=== PATIENT | female | born 1935 | race Caucasian/White ===

== ENCOUNTER 2021-06-10 09:24 | Emergency (ER) | payer MEDICARE, SELFPAY ==
--- NOTE | ~2021-06-10 | XR_ITS ---
EXAMINATION: XR chest 2V DATE: 06/10/2021 09:59 INDICATION: Weakness TECHNIQUE: frontal and lateral views of the chest were obtained. COMPARISON: None FINDINGS: Mild biapical pleural-parenchymal scarring. No focal airspace opacities, pulmonary edema, pleural eff usion or pneumothorax. The cardiomediastinal silhouette is within normal limits accounting for AP larry hnique and mild rightward rotation of the patient. Atherosclerotic aorta. Surgical clip in the upper abdomen. Mild thoracolumbar spondylosis. IMPRESSION: 1. No acute cardiopulmonary disease. Reviewed, dictated and finalized at location B. ECTOR ALUMINUM BOAT
[2021-06-10 09:33] VITALS: PULSE 68; RESP 18; TEMP 36.9; O2SAT 98
--- NOTE | 2021-06-10 09:35 | ECG_ITS ---
Measurements Intervals [place] Rate: 67 P: 86 ID: [id number] QRS: -31 QRSD: 120 T: -78 QT: 411 QTc: 434 Interpretive Statements SINUS RHYTHM WITH FIRST DEGREE AV BLOCK ATRIAL AND VENTRICULAR PREMATURE COMPLEXES LEFT AXIS DEVIATION INTRAVENTRICULAR CONDUCTION DELAY LEFT VENTRICULAR HYPERTROPHY WITH ST-T CHANGE BORDERLINE ST-T WAVE ABNORMALITY- INF/LAT LEADS BASELINE ARTIFACT- V5 ABNORMAL ECG Electronically Signed On 06-10-2021 10:17:43 SHEET METAL ROOFER by Kendrick Frances D.O.
[2021-06-10 09:50] LABS: Basophils Percent Auto 0.8 % (0.2-1.2); Eosinophils Absolute Auto 0.3 K/mm3 (0-0.3); Eosinophils Percent Auto 5.1 % (0-4.4); Hematocrit 40.3 % (37.0-47.0); Hemoglobin 12.7 g/dL (12.0-15.0); Immature Granulocyte Absolute 0.03 K/mm3 (0.00-0.031); Immature Granulocyte Percent A 0.6 % (0-0.5); Lymphocytes Absolute Auto 0.69 K/mm3 (0.9-3.2); Mean Corpuscular HGB Conc 31.5 g/dl (32-36); Mean Corpuscular Hemoglobin 29.1 pg (26-34); Mean Corpuscular Volume 92.4 fl (80-100); Mean Platelet Volume 12.6 fl (7.4-10.4); Monocytes Absolute Auto 0.9 K/mm3 (0.1-0.6); Monocytes Percent Auto 17.8 % (2.6-8.5); Neutrophils Absolute Auto 3.3 K/mm3 (1.3-6.7); Neutrophils Percent Auto 62.7 % (45.5-73.1); Platelet Count Result 138 k/mm3 (150-375); Red Blood Count 4.36 M/mm3 (4.2-5.4); Red Cell Distribution Width 13.7 % (11.5-14.5); White Blood Count 5.3 K/mm3 (4.5-10.0)
[2021-06-10 10:07] LABS: Alanine Aminotransferase 19 U/L (4-35); Albumin Level 4.3 g/dL (3.5-5.1); Alkaline Phosphatase 65 U/L (38-126); Anion Gap 10 mmol/L (8-16); Aspartate Amino Transferase 25 U/L (14-36); Bilirubin,Total 0.3 mg/dL (0.2-1.3); Blood Urea Nitrogen 67 mg/dL (7-17); Calcium 9.6 mg/dL (8.4-10.2); Carbon Dioxide 33 mmol/L (22-30); Chloride 93 mmol/L (98-107); Estimated Glomerular Filt Rate 11; Glucose 94 mg/dL (65-110); Potassium 5.9 mmol/L (3.4-5.0); Sodium 136 mmol/L (137-145)
[2021-06-10 11:56] VITALS: PULSE 70
--- NOTE | 2021-06-10 11:56 | PC.NURSE ---
straight cath performed under sterile technique, well tolerated.
[2021-06-10 12:10] LABS: Add Urine Microscopic? YES; Appearance Urine Clear (Clear); Bilirubin Urine Negative (Negative); Blood Urine Negative (Negative); Color Urine Yellow (Yellow); Glucose Urine UA Negative (Negative); Ketones Urine Negative (Negative); Leukocyte Esterase Ur Negative LEU/UL (Negative); Mucus Urine Rare /lpf; Nitrate Urine Negative (Negative); Protein Urine 1+ mg/dL (Negative); Specific Grav Ur 1.011 (1.001-1.035); Urobilinogen Urine Negative mg/dL (<2.0)
--- NOTE | 2021-06-10 13:49 | PC.NURSE ---
[facility] called and patients appointment was rescheduled for 9 am tomorrow morning. transportation arranged and family notified
--- NOTE | 2021-06-10 14:46 | ED.GENADULT ---
HPI - General Adult General Chief complaint: Weakness Stated complaint: WEAKNESS Time Seen by Provider: 06/10/21 09:29 History of Present Illness HPI narrative: Patient is an 86-year-old female who presents ER from home with generalized weakness and fatigue. Began earlier today. She has not missed any dialysis. No orthopnea. No runny nose or sore throat or productive cough. No loss of taste or smell. Unsure if she has gotten her Covid vaccine. She sees Dr. Quintero who is pastry sous chef at [facility]. She typically gets her dialysis at [facility] in [place]. Related Data Allergies Allergy/AdvReac Type Severity Reaction Status Date / Time No Known Allergies Allergy Verified 06/10/21 09:35 Review of Systems Review of Systems: All systems reviewed & are unremarkable except as noted in HPI and below Constitutional: Constitutional: Denies chills, Reports fatigue, Denies fever(s) and Reports weakness ENT: Denies nasal congestion and Denies sore throat Cardiovascular: Cardiovascular: Denies chest pain and Denies radiating jaw, neck or arm pain Respiratory: Respiratory: Denies cough, Denies dyspnea and Denies wheezing Gastrointestinal: Gastrointestinal: Denies abdominal pain, Denies nausea and Denies vomiting Musculoskeletal: Musculoskeletal: Denies back pain and Denies muscle cramps PMFSH Past Medical History Medical History (Updated 06/10/21 @ 15:01 by Landry Miller MD) Diabetes Dialysis patient HTN (hypertension) Surgical History Surgical History (Updated 06/10/21 @ 14:53 by Landry Miller MD) History of vascular surgery dialysis access LUE Social History Social History (Updated 06/10/21 @ 14:53 by Landry Miller MD) Smoking status: Never smoker Exam Narrative: GENERAL: Frail-appearing, well-nourished, and in no acute distress. HEAD: Normocephalic, atraumatic. ENT: Mucous membranes moist. NECK: Supple. CHEST: Clear to auscultation. No respiratory distress. HEART: Regular rate and rhythm. Normal peripheral pulses. ABDOMEN: Soft, nontender, nondistended EXTREMITIES: Normal range of motion. No edema. SKIN: Warm, dry, no rash. NEURO: Alert and oriented x3. PSYCH: Normal mood and affect. Course Course Emergency Course: Patient up and ambulatory. Unremarkable work-up with exception of some mild hyperkalemia. Discussed case with patient's pastry sous chef at [facility]. He is okay with patient following up for dialysis tomorrow morning at 9 AM. Discussed that elevated potassium, he recommended that Lokelma could be given. This drug is not available at our facility. Will give a dose of kayexalate. Vital Signs Vital signs: Vital Signs Temperature 98.4 F 06/10/21 09:33 Pulse Rate 68 06/10/21 09:33 Respiratory Rate 18 06/10/21 09:33 Pulse Oximetry 98 06/10/21 09:33 Temperature 98.4 F 06/10/21 09:33 Pulse Rate 70 06/10/21 11:56 Respiratory Rate 18 06/10/21 09:33 Pulse Oximetry 98 06/10/21 09:33 Medical Decision Making Vital Signs Vital Signs: Vital Signs Temperature 98.4 F 06/10/21 09:33 Pulse Rate 68 06/10/21 09:33 Respiratory Rate 18 06/10/21 09:33 Pulse Oximetry 98 06/10/21 09:33 Temperature 98.4 F 06/10/21 09:33 Pulse Rate 70 06/10/21 11:56 Respiratory Rate 18 06/10/21 09:33 Pulse Oximetry 98 06/10/21 09:33 Lab Data Result diagrams: 06/10/21 09:45 06/10/21 09:45 Labs: Lab Results 06/10/21 06/10/21 06/10/21 Range/Units 09:45 09:45 11:54 WBC 5.3 (4.5-10.0) K/mm3 RBC 4.36 (4.2-5.4) M/mm3 Hgb 12.7 D (12.0-15.0) g/dL Hct 40.3 (37.0-47.0) % MCV 92.4 (80-100) fl MCH 29.1 (26-34) pg MCHC 31.5 L (32-36) g/dl RDW 13.7 (11.5-14.5) % Plt Count 138 L (150-375) k/mm3 MPV 12.6 H (7.4-10.4) fl Immature Gran % (Auto) 0.6 H (0-0.5) % Neut % (Auto) 62.7 (45.5-73.1) % Lymph % (Auto) 13.0 L (18.3-44.2) % [place] %
[2021-06-10] MEDS: SODIUM POLYSTYRENE SULFONONATE 15 GM/60 ML BTL PO (15:10)
[2021-06-10 15:33] VITALS: BP 142/70; PULSE 76; RESP 18; O2SAT 99
== END 2021-06-10 15:35 | disposition home or self-care (01) ==
PROVIDERS: Emergency Provider Emergency Medicine
DX: R53.1 Weakness (principal); E87.5 Hyperkalemia; I10 Essential (primary) hypertension; E11.9 Type 2 diabetes mellitus without complications; Z99.2 Dependence on renal dialysis; I44.0 Atrioventricular block, first degree; I49.3 Ventricular premature depolarization; I49.1 Atrial premature depolarization; I45.9 Conduction disorder, unspecified; I51.7 Cardiomegaly; R94.31 Abnormal electrocardiogram [ECG] [EKG]
CPT/HCPCS: 36415; 51701; 71046; 80053; 81001; 85025; 93005; 99283; A9270

== ENCOUNTER 2021-06-21 15:34 | Inpatient (IN) | payer MEDICARE, SELFPAY ==
--- NOTE | ~2021-06-21 | XR_ITS ---
EXAMINATION: XR chest 1V portable EXAM DATE: 06/23/2021 13:44 INDICATION: covid TECHNIQUE: Portable AP frontal chest x-ray was obtained. Comparison is made to prior examination from 06/21/2021, 06/10/2021. FINDINGS: Moderate amount of ill-defined right mid and lower lung zone pneumonia, not significantly c hanged compared to 2 days ago, but progressed compared to 06/10. The lungs are otherwise clear. No pneu mothorax or pleural effusion. Cardiomediastinal silhouette is normal. The bones are osteopenic. Ther e are bony degenerative changes. IMPRESSION: Moderate amount of ill-defined right-sided pneumonia unchanged. Reviewed, dictated and finalized at location B. AND DAM OPERATOR
--- NOTE | ~2021-06-21 | XR_ITS ---
EXAMINATION: XR chest 1V portable DATE: 06/21/2021 22:44 INDICATION: Shortness of breath. COVID-19 pneumonia. TECHNIQUE: A single frontal view of the chest was obtained. COMPARISON: Chest 2 views 06/10/2021 FINDINGS: There are airspace opacities in right mid and lower lung zones. No pleural effusion or pneu mothorax. The heart size is normal. IMPRESSION: 1. Worsened airspace opacities in right mid and lower lung zones, consistent with pneumonia. Reviewed, dictated and finalized at location A. GER ACCOUNT MANAGEMENT IMPRESSION: 1. Worsened airspace opacities in right mid and lower lung zones, consistent wi th pneumonia.
--- NOTE | ~2021-06-21 | CT_ITS ---
EXAMINATION: CT brain wo con DATE: 06/22/2021 13:18 INDICATION: Altered mental status TECHNIQUE: Computed tomography (CT) of the head was performed without intravenous contrast. Sagittal and coronal reconstructions were performed. The mA was adjusted according to patient size. Iterative reconstruction technique was employed. The dose-length product was 605.33 mGy-cm. COMPARISON: None FINDINGS: No acute intracranial hemorrhage, acute infarction or abnormal extra axial fluid collection. There is mild scattered white matter hypoattenuation consistent with chronic small vessel ischemic disease. S ymmetric prominence of the sulci consistent with mild age-appropriate diffuse cerebral volume loss. V entricles are normal and symmetric. No mass/mass effect. Mild mucosal thickening throughout the paran benito sinuses with small amount of dependently layering mucus/fluid in the bilateral sphenoid sinuses. Changes of bilateral intraocular lens replacement. The orbits and mastoid air cells are normal. Hyp erostosis frontalis. IMPRESSION: 1. No acute intracranial process. 2. Age-related changes including mild diffuse volume loss and mild scattered white matter hypoattenua tion consistent with chronic small vessel ischemic disease. Reviewed, dictated and finalized at location A. BACK IMPRESSION: 1. No acute intracranial process. 2. Age-related changes including mild diffuse volume loss and mild scattered wh ite matter hypoattenuation consistent with chronic small vessel ischemic diseas e.
--- NOTE | ~2021-06-21 | MR_ITS ---
EXAMINATION: MR brain/brain stem wo con DATE: 06/23/2021 18:56 INDICATION: Confusion TECHNIQUE: Magnetic resonance imaging (MRI) of the brain and brainstem was performed without intraven ous contrast. Sequences included sagittal and axial T1-weighted SE, axial diffusion-weighted FS SE, a xial T2*-weighted GRE, axial T2-weighted FLAIR, and axial T2-weighted FSE. Apparent diffusion coeffic ient (ADC) maps were created. COMPARISON: Head CT dated 06/22/2021 FINDINGS: There are no areas of restricted diffusion to suggest acute infarction. No intracranial hemorrhage or abnormal intracranial mass lesion. There are scattered areas of nonspecific increased T2-weighted si gnal intensity in the cerebral white matter, predominantly involving the deep and periventricular whi te matter. There are no intraparenchymal signal abnormalities seen on the other pulse sequences. Symm etric prominence of the sulci consistent with mild age-appropriate diffuse cerebral volume loss. The ventricles are symmetric and normal in size. There are no abnormal extra-axial fluid collections. No abnormal masses identified. Absent left vertebral artery flow-void on the T2-weighted sequences whic h could be seen with either occlusion or slow flow. A flow-void is present within the right vertebral and basilar arteries as well as the remainder of the larger visualized cerebral arteries. Mucosal th ickening throughout the paranasal sinuses most prominent in the ethmoid sinuses. Changes of bilateral intraocular lens replacement. Hyperostosis frontalis. IMPRESSION: 1. No acute intracranial process. 2. Absent flow void in the left vertebral artery consistent with either occlusion or slow flow. 3. Age-related changes including mild diffuse volume loss and mild periventricular predominant white matter T2 hyperintensity consistent with chronic small vessel ischemic disease. Reviewed, dictated and finalized at location A. ARINE ADVISORY TEAM WATCH OFFICER IMPRESSION: 1. No acute intracranial process. 2. Absent flow void in the left vertebral artery consistent with either occlusi on or slow flow. 3. Age-related changes including mild diffuse volume loss and mild periventricu lar predominant white matter T2 hyperintensity consistent with chronic small ve ssel ischemic disease.
--- NOTE | ~2021-06-21 | US_ITS ---
EXAMINATION: US right upper quadrant EXAM DATE: 06/22/2021 13:39 INDICATION: Upper abdominal pain. TECHNIQUE: Multiple grayscale and Doppler images of the abdomen right upper quadrant were obtained (b y a technologist who performed the scan) and subsequently reviewed. There is no prior study for elliott anders. FINDINGS: The pancreatic head and body are normal in appearance. The pancreatic tail is not visualized. The l iver has normal echogenicity and contour. There is a 1.4 cm liver cyst. There is no evidence of int rahepatic biliary duct dilation. Portal venous flow was seen in the hepatopedal, normal direction an d has normal Doppler waveform. No right-sided hydronephrosis. Common bile duct measures 5 mm, which is normal. The gallbladder wall is normal in thickness, with ex pected amount of distention. No sonographic evidence of pericholecystic fluid. There is cholelithia sis. Technologist performing exam reports patient did not demonstrate sonographic Cortez's sign. P teresa note that this sign is less reliable in patients who have received pain medication. IMPRESSION: Unremarkable abdominal ultrasound exam. Reviewed, dictated and finalized at location G. RNAL CONTROLS SPECIALIST
[2021-06-21 16:29] VITALS: BP 144/64; PULSE 84; RESP 20; TEMP 36.8; O2SAT 98
--- NOTE | 2021-06-21 18:54 | PC.NURSE ---
Amy ([facility]) [phone]
[2021-06-21 19:42] VITALS: BP 171/44; PULSE 90; TEMP 36.8; O2SAT 93
[2021-06-21 22:08] VITALS: BP 201/63; PULSE 88; RESP 24; O2SAT 98
[2021-06-21 22:09] VITALS: PULSE 88; RESP 25; O2SAT 100
--- NOTE | 2021-06-21 22:10 | ECG_ITS ---
Measurements Intervals [place] Rate: 83 P: DC: 0 QRS: -28 QRSD: 122 T: 150 QT: 415 QTc: 490 Interpretive Statements SINUS RHYTHM ATRIAL PREMATURE COMPLEXES INTRAVENTRICULAR CONDUCTION DELAY LEFT VENTRICULAR HYPERTROPHY WITH ST-T CHANGE CANNOT RULE OUT SEPTAL INFARCT, AGE INDETERMINATE BASELINE ARTIFACT- I, II, III, AVR, AVF, V1-V6 ABNORMAL ECG Electronically Signed On 06-22-2021 6:42:06 TAXICAB COORDINATOR by Kendrick Frances D.O.
[2021-06-21 22:59] LABS: Basophils Percent Auto 0.2 % (0.2-1.2); Eosinophils Absolute Auto 0.1 K/mm3 (0-0.3); Eosinophils Percent Auto 1.1 % (0-4.4); Hematocrit 40.4 % (37.0-47.0); Hemoglobin 12.2 g/dL (12.0-15.0); Immature Granulocyte Absolute 0.08 K/mm3 (0.00-0.031); Immature Granulocyte Percent A 0.9 % (0-0.5); Lymphocytes Absolute Auto 0.65 K/mm3 (0.9-3.2); Lymphocytes Percent Auto 7.1 % (18.3-44.2); Mean Corpuscular HGB Conc 30.2 g/dl (32-36); Mean Corpuscular Hemoglobin 28.3 pg (26-34); Mean Corpuscular Volume 93.7 fl (80-100); Mean Platelet Volume 11.5 fl (7.4-10.4); Monocytes Absolute Auto 0.8 K/mm3 (0.1-0.6); Monocytes Percent Auto 9.1 % (2.6-8.5); Neutrophils Absolute Auto 7.4 K/mm3 (1.3-6.7); Neutrophils Percent Auto 81.6 % (45.5-73.1); Platelet Count Result 222 k/mm3 (150-375); Red Blood Count 4.31 M/mm3 (4.2-5.4); Red Cell Distribution Width 14.1 % (11.5-14.5); White Blood Count 9.1 K/mm3 (4.5-10.0)
[2021-06-21 23:13] LABS: Partial Thromboplastin Time 23.8 SECONDS (22.3-36.8); Prothrombin Time 13.5 Seconds (11.1-14.7)
[2021-06-21 23:14] LABS: Alanine Aminotransferase 14 U/L (4-35); Alkaline Phosphatase 65 U/L (38-126); Anion Gap 13 mmol/L (8-16); Aspartate Amino Transferase 25 U/L (14-36); Bilirubin,Total 0.6 mg/dL (0.2-1.3); Blood Urea Nitrogen 69 mg/dL (7-17); Calcium 9.1 mg/dL (8.4-10.2); Carbon Dioxide 30 mmol/L (22-30); Chloride 98 mmol/L (98-107); Estimated CRCL calculation 8 ml/min; Estimated Glomerular Filt Rate 10; Glucose 103 mg/dL (65-110); Potassium 4.6 mmol/L (3.4-5.0); Sodium 141 mmol/L (137-145)
[2021-06-21 23:19] LABS: NT Pro B Type Natriuretic Pept 13700 pg/mL (5-100)
[2021-06-21 23:35] VITALS: PULSE 82; RESP 20; O2SAT 100
--- NOTE | 2021-06-21 23:43 | PM.IMHP ---
H&P: HPI History of Present Illness Date/Time: 06/21/21 23:43 Chief Complaint: Weakness Narrative: This is an 86-year-old female with past medical history significant for end-stage renal disease on hemodialysis, hypertension, GERD. Patient was brought for evaluation to the emergency room due to generalized weakness also patient had missed her dialysis treatment. At the time of my visit patient was unable to give any history. Patient recently had been diagnosed with COVID pneumonia. Patient had an earlier trip to emergency room in the half june for weakness as well at that time she was found to have elevated potassium and patient was discussed with her filler shaker decision at the time was to discharge the patient home from the emergency room and dialysis as needed. Preliminary workup in emergency room was significant for chest x-ray with worsening opacities of the right lung. Decision has been made to admit the patient for further evaluation ,management and treatment. Review of Systems Review of Systems: ROS unobtainable: Yes unobtainable due to mental status (Patient is delirious) [facility] Past Medical History Medical History (Updated 06/22/21 @ 04:35 by Temitope Oneill MD) Diabetes Dialysis patient HTN (hypertension) Surgical History Surgical History (Updated 06/10/21 @ 14:53 by Landry Miller MD) History of vascular surgery dialysis access LUE Social History Social History (Updated 06/10/21 @ 14:53 by Landry Miller MD) Smoking status: Never smoker Meds Home Medications and Allergies Home Medications Medication Instructions Recorded Confirmed Type atorvastatin 06/22/21 History clonidine HCl 0.1 mg PO TID 06/22/21 History ergocalciferol (vitamin D2) 06/22/21 History furosemide 40 mg PO DAILY 06/22/21 History isosorbide mononitrate 30 mg PO DAILY 06/22/21 History levothyroxine [Synthroid] 06/22/21 History pantoprazole PO 06/22/21 History spironolactone 12.5 mg PO DAILY 06/22/21 History Allergies Allergy/AdvReac Type Severity Reaction Status Date / Time No Known Allergies Allergy Verified 06/10/21 09:35 Vital Signs Vital Signs - 24 hr 06/21/21 16:29 06/21/21 19:42 06/21/21 22:08 Temperature 98.3 F 98.3 F Pulse Rate 84 90 88 Respiratory Rate 20 24 H Blood Pressure 144/64 H 171/44 H 201/63 H Pulse Oximetry 98 93 98 06/21/21 22:09 06/21/21 23:35 Temperature Pulse Rate 88 82 Respiratory Rate 25 H 20 Blood Pressure Pulse Oximetry 100 100 Exam Narrative: Laying in [facility] Const: General: cooperative, comfortable, no acute distress, well developed, alert, awake and ill appearing chronically Nutritional Appearance: average body habitus Orientation/consciousness: oriented to person HENMT: Head: normal to inspection, normocephalic and atraumatic Ears: hearing grossly normal bilaterally General nose exam: Normal external nose present Face and sinus: normal facial exam Mouth: Yes dry mucous membranes Eyes: General: appearance normal, both eyes and all related structures Alignment and Position: alignment normal Sclera: sclerae normal Pupils: Equal, round and reactive pupils present EOM: EOMs intact bilaterally Neck: Neck: normal visual inspection, full ROM, no lymphadenopathy, supple and no JVD Thyroid: thyroid normal Lymphatic: no lymphadenopathy noted Resp: Effort & Inspection: normal respiratory effort and able to speak in complete sentences Auscultation: clear to auscultation bilaterally, no crackles, no rales, no rhonchi and no wheezes Cardio: Jugular venous distension: no JVD Rate: regular rate Rhythm: regular rhythm Heart sounds: S1 normal heart sound present and S2 normal heart sound present GI: Inspection: normal to inspection GI Palp: Yes Soft to palpation, No Tenderness to palpation present (GI), No Guarding due to palpation present (GI), Yes No hepatosplenomegaly present and No Rebound tenderness present : General: Yes defe
--- NOTE | 2021-06-21 23:47 | ED.WEAKNESS ---
HPI - Weakness General Chief complaint: Weakness Stated complaint: covid +, needs dialysis, weak Time Seen by Provider: 06/21/21 22:10 History of Present Illness HPI Narrative: Patient is an 86-year-old female with history of ESRD who is dialysis dependent and gets dialysis on Sunday that presents the ER with shortness of breath. Family sent here because she missed dialysis yesterday. Patient is oriented x3 but can give no history as to why she is here or what her symptoms are. She denies any pain at this time. She continues to wear her home 3 L of oxygen. Patient was sent here by her family previously this month for dialysis as well. There is concern that she may not be getting all the care she requires at home Related Data Home Medications Medication Instructions Recorded Confirmed atorvastatin 20 mg PO DAILY 06/22/21 06/22/21 clonidine HCl 0.1 mg PO TID 06/22/21 06/22/21 ergocalciferol (vitamin D2) 50,000 unit PO WEEKLY 06/22/21 06/22/21 ferrous [id number] conc 1 cap PO DAILY 06/22/21 06/22/21 [Iron Complex/C/B12] furosemide 40 mg PO DAILY 06/22/21 06/22/21 insulin detemir U-100 [Levemir 15 unit SUBCUT HS 06/22/21 06/22/21 FlexTouch U-100 Insuln] isosorbide mononitrate 30 mg PO DAILY 06/22/21 06/22/21 latanoprost 1 drp EACH EYE DAILY 06/22/21 06/22/21 levothyroxine [Synthroid] 150 mcg PO DAILY 06/22/21 06/22/21 pantoprazole 40 mg PO DAILY 06/22/21 06/22/21 spironolactone 12.5 mg PO DAILY 06/22/21 06/22/21 Allergies Allergy/AdvReac Type Severity Reaction Status Date / Time No Known Allergies Allergy Verified 06/10/21 09:35 Review of Systems Review of Systems: ROS unobtainable: Yes unobtainable due to mental status PMFSH Past Medical History Medical History (Updated 06/22/21 @ 07:21 by Ambrose Diaz MD) Diabetes Dialysis patient Erythropoietin deficiency anemia HTN (hypertension) Renal osteodystrophy Surgical History Surgical History History of vascular surgery dialysis access LUE Social History Social History Smoking status: Never smoker Alcohol intake: never Substance use: never Substance use type: does not use Spiritual care concerns: No Exam Narrative: GENERAL: Chronically ill-appearing, well-nourished, and in no acute distress. HEAD: Normocephalic, atraumatic. EYES: PERRL and EOMI. NECK: Supple. CHEST: Clear to auscultation. No respiratory distress. HEART: Irregular regular rate and rhythm. Normal peripheral pulses. ABDOMEN: Soft, nontender, nondistended. EXTREMITIES: Normal range of motion. No edema. SKIN: Warm, dry, no rash. NEURO: No focal deficits. Alert and oriented x2-3 but cannot give a history. Course Course Emergency Course: Discussed with hospitalist. Admitted for observation. Will start on IV antibiotics given developing pneumonia on right side. May be bacterial as opposed to being related to COVID-19. Patient will need dialysis tomorrow since she missed it yesterday. Vital Signs Vital signs: Vital Signs Temperature 98.3 F 06/21/21 16:29 Pulse Rate 84 06/21/21 16:29 Respiratory Rate 20 06/21/21 16:29 Blood Pressure 144/64 H 06/21/21 16:29 Pulse Oximetry 98 06/21/21 16:29 Temperature 97.4 F L 06/22/21 05:45 Pulse Rate 81 06/22/21 05:45 Respiratory Rate 16 06/22/21 05:45 Blood Pressure 153/74 H 06/22/21 05:45 Pulse Oximetry 100 06/22/21 06:00 MDM - Weakness Lab Data Result diagrams: 06/21/21 22:52 06/21/21 22:52 Labs: Lab Results 06/21/21 06/21/21 06/21/21 Range/Units 22:52 22:52 22:52 WBC 9.1 (4.5-10.0) K/mm3 RBC 4.31 (4.2-5.4) M/mm3 Hgb 12.2 (12.0-15.0) g/dL Hct 40.4 (37.0-47.0) % MCV 93.7 (80-100) fl MCH 28.3 (26-34) pg MCHC 30.2 L (32-36) g/dl RDW 14.1 (11.5-14.5) % Plt Count 222 D (150-37
[2021-06-21 23:58] VITALS: BP 178/69; PULSE 81; RESP 20; O2SAT 100
[2021-06-22] VITALS (31 sets, daily range): BP systolic 102–192; BP diastolic 46–84; PULSE 68–97; RESP 16–24; TEMP 35.2–37; O2SAT 83–100; BMI 25.2
--- NOTE | 2021-06-22 01:30 | PC.NURSE ---
Pt 83% on 4L O2, placed on 6 L O2 w/ no improvement. EDP made aware and pt placed on 15L NRB.
--- NOTE | 2021-06-22 04:16 | PC.NURSE ---
Pt repositioned upright, placed on 5 L NC O2 (taken off NRB mask), remains 99% at this time.
--- NOTE | 2021-06-22 06:04 | ADMGEN ---
This patient, Sofía Contreras, was admitted to IMU Room 204-01. Patient/family oriented to hospital policies and general routines including ID bracelet, bed and alarms, visiting hours, pain management, procedures, bathroom and other care routines, personal items, smoking policy, room service/diet, and visiting hours. Information on how to activate the Rapid Response Team has been discussed. Patient/Family are encouraged to report perceived risks to care and to ask questions if they do not understand what they are told or what they should do.
--- NOTE | 2021-06-22 07:16 | PM.CNNEP ---
Assessment and Plan Assessment and plan (1) ESRD on dialysis: Code(s): N18.6 - End stage renal disease; Z99.2 - Dependence on renal dialysis Status: Acute Assessment and Plan: The patient has end-stage renal disease. Because she gets dialysis 3 times a week she is due today. I am not sure what her usual schedule is. She has dialysis a [facility]. Will try to get some info. Will dialyze her today. Her chest x-ray shows pneumonia. There may be a fluid component as well. Her blood pressure is generous. We will try to take some fluid off in dialysis. Her potassium is actually pretty good at 4.6. (2) COVID-19: Code(s): U07.1 - COVID-19 Status: Acute Assessment and Plan: The patient has symptoms from this. The patient will be managed by the hospitalist for this. In case there is other pneumonia as well she is on a is a through my sin and vancomycin as well as cefepime (3) Altered mental status: Code(s): R41.82 - Altered mental status, unspecified Status: Acute Assessment and Plan: most likely due to the COVID. (4) Erythropoietin deficiency anemia: Code(s): D63.1 - Anemia in chronic kidney disease Status: Acute Assessment and Plan: Her hemoglobin is okay right now. No need for EPO right now. (5) HTN (hypertension): Code(s): I10 - Essential (primary) hypertension Status: Inactive Assessment and Plan: Blood pressure is a bit generous. Will remove fluid right now. She is on clonidine at home. (6) Renal osteodystrophy: Code(s): N25.0 - Renal osteodystrophy Status: Acute Assessment and Plan: Will check a phosphorus tomorrow (7) Diabetes: Code(s): E11.9 - Type 2 diabetes mellitus without complications Status: Inactive Assessment and Plan: Managed per hospitalist History of Present Illness Reason for Consult Consult date: 06/22/21 Chief Complaint Chief complaint: pneumonia, esrd needind dialysis, confusion History of Present Illness Narrative: Sofía is a unfortunate 86-year-old lady who has multiple medical problems including end-stage renal disease on dialysis 3 times a week, hypertension, diabetes, GERD, renal osteodystrophy, anemia of chronic dialysis are chronic kidney disease. She gets her dialysis under Dr. Quintero at [facility]. The patient came to the ER earlier this month with weakness and her potassium was high. She was treated for this and was discharged. She came back in again yesterday because of weakness and shortness of breath with a cough. She had a fever. She was seen in the emergency room what is again. This time she was swabbed and found to have COVID says she was admitted. She has not had dialysis treatment lately that she knows of. She does have a cough and shortness of breath. She is very weak. She does not really know how long this has been going on. She does not know who her kidney doctor is, I get that from the chart. She does not remember where she gets dialysis. She is very ill and does not answer questions very well. She could not give me much in the way of review of systems. She says she does not smoke or drink. Review of Systems Review of Systems: ROS unobtainable: Yes unobtainable due to medical condition [facility] Past Medical History Medical History (Updated 06/22/21 @ 07:21 by Ambrose Diaz MD) Diabetes Dialysis patient Erythropoietin deficiency anemia HTN (hypertension) Renal osteodystrophy Surgical History Surgical History History of vascular surgery dialysis access LUE Social History Social History Smoking status: Never smoker Alcohol intake: never Substance use: never Substance use type: does not use Spiritual care concerns: No Meds Home Medications and Allergies Home Medications M
[2021-06-22 10:17] LABS: Thyroid Stimulating Hormone Reflex 0.112 uIU/mL (0.465-4.68)
--- NOTE | 2021-06-22 10:45 | PM.IMPN ---
Progress Note: A&P Assessment and Plan (1) Pneumonia: Code(s): J18.9 - Pneumonia, unspecified organism Status: Acute Assessment and Plan: Patient seen here in the ED on 06/10/21 for weakness and CXR was clear at that time. She returns for shortness of breath. CXR now showing airspace opacities in right mid and lower lung zones. WBC normal and no fevers. This may be related to COVID. Unclear if she was recently diagnosed with COVID. The ED notes state She continues to wear her home 3 L of oxygen. so could be at baseline O2 requirement. She received Rocephin and Zithromax in ED but changed to cefepime, vancomycin and Zithromax. BCx pending. Check sputum and urine Ag. (2) Altered mental status: Code(s): R41.82 - Altered mental status, unspecified Status: Acute Assessment and Plan: Patient is awake but mildly obtunded and [place]. No focal findings. Will check CT brain. TSH noted. Follow up on FT4. Check ammonia level and B12. LFTs okay but with RUQ pain . Will check US. COVID itself can cause mental status changes. Continue supportive care. (3) COVID-19: Code(s): U07.1 - COVID-19 Status: Acute Assessment and Plan: It states patient tested positive for COVID but not sure when and where. No family contact in the chart. Nephrology plans to contact the HD unit to obtain more information. May need to retest if diagnosis is in questions. Start steroids if diagnosis can be verified. (4) ESRD on dialysis: Code(s): N18.6 - End stage renal disease; Z99.2 - Dependence on renal dialysis Status: Chronic Assessment and Plan: Patient has ESRD with HD via left fistula at [facility] in [place] on . Patient missed dialysis on 06/20/21. HD planned for today to get her back on routine. Nephrology has been consulted for hemodialysis and appreciate their input. (5) DVT prophylaxis: Code(s): Z29.9 - Encounter for prophylactic measures, unspecified Status: Acute Assessment and Plan: heparin Subjective Date/time seen: 06/22/21 10:45 Interval history: 86yo female with ESRD, DM and HTN here for shortness of breath. She has HD Mo-- at [facility] in [place]. She missed HD on 06/20/21. Patient is alert but confused. SHe appears to be [place] as well. Her hx is suspect but she has a productive cough of yellowish sputum. No family listed to call for more information. Review of Systems Review of Systems: ROS unobtainable: Yes unobtainable due to mental status Exam Narrative: AF 98.1 170/71 93 18 95% 3L NC Gen - NARD Chest - inspiratory crackles mid and lower lung mcdonald, nml RR CV - RRR S1/S2; Tele showing no significant dysrhythmia. Abd - Soft, ND, RUQ tenderness, +BS Ext - No pedal edema, 2+ DP bilaterally. Left fistula thrill and bruit. Neuro - Awake but obtunded. Aware that she is in the hospital (but not sure of name) and year but not month or mook name. No focal weakness. She follows commands. Psych - flat affect Skin - Warm and dry Objective Data Vital Signs Vital Signs: Vital Signs - 24 hr 06/21/21 16:29 06/21/21 19:42 06/21/21 22:08 Temperature 98.3 F 98.3 F Pulse Rate 84 90 88 Respiratory Rate 20 24 H Blood Pressure 144/64 H 171/44 H 201/63 H Pulse Oximetry 98 93 98 06/21/21 22:09 06/21/21 23:35 06/21/21 23:58 Temperature Pulse Rate 88 82 81 Respiratory Rate 25 H 20 20 Blood Pressure 178/69 H Pulse Oximetry 100 100 100 06/22/21 00:40 06/22/21 01:35 06/22/21 01:48 Temperature Pulse Rate 77 75 Respiratory Rate 23 H 22 H Blood Pressure 189/50 H 170/84 H Pulse Oximetry 98 83 L 100 06/22/21 02:39 06/22/21 04:15 06/22/21 04:53 Temperature Pulse Rate 81 81 69 Respiratory Rate 23 H 20 19 Blood Pressure 192/60 H 175/55 H 168/62 H Pulse Oximetry 99 98 97 06/22/21 05:34 06/22/21 05:45 06/22/21 06:00 Temperature 97.4 F L Pulse Rate 68 81 Respiratory Rate 17 16 Blood Pressure 165/55 H 153/7
--- NOTE | 2021-06-22 12:59 | PM.EVENT ---
Event Note Event Note Event Note: Pt on HD yulissa it well. seen at noon
[2021-06-22] MEDS: ATORVASTATIN 20 MG TABLET PO (14:04)
[2021-06-22] MEDS: ISOSORBIDE MONONITRATE 30 MG TAB.ER.24H PO (14:04)
[2021-06-22] MEDS: HEPARIN SODIUM 5,000 UNITS/ML VIAL 5000 UNITS SUB-Q ×2 (14:04→20:47)
[2021-06-22] MEDS: SPIRONOLACTONE 12.5 MG TABLET PO (14:04)
[2021-06-22] MEDS: FUROSEMIDE 40 MG TABLET PO (14:04)
[2021-06-22] MEDS: LATANOPROST 0.005% OP SOLN 2.5 ML BTL 1 DROP EACH EYE (14:05)
[2021-06-22] MEDS: PANTOPRAZOLE 40 MG TABLET PO (14:05)
[2021-06-22 15:49] LABS: Ammonia < 9 umol/L (9-30)
[2021-06-22 16:11] LABS: Vancomycin Random 9.4 ug/mL (10-20)
[2021-06-22 16:38] LABS: Hepatitis B Surface Antigen Negative (Negative)
[2021-06-22 16:55] LABS: Hepatitis B Surface Anti Res Negative
[2021-06-22 17:57] LABS: Vitamin B12 > 1000.0 pg/mL (239-931)
[2021-06-22] MEDS: CEFEPIME 0.5 GM in DEXTROSE 5% IN WATER 50 ML IVPB (20:39)
[2021-06-22] MEDS: INSULIN GLARGINE (*BKC) 100 UNITS/ML 15 UNITS SUB-Q (20:47)
[2021-06-22 22:44] LABS: Glucose Point of Care 171 mg/dl (65-105)
[2021-06-22 23:18] LABS: Folic Acid > 20.0 ng/mL (2.76->20)
[2021-06-23] VITALS (13 sets, daily range): BP systolic 155–186; BP diastolic 55–64; PULSE 76–99; RESP 16–20; TEMP 36.2–37.3; O2SAT 88–99
[2021-06-23 05:29] LABS: Basophils Percent Auto 0.3 % (0.2-1.2); Eosinophils Absolute Auto 0.2 K/mm3 (0-0.3); Eosinophils Percent Auto 3.1 % (0-4.4); Hematocrit 39.4 % (37.0-47.0); Hemoglobin 12.2 g/dL (12.0-15.0); Immature Granulocyte Absolute 0.11 K/mm3 (0.00-0.031); Immature Granulocyte Percent A 1.7 % (0-0.5); Lymphocytes Absolute Auto 0.65 K/mm3 (0.9-3.2); Lymphocytes Percent Auto 10.1 % (18.3-44.2); Mean Corpuscular Hemoglobin 28.3 pg (26-34); Mean Corpuscular Volume 91.4 fl (80-100); Mean Platelet Volume 11.2 fl (7.4-10.4); Monocytes Absolute Auto 0.7 K/mm3 (0.1-0.6); Monocytes Percent Auto 10.7 % (2.6-8.5); Neutrophils Absolute Auto 4.8 K/mm3 (1.3-6.7); Neutrophils Percent Auto 74.1 % (45.5-73.1); Platelet Count Result 244 k/mm3 (150-375); Red Blood Count 4.31 M/mm3 (4.2-5.4); Red Cell Distribution Width 13.5 % (11.5-14.5); White Blood Count 6.5 K/mm3 (4.5-10.0)
[2021-06-23 05:46] LABS: Alanine Aminotransferase 12 U/L (4-35); Albumin Level 3.9 g/dL (3.5-5.1); Alkaline Phosphatase 68 U/L (38-126); Anion Gap 13 mmol/L (8-16); Aspartate Amino Transferase 24 U/L (14-36); Bilirubin,Total 0.7 mg/dL (0.2-1.3); Blood Urea Nitrogen 40 mg/dL (7-17); Calcium 9.2 mg/dL (8.4-10.2); Carbon Dioxide 30 mmol/L (22-30); Chloride 94 mmol/L (98-107); Estimated CRCL calculation 9 ml/min; Estimated Glomerular Filt Rate 13; Glucose 83 mg/dL (65-110); Magnesium 1.9 mg/dL (1.6-2.3); Phosphorus 4.4 mg/dL (2.5-4.5); Potassium 4.4 mmol/L (3.4-5.0); Sodium 137 mmol/L (137-145)
[2021-06-23] MEDS: LEVOTHYROXINE SODIUM 150 MCG TABLET PO (06:02)
[2021-06-23 08:18] LABS: Glucose Point of Care 89 mg/dl (65-105)
[2021-06-23] MEDS: PANTOPRAZOLE 40 MG TABLET PO (08:26)
[2021-06-23] MEDS: LATANOPROST 0.005% OP SOLN 2.5 ML BTL 1 DROP EACH EYE (08:26)
[2021-06-23] MEDS: FUROSEMIDE 40 MG TABLET PO (08:26)
[2021-06-23] MEDS: HEPARIN SODIUM 5,000 UNITS/ML VIAL 5000 UNITS SUB-Q ×2 (08:26→22:22)
[2021-06-23] MEDS: ISOSORBIDE MONONITRATE 30 MG TAB.ER.24H PO (08:26)
[2021-06-23] MEDS: SPIRONOLACTONE 12.5 MG TABLET PO (08:27)
[2021-06-23] MEDS: ATORVASTATIN 20 MG TABLET PO (08:27)
--- NOTE | 2021-06-23 10:48 | PM.IMPN ---
Progress Note: A&P Assessment and Plan (1) Pneumonia: Code(s): J18.9 - Pneumonia, unspecified organism Status: Acute Assessment and Plan: Patient seen here in the ED on 06/10/21 for weakness and CXR was clear at that time. She returns for shortness of breath. CXR now showing airspace opacities in right mid and lower lung zones. WBC normal and no fevers. This may be related to COVID and/or fluid overload (she has missed multiple HD treatments). She was recently diagnosed with COVID but will need this verified. She received Rocephin and Zithromax in ED but changed to cefepime, vancomycin and Zithromax. BCx NGTD. Sputum and urine Ag pending. Continue IV abx for now. (2) Altered mental status: Code(s): R41.82 - Altered mental status, unspecified Status: Acute Assessment and Plan: Patient is awake but mildly obtunded and [place]. No focal findings. CT brain showing no acute findings. TSH slightly low but FT4 normal. Ammonia, Folate and B12 level normal. LFTs okay. patient with RUQ pain yesterday but better today. RUQ US normal. COVID itself can cause mental status changes but sounds as if patient with progressive decline in cognitive function consistent with dementia. Continue supportive care. Check MR brain. Check UA (3) COVID-19: Code(s): U07.1 - COVID-19 Status: Acute Assessment and Plan: Patient tested positive for COVID at HD on 06/15 (family notifed on 06/17). She had a severe case requiring intubation and prolonged hospital course in May 2020. She has not been vaccinated since she has recovered. Consider steroids but patient at baseline O2. Her CXR on admission showing worsened airspace opacities in right mid and lower lung zones but could be bacterial PNA, COVID and/or fluid overload from missed HD. Son did mention he had to increase her O2 at home prior to admission. Will verify diagnosis of COVID and repeat CXR. (4) Chronic respiratory failure with hypoxia: Code(s): J96.11 - Chronic respiratory failure with hypoxia Status: Acute Assessment and Plan: Patient normally on 3L O2 at home and she currently at baseline. Follow. (5) ESRD on dialysis: Code(s): N18.6 - End stage renal disease; Z99.2 - Dependence on renal dialysis Status: Chronic Assessment and Plan: Patient has ESRD with HD via left fistula at [facility] on . She had CKD but developed severe COVID PNA with worsening renal failure to the point of requirinig HD in May 2020. Patient diagnosed with COVID and she missed dialysis on 06/17/21 and 06/20/21. HD yesterday with 1400mL removed. Nephrology following and appreciate their input. (6) COPD (chronic obstructive pulmonary disease): Code(s): J44.9 - Chronic obstructive pulmonary disease, unspecified Status: Acute Assessment and Plan: Patient has COPD per family. She has chronic respiratory failure as well related to COPD. No wheezing. Continue to follow. (7) HTN (hypertension): Code(s): I10 - Essential (primary) hypertension Status: Acute Assessment and Plan: Patient's blood pressure was reviewed on 06/23 Blood pressure more elevated today. Will continue current medications. Add back clonidine. (8) Diabetes: Code(s): E11.9 - Type 2 diabetes mellitus without complications Status: Chronic Assessment and Plan: The patient's blood glucose was reviewed on 06/23 Glucose remains well controlled. Start AccuCheks covering with sliding scale. Hypoglycemia protocol will be available as needed. Will hold lantus for now. (9) DVT prophylaxis: Code(s): Z29.9 - Encounter for prophylactic measures, unspecified Status: Acute Assessment and Plan: Heparin Subjective Date/time seen: 06/23/21 10:48 Interval history: 86yo female with ESRD, DM and HTN here for shortness of breath. She has HD at [facility] in [place]. She mis
[2021-06-23 11:34] LABS: Lipase 199 U/L (23-300)
[2021-06-23 11:37] LABS: Rapid Plasma Reagin Non-Reactive (NonReactive)
[2021-06-23 12:19] LABS: Glucose Point of Care 113 mg/dl (65-105)
[2021-06-23] MEDS: cloNIDine HCL 0.1 MG TABLET PO ×2 (12:30→16:27)
--- NOTE | 2021-06-23 12:34 | PM.PNNEP ---
Progress Note: A&P Assessment and Plan (1) ESRD on dialysis: Code(s): N18.6 - End stage renal disease; Z99.2 - Dependence on renal dialysis Status: Acute Assessment and Plan: The patient has end-stage renal disease. According to [place], The patient had not been to dialysis for the last week before she came in the hospital. she had dialysis yesterday. We will do another treatment tomorrow. (2) COVID-19: Code(s): U07.1 - COVID-19 Status: Acute Assessment and Plan: The patient has symptoms from this. The patient will be managed by the hospitalist for this. In case there is other pneumonia as well she is on Zithromax, vancomycin, and cefepime (3) Altered mental status: Code(s): R41.82 - Altered mental status, unspecified Status: Acute Assessment and Plan: most likely due to the COVID. (4) Erythropoietin deficiency anemia: Code(s): D63.1 - Anemia in chronic kidney disease Status: Acute Assessment and Plan: Her hemoglobin is okay right now. No need for EPO right now. (5) HTN (hypertension): Code(s): I10 - Essential (primary) hypertension Status: Acute Assessment and Plan: Blood pressure is a bit generous. Will remove fluid right now. She is on clonidine at home. (6) Renal osteodystrophy: Code(s): N25.0 - Renal osteodystrophy Status: Acute Assessment and Plan: phosphorus is good (7) Diabetes: Code(s): E11.9 - Type 2 diabetes mellitus without complications Status: Acute Assessment and Plan: Managed per hospitalist Subjective Date/time seen: 06/23/21 12:34 Interval history: patient is comfortable in bed. Dialysis went pretty well yesterday. Review of Systems Cardiovascular: Cardiovascular: Reports no additional cardiovascular complaints Respiratory: Respiratory: Reports no additional respiratory complaints Gastrointestinal: Gastrointestinal: Reports no additional gastrointestinal complaints Genitourinary: Genitourinary: Reports no additional female genitourinary complaints Exam Narrative: WDWN in NAD skin no rash head ncat lungs clear cor reg no rub abd BS+ nontender and soft ext no edema. Objective Data Vital Signs Vital Signs: Vital Signs - 24 hr 06/22/21 12:35 06/22/21 14:00 06/22/21 16:00 Temperature 36.3 C L Pulse Rate 83 97 92 Respiratory Rate 16 Blood Pressure 173/67 H Pulse Oximetry 95 06/22/21 17:00 06/22/21 20:00 06/22/21 22:00 Temperature 36.4 C L 36.5 C Pulse Rate 92 96 96 Respiratory Rate 18 24 H Blood Pressure 141/62 H 150/57 H Pulse Oximetry 97 99 06/22/21 23:30 06/23/21 00:00 06/23/21 02:00 Temperature 37.3 C Pulse Rate 96 84 84 Respiratory Rate 24 H 18 Blood Pressure 166/55 H Pulse Oximetry 99 96 06/23/21 04:00 06/23/21 06:00 06/23/21 08:00 Temperature 36.2 C L 36.7 C Pulse Rate 82 88 80 Respiratory Rate 16 20 Blood Pressure 186/57 H 155/57 H Pulse Oximetry 98 98 06/23/21 10:00 06/23/21 12:00 Temperature 36.4 C Pulse Rate 99 96 Respiratory Rate 20 Blood Pressure 172/64 H Pulse Oximetry 88 L Intake/Output Intake/Output: Intake & Output 06/20/21 06/21/21 06/22/21 06/23/21 23:59 23:59 23:59 23:59 Intake Total 1570 240 Output Total 1400 1 Balance 170 239 Meds/Results Medications: Active Medications Generic Name Dose Route Start Last Admin Trade Name Freq PRN Reason Stop Dose Admin Acetaminophen 650 mg 06/21/21 23:44 Acetaminophen 325 Mg Tablet PO Q4H PRN Mild Pain (1-3) or Fever Hydrocodone Bitart/Acetaminophen 1 tab 06/21/21 23:44 Hydrocodone/Acetaminophen (*Crx) 5-325 Mg Tablet PO Q4H PRN Pain Rated 4-6 Atorvastatin Calcium 20 mg 06/22/21 09:00 06/23/21 08:27 Atorvastatin 20 Mg Tablet PO 20 mg DAILY LAUREN Administration Clonidine HCl 0.1 mg 06/23/21 13:00 06/23/21 12:30 Clonidine Hcl
[2021-06-23 17:07] LABS: Glucose Point of Care 167 mg/dl (65-105)
[2021-06-23 22:07] LABS: Glucose Point of Care 101 mg/dl (65-105)
[2021-06-23] MEDS: CEFEPIME 0.5 GM in DEXTROSE 5% IN WATER 50 ML IVPB (22:19)
[2021-06-24] VITALS (24 sets, daily range): BP systolic 98–177; BP diastolic 38–72; PULSE 62–105; RESP 16–20; TEMP 36.3–37; O2SAT 95–99
[2021-06-24 05:12] LABS: Albumin Level 3.7 g/dL (3.5-5.1); Anion Gap 12 mmol/L (8-16); Blood Urea Nitrogen 46 mg/dL (7-17); Calcium 9.4 mg/dL (8.4-10.2); Carbon Dioxide 29 mmol/L (22-30); Chloride 94 mmol/L (98-107); Estimated CRCL calculation 7 ml/min; Estimated Glomerular Filt Rate 10; Glucose 92 mg/dL (65-110); Phosphorus 4.4 mg/dL (2.5-4.5); Potassium 4.2 mmol/L (3.4-5.0); Sodium 135 mmol/L (137-145)
[2021-06-24] MEDS: LEVOTHYROXINE SODIUM 150 MCG TABLET PO (06:00)
[2021-06-24 08:28] LABS: Glucose Point of Care 81 mg/dl (65-105)
[2021-06-24] MEDS: HEPARIN SODIUM 5,000 UNITS/ML VIAL 5000 UNITS SUB-Q (10:03)
[2021-06-24] MEDS: SPIRONOLACTONE 12.5 MG TABLET PO (10:03)
[2021-06-24] MEDS: ISOSORBIDE MONONITRATE 30 MG TAB.ER.24H PO (10:03)
[2021-06-24] MEDS: FUROSEMIDE 40 MG TABLET PO (10:03)
[2021-06-24] MEDS: ATORVASTATIN 20 MG TABLET PO (10:03)
[2021-06-24] MEDS: cloNIDine HCL 0.1 MG TABLET PO (10:03)
[2021-06-24] MEDS: PANTOPRAZOLE 40 MG TABLET PO (10:03)
--- NOTE | 2021-06-24 13:01 | P.PNNP_ITS ---
Progress Note: A&P Assessment and Plan (1) ESRD on dialysis: Code(s): N18.6 - End stage renal disease; Z99.2 - Dependence on renal dialysis Status: Chronic Assessment and Plan: * HD today and continue Sun/Sun/Sun dialysis schedule * follow electrolytes, volume status, and clearance * follow with Dr. Waite at [facility] (2) COVID-19: Code(s): U07.1 - COVID-19 Status: Acute Assessment and Plan: * mild symptoms noted * The patient has symptoms from this on presentation * complicated course with intubation and prolonged hospital course in May 2020 * unvaccincated * continue supportive therapy (3) Altered mental status: Code(s): R41.82 - Altered mental status, unspecified Status: Acute Assessment and Plan: * presumably from #2 * follow mentation (4) Erythropoietin deficiency anemia: Code(s): D63.1 - Anemia in chronic kidney disease Status: Acute Assessment and Plan: * H/H above goal for ESRD * Epogen on hold * follow trend of H/H (5) HTN (hypertension): Code(s): I10 - Essential (primary) hypertension Status: Acute Assessment and Plan: * reasonable control * follow trend of hemodynamics (6) Renal osteodystrophy: Code(s): N25.0 - Renal osteodystrophy Status: Acute Assessment and Plan: * calcium and phosphorus under good control * follow parameters (7) Diabetes: Code(s): E11.9 - Type 2 diabetes mellitus without complications Status: Chronic Assessment and Plan: * follow accuchecks * on SSI Will continue to follow. Subjective Date/time seen: 06/24/21 13:01 Chart reviewed - assuming care from Dr. Diaz; tolerating dialysis at the time of my visit (seen on HD at 12:45PM); no new issues or problems to report currently; no issues/events overnight or earlier this AM. Exam Narrative: General: elderly female in NAD Heart: normal S1 and S2; no rub Lungs: clear to auscultation Abdomen: soft, nontender, nondistended, positive bowel sounds Extremities: no cyanosis or clubbing; no edema Skin: warm and dry Objective Data Vital Signs Vital Signs: Vital Signs Temp Pulse Resp BP Pulse Ox 06/24/21 13:00 95 128/56 L 06/24/21 12:45 98 136/58 L 06/24/21 12:30 96 139/71 06/24/21 12:15 93 157/64 H 06/24/21 12:01 88 141/59 H 06/24/21 11:50 36.7 C 92 16 177/72 H 06/24/21 10:15 97 06/24/21 08:45 36.4 C 79 18 173/58 H 98 06/24/21 06:00 74 06/24/21 04:00 36.6 C 62 19 159/47 H 99 06/24/21 02:00 79 06/24/21 00:00 36.7 C 73 20 146/64 H 99 06/23/21 22:00 79 06/23/21 20:55 36.6 C 80 18 170/55 H 99 06/23/21 20:00 76 99 06/23/21 18:00 87 06/23/21 16:00 36.6 C 91 20 163/63 H 97 Intake/Output Intake/Output: Intake & Output 06/21/21 06/22/21 06/23/21 06/24/21 23:59 23:59 23:59 23:59 Intake Total 1570 900 130 Output Total 1400 1 Balance 170 899 130 Meds/Results Medications: Active Medications Generic Name Dose Route Start Last Admin Trade Name Terrell IVAN
--- NOTE | 2021-06-24 13:01 | PM.PNNEP ---
Progress Note: A&P Assessment and Plan (1) ESRD on dialysis: Code(s): N18.6 - End stage renal disease; Z99.2 - Dependence on renal dialysis Status: Chronic Assessment and Plan: HD today and continue Sun/Sun/Sun dialysis schedule follow electrolytes, volume status, and clearance follow with Dr. Waite at [facility] (2) COVID-19: Code(s): U07.1 - COVID-19 Status: Acute Assessment and Plan: mild symptoms noted The patient has symptoms from this on presentation complicated course with intubation and prolonged hospital course in May 2020 unvaccincated continue supportive therapy (3) Altered mental status: Code(s): R41.82 - Altered mental status, unspecified Status: Acute Assessment and Plan: presumably from #2 follow mentation (4) Erythropoietin deficiency anemia: Code(s): D63.1 - Anemia in chronic kidney disease Status: Acute Assessment and Plan: H/H above goal for ESRD Epogen on hold follow trend of H/H (5) HTN (hypertension): Code(s): I10 - Essential (primary) hypertension Status: Acute Assessment and Plan: reasonable control follow trend of hemodynamics (6) Renal osteodystrophy: Code(s): N25.0 - Renal osteodystrophy Status: Acute Assessment and Plan: calcium and phosphorus under good control follow parameters (7) Diabetes: Code(s): E11.9 - Type 2 diabetes mellitus without complications Status: Chronic Assessment and Plan: follow accuchecks on SSI Will continue to follow. Subjective Date/time seen: 06/24/21 13:01 Chart reviewed - assuming care from Dr. Diaz; tolerating dialysis at the time of my visit (seen on HD at 12:45PM); no new issues or problems to report currently; no issues/events overnight or earlier this AM. Exam Narrative: General: elderly female in NAD Heart: normal S1 and S2; no rub Lungs: clear to auscultation Abdomen: soft, nontender, nondistended, positive bowel sounds Extremities: no cyanosis or clubbing; no edema Skin: warm and dry Objective Data Vital Signs Vital Signs: Vital Signs Temp Pulse Resp BP Pulse Ox 06/24/21 13:00 95 128/56 L 06/24/21 12:45 98 136/58 L 06/24/21 12:30 96 139/71 06/24/21 12:15 93 157/64 H 06/24/21 12:01 88 141/59 H 06/24/21 11:50 36.7 C 92 16 177/72 H 06/24/21 10:15 97 06/24/21 08:45 36.4 C 79 18 173/58 H 98 06/24/21 06:00 74 06/24/21 04:00 36.6 C 62 19 159/47 H 99 06/24/21 02:00 79 06/24/21 00:00 36.7 C 73 20 146/64 H 99 06/23/21 22:00 79 06/23/21 20:55 36.6 C 80 18 170/55 H 99 06/23/21 20:00 76 99 06/23/21 18:00 87 06/23/21 16:00 36.6 C 91 20 163/63 H 97 Intake/Output Intake/Output: Intake & Output 06/21/21 06/22/21 06/23/21 06/24/21 23:59 23:59 23:59 23:59 Intake Total 1570 900 130 Output Total 1400 1 Balance 170 899 130 Meds/Results Medications: Active Medications Generic Name Dose Route Start Last Admin Trade Name Freq PRN Reason Stop Dose Admin Acetaminophen 650 mg 06/21/21 23:44 Acetaminophen 325 Mg Tablet PO Q4H PRN Mild Pain (1-3) or Fever Hydrocodone Bitart/Acetaminophen 1 tab 06/21/21 23:44 Hydrocodone/Acetaminophen (*Crx) 5-325 Mg Tablet PO Q4H PRN Pain Rated 4-6 Atorvastatin Calcium 20 mg 06/22/21 09:00 06/24/21 10:03 Atorvastatin 20 Mg Tablet PO 20 mg DAILY LAUREN Administration Clonidine HCl 0.1 mg 06/23/21 13:00 06/24/21 10:03 Clonidine Hcl 0.1 Mg Tablet PO 0.1 mg TID LAUREN Administration Dextrose 12.5 gm 06/23/21 11:25 Dextrose 50% 25 Gm/50 Ml Syringe IV PUSH PRN PRN Hypoglycemia Protocol Ergocalciferol 50,000 unit 06/27/21 09:00 Ergocalciferol 50,000 Unit Capsule PO Mo@0900 LAUREN Furosemide 40 mg 06/22/21 09:00 06/24
--- NOTE | 2021-06-24 14:08 | PM.DS ---
DS: Admitting Diagnosis Discharge Date 06/24/21 Admitting Diagnosis Weakness and fatigue DS: Discharge Diagnosis Discharge Diagnosis (1) Pneumonia: Code(s): J18.9 - Pneumonia, unspecified organism Status: Acute Assessment and Plan: Patient seen here in the ED on 06/10/21 for weakness and CXR was clear at that time. She was seen at the HD clinic on 06/15 and was tested for COVID which returned positive. She did not receive further HD and comes back to the ED for shortness of breath. CXR now showing airspace opacities in right mid and lower lung zones. WBC normal and no fevers. This may be related to COVID and/or fluid overload (she has missed multiple HD treatments). She received Rocephin and Zithromax in ED but changed to cefepime, vancomycin and Zithromax. BCx NGTD. She normally wears 3L O2 at home but able to wean to 2L. No evidence of dysphagia here or at home per family. Home with abx to complete a course. (2) Altered mental status: Code(s): R41.82 - Altered mental status, unspecified Status: Acute Assessment and Plan: Patient is awake but mildly obtunded and MENOMINEE. No focal findings. CT brain showing no acute findings. TSH slightly low but FT4 normal. Ammonia, Folate and B12 level normal. LFTs okay. Lipase normal. UA ordered but unable to be collected (and patient on abx regardless). Patient with RUQ pain that improved; RUQ US normal. MR brain showing no acute intracranial process but with absent flow void in the left vertebral artery consistent with either occlusion or slow flow and age-related changes including mild diffuse volume loss and chronic small vessel ischemic disease. We continued her Lipitor and added ASA. COVID itself can cause mental status changes. However, after talking with family and HD nurse, it appears the patient has progressive decline in cognitive function consistent with dementia. (3) COVID-19: Code(s): U07.1 - COVID-19 Status: Acute Assessment and Plan: Patient tested positive for COVID at HD on 06/15 and this was verified. She had a severe case of COVID requiring intubation and prolonged hospital course in May 2020. She has not been vaccinated since she recovered from the initial COVID infection. Her CXR on this admission showing airspace opacities in right mid and lower lung zones but could be bacterial PNA, COVID and/or fluid overload from missed HD. Once the diagnosis of COVID was verified, we considered steroids but patient at baseline O2 with actual had improvement; also felt that some of her symptoms related to not receiving her HD. She was seen here on 06/10/21 for weakness so COVID possibly began around that time so she is about 2 weeks out. Would continue to monitor with home pulse oximeter. (4) Chronic respiratory failure with hypoxia: Code(s): J96.11 - Chronic respiratory failure with hypoxia Status: Acute Assessment and Plan: Patient normally on 3L O2 at home. We were able to wean her to 2L. (5) ESRD on dialysis: Code(s): N18.6 - End stage renal disease; Z99.2 - Dependence on renal dialysis Status: Chronic Assessment and Plan: Patient has ESRD with HD via left fistula at [facility] in [place] on . She had CKD but developed severe COVID PNA with worsening renal failure to the point of requirinig HD in May 2020. Patient diagnosed with COVID on 06/15/21 and she missed dialysis on 06/17/21 and 06/20/21. She was seen by nephrology and had HD here with clinical improvement. Continue HD as outpatient. (6) COPD (chronic obstructive pulmonary disease): Code(s): J44.9 - Chronic obstructive pulmonary disease, unspecified Status: Acute Assessment and Plan: Patient has COPD per family. She has chronic respiratory failure as well related to COPD. No wheezing here. (7) HTN (hypertension): Code(s): I10 - Essential (primary) hypertension Status: Acute Assessme
[2021-06-25 06:19] LABS: Hepatitis B Core Ab Total Nonreactive (Nonreactive)
== END 2021-06-24 17:11 | disposition home health service (06) | DRG 177 ==
LOC: ANHED 06-22 00:51 → ANH3MEDSUR 06-22 04:17 → ANHIMU 06-22 04:42
PROVIDERS: Internal Medicine Nephrology; Admitting Provider Internal Medicine; Emergency Provider Emergency Medicine; PCP Internal Medicine; Visit Provider Internal Medicine
DX: U07.1 COVID-19 (principal); J12.82 Pneumonia due to coronavirus disease 2019; J15.9 Unspecified bacterial pneumonia; N18.6 End stage renal disease; I12.0 Hypertensive chronic kidney disease with stage 5 chronic kidney disease or end stage renal disease; J96.11 Chronic respiratory failure with hypoxia; J44.0 Chronic obstructive pulmonary disease with (acute) lower respiratory infection; E11.22 Type 2 diabetes mellitus with diabetic chronic kidney disease; K21.9 Gastro-esophageal reflux disease without esophagitis; N25.0 Renal osteodystrophy; D63.1 Anemia in chronic kidney disease; F03.90 Unspecified dementia, unspecified severity, without behavioral disturbance, psychotic disturbance, mood disturbance, and anxiety; Z99.2 Dependence on renal dialysis; Z99.81 Dependence on supplemental oxygen; Z86.16 Personal history of COVID-19
CPT/HCPCS: 36415; 70450; 70551; 71045; 76705; 80053; 80069; 80076; 80202; 82140; 82607; 82746; 82948; 83036; 83690; 83735; 83880; 84439; 84443; 84480; 85025; 85610; 85730; 86592; 86704; 86706; 87040; 87340; 93005; 96365; 96367; 99285; A9270; G0257; G0378; J0456; J0692; J0696; J1644; J1815; J3370; J7030

== ENCOUNTER 2021-06-28 08:29 | Emergency (ER) | payer MEDICARE, SELFPAY ==
--- NOTE | ~2021-06-28 | XR_ITS ---
EXAMINATION: XR chest 1V portable DATE: 06/28/2021 09:00 INDICATION: Shortness of breath. COVID-19 pneumonia. TECHNIQUE: A single frontal view of the chest was obtained. COMPARISON: Chest single view 06/23/2021, chest 2 views 06/10/2021 FINDINGS: There are mild airspace opacities in right mid and lower lung zones. No pleural effusion or pneumothorax. The heart size is normal. IMPRESSION: 1. Improved mild airspace opacities in right mid and lower lung zones, consistent with pneumonia. Reviewed, dictated and finalized at location A. [employer] IMPRESSION: 1. Improved mild airspace opacities in right mid and lower lung zones, consiste nt with pneumonia.
[2021-06-28 08:28] VITALS: BP 140/57; PULSE 88; RESP 20; TEMP 36.5; O2SAT 98
--- NOTE | 2021-06-28 08:40 | ECG_ITS ---
Measurements Intervals [place] Rate: 78 P: [place]: 0 QRS: -61 QRSD: 128 T: 155 QT: 403 QTc: 461 Interpretive Statements SINUS RHYTHM ATRIAL COUPLET AND ATRIAL PREMATURE COMPLEX LEFT AXIS DEVIATION INTRAVENTRICULAR CONDUCTION DELAY LEFT VENTRICULAR HYPERTROPHY WITH ST-T CHANGE BASELINE ARTIFACT- I, II, III, AVR, AVL, AVF, V1-V6 ABNORMAL ECG Electronically Signed On 06-28-2021 8:58:33 [employer] by Kendrick Frances D.O.
--- NOTE | 2021-06-28 09:00 | ED.GENADULT ---
HPI - General Adult General Chief complaint: Weakness Stated complaint: Weakness, COVID + Source: patient and RN notes reviewed History of Present Illness HPI narrative: Patient is a 86 y/o female complaining of mild SOB for last 2 days. There is no alleviating or exacerbating factor. She states that she has cough. She has no chest pain or fever. She was hospitalized last week for COVID. She has ESRD and she is on dialysis MWF. She missed her dialysis yesterday. She is on 3L O2 at home for chronic respiratory failure. Related Data Home Medications Medication Instructions Recorded Confirmed Levemir FlexTouch U-100 Insuln 15 unit SUBCUT HS 06/22/21 06/22/21 atorvastatin 20 mg PO DAILY 06/22/21 06/22/21 clonidine HCl 0.1 mg PO TID 06/22/21 06/22/21 ergocalciferol (vitamin D2) 50,000 unit PO WEEKLY 06/22/21 06/22/21 ferrous [id number] conc 1 cap PO DAILY 06/22/21 06/22/21 furosemide 40 mg PO DAILY 06/22/21 06/22/21 isosorbide mononitrate 30 mg PO DAILY 06/22/21 06/22/21 latanoprost 1 drp EACH EYE DAILY 06/22/21 06/22/21 levothyroxine [Synthroid] 150 mcg PO DAILY 06/22/21 06/22/21 pantoprazole 40 mg PO DAILY 06/22/21 06/22/21 spironolactone 12.5 mg PO DAILY 06/22/21 06/22/21 Allergies Allergy/AdvReac Type Severity Reaction Status Date / Time No Known Allergies Allergy Verified 06/10/21 09:35 Review of Systems Constitutional: Constitutional: Denies chills, Denies fever(s), Denies headache(s) and Denies weakness Eyes: Eyes: Denies blurry vision ENT: Denies headache(s) and Denies neck pain Cardiovascular: Cardiovascular: Denies chest pain and Reports dyspnea Respiratory: Respiratory: Reports cough and Reports dyspnea Gastrointestinal: Gastrointestinal: Denies abdominal pain, Denies diarrhea, Denies nausea and Denies vomiting Genitourinary: Genitourinary: Denies hematuria and Denies dysuria Musculoskeletal: Musculoskeletal: Denies back pain and Denies neck pain Neurologic: Denies headache(s) and Denies weakness [facility] Past Medical History Medical History (Updated 06/28/21 @ 10:14 by Rosario Restrepo MD) Diabetes Dialysis patient Erythropoietin deficiency anemia HTN (hypertension) Renal osteodystrophy Surgical History Surgical History History of vascular surgery dialysis access LUE Social History Social History Smoking status: Never smoker Alcohol intake: never Substance use: never Substance use type: does not use Spiritual care concerns: No Exam Const: General: no acute distress and well developed Orientation/consciousness: oriented to person, oriented to place and confusion HENMT: Head: normocephalic Ears: external ears normal General nose exam: Normal external nose present Eyes: General: appearance normal, both eyes and all related structures Conjunctivae: conjunctivae normal Neck: Neck: normal visual inspection and full ROM Chest: Chest palpation & inspection: normal inspection of the chest and no tenderness Resp: Effort & Inspection: normal respiratory effort Auscultation: clear to auscultation bilaterally Cardio: Rate: regular rate Rhythm: regular rhythm GI: GI Palp: No abdominal tenderness and Yes Soft to palpation Skin: General skin exam: normal color and turgor normal Neuro: General: oriented to person and oriented to place Cognition (Neuro): normal cognition Extrem: General: normal to inspection, full ROM and no pedal edema Psych: Appearance: grossly normal Mental Status: mental status grossly normal Affect: normal affect Course Reevaluation(s) Reevaluation #1: Discussed with son about plan for discharge. He is agreeable. He states that patient lives with him and he will come pick her up. Date: 06/28/21 Time: 10:12 Consultations Consultation #1: Discussed with Dr. Ugalde, who recommends discharge. Date: 06/28/21 Time: 09:56 Vital Signs Mary
[2021-06-28 09:05] LABS: Basophils Absolute Auto 0.1 K/mm3 (0.0-0.1); Basophils Percent Auto 0.8 % (0.2-1.2); Eosinophils Absolute Auto 0.2 K/mm3 (0-0.3); Eosinophils Percent Auto 2.5 % (0-4.4); Hematocrit 39.4 % (37.0-47.0); Hemoglobin 12.4 g/dL (12.0-15.0); Immature Granulocyte Absolute 0.37 K/mm3 (0.00-0.031); Lymphocytes Percent Auto 10.8 % (18.3-44.2); Mean Corpuscular HGB Conc 31.5 g/dl (32-36); Mean Corpuscular Hemoglobin 28.5 pg (26-34); Mean Corpuscular Volume 90.6 fl (80-100); Mean Platelet Volume 11.4 fl (7.4-10.4); Monocytes Absolute Auto 1.1 K/mm3 (0.1-0.6); Monocytes Percent Auto 12.2 % (2.6-8.5); Neutrophils Absolute Auto 6.5 K/mm3 (1.3-6.7); Neutrophils Percent Auto 69.7 % (45.5-73.1); Platelet Count Result 322 k/mm3 (150-375); Red Blood Count 4.35 M/mm3 (4.2-5.4); Red Cell Distribution Width 13.9 % (11.5-14.5); White Blood Count 9.3 K/mm3 (4.5-10.0)
[2021-06-28 09:47] LABS: Alanine Aminotransferase 12 U/L (4-35); Albumin Level 4.1 g/dL (3.5-5.1); Alkaline Phosphatase 75 U/L (38-126); Anion Gap 17 mmol/L (8-16); Aspartate Amino Transferase 33 U/L (14-36); Bilirubin,Total 0.5 mg/dL (0.2-1.3); Blood Urea Nitrogen 104 mg/dL (7-17); Calcium 9.4 mg/dL (8.4-10.2); Carbon Dioxide 25 mmol/L (22-30); Chloride 91 mmol/L (98-107); Estimated CRCL calculation 6 ml/min; Estimated Glomerular Filt Rate 6; Glucose 119 mg/dL (65-110); Potassium 5.1 mmol/L (3.4-5.0); Sodium 133 mmol/L (137-145)
[2021-06-28] MEDS: SODIUM POLYSTYRENE SULFONONATE 15 GM/60 ML BTL PO (10:47)
[2021-06-28 11:03] VITALS: BP 152/40; PULSE 74; RESP 12; O2SAT 94
[2021-06-28 11:27] VITALS: BP 152/40; PULSE 70; RESP 20; O2SAT 95
== END 2021-06-28 11:29 | disposition home or self-care (01) ==
PROVIDERS: Emergency Provider Emergency Medicine; PCP Internal Medicine
DX: R53.1 Weakness (principal); I12.0 Hypertensive chronic kidney disease with stage 5 chronic kidney disease or end stage renal disease; N18.6 End stage renal disease; E11.22 Type 2 diabetes mellitus with diabetic chronic kidney disease; Z99.2 Dependence on renal dialysis; Z86.16 Personal history of COVID-19; D63.1 Anemia in chronic kidney disease; N25.0 Renal osteodystrophy; J96.10 Chronic respiratory failure, unspecified whether with hypoxia or hypercapnia; Z99.81 Dependence on supplemental oxygen; R00.8 Other abnormalities of heart beat; Z79.4 Long term (current) use of insulin; Z79.82 Long term (current) use of aspirin; I49.1 Atrial premature depolarization; I45.9 Conduction disorder, unspecified; I51.7 Cardiomegaly; R91.8 Other nonspecific abnormal finding of lung field
CPT/HCPCS: 36415; 71045; 80053; 85025; 93005; 99283; A9270

== ENCOUNTER 2021-07-25 08:44 | Inpatient (IN) | payer MEDICARE, SELFPAY ==
[2021-07-25] VITALS (15 sets, daily range): BP systolic 116–165; BP diastolic 21–50; PULSE 66–90; RESP 18–24; TEMP 36.1–36.9; O2SAT 99–100
--- NOTE | ~2021-07-25 | XR_ITS ---
EXAMINATION: XR chest 1V portable DATE: 07/25/2021 10:00 INDICATION: Dyspnea TECHNIQUE: frontal view of the chest was obtained. COMPARISON: Chest radiograph dated 06/28/21 and 06/23/2021 FINDINGS: Skinfolds project over the lateral aspect of the bilateral mid and lower lung zones. Pulmonary vascul ar congestion. No significant change in primarily reticular opacities in the right mid and lower lung zone with improvement compared with earlier study from 06/23/2021 consistent with improving pneumonia or asymmetric mild pulmonary edema. The cardiomediastinal silhouette is within normal limits for AP technique. IMPRESSION: 1. Persistent slowly improving mild opacities in the right mid and lower lung zone which could repres ent pneumonia and/or mild asymmetric pulmonary edema. Reviewed, dictated and finalized at location A. ER WORKER IMPRESSION: 1. Persistent slowly improving mild opacities in the right mid and lower lung z one which could represent pneumonia and/or mild asymmetric pulmonary edema.
--- NOTE | 2021-07-25 08:45 | ECG_ITS ---
Measurements Intervals [place] Rate: 70 P: 106 MN: 199 QRS: -5 QRSD: 114 T: 77 QT: 392 QTc: 425 Interpretive Statements SINUS RHYTHM INTRAVENTRICULAR CONDUCTION DELAY BORDERLINE ST-T WAVE ABNORMALITY- INFERIOR LEADS BASELINE ARTIFACT- I, III, AVL BORDERLINE ECG Electronically Signed On 07-25-2021 13:02:05 [employer] by Kendrick Frances D.O.
--- NOTE | 2021-07-25 08:49 | ED.GENADULT ---
HPI - General Adult General Chief complaint: Recheck/Abnormal Lab/Rx Stated complaint: abn labs Source: RN notes reviewed History of Present Illness HPI narrative: Patient presents emergency department from home via EMS for anemia. The patient is a dialysis patient with dialysis Sunday last had dialysis on Sunday she is called today by dialysis nurse and told that her hemoglobin was low and a drop from 14-5.1. The patient has no complaints at this time she denies any fevers or chills chest pain shortness of breath abdominal pain nausea or vomiting patient is chronically on 3 L nasal cannula at all times Related Data Home Medications Medication Instructions Recorded Confirmed Levemir FlexTouch U-100 Insuln 15 unit SUBCUT HS 06/22/21 06/22/21 atorvastatin 20 mg PO DAILY 06/22/21 06/22/21 clonidine HCl 0.1 mg PO TID 06/22/21 06/22/21 ergocalciferol (vitamin D2) 50,000 unit PO WEEKLY 06/22/21 06/22/21 ferrous [id number] conc 1 cap PO DAILY 06/22/21 06/22/21 furosemide 40 mg PO DAILY 06/22/21 06/22/21 isosorbide mononitrate 30 mg PO DAILY 06/22/21 06/22/21 latanoprost 1 drp EACH EYE DAILY 06/22/21 06/22/21 levothyroxine [Synthroid] 150 mcg PO DAILY 06/22/21 06/22/21 pantoprazole 40 mg PO DAILY 06/22/21 06/22/21 spironolactone 12.5 mg PO DAILY 06/22/21 06/22/21 Allergies Allergy/AdvReac Type Severity Reaction Status Date / Time No Known Allergies Allergy Verified 07/25/21 09:22 Review of Systems Review of Systems: Gen.: Denies fevers or chills ENT: Denies congestion Respiratory: Denies shortness of breath or cough CV: Denies chest pain or palpitations GI: Denies abdominal pain nausea, emesis or diarrhea : Reports chronic renal failure dialysis Sunday Musculoskeletal: Denies back pain or muscle pain Neuro: Denies numbness, tingling, weakness or focal weakness Skin: Denies rash Except as documented, all other systems reviewed and negative PMFSH Past Medical History Medical History Diabetes Dialysis patient Erythropoietin deficiency anemia HTN (hypertension) Renal osteodystrophy Surgical History Surgical History History of vascular surgery dialysis access LUE Social History Social History Smoking status: Never smoker Alcohol intake: never Substance use: never Substance use type: does not use Spiritual care concerns: No Exam Narrative: APPEARANCE: No acute distress, nontoxic, resting in bed EYES: EOMI HEENT: Normocephalic, atraumatic, OMM RESPIRATORY: No respiratory distress Clear to auscultation bilaterally with no rhonchi wheezing or rales. CARDIOVASCULAR: Regular rate and rhythm without murmurs rubs or gallops. ABDOMINAL: Soft, nontender, nondistended, no rebound or guarding Rectal: Moderate amount of black stool that is Hemoccult positive MUSCULOSKELETAl: Moves all extremities. No clubbing, cyanosis or edema. NEURO: Awake and alert. Following commands, speech normal, no focal deficits SKIN:: Warm, dry. No rashes lesions or abrasions PSYCHIATRIC: Normal affect/mood, Course Course Emergency Course: Discussed with Dr. Appiah presentation work-up agrees with consult Discussed with Dr. Ugalde presentation work-up agrees with consult recommends patient receive [address] Discussed with Dr Dangelo presentation work-up agrees with admission Discussed with patient and family results of workup and diagnosis. Discussed need for admission. Patient and family understand and agree to current treatment plan Vital Signs Vital signs: Vital Signs Temperature 98.2 F 07/25/21 08:43 Pulse Rate 73 07/25/21 08:43 Respiratory Rate 18 07/25/21 08:43 Blood Pressure 137/41 L 07/25/21 08:43 Pulse Oximetry 100 07/25/21 08:43 Temperature 98.2 F 07/25/21 08:43 Pulse Rate 73 07/25/21 08:43 Re
[2021-07-25 09:09] LABS: Basophils Absolute Auto 0.1 K/mm3 (0.0-0.1); Basophils Percent Auto 0.5 % (0.2-1.2); Eosinophils Absolute Auto 0.3 K/mm3 (0-0.3); Eosinophils Percent Auto 2.9 % (0-4.4); Lymphocytes Absolute Auto 1.21 K/mm3 (0.9-3.2); Lymphocytes Percent Auto 11.9 % (18.3-44.2); Mean Corpuscular HGB Conc 29.4 g/dl (32-36); Mean Corpuscular Volume 108.7 fl (80-100); Mean Platelet Volume 10.7 fl (7.4-10.4); Monocytes Absolute Auto 0.7 K/mm3 (0.1-0.6); Monocytes Percent Auto 7.2 % (2.6-8.5); Neutrophils Absolute Auto 7.8 K/mm3 (1.3-6.7); Neutrophils Percent Auto 76.5 % (45.5-73.1); Platelet Count Result 332 k/mm3 (150-375); Red Cell Distribution Width 19.2 % (11.5-14.5); White Blood Count 10.2 K/mm3 (4.5-10.0)
[2021-07-25 09:16] LABS: INR 1.1; Prothrombin Time 13.9 Seconds (11.1-14.7)
[2021-07-25 09:17] LABS: Partial Thromboplastin Time 26.4 SECONDS (22.3-36.8)
[2021-07-25 09:19] LABS: Alanine Aminotransferase 8 U/L (4-35); Albumin Level 3.3 g/dL (3.5-5.1); Alkaline Phosphatase 51 U/L (38-126); Anion Gap 4 mmol/L (8-16); Aspartate Amino Transferase 21 U/L (14-36); Bilirubin,Total 0.2 mg/dL (0.2-1.3); Blood Urea Nitrogen 55 mg/dL (7-17); Calcium 8.5 mg/dL (8.4-10.2); Carbon Dioxide 33 mmol/L (22-30); Chloride 99 mmol/L (98-107); Estimated CRCL calculation 10 ml/min; Estimated Glomerular Filt Rate 12; Glucose 112 mg/dL (65-110); Potassium 5.3 mmol/L (3.4-5.0); Sodium 136 mmol/L (137-145)
[2021-07-25 09:31] LABS: Hematocrit 16.3 % (37.0-47.0); Hemoglobin 4.8 g/dL (12.0-15.0)
[2021-07-25 09:35] LABS: Hypochromasia 2+ (NORMAL); Platelet Estimate Adequate (Adequate)
[2021-07-25 09:36] LABS: Anisocytosis 2+ (NORMAL)
[2021-07-25] MEDS: SODIUM CHLORIDE 0.9% IV 250 ML 30 ML IV CONT (11:17)
[2021-07-25] MEDS: TUBING, BLOOD PLUM PUMP TUBING 1 EACH XX (11:18)
--- NOTE | 2021-07-25 12:18 | ADMGEN ---
This patient, Sofía Contreras, was admitted to 2 Medical Room 259-01. Patient/family oriented to hospital policies and general routines including ID bracelet, bed and alarms, visiting hours, pain management, procedures, bathroom and other care routines, personal items, smoking policy, room service/diet, and visiting hours. Information on how to activate the Rapid Response Team has been discussed. Patient/Family are encouraged to report perceived risks to care and to ask questions if they do not understand what they are told or what they should do.
[2021-07-25] MEDS: SODIUM CHLORIDE 0.9% IV 250 ML 30 ML (13:35)
--- NOTE | 2021-07-25 14:53 | WPDGICN ---
Assessment and Plan Assessment and plan (1) GI bleed: Code(s): K92.2 - Gastrointestinal hemorrhage, unspecified Status: Acute Assessment and Plan: she had told the emergency room her stools were dark. They performed Hemoccult which was positive. I will schedule her for an EGD to be done tomorrow. I explained the risks and possible complications with her such as bleeding or perforation of the possible need for surgery to correct any complications, and possible cardiopulmonary complications. I explained that she will be sedated by Anesthesia (2) Anemia: Code(s): D64.9 - Anemia, unspecified Status: Acute Assessment and Plan: sudden drop her hemoglobin from 14-5. Lately we have seen this often in dialysis patients but there is certainly a high probability that she has bleeding. She is receiving 2 units of packed red blood cells. (3) Altered mental status: Code(s): R41.82 - Altered mental status, unspecified Status: Acute Assessment and Plan: her history is not sharp but she was able to give me the name of her primary care physician but not her medications (4) Chronic renal failure: Code(s): N18.9 - Chronic kidney disease, unspecified Status: Acute Assessment and Plan: she states that she has been on dialysis for several years Nephrology has been consulted for GI Consult Note Consult date/time: 07/25/21 14:53 HPI: Sofía Contreras is a 86 year old female who presented to the emergency room when she had been called by a dialysis nurse to inform her that her hemoglobin had dropped from 14-5.1. This apparently was from Sunday dialysis. The patient has been noted to have dark stools as well. The patient is in somewhat poor historian. She cannot tell me how long her stools have been dark. She states that she does get abdominal pain but it is primarily in her lower abdomen. She does not know if she has ever had an ulcer. She states that she would not be surprised if she did. She thinks that she has had a colonoscopy at sometime in the past. Her home medications include aspirin 81 mg per day. She is a middle of receiving a transfusion of 2 units of blood. Nephrology also has been consult Review of Systems Review of Systems: All systems reviewed & are unremarkable except as noted in HPI and below PMFSH Past Medical History Medical History Diabetes Dialysis patient Erythropoietin deficiency anemia HTN (hypertension) Renal osteodystrophy Surgical History Surgical History History of vascular surgery dialysis access LUE Social History Social History Smoking status: Never smoker Alcohol intake: never Substance use: never Substance use type: does not use Spiritual care concerns: No Meds Home Medications and Allergies Home Medications Medication Instructions Recorded Confirmed Type Levemir FlexTouch U-100 Insuln 15 unit SUBCUT HS 06/22/21 07/25/21 History atorvastatin 20 mg PO DAILY 06/22/21 07/25/21 History clonidine HCl 0.1 mg PO TID 06/22/21 07/25/21 History ergocalciferol (vitamin D2) 50,000 unit PO WEEKLY 06/22/21 07/25/21 History ferrous [id number] conc 1 cap PO DAILY 06/22/21 07/25/21 History furosemide 40 mg PO DAILY 06/22/21 07/25/21 History isosorbide mononitrate 30 mg PO DAILY 06/22/21 07/25/21 History latanoprost 1 drp EACH EYE DAILY 06/22/21 07/25/21 History levothyroxine [Synthroid] 150 mcg PO DAILY 06/22/21 07/25/21 History pantoprazole 40 mg PO DAILY 06/22/21 07/25/21 History spironolactone 12.5 mg PO DAILY 06/22/21 07/25/21 History Allergies Allergy/AdvReac Type Severity Reaction Status Date / Time No Known Allergies Allergy Verified 07/25/21 13:45 Vital Signs Vital Signs - 24 hr 07/25/21 08:43 07/25/21 11:10 07/25/21
--- NOTE | 2021-07-25 16:04 | PM.CNNEP ---
Assessment and Plan Assessment and plan (1) End stage renal disease: Code(s): N18.6 - End stage renal disease Status: Chronic Assessment and Plan: missed HD treatment today plan HD tomorrow and eventually resume outpatient (// schedule) follow electrolytes, volume status, and clearance (2) Profound anemia: Code(s): D64.9 - Anemia, unspecified Status: Acute Assessment and Plan: presumed GI bleed given evidence to date Gastroenterology consult/recommendations noted PRBC transfusion follow trend of H/H (3) Chronic respiratory failure with hypoxia: Code(s): J96.11 - Chronic respiratory failure with hypoxia Status: Chronic Assessment and Plan: on supplemental oxygen recent worsening SOB could be related to anemia follow respiratory status (4) HTN (hypertension): Code(s): I10 - Essential (primary) hypertension Status: Chronic Assessment and Plan: reasonable control at this time resume home BP medications follow trend of hemodynamics (5) Anemia: Code(s): D64.9 - Anemia, unspecified Status: Chronic Assessment and Plan: chronic issues related to ESRD however, concern is acute drop due to GI blood loss Epogen with HD hold heparin with HD close monitoring of H/H (6) Diabetes: Code(s): E11.9 - Type 2 diabetes mellitus without complications Status: Chronic Assessment and Plan: follow accuchecks glycemic control Will continue to follow. History of Present Illness Reason for Consult Consult date: 07/25/21 Reason for consult: end stage renal disease Chief Complaint Chief complaint: Anemia/GI Bleed/Chronic Renal Failure /dialysis History of Present Illness Narrative: Most of the history that I have obtained is from review of the electronic medical records as well as discussion with the ER physician earlier today as the patient is not the best historian. She is an 86-year-old female with an extensive past medical history as outlined below who presented to [facility] Emergency room for further evaluation of a low hemoglobin that was drawn last Sunday with her last dialysis treatment. Specifically, her hemoglobin was reported to be around 5.0 but the results were not available until earlier today. Apparently, her dialysis center nurse informed the patient of this laboratory abnormality and recommended going to the emergency room for further evaluation. She called EMS and was subsequently transported to [facility] Emergency Room. I am unclear if the blood draw/hemoglobin that was done last Sunday was a scheduled laboratory test or was it done in response to some acute complaint or problem the patient endorsed. On further questioning to the patient, she states that she has noted dark stools but she is also on supplemental iron as well. She also wrote reports some mild aching discomfort in the supraumbilical area but states this comes and goes and is usually relieved with analgesics. She also reports some symptoms suggestive of gastroesophageal reflux disease but reports that this has not been an issue or problem recently. She does admit tht shehas been having increasing shortness of breath from her baseline as well as some mild lightheadedness/\dizziness. Workup and evaluation emergency room demonstrated the patient to be hemodynamically stable and routine blood test demonstrated labs consistent with her known history of end-stage renal disease but she was moved found to be markedly anemic with a hemoglobin of 4.8 and hematocrit of 16.3. A rectal exam done in the emergency room demonstrated black stools which were Hemoccult positive as well. Given this laboratory finding in constellation with the symptoms as well as the outpatient labs that led to her presentation to the emergency room, she was typed and crossed for a packed red blood cell transfusion and subsequent admitted
[2021-07-25 17:35] LABS: Hepatitis B Surface Antigen Negative (Negative)
[2021-07-25 17:53] LABS: Hepatitis B Surface Anti Res Negative
--- NOTE | 2021-07-25 20:00 | PM.IMHP ---
H&P: HPI History of Present Illness Date/Time: 07/25/21 20:00 Chief Complaint: Low hemoglobin. Narrative: This is an 86-year-old female with end-stage renal disease on hemodialysis, type 2 diabetes myelitis, chronic respiratory failure on oxygen, chronic obstructive pulmonary disease, and hypertension who presented to the emergency department for further treatment and evaluation after she was told that her hemoglobin was low on labs drawn Sunday afternoon with dialysis. The patient is a fair historian but she is also quite hard of hearing and as such some of the following is supplemented via a review of her electronic medical records. Patient reports having dark stools for quite some time however it looks like she does take iron at home. She does not know how long she has been having dark stools, however, or if they have changed in quantity or quality. She also reports a nondescript, mild aching discomfort in the supraumbilical region though she goes on to say that is not significant and she has not required analgesics for the discomfort. She does have GERD symptoms on occasion though nothing significant or no change in that recently. More recently she has been feeling increasingly short of breath from baseline and she also endorses mild lightheadedness and dizziness. On arrival to the emergency department her vital signs were stable. CBC showed a profound macrocytic anemia with a hemoglobin and hematocrit of 4.8 and 16.3% respectively. A rectal exam done in the emergency department showed a moderate amount of black stool which was Hemoccult positive and she is being admitted in this setting. At the time my evaluation she has no specific complaints. Review of Systems Review of Systems: Twelve systems were reviewed. He denies fever, chills, and sweats. No syncope or near syncope. No cold or flu symptoms. Denies dysuria; apparently she still urinates somewhat. No abdominal bloating or distention. She denies chest pain. No cough. Except as documented, all other systems were reviewed and are negative. [facility] Past Medical History Medical History (Updated 07/25/21 @ 23:29 by Amanda Osorio PA-C) Chronic anemia Chronic obstructive pulmonary disease Chronic respiratory failure with hypoxia COVID-19 (06/2021) End-stage renal disease on hemodialysis Erythropoietin deficiency anemia Gastroesophageal reflux disease Glaucoma Hyperlipidemia Hypertension Insulin dependent type 2 diabetes mellitus Osteoarthritis Renal osteodystrophy Vitamin D deficiency Surgical History Surgical History (Updated 07/25/21 @ 23:27 by Amanda Osorio PA-C) Status post creation of arteriovenous fistula Left upper extremity. Family History Family History (Updated 07/25/21 @ 23:28 by Amanda Osorio PA-C) Other Diabetes mellitus Hypertension Social History Social History (Updated 07/25/21 @ 23:53 by Amanda Osorio PA-C) Social History: Surrogate decision maker: Amy Contreras, son. Code status: Full code. Smoking status: Former smoker Alcohol intake: never Substance use: never Substance use type: does not use Meds Home Medications and Allergies Home Medications Medication Instructions Recorded Confirmed Type Levemir FlexTouch U-100 Insuln 15 unit SUBCUT HS 06/22/21 07/25/21 History atorvastatin 20 mg PO DAILY 06/22/21 07/25/21 History clonidine HCl 0.1 mg PO TID 06/22/21 07/25/21 History ergocalciferol (vitamin D2) 50,000 unit PO WEEKLY 06/22/21 07/25/21 History ferrous [id number] conc 1 cap PO DAILY 06/22/21 07/25/21 History furosemide 40 mg PO DAILY 06/22/21 07/25/21 History isosorbide mononitrate 30 mg PO DAILY 06/22/21 07/25/21 History latanoprost 1 drp EACH EYE DAILY 06/22/21 07/25/21 History levothyroxine [Synthroid] 150 mcg PO DAILY 06/22/21 07/25/21 History pantoprazole 40 mg PO DAILY 06/22/21 07/25/21 History spironolactone 12.5 mg PO DAILY 06/22/21 07/25/21 History Allergies Allergy/AdvReac Type
[2021-07-25 20:15] LABS: Glucose Point of Care 112 mg/dl (65-105)
[2021-07-26] VITALS (33 sets, daily range): BP systolic 90–185; BP diastolic 33–72; PULSE 68–96; RESP 16–27; TEMP 35.2–37.1; O2SAT 93–100
[2021-07-26 06:47] LABS: Basophils Absolute Auto 0.1 K/mm3 (0.0-0.1); Basophils Percent Auto 0.4 % (0.2-1.2); Eosinophils Absolute Auto 0.1 K/mm3 (0-0.3); Eosinophils Percent Auto 0.8 % (0-4.4); Hemoglobin 7.2 g/dL (12.0-15.0); Immature Granulocyte Percent A 0.7 % (0-0.5); Lymphocytes Absolute Auto 0.93 K/mm3 (0.9-3.2); Lymphocytes Percent Auto 6.4 % (18.3-44.2); Mean Corpuscular HGB Conc 31.3 g/dl (32-36); Mean Corpuscular Hemoglobin 31.2 pg (26-34); Mean Corpuscular Volume 99.6 fl (80-100); Mean Platelet Volume 10.8 fl (7.4-10.4); Monocytes Absolute Auto 1.1 K/mm3 (0.1-0.6); Monocytes Percent Auto 7.5 % (2.6-8.5); Neutrophils Absolute Auto 12.2 K/mm3 (1.3-6.7); Neutrophils Percent Auto 84.2 % (45.5-73.1); Platelet Count Result 278 k/mm3 (150-375); Red Blood Count 2.31 M/mm3 (4.2-5.4); Red Cell Distribution Width 18.6 % (11.5-14.5); White Blood Count 14.4 K/mm3 (4.5-10.0)
--- NOTE | 2021-07-26 06:55 | PC.NURSE ---
0650 transferred pt to dialysis room in bed.
[2021-07-26 07:11] LABS: Alanine Aminotransferase 7 U/L (4-35); Albumin Level 3.2 g/dL (3.5-5.1); Alkaline Phosphatase 45 U/L (38-126); Anion Gap 8 mmol/L (8-16); Aspartate Amino Transferase 20 U/L (14-36); Bilirubin,Total 0.4 mg/dL (0.2-1.3); Blood Urea Nitrogen 63 mg/dL (7-17); Calcium 8.4 mg/dL (8.4-10.2); Carbon Dioxide 25 mmol/L (22-30); Chloride 101 mmol/L (98-107); Estimated CRCL calculation 10 ml/min; Estimated Glomerular Filt Rate 12; Glucose 109 mg/dL (65-110); Magnesium 2.3 mg/dL (1.6-2.3); Phosphorus 3.6 mg/dL (2.5-4.5); Potassium 5.3 mmol/L (3.4-5.0); Sodium 134 mmol/L (137-145)
[2021-07-26 08:40] LABS: Folic Acid 7.2 ng/mL (2.76->20)
[2021-07-26] MEDS: EPOETIN ALFA-EPBX 20,000 UNITS/ML VIAL 20000 UNITS IV PUSH (09:21)
[2021-07-26] MEDS: SODIUM CHLORIDE 0.9% IV 1,000 ML 999 ML IV CONT (09:21)
--- NOTE | 2021-07-26 10:12 | PM.PNNEP ---
Progress Note: A&P Assessment and Plan (1) End stage renal disease: Code(s): N18.6 - End stage renal disease Status: Chronic Assessment and Plan: HD today eventually resume outpatient (// schedule) starting tomorrow follow electrolytes, volume status, and clearance (2) Profound anemia: Code(s): D64.9 - Anemia, unspecified Status: Acute Assessment and Plan: presumed GI bleed given evidence to date Gastroenterology following -- EGD today PRBC transfusion per protocol follow trend of H/H (3) Chronic respiratory failure with hypoxia: Code(s): J96.11 - Chronic respiratory failure with hypoxia Status: Chronic Assessment and Plan: on supplemental oxygen recent worsening SOB could be related to anemia follow respiratory status (4) HTN (hypertension): Code(s): I10 - Essential (primary) hypertension Status: Chronic Assessment and Plan: reasonable control at this time conitnue home BP medications follow trend of hemodynamics (5) Diabetes: Code(s): E11.9 - Type 2 diabetes mellitus without complications Status: Chronic Assessment and Plan: follow accuchecks on Lantus Will continue to follow. Subjective Date/time seen: 07/26/21 10:12 Tolerating dialysis treatment at the time of my visit (seen on HD at ~ 9:45AM); tolerated PRBC transfusion yesterday as well; currently NPO for likely EGD later today; no apparent distress voiced; no issues/events overnight or earlier this AM. Exam Narrative: General: chronically ill appearing female in NAD Heart: normal S1 and S2; no rub Lungs: few crackles at bases Abdomen: soft, nontender, nondistended, positive bowel sounds Extremities: no cyanosis or clubbing; no edema Skin: warm and dry Objective Data Vital Signs Vital Signs: Vital Signs Temp Pulse Resp BP Pulse Ox 07/26/21 10:00 75 121/48 L 07/26/21 09:45 77 113/48 L 07/26/21 09:30 79 138/49 L 07/26/21 09:15 75 156/72 H 07/26/21 09:00 75 162/60 H 07/26/21 08:45 76 158/56 H 07/26/21 08:30 85 169/72 H 07/26/21 08:15 79 174/64 H 07/26/21 08:00 81 168/50 H 07/26/21 07:45 87 184/68 H 07/26/21 07:30 79 172/72 H 07/26/21 07:16 89 185/63 H 07/26/21 07:05 37.1 C 89 16 183/65 H 07/26/21 05:14 36.9 C 96 20 158/42 H 97 07/26/21 01:43 99 07/25/21 20:10 36.3 C L 18 156/21 H 100 07/25/21 20:00 77 18 100 07/25/21 15:50 36.8 C 77 24 H 158/50 H 99 07/25/21 15:31 100 07/25/21 14:50 36.3 C L 90 20 165/36 H 100 07/25/21 14:45 36.3 C L 90 20 165/36 H 100 07/25/21 13:50 36.9 C 76 20 150/50 H 100 07/25/21 13:34 36.8 C 66 20 136/44 L 100 07/25/21 13:11 36.8 C 66 20 136/44 L 100 07/25/21 12:31 36.7 C 66 24 H 130/42 L 100 07/25/21 12:00 99 07/25/21 11:31 36.5 C 67 22 H 116/39 L 100 07/25/21 11:13 36.1 C L 70 20 124/39 L 100 07/25/21 11:10 69 18 124/39 L 100 Intake/Output Intake/Output: Intake & Output 07/23/21 07/24/21 07/25/21 07/26/21 23:59 23:59 23:59 23:59 Intake Total 1360 190 Balance 1360 190 Meds/Results Medications: Active Medications Generic Name Dose Route Start Last Admin Trade Name Freq PRN Reason Stop Dose Admin Atorvastatin Calcium 20 mg 07/26/21 09:00 Atorvastatin 20 Mg Tablet PO DAILY LAUREN Clonidine HCl 0.1 mg 07/26/21 09:00 Clonidine Hcl 0.1 Mg Tablet PO TID LAUREN Ergocalciferol 50,000 unit 08/01/21 09:00 Ergocalciferol 50,000 Unit Capsule PO WEEKLY LAUREN Furosemide 40 mg 07/26/21 09:00 Furosemide 40 Mg Tablet PO DAILY LAUREN Albumin Human 50 mls @ 999 mls/hr 07/26/21 05:14 Albutein IVPB 08/25/21 05:13 Q10M PRN HYPOTENSION Lactated Ringer's 1,000 mls @ 150 mls/hr 07/26/21 07:05 Lr - Lactated Ringers Iv IV CONT .Q6H40M [facility] Insulin Glargine
--- NOTE | 2021-07-26 11:05 | PM.IMPN ---
Progress Note: A&P Assessment and Plan (1) Profound anemia: Code(s): D64.9 - Anemia, unspecified Status: Acute Assessment and Plan: Secondary to GI bleeding in addition to chronic anemia. She will be transfused to a stable hemoglobin. Status post packed red blood cell transfusion H&H 7.2 on 07/26/2021 after transfusion Baseline hemoglobin 12.4 on 06/28/2021 No evidence of coagulopathy INR 1.1 PTT normal platelet count normal (2) GI bleed: Code(s): K92.2 - Gastrointestinal hemorrhage, unspecified Status: Acute Assessment and Plan: Dr. Dominguez has been consulted and Status post EGD/ gastric polyps noted which were biopsied small hiatal hernia (3) Insulin dependent type 2 diabetes mellitus: Code(s): E11.9 - Type 2 diabetes mellitus without complications; Z79.4 - custodial (current) use of insulin Status: Acute Assessment and Plan: Hold basal insulin for planned EGD. Initiate sliding scale insulin, Accu-Cheks, and hypoglycemic protocol. hemoglobin A1c on 06/24/2021 at 6. Accu-Cheks at goal (4) Hypertension: Code(s): I10 - Essential (primary) hypertension Status: Acute Assessment and Plan: Blood pressures are stable despite such profound anemia. Her antihypertensives will be reviewed and resumed as appropriate. (5) Chronic respiratory failure with hypoxia: Code(s): J96.11 - Chronic respiratory failure with hypoxia Status: Acute Assessment and Plan: She is at her baseline oxygen requirement. on 3 L oxygen at home (6) End-stage renal disease on hemodialysis: Code(s): N18.6 - End stage renal disease; Z99.2 - Dependence on renal dialysis Status: Acute Assessment and Plan: Nephrology consulted for dialysis. Additional Plan recent 06/25 admission for pneumonia related to COVID Subjective Date/time seen: 07/26/21 11:05 Interval history: HPI:This is an 86-year-old female with end-stage renal disease on hemodialysis, type 2 diabetes myelitis, chronic respiratory failure on oxygen, chronic obstructive pulmonary disease, and hypertension who presented to the emergency department for further treatment and evaluation after she was told that her hemoglobin was low on labs drawn Sunday afternoon with dialysis. The patient is a fair historian but she is also quite hard of hearing and as such some of the following is supplemented via a review of her electronic medical records. Patient reports having dark stools for quite some time however it looks like she does take iron at home. She does not know how long she has been having dark stools, however, or if they have changed in quantity or quality. She also reports a nondescript, mild aching discomfort in the supraumbilical region though she goes on to say that is not significant and she has not required analgesics for the discomfort. She does have GERD symptoms on occasion though nothing significant or no change in that recently. More recently she has been feeling increasingly short of breath from baseline and she also endorses mild lightheadedness and dizziness. On arrival to the emergency department her vital signs were stable. CBC showed a profound macrocytic anemia with a hemoglobin and hematocrit of 4.8 and 16.3% respectively. A rectal exam done in the emergency department showed a moderate amount of black stool which was Hemoccult positive and she is being admitted in this setting. At the time my evaluation she has no specific complaints. 07/26/2021he underwent EGD today. Feels otherwise okay no shortness of breath or chest pain. Has not had any bowel movement today Review of Systems Review of Systems: All systems reviewed & are unremarkable except as noted in HPI and below ( HPI) Exam Narrative: General: Chronically ill-appearing elderly female nearly supine in bed. HEENT: PERRL, EOMI. Sclerae anicteric. Oral mucosa moist. Multiple missing teeth.
[2021-07-26 11:30] LABS: Glucose Point of Care 109 mg/dl (65-105)
[2021-07-26] MEDS: SODIUM CHLORIDE 0.9% IV 500 ML 10 ML IV CONT (11:32)
--- NOTE | 2021-07-26 11:39 | WPDANESEPPF ---
Anes - Initial Pre Proc Eval Procedure: Operation Date: 07/26/21 12:00 Proposed Procedures p Esophagogastroduodenoscopy - Hans Appiah MD Date/Time: 07/26/21 11:39 Surgeon: Arash Dangelo MD Pre Op Diagnosis: Anemia/GI Bleed/Chronic Renal Failure /dialysis Patient Data Age: 86 Gender: F Height: 1.68 m Weight: 68.5 kg Last Vital Signs Temp 37.0 C 07/26/21 11:21 Pulse 85 07/26/21 11:21 Resp 16 07/26/21 11:21 BP 148/41 H 07/26/21 11:21 Pulse Ox 100 07/26/21 11:21 Allergies Allergy/AdvReac Type Severity Reaction Status Date / Time No Known Allergies Allergy Verified 07/25/21 13:45 Home Medications Medication Instructions Recorded Confirmed Type Levemir FlexTouch U-100 Insuln 15 unit SUBCUT HS 06/22/21 07/25/21 History atorvastatin 20 mg PO DAILY 06/22/21 07/25/21 History clonidine HCl 0.1 mg PO TID 06/22/21 07/25/21 History ergocalciferol (vitamin D2) 50,000 unit PO WEEKLY 06/22/21 07/25/21 History ferrous [id number] conc 1 cap PO DAILY 06/22/21 07/25/21 History furosemide 40 mg PO DAILY 06/22/21 07/25/21 History isosorbide mononitrate 30 mg PO DAILY 06/22/21 07/25/21 History latanoprost 1 drp EACH EYE DAILY 06/22/21 07/25/21 History levothyroxine [Synthroid] 150 mcg PO DAILY 06/22/21 07/25/21 History pantoprazole 40 mg PO DAILY 06/22/21 07/25/21 History spironolactone 12.5 mg PO DAILY 06/22/21 07/25/21 History Laboratory Tests 07/25/21 07/25/21 07/25/21 08:51 16:39 19:48 WBC RBC Hgb Hct MCV MCH MCHC RDW Plt Count MPV Immature Gran % (Auto) Neut % (Auto) Lymph % (Auto) [place] % (Auto) Eos % (Auto) Baso % (Auto) Lymph # (Auto) [place] # (Auto) Eos # (Auto) Baso # (Auto) Abs Immat Gran (auto) Absolute Neuts (auto) Absolute Nucleated RBC Nucleated RBC % Sodium Potassium Chloride Carbon Dioxide Anion Gap BUN Creatinine Estim Creat Clear Calc Estimated GFR Glucose POC Capillary Glucose 112 mg/dl H mg/dl (65-105) Calcium Phosphorus Magnesium Total Bilirubin AST ALT Alkaline Phosphatase Total Protein Albumin Vitamin B12 Folate Hep Bs Antigen Negative (Negative) Hep Bs Antibody Negative Blood Type A Positive Antibody Screen Negative Crossmatch See Detail 07/26/21 07/26/21 07/26/21 06:04 06:04 11:27 WBC 14.4 K/mm3 H K/mm3 (4.5-10.0) RBC 2.31 M/mm3 L M/mm3 (4.2-5.4) Hgb 7.2 g/dL L g/dL (12.0-15.0) Hct 23.0 % L % (37.0-47.0) MCV 99.6 fl D fl (80-100) MCH 31.2 pg pg (26-34) MCHC 31.3 g/dl L g/dl (32-36) RDW 18.6 % H % (11.5-14.5) Plt Count 278 k/mm3 k/mm3 (150-375) MPV 10.8 fl H fl (7.4-10.4) Immature Gran % (Auto) 0.7 % H % (0-0.5) Neut % (Auto) 84.2 % H % (45.5-73.1) Lymph % (Auto) 6.4 % L % (18.3-44.2) [place] % (Auto) 7.5 % % (2.6-8.5) Eos % (Auto) 0.8 % % (0-4.4) Baso % (Auto) 0.4 % % (0.2-1.2) Lymph # (Auto) 0.93 K/mm3 K/mm3 (0.9-3.2) [place] # (Auto) 1.1 K/mm3 H K/mm3 (0.1-0.6) Eos # (Auto) 0.1 K/mm3 K/mm3 (0-0.3) Baso # (Auto) 0.1 K/mm3 K/mm3 (0.0-0.1) Abs Immat Gran (auto) 0.10 K/mm3 H K/mm3 (0.00-0.031) Absolute Neuts (auto) 12.2 K/mm3 H K/mm3 (1.3-6.7) Absolute Nucleated RBC 0.0 K/mm3 K/mm
--- NOTE | 2021-07-26 13:03 | SUR.PHASEII ---
Dr. Solano at bedside. Aware of vital signs. No new orders. Will continue to monitor.
[2021-07-26] MEDS: ATORVASTATIN 20 MG TABLET PO (14:11)
[2021-07-26] MEDS: ISOSORBIDE MONONITRATE 30 MG TAB.ER.24H PO (14:11)
[2021-07-26] MEDS: PANTOPRAZOLE 40 MG TABLET PO (14:11)
[2021-07-26] MEDS: LATANOPROST 0.005% OP SOLN 2.5 ML BTL 1 DROP EACH EYE (14:11)
[2021-07-26] MEDS: cloNIDine HCL 0.1 MG TABLET PO ×2 (14:11→16:54)
[2021-07-26] MEDS: FUROSEMIDE 40 MG TABLET PO (14:20)
--- NOTE | 2021-07-26 16:11 | PC.NURSE ---
On 07/06/21, the student, Kim Bills, provided care and completed [facility] documentation on this patient. I have reviewed the student's documentation and agree with the findings
[2021-07-26] MEDS: INSULIN GLARGINE (*BKC) 100 UNITS/ML 15 UNITS SUB-Q (20:23)
[2021-07-26 20:47] LABS: Glucose Point of Care 152 mg/dl (65-105)
[2021-07-27] VITALS (21 sets, daily range): BP systolic 117–187; BP diastolic 27–83; PULSE 68–98; RESP 16–18; TEMP 35.9–36.8; O2SAT 100
[2021-07-27] MEDS: LEVOTHYROXINE SODIUM 150 MCG TABLET PO (05:53)
[2021-07-27 06:07] LABS: Basophils Absolute Auto 0.1 K/mm3 (0.0-0.1); Basophils Percent Auto 0.8 % (0.2-1.2); Eosinophils Absolute Auto 0.2 K/mm3 (0-0.3); Eosinophils Percent Auto 1.6 % (0-4.4); Hematocrit 23.9 % (37.0-47.0); Hemoglobin 7.3 g/dL (12.0-15.0); Immature Granulocyte Absolute 0.08 K/mm3 (0.00-0.031); Immature Granulocyte Percent A 0.8 % (0-0.5); Lymphocytes Percent Auto 9.1 % (18.3-44.2); Mean Corpuscular HGB Conc 30.5 g/dl (32-36); Mean Corpuscular Hemoglobin 31.1 pg (26-34); Mean Corpuscular Volume 101.7 fl (80-100); Mean Platelet Volume 10.7 fl (7.4-10.4); Monocytes Percent Auto 10.4 % (2.6-8.5); Neutrophils Absolute Auto 7.6 K/mm3 (1.3-6.7); Neutrophils Percent Auto 77.3 % (45.5-73.1); Platelet Count Result 226 k/mm3 (150-375); Red Blood Count 2.35 M/mm3 (4.2-5.4); Red Cell Distribution Width 18.1 % (11.5-14.5); White Blood Count 9.9 K/mm3 (4.5-10.0)
[2021-07-27 06:31] LABS: Alanine Aminotransferase 6 U/L (4-35); Albumin Level 3.4 g/dL (3.5-5.1); Alkaline Phosphatase 57 U/L (38-126); Anion Gap 4 mmol/L (8-16); Aspartate Amino Transferase 16 U/L (14-36); Bilirubin,Total 0.3 mg/dL (0.2-1.3); Blood Urea Nitrogen 27 mg/dL (7-17); Calcium 8.7 mg/dL (8.4-10.2); Carbon Dioxide 28 mmol/L (22-30); Chloride 105 mmol/L (98-107); Estimated CRCL calculation 14 ml/min; Estimated Glomerular Filt Rate 18; Glucose 101 mg/dL (65-110); Magnesium 2.2 mg/dL (1.6-2.3); Potassium 4.9 mmol/L (3.4-5.0); Sodium 137 mmol/L (137-145)
[2021-07-27 07:46] LABS: Glucose Point of Care 92 mg/dl (65-105)
[2021-07-27] MEDS: ATORVASTATIN 20 MG TABLET PO (08:02)
[2021-07-27] MEDS: ISOSORBIDE MONONITRATE 30 MG TAB.ER.24H PO (08:03)
[2021-07-27] MEDS: cloNIDine HCL 0.1 MG TABLET PO ×2 (08:03→22:18)
[2021-07-27] MEDS: PANTOPRAZOLE 40 MG TABLET PO (08:03)
[2021-07-27] MEDS: LATANOPROST 0.005% OP SOLN 2.5 ML BTL 1 DROP EACH EYE (08:03)
--- NOTE | 2021-07-27 08:59 | WPDANESPN ---
Anes - Prog Note Post-Op Date/Time: 07/27/21 08:59 Cardiovascular status: normal Respiratory status: normal Airway patency: baseline Mental status: baseline Post-Op hydration status: normal Vital Signs: Last Vital Signs Temp 36.0 C L 07/27/21 04:56 Pulse 72 07/27/21 04:56 Resp 18 07/27/21 04:56 BP 142/38 H 07/27/21 04:56 Pulse Ox 100 07/27/21 08:00 Pain Score (VAS): 2 I/O: Intake & Output 07/26/21 07/27/21 07/27/21 23:59 07:59 15:59 Intake Total 240 0 600 Output Total 0 Balance 240 0 600 Laboratory Tests 07/27/21 05:59 07/27/21 05:59 07/26/21 07/26/21 07/27/21 11:27 20:25 05:59 WBC 9.9 RBC 2.35 L Hgb 7.3 L Hct 23.9 L MCV 101.7 H MCH 31.1 MCHC 30.5 L RDW 18.1 H Plt Count 226 MPV 10.7 H Immature Gran % (Auto) 0.8 H Neut % (Auto) 77.3 H Lymph % (Auto) 9.1 L [place] % (Auto) 10.4 H Eos % (Auto) 1.6 Baso % (Auto) 0.8 Lymph # (Auto) 0.90 [place] # (Auto) 1.0 H Eos # (Auto) 0.2 Baso # (Auto) 0.1 Abs Immat Gran (auto) 0.08 H Absolute Neuts (auto) 7.6 H Absolute Nucleated RBC 0.0 Nucleated RBC % 0.0 Sodium Potassium Chloride Carbon Dioxide Anion Gap BUN Creatinine Estim Creat Clear Calc Estimated GFR Glucose POC Capillary Glucose 109 H 152 H Calcium Magnesium Total Bilirubin AST ALT Alkaline Phosphatase Total Protein Albumin 07/27/21 07/27/21 05:59 07:43 WBC RBC Hgb Hct MCV MCH MCHC RDW Plt Count MPV Immature Gran % (Auto) Neut % (Auto) Lymph % (Auto) [place] % (Auto) Eos % (Auto) Baso % (Auto) Lymph # (Auto) [place] # (Auto) Eos # (Auto) Baso # (Auto) Abs Immat Gran (auto) Absolute Neuts (auto) Absolute Nucleated RBC Nucleated RBC % Sodium 137 Potassium 4.9 Chloride 105 Carbon Dioxide 28 Anion Gap 4 L BUN 27 H D Creatinine 2.50 H Estim Creat Clear Calc 14 Estimated GFR 18 L Glucose 101 POC Capillary Glucose 92 Calcium 8.7 Magnesium 2.2 Total Bilirubin 0.3 AST 16 ALT 6 Alkaline Phosphatase 57 Total Protein 6.0 L Albumin 3.4 L Post-procedural complaints: none Patient Feedback: Patient satisfied with anesthetic care.
[2021-07-27 11:32] LABS: Glucose Point of Care 126 mg/dl (65-105)
--- NOTE | 2021-07-27 11:40 | PM.IMPN ---
Progress Note: A&P Assessment and Plan (1) Profound anemia: Code(s): D64.9 - Anemia, unspecified Status: Acute Assessment and Plan: Secondary to GI bleeding in addition to chronic anemia. She will be transfused to a stable hemoglobin. Status post packed red blood cell transfusion H&H 7.2 on 07/26/2021 after transfusion Baseline hemoglobin 12.4 on 06/28/2021 No evidence of coagulopathy INR 1.1 PTT normal platelet count normal (2) GI bleed: Code(s): K92.2 - Gastrointestinal hemorrhage, unspecified Status: Acute Assessment and Plan: Dr. Dominguez has been consulted and Status post EGD/ gastric polyps noted which were biopsied small hiatal hernia (3) Insulin dependent type 2 diabetes mellitus: Code(s): E11.9 - Type 2 diabetes mellitus without complications; Z79.4 - MCFP (current) use of insulin Status: Acute Assessment and Plan: Hold basal insulin for planned EGD. Initiate sliding scale insulin, Accu-Cheks, and hypoglycemic protocol. hemoglobin A1c on 06/24/2021 at 6. Accu-Cheks at goal (4) Hypertension: Code(s): I10 - Essential (primary) hypertension Status: Acute Assessment and Plan: Blood pressures are stable despite such profound anemia. Her antihypertensives will be reviewed and resumed as appropriate. (5) Chronic respiratory failure with hypoxia: Code(s): J96.11 - Chronic respiratory failure with hypoxia Status: Acute Assessment and Plan: She is at her baseline oxygen requirement. on 3 L oxygen at home (6) End-stage renal disease on hemodialysis: Code(s): N18.6 - End stage renal disease; Z99.2 - Dependence on renal dialysis Status: Acute Assessment and Plan: Nephrology consulted for dialysis. Additional Plan recent 06/25 admission for pneumonia related to COVID Subjective Date/time seen: 07/27/21 11:40 Interval history: HPI:This is an 86-year-old female with end-stage renal disease on hemodialysis, type 2 diabetes myelitis, chronic respiratory failure on oxygen, chronic obstructive pulmonary disease, and hypertension who presented to the emergency department for further treatment and evaluation after she was told that her hemoglobin was low on labs drawn Sunday afternoon with dialysis. The patient is a fair historian but she is also quite hard of hearing and as such some of the following is supplemented via a review of her electronic medical records. Patient reports having dark stools for quite some time however it looks like she does take iron at home. She does not know how long she has been having dark stools, however, or if they have changed in quantity or quality. She also reports a nondescript, mild aching discomfort in the supraumbilical region though she goes on to say that is not significant and she has not required analgesics for the discomfort. She does have GERD symptoms on occasion though nothing significant or no change in that recently. More recently she has been feeling increasingly short of breath from baseline and she also endorses mild lightheadedness and dizziness. On arrival to the emergency department her vital signs were stable. CBC showed a profound macrocytic anemia with a hemoglobin and hematocrit of 4.8 and 16.3% respectively. A rectal exam done in the emergency department showed a moderate amount of black stool which was Hemoccult positive and she is being admitted in this setting. At the time my evaluation she has no specific complaints. 07/26/2021he underwent EGD today. Feels otherwise okay no shortness of breath or chest pain. Has not had any bowel movement today 07/27/2021 no overnight events. Feels okay denies any chest pain or shortness of breath. Having had any bowel movement. Has not work with physical therapy yet. Review of Systems Review of Systems: All systems reviewed & are unremarkable except as noted in HPI and below ( HPI) Exam Narrativ
[2021-07-27 12:44] LABS: Iron 12 ug/dL (37-170)
[2021-07-27 12:54] LABS: Percent Iron Saturation 5 % (20-50)
--- NOTE | 2021-07-27 13:01 | PM.PNNEP ---
Progress Note: A&P Assessment and Plan (1) End stage renal disease: Code(s): N18.6 - End stage renal disease Status: Chronic Assessment and Plan: HD today to resume outpatient (// schedule) starting tomorrow follow electrolytes, volume status, and clearance (2) Profound anemia: Code(s): D64.9 - Anemia, unspecified Status: Acute Assessment and Plan: presumed GI bleed given but no significant findings on EGD Gastroenterology following PRBC transfusion per protocol high dose Epogen with dialysis check iron studies follow trend of H/H (3) Chronic respiratory failure with hypoxia: Code(s): J96.11 - Chronic respiratory failure with hypoxia Status: Chronic Assessment and Plan: on supplemental oxygen recent worsening SOB could be related to anemia follow respiratory status (4) HTN (hypertension): Code(s): I10 - Essential (primary) hypertension Status: Chronic Assessment and Plan: reasonable control at this time conitnue home BP medications follow trend of hemodynamics (5) Diabetes: Code(s): E11.9 - Type 2 diabetes mellitus without complications Status: Chronic Assessment and Plan: follow accuchecks on Lantus Will continue to follow. Subjective Date/time seen: 07/27/21 13:01 Tolerated dialysis treatment as well as EGD yesterday (with results noted) without any issue or problems; H/H has remains relatively stable at this time; no acute distress noted; hemodialysis treatment scheduled for today to get back on outpatient schedule; no apparent distress noted. Exam Narrative: General: chronically ill appearing female in NAD Heart: normal S1 and S2; no rub Lungs: decreased at the bases Abdomen: soft, nontender, nondistended, positive bowel sounds Extremities: no cyanosis or clubbing; no edema Skin: warm and intact Objective Data Vital Signs Vital Signs: Vital Signs Temp Pulse Resp BP Pulse Ox 07/27/21 08:00 100 07/27/21 04:56 36.0 C L 72 18 142/38 H 100 07/26/21 20:53 99 07/26/21 20:41 35.5 C L 85 18 115/38 L 100 07/26/21 20:30 35.6 C L 74 18 123/43 L 100 07/26/21 20:00 35.6 C L 74 18 123/43 L 100 Intake/Output Intake/Output: Intake & Output 07/24/21 07/25/21 07/26/21 07/27/21 23:59 23:59 23:59 23:59 Intake Total 1360 430 840 Output Total 3000 0 Balance 1360 -2570 840 Meds/Results Medications: Active Medications Generic Name Dose Route Start Last Admin Trade Name Freq PRN Reason Stop Dose Admin Atorvastatin Calcium 20 mg 07/26/21 09:00 07/27/21 08:02 Atorvastatin 20 Mg Tablet PO 20 mg DAILY LAUREN Administration Clonidine HCl 0.1 mg 07/26/21 09:00 07/27/21 08:03 Clonidine Hcl 0.1 Mg Tablet PO 0.1 mg TID LAUREN Administration Epoetin Samuel-epbx 10,000 units 07/27/21 18:54 Epoetin Samuel-Epbx 10,000 Units/Ml Vial IV PUSH 07/27/21 18:55 ONCE ONE Ergocalciferol 50,000 unit 08/01/21 09:00 Ergocalciferol 50,000 Unit Capsule PO WEEKLY LAUREN Furosemide 40 mg 07/26/21 09:00 07/26/21 14:20 Furosemide 40 Mg Tablet PO 40 mg DAILY LAUREN Administration Albumin Human 50 mls @ 999 mls/hr 07/26/21 05:14 Albutein IVPB 08/25/21 05:13 Q10M PRN HYPOTENSION Insulin Glargine 15 units 07/26/21 21:00 07/26/21 20:23 Insulin Glargine (*Bkc) 100 Units/Ml SUB-Q 08/25/21 20:59 15 units HS LAUREN Administration Isosorbide Mononitrate 30 mg 07/26/21 09:00 07/27/21 08:03 Isosorbide Mononitrate 30 Mg Tab.Er.24h PO 30 mg DAILY LAUREN Administration Latanoprost 1 drop 07/26/21 09:00 07/27/21 08:03 Latanoprost 0.005% Op Soln 2.5 Ml Btl EACH EYE 1 drop DAILY LAUREN Administration Levothyroxine Sodium 150 mcg 07/26/21 06:30 07/27/21 05:53 Levothyroxine Sodium 150 Mcg Tablet PO 150 mcg DAILY@0630 LAUREN Administration Pantoprazole Sodium 40 mg 07/26/21 09:00
--- NOTE | 2021-07-27 15:27 | WPDGIPROGNO ---
Progress Note: A&P Assessment and Plan (1) GI bleed: Code(s): K92.2 - Gastrointestinal hemorrhage, unspecified Status: Acute Assessment and Plan: 07/25 she had told the emergency room her stools were dark. They performed Hemoccult which was positive. I will schedule her for an EGD to be done tomorrow. I explained the risks and possible complications with her such as bleeding or perforation of the possible need for surgery to correct any complications, and possible cardiopulmonary complications. I explained that she will be sedated by Anesthesia 07/27 She has not had a bowel movement. There is no evidence of bleeding. I explained her that her EGD did not reveal any source of possible bleeding and H pylori was negative (2) Anemia: Code(s): D64.9 - Anemia, unspecified Status: Acute Assessment and Plan: sudden drop her hemoglobin from 14-5. Lately we have seen this often in dialysis patients but there is certainly a high probability that she has bleeding. She is receiving 2 units of packed red blood cells. 07/27current hemoglobin is 7.3 (3) Altered mental status: Code(s): R41.82 - Altered mental status, unspecified Status: Acute Assessment and Plan: her history is not sharp but she was able to give me the name of her primary care physician but not her medications (4) Chronic renal failure: Code(s): N18.9 - Chronic kidney disease, unspecified Status: Acute Assessment and Plan: she states that she has been on dialysis for several years Nephrology has been consulted and is following. She had dialysis yesterday and will repeat dialysis tomorrow I believe Subjective Date/time seen: 07/27/21 15:27 She is comfortable today. I discussed results of her EGD with basically no findings to suggest gastrointestinal bleeding. Also H pylori was negative. It seems that the dramatic drop in hemoglobin correlated with her dialysis. He had not passed blood in her stools that would have been seen if she lost several pt of blood from a lower GI source. Review of Systems Review of Systems: All systems reviewed & are unremarkable except as noted in HPI and below Exam Const: General: cooperative, no acute distress, confusion ( not sharp with her history) and poor hygiene Orientation/consciousness: confusion ( not sharp with her history) HENMT: Ears: hearing grossly impaired Resp: Auscultation: clear to auscultation bilaterally and diminished lung sounds Cardio: Rate: regular rate Rhythm: regular rhythm GI: GI Palp: Yes Soft to palpation and No Tenderness to palpation present (GI) Auscultation: normal bowel sounds Neuro: General: confusion ( not sharp with her history) Objective Data Vital Signs Vital Signs: Vital Signs - 24 hr 07/26/21 20:00 07/26/21 20:30 07/26/21 20:41 Temperature 35.6 C L 35.6 C L 35.5 C L Pulse Rate 74 74 85 Respiratory Rate 18 18 18 Blood Pressure 123/43 L 123/43 L 115/38 L Pulse Oximetry 100 100 100 07/26/21 20:53 07/27/21 04:56 07/27/21 08:00 Temperature 36.0 C L Pulse Rate 72 Respiratory Rate 18 Blood Pressure 142/38 H Pulse Oximetry 99 100 100 07/27/21 14:00 07/27/21 14:02 07/27/21 14:04 Temperature 36.3 C L Pulse Rate 76 75 80 Respiratory Rate 18 Blood Pressure 140/48 L 138/42 L 124/38 L Pulse Oximetry 100 Intake/Output Intake/Output: Intake & Output 07/24/21 07/25/21 07/26/21 07/27/21 23:59 23:59 23:59 23:59 Intake Total 1360 430 840 Output Total 3000 0 Balance 1360 -2570 840 Meds/Results Medications: Active Medications Generic Name Dose Route Start Last Admin Trade Name Freq PRN Reason Stop Dose Admin Atorvastatin Calcium 20 mg 07/26/21 09:00 07/27/21 08:02 Atorvastatin 20 Mg Tablet PO 20 mg DAILY LAUREN Administration Clonidine HCl 0.1 mg 07/26/21 09:00 07/27/21 08:03 Clonidine Hcl 0.1 Mg Tablet PO 0.1 mg TID LAUREN Administration Epoetin A
[2021-07-27 16:15] LABS: Glucose Point of Care 152 mg/dl (65-105)
[2021-07-27] MEDS: SODIUM CHLORIDE 0.9% IV 1,000 ML 100 ML IV CONT (18:10)
[2021-07-27] MEDS: EPOETIN ALFA-EPBX 10,000 UNITS/ML VIAL 10000 UNITS IV PUSH (20:30)
[2021-07-27 22:28] LABS: Glucose Point of Care 127 mg/dl (65-105)
[2021-07-28] VITALS (9 sets, daily range): BP systolic 128–152; BP diastolic 33–48; PULSE 71–83; RESP 16–20; TEMP 36–36.8; O2SAT 99–100
[2021-07-28] MEDS: LEVOTHYROXINE SODIUM 150 MCG TABLET PO (05:36)
[2021-07-28 07:28] LABS: Glucose Point of Care 109 mg/dl (65-105)
[2021-07-28 07:43] LABS: Glucose Point of Care 108 mg/dl (65-105)
[2021-07-28] MEDS: cloNIDine HCL 0.1 MG TABLET PO ×2 (07:58→16:38)
[2021-07-28] MEDS: ATORVASTATIN 20 MG TABLET PO (07:58)
[2021-07-28] MEDS: ISOSORBIDE MONONITRATE 30 MG TAB.ER.24H PO (07:59)
[2021-07-28] MEDS: LATANOPROST 0.005% OP SOLN 2.5 ML BTL 1 DROP EACH EYE (07:59)
[2021-07-28] MEDS: FUROSEMIDE 40 MG TABLET PO (07:59)
--- NOTE | 2021-07-28 09:31 | PM.IMPN ---
Progress Note: A&P Assessment and Plan (1) Profound anemia: Code(s): D64.9 - Anemia, unspecified Status: Acute Assessment and Plan: Secondary to GI bleeding in addition to chronic anemia. She will be transfused to a stable hemoglobin. Status post packed red blood cell transfusion H&H 7.2 on 07/26/2021 after transfusion Baseline hemoglobin 12.4 on 06/28/2021 No evidence of coagulopathy INR 1.1 PTT normal platelet count normal H&H dropped to 6.8 again will transfuse 1 more unit of PRBC today continue to monitor H&H (2) GI bleed: Code(s): K92.2 - Gastrointestinal hemorrhage, unspecified Status: Acute Assessment and Plan: Dr. Dominguez has been consulted and Status post EGD/ gastric polyps noted which were biopsied small hiatal hernia No plans for colonoscopy or capsule (3) Insulin dependent type 2 diabetes mellitus: Code(s): E11.9 - Type 2 diabetes mellitus without complications; Z79.4 - superintendent terminal (current) use of insulin Status: Acute Assessment and Plan: Hold basal insulin for planned EGD. Initiate sliding scale insulin, Accu-Cheks, and hypoglycemic protocol. hemoglobin A1c on 06/24/2021 at 6. Accu-Cheks at goal (4) Hypertension: Code(s): I10 - Essential (primary) hypertension Status: Acute Assessment and Plan: Blood pressures are stable despite such profound anemia. Her antihypertensives will be reviewed and resumed as appropriate. (5) Chronic respiratory failure with hypoxia: Code(s): J96.11 - Chronic respiratory failure with hypoxia Status: Chronic Assessment and Plan: She is at her baseline oxygen requirement. on 3 L oxygen at home (6) End-stage renal disease on hemodialysis: Code(s): N18.6 - End stage renal disease; Z99.2 - Dependence on renal dialysis Status: Acute Assessment and Plan: Nephrology consulted for dialysis. Additional Plan recent 06/25 admission for pneumonia related to COVID Subjective Date/time seen: 07/28/21 09:31 Interval history: HPI:This is an 86-year-old female with end-stage renal disease on hemodialysis, type 2 diabetes myelitis, chronic respiratory failure on oxygen, chronic obstructive pulmonary disease, and hypertension who presented to the emergency department for further treatment and evaluation after she was told that her hemoglobin was low on labs drawn Sunday afternoon with dialysis. The patient is a fair historian but she is also quite hard of hearing and as such some of the following is supplemented via a review of her electronic medical records. Patient reports having dark stools for quite some time however it looks like she does take iron at home. She does not know how long she has been having dark stools, however, or if they have changed in quantity or quality. She also reports a nondescript, mild aching discomfort in the supraumbilical region though she goes on to say that is not significant and she has not required analgesics for the discomfort. She does have GERD symptoms on occasion though nothing significant or no change in that recently. More recently she has been feeling increasingly short of breath from baseline and she also endorses mild lightheadedness and dizziness. On arrival to the emergency department her vital signs were stable. CBC showed a profound macrocytic anemia with a hemoglobin and hematocrit of 4.8 and 16.3% respectively. A rectal exam done in the emergency department showed a moderate amount of black stool which was Hemoccult positive and she is being admitted in this setting. At the time my evaluation she has no specific complaints. 07/26/2021he underwent EGD today. Feels otherwise okay no shortness of breath or chest pain. Has not had any bowel movement today 07/27/2021 no overnight events. Feels okay denies any chest pain or shortness of breath. Having had any bowel movement. Has not work with physical therapy yet.
[2021-07-28 09:52] LABS: Basophils Absolute Auto 0.1 K/mm3 (0.0-0.1); Basophils Percent Auto 0.7 % (0.2-1.2); Eosinophils Absolute Auto 0.2 K/mm3 (0-0.3); Hematocrit 22.4 % (37.0-47.0); Immature Granulocyte Absolute 0.06 K/mm3 (0.00-0.031); Immature Granulocyte Percent A 0.8 % (0-0.5); Lymphocytes Absolute Auto 0.63 K/mm3 (0.9-3.2); Lymphocytes Percent Auto 8.9 % (18.3-44.2); Mean Corpuscular HGB Conc 30.8 g/dl (32-36); Mean Corpuscular Hemoglobin 30.9 pg (26-34); Mean Corpuscular Volume 100.4 fl (80-100); Mean Platelet Volume 10.6 fl (7.4-10.4); Monocytes Absolute Auto 0.7 K/mm3 (0.1-0.6); Monocytes Percent Auto 9.2 % (2.6-8.5); Neutrophils Absolute Auto 5.5 K/mm3 (1.3-6.7); Neutrophils Percent Auto 77.4 % (45.5-73.1); Platelet Count Result 210 k/mm3 (150-375); Red Blood Count 2.23 M/mm3 (4.2-5.4); Red Cell Distribution Width 16.7 % (11.5-14.5); White Blood Count 7.1 K/mm3 (4.5-10.0)
[2021-07-28 09:54] LABS: Hemoglobin 6.9 g/dL (12.0-15.0)
[2021-07-28 10:03] LABS: Anion Gap 4 mmol/L (8-16); Blood Urea Nitrogen 25 mg/dL (7-17); Calcium 8.4 mg/dL (8.4-10.2); Carbon Dioxide 35 mmol/L (22-30); Chloride 98 mmol/L (98-107); Estimated CRCL calculation 16 ml/min; Estimated Glomerular Filt Rate 21; Glucose 191 mg/dL (65-110); Potassium 3.8 mmol/L (3.4-5.0); Sodium 137 mmol/L (137-145)
--- NOTE | 2021-07-28 11:41 | PM.PNNEP ---
Progress Note: A&P Assessment and Plan (1) End stage renal disease: Code(s): N18.6 - End stage renal disease Status: Chronic Assessment and Plan: HD yesterday and plan HD tomorrow to maintain outpatient (M//) schedule follow electrolytes, volume status, and clearance (2) Profound anemia: Code(s): D64.9 - Anemia, unspecified Status: Acute Assessment and Plan: presumed GI bleed given but no significant findings on EGD Gastroenterology following PRBC transfusion per protocol high dose Epogen with dialysis check iron studies follow trend of H/H (3) Chronic respiratory failure with hypoxia: Code(s): J96.11 - Chronic respiratory failure with hypoxia Status: Chronic Assessment and Plan: on supplemental oxygen recent worsening SOB could be related to anemia follow respiratory status (4) HTN (hypertension): Code(s): I10 - Essential (primary) hypertension Status: Chronic Assessment and Plan: reasonable control at this time conitnue home BP medications follow trend of hemodynamics (5) Diabetes: Code(s): E11.9 - Type 2 diabetes mellitus without complications Status: Chronic Assessment and Plan: follow accuchecks on Lantus Will continue to follow. Subjective Date/time seen: 07/28/21 11:41 Tolerated dialysis yesterday evening without any issues or problems; no apparent distress noted; low H/H noted by AM labs; no other acute complaints voiced at the time of my visit; no other events overnight or earlier this morning. Exam Narrative: General: chronically ill appearing female in NAD Heart: normal S1 and S2; no rub Lungs: decreased at the bases Abdomen: soft, nontender, nondistended, positive bowel sounds Extremities: no cyanosis or clubbing; no edema Skin: no rash or nodules Objective Data Vital Signs Vital Signs: Vital Signs Temp Pulse Resp BP Pulse Ox 07/28/21 08:00 100 07/28/21 03:52 36.3 C L 74 17 152/48 H 100 07/27/21 22:15 35.9 C L 82 16 148/44 H 100 07/27/21 22:14 141/61 H 07/27/21 22:12 35.9 C L 82 16 148/44 H 100 07/27/21 21:35 36.6 C 82 16 166/57 H 07/27/21 21:21 68 153/62 H 07/27/21 21:00 71 156/59 H 07/27/21 20:45 81 166/49 H 07/27/21 20:30 78 161/55 H 07/27/21 20:15 75 177/63 H 07/27/21 20:00 77 157/53 H 100 07/27/21 19:45 83 177/67 H 07/27/21 19:30 86 173/47 H 07/27/21 19:15 85 161/63 H 07/27/21 19:05 83 168/68 H 07/27/21 18:51 91 178/69 H 07/27/21 18:40 36.8 C 98 18 187/83 H 07/27/21 14:04 80 124/38 L 07/27/21 14:02 75 138/42 L 07/27/21 14:00 36.3 C L 76 18 140/48 L 100 Intake/Output Intake/Output: Intake & Output 07/25/21 07/26/21 07/27/21 07/28/21 23:59 23:59 23:59 23:59 Intake Total 6547 547 3893 660 Output Total 3000 2000 100 Balance 1360 -1190 -591 560 Meds/Results Medications: Active Medications Generic Name Dose Route Start Last Admin Trade Name Terrell PRN Reason Stop Dose Admin Atorvastatin Calcium 20 mg 07/26/21 09:00 07/28/21 07:58 Atorvastatin 20 Mg Tablet PO 20 mg DAILY LAUREN Administration Clonidine HCl 0.1 mg 07/26/21 09:00 07/28/21 07:58 Clonidine Hcl 0.1 Mg Tablet PO 0.1 mg TID LAUREN Administration Ergocalciferol 50,000 unit 08/01/21 09:00 Ergocalciferol 50,000 Unit Capsule PO WEEKLY LAUREN Furosemide 40 mg 07/26/21 09:00 07/28/21 07:59 Furosemide 40 Mg Tablet PO 40 mg DAILY LAUREN Administration Albumin Human 50 mls @ 999 mls/hr 07/26/21 05:14 Albutein IVPB 08/25/21 05:13 Q10M PRN HYPOTENSION Sodium Chloride 250 mls @ 30 mls/hr 07/28/21 10:01 07/28/21 13:39 Normal Saline Iv IV CONT 07/28/21 18:20 Not Given .Q8H20M STA Insulin Glargine 15 units 07/26/21 21:00 07/27/21 22:15 Insulin Glargine (*Bkc) 100 Units/Ml SUB-Q 08/25/21 20:59 Not Give
--- NOTE | 2021-07-28 11:41 | P.PNNP_ITS ---
Progress Note: A&P Assessment and Plan (1) End stage renal disease: Code(s): N18.6 - End stage renal disease Status: Chronic Assessment and Plan: * HD yesterday and plan HD tomorrow to maintain outpatient (M//) schedule * follow electrolytes, volume status, and clearance (2) Profound anemia: Code(s): D64.9 - Anemia, unspecified Status: Acute Assessment and Plan: * presumed GI bleed given but no significant findings on EGD * Gastroenterology following * PRBC transfusion per protocol * high dose Epogen with dialysis * check iron studies * follow trend of H/H (3) Chronic respiratory failure with hypoxia: Code(s): J96.11 - Chronic respiratory failure with hypoxia Status: Chronic Assessment and Plan: * on supplemental oxygen * recent worsening SOB could be related to anemia * follow respiratory status (4) HTN (hypertension): Code(s): I10 - Essential (primary) hypertension Status: Chronic Assessment and Plan: * reasonable control at this time * conitnue home BP medications * follow trend of hemodynamics (5) Diabetes: Code(s): E11.9 - Type 2 diabetes mellitus without complications Status: Chronic Assessment and Plan: * follow accuchecks * on Lantus Will continue to follow. Subjective Date/time seen: 07/28/21 11:41 Tolerated dialysis yesterday evening without any issues or problems; no apparent distress noted; low H/H noted by AM labs; no other acute complaints voiced at the time of my visit; no other events overnight or earlier this morning. Exam Narrative: General: chronically ill appearing female in NAD Heart: normal S1 and S2; no rub Lungs: decreased at the bases Abdomen: soft, nontender, nondistended, positive bowel sounds Extremities: no cyanosis or clubbing; no edema Skin: no rash or nodules Objective Data Vital Signs Vital Signs: Vital Signs Temp Pulse Resp BP Pulse Ox 07/28/21 08:00 100 07/28/21 03:52 36.3 C L 74 17 152/48 H 100 07/27/21 22:15 35.9 C L 82 16 148/44 H 100 07/27/21 22:14 141/61 H 07/27/21 22:12 35.9 C L 82 16 148/44 H 100 07/27/21 21:35 36.6 C 82 16 166/57 H 07/27/21 21:21 68 153/62 H 07/27/21 21:00 71 156/59 H 07/27/21 20:45 81 166/49 H 07/27/21 20:30 78 161/55 H 07/27/21 20:15 75 177/63 H 07/27/21 20:00 77 157/53 H 100 07/27/21 19:45 83 177/67 H 07/27/21 19:30 86 173/47 H 07/27/21 19:15 85 161/63 H 07/27/21 19:05 83 168/68 H 07/27/21 18:51 91 178/69 H 07/27/21 18:40 36.8 C 98 18 187/83 H 07/27/21 14:04 80 124/38 L 07/27/21 14:02 75 138/42 L 07/27/21 14:00 36.3 C L 76 18 140/48 L 100 Intake/Output Intake/Output: Intake & Output 07/25/21 07/26/21 07/27/21 07/28/21 23:59 23:59 23:59 23:59 Intake Total 8741 534 5768 660 Output Total 3000 2000 100 Balance 9656 -1664 -042 560 Meds/Results Medications: Active Medications Generic Name Dose Route Start Last Admin Trade Name Orvilleq PRN Reason Stop Dose Admin Atorvastatin Calcium 20 mg 07/26/21 09:00 07/28/21 07:58
[2021-07-28 11:47] LABS: Glucose Point of Care 136 mg/dl (65-105)
[2021-07-28] MEDS: PANTOPRAZOLE 40 MG TABLET PO (13:49)
[2021-07-28 16:33] LABS: Glucose Point of Care 128 mg/dl (65-105)
--- NOTE | 2021-07-28 16:35 | PC.NURSE ---
1300 cLONIDINE DOSE HELD DUE TO BP 128/40, DR RAY NOTIFIED .
[2021-07-28 19:22] LABS: Hematocrit 23.6 % (37.0-47.0); Hemoglobin 7.3 g/dL (12.0-15.0)
[2021-07-28] MEDS: INSULIN GLARGINE (*BKC) 100 UNITS/ML 15 UNITS SUB-Q (20:30)
[2021-07-28 22:29] LABS: Glucose Point of Care 129 mg/dl (65-105)
[2021-07-29] VITALS (22 sets, daily range): BP systolic 91–172; BP diastolic 36–63; PULSE 53–85; RESP 14–18; TEMP 35.5–36.8; O2SAT 95–100
[2021-07-29 05:10] LABS: Basophils Percent Auto 0.6 % (0.2-1.2); Eosinophils Absolute Auto 0.3 K/mm3 (0-0.3); Eosinophils Percent Auto 4.5 % (0-4.4); Hematocrit 24.9 % (37.0-47.0); Hemoglobin 7.8 g/dL (12.0-15.0); Immature Granulocyte Absolute 0.05 K/mm3 (0.00-0.031); Immature Granulocyte Percent A 0.8 % (0-0.5); Lymphocytes Absolute Auto 0.73 K/mm3 (0.9-3.2); Lymphocytes Percent Auto 11.3 % (18.3-44.2); Mean Corpuscular HGB Conc 31.3 g/dl (32-36); Mean Corpuscular Hemoglobin 31.7 pg (26-34); Mean Corpuscular Volume 101.2 fl (80-100); Mean Platelet Volume 10.9 fl (7.4-10.4); Monocytes Absolute Auto 0.7 K/mm3 (0.1-0.6); Monocytes Percent Auto 10.5 % (2.6-8.5); Neutrophils Absolute Auto 4.7 K/mm3 (1.3-6.7); Neutrophils Percent Auto 72.3 % (45.5-73.1); Platelet Count Result 231 k/mm3 (150-375); Red Blood Count 2.46 M/mm3 (4.2-5.4); Red Cell Distribution Width 15.6 % (11.5-14.5); White Blood Count 6.5 K/mm3 (4.5-10.0)
[2021-07-29 05:27] LABS: Anion Gap 6 mmol/L (8-16); Blood Urea Nitrogen 41 mg/dL (7-17); Calcium 8.3 mg/dL (8.4-10.2); Carbon Dioxide 31 mmol/L (22-30); Chloride 98 mmol/L (98-107); Estimated CRCL calculation 12 ml/min; Estimated Glomerular Filt Rate 15; Glucose 92 mg/dL (65-110); Sodium 135 mmol/L (137-145)
[2021-07-29 06:01] LABS: Iron 23 ug/dL (37-170)
[2021-07-29 06:12] LABS: Percent Iron Saturation 10 % (20-50)
[2021-07-29] MEDS: LEVOTHYROXINE SODIUM 150 MCG TABLET PO (06:22)
[2021-07-29 07:44] LABS: Glucose Point of Care 83 mg/dl (65-105)
[2021-07-29] MEDS: LATANOPROST 0.005% OP SOLN 2.5 ML BTL 1 DROP EACH EYE (08:09)
[2021-07-29] MEDS: SODIUM CHLORIDE 0.9% IV 1,000 ML 999 ML IV CONT (10:11)
[2021-07-29] MEDS: EPOETIN ALFA-EPBX 10,000 UNITS/ML VIAL 20000 UNITS IV PUSH (10:12)
[2021-07-29] MEDS: IRON SUCROSE COMPLEX 200 MG in SODIUM CHLORIDE 0.9% IV 50 ML 120 MG IVPB (10:12)
--- NOTE | 2021-07-29 10:19 | PCOTNOTE ---
Attempted to see patient twice this am. First attempt, patient was unavailable with nursing. Second attempt, patient was off floor for dialysis.
--- NOTE | 2021-07-29 11:30 | PM.PNNEP ---
Progress Note: A&P Assessment and Plan (1) End stage renal disease: Code(s): N18.6 - End stage renal disease Status: Chronic Assessment and Plan: HD today and plan HD tomorrow to maintain outpatient (M/W/F) schedule follow electrolytes, volume status, and clearance (2) Profound anemia: Code(s): D64.9 - Anemia, unspecified Status: Acute Assessment and Plan: presumed GI bleed but no significant findings on EGD Gastroenterology following PRBC transfusion per protocol high dose Epogen with dialysis anemia studies with iron deficiency - dose with IV venofer with HD follow trend of H/H (3) Chronic respiratory failure with hypoxia: Code(s): J96.11 - Chronic respiratory failure with hypoxia Status: Chronic Assessment and Plan: on supplemental oxygen recent worsening SOB could be related to anemia follow respiratory status (4) HTN (hypertension): Code(s): I10 - Essential (primary) hypertension Status: Chronic Assessment and Plan: reasonable control at this time conitnue home BP medications follow trend of hemodynamics (5) Diabetes: Code(s): E11.9 - Type 2 diabetes mellitus without complications Status: Chronic Assessment and Plan: follow accuchecks on Lantus Will continue to follow. Subjective Date/time seen: 07/29/21 11:30 Patient tolerating hemodialysis treatment at the time of my visit (seen on HD at ~ 11:20AM); no apparent distress noted; no issues/events overnight or earlier this AM; H/H relatively stable. Exam Narrative: General: chronically ill appearing female in NAD Heart: normal S1 and S2; no rub Lungs: decreased at the bases Abdomen: soft, nontender, nondistended, positive bowel sounds Extremities: no cyanosis or clubbing; no edema Skin: warm and dry Objective Data Vital Signs Vital Signs: Vital Signs Temp Pulse Resp BP Pulse Ox 07/29/21 11:15 72 140/45 L 07/29/21 10:55 67 168/56 H 07/29/21 10:35 64 155/55 H 07/29/21 10:15 69 148/54 H 07/29/21 09:55 77 146/39 H 07/29/21 09:35 65 172/63 H 07/29/21 09:15 67 156/59 H 07/29/21 08:55 67 160/54 H 07/29/21 08:39 69 157/61 H 07/29/21 08:30 36.8 C 69 16 156/58 H 07/29/21 08:00 98 07/29/21 03:59 36.5 C 61 16 156/48 H 98 07/28/21 21:26 99 07/28/21 20:11 36.8 C 71 17 142/40 H 100 07/28/21 19:24 36.8 C 71 17 129/41 L 100 07/28/21 17:04 36.1 C L 73 20 146/47 H 100 07/28/21 14:00 36.0 C L 83 16 150/42 H 100 07/28/21 13:41 36.6 C 73 18 128/40 L 99 07/28/21 13:23 36.7 C 75 18 134/33 L 99 Intake/Output Intake/Output: Intake & Output 07/26/21 07/27/21 07/28/21 07/29/21 23:59 23:59 23:59 23:59 Intake Total 430 1280 1710 520 Output Total 3000 2000 150 100 Balance -2570 -720 1560 420 Meds/Results Medications: Active Medications Generic Name Dose Route Start Last Admin Trade Name Freq PRN Reason Stop Dose Admin Atorvastatin Calcium 20 mg 07/26/21 09:00 07/28/21 07:58 Atorvastatin 20 Mg Tablet PO 20 mg DAILY LAUREN Administration Clonidine HCl 0.1 mg 07/26/21 09:00 07/29/21 10:49 Clonidine Hcl 0.1 Mg Tablet PO Not Given TID LAUREN Epoetin Samuel-epbx 20,000 units 07/29/21 22:58 07/29/21 10:12 Epoetin Samuel-Epbx 10,000 Units/Ml Vial IV PUSH 07/29/21 22:59 20,000 units ONCE ONE Administration Ergocalciferol 50,000 unit 08/01/21 09:00 Ergocalciferol 50,000 Unit Capsule PO WEEKLY LAUREN Furosemide 40 mg 07/26/21 09:00 07/28/21 07:59 Furosemide 40 Mg Tablet PO 40 mg DAILY LAUREN Administration Albumin Human 50 mls @ 999 mls/hr 07/26/21 05:14 Albutein IVPB 08/25/21 05:13 Q10M PRN HYPOTENSION Iron Sucrose 200 mg/ Sodium 60 mls @ 120 mls/hr 07/29/21 15:59 07/29/21 10:12 Chloride IVPB 07/29/21 16:00 120 mls/hr ONCE ONE Administration Insulin Glargi
--- NOTE | 2021-07-29 12:47 | PCOTNOTE ---
Attempted to see patient this pm, however patient still off floor at this time.
[2021-07-29] MEDS: ATORVASTATIN 20 MG TABLET PO (13:20)
[2021-07-29] MEDS: PANTOPRAZOLE 40 MG TABLET PO (13:20)
--- NOTE | 2021-07-29 13:40 | PM.IMPN ---
Progress Note: A&P Assessment and Plan (1) Profound anemia: Code(s): D64.9 - Anemia, unspecified Status: Acute Assessment and Plan: Secondary to GI bleeding in addition to chronic anemia. She will be transfused to a stable hemoglobin. Status post packed red blood cell transfusion H&H 7.2 on 07/26/2021 after transfusion Baseline hemoglobin 12.4 on 06/28/2021 No evidence of coagulopathy INR 1.1 PTT normal platelet count normal H&H dropped to 6.8 again transfused 1 unit of PRBC 07/28/2021 H&H appropriately increased 7.8 will monitor that again (2) GI bleed: Code(s): K92.2 - Gastrointestinal hemorrhage, unspecified Status: Acute Assessment and Plan: Dr. Dominguez has been consulted and Status post EGD/ gastric polyps noted which were biopsied small hiatal hernia No plans for colonoscopy or capsule (3) Insulin dependent type 2 diabetes mellitus: Code(s): E11.9 - Type 2 diabetes mellitus without complications; Z79.4 - terminal clerk (current) use of insulin Status: Acute Assessment and Plan: Hold basal insulin for planned EGD. Initiate sliding scale insulin, Accu-Cheks, and hypoglycemic protocol. hemoglobin A1c on 06/24/2021 at 6. Accu-Cheks at goal (4) Hypertension: Code(s): I10 - Essential (primary) hypertension Status: Acute Assessment and Plan: Blood pressures are stable despite such profound anemia. Her antihypertensives will be reviewed and resumed as appropriate. (5) Chronic respiratory failure with hypoxia: Code(s): J96.11 - Chronic respiratory failure with hypoxia Status: Chronic Assessment and Plan: She is at her baseline oxygen requirement. on 3 L oxygen at home (6) End-stage renal disease on hemodialysis: Code(s): N18.6 - End stage renal disease; Z99.2 - Dependence on renal dialysis Status: Acute Assessment and Plan: Nephrology consulted for dialysis. Additional Plan recent 06/25 admission for pneumonia related to COVID Subjective Date/time seen: 13:40 Interval history: HPI:This is an 86-year-old female with end-stage renal disease on hemodialysis, type 2 diabetes myelitis, chronic respiratory failure on oxygen, chronic obstructive pulmonary disease, and hypertension who presented to the emergency department for further treatment and evaluation after she was told that her hemoglobin was low on labs drawn Sunday afternoon with dialysis. The patient is a fair historian but she is also quite hard of hearing and as such some of the following is supplemented via a review of her electronic medical records. Patient reports having dark stools for quite some time however it looks like she does take iron at home. She does not know how long she has been having dark stools, however, or if they have changed in quantity or quality. She also reports a nondescript, mild aching discomfort in the supraumbilical region though she goes on to say that is not significant and she has not required analgesics for the discomfort. She does have GERD symptoms on occasion though nothing significant or no change in that recently. More recently she has been feeling increasingly short of breath from baseline and she also endorses mild lightheadedness and dizziness. On arrival to the emergency department her vital signs were stable. CBC showed a profound macrocytic anemia with a hemoglobin and hematocrit of 4.8 and 16.3% respectively. A rectal exam done in the emergency department showed a moderate amount of black stool which was Hemoccult positive and she is being admitted in this setting. At the time my evaluation she has no specific complaints. 07/26/2021he underwent EGD today. Feels otherwise okay no shortness of breath or chest pain. Has not had any bowel movement today 07/27/2021 no overnight events. Feels okay denies any chest pain or shortness of breath. Having had any bowel movement. Has not work with p
--- NOTE | 2021-07-29 13:59 | PCPTNOTE ---
Patient refused treatment this session due to feeling too tired from dialysis. Will continue per plan of care.
[2021-07-29 14:19] LABS: Glucose Point of Care 80 mg/dl (65-105)
[2021-07-29 16:25] LABS: Glucose Point of Care 187 mg/dl (65-105)
[2021-07-29] MEDS: cloNIDine HCL 0.1 MG TABLET PO (16:32)
[2021-07-29] MEDS: INSULIN GLARGINE (*BKC) 100 UNITS/ML 15 UNITS SUB-Q (20:24)
[2021-07-29 20:34] LABS: Glucose Point of Care 100 mg/dl (65-105)
[2021-07-29 20:35] LABS: Glucose Point of Care 128 mg/dl (65-105)
[2021-07-30] VITALS (11 sets, daily range): BP systolic 107–154; BP diastolic 32–44; PULSE 67–70; RESP 17–18; TEMP 35.7–36.7; O2SAT 96–100
[2021-07-30] MEDS: LEVOTHYROXINE SODIUM 150 MCG TABLET PO (05:31)
[2021-07-30 07:38] LABS: Glucose Point of Care 80 mg/dl (65-105)
[2021-07-30] MEDS: cloNIDine HCL 0.1 MG TABLET PO ×3 (08:32→16:38)
[2021-07-30] MEDS: ISOSORBIDE MONONITRATE 30 MG TAB.ER.24H PO (08:32)
[2021-07-30] MEDS: ATORVASTATIN 20 MG TABLET PO (08:32)
[2021-07-30] MEDS: FUROSEMIDE 40 MG TABLET PO (08:32)
[2021-07-30] MEDS: PANTOPRAZOLE 40 MG TABLET PO (08:33)
[2021-07-30] MEDS: LATANOPROST 0.005% OP SOLN 2.5 ML BTL 1 DROP EACH EYE (08:33)
[2021-07-30 11:42] LABS: Glucose Point of Care 177 mg/dl (65-105)
--- NOTE | 2021-07-30 12:26 | PM.PNNEP ---
Progress Note: A&P Assessment and Plan (1) End stage renal disease: Code(s): N18.6 - End stage renal disease Status: Chronic Assessment and Plan: HD yesterday to maintain outpatient (//) schedule follow electrolytes, volume status, and clearance (2) Profound anemia: Code(s): D64.9 - Anemia, unspecified Status: Acute Assessment and Plan: presumed GI bleed but no significant findings on EGD Gastroenterology following PRBC transfusion per protocol high dose Epogen with dialysis anemia studies with iron deficiency - dose with IV venofer with HD follow trend of H/H (3) Chronic respiratory failure with hypoxia: Code(s): J96.11 - Chronic respiratory failure with hypoxia Status: Chronic Assessment and Plan: on supplemental oxygen recent worsening SOB could be related to anemia follow respiratory status (4) HTN (hypertension): Code(s): I10 - Essential (primary) hypertension Status: Chronic Assessment and Plan: reasonable control at this time conitnue home BP medications follow trend of hemodynamics (5) Diabetes: Code(s): E11.9 - Type 2 diabetes mellitus without complications Status: Chronic Assessment and Plan: follow accuchecks on Lantus Would not be opposed to discharge from renal perspective if otherwise medically stable and H/H remains stable. Will continue to follow. Subjective Date/time seen: 07/30/21 12:26 Tolerated hemodialysis treatment yesterday without any issues or problems; no other acute complaints voiced at the time of my visit; no issues overnight or earlier this morning. Exam Narrative: General: chronically ill appearing female in NAD Heart: normal S1 and S2; no rub Lungs: decreased at the bases Abdomen: soft, nontender, nondistended, positive bowel sounds Extremities: no cyanosis or clubbing; no edema Skin: warm and dry Objective Data Vital Signs Vital Signs: Vital Signs Temp Pulse Resp BP Pulse Ox 07/30/21 08:50 96 07/30/21 08:35 99 07/30/21 08:04 148/44 H 07/30/21 03:30 35.7 C L 70 17 154/40 H 100 07/29/21 20:14 75 113/37 L 95 07/29/21 20:00 36.0 C L 80 18 152/40 H 99 07/29/21 19:51 36.0 C L 80 18 152/40 H 99 07/29/21 16:33 138/50 L Intake/Output Intake/Output: Intake & Output 07/27/21 07/28/21 07/29/21 07/30/21 23:59 23:59 23:59 23:59 Intake Total 1280 1710 880 980 Output Total 2000 150 3300 Balance -720 1560 -2420 980 Meds/Results Medications: Active Medications Generic Name Dose Route Start Last Admin Trade Name Freq PRN Reason Stop Dose Admin Atorvastatin Calcium 20 mg 07/26/21 09:00 07/30/21 08:32 Atorvastatin 20 Mg Tablet PO 20 mg DAILY LAUREN Administration Clonidine HCl 0.1 mg 07/26/21 09:00 07/30/21 12:33 Clonidine Hcl 0.1 Mg Tablet PO 0.1 mg TID LAUREN Administration Ergocalciferol 50,000 unit 08/01/21 09:00 Ergocalciferol 50,000 Unit Capsule PO WEEKLY LAUREN Furosemide 40 mg 07/26/21 09:00 07/30/21 08:32 Furosemide 40 Mg Tablet PO 40 mg DAILY LAUREN Administration Albumin Human 50 mls @ 999 mls/hr 07/26/21 05:14 Albutein IVPB 08/25/21 05:13 Q10M PRN HYPOTENSION Insulin Glargine 15 units 07/26/21 21:00 07/29/21 20:24 Insulin Glargine (*Bkc) 100 Units/Ml SUB-Q 08/25/21 20:59 15 units HS LAUREN Administration Isosorbide Mononitrate 30 mg 07/26/21 09:00 07/30/21 08:32 Isosorbide Mononitrate 30 Mg Tab.Er.24h PO 30 mg DAILY LAUREN Administration Latanoprost 1 drop 07/26/21 09:00 07/30/21 08:33 Latanoprost 0.005% Op Soln 2.5 Ml Btl EACH EYE 1 drop DAILY LAUREN Administration Levothyroxine Sodium 150 mcg 07/26/21 06:30 07/30/21 05:31 Levothyroxine Sodium 150 Mcg Tablet PO 150 mcg DAILY@0630 LAUREN Administration Pantoprazole Sodium 40 mg 07/26/21 09:00 07/30/21 08:33 Pantoprazole 40 Mg Tablet PO
--- NOTE | 2021-07-30 13:45 | PM.IMPN ---
Progress Note: A&P Assessment and Plan (1) Profound anemia: Code(s): D64.9 - Anemia, unspecified Status: Acute Assessment and Plan: Secondary to GI bleeding in addition to chronic anemia. She will be transfused to a stable hemoglobin. Status post packed red blood cell transfusion H&H 7.2 on 07/26/2021 after transfusion Baseline hemoglobin 12.4 on 06/28/2021 No evidence of coagulopathy INR 1.1 PTT normal platelet count normal H&H dropped to 6.8 again transfused 1 unit of PRBC 07/28/2021 H&H appropriately increased 7.8 will monitor that again Recheck H&H and monitor if stable plan to discharg (2) GI bleed: Code(s): K92.2 - Gastrointestinal hemorrhage, unspecified Status: Acute Assessment and Plan: Dr. Dominguez has been consulted and Status post EGD gastric polyps noted which were biopsied small hiatal hernia No plans for colonoscopy or capsule (3) Insulin dependent type 2 diabetes mellitus: Code(s): E11.9 - Type 2 diabetes mellitus without complications; Z79.4 - intermission coordinator (current) use of insulin Status: Acute Assessment and Plan: Hold basal insulin for planned EGD. Initiate sliding scale insulin, Accu-Cheks, and hypoglycemic protocol. hemoglobin A1c on 06/24/2021 at 6. Accu-Cheks at goal (4) Hypertension: Code(s): I10 - Essential (primary) hypertension Status: Acute Assessment and Plan: Blood pressures are stable despite such profound anemia. Her antihypertensives will be reviewed and resumed as appropriate. (5) Chronic respiratory failure with hypoxia: Code(s): J96.11 - Chronic respiratory failure with hypoxia Status: Chronic Assessment and Plan: She is at her baseline oxygen requirement. on 3 L oxygen at home (6) End-stage renal disease on hemodialysis: Code(s): N18.6 - End stage renal disease; Z99.2 - Dependence on renal dialysis Status: Acute Assessment and Plan: Nephrology consulted for dialysis. Additional Plan recent 06/25 admission for pneumonia related to COVID Subjective Date/time seen: 07/30/21 13:45 Interval history: HPI:This is an 86-year-old female with end-stage renal disease on hemodialysis, type 2 diabetes myelitis, chronic respiratory failure on oxygen, chronic obstructive pulmonary disease, and hypertension who presented to the emergency department for further treatment and evaluation after she was told that her hemoglobin was low on labs drawn Sunday afternoon with dialysis. The patient is a fair historian but she is also quite hard of hearing and as such some of the following is supplemented via a review of her electronic medical records. Patient reports having dark stools for quite some time however it looks like she does take iron at home. She does not know how long she has been having dark stools, however, or if they have changed in quantity or quality. She also reports a nondescript, mild aching discomfort in the supraumbilical region though she goes on to say that is not significant and she has not required analgesics for the discomfort. She does have GERD symptoms on occasion though nothing significant or no change in that recently. More recently she has been feeling increasingly short of breath from baseline and she also endorses mild lightheadedness and dizziness. On arrival to the emergency department her vital signs were stable. CBC showed a profound macrocytic anemia with a hemoglobin and hematocrit of 4.8 and 16.3% respectively. A rectal exam done in the emergency department showed a moderate amount of black stool which was Hemoccult positive and she is being admitted in this setting. At the time my evaluation she has no specific complaints. 07/26/2021he underwent EGD today. Feels otherwise okay no shortness of breath or chest pain. Has not had any bowel movement today 07/27/2021 no overnight events. Feels okay denies any chest pain or shortness of breath.
[2021-07-30 14:32] LABS: Basophils Absolute Auto 0.1 K/mm3 (0.0-0.1); Basophils Percent Auto 0.9 % (0.2-1.2); Eosinophils Absolute Auto 0.3 K/mm3 (0-0.3); Eosinophils Percent Auto 4.7 % (0-4.4); Hematocrit 25.3 % (37.0-47.0); Hemoglobin 7.9 g/dL (12.0-15.0); Immature Granulocyte Absolute 0.03 K/mm3 (0.00-0.031); Immature Granulocyte Percent A 0.5 % (0-0.5); Lymphocytes Absolute Auto 0.85 K/mm3 (0.9-3.2); Lymphocytes Percent Auto 13.2 % (18.3-44.2); Mean Corpuscular HGB Conc 31.2 g/dl (32-36); Mean Corpuscular Volume 99.2 fl (80-100); Mean Platelet Volume 10.8 fl (7.4-10.4); Monocytes Absolute Auto 0.8 K/mm3 (0.1-0.6); Monocytes Percent Auto 11.8 % (2.6-8.5); Neutrophils Absolute Auto 4.4 K/mm3 (1.3-6.7); Neutrophils Percent Auto 68.9 % (45.5-73.1); Platelet Count Result 246 k/mm3 (150-375); Red Blood Count 2.55 M/mm3 (4.2-5.4); Red Cell Distribution Width 15.1 % (11.5-14.5); White Blood Count 6.4 K/mm3 (4.5-10.0)
--- NOTE | 2021-07-30 14:39 | PCPTNOTE ---
Attempted to see patient for Physical Therapy session at 1335 and again at 1430. Patient refused both attempts.
[2021-07-30 14:45] LABS: Anion Gap 5 mmol/L (8-16); Blood Urea Nitrogen 32 mg/dL (7-17); Calcium 8.4 mg/dL (8.4-10.2); Carbon Dioxide 37 mmol/L (22-30); Chloride 94 mmol/L (98-107); Estimated CRCL calculation 13 ml/min; Estimated Glomerular Filt Rate 17; Glucose 173 mg/dL (65-110); Potassium 3.7 mmol/L (3.4-5.0); Sodium 136 mmol/L (137-145)
[2021-07-30 16:33] LABS: Glucose Point of Care 98 mg/dl (65-105)
[2021-07-30] MEDS: INSULIN GLARGINE (*BKC) 100 UNITS/ML 15 UNITS SUB-Q (20:17)
[2021-07-30 20:25] LABS: Glucose Point of Care 186 mg/dl (65-105)
[2021-07-31] VITALS (11 sets, daily range): BP systolic 120–168; BP diastolic 36–41; PULSE 60–78; RESP 16–17; TEMP 36.3–36.8; O2SAT 94–100
[2021-07-31 04:55] LABS: Basophils Absolute Auto 0.1 K/mm3 (0.0-0.1); Basophils Percent Auto 1.4 % (0.2-1.2); Eosinophils Absolute Auto 0.3 K/mm3 (0-0.3); Eosinophils Percent Auto 6.1 % (0-4.4); Hematocrit 24.7 % (37.0-47.0); Hemoglobin 7.5 g/dL (12.0-15.0); Immature Granulocyte Absolute 0.04 K/mm3 (0.00-0.031); Immature Granulocyte Percent A 0.7 % (0-0.5); Lymphocytes Absolute Auto 0.72 K/mm3 (0.9-3.2); Lymphocytes Percent Auto 12.9 % (18.3-44.2); Mean Corpuscular HGB Conc 30.4 g/dl (32-36); Mean Corpuscular Volume 98.8 fl (80-100); Mean Platelet Volume 10.7 fl (7.4-10.4); Monocytes Absolute Auto 0.7 K/mm3 (0.1-0.6); Monocytes Percent Auto 11.6 % (2.6-8.5); Neutrophils Absolute Auto 3.8 K/mm3 (1.3-6.7); Neutrophils Percent Auto 67.3 % (45.5-73.1); Platelet Count Result 251 k/mm3 (150-375); White Blood Count 5.6 K/mm3 (4.5-10.0)
[2021-07-31 05:09] LABS: Anion Gap 5 mmol/L (8-16); Blood Urea Nitrogen 47 mg/dL (7-17); Calcium 8.5 mg/dL (8.4-10.2); Carbon Dioxide 36 mmol/L (22-30); Chloride 93 mmol/L (98-107); Estimated CRCL calculation 12 ml/min; Estimated Glomerular Filt Rate 15; Glucose 105 mg/dL (65-110); Sodium 134 mmol/L (137-145)
[2021-07-31] MEDS: LEVOTHYROXINE SODIUM 150 MCG TABLET PO (05:56)
[2021-07-31 07:48] LABS: Glucose Point of Care 92 mg/dl (65-105)
[2021-07-31] MEDS: FUROSEMIDE 40 MG TABLET PO (08:41)
[2021-07-31] MEDS: PANTOPRAZOLE 40 MG TABLET PO (08:41)
[2021-07-31] MEDS: cloNIDine HCL 0.1 MG TABLET PO ×3 (08:41→16:48)
[2021-07-31] MEDS: ATORVASTATIN 20 MG TABLET PO (08:41)
[2021-07-31] MEDS: LATANOPROST 0.005% OP SOLN 2.5 ML BTL 1 DROP EACH EYE (08:41)
[2021-07-31] MEDS: ISOSORBIDE MONONITRATE 30 MG TAB.ER.24H PO (08:41)
--- NOTE | 2021-07-31 12:57 | PM.PNNEP ---
Progress Note: A&P Assessment and Plan (1) End stage renal disease: Code(s): N18.6 - End stage renal disease Status: Chronic Assessment and Plan: HD tomorrow to maintain outpatient (//) schedule follow electrolytes, volume status, and clearance (2) Profound anemia: Code(s): D64.9 - Anemia, unspecified Status: Acute Assessment and Plan: presumed GI bleed but no significant findings on EGD Gastroenterology following PRBC transfusion per protocol high dose Epogen with dialysis anemia studies with iron deficiency - dose with IV venofer with HD follow trend of H/H (3) Chronic respiratory failure with hypoxia: Code(s): J96.11 - Chronic respiratory failure with hypoxia Status: Chronic Assessment and Plan: on supplemental oxygen recent worsening SOB could be related to anemia follow respiratory status (4) HTN (hypertension): Code(s): I10 - Essential (primary) hypertension Status: Chronic Assessment and Plan: reasonable control at this time continue home BP medications follow trend of hemodynamics (5) Diabetes: Code(s): E11.9 - Type 2 diabetes mellitus without complications Status: Chronic Assessment and Plan: follow accuchecks on Lantus Would not be opposed to discharge from renal perspective if otherwise medically stable and H/H remains stable. Will continue to follow. Subjective Date/time seen: 07/31/21 12:57 No new issues or problems voiced at the time of my visit; breathing/respiratory status stable on chronic supplemental oxygen; H/H has been relatively stable as well since last PRBC transfusion; no other issues/events to report overnight or earlier this morning. Exam Narrative: General: chronically ill appearing female in NAD Heart: normal S1 and S2; no rub Lungs: decreased at the bases Abdomen: soft, nontender, nondistended, positive bowel sounds Extremities: no cyanosis or clubbing; no edema Skin: warm and intact Objective Data Vital Signs Vital Signs: Vital Signs Temp Pulse Resp BP Pulse Ox 07/31/21 08:53 94 07/31/21 08:00 99 07/31/21 07:50 168/40 H 07/31/21 05:31 36.3 C L 60 16 149/37 H 100 07/30/21 20:32 107/32 L 07/30/21 20:31 115/32 L 07/30/21 20:17 36.3 C L 67 17 124/41 L 98 07/30/21 20:00 135/33 L 07/30/21 14:06 133/40 L 07/30/21 14:03 123/41 L 07/30/21 14:00 36.7 C 69 18 119/34 L 99 Intake/Output Intake/Output: Intake & Output 07/28/21 07/29/21 07/30/21 07/31/21 23:59 23:59 23:59 23:59 Intake Total 0514 884 5579 1350 Output Total 150 3300 200 200 Balance 1560 -2420 1220 1150 Meds/Results Medications: Active Medications Generic Name Dose Route Start Last Admin Trade Name Freq PRN Reason Stop Dose Admin Atorvastatin Calcium 20 mg 07/26/21 09:00 07/31/21 08:41 Atorvastatin 20 Mg Tablet PO 20 mg DAILY LAUREN Administration Clonidine HCl 0.1 mg 07/26/21 09:00 07/31/21 13:12 Clonidine Hcl 0.1 Mg Tablet PO 0.1 mg TID LAUREN Administration Ergocalciferol 50,000 unit 08/01/21 09:00 Ergocalciferol 50,000 Unit Capsule PO WEEKLY LAUREN Furosemide 40 mg 07/26/21 09:00 07/31/21 08:41 Furosemide 40 Mg Tablet PO 40 mg DAILY LAUREN Administration Albumin Human 50 mls @ 999 mls/hr 07/26/21 05:14 Albutein IVPB 08/25/21 05:13 Q10M PRN HYPOTENSION Insulin Glargine 15 units 07/26/21 21:00 07/30/21 20:17 Insulin Glargine (*Bkc) 100 Units/Ml SUB-Q 08/25/21 20:59 15 units HS LAUREN Administration Isosorbide Mononitrate 30 mg 07/26/21 09:00 07/31/21 08:41 Isosorbide Mononitrate 30 Mg Tab.Er.24h PO 30 mg DAILY LAUREN Administration Latanoprost 1 drop 07/26/21 09:00 07/31/21 08:41 Latanoprost 0.005% Op Soln 2.5 Ml Btl EACH EYE 1 drop DAILY LAUREN Administration Levothyroxine Sodium 150 mcg 07/26/21 06:30 07/31/21 05:56
[2021-07-31 13:08] LABS: Glucose Point of Care 196 mg/dl (65-105)
--- NOTE | 2021-07-31 14:29 | PM.IMPN ---
Progress Note: A&P Assessment and Plan (1) Profound anemia: Code(s): D64.9 - Anemia, unspecified Status: Acute Assessment and Plan: Secondary to GI bleeding in addition to chronic anemia. She will be transfused to a stable hemoglobin. Status post packed red blood cell transfusion H&H 7.2 on 07/26/2021 after transfusion Baseline hemoglobin 12.4 on 06/28/2021 No evidence of coagulopathy INR 1.1 PTT normal platelet count normal H&H dropped to 6.8 again transfused 1 unit of PRBC 07/28/2021 H&H appropriately increased 7.8 will monitor that again Recheck H&H and monitor if stable plan to discharge (2) GI bleed: Code(s): K92.2 - Gastrointestinal hemorrhage, unspecified Status: Acute Assessment and Plan: Dr. Dominguez has been consulted and Status post EGD/ gastric polyps noted which were biopsied small hiatal hernia No plans for colonoscopy or capsule (3) Insulin dependent type 2 diabetes mellitus: Code(s): E11.9 - Type 2 diabetes mellitus without complications; Z79.4 - MCFP (current) use of insulin Status: Acute Assessment and Plan: Hold basal insulin for planned EGD. Initiate sliding scale insulin, Accu-Cheks, and hypoglycemic protocol. hemoglobin A1c on 06/24/2021 at 6. Accu-Cheks at goal (4) Hypertension: Code(s): I10 - Essential (primary) hypertension Status: Acute Assessment and Plan: Blood pressures are stable despite such profound anemia. Her antihypertensives will be reviewed and resumed as appropriate. (5) Chronic respiratory failure with hypoxia: Code(s): J96.11 - Chronic respiratory failure with hypoxia Status: Chronic Assessment and Plan: She is at her baseline oxygen requirement. on 3 L oxygen at home (6) End-stage renal disease on hemodialysis: Code(s): N18.6 - End stage renal disease; Z99.2 - Dependence on renal dialysis Status: Acute Assessment and Plan: Nephrology consulted for dialysis. Additional Plan recent 06/25 admission for pneumonia related to COVID Discussed with son 07/31/2021 Subjective Date/time seen: 07/31/21 14:29 Interval history: HPI:This is an 86-year-old female with end-stage renal disease on hemodialysis, type 2 diabetes myelitis, chronic respiratory failure on oxygen, chronic obstructive pulmonary disease, and hypertension who presented to the emergency department for further treatment and evaluation after she was told that her hemoglobin was low on labs drawn Sunday afternoon with dialysis. The patient is a fair historian but she is also quite hard of hearing and as such some of the following is supplemented via a review of her electronic medical records. Patient reports having dark stools for quite some time however it looks like she does take iron at home. She does not know how long she has been having dark stools, however, or if they have changed in quantity or quality. She also reports a nondescript, mild aching discomfort in the supraumbilical region though she goes on to say that is not significant and she has not required analgesics for the discomfort. She does have GERD symptoms on occasion though nothing significant or no change in that recently. More recently she has been feeling increasingly short of breath from baseline and she also endorses mild lightheadedness and dizziness. On arrival to the emergency department her vital signs were stable. CBC showed a profound macrocytic anemia with a hemoglobin and hematocrit of 4.8 and 16.3% respectively. A rectal exam done in the emergency department showed a moderate amount of black stool which was Hemoccult positive and she is being admitted in this setting. At the time my evaluation she has no specific complaints. 07/26/2021he underwent EGD today. Feels otherwise okay no shortness of breath or chest pain. Has not had any bowel movement today 07/27/2021 no overnight events. Feels okay denies any ch
[2021-07-31 16:18] LABS: Glucose Point of Care 143 mg/dl (65-105)
[2021-07-31 20:12] LABS: Glucose Point of Care 163 mg/dl (65-105)
[2021-07-31] MEDS: INSULIN GLARGINE (*BKC) 100 UNITS/ML 15 UNITS SUB-Q (20:41)
[2021-08-01] VITALS (23 sets, daily range): BP systolic 116–165; BP diastolic 35–58; PULSE 63–108; RESP 16–18; TEMP 35.5–36.8; O2SAT 94–100
[2021-08-01 05:28] LABS: Basophils Absolute Auto 0.1 K/mm3 (0.0-0.1); Eosinophils Absolute Auto 0.3 K/mm3 (0-0.3); Eosinophils Percent Auto 5.4 % (0-4.4); Hematocrit 25.4 % (37.0-47.0); Hemoglobin 7.8 g/dL (12.0-15.0); Immature Granulocyte Absolute 0.06 K/mm3 (0.00-0.031); Lymphocytes Absolute Auto 0.84 K/mm3 (0.9-3.2); Lymphocytes Percent Auto 13.7 % (18.3-44.2); Mean Corpuscular HGB Conc 30.7 g/dl (32-36); Mean Corpuscular Hemoglobin 30.7 pg (26-34); Mean Platelet Volume 10.4 fl (7.4-10.4); Monocytes Absolute Auto 0.6 K/mm3 (0.1-0.6); Monocytes Percent Auto 10.5 % (2.6-8.5); Neutrophils Absolute Auto 4.2 K/mm3 (1.3-6.7); Neutrophils Percent Auto 68.4 % (45.5-73.1); Platelet Count Result 276 k/mm3 (150-375); Red Blood Count 2.54 M/mm3 (4.2-5.4); Red Cell Distribution Width 15.3 % (11.5-14.5); White Blood Count 6.1 K/mm3 (4.5-10.0)
[2021-08-01 05:49] LABS: Alanine Aminotransferase 13 U/L (4-35); Albumin Level 3.3 g/dL (3.5-5.1); Alkaline Phosphatase 66 U/L (38-126); Anion Gap 7 mmol/L (8-16); Aspartate Amino Transferase 17 U/L (14-36); Bilirubin,Total 0.2 mg/dL (0.2-1.3); Blood Urea Nitrogen 58 mg/dL (7-17); Calcium 8.9 mg/dL (8.4-10.2); Carbon Dioxide 33 mmol/L (22-30); Chloride 93 mmol/L (98-107); Estimated CRCL calculation 11 ml/min; Estimated Glomerular Filt Rate 14; Glucose 84 mg/dL (65-110); Potassium 3.9 mmol/L (3.4-5.0); Sodium 133 mmol/L (137-145)
[2021-08-01] MEDS: LEVOTHYROXINE SODIUM 150 MCG TABLET PO (06:11)
[2021-08-01] MEDS: SODIUM CHLORIDE 0.9% IV 1,000 ML 100 ML IV CONT (07:20)
[2021-08-01 07:36] LABS: Glucose Point of Care 85 mg/dl (65-105)
--- NOTE | 2021-08-01 07:52 | PCOTNOTE ---
Attempted to see patient, patient eating breakfast. Patient to go for dialysis later. Will attempt to see prior to dialysis for OT.
--- NOTE | 2021-08-01 08:01 | PM.PNNEP ---
Progress Note: A&P Assessment and Plan (1) End stage renal disease: Code(s): N18.6 - End stage renal disease Status: Chronic Assessment and Plan: HD planned for today. Should start in a few minutes. Volume status looks okay. Potassium is fine. Okay for discharge from the kidney standpoint (2) Profound anemia: Code(s): D64.9 - Anemia, unspecified Status: Acute Assessment and Plan: presumed GI bleed but no significant findings on EGD Gastroenterology following She received packed cells on the and . high dose Epogen with dialysis anemia studies with iron deficiency - dosing with IV venofer with HD Hemoglobin stable since then. It is in the high sevens. (3) Chronic respiratory failure with hypoxia: Code(s): J96.11 - Chronic respiratory failure with hypoxia Status: Chronic Assessment and Plan: on supplemental oxygen recent worsening SOB could be related to anemia Breathing comfortably today. (4) HTN (hypertension): Code(s): I10 - Essential (primary) hypertension Status: Chronic Assessment and Plan: Blood pressure is a little high today. Will remove some fluid. (5) Diabetes: Code(s): E11.9 - Type 2 diabetes mellitus without complications Status: Chronic Assessment and Plan: On Accu-Cheks and sliding-scale insulin per hospitalist Subjective Date/time seen: 08/01/21 08:01 Interval history: Patient is sitting at the side of the bed eating her breakfast. No chest pain or shortness of breath Review of Systems Cardiovascular: Cardiovascular: Reports no additional cardiovascular complaints Respiratory: Respiratory: Reports no additional respiratory complaints Gastrointestinal: Gastrointestinal: Reports no additional gastrointestinal complaints Genitourinary: Genitourinary: Reports no additional female genitourinary complaints Exam Narrative: General: chronically ill appearing female in NAD Heart: normal S1 and S2; no rub Lungs: decreased at the bases Abdomen: soft, nontender, nondistended, positive bowel sounds Extremities: no cyanosis or clubbing; no edema Skin: No rash or subQ nodules Objective Data Vital Signs Vital Signs: Vital Signs - 24 hr 07/31/21 08:53 07/31/21 14:00 07/31/21 14:35 Temperature 36.8 C Pulse Rate 68 68 Respiratory Rate 16 Blood Pressure 144/40 H 144/40 H Pulse Oximetry 94 98 07/31/21 14:37 07/31/21 14:39 07/31/21 20:00 Temperature Pulse Rate 70 78 Respiratory Rate Blood Pressure 142/41 H 120/36 L 168/41 H Pulse Oximetry 96 07/31/21 20:20 07/31/21 20:27 08/01/21 02:22 Temperature 36.4 C L Pulse Rate 72 Respiratory Rate 17 Blood Pressure 132/39 L 168/41 H Pulse Oximetry 98 94 08/01/21 05:24 Temperature 36.4 C Pulse Rate 69 Respiratory Rate 16 Blood Pressure 158/41 H Pulse Oximetry 100 Intake/Output Intake/Output: Intake & Output 07/29/21 07/30/21 07/31/21 08/01/21 23:59 23:59 23:59 23:59 Intake Total 880 1420 1590 150 Output Total 3300 200 400 300 Balance -2420 1220 1190 -150 Meds/Results Medications: Active Medications Generic Name Dose Route Start Last Admin Trade Name Freq PRN Reason Stop Dose Admin Atorvastatin Calcium 20 mg 07/26/21 09:00 07/31/21 08:41 Atorvastatin 20 Mg Tablet PO 20 mg DAILY LAUREN Administration Clonidine HCl 0.1 mg 07/26/21 09:00 07/31/21 16:48 Clonidine Hcl 0.1 Mg Tablet PO 0.1 mg TID LAUREN Administration Dextrose 12.5 gm 07/31/21 14:44 Dextrose 50% 25 Gm/50 Ml Syringe IV PUSH PRN PRN Hypoglycemia Protocol Epoetin Samuel-epbx 10,000 units 08/01/21 19:13 Epoetin Samuel-Epbx 10,000 Units/Ml Vial IV PUSH 08/01/21 19:14 ONCE ONE Ergocalciferol 50,000 unit 08/01/21 09:00 Ergocalciferol 50,000 Unit Capsule PO WEEKLY LAUREN Furosemide 40 mg 07/26/21 09:00 07/31/21 08:41 Furosemide 40 Mg Tablet PO
--- NOTE | 2021-08-01 08:46 | PCOTNOTE ---
Patient unavailable for OT, in dialysis. Will try again later.
[2021-08-01] MEDS: EPOETIN ALFA-EPBX 10,000 UNITS/ML VIAL 10000 UNITS IV PUSH (09:16)
[2021-08-01] MEDS: IRON SUCROSE COMPLEX 200 MG in SODIUM CHLORIDE 0.9% IV 50 ML 120 MG IVPB (09:16)
--- NOTE | 2021-08-01 11:07 | PM.DS ---
DS: Admitting Diagnosis Discharge Date 08/01/2021 Admitting Diagnosis Anemia DS: Discharge Diagnosis Discharge Diagnosis (1) Profound anemia: Code(s): D64.9 - Anemia, unspecified Status: Acute Assessment and Plan: Secondary to GI bleeding in addition to chronic anemia. Status post packed red blood cell transfusion H&H 7.2 on 07/26/2021 after transfusion Baseline hemoglobin 12.4 on 06/28/2021 but does have history of recurrent anemia in the past some of them related to GI bleed. Has had extensive GI workup in the past as well No evidence of coagulopathy INR 1.1 PTT normal platelet count normal this admission H&H fluctuated needing another 1 unit of PRBC transfusion on 07/28/2021 Post transfusion she was monitor for few days and her hemoglobin remained stable. She will continue to follow-up as an outpatient basis for recurrence of anemia She she will also follow up with GI as an outpatient basis She also benefit from Hematology to see as an outpatient basis this was discussed with the patient's son over the phone (2) GI bleed: Code(s): K92.2 - Gastrointestinal hemorrhage, unspecified Status: Acute Assessment and Plan: Dr. Dominguez has been consulted and Status post EGD gastric polyps noted which were biopsied small hiatal hernia. No plans for colonoscopy or capsule. No further bloody or dark stool during the hospital stay (3) Insulin dependent type 2 diabetes mellitus: Code(s): E11.9 - Type 2 diabetes mellitus without complications; Z79.4 - nursing home (current) use of insulin Status: Acute Assessment and Plan: Initiated sliding scale insulin, Accu-Cheks, and hypoglycemic protocol. hemoglobin A1c on 06/24/2021 at 6. Accu-Cheks at goal Follow-up with PCP recommendation with regard to insulin regimen for her type 2 diabetes mellitus (4) Hypertension: Code(s): I10 - Essential (primary) hypertension Status: Acute Assessment and Plan: Blood pressures are stable despite such profound anemia. Her antihypertensives will be reviewed and resumed as appropriate. (5) Chronic respiratory failure with hypoxia: Code(s): J96.11 - Chronic respiratory failure with hypoxia Status: Chronic Assessment and Plan: She is at her baseline oxygen requirement. on 3 L oxygen at home (6) End-stage renal disease on hemodialysis: Code(s): N18.6 - End stage renal disease; Z99.2 - Dependence on renal dialysis Status: Acute Assessment and Plan: Nephrology consulted for dialysis. She had inpatient dialysis during the hospital stay DS: Summary Hospital Course Hospital Course: See above Status at Discharge Overall status at discharge: patient is progressing back to baseline Time Spent with Patient Time attestation: Total time spent providing and/or coordinating discharge services: 45 minutes Exam Narrative: General: Chronically ill-appearing elderly female nearly supine in bed. HEENT: PERRL, EOMI. Sclerae anicteric. Oral mucosa moist. Multiple missing teeth. Neck: Supple. No significant JVD. Respiratory: Respirations are nonlabored. She has faint crackles at the bases. Nasal cannula in place. Cardiovascular: Regular rate and rhythm with S1-S2. Loud systolic murmur over the precordium Gastrointestinal: Abdomen is soft and nondistended with positive bowel sounds. Skin: Warm and dry. No rash or lesions on limited exam. Extremities: No cyanosis, clubbing, or edema. Radial and pedal pulses intact. Neurological: Alert. She is very hard of hearing. Cranial nerves 2-12 are grossly intact. Speech is clear. No facial asymmetry. No gross focal deficits to casual conversation. Psychiatric: Cooperative. Appropriate mood and affect. DS: Data Data Completed and Pending Completed studies during hospitalization: Pending at discharge 07/26/21 12:44 Surgical [PTH] Routine Labs on day of discharge: Labs from
--- NOTE | 2021-08-01 11:52 | PCCCNOTE ---
On 08/01/21, the student, [Elina Sanchez ], provided care and [facility] on this [facility]. I have reviewed the student's documentation and agree with the findings.
[2021-08-01] MEDS: ATORVASTATIN 20 MG TABLET PO (12:09)
[2021-08-01] MEDS: ERGOCALCIFEROL 50,000 UNIT CAPSULE 50000 UNITS PO (12:10)
[2021-08-01] MEDS: cloNIDine HCL 0.1 MG TABLET PO (12:10)
[2021-08-01] MEDS: ISOSORBIDE MONONITRATE 30 MG TAB.ER.24H PO (12:10)
[2021-08-01] MEDS: PANTOPRAZOLE 40 MG TABLET PO (12:10)
[2021-08-01] MEDS: LATANOPROST 0.005% OP SOLN 2.5 ML BTL 1 DROP EACH EYE (12:10)
[2021-08-01] MEDS: FUROSEMIDE 40 MG TABLET PO (12:10)
[2021-08-01 12:12] LABS: Glucose Point of Care 129 mg/dl (65-105)
--- NOTE | 2021-08-01 14:19 | PCOTNOTE ---
Attempted to see patient this PM, patient resting in bed comfortably and to d/c home later. Patient declined OT assist with ADLs or mobility, or UB exercises prior to d/c.
== END 2021-08-01 16:04 | disposition home health service (06) | DRG 377 ==
LOC: ANHED 10:49 → ANH2MED 11:46
PROVIDERS: Internal Medicine Gastroenterology; Internal Medicine Nephrology; Physician Assistant; Admitting Provider Internal Medicine; Emergency Provider Emergency Medicine; PCP Internal Medicine; Visit Provider Internal Medicine
PROC: 0DJ08ZZ Inspection of Upper Intestinal Tract, Via Natural or Artificial Opening Endoscopic (ICD-10-PCS; CPT 43235; principal; 2021-07-26 12:00)
DX: K92.1 Melena (principal); N18.6 End stage renal disease; J96.11 Chronic respiratory failure with hypoxia; I12.0 Hypertensive chronic kidney disease with stage 5 chronic kidney disease or end stage renal disease; D63.1 Anemia in chronic kidney disease; K31.7 Polyp of stomach and duodenum; K22.70 Barrett's esophagus without dysplasia; K21.9 Gastro-esophageal reflux disease without esophagitis; K22.2 Esophageal obstruction; K44.9 Diaphragmatic hernia without obstruction or gangrene; E11.22 Type 2 diabetes mellitus with diabetic chronic kidney disease; E78.5 Hyperlipidemia, unspecified; E55.9 Vitamin D deficiency, unspecified; H91.90 Unspecified hearing loss, unspecified ear; H40.9 Unspecified glaucoma; J44.9 Chronic obstructive pulmonary disease, unspecified; M19.90 Unspecified osteoarthritis, unspecified site; N25.0 Renal osteodystrophy; R41.82 Altered mental status, unspecified; Z99.81 Dependence on supplemental oxygen; Z99.2 Dependence on renal dialysis; Z79.4 Long term (current) use of insulin; Z86.16 Personal history of COVID-19; Z87.891 Personal history of nicotine dependence
CPT/HCPCS: 36415; 36430; 71045; 80048; 80053; 82607; 82728; 82746; 82948; 83540; 83550; 83735; 84100; 85014; 85018; 85025; 85610; 85730; 86706; 86850; 86900; 86901; 86920; 87081; 87340; 88305; 93005; 97110; 97161; 97165; 97530; 99285; A9270; G0257; J1756; J1815; J2704; J7030; J7040; J7050; P9016; Q5105

== ENCOUNTER 2021-08-08 21:03 | Observation (INO) | payer MEDICARE, SELFPAY ==
[2021-08-08 21:20] VITALS: BP 180/60; PULSE 89; RESP 22; TEMP 36.4; O2SAT 97
--- NOTE | 2021-08-08 21:26 | PC.NURSE ---
shunt left upper arm normal bruie limb alert applied
[2021-08-08 21:48] LABS: Basophils Percent Auto 0.5 % (0.2-1.2); Eosinophils Absolute Auto 0.2 K/mm3 (0-0.3); Eosinophils Percent Auto 2.6 % (0-4.4); Immature Granulocyte Percent A 1.2 % (0-0.5); Lymphocytes Absolute Auto 1.06 K/mm3 (0.9-3.2); Lymphocytes Percent Auto 13.2 % (18.3-44.2); Mean Corpuscular HGB Conc 29.2 g/dl (32-36); Mean Corpuscular Hemoglobin 30.9 pg (26-34); Mean Corpuscular Volume 105.8 fl (80-100); Mean Platelet Volume 11.2 fl (7.4-10.4); Monocytes Absolute Auto 0.6 K/mm3 (0.1-0.6); Monocytes Percent Auto 7.4 % (2.6-8.5); Neutrophils Percent Auto 75.1 % (45.5-73.1); Platelet Count Result 308 k/mm3 (150-375); Red Blood Count 1.91 M/mm3 (4.2-5.4); Red Cell Distribution Width 16.3 % (11.5-14.5)
[2021-08-08 21:56] LABS: Hematocrit 20.2 % (37.0-47.0); Hemoglobin 5.9 g/dL (12.0-15.0)
[2021-08-08 21:57] LABS: Hypochromasia 1+ (NORMAL); Ovalocytes 1+ (NORMAL); Platelet Estimate Adequate (Adequate)
[2021-08-08 21:58] LABS: Alanine Aminotransferase 9 U/L (4-35); Albumin Level 3.6 g/dL (3.5-5.1); Alkaline Phosphatase 73 U/L (38-126); Anion Gap 4 mmol/L (8-16); Aspartate Amino Transferase 20 U/L (14-36); Bilirubin,Total < 0.1 mg/dL (0.2-1.3); Blood Urea Nitrogen 45 mg/dL (7-17); Calcium 8.5 mg/dL (8.4-10.2); Carbon Dioxide 36 mmol/L (22-30); Chloride 99 mmol/L (98-107); Estimated CRCL calculation 23 ml/min; Estimated Glomerular Filt Rate 29; Glucose 137 mg/dL (65-110); Partial Thromboplastin Time 27.5 SECONDS (22.3-36.8); Potassium 4.7 mmol/L (3.4-5.0); Sodium 139 mmol/L (137-145)
[2021-08-08 22:04] LABS: Prothrombin Time 13.2 Seconds (11.1-14.7)
--- NOTE | 2021-08-08 22:11 | ED.RECABL ---
HPI - Recheck/Abnormal Lab/Rx General Chief Complaint: Recheck/Abnormal Lab/Rx Stated Complaint: LOW HGB 5.1 LABS TODAY Time Seen by Provider: 08/08/21 21:56 Source: patient and EMS Limitations: dementia History of Present Illness HPI narrative: Patient is an 86-year-old female sent here from [facility] by her PCP due to hemoglobin of 5.1. Patient states that she has been feeling weak for the past few days. Patient denies any black or bloody stools. Patient has a history of anemia secondary to GI bleed and was recently admitted 2 weeks ago for the same complaints. Patient was seen by Dr. Chelsi Marrero, aoc director combat operations officer, and has had extensive work-up including a recent EGD which showed gastric polyps. Patient is a poor historian. Related Data Home Medications Medication Instructions Recorded Confirmed Levemir FlexTouch U-100 Insuln 15 unit SUBCUT HS 06/22/21 07/25/21 atorvastatin 20 mg PO DAILY 06/22/21 07/25/21 clonidine HCl 0.1 mg PO TID 06/22/21 07/25/21 ergocalciferol (vitamin D2) 50,000 unit PO WEEKLY 06/22/21 07/25/21 ferrous [id number] conc 1 cap PO DAILY 06/22/21 07/25/21 furosemide 40 mg PO DAILY 06/22/21 07/25/21 isosorbide mononitrate 30 mg PO DAILY 06/22/21 07/25/21 latanoprost 1 drp EACH EYE DAILY 06/22/21 07/25/21 levothyroxine [Synthroid] 150 mcg PO DAILY 06/22/21 07/25/21 pantoprazole 40 mg PO DAILY 06/22/21 07/25/21 spironolactone 12.5 mg PO DAILY 06/22/21 07/25/21 Allergies Allergy/AdvReac Type Severity Reaction Status Date / Time No Known Allergies Allergy Verified 07/25/21 13:45 Review of Systems Review of Systems: All systems reviewed & are unremarkable except as noted in HPI and below Constitutional: Constitutional: Denies body ache(s), Denies chills, Denies excessive sweating, Denies fatigue, Denies fever(s), Denies headache(s), Denies lethargy, Denies malaise and Denies weight loss Eyes: Eyes: Denies blurry vision, Denies change in vision and Denies loss of vision ENT: Denies dizziness, Denies ear discharge, Denies headache(s), Denies lip swelling, Denies epistaxis, Denies nasal congestion, Denies neck pain, Denies throat swelling and Denies tongue swelling Cardiovascular: Cardiovascular: Denies chest pain, Denies chest pain at rest, Denies chest pain with activity, Denies diaphoresis, Denies rapid heart rate, Denies edema, Denies irregular heart rhythm, Denies lightheadedness, Denies palpitations, Denies dyspnea and Denies dyspnea on exertion Respiratory: Respiratory: Denies chest congestion, Denies cough, Denies hemoptysis, Denies dyspnea and Denies dyspnea on exertion Gastrointestinal: Gastrointestinal: Denies abdominal pain, Denies melena, Denies hematochezia, Denies diarrhea, Denies nausea, Denies vomiting and Denies hematemesis Musculoskeletal: Musculoskeletal: Denies abnormal gait, Denies deformity, Denies joint swelling, Denies limited range of motion, Denies neck pain and Denies numbness Neurologic: Denies Abnormal speech present, Denies abnormal gait, Denies confusion, Denies dizziness, Denies headache(s), Denies focal weakness, Denies loss of vision, Denies numbness, Denies Other visual disturbances and Denies Sensory deficit (Neuro) Psychiatric: Psychiatric: Denies confusion, Denies depression, Denies auditory hallucinations, Denies homicidal ideation and Denies suicidal ideation Endocrine: Endocrine: Denies cold intolerance, Denies excessive sweating, Denies fatigue, Denies heat intolerance and Denies palpitations Hematologic/Lymphatic: Hematologic/Lymphatic: Denies easy bleeding and Denies easy bruising Allergic/Immunologic: Allergic/Immunologic: Denies lip swelling, Denies throat swelling and Denies tongue swelling PMFSH Past Medical History Medical History Chronic anemia Chronic obstructive pulmonary disease Chronic respiratory failure with hypoxia COVID-19 (06/2021) End-stage renal disease on hemodialysis Eryth
[2021-08-08] MEDS: ACETAMINOPHEN 325 MG TABLET 650 MG PO (22:56)
[2021-08-08] MEDS: diphenhydrAMINE HCl CAP 25 MG CAPSULE PO (22:57)
[2021-08-08] MEDS: SODIUM CHLORIDE 0.9% IV 250 ML 30 ML IV CONT (23:19)
[2021-08-08 23:20] VITALS: BP 155/52; PULSE 83; RESP 18; TEMP 36.8; O2SAT 99
[2021-08-08 23:41] VITALS: BP 146/44; PULSE 72; RESP 16; TEMP 36.9; O2SAT 100
[2021-08-09] VITALS (23 sets, daily range): BP systolic 108–179; BP diastolic 30–54; PULSE 62–96; RESP 16–20; TEMP 36.1–36.8; O2SAT 93–100; BMI 21.4
--- NOTE | 2021-08-09 00:36 | PM.IMHP ---
H&P: HPI History of Present Illness Date/Time: 08/09/21 00:36 Chief Complaint: Low hemoglobin. Narrative: This is an 86-year-old female with past medical history significant for type 2 diabetes mellitus, hypertension, hypothyroidism, end-stage renal disease on hemodialysis, anemia of chronic disease. Patient with recent admission and discharge where she was thoroughly worked up for acute on chronic anemia patient found to have gastric polyps. Patient is brought today to the emergency room for evaluation after lab work in the outpatient setting showed a hemoglobin of 5.9. Patient is been admitted for blood transfusion and further evaluation, management and treatment. Patient was unable to give much history. Review of Systems Review of Systems: Patient was sent over for evaluation from senior care due to hemoglobin of 5.9 ROS unobtainable: Yes unobtainable due to mental status (Dementia) [facility] Past Medical History Medical History Chronic anemia Chronic obstructive pulmonary disease Chronic respiratory failure with hypoxia COVID-19 (06/2021) End-stage renal disease on hemodialysis Erythropoietin deficiency anemia Gastroesophageal reflux disease Glaucoma Hyperlipidemia Hypertension Insulin dependent type 2 diabetes mellitus Osteoarthritis Renal osteodystrophy Vitamin D deficiency Surgical History Surgical History Status post creation of arteriovenous fistula Left upper extremity. Family History Family History Other Diabetes mellitus Hypertension Social History Social History Social History: Surrogate decision maker: Amy Contreras, roman. Code status: Full code. Smoking packs per day: 1 Smoking cigarettes per day: 20.0 Years smoked: 34 Smoking pack-years: 34.00 Smoking status: Former smoker Tobacco type: cigarettes Second hand tobacco smoke exposure: No Alcohol intake: never Substance use: never Substance use type: does not use Spiritual care concerns: No Meds Home Medications and Allergies Home Medications Medication Instructions Recorded Confirmed Type Levemir FlexTouch U-100 Insuln 15 unit SUBCUT HS 06/22/21 08/08/21 History atorvastatin 20 mg PO DAILY 06/22/21 08/08/21 History clonidine HCl 0.1 mg PO TID 06/22/21 08/08/21 History ergocalciferol (vitamin D2) 50,000 unit PO WEEKLY 06/22/21 08/08/21 History furosemide 40 mg PO DAILY 06/22/21 08/08/21 History isosorbide mononitrate 30 mg PO DAILY 06/22/21 08/08/21 History latanoprost 1 drp EACH EYE DAILY 06/22/21 08/08/21 History levothyroxine [Synthroid] 150 mcg PO DAILY 06/22/21 08/08/21 History pantoprazole 40 mg PO DAILY 06/22/21 08/08/21 History spironolactone 12.5 mg PO DAILY 06/22/21 08/08/21 History polysaccharide iron complex 150 mg PO DAILY 08/08/21 08/08/21 History blood sugar diagnostic [Accu-Chek 08/09/21 08/09/21 History Franny Plus test strp] Allergies Allergy/AdvReac Type Severity Reaction Status Date / Time No Known Allergies Allergy Verified 07/25/21 13:45 Vital Signs Vital Signs - 24 hr 08/08/21 21:20 08/08/21 23:20 08/08/21 23:41 Temperature 97.5 F L 98.2 F 98.5 F Pulse Rate 89 83 72 Respiratory Rate 22 H 18 16 Blood Pressure 180/60 H 155/52 H 146/44 H Pulse Oximetry 97 99 100 Exam Narrative: Patient is laying in a stretcher. Const: General: cooperative, comfortable, no acute distress, well developed, alert, awake, Physically active and ill appearing chronically Nutritional Appearance: thin Orientation/consciousness: oriented to person and oriented to place HENMT: Head: normal to inspection, normocephalic and atraumatic Ears: hearing grossly normal bilaterally General nose exam: Normal external nose present Face and sinus: normal facial exam Mouth: Yes oth
--- NOTE | 2021-08-09 01:14 | ADMGEN ---
This patient, Sofía Contreras, was admitted to [facility] Surg Room 311-01. Patient/family oriented to hospital policies and general routines including ID bracelet, bed and alarms, visiting hours, pain management, procedures, bathroom and other care routines, personal items, smoking policy, room service/diet, and visiting hours. Information on how to activate the Rapid Response Team has been discussed. Patient/Family are encouraged to report perceived risks to care and to ask questions if they do not understand what they are told or what they should do.
[2021-08-09 05:28] LABS: Glucose Point of Care 100 mg/dl (65-105)
[2021-08-09] MEDS: PANTOPRAZOLE SODIUM IV 40 MG VIAL IV PUSH ×2 (08:13→20:32)
--- NOTE | 2021-08-09 10:01 | PM.IMPN ---
Progress Note: A&P Additional Plan 86-year-old female with past medical history significant for type 2 diabetes mellitus, hypertension, hypothyroidism, end-stage renal disease on hemodialysis, anemia of chronic disease presented with worsening anemia. 1)Acute on Chronic Anemia: s/p 1 unit of PRBC upon admission Repeat H/H 6.11/23 Will transfuse 2 more units PPI IV BID GI consult Obtain fecal occult blood Blood work related to anemia might not be accurate now as she has already received transfusion 2)ESRD on HD: Appreciate nephro consult Dialysis as per renal 3)Diabetes Mellitus: BG check TID AC HS Low dose SS insulin Adjust dose as needed 4)DVT ppx: SCD 5)Code:Full 6)Dispo:pending improvement in anemia Time Spent With Patient Time with patient: 25 - 35 minutes Subjective Date/time seen: 08/09/21 10:01 Interval history: s/p 1 unit of PRBC since admission, post transfusion H/H has improved but still low. Recently discharged from hospital after negative EGD Review of Systems Review of Systems: All systems reviewed & are unremarkable except as noted in HPI and below Constitutional: Constitutional: Reports as per HPI Eyes: Eyes: Reports no additional eye complaints ENT: Reports system reviewed and no additional complaints, except as documented Cardiovascular: Cardiovascular: Reports no additional cardiovascular complaints Respiratory: Respiratory: Reports no additional respiratory complaints Gastrointestinal: Gastrointestinal: Reports melena Neurologic: Reports system reviewed and no additional complaints, except as documented Exam Const: General: comfortable and no acute distress HENMT: Mouth: Yes moist mucous membranes Eyes: Pupils: Equal, round and reactive pupils present Neck: Neck: supple Resp: Effort & Inspection: normal respiratory effort Auscultation: clear to auscultation bilaterally Cardio: Rate: regular rate Rhythm: regular rhythm GI: GI Palp: Yes Soft to palpation Auscultation: normal bowel sounds Skin: General skin exam: normal color Psych: Mental Status: mental status grossly normal Objective Data Vital Signs Vital Signs: Vital Signs - 24 hr 08/08/21 21:20 08/08/21 23:20 08/08/21 23:41 Temperature 97.5 F L 98.2 F 98.5 F Pulse Rate 89 83 72 Respiratory Rate 22 H 18 16 Blood Pressure 180/60 H 155/52 H 146/44 H Pulse Oximetry 97 99 100 08/09/21 00:41 08/09/21 00:43 08/09/21 02:00 Temperature 98.2 F 98.2 F 97.7 F Pulse Rate 70 70 69 Respiratory Rate 18 18 16 Blood Pressure 163/48 H 163/48 H 149/38 H Pulse Oximetry 100 100 96 08/09/21 02:25 08/09/21 04:00 08/09/21 06:00 Temperature 97.7 F 97.3 F L Pulse Rate 70 82 72 Respiratory Rate 16 16 Blood Pressure 149/42 H 159/30 H Pulse Oximetry 96 93 08/09/21 08:00 Temperature Pulse Rate 83 Respiratory Rate Blood Pressure Pulse Oximetry 98 Intake/Output Intake/Output: Intake & Output 08/06/21 08/07/21 08/08/21 08/09/21 23:59 23:59 23:59 23:59 Intake Total 0 1330 Balance 0 1330 Meds/Results Medications: Active Medications Generic Name Dose Route Start Last Admin Trade Name Freq PRN Reason Stop Dose Admin Pantoprazole Sodium 40 mg 08/09/21 09:00 08/09/21 08:13 Pantoprazole Sodium Iv 40 Mg Vial IV PUSH 40 mg Q12HR LAUREN Administration Labs Labs: Laboratory Results - last 24 hr 08/08/21 08/08/21 08/08/21 21:32 21:32 21:32 WBC 8.0 RBC 1.91 L Hgb 5.9 L* Hct 20.2 L* MCV 105.8 H MCH 30.9 MCHC 29.2 L RDW 16.3 H Plt Count 308 MPV 11.2 H Immature Gran % (Auto) 1.2 H Neut % (Auto) 75.1 H Lymph % (Auto) 13.2 L Mckinley % (Auto) 7.4 Eos % (Auto) 2.6 Baso % (Auto) 0.5 Lymph # (Auto) 1.06 Mckinley # (Auto) 0.6 Eos # (Auto) 0.2 Baso # (Auto) 0.0 Abs Immat Gran (auto) 0.10 H Absolute Neuts (auto) 6.0 Absolute Nucleated RBC 0.0 Nucleated RBC % 0.0 Platelet Estimate Adequate Hypochromasia
--- NOTE | 2021-08-09 10:09 | PM.CNNEP ---
Assessment and Plan Assessment and plan (1) End stage renal disease: Code(s): N18.6 - End stage renal disease Status: Chronic Assessment and Plan: plan HD tomorrow to resume outpatient (// schedule) follow electrolytes, volume status, and clearance (2) Profound anemia: Code(s): D64.9 - Anemia, unspecified Status: Acute Assessment and Plan: recurrent issues/problems hospitalized 2 weeks for same issue check anemia studies had EGD on last hospitalization for no acute findings PRBC transfusion per protocol consider Hematology consultation to r/o other causes of anemia follow trend of H/H (3) Chronic respiratory failure with hypoxia: Code(s): J96.11 - Chronic respiratory failure with hypoxia Status: Chronic Assessment and Plan: on baseline oxygen requirements follow respiratory status (4) Hypertension: Code(s): I10 - Essential (primary) hypertension Status: Chronic Assessment and Plan: reasonable control at this time follow trend of hemodynamics (5) Diabetes: Code(s): E11.9 - Type 2 diabetes mellitus without complications Status: Chronic Assessment and Plan: follow accuchecks glycemic control Will continue to follow. History of Present Illness Reason for Consult Consult date: 08/10/21 Reason for consult: end stage renal disease Chief Complaint Chief complaint: Symptomatic anemia, end-stage renal disease on liane History of Present Illness Narrative: Most of the history that I have obtained is from review of the electronic medical records as well as discussion with the ER physician earlier today as the patient is not the best historian. The patient is a 86-year-old female with an extensive past medical history as outlined below who presented to [facility] Emergency room for further evaluation of a low hemoglobin that was noted by her PCP/long-term/ Specifically, her hemoglobin was reported to be around 5.1. The patient does not give any specific complaints other than generalized weakness. It should be noted that the patient was just recently hospitalized for significant edema and underwent a fairly extensive workup and evaluation for this issue including EGD by GI which did not demonstrate any significant findings to explain her severe anemia at that time. She did receive packed red blood cell transfusions and her hemoglobin remained relatively stable following this intervention and prior to her discharge from this hospital. Workup and evaluation emergency room demonstrated the patient to be hemodynamically stable and routine blood test demonstrated labs consistent with her known history of end-stage renal disease but she was moved found to be markedly anemic with a hemoglobin of 5.9 and hematocrit of 20.2. Given this laboratory finding in constellation with a recent admission for the same issue, she was typed and crossed for a packed red blood cell transfusion and subsequent admitted to the hospital for further workup and evaluation. Renal consultation was requested due to her end-stage renal disease. The patient normally does dialysis on a Sunday, Sunday, Sunday dialysis schedule under the care of Dr. Hayden Waite at [facility]. She received her scheduled dialysis treatment yesterday at her outpatient dialysis unit without any issues. The patient is somewhat familiar to me as I have taking care of her before on previous hospitalizations here [facility]. Currently, she has no critical electrolyte abnormalities and her volume status appears to be relatively stable as she is on her home dose of 3L of oxygen by nasal cannula She does not appear to have any other issues/problems to report at this time. Review of Systems Review of Systems: As per HPI (but limited) [facility] Past Medical History Medical History
[2021-08-09] MEDS: FUROSEMIDE 40 MG TABLET PO (10:44)
[2021-08-09] MEDS: ATORVASTATIN 20 MG TABLET PO (10:45)
[2021-08-09] MEDS: ISOSORBIDE MONONITRATE 30 MG TAB.ER.24H PO (10:45)
[2021-08-09] MEDS: cloNIDine HCL 0.1 MG TABLET PO ×3 (10:45→16:57)
[2021-08-09 11:08] LABS: Hemoglobin 6.6 g/dL (12.0-15.0)
[2021-08-09] MEDS: SODIUM CHLORIDE 0.9% IV 250 ML 30 ML IV CONT (12:19)
--- NOTE | 2021-08-09 13:37 | WPDGICN ---
Assessment and Plan Assessment and plan (1) Profound anemia: Code(s): D64.9 - Anemia, unspecified Status: Acute Assessment and Plan: Once again there is no evidence of active bleeding. She has received 1 unit of blood with an increase of her hemoglobin from 5.9-6.6. She isreceiving a 2nd unit now. (2) End-stage renal disease on hemodialysis: Code(s): N18.6 - End stage renal disease; Z99.2 - Dependence on renal dialysis Status: Acute Assessment and Plan: Dialysis is 3 times a week. The large drop her counts last time was thought to be due to dialysis in some way because there was no evidence of bleeding and was a drastic drop in her hemoglobin (3) Chronic respiratory failure with hypoxia: Code(s): J96.11 - Chronic respiratory failure with hypoxia Status: Chronic Assessment and Plan: she is not dyspneic at present she is on 3 L of oxygen at home (4) Chronic anemia: Code(s): D64.9 - Anemia, unspecified Status: Acute Assessment and Plan: despite her chronic anemia, her MCV is 100. This mitigates against chronic blood loss as 1 would expect microcytic indices. (5) GI bleed: Code(s): K92.2 - Gastrointestinal hemorrhage, unspecified Status: Acute Assessment and Plan: I do not see any evidence of bleeding at this time. We will watch her stools. She has been maintained on pantoprazole therefore upper gastrointestinal bleed source would be very unlikely. GI Consult Note Consult date/time: 08/09/21 13:37 HPI: the patient is an 86-year-old female with past medical history significant for type 2 diabetes mellitus, hypertension, hypothyroidism, end-stage renal disease on hemodialysis, anemia of chronic disease. Patient with recent admission and discharge where she was thoroughly worked up for acute on chronic anemia patient found to have gastric polyps. Patient is brought today to the emergency room for evaluation after lab work in the outpatient setting showed a hemoglobin of 5.9. Patient is been admitted for blood transfusion and further evaluation, management and treatment. Patient was unable to give much history. she was just recently discharged after similar hospitalization for a significant drop in blood counts. There was no clinical evidence of bleeding at that time although it had been presumed she was bleeding Due to the drop in her counts. Her hemoglobin had dropped from about 14 down to 5. At the time of discharge it was around 8. Now it has dropped again. There was no evidence of bleeding with the last hospitalization a except that she had a Hemoccult-positive stool. EGD revealed only a duodenal polyp but no other evidence of pathology. She has never had bloody stools that would indicate a possible lower gastrointestinal bleed, and certainly with that significant drop her counts there when a bed a large amount of blood passed. It appears that the blood count dropped after or during her dialysis. Now she is admitted with the same scenario. She is not a good historian but she denies seeing any blood her stools. She denies abdominal pain. The prison found a drop in her blood count but did not see any evidence of bleeding. Review of Systems Review of Systems: All systems reviewed & are unremarkable except as noted in HPI and below PMFSH Past Medical History Medical History Chronic anemia Chronic obstructive pulmonary disease Chronic respiratory failure with hypoxia COVID-19 (06/2021) End-stage renal disease on hemodialysis Erythropoietin deficiency anemia Gastroesophageal reflux disease Glaucoma Hyperlipidemia Hypertension Insulin dependent type 2 diabetes mellitus Osteoarthritis Renal osteodystrophy Vitamin D deficiency Surgical History Surgical History Status post creation of arteriovenous fistula
[2021-08-09 16:34] LABS: Glucose Point of Care 117 mg/dl (65-105)
[2021-08-09] MEDS: LATANOPROST 0.005% OP SOLN 2.5 ML BTL 1 DROP EACH EYE (20:32)
[2021-08-09 21:22] LABS: Glucose Point of Care 109 mg/dl (65-105)
[2021-08-10] VITALS (27 sets, daily range): BP systolic 126–167; BP diastolic 42–64; PULSE 55–71; RESP 15–18; TEMP 35.8–37; O2SAT 96–100
[2021-08-10 06:28] LABS: Alanine Aminotransferase 9 U/L (4-35); Albumin Level 3.4 g/dL (3.5-5.1); Alkaline Phosphatase 72 U/L (38-126); Anion Gap 5 mmol/L (8-16); Aspartate Amino Transferase 20 U/L (14-36); Bilirubin,Total 0.3 mg/dL (0.2-1.3); Blood Urea Nitrogen 54 mg/dL (7-17); Calcium 8.8 mg/dL (8.4-10.2); Carbon Dioxide 33 mmol/L (22-30); Chloride 99 mmol/L (98-107); Estimated CRCL calculation 17 ml/min; Estimated Glomerular Filt Rate 19; Glucose 104 mg/dL (65-110); Lactate Dehydrogenase 344 U/L (313-618); Phosphorus 4.2 mg/dL (2.5-4.5); Potassium 4.6 mmol/L (3.4-5.0); Sodium 137 mmol/L (137-145)
[2021-08-10 06:31] LABS: Basophils Absolute Auto 0.1 K/mm3 (0.0-0.1); Eosinophils Absolute Auto 0.5 K/mm3 (0-0.3); Eosinophils Percent Auto 5.1 % (0-4.4); Hematocrit 27.3 % (37.0-47.0); Hemoglobin 8.6 g/dL (12.0-15.0); Immature Granulocyte Absolute 0.13 K/mm3 (0.00-0.031); Immature Granulocyte Percent A 1.3 % (0-0.5); Lymphocytes Absolute Auto 1.13 K/mm3 (0.9-3.2); Lymphocytes Percent Auto 11.2 % (18.3-44.2); Mean Corpuscular HGB Conc 31.5 g/dl (32-36); Mean Corpuscular Hemoglobin 28.4 pg (26-34); Mean Corpuscular Volume 90.1 fl (80-100); Mean Platelet Volume 11.3 fl (7.4-10.4); Monocytes Absolute Auto 0.7 K/mm3 (0.1-0.6); Monocytes Percent Auto 6.7 % (2.6-8.5); Neutrophils Absolute Auto 7.5 K/mm3 (1.3-6.7); Neutrophils Percent Auto 74.7 % (45.5-73.1); Platelet Count Result 331 k/mm3 (150-375); Red Blood Count 3.03 M/mm3 (4.2-5.4); White Blood Count 10.1 K/mm3 (4.5-10.0)
[2021-08-10] MEDS: LEVOTHYROXINE SODIUM 150 MCG TABLET PO (06:48)
[2021-08-10 07:08] LABS: Iron 68 ug/dL (37-170)
[2021-08-10 07:19] LABS: Percent Iron Saturation 22 % (20-50)
[2021-08-10 07:32] LABS: Folic Acid 7.8 ng/mL (2.76->20)
[2021-08-10 07:36] LABS: Hepatitis B Surface Antigen Negative (Negative)
[2021-08-10 07:39] LABS: IFOB Positive Control Positive; Immunochemical Fecal Occult Bl Negative (N)
[2021-08-10 07:40] LABS: Glucose Point of Care 126 mg/dl (65-105)
[2021-08-10 07:42] LABS: HAV RESULT Negative (Negative); Hepatitis B Core IgM Result Negative (Negative)
[2021-08-10 07:53] LABS: Hepatitis B Surface Anti Res Negative; Hepatitis C Virus Antibody Negative (Negative)
[2021-08-10] MEDS: cloNIDine HCL 0.1 MG TABLET PO ×3 (08:33→17:10)
[2021-08-10] MEDS: ATORVASTATIN 20 MG TABLET PO (08:33)
[2021-08-10] MEDS: PANTOPRAZOLE SODIUM IV 40 MG VIAL IV PUSH ×2 (08:34→21:01)
[2021-08-10] MEDS: ISOSORBIDE MONONITRATE 30 MG TAB.ER.24H PO (08:34)
[2021-08-10] MEDS: FUROSEMIDE 40 MG TABLET PO (08:34)
[2021-08-10 10:00] LABS: Hemoglobin A1C 4.7 % (<5.7)
[2021-08-10 11:30] LABS: Glucose Point of Care 107 mg/dl (65-105)
--- NOTE | 2021-08-10 15:59 | PM.PNNEP ---
Progress Note: A&P Assessment and Plan (1) End stage renal disease: Code(s): N18.6 - End stage renal disease Status: Chronic Assessment and Plan: HD today and continue outpatient (// schedule) follow electrolytes, volume status, and clearance (2) Profound anemia: Code(s): D64.9 - Anemia, unspecified Status: Acute Assessment and Plan: recurrent issues/problem hospitalized 2 weeks for same issue mild iron deficiency by anemia studies - dose venofer with HHD had EGD on last hospitalization with no acute findings - GI recommendations noted PRBC transfusion per protocol consider Hematology consultation to r/o other causes of anemia follow trend of H/H (3) Chronic respiratory failure with hypoxia: Code(s): J96.11 - Chronic respiratory failure with hypoxia Status: Chronic Assessment and Plan: on baseline oxygen requirements follow respiratory status (4) Hypertension: Code(s): I10 - Essential (primary) hypertension Status: Chronic Assessment and Plan: reasonable control at this time follow trend of hemodynamics (5) Diabetes: Code(s): E11.9 - Type 2 diabetes mellitus without complications Status: Chronic Assessment and Plan: follow accuchecks glycemic control Will continue to follow. Subjective Date/time seen: 08/10/21 15:59 Tolerating dialysis at the time of my visit (seen on dialysis at 3:45PM); feels a bit better following PRBC transfusion yesterday; no other acute issues/events to report; no apparent distress voiced; no issues/events overnight or earlier this morning. Exam Narrative: General: chronically ill appearing female in NAD Heart: normal S1 and S2; no rub Lungs: decreased at bases Abdomen: soft, nontender, nondistended, positive bowel sounds Extremities: no cyanosis or clubbing; no edema Skin: warm and dry Objective Data Vital Signs Vital Signs: Vital Signs Temp Pulse Resp BP Pulse Ox 08/10/21 15:45 64 146/59 H 08/10/21 15:30 65 143/61 H 08/10/21 15:15 55 L 131/55 L 08/10/21 15:00 59 L 131/53 L 08/10/21 14:45 62 149/57 H 08/10/21 14:30 36.6 C 65 18 144/57 H 08/10/21 14:00 36.3 C L 64 15 131/45 L 100 08/10/21 12:36 167/44 H 08/10/21 12:00 66 08/10/21 08:30 99 08/10/21 08:00 66 08/10/21 04:00 35.8 C L 62 16 167/43 H 100 08/10/21 00:00 60 08/09/21 22:00 36.3 C L 67 20 161/48 H 99 08/09/21 20:47 36.3 C L 70 18 161/48 H 99 08/09/21 20:00 96 08/09/21 19:57 98 08/09/21 18:40 36.3 C L 73 20 175/53 H 97 08/09/21 17:40 36.3 C L 72 19 179/46 H 100 08/09/21 16:40 36.7 C 70 20 179/41 H 100 Intake/Output Intake/Output: Intake & Output 08/07/21 08/08/21 08/09/21 08/10/21 23:59 23:59 23:59 23:59 Intake Total 0 3090 530 Output Total 100 1 Balance 0 2990 529 Meds/Results Medications: Active Medications Generic Name Dose Route Start Last Admin Trade Name Freq PRN Reason Stop Dose Admin Atorvastatin Calcium 20 mg 08/09/21 09:00 08/10/21 08:33 Atorvastatin 20 Mg Tablet PO 20 mg DAILY LAUREN Administration Clonidine HCl 0.1 mg 08/09/21 10:10 08/10/21 12:48 Clonidine Hcl 0.1 Mg Tablet PO 0.1 mg TID LAUREN Administration Dextrose 12.5 gm 08/09/21 13:09 Dextrose 50% 25 Gm/50 Ml Syringe IV PUSH PRN PRN Hypoglycemia Protocol Epoetin Samuel 20,000 units 08/10/21 22:10 Epoetin Samuel 20,000 Units/Ml Vial IV PUSH 08/10/21 22:11 ONCE ONE Ergocalciferol 50,000 unit 08/14/21 09:00 Ergocalciferol 50,000 Unit Capsule PO Reyez@0900 LAUREN Furosemide 40 mg 08/09/21 09:00 08/10/21 08:34 Furosemide 40 Mg Tablet PO 40 mg DAILY LAUREN Administration Glucagon 1 mg 08/09/21 13:09 Glucagon For Inj 1 Mg Vial IM PRN PRN Hypoglycemia Protocol Glucose 15 gm 08/09/21 13:09
[2021-08-10 16:13] LABS: Glucose Point of Care 104 mg/dl (65-105)
--- NOTE | 2021-08-10 16:30 | PM.IMPN ---
Progress Note: A&P Assessment and Plan (1) Symptomatic anemia: Code(s): D64.9 - Anemia, unspecified Status: Acute (2) End-stage renal disease on hemodialysis: Code(s): N18.6 - End stage renal disease; Z99.2 - Dependence on renal dialysis Status: Acute (3) Gastroesophageal reflux disease: Code(s): K21.9 - Gastro-esophageal reflux disease without esophagitis Status: Acute (4) Chronic respiratory failure with hypoxia: Code(s): J96.11 - Chronic respiratory failure with hypoxia Status: Chronic (5) COPD (chronic obstructive pulmonary disease): Code(s): J44.9 - Chronic obstructive pulmonary disease, unspecified Status: Acute Assessment and Plan: Not on inhalers at home. Continue to monitor (6) HTN (hypertension): Code(s): I10 - Essential (primary) hypertension Status: Chronic Additional Plan 86-year-old female with past medical history significant for type 2 diabetes mellitus, hypertension, hypothyroidism, end-stage renal disease on hemodialysis, anemia of chronic disease presented with worsening anemia. # Acute on Chronic Anemia: s/p 1 unit of PRBC upon admission Repeat H/H .11/23, transfused 2 more units. H&H appropriate today. PPI b.i.d. Fecal occult blood is negative again. GI consulted # recent EGD with gastric polyps # ESRD on HD: Appreciate nephro consult Dialysis as per renal # Diabetes Mellitus: BG check TID AC HS Low dose SS insulin Adjust dose as needed # DVT ppx: SCD # hypertension home medication # hypothyroidism # Chronic respiratory failure with baseline oxygen at home 3 L at home # Code:Full # Dispo:pending improvement in anemia Subjective Date/time seen: 08/10/21 16:30 Interval history: Feeling well. No new complaints. Denies any dark stool. Stool occult blood has been negative Review of Systems Review of Systems: All systems reviewed & are unremarkable except as noted in HPI and below Exam Narrative: Const: General: comfortable and no acute distress HENMT: Mouth: Yes moist mucous membranes Eyes: Pupils: Equal, round and reactive pupils present Neck: Neck: supple nontender Resp: Effort & Inspection: normal respiratory effort Auscultation: clear to auscultation bilaterally Cardio: Rate: regular rate Rhythm: regular rhythm GI: GI Palp: Yes Soft to palpation Auscultation: normal bowel sounds Skin: General skin exam: normal color Psych: Mental Status: mental status grossly normal Objective Data Vital Signs Vital Signs: Vital Signs - 24 hr 08/09/21 16:40 08/09/21 17:40 08/09/21 18:40 Temperature 98.0 F 97.4 F L 97.4 F L Pulse Rate 70 72 73 Respiratory Rate 20 19 20 Blood Pressure 179/41 H 179/46 H 175/53 H Pulse Oximetry 100 100 97 08/09/21 19:57 08/09/21 20:00 08/09/21 20:47 Temperature 97.3 F L Pulse Rate 96 70 Respiratory Rate 18 Blood Pressure 161/48 H Pulse Oximetry 98 99 08/09/21 22:00 08/10/21 00:00 08/10/21 04:00 Temperature 97.3 F L 96.5 F L Pulse Rate 67 60 62 Respiratory Rate 20 16 Blood Pressure 161/48 H 167/43 H Pulse Oximetry 99 100 08/10/21 08:00 08/10/21 08:30 08/10/21 12:00 Temperature Pulse Rate 66 66 Respiratory Rate Blood Pressure Pulse Oximetry 99 08/10/21 12:36 08/10/21 14:00 08/10/21 14:30 Temperature 97.4 F L 97.8 F Pulse Rate 64 65 Respiratory Rate 15 18 Blood Pressure 167/44 H 131/45 L 144/57 H Pulse Oximetry 100 08/10/21 14:45 08/10/21 15:00 08/10/21 15:15 Temperature Pulse Rate 62 59 L 55 L Respiratory Rate Blood Pressure 149/57 H 131/53 L 131/55 L Pulse Oximetry 08/10/21 15:30 08/10/21 15:45 08/10/21 16:00 Temperature Pulse Rate 65 64 63 Respiratory Rate Blood Pressure 143/61 H 146/59 H 126/44 L Pulse Oximetry 08/10/21 16:02 Temperature Pulse Rate Respiratory Rate Blood Pressure Pulse Oximetry 98 Intake/Output Intake/Output: Intak
[2021-08-10] MEDS: EPOETIN ALFA 20,000 UNITS/ML VIAL 20000 UNITS IV PUSH (17:09)
[2021-08-10 18:56] LABS: Folic Acid 5.6 ng/mL (2.76->20)
[2021-08-10 20:24] LABS: Glucose Point of Care 198 mg/dl (65-105)
[2021-08-10] MEDS: LATANOPROST 0.005% OP SOLN 2.5 ML BTL 1 DROP EACH EYE (21:01)
--- NOTE | 2021-08-11 | ECHO_ITS ---
Patient Info Name: Sofía Contreras Age: 86 years : 1935 Gender: Female Ht: 69 in Wt: 147 lbs BSA: 1.80 m2 HR: 72 bpm BP: 169 / 54 mmHg Heart Rhythm: Sinus Rhythm Exam Date: 08/11/2021 3:03 PM Exam Location: [facility] Patient Status: Outpatient Admit Date: 08/08/2021 Staff Ordering Physician: Julián Cabrera MD Electric Shaver Mechanic: Zeus Cortez, RY, RT Attending Provider: Julián Cabrera MD Exam Type: CA echo doppler color flow Study Info Indications R06.02 - Shortness of breath Complete two-dimensional, color flow and Doppler transthoracic echocardiogram is performed. Strain analysis performed. Summary 1. Complete two-dimensional, color flow and Doppler transthoracic echocardiogram is performed. 2. Left atrial chamber dimension is moderately enlarged. 3. There is no aortic valve stenosis. 4. Mild mitral stenosis mean gradient 4 mm Hg valve area 2.4 centimeters squared. 5. There is mild mitral valve regurgitation. 6. The mitral valve annulus is severely calcified. 7. Left ventricular chamber dimension is mildly enlarged. 8. Left ventricular systolic function is normal, estimated at 65-70%. 9. There is moderately increased left ventricular wall thickness. 10. The left ventricular diastolic function is grade I diastolic dysfunction. 11. Global longitudinal strain is normal at -18 %. Left Ventricle Left ventricular chamber dimension is mildly enlarged. Left ventricular systolic function is normal, estimated at 65-70%. There is moderately increased left ventricular wall thickness. The left ventricular diastolic function is grade I diastolic dysfunction. Global longitudinal strain is normal at -18 %. Right Ventricle Right ventricular chamber dimension is normal. Right ventricular systolic function is normal. Left Atria Left atrial chamber dimension is moderately enlarged. Right Atria Right atrial chamber dimension is mildly enlarged. Aortic Valve The aortic valve is not well visualized. There is no aortic valve stenosis. There is no aortic valve regurgitation. Pulmonic Valve The pulmonic valve is not well visualized. Mitral Valve The mitral valve has thickened leaflets. There is mild mitral valve regurgitation. The mitral valve annulus is severely calcified. Mild mitral stenosis mean gradient 4 mm Hg valve area 2.4 centimeters squared. Tricuspid Valve The tricuspid valve leaflets are normal. There is trace tricuspid valve regurgitation. Unable to estimate PA systolic pressure due to poor spectral resolution of tricuspid regurgitant jet velocity. Pericardium/Pleural The pericardium appears normal. There is no pericardial effusion. Inferior Vena Cava Dilated inferior vena cava with >50% collapse upon inspiration consistent with elevated right atrial pressure, 10 mmHg. Aorta The aortic root size at the sinus of Valsalva is normal. There is moderate aortic atherosclerosis. Left Ventricular Outflow Tract Name Value Normal LVOT 2D LVOT Diameter 2.0 cm LVOT Doppler LVOT Peak Gradient 7 mmHg LVOT Mean Gradient
[2021-08-11 02:16] VITALS: O2SAT 95
[2021-08-11] MEDS: LEVOTHYROXINE SODIUM 150 MCG TABLET PO (05:41)
[2021-08-11 06:00] VITALS: BP 169/54; PULSE 74; RESP 18; TEMP 35.9; O2SAT 100
[2021-08-11 06:01] LABS: Basophils Absolute Auto 0.1 K/mm3 (0.0-0.1); Eosinophils Absolute Auto 0.4 K/mm3 (0-0.3); Eosinophils Percent Auto 4.6 % (0-4.4); Hemoglobin 9.3 g/dL (12.0-15.0); Immature Granulocyte Absolute 0.11 K/mm3 (0.00-0.031); Immature Granulocyte Percent A 1.2 % (0-0.5); Lymphocytes Absolute Auto 0.87 K/mm3 (0.9-3.2); Lymphocytes Percent Auto 9.1 % (18.3-44.2); Mean Corpuscular Volume 96.6 fl (80-100); Mean Platelet Volume 11.2 fl (7.4-10.4); Monocytes Absolute Auto 0.7 K/mm3 (0.1-0.6); Monocytes Percent Auto 7.8 % (2.6-8.5); Neutrophils Absolute Auto 7.3 K/mm3 (1.3-6.7); Neutrophils Percent Auto 76.3 % (45.5-73.1); Platelet Count Result 293 k/mm3 (150-375); Red Blood Count 3.21 M/mm3 (4.2-5.4); Red Cell Distribution Width 20.9 % (11.5-14.5); White Blood Count 9.5 K/mm3 (4.5-10.0)
[2021-08-11 06:07] LABS: Alanine Aminotransferase 9 U/L (4-35); Albumin Level 3.4 g/dL (3.5-5.1); Alkaline Phosphatase 75 U/L (38-126); Anion Gap 5 mmol/L (8-16); Aspartate Amino Transferase 20 U/L (14-36); Bilirubin,Total 0.3 mg/dL (0.2-1.3); Blood Urea Nitrogen 20 mg/dL (7-17); Calcium 8.6 mg/dL (8.4-10.2); Carbon Dioxide 28 mmol/L (22-30); Chloride 104 mmol/L (98-107); Estimated CRCL calculation 20 ml/min; Estimated Glomerular Filt Rate 24; Glucose 104 mg/dL (65-110); Potassium 4.5 mmol/L (3.4-5.0); Sodium 137 mmol/L (137-145)
[2021-08-11 08:29] VITALS: O2SAT 96
[2021-08-11] MEDS: ISOSORBIDE MONONITRATE 30 MG TAB.ER.24H PO (08:58)
[2021-08-11] MEDS: cloNIDine HCL 0.1 MG TABLET PO ×2 (08:58→13:45)
[2021-08-11] MEDS: FUROSEMIDE 40 MG TABLET PO (08:58)
[2021-08-11] MEDS: PANTOPRAZOLE SODIUM IV 40 MG VIAL IV PUSH ×2 (08:59→20:31)
[2021-08-11] MEDS: ATORVASTATIN 20 MG TABLET PO (08:59)
[2021-08-11 11:06] LABS: Glucose Point of Care 96 mg/dl (65-105)
--- NOTE | 2021-08-11 11:37 | PM.PNNEP ---
Progress Note: A&P Assessment and Plan (1) End stage renal disease: Code(s): N18.6 - End stage renal disease Status: Chronic Assessment and Plan: HD tomorrow and continue outpatient (// schedule) follow electrolytes, volume status, and clearance (2) Profound anemia: Code(s): D64.9 - Anemia, unspecified Status: Acute Assessment and Plan: recurrent issues/problem hospitalized approximately 2 weeks for same issue mild iron deficiency by anemia studies - dose venofer with HD had EGD on last hospitalization with no acute findings - GI recommendations noted PRBC transfusion per protocol consider Hematology consultation to r/o other causes of anemia follow trend of H/H (3) Chronic respiratory failure with hypoxia: Code(s): J96.11 - Chronic respiratory failure with hypoxia Status: Chronic Assessment and Plan: on baseline oxygen requirements follow respiratory status (4) Hypertension: Code(s): I10 - Essential (primary) hypertension Status: Chronic Assessment and Plan: reasonable control at this time follow trend of hemodynamics (5) Diabetes: Code(s): E11.9 - Type 2 diabetes mellitus without complications Status: Chronic Assessment and Plan: follow accuchecks glycemic control Will continue to follow. Subjective Date/time seen: 08/11/21 11:37 Tolerated dialysis treatment yesterday without any issues or problems; H/H remains stable since recent PRBC transfusion; overall, states she does feel better; no apparent distress noted; no events overnight or earlier this morning. Exam Narrative: General: chronically ill appearing female in NAD Heart: normal S1 and S2; no rub Lungs: decreased at bases Abdomen: soft, nontender, nondistended, positive bowel sounds Extremities: no cyanosis or clubbing; no edema Skin: warm and stable Objective Data Vital Signs Vital Signs: Vital Signs Temp Pulse Resp BP Pulse Ox 08/11/21 08:29 96 08/11/21 06:00 35.9 C L 74 18 169/54 H 100 08/11/21 02:16 95 08/10/21 22:00 36.3 C L 71 18 148/64 H 96 08/10/21 18:30 36.6 C 65 18 154/62 H 08/10/21 18:15 64 156/52 H 08/10/21 18:00 68 156/64 H 08/10/21 17:45 66 156/63 H 08/10/21 17:30 64 160/57 H 08/10/21 17:15 65 154/51 H 08/10/21 17:00 66 131/42 L 08/10/21 16:45 65 136/52 L Intake/Output Intake/Output: Intake & Output 08/08/21 08/09/21 08/10/21 08/11/21 23:59 23:59 23:59 23:59 Intake Total 0 3090 1320 1350 Output Total 100 2001 400 Balance 0 2990 -681 950 Meds/Results Medications: Active Medications Generic Name Dose Route Start Last Admin Trade Name Freq PRN Reason Stop Dose Admin Atorvastatin Calcium 20 mg 08/09/21 09:00 08/11/21 08:59 Atorvastatin 20 Mg Tablet PO 20 mg DAILY LAUREN Administration Clonidine HCl 0.1 mg 08/09/21 10:10 08/11/21 13:45 Clonidine Hcl 0.1 Mg Tablet PO 0.1 mg TID LAUREN Administration Dextrose 12.5 gm 08/09/21 13:09 Dextrose 50% 25 Gm/50 Ml Syringe IV PUSH PRN PRN Hypoglycemia Protocol Ergocalciferol 50,000 unit 08/14/21 09:00 Ergocalciferol 50,000 Unit Capsule PO Reyez@0900 LAUREN Furosemide 40 mg 08/09/21 09:00 08/11/21 08:58 Furosemide 40 Mg Tablet PO 40 mg DAILY LAUREN Administration Glucagon 1 mg 08/09/21 13:09 Glucagon For Inj 1 Mg Vial IM PRN PRN Hypoglycemia Protocol Glucose 15 gm 08/09/21 13:09 Glucose Oral Gel 15 Gm Of Glucse In 37.5 Gm Tube PO PRN PRN Hypoglycemia Protocol Dextrose 1,000 mls @ 100 mls/hr 08/09/21 13:09 Dextrose 5% 1,000 Ml IVPB PRN PRN Hypoglycemia Protocol Albumin Human 50 mls @ 999 mls/hr 08/10/21 07:10 Albutein IVPB 09/09/21 07:09 Q10M PRN HYPOTENSION Insulin Aspart 2 - 5 units 08/09/21 17:00 08/11/21 11:56 Insulin A
[2021-08-11 11:51] LABS: Glucose Point of Care 96 mg/dl (65-105)
[2021-08-11 13:56] VITALS: BP 109/54; PULSE 59; RESP 18; TEMP 35.8; O2SAT 100
[2021-08-11 16:20] LABS: Glucose Point of Care 121 mg/dl (65-105)
--- NOTE | 2021-08-11 16:42 | PM.IMPN ---
Progress Note: A&P Assessment and Plan (1) Symptomatic anemia: Code(s): D64.9 - Anemia, unspecified Status: Acute (2) End-stage renal disease on hemodialysis: Code(s): N18.6 - End stage renal disease; Z99.2 - Dependence on renal dialysis Status: Acute (3) Gastroesophageal reflux disease: Code(s): K21.9 - Gastro-esophageal reflux disease without esophagitis Status: Acute (4) Chronic respiratory failure with hypoxia: Code(s): J96.11 - Chronic respiratory failure with hypoxia Status: Chronic (5) COPD (chronic obstructive pulmonary disease): Code(s): J44.9 - Chronic obstructive pulmonary disease, unspecified Status: Acute Assessment and Plan: Not on inhalers at home. Continue to monitor (6) HTN (hypertension): Code(s): I10 - Essential (primary) hypertension Status: Chronic Additional Plan 86-year-old female with past medical history significant for type 2 diabetes mellitus, hypertension, hypothyroidism, end-stage renal disease on hemodialysis, anemia of chronic disease presented with worsening anemia. # Acute on Chronic Anemia: s/p 1 unit of PRBC upon admission Repeat H/H 6.11/23, transfused 2 more units. H&H appropriate today. PPI b.i.d. Fecal occult blood is negative again. GI consulted no plans for colonoscopy noted as no obvious reason to suspect ongoing GI bleed Epogen given yesterday by nephrologists. Likely needs to be on Epogen shot as an outpatient basis with her dialysis Unclear etiology was she keeps on dropping. Will consult Hematology for their opinion. # recent EGD with gastric polyps # ESRD on HD: Appreciate nephro consult Dialysis as per renal # Diabetes Mellitus: BG check TID AC HS Low dose SS insulin Adjust dose as needed # DVT ppx: SCD # hypertension home medication # hypothyroidism # Chronic respiratory failure with baseline oxygen at home 3 L at home # Code:Full # Dispo: Discussed with son and updated on unclear reason for her recurrent anemia. This needs to be monitored of patient and me noon be transfusion dependent. Transfusion as an outpatient with Hematology help can be accomplished so she is coming back to the hospital before she could get to see a ground crew lines person. Discussed getting to see ground crew lines person while inpatient so this process can be expedited. He presents needs to be done due to her underlying chronic kidney disease leading to ongoing anemia. H&H does improve with a person given yesterday. Recheck H&H in morning and if remains stable and after Hematology evaluation may discharge her home with home health. Dialysis is scheduled for tomorrow Subjective Date/time seen: 08/11/21 16:42 Interval history: No overnight events. Feeling well. Eating her meal this morning. No nausea vomiting. Has not had any bowel movement since yesterday. Review of Systems Review of Systems: All systems reviewed & are unremarkable except as noted in HPI and below Exam Narrative: Const: General: comfortable and no acute distress HENMT: Mouth: Yes moist mucous membranes Eyes: Pupils: Equal, round and reactive pupils present Neck: Neck: supple nontender Resp: Effort & Inspection: normal respiratory effort Auscultation: clear to auscultation bilaterally Cardio: Rate: regular rate Rhythm: regular rhythm GI: GI Palp: Yes Soft to palpation Auscultation: normal bowel sounds Skin: General skin exam: normal color Psych: Mental Status: mental status grossly normal Objective Data Vital Signs Vital Signs: Vital Signs - 24 hr 08/10/21 16:45 08/10/21 17:00 08/10/21 17:15 Temperature Pulse Rate 65 66 65 Respiratory Rate Blood Pressure 136/52 L 131/42 L 154/51 H Pulse Oximetry 08/10/21 17:30 08/10/21 17:45 08/10/21 18:00 Temperature Pulse Rate 64 66 68 Respiratory Rate Blood Pressure 160/57 H 156/63 H 156/64 H Pulse Oximetry 08/10/21 18:15 08/10/21 18:30
--- NOTE | 2021-08-11 18:30 | PDONCCN ---
HPI - Date of Consult Date/Time: 08/11/21 18:30 Requesting Physician: Julián Cabrera MD Primary Care Provider: Jose Cruz Vega, - Consult Narrative Reason for consult: Anemia of chronic kidney disease Narrative: Sofía Contreras is a 86 year old female with end-stage renal disease on hemodialysis, type 2 diabetes, hypothyroidism and hypertension came into the hospital with tiredness and fatigue and found to have hemoglobin of 5.9. Patient was recently discharged from the hospital on August 01 when she was treated with anemia and received blood transfusion. Patient had EGD done on July 26 that showed gastric polyp, hiatal hernia, duodenal polyp and Schatzki rings. Labs on this admission showed hemoglobin of 5.9 with iron level of 68 and vitamin B12 306. She denies any bleeding including melena hematochezia. Her weight and appetite stable. She is hard of hearing and has been dealing with some dementia. She is a poor historian. Patient has received 3 units of blood since admission. Review of Systems - Review of Systems All systems reviewed & are unremarkable except as noted in HPI and bel - Neurologic Reports system reviewed and no additional complaints, except as documented, Reports confusion, Denies abnormal speech, Denies abnormal gait, Denies headache(s), Denies focal weakness, Denies loss of vision, Denies numbness, Denies other visual disturbances, Denies sensory deficit PMFSH Medical History: Medical History (Last Reviewed 08/09/21 @ 13:40 by Hans Appiah MD) Chronic anemia Chronic obstructive pulmonary disease Chronic respiratory failure with hypoxia COVID-19 Onset Date: 06/2021 End-stage renal disease on hemodialysis Erythropoietin deficiency anemia Gastroesophageal reflux disease Glaucoma Hyperlipidemia Hypertension Insulin dependent type 2 diabetes mellitus Osteoarthritis Renal osteodystrophy Vitamin D deficiency Surgical History: Surgical History (Last Reviewed 08/08/21 @ 22:14 by Buddy Pérez MD) Status post creation of arteriovenous fistula Left upper extremity. Family History: Family History (Last Reviewed 08/09/21 @ 13:40 by Hans Appiah MD) Other Diabetes mellitus Hypertension - Social History Social History: Social History (Last Reviewed 08/09/21 @ 13:40 by Hans Appiah MD) Alcohol Use: Alcohol intake: never Substance Use: Substance use: never Substance use type: does not use Others: Spiritual care concerns: No Smoking Status: Smoking status: Former smoker Tobacco type: cigarettes Second hand tobacco smoke exposure: No Approximate Smoking End Date: 1981 Smoking Pack-years: Smoking packs per day: 1 Smoking cigarettes per day: 20.0 Years smoked: 34 Smoking pack-years: 34.00 Meds Home Medications Medication Instructions Recorded Confirmed Type Levemir FlexTouch U-100 Insuln 15 unit SUBCUT HS 06/22/21 08/08/21 History atorvastatin 20 mg PO DAILY 06/22/21 08/09/21 History clonidine HCl 0.1 mg PO TID 06/22/21 08/09/21 History ergocalciferol (vitamin D2) 50,000 unit PO WEEKLY 06/22/21 08/09/21 History furosemide 40 mg PO DAILY 06/22/21 08/09/21 History isosorbide mononitrate 30 mg PO DAILY 06/22/21 08/09/21 History latanoprost 1 drp EACH EYE DAILY 06/22/21 08/09/21 History levothyroxine [Synthroid] 150 mcg PO DAILY 06/22/21 08/09/21 History pantoprazole 40 mg PO DAILY 06/22/21 08/09/21 History spironolactone 12.5 mg PO DAILY 06/22/21 08/09/21 History polysaccharide iron complex 150 mg PO DAILY 08/08/21 08/09/21 History blood sugar diagnostic [Accu-Chek 08/09/21 08/09/21 History Franny Plus test strp] Allergies Allergy/AdvReac Type Severity Reaction Status Date / Time latex Allergy Rash Verified 08/09/21 18:13 Results - Labs CBC & Chem 7: 08/11/21 05:38 08/11/21 05:38 Labs: Short CBC 08/11/21 Range/Units 05:38 WBC 9.5 (4.5-
[2021-08-11] MEDS: LATANOPROST 0.005% OP SOLN 2.5 ML BTL 1 DROP EACH EYE (20:31)
[2021-08-11 20:52] VITALS: O2SAT 99
[2021-08-11 22:00] VITALS: BP 174/45; PULSE 71; RESP 20; TEMP 36.1; O2SAT 100
[2021-08-12] VITALS (17 sets, daily range): BP systolic 90–203; BP diastolic 35–89; PULSE 52–98; RESP 16–20; TEMP 35.1–36.9; O2SAT 100
[2021-08-12] MEDS: LEVOTHYROXINE SODIUM 150 MCG TABLET PO (06:10)
[2021-08-12 06:19] LABS: Basophils Absolute Auto 0.1 K/mm3 (0.0-0.1); Basophils Percent Auto 0.9 % (0.2-1.2); Eosinophils Absolute Auto 0.5 K/mm3 (0-0.3); Eosinophils Percent Auto 5.3 % (0-4.4); Hematocrit 31.6 % (37.0-47.0); Hemoglobin 9.4 g/dL (12.0-15.0); Immature Granulocyte Absolute 0.06 K/mm3 (0.00-0.031); Immature Granulocyte Percent A 0.7 % (0-0.5); Lymphocytes Absolute Auto 0.83 K/mm3 (0.9-3.2); Lymphocytes Percent Auto 9.6 % (18.3-44.2); Mean Corpuscular HGB Conc 29.7 g/dl (32-36); Mean Corpuscular Hemoglobin 28.7 pg (26-34); Mean Corpuscular Volume 96.6 fl (80-100); Mean Platelet Volume 11.5 fl (7.4-10.4); Monocytes Absolute Auto 0.7 K/mm3 (0.1-0.6); Monocytes Percent Auto 7.9 % (2.6-8.5); Neutrophils Absolute Auto 6.6 K/mm3 (1.3-6.7); Neutrophils Percent Auto 75.6 % (45.5-73.1); Platelet Count Result 307 k/mm3 (150-375); Red Blood Count 3.27 M/mm3 (4.2-5.4); Red Cell Distribution Width 19.9 % (11.5-14.5); White Blood Count 8.7 K/mm3 (4.5-10.0)
[2021-08-12] MEDS: FUROSEMIDE 40 MG TABLET PO (07:38)
[2021-08-12] MEDS: ATORVASTATIN 20 MG TABLET PO (07:38)
[2021-08-12] MEDS: PANTOPRAZOLE SODIUM IV 40 MG VIAL IV PUSH (07:39)
--- NOTE | 2021-08-12 07:50 | PC.NURSE ---
Per lead printer, hold BP pills, lead printer informed pt bp elevated 191 sbp. Pt to recieved dialysis this AM.
[2021-08-12 08:14] LABS: Glucose Point of Care 110 mg/dl (65-105)
--- NOTE | 2021-08-12 10:08 | P.PNNP_ITS ---
Progress Note: A&P Assessment and Plan (1) End stage renal disease: Code(s): N18.6 - End stage renal disease Status: Chronic Assessment and Plan: * HD under way. * Next treatment on Sunday * potassium was okay yesterday. (2) Profound anemia: Code(s): D64.9 - Anemia, unspecified Status: Acute Assessment and Plan: * recurrent issues/problem * hospitalized approximately 2 weeks for same issue * hemoglobin up to 9.4 now. * Stool guaiacs were negative. * T sat is low. * Check reticulocyte count. * White cell count and platelet count okay so not pancytopenia. * Consider other bone marrow issue. Consider reticular endothelial system sequestration or hemolysis? * Transfusion when needed * had EGD on last hospitalization with no acute findings - GI following. * PRBC transfusion per protocol * consider Hematology consultation to r/o other causes of anemia * hb the same today as it was yesterday. (3) Chronic respiratory failure with hypoxia: Code(s): J96.11 - Chronic respiratory failure with hypoxia Status: Chronic Assessment and Plan: * on baseline oxygen requirements * follow respiratory status (4) Hypertension: Code(s): I10 - Essential (primary) hypertension Status: Chronic Assessment and Plan: * reasonable control at this time * follow trend of hemodynamics (5) Diabetes: Code(s): E11.9 - Type 2 diabetes mellitus without complications Status: Chronic Assessment and Plan: * on accuchecks per hospitalist Will continue to follow. Subjective Date/time seen: 08/12/21 10:08 Interval history: Patient is feeling about the same. No chest pain or shortness of breath. She is on dialysis and tolerating it well. She was seen at 9 30 a.m. Exam Narrative: General: chronically ill appearing female in NAD Heart: normal S1 and S2; no rub or gallop Lungs: decreased at bases Abdomen: soft, nontender, nondistended, positive bowel sounds Extremities: no edema Skin: no rash Objective Data Vital Signs Vital Signs: Vital Signs - 24 hr 08/11/21 13:56 08/11/21 20:52 08/11/21 22:00 Temperature 35.8 C L 36.1 C L Pulse Rate 59 L 71 Respiratory Rate 18 20 Blood Pressure 109/54 L 174/45 H Pulse Oximetry 100 99 100 08/12/21 05:42 08/12/21 08:25 08/12/21 08:39 Temperature 36.0 C L 36.7 C Pulse Rate 75 98 91 Respiratory Rate 20 18 Blood Pressure 191/56 H 198/87 H 203/89 H Pulse Oximetry 100 08/12/21 09:00 08/12/21 09:15 08/12/21 09:30 Temperature Pulse Rate 93 81 79 Respiratory Rate Blood Pressure 186/79 H 192/79 H 183/81 H Pulse Oximetry 08/12/21 09:45 08/12/21 10:00 Temperature Pulse Rate 83 87 Respiratory Rate Blood Pressure 182/83 H 187/71 H Pulse Oximetry Intake/Output Intake/Output: Intake & Output 08/09/21 08/10/21 08/11/21 08/12/21 23:59 23:59 23:59 23:59 Intake Total 3090 1320 1630 300 Output Total 100 2001 400 Balance 2990 -681 1230 300 Meds/Results Medications: Active Medications
--- NOTE | 2021-08-12 10:08 | PM.PNNEP ---
Progress Note: A&P Assessment and Plan (1) End stage renal disease: Code(s): N18.6 - End stage renal disease Status: Chronic Assessment and Plan: HD under way. Next treatment on Sunday potassium was okay yesterday. (2) Profound anemia: Code(s): D64.9 - Anemia, unspecified Status: Acute Assessment and Plan: recurrent issues/problem hospitalized approximately 2 weeks for same issue hemoglobin up to 9.4 now. Stool guaiacs were negative. T sat is low. Check reticulocyte count. White cell count and platelet count okay so not pancytopenia. Consider other bone marrow issue. Consider reticular endothelial system sequestration or hemolysis? Transfusion when needed had EGD on last hospitalization with no acute findings - GI following. PRBC transfusion per protocol consider Hematology consultation to r/o other causes of anemia hb the same today as it was yesterday. (3) Chronic respiratory failure with hypoxia: Code(s): J96.11 - Chronic respiratory failure with hypoxia Status: Chronic Assessment and Plan: on baseline oxygen requirements follow respiratory status (4) Hypertension: Code(s): I10 - Essential (primary) hypertension Status: Chronic Assessment and Plan: reasonable control at this time follow trend of hemodynamics (5) Diabetes: Code(s): E11.9 - Type 2 diabetes mellitus without complications Status: Chronic Assessment and Plan: on accuchecks per hospitalist Will continue to follow. Subjective Date/time seen: 08/12/21 10:08 Interval history: Patient is feeling about the same. No chest pain or shortness of breath. She is on dialysis and tolerating it well. She was seen at 9 30 a.m. Exam Narrative: General: chronically ill appearing female in NAD Heart: normal S1 and S2; no rub or gallop Lungs: decreased at bases Abdomen: soft, nontender, nondistended, positive bowel sounds Extremities: no edema Skin: no rash Objective Data Vital Signs Vital Signs: Vital Signs - 24 hr 08/11/21 13:56 08/11/21 20:52 08/11/21 22:00 Temperature 35.8 C L 36.1 C L Pulse Rate 59 L 71 Respiratory Rate 18 20 Blood Pressure 109/54 L 174/45 H Pulse Oximetry 100 99 100 08/12/21 05:42 08/12/21 08:25 08/12/21 08:39 Temperature 36.0 C L 36.7 C Pulse Rate 75 98 91 Respiratory Rate 20 18 Blood Pressure 191/56 H 198/87 H 203/89 H Pulse Oximetry 100 08/12/21 09:00 08/12/21 09:15 08/12/21 09:30 Temperature Pulse Rate 93 81 79 Respiratory Rate Blood Pressure 186/79 H 192/79 H 183/81 H Pulse Oximetry 08/12/21 09:45 08/12/21 10:00 Temperature Pulse Rate 83 87 Respiratory Rate Blood Pressure 182/83 H 187/71 H Pulse Oximetry Intake/Output Intake/Output: Intake & Output 08/09/21 08/10/21 08/11/21 08/12/21 23:59 23:59 23:59 23:59 Intake Total 3090 1320 1630 300 Output Total 100 2001 400 Balance 2990 -681 1230 300 Meds/Results Medications: Active Medications Generic Name Dose Route Start Last Admin Trade Name Freq PRN Reason Stop Dose Admin Atorvastatin Calcium 20 mg 08/09/21 09:00 08/12/21 07:38 Atorvastatin 20 Mg Tablet PO 20 mg DAILY LAUREN Administration Clonidine HCl 0.1 mg 08/09/21 10:10 08/12/21 07:49 Clonidine Hcl 0.1 Mg Tablet PO Not Given TID LAUREN Dextrose 12.5 gm 08/09/21 13:09 Dextrose 50% 25 Gm/50 Ml Syringe IV PUSH PRN PRN Hypoglycemia Protocol Epoetin Samuel-epbx 10,000 units 08/12/21 21:53 Epoetin Samuel-Epbx 10,000 Units/Ml Vial IV PUSH 08/12/21 21:54 ONCE ONE Ergocalciferol 50,000 unit 08/14/21 09:00 Ergocalciferol 50,000 Unit Capsule PO [email or web address]@[id number] LAUREN Furosemide 40 mg 08/09/21 09:00 08/12/21 07:38 Furosemide 40 Mg Tablet PO 40 mg DAILY LAUREN Administration Glucagon 1 mg 08/09/21 13:09 Glucagon For Inj 1 Mg Vial IM
[2021-08-12] MEDS: IRON SUCROSE COMPLEX 200 MG in SODIUM CHLORIDE 0.9% IV 50 ML 240 MG IVPB (10:44)
[2021-08-12] MEDS: SODIUM CHLORIDE 0.9% IV 1,000 ML 999 ML IV CONT (10:45)
[2021-08-12] MEDS: EPOETIN ALFA-EPBX 10,000 UNITS/ML VIAL 10000 UNITS IV PUSH (10:45)
--- NOTE | 2021-08-12 11:14 | PM.DS ---
DS: Admitting Diagnosis Discharge Date 08/12/2021 Admitting Diagnosis Abnormal lab/anemia DS: Discharge Diagnosis Discharge Diagnosis (1) Symptomatic anemia: Code(s): D64.9 - Anemia, unspecified Status: Acute (2) End-stage renal disease on hemodialysis: Code(s): N18.6 - End stage renal disease; Z99.2 - Dependence on renal dialysis Status: Acute (3) Gastroesophageal reflux disease: Code(s): K21.9 - Gastro-esophageal reflux disease without esophagitis Status: Acute (4) Chronic respiratory failure with hypoxia: Code(s): J96.11 - Chronic respiratory failure with hypoxia Status: Chronic (5) COPD (chronic obstructive pulmonary disease): Code(s): J44.9 - Chronic obstructive pulmonary disease, unspecified Status: Acute (6) HTN (hypertension): Code(s): I10 - Essential (primary) hypertension Status: Chronic DS: Summary Hospital Course Hospital Course: 86-year-old female with past medical history significant for type 2 diabetes mellitus, hypertension, hypothyroidism, end-stage renal disease on hemodialysis, anemia of chronic disease presented with worsening anemia. # Acute on Chronic Anemia: s/p 1 unit of PRBC upon admission Repeat H/H 6.11/23, transfused 2 more units. H&H appropriate and remained stable. Continue PPI b.i.d. Fecal occult blood is negative again. Will continue PPI daily at discharge is no upper GI source of bleeding evident. GI consulted no plans for colonoscopy noted as no obvious reason to suspect ongoing GI bleed Epogen given 08/10/2021 by directional survey drafter. Likely needs to be on Epogen shot as an outpatient basis with her dialysis Unclear etiology was she keeps on dropping. Consulted hematology. Started on vitamin B12 Will continue vitamin B12 weekly for month followed by monthly after that Methylmalonic acid ordered has been pending Will also need Epogen as an outpatient basis should be arranged by directional survey drafter/manufacturing engineering intern # recent EGD with gastric polyps # ESRD on HD: Appreciate nephro consult Dialysis as per renal done during the hospital stay as per schedule # Diabetes Mellitus: BG check TID AC HS Low dose SS insulin Adjust dose as needed # DVT ppx: SCD # hypertension home medication # hypothyroidism # Chronic respiratory failure with baseline oxygen at home 3 L at home # Code:Full # Dispo: Home with home health will be arranged. Labs in 3 days and need to monitored closely at least weekly we can with Time Spent with Patient Time attestation: Total time spent providing and/or coordinating discharge services: 50 minutes Exam Narrative: Const: General: comfortable and no acute distress HENMT: Mouth: Yes moist mucous membranes Eyes: Pupils: Equal, round and reactive pupils present Neck: Neck: supple nontender Resp: Effort & Inspection: normal respiratory effort Auscultation: clear to auscultation bilaterally Cardio: Rate: regular rate Rhythm: regular rhythm GI: GI Palp: Yes Soft to palpation Auscultation: normal bowel sounds Skin: General skin exam: normal color Psych: Mental Status: mental status grossly normal DS: Data Data Completed and Pending Labs on day of discharge: Labs from last 24 hours 08/12/21 08/12/21 08/11/21 07:46 05:35 16:16 WBC 8.7 RBC 3.27 L Hgb 9.4 L Hct 31.6 L MCV 96.6 MCH 28.7 MCHC 29.7 L RDW 19.9 H Plt Count 307 MPV 11.5 H Immature Gran % (Auto) 0.7 H Neut % (Auto) 75.6 H Lymph % (Auto) 9.6 L [place] % (Auto) 7.9 Eos % (Auto) 5.3 H Baso % (Auto) 0.9 Lymph # (Auto) 0.83 L [place] # (Auto) 0.7 H Eos # (Auto) 0.5 H Baso # (Auto) 0.1 Abs Immat Gran (auto) 0.06 H Absolute Neuts (auto) 6.6 Absolute Nucleated RBC 0.0 Nucleated RBC % 0.0 POC Capillary Glucose 110 H 121 H 08/11/21 11:33 WBC RBC Hgb Hct MCV MCH MCHC RDW Plt Count MPV Immature Gran % (Auto) Neut %
[2021-08-12 12:11] LABS: Glucose Point of Care 128 mg/dl (65-105)
--- NOTE | 2021-08-12 13:00 | PC.NURSE ---
son to meat pickler around 430-500pm this evening. Discharge paperwork explained to son via telephone.
[2021-08-12 16:40] LABS: Glucose Point of Care 97 mg/dl (65-105)
[2021-08-13 10:59] LABS: Haptoglobin 105 mg/dL (43-212)
[2021-08-17 23:15] LABS: Methylmalonic Acid 1120 nmol/L (87-318)
== END 2021-08-12 16:57 | disposition home health service (06) ==
LOC: ANHED 22:25 → ANH3MEDSUR 08-09 01:08
PROVIDERS: Emergency Medicine; Internal Medicine; Internal Medicine Nephrology; Admitting Provider Internal Medicine; Emergency Provider Emergency Medicine; PCP Internal Medicine; Visit Provider Internal Medicine
DX: D64.9 Anemia, unspecified (principal); J44.9 Chronic obstructive pulmonary disease, unspecified; J96.11 Chronic respiratory failure with hypoxia; I12.0 Hypertensive chronic kidney disease with stage 5 chronic kidney disease or end stage renal disease; D63.1 Anemia in chronic kidney disease; E11.22 Type 2 diabetes mellitus with diabetic chronic kidney disease; N18.6 End stage renal disease; Z99.2 Dependence on renal dialysis; K21.9 Gastro-esophageal reflux disease without esophagitis; E78.5 Hyperlipidemia, unspecified; N25.0 Renal osteodystrophy; E55.9 Vitamin D deficiency, unspecified; Z79.4 Long term (current) use of insulin; E03.9 Hypothyroidism, unspecified; F03.90 Unspecified dementia, unspecified severity, without behavioral disturbance, psychotic disturbance, mood disturbance, and anxiety; H40.9 Unspecified glaucoma; Z87.891 Personal history of nicotine dependence; I05.2 Rheumatic mitral stenosis with insufficiency
CPT/HCPCS: 36415; 36430; 80053; 80074; 82274; 82607; 82728; 82746; 82948; 83010; 83036; 83540; 83550; 83615; 83921; 84100; 85014; 85018; 85025; 85610; 85730; 86706; 86850; 86900; 86901; 86920; 93306; 96374; 96375; 96376; 99285; A9270; C9113; G0257; G0378; J1644; J1756; J7030; J7050; P9016; Q4081; Q5105

== ENCOUNTER 2021-11-07 09:49 | Emergency (ER) | payer MEDICARE, SELFPAY ==
--- NOTE | ~2021-11-07 | XR_ITS ---
XR knee RT 3V 11/07/2021 11:05 Indication: Right knee pain Procedure: 3 views right knee Comparison: No prior studies for comparison. Findings: There is severe tricompartment osteoarthritis of the right knee. No significant joint effus ion. No acute fracture or traumatic malalignment. Osteopenia. No focal soft tissue abnormality. No fo reign bodies. Impression: 1: Severe osteoarthritis of the right knee, most advanced in the medial compartment. Reviewed, dictated and finalized at location [facility]. Impression: 1: Severe osteoarthritis of the right knee, most advanced in the medial compart ment.
--- NOTE | ~2021-11-07 | CT_ITS ---
EXAMINATION: CT abdomen pelvis wo con DATE: 11/07/2021 10:56 INDICATION: Right lower quadrant abdominal pain. Black stools. History gastrointestinal bleeding. TECHNIQUE: Computed tomography (CT) of the abdomen and pelvis was performed without intravenous contr ast. Automated exposure control and iterative reconstruction technique were employed. Exam dose: 411 .09 mGy-cm total exam DLP. COMPARISON: 06/22/2021 right upper quadrant abdominal ultrasound examination FINDINGS: There is minimal dependent right lower lobe atelectasis and slight discoid atelectasis or s carring in the dependent left lower lobe. Cardiomegaly. No pericardial or pleural effusion. Approximately 1.3 cm hepatic cyst, medial segment right hepatic lobe. 2 cm right right hepatic hypoattenuating lesion within completely circumscribed margins; further eval uation with hepatic MRI is recommended. Normal splenic size. No pancreatic mass lesion, calcification or pancreatic duct dilatation. The gallbladder is present and appears unremarkable. No bile duct dilatation. Normal morphology of the adrenal glands. There are calcifications of the kidneys which appear to be primarily arterial. Possible small nonobst ructing calculus in each kidney. 12 mm upper pole right renal exophytic cyst. 2 cm upper pole left renal probable cyst. 5 mm exophytic cyst of the mid to lower left kidney. No ureteral calculus or hydroureteronephrosis is evident. The urinary bladder is unremarkable. The ut erus and adnexal areas are unremarkable. Prominent calcification of the abdominal aorta. Prominent calcification of the celiac, superior mesen teric and renal arteries. Prominent calcification of the iliac and femoral arteries. No abdominal aor tic aneurysm. No intraperitoneal or retroperitoneal or pelvic mass lesion or adenopathy or ascites. There is a very prominent fecal material in the rectosigmoid area. A prominent amount fecal material is noted in the ascending and transverse colon. Diverticulosis of left and right colon; no CT evidenc e of diverticulitis. No bowel obstruction or intraperitoneal free air. Very small fat-containing umbilical hernia. Intramedullary james and compression screw of proximal right femur. Burst fracture deformity of L3. Fusion at L5-S1. Diffuse idiopathic skeletal hyperostosis of the thor acic spine and degenerative changes of the lumbar spine. Bilateral hip osteoarthritis. IMPRESSION: Indeterminate 2 cm right hepatic hypoattenuating lesion; MRI is recommended for further evaluation (considering the lack of availability of iodinated contrast material for contrast CT exami [facility]) 1.3 cm hepatic cyst Renal cysts Extensive arterial calcifications the abdominal aorta, celiac, superior mesenteric and particularly r enal arteries. Also iliac and femoral arteries. Diverticulosis of left and right colon; no evidence of diverticulitis Burst fracture deformity of L3 Reviewed, dictated and finalized at [facility]. Reviewed, dictated and finalized at location A. IMPRESSION: Indeterminate 2 cm right hepatic hypoattenuating lesion; MRI is re commended for further evaluation (considering the lack of availability of iodin ated contrast material for contrast CT examination) 1.3 cm hepatic cyst Renal cysts Extensive arterial calcifications the abdominal aorta, celiac, superior mesente chel and particularly renal arteries. Also iliac and femoral arteries. Diverticulosis of left and right colon; no evidence of diverticulitis Burst fracture deformity of L3
--- NOTE | ~2021-11-07 | CT_ITS ---
EXAMINATION: CT brain wo con DATE: 11/07/2021 11:41 INDICATION: Confusion. TECHNIQUE: Computed tomography (CT) of the head was performed without intravenous contrast. The dose- length product was 605.33 mGy-cm. Automated exposure control and iterative reconstruction technique w ere employed. COMPARISON: CT dated 06/22/2021 FINDINGS: Mild generalized atrophy. There are scattered mild periventricular and subcortical white ma tter changes, most likely related to small vessel ischemic disease (microangiopathy). No acute intrac ranial hemorrhage, infarction, mass or mass effect. No ventriculomegaly or midline shift. Basilar cis terns are patent. There are chronic left lacunar infarctions involving the subinsular white matter an d lentiform nucleus. No acute intracranial hemorrhage, infarction, mass or mass effect. There is intr acranial atherosclerosis. Midline sagittal images are unremarkable. IMPRESSION: 1. No acute intracranial abnormality. 2: Chronic left lacunar infarctions. 3: Chronic age-related findings. Reviewed, dictated and finalized at location B.
[2021-11-07 09:54] VITALS: BP 198/56; PULSE 70; RESP 20; TEMP 36.2; O2SAT 97
[2021-11-07 10:06] VITALS: PULSE 68
--- NOTE | 2021-11-07 10:20 | ED.GENADULT ---
HPI - General Adult General Chief complaint: GI Bleed Stated complaint: low hgb Time Seen by Provider: 11/07/21 09:52 History of Present Illness HPI narrative: 86-year-old female presents to the emergency room today by EMS. She was sent to the hospital by her son due to generalized weakness, intermittent confusion, and concerns about hemoglobin. Patient is very hard of hearing and is a very poor historian. She is not able to tell us why she is here today. I spoke with her son on the phone. Her son reports that she has been complaining of feeling poorly for the past 2 days. He says it seems that she is not with it mentally for the past couple of days. She has had some intermittent problems with confusion and memory. She was not able to remember his name this morning. She reported that he did not give her her medicine after he had already given her medicine. He says that she has been very weak over the past few days. She has been complaining of her right knee hurting. Her son reports that she is normally fully alert and oriented. She has a history of renal failure and gets dialysis 3 days a week. Her son says that she does not make much urine. She just got home from rehab last Sunday. She has not had any recent falls. She has a history of a GI bleed in July of this year. She had a right hip replacement on August 19. Related Data Home Medications Medication Instructions Recorded Confirmed atorvastatin 20 mg tablet 20 mg PO DAILY 06/22/21 08/09/21 clonidine HCl 0.1 mg tablet 0.1 mg PO TID 06/22/21 08/09/21 ergocalciferol (vitamin D2) 1,250 50,000 unit PO WEEKLY 06/22/21 08/09/21 mcg (50,000 unit) capsule furosemide 40 mg tablet 40 mg PO DAILY 06/22/21 08/09/21 insulin detemir U-100 100 unit/mL 15 unit subcut HS 06/22/21 08/08/21 (3 mL) subcutaneous pen (Levemir FlexTouch U-100 Insulin) isosorbide mononitrate 30 mg 30 mg PO DAILY 06/22/21 08/09/21 tablet,extended release 24 hr latanoprost 0.005 % eye drops 1 drp EACH EYE DAILY 06/22/21 08/09/21 levothyroxine 150 mcg tablet 150 mcg PO DAILY 06/22/21 08/09/21 (Synthroid) pantoprazole 40 mg tablet,delayed 40 mg PO DAILY 06/22/21 08/09/21 release spironolactone 25 mg tablet 12.5 mg PO DAILY 06/22/21 08/09/21 polysaccharide iron complex 150 mg 150 mg PO DAILY 08/08/21 08/09/21 iron capsule blood sugar diagnostic (Accu-Chek 08/09/21 08/09/21 Franny Plus test strips) Allergies Allergy/AdvReac Type Severity Reaction Status Date / Time latex Allergy Rash Verified 11/07/21 10:04 Review of Systems Review of Systems: CONSTITUTIONAL: No fever or chills EYES: Denies visual changes ENT: Denies rhinorrhea, congestion, sore throat, or otalgia. CARDIOVASCULAR: Denies chest pain, palpitations, or edema. RESPIRATORY: Denies cough or dyspnea. GASTROINTESTINAL: Reporting pain in the right lower quadrant. No nausea vomiting or diarrhea. GENITOURINARY: Denies dysuria or hematuria. SKIN: Denies rash or itching. MUSCULOSKELETAL: Right knee pain NEUROLOGIC: Generalized weakness per son, confusion PMFSH Past Medical History Medical History Chronic anemia Chronic obstructive pulmonary disease Chronic respiratory failure with hypoxia COVID-19 (06/2021) End-stage renal disease on hemodialysis Erythropoietin deficiency anemia Gastroesophageal reflux disease Glaucoma Hyperlipidemia Hypertension Insulin dependent type 2 diabetes mellitus Osteoarthritis Renal osteodystrophy Vitamin D deficiency Surgical History Surgical History Status post creation of arteriovenous fistula Left upper extremity. Family History Family History Other Diabetes mellitus Hypertension Social History Social History Social History: Surrogate decision
[2021-11-07 10:26] LABS: Basophils Absolute Auto 0.1 K/mm3 (0.0-0.1); Basophils Percent Auto 0.8 % (0.2-1.2); Eosinophils Absolute Auto 0.3 K/mm3 (0-0.3); Eosinophils Percent Auto 3.9 % (0-4.4); Hemoglobin 10.4 g/dL (12.0-15.0); Immature Granulocyte Absolute 0.07 K/mm3 (0.00-0.031); Immature Granulocyte Percent A 0.9 % (0-0.5); Lymphocytes Absolute Auto 0.83 K/mm3 (0.9-3.2); Lymphocytes Percent Auto 11.2 % (18.3-44.2); Mean Corpuscular HGB Conc 29.7 g/dl (32-36); Mean Corpuscular Hemoglobin 28.6 pg (26-34); Mean Corpuscular Volume 96.2 fl (80-100); Mean Platelet Volume 10.6 fl (7.4-10.4); Monocytes Absolute Auto 0.6 K/mm3 (0.1-0.6); Neutrophils Absolute Auto 5.6 K/mm3 (1.3-6.7); Neutrophils Percent Auto 75.2 % (45.5-73.1); Platelet Count Result 330 k/mm3 (150-375); Red Blood Count 3.64 M/mm3 (4.2-5.4); Red Cell Distribution Width 14.6 % (11.5-14.5); White Blood Count 7.4 K/mm3 (4.5-10.0)
[2021-11-07 10:35] LABS: Alanine Aminotransferase 11 U/L (6-35); Albumin Level 4.2 g/dL (3.5-5.1); Alkaline Phosphatase 85 U/L (38-126); Anion Gap 7 mmol/L (8-16); Aspartate Amino Transferase 17 U/L (14-36); Bilirubin,Total 0.2 mg/dL (0.2-1.3); Blood Urea Nitrogen 57 mg/dL (7-17); Calcium 9.3 mg/dL (8.4-10.2); Carbon Dioxide 34 mmol/L (22-30); Chloride 98 mmol/L (98-107); Estimated CRCL calculation 13 ml/min; Estimated Glomerular Filt Rate 14; Glucose 151 mg/dL (65-110); Potassium 5.4 mmol/L (3.4-5.0); Sodium 139 mmol/L (137-145)
[2021-11-07 10:44] LABS: Anisocytosis 1+ (NORMAL); Hypochromasia 1+ (NORMAL); Platelet Estimate Adequate (Adequate)
[2021-11-07 11:05] LABS: Lipase 362 U/L (23-300); Magnesium 2.3 mg/dL (1.6-2.3)
[2021-11-07 12:29] VITALS: BP 189/59; PULSE 67; RESP 18; O2SAT 98
[2021-11-07 13:58] VITALS: BP 170/66; PULSE 75; RESP 24; O2SAT 97
== END 2021-11-07 14:08 | disposition home or self-care (01) ==
PROVIDERS: Emergency Provider Nurse Practitioner Family; PCP Internal Medicine
DX: K92.2 Gastrointestinal hemorrhage, unspecified (principal); D64.9 Anemia, unspecified; R53.1 Weakness; R41.0 Disorientation, unspecified; J44.9 Chronic obstructive pulmonary disease, unspecified; I12.0 Hypertensive chronic kidney disease with stage 5 chronic kidney disease or end stage renal disease; E11.22 Type 2 diabetes mellitus with diabetic chronic kidney disease; N18.6 End stage renal disease; Z99.2 Dependence on renal dialysis; Z79.4 Long term (current) use of insulin; E78.5 Hyperlipidemia, unspecified; K21.9 Gastro-esophageal reflux disease without esophagitis; M19.90 Unspecified osteoarthritis, unspecified site
CPT/HCPCS: 36415; 70450; 73562; 74176; 80053; 83690; 83735; 85025; 86850; 86900; 86901; 99284

== ENCOUNTER 2022-03-17 15:26 | Inpatient (IN) | payer MEDICARE, MEDICAID, SELFPAY ==
--- NOTE | ~2022-03-17 | XR_ITS ---
EXAMINATION: XR abdomen/kub 1V DATE: 03/24/2022 17:49 INDICATION: Abdominal pain. TECHNIQUE: A supine view of the abdomen on 2 radiographs was obtained. COMPARISON: CT abdomen and pelvis 03/17/2022 FINDINGS: There are no dilated loops of bowel. There is a moderate volume of stool in the colon. Part ially visualized is internal fixation of right femur. There is a surgical clip in the stomach. There is a calcified mesenteric mass in right abdomen. IMPRESSION: 1. Nonobstructive bowel gas pattern. 2. Calcified mesenteric mass in right abdomen again seen, consistent with sclerosing mesenteritis ghada myra carcinoid. Reviewed, dictated and finalized at location A. IMPRESSION: 1. Nonobstructive bowel gas pattern. 2. Calcified mesenteric mass in right abdomen again seen, consistent with scler osing mesenteritis versus carcinoid.
--- NOTE | ~2022-03-17 | CT_ITS ---
EXAMINATION: CT abdomen pelvis wo con DATE: 03/17/2022 16:25 INDICATION: Generalized abdominal pain TECHNIQUE: Computed tomography (CT) of the abdomen and pelvis was performed without intravenous contr ast. Automated exposure control and iterative reconstruction technique were employed. The dose-length product was 853.80 mGy-cm. COMPARISON: 11/07/2021 FINDINGS: Very small bilateral posterior layering pleural effusions with mild dependent atelectasis in the bila teral lower lobes. Cardiomegaly. Atherosclerotic coronary artery calcifications. Aortic valve and darshan ral annular calcifications. Decreased attenuation the blood pool relative to myocardium consistent wi th anemia. Small linear surgical clip along the lesser curvature of the stomach. A couple hepatic cysts the larg est in the right hepatic lobe measuring 2.0 cm. Gallbladder, spleen, pancreas and bilateral adrenal g lands are normal. There is calcified atherosclerosis of the aorta and many of the other arteries incl uding multiple renal arteries at the bilateral pacheco. There are couple additional approximately 2 mm c alcifications in the parenchyma at the lower poles of both kidneys which could represent nonobstructi ng renal stones. Bilateral renal cysts, the largest measuring 2.1 cm the upper pole of the left kidne y. Bladder, uterus and bilateral adnexa are unremarkable. No bowel obstruction. There are few scatter ed colonic diverticula without adjacent inflammatory change to suggest diverticulitis. No significant change in a 1.5 x 1.4 cm calcified nodule in the right lower quadrant mesentery. No free intraperito clair gas or fluid. No pathologically enlarged abdominal or pelvic lymphadenopathy. Old intratrochante chel fracture of the proximal right femur with antegrade intramedullary james and dynamic femoral neck c ompression screw fixation. Moderate thoracolumbar spondylosis with posterior endplate osteophyte at L 3 resulting in severe central canal stenosis at this level. Bridging osteophytes at multiple levels i n the lower thoracic spine consistent with diffuse idiopathic skeletal hyperostosis (DISH). Chronic a nterior fusion at L5-S1. Stable appearance of a chronic L3 compression fracture. IMPRESSION: 1. No acute intra-abdominal/pelvic process. 2. Cardiomegaly. 3. Small bilateral pleural effusions. 4. Unchanged 1.5 x 1.4 cm calcified mass in the right lower quadrant mesentery which could represent heterotopic ossification related to fat necrosis, sequela of old granulomatous disease, fibrosing med iastinitis, treated lymphoma or carcinoid tumor. 5. Mild scattered colonic diverticulosis. Reviewed, dictated and finalized at location B. IMPRESSION: 1. No acute intra-abdominal/pelvic process. 2. Cardiomegaly. 3. Small bilateral pleural effusions. 4. Unchanged 1.5 x 1.4 cm calcified mass in the right lower quadrant mesentery which could represent heterotopic ossification related to fat necrosis, sequela of old granulomatous disease, fibrosing mediastinitis, treated lymphoma or car cinoid tumor. 5. Mild scattered colonic diverticulosis.
[2022-03-17 15:28] VITALS: BP 181/64; PULSE 89; RESP 20; TEMP 36.6; O2SAT 100
[2022-03-17 15:59] LABS: Add Urine Microscopic? YES; Appearance Urine Clear (Clear); Bilirubin Urine Negative (Negative); Blood Urine Negative (Negative); Color Urine Yellow (Yellow); Glucose Urine UA 1+ mg/dL (Negative); Ketones Urine Negative (Negative); Leukocyte Esterase Ur Negative LEU/UL (Negative); Mucus Urine Rare /lpf; Nitrate Urine Negative (Negative); Protein Urine 2+ mg/dL (Negative); RBC Urine 0-2 /hpf (0-2); Specific Grav Ur 1.015 (1.001-1.035); Urobilinogen Urine Negative mg/dL (<2.0); WBC Urine 0-3 /hpf
[2022-03-17 16:05] LABS: Basophils Percent Auto 0.5 % (0.2-1.2); Eosinophils Absolute Auto 0.2 K/mm3 (0-0.3); Eosinophils Percent Auto 2.9 % (0-4.4); Hematocrit 26.7 % (37.0-47.0); Hemoglobin 7.8 g/dL (12.0-15.0); Immature Granulocyte Absolute 0.05 K/mm3 (0.00-0.031); Immature Granulocyte Percent A 0.8 % (0-0.5); Lymphocytes Absolute Auto 0.27 K/mm3 (0.9-3.2); Lymphocytes Percent Auto 4.2 % (18.3-44.2); Mean Corpuscular HGB Conc 29.2 g/dl (32-36); Mean Corpuscular Hemoglobin 29.7 pg (26-34); Mean Corpuscular Volume 101.5 fl (80-100); Mean Platelet Volume 10.2 fl (7.4-10.4); Monocytes Absolute Auto 0.8 K/mm3 (0.1-0.6); Monocytes Percent Auto 11.7 % (2.6-8.5); Neutrophils Absolute Auto 5.2 K/mm3 (1.3-6.7); Neutrophils Percent Auto 79.9 % (45.5-73.1); Platelet Count Result 227 k/mm3 (150-375); Red Blood Count 2.63 M/mm3 (4.2-5.4); Red Cell Distribution Width 16.2 % (11.5-14.5); White Blood Count 6.5 K/mm3 (4.5-10.0)
[2022-03-17 16:13] LABS: Prothrombin Time 13.1 Seconds (11.1-14.7)
--- NOTE | 2022-03-17 16:13 | ED.GENADULT ---
HPI - General Adult General Chief complaint: Recheck/Abnormal Lab/Rx Stated complaint: abd pain, low hgb Time Seen by Provider: 03/17/22 15:29 Source: RN notes reviewed History of Present Illness HPI narrative: Patient presents emergency department from dialysis for low hemoglobin. Patient was at dialysis today which she gets dialysis on Sunday. At dialysis today she was told she had a low hemoglobin level but EMS is unable to tell us what that hemoglobin level was. Patient states she does not know what her hemoglobin level is. She states she has been having diffuse abdominal pain for the past several days described as aching in nature. There is some concern whether the patient's been having some blood in her stool as well she denies any fevers or chills chest pain shortness of breath or any other symptoms she denies any nausea or Related Data Home Medications Medication Instructions Recorded Confirmed atorvastatin 20 mg tablet 20 mg PO DAILY 06/22/21 08/09/21 clonidine HCl 0.1 mg tablet 0.1 mg PO TID 06/22/21 08/09/21 ergocalciferol (vitamin D2) 1,250 50,000 unit PO WEEKLY 06/22/21 08/09/21 mcg (50,000 unit) capsule furosemide 40 mg tablet 40 mg PO DAILY 06/22/21 08/09/21 insulin detemir U-100 100 unit/mL 15 unit subcut HS 06/22/21 08/08/21 (3 mL) subcutaneous pen (Levemir FlexTouch U-100 Insulin) isosorbide mononitrate 30 mg 30 mg PO DAILY 06/22/21 08/09/21 tablet,extended release 24 hr latanoprost 0.005 % eye drops 1 drp EACH EYE DAILY 06/22/21 08/09/21 levothyroxine 150 mcg tablet 150 mcg PO DAILY 06/22/21 08/09/21 (Synthroid) pantoprazole 40 mg tablet,delayed 40 mg PO DAILY 06/22/21 08/09/21 release spironolactone 25 mg tablet 12.5 mg PO DAILY 06/22/21 08/09/21 polysaccharide iron complex 150 mg 150 mg PO DAILY 08/08/21 08/09/21 iron capsule blood sugar diagnostic (Accu-Chek 08/09/21 08/09/21 Franny Plus test strips) Allergies Allergy/AdvReac Type Severity Reaction Status Date / Time latex Allergy Rash Verified 03/17/22 15:35 Review of Systems Review of Systems: Gen.: Denies fevers or chills ENT: Denies congestion Respiratory: Denies shortness of breath or cough CV: Denies chest pain or palpitations GI: Reports abdominal pain denies nausea, emesis or diarrhea chronic renal failure dialysis Musculoskeletal: Denies back pain or muscle pain Neuro: Denies numbness, tingling, weakness or focal weakness Skin: Denies rash Except as documented, all other systems reviewed and negative [facility] Past Medical History Medical History Chronic anemia Chronic obstructive pulmonary disease Chronic respiratory failure with hypoxia COVID-19 (06/2021) End-stage renal disease on hemodialysis Erythropoietin deficiency anemia Gastroesophageal reflux disease Glaucoma Hyperlipidemia Hypertension Insulin dependent type 2 diabetes mellitus Osteoarthritis Renal osteodystrophy Vitamin D deficiency Surgical History Surgical History Status post creation of arteriovenous fistula Left upper extremity. Family History Family History Other Diabetes mellitus Hypertension Social History Social History Social History: Surrogate decision maker: Amy Contreras, son. Code status: Full code. Smoking packs per day: 1 Smoking cigarettes per day: 20.0 Years smoked: 34 Smoking pack-years: 34.00 Smoking status: Former smoker Tobacco type: cigarettes Second hand tobacco smoke exposure: No Alcohol intake: never Substance use: never Substance use type: does not use Spiritual care concerns: No Exam Narrative: APPEARANCE: No acute distress, nontoxic, resting in bed EYES: EOMI HEENT: Normocephalic, atraumatic, OMM RESPIRATORY: No respirator
[2022-03-17 16:15] LABS: Alanine Aminotransferase 14 U/L (6-35); Albumin Level 4.6 g/dL (3.5-5.1); Alkaline Phosphatase 84 U/L (38-126); Anion Gap 5 mmol/L (8-16); Aspartate Amino Transferase 25 U/L (14-36); Bilirubin,Total 0.3 mg/dL (0.2-1.3); Blood Urea Nitrogen 17 mg/dL (7-17); Calcium 9.1 mg/dL (8.4-10.2); Carbon Dioxide 39 mmol/L (22-30); Chloride 95 mmol/L (98-107); Estimated CRCL calculation 23 ml/min; Estimated Glomerular Filt Rate 29; Glucose 107 mg/dL (65-110); Lipase 230 U/L (23-300); Potassium 5.1 mmol/L (3.4-5.0); Sodium 139 mmol/L (137-145)
[2022-03-17 16:16] LABS: Lactic Acid Reflex 0.7 mmol/L (0.7-2.0)
[2022-03-17 16:17] LABS: Hypochromasia 1+ (NORMAL); Microcytosis 1+ (NORMAL); Ovalocytes 1+ (NORMAL); Platelet Estimate Adequate (Adequate); Schistocytes None Seen (NORMAL)
[2022-03-17 17:15] VITALS: BP 199/57; PULSE 80; RESP 21; O2SAT 100
[2022-03-17] MEDS: PANTOPRAZOLE SODIUM IV 40 MG VIAL IV PUSH (17:18)
--- NOTE | 2022-03-17 17:19 | PC.NURSE ---
Dr. Paz made aware of pt high blood pressure.
[2022-03-17] MEDS: hydrALAZINE HCL 20 MG/ML VIAL 10 MG IV PUSH (17:25)
[2022-03-17 17:58] VITALS: BP 182/55; PULSE 74; RESP 16; O2SAT 100
[2022-03-17 18:00] VITALS: BP 171/58
[2022-03-17 18:22] VITALS: BMI 23.8
--- NOTE | 2022-03-17 18:35 | ADMGEN ---
This patient, Sofía Contreras, was admitted to [facility] Surg Room 302-01. Patient/family oriented to hospital policies and general routines including ID bracelet, bed and alarms, visiting hours, pain management, procedures, bathroom and other care routines, personal items, smoking policy, room service/diet, and visiting hours. Information on how to activate the Rapid Response Team has been discussed. Patient/Family are encouraged to report perceived risks to care and to ask questions if they do not understand what they are told or what they should do.
[2022-03-17 19:38] LABS: Hematocrit 24.8 % (37.0-47.0); Hemoglobin 7.4 g/dL (12.0-15.0)
[2022-03-17 21:31] VITALS: BP 188/58; PULSE 84; RESP 20; TEMP 37.2; O2SAT 99
--- NOTE | 2022-03-17 22:03 | PM.IMHP ---
H&P: HPI History of Present Illness Date/Time: 03/17/22 22:03 Chief Complaint: Abdominal pain and low hemoglobin Narrative: This is an 86-year-old female patient who was brought to the emergency room from dialysis for low hemoglobin. The patient has dialysis on Sunday and went today. Today she was told that she had a low hemoglobin level and was sent to ER. The patient had no idea what her numbers were. The patient stated that she has been having diffuse abdominal pain for the last couple days that she described as an achy feeling. The patient is a poor historian. However she denies any nausea vomiting or diarrhea. No fever chills. No shortness of breath. her H&H was 7.8 and 26.7. November of this year was 10.4 and 35.0. A repeat H&H is evening was 7.4 And 24.8. it was reported that the patient was Hemoccult positive. GI has been consulted . Her potassium was 5.1 and her creatinine 1.7. CT of the abdomen was read as the following1 . No acute intra-abdominal/pelvic process. 2. Cardiomegaly. 3. Small bilateral pleural effusions. 4. Unchanged 1.5 x 1.4 cm calcified mass in the right lower quadrant mesentery which could represent heterotopic ossification related to fat necrosis, sequela of old granulomatous disease, fibrosing mediastinitis, treated lymphoma or carcinoid tumor. 5. Mild scattered colonic diverticulosis. the patient was given Protonix IV and hydralazine for her elevated blood pressure. The patient is being admitted to observation status on the date of service of 03/17/2022. Review of Systems Review of Systems: See HPI All systems reviewed & are unremarkable except as noted in HPI and below Constitutional: Constitutional: Reports as per HPI and Reports no additional constitutional complaints Eyes: Eyes: Reports as per HPI and Reports no additional eye complaints ENT: Reports system reviewed and no additional complaints, except as documented and Reports Normal hearing present Cardiovascular: Cardiovascular: Reports no additional cardiovascular complaints Respiratory: Respiratory: Reports no additional respiratory complaints and Reports no additional respiratory complaints Gastrointestinal: Gastrointestinal: Reports as per HPI and Reports no additional gastrointestinal complaints Musculoskeletal: Musculoskeletal: Reports no additional musculoskeletal complaints Integumentary/Breasts: Skin/Breast: Reports system reviewed and no additional complaints, except as docu and Reports as per HPI Neurologic: Reports system reviewed and no additional complaints, except as documented, Reports as per HPI and Reports Normal hearing present Psychiatric: Psychiatric: Reports no additional psychiatric complaints and Reports as per HPI Endocrine: Endocrine: Reports no additional endocrine complaints Hematologic/Lymphatic: Hematologic/Lymphatic: Reports no additional hematologic/lymphatic complaints Allergic/Immunologic: Allergic/Immunologic: Reports no additional allergic/immunologic complaints PMF Past Medical History Medical History Chronic anemia Chronic obstructive pulmonary disease Chronic respiratory failure with hypoxia COVID-19 (06/2021) End-stage renal disease on hemodialysis Erythropoietin deficiency anemia Gastroesophageal reflux disease Glaucoma Hyperlipidemia Hypertension Insulin dependent type 2 diabetes mellitus Osteoarthritis Renal osteodystrophy Vitamin D deficiency Surgical History Surgical History Status post creation of arteriovenous fistula Left upper extremity. Family History Family History Other Diabetes mellitus Hypertension Social History Social History (Updated 03/18/22 @ 00:10 by Keily Holt NP) Social History: the patient tells me that she has 3 children. Initially the patient told me that she
[2022-03-18] VITALS (11 sets, daily range): BP systolic 156–191; BP diastolic 36–58; PULSE 62–76; RESP 12–18; TEMP 36.3–37; O2SAT 96–100
[2022-03-18 01:31] LABS: Hematocrit 23.9 % (37.0-47.0)
[2022-03-18 07:55] LABS: Glucose Point of Care 93 mg/dl (65-105)
[2022-03-18] MEDS: ATORVASTATIN 20 MG TABLET PO (08:54)
[2022-03-18] MEDS: SPIRONOLACTONE 12.5 MG TABLET PO (08:54)
[2022-03-18] MEDS: cloNIDine HCL 0.1 MG TABLET PO ×3 (08:54→17:01)
[2022-03-18] MEDS: FUROSEMIDE 40 MG TABLET PO (08:54)
--- NOTE | 2022-03-18 09:23 | WPDGICN ---
Assessment and Plan Assessment and plan (1) GI bleed: Code(s): K92.2 - Gastrointestinal hemorrhage, unspecified Status: Acute Assessment and Plan: the only evidence of gastrointestinal bleeding is a positive stool Hemoccult. She has of course had a drop in her hemoglobin once again. Because upper gastrointestinal bleeding source was ruled out during hospitalization earlier this year, I told her that we ought to do a colonoscopy. (2) Anemia: Code(s): D64.9 - Anemia, unspecified Status: Acute Assessment and Plan: Certainly her chronic kidney disease is a factor but she has again had a sudden drop in her hemoglobin. (3) End-stage renal disease on hemodialysis: Code(s): N18.6 - End stage renal disease; Z99.2 - Dependence on renal dialysis Status: Acute Assessment and Plan: She receives dialysis on Sunday and Sunday (4) Chronic obstructive pulmonary disease: Code(s): J44.9 - Chronic obstructive pulmonary disease, unspecified Status: Acute Assessment and Plan: Denies dyspnea this morning. P.r.n. albuterol inhaler has been ordered Plan colonoscopy will be done on Sunday. I discussed the procedure and the prep and the risks with the patient. She acknowledges understanding. She knows that she had 1 about 20 years ago. GI Consult Note Consult date/time: 03/18/22 09:23 HPI: Sofía Contreras is a 86 year old female who had been in dialysis when she was noted to have a low hemoglobin. Her hemoglobin dropped to 7.8, those usually it is more like 10.4. It actually is lower today at 7.0. She does not think that she has seen any blood her stools. They may be dark once in a while. Several months ago she was hospitalized with a hemoglobin has slightly dropped down to 5. At that time she had not seen any blood either. An EGD was done that was rather unremarkable. Because 1 cannot dropped her counts at fast from a lower gastrointestinal source without soraida blood, we is attributed that dropped to hemodialysis. She has been found to have a positive stool Hemoccult. on arrival to emergency room she stated that she had been having abdominal discomfort for few days.She denies abdominal pain at present. She thinks that her appetite is stable. She denies dysphagia or nausea Review of Systems Review of Systems: All systems reviewed & are unremarkable except as noted in HPI and below PMFSH Past Medical History Medical History Chronic anemia Chronic obstructive pulmonary disease Chronic respiratory failure with hypoxia COVID-19 (06/2021) End-stage renal disease on hemodialysis Erythropoietin deficiency anemia Gastroesophageal reflux disease Glaucoma Hyperlipidemia Hypertension Insulin dependent type 2 diabetes mellitus Osteoarthritis Renal osteodystrophy Vitamin D deficiency Surgical History Surgical History Status post creation of arteriovenous fistula Left upper extremity. Family History Family History Other Diabetes mellitus Hypertension Social History Social History Social History: the patient tells me that she has 3 children. Initially the patient told me that she lives with a son and [id number]. But the nurse reported that the patient is from a nursing facility. 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 She is . She is a former smoker.Surrogate decision maker: Amy Contreras, roman. Code status: Full code. Smoking packs per day: 1 Smoking cigarettes per day: 20.0 Years smoked: 34 Smoking pack-years: 34.00 Smoking status: Former smoker Tobacco type: cigarettes Second hand tobacco smoke exposure: No Alcohol intake: never Substance use: never Substance use type: does no
[2022-03-18 09:35] LABS: Hematocrit 23.8 % (37.0-47.0)
[2022-03-18 09:49] LABS: Alanine Aminotransferase 13 U/L (6-35); Albumin Level 3.9 g/dL (3.5-5.1); Alkaline Phosphatase 74 U/L (38-126); Anion Gap 7 mmol/L (8-16); Aspartate Amino Transferase 23 U/L (14-36); Bilirubin,Total 0.2 mg/dL (0.2-1.3); Blood Urea Nitrogen 27 mg/dL (7-17); Calcium 8.9 mg/dL (8.4-10.2); Carbon Dioxide 35 mmol/L (22-30); Chloride 96 mmol/L (98-107); Estimated CRCL calculation 17 ml/min; Estimated Glomerular Filt Rate 20; Glucose 107 mg/dL (65-110); Magnesium 2.3 mg/dL (1.6-2.3); Phosphorus 2.5 mg/dL (2.5-4.5); Potassium 4.8 mmol/L (3.4-5.0); Sodium 138 mmol/L (137-145)
[2022-03-18 11:27] LABS: Glucose Point of Care 94 mg/dl (65-105)
--- NOTE | 2022-03-18 11:50 | PC.NURSE ---
Pt has been A/Ox3, but has been confused. On admission, pt stated she wanted full code and that she lives with her son. Multiple phone calls to son, Amy, without response. When trying to obtain pt medications, night RN made aware that pt lives in [facility]. Night RN obtained facility paperwork, stating pt a DNR. This RN called to get POLST paperwork, but facility copy appears to be near black paper with no evidence of writing/typing on it. Facility states that is the only fax they have. Sent again with same result. Have left multiple VM at phone number belonging to Amy, pt son. Pt has critical H/H and has an order for 1u PRBCs. Unable to obtain consent for blood administration and potential colonoscopy with Td 03/20/22; , hot car charger, and praneeth oleary made aware. Praneeth oleary spoke with MD Rodriguez who said it is non-emergent at this time. Will continue to monitor.
--- NOTE | 2022-03-18 11:51 | PM.IMPN ---
Progress Note: A&P Assessment and Plan (1) GI bleed: Code(s): K92.2 - Gastrointestinal hemorrhage, unspecified Status: Acute Assessment and Plan: -the patient has seen Dr. Appiah in the past. She was seen by Dr. Appiah on 08/09/2021 and there was no evidence of any active bleeding. She did receive blood at that time. - transfuse as required -continue to monitor her H&H every 6 hours. -The patient does have chronic anemia due to her renal failure. -continue to monitor stool for occult blood. - continue with IV Protonix. 03/18/2022 interval history: patient is somnolent unable to provider detail history or ROS, patient is seen by GI, stool Hemoccult is positive,suspect GI bleed, patient will have colonoscopy on Sunday, patient with history of ESRD-on HD, patient also have anemia of chronic disease due to CKD, will be seen by her automotive technician and will have scheduled HD, will continue to monitor, will have PT/OT evaluate patient (2) Anemia: Code(s): D64.9 - Anemia, unspecified Status: Acute Assessment and Plan: - H&H every 6 hours. -Check stool for occult blood - chronic anemia secondary to end-stage renal disease -the patient has had transfusions in the past and she has been typed and screened today. No blood is ordered as of yet. If she should fall below 7 or become symptomatic then we would transfuse. (3) End-stage renal disease on hemodialysis: Code(s): N18.6 - End stage renal disease; Z99.2 - Dependence on renal dialysis Status: Acute Assessment and Plan: -the patient has dialysis on Sunday. -I did consult Nephrology in the event that we would have difficulty managing this patient. (4) Chronic obstructive pulmonary disease: Code(s): J44.9 - Chronic obstructive pulmonary disease, unspecified Status: Acute Assessment and Plan: - the patient does not appear to be on any inhalers or nebulizer treatments. I did order a p.r.n. albuterol inhaler. (5) Hyperlipidemia: Code(s): E78.5 - Hyperlipidemia, unspecified Status: Acute Assessment and Plan: -Continue with Lipitor. (6) Hypertension: Code(s): I10 - Essential (primary) hypertension Status: Chronic Assessment and Plan: -Continue with Lasix Continue with Aldactone. -continue with clonidine -the patient was given a dose of hydralazine in the emergency room. (7) Insulin dependent type 2 diabetes mellitus: Code(s): E11.9 - Type 2 diabetes mellitus without complications; Z79.4 - bed bug exterminator (current) use of insulin Status: Acute Subjective Date/time seen: 03/18/22 11:51 ?Abdominal pain and low hemoglobin HPI-Narrative: This is an 86-year-old female patient who was brought to the emergency room from dialysis for low hemoglobin.? The patient has dialysis on Sunday and went today.? Today she was told that she had a low hemoglobin level and was sent to ER.? The patient had no idea what her numbers were.? The patient stated that she has been having diffuse abdominal pain for the last couple days that she described as an achy feeling.? The patient is a poor historian.? However she denies any nausea vomiting or diarrhea.? No fever chills.? No shortness of breath. her H&H was 7.8 and 26.7.? Brissa of this year was 10.4 and 35.0.? A repeat H&H is evening was 7.4? And 24.8. it was reported that the patient was Hemoccult positive.? GI has been consulted? . Her potassium was 5.1 and her creatinine 1.7.? CT of the abdomen was read as the following1 . No acute intra-abdominal/pelvic process. 2. Cardiomegaly. 3. Small bilateral pleural effusions. 4. Unchanged 1.5 x 1.4 cm calcified mass in the right lower quadrant mesentery which could represent heterotopic ossification related to fat necrosis, sequela of old granulomatous disease, fibrosing mediastinitis, treated lymphoma or carcinoid tumor. 5. Mild scattered colonic diverticulosis. ?the arjun
--- NOTE | 2022-03-18 12:20 | PC.NURSE ---
Pt son, Amy, returned call. Obtained DNR request, blood consent, and probably colonoscopy with Td; all verified with Belinda Mathis, RN, monorail charger operator via telephone.
--- NOTE | 2022-03-18 13:30 | PM.CNNEP ---
Assessment and Plan Assessment and plan (1) End stage renal disease: Code(s): N18.6 - End stage renal disease Status: Chronic Assessment and Plan: s/p HD yesterdan and continue M/W/F schedule while hospitalized follow electrolytes, volume status, and clearance (2) Profound anemia: Code(s): D64.9 - Anemia, unspecified Status: Acute Assessment and Plan: recurrent issues/problem over the last year check anemia studies had EGD on last hospitalization with no acute findings Gastroenterology recommendations noted since guaiac positive - plan colonoscopy Sunday PRBC transfusion per protocol follow trend of H/H (3) Chronic respiratory failure with hypoxia: Code(s): J96.11 - Chronic respiratory failure with hypoxia Status: Chronic Assessment and Plan: on baseline oxygen requirements follow respiratory status (4) Hypertension: Code(s): I10 - Essential (primary) hypertension Status: Chronic Assessment and Plan: a bit elevated at this time resume home medications follow trend of hemodynamics (5) Diabetes: Code(s): E11.9 - Type 2 diabetes mellitus without complications Status: Chronic Assessment and Plan: follow accuchecks glycemic control Will continue to follow. History of Present Illness Reason for Consult Consult date: 03/18/22 Reason for consult: end stage renal disease Chief Complaint Chief complaint: Anemia/GI Bleed/Chronic Renal Failure w Dialysis History of Present Illness Narrative: Most of the history that I have obtained is from review of the electronic medical records as well as discussion with the ER physician earlier today as the patient is not the best historian. The patient has 86-year-old female with a past medical history as outlined below who presented to [facility] Emergency room for further evaluation of abnormal labs, specifically a low hemoglobin. The patient went to her regular scheduled outpatient dialysis treatment yesterday and completed her treatment. Her most recent hemoglobin that was done with her monthly dialysis labs demonstrate a hemoglobin of 7.4. Given his significant change in her baseline hemoglobin, she was transferred to the ER for further evaluation. Workup and evaluation emergency room demonstrated the patient to be hemodynamically stable and repeat labs demonstrated her hemoglobin at 7.8 with hematocrit of 26.7. Her chemistry was consistent with her known history of end-stage renal disease. I am unclear what her previous hemoglobin was prior to the a for mentioned 7.4 reading done by her dialysis center but several months ago her hemoglobin was 10.4 and hematocrit of 35 by labs done here in [facility]. The patient herself did not know what her hemoglobin was but did report that she has been having diffuse abdominal pain for last couple of days that she describes as a achy feeling. Given these laboratory abnormalities and the history as mentioned, she was admitted to the hospital for further evaluation and therapy Since her admission, her hemoglobin has been slowly drifting down and she has been discovered to be guaiac positive. Gastroenterology has been consulted and for further evaluation of this issue, she had a CT scan of her abdomen pelvis which only demonstrated cardiomegaly, small bilateral pleural effusions, scattered diverticulosis, and an unchanged 1.5 x 1.4 cm calcified mass in the right lower quadrant mesentery. Renal consultation was requested due to her end-stage renal disease. The patient normally does dialysis on a Sunday, Sunday, Sunday dialysis schedule under the care of Dr. Hayden Waite at [facility]. She received her scheduled dialysis treatment yesterday at her outpatient dialysis unit without any issues. The patient is somewhat familiar to me as I have taking care of her before on previous hospitalization
[2022-03-18] MEDS: SALINE LOCK FLUSH 10 ML IV PUSH ×2 (13:34→19:54)
[2022-03-18] MEDS: SODIUM CHLORIDE 0.9% IV 250 ML 30 ML IV CONT (14:55)
[2022-03-18 16:19] LABS: Glucose Point of Care 109 mg/dl (65-105)
[2022-03-18] MEDS: PANTOPRAZOLE SODIUM IV 40 MG VIAL IV PUSH (19:54)
[2022-03-18 20:33] LABS: Glucose Point of Care 133 mg/dl (65-105)
[2022-03-19] VITALS (7 sets, daily range): BP systolic 164–178; BP diastolic 52–57; PULSE 64–72; RESP 16–18; TEMP 35.5–36.6; O2SAT 95–100
[2022-03-19] MEDS: SALINE LOCK FLUSH 10 ML IV PUSH ×3 (06:31→21:22)
[2022-03-19 07:45] LABS: Glucose Point of Care 97 mg/dl (65-105)
[2022-03-19 09:39] LABS: Hematocrit 28.1 % (37.0-47.0); Hemoglobin 8.4 g/dL (12.0-15.0); Mean Corpuscular HGB Conc 29.9 g/dl (32-36); Mean Corpuscular Hemoglobin 29.7 pg (26-34); Mean Corpuscular Volume 99.3 fl (80-100); Mean Platelet Volume 10.8 fl (7.4-10.4); Platelet Count Result 213 k/mm3 (150-375); Red Blood Count 2.83 M/mm3 (4.2-5.4); Red Cell Distribution Width 17.5 % (11.5-14.5); White Blood Count 5.1 K/mm3 (4.5-10.0)
[2022-03-19] MEDS: PANTOPRAZOLE SODIUM IV 40 MG VIAL IV PUSH ×2 (09:43→21:22)
[2022-03-19] MEDS: SPIRONOLACTONE 12.5 MG TABLET PO (09:44)
[2022-03-19] MEDS: ATORVASTATIN 20 MG TABLET PO (09:44)
[2022-03-19] MEDS: cloNIDine HCL 0.1 MG TABLET PO ×3 (09:44→17:12)
[2022-03-19] MEDS: FUROSEMIDE 40 MG TABLET PO (09:44)
[2022-03-19 10:42] LABS: Anion Gap 10 mmol/L (8-16); Blood Urea Nitrogen 45 mg/dL (7-17); Calcium 8.9 mg/dL (8.4-10.2); Carbon Dioxide 31 mmol/L (22-30); Chloride 96 mmol/L (98-107); Estimated CRCL calculation 14 ml/min; Estimated Glomerular Filt Rate 16; Glucose 114 mg/dL (65-110); Magnesium 2.2 mg/dL (1.6-2.3); Phosphorus 3.1 mg/dL (2.5-4.5); Potassium 4.7 mmol/L (3.4-5.0); Sodium 137 mmol/L (137-145)
[2022-03-19 11:32] LABS: Glucose Point of Care 170 mg/dl (65-105)
--- NOTE | 2022-03-19 11:32 | PM.IMPN ---
Progress Note: A&P Assessment and Plan (1) GI bleed: Code(s): K92.2 - Gastrointestinal hemorrhage, unspecified Status: Acute Assessment and Plan: -the patient has seen Dr. Appiah in the past. She was seen by Dr. Appiah on 08/09/2021 and there was no evidence of any active bleeding. She did receive blood at that time. - transfuse as required -continue to monitor her H&H every 6 hours. -The patient does have chronic anemia due to her renal failure. -continue to monitor stool for occult blood. - continue with IV Protonix. 03/19/2022 interval history: today patient is more awake, eating her breakfast, unable to provider detail history or ROS, patient is seen by GI, stool Hemoccult is positive,suspect GI bleed, upon arrival her hgb was 7 and today 8.4 most likely hemoconcertration as patient will have dialysis, patient is seen by GI patient will have colonoscopy on Sunday, patient with history of ESRD-on HD, patient also have anemia of chronic disease due to CKD, will be seen by her drum sander offbearer and will have scheduled HD, will continue to monitor, will have PT/OT evaluate patient (2) Anemia: Code(s): D64.9 - Anemia, unspecified Status: Acute Assessment and Plan: - H&H every 6 hours. -Check stool for occult blood - chronic anemia secondary to end-stage renal disease -the patient has had transfusions in the past and she has been typed and screened today. No blood is ordered as of yet. If she should fall below 7 or become symptomatic then we would transfuse. (3) End-stage renal disease on hemodialysis: Code(s): N18.6 - End stage renal disease; Z99.2 - Dependence on renal dialysis Status: Acute Assessment and Plan: -the patient has dialysis on Sunday. -I did consult Nephrology in the event that we would have difficulty managing this patient. (4) Chronic obstructive pulmonary disease: Code(s): J44.9 - Chronic obstructive pulmonary disease, unspecified Status: Acute Assessment and Plan: - the patient does not appear to be on any inhalers or nebulizer treatments. I did order a p.r.n. albuterol inhaler. (5) Hyperlipidemia: Code(s): E78.5 - Hyperlipidemia, unspecified Status: Acute Assessment and Plan: -Continue with Lipitor. (6) Hypertension: Code(s): I10 - Essential (primary) hypertension Status: Chronic Assessment and Plan: -Continue with Lasix Continue with Aldactone. -continue with clonidine -the patient was given a dose of hydralazine in the emergency room. (7) Insulin dependent type 2 diabetes mellitus: Code(s): E11.9 - Type 2 diabetes mellitus without complications; Z79.4 - [facility] (current) use of insulin Status: Acute Subjective Date/time seen: 03/19/22 11:32 03/19/2022 interval history: today patient is more awake, eating her breakfast, unable to provider detail history or ROS, patient is seen by GI, stool Hemoccult is positive,suspect GI bleed, upon arrival her hgb was 7 and today 8.4 most likely hemoconcertration as patient will have dialysis, patient is seen by GI patient will have colonoscopy on Sunday, patient with history of ESRD-on HD, patient also have anemia of chronic disease due to CKD, will be seen by her drum sander offbearer and will have scheduled HD, will continue to monitor, will have PT/OT evaluate patient Review of Systems Review of Systems: All systems reviewed & are unremarkable except as noted in HPI and below Exam Narrative: Patient is comfortable, NAD HEENT: eyes are clear and none icteric LUNGS:Normal respiratory ABD: not distended Lower extremities: no edema SKIN: nonjaundiced Neuro: grossly intact. Objective Data Vital Signs Vital Signs: Vital Signs - 24 hr 03/18/22 13:13 03/18/22 13:34 03/18/22 13:49 Temperature 97.7 F 97.7 F 98.1 F Pulse Rate 65 72 69 Respiratory Rate 14 14 14 Blood Pressure 177/42 H 174/49 H 170/50 H
[2022-03-19] MEDS: BISACODYL 5 MG TABLET EC 20 MG PO (12:15)
--- NOTE | 2022-03-19 12:45 | PM.PNNEP ---
Progress Note: A&P Assessment and Plan (1) End stage renal disease: Code(s): N18.6 - End stage renal disease Status: Chronic Assessment and Plan: HD tomorrow and continue M/W/F schedule while hospitalized follow electrolytes, volume status, and clearance (2) Profound anemia: Code(s): D64.9 - Anemia, unspecified Status: Acute Assessment and Plan: recurrent issues/problem over the last year check anemia studies had EGD on last hospitalization with no acute findings Gastroenterology recommendations noted since guaiac positive - plan colonoscopy tomorrow PRBC transfusion per protocol follow trend of H/H (3) Chronic respiratory failure with hypoxia: Code(s): J96.11 - Chronic respiratory failure with hypoxia Status: Chronic Assessment and Plan: on baseline oxygen requirements follow respiratory status (4) Hypertension: Code(s): I10 - Essential (primary) hypertension Status: Chronic Assessment and Plan: a bit elevated at this time resume home medications follow trend of hemodynamics (5) Diabetes: Code(s): E11.9 - Type 2 diabetes mellitus without complications Status: Chronic Assessment and Plan: follow accuchecks glycemic control Will continue to follow. Subjective Date/time seen: 03/19/22 12:45 No apparent distress voiced at the the time of my visit; aware of plan for colonoscopy tomorrow; H/H appears relatively stable at this time; no apparent distress noted; no other issues/events overnight or earlier this morning. Exam Narrative: General: chronically ill appearing female in NAD Heart: normal S1 and S2; no rub Lungs: decreased at the bases Abdomen: soft, nontender, nondistended, positive bowel sounds Extremities: no cyanosis or clubbing; no edema Skin: warm and dry Objective Data Vital Signs Vital Signs: Vital Signs Temp Pulse Resp BP Pulse Ox O2 Del Method O2 Flow Rate 03/19/22 08:00 98 Nasal Cannula 3 03/19/22 05:24 36.6 C 72 18 178/57 H 95 03/19/22 04:51 100 Nasal Cannula 3 03/18/22 21:16 36.3 C L 62 16 186/54 H 100 03/18/22 17:30 36.7 C 74 14 156/40 H 100 03/18/22 16:49 36.7 C 71 14 191/58 H 98 03/18/22 15:49 36.7 C 66 14 158/38 H 96 03/18/22 15:55 36.7 C 66 14 158/38 H 96 Intake/Output Intake/Output: Intake & Output 03/16/22 03/17/22 03/18/22 03/19/22 23:59 23:59 23:59 23:59 Intake Total 1076 260 Output Total 450 300 Balance 626 -40 Meds/Results Medications: Active Medications Generic Name Dose Route Start Last Admin Trade Name Freq PRN Reason Stop Dose Admin Albuterol 2 puff 03/18/22 00:24 Albuterol Sulfate (*Sp) Aerosol 1 Puff INHALATION Q6HRT PRN Shortness Of Breath Atorvastatin Calcium 20 mg 03/18/22 09:00 03/19/22 09:44 Atorvastatin 20 Mg Tablet PO 20 mg DAILY LAUREN Administration Clonidine HCl 0.1 mg 03/18/22 09:00 03/19/22 12:15 Clonidine Hcl 0.1 Mg Tablet PO 0.1 mg TID LAUREN Administration Dextrose 12.5 gm 03/18/22 11:18 Dextrose 50% 25 Gm/50 Ml Syringe IV PUSH PRN PRN Hypoglycemia Protocol Furosemide 40 mg 03/18/22 09:00 03/19/22 09:44 Furosemide 40 Mg Tablet PO 40 mg DAILY LAUREN Administration Glucagon 1 mg 03/18/22 11:18 Glucagon For Inj 1 Mg Vial IM PRN PRN Hypoglycemia Protocol Glucose 15 gm 03/18/22 11:18 Glucose Oral Gel 15 Gm Of Glucse In 37.5 Gm Tube PO PRN PRN Hypoglycemia Protocol Dextrose 1,000 mls @ 100 mls/hr 03/18/22 11:18 Dextrose 5% 1,000 Ml IVPB PRN PRN Hypoglycemia Protocol Insulin Aspart 2 - 5 units 03/18/22 12:00 03/19/22 11:36 Insulin Aspart (*Bkc) 100 Units/Ml SUB-Q Not Given TIDWM LAUREN Protocol Pantoprazole Sodium 40 mg 03/18/22 09:00 03/19/22 09:43 Pantoprazole Sodium Iv 40 Mg Vial IV
[2022-03-19] MEDS: polyethylene glycoL 3350 238 GM BOTTLE PO (15:54)
[2022-03-19 16:29] LABS: Glucose Point of Care 126 mg/dl (65-105)
[2022-03-19 22:01] LABS: Glucose Point of Care 156 mg/dl (65-105)
[2022-03-20] VITALS (19 sets, daily range): BP systolic 149–214; BP diastolic 41–84; PULSE 59–70; RESP 14–24; TEMP 35.9–36.6; O2SAT 98–100; BMI 24.1
[2022-03-20 05:19] LABS: Hematocrit 25.7 % (37.0-47.0); Hemoglobin 7.9 g/dL (12.0-15.0); Mean Corpuscular HGB Conc 30.7 g/dl (32-36); Mean Corpuscular Hemoglobin 29.9 pg (26-34); Mean Corpuscular Volume 97.3 fl (80-100); Mean Platelet Volume 10.6 fl (7.4-10.4); Platelet Count Result 218 k/mm3 (150-375); Red Blood Count 2.64 M/mm3 (4.2-5.4); Red Cell Distribution Width 16.6 % (11.5-14.5); White Blood Count 5.3 K/mm3 (4.5-10.0)
[2022-03-20 05:31] LABS: Albumin Level 3.8 g/dL (3.5-5.1); Anion Gap 7 mmol/L (8-16); Blood Urea Nitrogen 50 mg/dL (7-17); Calcium 8.2 mg/dL (8.4-10.2); Carbon Dioxide 32 mmol/L (22-30); Chloride 92 mmol/L (98-107); Estimated CRCL calculation 14 ml/min; Estimated Glomerular Filt Rate 15; Glucose 89 mg/dL (65-110); Magnesium 2.1 mg/dL (1.6-2.3); Phosphorus 4.7 mg/dL (2.5-4.5); Potassium 4.6 mmol/L (3.4-5.0); Sodium 131 mmol/L (137-145)
[2022-03-20 05:53] LABS: Iron 32 ug/dL (37-170)
[2022-03-20] MEDS: SALINE LOCK FLUSH 10 ML IV PUSH ×3 (05:59→23:53)
[2022-03-20 06:02] LABS: Percent Iron Saturation 11 % (20-50)
[2022-03-20 06:36] LABS: Folic Acid 9.9 ng/mL (2.76->20)
[2022-03-20 08:05] LABS: Glucose Point of Care 98 mg/dl (65-105)
--- NOTE | 2022-03-20 10:12 | PM.PNNEP ---
Progress Note: A&P Assessment and Plan (1) End stage renal disease: Code(s): N18.6 - End stage renal disease Status: Chronic Assessment and Plan: HD Due today. Volume status looks okay. Potassium is 4.6 (2) Profound anemia: Code(s): D64.9 - Anemia, unspecified Status: Acute Assessment and Plan: recurrent issues/problem over the last year check anemia studies had EGD on last hospitalization with no acute findings Gastroenterology recommendations noted colonoscopy today. Hemoglobin 7.9 today, ranging in the sevens this hospital stay. (3) Chronic respiratory failure with hypoxia: Code(s): J96.11 - Chronic respiratory failure with hypoxia Status: Chronic Assessment and Plan: on baseline oxygen requirements follow respiratory status (4) Hypertension: Code(s): I10 - Essential (primary) hypertension Status: Chronic Assessment and Plan: Sofía his systolic is running between 150 and 190. most commonly in the 150s and 160s. She is on clonidine furosemide spironolactone. Will add amlodipine. (5) Diabetes: Code(s): E11.9 - Type 2 diabetes mellitus without complications Status: Chronic Assessment and Plan: On Accu-Cheks and sliding-scale insulin. Management per hospitalist. Subjective Date/time seen: 03/20/22 10:12 Interval history: Patient is alert. She feels okay. No shortness of breath or swelling. Review of Systems Cardiovascular: Cardiovascular: Reports no additional cardiovascular complaints Respiratory: Respiratory: Reports no additional respiratory complaints Gastrointestinal: Gastrointestinal: Reports no additional gastrointestinal complaints Genitourinary: Genitourinary: Reports no additional female genitourinary complaints Exam Narrative: WDWN in NAD skin no rash head ncat lungs clear cor reg no rub abd BS+ nontender and soft ext no edema. Objective Data Vital Signs Vital Signs: Vital Signs - 24 hr 03/19/22 13:41 03/19/22 22:00 03/19/22 21:22 Temperature 35.5 C L 36.4 C L Pulse Rate 64 64 Respiratory Rate 18 16 Blood Pressure 164/52 H 170/57 H Pulse Oximetry 100 100 100 Oxygen Delivery Nasal Cannula Oxygen Flow Rate 3 03/19/22 20:40 03/20/22 06:00 Temperature 36.6 C Pulse Rate 64 Respiratory Rate 14 Blood Pressure 165/65 H Pulse Oximetry 97 100 Oxygen Delivery Nasal Cannula Oxygen Flow Rate 3 Intake/Output Intake/Output: Intake & Output 03/17/22 03/18/22 03/19/22 03/20/22 23:59 23:59 23:59 23:59 Intake Total 1076 1560 720 Output Total 450 750 Balance 626 810 720 Meds/Results Medications: Active Medications Generic Name Dose Route Start Last Admin Trade Name Freq PRN Reason Stop Dose Admin Albuterol 2 puff 03/18/22 00:24 Albuterol Sulfate (*Sp) Aerosol 1 Puff INHALATION Q6HRT PRN Shortness Of Breath Atorvastatin Calcium 20 mg 03/18/22 09:00 03/19/22 09:44 Atorvastatin 20 Mg Tablet PO 20 mg DAILY LAUREN Administration Clonidine HCl 0.1 mg 03/18/22 09:00 03/19/22 17:12 Clonidine Hcl 0.1 Mg Tablet PO 0.1 mg TID LAUREN Administration Dextrose 12.5 gm 03/18/22 11:18 Dextrose 50% 25 Gm/50 Ml Syringe IV PUSH PRN PRN Hypoglycemia Protocol Epoetin Samuel-epbx 10,000 units 03/20/22 20:45 Epoetin Samuel-Epbx 10,000 Units/Ml Vial IV PUSH 03/20/22 20:46 ONCE ONE Furosemide 40 mg 03/18/22 09:00 03/19/22 09:44 Furosemide 40 Mg Tablet PO 40 mg DAILY LAUREN Administration Glucagon 1 mg 03/18/22 11:18 Glucagon For Inj 1 Mg Vial IM PRN PRN Hypoglycemia Protocol Glucose 15 gm 03/18/22 11:18 Glucose Oral Gel 15 Gm Of Glucse In 37.5 Gm Tube PO PRN PRN Hypoglycemia Protocol Dextrose 1,000 mls @ 100 mls/hr 03/18/22 11:18 Dextrose 5% 1,000 Ml IVPB PRN PRN Hypoglycemia Protocol Alb
[2022-03-20] MEDS: SODIUM CHLORIDE 0.9% IV 1,000 ML 999 ML IV CONT (12:10)
[2022-03-20] MEDS: EPOETIN ALFA-EPBX 10,000 UNITS/ML VIAL 10000 UNITS IV PUSH (12:10)
--- NOTE | 2022-03-20 12:57 | WPDANESEPPF ---
Anes - Initial Pre Proc Eval Procedure: Operation Date: 03/20/22 15:30 Proposed Procedures p Colonoscopy - Hans Appiah MD Date/Time: 03/20/22 12:57 Surgeon: Arash Dangelo MD Pre Op Diagnosis: Anemia/GI Bleed/Chronic Renal Failure w Dialysis Patient Data Age: 86 Gender: F Height: 1.75 m Weight: 74.2 kg Last Vital Signs Temp 36.6 C 03/20/22 09:40 Pulse 69 03/20/22 10:30 Resp 18 03/20/22 09:40 BP 181/69 H 03/20/22 10:30 Pulse Ox 100 03/20/22 06:00 O2 Del Method Nasal Cannula 03/19/22 21:22 O2 Flow Rate 4 03/20/22 09:30 Allergies Allergy/AdvReac Type Severity Reaction Status Date / Time latex Allergy Rash Verified 03/23/22 07:54 Home Medications Medication Instructions Recorded Confirmed Type atorvastatin 20 mg tablet 20 mg PO DAILY 06/22/21 03/17/22 History clonidine HCl 0.1 mg tablet 0.1 mg PO TID 06/22/21 03/17/22 History ergocalciferol (vitamin D2) 1,250 50,000 unit PO WEEKLY 06/22/21 03/18/22 History mcg (50,000 unit) capsule furosemide 40 mg tablet 40 mg PO DAILY 06/22/21 03/17/22 History latanoprost 0.005 % eye drops 1 drp EACH EYE DAILY 06/22/21 03/18/22 History pantoprazole 40 mg tablet,delayed 40 mg PO DAILY 06/22/21 03/17/22 History release spironolactone 25 mg tablet 12.5 mg PO DAILY 06/22/21 03/17/22 History Acidophilus 1 cap PO BID 03/17/22 03/17/22 History amlodipine 5 mg tablet (Norvasc) 10 mg PO QAM 30 days #60 tabs 03/24/22 Rx Laboratory Tests 03/19/22 03/19/22 03/20/22 16:27 21:28 05:06 WBC 5.3 K/mm3 K/mm3 (4.5-10.0) RBC 2.64 M/mm3 L M/mm3 (4.2-5.4) Hgb 7.9 g/dL L g/dL (12.0-15.0) Hct 25.7 % L % (37.0-47.0) MCV 97.3 fl fl (80-100) MCH 29.9 pg pg (26-34) MCHC 30.7 g/dl L g/dl (32-36) RDW 16.6 % H % (11.5-14.5) Plt Count 218 k/mm3 k/mm3 (150-375) MPV 10.6 fl H fl (7.4-10.4) Sodium Potassium Chloride Carbon Dioxide Anion Gap BUN Creatinine Estim Creat Clear Calc Estimated GFR Glucose POC Capillary Glucose 126 mg/dl H mg/dl 156 mg/dl H mg/dl (65-105) (65-105) Calcium Phosphorus Magnesium Iron TIBC % Saturation Ferritin Albumin Vitamin B12 Folate Hep Bs Antigen Hep Bs Antibody 03/20/22 03/20/22 03/20/22 05:06 05:06 05:06 WBC RBC Hgb Hct MCV MCH MCHC RDW Plt Count MPV Sodium 131 mmol/L L mmol/L (137-145) Potassium 4.6 mmol/L mmol/L (3.4-5.0) Chloride 92 mmol/L L mmol/L (98-107) Carbon Dioxide 32 mmol/L H mmol/L (22-30) Anion Gap 7 mmol/L L mmol/L (8-16) BUN 50 mg/dL H mg/dL (7-17) Creatinine 2.90 mg/dL H mg/dL (0.7-1.0) Estim Creat Clear Calc 14 ml/min ml/min Estimated GFR 15 L (59 - ) Glucose 89 mg/dL mg/dL (65-110) POC Capillary Glucose Calcium 8.2 mg/dL L mg/dL (8.4-10.2) Phosphorus 4.7 mg/dL H mg/dL (2.5-4.5) Magnesium 2.1 mg/dL mg/dL (1.6-2.3) Iron 32 ug/dL L ug/dL (37-170) TIBC 292 ug/dL ug/dL (261-462) % Saturation 11 % L % (20-50) Ferritin 86.00 ng/mL ng/mL (11.1-264) Albumin 3.8 g/dL g/dL (3.5-5.1) Vitamin B12 415.0 pg/mL pg/mL (239-931) Folate 9.9 ng/mL ng/mL (2.76->20) Hep Bs Antigen Pending Hep Bs Antibody Pending 03/20/22 07:36 WBC RBC Hgb Hct MCV MCH MCHC RDW Plt C
[2022-03-20 12:58] LABS: Hepatitis B Surface Antigen Negative (Negative)
--- NOTE | 2022-03-20 13:10 | PM.IMPN ---
Progress Note: A&P Assessment and Plan (1) GI bleed: Code(s): K92.2 - Gastrointestinal hemorrhage, unspecified Status: Acute Assessment and Plan: -the patient has seen Dr. Appiah in the past. She was seen by Dr. Appiah on 08/09/2021 and there was no evidence of any active bleeding. She did receive blood at that time. - transfuse as required -continue to monitor her H&H every 6 hours. -The patient does have chronic anemia due to her renal failure. -continue to monitor stool for occult blood. - continue with IV Protonix. 03/20/2022 interval history: today patient is more awake, unable to provider detail history or ROS, patient is seen by GI, stool Hemoccult is positive,suspect GI bleed, upon arrival her hgb was 7, on 03/19 it was 8.4 and today 7.9 most likely conderning for GI bleed, , patient is seen by GI patient Scheduled for colonoscopy later today, patient with history of ESRD-on HD, patient also have anemia of chronic disease due to CKD, will be seen by her senior credit officer and will have scheduled HD, will continue to monitor, will have PT/OT evaluate patient (2) Anemia: Code(s): D64.9 - Anemia, unspecified Status: Acute Assessment and Plan: - H&H every 6 hours. -Check stool for occult blood - chronic anemia secondary to end-stage renal disease -the patient has had transfusions in the past and she has been typed and screened today. No blood is ordered as of yet. If she should fall below 7 or become symptomatic then we would transfuse. (3) End-stage renal disease on hemodialysis: Code(s): N18.6 - End stage renal disease; Z99.2 - Dependence on renal dialysis Status: Acute Assessment and Plan: -the patient has dialysis on Sunday. -I did consult Nephrology in the event that we would have difficulty managing this patient. (4) Chronic obstructive pulmonary disease: Code(s): J44.9 - Chronic obstructive pulmonary disease, unspecified Status: Acute Assessment and Plan: - the patient does not appear to be on any inhalers or nebulizer treatments. I did order a p.r.n. albuterol inhaler. (5) Hyperlipidemia: Code(s): E78.5 - Hyperlipidemia, unspecified Status: Acute Assessment and Plan: -Continue with Lipitor. (6) Hypertension: Code(s): I10 - Essential (primary) hypertension Status: Chronic Assessment and Plan: -Continue with Lasix Continue with Aldactone. -continue with clonidine -the patient was given a dose of hydralazine in the emergency room. (7) Insulin dependent type 2 diabetes mellitus: Code(s): E11.9 - Type 2 diabetes mellitus without complications; Z79.4 - snf (current) use of insulin Status: Acute Subjective Date/time seen: 03/20/22 13:10 03/20/2022 interval history: today patient is more awake, unable to provider detail history or ROS, patient is seen by GI, stool Hemoccult is positive,suspect GI bleed, upon arrival her hgb was 7, on 03/19 it was 8.4 and today 7.9 most likely conderning for GI bleed, , patient is seen by GI patient Scheduled for colonoscopy later today, patient with history of ESRD-on HD, patient also have anemia of chronic disease due to CKD, will be seen by her senior credit officer and will have scheduled HD, will continue to monitor, will have PT/OT evaluate patient Review of Systems Review of Systems: All systems reviewed & are unremarkable except as noted in HPI and below Exam Narrative: Patient is comfortable, NAD HEENT: eyes are clear and none icteric LUNGS:Normal respiratory ABD: not distended Lower extremities: no edema SKIN: nonjaundiced Neuro: grossly intact. Objective Data Vital Signs Vital Signs: Vital Signs - 24 hr 03/19/22 13:41 03/19/22 22:00 03/19/22 21:22 Temperature 96 F L 97.5 F L Pulse Rate 64 64 Respiratory Rate 18 16 Blood Pressure 164/52 H 170/57 H Pulse Oximetry 100 100 100 Oxygen Delivery N
[2022-03-20 13:15] LABS: Hepatitis B Surface Anti Res Negative
[2022-03-20] MEDS: SODIUM CHLORIDE 0.9% IV 500 ML 10 ML IV CONT (14:28)
[2022-03-20 14:33] LABS: Glucose Point of Care 94 mg/dl (65-105)
--- NOTE | 2022-03-20 14:48 | WPDANESEPPF ---
Anes - Initial Pre Proc Eval Procedure: Operation Date: 03/20/22 15:30 Proposed Procedures p Colonoscopy - Hans Appiah MD Date/Time: 03/20/22 14:48 Surgeon: Arash Dangelo MD Pre Op Diagnosis: Anemia/GI Bleed/Chronic Renal Failure w Dialysis Patient Data Age: 86 Gender: F Height: 1.75 m Weight: 74.2 kg Last Vital Signs Temp 36.2 C L 03/20/22 14:28 Pulse 70 03/20/22 14:28 Resp 18 03/20/22 14:28 BP 153/61 H 03/20/22 14:28 Pulse Ox 100 03/20/22 14:28 O2 Del Method Room Air 03/20/22 14:28 O2 Flow Rate 4 03/20/22 09:30 Allergies Allergy/AdvReac Type Severity Reaction Status Date / Time latex Allergy Rash Verified 03/20/22 14:24 Home Medications Medication Instructions Recorded Confirmed Type atorvastatin 20 mg tablet 20 mg PO DAILY 06/22/21 03/17/22 History clonidine HCl 0.1 mg tablet 0.1 mg PO TID 06/22/21 03/17/22 History ergocalciferol (vitamin D2) 1,250 50,000 unit PO WEEKLY 06/22/21 03/18/22 History mcg (50,000 unit) capsule furosemide 40 mg tablet 40 mg PO DAILY 06/22/21 03/17/22 History latanoprost 0.005 % eye drops 1 drp EACH EYE DAILY 06/22/21 03/18/22 History pantoprazole 40 mg tablet,delayed 40 mg PO DAILY 06/22/21 03/17/22 History release spironolactone 25 mg tablet 12.5 mg PO DAILY 06/22/21 03/17/22 History Acidophilus 1 cap PO BID 03/17/22 03/17/22 History Laboratory Tests 03/19/22 03/19/22 03/20/22 16:27 21:28 05:06 WBC 5.3 K/mm3 K/mm3 (4.5-10.0) RBC 2.64 M/mm3 L M/mm3 (4.2-5.4) Hgb 7.9 g/dL L g/dL (12.0-15.0) Hct 25.7 % L % (37.0-47.0) MCV 97.3 fl fl (80-100) MCH 29.9 pg pg (26-34) MCHC 30.7 g/dl L g/dl (32-36) RDW 16.6 % H % (11.5-14.5) Plt Count 218 k/mm3 k/mm3 (150-375) MPV 10.6 fl H fl (7.4-10.4) Sodium Potassium Chloride Carbon Dioxide Anion Gap BUN Creatinine Estim Creat Clear Calc Estimated GFR Glucose POC Capillary Glucose 126 mg/dl H mg/dl 156 mg/dl H mg/dl (65-105) (65-105) Calcium Phosphorus Magnesium Iron TIBC % Saturation Ferritin Albumin Vitamin B12 Folate Hep Bs Antigen Hep Bs Antibody 03/20/22 03/20/22 03/20/22 05:06 05:06 05:06 WBC RBC Hgb Hct MCV MCH MCHC RDW Plt Count MPV Sodium 131 mmol/L L mmol/L (137-145) Potassium 4.6 mmol/L mmol/L (3.4-5.0) Chloride 92 mmol/L L mmol/L (98-107) Carbon Dioxide 32 mmol/L H mmol/L (22-30) Anion Gap 7 mmol/L L mmol/L (8-16) BUN 50 mg/dL H mg/dL (7-17) Creatinine 2.90 mg/dL H mg/dL (0.7-1.0) Estim Creat Clear Calc 14 ml/min ml/min Estimated GFR 15 L (59 - ) Glucose 89 mg/dL mg/dL (65-110) POC Capillary Glucose Calcium 8.2 mg/dL L mg/dL (8.4-10.2) Phosphorus 4.7 mg/dL H mg/dL (2.5-4.5) Magnesium 2.1 mg/dL mg/dL (1.6-2.3) Iron 32 ug/dL L ug/dL (37-170) TIBC 292 ug/dL ug/dL (261-462) % Saturation 11 % L % (20-50) Ferritin 86.00 ng/mL ng/mL (11.1-264) Albumin 3.8 g/dL g/dL (3.5-5.1) Vitamin B12 415.0 pg/mL pg/mL (239-931) Folate 9.9 ng/mL ng/mL (2.76->20) Hep Bs Antigen Negative (Negative) Hep Bs Antibody Negative 03/20/22 03/20/22 07:36 14:30 WBC RBC Hgb Hct MCV MCH MCHC RDW Plt Count MPV
[2022-03-20 15:45] LABS: Glucose Point of Care 103 mg/dl (65-105)
--- NOTE | 2022-03-20 16:04 | P.PNCROSS_ITS ---
Event Note Event Note Event Note: a is on dialysis. Blood pressure is a bit high so we are taking extra fluid o ff. We will shoot for about 3L. She was seen at 10:45 a.m.
[2022-03-20] MEDS: ATORVASTATIN 20 MG TABLET PO (16:42)
[2022-03-20] MEDS: FUROSEMIDE 40 MG TABLET PO (16:42)
[2022-03-20] MEDS: amLODIPine BESYLATE 5 MG TABLET PO (16:43)
[2022-03-20] MEDS: SPIRONOLACTONE 12.5 MG TABLET PO (16:43)
[2022-03-20] MEDS: cloNIDine HCL 0.1 MG TABLET PO (16:46)
[2022-03-20 16:47] LABS: Glucose Point of Care 92 mg/dl (65-105)
--- NOTE | 2022-03-20 17:08 | PC.NURSE ---
Pt went to dialysis this AM approx 0815. Unable to give PO medications. Received phone call from GI lab who wanted to take pt and requested no medications to be given. Pt BP elevated back to floor, gave pt 1700 meds, the AM meds that were 24 hr meds only. Did not give protonix as 2100 dose due soon.
[2022-03-20] MEDS: PANTOPRAZOLE SODIUM IV 40 MG VIAL IV PUSH (20:05)
[2022-03-20 23:44] LABS: Glucose Point of Care 174 mg/dl (65-105)
[2022-03-21 03:55] LABS: Hematocrit 25.9 % (37.0-47.0); Hemoglobin 7.8 g/dL (12.0-15.0); Mean Corpuscular HGB Conc 30.1 g/dl (32-36); Mean Corpuscular Volume 99.6 fl (80-100); Mean Platelet Volume 10.3 fl (7.4-10.4); Platelet Count Result 216 k/mm3 (150-375); Red Cell Distribution Width 16.2 % (11.5-14.5); White Blood Count 4.9 K/mm3 (4.5-10.0)
[2022-03-21 04:14] LABS: Albumin Level 3.7 g/dL (3.5-5.1); Anion Gap 9 mmol/L (8-16); Blood Urea Nitrogen 31 mg/dL (7-17); Calcium 8.3 mg/dL (8.4-10.2); Carbon Dioxide 30 mmol/L (22-30); Chloride 100 mmol/L (98-107); Estimated CRCL calculation 15 ml/min; Estimated Glomerular Filt Rate 18; Glucose 89 mg/dL (65-110); Magnesium 2.1 mg/dL (1.6-2.3); Potassium 4.4 mmol/L (3.4-5.0); Sodium 139 mmol/L (137-145)
[2022-03-21 06:00] VITALS: BP 186/45; PULSE 68; RESP 16; TEMP 36.3; O2SAT 100
[2022-03-21] MEDS: SALINE LOCK FLUSH 10 ML IV PUSH ×3 (06:50→22:15)
--- NOTE | 2022-03-21 07:06 | WPDGIPROGNO ---
Progress Note: A&P Assessment and Plan (1) Acute on chronic anemia: Code(s): D64.9 - Anemia, unspecified Status: Acute Assessment and Plan: after transfusion her hemoglobin is 7.8 MCV remains on the high side, 99. No clear evidence of the GI bleeding. stool Hemoccult was negative in August. We have reorder another 1. Certainly her chronic kidney disease is a factor but she some mild drops suddenly when seen in dialysis we could consider capsule endoscopy study of small bowel after discharge. (2) Chronic kidney disease with end stage renal failure on dialysis: Code(s): N18.6 - End stage renal disease; Z99.2 - Dependence on renal dialysis Status: Acute Assessment and Plan: BUN is 31, creatinine 2.6. The ratio does not point to an upper gastrointestinal bleeding. 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 Plan I will schedule her for capsule endoscopy study to be done as an outpatient. I do not recall whether she has seen Hematology in the past. If not that might be an option as well Subjective Date/time seen: 03/21/22 07:06 Discussed with her the findings of her colonoscopy, showing only diverticular disease. No evidence of gastrointestinal bleeding. Her hemoglobin is stable at 7.8. MCV remains on high side at 99. She is tolerating her renal diet. Exam Const: General: no acute distress, alert and tired appearing Orientation/consciousness: patient oriented x3 Resp: Auscultation: clear to auscultation bilaterally Cardio: Rhythm: regular rhythm GI: GI Palp: Yes Soft to palpation, Yes Tenderness to palpation present (GI) ( slight tenderness right lower quadrant), No Guarding due to palpation present (GI) and Yes No hepatosplenomegaly present Auscultation: normal bowel sounds Skin: General skin exam: pallor Neuro: General: patient oriented x3 Objective Data Vital Signs Vital Signs: Vital Signs - 24 hr 03/20/22 09:40 03/20/22 09:30 03/20/22 09:50 Temperature 36.6 C Pulse Rate 68 64 Respiratory Rate 18 Blood Pressure 214/81 H 202/79 H Pulse Oximetry Oxygen Delivery Oxygen Flow Rate 4 03/20/22 10:00 03/20/22 10:30 03/20/22 08:00 Temperature Pulse Rate 66 69 Respiratory Rate Blood Pressure 201/84 H 181/69 H Pulse Oximetry 98 Oxygen Delivery Nasal Cannula Oxygen Flow Rate 3 03/20/22 11:00 03/20/22 11:30 03/20/22 12:00 Temperature Pulse Rate 63 66 65 Respiratory Rate Blood Pressure 155/56 H 158/69 H 149/60 H Pulse Oximetry Oxygen Delivery Oxygen Flow Rate 03/20/22 12:29 03/20/22 12:35 03/20/22 14:28 Temperature 36.6 C 36.2 C L Pulse Rate 63 63 70 Respiratory Rate 20 18 Blood Pressure 176/46 H 156/46 H 153/61 H Pulse Oximetry 100 Oxygen Delivery Room Air Oxygen Flow Rate 03/20/22 15:39 03/20/22 15:49 03/20/22 15:59 Temperature Pulse Rate 67 69 67 Respiratory Rate 21 H 20 24 H Blood Pressure 150/50 H 163/55 H 179/66 H Pulse Oximetry 100 98 99 Oxygen Delivery Nasal Cannula Nasal Cannula Nasal Cannula Oxygen Flow Rate 3 3 3 03/20/22 16:30 03/20/22 20:19 03/20/22 22:00 Temperature 35.9 C L 36.2 C L Pulse Rate 59 L 63 Respiratory Rate 16 18 Blood Pressure 179/41 H 173/43 H Pulse Oximetry 100 98 100 Oxygen Delivery Nasal Cannula Oxygen Flow Rate 3 03/20/22 20:45 03/21/22 06:00 Temperature 36.3 C L Pulse Rate 68 Respiratory Rate 16 Blood Pressure 186/45 H Pulse Oximetry 98 100 Oxygen Delivery Nasal Cannula Oxygen Flow Rate 3 In
[2022-03-21 08:27] LABS: Glucose Point of Care 78 mg/dl (65-105)
--- NOTE | 2022-03-21 08:52 | P.PNNP_ITS ---
Progress Note: A&P Assessment and Plan (1) End stage renal disease: Code(s): N18.6 - End stage renal disease Status: Chronic Assessment and Plan: * she finished her dialysis yesterday without incident. She is due for dialysis tomorrow. * Volume status looks okay. * Potassium is 4.4 (2) Profound anemia: Code(s): D64.9 - Anemia, unspecified Status: Acute Assessment and Plan: * recurrent issues/problem over the last year * Iron levels were low. * Will give iron. * B12 and folate are okay. * had EGD on last hospitalization with no acute findings * Gastroenterology recommendations noted * colonoscopy showed diverticulosis with no evidence of bleeding. * Hemoglobin up and down between 7 and 8.5. (3) Chronic respiratory failure with hypoxia: Code(s): J96.11 - Chronic respiratory failure with hypoxia Status: Chronic Assessment and Plan: * on baseline oxygen requirements * follow respiratory status (4) Hypertension: Code(s): I10 - Essential (primary) hypertension Status: Chronic Assessment and Plan: * Sofía his systolic is running between 150 and 190. * She is on clonidine furosemide spironolactone , and now amlodipine. She got her 1st dose yesterday. * Will wait 1 more day before adjusting amlodipine. * Will try getting more fluid off in dialysis tomorrow as well. (5) Diabetes: Code(s): E11.9 - Type 2 diabetes mellitus without complications Status: Chronic Assessment and Plan: * On Accu-Cheks and sliding-scale insulin. Management per hospitalist. Subjective Date/time seen: 03/21/22 08:53 Interval history: sitting up at the side of the bed. She feels better than she did on admission. The rest of her dialysis went well yesterday.. Exam Narrative: WDWN in NAD skin no rash head ncat lungs clear bilaterally cor reg no rub or gallop abd BS+ nontender and soft ext no edema. Objective Data Vital Signs Vital Signs: Vital Signs - 24 hr 03/20/22 09:40 03/20/22 09:30 03/20/22 09:50 Temperature 36.6 C Pulse Rate 68 64 Respiratory Rate 18 Blood Pressure 214/81 H 202/79 H Pulse Oximetry Oxygen Delivery Oxygen Flow Rate 4 03/20/22 10:00 03/20/22 10:30 03/20/22 11:00 Temperature Pulse Rate 66 69 63 Respiratory Rate Blood Pressure 201/84 H 181/69 H 155/56 H Pulse Oximetry Oxygen Delivery Oxygen Flow Rate 03/20/22 11:30 03/20/22 12:00 03/20/22 12:29 Temperature Pulse Rate 66 65 63 Respiratory Rate Blood Pressure 158/69 H 149/60 H 176/46 H Pulse Oximetry Oxygen Delivery Oxygen Flow Rate 03/20/22 12:35 03/20/22 14:28 03/20/22 15:39 Temperature 36.6 C 36.2 C L Pulse Rate 63 70 67 Respiratory Rate 20 18 21 H Blood Pressure 156/46 H 153/61 H 150/50 H Pulse Oximetry 100 100 Oxygen Delivery Room Air Nasal Cannula Oxygen Flow Rate 3 03/20/22 15:49 03/20/22 15:59 03/20/22 16:30 Temperature 35.9 C L Pulse Rate 69 67 59 L Respiratory Rate 20 24 H 16
--- NOTE | 2022-03-21 08:52 | PM.PNNEP ---
Progress Note: A&P Assessment and Plan (1) End stage renal disease: Code(s): N18.6 - End stage renal disease Status: Chronic Assessment and Plan: she finished her dialysis yesterday without incident. She is due for dialysis tomorrow. Volume status looks okay. Potassium is 4.4 (2) Profound anemia: Code(s): D64.9 - Anemia, unspecified Status: Acute Assessment and Plan: recurrent issues/problem over the last year Iron levels were low. Will give iron. B12 and folate are okay. had EGD on last hospitalization with no acute findings Gastroenterology recommendations noted colonoscopy showed diverticulosis with no evidence of bleeding. Hemoglobin up and down between 7 and 8.5. (3) Chronic respiratory failure with hypoxia: Code(s): J96.11 - Chronic respiratory failure with hypoxia Status: Chronic Assessment and Plan: on baseline oxygen requirements follow respiratory status (4) Hypertension: Code(s): I10 - Essential (primary) hypertension Status: Chronic Assessment and Plan: Sofía his systolic is running between 150 and 190. She is on clonidine furosemide spironolactone , and now amlodipine. She got her 1st dose yesterday. Will wait 1 more day before adjusting amlodipine. Will try getting more fluid off in dialysis tomorrow as well. (5) Diabetes: Code(s): E11.9 - Type 2 diabetes mellitus without complications Status: Chronic Assessment and Plan: On Accu-Cheks and sliding-scale insulin. Management per hospitalist. Subjective Date/time seen: 03/21/22 08:53 Interval history: sitting up at the side of the bed. She feels better than she did on admission. The rest of her dialysis went well yesterday.. Exam Narrative: WDWN in NAD skin no rash head ncat lungs clear bilaterally cor reg no rub or gallop abd BS+ nontender and soft ext no edema. Objective Data Vital Signs Vital Signs: Vital Signs - 24 hr 03/20/22 09:40 03/20/22 09:30 03/20/22 09:50 Temperature 36.6 C Pulse Rate 68 64 Respiratory Rate 18 Blood Pressure 214/81 H 202/79 H Pulse Oximetry Oxygen Delivery Oxygen Flow Rate 4 03/20/22 10:00 03/20/22 10:30 03/20/22 11:00 Temperature Pulse Rate 66 69 63 Respiratory Rate Blood Pressure 201/84 H 181/69 H 155/56 H Pulse Oximetry Oxygen Delivery Oxygen Flow Rate 03/20/22 11:30 03/20/22 12:00 03/20/22 12:29 Temperature Pulse Rate 66 65 63 Respiratory Rate Blood Pressure 158/69 H 149/60 H 176/46 H Pulse Oximetry Oxygen Delivery Oxygen Flow Rate 03/20/22 12:35 03/20/22 14:28 03/20/22 15:39 Temperature 36.6 C 36.2 C L Pulse Rate 63 70 67 Respiratory Rate 20 18 21 H Blood Pressure 156/46 H 153/61 H 150/50 H Pulse Oximetry 100 100 Oxygen Delivery Room Air Nasal Cannula Oxygen Flow Rate 3 03/20/22 15:49 03/20/22 15:59 03/20/22 16:30 Temperature 35.9 C L Pulse Rate 69 67 59 L Respiratory Rate 20 24 H 16 Blood Pressure 163/55 H 179/66 H 179/41 H Pulse Oximetry 98 99 100 Oxygen Delivery Nasal Cannula Nasal Cannula Oxygen Flow Rate 3 3 03/20/22 20:19 03/20/22 22:00 03/20/22 20:45 Temperature 36.2 C L Pulse Rate 63 Respiratory Rate 18 Blood Pressure 173/43 H Pulse Oximetry 98 100 98 Oxygen Delivery Nasal Cannula Nasal Cannula Oxygen Flow Rate 3 3 03/21/22 06:00 Temperature 36.3 C L Pulse Rate 68 Respiratory Rate 16 Blood Pressure 186/45 H Pulse Oximetry 100 Oxygen Delivery Oxygen Flow Rate Intake/Output Intake/Output: Intake & Output 03/18/22 03/19/22 03/20/22 03/21/22 23:59 23:59 23:59 23:59 Intake Total 1076 1560 1010 Output Total 392 778 2935 Balance 620 278 -8077 Meds/Results Medications: Active Medications Generic Name Dose Route Start Last Admin Trade Name Freq PRN Reason Stop Dose Admin Albuterol 2 puff 03/18/22
[2022-03-21 10:00] VITALS: O2SAT 99
[2022-03-21] MEDS: IRON SUCROSE COMPLEX 200 MG in SODIUM CHLORIDE 0.9% IV 50 ML 120 MG IVPB (10:07)
--- NOTE | 2022-03-21 10:28 | WPDANESPN ---
Anes - Prog Note Post-Op Date/Time: 03/21/22 09:30 Cardiovascular status: normal Respiratory status: normal Airway patency: baseline Mental status: baseline Post-Op hydration status: normal Vital Signs: Last Vital Signs Temp 97.4 F L 03/21/22 06:00 Pulse 68 03/21/22 06:00 Resp 16 03/21/22 06:00 BP 186/45 H 03/21/22 06:00 Pulse Ox 100 03/21/22 06:00 O2 Del Method Nasal Cannula 03/20/22 20:45 O2 Flow Rate 3 03/20/22 20:45 Pain Score (VAS): 0 I/O: Intake & Output 03/20/22 03/21/22 03/21/22 23:59 07:59 15:59 Intake Total 240 240 Output Total 150 Balance 90 240 Laboratory Tests 03/21/22 03:38 03/21/22 03:38 03/20/22 03/20/22 03/20/22 05:06 14:30 15:43 WBC RBC Hgb Hct MCV MCH MCHC RDW Plt Count MPV Sodium Potassium Chloride Carbon Dioxide Anion Gap BUN Creatinine Estim Creat Clear Calc Estimated GFR Glucose POC Capillary Glucose 94 103 Calcium Phosphorus Magnesium Albumin Hep Bs Antigen Negative Hep Bs Antibody Negative 03/20/22 03/20/22 03/21/22 16:32 20:12 03:38 WBC 4.9 RBC 2.60 L Hgb 7.8 L Hct 25.9 L MCV 99.6 MCH 30.0 MCHC 30.1 L RDW 16.2 H Plt Count 216 MPV 10.3 Sodium Potassium Chloride Carbon Dioxide Anion Gap BUN Creatinine Estim Creat Clear Calc Estimated GFR Glucose POC Capillary Glucose 92 174 H Calcium Phosphorus Magnesium Albumin Hep Bs Antigen Hep Bs Antibody 03/21/22 03/21/22 03:38 08:06 WBC RBC Hgb Hct MCV MCH MCHC RDW Plt Count MPV Sodium 139 Potassium 4.4 Chloride 100 Carbon Dioxide 30 Anion Gap 9 BUN 31 H D Creatinine 2.60 H Estim Creat Clear Calc 15 Estimated GFR 18 L Glucose 89 POC Capillary Glucose 78 Calcium 8.3 L Phosphorus 4.0 Magnesium 2.1 Albumin 3.7 Hep Bs Antigen Hep Bs Antibody Post-procedural complaints: none Patient Feedback: Patient satisfied with anesthetic care.
[2022-03-21] MEDS: cloNIDine HCL 0.1 MG TABLET PO ×3 (11:03→20:08)
[2022-03-21] MEDS: PANTOPRAZOLE 40 MG TABLET PO (11:03)
[2022-03-21] MEDS: amLODIPine BESYLATE 5 MG TABLET PO (11:03)
[2022-03-21] MEDS: ATORVASTATIN 20 MG TABLET PO (11:03)
[2022-03-21] MEDS: FUROSEMIDE 40 MG TABLET PO (11:03)
[2022-03-21] MEDS: SPIRONOLACTONE 12.5 MG TABLET PO (11:03)
[2022-03-21 11:45] LABS: Glucose Point of Care 184 mg/dl (65-105)
[2022-03-21 14:00] VITALS: BP 188/50; PULSE 72; RESP 20; TEMP 36.5; O2SAT 95
--- NOTE | 2022-03-21 14:39 | PM.IMPN ---
Progress Note: A&P Assessment and Plan (1) GI bleed: Code(s): K92.2 - Gastrointestinal hemorrhage, unspecified Status: Acute Assessment and Plan: -the patient has seen Dr. Appiah in the past. She was seen by Dr. Appiah on 08/09/2021 and there was no evidence of any active bleeding. She did receive blood at that time. - transfuse as required -continue to monitor her H&H every 6 hours. -The patient does have chronic anemia due to her renal failure. -continue to monitor stool for occult blood. - continue with IV Protonix. 03/21/2022 interval history: today patient is more awake, unable to provider detail history or ROS, patient is seen by GI, stool Hemoccult is positive,suspect GI bleed, upon arrival her hgb was 7, on 03/19 it was 8.4, 03/20 it was 7.9 and today is 7.8 most likely concerning for GI bleed, patient was seen by GI patient had colonoscopy on 03/20 it showed diverticulosis without any source of bleeding, patient remains clinically stable, patient with history of ESRD-on HD, patient also have anemia of chronic disease due to CKD, patient is seen by her financing analyst and will have scheduled HD tomorrow, patient iron is low and and patient been given iron, will continue to monitor, will have PT/OT evaluate patient (2) Anemia: Code(s): D64.9 - Anemia, unspecified Status: Acute Assessment and Plan: - H&H every 6 hours. -Check stool for occult blood - chronic anemia secondary to end-stage renal disease -the patient has had transfusions in the past and she has been typed and screened today. No blood is ordered as of yet. If she should fall below 7 or become symptomatic then we would transfuse. (3) End-stage renal disease on hemodialysis: Code(s): N18.6 - End stage renal disease; Z99.2 - Dependence on renal dialysis Status: Acute Assessment and Plan: -the patient has dialysis on Sunday. -I did consult Nephrology in the event that we would have difficulty managing this patient. (4) Chronic obstructive pulmonary disease: Code(s): J44.9 - Chronic obstructive pulmonary disease, unspecified Status: Acute Assessment and Plan: - the patient does not appear to be on any inhalers or nebulizer treatments. I did order a p.r.n. albuterol inhaler. (5) Hyperlipidemia: Code(s): E78.5 - Hyperlipidemia, unspecified Status: Acute Assessment and Plan: -Continue with Lipitor. (6) Hypertension: Code(s): I10 - Essential (primary) hypertension Status: Chronic Assessment and Plan: -Continue with Lasix Continue with Aldactone. -continue with clonidine -the patient was given a dose of hydralazine in the emergency room. (7) Insulin dependent type 2 diabetes mellitus: Code(s): E11.9 - Type 2 diabetes mellitus without complications; Z79.4 - assisted (current) use of insulin Status: Acute Subjective Date/time seen: 03/21/22 14:39 03/21/2022 interval history: today patient is more awake, unable to provider detail history or ROS, patient is seen by GI, stool Hemoccult is positive,suspect GI bleed, upon arrival her hgb was 7, on 03/19 it was 8.4, 03/20 it was 7.9 and today is 7.8 most likely concerning for GI bleed, patient was seen by GI patient had colonoscopy on 03/20 it showed diverticulosis without any source of bleeding, patient remains clinically stable, patient with history of ESRD-on HD, patient also have anemia of chronic disease due to CKD, patient is seen by her financing analyst and will have scheduled HD tomorrow, patient iron is low and and patient been given iron, will continue to monitor, will have PT/OT evaluate patient Review of Systems Review of Systems: All systems reviewed & are unremarkable except as noted in HPI and below Exam Narrative: Patient is comfortable, NAD HEENT: eyes are clear and none icteric LUNGS:Normal respiratory ABD: not distended Lower extr
[2022-03-21 16:45] LABS: Glucose Point of Care 118 mg/dl (65-105)
[2022-03-21 21:00] VITALS: PULSE 60; RESP 20; O2SAT 100
[2022-03-21 22:00] VITALS: BP 176/47; PULSE 60; RESP 20; TEMP 36.2; O2SAT 100
[2022-03-21] MEDS: hydrALAZINE HCL 20 MG/ML VIAL 10 MG IV PUSH (22:40)
[2022-03-21 23:23] LABS: Glucose Point of Care 102 mg/dl (65-105)
[2022-03-22] VITALS (16 sets, daily range): BP systolic 128–181; BP diastolic 41–98; PULSE 61–82; RESP 16–20; TEMP 36.1–37.7; O2SAT 99–100
[2022-03-22] MEDS: SALINE LOCK FLUSH 10 ML IV PUSH ×3 (05:28→20:55)
[2022-03-22 05:43] LABS: Hemoglobin 7.7 g/dL (12.0-15.0); Mean Corpuscular HGB Conc 29.6 g/dl (32-36); Mean Corpuscular Hemoglobin 29.4 pg (26-34); Mean Corpuscular Volume 99.2 fl (80-100); Platelet Count Result 204 k/mm3 (150-375); Red Blood Count 2.62 M/mm3 (4.2-5.4); Red Cell Distribution Width 15.6 % (11.5-14.5); White Blood Count 5.1 K/mm3 (4.5-10.0)
[2022-03-22 05:54] LABS: Albumin Level 3.7 g/dL (3.5-5.1); Anion Gap 9 mmol/L (8-16); Blood Urea Nitrogen 36 mg/dL (7-17); Calcium 8.4 mg/dL (8.4-10.2); Carbon Dioxide 30 mmol/L (22-30); Chloride 96 mmol/L (98-107); Estimated CRCL calculation 14 ml/min; Estimated Glomerular Filt Rate 16; Glucose 105 mg/dL (65-110); Magnesium 2.2 mg/dL (1.6-2.3); Phosphorus 3.5 mg/dL (2.5-4.5); Potassium 4.9 mmol/L (3.4-5.0); Sodium 135 mmol/L (137-145)
[2022-03-22] MEDS: hydrALAZINE HCL 20 MG/ML VIAL 10 MG IV PUSH (06:25)
--- NOTE | 2022-03-22 07:05 | WPDGIPROGNO ---
Subjective Date/time seen: 03/22/22 07:05 Sleepy this morning. She has no complaints. She thinks she is having dialysis today. Denies any bowel movements in last 24 hours. Her last Hemoccult was negative. We are going to try to obtain 1 this admission. Objective Data Vital Signs Vital Signs: Vital Signs - 24 hr 03/21/22 10:00 03/21/22 14:00 03/21/22 22:00 Temperature 36.5 C 36.2 C L Pulse Rate 72 60 Respiratory Rate 20 20 Blood Pressure 188/50 H 176/47 H Pulse Oximetry 99 95 100 Oxygen Delivery Nasal Cannula Oxygen Flow Rate 3 03/21/22 21:00 03/22/22 06:00 Temperature 36.1 C L Pulse Rate 60 63 Respiratory Rate 20 18 Blood Pressure 180/45 H Pulse Oximetry 100 100 Oxygen Delivery Nasal Cannula Oxygen Flow Rate 2 Intake/Output Intake/Output: Intake & Output 03/19/22 03/20/22 03/21/22 03/22/22 23:59 23:59 23:59 23:59 Intake Total 1560 1010 1340 200 Output Total 750 2565 Balance 810 -1555 1340 200 Meds/Results Medications: Active Medications Generic Name Dose Route Start Last Admin Trade Name Freq PRN Reason Stop Dose Admin Albuterol 2 puff 03/18/22 00:24 Albuterol Sulfate (*Sp) Aerosol 1 Puff INHALATION Q6HRT PRN Shortness Of Breath Amlodipine Besylate 10 mg 03/22/22 09:00 Amlodipine Besylate 5 Mg Tablet PO QAM LAUREN Atorvastatin Calcium 20 mg 03/18/22 09:00 03/21/22 11:03 Atorvastatin 20 Mg Tablet PO 20 mg DAILY LAUREN Administration Clonidine HCl 0.1 mg 03/18/22 09:00 03/21/22 20:08 Clonidine Hcl 0.1 Mg Tablet PO 0.1 mg TID LAUREN Administration Dextrose 12.5 gm 03/18/22 11:18 Dextrose 50% 25 Gm/50 Ml Syringe IV PUSH PRN PRN Hypoglycemia Protocol Furosemide 40 mg 03/18/22 09:00 03/21/22 11:03 Furosemide 40 Mg Tablet PO 40 mg DAILY LAUREN Administration Glucagon 1 mg 03/18/22 11:18 Glucagon For Inj 1 Mg Vial IM PRN PRN Hypoglycemia Protocol Glucose 15 gm 03/18/22 11:18 Glucose Oral Gel 15 Gm Of Glucse In 37.5 Gm Tube PO PRN PRN Hypoglycemia Protocol Hydralazine HCl 10 mg 03/21/22 09:01 03/22/22 06:25 Hydralazine Hcl 20 Mg/Ml Vial IV PUSH 10 mg Q8H PRN Administration Blood Pressure - above 170 Dextrose 1,000 mls @ 100 mls/hr 03/18/22 11:18 Dextrose 5% 1,000 Ml IVPB PRN PRN Hypoglycemia Protocol Iron Sucrose 200 mg/ Sodium 60 mls @ 120 mls/hr 03/21/22 09:00 03/21/22 10:07 Chloride IVPB 03/25/22 09:01 120 mls/hr QAM LAURNE Administration Albumin Human 50 mls @ 999 mls/hr 03/21/22 08:59 Albutein IVPB 03/22/22 08:58 Q10M PRN HYPOTENSION Insulin Aspart 2 - 5 units 03/18/22 12:00 03/21/22 17:46 Insulin Aspart (*Bkc) 100 Units/Ml SUB-Q Not Given TIDWM LAUREN Protocol Pantoprazole Sodium 40 mg 03/21/22 09:00 03/21/22 11:03 Pantoprazole 40 Mg Tablet PO 40 mg QAM LAUREN Administration Sodium Chloride 10 ml 03/18/22 14:00 03/22/22 05:28 Saline Lock Flush IV PUSH 10 ml Q8HR LAUREN Administration Sodium Chloride 10 ml 03/18/22 11:48 Saline Lock Flush IV PUSH PRN PRN Flush Sodium Chloride 20 ml 03/18/22 11:48 Saline Lock Flush IV PUSH PRN PRN after blood draws Spironolactone 12.5 mg 03/18/22 09:00 03/21/22 11:03 Spironolactone 12.5 Mg Tablet PO 12.5 mg DAILY LAUREN Administration Radiology Results: ITS Impressions Abdomen/Pelvis CT 03/17/22 16:38 IMPRESSION: 1. No acute intra-abdominal/pelvic process. 2. Cardiomegaly. 3. Small bilateral pleural effusions. 4. Unchanged 1.5 x 1.4 cm calcified mass in the right lower quadrant mesentery which could represent heterotopic ossification related to fat necrosis, sequela of old granulomatous disease, fibrosing mediastinitis, treated lymphoma or carcinoid tumor. 5. Mild scattered colonic diverticulosis. Labs Labs: Laboratory Results - last 24 hr 03/21/22 03/21/22 03/21/22
--- NOTE | 2022-03-22 07:31 | P.PNNP_ITS ---
Progress Note: A&P Assessment and Plan (1) End stage renal disease: Code(s): N18.6 - End stage renal disease Status: Chronic Assessment and Plan: * She is due for dialysis today. * Volume status looks okay. * Potassium is 4.9 (2) Profound anemia: Code(s): D64.9 - Anemia, unspecified Status: Acute Assessment and Plan: * recurrent issues/problem over the last year * Iron levels were low. * She is getting iron. * B12 and folate are okay. * had EGD on last hospitalization with no acute findings * Gastroenterology recommendations noted * colonoscopy showed diverticulosis with no evidence of bleeding. * Hemoglobin up and down between 7 and 8.5. (3) Chronic respiratory failure with hypoxia: Code(s): J96.11 - Chronic respiratory failure with hypoxia Status: Chronic Assessment and Plan: * on baseline oxygen requirements * follow respiratory status (4) Hypertension: Code(s): I10 - Essential (primary) hypertension Status: Chronic Assessment and Plan: * Sofía his systolic is running between 150 and 190. * She is on clonidine furosemide spironolactone , and now amlodipine. She got her 1st dose yesterday. * The Systolic is still a bit high. * Will see how she does with dialysis and fluid removal. (5) Diabetes: Code(s): E11.9 - Type 2 diabetes mellitus without complications Status: Chronic Assessment and Plan: * On Accu-Cheks and sliding-scale insulin. Management per hospitalist. Subjective Date/time seen: 03/22/22 07:30 Interval history: Lying comfortably in bed. She feels better. Exam Narrative: WDWN in NAD skin no rash or sq nodules head ncat lungs clear bilaterally cor reg no rub or gallop abd BS+ nontender and soft ext no edema. Objective Data Vital Signs Vital Signs: Vital Signs - 24 hr 03/21/22 22:00 03/21/22 21:00 03/22/22 06:00 Temperature 36.2 C L 36.1 C L Pulse Rate 60 60 63 Respiratory Rate 20 20 18 Blood Pressure 176/47 H 180/45 H Pulse Oximetry 100 100 100 Oxygen Delivery Nasal Cannula Oxygen Flow Rate 2 03/22/22 08:03 03/22/22 08:36 03/22/22 08:00 Temperature Pulse Rate Respiratory Rate Blood Pressure Pulse Oximetry 100 Oxygen Delivery Nasal Cannula Nasal Cannula Nasal Cannula Oxygen Flow Rate 3 3 2 03/22/22 09:08 03/22/22 10:06 03/22/22 09:25 Temperature 36.3 C L Pulse Rate 71 68 Respiratory Rate 16 Blood Pressure 175/70 H 176/56 H Pulse Oximetry Oxygen Delivery Oxygen Flow Rate 3 03/22/22 09:30 03/22/22 10:00 03/22/22 10:30 Temperature Pulse Rate 68 82 70 Respiratory Rate Blood Pressure 178/59 H 171/98 H 178/51 H Pulse Oximetry Oxygen Delivery Oxygen Flow Rate 03/22/22 11:00 03/22/22 11:30 03/22/22 12:00 Temperature Pulse Rate 70 64 68 Respiratory Rate Blood Pressure 159/48 H 138/59 L 163/51 H Pulse Oximetry Oxygen Delivery Oxygen Flow Rate
--- NOTE | 2022-03-22 07:31 | PM.PNNEP ---
Progress Note: A&P Assessment and Plan (1) End stage renal disease: Code(s): N18.6 - End stage renal disease Status: Chronic Assessment and Plan: She is due for dialysis today. Volume status looks okay. Potassium is 4.9 (2) Profound anemia: Code(s): D64.9 - Anemia, unspecified Status: Acute Assessment and Plan: recurrent issues/problem over the last year Iron levels were low. She is getting iron. B12 and folate are okay. had EGD on last hospitalization with no acute findings Gastroenterology recommendations noted colonoscopy showed diverticulosis with no evidence of bleeding. Hemoglobin up and down between 7 and 8.5. (3) Chronic respiratory failure with hypoxia: Code(s): J96.11 - Chronic respiratory failure with hypoxia Status: Chronic Assessment and Plan: on baseline oxygen requirements follow respiratory status (4) Hypertension: Code(s): I10 - Essential (primary) hypertension Status: Chronic Assessment and Plan: Sofía his systolic is running between 150 and 190. She is on clonidine furosemide spironolactone , and now amlodipine. She got her 1st dose yesterday. The Systolic is still a bit high. Will see how she does with dialysis and fluid removal. (5) Diabetes: Code(s): E11.9 - Type 2 diabetes mellitus without complications Status: Chronic Assessment and Plan: On Accu-Cheks and sliding-scale insulin. Management per hospitalist. Subjective Date/time seen: 03/22/22 07:30 Interval history: Lying comfortably in bed. She feels better. Exam Narrative: WDWN in NAD skin no rash or sq nodules head ncat lungs clear bilaterally cor reg no rub or gallop abd BS+ nontender and soft ext no edema. Objective Data Vital Signs Vital Signs: Vital Signs - 24 hr 03/21/22 22:00 03/21/22 21:00 03/22/22 06:00 Temperature 36.2 C L 36.1 C L Pulse Rate 60 60 63 Respiratory Rate 20 20 18 Blood Pressure 176/47 H 180/45 H Pulse Oximetry 100 100 100 Oxygen Delivery Nasal Cannula Oxygen Flow Rate 2 03/22/22 08:03 03/22/22 08:36 03/22/22 08:00 Temperature Pulse Rate Respiratory Rate Blood Pressure Pulse Oximetry 100 Oxygen Delivery Nasal Cannula Nasal Cannula Nasal Cannula Oxygen Flow Rate 3 3 2 03/22/22 09:08 03/22/22 10:06 03/22/22 09:25 Temperature 36.3 C L Pulse Rate 71 68 Respiratory Rate 16 Blood Pressure 175/70 H 176/56 H Pulse Oximetry Oxygen Delivery Oxygen Flow Rate 3 03/22/22 09:30 03/22/22 10:00 03/22/22 10:30 Temperature Pulse Rate 68 82 70 Respiratory Rate Blood Pressure 178/59 H 171/98 H 178/51 H Pulse Oximetry Oxygen Delivery Oxygen Flow Rate 03/22/22 11:00 03/22/22 11:30 03/22/22 12:00 Temperature Pulse Rate 70 64 68 Respiratory Rate Blood Pressure 159/48 H 138/59 L 163/51 H Pulse Oximetry Oxygen Delivery Oxygen Flow Rate 03/22/22 12:30 03/22/22 12:44 03/22/22 13:05 Temperature 36.6 C Pulse Rate 64 69 68 Respiratory Rate 18 Blood Pressure 128/46 L 139/44 L 140/72 Pulse Oximetry Oxygen Delivery Oxygen Flow Rate 03/22/22 14:00 Temperature 36.9 C Pulse Rate 68 Respiratory Rate 20 Blood Pressure 181/55 H Pulse Oximetry 99 Oxygen Delivery Oxygen Flow Rate Intake/Output Intake/Output: Intake & Output 03/19/22 03/20/22 03/21/22 03/22/22 23:59 23:59 23:59 23:59 Intake Total 1560 1010 1400 560 Output Total 750 2565 2500 Balance 810 -0635 1400 -1940 Meds/Results Medications: Active Medications Generic Name Dose Route Start Last Admin Trade Name Freq PRN Reason Stop Dose Admin Albuterol 2 puff 03/18/22 00:24 Albuterol Sulfate (*Sp) Aerosol 1 Puff INHALATION Q6HRT PRN Shortness Of Breath Amlodipine Besylate 10 mg 03/22/22 09:00 03/22/22 13:42 Amlodipine Besylate 5 Mg Tablet PO
[2022-03-22 07:43] LABS: Glucose Point of Care 93 mg/dl (65-105)
[2022-03-22] MEDS: PANTOPRAZOLE 40 MG TABLET PO (08:23)
[2022-03-22] MEDS: ATORVASTATIN 20 MG TABLET PO (08:23)
[2022-03-22] MEDS: IRON SUCROSE COMPLEX 200 MG in SODIUM CHLORIDE 0.9% IV 50 ML 120 MG IVPB (08:33)
--- NOTE | 2022-03-22 11:03 | PM.IMPN ---
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 Colonoscopy on 03/20/22 showed a few diverticula without perforation or abscess without bleeding. Was given 1 u PRBC on 03/18/22 with h/h remaining stable since transfusion. Patient seen by hematology 08/11/21 for anemia and steak tenderizer machine checking haptoglobin, LDH, methylmalonic acid and follow up outpatient for consideration for possible bone marrow biopsy pending other results. Anemia thought to be multifactorial with CKD but could not rule out MDS. Appears clinically stable. Unclear if the patient followed up with Hematology outpatient. (2) Anemia: Code(s): D64.9 - Anemia, unspecified Status: Acute Assessment and Plan: -Trend hemoglobin daily -Appreciate recommendations from Nephrology (3) End-stage renal disease on hemodialysis: Code(s): N18.6 - End stage renal disease; Z99.2 - Dependence on renal dialysis Status: Acute Assessment and Plan: Has MWF hemodialysis. Appreciate recommendations from Nephrology. (4) Chronic obstructive pulmonary disease: Code(s): J44.9 - Chronic obstructive pulmonary disease, unspecified Status: Acute Assessment and Plan: Controlled. Continue PRN inhaler. (5) Hyperlipidemia: Code(s): E78.5 - Hyperlipidemia, unspecified Status: Acute Assessment and Plan: -Continue with Lipitor. (6) Hypertension: Code(s): I10 - Essential (primary) hypertension Status: Chronic Assessment and Plan: Still hypertensive. -Continue with Lasix -Continue spironlactone -continue with clonidine -Amlodipine 5 mg started 03/20/22 Will monitor. (7) Insulin dependent type 2 diabetes mellitus: Code(s): E11.9 - Type 2 diabetes mellitus without complications; Z79.4 - longterm (current) use of insulin Status: Acute Assessment and Plan: Diet controlled. Last a1c 4.9 in August of 2021. Subjective Date/time seen: 03/22/22 18:03 Patient says she has abdominal pain but denies melena or hematochezia. Patient seen and examined in hemodialysis. Review of Systems Gastrointestinal: Gastrointestinal: Reports abdominal pain, Denies melena and Denies hematochezia Exam Narrative: GENERAL: NAD, cooperative HEENT: Normocephalic, atraumatic, anicteric NECK:Supple CV: regular rate RESP: CTAB, Normal work of breathing. Abdomen: Soft, non-distended, EXTREMITIES: Warm and well perfused, no clubbing, cyanosis. SKIN: warm, dry and intact. NEURO: CN 2-12 grossly intact. Objective Data Vital Signs Vital Signs: Vital Signs - 24 hr 03/21/22 22:00 03/21/22 21:00 03/22/22 06:00 Temperature 36.2 C L 36.1 C L Pulse Rate 60 60 63 Respiratory Rate 20 20 18 Blood Pressure 176/47 H 180/45 H Pulse Oximetry 100 100 100 Oxygen Delivery Nasal Cannula Oxygen Flow Rate 2 03/22/22 08:03 03/22/22 08:36 03/22/22 08:00 Temperature Pulse Rate Respiratory Rate Blood Pressure Pulse Oximetry 100 Oxygen Delivery Nasal Cannula Nasal Cannula Nasal Cannula Oxygen Flow Rate 3 3 2 03/22/22 09:08 03/22/22 10:06 03/22/22 09:25 Temperature 36.3 C L Pulse Rate 71 68 Respiratory Rate 16 Blood Pressure 175/70 H 176/56 H Pulse Oximetry Oxygen Delivery Oxygen Flow Rate 3 03/22/22 09:30 03/22/22 10:00 03/22/22 10:30 Temperature Pulse Rate 68 82 70 Respiratory Rate Blood Pressure 178/59 H 171/98 H 178/51 H Pulse Oximetry Oxygen Delivery Oxygen Flow Rate 03/22/22 11:00 03/22/22 11:30 03/22/22 12:00 Temperature Pulse Rate 70 64 68 Respiratory Rate Blood Pressure 159/48 H 138/59 L 163/51 H Pulse Oximetry Oxyg
[2022-03-22 11:22] LABS: Glucose Point of Care 122 mg/dl (65-105)
[2022-03-22] MEDS: EPOETIN ALFA-EPBX 10,000 UNITS/ML VIAL 10000 UNITS IV PUSH (11:49)
[2022-03-22] MEDS: SODIUM CHLORIDE 0.9% IV 1,000 ML 999 ML IV CONT (11:50)
[2022-03-22] MEDS: SPIRONOLACTONE 12.5 MG TABLET PO (13:41)
[2022-03-22] MEDS: amLODIPine BESYLATE 5 MG TABLET 10 MG PO (13:42)
[2022-03-22] MEDS: cloNIDine HCL 0.1 MG TABLET PO ×2 (13:42→16:44)
[2022-03-22] MEDS: FUROSEMIDE 40 MG TABLET PO (13:42)
[2022-03-22 16:24] LABS: Glucose Point of Care 206 mg/dl (65-105)
[2022-03-22] MEDS: INSULIN ASPART (*BKC) 100 UNITS/ML SUB-Q (16:45)
[2022-03-22 19:26] LABS: Glucose Point of Care 122 mg/dl (65-105)
[2022-03-23] MEDS: SALINE LOCK FLUSH 10 ML IV PUSH ×3 (05:11→22:02)
[2022-03-23 05:17] LABS: Hematocrit 28.2 % (37.0-47.0); Hemoglobin 8.4 g/dL (12.0-15.0); Mean Corpuscular HGB Conc 29.8 g/dl (32-36); Mean Corpuscular Hemoglobin 29.7 pg (26-34); Mean Corpuscular Volume 99.6 fl (80-100); Mean Platelet Volume 10.5 fl (7.4-10.4); Platelet Count Result 260 k/mm3 (150-375); Red Blood Count 2.83 M/mm3 (4.2-5.4); Red Cell Distribution Width 15.7 % (11.5-14.5); White Blood Count 7.7 K/mm3 (4.5-10.0)
[2022-03-23 05:33] VITALS: BP 175/62; PULSE 64; RESP 16; TEMP 36.6; O2SAT 100
[2022-03-23 05:35] LABS: Albumin Level 4.2 g/dL (3.5-5.1); Anion Gap 9 mmol/L (8-16); Blood Urea Nitrogen 27 mg/dL (7-17); Calcium 8.4 mg/dL (8.4-10.2); Carbon Dioxide 35 mmol/L (22-30); Chloride 94 mmol/L (98-107); Estimated CRCL calculation 15 ml/min; Estimated Glomerular Filt Rate 17; Glucose 102 mg/dL (65-110); Magnesium 2.2 mg/dL (1.6-2.3); Phosphorus 2.8 mg/dL (2.5-4.5); Potassium 4.2 mmol/L (3.4-5.0); Sodium 138 mmol/L (137-145)
--- NOTE | 2022-03-23 07:23 | P.PNNP_ITS ---
Progress Note: A&P Assessment and Plan (1) End stage renal disease: Assessment and Plan: * she had dialysis yesterday. It went well. * Volume status looks okay. * Potassium is 4.2 (2) Profound anemia: Assessment and Plan: * recurrent issues/problem over the last year * She is on EPO and iron. * had EGD on last hospitalization with no acute findings * Gastroenterology recommendations noted * colonoscopy showed diverticulosis with no evidence of bleeding. * Hemoglobin up and down between 7 and 8.5. (3) Chronic respiratory failure with hypoxia: Assessment and Plan: * on baseline oxygen requirements * follow respiratory status (4) Hypertension: Assessment and Plan: * Sofía his systolic is running between 150 and 190. * I talked with her dialysis unit and her blood pressure commonly runs this high * She is on clonidine furosemide spironolactone , and now amlodipine. she has had 2 days in a row of amlodipine 10. * Will follow the blood pressure for the day. If still high tomorrow change to nifedipine. * Will see how she does with dialysis and fluid removal. (5) Diabetes: Assessment and Plan: * On Accu-Cheks and sliding-scale insulin. Management per hospitalist. Subjective Date/time seen: 03/23/22 07:23 Interval history: Lying comfortably in bed. She feels better. pt had dialysis yesterday . It went smoothly she says. Exam Narrative: WDWN in NAD skin no rash or sq nodules head ncat Lungs clear to auscultation cor reg no rub or gallop abd BS+ nontender and soft ext no edema or cyanosis. Objective Data Vital Signs Vital Signs: Vital Signs - 24 hr 03/22/22 08:03 03/22/22 08:36 03/22/22 08:00 Temperature Pulse Rate Respiratory Rate Blood Pressure Pulse Oximetry 100 Oxygen Delivery Nasal Cannula Nasal Cannula Nasal Cannula Oxygen Flow Rate 3 3 2 03/22/22 09:08 03/22/22 10:06 03/22/22 09:25 Temperature 36.3 C L Pulse Rate 71 68 Respiratory Rate 16 Blood Pressure 175/70 H 176/56 H Pulse Oximetry Oxygen Delivery Oxygen Flow Rate 3 03/22/22 09:30 03/22/22 10:00 03/22/22 10:30 Temperature Pulse Rate 68 82 70 Respiratory Rate Blood Pressure 178/59 H 171/98 H 178/51 H Pulse Oximetry Oxygen Delivery Oxygen Flow Rate 03/22/22 11:00 03/22/22 11:30 03/22/22 12:00 Temperature Pulse Rate 70 64 68 Respiratory Rate Blood Pressure 159/48 H 138/59 L 163/51 H Pulse Oximetry Oxygen Delivery Oxygen Flow Rate 03/22/22 12:30 03/22/22 12:44 03/22/22 13:05 Temperature 36.6 C Pulse Rate 64 69 68 Respiratory Rate 18 Blood Pressure 128/46 L 139/44 L 140/72 Pulse Oximetry Oxygen Delivery Oxygen Flow Rate 03/22/22 14:00 03/22/22 18:33 03/22/22 21:46 Temperature 36.9 C 37.7 C H 36.9 C Pulse Rate 68 71 61 Respiratory Rate 20 20 17 Blood Pressure 181/55 H 156/55 H 150/41 H Pulse Oximetry 99 100 100 Oxygen De
--- NOTE | 2022-03-23 07:23 | PM.PNNEP ---
Progress Note: A&P Assessment and Plan (1) End stage renal disease: Assessment and Plan: she had dialysis yesterday. It went well. Volume status looks okay. Potassium is 4.2 (2) Profound anemia: Assessment and Plan: recurrent issues/problem over the last year She is on EPO and iron. had EGD on last hospitalization with no acute findings Gastroenterology recommendations noted colonoscopy showed diverticulosis with no evidence of bleeding. Hemoglobin up and down between 7 and 8.5. (3) Chronic respiratory failure with hypoxia: Assessment and Plan: on baseline oxygen requirements follow respiratory status (4) Hypertension: Assessment and Plan: Soífa his systolic is running between 150 and 190. I talked with her dialysis unit and her blood pressure commonly runs this high She is on clonidine furosemide spironolactone , and now amlodipine. she has had 2 days in a row of amlodipine 10. Will follow the blood pressure for the day. If still high tomorrow change to nifedipine. Will see how she does with dialysis and fluid removal. (5) Diabetes: Assessment and Plan: On Accu-Cheks and sliding-scale insulin. Management per hospitalist. Subjective Date/time seen: 03/23/22 07:23 Interval history: Lying comfortably in bed. She feels better. pt had dialysis yesterday . It went smoothly she says. Exam Narrative: WDWN in NAD skin no rash or sq nodules head ncat Lungs clear to auscultation cor reg no rub or gallop abd BS+ nontender and soft ext no edema or cyanosis. Objective Data Vital Signs Vital Signs: Vital Signs - 24 hr 03/22/22 08:03 03/22/22 08:36 03/22/22 08:00 Temperature Pulse Rate Respiratory Rate Blood Pressure Pulse Oximetry 100 Oxygen Delivery Nasal Cannula Nasal Cannula Nasal Cannula Oxygen Flow Rate 3 3 2 03/22/22 09:08 03/22/22 10:06 03/22/22 09:25 Temperature 36.3 C L Pulse Rate 71 68 Respiratory Rate 16 Blood Pressure 175/70 H 176/56 H Pulse Oximetry Oxygen Delivery Oxygen Flow Rate 3 03/22/22 09:30 03/22/22 10:00 03/22/22 10:30 Temperature Pulse Rate 68 82 70 Respiratory Rate Blood Pressure 178/59 H 171/98 H 178/51 H Pulse Oximetry Oxygen Delivery Oxygen Flow Rate 03/22/22 11:00 03/22/22 11:30 03/22/22 12:00 Temperature Pulse Rate 70 64 68 Respiratory Rate Blood Pressure 159/48 H 138/59 L 163/51 H Pulse Oximetry Oxygen Delivery Oxygen Flow Rate 03/22/22 12:30 03/22/22 12:44 03/22/22 13:05 Temperature 36.6 C Pulse Rate 64 69 68 Respiratory Rate 18 Blood Pressure 128/46 L 139/44 L 140/72 Pulse Oximetry Oxygen Delivery Oxygen Flow Rate 03/22/22 14:00 03/22/22 18:33 03/22/22 21:46 Temperature 36.9 C 37.7 C H 36.9 C Pulse Rate 68 71 61 Respiratory Rate 20 20 17 Blood Pressure 181/55 H 156/55 H 150/41 H Pulse Oximetry 99 100 100 Oxygen Delivery Oxygen Flow Rate 03/22/22 20:30 03/23/22 05:33 Temperature 36.6 C Pulse Rate 64 Respiratory Rate 16 Blood Pressure 175/62 H Pulse Oximetry 100 Oxygen Delivery Room Air Oxygen Flow Rate Intake/Output Intake/Output: Intake & Output 03/20/22 03/21/22 03/22/22 03/23/22 23:59 23:59 23:59 23:59 Intake Total 1010 1400 1290 Output Total 2565 3000 Balance -1555 1400 -1710 Meds/Results Medications: Active Medications Generic Name Dose Route Start Last Admin Trade Name Freq PRN Reason Stop Dose Admin Albuterol 2 puff 03/18/22 00:24 Albuterol Sulfate (*Sp) Aerosol 1 Puff INHALATION Q6HRT PRN Shortness Of Breath Amlodipine Besylate 10 mg 03/22/22 09:00 03/22/22 13:42 Amlodipine Besylate 5 Mg Tablet PO 10 mg QAM LAUREN Administration Atorvastatin Calcium 20 mg 03/18/22 09:00 03/22/22 08:23 Atorvastatin 20 Mg Tablet PO 20 mg DAILY LAUREN Administration Clonidine HCl 0.1 mg 10
[2022-03-23 08:00] VITALS: O2SAT 100
[2022-03-23] MEDS: FUROSEMIDE 40 MG TABLET PO (08:01)
[2022-03-23] MEDS: amLODIPine BESYLATE 5 MG TABLET 10 MG PO (08:01)
[2022-03-23] MEDS: SPIRONOLACTONE 12.5 MG TABLET PO (08:01)
[2022-03-23] MEDS: PANTOPRAZOLE 40 MG TABLET PO (08:02)
[2022-03-23] MEDS: ATORVASTATIN 20 MG TABLET PO (08:02)
[2022-03-23] MEDS: cloNIDine HCL 0.1 MG TABLET PO ×3 (08:03→16:30)
[2022-03-23] MEDS: IRON SUCROSE COMPLEX 200 MG in SODIUM CHLORIDE 0.9% IV 50 ML 120 MG IVPB (08:04)
[2022-03-23 08:07] LABS: Glucose Point of Care 116 mg/dl (65-105)
[2022-03-23 10:37] VITALS: O2SAT 93
[2022-03-23 11:40] LABS: Glucose Point of Care 125 mg/dl (65-105)
[2022-03-23 12:25] VITALS: BP 164/41; PULSE 60; RESP 18; TEMP 36.4; O2SAT 100
[2022-03-23 14:00] VITALS: BP 167/40; PULSE 62; RESP 20; TEMP 36.6; O2SAT 100
[2022-03-23 16:36] LABS: Glucose Point of Care 91 mg/dl (65-105)
--- NOTE | 2022-03-23 18:47 | PM.IMPN ---
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 Colonoscopy on 03/20/22 showed a few diverticula without perforation or abscess without bleeding. Was given 1 u PRBC on 03/18/22 with h/h remaining stable since transfusion. Patient seen by hematology 08/11/21 for anemia and coding educator checking haptoglobin, LDH, methylmalonic acid and follow up outpatient for consideration for possible bone marrow biopsy pending other results. Anemia thought to be multifactorial with CKD but could not rule out MDS. Unclear if the patient followed up with Hematology outpatient. Hemoglobin has remained stable. -Discharge held today to allow for setup of outpatient hemodialysis -Will plan to discharge to home tomorrow after hemodialysis (2) Anemia: Assessment and Plan: -Trend hemoglobin daily -Appreciate recommendations from Nephrology (3) End-stage renal disease on hemodialysis: Assessment and Plan: Has MWF hemodialysis. Appreciate recommendations from Nephrology. (4) Chronic obstructive pulmonary disease: Assessment and Plan: Controlled. Continue PRN inhaler. (5) Hyperlipidemia: Assessment and Plan: -Continue with Lipitor. (6) Hypertension: Assessment and Plan: Still hypertensive. Amlodipine increased from 5-->10 mg yesterday. 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 Last a1c 4.9 in August of 2021. Subjective Date/time seen: 03/23/22 18:47 Patient seen and examined at beside this morning. Patient says she feels weak but otherwise feels ok. Denies hematochezia, melena, hemoptysis. Review of Systems Gastrointestinal: Gastrointestinal: Denies melena, Denies hematochezia and Denies hematemesis Exam Narrative: GENERAL: NAD, cooperative HEENT: Normocephalic, atraumatic, anicteric NECK:Supple CV: regular rate RESP: CTAB, Normal work of breathing. Abdomen: Soft, non-distended, EXTREMITIES: Warm and well perfused, no clubbing, cyanosis. SKIN: warm, dry and intact. NEURO: CN 2-12 grossly intact. Objective Data Vital Signs Vital Signs: Vital Signs - 24 hr 03/22/22 21:46 03/22/22 20:30 03/23/22 05:33 Temperature 36.9 C 36.6 C Pulse Rate 61 64 Respiratory Rate 17 16 Blood Pressure 150/41 H 175/62 H Pulse Oximetry 100 100 Oxygen Delivery Room Air Oxygen Flow Rate 03/23/22 08:00 03/23/22 10:37 03/23/22 12:25 Temperature 36.4 C L Pulse Rate 60 Respiratory Rate 18 Blood Pressure 164/41 H Pulse Oximetry 100 93 100 Oxygen Delivery Nasal Cannula Nasal Cannula Oxygen Flow Rate 2 3 03/23/22 14:00 Temperature 36.6 C Pulse Rate 62 Respiratory Rate 20 Blood Pressure 167/40 H Pulse Oximetry 100 Oxygen Delivery Oxygen Flow Rate Intake/Output Intake/Output: Intake & Output 03/20/22 03/21/22 03/22/22 03/23/22 23:59 23:59 23:59 23:59 Intake Total 1010 1400 1350 1210 Output Total 2565 3000 Balance -1555 1400 -1650 1210 Meds/Results Medications: Active Medications Generic Name Dose Route Start Last Admin Trade Name Freq PRN Reason Stop Dose Admin Albuterol 2 puff 03/18/22 00:24 Albuterol Sulfate (*Sp) Aerosol 1 Puff INHALATION Q6HRT PRN Shortness Of Breath Amlodipine Besylate 10 mg 03/22/22 09:00 03/23/22 08:01 Amlodipine Besylate 5 Mg Tablet PO 10 mg QAM LAUREN Administration Atorvastatin Calcium 20 mg 03/18/22 09:00 03/23/22 08:02 Atorvastatin 20 Mg Tablet PO 20 mg DAILY LAUREN Administration Clonidine HCl 0.1 mg 03/18/22 09:00 03/23/22 16:30 Clonidine Hcl 0.1 Mg Tablet PO 0.1 mg TID LAUREN Administration Dextrose 12.5 gm 03/18/22 11:18 D
[2022-03-23 20:40] VITALS: BP 165/47; PULSE 61; RESP 20; TEMP 36.6; O2SAT 94
[2022-03-24] VITALS (21 sets, daily range): BP systolic 121–185; BP diastolic 52–91; PULSE 59–93; RESP 18–20; TEMP 36.1–37; O2SAT 94–100
[2022-03-24] MEDS: SALINE LOCK FLUSH 10 ML IV PUSH ×2 (05:30→14:14)
[2022-03-24 05:44] LABS: Hemoglobin 7.3 g/dL (12.0-15.0); Mean Corpuscular HGB Conc 29.2 g/dl (32-36); Mean Corpuscular Hemoglobin 28.9 pg (26-34); Mean Corpuscular Volume 98.8 fl (80-100); Mean Platelet Volume 10.9 fl (7.4-10.4); Platelet Count Result 241 k/mm3 (150-375); Red Blood Count 2.53 M/mm3 (4.2-5.4); Red Cell Distribution Width 15.9 % (11.5-14.5); White Blood Count 5.9 K/mm3 (4.5-10.0)
[2022-03-24 05:46] LABS: Albumin Level 3.7 g/dL (3.5-5.1); Anion Gap 9 mmol/L (8-16); Blood Urea Nitrogen 52 mg/dL (7-17); Calcium 8.3 mg/dL (8.4-10.2); Carbon Dioxide 33 mmol/L (22-30); Chloride 94 mmol/L (98-107); Estimated CRCL calculation 12 ml/min; Estimated Glomerular Filt Rate 12; Glucose 106 mg/dL (65-110); Magnesium 2.3 mg/dL (1.6-2.3); Phosphorus 3.9 mg/dL (2.5-4.5); Potassium 4.6 mmol/L (3.4-5.0); Sodium 136 mmol/L (137-145)
[2022-03-24 08:37] LABS: Glucose Point of Care 108 mg/dl (65-105)
--- NOTE | 2022-03-24 11:13 | PM.PNNEP ---
Progress Note: A&P Assessment and Plan (1) End stage renal disease: Code(s): N18.6 - End stage renal disease Status: Chronic Assessment and Plan: patient is on dialysis (2) Profound anemia: Code(s): D64.9 - Anemia, unspecified Status: Acute Assessment and Plan: she had GI bleeding. This seems to have settled down. Her hemoglobin ranges between 7 and 9. She is getting Epogen and patient is on day 3 of iron (3) Chronic respiratory failure with hypoxia: Code(s): J96.11 - Chronic respiratory failure with hypoxia Status: Chronic Assessment and Plan: breathing okay right now (4) Hypertension: Code(s): I10 - Essential (primary) hypertension Status: Chronic Assessment and Plan: blood pressure 1 50-170. See how it is after fluid removal today. (5) Diabetes: Code(s): E11.9 - Type 2 diabetes mellitus without complications Status: Chronic Assessment and Plan: On Accu-Cheks and sliding-scale insulin per hospitalists. Subjective Date/time seen: 03/24/22 11:13 Interval history: Lying comfortably in bed. on dialysis and tolerating it well. She was seen at 10:30 a.m. Exam Narrative: WDWN in NAD skin no rash or sq nodules head ncat lungs clear bilaterally cor reg no rub or gallop abd BS+ nontender and soft ext no edema or cyanosis. Objective Data Vital Signs Vital Signs: Vital Signs - 24 hr 03/23/22 12:25 03/23/22 14:00 03/23/22 20:40 Temperature 36.4 C L 36.6 C 36.6 C Pulse Rate 60 62 61 Respiratory Rate 18 20 20 Blood Pressure 164/41 H 167/40 H 165/47 H Pulse Oximetry 100 100 94 Oxygen Flow Rate 03/24/22 06:00 03/24/22 09:18 03/24/22 09:35 Temperature 36.1 C L 36.8 C Pulse Rate 60 60 Respiratory Rate 20 20 Blood Pressure 169/91 H 184/54 H Pulse Oximetry 100 95 Oxygen Flow Rate 3 03/24/22 09:40 Temperature Pulse Rate 59 L Respiratory Rate Blood Pressure 154/74 H Pulse Oximetry Oxygen Flow Rate Intake/Output Intake/Output: Intake & Output 03/21/22 03/22/22 03/23/22 03/24/22 23:59 23:59 23:59 23:59 Intake Total 1400 1350 1210 390 Output Total 3000 Balance 1400 -1650 1210 390 Meds/Results Medications: Active Medications Generic Name Dose Route Start Last Admin Trade Name Freq PRN Reason Stop Dose Admin Albuterol 2 puff 03/18/22 00:24 Albuterol Sulfate (*Sp) Aerosol 1 Puff INHALATION Q6HRT PRN Shortness Of Breath Amlodipine Besylate 10 mg 03/22/22 09:00 03/23/22 08:01 Amlodipine Besylate 5 Mg Tablet PO 10 mg QAM LAUREN Administration Atorvastatin Calcium 20 mg 03/18/22 09:00 03/23/22 08:02 Atorvastatin 20 Mg Tablet PO 20 mg DAILY LAUREN Administration Clonidine HCl 0.1 mg 03/18/22 09:00 03/23/22 16:30 Clonidine Hcl 0.1 Mg Tablet PO 0.1 mg TID LAUREN Administration Dextrose 12.5 gm 03/18/22 11:18 Dextrose 50% 25 Gm/50 Ml Syringe IV PUSH PRN PRN Hypoglycemia Protocol Furosemide 40 mg 03/18/22 09:00 03/23/22 08:01 Furosemide 40 Mg Tablet PO 40 mg DAILY LAUREN Administration Glucagon 1 mg 03/18/22 11:18 Glucagon For Inj 1 Mg Vial IM PRN PRN Hypoglycemia Protocol Glucose 15 gm 03/18/22 11:18 Glucose Oral Gel 15 Gm Of Glucse In 37.5 Gm Tube PO PRN PRN Hypoglycemia Protocol Hydralazine HCl 10 mg 03/21/22 09:01 03/22/22 06:25 Hydralazine Hcl 20 Mg/Ml Vial IV PUSH 10 mg Q8H PRN Administration Blood Pressure - above 170 Dextrose 1,000 mls @ 100 mls/hr 03/18/22 11:18 Dextrose 5% 1,000 Ml IVPB PRN PRN Hypoglycemia Protocol Iron Sucrose 200 mg/ Sodium 60 mls @ 120 mls/hr 03/21/22 09:00 03/23/22 08:04 Chloride IVPB 03/25/22 09:01 120 mls/hr QAM LAUREN Administration Insulin Aspart 2 - 5 units 03/18/22 12:00 03/23/22 16:33 Insulin Aspart (*Bkc) 100 Units/Ml SUB-Q Not Given TIDWM LAUREN
[2022-03-24] MEDS: PANTOPRAZOLE 40 MG TABLET PO (14:12)
[2022-03-24] MEDS: ATORVASTATIN 20 MG TABLET PO (14:12)
[2022-03-24] MEDS: SPIRONOLACTONE 12.5 MG TABLET PO (14:12)
[2022-03-24] MEDS: FUROSEMIDE 40 MG TABLET PO (14:13)
[2022-03-24] MEDS: amLODIPine BESYLATE 5 MG TABLET 10 MG PO (14:13)
[2022-03-24] MEDS: IRON SUCROSE COMPLEX 200 MG in SODIUM CHLORIDE 0.9% IV 50 ML 120 MG IVPB (14:13)
--- NOTE | 2022-03-24 14:51 | PCNFU ---
Nutrition Follow-Up Complete: Inadequate oral intake related to NPO status, poor appetite prior to admission as evidenced by report Goal: Adequate PO intake at least 75% meals when advanced - Meeting goal Pt current nutrition is Renal diet. Nutrition recommendation: Continue current diet order and supplement Nepro BID Last recorded weight is 70 kg. Bowel Motility: Last BM 03/23/22 Labs Reviewed:hgb 7.3, Hct 25, Na 136, BUN 52, Creat 3.5 Meds Noted: Amlodopine, atorvastatin, Lasix, Novolog, protonix Skin: WNL Additional Notes: Appetite and intakes are good Monitor diet advancement, intakes, labs, plan of care. Follow up in 5 days
--- NOTE | 2022-03-24 15:02 | PM.DS ---
DS: Admitting Diagnosis Discharge Date 03/24/22 Admitting Diagnosis Anemia DS: Discharge Diagnosis Discharge Diagnosis (1) GI bleed: Code(s): K92.2 - Gastrointestinal hemorrhage, unspecified Status: Acute Assessment and Plan: Patient presented due to lower than normal anemia found during hemodialysis. Fecal occult blood was positive. 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 Colonoscopy on? 03/20/22 showed a few diverticula without perforation or abscess without bleeding.? Was given 1 u PRBC on 03/18/22 with h/h remaining stable since transfusion.? Patient seen by hematology 08/11/21 for anemia and software developer manager checking haptoglobin, LDH, methylmalonic acid and follow up outpatient for consideration for possible bone marrow biopsy pending other results. Anemia thought to be multifactorial with CKD but could not rule out MDS. Unclear if the patient followed up with Hematology outpatient. ? Hemoglobin has remained stable and patient has not had melena, hematochezia or signs of upper gastrointestinal bleeding. -Discharge to home (2) Anemia: Code(s): D64.9 - Anemia, unspecified Status: Acute Assessment and Plan: No evidence of acute gastrointestinal blood loss on colonoscopy during this hospitalization. EGD had been performed in July and there was no evidence of bleeding at that time. Patient was seen by Hematology during prior hospitalization and was recommended to follow up outpatient. End stage renal disease is also likely contributing to chronic anemia. FOBT was positive on admission but since then there has been no other evidence of bleeding. Patient has been given 4/5 planned doses of iron sucrose. The last bag can be completed by Nephrology during next hemodialysis or the custodial facility can finish the last dose. -Patient needs to complete follow up with Hematology outpatient -Will need to complete iron infusion outpatient -Will discharge patient with oral iron (3) End-stage renal disease on hemodialysis: Code(s): N18.6 - End stage renal disease; Z99.2 - Dependence on renal dialysis Status: Acute Assessment and Plan: Nephrology was consulted and patient had MWF hemodialysis. (4) Chronic obstructive pulmonary disease: Code(s): J44.9 - Chronic obstructive pulmonary disease, unspecified Status: Acute Assessment and Plan: Stable. No evidence of acute exacerbation durin this hospitalization. (5) Hyperlipidemia: Code(s): E78.5 - Hyperlipidemia, unspecified Status: Acute Assessment and Plan: Continue home statin. (6) Hypertension: Code(s): I10 - Essential (primary) hypertension Status: Chronic Assessment and Plan: Prior to hospitalization patient was taking clonidine, furosemide and spironolactone. Patient was persistently hypertensive so amlodipine was started by Nephrology. Patient discharged to home with clonidine, spironolactone, furosemide and amlodipine. 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 Last a1c 4.9 in August of 2021. DS: Summary Hospital Course Reason for hospitalization: Anemia Hospital Course: 86F with a past medical history of chronic obstructive pulmonary disease, chronic respiratory failure on 3LNC continuous at home, hypertension, hyperlipidemia, end stage renal disease with MWF hemodialysis, diet controlled diabetes and chronic anemia who presented to the emergency department from hemodialysis because she was noted to have worsening anemia during hemodialysis. Patient was not symptomatic. Baseline hemoglobin is 7-8. Hemoglobin was found to be 7.8 on admission. The patient
[2022-03-24] MEDS: NEOMYCIN/POLYMYXIN/BACITRACIN OINTMENT PACKET 1 PACKET (16:16)
[2022-03-24 16:52] LABS: Glucose Point of Care 127 mg/dl (65-105)
[2022-03-24 16:59] LABS: SARS-CoV-2 RNA PCR Negative
[2022-03-24] MEDS: cloNIDine HCL 0.1 MG TABLET PO (17:00)
== END 2022-03-24 20:20 | DRG 377 ==
LOC: ANHED 17:25 → ANH3MEDSUR 17:42
PROVIDERS: Family Medicine; Internal Medicine Gastroenterology; Internal Medicine Nephrology; Nurse Practitioner; Admitting Provider Internal Medicine; Emergency Provider Emergency Medicine; PCP Internal Medicine; Visit Provider Family Medicine
PROC: 0DJD8ZZ Inspection of Lower Intestinal Tract, Via Natural or Artificial Opening Endoscopic (ICD-10-PCS; CPT 45378; principal; 2022-03-20 15:30)
DX: K92.2 Gastrointestinal hemorrhage, unspecified (principal); N18.6 End stage renal disease; I12.0 Hypertensive chronic kidney disease with stage 5 chronic kidney disease or end stage renal disease; J96.11 Chronic respiratory failure with hypoxia; D63.1 Anemia in chronic kidney disease; J44.9 Chronic obstructive pulmonary disease, unspecified; E11.22 Type 2 diabetes mellitus with diabetic chronic kidney disease; E78.5 Hyperlipidemia, unspecified; E55.9 Vitamin D deficiency, unspecified; K57.30 Diverticulosis of large intestine without perforation or abscess without bleeding; K21.9 Gastro-esophageal reflux disease without esophagitis; M19.90 Unspecified osteoarthritis, unspecified site; N25.0 Renal osteodystrophy; H40.9 Unspecified glaucoma; Z20.822 Contact with and (suspected) exposure to COVID-19; Z87.891 Personal history of nicotine dependence; Z99.2 Dependence on renal dialysis; Z79.4 Long term (current) use of insulin; Z99.81 Dependence on supplemental oxygen
CPT/HCPCS: 36415; 36430; 36569; 51701; 74018; 74176; 80053; 80069; 81001; 82607; 82728; 82746; 82948; 83540; 83550; 83605; 83690; 83735; 84100; 85014; 85018; 85025; 85027; 85610; 85730; 86706; 86850; 86900; 86901; 86920; 87340; 96374; 96375; 97161; 97165; 97530; 97535; 99285; A9270; C1751; C9113; C9803; G0257; G0378; J0360; J1756; J1815; J2704; J7030; J7040; J7050; P9016; Q5105; U0003; U0005

== ENCOUNTER 2022-04-07 06:48 | Inpatient (IN) | payer MEDICARE, MEDICAID, SELFPAY ==
[2022-04-07] VITALS (23 sets, daily range): BP systolic 129–170; BP diastolic 41–98; PULSE 68–85; RESP 16–30; TEMP 36.6–37.2; O2SAT 90–100; BMI 24.8
--- NOTE | ~2022-04-07 | XR_ITS ---
EXAMINATION: XR chest 1V portable INDICATION: Shortness of breath TECHNIQUE: Portable AP chest at 1115 hours COMPARISON: 04/08/2022 FINDINGS: There appears to be a small right pleural effusion. Airspace opacities are present in the r ight lung base and have not significantly changed. No pneumothorax is identified. A healed right-side d rib fracture is noted. The cardiomediastinal silhouette is normal. IMPRESSION: 1. Probable small right pleural effusion. 2. Stable airspace opacities of the right lung base, consistent with atelectasis versus pneumonia. Reviewed, dictated and finalized at location B. TED [employer] LAYOUT TAPER IMPRESSION: 1. Probable small right pleural effusion. 2. Stable airspace opacities of the right lung base, consistent with atelectasi s versus pneumonia.
--- NOTE | ~2022-04-07 | XR_ITS ---
XR chest 1V portable DATE: 04/08/2022 06:52 INDICATION: Oxygen desaturation. Coarse breath sounds. TECHNIQUE: Portable upright AP chest on 04/08/2022 at 0640 hours COMPARISON: 04/2022 portable AP chest at 0812 hours FINDINGS: There is opacification of the lower 1/3-1/2 of the right hemithorax likely due to combinati on of atelectasis, consolidation and moderate right pleural effusion. There is patchy infiltrate thro ughout most of the remainder of the right lung and left mid and lower lung. There is pulmonary vascul ar congestion and redistribution. No left pleural effusion. Heart size is likely within normal range. Diffuse osteopenia. Levoscoliosis and degenerative change of the thoracic spine. IMPRESSION: Persistent prominent right lower lung atelectasis and/or consolidation and moderate right pleural effusion Diffuse right lung and left mid and lower lung infiltrates suggesting possible pulmonary edema, with pulmonary vascular congestion. The congestive changes are new or increased since 04/07/2022. Reviewed, dictated and finalized at location A. IMPRESSION: Persistent prominent right lower lung atelectasis and/or consolidat ion and moderate right pleural effusion Diffuse right lung and left mid and lower lung infiltrates suggesting possible pulmonary edema, with pulmonary vascular congestion. The congestive changes are new or increased since 04/07/2022.
--- NOTE | ~2022-04-07 | XR_ITS ---
XR chest 1V portable 04/07/2022 08:16 Indication: Pneumonia Procedure: AP portable chest Comparison: Comparison to multiple prior studies sequentially, with oldest reviewed study dated 06/21. Findings: There is asymmetric airspace disease of the right lung, consistent with pneumonia. There is right pleural effusion. Left lung is clear. No pneumothorax. No acute osseous abnormality. Impression: 1: Extensive right-sided airspace disease, compatible with pneumonia. 2: Right pleural effusion. Reviewed, dictated and finalized at location A. Impression: 1: Extensive right-sided airspace disease, compatible with pneumonia. 2: Right pleural effusion.
--- NOTE | 2022-04-07 07:09 | ECG_ITS ---
Measurements Intervals Albert Rate: 73 P: MT: 0 QRS: -20 QRSD: 113 T: 83 QT: 390 QTc: 430 Interpretive Statements SINIUS RHYTHM SUPRAVENTRICULAR TRIGEMINY INTRAVENTRICULAR CONDUCTION DELAY LEFT VENTRICULAR HYPERTROPHY WITH ST-T CHANGE ABNORMAL ECG COMPARED TO ECG 07/25/2021 08:58:02 SUPRAVENTRICULAR TRIGEMINY NOW PRESENT LEFT VENTRICULAR HYPERTROPHY NOW PRESENT Electronically Signed On 04-07-2022 7:56:02 CDT by Kendrick Frances D.O.
--- NOTE | 2022-04-07 07:20 | PC.NURSE ---
Report given to SARBJIT Schulz.
[2022-04-07 07:56] LABS: Basophils Absolute Auto 0.1 K/mm3 (0.0-0.1); Basophils Percent Auto 0.5 % (0.2-1.2); Eosinophils Absolute Auto 0.3 K/mm3 (0-0.3); Eosinophils Percent Auto 2.4 % (0-4.4); Hematocrit 29.3 % (37.0-47.0); Hemoglobin 8.8 g/dL (12.0-15.0); Immature Granulocyte Absolute 0.06 K/mm3 (0.00-0.031); Immature Granulocyte Percent A 0.6 % (0-0.5); Lymphocytes Absolute Auto 0.52 K/mm3 (0.9-3.2); Lymphocytes Percent Auto 4.9 % (18.3-44.2); Mean Corpuscular Hemoglobin 29.2 pg (26-34); Mean Corpuscular Volume 97.3 fl (80-100); Mean Platelet Volume 10.1 fl (7.4-10.4); Monocytes Absolute Auto 1.3 K/mm3 (0.1-0.6); Monocytes Percent Auto 12.4 % (2.6-8.5); Neutrophils Absolute Auto 8.4 K/mm3 (1.3-6.7); Neutrophils Percent Auto 79.2 % (45.5-73.1); Platelet Count Result 372 k/mm3 (150-375); Red Blood Count 3.01 M/mm3 (4.2-5.4); Red Cell Distribution Width 16.1 % (11.5-14.5); White Blood Count 10.6 K/mm3 (4.5-10.0)
[2022-04-07 08:10] LABS: Lactic Acid Reflex 0.8 mmol/L (0.7-2.0)
[2022-04-07 08:11] LABS: Alanine Aminotransferase 35 U/L (6-35); Alkaline Phosphatase 114 U/L (38-126); Anion Gap 12 mmol/L (8-16); Aspartate Amino Transferase 32 U/L (14-36); Bilirubin,Total 0.4 mg/dL (0.2-1.3); Blood Urea Nitrogen 43 mg/dL (7-17); Calcium 8.5 mg/dL (8.4-10.2); Carbon Dioxide 34 mmol/L (22-30); Chloride 90 mmol/L (98-107); Estimated CRCL calculation 12 ml/min; Estimated Glomerular Filt Rate 13; Glucose 105 mg/dL (65-110); Lipase 73 U/L (23-300); Magnesium 2.1 mg/dL (1.6-2.3); Potassium 4.6 mmol/L (3.4-5.0); Sodium 136 mmol/L (137-145)
[2022-04-07 08:12] LABS: Glucose Point of Care 104 mg/dl (65-105)
[2022-04-07 08:14] LABS: Appearance Urine Cloudy (Clear); Bilirubin Urine 1+ (Negative); Blood Urine 1+ (Negative); Color Urine Yellow (Yellow); Glucose Urine UA Negative (Negative); Ketones Urine Negative (Negative); Leukocyte Esterase Ur Trace LEU/UL (Negative); Nitrate Urine Negative (Negative); Protein Urine 2+ mg/dL (Negative); Urobilinogen Urine 0.2 mg/dL (<2.0); pH Urine 5.5 (5.0-9.0)
[2022-04-07 08:18] LABS: Amorphous Sediment Urine Few; Mucus Urine Rare /lpf; Squamous Epithelial Cell Urine Few /hpf (Few); WBC Urine 16-20 /hpf
--- NOTE | 2022-04-07 08:21 | ED.GENADULT ---
HPI - General Adult General Chief complaint: Shortness of Breath/Dyspnea Stated complaint: diff breathing, low O2 Time Seen by Provider: 04/07/22 07:02 History of Present Illness HPI narrative: This is an 87-year-old female on 3 L home oxygen presented to ED with shortness of breath. Patient is a poor historian is unable to provide much information. She does not know how long she has been short of breath. She does report that she has had a cough with productive green mucus. She also notes pain on urination. Denies any other complaints. Related Data Home Medications Medication Instructions Recorded Confirmed atorvastatin 20 mg tablet 20 mg PO DAILY 06/22/21 03/17/22 clonidine HCl 0.1 mg tablet 0.1 mg PO TID 06/22/21 03/17/22 ergocalciferol (vitamin D2) 1,250 50,000 unit PO WEEKLY 06/22/21 03/18/22 mcg (50,000 unit) capsule furosemide 40 mg tablet 40 mg PO DAILY 06/22/21 03/17/22 latanoprost 0.005 % eye drops 1 drp EACH EYE DAILY 06/22/21 03/18/22 pantoprazole 40 mg tablet,delayed 40 mg PO DAILY 06/22/21 03/17/22 release spironolactone 25 mg tablet 12.5 mg PO DAILY 06/22/21 03/17/22 Acidophilus 1 cap PO BID 03/17/22 03/17/22 Allergies Allergy/AdvReac Type Severity Reaction Status Date / Time latex Allergy Rash Verified 03/23/22 07:54 Review of Systems Review of Systems: CONSTITUTIONAL: Denies night sweats. EYES: No eye pain ENT: Denies rhinorrhea CARDIOVASCULAR: Denies palpitations RESPIRATORY: Denies hemoptysis GASTROINTESTINAL: Denies hematemesis GENITOURINARY: Denies hematuria. SKIN: Denies rash MUSCULOSKELETAL: Denies myalgia. NEUROLOGIC: Denies weakness. PSYCHIATRIC: Denies delusions PMFSH Past Medical History Medical History Chronic anemia Chronic obstructive pulmonary disease Chronic respiratory failure with hypoxia COVID-19 (06/2021) End-stage renal disease on hemodialysis Erythropoietin deficiency anemia Gastroesophageal reflux disease Glaucoma Hyperlipidemia Hypertension Insulin dependent type 2 diabetes mellitus Osteoarthritis Renal osteodystrophy Vitamin D deficiency Surgical History Surgical History Status post creation of arteriovenous fistula Left upper extremity. Family History Family History Other Diabetes mellitus Hypertension Social History Social History Social History: the patient tells me that she has 3 children. Initially the patient told me that she lives with a son and [id number]. But the nurse reported that the patient is from a nursing facility. 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 She is . She is a former smoker.Surrogate decision maker: Amy Contreras, roman. Code status: Full code. Smoking packs per day: 1 Smoking cigarettes per day: 20.0 Years smoked: 34 Smoking pack-years: 34.00 Smoking status: Former smoker Tobacco type: cigarettes Second hand tobacco smoke exposure: No Alcohol intake: never Substance use: never Substance use type: does not use Spiritual care concerns: No Exam Narrative: APPEARANCE: No apparent distress. Head atraumatic. EYES: PERRLA/EOMI, NOSE: Normal no drainage NECK: Supple, Trachea midline RESPIRATORY: decreased lung sounds in the right lung base. Scattered expiratory wheezes throughout. CARDIOVASCULAR: S1S2 appreciated ABDOMINAL: Soft, tenderness to palpation in the suprapubic area, no guarding or rebound MUSCULOSKELETAl: No obvious deformities NEURO: Alert. Moving 4/4 extremities SKIN:: Warm, dry. Normal color PSYCHIATRIC: Normal affect Course Vital Signs Vital signs: Vital Signs Temperature 98.7 F 04/07/22 06:52 Pulse Rate 74 04/07/22 06:52 Respiratory Rate 20 04/07/22 06:52 Blood Pressure 150/78 H 04/07/22 06:52 Pulse Oximet
[2022-04-07 08:23] LABS: Troponin I 0.043 ng/mL (0.000-0.034)
[2022-04-07 08:25] LABS: Add Urine Microscopic? YES
--- NOTE | 2022-04-07 08:50 | PC.NURSE ---
I SPOKE W/ PT POA ABOUT NEED FOR IV ANTIBIOTICS. SON AGREES TO IV ABX TREATMENT. SON ALSO INFORMS ME THAT THE PT IS DUE FOR DIALYSIS TODAY.
[2022-04-07] MEDS: ALBUTEROL SULFATE NEB 2.5 MG/3 ML INH 5 MG INHALATION (09:20)
[2022-04-07] MEDS: IPRATROPIUM BR 0.02% INH SOLN 0.5 MG/2.5 ML VIAL INHALATION (09:21)
[2022-04-07 09:31] LABS: INR 1.2
[2022-04-07 09:32] LABS: Partial Thromboplastin Time 44.3 SECONDS (22.3-36.8)
[2022-04-07 09:38] LABS: SARS-CoV-2 RNA PCR Positive
[2022-04-07] MEDS: SODIUM CHLORIDE 0.9% IV 500 ML 999 ML IV CONT (09:52)
--- NOTE | 2022-04-07 11:40 | PC.NURSE ---
MULTIPLE ATTEMPTS WERE MADE TO DRAW THIS PT BLOOD. PHLEBOTOMY WAS ABLE TO DRAW SECOND SET OF CULTURES AND BLUE TOP TUBE. PHLEBOTOMY CONTACTED AGAIN ABOUT DRAWING REPEAT TROPONIN BUT THEY ARE UNAVAILABLE AT THIS TIME.
--- NOTE | 2022-04-07 13:35 | PC.NURSE ---
This patient, Sofía Contreras, was admitted to 2 Medical Room 249-01. Patient/family oriented to hospital policies and general routines including ID bracelet, bed and alarms, visiting hours, pain management, procedures, bathroom and other care routines, personal items, smoking policy, room service/diet, and visiting hours. Information on how to activate the Rapid Response Team has been discussed. Patient/Family are encouraged to report perceived risks to care and to ask questions if they do not understand what they are told or what they should do.
--- NOTE | 2022-04-07 15:17 | PM.CNNEP ---
Assessment and Plan Assessment and plan (1) ESRD (end stage renal disease): Code(s): N18.6 - End stage renal disease Status: Acute Assessment and Plan: the patient has end-stage renal disease. Most likely this is due to diabetes and hypertension. She gets dialysis 3 times a week on Wednesdays and Fridays. She is due today. (2) COVID: Code(s): U07.1 - COVID-19 Status: Acute Assessment and Plan: The patient has COVID. She swabbed positive in the Emergency room. She has oxygen at home [id number]/minute. Now she is vd5vvddhx/minute. Consider Dexamethasone? Paxil of it is not used in dialysis patients. She is also on traditional antibiotics in case there is a superimposed bacterial pneumonia cultures have been checked (3) Diabetes: Code(s): E11.9 - Type 2 diabetes mellitus without complications Status: Chronic Assessment and Plan: the patient is on Accu-Cheks and sliding-scale insulin per hospitalist. (4) HTN (hypertension): Code(s): I10 - Essential (primary) hypertension Status: Chronic Assessment and Plan: Blood pressure is a little bit on the high side. Will get her back on her home medications. We will take fluid off of her in dialysis. Hopefully her blood pressure will improve (5) Erythropoietin deficiency anemia: Code(s): D63.1 - Anemia in chronic kidney disease Status: Acute Assessment and Plan: hemoglobin is a bit on the low side. We will give her Epogen. (6) Renal osteodystrophy: Code(s): N25.0 - Renal osteodystrophy Status: Acute Assessment and Plan: Will check a phosphorus level in the morning (7) Gastroesophageal reflux disease: Code(s): K21.9 - Gastro-esophageal reflux disease without esophagitis Status: Acute Assessment and Plan: the patient takes pantoprazole at home History of Present Illness Reason for Consult Consult date: 04/07/22 Chief Complaint Chief complaint: Pneumonia History of Present Illness Narrative: Sofía is a very pleasant 87-year-old lady who has multiple medical problems including end-stage renal disease on dialysis 3 times a week, anemia, COPD, anemia, renal osteodystrophy, vitamin-D deficiency, diabetes hypertension hyperlipidemia, and GERD. The patient came to the hospital because she was short of breath. She has a cough is well. No fevers or chills. No chest pain. It has gradually gotten worse over the last few days. She goes to dialysis 3 times a week on Wednesdays and Fridays. She did not go today because she was weak. Review of Systems Cardiovascular: Cardiovascular: Reports no additional cardiovascular complaints Respiratory: Respiratory: Reports no additional respiratory complaints Gastrointestinal: Gastrointestinal: Reports no additional gastrointestinal complaints Genitourinary: Genitourinary: Reports no additional female genitourinary complaints PMFSH Past Medical History Medical History Chronic anemia Chronic obstructive pulmonary disease Chronic respiratory failure with hypoxia COVID-19 (06/2021) End-stage renal disease on hemodialysis Erythropoietin deficiency anemia Gastroesophageal reflux disease Glaucoma Hyperlipidemia Hypertension Insulin dependent type 2 diabetes mellitus Osteoarthritis Renal osteodystrophy Vitamin D deficiency Surgical History Surgical History Status post creation of arteriovenous fistula Left upper extremity. Family History Family History Other Diabetes mellitus Hypertension Social History Social History Social History: the patient tells me that she has 3 children. Initially the patient told me that she lives with a son a
--- NOTE | 2022-04-07 16:33 | PM.IMHP ---
H&P: HPI History of Present Illness Date/Time: 04/07/22 16:33 Chief Complaint: Shortness of breath Narrative: This is a 87-year-old female patient who is very hard of hearing and wears oxygen at 3 L per nasal cannula at home. The patient is a very poor historian. I was asking her questions and she was unable to answer. She was able to say her name but not the month or where she is now. The patient has a productive cough that is green mucus. She has a history of end-stage renal disease on dialysis. Dr. Diaz has been consulted. The patient swabbed positive for COVID in the emergency room. The patient is currently turned up to 4 L per nasal cannula. Patient is very hard of hearing and is having difficulty hearing me to answer the questions. White count is 10.0. H&H is 8.8 and 29.3. Sodium is 136. BUN 43 creatinine 3.3. Troponin 0.043. However the patient is a dialysis patient. Chest x-ray was read as extensive right-sided airspace disease compatible with pneumonia. Right pleural effusion. The patient was started on vancomycin and cefepime for pneumonia. BUN is 43 and creatinine is 3.3. The patient is being admitted to inpatient on the date of service of 04/07/2022. Review of Systems Review of Systems: See HPI All systems reviewed & are unremarkable except as noted in HPI and below Constitutional: Constitutional: Reports as per HPI and Reports no additional constitutional complaints Eyes: Eyes: Reports as per HPI and Reports no additional eye complaints ENT: Reports system reviewed and no additional complaints, except as documented and Reports Normal hearing present Cardiovascular: Cardiovascular: Reports no additional cardiovascular complaints Respiratory: Respiratory: Reports no additional respiratory complaints and Reports no additional respiratory complaints Gastrointestinal: Gastrointestinal: Reports as per HPI and Reports no additional gastrointestinal complaints Musculoskeletal: Musculoskeletal: Reports no additional musculoskeletal complaints Integumentary/Breasts: Skin/Breast: Reports system reviewed and no additional complaints, except as docu and Reports as per HPI Neurologic: Reports system reviewed and no additional complaints, except as documented, Reports as per HPI and Reports Normal hearing present Psychiatric: Psychiatric: Reports no additional psychiatric complaints and Reports as per HPI Endocrine: Endocrine: Reports no additional endocrine complaints Hematologic/Lymphatic: Hematologic/Lymphatic: Reports no additional hematologic/lymphatic complaints Allergic/Immunologic: Allergic/Immunologic: Reports no additional allergic/immunologic complaints PMFSH Past Medical History Medical History (Updated 04/07/22 @ 17:17 by Keily Holt NP) Anemia Anemia Chronic anemia Chronic obstructive pulmonary disease Chronic respiratory failure with hypoxia COVID-19 (06/2021) Diabetes DVT prophylaxis End-stage renal disease on hemodialysis Erythropoietin deficiency anemia ESRD on dialysis Gastroesophageal reflux disease Glaucoma Hyperlipidemia Hypertension Insulin dependent type 2 diabetes mellitus Osteoarthritis Renal osteodystrophy Vitamin D deficiency Surgical History Surgical History Status post creation of arteriovenous fistula Left upper extremity. Family History Family History Other Diabetes mellitus Hypertension Social History Social History (Updated 04/07/22 @ 16:54 by Keily Holt NP) Social History: the patient tells me that she has 3 children. Initially the patient told me that she lives with a son and [id number]. But the nurse reported that the patient is from a nursing facility. 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 She is . She is a former smoker.Surrogate decision maker: Amy Contreras, roman. Code status: dnr. Smoking pac
[2022-04-07] MEDS: EPOETIN ALFA-EPBX 10,000 UNITS/ML VIAL 10000 UNITS IV PUSH (17:21)
[2022-04-07] MEDS: cloNIDine HCL 0.1 MG TABLET PO (18:23)
[2022-04-07 19:59] LABS: Glucose Point of Care 121 mg/dl (65-105)
[2022-04-07 20:37] LABS: INR 1.3; Prothrombin Time 15.7 Seconds (11.1-14.7)
[2022-04-07] MEDS: ATORVASTATIN 20 MG TABLET PO (20:37)
[2022-04-07 20:39] LABS: Alanine Aminotransferase 27 U/L (6-35); Estimated CRCL calculation 22 ml/min; Estimated Glomerular Filt Rate 27
[2022-04-07 20:54] LABS: Troponin I 0.037 ng/mL (0.000-0.034)
[2022-04-07] MEDS: ALBUTEROL SULFATE (*SP) AEROSOL 1 PUFF 2 PUFF INHALATION (21:52)
[2022-04-08] VITALS (16 sets, daily range): BP systolic 136–179; BP diastolic 42–52; PULSE 60–83; RESP 18–28; TEMP 36.3–37.1; O2SAT 76–98
--- NOTE | 2022-04-08 | ECHO_ITS ---
Patient Info Name: Sofía Contreras Age: 87 years : 1935 Gender: Female Ht: 79 in Wt: 168 lbs BSA: 2.04 m2 HR: 68 bpm BP: 179 / 52 mmHg Heart Rhythm: Sinus Rhythm Technical Quality: Fair Exam Date: 04/08/2022 3:01 PM Exam Location: [facility] Pulmonary Exam Room: 249 Patient Status: Inpatient Admit Date: 04/07/2022 Staff Ordering Physician: Simone Webber Fiberglasser: Rosanna Moncada RDCS Attending Provider: Carlitos Rodriguez MD Referring Physician: Akbar CARRILLO; Exam Type: CA echo doppler color flow Study Info Indications - covid edema sob Complete two-dimensional, color flow and Doppler transthoracic echocardiogram is performed. Summary 1. Complete two-dimensional, color flow and Doppler transthoracic echocardiogram is performed. 2. Left ventricular chamber dimension is normal. 3. Left ventricular systolic function is normal, estimated at 60-65%. 4. There is mildly increased left ventricular wall thickness. 5. The left ventricular diastolic function is grade I diastolic dysfunction. 6. Left atrial chamber dimension is moderately enlarged. 7. There is mild mitral valve regurgitation. 8. The mitral valve annulus is severely calcified. 9. There is mild tricuspid valve regurgitation. 10. Moderate pulmonary hypertension, estimated pulmonary arterial systolic pressure is 50 mmHg. Left Ventricle Left ventricular chamber dimension is normal. Left ventricular systolic function is normal, estimated at 60-65%. There is mildly increased left ventricular wall thickness. The left ventricular diastolic function is grade I diastolic dysfunction. Right Ventricle Right ventricular chamber dimension is normal. Right ventricular systolic function is normal. Left Atria Left atrial chamber dimension is moderately enlarged. Right Atria Right atrial chamber dimension is normal. Atrial Septum Intact interatrial septum visualized by color flow imaging. Aortic Valve The aortic valve is trileaflet. There is mild aortic valve sclerosis. There is no aortic valve stenosis. There is trace aortic valve regurgitation. Pulmonic Valve The pulmonic valve is normal. There is no pulmonic valve stenosis. There is trace pulmonic regurgitation. Mitral Valve There is no mitral valve stenosis. There is mild mitral valve regurgitation. The mitral valve annulus is severely calcified. Tricuspid Valve The tricuspid valve leaflets are normal. There is no significant tricuspid valve stenosis. There is mild tricuspid valve regurgitation. Moderate pulmonary hypertension, estimated pulmonary arterial systolic pressure is 50 mmHg. Pericardium/Pleural The pericardium appears normal. There is no pericardial effusion. Inferior Vena Cava Normal inferior vena cava with >50% collapse upon inspiration consistent with normal right atrial pressure, 10 mmHg. Aorta The aortic root size at the sinus of Valsalva is normal. Left Ventricular Outflow Tract Name Value Normal LVOT 2D LVOT Diameter 2.0 cm LVOT Doppler LVOT Peak Gradient 7 mmHg LVOT Mean Gradien
[2022-04-08] MEDS: ALBUTEROL SULFATE (*SP) AEROSOL 1 PUFF 2 PUFF INHALATION ×3 (02:55→14:48)
[2022-04-08 05:34] LABS: Basophils Absolute Auto 0.1 K/mm3 (0.0-0.1); Basophils Percent Auto 0.6 % (0.2-1.2); Eosinophils Absolute Auto 0.2 K/mm3 (0-0.3); Eosinophils Percent Auto 1.5 % (0-4.4); Hematocrit 27.4 % (37.0-47.0); Hemoglobin 8.1 g/dL (12.0-15.0); Immature Granulocyte Absolute 0.07 K/mm3 (0.00-0.031); Immature Granulocyte Percent A 0.6 % (0-0.5); Lymphocytes Absolute Auto 0.69 K/mm3 (0.9-3.2); Lymphocytes Percent Auto 6.3 % (18.3-44.2); Mean Corpuscular HGB Conc 29.6 g/dl (32-36); Mean Corpuscular Volume 98.2 fl (80-100); Mean Platelet Volume 10.3 fl (7.4-10.4); Monocytes Absolute Auto 1.2 K/mm3 (0.1-0.6); Monocytes Percent Auto 10.8 % (2.6-8.5); Neutrophils Absolute Auto 8.8 K/mm3 (1.3-6.7); Neutrophils Percent Auto 80.2 % (45.5-73.1); Platelet Count Result 426 k/mm3 (150-375); Red Blood Count 2.79 M/mm3 (4.2-5.4); Red Cell Distribution Width 16.2 % (11.5-14.5)
[2022-04-08 05:43] LABS: INR 1.3; Prothrombin Time 15.3 Seconds (11.1-14.7)
[2022-04-08 05:57] LABS: Lactic Acid Reflex 0.9 mmol/L (0.7-2.0)
[2022-04-08 06:03] LABS: Alanine Aminotransferase 27 U/L (6-35); Albumin Level 3.8 g/dL (3.5-5.1); Alkaline Phosphatase 120 U/L (38-126); Anion Gap 12 mmol/L (8-16); Aspartate Amino Transferase 30 U/L (14-36); Bilirubin,Total 0.3 mg/dL (0.2-1.3); Blood Urea Nitrogen 28 mg/dL (7-17); Calcium 8.4 mg/dL (8.4-10.2); Carbon Dioxide 36 mmol/L (22-30); Chloride 92 mmol/L (98-107); Estimated CRCL calculation 15 ml/min; Estimated Glomerular Filt Rate 17; Glucose 96 mg/dL (65-110); Magnesium 2.1 mg/dL (1.6-2.3); Phosphorus 4.1 mg/dL (2.5-4.5); Potassium 4.3 mmol/L (3.4-5.0); Sodium 140 mmol/L (137-145)
[2022-04-08] MEDS: ALBUTEROL SULFATE NEB 2.5 MG/3 ML INH INHALATION (06:20)
[2022-04-08] MEDS: IPRATROPIUM BR 0.02% INH SOLN 0.5 MG/2.5 ML VIAL INHALATION (06:20)
[2022-04-08] MEDS: FUROSEMIDE INJ 40 MG/4 ML VIAL IV PUSH (06:35)
[2022-04-08 06:58] LABS: NT Pro B Type Natriuretic Pept 14500 pg/mL (5-100)
[2022-04-08 07:57] LABS: Anisocytosis 1+ (NORMAL); Platelet Estimate Increased (Adequate); Poikilocytosis 1+ (NORMAL); Schistocytes None Seen (NORMAL)
[2022-04-08 08:27] LABS: Free T4 Free Thyroxine Reflex 0.18 ng/dL (0.78-2.19)
[2022-04-08] MEDS: CEFEPIME 0.5 GM in DEXTROSE 5% IN WATER 50 ML IVPB (09:35)
[2022-04-08] MEDS: SPIRONOLACTONE 12.5 MG TABLET PO (09:36)
[2022-04-08] MEDS: cloNIDine HCL 0.1 MG TABLET PO ×3 (09:36→18:40)
[2022-04-08] MEDS: LATANOPROST 0.005% OP SOLN 2.5 ML BTL 1 DROP EACH EYE (09:36)
[2022-04-08] MEDS: FERROUS SULFATE 324 MG TABLET PO ×2 (09:36→18:40)
[2022-04-08] MEDS: amLODIPine BESYLATE 5 MG TABLET 10 MG PO (09:36)
[2022-04-08] MEDS: PANTOPRAZOLE 40 MG TABLET PO (09:36)
[2022-04-08] MEDS: FUROSEMIDE 40 MG TABLET PO (09:36)
--- NOTE | 2022-04-08 09:45 | P.PNIM_ITS ---
Progress Note: A&P Assessment and Plan (1) COVID: Code(s): U07.1 - COVID-19 Status: Acute Assessment and Plan: * Covid positive in the ED * Chest xray indicates extensive right airspace disease compatible with PNA, right pleural effusion * Repeat xray 04/08/2022 shows edema or consolidation that is worse since 04/07/22 * Albuterol * Isolation precautions * Supplemental oxygen, wean to maintain saturations >90% * Continue Decadron * Unable to get remdesivir due to renal function * Repeat Echo ordered * Blood cultures pending * Sputum culture ordered * Get ferritin, dimer, CRP in the am * Trend respiratory status * Adjust therapy as indicated (2) Pneumonia: Code(s): J18.9 - Pneumonia, unspecified organism Status: Acute Assessment and Plan: * See above * Cefepime and vancomycin on board (3) ESRD (end stage renal disease): Code(s): N18.6 - End stage renal disease Status: Acute Assessment and Plan: * Current BUN/Cr 28/2.60 * Dialysis last on 04/07/22 with a little more than 2400ml * Continue to trend labs * Dr. Diaz has been consulted. * 3 times a week on Wednesdays and Fridays. (4) Anemia in ESRD (end-stage renal disease): Code(s): N18.6 - End stage renal disease; D63.1 - Anemia in chronic kidney disease Status: Acute Assessment and Plan: * Current H&H 8.1/27.4 * Most likely anemia of chronic disease * Anemia labs in the am * Iron from 03/20/22 noted to be low * Start patient on 325mg PO BID * Adjust as indicated * Continue to trend labs (5) HTN (hypertension): Code(s): I10 - Essential (primary) hypertension Status: Chronic Assessment and Plan: * BP is 144/42 * Continue home amlodipine, clonidine, lasix, and spinolactone * trend BP * Adjust therapy as indicated (6) Hyperlipidemia: Code(s): E78.5 - Hyperlipidemia, unspecified Status: Acute Assessment and Plan: -continue with atorvastatin. (7) Gastroesophageal reflux disease: Code(s): K21.9 - Gastro-esophageal reflux disease without esophagitis Status: Acute Assessment and Plan: -continue with pantoprazole Time Spent With Patient Time with patient: Greater than 35 minutes Subjective Date/time seen: 04/08/22 Interval history: 04/08/22 Patient was a rapid response this morning. It was noted that she had a severe increase in oxygen demand. It was noted that she was 69% on 3.5L and was increased to 15LNC, and was sating 96%. Chest xray was performed and does show worsening disease. Lasix was given one time for possible fluid overload. Re- evaluation this morning at 9:45 a.m. patient was noted to have been weaned down to 5 L. patient stated that she has a cough and she has been get a lot up. Appearance was yellow greenish thick. Patient seems a little frustrated. She is very hard hearing it was hard to get review of systems however she did deny chest pain, nausea, vomiting, weakness or fatigue. She did state that she was in the middle of somewhere between weak and strong. Chest x-ray this morning showed persistent prominent right lower lung atelectasis and/or consolidation and moderate right pleural
--- NOTE | 2022-04-08 09:45 | PM.IMPN ---
Progress Note: A&P Assessment and Plan (1) COVID: Code(s): U07.1 - COVID-19 Status: Acute Assessment and Plan: Covid positive in the ED Chest xray indicates extensive right airspace disease compatible with PNA, right pleural effusion Repeat xray 04/08/2022 shows edema or consolidation that is worse since 04/07/22 Albuterol Isolation precautions Supplemental oxygen, wean to maintain saturations >90% Continue Decadron Unable to get remdesivir due to renal function Repeat Echo ordered Blood cultures pending Sputum culture ordered Get ferritin, dimer, CRP in the am Trend respiratory status Adjust therapy as indicated (2) Pneumonia: Code(s): J18.9 - Pneumonia, unspecified organism Status: Acute Assessment and Plan: See above Cefepime and vancomycin on board (3) ESRD (end stage renal disease): Code(s): N18.6 - End stage renal disease Status: Acute Assessment and Plan: Current BUN/Cr 28/2.60 Dialysis last on 04/07/22 with a little more than 2400ml Continue to trend labs Dr. Diaz has been consulted. 3 times a week on Wednesdays and Fridays. (4) Anemia in ESRD (end-stage renal disease): Code(s): N18.6 - End stage renal disease; D63.1 - Anemia in chronic kidney disease Status: Acute Assessment and Plan: Current H&H 8.1/27.4 Most likely anemia of chronic disease Anemia labs in the am Iron from 03/20/22 noted to be low Start patient on 325mg PO BID Adjust as indicated Continue to trend labs (5) HTN (hypertension): Code(s): I10 - Essential (primary) hypertension Status: Chronic Assessment and Plan: BP is 144/42 Continue home amlodipine, clonidine, lasix, and spinolactone trend BP Adjust therapy as indicated (6) Hyperlipidemia: Code(s): E78.5 - Hyperlipidemia, unspecified Status: Acute Assessment and Plan: -continue with atorvastatin. (7) Gastroesophageal reflux disease: Code(s): K21.9 - Gastro-esophageal reflux disease without esophagitis Status: Acute Assessment and Plan: -continue with pantoprazole Time Spent With Patient Time with patient: Greater than 35 minutes Subjective Date/time seen: 04/08/22 Interval history: 11/05/22 0530/0945 Patient was a rapid response this morning. It was noted that she had a severe increase in oxygen demand. It was noted that she was 69% on 3.5L and was increased to 15LNC, and was sating 96%. Chest xray was performed and does show worsening disease. Lasix was given one time for possible fluid overload. Re-evaluation this morning at 9:45 a.m. patient was noted to have been weaned down to 5 L. patient stated that she has a cough and she has been get a lot up. Appearance was yellow greenish thick. Patient seems a little frustrated. She is very hard hearing it was hard to get review of systems however she did deny chest pain, nausea, vomiting, weakness or fatigue. She did state that she was in the middle of somewhere between weak and strong. Chest x-ray this morning showed persistent prominent right lower lung atelectasis and/or consolidation and moderate right pleural effusion diffuse right lung and left mid and lower lung infiltrates suggesting possibly pulmonary edema with pulmonary vascular congestion which has increased since prior study 04/07/22? 16:33 This is a 87-year-old female patient who is very hard of hearing and wears oxygen at 3 L per nasal cannula at home.? The patient is a very poor historian.? I was asking her questions and she was unable to answer.? She was able to say her name but not the month or where she is now.? The patient has a productive cough that is green mucus.? She has a history of end-stage renal disease on dialysis.? Dr. Diaz has been consulted.? The
--- NOTE | 2022-04-08 11:44 | PM.PNNEP ---
Progress Note: A&P Assessment and Plan (1) ESRD (end stage renal disease): Code(s): N18.6 - End stage renal disease Status: Acute Assessment and Plan: the patient has end-stage renal disease. Most likely this is due to diabetes and hypertension. She gets dialysis 3 times a week on Wednesdays and Fridays. she had dialysis yesterday and did well. 2.5L was removed. discussed with CRISTI Webber. (2) COVID: Code(s): U07.1 - COVID-19 Status: Acute Assessment and Plan: The patient has COVID. She swabbed positive in the Emergency room. She has oxygen at home [id number]/minute. Now she is at 5Liters/minute. She is on dexamethasone. She is also on traditional antibiotics in case there is a superimposed bacterial pneumonia cultures have been checked Oxygenation is a little bit worse. This might be progressive COVID pneumonia. Will follow this along. (3) Diabetes: Code(s): E11.9 - Type 2 diabetes mellitus without complications Status: Inactive Assessment and Plan: the patient is on Accu-Cheks and sliding-scale insulin per hospitalist. (4) HTN (hypertension): Code(s): I10 - Essential (primary) hypertension Status: Chronic Assessment and Plan: Blood pressure is a bit better right now. She is on amlodipine, clonidine, and spironolactone. Will add lisinopril. 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 She is getting Epogen (6) Renal osteodystrophy: Code(s): N25.0 - Renal osteodystrophy Status: Acute Assessment and Plan: phosphorus is good (7) Gastroesophageal reflux disease: Code(s): K21.9 - Gastro-esophageal reflux disease without esophagitis Status: Acute Assessment and Plan: the patient takes pantoprazole at home Subjective Date/time seen: 04/08/22 11:44 Interval history: Sofía is feeling better now. She had some shortness of breath earlier today. She was given a breathing treatment and some extra oxygen. Her blood pressure was high at the time and so they gave her her routine medications and the blood pressure came down. Review of Systems Cardiovascular: Cardiovascular: Reports no additional cardiovascular complaints Respiratory: Respiratory: Reports no additional respiratory complaints Gastrointestinal: Gastrointestinal: Reports no additional gastrointestinal complaints Genitourinary: Genitourinary: Reports no additional female genitourinary complaints Exam Narrative: WDWN in NAD skin no rash head ncat lungs Mild bilateral coarse breath sounds cor reg no rub abd BS+ nontender and soft ext no edema. Objective Data Vital Signs Vital Signs: Vital Signs - 24 hr 04/07/22 12:25 04/07/22 13:39 04/07/22 15:00 Temperature 36.6 C 37.2 C Pulse Rate 73 68 75 Respiratory Rate 22 H 18 20 Blood Pressure 168/47 H 160/47 H 170/50 H Pulse Oximetry 96 91 Oxygen Delivery Oxygen Flow Rate 04/07/22 15:00 04/07/22 16:00 04/07/22 15:12 Temperature Pulse Rate 79 75 Respiratory Rate Blood Pressure 163/52 H Pulse Oximetry Oxygen Delivery Oxygen Flow Rate 4 04/07/22 15:30 04/07/22 16:00 04/07/22 16:30 Temperature Pulse Rate 80 79 72 Respiratory Rate Blood Pressure 169/66 H 166/61 H 163/50 H Pulse Oximetry Oxygen Delivery Oxygen Flow Rate 04/07/22 17:00 04/07/22 17:30 04/07/22 17:57 Temperature 37.2 C Pulse Rate 78 85 76 Respiratory Rate 20 Blood Pressure 163/52 H 151/51 H 154/48 H Pulse Oximetry Oxygen Delivery Oxygen Flow Rate 04/07/22 21:34 04/07/22 20:00 04/07/22 20:00 Temperature 36.7 C Pulse Rate 77 75 Respiratory Rate 22 H Blood Pressure 155/43 H Pulse Oximetry 90 90 Oxygen Delivery Nasal Cannula Oxygen Flow Rate
[2022-04-08] MEDS: FUROSEMIDE 80 MG TABLET PO (18:40)
[2022-04-08] MEDS: ATORVASTATIN 20 MG TABLET PO (21:01)
[2022-04-09] VITALS (13 sets, daily range): BP systolic 109–151; BP diastolic 33–50; PULSE 56–83; RESP 16–23; TEMP 36.6–36.7; O2SAT 95–97
[2022-04-09] MEDS: ALBUTEROL SULFATE (*SP) AEROSOL 1 PUFF 2 PUFF INHALATION ×5 (02:49→21:01)
[2022-04-09 06:33] LABS: Basophils Percent Auto 0.2 % (0.2-1.2); Hematocrit 24.5 % (37.0-47.0); Hemoglobin 7.3 g/dL (12.0-15.0); Immature Granulocyte Absolute 0.11 K/mm3 (0.00-0.031); Immature Granulocyte Percent A 1.3 % (0-0.5); Lymphocytes Percent Auto 4.6 % (18.3-44.2); Mean Corpuscular HGB Conc 29.8 g/dl (32-36); Mean Corpuscular Volume 97.2 fl (80-100); Mean Platelet Volume 10.2 fl (7.4-10.4); Monocytes Absolute Auto 0.7 K/mm3 (0.1-0.6); Monocytes Percent Auto 7.5 % (2.6-8.5); Neutrophils Absolute Auto 7.5 K/mm3 (1.3-6.7); Neutrophils Percent Auto 86.4 % (45.5-73.1); Platelet Count Result 408 k/mm3 (150-375); Red Blood Count 2.52 M/mm3 (4.2-5.4); Red Cell Distribution Width 16.3 % (11.5-14.5); White Blood Count 8.6 K/mm3 (4.5-10.0)
[2022-04-09 06:44] LABS: Alanine Aminotransferase 30 U/L (6-35); Albumin Level 3.6 g/dL (3.5-5.1); Alkaline Phosphatase 115 U/L (38-126); Anion Gap 13 mmol/L (8-16); Aspartate Amino Transferase 32 U/L (14-36); Bilirubin,Total 0.4 mg/dL (0.2-1.3); Blood Urea Nitrogen 57 mg/dL (7-17); Calcium 8.6 mg/dL (8.4-10.2); Carbon Dioxide 30 mmol/L (22-30); Chloride 90 mmol/L (98-107); Estimated CRCL calculation 11 ml/min; Estimated Glomerular Filt Rate 12; Glucose 139 mg/dL (65-110); Magnesium 2.2 mg/dL (1.6-2.3); Phosphorus 4.2 mg/dL (2.5-4.5); Potassium 4.4 mmol/L (3.4-5.0); Sodium 133 mmol/L (137-145)
[2022-04-09 06:45] LABS: INR 1.2; Prothrombin Time 14.6 Seconds (11.1-14.7)
[2022-04-09 06:51] LABS: Transferrin 162 mg/dL (206-381)
[2022-04-09 07:04] LABS: Iron 19 ug/dL (37-170)
[2022-04-09 07:14] LABS: Percent Iron Saturation 9 % (20-50)
[2022-04-09 07:50] LABS: Folic Acid 8.8 ng/mL (2.76->20)
[2022-04-09 08:25] LABS: Anisocytosis 2+ (NORMAL); Hypochromasia 1+ (NORMAL); Platelet Estimate Increased (Adequate); Poikilocytosis 1+ (NORMAL)
[2022-04-09 08:26] LABS: Large Platelets Present; Ovalocytes 1+ (NORMAL); Schistocytes None Seen (NORMAL)
[2022-04-09] MEDS: LATANOPROST 0.005% OP SOLN 2.5 ML BTL 1 DROP EACH EYE (10:08)
[2022-04-09] MEDS: LEVOTHYROXINE SODIUM 100 MCG TABLET PO (10:10)
[2022-04-09] MEDS: SPIRONOLACTONE 12.5 MG TABLET PO (10:10)
[2022-04-09] MEDS: cloNIDine HCL 0.1 MG TABLET PO ×3 (10:10→17:19)
[2022-04-09] MEDS: amLODIPine BESYLATE 5 MG TABLET 10 MG PO (10:11)
[2022-04-09] MEDS: PANTOPRAZOLE 40 MG TABLET PO (10:11)
[2022-04-09] MEDS: FUROSEMIDE 80 MG TABLET PO ×2 (10:11→17:20)
[2022-04-09] MEDS: lisinopriL 20 MG TABLET PO (10:11)
[2022-04-09] MEDS: HEPARIN SODIUM 5,000 UNITS/ML VIAL 5000 UNITS SUB-Q ×2 (10:11→20:50)
[2022-04-09] MEDS: CEFEPIME 0.5 GM in DEXTROSE 5% IN WATER 50 ML IVPB (10:24)
--- NOTE | 2022-04-09 10:26 | PM.PNNEP ---
Progress Note: A&P Assessment and Plan (1) ESRD (end stage renal disease): Code(s): N18.6 - End stage renal disease Status: Acute Assessment and Plan: the patient has end-stage renal disease. Most likely this is due to diabetes and hypertension. She gets dialysis 3 times a week on Wednesdays and Fridays. she is due for dialysis tomorrow. (2) COVID: Code(s): U07.1 - COVID-19 Status: Acute Assessment and Plan: The patient has COVID. She swabbed positive in the Emergency room. She has oxygen at home [id number]/minute. Now she is at 5Liters/minute. She is on dexamethasone. She is also on traditional antibiotics in case there is a superimposed bacterial pneumonia cultures have been checked Oxygenation is a little bit worse. This might be progressive COVID pneumonia. Will follow this along. (3) Diabetes: Code(s): E11.9 - Type 2 diabetes mellitus without complications Status: Inactive Assessment and Plan: the patient is on Accu-Cheks and sliding-scale insulin per hospitalist. (4) HTN (hypertension): Code(s): I10 - Essential (primary) hypertension Status: Chronic Assessment and Plan: Blood pressure is Ranging between 130 and 180. She is on amlodipine, clonidine, Lisinopril, and spironolactone. lisinopril was just added yesterday. Will give this another data soak in. 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 She is getting Epogen (6) Renal osteodystrophy: Code(s): N25.0 - Renal osteodystrophy Status: Acute Assessment and Plan: phosphorus is good (7) Gastroesophageal reflux disease: Code(s): K21.9 - Gastro-esophageal reflux disease without esophagitis Status: Acute Assessment and Plan: the patient takes pantoprazole at home Subjective Date/time seen: 04/09/22 10:26 Interval history: Sofía is Feeling and looking much better today. She is in much better spirits. She is eating breakfast Exam Narrative: WDWN in NAD skin no rash head ncat lungs Mild bilateral coarse breath sounds cor reg no rub or gallop abd BS+ nontender and soft ext no edema. Objective Data Vital Signs Vital Signs: Vital Signs - 24 hr 04/08/22 12:00 04/08/22 16:00 04/08/22 20:00 Temperature Pulse Rate 73 65 64 Respiratory Rate Blood Pressure Pulse Oximetry Oxygen Delivery Oxygen Flow Rate 04/08/22 21:00 04/08/22 22:00 04/09/22 00:00 Temperature 36.3 C L Pulse Rate 63 56 L Respiratory Rate 20 Blood Pressure 136/42 L Pulse Oximetry 92 98 Oxygen Delivery Nasal Cannula Oxygen Flow Rate 5 04/09/22 04:00 04/08/22 22:42 04/08/22 22:42 Temperature Pulse Rate 57 L 83 83 Respiratory Rate 22 H Blood Pressure Pulse Oximetry 92 Oxygen Delivery Heliox Oxygen Flow Rate 5 04/08/22 22:59 04/09/22 02:49 04/09/22 03:00 Temperature Pulse Rate 80 83 81 Respiratory Rate 18 18 16 Blood Pressure Pulse Oximetry Oxygen Delivery Oxygen Flow Rate 04/09/22 06:00 Temperature 36.6 C Pulse Rate 63 Respiratory Rate 16 Blood Pressure 151/50 H Pulse Oximetry 95 Oxygen Delivery Oxygen Flow Rate Intake/Output Intake/Output: Intake & Output 04/06/22 04/07/22 04/08/22 04/09/22 23:59 23:59 23:59 22:59 Intake Total 800 1280 660 Output Total 2478 Balance -1678 1280 660 Meds/Results Medications: Active Medications Generic Name Dose Route Start Last Admin Trade Name Freq PRN Reason Stop Dose Admin Albuterol 2 puff 04/07/22 20:00 04/09/22 02:49 Albuterol Sulfate (*Sp) Aerosol 1 Puff INHALATION 2 puff Q6HRT LAUREN Administration Amlodipine Besylate 10 mg 04/08/22 09:00 04/09/22 10:11 Amlodipine Besylate 5 Mg Tablet PO 10 mg
--- NOTE | 2022-04-09 10:30 | PM.IMPN ---
Progress Note: A&P Assessment and Plan (1) COVID: Code(s): U07.1 - COVID-19 Status: Acute Assessment and Plan: Covid positive in the ED Chest xray indicates extensive right airspace disease compatible with PNA, right pleural effusion Repeat xray 04/08/2022 shows edema or consolidation that is worse since 04/07/22 Albuterol Isolation precautions Supplemental oxygen, wean to maintain saturations >90% Continue Decadron Unable to get remdesivir due to renal function Repeat Echo ordered Blood cultures pending Sputum culture ordered and pending Trend respiratory status Adjust therapy as indicated (2) Pneumonia: Code(s): J18.9 - Pneumonia, unspecified organism Status: Acute Assessment and Plan: See above Cefepime and vancomycin on board (3) ESRD (end stage renal disease): Code(s): N18.6 - End stage renal disease Status: Acute Assessment and Plan: Current BUN/Cr 57/3.60 Dialysis last on 04/07/22 with a little more than 2400ml Continue to trend labs Dr. Diaz has been consulted. 3 times a week on Wednesdays and Fridays. (4) Anemia in ESRD (end-stage renal disease): Code(s): N18.6 - End stage renal disease; D63.1 - Anemia in chronic kidney disease Status: Acute Assessment and Plan: Current H&H 7.3/24.5 Combination of iron and chronic disease anemia Anemia labs in the am Iron from 03/20/22 noted to be low Start patient on 325mg PO BID Adjust as indicated Continue to trend labs (5) HTN (hypertension): Code(s): I10 - Essential (primary) hypertension Status: Chronic Assessment and Plan: BP is 151/50 Continue home amlodipine, clonidine, lasix, and spinolactone trend BP Adjust therapy as indicated (6) Hyperlipidemia: Code(s): E78.5 - Hyperlipidemia, unspecified Status: Acute Assessment and Plan: -continue with atorvastatin. (7) Gastroesophageal reflux disease: Code(s): K21.9 - Gastro-esophageal reflux disease without esophagitis Status: Acute Assessment and Plan: -continue with pantoprazole Time Spent With Patient Time with patient: Greater than 35 minutes Subjective Date/time seen: 04/09/22 1030 Interval history: 04/09/22 1030 Patient states that she feels better today. She still remains on the 4 L however can be titrated down as her oxygen saturations 95%. She also stated that her cough is better but still does have a little bit of a cough. Her biggest complaint was that she is having some generalized abdominal pain bilaterally in the lower quadrants. She denies any chest pain, shortness of breath, nausea, vomiting, diarrhea, constipation, weakness or fatigue. 04/08/22 0530/0945 Patient was a rapid response this morning. It was noted that she had a severe increase in oxygen demand. It was noted that she was 69% on 3.5L and was increased to 15LNC, and was sating 96%. Chest xray was performed and does show worsening disease. Lasix was given one time for possible fluid overload. Re-evaluation this morning at 9:45 a.m. patient was noted to have been weaned down to 5 L. patient stated that she has a cough and she has been get a lot up. Appearance was yellow greenish thick. Patient seems a little frustrated. She is very hard hearing it was hard to get review of systems however she did deny chest pain, nausea, vomiting, weakness or fatigue. She did state that she was in the middle of somewhere between weak and strong. Chest x-ray this morning showed persistent prominent right lower lung atelectasis and/or consolidation and moderate right pleural effusion diffuse right lung and left mid and lower lung infiltrates suggesting possibly pulmonary edema with pulmonary vascular congestion which has increased since prior study 04/07/22
--- NOTE | 2022-04-09 10:30 | P.PNIM_ITS ---
Progress Note: A&P Assessment and Plan (1) COVID: Code(s): U07.1 - COVID-19 Status: Acute Assessment and Plan: * Covid positive in the ED * Chest xray indicates extensive right airspace disease compatible with PNA, right pleural effusion * Repeat xray 04/08/2022 shows edema or consolidation that is worse since 04/07/22 * Albuterol * Isolation precautions * Supplemental oxygen, wean to maintain saturations >90% * Continue Decadron * Unable to get remdesivir due to renal function * Repeat Echo ordered * Blood cultures pending * Sputum culture ordered and pending * Trend respiratory status * Adjust therapy as indicated (2) Pneumonia: Code(s): J18.9 - Pneumonia, unspecified organism Status: Acute Assessment and Plan: * See above * Cefepime and vancomycin on board (3) ESRD (end stage renal disease): Code(s): N18.6 - End stage renal disease Status: Acute Assessment and Plan: * Current BUN/Cr 57/3.60 * Dialysis last on 04/07/22 with a little more than 2400ml * Continue to trend labs * Dr. Diaz has been consulted. * 3 times a week on Wednesdays and Fridays. (4) Anemia in ESRD (end-stage renal disease): Code(s): N18.6 - End stage renal disease; D63.1 - Anemia in chronic kidney disease Status: Acute Assessment and Plan: * Current H&H 7.3/24.5 * Combination of iron and chronic disease anemia * Anemia labs in the am * Iron from 03/20/22 noted to be low * Start patient on 325mg PO BID * Adjust as indicated * Continue to trend labs (5) HTN (hypertension): Code(s): I10 - Essential (primary) hypertension Status: Chronic Assessment and Plan: * BP is 151/50 * Continue home amlodipine, clonidine, lasix, and spinolactone * trend BP * Adjust therapy as indicated (6) Hyperlipidemia: Code(s): E78.5 - Hyperlipidemia, unspecified Status: Acute Assessment and Plan: -continue with atorvastatin. (7) Gastroesophageal reflux disease: Code(s): K21.9 - Gastro-esophageal reflux disease without esophagitis Status: Acute Assessment and Plan: -continue with pantoprazole Time Spent With Patient Time with patient: Greater than 35 minutes Subjective Date/time seen: 04/09/22 103 Interval history: 04/09/221029 Patient states that she feels better today. She still remains on the 4 L however can be titrated down as her oxygen saturations 95%. She also stated carol t her cough is better but still does have a little bit of a cough. Her biggest complaint was that she is having some generalized abdominal pain bilaterally in the lower quadrants. She denies any chest pain, shortness of breath, nausea, vomiting, diarrhea, constipation, weakness or fatigue. 04/08/22 0530/0945 Patient was a rapid response this morning. It was noted that she had a severe increase in oxygen demand. It was noted that she was 69% on 3.5L and was increased to 15LNC, and was sating 96%. Chest xray was performed and does show worsening disease. Lasix was given one time for possible fluid overload. Re- evaluation this morning at 9:45 a.m. patient was noted to have been weaned down to 5 L. patient stated that she has a coug
[2022-04-09] MEDS: FERROUS SULFATE 324 MG TABLET PO ×2 (14:13→17:20)
[2022-04-09] MEDS: ATORVASTATIN 20 MG TABLET PO (20:50)
[2022-04-09] MEDS: IPRATROPIUM BR 0.02% INH SOLN 0.5 MG/2.5 ML VIAL INHALATION ×2 (21:01→23:33)
[2022-04-09] MEDS: ALBUTEROL SULFATE NEB 2.5 MG/3 ML INH INHALATION ×2 (21:01→23:33)
[2022-04-10] VITALS (33 sets, daily range): BP systolic 116–140; BP diastolic 44–60; PULSE 60–77; RESP 16–26; TEMP 36.6–37.2; O2SAT 89–95
[2022-04-10] MEDS: ALBUTEROL SULFATE (*SP) AEROSOL 1 PUFF 2 PUFF INHALATION ×2 (02:30→09:10)
[2022-04-10] MEDS: ALBUTEROL SULFATE NEB 2.5 MG/3 ML INH INHALATION ×3 (04:20→21:41)
[2022-04-10] MEDS: IPRATROPIUM BR 0.02% INH SOLN 0.5 MG/2.5 ML VIAL INHALATION ×3 (05:21→21:42)
[2022-04-10 05:30] LABS: Basophils Percent Auto 0.1 % (0.2-1.2); Eosinophils Percent Auto 0.1 % (0-4.4); Hematocrit 22.9 % (37.0-47.0); Immature Granulocyte Percent A 2.2 % (0-0.5); Lymphocytes Absolute Auto 0.58 K/mm3 (0.9-3.2); Lymphocytes Percent Auto 6.3 % (18.3-44.2); Mean Corpuscular HGB Conc 29.7 g/dl (32-36); Mean Corpuscular Hemoglobin 28.8 pg (26-34); Mean Platelet Volume 10.3 fl (7.4-10.4); Monocytes Absolute Auto 0.8 K/mm3 (0.1-0.6); Monocytes Percent Auto 8.7 % (2.6-8.5); Neutrophils Absolute Auto 7.6 K/mm3 (1.3-6.7); Neutrophils Percent Auto 82.6 % (45.5-73.1); Platelet Count Result 409 k/mm3 (150-375); Red Blood Count 2.36 M/mm3 (4.2-5.4); White Blood Count 9.2 K/mm3 (4.5-10.0)
[2022-04-10 05:34] LABS: INR 1.1; Prothrombin Time 14.1 Seconds (11.1-14.7)
[2022-04-10 05:46] LABS: Alanine Aminotransferase 39 U/L (6-35); Albumin Level 3.4 g/dL (3.5-5.1); Alkaline Phosphatase 81 U/L (38-126); Anion Gap 15 mmol/L (8-16); Aspartate Amino Transferase 55 U/L (14-36); Bilirubin,Total 0.3 mg/dL (0.2-1.3); Blood Urea Nitrogen 71 mg/dL (7-17); CRP 8.5 mg/dL (<1.0); Carbon Dioxide 29 mmol/L (22-30); Chloride 87 mmol/L (98-107); Estimated CRCL calculation 9 ml/min; Estimated Glomerular Filt Rate 10; Glucose 131 mg/dL (65-110); Lactate Dehydrogenase 131 U/L (120-246); Sodium 131 mmol/L (137-145)
[2022-04-10 05:52] LABS: Hemoglobin 6.8 g/dL (12.0-15.0)
[2022-04-10] MEDS: LEVOTHYROXINE SODIUM 100 MCG TABLET PO (06:18)
[2022-04-10 07:00] LABS: Phosphorus 3.9 mg/dL (2.5-4.5)
[2022-04-10] MEDS: CEFEPIME 0.5 GM in DEXTROSE 5% IN WATER 50 ML IVPB (08:33)
[2022-04-10] MEDS: FERROUS SULFATE 324 MG TABLET PO ×2 (08:34→16:58)
[2022-04-10] MEDS: PANTOPRAZOLE 40 MG TABLET PO (08:35)
[2022-04-10] MEDS: FUROSEMIDE 80 MG TABLET PO ×2 (08:35→21:27)
[2022-04-10] MEDS: LATANOPROST 0.005% OP SOLN 2.5 ML BTL 1 DROP EACH EYE (08:35)
[2022-04-10] MEDS: ERGOCALCIFEROL 50,000 UNITS CAPSULE 50000 UNITS PO (08:35)
[2022-04-10] MEDS: SPIRONOLACTONE 12.5 MG TABLET PO (08:37)
[2022-04-10] MEDS: amLODIPine BESYLATE 5 MG TABLET 10 MG PO (08:43)
[2022-04-10] MEDS: cloNIDine HCL 0.1 MG TABLET PO ×3 (08:43→21:27)
[2022-04-10] MEDS: lisinopriL 20 MG TABLET PO (08:43)
--- NOTE | 2022-04-10 10:00 | P.PNIM_ITS ---
Progress Note: A&P Assessment and Plan (1) COVID: Code(s): U07.1 - COVID-19 Status: Acute Assessment and Plan: * Covid positive in the ED * THIS IS AN ACUTE INFECTION * Chest xray indicates extensive right airspace disease compatible with PNA, right pleural effusion * Repeat xray 04/08/2022 shows edema or consolidation that is worse since 04/07/22 * Albuterol * Isolation precautions * Supplemental oxygen, wean to maintain saturations >90% * Continue Decadron * Unable to get remdesivir due to renal function * Repeat Echo EF of 60-65% with a grade 1 diastolic dysfunction * Blood cultures NGTD * Neb treatments * Sputum culture was not from the lower resp track * Trend respiratory status * Adjust therapy as indicated (2) Pneumonia: Code(s): J18.9 - Pneumonia, unspecified organism Status: Acute Assessment and Plan: * See above * Cefepime and vancomycin on board (3) ESRD (end stage renal disease): Code(s): N18.6 - End stage renal disease Status: Acute Assessment and Plan: * Current BUN/Cr 71/4.40 * Dialysis last on 04/07/22 with a little more than 2400ml * Probably dialysis today * Continue to trend labs * Dr. Diaz has been consulted. * 3 times a week on Wednesdays and Fridays. (4) Anemia in ESRD (end-stage renal disease): Code(s): N18.6 - End stage renal disease; D63.1 - Anemia in chronic kidney disease Status: Acute Assessment and Plan: * Current H&H 6.8/27.9 * Combination of iron and chronic disease anemia * Anemia labs indicated low iron * Iron from 03/20/22 noted to be low * Start patient on 325mg PO BID * Transfuse one unit * Adjust as indicated * Continue to trend labs (5) HTN (hypertension): Code(s): I10 - Essential (primary) hypertension Status: Chronic Assessment and Plan: * BP is 130/48 * Continue home amlodipine, clonidine, lasix, and spinolactone * trend BP * Adjust therapy as indicated (6) Hyperlipidemia: Code(s): E78.5 - Hyperlipidemia, unspecified Status: Acute Assessment and Plan: -continue with atorvastatin. (7) Gastroesophageal reflux disease: Code(s): K21.9 - Gastro-esophageal reflux disease without esophagitis Status: Acute Assessment and Plan: -continue with pantoprazole Time Spent With Patient Time with patient: Greater than 35 minutes Subjective Date/time seen: 04/10/22 1000 Interval history: 04/10/22 1000 Patient stated that she is feeling better today. She did state that her breathing is still rough. She denies any chest pain, shortness a breath, nausea, vomiting, diarrhea, constipation, lightheadedness or dizziness. Patient did state that she was still weak but feels okay. She is to have dialysis today H&H was low and will give her 1 unit of blood. She still remains on the 4 L of oxygen 04/09/22 1030 Patient states that she feels better today. She still remains on the 4 L however can be titrated down as her oxygen saturations 95%. She also stated that her cough is better but still does have a little bit of a cough. Her biggest complaint was that she is having some generalized abdominal pain bilaterally in the lo
--- NOTE | 2022-04-10 10:00 | PM.IMPN ---
Progress Note: A&P Assessment and Plan (1) COVID: Code(s): U07.1 - COVID-19 Status: Acute Assessment and Plan: Covid positive in the ED THIS IS AN ACUTE INFECTION Chest xray indicates extensive right airspace disease compatible with PNA, right pleural effusion Repeat xray 04/08/2022 shows edema or consolidation that is worse since 04/07/22 Albuterol Isolation precautions Supplemental oxygen, wean to maintain saturations >90% Continue Decadron Unable to get remdesivir due to renal function Repeat Echo EF of 60-65% with a grade 1 diastolic dysfunction Blood cultures NGTD Neb treatments Sputum culture was not from the lower resp track Trend respiratory status Adjust therapy as indicated (2) Pneumonia: Code(s): J18.9 - Pneumonia, unspecified organism Status: Acute Assessment and Plan: See above Cefepime and vancomycin on board (3) ESRD (end stage renal disease): Code(s): N18.6 - End stage renal disease Status: Acute Assessment and Plan: Current BUN/Cr 71/4.40 Dialysis last on 04/07/22 with a little more than 2400ml Probably dialysis today Continue to trend labs Dr. Diaz has been consulted. 3 times a week on Wednesdays and Fridays. (4) Anemia in ESRD (end-stage renal disease): Code(s): N18.6 - End stage renal disease; D63.1 - Anemia in chronic kidney disease Status: Acute Assessment and Plan: Current H&H 6.8/27.9 Combination of iron and chronic disease anemia Anemia labs indicated low iron Iron from 03/20/22 noted to be low Start patient on 325mg PO BID Transfuse one unit Adjust as indicated Continue to trend labs (5) HTN (hypertension): Code(s): I10 - Essential (primary) hypertension Status: Chronic Assessment and Plan: BP is 130/48 Continue home amlodipine, clonidine, lasix, and spinolactone trend BP Adjust therapy as indicated (6) Hyperlipidemia: Code(s): E78.5 - Hyperlipidemia, unspecified Status: Acute Assessment and Plan: -continue with atorvastatin. (7) Gastroesophageal reflux disease: Code(s): K21.9 - Gastro-esophageal reflux disease without esophagitis Status: Acute Assessment and Plan: -continue with pantoprazole Time Spent With Patient Time with patient: Greater than 35 minutes Subjective Date/time seen: 04/10/22 1000 Interval history: 04/10/22 1000 Patient stated that she is feeling better today. She did state that her breathing is still rough. She denies any chest pain, shortness a breath, nausea, vomiting, diarrhea, constipation, lightheadedness or dizziness. Patient did state that she was still weak but feels okay. She is to have dialysis today H&H was low and will give her 1 unit of blood. She still remains on the 4 L of oxygen 04/09/22 1030 Patient states that she feels better today. She still remains on the 4 L however can be titrated down as her oxygen saturations 95%. She also stated that her cough is better but still does have a little bit of a cough. Her biggest complaint was that she is having some generalized abdominal pain bilaterally in the lower quadrants. She denies any chest pain, shortness of breath, nausea, vomiting, diarrhea, constipation, weakness or fatigue. 04/08/22 0530/0945 Patient was a rapid response this morning. It was noted that she had a severe increase in oxygen demand. It was noted that she was 69% on 3.5L and was increased to 15LNC, and was sating 96%. Chest xray was performed and does show worsening disease. Lasix was given one time for possible fluid overload. Re-evaluation this morning at 9:45 a.m. patient was noted to have been weaned down to 5 L. patient stated that she has a cough and she has been get a lot up. Appearance was yellow greenish thick.
[2022-04-10] MEDS: SODIUM CHLORIDE 0.9% IV 250 ML 30 ML IV CONT (10:18)
--- NOTE | 2022-04-10 18:05 | PC.NURSE ---
To Dialysis via bed.
--- NOTE | 2022-04-10 18:31 | PM.PNNEP ---
Progress Note: A&P Assessment and Plan (1) ESRD (end stage renal disease): Code(s): N18.6 - End stage renal disease Status: Acute Assessment and Plan: HD today continue M/W/F dialysis schedule follow electrolytes, volume status, and clearance (2) COVID: Code(s): U07.1 - COVID-19 Status: Acute Assessment and Plan: already on chronic oxygen therapy at baseline on dexamethasone follow culture data -- on empiric antibiotics follow respiratory status (3) Erythropoietin deficiency anemia: Code(s): D63.1 - Anemia in chronic kidney disease Status: Chronic Assessment and Plan: partly due to ESRD however, has had recurrent issues with this in the past (see previous hospitalizations) PRBC transfusion per protocol Epogen with HD follow trend of H/H (4) HTN (hypertension): Code(s): I10 - Essential (primary) hypertension Status: Chronic Assessment and Plan: doing reasonably well at this time on amlodipine, clonidine, lisinopril, and spironolactone follow trend of hemodynamics (5) Diabetes: Code(s): E11.9 - Type 2 diabetes mellitus without complications Status: Chronic Assessment and Plan: follow Accu-Cheks on sliding-scale insulin Will continue to follow. Subjective Date/time seen: 04/10/22 18:31 Chart reviewed -- assuming care from Dr. Diaz; tolerating dialysis treatment at the time of my visit (seen on HD at 6:15PM); respiratory status seems relatively stable but she says it is still not back to her baseline; low H/H noted by AM labs as well. Exam Narrative: General: elderly female in NAD Heart: normal S1 and S2; no rub Lungs: coarse breath sounds Abdomen: soft, nontender, nondistended, positive bowel sounds Extremities: no cyanosis or clubbing; no edema Skin: warm and dry Objective Data Vital Signs Vital Signs: Vital Signs Temp Pulse Resp BP Pulse Ox O2 Del Method O2 Flow Rate 04/10/22 18:30 73 138/56 L 04/10/22 18:00 4.5 04/10/22 18:00 37.2 C 77 16 132/57 L 04/10/22 18:10 72 138/57 L 04/10/22 16:00 74 04/10/22 15:35 18 04/10/22 15:25 72 18 04/10/22 14:34 36.6 C 74 26 H 130/48 L 91 04/10/22 13:20 36.6 C 68 18 120/52 L 91 04/10/22 13:20 36.6 C 68 18 120/52 L 91 04/10/22 12:40 36.6 C 66 20 116/52 L 89 L 04/10/22 12:00 75 04/10/22 11:38 Nasal Cannula 4 04/10/22 11:51 Nasal Cannula 4 04/10/22 11:40 36.6 C 65 18 123/54 L 93 04/10/22 08:00 63 04/10/22 08:37 69 18 90 Nasal Cannula 4 04/10/22 10:40 36.6 C 69 18 116/54 L 90 04/10/22 10:25 36.6 C 65 18 127/53 L 90 04/10/22 09:11 92 Nasal Cannula 4 04/10/22 06:22 36.6 C 67 18 128/53 L 95 04/10/22 02:30 67 18 04/10/22 04:00 67 04/10/22 00:00 68 04/09/22 21:02 60 18 04/09/22 23:33 63 18 04/09/22 23:33 63 96 Nasal Cannula 3 04/09/22 20:00 61 04/09/22 20:57 36.6 C 63 18 131/46 L 96 Intake/Output Intake/Output: Intake & Output 04/08/22 04/09/22 04/09/22 04/10/22 00:59 00:59 23:59 23:59 Intake Total 1010 Output Total Balance 1010 Meds/Results Medications: Active Medications Generic Name Dose Route Start Last Admin Trade Name Freq PRN Reason Stop Dose Admin Albuterol 2.5 mg 04/09/22 16:00 04/10/22 15:25 Albuterol Sulfate Neb 2.5 Mg/3 Ml Inh INHALATION 2.5 mg Q4HRT LAUREN Administration Amlodipine Besylate 10 mg 04/08/22 09:00 04/10/22 08:43 Amlodipine Besylate 5 Mg Tablet PO 10 mg QAM LAUREN Administration Atorvastatin Calcium 20 mg 04/07/22 21:00 04/09/22 20:50 Atorvastatin 20 Mg Tablet PO 20 mg HS LAUREN Administration Clonidine HCl 0.1 mg 04/07/22 18:00 04/10/22 12:56 Clonidine Hcl 0.1 Mg Tablet PO 0.1 mg TID LAUREN Administration
[2022-04-10] MEDS: EPOETIN ALFA-EPBX 10,000 UNITS/ML VIAL 10000 UNITS IV PUSH (18:40)
[2022-04-10] MEDS: SODIUM CHLORIDE 0.9% IV 1,000 ML 999 ML IV CONT (18:40)
[2022-04-10] MEDS: ATORVASTATIN 20 MG TABLET PO (21:27)
[2022-04-10 23:19] LABS: Vancomycin Random < 5.0 ug/mL (10-20)
[2022-04-11] VITALS (15 sets, daily range): BP systolic 118–154; BP diastolic 48–50; PULSE 59–76; RESP 18–20; TEMP 36.6–36.9; O2SAT 90–99
[2022-04-11] MEDS: IPRATROPIUM BR 0.02% INH SOLN 0.5 MG/2.5 ML VIAL INHALATION ×4 (03:11→15:40)
[2022-04-11] MEDS: ALBUTEROL SULFATE NEB 2.5 MG/3 ML INH INHALATION ×4 (03:11→15:39)
[2022-04-11] MEDS: LEVOTHYROXINE SODIUM 100 MCG TABLET PO (05:24)
[2022-04-11 05:41] LABS: Basophils Percent Auto 0.2 % (0.2-1.2); Eosinophils Percent Auto 0.1 % (0-4.4); Hematocrit 26.7 % (37.0-47.0); Hemoglobin 8.3 g/dL (12.0-15.0); Immature Granulocyte Absolute 0.48 K/mm3 (0.00-0.031); Immature Granulocyte Percent A 5.4 % (0-0.5); Lymphocytes Absolute Auto 0.83 K/mm3 (0.9-3.2); Lymphocytes Percent Auto 9.3 % (18.3-44.2); Mean Corpuscular HGB Conc 31.1 g/dl (32-36); Mean Corpuscular Hemoglobin 28.4 pg (26-34); Mean Corpuscular Volume 91.4 fl (80-100); Mean Platelet Volume 10.6 fl (7.4-10.4); Monocytes Absolute Auto 1.1 K/mm3 (0.1-0.6); Monocytes Percent Auto 12.3 % (2.6-8.5); Neutrophils Absolute Auto 6.5 K/mm3 (1.3-6.7); Neutrophils Percent Auto 72.7 % (45.5-73.1); Platelet Count Result 382 k/mm3 (150-375); Red Blood Count 2.92 M/mm3 (4.2-5.4); Red Cell Distribution Width 17.8 % (11.5-14.5); White Blood Count 8.9 K/mm3 (4.5-10.0)
[2022-04-11 05:56] LABS: INR 1.1; Prothrombin Time 13.9 Seconds (11.1-14.7)
[2022-04-11 06:09] LABS: Alanine Aminotransferase 35 U/L (6-35); Albumin Level 3.4 g/dL (3.5-5.1); Alkaline Phosphatase 82 U/L (38-126); Anion Gap 10 mmol/L (8-16); Aspartate Amino Transferase 44 U/L (14-36); Bilirubin,Total 0.3 mg/dL (0.2-1.3); Blood Urea Nitrogen 39 mg/dL (7-17); Calcium 8.1 mg/dL (8.4-10.2); Carbon Dioxide 34 mmol/L (22-30); Chloride 92 mmol/L (98-107); Estimated CRCL calculation 15 ml/min; Estimated Glomerular Filt Rate 17; Glucose 111 mg/dL (65-110); Sodium 136 mmol/L (137-145)
[2022-04-11 06:13] LABS: Anisocytosis 1+ (NORMAL); Hypochromasia 1+ (NORMAL); Ovalocytes 1+ (NORMAL); Platelet Estimate Adequate (Adequate)
[2022-04-11 06:32] LABS: Schistocytes None Seen (NORMAL)
--- NOTE | 2022-04-11 07:38 | P.PNIM_ITS ---
Progress Note: A&P Assessment and Plan (1) COVID: Code(s): U07.1 - COVID-19 Status: Acute Assessment and Plan: * Covid positive in the ED * THIS IS AN ACUTE INFECTION * Chest xray indicates extensive right airspace disease compatible with PNA, right pleural effusion * Repeat xray 04/08/2022 shows edema or consolidation that is worse since 04/07/22 * Albuterol * Isolation precautions * Supplemental oxygen, wean to maintain saturations >90% * Continue Decadron * Unable to get remdesivir due to renal function * Repeat Echo EF of 60-65% with a grade 1 diastolic dysfunction * Blood cultures NGTD * Neb treatments * Sputum culture was not from the lower resp track * Trend respiratory status * Adjust therapy as indicated (2) Pneumonia: Code(s): J18.9 - Pneumonia, unspecified organism Status: Acute Assessment and Plan: * See above * Cefepime and vancomycin on board (3) ESRD (end stage renal disease): Code(s): N18.6 - End stage renal disease Status: Acute Assessment and Plan: * Current BUN/Cr 39/2.60 * Dialysis last on 04/10/22 with a little more than 2000ml * Probably dialysis today * Continue to trend labs * Dr. Diaz has been consulted. * 3 times a week on Wednesdays and Fridays. (4) Anemia in ESRD (end-stage renal disease): Code(s): N18.6 - End stage renal disease; D63.1 - Anemia in chronic kidney disease Status: Acute Assessment and Plan: * Current H&H 8.3/26.7 * Combination of iron and chronic disease anemia * Anemia labs indicated low iron * Iron from 03/20/22 noted to be low * Start patient on 325mg PO BID * Transfuse one unit * Adjust as indicated * Continue to trend labs (5) HTN (hypertension): Code(s): I10 - Essential (primary) hypertension Status: Chronic Assessment and Plan: * BP is 154/48 * Continue home amlodipine, clonidine, Lasix, and spironolactone * trend BP * Adjust therapy as indicated (6) Hyperlipidemia: Code(s): E78.5 - Hyperlipidemia, unspecified Status: Acute Assessment and Plan: -continue with atorvastatin. (7) Gastroesophageal reflux disease: Code(s): K21.9 - Gastro-esophageal reflux disease without esophagitis Status: Acute Assessment and Plan: -continue with pantoprazole Time Spent With Patient Time with patient: Greater than 35 minutes Subjective Date/time seen: 04/11/22 07:38 Interval history: 04/11/22 04/10/22 1000 Patient stated that she is feeling better today. She did state that her breathing is still rough. She denies any chest pain, shortness a breath, nausea, vomiting, diarrhea, constipation, lightheadedness or dizziness. Patient did state that she was still weak but feels okay. She is to have dialysis today H&H was low and will give her 1 unit of blood. She still remains on the 4 L of oxygen 04/09/22 1030 Patient states that she feels better today. She still remains on the 4 L however can be titrated down as her oxygen saturations 95%. She also stated that her cough is better but still does have a little bit of a cough. Her biggest complaint was that she is having some generalized abdo
--- NOTE | 2022-04-11 07:38 | PM.IMPN ---
Progress Note: A&P Assessment and Plan (1) COVID: Code(s): U07.1 - COVID-19 Status: Acute Assessment and Plan: Covid positive in the ED THIS IS AN ACUTE INFECTION Chest xray indicates extensive right airspace disease compatible with PNA, right pleural effusion Repeat xray 04/08/2022 shows edema or consolidation that is worse since 04/07/22 Albuterol Isolation precautions Supplemental oxygen, wean to maintain saturations >90% Continue Decadron Unable to get remdesivir due to renal function Repeat Echo EF of 60-65% with a grade 1 diastolic dysfunction Blood cultures NGTD Neb treatments Sputum culture was not from the lower resp track Trend respiratory status Adjust therapy as indicated (2) Pneumonia: Code(s): J18.9 - Pneumonia, unspecified organism Status: Acute Assessment and Plan: See above Cefepime and vancomycin on board (3) ESRD (end stage renal disease): Code(s): N18.6 - End stage renal disease Status: Acute Assessment and Plan: Current BUN/Cr 39/2.60 Dialysis last on 04/10/22 with a little more than 2000ml Probably dialysis today Continue to trend labs Dr. Diaz has been consulted. 3 times a week on Wednesdays and Fridays. (4) Anemia in ESRD (end-stage renal disease): Code(s): N18.6 - End stage renal disease; D63.1 - Anemia in chronic kidney disease Status: Acute Assessment and Plan: Current H&H 8.3/26.7 Combination of iron and chronic disease anemia Anemia labs indicated low iron Iron from 03/20/22 noted to be low Start patient on 325mg PO BID Transfuse one unit Adjust as indicated Continue to trend labs (5) HTN (hypertension): Code(s): I10 - Essential (primary) hypertension Status: Chronic Assessment and Plan: BP is 154/48 Continue home amlodipine, clonidine, Lasix, and spironolactone trend BP Adjust therapy as indicated (6) Hyperlipidemia: Code(s): E78.5 - Hyperlipidemia, unspecified Status: Acute Assessment and Plan: -continue with atorvastatin. (7) Gastroesophageal reflux disease: Code(s): K21.9 - Gastro-esophageal reflux disease without esophagitis Status: Acute Assessment and Plan: -continue with pantoprazole Time Spent With Patient Time with patient: Greater than 35 minutes Subjective Date/time seen: 04/11/22 07:38 Interval history: 04/11/22 04/10/22 1000 Patient stated that she is feeling better today. She did state that her breathing is still rough. She denies any chest pain, shortness a breath, nausea, vomiting, diarrhea, constipation, lightheadedness or dizziness. Patient did state that she was still weak but feels okay. She is to have dialysis today H&H was low and will give her 1 unit of blood. She still remains on the 4 L of oxygen 04/09/22 1030 Patient states that she feels better today. She still remains on the 4 L however can be titrated down as her oxygen saturations 95%. She also stated that her cough is better but still does have a little bit of a cough. Her biggest complaint was that she is having some generalized abdominal pain bilaterally in the lower quadrants. She denies any chest pain, shortness of breath, nausea, vomiting, diarrhea, constipation, weakness or fatigue. 04/08/22 0530/0945 Patient was a rapid response this morning. It was noted that she had a severe increase in oxygen demand. It was noted that she was 69% on 3.5L and was increased to 15LNC, and was sating 96%. Chest xray was performed and does show worsening disease. Lasix was given one time for possible fluid overload. Re-evaluation this morning at 9:45 a.m. patient was noted to have been weaned down to 5 L. patient stated that she has a cough and she has been get a lot up. Appearance was yello
[2022-04-11] MEDS: PANTOPRAZOLE 40 MG TABLET PO (08:27)
[2022-04-11] MEDS: cloNIDine HCL 0.1 MG TABLET PO ×3 (08:27→16:59)
[2022-04-11] MEDS: FUROSEMIDE 80 MG TABLET PO ×2 (08:27→16:59)
[2022-04-11] MEDS: SPIRONOLACTONE 12.5 MG TABLET PO (08:27)
[2022-04-11] MEDS: FERROUS SULFATE 324 MG TABLET PO ×2 (08:28→16:59)
[2022-04-11] MEDS: lisinopriL 20 MG TABLET PO (08:28)
[2022-04-11] MEDS: CEFEPIME 0.5 GM in DEXTROSE 5% IN WATER 50 ML IVPB (08:28)
[2022-04-11] MEDS: LATANOPROST 0.005% OP SOLN 2.5 ML BTL 1 DROP EACH EYE (08:28)
[2022-04-11] MEDS: amLODIPine BESYLATE 5 MG TABLET 10 MG PO (08:28)
--- NOTE | 2022-04-11 10:20 | PM.PNNEP ---
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 Subjective Date/time seen: 04/11/22 10:20 Tolerated dialysis yesterday evening with PRBC transfusion without any issue or problems; breathing/respiratory status seems stable if not back/close to baseline; no events overnight or earlier this AM. Exam Narrative: General: elderly female in NAD Heart: normal S1 and S2; no rub Lungs: coarse breath sounds Abdomen: soft, nontender, nondistended, positive bowel sounds Extremities: no cyanosis or clubbing; no edema Skin: warm and intact Objective Data Vital Signs Vital Signs: Vital Signs Temp Pulse Resp BP Pulse Ox O2 Del Method O2 Flow Rate 04/11/22 08:01 63 04/11/22 07:40 18 91 Nasal Cannula 4 04/11/22 07:46 66 18 04/11/22 07:33 65 18 04/11/22 07:33 91 Nasal Cannula 4 04/11/22 05:06 36.6 C 72 18 154/48 H 90 04/11/22 04:00 62 04/11/22 03:12 65 18 04/11/22 03:03 69 18 04/11/22 00:00 70 04/10/22 21:30 91 Nasal Cannula 4 04/10/22 20:00 69 04/10/22 21:42 66 18 04/10/22 21:42 91 04/10/22 21:35 68 18 04/10/22 21:35 68 91 Nasal Cannula 4 04/10/22 21:30 36.8 C 68 18 140/48 L 94 04/10/22 21:25 36.8 C 68 16 137/55 L 04/10/22 21:10 60 138/60 04/10/22 20:50 69 136/55 L 04/10/22 20:30 69 120/50 L 04/10/22 20:10 66 122/46 L 04/10/22 19:50 66 118/57 L 04/10/22 19:30 67 120/44 L 04/10/22 19:10 68 121/47 L 04/10/22 18:50 66 130/54 L 04/10/22 18:30 73 138/56 L 04/10/22 18:00 4.5 04/10/22 18:00 37.2 C 77 16 132/57 L 04/10/22 18:10 72 138/57 L 04/10/22 16:00 74 04/10/22 15:35 18 04/10/22 15:25 72 18 04/10/22 14:34 36.6 C 74 26 H 130/48 L 91 04/10/22 13:20 36.6 C 68 18 120/52 L 91 04/10/22 13:20 36.6 C 68 18 120/52 L 91 04/10/22 12:40 36.6 C 66 20 116/52 L 89 L 04/10/22 12:00 75 04/10/22 11:38 Nasal Cannula 4 04/10/22 11:51 Nasal Cannula 4 04/10/22 11:40 36.6 C 65 18 123/54 L 93 04/10/22 10:40 36.6 C 69 18 116/54 L 90 04/10/22 10:25 36.6 C 65 18 127/53 L 90 Intake/Output Intake/Output: Intake & Output 04/09/22 04/09/22 04/10/22 04/11/22 00:59 23:59 23:59 23:59 Intake Total 1130 420 Output Total 1999 Balance -870 420 Meds/Results Medications: Active Medications Generic Name Dose Route Start Last Admin Trade Name Freq PRN Reason Stop Dose Admin Albuterol 2.5 mg 04/09/22 16:00 04/11/22 07:46 Albuterol Sulfate Neb 2.5 Mg/3 Ml Inh INHALATION 2.5 mg Q4HRT LAUREN Administration Amlodipine Besylate 10 mg 04/08/22 09:00 04/11/22 08:28 Amlodipine Besylate 5 Mg Tablet PO 10 mg QAM LAUREN Administrat
--- NOTE | 2022-04-11 10:30 | P.DS_ITS ---
DS: Admitting Diagnosis Discharge Date 04/11/22 1030 Admitting Diagnosis COVID-19 pneumonia, end-stage renal disease DS: Discharge Diagnosis Discharge Diagnosis (1) COVID: Code(s): U07.1 - COVID-19 Status: Acute Assessment and Plan: * Covid positive in the ED * THIS IS AN ACUTE INFECTION * Chest xray indicates extensive right airspace disease compatible with PNA, right pleural effusion * Repeat xray 04/08/2022 shows edema or consolidation that is worse since 04/07/22 * Albuterol * Isolation precautions * Supplemental oxygen, wean to maintain saturations >90% * Continue Decadron * Unable to get remdesivir due to renal function * Repeat Echo EF of 60-65% with a grade 1 diastolic dysfunction * Blood cultures NGTD * Neb treatments * Sputum culture was not from the lower resp track * Trend respiratory status * Adjust therapy as indicated (2) Pneumonia: Code(s): J18.9 - Pneumonia, unspecified organism Status: Acute Assessment and Plan: * See above * Cefepime and vancomycin on board (3) ESRD (end stage renal disease): Code(s): N18.6 - End stage renal disease Status: Acute Assessment and Plan: * Current BUN/Cr 39/2.60 * Dialysis last on 04/10/22 with a little more than 2000ml * Probably dialysis today * Continue to trend labs * Dr. Diaz has been consulted. * 3 times a week on Wednesdays and Fridays. (4) Anemia in ESRD (end-stage renal disease): Code(s): N18.6 - End stage renal disease; D63.1 - Anemia in chronic kidney disease Status: Acute Assessment and Plan: * Current H&H 8.3/26.7 * Combination of iron and chronic disease anemia * Anemia labs indicated low iron * Iron from 03/20/22 noted to be low * Start patient on 325mg PO BID * Transfuse one unit * Adjust as indicated * Continue to trend labs (5) HTN (hypertension): Code(s): I10 - Essential (primary) hypertension Status: Chronic Assessment and Plan: * BP is 154/48 * Continue home amlodipine, clonidine, Lasix, and spironolactone * trend BP * Adjust therapy as indicated (6) Hyperlipidemia: Code(s): E78.5 - Hyperlipidemia, unspecified Status: Acute Assessment and Plan: -continue with atorvastatin. (7) Gastroesophageal reflux disease: Code(s): K21.9 - Gastro-esophageal reflux disease without esophagitis Status: Acute Assessment and Plan: -continue with pantoprazole DS: Summary Hospital Course Hospital Course: patient is an 87-year-old female with a past medical history of chronic respiratory failure, end-stage renal disease, hypertension, anemia who presented to the ED with complaints of shortness of breath. Patient is normally on 3 L nasal cannula. Upon arrival patient was noted to have a chest x-ray that showed right space airspace disease compatible with pneumonia. She also had a right pleural effusion. Patient was taken to dialysis and 2400 was removed. Echo was also performed due to possible fluid overload and patient had an EF of 60 65% with a grade 1 diastolic dysfunction. COVID swab in the ED was positive. On 04/08 patient was a rapid response due to increased oxygen means. Patient was given IV Lasix and re
--- NOTE | 2022-04-11 10:30 | PM.DS ---
DS: Admitting Diagnosis Discharge Date 04/11/22 1030 Admitting Diagnosis COVID-19 pneumonia, end-stage renal disease DS: Discharge Diagnosis Discharge Diagnosis (1) COVID: Code(s): U07.1 - COVID-19 Status: Acute Assessment and Plan: Covid positive in the ED THIS IS AN ACUTE INFECTION Chest xray indicates extensive right airspace disease compatible with PNA, right pleural effusion Repeat xray 04/08/2022 shows edema or consolidation that is worse since 04/07/22 Albuterol Isolation precautions Supplemental oxygen, wean to maintain saturations >90% Continue Decadron Unable to get remdesivir due to renal function Repeat Echo EF of 60-65% with a grade 1 diastolic dysfunction Blood cultures NGTD Neb treatments Sputum culture was not from the lower resp track Trend respiratory status Adjust therapy as indicated (2) Pneumonia: Code(s): J18.9 - Pneumonia, unspecified organism Status: Acute Assessment and Plan: See above Cefepime and vancomycin on board (3) ESRD (end stage renal disease): Code(s): N18.6 - End stage renal disease Status: Acute Assessment and Plan: Current BUN/Cr 39/2.60 Dialysis last on 04/10/22 with a little more than 2000ml Probably dialysis today Continue to trend labs Dr. Diaz has been consulted. 3 times a week on Wednesdays and Fridays. (4) Anemia in ESRD (end-stage renal disease): Code(s): N18.6 - End stage renal disease; D63.1 - Anemia in chronic kidney disease Status: Acute Assessment and Plan: Current H&H 8.3/26.7 Combination of iron and chronic disease anemia Anemia labs indicated low iron Iron from 03/20/22 noted to be low Start patient on 325mg PO BID Transfuse one unit Adjust as indicated Continue to trend labs (5) HTN (hypertension): Code(s): I10 - Essential (primary) hypertension Status: Chronic Assessment and Plan: BP is 154/48 Continue home amlodipine, clonidine, Lasix, and spironolactone trend BP Adjust therapy as indicated (6) Hyperlipidemia: Code(s): E78.5 - Hyperlipidemia, unspecified Status: Acute Assessment and Plan: -continue with atorvastatin. (7) Gastroesophageal reflux disease: Code(s): K21.9 - Gastro-esophageal reflux disease without esophagitis Status: Acute Assessment and Plan: -continue with pantoprazole DS: Summary Hospital Course Hospital Course: patient is an 87-year-old female with a past medical history of chronic respiratory failure, end-stage renal disease, hypertension, anemia who presented to the ED with complaints of shortness of breath. Patient is normally on 3 L nasal cannula. Upon arrival patient was noted to have a chest x-ray that showed right space airspace disease compatible with pneumonia. She also had a right pleural effusion. Patient was taken to dialysis and 2400 was removed. Echo was also performed due to possible fluid overload and patient had an EF of 60 65% with a grade 1 diastolic dysfunction. COVID swab in the ED was positive. On 04/08 patient was a rapid response due to increased oxygen means. Patient was given IV Lasix and responded well. Patient has been able to titrate down her Lasix and has been at her baseline oxygen for the rest of the time. labs have remained stable except yesterday when the H&H dropped to 6.7. Patient was given 1 unit of packed red blood cells and currently H&H is 8.3/26.7. Patient is a dialysis patient and nephrology was consulted to manage. Anemia labs were drawn and patient was started on oral iron. BUN and creatinine have remained stable. Patient is a wheelchair at baseline however PT and OT did go and evaluate the patient which she was able to transfer on her own. Patient denies any complaints states that she feels be
== END 2022-04-11 21:35 | DRG 177 ==
LOC: ANHED 10:08 → ANH3MEDSUR 12:22 → ANH2MED 13:25
PROVIDERS: Nurse Practitioner; Admitting Provider Family Medicine; Emergency Provider Emergency Medicine; PCP Internal Medicine; Visit Provider Nurse Practitioner
DX: U07.1 COVID-19 (principal); J12.82 Pneumonia due to coronavirus disease 2019; J15.9 Unspecified bacterial pneumonia; N18.6 End stage renal disease; I12.0 Hypertensive chronic kidney disease with stage 5 chronic kidney disease or end stage renal disease; J96.11 Chronic respiratory failure with hypoxia; D63.1 Anemia in chronic kidney disease; E55.9 Vitamin D deficiency, unspecified; E11.22 Type 2 diabetes mellitus with diabetic chronic kidney disease; E78.5 Hyperlipidemia, unspecified; J44.9 Chronic obstructive pulmonary disease, unspecified; K21.9 Gastro-esophageal reflux disease without esophagitis; H91.90 Unspecified hearing loss, unspecified ear; H40.9 Unspecified glaucoma; M19.90 Unspecified osteoarthritis, unspecified site; N25.0 Renal osteodystrophy; Z99.2 Dependence on renal dialysis; Z99.81 Dependence on supplemental oxygen; Z99.3 Dependence on wheelchair; Z86.16 Personal history of COVID-19; Z87.891 Personal history of nicotine dependence; Z66 Do not resuscitate
CPT/HCPCS: 36415; 36430; 51701; 71045; 80053; 80069; 80202; 81001; 82565; 82607; 82728; 82746; 82948; 83540; 83550; 83605; 83615; 83690; 83735; 83880; 84439; 84443; 84460; 84466; 84484; 85025; 85610; 85730; 86140; 86850; 86900; 86901; 86923; 87040; 87070; 87086; 87088; 87205; 93005; 93306; 94640; 96365; 97161; 97165; 99285; A9270; G0257; J0692; J1100; J1644; J1940; J3370; J7030; J7050; P9016; Q5105; U0003; U0005

== ENCOUNTER 2022-05-03 14:58 | Inpatient (IN) | payer MEDICARE, MEDICAID, SELFPAY ==
[2022-05-03] VITALS (30 sets, daily range): BP systolic 135–148; BP diastolic 40–73; PULSE 77–114; RESP 15–27; TEMP 36.4–36.8; O2SAT 87–100; BMI 30.5
--- NOTE | ~2022-05-03 | CT_ITS ---
EXAMINATION: CT abdomen pelvis wo con DATE: 05/03/2022 18:12 INDICATION: epigastric abd pain/tenderness TECHNIQUE: Computed tomography (CT) of the abdomen and pelvis was performed without intravenous contr ast. Automated exposure control and iterative reconstruction technique were employed. The dose-length product was 746.40 mGy-cm. COMPARISON: 03/17/2022. FINDINGS: This examination is moderately limited by motion artifact, particularly in the upper abdomen Lower th orax: Moderate loculated right pleural effusion. Right basilar atelectasis/consolidation. Cardiomegal y. Heavy coronary artery calcification. Aortic valve and mitral valve calcifications. Incompletely vi sualized pacing wire. Liver: The liver is enlarged. Multiple hepatic cysts. Biliary/Gallbladder: Gallbladder is normal. No bile duct dilation. Pancreas: No mass or duct dilation. Spleen: Normal. Adrenals:No mass. Kidneys: Mild left and moderate right atrophy. Multiple bilateral renal cysts. Renal hilar calcificat ions are likely related to vascular calcification. No hydronephrosis GI tract: No small or large bowel dilation. Normal appendix. Diverticulosis without diverticulitis. Mesentery/Peritoneum: No ascites or free air. Stable coarse calcified nodule in the right lower quadr ant mesentery. Retroperitoneum: No mass. Atherosclerotic abdominal aortic and/or arterial calcifications. Pelvis: Retroverted uterus. Partially filled urinary bladder.. Soft Tissues: Diffuse mild subcutaneous edema. Bones: No acute osseous finding. Partially visualized, uncomplicated appearing right proximal femora l hardware IMPRESSION: Limited examination, as detailed above. Right lower lung atelectasis/consolidation. Loculated moderat e right pleural effusion. No definite acute abdominopelvic process detected. Reviewed, dictated and finalized at location K. HER REPORTER IMPRESSION: Limited examination, as detailed above. Right lower lung atelectasis/consolidat ion. Loculated moderate right pleural effusion. No definite acute abdominopelvi c process detected.
--- NOTE | ~2022-05-03 | XR_ITS ---
XR chest 2V 05/03/2022 16:18 Indication: Shortness of breath Procedure: AP and lateral views of the chest Comparison: Comparison to multiple prior studies sequentially, with oldest reviewed study dated 07/25. Findings: Moderate cardiomegaly with interstitial edema. There is a moderate right pleural effusion. There is right basilar airspace disease. No pneumothorax. No acute osseous abnormality. Impression: 1: Cardiomegaly with pulmonary edema. 2: Right basilar airspace disease may represent atelectasis or superimposed pneumonia. 3: Moderate right pleural effusion. Reviewed, dictated and finalized at location A. H PRINTER Impression: 1: Cardiomegaly with pulmonary edema. 2: Right basilar airspace disease may represent atelectasis or superimposed pne umonia. 3: Moderate right pleural effusion.
--- NOTE | ~2022-05-03 | US_ITS ---
EXAMINATION: US venous doppler [facility] DATE: 05/04/2022 11:18 INDICATION: Lower limb edema. TECHNIQUE: Grayscale ultrasound images without and with compression and Doppler ultrasound images of the bilateral lower extremity veins were obtained. COMPARISON: None. FINDINGS: The visualized portions of right common femoral vein, profunda (deep) femoral vein, femoral vein, pop liteal vein, peroneal veins, posterior tibial veins, and greater saphenous vein outflow are patent. The visualized portions of left common femoral vein, profunda femoral vein, femoral vein, popliteal v ein, peroneal veins, posterior tibial veins, and greater saphenous vein outflow are patent. IMPRESSION: 1. No deep venous thrombosis. Reviewed, dictated and finalized at location A. NING MULE TENDER
--- NOTE | ~2022-05-03 | XR_ITS ---
EXAMINATION: XR abdomen/kub 1V DATE: 05/11/2022 09:25 INDICATION: Abdominal pain. TECHNIQUE: A supine view of the abdomen was obtained. COMPARISON: CT abdomen and pelvis 05/03/2022 FINDINGS: There is a small loculated right pleural effusion. There are no dilated loops of bowel. The re is a 2 cm calcified mass in the mesentery on the right. There is a large volume of stool in the co mayank. There is internal fixation of proximal right femur. IMPRESSION: 1. 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 2. Small loculated right pleural effusion. Reviewed, dictated and finalized at location E. BILITATION WORKER IMPRESSION: 1. 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 2. Small loculated right pleural effusion.
--- NOTE | ~2022-05-03 | US_ITS ---
EXAMINATION: US thoracentesis DATE: 05/07/2022 10:54 PHYS THERAPIST INDICATION: Pleural effusion TECHNIQUE: Survey imaging of the right chest was performed. The procedure for ultrasound-guided thor acentesis and its risk and benefits were discussed with the patient. Risks included but were not limi ben to pain, bleeding, pneumothorax and infection. The patient verbalized understanding and provided written consent. A time-out was performed to document the patient's name, date of , and site of procedure. The r ight posterior chest was prepped and draped in usual sterile fashion. 1% lidocaine was used for loca l anesthesia. Utilizing ultrasound guidance, a 5 belarusian cather was advanced into pleural fluid. Asp iration was performed. The patient tolerated procedure without immediate complication. Sterile bandages were applied over t he aspiration site(s).] FINDINGS: 1000 cc of clear/yellowish fluid obtained without complication. IMPRESSION: 1. Successful ultrasound-guided right thoracentesis. 1000 cc of clear yellowish fluid obtained. Reviewed, dictated and finalized at location A. THERAPIST IMPRESSION: 1. Successful ultrasound-guided right thoracentesis. 1000 cc of clear yellowis h fluid obtained.
--- NOTE | ~2022-05-03 | XR_ITS ---
[id number] 05/07/2022 10:46 Indication: Status post thoracentesis. Pleural effusion. Procedure: AP portable chest Comparison: 05/03/2022 Findings: Cardiomegaly. Near complete resolution of right pleural effusion. No pneumothorax identifie d. There is airspace consolidation of the right mid and lower lung. There is mild pulmonary vascular congestion. Impression: 1: Airspace disease of the right mid and lower lung which represent pneumonia and/or atelectasis. 2: Cardiomegaly with pulmonary vascular congestion. 3: Significant improvement of right pleural effusion postthoracentesis. No pneumothorax identified. Reviewed, dictated and finalized at location A. NSIC NURSE Impression: 1: Airspace disease of the right mid and lower lung which represent pneumonia a nd/or atelectasis. 2: Cardiomegaly with pulmonary vascular congestion. 3: Significant improvement of right pleural effusion postthoracentesis. No pneu mothorax identified.
--- NOTE | 2022-05-03 15:14 | ECG_ITS ---
Measurements Intervals [place] Rate: 89 P: [place]: 0 QRS: -24 QRSD: 130 T: 118 QT: 403 QTc: 491 Interpretive Statements SINUS RHYTHM FREQUENT ATRIAL PREMATURE COMPLEXES INTRAVENTRICULAR CONDUCTION DELAY DELAYED PRECORDIAL R/S TRANSITION LEFT VENTRICULAR HYPERTROPHY WITH ST-T CHANGE BASELINE ARTIFACT- I, II, III, AVR, AVF, V2, V5-V6 ABNORMAL ECG COMPARED TO ECG 04/07/2022 07:49:31 NO SIGNIFICANT CHANGES Electronically Signed On 05-03-2022 15:24:49 [employer]OW [employer]DER by Kendrick Frances D.O.
[2022-05-03 15:30] LABS: Basophils Absolute Auto 0.1 K/mm3 (0.0-0.1); Basophils Percent Auto 0.7 % (0.2-1.2); Eosinophils Absolute Auto 0.3 K/mm3 (0-0.3); Eosinophils Percent Auto 4.3 % (0-4.4); Hematocrit 25.5 % (37.0-47.0); Hemoglobin 7.4 g/dL (12.0-15.0); Immature Granulocyte Absolute 0.06 K/mm3 (0.00-0.031); Immature Granulocyte Percent A 0.9 % (0-0.5); Lymphocytes Absolute Auto 0.68 K/mm3 (0.9-3.2); Lymphocytes Percent Auto 9.7 % (18.3-44.2); Mean Corpuscular Hemoglobin 30.8 pg (26-34); Mean Corpuscular Volume 106.3 fl (80-100); Mean Platelet Volume 10.2 fl (7.4-10.4); Monocytes Absolute Auto 0.7 K/mm3 (0.1-0.6); Monocytes Percent Auto 9.9 % (2.6-8.5); Neutrophils Absolute Auto 5.2 K/mm3 (1.3-6.7); Neutrophils Percent Auto 74.5 % (45.5-73.1); Platelet Count Result 221 k/mm3 (150-375); Red Cell Distribution Width 18.3 % (11.5-14.5)
[2022-05-03 15:46] LABS: Alanine Aminotransferase 10 U/L (6-35); Albumin Level 4.1 g/dL (3.5-5.1); Alkaline Phosphatase 76 U/L (38-126); Anion Gap 7 mmol/L (8-16); Aspartate Amino Transferase 21 U/L (14-36); Bilirubin,Total 0.2 mg/dL (0.2-1.3); Blood Urea Nitrogen 20 mg/dL (7-17); Calcium 8.2 mg/dL (8.4-10.2); Carbon Dioxide 35 mmol/L (22-30); Chloride 94 mmol/L (98-107); Estimated CRCL calculation 29 ml/min; Estimated Glomerular Filt Rate 36; Glucose 121 mg/dL (65-110); Potassium 3.9 mmol/L (3.4-5.0); Sodium 136 mmol/L (137-145)
[2022-05-03 16:01] LABS: Platelet Estimate Adequate (Adequate); Schistocytes None Seen (NORMAL)
[2022-05-03 16:02] LABS: Anisocytosis 3+ (NORMAL); Hypochromasia 1+ (NORMAL)
--- NOTE | 2022-05-03 16:18 | ED.SOB ---
HPI - SOB/Dyspnea General Chief Complaint: Shortness of Breath/Dyspnea Stated Complaint: SOB Time Seen by Provider: 05/03/22 16:18 Related Data Home Medications Medication Instructions Recorded Confirmed atorvastatin 20 mg tablet 20 mg PO HS 06/22/21 04/07/22 clonidine HCl 0.1 mg tablet 0.1 mg PO TID 06/22/21 04/07/22 ergocalciferol (vitamin D2) 1,250 50,000 unit PO WEEKLY 06/22/21 04/07/22 mcg (50,000 unit) capsule latanoprost 0.005 % eye drops 1 drp EACH EYE DAILY 06/22/21 04/07/22 pantoprazole 40 mg tablet,delayed 40 mg PO DAILY 06/22/21 04/07/22 release spironolactone 25 mg tablet 12.5 mg PO DAILY 06/22/21 04/07/22 Acidophilus 1 cap PO BID 03/17/22 04/07/22 Allergies Allergy/AdvReac Type Severity Reaction Status Date / Time latex Allergy Rash Verified 05/03/22 15:37 [facility], [facility] Past Medical History Medical History (Updated 04/10/22 @ 18:38 by Codey Ugalde MD) Anemia Anemia Chronic anemia Chronic obstructive pulmonary disease Chronic respiratory failure with hypoxia COVID-19 (06/2021) Diabetes DVT prophylaxis End-stage renal disease on hemodialysis Erythropoietin deficiency anemia ESRD on dialysis Gastroesophageal reflux disease Glaucoma Hyperlipidemia Hypertension Insulin dependent type 2 diabetes mellitus Osteoarthritis Renal osteodystrophy Vitamin D deficiency Surgical History Surgical History Status post creation of arteriovenous fistula Left upper extremity. Family History Family History Other Diabetes mellitus Hypertension Social History Social History (Updated 04/07/22 @ 16:54 by Keily Holt NP) Social History: the patient tells me that she has 3 children. Initially the patient told me that she lives with a son and [id number]. But the nurse reported that the patient is from a nursing facility. 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 She is . She is a former smoker.Surrogate decision maker: Amy Contreras, roman. Code status: dnr. Smoking packs per day: 1 Smoking cigarettes per day: 20.0 Years smoked: 34 Smoking pack-years: 34.00 Smoking status: Former smoker Tobacco type: cigarettes Second hand tobacco smoke exposure: No Alcohol intake: never Substance use: never Substance use type: does not use Lack of Transportation: YES Lack of Food: Never True Current Housing: I Have Housing Concerned About Future Housing: Decline to Answer Difficulty Paying Gas/Electric Bills: Decline to Answer Difficulty Paying for Meds: Decline to Answer Currently Unemployed: Decline to Answer Education: High School Diploma/GED Difficulty w/ Childcare or Family Care: No Spiritual care concerns: No Course Vital Signs Vital signs: Vital Signs Temperature 36.4 C 05/03/22 15:08 Pulse Rate 84 05/03/22 15:08 Respiratory Rate 18 05/03/22 15:08 Blood Pressure 135/40 L 05/03/22 15:08 Pulse Oximetry 100 05/03/22 15:08 Oxygen Delivery Nasal Cannula 05/03/22 15:08 Oxygen Flow Rate 2 05/03/22 15:08 Temperature 36.4 C 05/03/22 15:08 Pulse Rate 96 05/03/22 16:02 Respiratory Rate 27 H 05/03/22 16:02 Blood Pressure 140/41 L 05/03/22 16:02 Pulse Oximetry 95 05/03/22 16:02 Oxygen Delivery Nasal Cannula 05/03/22 15:58 Oxygen Flow Rate 4 05/03/22 15:58 MDM - SOB/Dyspnea Lab Data 05/03/22 15:24 05/03/22 15:24 Labs: Lab Results 05/03/22 05/03/22 Range/Units 15:24 15:24 WBC 7.0 (4.5-10.0) K/mm3 RBC 2.40 L (4.2-5.4) M/mm3 Hgb 7.4 L (12.0-15.0) g/dL Hct 25.5 L (37.0-47.0) % MCV 106.3 H (80-100) fl MCH 30.8 (26-34) pg MCHC 29.0 L (32-36) g/dl RDW 18.3 H (11.5-14.5) % Plt Count 221 (150-375) k/mm3 MPV 10.2 (7.4-10.4) fl Immature Gran % (Auto) 0.9 H (0-0.5) % Neut % (Auto) 74.5 H (45.5-73.1) % Lym
[2022-05-03 16:35] LABS: Alveolar/Arterial O2 Gradient 117.6 mmHg; Base Excess ABG 10.2 mEq/l (+/-2.0); Device NASAL CANNULA; Fractional Inspired Oxygen 36 %; HCO3 ABG 35.8 mEq/l (22.0-26.0); Modified Allen's Test Pass; Oxygen Content ABG 10.6 %vol (16.0-22.0); Oxyhemoglobin 93.1 % THb (90.0-100.0); PCO2 ABG 55.5 mmHg (35.0-45.0); PO2 ABG 74.7 mmHg (80.0-100.0); PO2 FiO2 Ratio Arterial Blood 2.07 %; Site Drawn RIGHT RADIAL; pH ABG 7.427 (7.350-7.450)
[2022-05-03 17:05] LABS: Basophils Percent Auto 0.6 % (0.2-1.2); Eosinophils Absolute Auto 0.3 K/mm3 (0-0.3); Eosinophils Percent Auto 3.6 % (0-4.4); Hematocrit 23.6 % (37.0-47.0); Immature Granulocyte Absolute 0.07 K/mm3 (0.00-0.031); Lymphocytes Absolute Auto 0.46 K/mm3 (0.9-3.2); Lymphocytes Percent Auto 6.7 % (18.3-44.2); Mean Corpuscular HGB Conc 29.2 g/dl (32-36); Mean Corpuscular Hemoglobin 30.3 pg (26-34); Mean Corpuscular Volume 103.5 fl (80-100); Mean Platelet Volume 10.3 fl (7.4-10.4); Monocytes Absolute Auto 0.7 K/mm3 (0.1-0.6); Monocytes Percent Auto 10.4 % (2.6-8.5); Neutrophils Absolute Auto 5.4 K/mm3 (1.3-6.7); Neutrophils Percent Auto 77.7 % (45.5-73.1); Platelet Count Result 203 k/mm3 (150-375); Red Blood Count 2.28 M/mm3 (4.2-5.4); Red Cell Distribution Width 18.3 % (11.5-14.5); White Blood Count 6.9 K/mm3 (4.5-10.0)
[2022-05-03 17:18] LABS: INR 1.1; Prothrombin Time 13.3 Seconds (11.1-14.7)
[2022-05-03 17:19] LABS: Alanine Aminotransferase 11 U/L (6-35); Albumin Level 3.8 g/dL (3.5-5.1); Alkaline Phosphatase 70 U/L (38-126); Anion Gap 0 mmol/L (8-16); Aspartate Amino Transferase 19 U/L (14-36); Bilirubin,Total 0.2 mg/dL (0.2-1.3); Blood Urea Nitrogen 22 mg/dL (7-17); Calcium 8.2 mg/dL (8.4-10.2); Carbon Dioxide 35 mmol/L (22-30); Chloride 96 mmol/L (98-107); Estimated CRCL calculation 26 ml/min; Estimated Glomerular Filt Rate 31; Glucose 144 mg/dL (65-110); Partial Thromboplastin Time 34.1 SECONDS (22.3-36.8); Potassium 4.4 mmol/L (3.4-5.0); Sodium 131 mmol/L (137-145)
[2022-05-03 17:32] LABS: NT Pro B Type Natriuretic Pept 11200 pg/mL (5-100); Troponin I 0.023 ng/mL (0.000-0.034)
[2022-05-03 17:39] LABS: Hemoglobin 6.9 g/dL (12.0-15.0)
[2022-05-03 17:40] LABS: Platelet Estimate Adequate (Adequate); Schistocytes None Seen (NORMAL)
[2022-05-03 17:41] LABS: Hypochromasia 1+ (NORMAL)
[2022-05-03 17:42] LABS: Anisocytosis 2+ (NORMAL)
[2022-05-03 17:44] LABS: Influenza A QL RT-PCR Negative (Negative); Influenza B QL RT-PCR Negative (Negative); RSV RNA, RT-PCR Negative (Negative); SARS-CoV-2 RNA PCR Negative
--- NOTE | 2022-05-03 17:48 | ED.GENADULT ---
HPI - General Adult General Chief complaint: Shortness of Breath/Dyspnea Stated complaint: SOB Time Seen by Provider: 05/03/22 16:18 History of Present Illness HPI narrative: Patient is an 87-year-old female with a history of end-stage renal disease on hemodialysis, hypertension, here for evaluation of shortness of breath and low oxygen saturations in hemodialysis today. Per EMS patient was satting at 70% and it was noted that her oxygen tank was empty; chronically on 2L due to COPD. Patient was given a nebulizer treatment in route to the hospital and is now saturating at 98% on 4L NC. Patient reportedly was complaining of shortness of breath upon arrival but she denies this for me. She tells me that she has been having abdominal pain that she is unsure how long it has been there for. History is limited as patient is a poor historian. She denies any nausea, vomiting, chest pain, cough. She tells me she does not remember being in the hospital earlier this month for pneumonia. Related Data Home Medications Medication Instructions Recorded Confirmed atorvastatin 20 mg tablet 20 mg PO HS 06/22/21 04/07/22 clonidine HCl 0.1 mg tablet 0.1 mg PO TID 06/22/21 04/07/22 ergocalciferol (vitamin D2) 1,250 50,000 unit PO WEEKLY 06/22/21 04/07/22 mcg (50,000 unit) capsule latanoprost 0.005 % eye drops 1 drp EACH EYE DAILY 06/22/21 04/07/22 pantoprazole 40 mg tablet,delayed 40 mg PO DAILY 06/22/21 04/07/22 release spironolactone 25 mg tablet 12.5 mg PO DAILY 06/22/21 04/07/22 Acidophilus 1 cap PO BID 03/17/22 04/07/22 Allergies Allergy/AdvReac Type Severity Reaction Status Date / Time latex Allergy Rash Verified 05/03/22 15:37 Review of Systems Review of Systems: Gen: Denies fevers or chills Eyes: Denies eye pain or visual change ENT: Denies congestion Respiratory: Denies shortness of breath or cough CV: Denies chest pain or palpitations GI: Reports abdominal pain. denies burning, urgency, frequency or hematuria Musculoskeletal: Denies back pain or muscle pain Neuro: Denies numbness, tingling, weakness or focal weakness Skin: Denies rash Except as documented, all other systems reviewed and negative [facility] Past Medical History Medical History Anemia Anemia Chronic anemia Chronic obstructive pulmonary disease Chronic respiratory failure with hypoxia COVID-19 (06/2021) Diabetes DVT prophylaxis End-stage renal disease on hemodialysis Erythropoietin deficiency anemia ESRD on dialysis Gastroesophageal reflux disease Glaucoma Hyperlipidemia Hypertension Insulin dependent type 2 diabetes mellitus Osteoarthritis Renal osteodystrophy Vitamin D deficiency Surgical History Surgical History Status post creation of arteriovenous fistula Left upper extremity. Family History Family History Other Diabetes mellitus Hypertension Social History Social History (Updated 04/07/22 @ 16:54 by Keily Holt NP) Social History: the patient tells me that she has 3 children. Initially the patient told me that she lives with a son and [id number]. But the nurse reported that the patient is from a nursing facility. 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 She is . She is a former smoker.Surrogate decision maker: Amy Contreras, roman. Code status: dnr. Smoking packs per day: 1 Smoking cigarettes per day: 20.0 Years smoked: 34 Smoking pack-years: 34.00 Smoking status: Former smoker Tobacco type: cigarettes Second hand tobacco smoke exposure: No Alcohol intake: never Substance use: never Substance use type: does not use Lack of Transportation: YES Lack of Food: Never True Current Housing: I Have Housing Concerned About Future Housing: Decline to Answer Difficulty Paying Gas/Electric Bills: Maia
--- NOTE | 2022-05-03 18:30 | PM.IMHP ---
H&P: HPI History of Present Illness Date/Time: 05/03/22 18:30 Chief Complaint: Shortness of breath. Narrative: This is a pleasant 87-year-old female with end-stage renal disease on hemodialysis, type 2 diabetes myelitis, chronic respiratory failure on oxygen, chronic obstructive pulmonary disease, chronic anemia requiring blood transfusion, history of occult GI blood loss, and hypertension who presented to the emergency department for evaluation of shortness of breath. Near the end of her dialysis sessions she started complaining of shortness of breath. Her SpO2 was reportedly 70% on room air and it was noted that her oxygen tank was empty (she is on 3 liters nasal cannula 24 hours a day). EMS was summoned and her oxygenation improved when she was started back on her oxygen. Vital signs were stable on arrival to the emergency department. Labs in the ED showed a hemoglobin and hematocrit of 6.9 and 23.6% respectively and she is being admitted in this setting for blood transfusion with another dialysis session tomorrow. At the time my evaluation she feels just fine and her only complaint is that of hunger. She feels back to her baseline after being started back on her oxygen. She has rare heartburn for which she will take Tums, though not frequently. She has not noticed any blood in her stools nor has she noticed any dark stools however she was Hemoccult-positive on rectal exam. She denies lightheadedness and dizziness, chest pain, palpitations, current shortness of breath, abdominal pain, epigastric pain, bloating, belching, nausea, vomiting, and diarrhea. Review of Systems Review of Systems: Twelve systems were reviewed and are negative except as per HPI. [facility] Past Medical History Medical History (Updated 05/03/22 @ 21:33 by Amanda Osorio PA-C) Chronic anemia Chronic obstructive pulmonary disease Chronic respiratory failure with hypoxia On 2 to 3 liters nasal cannula. COVID-19 (06/2021) End-stage renal disease on hemodialysis Erythropoietin deficiency anemia Gastroesophageal reflux disease Glaucoma Hyperlipidemia Hypertension Hypothyroidism Insulin dependent type 2 diabetes mellitus Osteoarthritis Renal osteodystrophy Vitamin D deficiency Surgical History Surgical History Status post creation of arteriovenous fistula Left upper extremity. Family History Family History Other Diabetes mellitus Hypertension Social History Social History (Updated 05/03/22 @ 21:28 by Amanda Osorio PA-C) Social History: Surrogate decision maker: Amy Contreras, roman. Code status: Do not resuscitate. Smoking packs per day: 1 Smoking cigarettes per day: 20.0 Years smoked: 34 Smoking pack-years: 34.00 Smoking status: Former smoker Tobacco type: cigarettes Second hand tobacco smoke exposure: No Alcohol intake: never Substance use: never Substance use type: does not use Lack of Transportation: YES Lack of Food: Never True Current Housing: I Have Housing Concerned About Future Housing: Decline to Answer Difficulty Paying Gas/Electric Bills: Decline to Answer Difficulty Paying for Meds: Decline to Answer Currently Unemployed: Decline to Answer Education: High School Diploma/GED Difficulty w/ Childcare or Family Care: No 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 Spiritual care concerns: No Meds Home Medications and Allergies Home Medications Medication Instructions Recorded Confirmed Type atorvastatin 20 mg tablet 20 mg PO HS 06/22/21 04/07/22 History clonidine HCl 0.1 mg tablet 0.1 mg PO TID 06/22/21 04/07/22 History ergocalciferol (vitamin D2) 1,250 50,000 unit PO WEEKLY 06/22/21 04/07/22 History mcg (50,000 unit) capsule latanoprost 0.005 % eye drops 1 drp EACH EYE DAILY 06/22/21 04/07/22 History pantoprazole 40 mg tablet,delayed 40
[2022-05-03 18:38] LABS: Lipase 180 U/L (23-300); Phosphorus 3.1 mg/dL (2.5-4.5)
--- NOTE | 2022-05-03 21:44 | ADMGEN ---
This patient, Sofía Contreras, was admitted to [facility] Surg Room 325-01. Patient/family oriented to hospital policies and general routines including ID bracelet, bed and alarms, visiting hours, pain management, procedures, bathroom and other care routines, personal items, smoking policy, room service/diet, and visiting hours. Information on how to activate the Rapid Response Team has been discussed. Patient/Family are encouraged to report perceived risks to care and to ask questions if they do not understand what they are told or what they should do.
[2022-05-04] VITALS (26 sets, daily range): BP systolic 104–164; BP diastolic 41–58; PULSE 72–87; RESP 16–20; TEMP 36.2–37; O2SAT 93–98
[2022-05-04 06:47] LABS: Hematocrit 24.7 % (37.0-47.0); Hemoglobin 7.1 g/dL (12.0-15.0); Mean Corpuscular HGB Conc 28.7 g/dl (32-36); Mean Corpuscular Hemoglobin 30.6 pg (26-34); Mean Corpuscular Volume 106.5 fl (80-100); Mean Platelet Volume 10.5 fl (7.4-10.4); Platelet Count Result 244 k/mm3 (150-375); Red Blood Count 2.32 M/mm3 (4.2-5.4); Red Cell Distribution Width 18.7 % (11.5-14.5); White Blood Count 6.4 K/mm3 (4.5-10.0)
[2022-05-04 07:43] LABS: Sodium 135 mmol/L (137-145)
[2022-05-04 07:47] LABS: Alanine Aminotransferase 8 U/L (6-35); Albumin Level 3.3 g/dL (3.5-5.1); Alkaline Phosphatase 58 U/L (38-126); Anion Gap 4 mmol/L (8-16); Aspartate Amino Transferase 18 U/L (14-36); Bilirubin,Total 0.1 mg/dL (0.2-1.3); Blood Urea Nitrogen 29 mg/dL (7-17); Calcium 8.2 mg/dL (8.4-10.2); Carbon Dioxide 32 mmol/L (22-30); Chloride 99 mmol/L (98-107); Estimated CRCL calculation 21 ml/min; Estimated Glomerular Filt Rate 25; Glucose 79 mg/dL (65-110); Magnesium 2.1 mg/dL (1.6-2.3); Potassium 4.8 mmol/L (3.4-5.0)
[2022-05-04 08:04] LABS: Glucose Point of Care 86 mg/dl (65-105)
--- NOTE | 2022-05-04 11:35 | PC.NURSE ---
pt. returned from radiology via bed at 11:02
[2022-05-04 11:39] LABS: Glucose Point of Care 147 mg/dl (65-105)
[2022-05-04 13:32] LABS: Free T4 Free Thyroxine Reflex 0.53 ng/dL (0.78-2.19)
--- NOTE | 2022-05-04 13:39 | PM.CNNEP ---
Assessment and Plan Assessment and plan (1) ESRD (end stage renal disease): Code(s): N18.6 - End stage renal disease Status: Acute Assessment and Plan: the patient has end-stage renal disease. She gets dialysis 3 times a week. Currently she has some volume overload. She also was anemic and need a blood transfusion. She is going to get dialysis today and get fluid off and give her some blood. (2) Acute on chronic anemia: Code(s): D64.9 - Anemia, unspecified Status: Acute Assessment and Plan: The patient has chronic anemia due to end-stage renal disease. She has recent worsening of her hemoglobin. Possibly she has lost some blood through her GI tract. Her last dual guaiac here at this hospital was negative back in August. She says that she has not seen black or bloody stools. Will order repeat stool guaiac. She has been typed and crossed and will get some blood on dialysis. Will will also give her some Epogen. (3) Insulin dependent type 2 diabetes mellitus: Code(s): E11.9 - Type 2 diabetes mellitus without complications; Z79.4 - USP (current) use of insulin Status: Acute Assessment and Plan: This is being managed by the hospitalists. (4) Hypertension: Code(s): I10 - Essential (primary) hypertension Status: Chronic Assessment and Plan: Systolic is running between 130 and 150. She is on amlodipine clonidine and lisinopril. (5) Shortness of breath: Code(s): R06.02 - Shortness of breath Status: Acute Assessment and Plan: Her breathing is multifactorial. She does have some fluid on her chest x-ray but not a lot. She also is very anemic which would contribute to this as well. Thirdly the patient has COPD which chronically is an issue with her breathing. (6) Gastroesophageal reflux disease: Code(s): K21.9 - Gastro-esophageal reflux disease without esophagitis Status: Acute Assessment and Plan: Patient is on a PPI. (7) Hyperlipidemia: Code(s): E78.5 - Hyperlipidemia, unspecified Status: Acute Assessment and Plan: The patient is on atorvastatin (8) Renal osteodystrophy: Code(s): N25.0 - Renal osteodystrophy Status: Acute Assessment and Plan: will check a phosphorus in the morning. History of Present Illness Reason for Consult Consult date: 05/04/22 Chief Complaint Chief complaint: Anemia, Fluid Overload History of Present Illness Narrative: Sofía is a very pleasant 87-year-old lady who has multiple medical problems including end-stage renal disease, diabetes, anemia, renal osteodystrophy, hypertension, COPD, chronic respiratory failure, on home oxygen. The patient was found to be hypoxic at home however her oxygen tank turned out to be empty. They called EMS and they put oxygen back on her and her saturations improved but she was still short of breath. She also has had some nausea. The patient was brought to the ER. She was found to have some volume overload but also significant anemia so she was admitted. She was typed and crossed and is going to received transfusions on dialysis. Today she stills feels short of breath but is about the same. She does have much of a cough. She has no fever or chills. She has nausea. This is been going on for couple of days. She does not have any belly pain. No vomiting. No diarrhea. No black or bloody stools. The patient went to dialysis on Sunday finished her treatment. Review of Systems Constitutional: Constitutional: Reports no additional constitutional complaints Eyes: Eyes: Reports no additional eye complaints ENT: Reports system reviewed and no additional complaints, except as documented Cardiovascular: Cardiovascular: Reports no additional cardiovascular complaints Respiratory: Respiratory: Reports no additional respiratory complaints Gastrointestinal: Gastrointestinal:
[2022-05-04] MEDS: ONDANSETRON INJ 4 MG/2 ML VIAL IV PUSH (13:48)
[2022-05-04 14:51] LABS: Hepatitis B Surface Antigen Negative (Negative)
--- NOTE | 2022-05-04 14:51 | PC.NURSE ---
pt. left room at 14:25 for dialysis via bed
[2022-05-04 15:09] LABS: Hepatitis B Surface Anti Res Negative
--- NOTE | 2022-05-04 15:42 | PM.IMPN ---
Progress Note: A&P Assessment and Plan (1) Acute on chronic anemia: Code(s): D64.9 - Anemia, unspecified Status: Acute Assessment and Plan: Baseline hemoglobin ranges between 7.5 and 8.5. She was given 2 units of packed red blood cells. (2) Heme positive stool: Code(s): R19.5 - Other fecal abnormalities Status: Acute Assessment and Plan: Stool was once again Hemoccult-positive. She was hospitalized in July an EGD at that time showed Schatzki's rings, gastric polyps, duodenal polyps, and hiatal hernia without evidence of bleeding. Colonoscopy last month showed a few diverticuli without perforation or abscess without bleeding. Outpatient GI consultation. Continue PPI. (3) Chronic respiratory failure with hypoxia: Code(s): J96.11 - Chronic respiratory failure with hypoxia Status: Chronic Assessment and Plan: She is now back at her baseline on her typical oxygen requirement without issue. Chest x-ray does show moderate right-sided loculated pleural effusion. Will order IR guided thoracentesis (4) End-stage renal disease on hemodialysis: Code(s): N18.6 - End stage renal disease; Z99.2 - Dependence on renal dialysis Status: Acute Assessment and Plan: Dr. Diaz consulted for dialysis. (5) Gastroesophageal reflux disease: Code(s): K21.9 - Gastro-esophageal reflux disease without esophagitis Status: Acute Assessment and Plan: Continue PPI. (6) Hypertension: Code(s): I10 - Essential (primary) hypertension Status: Chronic Assessment and Plan: Blood pressures were reviewed and they are stable. Continue antihypertensives and monitor. (7) Insulin dependent type 2 diabetes mellitus: Code(s): E11.9 - Type 2 diabetes mellitus without complications; Z79.4 - MCC (current) use of insulin Status: Acute Assessment and Plan: No longer requiring insulin or medication for that matter. Most recent hemoglobin A1c was 4.7%. (8) Hypothyroidism: Code(s): E03.9 - Hypothyroidism, unspecified Status: Acute Assessment and Plan: Continue levothyroxine and check TSH. Subjective Date/time seen: 05/04/22 15:42 Patient states she does not feel good. Feels tired Review of Systems Constitutional: Constitutional: Reports no additional constitutional complaints Eyes: Eyes: Reports no additional eye complaints ENT: Reports system reviewed and no additional complaints, except as documented Cardiovascular: Cardiovascular: Reports no additional cardiovascular complaints Respiratory: Respiratory: Reports no additional respiratory complaints Gastrointestinal: Gastrointestinal: Reports no additional gastrointestinal complaints Genitourinary: Genitourinary: Reports no additional female genitourinary complaints Musculoskeletal: Musculoskeletal: Reports no additional musculoskeletal complaints Integumentary/Breasts: Skin/Breast: Reports system reviewed and no additional complaints, except as docu Neurologic: Reports system reviewed and no additional complaints, except as documented Psychiatric: Psychiatric: Reports no additional psychiatric complaints Endocrine: Endocrine: Reports no additional endocrine complaints Exam Narrative: Exam Narrative: Appears tired and fatigued Skin warm and dry without rash Head normocephalic atraumatic Eyes normal sclerae and conjunctivae Mouth normal lips teeth and gums Neck no nodes no thyromegaly no carotid bruits Axillae no nodes Back no CVA tenderness Lungs symmetric and crackly throughout with increased expiratory phase and normal to percussion Heart regular rate and rhythm without rub or gallop Abdomen bowel sounds positive soft nontender, no HSM, masses, or bruits. Extremities no cyanosis, clubbing, and 1+ bilateral edema Pulses 2+ equal in radial arteries Psychological not depressed. Somewhat anxious with her nause
--- NOTE | 2022-05-04 15:45 | PM.IMPN ---
Subjective Date/time seen: 05/04/22 15:45 patient is confused Review of Systems Constitutional: Constitutional: Reports no additional constitutional complaints Eyes: Eyes: Reports no additional eye complaints ENT: Reports system reviewed and no additional complaints, except as documented Cardiovascular: Cardiovascular: Reports no additional cardiovascular complaints Respiratory: Respiratory: Reports no additional respiratory complaints Gastrointestinal: Gastrointestinal: Reports no additional gastrointestinal complaints Genitourinary: Genitourinary: Reports no additional female genitourinary complaints Musculoskeletal: Musculoskeletal: Reports no additional musculoskeletal complaints Integumentary/Breasts: Skin/Breast: Reports system reviewed and no additional complaints, except as docu Neurologic: Reports system reviewed and no additional complaints, except as documented Psychiatric: Psychiatric: Reports no additional psychiatric complaints Endocrine: Endocrine: Reports no additional endocrine complaints Exam Narrative: Exam Narrative: Appears tired and fatigued Skin warm and dry without rash Head normocephalic atraumatic Eyes normal sclerae and conjunctivae Mouth normal lips teeth and gums Neck no nodes no thyromegaly no carotid bruits Axillae no nodes Back no CVA tenderness Lungs symmetric and crackly throughout with increased expiratory phase and normal to percussion Heart regular rate and rhythm without rub or gallop Abdomen bowel sounds positive soft nontender, no HSM, masses, or bruits. Extremities no cyanosis, clubbing, and 1+ bilateral edema Pulses 2+ equal in radial arteries Psychological not depressed. Somewhat anxious with her nausea. Neuro alert and oriented x3 motor 5/5 cranial nerves 2-12 intact reflexes 2+ and equal in the biceps and patellar tendons cerebellar normal rapid alternating movements Objective Data Vital Signs Vital Signs: Vital Signs - 24 hr 05/03/22 15:58 05/03/22 15:58 05/03/22 16:02 Temperature Pulse Rate 96 Respiratory Rate 27 H Blood Pressure 140/41 L Pulse Oximetry 87 L 94 95 Oxygen Delivery Nasal Cannula Nasal Cannula Oxygen Flow Rate 2 4 05/03/22 17:12 05/03/22 15:53 05/03/22 16:00 Temperature Pulse Rate 90 95 94 Respiratory Rate 26 H 20 20 Blood Pressure 135/57 L Pulse Oximetry 99 96 96 Oxygen Delivery Oxygen Flow Rate 05/03/22 16:21 05/03/22 16:23 05/03/22 16:30 Temperature Pulse Rate 114 H 92 92 Respiratory Rate 20 19 Blood Pressure 135/57 L Pulse Oximetry 94 93 96 Oxygen Delivery Oxygen Flow Rate 05/03/22 16:59 05/03/22 17:08 05/03/22 17:19 Temperature Pulse Rate 87 92 89 Respiratory Rate 16 18 20 Blood Pressure Pulse Oximetry 99 100 97 Oxygen Delivery Oxygen Flow Rate 05/03/22 17:30 05/03/22 17:45 05/03/22 18:07 Temperature Pulse Rate 84 88 96 Respiratory Rate 18 18 20 Blood Pressure Pulse Oximetry 100 97 97 Oxygen Delivery Oxygen Flow Rate 05/03/22 18:15 05/03/22 18:30 05/03/22 19:04 Temperature 98.3 F Pulse Rate 89 88 79 Respiratory Rate 19 16 19 Blood Pressure 138/73 Pulse Oximetry 95 95 99 Oxygen Delivery Oxygen Flow Rate 05/03/22 19:15 05/03/22 19:42 05/03/22 19:45 Temperature Pulse Rate 84 77 81 Respiratory Rate 15 17 16 Blood Pressure Pulse Oximetry 99 100 100 Oxygen Delivery Oxygen Flow Rate 05/03/22 19:46 05/03/22 20:15 05/03/22 20:30 Temperature 98.3 F Pulse Rate 90 86 80 Respiratory Rate 16 19 17 Blood Pressure 140/64 Pulse Oximetry 100 100 100 Oxygen Delivery Oxygen Flow Rate 05/03/22 20:31 05/03/22 22:00 05/03/22 23:56 Temperature 97.5 F L Pulse Rate 78 79 79 Respiratory Rate 15 20 20 Blood Pressure 142/67 H 148/42 H Pulse Oximetry 100 93 93 Oxygen Delivery Nasal Cannula Oxygen Flow Rate 3 05/04/22 00:02 05/04/22 00:00 05/04/22 04:00 Temperature Pulse Rate 79 87 78
[2022-05-04 17:15] LABS: Glucose Point of Care 91 mg/dl (65-105)
[2022-05-04 22:02] LABS: Glucose Point of Care 149 mg/dl (65-105)
[2022-05-05] VITALS (15 sets, daily range): BP systolic 152–180; BP diastolic 39–50; PULSE 72–91; RESP 16–20; TEMP 35.8–36.7; O2SAT 88–100
[2022-05-05 07:02] LABS: Basophils Absolute Auto 0.1 K/mm3 (0.0-0.1); Basophils Percent Auto 0.8 % (0.2-1.2); Eosinophils Absolute Auto 0.4 K/mm3 (0-0.3); Eosinophils Percent Auto 5.8 % (0-4.4); Hematocrit 24.4 % (37.0-47.0); Immature Granulocyte Absolute 0.06 K/mm3 (0.00-0.031); Immature Granulocyte Percent A 0.8 % (0-0.5); Lymphocytes Absolute Auto 0.64 K/mm3 (0.9-3.2); Lymphocytes Percent Auto 8.4 % (18.3-44.2); Mean Corpuscular HGB Conc 28.3 g/dl (32-36); Mean Corpuscular Hemoglobin 31.1 pg (26-34); Mean Corpuscular Volume 109.9 fl (80-100); Mean Platelet Volume 10.5 fl (7.4-10.4); Monocytes Absolute Auto 0.7 K/mm3 (0.1-0.6); Neutrophils Absolute Auto 5.8 K/mm3 (1.3-6.7); Neutrophils Percent Auto 75.2 % (45.5-73.1); Platelet Count Result 231 k/mm3 (150-375); Red Blood Count 2.22 M/mm3 (4.2-5.4); Red Cell Distribution Width 17.7 % (11.5-14.5); White Blood Count 7.6 K/mm3 (4.5-10.0)
[2022-05-05 07:18] LABS: Albumin Level 3.7 g/dL (3.5-5.1); Anion Gap 7 mmol/L (8-16); Blood Urea Nitrogen 20 mg/dL (7-17); Carbon Dioxide 34 mmol/L (22-30); Chloride 97 mmol/L (98-107); Estimated CRCL calculation 20 ml/min; Estimated Glomerular Filt Rate 24; Glucose 79 mg/dL (65-110); Phosphorus 3.9 mg/dL (2.5-4.5); Potassium 4.5 mmol/L (3.4-5.0); Sodium 138 mmol/L (137-145)
[2022-05-05 07:40] LABS: Hemoglobin 6.9 g/dL (12.0-15.0)
[2022-05-05 07:41] LABS: Hypochromasia 2+ (NORMAL); Stomatocytes 1+ (NORMAL)
[2022-05-05 07:42] LABS: Platelet Estimate Adequate (Adequate); Polychromasia 1+ (NORMAL); Schistocytes None Seen (NORMAL)
[2022-05-05] MEDS: SODIUM CHLORIDE 0.9% IV 250 ML 30 ML IV CONT (08:28)
[2022-05-05 09:33] LABS: Glucose Point of Care 75 mg/dl (65-105)
--- NOTE | 2022-05-05 10:00 | PM.IMPN ---
Progress Note: A&P Assessment and Plan (1) Acute on chronic anemia: Code(s): D64.9 - Anemia, unspecified Status: Acute Assessment and Plan: Baseline hemoglobin ranges between 7.5 and 8.5. She was given 2 units of packed red blood cells. Hemoglobin dropped again this morning to 6.9. Patient receiving 1 unit of PRBC. Will consult GI (2) Heme positive stool: Code(s): R19.5 - Other fecal abnormalities Status: Acute Assessment and Plan: Stool was once again Hemoccult-positive. She was hospitalized in July an EGD at that time showed Schatzki's rings, gastric polyps, duodenal polyps, and hiatal hernia without evidence of bleeding. Colonoscopy last month showed a few diverticuli without perforation or abscess without bleeding. GI consultation. Continue PPI. (3) Chronic respiratory failure with hypoxia: Code(s): J96.11 - Chronic respiratory failure with hypoxia Status: Chronic Assessment and Plan: She is now back at her baseline on her typical oxygen requirement without issue. Chest x-ray does show moderate right-sided loculated pleural effusion. Will order IR guided thoracentesis (4) End-stage renal disease on hemodialysis: Code(s): N18.6 - End stage renal disease; Z99.2 - Dependence on renal dialysis Status: Acute Assessment and Plan: Dr. Diaz consulted for dialysis. (5) Gastroesophageal reflux disease: Code(s): K21.9 - Gastro-esophageal reflux disease without esophagitis Status: Acute Assessment and Plan: Continue PPI. (6) Hypertension: Code(s): I10 - Essential (primary) hypertension Status: Chronic Assessment and Plan: Blood pressures were reviewed and they are stable. Continue antihypertensives and monitor. (7) Insulin dependent type 2 diabetes mellitus: Code(s): E11.9 - Type 2 diabetes mellitus without complications; Z79.4 - intermediate designer (current) use of insulin Status: Acute Assessment and Plan: No longer requiring insulin or medication for that matter. Most recent hemoglobin A1c was 4.7%. (8) Hypothyroidism: Code(s): E03.9 - Hypothyroidism, unspecified Status: Acute Assessment and Plan: Continue levothyroxine and check TSH. Subjective Date/time seen: 05/05/22 10:00 Patient is reporting heartburn this morning. No other specific complaints Review of Systems Constitutional: Constitutional: Reports no additional constitutional complaints Eyes: Eyes: Reports no additional eye complaints ENT: Reports system reviewed and no additional complaints, except as documented Cardiovascular: Cardiovascular: Reports no additional cardiovascular complaints Respiratory: Respiratory: Reports no additional respiratory complaints Gastrointestinal: Gastrointestinal: Reports no additional gastrointestinal complaints Genitourinary: Genitourinary: Reports no additional female genitourinary complaints Musculoskeletal: Musculoskeletal: Reports no additional musculoskeletal complaints Integumentary/Breasts: Skin/Breast: Reports system reviewed and no additional complaints, except as docu Neurologic: Reports system reviewed and no additional complaints, except as documented Psychiatric: Psychiatric: Reports no additional psychiatric complaints Endocrine: Endocrine: Reports no additional endocrine complaints Exam Narrative: Exam Narrative: Appears tired and fatigued Skin warm and dry without rash Head normocephalic atraumatic Eyes normal sclerae and conjunctivae Mouth normal lips teeth and gums Neck no nodes no thyromegaly no carotid bruits Axillae no nodes Back no CVA tenderness Lungs symmetric and crackly throughout with increased expiratory phase and normal to percussion Heart regular rate and rhythm without rub or gallop Abdomen bowel sounds positive soft nontender, no HSM, masses, or bruits. Extremities no cyanosis, clubbing, and 1+ bilatera
[2022-05-05 12:26] LABS: Glucose Point of Care 74 mg/dl (65-105)
[2022-05-05] MEDS: PANTOPRAZOLE SODIUM IV 40 MG VIAL IV PUSH (12:49)
--- NOTE | 2022-05-05 13:03 | PM.PNNEP ---
Progress Note: A&P Assessment and Plan (1) ESRD (end stage renal disease): Code(s): N18.6 - End stage renal disease Status: Acute Assessment and Plan: the patient has end-stage renal disease. She gets dialysis 3 times a week. she looks better today with the fluid off. Will get another dialysis tomorrow. (2) Acute on chronic anemia: Code(s): D64.9 - Anemia, unspecified Status: Acute Assessment and Plan: The patient has chronic anemia due to end-stage renal disease. However she has an additional GI blood loss. Her stool guaiacs are positive. Her hemoglobin dropped back to 6.9 again today and she is getting more blood transfusions. GI is being consulted. (3) Insulin dependent type 2 diabetes mellitus: Code(s): E11.9 - Type 2 diabetes mellitus without complications; Z79.4 - shelter (current) use of insulin Status: Acute Assessment and Plan: This is being managed by the hospitalists. (4) Hypertension: Code(s): I10 - Essential (primary) hypertension Status: Chronic Assessment and Plan: Systolic is running between 130 and 170 She is on amlodipine clonidine and lisinopril at home. her lisinopril was not restarted in the hospital. Will restart this. Will take more fluid off in dialysis tomorrow. (5) Shortness of breath: Code(s): R06.02 - Shortness of breath Status: Acute Assessment and Plan: Her breathing is multifactorial. It is overall better with less fluid on board. (6) Gastroesophageal reflux disease: Code(s): K21.9 - Gastro-esophageal reflux disease without esophagitis Status: Acute Assessment and Plan: Patient is on a PPI. (7) Hyperlipidemia: Code(s): E78.5 - Hyperlipidemia, unspecified Status: Acute Assessment and Plan: The patient is on atorvastatin (8) Renal osteodystrophy: Code(s): N25.0 - Renal osteodystrophy Status: Acute Assessment and Plan: Phosphorus is normal Subjective Date/time seen: 05/05/22 13:03 Interval history: The patient looks better today. She is not as short of breath. She still has some nausea. She feels generally blah Review of Systems Cardiovascular: Cardiovascular: Reports no additional cardiovascular complaints Respiratory: Respiratory: Reports no additional respiratory complaints Gastrointestinal: Gastrointestinal: Reports no additional gastrointestinal complaints Genitourinary: Genitourinary: Reports no additional female genitourinary complaints Exam Narrative: WDWN in NAD skin no rash head ncat lungs clear with decreased breath sounds at the bases cor reg no rub abd BS+ nontender and soft ext no edema. Objective Data Vital Signs Vital Signs: Vital Signs - 24 hr 05/04/22 14:14 05/04/22 14:15 05/04/22 14:23 Temperature 97.1 F L 98.1 F Pulse Rate 75 79 Respiratory Rate 16 18 Blood Pressure 151/41 H 131/51 L Pulse Oximetry 96 Oxygen Delivery Oxygen Flow Rate 05/04/22 14:40 05/04/22 15:00 05/04/22 15:20 Temperature Pulse Rate 76 79 Respiratory Rate Blood Pressure 164/57 H 151/54 H Pulse Oximetry Oxygen Delivery Oxygen Flow Rate 3 05/04/22 15:40 05/04/22 16:00 05/04/22 16:20 Temperature Pulse Rate 74 72 82 Respiratory Rate Blood Pressure 151/58 H 140/55 L 113/56 L Pulse Oximetry Oxygen Delivery Oxygen Flow Rate 05/04/22 16:40 05/04/22 16:00 05/04/22 17:00 Temperature Pulse Rate 76 72 74 Respiratory Rate Blood Pressure 142/56 H 156/55 H Pulse Oximetry Oxygen Delivery Oxygen Flow Rate 05/04/22 17:20 05/04/22 17:40 05/04/22 18:00 Temperature Pulse Rate 75 81 81 Respiratory Rate Blood Pressure 139/56 L 143/57 H 133/57 L Pulse Oximetry Oxygen Delivery Oxygen Flow Rate 05/04/22 18:20 05/04/22 18:32 05/04/22 18:34 Temperature 98.5 F Pulse Rate
[2022-05-05 13:17] LABS: Immature Reticulocyte Fraction 28.3 % (3.0-15.9); Reticulocyte Hemoglobin Conten 31.8 pg (28.2-35.7); Reticulocyte Percent 6.92 % (0.7-4.3); Reticulocytes Absolute 0.15 B/L (32.2-175.7)
[2022-05-05] MEDS: cloNIDine HCL 0.1 MG TABLET PO ×2 (13:32→17:03)
--- NOTE | 2022-05-05 14:05 | WPDGICN ---
Assessment and Plan Assessment and plan (1) Acute on chronic anemia: Code(s): D64.9 - Anemia, unspecified Status: Acute Assessment and Plan: and a few these admissions her hemoglobin was found to be dropping during dialysis as this time when she became lightheaded during dialysis. (2) ESRD (end stage renal disease): Code(s): N18.6 - End stage renal disease Status: Acute Assessment and Plan: She has been on hemodialysis for some time. As noted above she seems to often develop symptomatic anemia with hypotension or altered mental status while in dialysis. It would be interesting to see if she has a significant drop in her pre and post dialysis hemoglobin. (3) Altered mental status: Code(s): R41.82 - Altered mental status, unspecified Status: Acute Assessment and Plan: She has chronic dementia. She is lucid now however knows where she is (4) Erythropoietin deficiency anemia: Code(s): D63.1 - Anemia in chronic kidney disease Status: Chronic Plan there is no evidence of active gastrointestinal bleeding. She does apparently have a positive stool Hemoccult. Another 1 has been ordered. The last record Hemoccult from August was negative. I will arrange for have capsule endoscopy of the small bowel as an outpatient. GI Consult Note Consult date/time: 05/05/22 14:05 HPI: Sofía Contreras is a 87 year old female. this is 1 of many hospitalizations for this in early female who was a resident of a long-term. She has end-stage renal disease on hemodialysis, type 2 diabetes, chronic respiratory failure for which she is on oxygen. She has repeatedly dropped her hemoglobin, sometimes precipitously to fiber 6 g. There has never been any overt evidence of bleeding such as tarry stools, bloody or maroon stools or hematemesis. EGD was done earlier this year when she was admitted with acute drop in hemoglobin and that revealed only Schatzki's ring. Month later she was readmitted with the same problem and stool Hemoccult was done that was negative. In March we had arranged for her to have outpatient capsule endoscopy but it appears that that was never scheduled or done. She denies seen any blood her stools. She states that she has a constant pain in the middle of her belly. Review of Systems Review of Systems: All systems reviewed & are unremarkable except as noted in HPI and below PMFSH Past Medical History Medical History Chronic anemia Chronic obstructive pulmonary disease Chronic respiratory failure with hypoxia On 2 to 3 liters nasal cannula. COVID-19 (06/2021) End-stage renal disease on hemodialysis Erythropoietin deficiency anemia Gastroesophageal reflux disease Glaucoma Hyperlipidemia Hypertension Hypothyroidism Insulin dependent type 2 diabetes mellitus Osteoarthritis Renal osteodystrophy Renal osteodystrophy Vitamin D deficiency Surgical History Surgical History Status post creation of arteriovenous fistula Left upper extremity. Family History Family History Other Diabetes mellitus Hypertension Social History Social History Social History: Surrogate decision maker: Amy Contreras, son. Code status: Do not resuscitate. Smoking packs per day: 1 Smoking cigarettes per day: 20.0 Years smoked: 34 Smoking pack-years: 34.00 Smoking status: Former smoker Tobacco type: cigarettes Second hand tobacco smoke exposure: No Alcohol intake: never Substance use: never Substance use type: does not use Lack of Transportation: No Lack of Food: Never True Current Housing: I Have Housing Concerned About Future Housing: No Difficulty Paying Gas/Electric Bills: No Difficulty Paying for Meds: No
[2022-05-05 16:39] LABS: Glucose Point of Care 120 mg/dl (65-105)
[2022-05-05] MEDS: ATORVASTATIN 20 MG TABLET PO (21:16)
[2022-05-05] MEDS: LATANOPROST 0.005% OP SOLN 2.5 ML BTL 1 DROP EACH EYE (21:16)
[2022-05-05 21:45] LABS: Glucose Point of Care 125 mg/dl (65-105)
[2022-05-06] VITALS (23 sets, daily range): BP systolic 130–174; BP diastolic 32–88; PULSE 60–78; RESP 18–20; TEMP 36–36.9; O2SAT 95–100
[2022-05-06] MEDS: LEVOTHYROXINE SODIUM 100 MCG TABLET PO (06:26)
[2022-05-06 07:33] LABS: Albumin Level 3.7 g/dL (3.5-5.1); Anion Gap 3 mmol/L (8-16); Blood Urea Nitrogen 33 mg/dL (7-17); Calcium 8.2 mg/dL (8.4-10.2); Carbon Dioxide 36 mmol/L (22-30); Chloride 96 mmol/L (98-107); Estimated CRCL calculation 16 ml/min; Estimated Glomerular Filt Rate 18; Glucose 82 mg/dL (65-110); Phosphorus 4.5 mg/dL (2.5-4.5); Sodium 135 mmol/L (137-145)
[2022-05-06 07:55] LABS: Glucose Point of Care 71 mg/dl (65-105)
[2022-05-06] MEDS: amLODIPine BESYLATE 5 MG TABLET 10 MG PO (08:50)
[2022-05-06] MEDS: cloNIDine HCL 0.1 MG TABLET PO ×2 (08:50→16:58)
[2022-05-06] MEDS: PANTOPRAZOLE SODIUM IV 40 MG VIAL IV PUSH (08:51)
--- NOTE | 2022-05-06 09:40 | PC.NURSE ---
To dialysis via bed.
[2022-05-06 10:25] LABS: Hematocrit 30.3 % (37.0-47.0); Hemoglobin 8.9 g/dL (12.0-15.0); Mean Corpuscular HGB Conc 29.4 g/dl (32-36); Mean Corpuscular Hemoglobin 30.5 pg (26-34); Mean Corpuscular Volume 103.8 fl (80-100); Mean Platelet Volume 10.4 fl (7.4-10.4); Platelet Count Result 233 k/mm3 (150-375); Red Blood Count 2.92 M/mm3 (4.2-5.4); Red Cell Distribution Width 20.1 % (11.5-14.5); White Blood Count 8.3 K/mm3 (4.5-10.0)
--- NOTE | 2022-05-06 12:07 | P.PNNP_ITS ---
Progress Note: A&P Assessment and Plan (1) ESRD (end stage renal disease): Code(s): N18.6 - End stage renal disease Status: Chronic Assessment and Plan: * HD today * continue HD on T/T/S schedule while hospitalized * follow electrolytes, volume status, and clearance (2) Acute on chronic anemia: Code(s): D64.9 - Anemia, unspecified Status: Acute Assessment and Plan: * partly due to ESRD * however, has had recurrent issues with this in the past (see previous hospitalizations) * GI recommendations noted - capsule endoscopy as outpatient * PRBC transfusion per protocol * Epogen with HD * follow trend of H/H (3) Hypertension: Code(s): I10 - Essential (primary) hypertension Status: Chronic Assessment and Plan: * reasonable control at this time * follow trend of hemodynamics * continue current medications (4) Renal osteodystrophy: Code(s): N25.0 - Renal osteodystrophy Status: Acute Assessment and Plan: * calcium and phosphorus stable * follow parameters (5) Insulin dependent type 2 diabetes mellitus: Code(s): E11.9 - Type 2 diabetes mellitus without complications; Z79.4 - buttermaker (current) use of insulin Status: Chronic Assessment and Plan: * blood sugars by AM labs normal * glycemic control if needed Will continue to follow. Subjective Date/time seen: 05/06/22 12:07 Chart reviewed -- following this weekend; tolerating dialysis treatment at the time of my visit (seen on HD at 11:57AM); H/H better by AM labs following PRBC transfusion yesterday; no apparent distress voiced; no other events/issues overnight or earlier this AM. Exam Narrative: General: elderly female in NAD Heart: normal S1 and S2; no rub Lungs: coarse breath sounds; decreased at bases Abdomen: soft, nontender, nondistended, positive bowel sounds Extremities: no cyanosis or clubbing; no edema Skin: warm and intact Objective Data Vital Signs Vital Signs: Vital Signs Temp Pulse Resp BP Pulse Ox O2 Del Method O2 Flow Rate 05/06/22 11:40 61 140/49 L 05/06/22 11:20 64 130/88 05/06/22 11:00 63 140/51 L 05/06/22 10:40 64 153/50 H 05/06/22 10:18 66 147/57 H 05/06/22 12:00 64 05/06/22 08:00 77 05/06/22 10:15 3 05/06/22 09:50 98.4 F 73 18 142/62 H 100 05/06/22 08:50 98 Nasal Cannula 3 05/06/22 05:41 97.2 F L 74 20 174/56 H 100 05/06/22 00:00 67 05/05/22 20:15 72 05/05/22 21:10 97.5 F L 72 18 159/47 H 100 05/05/22 16:15 98.1 F 79 20 167/45 H 95 Intake/Output Intake/Output: Intake & Output 05/03/22 05/04/22 05/05/22 05/06/22 23:59 23:59 23:59 23:59 Intake Total 240 1190 100 Output Total 3000 0 Balance -2760 1190 100 Meds/Results Medications: Active Medications Generic Name Dose Route Start Last Admin Trade Name Freq PRN Reason Stop Dose Admin Acetaminophen 1,000 mg 05/04/22 06:54 Acetaminophen 500 Mg Tablet PO Q6H PRN Mild Pain (1-3) or Fever Amlodipi
--- NOTE | 2022-05-06 12:07 | PM.PNNEP ---
Progress Note: A&P Assessment and Plan (1) ESRD (end stage renal disease): Code(s): N18.6 - End stage renal disease Status: Chronic Assessment and Plan: HD today continue HD on T/T/S schedule while hospitalized follow electrolytes, volume status, and clearance (2) Acute on chronic anemia: Code(s): D64.9 - Anemia, unspecified Status: Acute Assessment and Plan: partly due to ESRD however, has had recurrent issues with this in the past (see previous hospitalizations) GI recommendations noted - capsule endoscopy as outpatient PRBC transfusion per protocol Carmengen with HD follow trend of H/H (3) Hypertension: Code(s): I10 - Essential (primary) hypertension Status: Chronic Assessment and Plan: reasonable control at this time follow trend of hemodynamics continue current medications (4) Renal osteodystrophy: Code(s): N25.0 - Renal osteodystrophy Status: Acute Assessment and Plan: calcium and phosphorus stable follow parameters (5) Insulin dependent type 2 diabetes mellitus: Code(s): E11.9 - Type 2 diabetes mellitus without complications; Z79.4 - intermediate card tender (current) use of insulin Status: Chronic Assessment and Plan: blood sugars by AM labs normal glycemic control if needed Will continue to follow. Subjective Date/time seen: 05/06/22 12:07 Chart reviewed -- following this weekend; tolerating dialysis treatment at the time of my visit (seen on HD at 11:57AM); H/H better by AM labs following PRBC transfusion yesterday; no apparent distress voiced; no other events/issues overnight or earlier this AM. Exam Narrative: General: elderly female in NAD Heart: normal S1 and S2; no rub Lungs: coarse breath sounds; decreased at bases Abdomen: soft, nontender, nondistended, positive bowel sounds Extremities: no cyanosis or clubbing; no edema Skin: warm and intact Objective Data Vital Signs Vital Signs: Vital Signs Temp Pulse Resp BP Pulse Ox O2 Del Method O2 Flow Rate 05/06/22 11:40 61 140/49 L 05/06/22 11:20 64 130/88 05/06/22 11:00 63 140/51 L 05/06/22 10:40 64 153/50 H 05/06/22 10:18 66 147/57 H 05/06/22 12:00 64 05/06/22 08:00 77 12/03/22 10:15 3 05/06/22 09:50 98.4 F 73 18 142/62 H 100 05/06/22 08:50 98 Nasal Cannula 3 05/06/22 05:41 97.2 F L 74 20 174/56 H 100 05/06/22 00:00 67 05/05/22 20:15 72 05/05/22 21:10 97.5 F L 72 18 159/47 H 100 05/05/22 16:15 98.1 F 79 20 167/45 H 95 Intake/Output Intake/Output: Intake & Output 05/03/22 05/04/22 05/05/22 05/06/22 23:59 23:59 23:59 23:59 Intake Total 240 1190 100 Output Total 3000 0 Balance -2760 1190 100 Meds/Results Medications: Active Medications Generic Name Dose Route Start Last Admin Trade Name Freq PRN Reason Stop Dose Admin Acetaminophen 1,000 mg 05/04/22 06:54 Acetaminophen 500 Mg Tablet PO Q6H PRN Mild Pain (1-3) or Fever Amlodipine Besylate 10 mg 05/06/22 09:00 05/06/22 08:50 Amlodipine Besylate 5 Mg Tablet PO 10 mg QAM LAUREN Administration Atorvastatin Calcium 20 mg 05/05/22 21:00 05/05/22 21:16 Atorvastatin 20 Mg Tablet PO 20 mg HS LAUREN Administration Clonidine HCl 0.1 mg 05/05/22 13:00 05/06/22 08:50 Clonidine Hcl 0.1 Mg Tablet PO 0.1 mg TID LAUREN Administration Dextrose 12.5 gm 05/03/22 21:39 Dextrose 50% 25 Gm/50 Ml Syringe IV PUSH PRN PRN Hypoglycemia Protocol Epoetin Samuel-epbx 10,000 units 05/04/22 14:00 Epoetin Samuel-Epbx 10,000 Units/Ml Vial IV PUSH TuThSa@1400 LAUREN Glucagon 1 mg 05/03/22 21:39 Glucagon For Inj 1 Mg Vial IM PRN PRN Hypoglycemia Protocol Glucose 15 gm 05/03/22 21:39 Glucose Oral Gel 15 Gm Of Glucse In 37.5 Gm Tube PO PRN PRN Hypoglyc
[2022-05-06 12:29] LABS: Glucose Point of Care 94 mg/dl (65-105)
[2022-05-06 14:32] LABS: Albumin Level 3.7 g/dL (3.5-5.1); Anion Gap 2 mmol/L (8-16); Blood Urea Nitrogen 11 mg/dL (7-17); Calcium 8.6 mg/dL (8.4-10.2); Carbon Dioxide 36 mmol/L (22-30); Chloride 98 mmol/L (98-107); Estimated CRCL calculation 38 ml/min; Estimated Glomerular Filt Rate 53; Glucose 83 mg/dL (65-110); Magnesium 1.9 mg/dL (1.6-2.3); Phosphorus 2.1 mg/dL (2.5-4.5); Potassium 3.9 mmol/L (3.4-5.0); Sodium 136 mmol/L (137-145)
--- NOTE | 2022-05-06 14:40 | PC.NURSE ---
Back from dialysis via bed.
--- NOTE | 2022-05-06 16:00 | PM.IMPN ---
Progress Note: A&P Assessment and Plan (1) Acute on chronic anemia: Code(s): D64.9 - Anemia, unspecified Status: Acute Assessment and Plan: Baseline hemoglobin ranges between 7.5 and 8.5. She was given 2 units of packed red blood cells. Hemoglobin dropped again this morning to 6.9. Patient receiving 1 unit of PRBC. Will consult GI (2) Heme positive stool: Code(s): R19.5 - Other fecal abnormalities Status: Acute Assessment and Plan: Stool was once again Hemoccult-positive. She was hospitalized in July an EGD at that time showed Schatzki's rings, gastric polyps, duodenal polyps, and hiatal hernia without evidence of bleeding. Colonoscopy last month showed a few diverticuli without perforation or abscess without bleeding. GI consultation. Continue PPI. 05/06/2022 interval history: 87-year-old female with history end-stage renal disease on hemodialysis patient became hypotensive and complaint of dizziness while on dialysis patient was sent to emergency depart upon arrival patient hemoglobin was 6.9 patient received 1 unit of pack RBC, patient seen by GI recently patient had a EGD and colonoscopy without source of bleeding however patient stool Hemoccult is positive seen by GI recommended capsule endoscopy as outpatient, patient also has risk of anemia due to end-stage renal disease on hemodialysis seen by Nephrology and being treated with Epogen, remains clinically stable will continue to monitor. (3) Chronic respiratory failure with hypoxia: Code(s): J96.11 - Chronic respiratory failure with hypoxia Status: Chronic Assessment and Plan: She is now back at her baseline on her typical oxygen requirement without issue. Chest x-ray does show moderate right-sided loculated pleural effusion. Will order IR guided thoracentesis (4) End-stage renal disease on hemodialysis: Code(s): N18.6 - End stage renal disease; Z99.2 - Dependence on renal dialysis Status: Acute Assessment and Plan: Dr. Diaz consulted for dialysis. (5) Gastroesophageal reflux disease: Code(s): K21.9 - Gastro-esophageal reflux disease without esophagitis Status: Acute Assessment and Plan: Continue PPI. (6) Hypertension: Code(s): I10 - Essential (primary) hypertension Status: Chronic Assessment and Plan: Blood pressures were reviewed and they are stable. Continue antihypertensives and monitor. (7) Insulin dependent type 2 diabetes mellitus: Code(s): E11.9 - Type 2 diabetes mellitus without complications; Z79.4 - custodial (current) use of insulin Status: Acute Assessment and Plan: No longer requiring insulin or medication for that matter. Most recent hemoglobin A1c was 4.7%. (8) Hypothyroidism: Code(s): E03.9 - Hypothyroidism, unspecified Status: Acute Assessment and Plan: Continue levothyroxine and check TSH. Subjective Date/time seen: 05/06/22 16:00 Stool was once again Hemoccult-positive. She was hospitalized in July an EGD at that time showed Schatzki's rings, gastric polyps, duodenal polyps, and hiatal hernia without evidence of bleeding.? Colonoscopy last month showed a few diverticuli without perforation or abscess without bleeding.? GI consultation. Continue PPI. 05/06/2022 interval history: 87-year-old female with history end-stage renal disease on hemodialysis patient became hypotensive and complaint of dizziness while on dialysis patient was sent to emergency depart upon arrival patient hemoglobin was 6.9 patient received 1 unit of pack RBC, patient seen by GI recently patient had a EGD and colonoscopy without source of bleeding however patient stool Hemoccult is positive seen by GI recommended capsule endoscopy as outpatient, patient also has risk of anemia due to end-stage renal disease on hemodialysis seen by Nephrology and being treated with Epogen, remains clinically stable will
[2022-05-06 16:58] LABS: Glucose Point of Care 117 mg/dl (65-105)
[2022-05-06] MEDS: ATORVASTATIN 20 MG TABLET PO (20:51)
[2022-05-06] MEDS: LATANOPROST 0.005% OP SOLN 2.5 ML BTL 1 DROP EACH EYE (20:51)
[2022-05-06 21:59] LABS: Glucose Point of Care 116 mg/dl (65-105)
[2022-05-07] VITALS (11 sets, daily range): BP systolic 118–180; BP diastolic 34–52; PULSE 58–76; RESP 14–20; TEMP 36.1–36.6; O2SAT 95–100
[2022-05-07] MEDS: ACETAMINOPHEN 500 MG TABLET 1000 MG PO ×2 (01:36→13:07)
[2022-05-07] MEDS: LEVOTHYROXINE SODIUM 100 MCG TABLET PO (05:59)
[2022-05-07 08:14] LABS: Hematocrit 28.6 % (37.0-47.0); Hemoglobin 8.3 g/dL (12.0-15.0); Mean Corpuscular Hemoglobin 29.5 pg (26-34); Mean Corpuscular Volume 101.8 fl (80-100); Mean Platelet Volume 10.9 fl (7.4-10.4); Platelet Count Result 210 k/mm3 (150-375); Red Blood Count 2.81 M/mm3 (4.2-5.4); Red Cell Distribution Width 18.8 % (11.5-14.5); White Blood Count 5.9 K/mm3 (4.5-10.0)
[2022-05-07 08:26] LABS: Glucose Point of Care 79 mg/dl (65-105)
[2022-05-07 08:28] LABS: Albumin Level 3.8 g/dL (3.5-5.1); Anion Gap 4 mmol/L (8-16); Blood Urea Nitrogen 23 mg/dL (7-17); Calcium 8.5 mg/dL (8.4-10.2); Carbon Dioxide 33 mmol/L (22-30); Chloride 100 mmol/L (98-107); Estimated CRCL calculation 20 ml/min; Estimated Glomerular Filt Rate 24; Glucose 82 mg/dL (65-110); Magnesium 2.1 mg/dL (1.6-2.3); Phosphorus 3.2 mg/dL (2.5-4.5); Potassium 4.5 mmol/L (3.4-5.0); Sodium 137 mmol/L (137-145)
[2022-05-07] MEDS: PANTOPRAZOLE SODIUM IV 40 MG VIAL IV PUSH (09:24)
[2022-05-07] MEDS: amLODIPine BESYLATE 5 MG TABLET 10 MG PO (09:24)
[2022-05-07] MEDS: cloNIDine HCL 0.1 MG TABLET PO ×2 (09:24→13:07)
[2022-05-07 11:52] LABS: Glucose Point of Care 86 mg/dl (65-105)
--- NOTE | 2022-05-07 12:17 | P.PNNP_ITS ---
Progress Note: A&P Assessment and Plan (1) ESRD (end stage renal disease): Code(s): N18.6 - End stage renal disease Status: Chronic Assessment and Plan: * HD yesterday * continue HD on T/T/S schedule while hospitalized * follow electrolytes, volume status, and clearance (2) Acute on chronic anemia: Code(s): D64.9 - Anemia, unspecified Status: Acute Assessment and Plan: * partly due to ESRD * however, has had recurrent issues with this in the past (see previous hospitalizations) * GI recommendations noted - capsule endoscopy as outpatient * PRBC transfusion per protocol * Epogen with HD * follow trend of H/H (3) Hypertension: Code(s): I10 - Essential (primary) hypertension Status: Chronic Assessment and Plan: * reasonable control at this time * follow trend of hemodynamics * continue current medications (4) Renal osteodystrophy: Code(s): N25.0 - Renal osteodystrophy Status: Acute Assessment and Plan: * calcium and phosphorus stable * follow parameters (5) Insulin dependent type 2 diabetes mellitus: Code(s): E11.9 - Type 2 diabetes mellitus without complications; Z79.4 - vermin exterminator (current) use of insulin Status: Chronic Assessment and Plan: * blood sugars by AM labs normal * glycemic control if needed Will continue to follow. Subjective Date/time seen: 05/07/22 12:17 Tolerated hemodialysis treatment yesterday without any issues or problems; s/p right sided thoracentesis earlier today and tolerated this intervention as well; no acute distress voiced; no other events overnight or earlier this AM. Exam Narrative: General: elderly female in NAD Heart: normal S1 and S2; no rub Lungs: coarse breath sounds; decreased at bases Abdomen: soft, nontender, nondistended, positive bowel sounds Extremities: no cyanosis or clubbing; no edema Skin: no rash Objective Data Vital Signs Vital Signs: Vital Signs Temp Pulse Resp BP Pulse Ox O2 Del Method O2 Flow Rate 05/07/22 12:00 64 05/07/22 08:00 76 05/07/22 09:20 95 Nasal Cannula 3 05/07/22 10:51 71 18 169/52 H 95 05/07/22 10:51 66 18 167/44 H 98 05/07/22 06:00 97.6 F 73 20 180/45 H 95 05/07/22 04:00 72 05/07/22 00:00 72 05/06/22 19:50 68 05/06/22 22:00 98.5 F 67 20 170/50 H 98 Intake/Output Intake/Output: Intake & Output 05/04/22 05/05/22 05/06/22 05/07/22 23:59 23:59 23:59 23:59 Intake Total 240 1190 550 100 Output Total 3000 3000 1000 Balance -2760 1190 -2450 -900 Meds/Results Medications: Active Medications Generic Name Dose Route Start Last Admin Trade Name Freq PRN Reason Stop Dose Admin Acetaminophen 1,000 mg 05/04/22 06:54 05/07/22 13:07 Acetaminophen 500 Mg Tablet PO 1,000 mg Q6H PRN Administration Mild Pain (1-3) or Fever Amlodipine Besylate 10 mg 05/06/22 09:00 05/07/22 09:24 Amlodipine Besylate 5 Mg Tablet PO 10 mg QAM LAUREN Administration Atorvastatin Calcium 20 mg 05/05/22 21:00 05/06/22 20:51 Atorvas
--- NOTE | 2022-05-07 12:17 | PM.PNNEP ---
Progress Note: A&P Assessment and Plan (1) ESRD (end stage renal disease): Code(s): N18.6 - End stage renal disease Status: Chronic Assessment and Plan: HD yesterday continue HD on T/T/S schedule while hospitalized follow electrolytes, volume status, and clearance (2) Acute on chronic anemia: Code(s): D64.9 - Anemia, unspecified Status: Acute Assessment and Plan: partly due to ESRD however, has had recurrent issues with this in the past (see previous hospitalizations) GI recommendations noted - capsule endoscopy as outpatient PRBC transfusion per protocol Epogen with HD follow trend of H/H (3) Hypertension: Code(s): I10 - Essential (primary) hypertension Status: Chronic Assessment and Plan: reasonable control at this time follow trend of hemodynamics continue current medications (4) Renal osteodystrophy: Code(s): N25.0 - Renal osteodystrophy Status: Acute Assessment and Plan: calcium and phosphorus stable follow parameters (5) Insulin dependent type 2 diabetes mellitus: Code(s): E11.9 - Type 2 diabetes mellitus without complications; Z79.4 - numerical control programmer (current) use of insulin Status: Chronic Assessment and Plan: blood sugars by AM labs normal glycemic control if needed Will continue to follow. Subjective Date/time seen: 05/07/22 12:17 Tolerated hemodialysis treatment yesterday without any issues or problems; s/p right sided thoracentesis earlier today and tolerated this intervention as well; no acute distress voiced; no other events overnight or earlier this AM. Exam Narrative: General: elderly female in NAD Heart: normal S1 and S2; no rub Lungs: coarse breath sounds; decreased at bases Abdomen: soft, nontender, nondistended, positive bowel sounds Extremities: no cyanosis or clubbing; no edema Skin: no rash Objective Data Vital Signs Vital Signs: Vital Signs Temp Pulse Resp BP Pulse Ox O2 Del Method O2 Flow Rate 05/07/22 12:00 64 05/07/22 08:00 76 05/07/22 09:20 95 Nasal Cannula 3 05/07/22 10:51 71 18 169/52 H 95 05/07/22 10:51 66 18 167/44 H 98 05/07/22 06:00 97.6 F 73 20 180/45 H 95 05/07/22 04:00 72 05/07/22 00:00 72 05/06/22 19:50 68 05/06/22 22:00 98.5 F 67 20 170/50 H 98 Intake/Output Intake/Output: Intake & Output 05/04/22 05/05/22 05/06/22 05/07/22 23:59 23:59 23:59 23:59 Intake Total 240 1190 550 100 Output Total 3000 3000 1000 Balance -2760 1190 -2450 -900 Meds/Results Medications: Active Medications Generic Name Dose Route Start Last Admin Trade Name Freq PRN Reason Stop Dose Admin Acetaminophen 1,000 mg 05/04/22 06:54 05/07/22 13:07 Acetaminophen 500 Mg Tablet PO 1,000 mg Q6H PRN Administration Mild Pain (1-3) or Fever Amlodipine Besylate 10 mg 05/06/22 09:00 05/07/22 09:24 Amlodipine Besylate 5 Mg Tablet PO 10 mg QAM LAUREN Administration Atorvastatin Calcium 20 mg 05/05/22 21:00 05/06/22 20:51 Atorvastatin 20 Mg Tablet PO 20 mg HS LAUREN Administration Clonidine HCl 0.1 mg 05/05/22 13:00 05/07/22 13:07 Clonidine Hcl 0.1 Mg Tablet PO 0.1 mg TID LAUREN Administration Dextrose 12.5 gm 05/03/22 21:39 Dextrose 50% 25 Gm/50 Ml Syringe IV PUSH PRN PRN Hypoglycemia Protocol Epoetin Samuel-epbx 10,000 units 05/04/22 14:00 05/06/22 15:30 Epoetin Samuel-Epbx 10,000 Units/Ml Vial IV PUSH Not Given TuThSa@1400 LAUREN Glucagon 1 mg 05/03/22 21:39 Glucagon For Inj 1 Mg Vial IM PRN PRN Hypoglycemia Protocol Glucose 15 gm 05/03/22 21:39 Glucose Oral Gel 15 Gm Of Glucse In 37.5 Gm Tube PO PRN PRN Hypoglycemia Protocol Dextrose 1,000 mls @ 100 mls/hr 05/03/22 21:39 Dextrose 5% 1,000 Ml IVPB PRN PRN Hypoglycemia Protocol Album
--- NOTE | 2022-05-07 14:19 | PM.IMPN ---
Progress Note: A&P Assessment and Plan (1) Acute on chronic anemia: Code(s): D64.9 - Anemia, unspecified Status: Acute Assessment and Plan: Baseline hemoglobin ranges between 7.5 and 8.5. She was given 2 units of packed red blood cells. Hemoglobin dropped again this morning to 6.9. Patient receiving 1 unit of PRBC. Will consult GI (2) Heme positive stool: Code(s): R19.5 - Other fecal abnormalities Status: Acute Assessment and Plan: Stool was once again Hemoccult-positive. She was hospitalized in July an EGD at that time showed Schatzki's rings, gastric polyps, duodenal polyps, and hiatal hernia without evidence of bleeding. Colonoscopy last month showed a few diverticuli without perforation or abscess without bleeding. GI consultation. Continue PPI. 05/07/2022 interval history: 87-year-old female with history end-stage renal disease on hemodialysis patient became hypotensive and complaint of dizziness while on dialysis patient was sent to emergency depart upon arrival patient hemoglobin was 6.9 patient received 1 unit of pack RBC, her hgb today is 8.3 patient seen by GI recently patient had a EGD and colonoscopy without source of bleeding however patient stool Hemoccult is positive seen by GI recommended capsule endoscopy as outpatient, patient also has risk of anemia due to end-stage renal disease on hemodialysis seen by Nephrology and being treated with Epogen, patient with right-sided pleural effusion, patient is scheduled for thoracentesis later today, remains clinically stable will continue to monitor. (3) Chronic respiratory failure with hypoxia: Code(s): J96.11 - Chronic respiratory failure with hypoxia Status: Chronic Assessment and Plan: She is now back at her baseline on her typical oxygen requirement without issue. Chest x-ray does show moderate right-sided loculated pleural effusion. Will order IR guided thoracentesis (4) End-stage renal disease on hemodialysis: Code(s): N18.6 - End stage renal disease; Z99.2 - Dependence on renal dialysis Status: Acute Assessment and Plan: Dr. Diaz consulted for dialysis. (5) Gastroesophageal reflux disease: Code(s): K21.9 - Gastro-esophageal reflux disease without esophagitis Status: Acute Assessment and Plan: Continue PPI. (6) Hypertension: Code(s): I10 - Essential (primary) hypertension Status: Chronic Assessment and Plan: Blood pressures were reviewed and they are stable. Continue antihypertensives and monitor. 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 Most recent hemoglobin A1c was 4.7%. (8) Hypothyroidism: Code(s): E03.9 - Hypothyroidism, unspecified Status: Acute Assessment and Plan: Continue levothyroxine and check TSH. Subjective Date/time seen: 05/07/22 14:19 05/07/2022 interval history: 87-year-old female with history end-stage renal disease on hemodialysis patient became hypotensive and complaint of dizziness while on dialysis patient was sent to emergency depart upon arrival patient hemoglobin was 6.9 patient received 1 unit of pack RBC, her hgb today is 8.3 patient seen by GI recently patient had a EGD and colonoscopy without source of bleeding however patient stool Hemoccult is positive seen by GI recommended capsule endoscopy as outpatient, patient also has risk of anemia due to end-stage renal disease on hemodialysis seen by Nephrology and being treated with Epogen, patient with right-sided pleural effusion, patient is scheduled for thoracentesis later today, remains clinically stable will continue to monitor. Review of Systems Review of Systems: All systems reviewed & ar
[2022-05-07 16:54] LABS: Glucose Point of Care 96 mg/dl (65-105)
[2022-05-07] MEDS: LATANOPROST 0.005% OP SOLN 2.5 ML BTL 1 DROP EACH EYE (20:15)
[2022-05-07] MEDS: ATORVASTATIN 20 MG TABLET PO (20:15)
[2022-05-07 21:04] LABS: Glucose Point of Care 125 mg/dl (65-105)
[2022-05-08] VITALS (10 sets, daily range): BP systolic 135–152; BP diastolic 34–47; PULSE 58–69; RESP 18–20; TEMP 36.3–36.6; O2SAT 98–99
[2022-05-08] MEDS: LEVOTHYROXINE SODIUM 100 MCG TABLET PO (06:22)
[2022-05-08 07:18] LABS: Hematocrit 25.7 % (37.0-47.0); Hemoglobin 7.6 g/dL (12.0-15.0); Mean Corpuscular HGB Conc 29.6 g/dl (32-36); Mean Corpuscular Hemoglobin 29.9 pg (26-34); Mean Corpuscular Volume 101.2 fl (80-100); Mean Platelet Volume 10.8 fl (7.4-10.4); Platelet Count Result 224 k/mm3 (150-375); Red Blood Count 2.54 M/mm3 (4.2-5.4); Red Cell Distribution Width 18.4 % (11.5-14.5); White Blood Count 6.2 K/mm3 (4.5-10.0)
[2022-05-08 07:27] LABS: Albumin Level 3.5 g/dL (3.5-5.1); Anion Gap 4 mmol/L (8-16); Blood Urea Nitrogen 37 mg/dL (7-17); Calcium 8.4 mg/dL (8.4-10.2); Carbon Dioxide 32 mmol/L (22-30); Chloride 96 mmol/L (98-107); Estimated CRCL calculation 14 ml/min; Estimated Glomerular Filt Rate 15; Glucose 80 mg/dL (65-110); Magnesium 2.1 mg/dL (1.6-2.3); Phosphorus 3.9 mg/dL (2.5-4.5); Potassium 4.7 mmol/L (3.4-5.0); Sodium 132 mmol/L (137-145)
[2022-05-08 07:44] LABS: Glucose Point of Care 76 mg/dl (65-105)
[2022-05-08] MEDS: cloNIDine HCL 0.1 MG TABLET PO ×3 (09:11→17:20)
[2022-05-08] MEDS: amLODIPine BESYLATE 5 MG TABLET 10 MG PO (09:11)
[2022-05-08] MEDS: PANTOPRAZOLE SODIUM IV 40 MG VIAL IV PUSH (09:11)
--- NOTE | 2022-05-08 09:30 | P.PNNP_ITS ---
Progress Note: A&P Assessment and Plan (1) ESRD (end stage renal disease): Code(s): N18.6 - End stage renal disease Status: Chronic Assessment and Plan: * HD due tomorrow * continue HD on T/T/S * volume status looks better * electrolytes okay (2) Acute on chronic anemia: Code(s): D64.9 - Anemia, unspecified Status: Acute Assessment and Plan: * partly due to ESRD * however, has had recurrent issues with this in the past (see previous hospitalizations) * GI recommendations noted - capsule endoscopy as outpatient * hemoglobin comes up with transfusion but then starts dropping again. Today down to 7.6. * Coags are okay. Platelet count is normal. * Check haptoglobin and LDH to be sure she isn't hemolyzing. * If not consider DDAVP? (3) Hypertension: Code(s): I10 - Essential (primary) hypertension Status: Chronic Assessment and Plan: * Systolic ranging from 130-180. * She is on clonidine, amlodipine, and is not allergic to anything. * Will try losartan. Possibly the blood pressure is varying widely because of the clonidine. Maybe we can get her off of this. * Start losartan 50 (4) Renal osteodystrophy: Code(s): N25.0 - Renal osteodystrophy Status: Acute Assessment and Plan: * calcium and phosphorus stable * follow parameters (5) Insulin dependent type 2 diabetes mellitus: Code(s): E11.9 - Type 2 diabetes mellitus without complications; Z79.4 - FDC (current) use of insulin Status: Chronic Assessment and Plan: * management per hospitalist Subjective Date/time seen: 05/08/22 09:30 Interval history: 05/05 The patient looks better today. She is not as short of breath. She still has some nausea. She feels generally blah 05/08 the patient feels better today. No chest pain or shortness of breath due for dialysis tomorrow Exam Narrative: General: elderly female in NAD Heart: normal S1 and S2; no rub or gallop Lungs: coarse breath sounds; decreased at bases Abdomen: soft, nontender, nondistended, positive bowel sounds Extremities: no cyanosis or clubbing; no edema Skin: no rash or subcu nodules Objective Data Vital Signs Vital Signs: Vital Signs - 24 hr 05/07/22 10:51 05/07/22 10:51 05/07/22 12:00 Temperature Pulse Rate 66 71 64 Respiratory Rate 18 18 Blood Pressure 167/44 H 169/52 H Pulse Oximetry 98 95 05/07/22 14:00 05/07/22 16:00 05/07/22 22:00 Temperature 97 F L 98 F Pulse Rate 58 L 64 61 Respiratory Rate 14 20 Blood Pressure 118/34 L 145/40 H Pulse Oximetry 99 100 05/07/22 19:50 05/08/22 00:00 05/08/22 04:00 Temperature Pulse Rate 61 63 59 L Respiratory Rate Blood Pressure Pulse Oximetry 05/08/22 06:00 Temperature 97.9 F Pulse Rate 64 Respiratory Rate 20 Blood Pressure 151/34 H Pulse Oximetry 99 Intake/Output Intake/Output: Intake & Output 05/05/22 05/06/22 05/07/22 05/08/22 23:59 23:59 23:59 23:59 Intake Total 1190 550 590 50 Output Total 3000 1000 Balance
--- NOTE | 2022-05-08 09:30 | PM.PNNEP ---
Progress Note: A&P Assessment and Plan (1) ESRD (end stage renal disease): Code(s): N18.6 - End stage renal disease Status: Chronic Assessment and Plan: HD due tomorrow continue HD on T/T/S volume status looks better electrolytes okay (2) Acute on chronic anemia: Code(s): D64.9 - Anemia, unspecified Status: Acute Assessment and Plan: partly due to ESRD however, has had recurrent issues with this in the past (see previous hospitalizations) GI recommendations noted - capsule endoscopy as outpatient hemoglobin comes up with transfusion but then starts dropping again. Today down to 7.6. Coags are okay. Platelet count is normal. Check haptoglobin and LDH to be sure she isn't hemolyzing. If not consider DDAVP? (3) Hypertension: Code(s): I10 - Essential (primary) hypertension Status: Chronic Assessment and Plan: Systolic ranging from 130-180. She is on clonidine, amlodipine, and is not allergic to anything. Will try losartan. Possibly the blood pressure is varying widely because of the clonidine. Maybe we can get her off of this. 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 She is not as short of breath. She still has some nausea. She feels generally blah 05/08 the patient feels better today. No chest pain or shortness of breath due for dialysis tomorrow Exam Narrative: General: elderly female in NAD Heart: normal S1 and S2; no rub or gallop Lungs: coarse breath sounds; decreased at bases Abdomen: soft, nontender, nondistended, positive bowel sounds Extremities: no cyanosis or clubbing; no edema Skin: no rash or subcu nodules Objective Data Vital Signs Vital Signs: Vital Signs - 24 hr 05/07/22 10:51 05/07/22 10:51 05/07/22 12:00 Temperature Pulse Rate 66 71 64 Respiratory Rate 18 18 Blood Pressure 167/44 H 169/52 H Pulse Oximetry 98 95 05/07/22 14:00 05/07/22 16:00 05/07/22 22:00 Temperature 97 F L 98 F Pulse Rate 58 L 64 61 Respiratory Rate 14 20 Blood Pressure 118/34 L 145/40 H Pulse Oximetry 99 100 05/07/22 19:50 05/08/22 00:00 05/08/22 04:00 Temperature Pulse Rate 61 63 59 L Respiratory Rate Blood Pressure Pulse Oximetry 05/08/22 06:00 Temperature 97.9 F Pulse Rate 64 Respiratory Rate 20 Blood Pressure 151/34 H Pulse Oximetry 99 Intake/Output Intake/Output: Intake & Output 05/05/22 05/06/22 05/07/22 05/08/22 23:59 23:59 23:59 23:59 Intake Total 1190 550 590 50 Output Total 3000 1000 Balance 1190 -2450 -410 50 Meds/Results Medications: Active Medications Generic Name Dose Route Start Last Admin Trade Name Freq PRN Reason Stop Dose Admin Acetaminophen 1,000 mg 05/04/22 06:54 05/07/22 13:07 Acetaminophen 500 Mg Tablet PO 1,000 mg Q6H PRN Administration Mild Pain (1-3) or Fever Amlodipine Besylate 10 mg 05/06/22 09:00 05/08/22 09:11 Amlodipine Besylate 5 Mg Tablet PO 10 mg QAM LAUREN Administration Atorvastatin Calcium 20 mg 05/05/22 21:00 05/07/22 20:15 Atorvastatin 20 Mg Tablet PO 20 mg HS LAUREN Administration Clonidine HCl 0.1 mg 05/05/22 13:00 05/08/22 09:11 Clonidine Hcl 0.1 Mg Tablet PO 0.1 mg TID LAUREN Administration Dextrose 12.5 gm 05/03/22 21:39 Dextrose 50% 25 Gm/50 Ml Syringe IV PUSH PRN PRN Hypoglycemia Protocol Epoetin Samuel-epbx 10,000 units
[2022-05-08 10:04] LABS: Lactate Dehydrogenase 122 U/L (120-246)
[2022-05-08 11:32] LABS: Glucose Point of Care 128 mg/dl (65-105)
--- NOTE | 2022-05-08 14:45 | PM.IMPN ---
Progress Note: A&P Assessment and Plan (1) Acute on chronic anemia: Code(s): D64.9 - Anemia, unspecified Status: Acute Assessment and Plan: Baseline hemoglobin ranges between 7.5 and 8.5. She was given 2 units of packed red blood cells. Hemoglobin dropped again this morning to 6.9. Patient receiving 1 unit of PRBC. Will consult GI (2) Heme positive stool: Code(s): R19.5 - Other fecal abnormalities Status: Acute Assessment and Plan: Stool was once again Hemoccult-positive. She was hospitalized in July an EGD at that time showed Schatzki's rings, gastric polyps, duodenal polyps, and hiatal hernia without evidence of bleeding. Colonoscopy last month showed a few diverticuli without perforation or abscess without bleeding. GI consultation. Continue PPI. 05/08/2022 interval history: 87-year-old female with history end-stage renal disease on hemodialysis patient became hypotensive and complaint of dizziness while on dialysis patient was sent to emergency depart upon arrival patient hemoglobin was 6.9 patient received 1 unit of pack RBC, her hgb was 8.3 on 05/07 and today it is 7.6 patient seen by GI recently patient had a EGD and colonoscopy without source of bleeding however patient stool Hemoccult is positive seen by GI recommended capsule endoscopy as outpatient, patient also has risk of anemia due to end-stage renal disease on hemodialysis seen by Nephrology and being treated with Epogen, patient with right-sided pleural effusion, patient is scheduled for thoracentesis later today, remains clinically stable will continue to monitor. (3) Chronic respiratory failure with hypoxia: Code(s): J96.11 - Chronic respiratory failure with hypoxia Status: Chronic Assessment and Plan: She is now back at her baseline on her typical oxygen requirement without issue. Chest x-ray does show moderate right-sided loculated pleural effusion. Will order IR guided thoracentesis (4) End-stage renal disease on hemodialysis: Code(s): N18.6 - End stage renal disease; Z99.2 - Dependence on renal dialysis Status: Acute Assessment and Plan: Dr. Diaz consulted for dialysis. (5) Gastroesophageal reflux disease: Code(s): K21.9 - Gastro-esophageal reflux disease without esophagitis Status: Acute Assessment and Plan: Continue PPI. (6) Hypertension: Code(s): I10 - Essential (primary) hypertension Status: Chronic Assessment and Plan: Blood pressures were reviewed and they are stable. Continue antihypertensives and monitor. (7) Insulin dependent type 2 diabetes mellitus: Code(s): E11.9 - Type 2 diabetes mellitus without complications; Z79.4 - MCFP (current) use of insulin Status: Chronic Assessment and Plan: No longer requiring insulin or medication for that matter. Most recent hemoglobin A1c was 4.7%. (8) Hypothyroidism: Code(s): E03.9 - Hypothyroidism, unspecified Status: Acute Assessment and Plan: Continue levothyroxine and check TSH. Subjective Date/time seen: 05/08/22 14:45 Stool was once again Hemoccult-positive. She was hospitalized in July an EGD at that time showed Schatzki's rings, gastric polyps, duodenal polyps, and hiatal hernia without evidence of bleeding. Colonoscopy last month showed a few diverticuli without perforation or abscess without bleeding. GI consultation. Continue PPI. 05/08/2022 interval history: 87-year-old female with history end-stage renal disease on hemodialysis patient became hypotensive and complaint of dizziness while on dialysis patient was sent to emergency depart upon arrival patient hemoglobin was 6.9 patient received 1 unit of pack RBC, her hgb was 8.3 on 05/07 and today it is 7.6 patient seen by GI recently patient had a EGD and colonoscopy without source of bleeding however patient stool Hemoccult is positive seen by GI recommended capsul
[2022-05-08 16:26] LABS: Glucose Point of Care 92 mg/dl (65-105)
[2022-05-08] MEDS: LATANOPROST 0.005% OP SOLN 2.5 ML BTL 1 DROP EACH EYE (19:39)
[2022-05-08] MEDS: ATORVASTATIN 20 MG TABLET PO (19:39)
[2022-05-09] VITALS (26 sets, daily range): BP systolic 90–157; BP diastolic 35–52; PULSE 56–74; RESP 16–20; TEMP 35.6–37; O2SAT 98–100
[2022-05-09] MEDS: LEVOTHYROXINE SODIUM 100 MCG TABLET PO (06:27)
[2022-05-09 06:42] LABS: Hematocrit 22.9 % (37.0-47.0); Mean Corpuscular HGB Conc 30.1 g/dl (32-36); Mean Corpuscular Hemoglobin 30.7 pg (26-34); Mean Corpuscular Volume 101.8 fl (80-100); Mean Platelet Volume 10.6 fl (7.4-10.4); Platelet Count Result 245 k/mm3 (150-375); Red Blood Count 2.25 M/mm3 (4.2-5.4); Red Cell Distribution Width 17.7 % (11.5-14.5); White Blood Count 5.4 K/mm3 (4.5-10.0)
[2022-05-09 07:05] LABS: Albumin Level 3.3 g/dL (3.5-5.1); Anion Gap 4 mmol/L (8-16); Blood Urea Nitrogen 54 mg/dL (7-17); Calcium 7.8 mg/dL (8.4-10.2); Carbon Dioxide 31 mmol/L (22-30); Chloride 98 mmol/L (98-107); Estimated CRCL calculation 11 ml/min; Estimated Glomerular Filt Rate 12; Glucose 77 mg/dL (65-110); Magnesium 2.3 mg/dL (1.6-2.3); Phosphorus 4.9 mg/dL (2.5-4.5); Potassium 5.7 mmol/L (3.4-5.0); Sodium 133 mmol/L (137-145)
[2022-05-09 07:06] LABS: Hemoglobin 6.9 g/dL (12.0-15.0)
[2022-05-09] MEDS: SODIUM CHLORIDE 0.9% IV 1,000 ML 999 ML IV CONT (08:00)
[2022-05-09] MEDS: cloNIDine HCL 0.1 MG TABLET PO ×3 (08:10→16:33)
[2022-05-09] MEDS: PANTOPRAZOLE SODIUM IV 40 MG VIAL IV PUSH (08:10)
[2022-05-09] MEDS: amLODIPine BESYLATE 5 MG TABLET 10 MG PO (08:10)
[2022-05-09 08:32] LABS: Glucose Point of Care 73 mg/dl (65-105)
[2022-05-09] MEDS: EPOETIN ALFA-EPBX 10,000 UNITS/ML VIAL 10000 UNITS IV PUSH (11:06)
--- NOTE | 2022-05-09 11:06 | PM.PNNEP ---
Progress Note: A&P Assessment and Plan (1) ESRD (end stage renal disease): Code(s): N18.6 - End stage renal disease Status: Chronic Assessment and Plan: patient is on dialysis right now (2) Acute on chronic anemia: Code(s): D64.9 - Anemia, unspecified Status: Acute Assessment and Plan: hemoglobin dropped again. Gastroenterology is on the case LDH is normal there is not rapid bleeding but just persistent bleeding. I do not think DDAVP would help. 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 She is not as short of breath. She still has some nausea. She feels generally blah 05/08 the patient feels better today. No chest pain or shortness of breath due for dialysis tomorrow 05/09 the patient is feeling okay today. She is on dialysis right now tolerating it well. Blood pressure is doing pretty well. She is going to receive a blood transfusion. She was seen at 10:30 a.m. Review of Systems Cardiovascular: Cardiovascular: Reports no additional cardiovascular complaints Respiratory: Respiratory: Reports no additional respiratory complaints Gastrointestinal: Gastrointestinal: Reports no additional gastrointestinal complaints Genitourinary: Genitourinary: Reports no additional female genitourinary complaints Exam Narrative: WDWN in NAD skin no rash head ncat lungs clear cor reg no rub or gallop abd BS+ nontender and soft ext no edema. Objective Data Vital Signs Vital Signs: Vital Signs - 24 hr 05/08/22 14:00 05/08/22 12:00 05/08/22 16:00 Temperature 97.4 F L Pulse Rate 61 69 59 L Respiratory Rate 20 Blood Pressure 152/47 H Pulse Oximetry 98 Oxygen Flow Rate 05/08/22 20:00 05/08/22 22:00 05/09/22 00:00 Temperature 97.4 F L Pulse Rate 58 L 69 74 Respiratory Rate 18 Blood Pressure 135/39 L Pulse Oximetry 99 Oxygen Flow Rate 05/09/22 04:00 05/09/22 06:00 05/09/22 09:06 Temperature 97.2 F L Pulse Rate 56 L 60 58 L Respiratory Rate 18 Blood Pressure 157/44 H 115/42 L Pulse Oximetry 100 Oxygen Flow Rate 05/09/22 08:55 05/09/22 08:55 05/09/22 09:20 Temperature 97.8 F Pulse Rate 60 57 L Respiratory Rate 16 Blood Pressure 125/52 L 97/40 L Pulse Oximetry Oxygen Flow Rate 4 05/09/22 09:40 05/09/22 10:00 05/09/22 10:16 Temperature 97.8 F Pulse Rate 61 61 61 Respiratory Rate 16 Blood Pressure 96/41 L 102/38 L 102/38 L Pulse Oximetry Oxygen Flow Rate 05/09/22 10:20 05/09/22 10:35 05/09/22 10:40 Temperature 97.6 F Pulse Rate 65 61 61 Respiratory Rate 16 Blood Pressure 100/41 L 102/41 L 102/41 L Pulse Oximetry Oxygen Flow Rate 05/09/22 11:03 05/09/22 11:00 Temperature 97.8 F Pulse Rate 60 60 Respiratory Rate 16 Blood Pressure 125/41 L 125/41 L Pulse Oximetry Oxygen Flow Rate Intake/Output Intake/Output: Intake & Output 05/06/22 05/07/22 05/08/22 05/09/22 23:59 23:59 23:59 23:59 Intake Total 954 692 4135 440 Output Total 3000 1000 Balance -2450 -410 1270 440 Meds/Results Medications: Active Medications Generic Name Dose Route Start Last Admin Trade Name Freq PRN Reason Stop Dose Admin Acetaminophen 1,000 mg 05/04/22 06:54 05/07/22 13:07 Acetaminophen 500 Mg Tab
[2022-05-09 16:51] LABS: Glucose Point of Care 94 mg/dl (65-105)
--- NOTE | 2022-05-09 17:11 | PM.IMPN ---
Progress Note: A&P Assessment and Plan (1) Acute on chronic anemia: Code(s): D64.9 - Anemia, unspecified Status: Acute Assessment and Plan: Baseline hemoglobin ranges between 7.5 and 8.5. She was given 2 units of packed red blood cells. Hemoglobin dropped again this morning to 6.9. Patient receiving 1 unit of PRBC. Will consult GI (2) Heme positive stool: Code(s): R19.5 - Other fecal abnormalities Status: Acute Assessment and Plan: Stool was once again Hemoccult-positive. She was hospitalized in July an EGD at that time showed Schatzki's rings, gastric polyps, duodenal polyps, and hiatal hernia without evidence of bleeding. Colonoscopy last month showed a few diverticuli without perforation or abscess without bleeding. GI consultation. Continue PPI. 05/09/2022 interval history: 87-year-old female with history end-stage renal disease on hemodialysis patient became hypotensive and complaint of dizziness while on dialysis patient was sent to emergency depart upon arrival patient hemoglobin was 6.9 patient received 1 unit of pack RBC, her hgb was 8.3 on 05/07 and today it drop t0o 6.9 again patient was seen by GI recently patient had a EGD and colonoscopy without source of bleeding however patient stool Hemoccult is positive seen by GI recommended capsule endoscopy as outpatient, will give patient 1 unit PRBC today, will monitor, patient also has risk of anemia due to end-stage renal disease on hemodialysis seen by Nephrology and being treated with Epogen, patient with right-sided pleural effusion, patient is had thoracentesis on 05/07 and 1L was collected , remains clinically stable will continue to monitor. (3) Chronic respiratory failure with hypoxia: Code(s): J96.11 - Chronic respiratory failure with hypoxia Status: Chronic Assessment and Plan: She is now back at her baseline on her typical oxygen requirement without issue. Chest x-ray does show moderate right-sided loculated pleural effusion. Will order IR guided thoracentesis (4) End-stage renal disease on hemodialysis: Code(s): N18.6 - End stage renal disease; Z99.2 - Dependence on renal dialysis Status: Acute Assessment and Plan: Dr. Diaz consulted for dialysis. (5) Gastroesophageal reflux disease: Code(s): K21.9 - Gastro-esophageal reflux disease without esophagitis Status: Acute Assessment and Plan: Continue PPI. (6) Hypertension: Code(s): I10 - Essential (primary) hypertension Status: Chronic Assessment and Plan: Blood pressures were reviewed and they are stable. Continue antihypertensives and monitor. (7) Insulin dependent type 2 diabetes mellitus: Code(s): E11.9 - Type 2 diabetes mellitus without complications; Z79.4 - custodial (current) use of insulin Status: Chronic Assessment and Plan: No longer requiring insulin or medication for that matter. Most recent hemoglobin A1c was 4.7%. (8) Hypothyroidism: Code(s): E03.9 - Hypothyroidism, unspecified Status: Acute Assessment and Plan: Continue levothyroxine and check TSH. Subjective Date/time seen: 05/09/22 17:11 Stool was once again Hemoccult-positive. She was hospitalized in July an EGD at that time showed Schatzki's rings, gastric polyps, duodenal polyps, and hiatal hernia without evidence of bleeding. Colonoscopy last month showed a few diverticuli without perforation or abscess without bleeding. GI consultation. Continue PPI. 05/09/2022 interval history: 87-year-old female with history end-stage renal disease on hemodialysis patient became hypotensive and complaint of dizziness while on dialysis patient was sent to emergency depart upon arrival patient hemoglobin was 6.9 patient received 1 unit of pack RBC, her hgb was 8.3 on 05/07 and today it drop t0o 6.9 again patient was seen by GI recently patient had a EGD and colonoscopy withou
[2022-05-09] MEDS: LATANOPROST 0.005% OP SOLN 2.5 ML BTL 1 DROP EACH EYE (22:04)
[2022-05-09] MEDS: ATORVASTATIN 20 MG TABLET PO (22:04)
[2022-05-10] VITALS (8 sets, daily range): BP systolic 125–136; BP diastolic 40–44; PULSE 56–62; RESP 18; TEMP 36.6–36.8; O2SAT 95–98
[2022-05-10] MEDS: LEVOTHYROXINE SODIUM 100 MCG TABLET PO (06:32)
[2022-05-10 06:58] LABS: Hematocrit 27.8 % (37.0-47.0); Hemoglobin 8.4 g/dL (12.0-15.0); Mean Corpuscular HGB Conc 30.2 g/dl (32-36); Mean Corpuscular Hemoglobin 30.2 pg (26-34); Mean Platelet Volume 10.5 fl (7.4-10.4); Platelet Count Result 212 k/mm3 (150-375); Red Blood Count 2.78 M/mm3 (4.2-5.4); White Blood Count 4.3 K/mm3 (4.5-10.0)
[2022-05-10 07:27] LABS: Albumin Level 3.5 g/dL (3.5-5.1); Anion Gap 3 mmol/L (8-16); Blood Urea Nitrogen 28 mg/dL (7-17); Calcium 7.7 mg/dL (8.4-10.2); Carbon Dioxide 37 mmol/L (22-30); Chloride 94 mmol/L (98-107); Estimated CRCL calculation 14 ml/min; Estimated Glomerular Filt Rate 16; Glucose 77 mg/dL (65-110); Magnesium 2.1 mg/dL (1.6-2.3); Phosphorus 3.9 mg/dL (2.5-4.5); Potassium 4.7 mmol/L (3.4-5.0); Sodium 134 mmol/L (137-145)
[2022-05-10 08:05] LABS: Glucose Point of Care 77 mg/dl (65-105)
[2022-05-10] MEDS: amLODIPine BESYLATE 5 MG TABLET 10 MG PO (09:29)
[2022-05-10] MEDS: cloNIDine HCL 0.1 MG TABLET PO ×3 (09:29→17:48)
[2022-05-10] MEDS: PANTOPRAZOLE SODIUM IV 40 MG VIAL IV PUSH (09:30)
[2022-05-10 11:40] LABS: Glucose Point of Care 147 mg/dl (65-105)
--- NOTE | 2022-05-10 11:54 | PM.PNNEP ---
Progress Note: A&P Assessment and Plan (1) ESRD (end stage renal disease): Code(s): N18.6 - End stage renal disease Status: Chronic Assessment and Plan: patient did well in dialysis yesterday. (2) Acute on chronic anemia: Code(s): D64.9 - Anemia, unspecified Status: Acute Assessment and Plan: hemoglobin Up to 8.4 today. Gastroenterology is on the case LDH is normal patient has not had a bowel movement in the last couple of days. No black or bloody stools there is not rapid bleeding but just persistent bleeding. I do not think DDAVP would help. another unit of blood will be given on dialysis (3) Hypertension: Code(s): I10 - Essential (primary) hypertension Status: Chronic Assessment and Plan: blood pressure doing well (4) Renal osteodystrophy: Code(s): N25.0 - Renal osteodystrophy Status: Acute Assessment and Plan: phosphorus level target (5) Insulin dependent type 2 diabetes mellitus: Code(s): E11.9 - Type 2 diabetes mellitus without complications; Z79.4 - lockstitch lining setter (current) use of insulin Status: Chronic Assessment and Plan: management per hospitalists Subjective Date/time seen: 05/10/22 6:15 Interval history: 05/05 The patient looks better today. She is not as short of breath. She still has some nausea. She feels generally blah 05/08 the patient feels better today. No chest pain or shortness of breath due for dialysis tomorrow 05/09 the patient is feeling okay today. She is on dialysis right now tolerating it well. Blood pressure is doing pretty well. She is going to receive a blood transfusion. She was seen at 10:30 a.m. 05/10 patient is feeling pretty good today. She is hungry for breakfast. No chest pain or shortness of breath Exam Narrative: WDWN in NAD skin no rash head ncat lungs clear lungs cor reg no rub or gallop abd BS+ nontender and soft ext no edema. Objective Data Vital Signs Vital Signs: Vital Signs - 24 hr 05/09/22 12:00 05/09/22 12:20 05/09/22 12:37 Temperature Pulse Rate 68 66 65 Respiratory Rate Blood Pressure 103/36 L 97/46 L 132/42 L Pulse Oximetry Oxygen Delivery Oxygen Flow Rate 05/09/22 12:49 05/09/22 12:45 05/09/22 14:00 Temperature 97.9 F 97.9 F 97.4 F L Pulse Rate 65 65 65 Respiratory Rate 16 16 16 Blood Pressure 118/48 L 118/48 L 127/40 L Pulse Oximetry 99 Oxygen Delivery Oxygen Flow Rate 05/09/22 16:00 05/09/22 22:00 05/09/22 20:00 Temperature 97.2 F L Pulse Rate 61 60 60 Respiratory Rate 20 Blood Pressure 113/35 L Pulse Oximetry 98 Oxygen Delivery Oxygen Flow Rate 05/09/22 20:00 05/10/22 00:00 05/10/22 06:00 Temperature 97.8 F Pulse Rate 60 56 L 61 Respiratory Rate 20 18 Blood Pressure 136/40 L Pulse Oximetry 98 95 Oxygen Delivery Nasal Cannula Oxygen Flow Rate 3 05/10/22 04:00 Temperature Pulse Rate 61 Respiratory Rate Blood Pressure Pulse Oximetry Oxygen Delivery Oxygen Flow Rate Intake/Output Intake/Output: Intake & Output 05/07/22 05/08/22 05/09/22 05/10/22 23:59 23:59 23:59 23:59 Intake Total 590 1270 1520 490 Output Total 1000 2500 Balance -410 1270 -980 490 Meds/Results Medications: Active Medications Generic Name Dose Route Start Last Admin Trade Name Terrell PRN Reason Stop Dose Admin Acetaminophen 1,000 mg 05/04/22 06:54 05/07/22 13:07 Acetaminophen 500 Mg Tablet PO 1,000 mg Q6H PRN Administration Mild Pain (1-3) or Fever Amlodipine Besylate 10 mg 05/06/22 09:00 05/10/22 09:29 Amlodipine Besylate 5 Mg Tablet PO 10 mg QAM LAUREN Administration Atorvastatin Calcium 20 mg 05/05/22 21:00 05/09/22 22:04 Atorvastatin 20 Mg Tablet PO 20 mg HS LAUREN Administration Clonidine HCl 0.1 mg 05/05/22 13:00 05/10/22 09:29 Clonidine Hcl 0.1 Mg Tablet PO 0.1 mg TID LAUREN
[2022-05-10] MEDS: polyethylene glycoL 3350 17 GM POWD.PACK PO (14:17)
[2022-05-10] MEDS: DOCUSATE SODIUM 100 MG CAPSULE PO (14:18)
--- NOTE | 2022-05-10 14:41 | PM.IMPN ---
Progress Note: A&P Assessment and Plan (1) Acute on chronic anemia: Code(s): D64.9 - Anemia, unspecified Status: Acute Assessment and Plan: Baseline hemoglobin ranges between 7.5 and 8.5. She was given 2 units of packed red blood cells. Hemoglobin dropped again this morning to 6.9. Patient receiving 1 unit of PRBC. Will consult GI (2) Heme positive stool: Code(s): R19.5 - Other fecal abnormalities Status: Acute Assessment and Plan: Stool was once again Hemoccult-positive. She was hospitalized in July an EGD at that time showed Schatzki's rings, gastric polyps, duodenal polyps, and hiatal hernia without evidence of bleeding. Colonoscopy last month showed a few diverticuli without perforation or abscess without bleeding. GI consultation. Continue PPI. 05/10/2022 interval history: 87-year-old female with history end-stage renal disease on hemodialysis patient became hypotensive and complaint of dizziness while on dialysis patient was sent to emergency depart upon arrival patient hemoglobin was 6.9 patient received 1 unit of pack RBC, her hgb was 8.3 on 05/07 and today it drop t0o 6.9 again patient was seen by GI recently patient had a EGD and colonoscopy without source of bleeding however patient stool Hemoccult is positive seen by GI recommended capsule endoscopy as outpatient, patient was given 1 unit PRBC on 05/09, today patient hgb is 8.4, will monitor, patient also has risk of anemia due to end-stage renal disease on hemodialysis seen by Nephrology and being treated with Epogen, patient with right-sided pleural effusion, patient is had thoracentesis on 05/07 and 1L was collected, today patient stats she has not had BM if few day, will give colace and Miralax remains clinically stable will continue to monitor., will discharge patient tomorrow, (3) Chronic respiratory failure with hypoxia: Code(s): J96.11 - Chronic respiratory failure with hypoxia Status: Chronic Assessment and Plan: She is now back at her baseline on her typical oxygen requirement without issue. Chest x-ray does show moderate right-sided loculated pleural effusion. Will order IR guided thoracentesis (4) End-stage renal disease on hemodialysis: Code(s): N18.6 - End stage renal disease; Z99.2 - Dependence on renal dialysis Status: Acute Assessment and Plan: Dr. Diaz consulted for dialysis. (5) Gastroesophageal reflux disease: Code(s): K21.9 - Gastro-esophageal reflux disease without esophagitis Status: Acute Assessment and Plan: Continue PPI. (6) Hypertension: Code(s): I10 - Essential (primary) hypertension Status: Chronic Assessment and Plan: Blood pressures were reviewed and they are stable. Continue antihypertensives and monitor. (7) Insulin dependent type 2 diabetes mellitus: Code(s): E11.9 - Type 2 diabetes mellitus without complications; Z79.4 - intermission coordinator (current) use of insulin Status: Chronic Assessment and Plan: No longer requiring insulin or medication for that matter. Most recent hemoglobin A1c was 4.7%. (8) Hypothyroidism: Code(s): E03.9 - Hypothyroidism, unspecified Status: Acute Assessment and Plan: Continue levothyroxine and check TSH. Subjective Date/time seen: 05/10/22 14:41 Stool was once again Hemoccult-positive. She was hospitalized in July an EGD at that time showed Schatzki's rings, gastric polyps, duodenal polyps, and hiatal hernia without evidence of bleeding. Colonoscopy last month showed a few diverticuli without perforation or abscess without bleeding. GI consultation. Continue PPI. 05/10/2022 interval history: 87-year-old female with history end-stage renal disease on hemodialysis patient became hypotensive and complaint of dizziness while on dialysis patient was sent to emergency depart upon arrival patient hemoglobin was 6.9 patient received 1 uni
[2022-05-10 16:28] LABS: Glucose Point of Care 108 mg/dl (65-105)
[2022-05-10] MEDS: BISACODYL 10 MG SUPPOSITORY RECTAL (17:49)
[2022-05-10 20:58] LABS: Glucose Point of Care 125 mg/dl (65-105)
[2022-05-11] VITALS (18 sets, daily range): BP systolic 108–149; BP diastolic 30–66; PULSE 57–77; RESP 16–17; TEMP 36.2–37; O2SAT 98
[2022-05-11] MEDS: LEVOTHYROXINE SODIUM 100 MCG TABLET PO (05:58)
[2022-05-11 07:13] LABS: Hematocrit 28.3 % (37.0-47.0); Hemoglobin 8.4 g/dL (12.0-15.0); Mean Corpuscular HGB Conc 29.7 g/dl (32-36); Mean Corpuscular Hemoglobin 29.9 pg (26-34); Mean Corpuscular Volume 100.7 fl (80-100); Mean Platelet Volume 10.8 fl (7.4-10.4); Platelet Count Result 257 k/mm3 (150-375); Red Blood Count 2.81 M/mm3 (4.2-5.4); White Blood Count 5.3 K/mm3 (4.5-10.0)
[2022-05-11 07:32] LABS: Albumin Level 3.5 g/dL (3.5-5.1); Anion Gap 4 mmol/L (8-16); Blood Urea Nitrogen 48 mg/dL (7-17); Calcium 7.9 mg/dL (8.4-10.2); Carbon Dioxide 34 mmol/L (22-30); Chloride 94 mmol/L (98-107); Estimated CRCL calculation 10 ml/min; Estimated Glomerular Filt Rate 10; Glucose 77 mg/dL (65-110); Magnesium 2.1 mg/dL (1.6-2.3); Phosphorus 4.4 mg/dL (2.5-4.5); Potassium 5.5 mmol/L (3.4-5.0); Sodium 132 mmol/L (137-145)
[2022-05-11 08:02] LABS: Glucose Point of Care 75 mg/dl (65-105)
[2022-05-11] MEDS: DOCUSATE SODIUM 100 MG CAPSULE PO (10:03)
[2022-05-11] MEDS: amLODIPine BESYLATE 5 MG TABLET 10 MG PO (10:03)
[2022-05-11] MEDS: PANTOPRAZOLE SODIUM IV 40 MG VIAL IV PUSH (10:03)
[2022-05-11] MEDS: polyethylene glycoL 3350 17 GM POWD.PACK PO ×2 (10:03→16:37)
[2022-05-11] MEDS: cloNIDine HCL 0.1 MG TABLET PO ×2 (10:03→16:37)
[2022-05-11 10:50] LABS: Haptoglobin 107 mg/dL (43-212)
[2022-05-11 11:18] LABS: Glucose Point of Care 135 mg/dl (65-105)
--- NOTE | 2022-05-11 14:31 | PM.DS ---
DS: Admitting Diagnosis Discharge Date 05/11/2022 Admitting Diagnosis Shortness of breath DS: Discharge Diagnosis Discharge Diagnosis (1) Acute on chronic anemia: Code(s): D64.9 - Anemia, unspecified Status: Acute Assessment and Plan: Baseline hemoglobin ranges between 7.5 and 8.5. She was given 2 units of packed red blood cells. Hemoglobin dropped again this morning to 6.9. Patient receiving 1 unit of PRBC. Will consult GI (2) Heme positive stool: Code(s): R19.5 - Other fecal abnormalities Status: Acute Assessment and Plan: Stool was once again Hemoccult-positive. She was hospitalized in July an EGD at that time showed Schatzki's rings, gastric polyps, duodenal polyps, and hiatal hernia without evidence of bleeding. Colonoscopy last month showed a few diverticuli without perforation or abscess without bleeding. GI consultation. Continue PPI. 05/10/2022 interval history: 87-year-old female with history end-stage renal disease on hemodialysis patient became hypotensive and complaint of dizziness while on dialysis patient was sent to emergency depart upon arrival patient hemoglobin was 6.9 patient received 1 unit of pack RBC, her hgb was 8.3 on 05/07 and today it drop t0o 6.9 again patient was seen by GI recently patient had a EGD and colonoscopy without source of bleeding however patient stool Hemoccult is positive seen by GI recommended capsule endoscopy as outpatient, patient was given 1 unit PRBC on 05/09, today patient hgb is 8.4, will monitor, patient also has risk of anemia due to end-stage renal disease on hemodialysis seen by Nephrology and being treated with Epogen, patient with right-sided pleural effusion, patient is had thoracentesis on 05/07 and 1L was collected, today patient stats she has not had BM if few day, will give colace and Miralax remains clinically stable will continue to monitor., will discharge patient tomorrow, (3) Chronic respiratory failure with hypoxia: Code(s): J96.11 - Chronic respiratory failure with hypoxia Status: Chronic Assessment and Plan: She is now back at her baseline on her typical oxygen requirement without issue. Chest x-ray does show moderate right-sided loculated pleural effusion. Will order IR guided thoracentesis (4) End-stage renal disease on hemodialysis: Code(s): N18.6 - End stage renal disease; Z99.2 - Dependence on renal dialysis Status: Acute Assessment and Plan: Dr. Diaz consulted for dialysis. (5) Gastroesophageal reflux disease: Code(s): K21.9 - Gastro-esophageal reflux disease without esophagitis Status: Acute Assessment and Plan: Continue PPI. (6) Hypertension: Code(s): I10 - Essential (primary) hypertension Status: Chronic Assessment and Plan: Blood pressures were reviewed and they are stable. Continue antihypertensives and monitor. (7) Insulin dependent type 2 diabetes mellitus: Code(s): E11.9 - Type 2 diabetes mellitus without complications; Z79.4 - buttermaker (current) use of insulin Status: Chronic Assessment and Plan: No longer requiring insulin or medication for that matter. Most recent hemoglobin A1c was 4.7%. (8) Hypothyroidism: Code(s): E03.9 - Hypothyroidism, unspecified Status: Acute Assessment and Plan: Continue levothyroxine and check TSH. DS: Summary Hospital Course Reason for hospitalization: Shortness of breath. Narrative: This is a pleasant 87-year-old female with end-stage renal disease on hemodialysis, type 2 diabetes myelitis, chronic respiratory failure on oxygen, chronic obstructive pulmonary disease, chronic anemia requiring blood transfusion, history of occult GI blood loss, and hypertension who presented to the emergency department for evaluation of shortness of breath. Near the end of her dialysis sessions she started complaining of shortness of breath. Her S
[2022-05-11] MEDS: EPOETIN ALFA-EPBX 10,000 UNITS/ML VIAL 10000 UNITS IV PUSH (15:00)
--- NOTE | 2022-05-11 16:40 | PM.PNNEP ---
Progress Note: A&P Assessment and Plan (1) ESRD (end stage renal disease): Code(s): N18.6 - End stage renal disease Status: Chronic Assessment and Plan: the patient is on dialysis now. She is tolerating it well (2) Acute on chronic anemia: Code(s): D64.9 - Anemia, unspecified Status: Acute Assessment and Plan: patient has had several drops in hemoglobin. She has required blood transfusions. EGD and colonoscopy negative recently. She is going to get a capsule endoscopy as an outpatient per GI. Hemoglobin has been stable lately. 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 She is not as short of breath. She still has some nausea. She feels generally blah 05/08 the patient feels better today. No chest pain or shortness of breath due for dialysis tomorrow 05/09 the patient is feeling okay today. She is on dialysis right now tolerating it well. Blood pressure is doing pretty well. She is going to receive a blood transfusion. She was seen at 10:30 a.m. 05/10 patient is feeling pretty good today. She is hungry for breakfast. No chest pain or shortness of breath 05/11 patient is resting in bed comfortably. She is on dialysis and tolerating it well. Blood pressure is good. Fluid is coming off nicely. She was seen at 3:20 p.m. Review of Systems Cardiovascular: Cardiovascular: Reports no additional cardiovascular complaints Respiratory: Respiratory: Reports no additional respiratory complaints Gastrointestinal: Gastrointestinal: Reports no additional gastrointestinal complaints Genitourinary: Genitourinary: Reports no additional female genitourinary complaints Exam Narrative: WDWN in NAD skin no rash head ncat lungs clear to auscultation cor reg no rub abd BS+ nontender and soft ext no edema or cyanosis. Objective Data Vital Signs Vital Signs: Vital Signs - 24 hr 05/10/22 22:00 05/10/22 20:00 05/11/22 00:00 Temperature 98 F Pulse Rate 57 L 62 60 Respiratory Rate 18 Blood Pressure 126/44 L Pulse Oximetry 98 Oxygen Delivery Oxygen Flow Rate 05/11/22 04:00 05/11/22 06:00 05/11/22 08:00 Temperature 97.1 F L Pulse Rate 58 L 58 L Respiratory Rate 17 Blood Pressure 140/34 L Pulse Oximetry 98 98 Oxygen Delivery Nasal Cannula Oxygen Flow Rate 2 05/11/22 08:00 05/11/22 12:40 05/11/22 12:30 Temperature 98.6 F Pulse Rate 61 62 Respiratory Rate 16 Blood Pressure 149/54 H Pulse Oximetry Oxygen Delivery Oxygen Flow Rate 2 05/11/22 12:53 05/11/22 13:00 05/11/22 13:20 Temperature Pulse Rate 58 L 59 L 57 L Respiratory Rate Blood Pressure 141/44 H 124/47 L 108/44 L Pulse Oximetry Oxygen Delivery Oxygen Flow Rate 05/11/22 13:40 05/11/22 14:00 05/11/22 14:20 Temperature Pulse Rate 62 62 77 Respiratory Rate Blood Pressure 120/48 L 135/44 L 118/30 L Pulse Oximetry Oxygen Delivery Oxygen Flow Rate 05/11/22 14:40 05/11/22 15:00 05/11/22 15:04 Temperature Pulse Rate 65 66 65 Respiratory Rate Blood Pressure 147/50 H 139/57 L 131/61 Pulse Oximetry Oxygen Delivery Oxygen Flow Rate 05/11/22 15:20 05/11/22 15:33 05/11/22 15:56 Temperature 98.4 F Pulse Rate 63 63 63 Respiratory Rate 16 Blood Pressure 114/66
== END 2022-05-11 17:10 | DRG 811 ==
LOC: ANHED 16:52 → ANH3MEDSUR 20:31
PROVIDERS: Hospitalist; Internal Medicine Nephrology; Physician Assistant; Admitting Provider Internal Medicine; Emergency Provider Emergency Medicine; PCP Internal Medicine; Visit Provider Family Medicine
DX: D62 Acute posthemorrhagic anemia (principal); N18.6 End stage renal disease; J96.11 Chronic respiratory failure with hypoxia; I12.0 Hypertensive chronic kidney disease with stage 5 chronic kidney disease or end stage renal disease; E87.70 Fluid overload, unspecified; D63.1 Anemia in chronic kidney disease; E11.22 Type 2 diabetes mellitus with diabetic chronic kidney disease; N25.0 Renal osteodystrophy; J44.9 Chronic obstructive pulmonary disease, unspecified; K21.9 Gastro-esophageal reflux disease without esophagitis; E03.9 Hypothyroidism, unspecified; E78.5 Hyperlipidemia, unspecified; E55.9 Vitamin D deficiency, unspecified; M19.90 Unspecified osteoarthritis, unspecified site; H40.9 Unspecified glaucoma; R19.5 Other fecal abnormalities; Z20.822 Contact with and (suspected) exposure to COVID-19; Z87.891 Personal history of nicotine dependence; Z99.2 Dependence on renal dialysis
CPT/HCPCS: 32555; 36415; 36430; 36600; 71046; 74018; 74176; 80053; 80069; 82805; 82948; 83010; 83615; 83690; 83735; 83880; 84100; 84439; 84443; 84484; 85025; 85027; 85046; 85610; 85730; 86706; 86850; 86900; 86901; 86923; 87340; 87637; 93005; 93970; 99285; A9270; C9113; G0257; G0378; J2405; J7030; J7050; P9016; Q5105

== ENCOUNTER 2022-06-14 15:32 | Inpatient (IN) | payer MEDICARE, MEDICAID, SELFPAY ==
--- NOTE | ~2022-06-14 | CT_ITS ---
EXAMINATION: CT abdomen pelvis wo con DATE: 06/14/2022 17:25 INDICATION: abd pain TECHNIQUE: Computed tomography (CT) of the abdomen and pelvis was performed without intravenous contr ast. Automated exposure control and iterative reconstruction technique were employed. The dose-length product was 661.22 mGy-cm. COMPARISON: 05/03/2022. FINDINGS: Lower thorax: Dilated central pulmonary arteries as can be seen with pulmonary arterial hypertension. Aortic, mitral, and coronary artery calcification. Right lower lobe airway debris. Dependent right l jessie subsegmental opacities. Small possibly loculated right pleural effusion. Liver: Enlarged. Left lower lobe cyst. Biliary/Gallbladder: Gallbladder is normal. No bile duct dilation. Pancreas: No mass or duct dilation. Spleen: Normal. Adrenals:No mass. Kidneys: Mild left and moderate right renal atrophy. Bilateral upper pole cysts. Punctate nonobstruct ing calculi. No hydronephrosis. GI tract: No small bowel dilation. The rectum is dilated to 8.5 cm by partially formed stool. Appendi x not confidently visualized. Diverticulosis without diverticulitis. Mesentery/Peritoneum: No ascites or free air. Chronic calcified mass in the right lower quadrant mese ntery. Retroperitoneum: No mass. Atherosclerotic abdominal aortic and/or arterial calcifications. Small fusi form infrarenal abdominal aortic aneurysm. Pelvis: Pelvic organs are within normal limits. Soft Tissues: Soft tissues and body wall unremarkable. Bones: No acute osseous finding. Partially visualized uncomplicated appearing right proximal femoral hardware. IMPRESSION: Airway debris as can be seen with aspiration. Right lower lung atelectasis/consolidation. Loculated s mall right pleural effusion. Possible fecal impaction. Otherwise, no acute abdominopelvic process det ected. Chronic and incidental findings detailed above. Reviewed, dictated and finalized at location K. EYING TECHNICIAN IMPRESSION: Airway debris as can be seen with aspiration. Right lower lung atelectasis/cons olidation. Loculated small right pleural effusion. Possible fecal impaction. Ot herwise, no acute abdominopelvic process detected. Chronic and incidental findi ngs detailed above.
--- NOTE | ~2022-06-14 | XR_ITS ---
EXAMINATION: XR barium swallow modified DATE: 06/15/2022 11:00 INDICATION: Dysphagia. TECHNIQUE: The patient was given barium-containing material of multiple consistencies to swallow by t he speech pathologist while I performed fluoroscopy. Fluoroscopy exposure time was 1.4 minutes. The n umber of fluoroscopy images saved to the PACS was 1. Dose-area product was 0.956 Gy-cm^2. FINDINGS: There was reduced laryngeal adduction, reduced tongue base retraction, reduced pharyngeal squeeze, va llecular residue, piriform sinus residue, and pharyngeal wall residue. There was laryngeal penetratio n with thin liquids. IMPRESSION: 1. Laryngeal penetration with thin liquids. 2. Please refer to the speech therapy report for recommendations. Reviewed, dictated and finalized at location A. UNICATIONS EQUIPMENT OPERATOR
--- NOTE | ~2022-06-14 | XR_ITS ---
EXAMINATION: XR chest 1V portable INDICATION: Shortness of breath TECHNIQUE: Portable AP chest at 1646 hours COMPARISON: 05/03/2022 FINDINGS: Cardiomegaly is noted. There is a small pleural effusion with slight improvement since the comparison examination. Diffuse interstitial opacities persist, also with improvement since the han rison. There are minimal airspace opacities of the right lung base. No pneumothorax is identified. IMPRESSION: 1. Cardiomegaly with mild pulmonary edema. 2. Small right pleural effusion with improvement. 3. Right basilar airspace opacities, consistent with atelectasis versus pneumonia. Reviewed, dictated and finalized at location B. PRINCIPAL IMPRESSION: 1. Cardiomegaly with mild pulmonary edema. 2. Small right pleural effusion with improvement. 3. Right basilar airspace opacities, consistent with atelectasis versus pneumon ia.
[2022-06-14 15:44] VITALS: BP 146/69; PULSE 79; RESP 18; TEMP 36.8; O2SAT 100
--- NOTE | 2022-06-14 15:47 | ECG_ITS ---
Measurements Intervals [place] Rate: 0 P: TN: 0 QRS: QRSD: 0 T: QT: 0 QTc: 0 Interpretive Statements SINUS RHYTHM ATRIAL PREMATURE COMPLEX INTRAVENTRICULAR CONDUCTION DELAY DELAYED PRECORDIAL R/S TRANSITION LEFT VENTRICULAR HYPERTROPHY WITH ST-T CHANGE BASELINE ARTIFACT- I, II, III, AVL, AVF, V1-V2 BORDERLINE ECG COMPARED TO ECG 05/03/2022 15:21:21 NO SIGNIFICANT CHANGES Electronically Signed On 06-14-2022 16:02:36 DIRECTOR EMPLOY[employer] HE[employer] by Kendrick Frances D.O.
--- NOTE | 2022-06-14 15:55 | ED.GENADULT ---
HPI - General Adult General Chief complaint: Shortness of Breath/Dyspnea Stated complaint: sob Time Seen by Provider: 06/14/22 15:45 Source: RN notes reviewed History of Present Illness HPI narrative: Patient presents emergency department from home for shortness of breath. Patient states symptoms began approximately 1 day ago. States she had a cough this been productive of a small amount of yellow sputum she states she does have COPD and is chronically on 2 L nasal cannula. She denies any fevers or chills she denies any chest pain. Patient states she also has been expensing some lower abdominal pain for the past 2 days. States the pain is described as crampy in nature and does not radiate. She states that she had gone to her dialysis today and was short of breath prior to dialysis and continued to be short of breath after dialysis with combination of shortness of breath abdominal pain came to the ER for further evaluation. States that shortness of breath is worse with exertion Related Data Home Medications Medication Instructions Recorded Confirmed atorvastatin 20 mg tablet 20 mg PO HS 06/22/21 05/03/22 clonidine HCl 0.1 mg tablet 0.1 mg PO TID 06/22/21 05/03/22 ergocalciferol (vitamin D2) 1,250 50,000 unit PO WEEKLY 06/22/21 05/03/22 mcg (50,000 unit) capsule latanoprost 0.005 % eye drops 1 drp EACH EYE DAILY 06/22/21 05/03/22 pantoprazole 40 mg tablet,delayed 40 mg PO DAILY 06/22/21 05/03/22 release spironolactone 25 mg tablet 12.5 mg PO DAILY 06/22/21 05/03/22 Acidophilus 1 cap PO BID 03/17/22 05/03/22 Allergies Allergy/AdvReac Type Severity Reaction Status Date / Time latex Allergy Rash Verified 05/04/22 07:47 Review of Systems Review of Systems: Gen.: Denies fevers or chills ENT: Denies congestion Respiratory: See HPI CV: Denies chest pain or palpitations GI: Denies abdominal pain nausea, emesis or diarrhea Musculoskeletal: Denies back pain or muscle pain Neuro: Denies numbness, tingling, weakness or focal weakness Skin: Denies rash Except as documented, all other systems reviewed and negative PMFSH Past Medical History Medical History Chronic anemia Chronic obstructive pulmonary disease Chronic respiratory failure with hypoxia On 2 to 3 liters nasal cannula. COVID-19 (06/2021) End-stage renal disease on hemodialysis Erythropoietin deficiency anemia Gastroesophageal reflux disease Glaucoma Hyperlipidemia Hypertension Hypothyroidism Insulin dependent type 2 diabetes mellitus Osteoarthritis Renal osteodystrophy Renal osteodystrophy Vitamin D deficiency Surgical History Surgical History Status post creation of arteriovenous fistula Left upper extremity. Family History Family History Other Diabetes mellitus Hypertension Social History Social History Social History: Surrogate decision maker: Amy Contreras, roman. Code status: Do not resuscitate. 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 Spiritual care concerns: No Exam Narrative: APPEARANCE: No acute distress, nontoxic, resting in bed EYES: EOMI HEENT: Normocephalic, atraumatic, OMM RESPIRATORY: No
[2022-06-14] MEDS: IPRATROPIUM BR 0.02% INH SOLN 0.5 MG/2.5 ML VIAL INHALATION (16:08)
[2022-06-14] MEDS: ALBUTEROL SULFATE NEB 2.5 MG/3 ML INH 5 MG INHALATION (16:08)
[2022-06-14 16:09] VITALS: PULSE 77; RESP 20
[2022-06-14 16:15] LABS: Basophils Percent Auto 0.6 % (0.2-1.2); Eosinophils Absolute Auto 0.3 K/mm3 (0-0.3); Eosinophils Percent Auto 4.8 % (0-4.4); Hematocrit 36.7 % (37.0-47.0); Hemoglobin 10.8 g/dL (12.0-15.0); Immature Granulocyte Absolute 0.08 K/mm3 (0.00-0.031); Immature Granulocyte Percent A 1.2 % (0-0.5); Lymphocytes Absolute Auto 0.37 K/mm3 (0.9-3.2); Lymphocytes Percent Auto 5.5 % (18.3-44.2); Mean Corpuscular HGB Conc 29.4 g/dl (32-36); Mean Corpuscular Volume 101.9 fl (80-100); Mean Platelet Volume 10.9 fl (7.4-10.4); Monocytes Percent Auto 14.7 % (2.6-8.5); Neutrophils Absolute Auto 4.9 K/mm3 (1.3-6.7); Neutrophils Percent Auto 73.2 % (45.5-73.1); Platelet Count Result 199 k/mm3 (150-375); Red Cell Distribution Width 15.4 % (11.5-14.5); White Blood Count 6.7 K/mm3 (4.5-10.0)
[2022-06-14 16:26] VITALS: PULSE 82; RESP 22
[2022-06-14 16:26] LABS: Alanine Aminotransferase 9 U/L (6-35); Albumin Level 4.2 g/dL (3.5-5.1); Alkaline Phosphatase 84 U/L (38-126); Anion Gap 6 mmol/L (8-16); Aspartate Amino Transferase 29 U/L (14-36); Bilirubin,Total 0.3 mg/dL (0.2-1.3); Blood Urea Nitrogen 27 mg/dL (7-17); Calcium 8.2 mg/dL (8.4-10.2); Carbon Dioxide 35 mmol/L (22-30); Chloride 93 mmol/L (98-107); Estimated CRCL calculation 24 ml/min; Estimated Glomerular Filt Rate 29; Glucose 101 mg/dL (65-110); Potassium 4.2 mmol/L (3.4-5.0); Sodium 134 mmol/L (137-145)
[2022-06-14] MEDS: methylPREDNISolone SOD SUCC 125 MG VIAL IV PUSH (16:29)
[2022-06-14 16:38] LABS: NT Pro B Type Natriuretic Pept 9990 pg/mL (19.9-100); Troponin I 0.017 ng/mL (0.000-0.034)
[2022-06-14 16:48] LABS: Hypochromasia 1+ (NORMAL); Influenza A QL RT-PCR Negative (Negative); Influenza B QL RT-PCR Negative (Negative); Ovalocytes 1+ (NORMAL); Platelet Estimate Adequate (Adequate); SARS-CoV-2 RNA PCR Negative
[2022-06-14 16:49] LABS: Schistocytes None Seen (NORMAL)
--- NOTE | 2022-06-14 20:21 | PM.IMHP ---
H&P: HPI History of Present Illness Date/Time: 06/14/22 20:21 Chief Complaint: Shortness of breath Narrative: 87-year-old female with past medical history significant for hypertension, COPD, diabetes, congestive heart failure, chronic kidney disease. Brought to the hospital for evaluation of shortness of breath. At the time of my visit patient is unable to give any history which has been obtained upon reviewing medical records. CT was reported as: FINDINGS: Lower thorax: Dilated central pulmonary arteries as can be seen with pulmonary arterial hypertension. Aortic, mitral, and coronary artery calcification. Right lower lobe airway debris. Dependent right lung subsegmental opacities. Small possibly loculated right pleural effusion. Liver: Enlarged. Left lower lobe cyst.? Biliary/Gallbladder: Gallbladder is normal. No bile duct dilation. Pancreas: No mass or duct dilation. Spleen: Normal. Adrenals:No mass. Kidneys: Mild left and moderate right renal atrophy. Bilateral upper pole cysts. Punctate nonobstructing calculi. No hydronephrosis. GI tract: No small bowel dilation. The rectum is dilated to 8.5 cm by partially formed stool. Appendix not confidently visualized. Diverticulosis without diverticulitis. Mesentery/Peritoneum: No ascites or free air. Chronic calcified mass in the right lower quadrant mesentery. Retroperitoneum: No mass. Atherosclerotic abdominal aortic and/or arterial calcifications. Small fusiform infrarenal abdominal aortic aneurysm. Pelvis: Pelvic organs are within normal limits. Soft Tissues: Soft tissues and body wall unremarkable. Bones:? No acute osseous finding. Partially visualized uncomplicated appearing right proximal femoral hardware. IMPRESSION: Airway debris as can be seen with aspiration. Right lower lung atelectasis/consolidation. Loculated small right pleural effusion. Possible fecal impaction. Otherwise, no acute abdominopelvic process detected. Chronic and incidental findings detailed above. Review of Systems Review of Systems: ROS unobtainable: Yes unobtainable due to mental status (Dementia) [facility] Past Medical History Medical History Chronic anemia Chronic obstructive pulmonary disease Chronic respiratory failure with hypoxia On 2 to 3 liters nasal cannula. COVID-19 (06/2021) End-stage renal disease on hemodialysis Erythropoietin deficiency anemia Gastroesophageal reflux disease Glaucoma Hyperlipidemia Hypertension Hypothyroidism Insulin dependent type 2 diabetes mellitus Osteoarthritis Renal osteodystrophy Renal osteodystrophy Vitamin D deficiency Surgical History Surgical History Status post creation of arteriovenous fistula Left upper extremity. Family History Family History Other Diabetes mellitus Hypertension Social History Social History Social History: Surrogate decision maker: Amy Contreras, roman. Code status: Do not resuscitate. 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 Spiritual care concerns: No Meds Home Medications and Allergies Home Medications Medication Instructions Recorded Confirmed Type atorvastatin 20 mg tablet 20
--- NOTE | 2022-06-14 20:33 | ADMGEN ---
This patient, Sofía Contreras, was admitted to 2 Medical Room 260-01. Patient/family oriented to hospital policies and general routines including ID bracelet, bed and alarms, visiting hours, pain management, procedures, bathroom and other care routines, personal items, smoking policy, room service/diet, and visiting hours. Information on how to activate the Rapid Response Team has been discussed. Patient/Family are encouraged to report perceived risks to care and to ask questions if they do not understand what they are told or what they should do.
--- NOTE | 2022-06-14 20:40 | PC.NURSE ---
Addendum entered by Taco Wolfe RN 06/14/22 20:45: Son was unsure about current medications. Attempted to call pt [facility] with no answer at this time. Will attempt to call again and confirm medication record. Original Note: Pt A&Ox2. Pt unable to answer admission questions. Called son, Amy, for help with the admission. Son was able to answer most admission questions.
--- NOTE | 2022-06-14 20:47 | PC.NURSE ---
Per report from [facility] in ED, pt ambulates, has no confusion, and is continent. Pt received to floor incontinent, confused to time and situation, and is chronically unable to ambulate.
[2022-06-14 21:15] VITALS: O2SAT 93
[2022-06-14 21:19] VITALS: BMI 25.3
[2022-06-14 21:20] VITALS: BP 163/46; PULSE 88; RESP 16; TEMP 37.1; O2SAT 93
[2022-06-14 21:34] LABS: Troponin I 0.023 ng/mL (0.000-0.034)
[2022-06-15] VITALS (17 sets, daily range): BP systolic 107–166; BP diastolic 46–55; PULSE 65–88; RESP 18–20; TEMP 36.6–37.2; O2SAT 93–100
[2022-06-15] MEDS: ATORVASTATIN 20 MG TABLET PO (00:34)
[2022-06-15 01:53] LABS: Troponin I 0.018 ng/mL (0.000-0.034)
[2022-06-15] MEDS: ALBUTEROL SULFATE NEB 2.5 MG/3 ML INH INHALATION ×4 (03:16→20:54)
[2022-06-15] MEDS: IPRATROPIUM BR 0.02% INH SOLN 0.5 MG/2.5 ML VIAL INHALATION ×4 (03:16→20:54)
[2022-06-15 06:16] LABS: Basophils Percent Auto 0.2 % (0.2-1.2); Hematocrit 33.4 % (37.0-47.0); Hemoglobin 10.1 g/dL (12.0-15.0); Immature Granulocyte Absolute 0.04 K/mm3 (0.00-0.031); Immature Granulocyte Percent A 0.9 % (0-0.5); Lymphocytes Absolute Auto 0.26 K/mm3 (0.9-3.2); Lymphocytes Percent Auto 5.9 % (18.3-44.2); Mean Corpuscular HGB Conc 30.2 g/dl (32-36); Mean Corpuscular Hemoglobin 29.8 pg (26-34); Mean Corpuscular Volume 98.5 fl (80-100); Mean Platelet Volume 11.2 fl (7.4-10.4); Monocytes Absolute Auto 0.1 K/mm3 (0.1-0.6); Monocytes Percent Auto 3.2 % (2.6-8.5); Neutrophils Percent Auto 89.8 % (45.5-73.1); Platelet Count Result 209 k/mm3 (150-375); Red Blood Count 3.39 M/mm3 (4.2-5.4); Red Cell Distribution Width 15.5 % (11.5-14.5); White Blood Count 4.4 K/mm3 (4.5-10.0)
[2022-06-15 08:27] LABS: Alanine Aminotransferase 14 U/L (6-35); Albumin Level 3.8 g/dL (3.5-5.1); Alkaline Phosphatase 74 U/L (38-126); Anion Gap 10 mmol/L (8-16); Aspartate Amino Transferase 18 U/L (14-36); Bilirubin,Total 0.2 mg/dL (0.2-1.3); Blood Urea Nitrogen 38 mg/dL (7-17); Calcium 8.3 mg/dL (8.4-10.2); Carbon Dioxide 32 mmol/L (22-30); Chloride 94 mmol/L (98-107); Estimated CRCL calculation 16 ml/min; Estimated Glomerular Filt Rate 18; Glucose 124 mg/dL (65-110); Potassium 4.6 mmol/L (3.4-5.0); Sodium 136 mmol/L (137-145)
[2022-06-15] MEDS: PANTOPRAZOLE 40 MG TABLET PO (08:32)
[2022-06-15] MEDS: ACIDOPHILUS/BULGARICUS CHEWABLE TABLET 1 TABLET BY MOUTH ×2 (08:32→17:23)
[2022-06-15] MEDS: amLODIPine BESYLATE 5 MG TABLET 10 MG PO (08:32)
[2022-06-15] MEDS: cloNIDine HCL 0.1 MG TABLET PO ×3 (08:33→17:22)
[2022-06-15] MEDS: LATANOPROST 0.005% OP SOLN 2.5 ML BTL 1 DROP EACH EYE (08:33)
--- NOTE | 2022-06-15 08:34 | PM.IMPN ---
Progress Note: A&P Assessment and Plan (1) Aspiration pneumonia: Code(s): J69.0 - Pneumonitis due to inhalation of food and vomit Status: Acute Assessment and Plan: CT chest with debris in the RLL concerning for aspiration. She presented to the ED with c/o SOB and has h/o of dysphagia. Azithromycin and Rocephin given in ED. Antibiotics changed to IV Zosyn, renally dosed, on admission. Cultures pending. Speech therapy consulted for evaluation. Modified barium study completed and patient changed to regular consistency food with nectar thick liquids. Speech therapy following for improved swallowing. (2) COPD (chronic obstructive pulmonary disease): Qualifiers: COPD type: unspecified COPD Qualified Code(s): J44.9 - Chronic obstructive pulmonary disease, unspecified Code(s): J44.9 - Chronic obstructive pulmonary disease, unspecified Status: Acute Assessment and Plan: C/O shortness of breath. No wheezing on exam. Not in acute exacerbation. Continue nebulizer treatments Hold oral/IV steroids for now due to pneumonia (3) HTN (hypertension): Qualifiers: Hypertension type: primary hypertension Qualified Code(s): I10 - Essential (primary) hypertension Code(s): I10 - Essential (primary) hypertension Status: Chronic Assessment and Plan: Continue amlodipine, clonidine, furosemide, lisinopril and spironolactone (4) Dysphagia: Qualifiers: Dysphagia type: unspecified Qualified Code(s): R13.10 - Dysphagia, unspecified Code(s): R13.10 - Dysphagia, unspecified Status: Acute Assessment and Plan: NPO on admission Speech therapy consulted Modified barium swallow done. Advance to renal diet regular consistency food and nectar thick liquids Aspiration precautions. (5) Constipation: Code(s): K59.00 - Constipation, unspecified Status: Acute Assessment and Plan: CT scan showed possible fecal impaction. LLQ pain on exam. Senna plus BID Bisacodyl suppository prn (6) ESRD (end stage renal disease): Code(s): N18.6 - End stage renal disease Status: Chronic Assessment and Plan: On hemodialysis. Consult Nephrology Plan CODE STATUS: DNR Discharge disposition: return to SNF when stable. Time Spent With Patient Time with patient: 25 - 35 minutes Subjective Date/time seen: 06/15/22 08:34 Interval history: Patient is an 87 yo female, from home, with COPD on 2-3L home oxygen, pulmonary hypertension, ESRD on HD, diabetes, hypertension, hypothyroidism, GERD, and hyperlipidemia. She presented to the ED for evaluation of increased shortness of breath for approximately 1 day, as well as productive cough. CT abdomen & pelvis showed RLL airway debris with opacities suggestive of aspiration pneumonia. She was admitted for further antibiotic therapy and dysphagia evaluation. She denies SOB or chest pain. She reports intermittent coughing, but denies sputum. Patient is tired today. No sore throat, WAGNER, nausea, or vomiting. She states she has difficulty with swallowing sometimes, but states it is more with food. She does not know when her last BM was. Review of Systems Review of Systems: ROS unobtainable: Yes unobtainable due to mental status (Dementia) Exam Narrative: General: No acute distress.? Well-developed and well-groomed? Mental Status/Psych: AOx1-2 person and hospital. Sleeping, but arouses easily. clear speech. Neutral mood and affect. Pleasant and cooperative. Skin: Skin fair, warm, dry and intact without rashes or lesions. No open wounds. Good turgor.? HEENT: Normocephalic. Sclera is non-icteric. EOM intact. Pupils equal and round. Very [place]. Oral mucosa pink and moist. Tongue midline. Oropharynx within normal limits. Neck: Supple. No lymphadenopathy No JVD. Heart: S1 and S2 regular rate and rhythm. Pansystolic murmur loudest to RSB 2nd intercostal space, but auscultated in all f
[2022-06-15] MEDS: SENNA/DOCUSATE SODIUM TABLET 1 TAB PO (09:52)
--- NOTE | 2022-06-15 11:19 | PCSTNOTE ---
Modified Barium Swallow study. Penetration to vocal folds observed with thin liquids in controlled and uncontrolled amounts. Swallowing of mildly thickened liquids, pureed, mixed, and solid consistencies within functional limits. Recommendation: Regular diet consistency with mildly thickened liquids (level 2). Swallowing precaution recommendations entered into chart. No further speech therapy recommended at this time. Thank you for the referral of this patient.
[2022-06-15 12:09] LABS: Glucose Point of Care 109 mg/dl (65-105)
--- NOTE | 2022-06-15 14:00 | PM.CNNEP ---
Assessment and Plan Assessment and plan (1) End stage renal disease: Assessment and Plan: plan HD tomorrow and eventually transition back to T/T/S schedule while hospitalized follow electrolytes, volume status, and clearance (2) Aspiration pneumonia: Code(s): J69.0 - Pneumonitis due to inhalation of food and vomit Status: Acute Assessment and Plan: as suspected by admission imaging and complaints of SOB follow culture data antibiotics speech therapy evaluation (3) Chronic respiratory failure with hypoxia: Assessment and Plan: on baseline oxygen requirements follow respiratory status (4) Hypertension: Assessment and Plan: reasonable control resume home medications follow trend of hemodynamics (5) Diabetes: Assessment and Plan: follow accuchecks glycemic control Will continue to follow. History of Present Illness Reason for Consult Consult date: 06/15/22 Reason for consult: end stage renal disease Chief Complaint Chief complaint: Community Acquired Pneumonia/COPD/Chronic Renal Fa History of Present Illness Narrative: The patient has 87-year-old female with a past medical history as outlined below who presented to [facility] Emergency room for further evaluation of shortness of breath. Her shortness of breath apparently has been going on for last 24 hours if not possibly longer in association with a productive cough. However, on further questioning to the patient, she does admit to a cough but denies any type of sputum production. She gave no other complaints with regard to chest pain sore throat headache nausea or vomiting. She does indicate that she has some difficulty/ problems with swallowing but it is more so with food. In any case, given her complaints of shortness of breath, her facility transported her to the emergency room for further assessment. Workup and evaluation emergency room demonstrated the patient to be hemodynamically stable and in no apparent distress. Routine blood test demonstrated labs consistent with her known history of end-stage renal disease and no other significant laboratory abnormalities. Thus further imaging demonstrated a right lower lobe airway debris with opacities suggestive of aspiration pneumonia which is thought to be the possible etiology of her shortness of breath. Given this finding, appropriate cultures were obtained and she was started on IV antibiotic therapy with subsequent admission to the hospital for further evaluation /treatment. Since her admission to the hospital, as already mentioned, she reports that her breathing / respiratory status appears to be relatively stable. She has known COPD and is on chronic oxygen therapy at baseline but this does not appear to be any worse currently. Renal consultation was requested due to her end-stage renal disease. The patient normally does dialysis on a Sunday, , Sunday dialysis schedule under the care of Dr. Hayden Waite at [facility]. She received her scheduled dialysis treatment on Sunday (06/13/22) at her outpatient dialysis unit without any issues. The patient is somewhat familiar to me as I have taking care of her before on previous hospitalizations here [facility]. Currently, she has no critical electrolyte abnormalities and her volume status appears to be relatively stable. She is due for dialysis today but due to other emergent dialysis treatments today, her next dialysis treatment will be tentatively planned for tomorrow. She does not appear to have any other issues/problems to report at this time. Review of Systems Review of Systems: As per HPI. [facility] Past Medical History Medical History Chronic anemia Chronic obstructive pulmonary disease Chronic respiratory failure with hypoxia On 2 to 3 liters nasal cannula. COVID-19 (06/2021) End-stage re
[2022-06-15 17:18] LABS: Glucose Point of Care 119 mg/dl (65-105)
[2022-06-16] VITALS (22 sets, daily range): BP systolic 132–188; BP diastolic 35–101; PULSE 63–84; RESP 14–22; TEMP 36–36.8; O2SAT 94–97
[2022-06-16] MEDS: ALBUTEROL SULFATE NEB 2.5 MG/3 ML INH INHALATION ×2 (01:22→14:35)
[2022-06-16] MEDS: IPRATROPIUM BR 0.02% INH SOLN 0.5 MG/2.5 ML VIAL INHALATION ×2 (01:22→14:35)
[2022-06-16 04:59] LABS: Basophils Absolute Auto 0.1 K/mm3 (0.0-0.1); Eosinophils Absolute Auto 0.2 K/mm3 (0-0.3); Eosinophils Percent Auto 2.5 % (0-4.4); Hematocrit 29.9 % (37.0-47.0); Immature Granulocyte Absolute 0.03 K/mm3 (0.00-0.031); Immature Granulocyte Percent A 0.4 % (0-0.5); Lymphocytes Absolute Auto 0.68 K/mm3 (0.9-3.2); Mean Corpuscular HGB Conc 30.1 g/dl (32-36); Mean Corpuscular Hemoglobin 30.2 pg (26-34); Mean Corpuscular Volume 100.3 fl (80-100); Mean Platelet Volume 10.9 fl (7.4-10.4); Monocytes Absolute Auto 0.7 K/mm3 (0.1-0.6); Monocytes Percent Auto 10.8 % (2.6-8.5); Neutrophils Absolute Auto 5.1 K/mm3 (1.3-6.7); Neutrophils Percent Auto 75.3 % (45.5-73.1); Platelet Count Result 239 k/mm3 (150-375); Red Blood Count 2.98 M/mm3 (4.2-5.4); Red Cell Distribution Width 16.2 % (11.5-14.5); White Blood Count 6.8 K/mm3 (4.5-10.0)
[2022-06-16 05:16] LABS: Albumin Level 3.7 g/dL (3.5-5.1); Anion Gap 10 mmol/L (8-16); Blood Urea Nitrogen 62 mg/dL (7-17); Calcium 7.7 mg/dL (8.4-10.2); Carbon Dioxide 32 mmol/L (22-30); Chloride 92 mmol/L (98-107); Estimated CRCL calculation 9 ml/min; Estimated Glomerular Filt Rate 10; Glucose 96 mg/dL (65-110); Magnesium 2.1 mg/dL (1.6-2.3); Phosphorus 6.3 mg/dL (2.5-4.5); Sodium 134 mmol/L (137-145)
[2022-06-16 06:01] LABS: Hepatitis B Surface Antigen Negative (Negative)
[2022-06-16 06:19] LABS: Hepatitis B Surface Anti Res Negative
[2022-06-16] MEDS: SENNA/DOCUSATE SODIUM TABLET 1 TAB PO (08:09)
[2022-06-16] MEDS: HEPARIN SODIUM 5,000 UNITS/ML VIAL 5000 UNITS SUB-Q (08:09)
[2022-06-16] MEDS: ACIDOPHILUS/BULGARICUS CHEWABLE TABLET 1 TABLET BY MOUTH ×2 (08:10→17:36)
[2022-06-16] MEDS: LATANOPROST 0.005% OP SOLN 2.5 ML BTL 1 DROP EACH EYE (08:10)
[2022-06-16] MEDS: PANTOPRAZOLE 40 MG TABLET PO (08:10)
[2022-06-16] MEDS: cloNIDine HCL 0.1 MG TABLET PO ×3 (08:14→17:36)
[2022-06-16] MEDS: amLODIPine BESYLATE 5 MG TABLET 10 MG PO (08:17)
--- NOTE | 2022-06-16 09:36 | PCHDNOTE ---
Pre HD: pt arrives alert, oriented to name and location. Coarse lung sounds bilaterally. HIGH PRESSURE OPERATOR cough. Denies chest pain and dyspnea. On 3LNC. S1 S2 normal. No edema noted. AVG positive bruit, positive thrill, no s/s infection. UF goal 3L.
--- NOTE | 2022-06-16 11:17 | PCOTNOTE ---
Attempted to see for OT evaluation. Patient in dialysis. Will continue to attempt.
--- NOTE | 2022-06-16 11:28 | PCPTNOTE ---
Attempted to see for PT evaluation. Patient in dialysis. Will continue to attempt.
--- NOTE | 2022-06-16 12:42 | PM.PNNEP ---
Progress Note: A&P Assessment and Plan (1) End stage renal disease: Code(s): N18.6 - End stage renal disease Status: Chronic Assessment and Plan: HD today and likely again tomorrow to get back on her T/T/S outpatient dialysis schedule follow electrolytes, volume status, and clearance (2) Aspiration pneumonia: Code(s): J69.0 - Pneumonitis due to inhalation of food and vomit Status: Acute Assessment and Plan: as suspected by admission imaging and complaints of SOB follow culture data antibiotics speech therapy recommendations noted (3) Chronic respiratory failure with hypoxia: Code(s): J96.11 - Chronic respiratory failure with hypoxia Status: Chronic Assessment and Plan: on baseline oxygen requirements follow respiratory status (4) Hypertension: Code(s): I10 - Essential (primary) hypertension Status: Chronic Assessment and Plan: reasonable control resume home medications follow trend of hemodynamics (5) Diabetes: Code(s): E11.9 - Type 2 diabetes mellitus without complications Status: Chronic Assessment and Plan: follow accuchecks glycemic control Will continue to follow. Subjective Date/time seen: 06/16/22 12:42 Tolerating dialysis treatment at the time of my visit (seen on HD at 12:30PM); no complaints of shortness of breath at this time; breathing/respiratory status seems relatively stable currently; no issues/events overnight or earlier this AM. Exam Narrative: General: elderly female in NAD Heart: normal S1 and S2; no rub Lungs: coarse breath sounds Abdomen: soft, nontender, nondistended, positive bowel sounds Extremities: no cyanosis or clubbing; no edema Skin: warm and dry Objective Data Vital Signs Vital Signs: Vital Signs Temp Pulse Resp BP Pulse Ox O2 Del Method O2 Flow Rate 06/16/22 12:30 80 188/85 H 06/16/22 12:00 63 181/72 H 06/16/22 11:30 69 164/59 H 06/16/22 11:00 70 145/35 H 06/16/22 10:30 71 160/74 H 06/16/22 10:00 76 158/101 H 06/16/22 09:30 65 147/52 H 06/16/22 09:10 69 165/62 H 06/16/22 08:15 94 Nasal Cannula 2 06/16/22 12:00 66 06/16/22 08:00 84 06/16/22 09:10 3 06/16/22 08:41 98.1 F 72 16 158/58 H 06/16/22 08:15 70 14 156/41 H 94 06/16/22 05:19 97.7 F 79 17 146/41 H 95 06/16/22 04:00 81 06/16/22 00:00 72 06/15/22 20:00 73 06/16/22 00:00 96 Nasal Cannula 2 06/15/22 20:00 97 Nasal Cannula 2 06/16/22 01:32 73 22 H 06/16/22 01:22 70 18 06/15/22 21:08 74 20 06/15/22 21:03 98.9 F 72 18 125/55 L 97 06/15/22 20:56 72 20 06/15/22 20:56 94 Nasal Cannula 2 06/15/22 16:00 79 Intake/Output Intake/Output: Intake & Output 06/13/22 06/14/22 06/15/22 06/16/22 23:59 23:59 23:59 23:59 Intake Total 300 1040 360 Output Total 3200 Balance 300 1040 -2840 Meds/Results Medications: Active Medications Generic Name Dose Route Start Last Admin Trade Name Freq PRN Reason Stop Dose Admin Acetaminophen 650 mg 06/15/22 08:39 Acetaminophen 325 Mg Tablet PO Q4H PRN Mild Pain (1-3) or Fever Albuterol 2.5 mg 06/15/22 02:00 06/16/22 14:35 Albuterol Sulfate Neb 2.5 Mg/3 Ml Inh INHALATION 2.5 mg Q6HRT LAUREN Administration Amlodipine Besylate 10 mg 06/15/22 09:00 06/16/22 08:17 Amlodipine Besylate 5 Mg Tablet PO 10 mg QAM LAUREN Administration Atorvastatin Calcium 20 mg 06/14/22 22:30 06/15/22 23:52 Atorvastatin 20 Mg Tablet PO Not Given HS LAUREN Bisacodyl 10 mg 06/15/22 08:40 Bisacodyl 10 Mg Suppository RECTAL QAM PRN Constipation Clonidine HCl 0.1 mg 06/15/22 09:00 06/16/22 14:29 Clonidine Hcl 0.1 Mg Tablet PO 0.1 mg TID LAUREN Administration Epoetin Samuel-epbx 10,000
--- NOTE | 2022-06-16 15:12 | PM.DS ---
DS: Admitting Diagnosis Discharge Date 06/16/2022 1512 Admitting Diagnosis Aspiration COPD Dysphagia DS: Discharge Diagnosis Discharge Diagnosis (1) Aspiration pneumonia: Code(s): J69.0 - Pneumonitis due to inhalation of food and vomit Status: Acute Assessment and Plan: CT chest with debris in the RLL concerning for aspiration. She presented to the ED with c/o SOB and has h/o of dysphagia. Azithromycin and Rocephin given in ED. Antibiotics changed to IV Zosyn, renally dosed, on admission for aspiration pneumonia. MRSA screen negative. Speech therapy consulted for evaluation. Modified barium study completed and patient changed to regular consistency food with nectar thick liquids. Speech therapy following for improved swallowing. (2) COPD (chronic obstructive pulmonary disease): Qualifiers: COPD type: unspecified COPD Qualified Code(s): J44.9 - Chronic obstructive pulmonary disease, unspecified Code(s): J44.9 - Chronic obstructive pulmonary disease, unspecified Status: Acute Assessment and Plan: C/O shortness of breath. No wheezing on exam. Not in acute exacerbation. Continue nebulizer treatments Hold oral/IV steroids for now due to pneumonia (3) HTN (hypertension): Qualifiers: Hypertension type: primary hypertension Qualified Code(s): I10 - Essential (primary) hypertension Code(s): I10 - Essential (primary) hypertension Status: Chronic Assessment and Plan: Chronic, stable. Continued amlodipine, clonidine, furosemide, lisinopril and spironolactone (4) Dysphagia: Qualifiers: Dysphagia type: unspecified Qualified Code(s): R13.10 - Dysphagia, unspecified Code(s): R13.10 - Dysphagia, unspecified Status: Acute Assessment and Plan: NPO on admission and Speech therapy consulted Modified barium swallow done and advance to renal diet regular consistency food and nectar thick liquids Aspiration precautions. (5) Constipation: Qualifiers: Constipation type: slow transit constipation Qualified Code(s): K59.01 - Slow transit constipation Code(s): K59.00 - Constipation, unspecified Status: Acute Assessment and Plan: CT scan showed possible fecal impaction. LLQ pain on exam. Senna plus BID Bisacodyl suppository prn (6) ESRD (end stage renal disease): Code(s): N18.6 - End stage renal disease Status: Chronic Assessment and Plan: On hemodialysis. Consult Nephrology for HD management DS: Summary Hospital Course Reason for hospitalization: shortness of breath Hospital Course: Sofía Varghese is an 87-year-old female with history of dysphagia, hypertension, COPD, diabetes, congestive heart failure, and ESRD on HD.?She presented to the ED, from the senior care, for evaluation of shortness of breath.?She was confused on admission and medical information was obtained from ED and primary care records. She was afebrile on admission without s/s sepsis and requiring baseline 2L O2 per nasal cannula. CT chest showed RLL consolidation and airway debris, small loculated right pleural effusion, and possible fecal impaction. She was treated with Rocephin and Azithromycin IV in the ED, but transitioned to Zosyn IV, renally dosed upon admission for concerns of aspiration pneumonia. Speech therapy was consulted and barium swallow study was conducted. She was placed on regular consistency food with nectar thick liquids for concerns of aspiration. Nephrology was consulted for management of hemodialysis in a chronic dialysis patient. She was transitioned to oral Augmentin upon discharge and 48 hours IV antibiotics. Senna plus BID and PRN bisacodyl added for possible fecal impaction. She had a BM on 06/15/22 and was tolerating diet without abdominal pain, nausea, or emesis. She was discharged back to the senior care in stable condition. Last HD 06/16/22 -3L. Status at D
[2022-06-16 17:15] LABS: EDCOVIDSCREEN Negative (Negative)
== END 2022-06-16 19:00 | DRG 177 ==
LOC: ANHED 18:45 → ANH2MED 18:48
PROVIDERS: Internal Medicine Nephrology; Admitting Provider Student in an Organized Health Care Education/Training Program; Emergency Provider Emergency Medicine; PCP Internal Medicine; Visit Provider Nurse Practitioner Family
DX: J69.0 Pneumonitis due to inhalation of food and vomit (principal); N18.6 End stage renal disease; J96.11 Chronic respiratory failure with hypoxia; I12.0 Hypertensive chronic kidney disease with stage 5 chronic kidney disease or end stage renal disease; J44.9 Chronic obstructive pulmonary disease, unspecified; R13.10 Dysphagia, unspecified; E11.22 Type 2 diabetes mellitus with diabetic chronic kidney disease; N25.0 Renal osteodystrophy; E03.9 Hypothyroidism, unspecified; E78.5 Hyperlipidemia, unspecified; K21.9 Gastro-esophageal reflux disease without esophagitis; Z99.81 Dependence on supplemental oxygen; Z87.891 Personal history of nicotine dependence; Z20.822 Contact with and (suspected) exposure to COVID-19; Z99.2 Dependence on renal dialysis; Z66 Do not resuscitate; Z79.899 Other long term (current) drug therapy; Z86.16 Personal history of COVID-19; Z91.040 Latex allergy status; Z83.3 Family history of diabetes mellitus; Z82.49 Family history of ischemic heart disease and other diseases of the circulatory system
CPT/HCPCS: 36415; 71045; 74176; 80053; 80069; 82948; 83735; 83880; 84484; 85025; 86706; 87081; 87340; 87426; 87636; 92611; 93005; 94640; 96365; 96366; 96367; 96372; 96375; 96376; 99285; A9270; C9803; G0257; G0378; J0456; J0696; J1644; J2543; J2930

== ENCOUNTER 2022-07-17 13:13 | Emergency (ER) | payer MEDICARE, MEDICAID, SELFPAY ==
[2022-07-17] VITALS (35 sets, daily range): BP systolic 101–143; BP diastolic 38–61; PULSE 71–83; RESP 16–29; TEMP 36.6; O2SAT 95–99
--- NOTE | ~2022-07-17 | XR_ITS ---
EXAMINATION: XR chest 1V portable INDICATION: Shortness of breath TECHNIQUE: Portable AP chest at 1353 hours COMPARISON: 06/14/2022 FINDINGS: Cardiomegaly is noted. There is a small, stable right pleural effusion. No pneumothorax is identified. There are minimal right basilar airspace opacities. IMPRESSION: 1. Minimal right basilar airspace opacity, consistent with atelectasis versus pneumonia. 2. Stable cardiomegaly. 3. Small right pleural effusion, stable. Reviewed, dictated and finalized at location B. NG SECRETARY AND HANDICAPPER IMPRESSION: 1. Minimal right basilar airspace opacity, consistent with atelectasis versus p neumonia. 2. Stable cardiomegaly. 3. Small right pleural effusion, stable.
--- NOTE | 2022-07-17 13:31 | ECG_ITS ---
Measurements Intervals [place] Rate: 72 P: -19 ND: 189 QRS: -17 QRSD: 122 T: 101 QT: 415 QTc: 455 Interpretive Statements SINUS RHYTHM LEFT VENTRICULAR HYPERTROPHY AND ST-T CHANGE [VOLTAGE CRITERIA PLUS ST/T ABNORMALITY] COMPARED TO ECG 06/14/2022 15:53:44 NO SIGNIFICANT CHANGES Electronically Signed On 07-18-2022 11:23:04 SENIOR DIRECTOR FINANCE by Nirali Mcpherson M.D.
--- NOTE | 2022-07-17 13:44 | ED.GENADULT ---
HPI - General Adult General Chief complaint: Shortness of Breath/Dyspnea Stated complaint: SOB, pedal edema, hx copd History of Present Illness HPI narrative: 87-year-old female presented to the emergency department for evaluation of shortness of breath. Patient was at her dialysis when she was complaining of some shortness of breath. Patient is normally on 2 L of oxygen by nasal cannula and dialysis clinic thought that they had to bump her up to 4 L in order to maintain a pulse ox.. Patient was treated with some albuterol in route and upon arrival emerged from and she is saturating 97% at her normal 2 L. Upon arrival to the emergency permit patient denies any chest pain or shortness of breath. Patient denies any complaints at all. History of COPD, hypertension, end-stage renal disease on hemodialysis. Related Data Home Medications Medication Instructions Recorded Confirmed atorvastatin 20 mg tablet 20 mg PO HS 06/22/21 06/14/22 clonidine HCl 0.1 mg tablet 0.1 mg PO TID 06/22/21 06/14/22 ergocalciferol (vitamin D2) 1,250 50,000 unit PO WEEKLY 06/22/21 06/14/22 mcg (50,000 unit) capsule latanoprost 0.005 % eye drops 1 drp EACH EYE DAILY 06/22/21 06/14/22 pantoprazole 40 mg tablet,delayed 40 mg PO DAILY 06/22/21 06/14/22 release spironolactone 25 mg tablet 12.5 mg PO DAILY 06/22/21 06/15/22 Acidophilus 1 cap PO BID 03/17/22 06/14/22 furosemide 40 mg tablet (Lasix) 40 mg PO DAILY 06/14/22 06/14/22 Allergies Allergy/AdvReac Type Severity Reaction Status Date / Time latex Allergy Rash Verified 05/04/22 07:47 Review of Systems Review of Systems: CONSTITUTIONAL: Denies fever, chills, or sweats. EYES: Denies visual changes, redness, or discharge. ENT: Denies rhinorrhea, congestion, sore throat, or otalgia. CARDIOVASCULAR: Denies chest pain, palpitations, or edema. RESPIRATORY: Denies cough or dyspnea. GASTROINTESTINAL: Denies abdominal pain, nausea, vomiting, or diarrhea. GENITOURINARY: Denies dysuria or hematuria. SKIN: Denies rash or itching. MUSCULOSKELETAL: Denies back pain, joint pain, or myalgia. NEUROLOGIC: Denies headache, numbness, or weakness. [facility] Past Medical History Medical History Chronic anemia Chronic obstructive pulmonary disease Chronic respiratory failure with hypoxia On 2 to 3 liters nasal cannula. COVID-19 (06/2021) End-stage renal disease on hemodialysis Erythropoietin deficiency anemia Gastroesophageal reflux disease Glaucoma Hyperlipidemia Hypertension Hypothyroidism Insulin dependent type 2 diabetes mellitus Osteoarthritis Renal osteodystrophy Renal osteodystrophy Vitamin D deficiency Surgical History Surgical History Status post creation of arteriovenous fistula Left upper extremity. Family History Family History Other Diabetes mellitus Hypertension Social History Social History Social History: Surrogate decision maker: Amy Contreras, son. Code status: Do not resuscitate. 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 Spiritual care concerns: No Exam Narrative: APPEARANCE: Well appearing, no pain, no distress, well-nourished. HEAD: norm
[2022-07-17] MEDS: ALBUTEROL SULFATE NEB 2.5 MG/3 ML INH INHALATION (13:57)
[2022-07-17 14:04] LABS: Basophils Absolute Auto 0.1 K/mm3 (0.0-0.1); Basophils Percent Auto 0.8 % (0.2-1.2); Eosinophils Absolute Auto 0.5 K/mm3 (0-0.3); Eosinophils Percent Auto 6.6 % (0-4.4); Hematocrit 35.1 % (37.0-47.0); Hemoglobin 10.4 g/dL (12.0-15.0); Immature Granulocyte Absolute 0.06 K/mm3 (0.00-0.031); Immature Granulocyte Percent A 0.8 % (0-0.5); Mean Corpuscular HGB Conc 29.6 g/dl (32-36); Mean Corpuscular Hemoglobin 28.6 pg (26-34); Mean Corpuscular Volume 96.4 fl (80-100); Mean Platelet Volume 10.6 fl (7.4-10.4); Monocytes Absolute Auto 0.8 K/mm3 (0.1-0.6); Monocytes Percent Auto 11.7 % (2.6-8.5); Neutrophils Absolute Auto 5.2 K/mm3 (1.3-6.7); Neutrophils Percent Auto 73.1 % (45.5-73.1); Platelet Count Result 277 k/mm3 (150-375); Red Blood Count 3.64 M/mm3 (4.2-5.4); Red Cell Distribution Width 15.1 % (11.5-14.5); White Blood Count 7.2 K/mm3 (4.5-10.0)
[2022-07-17 14:17] LABS: Alanine Aminotransferase 10 U/L (6-35); Albumin Level 4.3 g/dL (3.5-5.1); Alkaline Phosphatase 84 U/L (38-126); Anion Gap 6 mmol/L (8-16); Aspartate Amino Transferase 16 U/L (14-36); Bilirubin,Total 0.4 mg/dL (0.2-1.3); Blood Urea Nitrogen 46 mg/dL (7-17); Calcium 8.2 mg/dL (8.4-10.2); Carbon Dioxide 36 mmol/L (22-30); Chloride 92 mmol/L (98-107); Estimated CRCL calculation 11 ml/min; Estimated Glomerular Filt Rate 12; Glucose 97 mg/dL (65-110); Potassium 4.2 mmol/L (3.4-5.0); Sodium 134 mmol/L (137-145)
[2022-07-17 14:32] LABS: Platelet Estimate Adequate (Adequate)
[2022-07-17 14:33] LABS: Anisocytosis 1+ (NORMAL); Ovalocytes 1+ (NORMAL); Schistocytes None Seen (NORMAL)
[2022-07-17 16:32] LABS: Influenza A QL RT-PCR Negative (Negative); Influenza B QL RT-PCR Negative (Negative); RSV RNA, RT-PCR Negative (Negative); SARS-CoV-2 RNA PCR Negative
== END 2022-07-17 17:05 ==
PROVIDERS: Emergency Provider Emergency Medicine; PCP Internal Medicine
DX: J96.11 Chronic respiratory failure with hypoxia (principal); Z20.822 Contact with and (suspected) exposure to COVID-19; J44.9 Chronic obstructive pulmonary disease, unspecified; I12.0 Hypertensive chronic kidney disease with stage 5 chronic kidney disease or end stage renal disease; E11.22 Type 2 diabetes mellitus with diabetic chronic kidney disease; N18.6 End stage renal disease; E03.9 Hypothyroidism, unspecified; N25.0 Renal osteodystrophy; D64.9 Anemia, unspecified; E55.9 Vitamin D deficiency, unspecified; M19.90 Unspecified osteoarthritis, unspecified site; Z99.2 Dependence on renal dialysis; Z99.81 Dependence on supplemental oxygen; Z86.16 Personal history of COVID-19; Z87.891 Personal history of nicotine dependence; Z66 Do not resuscitate; I51.7 Cardiomegaly
CPT/HCPCS: 36415; 71045; 80053; 85025; 87637; 93005; 94640; 99284

== ENCOUNTER 2022-07-20 22:29 | Inpatient (IN) | payer MEDICARE, MEDICAID, SELFPAY ==
[2022-07-20] VITALS (10 sets, daily range): BP systolic 141–154; BP diastolic 39–79; PULSE 77–92; RESP 18–29; TEMP 36.8–37.2; O2SAT 91–99
--- NOTE | ~2022-07-20 | XR_ITS ---
Left elbow Technique: AP, oblique, and lateral views were obtained. Clinical History: Pain Findings: No acute fracture or dislocation is seen. Osseous alignment is anatomic. Joint spaces are p reserved. There is no displacement of the fat pads, and soft tissues are unremarkable. Impression: Unremarkable radiographs. Reviewed, dictated and finalized at location . E BEATER OPERATOR Impression: Unremarkable radiographs.
--- NOTE | ~2022-07-20 | CT_ITS ---
EXAMINATION: CT cervical spine wo con DATE: 07/21/2022 02:57 INDICATION: Fall. TECHNIQUE: Computed tomography (CT) of the cervical spine was performed without intravenous contrast. Automated exposure control and iterative reconstruction technique were employed. The dose-length pro duct was 359.47 mGy-cm. COMPARISON: None FINDINGS: There is mild emphysema. There is 9 degrees dextrocurvature of cervical spine. There is 2 m m retrolisthesis of C5 on C6 and C6 on C7. Vertebral body heights are normal. There is severely decre ased disc height at C5-C6 and C6-C7. The following disc levels are specifically discussed: C2-C3: There is mild right and severe left uncovertebral joint osteoarthritis. There is moderate righ t and severe left facet joint osteoarthritis. There is no neural foraminal stenosis. There is no cent ral canal stenosis. C3-C4: There is ankylosis of the uncovertebral joints with mild left hypertrophy. There is ankylosis of the facet joints with moderate hypertrophy. There is mild bilateral neural foraminal stenosis. The re is no central canal stenosis. C4-C5: There is no uncovertebral joint osteoarthritis. There is severe bilateral facet joint osteoart hritis. There is mild left neural foraminal stenosis. There is mild central canal stenosis. C5-C6: There is severe bilateral uncovertebral joint osteoarthritis. There is mild bilateral facet anatoliy int osteoarthritis. There is moderate right and mild left neural foraminal stenosis. There is mild ce ntral canal stenosis. C6-C7: There is severe bilateral uncovertebral joint osteoarthritis. There is moderate bilateral face t joint osteoarthritis. There is mild bilateral neural foraminal stenosis. There is mild central linh l stenosis. C7-T1: There is no uncovertebral joint osteoarthritis. There is mild bilateral facet joint osteoarthr itis. There is no neural foraminal stenosis. There is no central canal stenosis. IMPRESSION: 1. No fracture. 2. Severe cervical spondylosis. 3. Mild emphysema. Reviewed, dictated and finalized at location A. OON ARTIST
--- NOTE | ~2022-07-20 | XR_ITS ---
XR tibia fibula RT 2V 07/21/2022 15:22 INDICATION: Right leg pain PROCEDURE: 2 views right tibia/fibula COMPARISON: No prior studies for comparison. FINDINGS: Fracture, dislocation or subluxation is not identified. Osteopenia. There are degenerative changes of the right knee and ankle. There are degenerative calcaneal enthesophytes. The soft tissues appear within normal limits. No foreign bodies are identified. IMPRESSION: 1: NO ACUTE BONE OR JOINT ABNORMALITY IDENTIFIED. Reviewed, dictated and finalized at location A. CIATE CONSULTING ENGINEER
--- NOTE | ~2022-07-20 | XR_ITS ---
XR chest 1V portable 07/21/2022 02:56 Indication: Unwitnessed fall Procedure: AP portable chest Comparison: Comparison to multiple prior studies sequentially, with oldest reviewed study dated 01/2022. Findings: Cardiomegaly. Mild interstitial edema. No significant effusion or pneumothorax. No acute os seous abnormality. Impression: 1: Cardiomegaly with mild interstitial edema. Reviewed, dictated and finalized at location A. BOARD ERECTOR Impression: 1: Cardiomegaly with mild interstitial edema.
--- NOTE | ~2022-07-20 | CT_ITS ---
EXAMINATION: CT brain wo con DATE: 07/21/2022 02:57 INDICATION: Fall. TECHNIQUE: Computed tomography (CT) of the head was performed without intravenous contrast. The mA wa s adjusted according to patient size. Iterative reconstruction technique was employed. The dose-lengt h product was 1362.00 mGy-cm. COMPARISON: Head CT 11/07/2021 FINDINGS: There is no intracranial hemorrhage, acute infarction, or abnormal intracranial mass lesion . There are scattered areas of low attenuation in the cerebral white matter, which is within normal l imits for the patient's age. The ventricles are normal in size. There is mild mucosal thickening in t he paranasal sinuses. The mastoid air cells are normal. There are likely changes of ocular lens repla cement surgeries. IMPRESSION: 1. Normal aging brain. Reviewed, dictated and finalized at location A. ISHER APPRENTICE IMPRESSION: 1. Normal aging brain.
--- NOTE | ~2022-07-20 | US_ITS ---
EXAMINATION:US venous doppler LE RT INDICATION:Leg swelling TECHNIQUE: Multiple grayscale, color flow and Doppler images of the right lower extremity deep venous systems were obtained and reviewed. COMPARISON:05/04/2022 FINDINGS: The common femoral, superficial femoral and popliteal veins demonstrate normal respiratory variation, augmentation and compressibility. Color flow is also seen within the posterior tibial, pe roneal, greater saphenous and profunda veins. IMPRESSION: 1: No lower extremity deep venous thrombosis. Reviewed, dictated and finalized at location A. AL CIRCUIT DESIGNER
--- NOTE | ~2022-07-20 | XR_ITS ---
XR pelvis 1-2V 07/21/2022 02:56 Indication: Unwitnessed fall Procedure: AP pelvis Comparison: No prior studies for comparison. Findings: Pelvic rings are intact. There are are 2 lag screws transfixing the right femoral neck with intramedullary james. There is heterotopic ossification just lateral to the hip. Generalized osteopeni a. No acute fracture is seen. No significant soft tissue abnormality. No foreign bodies. Impression: 1: No acute fracture. Reviewed, dictated and finalized at location A. SALESMAN Impression: 1: No acute fracture.
--- NOTE | 2022-07-20 23:20 | PC.NURSE ---
Addendum entered by Cory Lancaster RN 07/21/22 03:48: received report from Tigist SCHAFFER. First encounter w/ pt. Pt c/o L sore arm d/t a fall. No other injuries. NAD. Original Note: received report from Tigist SCHAFFER. First encounter w/ pt. Pt c/o L sore arm d/t a fall. No other injuries. NAD.
[2022-07-21] VITALS (52 sets, daily range): BP systolic 135–165; BP diastolic 36–70; PULSE 71–102; RESP 17–34; TEMP 36–36.9; O2SAT 93–100
--- NOTE | 2022-07-21 02:07 | ECG_ITS ---
Measurements Intervals [place] Rate: 78 P: 79 MN: 212 QRS: -29 QRSD: 134 T: 104 QT: 407 QTc: 465 Interpretive Statements SINUS RHYTHM WITH FIRST DEGREE AV BLOCK INTRAVENTRICULAR CONDUCTION DELAY [130+ ms QRS DURATION] LEFT VENTRICULAR HYPERTROPHY AND ST-T CHANGE [VOLTAGE CRITERIA PLUS ST/T ABNORMALITY] ABNORMAL ECG COMPARED WITH 07/17/2022: MN INTERVAL IS LONGER NO OTHER DIFFERENCE Electronically Signed On 07-21-2022 15:22:43 BURRER HAND by Jose Cruz Oliver M.D.
--- NOTE | 2022-07-21 02:07 | ED.GENADULT ---
HPI - General Adult General Chief complaint: Fall Stated complaint: FALL, LEFT SIDE PAIN Time Seen by Provider: 07/20/22 23:11 History of Present Illness HPI narrative: This is an 87-year-old female from [facility]. She had an unwitnessed fall earlier today. she was found on the floor by staff members. The patient herself does not recall any of the events leading to the fall. She is complaining of total body pain. The only obvious injury is a skin tear on her left upper extremity. Related Data Home Medications Medication Instructions Recorded Confirmed atorvastatin 20 mg tablet 20 mg PO HS 06/22/21 06/14/22 clonidine HCl 0.1 mg tablet 0.1 mg PO TID 06/22/21 06/14/22 ergocalciferol (vitamin D2) 1,250 50,000 unit PO WEEKLY 06/22/21 06/14/22 mcg (50,000 unit) capsule latanoprost 0.005 % eye drops 1 drp EACH EYE DAILY 06/22/21 06/14/22 pantoprazole 40 mg tablet,delayed 40 mg PO DAILY 06/22/21 06/14/22 release spironolactone 25 mg tablet 12.5 mg PO DAILY 06/22/21 06/15/22 Acidophilus 1 cap PO BID 03/17/22 06/14/22 furosemide 40 mg tablet (Lasix) 40 mg PO DAILY 06/14/22 06/14/22 Allergies Allergy/AdvReac Type Severity Reaction Status Date / Time latex Allergy Rash Verified 05/04/22 07:47 [facility] Past Medical History Medical History Chronic anemia Chronic obstructive pulmonary disease Chronic respiratory failure with hypoxia On 2 to 3 liters nasal cannula. COVID-19 (06/2021) End-stage renal disease on hemodialysis Erythropoietin deficiency anemia Gastroesophageal reflux disease Glaucoma Hyperlipidemia Hypertension Hypothyroidism Insulin dependent type 2 diabetes mellitus Osteoarthritis Renal osteodystrophy Renal osteodystrophy Vitamin D deficiency Surgical History Surgical History Status post creation of arteriovenous fistula Left upper extremity. Family History Family History Other Diabetes mellitus Hypertension Social History Social History Social History: Surrogate decision maker: Amy Contreras, son. Code status: Do not resuscitate. 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 Spiritual care concerns: No Exam Narrative: APPEARANCE: patient appears elderly and frail, A&O x1 Head: atraumatic. EYES: EOMI, NOSE: Atraumatic NECK: Trachea midline, tenderness over the C-spine RESPIRATORY: increased rate of breathing, Scattered expiratory wheezing CARDIOVASCULAR: RRR, peripheral edema ABDOMINAL: Non-distended , soft nontender no guarding or rebound MUSCULOSKELETAl: No obvious deformities, had toe trauma exam revealed a skin tear over the left upper extremity but no other obvious injuries. NEURO: Alert. Moving 4/4 extremities SKIN:: Warm, dry. Normal color PSYCHIATRIC: Normal affect Course Vital Signs Vital signs: Vital Signs Temperature 98.2 F 07/20/22 22:29 Pulse Rate 92 07/20/22 22:29 Respiratory Rate 19 07/20/22 22:29 Blood Pressure 154/39 H 07/20/22 22:29 Pulse Oximetry 91 07/20/22 22:29 Oxygen Delivery Room Air 07/20/22 22:29 Temperature 98.9 F 07/20/22 23:30 Pulse Rate 81 07/21/22 05:46 Respiratory Rate 1
[2022-07-21] MEDS: SODIUM CHLORIDE 0.9% IV 1,000 ML 999 ML IV CONT (03:18)
[2022-07-21 03:22] LABS: Glucose Point of Care 142 mg/dl (65-105)
[2022-07-21 04:00] LABS: Basophils Absolute Auto 0.1 K/mm3 (0.0-0.1); Basophils Percent Auto 0.9 % (0.2-1.2); Eosinophils Absolute Auto 0.6 K/mm3 (0-0.3); Eosinophils Percent Auto 7.1 % (0-4.4); Hematocrit 33.9 % (37.0-47.0); Immature Granulocyte Absolute 0.12 K/mm3 (0.00-0.031); Immature Granulocyte Percent A 1.5 % (0-0.5); Lymphocytes Absolute Auto 0.47 K/mm3 (0.9-3.2); Lymphocytes Percent Auto 5.9 % (18.3-44.2); Mean Corpuscular HGB Conc 29.5 g/dl (32-36); Mean Corpuscular Hemoglobin 28.9 pg (26-34); Mean Platelet Volume 10.6 fl (7.4-10.4); Monocytes Percent Auto 13.1 % (2.6-8.5); Neutrophils Absolute Auto 5.7 K/mm3 (1.3-6.7); Neutrophils Percent Auto 71.5 % (45.5-73.1); Platelet Count Result 300 k/mm3 (150-375); Red Blood Count 3.46 M/mm3 (4.2-5.4); Red Cell Distribution Width 15.1 % (11.5-14.5); White Blood Count 7.9 K/mm3 (4.5-10.0)
[2022-07-21 04:11] LABS: Alanine Aminotransferase 11 U/L (6-35); Albumin Level 4.2 g/dL (3.5-5.1); Alkaline Phosphatase 75 U/L (38-126); Anion Gap 11 mmol/L (8-16); Aspartate Amino Transferase 18 U/L (14-36); Bilirubin,Total 0.4 mg/dL (0.2-1.3); Blood Urea Nitrogen 64 mg/dL (7-17); Calcium 7.9 mg/dL (8.4-10.2); Carbon Dioxide 34 mmol/L (22-30); Chloride 95 mmol/L (98-107); Estimated CRCL calculation 8 ml/min; Estimated Glomerular Filt Rate 7; Glucose 126 mg/dL (65-110); Magnesium 2.4 mg/dL (1.6-2.3); Potassium 4.9 mmol/L (3.4-5.0); Sodium 140 mmol/L (137-145)
[2022-07-21 04:21] LABS: NT Pro B Type Natriuretic Pept 15700 pg/mL (19.9-100)
[2022-07-21 04:22] LABS: Troponin I 0.028 ng/mL (0.000-0.034)
[2022-07-21 04:32] LABS: Hypochromasia 1+ (NORMAL); Macrocytosis 1+ (NORMAL); Platelet Estimate Adequate (Adequate); Schistocytes None Seen (NORMAL)
[2022-07-21 04:37] LABS: Influenza A QL RT-PCR Negative (Negative); Influenza B QL RT-PCR Negative (Negative); RSV RNA, RT-PCR Negative (Negative); SARS-CoV-2 RNA PCR Negative
[2022-07-21] MEDS: ALBUTEROL SULFATE NEB 2.5 MG/3 ML INH 5 MG INHALATION ×3 (04:38→20:39)
[2022-07-21] MEDS: IPRATROPIUM BR 0.02% INH SOLN 0.5 MG/2.5 ML VIAL 1.5 MG INHALATION ×2 (04:38→06:40)
[2022-07-21 05:14] LABS: Appearance Urine Clear (Clear); Bilirubin Urine 1+ (Negative); Blood Urine Trace-lysed (Negative); Color Urine Yellow (Yellow); Glucose Urine UA Negative (Negative); Ketones Urine Trace mg/dL (Negative); Leukocyte Esterase Ur Negative LEU/UL (Negative); Nitrate Urine Negative (Negative); Protein Urine 2+ mg/dL (Negative); Specific Grav Ur 1.025 (1.001-1.035); Urobilinogen Urine 0.2 mg/dL (<2.0)
[2022-07-21 05:20] LABS: Mucus Urine Rare /lpf; RBC Urine 0-2 /hpf (0-2); Squamous Epithelial Cell Urine Rare /hpf (Few); WBC Urine 0-3 /hpf
[2022-07-21 05:22] LABS: Add Urine Microscopic? YES
[2022-07-21] MEDS: ALBUTEROL SULFATE NEB 2.5 MG/3 ML INH 7.5 MG INHALATION (06:40)
[2022-07-21] MEDS: methylPREDNISolone SOD SUCC 125 MG VIAL IV PUSH (06:42)
[2022-07-21 09:04] LABS: Fractional Inspired Oxygen 28 %; HCO3 VBG 25.8 mEq/l (24.0-30.0); PCO2 VBG 53.6 mmHg (42.0-48.0); PO2 VBG 46.6 mmHg (35.0-45.0)
[2022-07-21 09:05] LABS: Device NASAL CANNULA
--- NOTE | 2022-07-21 10:42 | ADMGEN ---
This patient, Sofía Contreras, was admitted to [facility] Surg Room 317-02. Patient/family oriented to hospital policies and general routines including ID bracelet, bed and alarms, visiting hours, pain management, procedures, bathroom and other care routines, personal items, smoking policy, room service/diet, and visiting hours. Information on how to activate the Rapid Response Team has been discussed. Patient/Family are encouraged to report perceived risks to care and to ask questions if they do not understand what they are told or what they should do.
[2022-07-21] MEDS: IPRATROPIUM BR 0.02% INH SOLN 0.5 MG/2.5 ML VIAL INHALATION ×2 (13:26→20:39)
[2022-07-21] MEDS: methylPREDNISolone SOD SUCC 125 MG VIAL 60 MG IV PUSH (13:39)
[2022-07-21] MEDS: amLODIPine BESYLATE 5 MG TABLET 10 MG PO (13:39)
--- NOTE | 2022-07-21 13:39 | PM.IMHP ---
H&P: HPI History of Present Illness Date/Time: 07/21/22 13:39 Chief Complaint: Fall Narrative: ED-HPI narrative: ?This is an 87-year-old female from and [facility].? She had an unwitnessed fall earlier today.? she was found on the floor by staff members.? The patient herself does not recall any of the events leading to the fall.? ? She is complaining of total body pain.? The only obvious injury is a skin tear on her left upper extremity. patient is 87 y/o female are resident of [facility] with history of ESRD on HD MWF, was brought to ER after she had unwitnesed fall and found on the floor, poor historian and unable to provider any history, patient has no recollection of the event and c/o of bodyaches, in the ER patient had chest x-ray, cervical spine, pelvix x-ray as well as Ct scan of head without any acute injury. will have PT/OT evaluate the patient, will consult her nephrologst for scheduled dialysis, will monitor and further recommendation to follow. patient is admitted as observation status Review of Systems Review of Systems: ROS unobtainable: Yes unobtainable due to mental status PMFSH Past Medical History Medical History Chronic anemia Chronic obstructive pulmonary disease Chronic respiratory failure with hypoxia On 2 to 3 liters nasal cannula. COVID-19 (06/2021) End-stage renal disease on hemodialysis Erythropoietin deficiency anemia Gastroesophageal reflux disease Glaucoma Hyperlipidemia Hypertension Hypothyroidism Insulin dependent type 2 diabetes mellitus Osteoarthritis Renal osteodystrophy Renal osteodystrophy Vitamin D deficiency Surgical History Surgical History Status post creation of arteriovenous fistula Left upper extremity. Family History Family History Other Diabetes mellitus Hypertension Social History Social History Social History: Surrogate decision maker: Amy Contreras, roman. Code status: Do not resuscitate. 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 Spiritual care concerns: No Meds Home Medications and Allergies Home Medications Medication Instructions Recorded Confirmed Type atorvastatin 20 mg tablet 20 mg PO HS 06/22/21 07/21/22 History clonidine HCl 0.1 mg tablet 0.1 mg PO TID 06/22/21 07/21/22 History ergocalciferol (vitamin D2) 1,250 50,000 unit PO WEEKLY 06/22/21 07/21/22 History mcg (50,000 unit) capsule latanoprost 0.005 % eye drops 1 drp EACH EYE HS 06/22/21 07/21/22 History pantoprazole 40 mg tablet,delayed 40 mg PO DAILY 06/22/21 07/21/22 History release spironolactone 25 mg tablet 12.5 mg PO DAILY 06/22/21 07/21/22 History amlodipine 5 mg tablet (Norvasc) 10 mg PO QAM 30 days #60 tabs 03/24/22 07/21/22 Rx ferrous sulfate 325 mg (65 mg 324 mg PO BIDWM #60 tabs 04/11/22 07/21/22 Rx iron) tablet levothyroxine 100 mcg tablet 100 mcg PO DAILY@0630 #30 tabs 04/11/22 07/21/22 Rx (Synthroid) lisinopril 20 mg tablet 20 mg PO QAM #30 tabs 04/11/22 07/21/22 Rx docusate sodium 100 mg capsule 100 mg PO Q12HR #60 caps 05/11/22 07/21/22 Rx polyethylene glycol 3350 17 gram 17 g PO DAILY PRN constipation #14 05/11/22 0
[2022-07-21] MEDS: SPIRONOLACTONE 12.5 MG TABLET PO (13:40)
[2022-07-21] MEDS: lisinopriL 20 MG TABLET PO (13:40)
[2022-07-21] MEDS: PANTOPRAZOLE 40 MG TABLET PO (13:40)
--- NOTE | 2022-07-21 14:02 | PC.NURSE ---
Shantelle SCHAFFERcertified master safecracker nurse on floor and notified that patients needs dialysis today or tomorrow
[2022-07-21] MEDS: ACETAMINOPHEN 325 MG TABLET 650 MG PO (14:12)
--- NOTE | 2022-07-21 14:56 | PCDIET ---
Brief nutrition note: Screened for MST 2, unsure of weight loss. Comes from memory care with dementia, unable to give history. Per EMR no weight loss. Hx with ESRD, hemodialysis. Puree, renal diet. Refused lunch. Ordering Nepro TID with meals for additional 425 kcals and 19 g protein each. Full assessment to follow if possible. Julee Braden RD LDN
[2022-07-21] MEDS: busPIRone HCL 5 MG TABLET PO (17:12)
[2022-07-21] MEDS: busPIRone HCL 2.5 MG TABLET PO (17:13)
[2022-07-21] MEDS: cloNIDine HCL 0.1 MG TABLET PO (17:14)
[2022-07-21] MEDS: FERROUS SULFATE 324 MG TABLET PO (17:14)
[2022-07-21] MEDS: LATANOPROST 0.005% OP SOLN 2.5 ML BTL 1 DROP EACH EYE (21:15)
[2022-07-21] MEDS: HEPARIN SODIUM 5,000 UNITS/ML VIAL 5000 UNITS SUB-Q (21:15)
[2022-07-21] MEDS: ATORVASTATIN 20 MG TABLET PO (21:16)
[2022-07-21] MEDS: DOCUSATE SODIUM 100 MG CAPSULE PO (21:16)
[2022-07-22] VITALS (30 sets, daily range): BP systolic 101–156; BP diastolic 45–60; PULSE 76–94; RESP 15–22; TEMP 36.4–37; O2SAT 92–95
[2022-07-22] MEDS: ALBUTEROL SULFATE NEB 2.5 MG/3 ML INH 5 MG INHALATION ×3 (02:55→21:32)
[2022-07-22] MEDS: IPRATROPIUM BR 0.02% INH SOLN 0.5 MG/2.5 ML VIAL INHALATION ×3 (02:55→21:32)
[2022-07-22] MEDS: LEVOTHYROXINE SODIUM 100 MCG TABLET PO (05:56)
[2022-07-22 07:45] LABS: Hematocrit 28.1 % (37.0-47.0); Hemoglobin 8.5 g/dL (12.0-15.0); Mean Corpuscular HGB Conc 30.2 g/dl (32-36); Mean Corpuscular Hemoglobin 27.8 pg (26-34); Mean Corpuscular Volume 91.8 fl (80-100); Mean Platelet Volume 10.8 fl (7.4-10.4); Platelet Count Result 319 k/mm3 (150-375); Red Blood Count 3.06 M/mm3 (4.2-5.4); Red Cell Distribution Width 15.9 % (11.5-14.5); White Blood Count 13.4 K/mm3 (4.5-10.0)
[2022-07-22 08:02] LABS: Albumin Level 3.8 g/dL (3.5-5.1); Anion Gap 12 mmol/L (8-16); Blood Urea Nitrogen 91 mg/dL (7-17); Calcium 8.1 mg/dL (8.4-10.2); Carbon Dioxide 27 mmol/L (22-30); Chloride 93 mmol/L (98-107); Estimated CRCL calculation 8 ml/min; Estimated Glomerular Filt Rate 7; Glucose 112 mg/dL (65-110); Magnesium 2.1 mg/dL (1.6-2.3); Phosphorus 6.1 mg/dL (2.5-4.5); Potassium 5.3 mmol/L (3.4-5.0); Sodium 132 mmol/L (137-145)
[2022-07-22] MEDS: busPIRone HCL 2.5 MG TABLET PO ×2 (08:24→16:37)
[2022-07-22] MEDS: DOCUSATE SODIUM 100 MG CAPSULE PO ×2 (08:24→20:20)
[2022-07-22] MEDS: cloNIDine HCL 0.1 MG TABLET PO ×3 (08:24→16:37)
[2022-07-22] MEDS: SPIRONOLACTONE 12.5 MG TABLET PO (08:24)
[2022-07-22] MEDS: amLODIPine BESYLATE 5 MG TABLET 10 MG PO (08:24)
[2022-07-22] MEDS: HEPARIN SODIUM 5,000 UNITS/ML VIAL 5000 UNITS SUB-Q ×2 (08:25→20:20)
[2022-07-22] MEDS: busPIRone HCL 5 MG TABLET PO ×2 (08:25→16:37)
[2022-07-22] MEDS: PANTOPRAZOLE 40 MG TABLET PO (08:25)
[2022-07-22] MEDS: lisinopriL 20 MG TABLET PO (08:25)
[2022-07-22] MEDS: FERROUS SULFATE 324 MG TABLET PO ×2 (08:25→16:37)
--- NOTE | 2022-07-22 09:14 | PM.CNNEP ---
Assessment and Plan Assessment and plan (1) End stage renal disease: Code(s): N18.6 - End stage renal disease Status: Chronic Assessment and Plan: The patient has end-stage renal disease. This is most likely due to diabetes and hypertension. She normally gets treatments Wednesdays and Fridays. She did not get up to the floor until late afternoon yesterday. Her labs were okay in oxygenation was stable so she will get dialysis today and then Sunday. Her volume status looks a little bit overloaded. It has a tiny bit of swelling and she also has some fluid on her chest x-ray. Will take off some fluid today as tolerated by her blood pressure. Her potassium was a bit high. Will use a 2 K bath. Hemoglobin is in the 8. Will give her dose of EPO today. The dialysis nurse was informed of her admission. (2) HTN (hypertension): Qualifiers: Hypertension type: primary hypertension Qualified Code(s): I10 - Essential (primary) hypertension Code(s): I10 - Essential (primary) hypertension Status: Chronic Assessment and Plan: Blood pressure is a little high. Will see how it is after fluid is removed. She is normally on amlodipine clonidine lisinopril. She is on spironolactone as well, unclear why. (3) Diabetes: Code(s): E11.9 - Type 2 diabetes mellitus without complications Status: Chronic Assessment and Plan: The patient has diabetes. She is not on meds for this. They are checking an occasional sugar. Management per hospitalists. 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 She will get Epogen [id number] with each treatment. I will check iron levels. Will check another CBC tomorrow (5) Renal osteodystrophy: Code(s): N25.0 - Renal osteodystrophy Status: Acute Assessment and Plan: Will check a phosphorus in the morning (6) COPD (chronic obstructive pulmonary disease): Code(s): J44.9 - Chronic obstructive pulmonary disease, unspecified Status: Acute Assessment and Plan: The patient is getting supportive care with steroids and inhalers. 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 The patient lives in a facility. She was found on the floor there. She had fallen but she does not remember falling herself. They brought her over to the emergency room. They did several x-rays of neck, leg, CT scan of the brain, and pelvis and all were unremarkable except for osteoarthritis. She was a bit short of breath so she came into the hospital. She was given treatment for COPD and seems to be a little bit better. Chest x-ray did show a little bit of fluid. Her oxygenation is the same as it is as an outpatient as she is still on 3L of oxygen. The patient denies any chest pain. No ENT or neurologic issues. Her last dialysis was Sunday. She will get a treatment today. Review of Systems Constitutional: Constitutional: Reports no additional constitutional complaints Eyes: Eyes: Reports no additional eye complaints ENT: Reports system reviewed and no additional complaints, except as documented Cardiovascular: Cardiovascular: Reports no additional cardiovascular complaints Respiratory: Respiratory: Reports no additional respiratory complaints Gastrointestinal: Gastrointestinal: R
[2022-07-22 10:37] LABS: Iron 18 ug/dL (37-170)
[2022-07-22 10:47] LABS: Percent Iron Saturation 8 % (20-50)
--- NOTE | 2022-07-22 11:46 | PM.IMPN ---
Progress Note: A&P Assessment and Plan (1) Fall: Code(s): W19.XXXA - Unspecified fall, initial encounter Status: Acute Assessment and Plan: ED-[facility] narrative: ?This is an 87-year-old female from [facility].? She had an unwitnessed fall earlier today.? she was found on the floor by staff members.? The patient herself does not recall any of the events leading to the fall.? ? She is complaining of total body pain.? The only obvious injury is a skin tear on her left upper extremity. patient is 87 y/o female are resident of [facility] with history of ESRD on HD MWF, was brought to ER after she had unwitnesed fall and found on the floor, poor historian and unable to provider any history, patient has no recollection of the event and c/o of bodyaches, in the ER patient had chest x-ray, cervical spine, pelvix x-ray as well as Ct scan of head without any acute injury. will have PT/OT evaluate the patient, will consult her nephrologst for scheduled dialysis, will monitor and further recommendation to follow. 07/22/2022 interval history, patient is 87 y/o female are resident of [facility] with history of ESRD on HD MWF, was brought to ER after she had unwitnesed fall and found on the floor, poor historian and unable to provider any history, patient has no recollection of the event and c/o of bodyaches, in the ER patient had chest x-ray, cervical spine, pelvix x-ray as well as Ct scan of head without any acute injury. yesterday patient complained to the nurse pain in her right lower extremity and swelling, venous Doppler were negative for DVT, after examination today appears to be cellulitis will start the patient on ceftriaxone, and monitor, will have PT/OT evaluate the patient, will consult her nephrologst for scheduled dialysis, patient will have scheduled dialysis today, will monitor and further recommendation to follow. (2) Hemodialysis patient: Code(s): Z99.2 - Dependence on renal dialysis Status: Acute Assessment and Plan: patient will have scheduled dialysis (3) Hypothyroidism: Code(s): E03.9 - Hypothyroidism, unspecified Status: Acute (4) Diabetes: Code(s): E11.9 - Type 2 diabetes mellitus without complications Status: Chronic Assessment and Plan: will continue home regimen and monitor with sliding scale Subjective Date/time seen: 07/22/22 11:46 ED-HPI narrative: ?This is an 87-year-old female from and [facility].? She had an unwitnessed fall earlier today.? she was found on the floor by staff members.? The patient herself does not recall any of the events leading to the fall.? ? She is complaining of total body pain.? The only obvious injury is a skin tear on her left upper extremity. 07/22/2022 interval history, patient is 87 y/o female are resident of [facility] with history of ESRD on HD MWF, was brought to ER after she had unwitnesed fall and found on the floor, poor historian and unable to provider any history, patient has no recollection of the event and c/o of bodyaches, in the ER patient had chest x-ray, cervical spine, pelvix x-ray as well as Ct scan of head without any acute injury. yesterday patient complained to the nurse pain in her right lower extremity and swelling, venous Doppler were negative for DVT, after examination today appears to be cellulitis will start the patient on ceftriaxone, and monitor, will have PT/OT evaluate the patient, will consult her nephrologst for scheduled dialysis, patient will have scheduled dialysis today, will monitor and further recommendation to follow. Review of Systems Review of Systems: ROS unobtainable: Yes unobtainable due to mental status Exam Narrative: moderately obese Patient is comfortable, NAD HEENT: eyes are clear and none icteric LUNGS: normal respiratory effort ABD: distended Lower extremities: no edema SKIN: nonjaundiced Neuro: grossly intact. Objective Da
[2022-07-22 13:21] LABS: Hepatitis B Surface Antigen Negative (Negative)
[2022-07-22 13:34] LABS: Hepatitis B Core IgM Result Negative (Negative)
[2022-07-22 13:47] LABS: Hepatitis B Surface Anti Res Negative
[2022-07-22] MEDS: EPOETIN ALFA-EPBX 10,000 UNITS/ML VIAL 10000 UNITS IV PUSH (14:04)
[2022-07-22] MEDS: SODIUM CHLORIDE 0.9% IV 1,000 ML 999 ML IV CONT (14:08)
--- NOTE | 2022-07-22 15:31 | PCRCNOTE ---
Window of time for administration has passed. See next scheduled administration.
[2022-07-22] MEDS: ATORVASTATIN 20 MG TABLET PO (20:20)
[2022-07-22] MEDS: LATANOPROST 0.005% OP SOLN 2.5 ML BTL 1 DROP EACH EYE (20:20)
[2022-07-23] VITALS (18 sets, daily range): BP systolic 159–168; BP diastolic 40–44; PULSE 65–88; RESP 18–22; TEMP 36.6–36.7; O2SAT 90–97
[2022-07-23] MEDS: ALBUTEROL SULFATE NEB 2.5 MG/3 ML INH 5 MG INHALATION ×4 (01:36→21:08)
[2022-07-23] MEDS: IPRATROPIUM BR 0.02% INH SOLN 0.5 MG/2.5 ML VIAL INHALATION ×4 (01:37→21:08)
[2022-07-23] MEDS: LEVOTHYROXINE SODIUM 100 MCG TABLET PO (06:07)
[2022-07-23 06:19] LABS: Hematocrit 29.7 % (37.0-47.0); Mean Corpuscular HGB Conc 30.3 g/dl (32-36); Mean Corpuscular Hemoglobin 28.9 pg (26-34); Mean Corpuscular Volume 95.5 fl (80-100); Mean Platelet Volume 10.5 fl (7.4-10.4); Platelet Count Result 272 k/mm3 (150-375); Red Blood Count 3.11 M/mm3 (4.2-5.4); Red Cell Distribution Width 15.9 % (11.5-14.5); White Blood Count 8.7 K/mm3 (4.5-10.0)
[2022-07-23 06:36] LABS: Albumin Level 3.4 g/dL (3.5-5.1); Anion Gap 7 mmol/L (8-16); Blood Urea Nitrogen 39 mg/dL (7-17); Calcium 7.5 mg/dL (8.4-10.2); Carbon Dioxide 35 mmol/L (22-30); Chloride 95 mmol/L (98-107); Estimated CRCL calculation 13 ml/min; Estimated Glomerular Filt Rate 14; Glucose 86 mg/dL (65-110); Potassium 4.4 mmol/L (3.4-5.0); Sodium 137 mmol/L (137-145)
--- NOTE | 2022-07-23 09:12 | PM.PNNEP ---
Progress Note: A&P Assessment and Plan (1) End stage renal disease: Code(s): N18.6 - End stage renal disease Status: Chronic Assessment and Plan: The patient has end-stage renal disease. This is most likely due to diabetes and hypertension. She received dialysis treatment yesterday. This went well Will perform another treatment tomorrow (2) HTN (hypertension): Qualifiers: Hypertension type: primary hypertension Qualified Code(s): I10 - Essential (primary) hypertension Code(s): I10 - Essential (primary) hypertension Status: Chronic Assessment and Plan: Blood pressure is a little high. She had fluid removed yesterday. Blood pressure transiently came down to the 130s but is back up to the 160s today. Will increase lisinopril to 40 (3) Diabetes: Code(s): E11.9 - Type 2 diabetes mellitus without complications Status: Chronic Assessment and Plan: The patient has diabetes. She is not on meds for this. They are checking an occasional sugar. Management per hospitalists. 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 She will get Epogen [id number] with each treatment. iron low. give venofer Will check another CBC tomorrow (5) Renal osteodystrophy: Code(s): N25.0 - Renal osteodystrophy Status: Acute Assessment and Plan: Phosphorus target (6) COPD (chronic obstructive pulmonary disease): Code(s): J44.9 - Chronic obstructive pulmonary disease, unspecified Status: Acute Assessment and Plan: The patient is getting supportive care with steroids and inhalers. Subjective Date/time seen: 07/23/22 09:12 Interval history: Sofía feels better today. Lying in bed. She is a bit chilly. I put an extra blanket on her. Review of Systems Cardiovascular: Cardiovascular: Reports no additional cardiovascular complaints Respiratory: Respiratory: Reports no additional respiratory complaints Gastrointestinal: Gastrointestinal: Reports no additional gastrointestinal complaints Genitourinary: Genitourinary: Reports no additional female genitourinary complaints Exam Narrative: WDWN in NAD skin no rash head ncat lungs clear cor reg no rub or gallop abd BS+ nontender and soft ext no edema. Objective Data Vital Signs Vital Signs: Vital Signs - 24 hr 07/22/22 11:32 07/22/22 12:00 07/22/22 12:20 Temperature Pulse Rate 83 81 89 Respiratory Rate Blood Pressure 147/52 H 131/57 L 152/49 H Pulse Oximetry Oxygen Delivery Oxygen Flow Rate 07/22/22 13:00 07/22/22 11:23 07/22/22 13:30 Temperature 98.3 F Pulse Rate 80 89 83 Respiratory Rate 15 Blood Pressure 118/46 L 144/60 H 129/51 L Pulse Oximetry Oxygen Delivery Oxygen Flow Rate 07/22/22 11:23 07/22/22 14:00 07/22/22 11:40 Temperature Pulse Rate 90 84 Respiratory Rate Blood Pressure 101/56 L 142/55 H Pulse Oximetry Oxygen Delivery Oxygen Flow Rate 3 07/22/22 12:00 07/22/22 12:40 07/22/22 13:20 Temperature Pulse Rate 81 82 81 Respiratory Rate Blood Pressure 136/51 L 108/45 L Pulse Oximetry Oxygen Delivery Oxygen Flow Rate 07/22/22 13:40 07/22/22 14:20 07/22/22 14:40 Temperature Pulse Rate 89 83 83 Respiratory Rate Blood Pressure 153/57 H 124/55 L 151/51 H Pulse Oximetry Oxygen Delivery Oxygen Flow Rate 07/22/22 15:00 07/22/22 15:20 07/22/22 15:14 Temperature 97.6 F Pulse Rate 76 85 83 Respiratory Rate 16 Blood Pressure 140/57 L 135/53 L 137/53 L Pulse Oximetry Oxygen Delivery Oxygen Flow Rate 07/22/22 16:00 07/22/22 21:35 07/22/22 21:35 Temperature Pulse Rate 93 90 Respiratory Rate 20 Blood Pressure Pulse Oximetry 94 Oxygen Delivery Nasal Cannula Oxygen Joe
[2022-07-23] MEDS: DOCUSATE SODIUM 100 MG CAPSULE PO ×2 (09:58→21:45)
[2022-07-23] MEDS: HEPARIN SODIUM 5,000 UNITS/ML VIAL 5000 UNITS SUB-Q ×2 (09:58→21:45)
[2022-07-23] MEDS: SPIRONOLACTONE 12.5 MG TABLET PO (09:59)
[2022-07-23] MEDS: busPIRone HCL 5 MG TABLET PO ×2 (09:59→16:56)
[2022-07-23] MEDS: FERROUS SULFATE 324 MG TABLET PO ×2 (09:59→16:55)
[2022-07-23] MEDS: cloNIDine HCL 0.1 MG TABLET PO ×3 (09:59→16:55)
[2022-07-23] MEDS: lisinopriL 20 MG TABLET PO (09:59)
[2022-07-23] MEDS: busPIRone HCL 2.5 MG TABLET PO ×2 (10:00→16:56)
[2022-07-23] MEDS: amLODIPine BESYLATE 5 MG TABLET 10 MG PO (10:00)
[2022-07-23] MEDS: PANTOPRAZOLE 40 MG TABLET PO (10:02)
--- NOTE | 2022-07-23 12:23 | PM.IMPN ---
Progress Note: A&P Assessment and Plan (1) Fall: Code(s): W19.XXXA - Unspecified fall, initial encounter Status: Acute Assessment and Plan: ED-[facility] narrative: ?This is an 87-year-old female from [facility].? She had an unwitnessed fall earlier today.? she was found on the floor by staff members.? The patient herself does not recall any of the events leading to the fall.? ? She is complaining of total body pain.? The only obvious injury is a skin tear on her left upper extremity. patient is 87 y/o female are resident of [facility] with history of ESRD on HD MWF, was brought to ER after she had unwitnesed fall and found on the floor, poor historian and unable to provider any history, patient has no recollection of the event and c/o of bodyaches, in the ER patient had chest x-ray, cervical spine, pelvix x-ray as well as Ct scan of head without any acute injury. will have PT/OT evaluate the patient, will consult her nephrologst for scheduled dialysis, will monitor and further recommendation to follow. 07/23/2022 interval history, patient is 87 y/o female are resident of [facility] with history of ESRD on HD MWF, was brought to ER after she had unwitnesed fall and found on the floor, poor historian and unable to provider any history, patient has no recollection of the event and c/o of bodyaches, in the ER patient had chest x-ray, cervical spine, pelvix x-ray as well as Ct scan of head without any acute injury. on 07/21 patient complained to the nurse pain in her right lower extremity and swelling, venous Doppler were negative for DVT, after examination on 07/22 appears to be cellulitis started the patient on ceftriaxone, and monitor, will have PT/OT evaluate the patient, seen by her nephrologst for scheduled dialysis, patient had scheduled dialysis on 07/22, will have dialysis tomorrow, will monitor and further recommendation to follow. (2) Hemodialysis patient: Code(s): Z99.2 - Dependence on renal dialysis Status: Acute Assessment and Plan: patient will have scheduled dialysis (3) Hypothyroidism: Code(s): E03.9 - Hypothyroidism, unspecified Status: Acute (4) Diabetes: Code(s): E11.9 - Type 2 diabetes mellitus without complications Status: Chronic Assessment and Plan: will continue home regimen and monitor with sliding scale Subjective Date/time seen: 07/23/22 12:23 ED-HPI narrative: ?This is an 87-year-old female from [facility].? She had an unwitnessed fall earlier today.? she was found on the floor by staff members.? The patient herself does not recall any of the events leading to the fall.? ? She is complaining of total body pain.? The only obvious injury is a skin tear on her left upper extremity. patient is 87 y/o female are resident of [facility] with history of ESRD on HD MWF, was brought to ER after she had unwitnesed fall and found on the floor, poor historian and unable to provider any history, patient has no recollection of the event and c/o of bodyaches, in the ER patient had chest x-ray, cervical spine, pelvix x-ray as well as Ct scan of head without any acute injury. will have PT/OT evaluate the patient, will consult her nephrologst for scheduled dialysis, will monitor and further recommendation to follow. 07/23/2022 interval history, patient is 87 y/o female are resident of [facility] with history of ESRD on HD MWF, was brought to ER after she had unwitnesed fall and found on the floor, poor historian and unable to provider any history, patient has no recollection of the event and c/o of bodyaches, in the ER patient had chest x-ray, cervical spine, pelvix x-ray as well as Ct scan of head without any acute injury. on 07/21 patient complained to the nurse pain in her right lower extremity and swelling, venous Doppler were negative for DVT, after examination on 07/22 appears to be cellulitis started the patient on ceftriaxon
--- NOTE | 2022-07-23 20:19 | PC.NURSE ---
Orders for Heparin and iron sucrose need to be clarified. Hospitalist notified and stated to get nephrology to clarify orders. PM derrick boat runner notified and will f/u for clarification.
[2022-07-23] MEDS: IRON SUCROSE COMPLEX 200 MG in SODIUM CHLORIDE 0.9% IV 50 ML 120 MG IVPB (20:52)
[2022-07-23] MEDS: LATANOPROST 0.005% OP SOLN 2.5 ML BTL 1 DROP EACH EYE (21:46)
[2022-07-23] MEDS: lisinopriL 20 MG TABLET 40 MG PO (21:46)
[2022-07-23] MEDS: ATORVASTATIN 20 MG TABLET PO (21:46)
[2022-07-24] VITALS (17 sets, daily range): BP systolic 174–220; BP diastolic 55–72; PULSE 70–82; RESP 18–20; TEMP 36.6–36.7; O2SAT 90–95; BMI 28.5
[2022-07-24] MEDS: ACETAMINOPHEN 325 MG TABLET 650 MG PO (00:46)
[2022-07-24] MEDS: IPRATROPIUM BR 0.02% INH SOLN 0.5 MG/2.5 ML VIAL INHALATION ×4 (02:35→21:18)
[2022-07-24] MEDS: ALBUTEROL SULFATE NEB 2.5 MG/3 ML INH 5 MG INHALATION ×4 (02:37→21:19)
[2022-07-24] MEDS: LEVOTHYROXINE SODIUM 100 MCG TABLET PO (05:29)
[2022-07-24 06:38] LABS: Hematocrit 32.5 % (37.0-47.0); Hemoglobin 9.7 g/dL (12.0-15.0); Mean Corpuscular HGB Conc 29.8 g/dl (32-36); Mean Corpuscular Hemoglobin 27.6 pg (26-34); Mean Corpuscular Volume 92.6 fl (80-100); Mean Platelet Volume 10.6 fl (7.4-10.4); Platelet Count Result 311 k/mm3 (150-375); Red Blood Count 3.51 M/mm3 (4.2-5.4); Red Cell Distribution Width 15.6 % (11.5-14.5); White Blood Count 8.2 K/mm3 (4.5-10.0)
[2022-07-24 06:50] LABS: Anion Gap 9 mmol/L (8-16); Blood Urea Nitrogen 53 mg/dL (7-17); Carbon Dioxide 33 mmol/L (22-30); Chloride 91 mmol/L (98-107); Estimated CRCL calculation 9 ml/min; Estimated Glomerular Filt Rate 10; Glucose 103 mg/dL (65-110); Phosphorus 5.3 mg/dL (2.5-4.5); Potassium 4.5 mmol/L (3.4-5.0); Sodium 133 mmol/L (137-145)
--- NOTE | 2022-07-24 09:46 | PCOTNOTE ---
Attempted to see pt. for occupational therapy evaluation. Due to concerns for potential undiagnosed L UE skeletal injury with visible soft tissue damage, consulted hospitalist who agreed to x-ray of L humerus. Pt. to be seen for evaluation after determination of injury. Nursing aware. Following.
--- NOTE | 2022-07-24 10:06 | PCPTNOTE ---
Will see post L UE x-ray to ensure pt does not have any additional injury since fall. Will follow.
--- NOTE | 2022-07-24 14:03 | PC.NURSE ---
Morning meds were held per MD until after dialysis. Will administer then.
--- NOTE | 2022-07-24 14:25 | PCPTNOTE ---
Attempted PT evaluation, Per RN, pt's BP too high to participate in therapy at this time. Will follow
--- NOTE | 2022-07-24 14:29 | PM.IMPN ---
Progress Note: A&P Assessment and Plan (1) Fall: Code(s): W19.XXXA - Unspecified fall, initial encounter Status: Acute Assessment and Plan: ED-[facility] narrative: ?This is an 87-year-old female from [facility].? She had an unwitnessed fall earlier today.? she was found on the floor by staff members.? The patient herself does not recall any of the events leading to the fall.? ? She is complaining of total body pain.? The only obvious injury is a skin tear on her left upper extremity. patient is 87 y/o female are resident of [facility] with history of ESRD on HD MWF, was brought to ER after she had unwitnesed fall and found on the floor, poor historian and unable to provider any history, patient has no recollection of the event and c/o of bodyaches, in the ER patient had chest x-ray, cervical spine, pelvix x-ray as well as Ct scan of head without any acute injury. will have PT/OT evaluate the patient, will consult her nephrologst for scheduled dialysis, will monitor and further recommendation to follow. 07/24/2022 interval history, patient is 87 y/o female a resident of [facility] with history of ESRD on HD MWF, was brought to ER after she had unwitnesed fall and found on the floor, poor historian and unable to provider any history, patient has no recollection of the event and c/o of bodyaches, in the ER patient had chest x-ray, cervical spine, pelvix x-ray as well as Ct scan of head without any acute injury. on 07/21 patient complained to the nurse pain in her right lower extremity and swelling, venous Doppler were negative for DVT, after examination on 07/22 appears to be cellulitis started the patient on ceftriaxone, and monitor, will have PT/OT evaluate the patient patient has cellulits on right lower extremity, started on ceftriaxone, today patient c/o pain in left elbow, x-ray of the arm did no show any acute injury, seen by her nephrologst for scheduled dialysis, patient had scheduled dialysis on 07/22, will have dialysis today, may discharge patient tomorrow, will monitor and further recommendation to follow. (2) Hemodialysis patient: Code(s): Z99.2 - Dependence on renal dialysis Status: Acute Assessment and Plan: patient will have scheduled dialysis (3) Hypothyroidism: Code(s): E03.9 - Hypothyroidism, unspecified Status: Acute (4) Diabetes: Code(s): E11.9 - Type 2 diabetes mellitus without complications Status: Chronic Assessment and Plan: will continue home regimen and monitor with sliding scale Subjective Date/time seen: 07/24/22 14:29 ED-HPI narrative: ?This is an 87-year-old female from [facility].? She had an unwitnessed fall earlier today.? she was found on the floor by staff members.? The patient herself does not recall any of the events leading to the fall.? ? She is complaining of total body pain.? The only obvious injury is a skin tear on her left upper extremity. patient is 87 y/o female are resident of [facility] with history of ESRD on HD MWF, was brought to ER after she had unwitnesed fall and found on the floor, poor historian and unable to provider any history, patient has no recollection of the event and c/o of bodyaches, in the ER patient had chest x-ray, cervical spine, pelvix x-ray as well as Ct scan of head without any acute injury. will have PT/OT evaluate the patient, will consult her nephrologst for scheduled dialysis, will monitor and further recommendation to follow. 07/24/2022 interval history, patient is 87 y/o female a resident of [facility] with history of ESRD on HD MWF, was brought to ER after she had unwitnesed fall and found on the floor, poor historian and unable to provider any history, patient has no recollection of the event and c/o of bodyaches, in the ER patient had chest x-ray, cervical spine, pelvix x-ray as well as Ct scan of head without any acute injury. on 07/21 patient complained to
[2022-07-24] MEDS: FERROUS SULFATE 324 MG TABLET PO ×2 (14:36→22:14)
[2022-07-24] MEDS: amLODIPine BESYLATE 5 MG TABLET 10 MG PO (14:37)
[2022-07-24] MEDS: cloNIDine HCL 0.1 MG TABLET PO ×2 (14:37→22:15)
[2022-07-24] MEDS: busPIRone HCL 5 MG TABLET PO ×2 (14:37→22:15)
[2022-07-24] MEDS: busPIRone HCL 2.5 MG TABLET PO ×2 (14:37→22:15)
[2022-07-24] MEDS: ERGOCALCIFEROL 50,000 UNITS CAPSULE 50000 UNITS PO (14:37)
[2022-07-24] MEDS: PANTOPRAZOLE 40 MG TABLET PO (14:37)
[2022-07-24] MEDS: SPIRONOLACTONE 12.5 MG TABLET PO (14:37)
[2022-07-24] MEDS: DOCUSATE SODIUM 100 MG CAPSULE PO ×2 (14:37→22:14)
--- NOTE | 2022-07-24 15:51 | PC.NURSE ---
Pt has been sitting on the side of the bed today. Pt was offered coloring page to give her something to do while waiting for dialysis. Pt's medications were off schedule per doctors order waiting for dialysis. Physician notified and home meds were given. Pt still awaiting dialysis. Will continue to monitor the pt.
--- NOTE | 2022-07-24 16:25 | PCHDNOTE ---
Patient had Dialysis on 07/22/22. Per Dr. Ugalde- Hold treatment for today. Plan for treatment tomorrow 07/25 and short treatment on 07/26 to get back on her outpatient schedule of [facility]
--- NOTE | 2022-07-24 17:08 | PM.PNNEP ---
Progress Note: A&P Assessment and Plan (1) End stage renal disease: Code(s): N18.6 - End stage renal disease Status: Chronic Assessment and Plan: normally on M/W/F dialysis schedule last treatment here on Sunday had planned HD today but bumped off schedule by more emergent dialysis cases plan HD tomorrow with eventual plan to transition back to M/W/F (2) COPD (chronic obstructive pulmonary disease): Code(s): J44.9 - Chronic obstructive pulmonary disease, unspecified Status: Acute Assessment and Plan: on inhalers and steroids continue supportive therapy (3) HTN (hypertension): Qualifiers: Hypertension type: primary hypertension Qualified Code(s): I10 - Essential (primary) hypertension Code(s): I10 - Essential (primary) hypertension Status: Chronic Assessment and Plan: running a bit high today lisinopril just recently increased follow trend of hemodynamics (4) 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 Diaz; was scheduled for dialysis today but was bumped from schedule due to emergent dialysis cases; no new issues or problems to report; no apparent distress. Exam Narrative: General: elderly female in NAD Heart: normal S1 and S2; no rub Lungs: coarse breath sounds Abdomen: soft, nontender, nondistended, positive bowel sounds Extremities: no cyanosis or clubbing; no edema Skin: warm and dry Objective Data Vital Signs Vital Signs: Vital Signs Temp Pulse Resp BP Pulse Ox O2 Del Method O2 Flow Rate 07/24/22 14:38 220/72 H 07/24/22 14:11 77 18 07/24/22 14:00 74 18 07/24/22 12:03 82 07/24/22 08:50 76 20 07/24/22 08:00 77 07/24/22 08:44 93 Nasal Cannula 3 07/24/22 08:29 70 20 07/24/22 08:29 70 20 93 Nasal Cannula 3 07/24/22 05:15 98.1 F 80 20 183/60 H 90 07/24/22 04:00 77 07/24/22 02:48 73 18 07/24/22 02:38 71 18 07/24/22 00:00 70 07/23/22 20:00 65 07/23/22 21:25 68 18 07/23/22 21:27 95 Nasal Cannula 3 07/23/22 21:28 98.1 F 70 19 159/44 H 97 07/23/22 21:08 65 18 Intake/Output Intake/Output: Intake & Output 07/21/22 07/22/22 07/23/22 07/24/22 23:59 23:59 23:59 23:59 Intake Total 2300 1215 1270 598 Output Total 2100 Balance 2300 -885 1270 598 Meds/Results Medications: Active Medications Generic Name Dose Route Start Last Admin Trade Name Freq PRN Reason Stop Dose Admin Acetaminophen 650 mg 07/21/22 12:04 07/24/22 00:46 Acetaminophen 325 Mg Tablet PO 650 mg Q6H PRN Administration Pain (Scale Score 1-3) Albuterol 5 mg 07/21/22 08:00 07/24/22 14:05 Albuterol Sulfate Neb 2.5 Mg/3 Ml Inh INHALATION 5 mg Q6HRT LAUREN Administration Albuterol 2.5 mg 07/21/22 11:47 Albuterol Sulfate Neb 2.5 Mg/3 Ml Inh INHALATION Q6HRT PRN shortness of breath Amlodipine Besylate 10 mg 07/21/22 13:00 07/24/22 14:37 Amlodipine Besylate 5 Mg Tablet PO 10 mg QAM LAUREN Administration Atorvastatin Calcium 20 mg 07/21/22 21:00 07/23/22 21:46 Atorvastatin 20 Mg Tablet PO 20 mg HS LAUREN Administration Buspirone HCl 5 mg 07/21/22 17:00 07/24/22 14:37 Buspirone Hcl 5 Mg Tablet PO 5 mg BID LAUREN Administration Buspirone HCl 2.5 mg 07/21/22 17:00 07/24/22 14:37 Buspirone Hcl 2.5 Mg Tablet PO 2.5 mg BID LAUREN Administration Clonidine HCl
[2022-07-24] MEDS: HEPARIN SODIUM 5,000 UNITS/ML VIAL 5000 UNITS SUB-Q (22:14)
[2022-07-24] MEDS: lisinopriL 20 MG TABLET 40 MG PO (22:14)
[2022-07-24] MEDS: ATORVASTATIN 20 MG TABLET PO (22:15)
[2022-07-24] MEDS: IRON SUCROSE COMPLEX 200 MG in SODIUM CHLORIDE 0.9% IV 50 ML 120 MG IVPB (22:16)
[2022-07-24] MEDS: LATANOPROST 0.005% OP SOLN 2.5 ML BTL 1 DROP EACH EYE (22:16)
[2022-07-25] VITALS (25 sets, daily range): BP systolic 123–160; BP diastolic 36–66; PULSE 69–80; RESP 16–20; TEMP 36–36.8; O2SAT 90–97
[2022-07-25] MEDS: ALBUTEROL SULFATE NEB 2.5 MG/3 ML INH 5 MG INHALATION ×4 (02:58→21:00)
[2022-07-25] MEDS: IPRATROPIUM BR 0.02% INH SOLN 0.5 MG/2.5 ML VIAL INHALATION ×4 (02:59→21:00)
[2022-07-25] MEDS: LEVOTHYROXINE SODIUM 100 MCG TABLET PO (05:31)
[2022-07-25 06:37] LABS: Hematocrit 31.5 % (37.0-47.0); Hemoglobin 9.6 g/dL (12.0-15.0); Mean Corpuscular HGB Conc 30.5 g/dl (32-36); Mean Corpuscular Hemoglobin 28.4 pg (26-34); Mean Corpuscular Volume 93.2 fl (80-100); Mean Platelet Volume 10.7 fl (7.4-10.4); Platelet Count Result 269 k/mm3 (150-375); Red Blood Count 3.38 M/mm3 (4.2-5.4); Red Cell Distribution Width 15.4 % (11.5-14.5); White Blood Count 7.7 K/mm3 (4.5-10.0)
[2022-07-25 07:07] LABS: Albumin Level 3.6 g/dL (3.5-5.1); Anion Gap 7 mmol/L (8-16); Blood Urea Nitrogen 65 mg/dL (7-17); Calcium 8.1 mg/dL (8.4-10.2); Carbon Dioxide 32 mmol/L (22-30); Chloride 89 mmol/L (98-107); Estimated CRCL calculation 9 ml/min; Estimated Glomerular Filt Rate 10; Glucose 80 mg/dL (65-110); Phosphorus 6.8 mg/dL (2.5-4.5); Potassium 5.7 mmol/L (3.4-5.0); Sodium 128 mmol/L (137-145)
[2022-07-25] MEDS: DOCUSATE SODIUM 100 MG CAPSULE PO ×2 (09:09→21:58)
[2022-07-25] MEDS: busPIRone HCL 5 MG TABLET PO ×2 (09:09→21:59)
[2022-07-25] MEDS: cloNIDine HCL 0.1 MG TABLET PO ×3 (09:09→21:58)
[2022-07-25] MEDS: HEPARIN SODIUM 5,000 UNITS/ML VIAL 5000 UNITS SUB-Q ×2 (09:09→21:59)
[2022-07-25] MEDS: PANTOPRAZOLE 40 MG TABLET PO (09:09)
[2022-07-25] MEDS: amLODIPine BESYLATE 5 MG TABLET 10 MG PO (09:09)
[2022-07-25] MEDS: SPIRONOLACTONE 12.5 MG TABLET PO (09:09)
[2022-07-25] MEDS: FERROUS SULFATE 324 MG TABLET PO ×2 (09:09→21:59)
[2022-07-25] MEDS: busPIRone HCL 2.5 MG TABLET PO ×2 (09:09→21:59)
--- NOTE | 2022-07-25 17:22 | PM.DS ---
DS: Admitting Diagnosis Discharge Date 07/25/2022 Admitting Diagnosis unwitnessed fall DS: Discharge Diagnosis Discharge Diagnosis (1) Fall: Code(s): W19.XXXA - Unspecified fall, initial encounter Status: Acute Assessment and Plan: ED-[facility] narrative: ?This is an 87-year-old female from [facility] [place].? She had an unwitnessed fall earlier today.? she was found on the floor by staff members.? The patient herself does not recall any of the events leading to the fall.? ? She is complaining of total body pain.? The only obvious injury is a skin tear on her left upper extremity. patient is 87 y/o female are resident of [facility] [place] with history of ESRD on HD MWF, was brought to ER after she had unwitnesed fall and found on the floor, poor historian and unable to provider any history, patient has no recollection of the event and c/o of bodyaches, in the ER patient had chest x-ray, cervical spine, pelvix x-ray as well as Ct scan of head without any acute injury. will have PT/OT evaluate the patient, will consult her nephrologst for scheduled dialysis, will monitor and further recommendation to follow. 07/24/2022 interval history, patient is 87 y/o female a resident of [facility] [place] with history of ESRD on HD MWF, was brought to ER after she had unwitnesed fall and found on the floor, poor historian and unable to provider any history, patient has no recollection of the event and c/o of bodyaches, in the ER patient had chest x-ray, cervical spine, pelvix x-ray as well as Ct scan of head without any acute injury. on 07/21 patient complained to the nurse pain in her right lower extremity and swelling, venous Doppler were negative for DVT, after examination on 07/22 appears to be cellulitis started the patient on ceftriaxone, and monitor, will have PT/OT evaluate the patient patient has cellulits on right lower extremity, started on ceftriaxone, today patient c/o pain in left elbow, x-ray of the arm did no show any acute injury, seen by her nephrologst for scheduled dialysis, patient had scheduled dialysis on 07/22, will have dialysis today, may discharge patient tomorrow, will monitor and further recommendation to follow. (2) Hemodialysis patient: Code(s): Z99.2 - Dependence on renal dialysis Status: Acute Assessment and Plan: patient will have scheduled dialysis (3) Hypothyroidism: Code(s): E03.9 - Hypothyroidism, unspecified Status: Acute (4) Diabetes: Code(s): E11.9 - Type 2 diabetes mellitus without complications Status: Chronic Assessment and Plan: will continue home regimen and monitor with sliding scale DS: Summary Hospital Course Reason for hospitalization: ED-HPI narrative: ?This is an 87-year-old female from [facility] [place].? She had an unwitnessed fall earlier today.? she was found on the floor by staff members.? The patient herself does not recall any of the events leading to the fall.? ? She is complaining of total body pain.? The only obvious injury is a skin tear on her left upper extremity. patient is 87 y/o female are resident of [facility] [place] with history of ESRD on HD MWF, was brought to ER after she had unwitnesed fall and found on the floor, poor historian and unable to provider any history, patient has no recollection of the event and c/o of bodyaches, in the ER patient had chest x-ray, cervical spine, pelvix x-ray as well as Ct scan of head without any acute injury. will have PT/OT evaluate the patient, will consult her nephrologst for scheduled dialysis, will monitor and further recommendation to follow. Hospital Course: ?patient is 87 y/o female a resident of [facility] [place] with history of ESRD on HD MWF, was brought to ER after she had unwitnesed fall and found on the floor, poor historian and unable to provider any history, patient has no recollection of the event and c/o of bodyaches, in the ER patient had chest x-ray, cervical
--- NOTE | 2022-07-25 18:21 | PM.PNNEP ---
Progress Note: A&P Assessment and Plan (1) End stage renal disease: Code(s): N18.6 - End stage renal disease Status: Chronic Assessment and Plan: normally on M/W/F dialysis schedule last treatment here on Sunday plan HD today with eventual plan to transition back to M/W/F (HD tomorrow here or at outpatient dialysis unit) (2) COPD (chronic obstructive pulmonary disease): Code(s): J44.9 - Chronic obstructive pulmonary disease, unspecified Status: Acute Assessment and Plan: on inhalers and steroids continue supportive therapy (3) HTN (hypertension): Qualifiers: Hypertension type: primary hypertension Qualified Code(s): I10 - Essential (primary) hypertension Code(s): I10 - Essential (primary) hypertension Status: Chronic Assessment and Plan: better at this time lisinopril just recently increased follow trend of hemodynamics (4) Erythropoietin deficiency anemia: Code(s): D63.1 - Anemia in chronic kidney disease Status: Chronic Assessment and Plan: due to ESRD and acute illness Epogen with HD follow H/H (5) Diabetes: Code(s): E11.9 - Type 2 diabetes mellitus without complications Status: Chronic Assessment and Plan: appears diet controlled follow sugars intermittently Will continue to follow Subjective Date/time seen: 07/25/22 18:21 Tolerating dialysis treatment at the time of my visit (seen on HD at ~ 6:15PM); no apparent issues or problems to report at this time; respiratory status seems stable; noted plans for tentative discharge following dialysis. Exam Narrative: General: elderly female in NAD Heart: normal S1 and S2; no rub Lungs: coarse breath sounds Abdomen: soft, nontender, nondistended, positive bowel sounds Extremities: no cyanosis or clubbing; no edema Skin: warm and intact Objective Data Vital Signs Vital Signs: Vital Signs Temp Pulse Resp BP Pulse Ox O2 Del Method O2 Flow Rate 07/25/22 18:20 72 150/63 H 07/25/22 18:15 3 07/25/22 18:06 98.1 F 74 20 156/66 H 07/25/22 14:00 97.0 F L 72 16 151/44 H 97 07/25/22 13:55 72 18 07/25/22 13:11 Nasal Cannula 3 07/25/22 09:09 91 Nasal Cannula 3 07/25/22 09:08 Nasal Cannula 3 07/25/22 08:55 80 18 07/25/22 08:41 90 Nasal Cannula 3 07/25/22 08:39 78 18 Intake/Output Intake/Output: Intake & Output 07/23/22 07/24/22 07/25/22 07/26/22 23:59 23:59 23:59 23:59 Intake Total 1330 708 980 Output Total 2500 Balance 1330 708 -1520 Meds/Results Radiology Results: ITS Impressions Chest X-Ray 07/21/22 03:01 Impression: 1: Cardiomegaly with mild interstitial edema. Pelvis X-Ray 07/21/22 03:04 Impression: 1: No acute fracture. Head CT 07/21/22 06:07 IMPRESSION: 1. Normal aging brain. Cervical Spine CT 07/21/22 06:10 IMPRESSION: 1. No fracture. 2. Severe cervical spondylosis. 3. Mild emphysema. Tibia/Fibula X-Ray 07/21/22 15:27 IMPRESSION: 1: NO ACUTE BONE OR JOINT ABNORMALITY IDENTIFIED. Venous Doppler Study 07/21/22 16:21 IMPRESSION: 1: No lower extremity deep venous thrombosis. Elbow X-Ray 07/24/22 12:57 Impression: Unremarkable radiographs. Labs Labs: Laboratory Tests 07/25/22 06:19 07/25/22 06:19
--- NOTE | 2022-07-25 19:07 | PC.NURSE ---
Pt had to have a new IV placed today due to previous IV leaking. IV was placed my vascular access nurse. Pt has gone to dialysis this evening. Pt evening medication held due to dialysis. Pt to discharge after dialysis back to care home. Will continue to monitor pt.
[2022-07-25] MEDS: lisinopriL 20 MG TABLET 40 MG PO (21:58)
[2022-07-25] MEDS: IRON SUCROSE COMPLEX 200 MG in SODIUM CHLORIDE 0.9% IV 50 ML 120 MG IVPB (21:59)
[2022-07-25] MEDS: LATANOPROST 0.005% OP SOLN 2.5 ML BTL 1 DROP EACH EYE (21:59)
[2022-07-25] MEDS: ATORVASTATIN 20 MG TABLET PO (21:59)
[2022-07-26 03:11] LABS: Hepatitis B Core Ab Total Nonreactive (Nonreactive)
== END 2022-07-26 00:09 | DRG 602 ==
LOC: ANHED 07-21 06:36 → ANH3MEDSUR 07-21 08:55
PROVIDERS: Internal Medicine Nephrology; Admitting Provider Internal Medicine; Emergency Provider Emergency Medicine; PCP Internal Medicine; Visit Provider Family Medicine
DX: L03.115 Cellulitis of right lower limb (principal); N18.6 End stage renal disease; J96.10 Chronic respiratory failure, unspecified whether with hypoxia or hypercapnia; I12.0 Hypertensive chronic kidney disease with stage 5 chronic kidney disease or end stage renal disease; E11.22 Type 2 diabetes mellitus with diabetic chronic kidney disease; J44.9 Chronic obstructive pulmonary disease, unspecified; D63.1 Anemia in chronic kidney disease; E87.5 Hyperkalemia; E78.5 Hyperlipidemia, unspecified; E55.9 Vitamin D deficiency, unspecified; E03.9 Hypothyroidism, unspecified; N25.0 Renal osteodystrophy; K21.9 Gastro-esophageal reflux disease without esophagitis; M19.90 Unspecified osteoarthritis, unspecified site; H40.9 Unspecified glaucoma; S41.112A Laceration without foreign body of left upper arm, initial encounter; W19.XXXA Unspecified fall, initial encounter; Z20.822 Contact with and (suspected) exposure to COVID-19; Z99.81 Dependence on supplemental oxygen; Z99.2 Dependence on renal dialysis
CPT/HCPCS: 36415; 70450; 71045; 72125; 72170; 73080; 73590; 80053; 80069; 81001; 82728; 82803; 82948; 83540; 83550; 83735; 83880; 84484; 85025; 85027; 86704; 86705; 86706; 87340; 87637; 93005; 93971; 94640; 96361; 96365; 96366; 96367; 96372; 96375; 96376; 97161; 97165; 99285; A9270; G0257; G0378; J0696; J1644; J1756; J2930; J7030; Q5105

== ENCOUNTER 2022-08-25 08:58 | Inpatient (IN) | payer MEDICARE, MEDICAID, SELFPAY ==
[2022-08-25] VITALS (49 sets, daily range): BP systolic 113–149; BP diastolic 40–93; PULSE 67–104; RESP 16–35; TEMP 36.5–37.5; O2SAT 83–100; BMI 27.3
--- NOTE | ~2022-08-25 | XR_ITS ---
XR chest 1V portable DATE: 08/26/2022 18:50 INDICATION: Difficulty breathing TECHNIQUE: Portable upright AP chest on 08/26/2022 1831 hours COMPARISON: 08/26/2022 portable AP chest at 0527 hours FINDINGS: There is cardiomegaly and pulmonary vascular congestion and redistribution, with Pastor B-l catherine indicating pulmonary interstitial edema, mild central and lower lung zone focal infiltrates, rig ht greater than left, which may also be consistent with edema. Pneumonia aspiration pneumonitis are n ot excluded. Aortic calcification. Very small pleural effusions. No pneumothorax. Diffuse osteopenia. IMPRESSION: Congestive heart failure and probable pulmonary edema; central and lower lung zone infilt rates, right greater than left. These may be due to pulmonary edema. Pneumonia or aspiration are not excluded Little interval change since earlier today Reviewed, dictated and finalized at location A. IMPRESSION: Congestive heart failure and probable pulmonary edema; central and lower lung zone infiltrates, right greater than left. These may be due to pulmo nary edema. Pneumonia or aspiration are not excluded Little interval change since earlier today
--- NOTE | ~2022-08-25 | XR_ITS ---
EXAMINATION: XR chest 1V portable DATE: 08/25/2022 10:03 INDICATION: Shortness of breath TECHNIQUE: frontal view of the chest was obtained. COMPARISON: Chest radiograph dated 07/21/2022 FINDINGS: Patient remains rotated towards the right. New prominent airspace opacities in the right mid and lowe r lung zones. The right costophrenic angle is indistinct suggesting possibility of a small right pleu ral effusion. Pulmonary vascular congestion with increased indistinct interstitial pattern in the lef t lower lung zone which could represent mild pulmonary edema. No pneumothorax or left-sided pleural e ffusion. The right side of the enlarged cardiac silhouette is obscured by the adjacent lung disease i n the current study. IMPRESSION: 1. Cardiomegaly with pulmonary vascular congestion mild pulmonary edema evident at the left lung base . 2. New dense airspace opacities in the right mid and lower lung zone which could represent pneumonia, atelectasis, small right pleural effusion or some combination thereof. Reviewed, dictated and finalized at location A. IMPRESSION: 1. Cardiomegaly with pulmonary vascular congestion mild pulmonary edema evident at the left lung base. 2. New dense airspace opacities in the right mid and lower lung zone which coul d represent pneumonia, atelectasis, small right pleural effusion or some combin ation thereof.
--- NOTE | ~2022-08-25 | XR_ITS ---
EXAMINATION: XR chest 1V portable INDICATION: COPD exacerbation TECHNIQUE: Portable AP chest at 0526 hours COMPARISON: 08/26/2022 FINDINGS: Cardiomegaly is noted. Diffuse interstitial opacities persist without significant change. T here is slightly increased airspace opacities of the right lung base. No or pneumothorax is identifie d. There are small pleural effusions. IMPRESSION: 1. Cardiomegaly with mild pulmonary edema. 2. Minimal increase in right basilar airspace opacity, consistent with atelectasis versus pneumonia. Reviewed, dictated and finalized at location A. IMPRESSION: 1. Cardiomegaly with mild pulmonary edema. 2. Minimal increase in right basilar airspace opacity, consistent with atelecta sis versus pneumonia.
--- NOTE | ~2022-08-25 | XR_ITS ---
EXAMINATION: XR chest 1V portable INDICATION: Pulmonary vascular congestion, pneumonia TECHNIQUE: Portable AP chest at 1727 hours COMPARISON: 08/25/2022 FINDINGS: Cardiomegaly is noted. There is a mild diffuse interstitial pattern with slight improvement , particularly on the right. There are small pleural effusions. No pneumothorax is identified. Right basilar airspace opacities persist but have improved. IMPRESSION: 1. Cardiomegaly with improving pulmonary edema. 2. Small right pleural effusion with improving right basilar airspace opacity, atelectasis versus pne umonia. Reviewed, dictated and finalized at location A. IMPRESSION: 1. Cardiomegaly with improving pulmonary edema. 2. Small right pleural effusion with improving right basilar airspace opacity, atelectasis versus pneumonia.
--- NOTE | 2022-08-25 09:11 | ECG_ITS ---
Measurements Intervals [place] Rate: 86 P: NC: 0 QRS: -20 QRSD: 131 T: 121 QT: 360 QTc: 433 Interpretive Statements SINUS RHYTHM WITH FIRST DEGREE AV BLOCK INTRAVENTRICULAR CONDUCTION DELAY LEFT VENTRICULAR HYPERTROPHY AND ST-T CHANGE BASELINE ARTIFACT- V3, V5 ABNORMAL ECG COMPARED TO ECG 07/21/2022 03:06:02 NO SIGNIFICANT CHANGES Electronically Signed On 08-25-2022 15:29:40 CDT by Kendrick Frances D.O.
--- NOTE | 2022-08-25 09:12 | ED.SOB ---
HPI - SOB/Dyspnea General Chief Complaint: Shortness of Breath/Dyspnea <ANETA Dockery Last Filed: 08/25/22 13:45> Stated Complaint: low O2 <Yamel Gaines PA-C - Last Filed: 08/25/22 13:45> Time Seen by Provider: 08/25/22 09:06 <ANETA Dockery Last Filed: 08/25/22 13:45> History of Present Illness HPI Narrative: 87-year-old female with a history of COPD, end-stage renal disease on hemodialysis Sunday, dementia, baseline ANO x1, here from her nursing facility due to increased shortness of breath, weakness and increased O2 requirement. Patient wears 2 L all-time nasal cannula for her COPD but today she required 6 L to maintain her sats in the 90s. She was also complaining of generalized weakness. Did not take her to dialysis today due to these complaints. <ANETA Dockery Last Filed: 08/25/22 13:45> Related Data Home Medications: Home Medications Medication Instructions Recorded Confirmed atorvastatin 20 mg tablet 20 mg PO HS 06/22/21 08/25/22 clonidine HCl 0.1 mg tablet See Rx Instructions .Route .COMPLEX 06/22/21 08/25/22 ergocalciferol (vitamin D2) 1,250 50,000 unit PO WEEKLY 06/22/21 08/25/22 mcg (50,000 unit) capsule latanoprost 0.005 % eye drops 1 drp EACH EYE HS 06/22/21 08/25/22 spironolactone 25 mg tablet 12.5 mg PO DAILY 06/22/21 08/25/22 acetaminophen 650 mg tablet 650 mg PO Q6H PRN Pain (Scale 07/21/22 08/25/22 Score 1-3) buspirone 7.5 mg tablet 7.5 mg PO BID 07/21/22 08/25/22 omeprazole 20 mg capsule,delayed 20 mg PO DAILY 07/21/22 08/25/22 release clonidine HCl 0.1 mg tablet See Rx Instructions .Route .COMPLEX 08/25/22 08/25/22 <ANETA Dockery Filed: 08/25/22 13:45> Allergies/Adverse Reactions: Allergies Allergy/AdvReac Type Severity Reaction Status Date / Time hydrochlorothiazide Allergy Unknown Verified 07/21/22 11:04 latex Allergy Rash Verified 05/04/22 07:47 PLASTIC TAPE Allergy Unknown Uncoded 07/21/22 11:04 <Yamel Gaines PA-C - Last Filed: 08/25/22 13:45> Review of Systems Review of Systems: Gen.: Reports weakness Eyes: Denies eye pain or visual change ENT: Denies congestion Respiratory: Reports shortness of breath CV: Denies chest pain or palpitations GI: Denies abdominal pain nausea, emesis or diarrhea denies burning, urgency, frequency or hematuria Musculoskeletal: Denies back pain or muscle pain Neuro: Denies numbness, tingling, weakness or focal weakness Skin: Denies rash Except as documented, all other systems reviewed and negative <Yamel Gaines PA-C - Last Filed: 08/25/22 13:45> [facility] Past Medical History Medical History: Medical History Chronic anemia Chronic obstructive pulmonary disease Chronic respiratory failure with hypoxia On 2 to 3 liters nasal cannula. COVID-19 (06/2021) End-stage renal disease on hemodialysis Erythropoietin deficiency anemia Gastroesophageal reflux disease Glaucoma Hyperlipidemia Hypertension Hypothyroidism Insulin dependent type 2 diabetes mellitus Osteoarthritis Renal osteodystrophy Renal osteodystrophy Vitamin D deficiency <Yamel Gaines PA-C - Last Filed: 08/25/22 13:45> Surgical History Surgical History: Surgical History Status post creation of arteriovenous fistula Left upper extremity. <Yamel Gaines PA-C - Last Filed: 08/25/22 13:45> Family History Family History: Family History Other Diabetes mellitus Hypertension <Yamel Gaines PA-C - Last Filed: 08/25/22 13:45> Social History Social History: Social History Social History: Surrogate decision maker: Amy Contreras, son. Code status: Do no
[2022-08-25] MEDS: IPRATROPIUM BR 0.02% INH SOLN 0.5 MG/2.5 ML VIAL INHALATION ×4 (09:22→23:35)
[2022-08-25] MEDS: ALBUTEROL SULFATE NEB 2.5 MG/3 ML INH INHALATION ×4 (09:22→23:35)
[2022-08-25 09:32] LABS: Alveolar/Arterial O2 Gradient 88.9 mmHg; Base Excess ABG 2.2 mEq/l (+/-2.0); Fractional Inspired Oxygen 40 %; HCO3 ABG 33.9 mEq/l (22.0-26.0); Oxyhemoglobin 90.1 % THb (90.0-100.0); PO2 ABG 77.7 mmHg (80.0-100.0); PO2 FiO2 Ratio Arterial Blood 1.94 %; Total Hemoglobin 11.8 g/dL (12.0-18.0)
[2022-08-25 09:34] LABS: Device NASAL CANNULA; Modified Allen's Test Unable to perform; PCO2 ABG 103.1 mmHg (35.0-45.0); Site Drawn RIGHT RADIAL; pH ABG 7.135 (7.350-7.450)
--- NOTE | 2022-08-25 09:52 | PC.NURSE ---
BS 97
[2022-08-25 09:53] LABS: Glucose Point of Care 97 mg/dl (65-105)
[2022-08-25] MEDS: methylPREDNISolone SOD SUCC 125 MG VIAL IV PUSH (10:06)
[2022-08-25 10:12] LABS: SARS-CoV-2 RNA PCR Negative
[2022-08-25 10:32] LABS: Basophils Percent Auto 0.4 % (0.2-1.2); Eosinophils Absolute Auto 0.1 K/mm3 (0-0.3); Hematocrit 40.2 % (37.0-47.0); Hemoglobin 11.3 g/dL (12.0-15.0); Immature Granulocyte Absolute 0.12 K/mm3 (0.00-0.031); Immature Granulocyte Percent A 1.1 % (0-0.5); Lymphocytes Percent Auto 4.5 % (18.3-44.2); Mean Corpuscular HGB Conc 28.1 g/dl (32-36); Mean Corpuscular Hemoglobin 29.7 pg (26-34); Mean Corpuscular Volume 105.8 fl (80-100); Mean Platelet Volume 10.4 fl (7.4-10.4); Monocytes Absolute Auto 1.5 K/mm3 (0.1-0.6); Monocytes Percent Auto 13.6 % (2.6-8.5); Neutrophils Absolute Auto 8.9 K/mm3 (1.3-6.7); Neutrophils Percent Auto 79.4 % (45.5-73.1); Platelet Count Result 299 k/mm3 (150-375); Red Cell Distribution Width 17.1 % (11.5-14.5); White Blood Count 11.1 K/mm3 (4.5-10.0)
--- NOTE | 2022-08-25 10:33 | PCRCNOTE ---
ABG ordered at 1013. ANETA told RT to wait 15 mins before drawing ABG for more accurate results.
[2022-08-25 10:40] LABS: INR 1.2; Prothrombin Time 14.3 Seconds (11.1-14.7)
[2022-08-25 10:42] LABS: Alanine Aminotransferase 17 U/L (6-35); Albumin Level 4.2 g/dL (3.5-5.1); Alkaline Phosphatase 132 U/L (38-126); Anion Gap 11 mmol/L (8-16); Aspartate Amino Transferase 16 U/L (14-36); Bilirubin,Total 0.5 mg/dL (0.2-1.3); Blood Urea Nitrogen 51 mg/dL (7-17); Calcium 8.6 mg/dL (8.4-10.2); Carbon Dioxide 36 mmol/L (22-30); Chloride 91 mmol/L (98-107); Estimated CRCL calculation 6 ml/min; Estimated Glomerular Filt Rate 6; Glucose 107 mg/dL (65-110); Lactic Acid Reflex 0.8 mmol/L (0.7-2.0); Magnesium 2.5 mg/dL (1.6-2.3); Potassium 4.9 mmol/L (3.4-5.0); Sodium 138 mmol/L (137-145)
[2022-08-25 10:48] LABS: Alveolar/Arterial O2 Gradient 436.7 mmHg; Base Excess ABG 5.2 mEq/l (+/-2.0); Fractional Inspired Oxygen 85 %; HCO3 ABG 36.5 mEq/l (22.0-26.0); Oxygen Content ABG 14.6 %vol (16.0-22.0); PO2 ABG 65.3 mmHg (80.0-100.0); PO2 FiO2 Ratio Arterial Blood 0.77 %
[2022-08-25 10:50] LABS: Oxygen Saturation ABG 85.7 % (95.0-100.0); PCO2 ABG 100.3 mmHg (35.0-45.0); pH ABG 7.179 (7.350-7.450)
[2022-08-25 10:51] LABS: Device NON-INVASIVE VENT; Modified Allen's Test Unable to perform; Non-Invasive Expiratory Pressure 5 CMH2O; Non-Invasive Inspiratory Pressure 15 CMH2O; Non-Invasive Vent Rate 20 /MIN; Oxyhemoglobin 86.5 % THb (90.0-100.0); Site Drawn RIGHT RADIAL
[2022-08-25 10:58] LABS: Anisocytosis 1+ (NORMAL); Platelet Estimate Adequate (Adequate)
[2022-08-25 10:59] LABS: Macrocytosis 1+ (NORMAL); Schistocytes None Seen (NORMAL)
[2022-08-25 11:15] LABS: NT Pro B Type Natriuretic Pept 26400 pg/mL (19.9-100); Troponin I 0.039 ng/mL (0.000-0.034)
[2022-08-25] MEDS: SODIUM CHLORIDE 0.9% IV 1,000 ML 999 ML IV CONT (11:59)
--- NOTE | 2022-08-25 13:14 | WPDCNINT ---
Assessment and Plan Assessment and plan (1) Acute respiratory failure with hypoxia and hypercarbia: Code(s): J96.01 - Acute respiratory failure with hypoxia; J96.02 - Acute respiratory failure with hypercapnia Status: Acute Assessment and Plan: Acute respiratory failure likely due to AECOPD, pneumonia, CHF. Patient has a history of moderate pulmonary hypertension -hypercarbic respiratory failure, currently on BiPAP -continue antibiotics, supplemental oxygen, BiPAP -will add Solu-Medrol, patient did get a dose of Solu-Medrol 125 mg IV x1 in the ER -add bronchodilators (2) Pneumonia: Code(s): J18.9 - Pneumonia, unspecified organism Status: Acute Assessment and Plan: Patient has been started on Zosyn, vancomycin and levofloxacin for healthcare acquired pneumonia -blood cultures have been obtained and pending (3) Hypothyroidism: Code(s): E03.9 - Hypothyroidism, unspecified Status: Acute Assessment and Plan: Will switch to IV levothyroxine as patient is NPO (4) Hypertension: Code(s): I10 - Essential (primary) hypertension Status: Chronic Assessment and Plan: P.r.n. hydralazine for now (5) ESRD (end stage renal disease): Code(s): N18.6 - End stage renal disease Status: Chronic Assessment and Plan: End-stage renal disease on dialysis, Sunday, Sunday, Sunday -nephrology has been consulted, dialysis to be done today (6) Diabetes: Code(s): E11.9 - Type 2 diabetes mellitus without complications Status: Chronic Assessment and Plan: Accu-Cheks and sliding scale insulin have been ordered Plan DVT prophylaxis: Heparin SQ Stress ulcer prophylaxis: Protonix Nutrition: NPO for now Code Status: DNR/DNI Critical Care Time Spent: 48 minutes Due to a high probability of clinically significant, life threatening deterioration, the patient required my highest level of preparedness to intervene emergently and I personally spent this critical care time directly and personally managing the patient. This critical care time included obtaining a history; examining the patient; pulse oximetry; ordering and review of studies; arranging urgent treatment with development of a management plan; evaluation of patient's response to treatment; frequent reassessment; and discussions with other providers. It was exclusive of separately billable procedures and treating other patients and teaching time. Please see Assessment and Plan section and the rest of the note for further information on patient assessment and treatment This dictation may have been done utilizing a voice recognition system. Attempts have been made to correct errors. However, there may be uncorrected grammatical, spelling, and recognitions errors present. [employer] Consult Note Consult date: 08/25/22 Reason for consult: Shortness of breath, weakness, increased O2 requirement, pneumonia HPI: Sofía Contreras is a 87 year old female past medical history of COPD, chronic respiratory failure on 2-3 L nasal cannula at the [facility], dementia, gastroesophageal reflux disease, history of COVID-19, hypothyroidism, essential hypertension, osteoarthritis, end-stage renal disease on hemodialysis Sunday, Sunday, Sunday, baseline she is alert and oriented x1. She did not have dialysis today and was brought to the ED due to her symptoms. ER patient's WBC count was 11.1, hemoglobin 11.3, platelets of 299, INR of 1.1. Initial did ABGs was 7.135/103/77/33/90% on 5 L nasal cannula. She was placed on BiPAP on 15/5, rate of 20, 85% O2 and a repeat ABG was 7.17/100/65/36/85%. Sodium 138, potassium 4.9, CO2 36, BUN 51, creatinine 6.70. Troponin 0.039, proBNP 75732. LFTs are within normal limits. SARS-CoV-2 PCR is negative. Discussed with ER PA, and recommended increasing her BiPAP settings to 20/8. Chest x-ray on admission shows cardiomegaly, pulmonary vascular congestion. New dense airs
[2022-08-25 13:22] LABS: Alveolar/Arterial O2 Gradient 334.7 mmHg; Base Excess ABG 5.4 mEq/l (+/-2.0); Fractional Inspired Oxygen 80 %; HCO3 ABG 36.5 mEq/l (22.0-26.0); Methemoglobin ABG 0.4 %THb (0-1.5); Oxygen Content ABG 16.1 %vol (16.0-22.0); Oxygen Saturation ABG 97.7 % (95.0-100.0); Oxyhemoglobin 97.2 % THb (90.0-100.0); PO2 ABG 131.9 mmHg (80.0-100.0); PO2 FiO2 Ratio Arterial Blood 1.65 %; Reduced Hemoglobin 2.4 %THb (0-5.0); Total Hemoglobin 11.6 g/dL (12.0-18.0)
[2022-08-25 13:24] LABS: Device NON-INVASIVE VENT; Modified Allen's Test Unable to perform; PCO2 ABG 98.9 mmHg (35.0-45.0); Site Drawn RIGHT RADIAL; pH ABG 7.185 (7.350-7.450)
[2022-08-25 13:25] LABS: Non-Invasive Expiratory Pressure 8 CMH2O; Non-Invasive Inspiratory Pressure 20 CMH2O; Non-Invasive Vent Rate 24 /MIN
--- NOTE | 2022-08-25 13:25 | ADMGEN ---
This patient, Sofía Contreras, was admitted to Intensive Care Unit-11 at 1315. Patient/family oriented to hospital policies and general routines including ID bracelet, bed and alarms, visiting hours, pain management, procedures, bathroom and other care routines, personal items, smoking policy, room service/diet, and visiting hours. Information on how to activate the Rapid Response Team has been discussed. Patient/Family are encouraged to report perceived risks to care and to ask questions if they do not understand what they are told or what they should do.
--- NOTE | 2022-08-25 13:30 | PM.IMHP ---
H&P: HPI History of Present Illness Date/Time: 08/25/22 13:30 Chief Complaint: Shortness of breath. Narrative: This is a pleasant 87-year-old female with end-stage renal disease on hemodialysis, type 2 diabetes myelitis, chronic respiratory failure on oxygen, chronic obstructive pulmonary disease, pulmonary hypertension, diastolic dysfunction, hypertension chronic anemia, and dementia hypertension who presented to the emergency department for evaluation of shortness of breath. She is currently on BiPAP and is having some difficulties conversing through the mask thus much of the following history is obtained via a review of her EMR and discussions with staff. She has been increasingly short of breath from baseline for the last day or so and also endorses generalized malaise and weakness. She is typically a 2 to 3 L nasal cannula and had a turned up to 6 in order to maintain her SpO2 above 90. She became increasingly short of breath and instead of going to dialysis she came to the ED. ABG on arrival showed a pH of 7.135, pCO2 103.1, PO2 77.7, bicarb 33.9. She was placed on BiPAP with only slight improvement in her pCO2 despite adjustments. Chest x-ray demonstrated cardiomegaly with pulmonary vascular congestion, pulmonary edema, and dense airspace opacities in the right mid and lower lung zone which could be pneumonia, atelectasis, small effusion, or a combination thereof. She has been started on broad-spectrum antibiotics, steroids, and bronchodilators for treatment of pneumonia and COPD. Nephrology has been consulted for dialysis today. She is being monitored closely in the ICU though she maintains DNR/DNI status. Currently she has no complaints aside from a bit of anxiety from the BiPAP. She denies fever, chills, sweats, chest pain, productive cough, nausea, vomiting, and diarrhea. She denies concerns for aspiration though it is noted that a swallow study done earlier this year showed penetration of the vocal cords and thickened liquids were recommended. Review of Systems Review of Systems: Reviewed and are negative. [facility] Past Medical History Medical History (Updated 08/25/22 @ 13:47 by Amanda Osorio PA-C) Chronic anemia Chronic obstructive pulmonary disease Chronic respiratory failure with hypoxia On 2 to 3 liters nasal cannula. COVID-19 (06/2021) Diastolic dysfunction End-stage renal disease on hemodialysis Erythropoietin deficiency anemia Gastroesophageal reflux disease Glaucoma Hyperlipidemia Hypertension Hypothyroidism Osteoarthritis Pulmonary hypertension Renal osteodystrophy Type 2 diabetes mellitus Vitamin D deficiency Surgical History Surgical History Status post creation of arteriovenous fistula Left upper extremity. Family History Family History Other Diabetes mellitus Hypertension Social History Social History Social History: Surrogate decision maker: Amy Contreras, roman. Code status: Do not resuscitate. 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 Spiritual care concerns: No Meds Home Medications and Allergies Home Medications Medication Instructions Recorded Confirmed Type atorvastatin 20 mg tablet
[2022-08-25] MEDS: PIPERACILLIN/TAZ 2.25G/NS 50ML 2.25 GM/50 ML BAG IVPB ×2 (13:50→21:52)
[2022-08-25 14:16] LABS: Hepatitis B Surface Antigen Negative (Negative)
[2022-08-25 14:33] LABS: Hepatitis B Surface Anti Res Negative
--- NOTE | 2022-08-25 17:00 | PM.CNNEP ---
Assessment and Plan Assessment and plan (1) End stage renal disease: Status: Chronic Assessment and Plan: HD today and continue M/W/F dialysis schedule while hospitalized follow electrolytes, volume status, and clearance (2) Acute respiratory failure with hypoxia and hypercarbia: Code(s): J96.01 - Acute respiratory failure with hypoxia; J96.02 - Acute respiratory failure with hypercapnia Status: Acute Assessment and Plan: multifactorial etiology: COPD pneumonia volume overload pulmonary HTN on BiPAP therapy empiric antibiotics, bronchodilators, and steroids dialysis today follow respiratory status (3) Pneumonia: Code(s): J18.9 - Pneumonia, unspecified organism Status: Acute Assessment and Plan: as suggestive by CXR follow culture data on broad spectrum antibiotics follow respiratory statis (4) Hypertension: Status: Chronic Assessment and Plan: reasonable control resume home medications follow trend of hemodynamics (5) Anemia: Code(s): D64.9 - Anemia, unspecified Status: Chronic Assessment and Plan: due to ESRD Epogen with HD follow H/H (6) Diabetes: Status: Chronic Assessment and Plan: follow accuchecks glycemic control per hospitalists Will continue to follow. History of Present Illness Reason for Consult Consult date: 08/27/22 Reason for consult: end stage renal disease Chief Complaint Chief complaint: Respiratory Failure, Pneumonia History of Present Illness Narrative: The patient has 87-year-old female with a past medical history as outlined below who presented to [facility] Emergency room for further evaluation of shortness of breath. Most of the information have obtained is from review of the electronic medical record, my personal experience taking care of the patient, and discussion with physician/ nurses involved in his care as the patient has had some intermittent confusion since presentation to the ER and has BiPAP in place making get a full incomplete history somewhat difficult. Apparently, for the last day or so the patient has been having increasing difficulty breathing /shortness of breath from her baseline. This symptom is associated with generalized malaise and weakness. She normally requires 2-3 L of oxygen by nasal cannula to maintain her oxygen saturations but her nursing facility noted that she required 6 L just to maintain her oxygen saturation greater than 90%. Giving her increasing shortness of breath, she was transferred to the ER for further assessment. Workup and evaluation emergency room demonstrated the patient to be hemodynamically stable but her respiratory status was quite tenuous. Her initial ABG showed a pH of 7.135, pCO2 of 103, and a PC O2 of 77. her chest x-ray showed cardiomegaly with pulmonary vascular congestion, pulmonary edema, and dense airspace opacities in the right mid and lower lung zone which could be pneumonia, atelectasis, pleural effusion, or a combination thereof. Routine blood test demonstrated labs consistent with her known history of end-stage renal disease without any critical electrolyte abnormalities. She was started on BiPAP therapy in the emergency room with some improvement in both her respiratory status as well as her mentation. After appropriate cultures were obtained, she was started on broad-spectrum IV antibiotic therapy and subsequently admitted to the ICU for further evaluation and therapy. Renal consultation was requested due to her end-stage renal disease. The patient normally does dialysis on a Sunday, Sunday, and Sunday dialysis schedule under the care of Dr. Hayden Waite at [facility]. She received her scheduled dialysis treatment on Sunday (08/23/22) at her outpatient dialysis unit without any issues. The patient is somewhat familiar to me as I have taking care of her before o
[2022-08-25] MEDS: methylPREDNISolone SOD SUCC 40 MG VIAL IV PUSH ×2 (17:20→23:10)
[2022-08-25 17:37] LABS: Glucose Point of Care 126 mg/dl (65-105)
[2022-08-25 18:10] LABS: Alveolar/Arterial O2 Gradient 199.1 mmHg; Base Excess ABG -0.5 mEq/l (+/-2.0); Fractional Inspired Oxygen 50 %; HCO3 ABG 28.7 mEq/l (22.0-26.0); Oxygen Content ABG 17.5 %vol (16.0-22.0); Oxygen Saturation ABG 93.2 % (95.0-100.0); Oxyhemoglobin 92.8 % THb (90.0-100.0); PO2 ABG 79.6 mmHg (80.0-100.0); PO2 FiO2 Ratio Arterial Blood 1.59 %; Total Hemoglobin 13.4 g/dL (12.0-18.0)
[2022-08-25 18:12] LABS: pH ABG 7.235 (7.350-7.450)
[2022-08-25 18:13] LABS: Device NON-INVASIVE VENT; Modified Allen's Test Pass; Non-Invasive Expiratory Pressure 8 CMH2O; Non-Invasive Inspiratory Pressure 20 CMH2O; Non-Invasive Vent Rate 14 /MIN; PCO2 ABG 69.2 mmHg (35.0-45.0); Site Drawn RIGHT RADIAL
--- NOTE | 2022-08-25 19:07 | PM.CNPUL ---
Assessment and Plan Assessment and plan (1) Pneumonia: Code(s): J18.9 - Pneumonia, unspecified organism Status: Acute Assessment and Plan: Hypercarbic respiratory failure and hypoxemic respiratory failure have improved and the patient is currently on lower O2. Continue vanc, Zosyn and Levaquin started Aug 25. She will need follow-up chest x-ray in 6 to 8 weeks to reassess infiltrates. (2) COPD (chronic obstructive pulmonary disease): Code(s): J44.9 - Chronic obstructive pulmonary disease, unspecified Status: Acute Assessment and Plan: Patient carries a diagnosis of COPD, she is a former smoker for 34 pack years, no prior PFTs to review, will need follow up after discharge. Requires 2-3 L at home. She presented 08/25 with scant expiratory wheezes? in the emergency room but on the admission H&P stated she had faint crackles and no wheezes were listed. Acute on chronic hypercarbic and hypoxemic respiratory failure.? She required BiPAP and was treated for COPD exacerbation with steroids, bronchodilators and antibiotics. ? Today ABG improved. pH of 7.36/45/75? on 45 L high flow and 35% FiO2. (3) End stage renal disease: Code(s): N18.6 - End stage renal disease Status: Chronic Assessment and Plan: History of Present Illness History of Present Illness Consult date: 09/21/22 Requesting physician: Julián Cabrera MD Chief complaint: Respiratory Failure, Pneumonia Narrative: Patient was seen Aug 27, 2022 at 14:18 in ICU 9 NEW: Sofía Contreras is an 87-year-old woman with acute respiratory failure and pneumonia, had increased interstitial markings on CXR . She has ESRD on HD on . Requires 2-3 L at home.She was recently hospitalized and received ceftriaxone for right lower extremity cellulitis. She presented 08/25 with scant expiratory wheezes? in the emergency room but on the admission H&P stated she had faint crackles and no wheezes were listed. So far, blood cultures are negative, sputum is growth of normal valeria.? COVID PCR negative on 08/25/2022.? Mycoplasma IgM pending.? Right lung infiltrate has improved since admission. ? Acute on chronic hypercarbic and hypoxemic respiratory failure.? She required BiPAP and was treated for COPD exacerbation with steroids, bronchodilators and antibiotics. ? Last blood gas on today 08/27/2022 was a pH of 7.36/45/75? on 45 L high flow and 35% FiO2. This is improved wth use of BiPAP to increased minute ventilation. DATA * ABG * 08/27/2022 CXR : . Cardiomegaly with mild pulmonary edema. 2. Minimal increase in right basilar airspace opacity, consistent with atelectasis versus pneumonia. August 27 CXR * 08/26/2022 CXR: Cardiomegaly with improving pulmonary edema. 2. Small right pleural effusion with improving right basilar airspace opacity, atelectasis versus pneumonia. August 26 CXR Review of Systems Review of Systems: She is hard of hearing. Does not have hearing aids. She uses O2 at home, uses inhalers. All systems reviewed & are unremarkable except as noted in HPI and below PMFSH Past Medical History Medical History (Updated 08/31/22 @ 13:07 by Eloy Dangelo MD) Chronic anemia Chronic obstructive pulmonary disease Chronic respiratory failure with hypoxia On 2 to 3 liters nasal cannula. COVID-19 (06/2021) Diastolic dysfunction End-stage renal disease on hemodialysis Erythropoietin deficiency anemia Gastroesophageal reflux disease Glaucoma Hyperlipidemia Hypertension Hypothyroidism Osteoarthritis Pulmonary hypertension Renal osteodystrophy Type 2 diabetes mellit
[2022-08-25] MEDS: LATANOPROST 0.005% OP SOLN 2.5 ML BTL 1 DROP EACH EYE (21:52)
[2022-08-25] MEDS: HEPARIN SODIUM 5,000 UNITS/ML VIAL 5000 UNITS SUB-Q (21:53)
[2022-08-25 22:14] LABS: Vancomycin Random 11.4 ug/mL (10-20)
[2022-08-25 23:17] LABS: Glucose Point of Care 180 mg/dl (65-105)
[2022-08-26] VITALS (25 sets, daily range): BP systolic 130–170; BP diastolic 45–66; PULSE 78–99; RESP 20–28; TEMP 37.1–37.8; O2SAT 92–99
[2022-08-26] MEDS: IPRATROPIUM BR 0.02% INH SOLN 0.5 MG/2.5 ML VIAL INHALATION ×5 (04:04→18:28)
[2022-08-26] MEDS: ALBUTEROL SULFATE NEB 2.5 MG/3 ML INH INHALATION ×6 (04:05→20:03)
[2022-08-26 04:24] LABS: Alveolar/Arterial O2 Gradient 196.7 mmHg; Base Excess ABG 2.1 mEq/l (+/-2.0); Carboxyhemoglobin 0.1 % THb (0-2.0); Fractional Inspired Oxygen 50 %; HCO3 ABG 29.4 mEq/l (22.0-26.0); Methemoglobin ABG 0.6 %THb (0-1.5); Oxygen Content ABG 17.2 %vol (16.0-22.0); Oxygen Saturation ABG 96.6 % (95.0-100.0); PCO2 ABG 57.9 mmHg (35.0-45.0); PO2 ABG 94.7 mmHg (80.0-100.0); PO2 FiO2 Ratio Arterial Blood 1.89 %; Reduced Hemoglobin 3.3 %THb (0-5.0); Total Hemoglobin 12.7 g/dL (12.0-18.0); pH ABG 7.323 (7.350-7.450)
[2022-08-26 04:25] LABS: Device NON-INVASIVE VENT; Modified Allen's Test Pass; Site Drawn LEFT RADIAL
[2022-08-26 04:26] LABS: Non-Invasive Expiratory Pressure 8 CMH2O; Non-Invasive Inspiratory Pressure 20 CMH2O; Non-Invasive Vent Rate 14 /MIN
[2022-08-26 04:44] LABS: Basophils Percent Auto 0.1 % (0.2-1.2); Hematocrit 35.9 % (37.0-47.0); Hemoglobin 10.5 g/dL (12.0-15.0); Immature Granulocyte Absolute 0.05 K/mm3 (0.00-0.031); Immature Granulocyte Percent A 0.7 % (0-0.5); Lymphocytes Absolute Auto 0.14 K/mm3 (0.9-3.2); Lymphocytes Percent Auto 1.9 % (18.3-44.2); Mean Corpuscular HGB Conc 29.2 g/dl (32-36); Mean Corpuscular Hemoglobin 29.7 pg (26-34); Mean Corpuscular Volume 101.7 fl (80-100); Mean Platelet Volume 10.4 fl (7.4-10.4); Monocytes Absolute Auto 0.3 K/mm3 (0.1-0.6); Monocytes Percent Auto 3.7 % (2.6-8.5); Neutrophils Percent Auto 93.6 % (45.5-73.1); Platelet Count Result 285 k/mm3 (150-375); Red Blood Count 3.53 M/mm3 (4.2-5.4); White Blood Count 7.5 K/mm3 (4.5-10.0)
[2022-08-26 05:04] LABS: Lactic Acid Reflex 1.6 mmol/L (0.7-2.0)
[2022-08-26 05:07] LABS: Hypochromasia 1+ (NORMAL); Platelet Estimate Adequate (Adequate)
[2022-08-26 05:08] LABS: Macrocytosis 1+ (NORMAL)
[2022-08-26 05:10] LABS: Alanine Aminotransferase 13 U/L (6-35); Albumin Level 3.8 g/dL (3.5-5.1); Alkaline Phosphatase 109 U/L (38-126); Anion Gap 7 mmol/L (8-16); Aspartate Amino Transferase 16 U/L (14-36); Bilirubin,Total 0.5 mg/dL (0.2-1.3); Blood Urea Nitrogen 26 mg/dL (7-17); Calcium 9.3 mg/dL (8.4-10.2); Carbon Dioxide 31 mmol/L (22-30); Chloride 101 mmol/L (98-107); Estimated CRCL calculation 10 ml/min; Estimated Glomerular Filt Rate 13; Glucose 143 mg/dL (65-110); Magnesium 2.2 mg/dL (1.6-2.3); Phosphorus 3.6 mg/dL (2.5-4.5); Potassium 4.4 mmol/L (3.4-5.0); Sodium 139 mmol/L (137-145)
[2022-08-26 05:21] LABS: Schistocytes None Seen (NORMAL)
[2022-08-26 05:43] LABS: CRP 33.1 mg/dL (<1.0)
[2022-08-26] MEDS: PIPERACILLIN/TAZ 2.25G/NS 50ML 2.25 GM/50 ML BAG IVPB ×3 (06:24→22:03)
[2022-08-26] MEDS: methylPREDNISolone SOD SUCC 40 MG VIAL IV PUSH ×3 (06:25→17:49)
[2022-08-26] MEDS: LEVOTHYROXINE SODIUM INJ 100 MCG/5 ML VIAL 50 MCG IV PUSH (06:25)
[2022-08-26] MEDS: HEPARIN SODIUM 5,000 UNITS/ML VIAL 5000 UNITS SUB-Q ×2 (08:54→20:23)
[2022-08-26] MEDS: PANTOPRAZOLE SODIUM IV 40 MG VIAL IV PUSH (08:55)
[2022-08-26 11:46] LABS: Glucose Point of Care 144 mg/dl (65-105)
--- NOTE | 2022-08-26 13:16 | PM.PNNEP ---
Progress Note: A&P Assessment and Plan (1) End stage renal disease: Code(s): N18.6 - End stage renal disease Status: Chronic Assessment and Plan: plan next HD on Sunday continue M/W/ dialysis schedule while hospitalized follow electrolytes, volume status, and clearance (2) Acute respiratory failure with hypoxia and hypercarbia: Code(s): J96.01 - Acute respiratory failure with hypoxia; J96.02 - Acute respiratory failure with hypercapnia Status: Acute Assessment and Plan: multifactorial etiology: COPD pneumonia volume overload pulmonary HTN BiPAP therapy as needed; continue supplemental oxygen with weaning as tolerated empiric antibiotics, bronchodilators, and steroids fluid removal with dialysis as tolerated follow respiratory status (3) Pneumonia: Code(s): J18.9 - Pneumonia, unspecified organism Status: Acute Assessment and Plan: as suggestive by CXR follow culture data on broad spectrum antibiotics continue supportive therapy (4) Hypertension: Code(s): I10 - Essential (primary) hypertension Status: Chronic Assessment and Plan: reasonable control continue home medications follow trend of hemodynamics (5) Anemia: Code(s): D64.9 - Anemia, unspecified Status: Chronic Assessment and Plan: due to ESRD Epogen with HD follow H/H (6) Diabetes: Code(s): E11.9 - Type 2 diabetes mellitus without complications Status: Chronic Assessment and Plan: follow accuchecks glycemic control per hospitalists Will continue to follow. Subjective Date/time seen: 08/26/22 13:16 Tolerated dialysis yesterday afternoon without any issues or problems; respiratory status seems better as noted by ABG earlier today; off BiPAP and on high flow oxygen; stable hemodynamics noted; mentation seems improved as well. Exam Narrative: General: elderly chronically ill-appearing female in NAD Heart: normal S1 and S2; no rub Lungs: coarse breath sounds throughout Abdomen: soft, nontender, nondistended, positive bowel sounds Extremities: no cyanosis or clubbing; no edema Skin: warm and dry Objective Data Vital Signs Vital Signs: Vital Signs Temp Pulse Resp BP Pulse Ox O2 Del Method O2 Flow Rate 08/26/22 12:55 88 22 H 96 High Flow Therapy with Na 45 08/26/22 11:52 100.0 F H 89 20 146/45 H 94 08/26/22 11:52 85 08/26/22 11:02 92 22 H 93 High Flow Therapy with Na 45 08/26/22 11:02 91 22 H 08/26/22 10:00 100.0 F H 130/51 L 92 08/26/22 08:45 95 24 H 92 High Flow Therapy with Na 45 08/26/22 08:35 86 21 H 08/26/22 08:20 88 21 H 99 BiPAP 08/26/22 08:00 100.0 F H 85 20 166/59 H 98 08/26/22 08:00 84 08/26/22 06:00 99.9 F H 86 23 H 145/58 H 98 08/26/22 06:00 86 08/26/22 04:00 99.8 F H 89 20 133/66 98 08/26/22 04:00 89 08/26/22 04:00 BiPAP 08/26/22 02:00 100 F H 89 23 H 142/50 H 98 08/26/22 02:00 89 08/25/22 23:50 92 20 08/26/22 04:15 94 21 H 99 BiPAP 08/26/22 04:15 94 21 H 08/26/22 00:00 80 08/26/22 00:00 99.8 F H 90 24 H 146/53 H 98 08/26/22 00:00 BiPAP 08/25/22 20:23 94 28 H 98 BiPAP 08/25/22 20:38 99 28 H 08/25/22 23:39 94 20 98 BiPAP 08/25/22 20:25 98 28 H 08/25/22 23:37 91 20 08/25/22 22:20 83 L High Flow Therapy with Na 4 08/25/22 22:00 99.5 F 88 24 H 134/70 96 08/25/22 22:00 88 08/25/22 20:26 99.1 F 104 H 22 H 146/84 H 96 08/25/22 20:21 98 140/50 L 08/25/22 20:15 89 147/92 H 08/25/22 20:00 99.0 F 86 26 H 129/41 L 92 08/25/22 20:00 BiPAP 08/25/22 20:00 81 08/25/22 20:00 85 129/41 L 08/25/22 19:45 83 128/53 L 08/25/22 19:30 83 121/40 L 03/24/23 19:1
--- NOTE | 2022-08-26 13:16 | P.PNNP_ITS ---
Progress Note: A&P Assessment and Plan (1) End stage renal disease: Code(s): N18.6 - End stage renal disease Status: Chronic Assessment and Plan: * plan next HD on Sunday * continue M/W/ dialysis schedule while hospitalized * follow electrolytes, volume status, and clearance (2) Acute respiratory failure with hypoxia and hypercarbia: Code(s): J96.01 - Acute respiratory failure with hypoxia; J96.02 - Acute respiratory failure with hypercapnia Status: Acute Assessment and Plan: * multifactorial etiology: * COPD * pneumonia * volume overload * pulmonary HTN * BiPAP therapy as needed; continue supplemental oxygen with weaning as tolerated * empiric antibiotics, bronchodilators, and steroids * fluid removal with dialysis as tolerated * follow respiratory status (3) Pneumonia: Code(s): J18.9 - Pneumonia, unspecified organism Status: Acute Assessment and Plan: * as suggestive by CXR * follow culture data * on broad spectrum antibiotics * continue supportive therapy (4) Hypertension: Code(s): I10 - Essential (primary) hypertension Status: Chronic Assessment and Plan: * reasonable control * continue home medications * follow trend of hemodynamics (5) Anemia: Code(s): D64.9 - Anemia, unspecified Status: Chronic Assessment and Plan: * due to ESRD * Epogen with HD * follow H/H (6) Diabetes: Code(s): E11.9 - Type 2 diabetes mellitus without complications Status: Chronic Assessment and Plan: * follow accuchecks * glycemic control per hospitalists Will continue to follow. Subjective Date/time seen: 08/26/22 13:16 Tolerated dialysis yesterday afternoon without any issues or problems; respiratory status seems better as noted by ABG earlier today; off BiPAP and on high flow oxygen; stable hemodynamics noted; mentation seems improved as well. Exam Narrative: General: elderly chronically ill-appearing female in NAD Heart: normal S1 and S2; no rub Lungs: coarse breath sounds throughout Abdomen: soft, nontender, nondistended, positive bowel sounds Extremities: no cyanosis or clubbing; no edema Skin: warm and dry Objective Data Vital Signs Vital Signs: Vital Signs Temp Pulse Resp BP Pulse Ox O2 Del Method O2 Flow Rate 08/26/22 12:55 88 22 H 96 High Flow Therapy with Na 45 08/26/22 11:52 100.0 F H 89 20 146/45 H 94 08/26/22 11:52 85 08/26/22 11:02 92 22 H 93 High Flow Therapy with Na 45 08/26/22 11:02 91 22 H 08/26/22 10:00 100.0 F H 130/51 L 92 08/26/22 08:45 95 24 H 92 High Flow Therapy with Na 45 08/26/22 08:35 86 21 H 08/26/22 08:20 88 21 H 99 BiPAP 08/26/22 08:00 100.0 F H 85 20 166/59 H 98 08/26/22 08:00 84 08/26/22 06:00 99.9 F H 86 23 H 145/58 H 98 08/26/22 06:00 86 08/26/22 04:00 99.8 F H 89 20 133/66 98 08/26/22 04:00 89 08/26/22 04:00 BiPAP 08/26/22 02:00 100 F H 89 23 H 142/50 H 98 08/26/22 02:00 89 08/25/22 23:50 92 20 08/26/22 04:15 94 21 H 99 BiPAP 08/26/22 04:15 94 21 H 08/26/22 00:00 80
--- NOTE | 2022-08-26 13:35 | WPDINTPN ---
Progress Note: A&P Assessment and Plan (1) Acute respiratory failure with hypoxia and hypercarbia: Code(s): J96.01 - Acute respiratory failure with hypoxia; J96.02 - Acute respiratory failure with hypercapnia Status: Acute Assessment and Plan: Acute respiratory failure likely due to AECOPD, pneumonia, CHF. Patient has a history of moderate pulmonary hypertension -hypercarbic respiratory failure, currently on BiPAP -continue antibiotics, supplemental oxygen, -will switch to Vapotherm, ABGs much improved -Continue folic Medrol as patient was wheezing -continue bronchodilators -chest x-ray this morning: Cardiomegaly with improving pulmonary edema.. Small right pleural effusion with improving right basilar airspace opacity, atelectasis versus pneumonia. (2) Pneumonia: Code(s): J18.9 - Pneumonia, unspecified organism Status: Acute Assessment and Plan: Patient has been started on Zosyn, vancomycin and levofloxacin for healthcare acquired pneumonia -08/25/2022: Preliminary blood cultures are negative -08/25/2022: Sputum cultures a negative so far (3) Hypothyroidism: Code(s): E03.9 - Hypothyroidism, unspecified Status: Acute Assessment and Plan: Continue IV IV levothyroxine (4) Hypertension: Code(s): I10 - Essential (primary) hypertension Status: Chronic Assessment and Plan: P.r.n. hydralazine for now (5) ESRD (end stage renal disease): Code(s): N18.6 - End stage renal disease Status: Chronic Assessment and Plan: End-stage renal disease on dialysis, Sunday, Sunday, Sunday -nephrology has been consulted, -08/25/2022 dialysis with removal with 2600 mL in fluid removal, improvement in chest x-ray -dialysis per Nephrology (6) Diabetes: Code(s): E11.9 - Type 2 diabetes mellitus without complications Status: Chronic Assessment and Plan: Accu-Cheks and sliding scale insulin have been ordered Plan DVT prophylaxis: Heparin SQ Stress ulcer prophylaxis: Protonix Nutrition: Renal diet with thickened liquids Code Status: DNR/DNI Critical Care Time Spent: 33 minutes Due to a high probability of clinically significant, life threatening deterioration, the patient required my highest level of preparedness to intervene emergently and I personally spent this critical care time directly and personally managing the patient. This critical care time included obtaining a history; examining the patient; pulse oximetry; ordering and review of studies; arranging urgent treatment with development of a management plan; evaluation of patient's response to treatment; frequent reassessment; and discussions with other providers. It was exclusive of separately billable procedures and treating other patients and teaching time. Please see Assessment and Plan section and the rest of the note for further information on patient assessment and treatment This dictation may have been done utilizing a voice recognition system. Attempts have been made to correct errors. However, there may be uncorrected grammatical, spelling, and recognitions errors present. Subjective Date/time seen: 08/26/22 13:35 Interval history: Reason for consult: Shortness of breath, weakness, increased O2 requirement, pneumonia, acute exacerbation of COPD, hypercapnic respiratory failure requiring BiPAP 08/26/2022: Patient seen and examined the ICU, remains on BiPAP, more awake, answers to questions and follows simple commands. Patient is afebrile, hemodynamically stable. Had dialysis done on 08/25 with 2600 mL in fluid removal. ABGs much improved this morning, white blood cell count has normalized. Patient denies any chest pain, shortness of breath, abdominal pain, nausea, vomiting at this time Review of Systems Review of Systems: All systems reviewed & are unremarkable except as noted in HPI and below Exam Narrative: General: Elderly female in no acute distress HE
[2022-08-26 18:05] LABS: Glucose Point of Care 118 mg/dl (65-105)
[2022-08-26] MEDS: LATANOPROST 0.005% OP SOLN 2.5 ML BTL 1 DROP EACH EYE (20:22)
[2022-08-26] MEDS: BENZONATATE 100 MG CAPSULE 200 MG PO (20:25)
[2022-08-26 21:40] LABS: Hemoglobin A1C 4.7 % (<5.7)
[2022-08-26] MEDS: hydrALAZINE HCL 20 MG/ML VIAL 10 MG IV PUSH (22:04)
[2022-08-27] VITALS (111 sets, daily range): BP systolic 118–170; BP diastolic 43–136; PULSE 76–114; RESP 13–39; TEMP 36.7–37.3; O2SAT 87–100
[2022-08-27] MEDS: ALBUTEROL SULFATE NEB 2.5 MG/3 ML INH INHALATION ×6 (00:37→20:07)
[2022-08-27] MEDS: IPRATROPIUM BR 0.02% INH SOLN 0.5 MG/2.5 ML VIAL INHALATION ×6 (00:37→20:07)
[2022-08-27 01:55] LABS: Glucose Point of Care 146 mg/dl (65-105)
[2022-08-27] MEDS: methylPREDNISolone SOD SUCC 40 MG VIAL IV PUSH ×4 (02:25→17:00)
[2022-08-27 04:26] LABS: Basophils Percent Auto 0.2 % (0.2-1.2); Hematocrit 35.2 % (37.0-47.0); Hemoglobin 10.7 g/dL (12.0-15.0); Immature Granulocyte Absolute 0.11 K/mm3 (0.00-0.031); Immature Granulocyte Percent A 0.9 % (0-0.5); Lymphocytes Absolute Auto 0.31 K/mm3 (0.9-3.2); Lymphocytes Percent Auto 2.6 % (18.3-44.2); Mean Corpuscular HGB Conc 30.4 g/dl (32-36); Mean Corpuscular Volume 98.6 fl (80-100); Mean Platelet Volume 10.3 fl (7.4-10.4); Monocytes Absolute Auto 0.5 K/mm3 (0.1-0.6); Monocytes Percent Auto 3.9 % (2.6-8.5); Neutrophils Absolute Auto 11.2 K/mm3 (1.3-6.7); Neutrophils Percent Auto 92.4 % (45.5-73.1); Platelet Count Result 321 k/mm3 (150-375); Red Blood Count 3.57 M/mm3 (4.2-5.4); Red Cell Distribution Width 17.5 % (11.5-14.5); White Blood Count 12.1 K/mm3 (4.5-10.0)
[2022-08-27 05:23] LABS: Alanine Aminotransferase 14 U/L (6-35); Albumin Level 3.6 g/dL (3.5-5.1); Alkaline Phosphatase 100 U/L (38-126); Anion Gap 9 mmol/L (8-16); Aspartate Amino Transferase 22 U/L (14-36); Bilirubin,Total 0.5 mg/dL (0.2-1.3); Blood Urea Nitrogen 64 mg/dL (7-17); Calcium 9.2 mg/dL (8.4-10.2); Carbon Dioxide 26 mmol/L (22-30); Chloride 100 mmol/L (98-107); Estimated CRCL calculation 8 ml/min; Estimated Glomerular Filt Rate 8; Glucose 140 mg/dL (65-110); Magnesium 2.4 mg/dL (1.6-2.3); Phosphorus 3.9 mg/dL (2.5-4.5); Potassium 4.6 mmol/L (3.4-5.0); Sodium 135 mmol/L (137-145)
[2022-08-27 05:27] LABS: Alveolar/Arterial O2 Gradient 122.6 mmHg; Base Excess ABG -0.5 mEq/l (+/-2.0); Carboxyhemoglobin 0.3 % THb (0-2.0); Fractional Inspired Oxygen 35 %; HCO3 ABG 25.1 mEq/l (22.0-26.0); Methemoglobin ABG 0.4 %THb (0-1.5); Oxygen Content ABG 15.3 %vol (16.0-22.0); Oxygen Saturation ABG 94.5 % (95.0-100.0); Oxyhemoglobin 92.9 % THb (90.0-100.0); PCO2 ABG 45.1 mmHg (35.0-45.0); PO2 ABG 74.5 mmHg (80.0-100.0); PO2 FiO2 Ratio Arterial Blood 2.13 %; Reduced Hemoglobin 6.4 %THb (0-5.0); Site Drawn RIGHT RADIAL; Total Hemoglobin 11.7 g/dL (12.0-18.0); pH ABG 7.364 (7.350-7.450)
[2022-08-27 05:28] LABS: Device HIGH HUMIDITY; Modified Allen's Test Pass
[2022-08-27 05:34] LABS: CRP 17.5 mg/dL (<1.0)
[2022-08-27] MEDS: PIPERACILLIN/TAZ 2.25G/NS 50ML 2.25 GM/50 ML BAG IVPB ×3 (06:30→21:04)
[2022-08-27 06:36] LABS: Glucose Point of Care 150 mg/dl (65-105)
[2022-08-27 07:16] LABS: Appearance Urine Turbid (Clear); Bacteria Urine 4+ /hpf; Bilirubin Urine 1+ (Negative); Blood Urine 3+ (Negative); Budding Yeast Urine Present /hpf; Color Urine Dark Yellow (Yellow); Glucose Urine UA Negative (Negative); Ketones Urine Trace mg/dL (Negative); Leukocyte Esterase Ur 3+ LEU/UL (Negative); Nitrate Urine Negative (Negative); Non Pathogenic Casts >20; Protein Urine 4+ mg/dL (Negative); RBC Urine >100 /hpf (0-2); Specific Grav Ur 1.026 (1.001-1.035); Squamous Epithelial Cell Urine Many /hpf (Few); Transitional Epi Cells Urine Present /hpf (None Seen); WBC Clumps Urine Present /HPF; WBC Urine >100 /hpf
[2022-08-27 07:27] LABS: Add Urine Microscopic? YES
[2022-08-27] MEDS: LEVOTHYROXINE SODIUM INJ 100 MCG/5 ML VIAL 50 MCG IV PUSH (07:28)
--- NOTE | 2022-08-27 07:41 | PM.IMPN ---
Progress Note: A&P Assessment and Plan (1) Acute respiratory failure with hypoxia and hypercarbia: Code(s): J96.01 - Acute respiratory failure with hypoxia; J96.02 - Acute respiratory failure with hypercapnia Status: Acute Assessment and Plan: Acute respiratory failure likely due to COPD, pneumonia, CHF. Patient has a history of moderate pulmonary hypertension Weaned to 12 L high-flow, improving, continue nebulizers and antibiotics Recheck chest x-ray and ABG tomorrow (2) Pneumonia: Code(s): J18.9 - Pneumonia, unspecified organism Status: Acute Assessment and Plan: Patient has been started on Zosyn, vancomycin and levofloxacin for healthcare acquired pneumonia Blood and sputum cultures from 08/25 NGTD (3) Hypothyroidism: Code(s): E03.9 - Hypothyroidism, unspecified Status: Acute Assessment and Plan: Taking p.o., transition levothyroxine to oral dosing, DC IV dose (4) Hypertension: Code(s): I10 - Essential (primary) hypertension Status: Chronic Assessment and Plan: Restart home antihypertensives, monitor (5) ESRD (end stage renal disease): Code(s): N18.6 - End stage renal disease Status: Chronic Assessment and Plan: End-stage renal disease on dialysis, Sunday, Sunday, Sunday, appreciate nephrology consultation (6) Diabetes: Code(s): E11.9 - Type 2 diabetes mellitus without complications Status: Chronic Assessment and Plan: Accu-Cheks and sliding scale insulin have been ordered, A1c is 4.7, discontinue Accu-Cheks Plan DVT prophylaxis: Heparin SQ Stress ulcer prophylaxis: Protonix Nutrition: Renal diet with thickened liquids Code status DNR Subjective Date/time seen: 08/27/22 07:41 Interval history: 87 y/o F with PMH significant for ESRD p/w shortness of breath, weakness, increased O2 requirement, pneumonia, acute exacerbation of COPD, hypercapnic respiratory failure requiring BiPAP, now weaned to hi-bree. 08/27: Patient weaned to 12 L high-flow, satting 95% on this. She states she feels much better than yesterday. Good po intake. Review of Systems Review of Systems: 12 point review of systems was assessed and was negative except as noted in the HPI Exam Narrative: General: Elderly female in no acute distress HEENT:? Pupils are reactive, sclera is clear, on hi bree Respiratory:? Coarse breath sounds bilaterally R > L, rales on the right side, decreased air entry at bases bilaterally Cardiac:? S1-S2 is normal, regular rate and rhythm Abdomen:? Soft, nontender, nondistended, + BS Extremities:? No edema, normal to inspection Neuro:? Patient is awake, alert, oriented to her name and place. Follows simple commands in all extremities Psych:? Withdrawn affect, irritable Objective Data Vital Signs Vital Signs: Vital Signs - 24 hr 08/26/22 08:00 08/26/22 08:00 08/26/22 08:20 Temperature 100.0 F H Pulse Rate 84 85 88 Respiratory Rate 20 21 H Blood Pressure 166/59 H Pulse Oximetry 98 99 Oxygen Delivery BiPAP Oxygen Flow Rate Fraction of Inspired Oxygen 08/26/22 08:35 08/26/22 08:45 08/26/22 10:00 Temperature 100.0 F H Pulse Rate 86 95 Respiratory Rate 21 H 24 H Blood Pressure 130/51 L Pulse Oximetry 92 92 Oxygen Delivery High Flow Therapy with Na Oxygen Flow Rate 45 Fraction of Inspired Oxygen 40 08/26/22 11:02 08/26/22 11:02 08/26/22 11:52 Temperature Pulse Rate 91 92 85 Respiratory Rate 22 H 22 H Blood Pressure Pulse Oximetry 93 Oxygen Delivery High Flow Therapy with Na Oxygen Flow Rate 45 Fraction of Inspired Oxygen 40 08/26/22 11:52 08/26/22 14:55 08/26/22 14:00 Temperature 100.0 F H Pulse Rate 89 88 88 Respiratory Rate 20 22 H Blood Pressure 146/45 H Pulse Oximetry 94 96 Oxygen Delivery High Flow Therapy with Na Oxygen Flow Rate 45 Fraction of Inspired Oxygen 35 08/26/22
[2022-08-27] MEDS: levoFLOXacin 500 MG/D5W 100 ML 500 MG/100 ML BAG 66.67 MG IVPB (09:28)
[2022-08-27] MEDS: HEPARIN SODIUM 5,000 UNITS/ML VIAL 5000 UNITS SUB-Q ×2 (09:29→20:49)
[2022-08-27] MEDS: PANTOPRAZOLE SODIUM IV 40 MG VIAL IV PUSH (09:30)
[2022-08-27] MEDS: BENZONATATE 100 MG CAPSULE 200 MG PO ×3 (09:38→17:04)
--- NOTE | 2022-08-27 11:15 | P.PNNP_ITS ---
Progress Note: A&P Assessment and Plan (1) End stage renal disease: Code(s): N18.6 - End stage renal disease Status: Chronic Assessment and Plan: * plan next HD tomorrow * continue M/W/F dialysis schedule while hospitalized * follow electrolytes, volume status, and clearance (2) Acute respiratory failure with hypoxia and hypercarbia: Code(s): J96.01 - Acute respiratory failure with hypoxia; J96.02 - Acute respiratory failure with hypercapnia Status: Acute Assessment and Plan: * multifactorial etiology: * COPD * pneumonia * volume overload * pulmonary HTN * on BiPAP therapy PRN * empiric antibiotics, bronchodilators, and steroids * fluid removal with dialysis * wean supplemental oxygen as tolerated * follow respiratory status (3) Pneumonia: Code(s): J18.9 - Pneumonia, unspecified organism Status: Acute Assessment and Plan: * as suggestive by CXR * follow culture data * on broad spectrum antibiotics * continue supportive therapy (4) Hypertension: Code(s): I10 - Essential (primary) hypertension Status: Chronic Assessment and Plan: * reasonable control * continue home medications * follow trend of hemodynamics (5) Anemia: Code(s): D64.9 - Anemia, unspecified Status: Chronic Assessment and Plan: * due to ESRD * Epogen with HD * follow H/H (6) Diabetes: Code(s): E11.9 - Type 2 diabetes mellitus without complications Status: Chronic Assessment and Plan: * follow accuchecks * glycemic control per hospitalists Will continue to follow. Subjective Date/time seen: 08/27/22 11:15 Overall, she states that she is feeling much better in comparison to her status on presentation to the ER; good oral intake and remains hemodynamically stable; no issues/events overnight or earlier this morning; no acute distress voiced at the time of my visit. Exam Narrative: General: elderly chronically ill-appearing female in NAD Heart: normal S1 and S2; no rub Lungs: coarse breath sounds throughout Abdomen: soft, nontender, nondistended, positive bowel sounds Extremities: no cyanosis or clubbing; no edema Skin: warm and intact Objective Data Vital Signs Vital Signs: Vital Signs Temp Pulse Resp BP Pulse Ox O2 Del Method O2 Flow Rate 08/27/22 11:02 95 20 08/27/22 10:02 98.7 F 101 H 28 H 157/46 H 95 08/27/22 10:00 98.7 F 100 29 H 95 08/27/22 09:45 98.7 F 104 H 23 H 97 08/27/22 09:30 98.6 F 97 26 H 89 L 08/27/22 09:15 98.7 F 101 H 33 H 93 08/27/22 09:01 98.7 F 100 32 H 139/49 L 95 08/27/22 09:00 98.7 F 95 23 H 95 08/27/22 08:45 98.7 F 99 25 H 91 08/27/22 08:30 98.7 F 96 29 H 94 08/27/22 08:15 98.7 F 92 21 H 99 08/27/22 08:01 98.7 F 98 31 H 141/47 H 94 08/27/22 08:00 98.7 F 92 29 H 94 08/27/22 07:45 98.7 F 84 22 H 92 08/27/22 07:31 98.8 F 95 25 H 139/43 L 93 08/27/22 07:30 98.8 F 95 30 H 93 08/27/22 07:15 98.8 F 91 24 H 92 08/27/22 07:01 98.7 F 76 23 H 129/50 L 93 08/27/22 07:00 98.7 F 87 22 H 91 08/27/22 06:45 98.7 F 94 31 H 92 08/27/22 06:
--- NOTE | 2022-08-27 11:15 | PM.PNNEP ---
Progress Note: A&P Assessment and Plan (1) End stage renal disease: Code(s): N18.6 - End stage renal disease Status: Chronic Assessment and Plan: plan next HD tomorrow continue M/W/F dialysis schedule while hospitalized follow electrolytes, volume status, and clearance (2) Acute respiratory failure with hypoxia and hypercarbia: Code(s): J96.01 - Acute respiratory failure with hypoxia; J96.02 - Acute respiratory failure with hypercapnia Status: Acute Assessment and Plan: multifactorial etiology: COPD pneumonia volume overload pulmonary HTN on BiPAP therapy PRN empiric antibiotics, bronchodilators, and steroids fluid removal with dialysis wean supplemental oxygen as tolerated follow respiratory status (3) Pneumonia: Code(s): J18.9 - Pneumonia, unspecified organism Status: Acute Assessment and Plan: as suggestive by CXR follow culture data on broad spectrum antibiotics continue supportive therapy (4) Hypertension: Code(s): I10 - Essential (primary) hypertension Status: Chronic Assessment and Plan: reasonable control continue home medications follow trend of hemodynamics (5) Anemia: Code(s): D64.9 - Anemia, unspecified Status: Chronic Assessment and Plan: due to ESRD Epogen with HD follow H/H (6) Diabetes: Code(s): E11.9 - Type 2 diabetes mellitus without complications Status: Chronic Assessment and Plan: follow accuchecks glycemic control per hospitalists Will continue to follow. Subjective Date/time seen: 08/27/22 11:15 Overall, she states that she is feeling much better in comparison to her status on presentation to the ER; good oral intake and remains hemodynamically stable; no issues/events overnight or earlier this morning; no acute distress voiced at the time of my visit. Exam Narrative: General: elderly chronically ill-appearing female in NAD Heart: normal S1 and S2; no rub Lungs: coarse breath sounds throughout Abdomen: soft, nontender, nondistended, positive bowel sounds Extremities: no cyanosis or clubbing; no edema Skin: warm and intact Objective Data Vital Signs Vital Signs: Vital Signs Temp Pulse Resp BP Pulse Ox O2 Del Method O2 Flow Rate 08/27/22 11:02 95 20 08/27/22 10:02 98.7 F 101 H 28 H 157/46 H 95 08/27/22 10:00 98.7 F 100 29 H 95 08/27/22 09:45 98.7 F 104 H 23 H 97 08/27/22 09:30 98.6 F 97 26 H 89 L 08/27/22 09:15 98.7 F 101 H 33 H 93 08/27/22 09:01 98.7 F 100 32 H 139/49 L 95 08/27/22 09:00 98.7 F 95 23 H 95 08/27/22 08:45 98.7 F 99 25 H 91 08/27/22 08:30 98.7 F 96 29 H 94 08/27/22 08:15 98.7 F 92 21 H 99 08/27/22 08:01 98.7 F 98 31 H 141/47 H 94 08/27/22 08:00 98.7 F 92 29 H 94 08/27/22 07:45 98.7 F 84 22 H 92 08/27/22 07:31 98.8 F 95 25 H 139/43 L 93 08/27/22 07:30 98.8 F 95 30 H 93 08/27/22 07:15 98.8 F 91 24 H 92 08/27/22 07:01 98.7 F 76 23 H 129/50 L 93 08/27/22 07:00 98.7 F 87 22 H 91 08/27/22 06:45 98.7 F 94 31 H 92 08/27/22 06:40 98.7 F 90 29 H 128/70 93 08/27/22 06:30 98.8 F 90 29 H 94 08/27/22 06:15 98.8 F 88 22 H 94 08/27/22 06:01 98.7 F 90 24 H 165/64 H 95 08/27/22 06:00 98.8 F 93 24 H 94 08/27/22 05:45 98.8 F 88 21 H 93 08/27/22 05:31 98.7 F 87 17 162/61 H 93 08/27/22 05:30 98.7 F 90 23 H 93 08/27/22 05:15 98.4 F 95 28 H 94 08/27/22 05:01 98.8 F 93 21 H 155/53 H 95 08/27/22 05:00 98.8 F 93 20 94 08/27/22 04:45 98.7 F 88 28 H 93 08/27/22 04:31 98.7 F 93 27 H 148/56 H 92 08/27/22 04:30 98.7 F 89 26 H 92 08/27/22 04:15 98.7 F 88 31 H 92 08/27/22 04:01 98.7 F 95 33 H 170/56 H 94 08/27/22 04:00 98.7 F 93 32
[2022-08-27] MEDS: SPIRONOLACTONE 12.5 MG TABLET PO (12:18)
[2022-08-27] MEDS: lisinopriL 20 MG TABLET PO (12:18)
[2022-08-27] MEDS: amLODIPine BESYLATE 5 MG TABLET 10 MG PO (12:18)
[2022-08-27] MEDS: INSULIN ASPART (*BKC) 100 UNITS/ML SUB-Q (12:21)
[2022-08-27 12:22] LABS: Glucose Point of Care 231 mg/dl (65-105)
[2022-08-27] MEDS: FERROUS SULFATE 324 MG TABLET PO (17:01)
[2022-08-27] MEDS: busPIRone HCL 2.5 MG TABLET PO (17:01)
[2022-08-27] MEDS: busPIRone HCL 5 MG TABLET PO (17:01)
[2022-08-27 17:05] LABS: Glucose Point of Care 106 mg/dl (65-105)
[2022-08-27] MEDS: DOCUSATE SODIUM 100 MG CAPSULE PO (20:49)
[2022-08-27] MEDS: ATORVASTATIN 20 MG TABLET PO (20:49)
[2022-08-27] MEDS: LATANOPROST 0.005% OP SOLN 2.5 ML BTL 1 DROP EACH EYE (20:50)
[2022-08-27] MEDS: hydrALAZINE HCL 20 MG/ML VIAL 10 MG IV PUSH (22:05)
[2022-08-28] VITALS (43 sets, daily range): BP systolic 102–159; BP diastolic 23–75; PULSE 73–121; RESP 18–31; TEMP 36–37.2; O2SAT 90–97
[2022-08-28] MEDS: methylPREDNISolone SOD SUCC 40 MG VIAL IV PUSH ×3 (00:06→11:53)
[2022-08-28 00:36] LABS: Glucose Point of Care 178 mg/dl (65-105)
[2022-08-28] MEDS: ALBUTEROL SULFATE NEB 2.5 MG/3 ML INH INHALATION ×7 (01:15→23:11)
[2022-08-28] MEDS: IPRATROPIUM BR 0.02% INH SOLN 0.5 MG/2.5 ML VIAL INHALATION ×7 (01:15→23:11)
[2022-08-28 05:05] LABS: Basophils Percent Auto 0.2 % (0.2-1.2); Hematocrit 36.1 % (37.0-47.0); Hemoglobin 11.2 g/dL (12.0-15.0); Immature Granulocyte Absolute 0.19 K/mm3 (0.00-0.031); Immature Granulocyte Percent A 1.5 % (0-0.5); Lymphocytes Absolute Auto 0.41 K/mm3 (0.9-3.2); Lymphocytes Percent Auto 3.2 % (18.3-44.2); Mean Corpuscular Hemoglobin 29.9 pg (26-34); Mean Corpuscular Volume 96.3 fl (80-100); Mean Platelet Volume 10.3 fl (7.4-10.4); Monocytes Absolute Auto 0.5 K/mm3 (0.1-0.6); Monocytes Percent Auto 3.7 % (2.6-8.5); Neutrophils Absolute Auto 11.8 K/mm3 (1.3-6.7); Neutrophils Percent Auto 91.4 % (45.5-73.1); Nucleated Red Blood Cells Perc 0.2 % (0.0-0.2); Platelet Count Result 349 k/mm3 (150-375); Red Blood Count 3.75 M/mm3 (4.2-5.4); White Blood Count 12.9 K/mm3 (4.5-10.0)
[2022-08-28 05:20] LABS: Albumin Level 3.7 g/dL (3.5-5.1); Anion Gap 13 mmol/L (8-16); Blood Urea Nitrogen 95 mg/dL (7-17); Calcium 9.4 mg/dL (8.4-10.2); Carbon Dioxide 24 mmol/L (22-30); Chloride 98 mmol/L (98-107); Estimated CRCL calculation 7 ml/min; Estimated Glomerular Filt Rate 6; Glucose 147 mg/dL (65-110); Phosphorus 5.2 mg/dL (2.5-4.5); Potassium 5.2 mmol/L (3.4-5.0); Sodium 135 mmol/L (137-145)
[2022-08-28 05:28] LABS: Platelet Estimate Adequate (Adequate); Poikilocytosis 1+ (NORMAL)
[2022-08-28 05:29] LABS: Anisocytosis 1+ (NORMAL); Schistocytes None Seen (NORMAL)
[2022-08-28 05:50] LABS: Vancomycin Random 16.1 ug/mL (10-20)
[2022-08-28] MEDS: PIPERACILLIN/TAZ 2.25G/NS 50ML 2.25 GM/50 ML BAG IVPB ×3 (06:27→21:19)
[2022-08-28] MEDS: LEVOTHYROXINE SODIUM 100 MCG TABLET PO (06:28)
[2022-08-28] MEDS: DOCUSATE SODIUM 100 MG CAPSULE PO ×2 (08:11→21:17)
[2022-08-28] MEDS: PANTOPRAZOLE SODIUM IV 40 MG VIAL IV PUSH (08:11)
[2022-08-28] MEDS: ERGOCALCIFEROL 50,000 UNITS CAPSULE 50000 UNITS PO (08:11)
[2022-08-28] MEDS: FERROUS SULFATE 324 MG TABLET PO ×2 (08:11→18:02)
[2022-08-28] MEDS: HEPARIN SODIUM 5,000 UNITS/ML VIAL 5000 UNITS SUB-Q ×2 (08:11→21:17)
[2022-08-28] MEDS: busPIRone HCL 2.5 MG TABLET PO ×2 (08:11→18:01)
[2022-08-28] MEDS: busPIRone HCL 5 MG TABLET PO ×2 (08:12→18:02)
[2022-08-28] MEDS: SPIRONOLACTONE 12.5 MG TABLET PO (08:12)
[2022-08-28] MEDS: SODIUM CHLORIDE 0.9% IV 1,000 ML 999 ML IV CONT (08:21)
[2022-08-28] MEDS: BENZONATATE 100 MG CAPSULE 200 MG PO ×2 (08:44→11:53)
[2022-08-28 09:14] LABS: NT Pro B Type Natriuretic Pept > 30000 pg/mL (19.9-100)
--- NOTE | 2022-08-28 09:17 | PM.IMPN ---
Progress Note: A&P Assessment and Plan (1) Acute respiratory failure with hypoxia and hypercarbia: Code(s): J96.01 - Acute respiratory failure with hypoxia; J96.02 - Acute respiratory failure with hypercapnia Status: Acute Assessment and Plan: Acute respiratory failure likely due to COPD, pneumonia, CHF, improving Echo from 04/25 showed an EF of 60-65% with grade 1 diastolic dysfunction, mild valvular disease and moderate pulmonary hypertension Weaned to 4 L high-flow 08/28, improving, continue nebulizers and antibiotics CXR 08/27 showed worsening pneumonia, but clinically is improving, leuk slightly worsening, likely 2/2 steroids, check PCT/CRP 08/28 On vanc + zosyn started 08/25, levaquin given 08/25, 08/27, cont vanc + zosyn + levaquin 08/28 Blood cultures 08/25 NGTD Weaned solumedrol to prednisone 60 mg daily 08/28 (2) Pneumonia: Code(s): J18.9 - Pneumonia, unspecified organism Status: Acute Assessment and Plan: see above for details (3) Hypothyroidism: Code(s): E03.9 - Hypothyroidism, unspecified Status: Acute Assessment and Plan: Cont levothyroxine 100 mcg home dose TSH was 3.62 on 08/26/22 (4) Hypertension: Code(s): I10 - Essential (primary) hypertension Status: Chronic Assessment and Plan: Continue Norvasc, restart clonidine 0.1 mg twice daily 08/28 Blood pressures reviewed 08/28 (5) ESRD (end stage renal disease): Code(s): N18.6 - End stage renal disease Status: Chronic Assessment and Plan: End-stage renal disease on dialysis, Sunday, Sunday, Sunday, Appreciate nephrology consultation Intermittent hyperkalemia noted, mild, monitor (6) Atrial fibrillation with RVR: Code(s): I48.91 - Unspecified atrial fibrillation Status: Acute Assessment and Plan: went into afib with rvr after HD, given metoprolol succinate 25 mg po x 1, cardio consult pending Plan DVT prophylaxis: Heparin SQ Stress ulcer prophylaxis: Protonix Nutrition: Renal diet with thickened liquids Code status DNR Subjective Date/time seen: 08/28/22 09:17 Interval history: 87 y/o F with PMH significant for ESRD p/w shortness of breath, weakness, increased O2 requirement, pneumonia, acute exacerbation of COPD, hypercapnic respiratory failure requiring BiPAP, now weaned to hi-bree. 08/27: Patient weaned to 12 L high-flow, satting 95% on this. She states she feels much better than yesterday. Good po intake. 08/28: 94% on 4 L high-flow nc. Went into afib RVR, appears to be asymptomatic. No overnight events. Doing well otherwise, states her breathing feels better. Review of Systems Review of Systems: 12 point review of systems was assessed and was negative except as noted in the HPI Exam Narrative: General: Elderly female in no acute distress, unsure of baseline HEENT:? Pupils are reactive, sclera is clear, on hi bree Respiratory:?Coarse BS throughout, diminished at bases, improved air entry Cardiac:? S1-S2 is normal, regular rate and rhythm Abdomen:? Soft, nontender, nondistended, + BS Extremities:? No edema, normal to inspection Neuro:? Patient is awake, alert, oriented to her name and place. Follows simple commands in all extremities Psych:? Withdrawn affect, irritable Objective Data Vital Signs Vital Signs: Vital Signs - 24 hr 08/27/22 10:00 08/27/22 09:30 08/27/22 09:45 Temperature 98.6 F 98.7 F Pulse Rate 91 97 104 H Respiratory Rate 26 H 23 H Blood Pressure Pulse Oximetry 89 L 97 Oxygen Delivery Oxygen Flow Rate 08/27/22 10:00 08/27/22 10:02 08/27/22 11:52 Temperature 98.7 F 98.7 F Pulse Rate 100 101 H 95 Respiratory Rate 29 H 28 H 20 Blood Pressure 157/46 H Pulse Oximetry 95 95 Oxygen Delivery Oxygen Flow Rate 08/27/22 12:03 08/27/22 12:00 08/27/22 14:00 Temperature Pulse Rate 97 92 99 Respiratory Rate 20 24 H Blood Pressure Pulse
[2022-08-28 09:51] LABS: Alanine Aminotransferase 14 U/L (6-35); Albumin Level 3.7 g/dL (3.5-5.1); Alkaline Phosphatase 90 U/L (38-126); Aspartate Amino Transferase 24 U/L (14-36); Bilirubin,Total 0.5 mg/dL (0.2-1.3)
[2022-08-28 10:05] LABS: Procalcitonin 2.3 ng/mL
--- NOTE | 2022-08-28 10:38 | PM.PNNEP ---
Progress Note: A&P Assessment and Plan (1) End stage renal disease: Code(s): N18.6 - End stage renal disease Status: Chronic Assessment and Plan: HD today continue M/W/F dialysis schedule while hospitalized follow electrolytes, volume status, and clearance (2) Acute respiratory failure with hypoxia and hypercarbia: Code(s): J96.01 - Acute respiratory failure with hypoxia; J96.02 - Acute respiratory failure with hypercapnia Status: Acute Assessment and Plan: slow improvement noted multifactorial etiology: COPD pneumonia volume overload pulmonary HTN on BiPAP therapy PRN empiric antibiotics, bronchodilators, and steroids fluid removal with dialysis wean supplemental oxygen as tolerated follow respiratory status (3) Pneumonia: Code(s): J18.9 - Pneumonia, unspecified organism Status: Acute Assessment and Plan: as suggestive by CXR follow culture data on broad spectrum antibiotics continue supportive therapy (4) Hypertension: Code(s): I10 - Essential (primary) hypertension Status: Chronic Assessment and Plan: reasonable control continue home medications follow trend of hemodynamics (5) Anemia: Code(s): D64.9 - Anemia, unspecified Status: Chronic Assessment and Plan: due to ESRD Epogen with HD follow H/H (6) Diabetes: Code(s): E11.9 - Type 2 diabetes mellitus without complications Status: Chronic Assessment and Plan: follow accuchecks glycemic control per hospitalists Will continue to follow. Subjective Date/time seen: 08/28/22 10:38 Tolerating dialysis treatment at the time of my visit (seen on HD at ~ 10:30AM); oxygen requirement trending down with relative stability if not improvement in respiratory status; major complaint when seen was abdominal pain; no other issues/events overnight or earlier this AM. Exam Narrative: General: elderly chronically ill-appearing female in NAD Heart: normal S1 and S2; no rub Lungs: coarse breath sounds throughout Abdomen: soft, nondistended, positive bowel sounds Extremities: no cyanosis or clubbing; no edema Skin: warm and intact Objective Data Vital Signs Vital Signs: Vital Signs Temp Pulse Resp BP Pulse Ox O2 Del Method O2 Flow Rate 08/28/22 10:00 85 08/28/22 08:00 95 High Flow Therapy with Na 4 08/28/22 08:00 97.9 F 97 22 H 159/55 H 96 08/28/22 08:00 97 08/28/22 11:02 94 102/30 L 08/28/22 10:45 80 103/37 L 08/28/22 10:30 93 111/42 L 08/28/22 10:15 133/58 L 08/28/22 10:00 96 118/46 L 08/28/22 09:47 101 H 135/23 L 08/28/22 09:30 98 133/48 L 08/28/22 09:15 90 142/36 H 08/28/22 09:00 98 123/50 L 08/28/22 08:46 90 136/39 L 08/28/22 08:30 88 145/51 H 08/28/22 08:16 83 159/55 H 08/28/22 08:08 90 145/50 H 08/28/22 07:40 4 08/28/22 07:40 97.9 F 86 26 H 147/46 H 94 08/28/22 07:45 94 20 08/28/22 07:35 92 18 08/28/22 07:35 92 18 92 Nasal Cannula 6 08/28/22 01:15 90 20 08/28/22 06:00 88 08/28/22 04:00 95 High Flow Therapy with Na 5 08/28/22 04:00 85 08/28/22 04:00 98.2 F 85 26 H 143/50 H 95 08/28/22 02:00 88 08/28/22 00:39 94 High Flow Nasal Cannula 5 08/28/22 00:30 90 Nasal Cannula 4 08/28/22 00:00 94 High Flow Therapy with Na 4 08/28/22 00:00 90 08/28/22 00:00 97.9 F 85 24 H 125/53 L 94 08/27/22 22:03 163/48 H 08/27/22 22:00 89 08/27/22 21:25 94 High Flow Nasal Cannula 5 08/27/22 20:00 88 08/27/22 20:00 98.1 F 90 29 H 156/53 H 94 08/27/22 20:09 97 High Flow Nasal Cannula 6 08/27/22 20:09 89 16 08/27/22 19:59 96 High Flow Therapy with Na 6 08/27/22 12:00 92
--- NOTE | 2022-08-28 10:38 | P.PNNP_ITS ---
Progress Note: A&P Assessment and Plan (1) End stage renal disease: Code(s): N18.6 - End stage renal disease Status: Chronic Assessment and Plan: * HD today * continue M/W/F dialysis schedule while hospitalized * follow electrolytes, volume status, and clearance (2) Acute respiratory failure with hypoxia and hypercarbia: Code(s): J96.01 - Acute respiratory failure with hypoxia; J96.02 - Acute respiratory failure with hypercapnia Status: Acute Assessment and Plan: * slow improvement noted * multifactorial etiology: * COPD * pneumonia * volume overload * pulmonary HTN * on BiPAP therapy PRN * empiric antibiotics, bronchodilators, and steroids * fluid removal with dialysis * wean supplemental oxygen as tolerated * follow respiratory status (3) Pneumonia: Code(s): J18.9 - Pneumonia, unspecified organism Status: Acute Assessment and Plan: * as suggestive by CXR * follow culture data * on broad spectrum antibiotics * continue supportive therapy (4) Hypertension: Code(s): I10 - Essential (primary) hypertension Status: Chronic Assessment and Plan: * reasonable control * continue home medications * follow trend of hemodynamics (5) Anemia: Code(s): D64.9 - Anemia, unspecified Status: Chronic Assessment and Plan: * due to ESRD * Epogen with HD * follow H/H (6) Diabetes: Code(s): E11.9 - Type 2 diabetes mellitus without complications Status: Chronic Assessment and Plan: * follow accuchecks * glycemic control per hospitalists Will continue to follow. Subjective Date/time seen: 08/28/22 10:38 Tolerating dialysis treatment at the time of my visit (seen on HD at ~ 10:30AM); oxygen requirement trending down with relative stability if not improvement in respiratory status; major complaint when seen was abdominal pain; no other issues/events overnight or earlier this AM. Exam Narrative: General: elderly chronically ill-appearing female in NAD Heart: normal S1 and S2; no rub Lungs: coarse breath sounds throughout Abdomen: soft, nondistended, positive bowel sounds Extremities: no cyanosis or clubbing; no edema Skin: warm and intact Objective Data Vital Signs Vital Signs: Vital Signs Temp Pulse Resp BP Pulse Ox O2 Del Method O2 Flow Rate 08/28/22 10:00 85 08/28/22 08:00 95 High Flow Therapy with Na 4 08/28/22 08:00 97.9 F 97 22 H 159/55 H 96 08/28/22 08:00 97 08/28/22 11:02 94 102/30 L 08/28/22 10:45 80 103/37 L 08/28/22 10:30 93 111/42 L 08/28/22 10:15 133/58 L 08/28/22 10:00 96 118/46 L 08/28/22 09:47 101 H 135/23 L 08/28/22 09:30 98 133/48 L 08/28/22 09:15 90 142/36 H 08/28/22 09:00 98 123/50 L 08/28/22 08:46 90 136/39 L 08/28/22 08:30 88 145/51 H 08/28/22 08:16 83 159/55 H 08/28/22 08:08 90 145/50 H 08/28/22 07:40 4 08/28/22 07:40 97.9 F 86 26 H 147/46 H 94 08/28/22 07:45 94 20 08/28/22 07:35 92 18 08/28/22 07:35 92 18 92 Nasal Cannula 6 08/28/22 01:15 90 20
[2022-08-28] MEDS: EPOETIN ALFA-EPBX 10,000 UNITS/ML VIAL 10000 UNITS IV PUSH (11:34)
[2022-08-28 11:51] LABS: Glucose Point of Care 125 mg/dl (65-105)
--- NOTE | 2022-08-28 12:08 | PM.PNPUL ---
Progress Note: A&P Assessment and Plan (1) Pneumonia: Code(s): J18.9 - Pneumonia, unspecified organism Status: Acute Assessment and Plan: 08/28: patient on vanc, Zosyn and Levaquin since 08/25. blood cultures are negative, sputum is growth of normal valeria. covert RT PCR negative on 08/25/2022. Mycoplasma IgM pending. overall right lung infiltrate has improved since admission. White blood cell count today is 12.9. Hypercarbic respiratory failure and hypoxemic respiratory failure have improved and the patient is currently on 4 L nasal cannula. Plan: Continue vanc, Zosyn and Levaquin (today day 4) as she was recently hospitalized and received ceftriaxone for right lower extremity cellulitis. She will need follow-up chest x-ray in 6 to 8 weeks to reassess infiltrates. (2) COPD (chronic obstructive pulmonary disease): Code(s): J44.9 - Chronic obstructive pulmonary disease, unspecified Status: Acute Assessment and Plan: Patient carries a diagnosis of COPD, she is a former smoker for 34 pack years, I have no PFTs, outpatient medicines included albuterol. Requires 2-3 L at home. She presented 08/25 with scant expiratory wheezes in the emergency room but on the admission H&P stated she had faint crackles and no wheezes were listed. Acute on chronic hypercarbic and hypoxemic respiratory failure. She required BiPAP and was treated for COPD exacerbation with steroids, bronchodilators and antibiotics. Last blood gas on 08/27/2022 was a pH of 7.36/45/75 on 45 L high flow and 35% FiO2. 08/28 Patient has no wheezes on exam and is being changed to prednisone 60 mg q.day. Would continue for a total of 5 days (last dose on 08/29). continue albuterol and ipratropium nebulizers q.4 hours. Continue Tessalon Perles 200 mg p.o. t.i.d. Currently the patient is on 4 L nasal cannula saturations 97%. (3) End stage renal disease: Code(s): N18.6 - End stage renal disease Status: Chronic Assessment and Plan: Managed per Nephrology team. Agree with aggressive fluid removal as tolerated by renal and cardiac Systems per the Nephrology and hospitalist teams. Subjective Date/time seen: 08/28/22 12:08 Interval history: 08/25 NEW: Sofía Contreras is an 87-year-old woman with ho COPD, ( no PFTS, on 2-3 L at home), acute respiratory failure and pneumonia, had increased interstitial markings on CXR . She has ESRD on HD on . 08/28 patient continues with shortness of breath. Currently she is on 4 L nasal cannula saturations 97%. White blood cell count is 12.9. She is currently receiving hemodialysis with a goal of 2.5 L off. White blood cell count 12.9, creatinine 6.2. BNP greater than 30,000. DATA: 04/08/2022 Echo Summary ? 1. Complete two-dimensional, color flow and Doppler transthoracic echocardiogram is performed. ? 2. Left ventricular chamber dimension is normal. ? 3. Left ventricular systolic function is normal, estimated at 60-65%. ? 4. There is mildly increased left ventricular wall thickness. ? 5. The left ventricular diastolic function is grade I diastolic dysfunction. ? 6. Left atrial chamber dimension is moderately enlarged. ? 7. There is mild mitral valve regurgitation. ? 8. The mitral valve annulus is severely calcified. ? 9. There is mild tricuspid valve regurgitation. ? 10. Moderate pulmonary hypertension, estimated pulmonary arterial systolic pressure is 50 mmHg. Right Ventricle ? Right ventricular chamber dimension is normal. ? Right ventricular systolic function is normal. Right Atria ? Right atrial chamber dimension is normal. Atrial Septum ? Intact interatrial septum visualized by color flow imaging. Review of Systems Constitutional: Constitutional: Reports no additional constitutional complaints Eyes: Eyes: Reports no additional eye complaints ENT: Reports system reviewed and no additional complaints, except as documented
--- NOTE | 2022-08-28 12:09 | ECG_ITS ---
Measurements Intervals [place] Rate: 104 P: [place]: 0 QRS: -24 QRSD: 122 T: 129 QT: 361 QTc: 476 Interpretive Statements SINUS TACHYCARDIA FREQUENT ATRIAL PREMATURE COMPLEXES INTRAVENTRICULAR CONDUCTION DELAY LEFT VENTRICULAR HYPERTROPHY WITH ST-T CHANGE BASELINE ARTIFACT- II, III, V3, V5 ABNORMAL ECG COMPARED TO ECG 08/25/2022 09:09:21 SINUS TACHYCARDIA NOW PRESENT Electronically Signed On 08-28-2022 12:55:41 CDT by Kendrick Frances D.O.
[2022-08-28 12:14] LABS: CRP 6.8 mg/dL (<1.0)
[2022-08-28] MEDS: METOPROLOL SUCCINATE EXT REL 25 MG TABCR PO (13:10)
--- NOTE | 2022-08-28 15:01 | PM.CNCAR ---
Assessment and Plan Assessment and plan (1) Atrial fibrillation with RVR: Code(s): I48.91 - Unspecified atrial fibrillation Status: Acute Plan this is an 87-year-old lady who is more tachycardic and has irregular rhythm following dialysis but I do not believe we are looking at soraida atrial fibrillation when I watch her telemetry for an extended period of time she clearly has P waves with a apparent sinus focus. Her 12 lead ECG also suggest this. For some reason she is having a lot more ectopic activity following dialysis but I do not believe we have atrial fibrillation at this time. We will follow her with you as needed but at this point I would not recommend starting antiarrhythmic therapy other than the beta-janet that she has been given a short time ago. At her advanced age with poor condition I would not anticoagulate her since I do not believe we are seeing Soraida atrial fibrillation. Jose Cruz Oliver MD [facility] History of Present Illness History of Present Illness Consult date/time: 08/28/22 15:01 Reason For Visit: Respiratory Failure, Pneumonia Narrative: This is an 87-year-old woman I am seeing at the request of the hospitalist in the ICU because of atrial fibrillation. Patient is unknown to me prior to this encounter and is alert and responsive but a very poor historian and not able to provide much the way of history regarding her medical problems. She was hospitalized here several days ago from the shelter where she resides because of hypercarbic respiratory failure and has been managed by the connie scratcher, recorder helper gravity prospecting and hospitalist staff. The patient also has end-stage renal disease and is a chronic hemodialysis patient. She was sent here from the shelter where she resides because of on shortness of breath. She has a baseline ECG that shows sinus rhythm with an intraventricular conduction delay and nonspecific ST or T abnormalities. Apparently after being dialyzed today she was significantly more tachycardic her rhythm was irregular and interpreted as atrial fibrillation. A 12 lead ECG was done which is most consistent with sinus tachycardia with frequent APCs. She was given a dose of oral metoprolol and a consult request was placed for us to see her. She is in ICU room number night with a face mask oxygen in place she does not have any immediate cardiovascular complaints although once again she is a very poor historian. Careful review of her telemetry appears to show sinus P waves mixed in with a lot of atrial ectopic activity. The 12 lead ECG also shows some sinus P-waves. I do not see any rhythm strips that are convincing for sroaida atrial fibrillation. The patient once again is a shelter resident with do not resuscitate orders on her chart. Review of Systems Review of Systems: ROS unobtainable: Yes unobtainable due to mental status [facility] Past Medical History Medical History (Updated 08/28/22 @ 13:27 by May Pro, DO) Chronic anemia Chronic obstructive pulmonary disease Chronic respiratory failure with hypoxia On 2 to 3 liters nasal cannula. COVID-19 (06/2021) Diastolic dysfunction End-stage renal disease on hemodialysis Erythropoietin deficiency anemia Gastroesophageal reflux disease Glaucoma Hyperlipidemia Hypertension Hypothyroidism Osteoarthritis Pulmonary hypertension Renal osteodystrophy Type 2 diabetes mellitus Vitamin D deficiency Surgical History Surgical History Status post creation of arteriovenous fistula Left upper extremity. Family History Family History Other Diabetes mellitus Hypertension Social History Social History Social History: Surrogate decision maker: Amy Contreras, roman. Code status: Do not resuscitate. Smoking packs per day: 1 Smoking cigarette
[2022-08-28 16:03] LABS: Anion Gap 11 mmol/L (8-16); Blood Urea Nitrogen 35 mg/dL (7-17); Calcium 8.6 mg/dL (8.4-10.2); Carbon Dioxide 35 mmol/L (22-30); Chloride 91 mmol/L (98-107); Estimated CRCL calculation 14 ml/min; Estimated Glomerular Filt Rate 15; Glucose 213 mg/dL (65-110); Magnesium 2.1 mg/dL (1.6-2.3); Phosphorus 3.9 mg/dL (2.5-4.5); Potassium 3.8 mmol/L (3.4-5.0); Sodium 137 mmol/L (137-145)
[2022-08-28 18:01] LABS: Glucose Point of Care 182 mg/dl (65-105)
[2022-08-28] MEDS: predniSONE 20 MG TABLET 60 MG PO (18:01)
[2022-08-28] MEDS: ATORVASTATIN 20 MG TABLET PO (21:16)
[2022-08-28] MEDS: cloNIDine HCL 0.1 MG TABLET PO (21:16)
[2022-08-28] MEDS: LATANOPROST 0.005% OP SOLN 2.5 ML BTL 1 DROP EACH EYE (21:17)
[2022-08-29] VITALS (22 sets, daily range): BP systolic 113–144; BP diastolic 35–70; PULSE 67–108; RESP 18–26; TEMP 36.8–37.2; O2SAT 93–97
[2022-08-29 00:07] LABS: Glucose Point of Care 165 mg/dl (65-105)
[2022-08-29 05:16] LABS: Basophils Percent Auto 0.5 % (0.2-1.2); Hematocrit 36.3 % (37.0-47.0); Immature Granulocyte Absolute 0.42 K/mm3 (0.00-0.031); Immature Granulocyte Percent A 5.3 % (0-0.5); Lymphocytes Absolute Auto 0.32 K/mm3 (0.9-3.2); Lymphocytes Percent Auto 4.1 % (18.3-44.2); Mean Corpuscular HGB Conc 30.3 g/dl (32-36); Mean Corpuscular Hemoglobin 28.8 pg (26-34); Monocytes Absolute Auto 0.4 K/mm3 (0.1-0.6); Monocytes Percent Auto 5.3 % (2.6-8.5); Neutrophils Absolute Auto 6.7 K/mm3 (1.3-6.7); Neutrophils Percent Auto 84.8 % (45.5-73.1); Nucleated Red Blood Cells Perc 0.3 % (0.0-0.2); Platelet Count Result 279 k/mm3 (150-375); Red Blood Count 3.82 M/mm3 (4.2-5.4); Red Cell Distribution Width 17.7 % (11.5-14.5); White Blood Count 7.9 K/mm3 (4.5-10.0)
[2022-08-29 05:35] LABS: Alanine Aminotransferase 13 U/L (6-35); Albumin Level 3.3 g/dL (3.5-5.1); Alkaline Phosphatase 73 U/L (38-126); Anion Gap 7 mmol/L (8-16); Aspartate Amino Transferase 17 U/L (14-36); Bilirubin,Total 0.5 mg/dL (0.2-1.3); Blood Urea Nitrogen 51 mg/dL (7-17); Calcium 8.4 mg/dL (8.4-10.2); Carbon Dioxide 38 mmol/L (22-30); Chloride 91 mmol/L (98-107); Estimated CRCL calculation 10 ml/min; Estimated Glomerular Filt Rate 11; Glucose 178 mg/dL (65-110); Potassium 4.4 mmol/L (3.4-5.0); Sodium 136 mmol/L (137-145)
[2022-08-29] MEDS: IPRATROPIUM BR 0.02% INH SOLN 0.5 MG/2.5 ML VIAL INHALATION ×6 (05:35→23:41)
[2022-08-29] MEDS: ALBUTEROL SULFATE NEB 2.5 MG/3 ML INH INHALATION ×6 (05:35→23:41)
[2022-08-29] MEDS: PIPERACILLIN/TAZ 2.25G/NS 50ML 2.25 GM/50 ML BAG IVPB ×3 (05:37→21:06)
[2022-08-29] MEDS: LEVOTHYROXINE SODIUM 100 MCG TABLET PO (05:37)
[2022-08-29] MEDS: predniSONE 20 MG TABLET 60 MG PO (08:56)
[2022-08-29] MEDS: HEPARIN SODIUM 5,000 UNITS/ML VIAL 5000 UNITS SUB-Q ×2 (08:57→21:02)
[2022-08-29] MEDS: DOCUSATE SODIUM 100 MG CAPSULE PO ×2 (08:57→21:02)
[2022-08-29] MEDS: BENZONATATE 100 MG CAPSULE 200 MG PO ×3 (08:57→16:53)
[2022-08-29] MEDS: amLODIPine BESYLATE 5 MG TABLET 10 MG PO (08:58)
[2022-08-29] MEDS: busPIRone HCL 2.5 MG TABLET PO ×2 (08:58→16:54)
[2022-08-29] MEDS: cloNIDine HCL 0.1 MG TABLET PO ×2 (08:58→21:06)
[2022-08-29] MEDS: levoFLOXacin 500 MG/D5W 100 ML 500 MG/100 ML BAG 100 MG IVPB (08:59)
[2022-08-29] MEDS: lisinopriL 20 MG TABLET PO (08:59)
[2022-08-29] MEDS: FERROUS SULFATE 324 MG TABLET PO ×2 (08:59→16:55)
[2022-08-29] MEDS: PANTOPRAZOLE SODIUM IV 40 MG VIAL IV PUSH (08:59)
[2022-08-29] MEDS: SPIRONOLACTONE 12.5 MG TABLET PO (08:59)
[2022-08-29] MEDS: busPIRone HCL 5 MG TABLET PO ×2 (09:00→16:54)
--- NOTE | 2022-08-29 09:49 | P.CDI_ITS ---
CDI Query Clarification Request Acute on chronic diastolic heart failure <May Pro DO - Last Filed: 08/29/22 17:57> Clarified Diagnosis Clarified Diagnosis: BNP elevated on 08/25/22 & 08/28/22 lab work. Documented history of CHF. CHF noted in the assessment and plan. Chest Xray on 08/25/22 notes pulmonary edema. Please specify type and acuity of heart failure if known. * Acute * Chronic * Acute on Chronic * Unknown * Systolic * Diastolic * Combined Systolic and Diastolic * Unknown <Jodee Meredith RN - Last Filed: 08/29/22 09:52>
--- NOTE | 2022-08-29 10:59 | P.PNNP_ITS ---
Progress Note: A&P Assessment and Plan (1) End stage renal disease: Code(s): N18.6 - End stage renal disease Status: Chronic Assessment and Plan: * HD tomorrow * continue M/W/F dialysis schedule while hospitalized * follow electrolytes, volume status, and clearance (2) Acute respiratory failure with hypoxia and hypercarbia: Code(s): J96.01 - Acute respiratory failure with hypoxia; J96.02 - Acute respiratory failure with hypercapnia Status: Acute Assessment and Plan: * slow improvement noted * multifactorial etiology: * COPD * pneumonia * volume overload * pulmonary HTN * on BiPAP therapy PRN * empiric antibiotics, bronchodilators, and steroids * fluid removal with dialysis * wean supplemental oxygen as tolerated * follow respiratory status (3) Pneumonia: Code(s): J18.9 - Pneumonia, unspecified organism Status: Acute Assessment and Plan: * as suggestive by CXR * follow culture data * on broad spectrum antibiotics * continue supportive therapy (4) Hypertension: Code(s): I10 - Essential (primary) hypertension Status: Chronic Assessment and Plan: * reasonable control * continue home medications * follow trend of hemodynamics (5) Anemia: Code(s): D64.9 - Anemia, unspecified Status: Chronic Assessment and Plan: * due to ESRD * Epogen with HD * follow H/H (6) Diabetes: Code(s): E11.9 - Type 2 diabetes mellitus without complications Status: Chronic Assessment and Plan: * follow accuchecks * glycemic control per hospitalists Will continue to follow. Subjective Date/time seen: 08/29/22 10:59 Tolerated hemodialysis treatment yesterday without any issues or problems; breathing/respiratory status continues to slowing improve with ongoing interventions; eating and drinking reasonably well; no other events overnight or earlier this AM. Exam Narrative: General: elderly chronically ill-appearing female in NAD Heart: normal S1 and S2; no rub Lungs: coarse breath sounds throughout Abdomen: soft, nondistended, positive bowel sounds Extremities: no cyanosis or clubbing; no edema Skin: warm and intact Objective Data Vital Signs Vital Signs: Vital Signs Temp Pulse Resp BP Pulse Ox O2 Del Method O2 Flow Rate 08/29/22 10:00 70 08/29/22 08:00 73 08/29/22 08:00 83 21 H 96 High Flow Nasal Cannula 3 08/29/22 09:25 83 21 H 08/29/22 08:00 98.3 F 67 23 H 122/49 L 95 08/29/22 08:13 70 20 96 High Flow Nasal Cannula 4 08/29/22 08:13 70 20 08/29/22 06:00 73 08/29/22 04:00 96 High Flow Therapy with Na 4 08/29/22 04:00 75 08/29/22 06:19 80 18 08/29/22 04:00 98.5 F 76 22 H 136/37 L 95 08/29/22 05:36 82 18 08/29/22 02:00 74 08/29/22 00:00 86 08/29/22 00:00 95 High Flow Therapy with Na 4 08/29/22 00:00 98.8 F 82 24 H 133/55 L 95 08/28/22 20:57 85 20 08/28/22 23:25 73 20 08/28/22 20:43 95 High Flow Nasal Cannula 4 08/28/22 23:13 82 20 08/28/22 22:00 84 08/28/22 20:00 78 08/28/22 20
--- NOTE | 2022-08-29 10:59 | PM.PNNEP ---
Progress Note: A&P Assessment and Plan (1) End stage renal disease: Code(s): N18.6 - End stage renal disease Status: Chronic Assessment and Plan: HD tomorrow continue M/W/F dialysis schedule while hospitalized follow electrolytes, volume status, and clearance (2) Acute respiratory failure with hypoxia and hypercarbia: Code(s): J96.01 - Acute respiratory failure with hypoxia; J96.02 - Acute respiratory failure with hypercapnia Status: Acute Assessment and Plan: slow improvement noted multifactorial etiology: COPD pneumonia volume overload pulmonary HTN on BiPAP therapy PRN empiric antibiotics, bronchodilators, and steroids fluid removal with dialysis wean supplemental oxygen as tolerated follow respiratory status (3) Pneumonia: Code(s): J18.9 - Pneumonia, unspecified organism Status: Acute Assessment and Plan: as suggestive by CXR follow culture data on broad spectrum antibiotics continue supportive therapy (4) Hypertension: Code(s): I10 - Essential (primary) hypertension Status: Chronic Assessment and Plan: reasonable control continue home medications follow trend of hemodynamics (5) Anemia: Code(s): D64.9 - Anemia, unspecified Status: Chronic Assessment and Plan: due to ESRD Epogen with HD follow H/H (6) Diabetes: Code(s): E11.9 - Type 2 diabetes mellitus without complications Status: Chronic Assessment and Plan: follow accuchecks glycemic control per hospitalists Will continue to follow. Subjective Date/time seen: 08/29/22 10:59 Tolerated hemodialysis treatment yesterday without any issues or problems; breathing/respiratory status continues to slowing improve with ongoing interventions; eating and drinking reasonably well; no other events overnight or earlier this AM. Exam Narrative: General: elderly chronically ill-appearing female in NAD Heart: normal S1 and S2; no rub Lungs: coarse breath sounds throughout Abdomen: soft, nondistended, positive bowel sounds Extremities: no cyanosis or clubbing; no edema Skin: warm and intact Objective Data Vital Signs Vital Signs: Vital Signs Temp Pulse Resp BP Pulse Ox O2 Del Method O2 Flow Rate 08/29/22 10:00 70 08/29/22 08:00 73 08/29/22 08:00 83 21 H 96 High Flow Nasal Cannula 3 08/29/22 09:25 83 21 H 08/29/22 08:00 98.3 F 67 23 H 122/49 L 95 08/29/22 08:13 70 20 96 High Flow Nasal Cannula 4 08/29/22 08:13 70 20 08/29/22 06:00 73 08/29/22 04:00 96 High Flow Therapy with Na 4 08/29/22 04:00 75 08/29/22 06:19 80 18 08/29/22 04:00 98.5 F 76 22 H 136/37 L 95 08/29/22 05:36 82 18 08/29/22 02:00 74 08/29/22 00:00 86 08/29/22 00:00 95 High Flow Therapy with Na 4 08/29/22 00:00 98.8 F 82 24 H 133/55 L 95 08/28/22 20:57 85 20 08/28/22 23:25 73 20 08/28/22 20:43 95 High Flow Nasal Cannula 4 08/28/22 23:13 82 20 08/28/22 22:00 84 08/28/22 20:00 78 08/28/22 20:00 95 High Flow Therapy with Na 4 08/28/22 20:00 98.9 F 81 24 H 152/39 H 97 08/28/22 20:44 83 19 08/28/22 18:00 84 08/28/22 16:00 95 High Flow Therapy with Na 4 08/28/22 16:00 98.3 F 103 H 30 H 115/75 94 08/28/22 16:00 103 H 08/28/22 15:10 96 18 08/28/22 15:03 95 20 08/28/22 14:00 108 H 08/28/22 13:10 121 H Intake/Output Intake/Output: Intake & Output 08/26/22 08/27/22 08/28/22 08/29/22 23:59 23:59 23:59 23:59 Intake Total 1110 1030 1300 530 Output Total 0 25 2510 30 Balance 1110 1005 -1210 500 Meds/Results Medications: Active Medications Generic Name Dose Route Start Last Admin Trade Name Freq PRN Reason Stop Dose Admin Albuterol 2.5 mg
--- NOTE | 2022-08-29 11:23 | PM.IMPN ---
Progress Note: A&P Assessment and Plan (1) Acute respiratory failure with hypoxia and hypercarbia: Code(s): J96.01 - Acute respiratory failure with hypoxia; J96.02 - Acute respiratory failure with hypercapnia Status: Acute Assessment and Plan: Acute respiratory failure likely due to COPD, pneumonia, CHF, improving Data: Echo from 04/25 showed an EF of 60-65% with grade 1 diastolic dysfunction, mild valvular disease and moderate pulmonary hypertension Sputum culture 08/25 negative Blood cultures 08/25 NGTD Weaned to 4 L high-flow 08/28, improving, continue nebulizers and antibiotics CXR 08/27 showed worsening pneumonia, but clinically improving PCT 08/28 2.3 CRP improving from 17.5 08/27 to 6.8 08/28 Abx/steroids: Vanc + zosyn + solumedrol started 08/25 Levaquin given 08/25, 08/27, cont vanc + zosyn + levaquin 08/28 Blood cultures 08/25 NGTD Weaned solumedrol to prednisone 60 mg daily 08/28, leuk resolved 08/29 08/29: Cont vanc + zosyn + levaquin, day 4 of abx, prednisone 60 mg daily, day 5 of steroids, 96% on 4L nc, follow cultures, MRSA swab pending (2) Pneumonia: Code(s): J18.9 - Pneumonia, unspecified organism Status: Acute Assessment and Plan: see above for details (3) Hypothyroidism: Code(s): E03.9 - Hypothyroidism, unspecified Status: Acute Assessment and Plan: Cont levothyroxine 100 mcg home dose TSH was 3.62 on 08/26/22 (4) Hypertension: Code(s): I10 - Essential (primary) hypertension Status: Chronic Assessment and Plan: Continue Norvasc, restart clonidine 0.1 mg twice daily 08/28 Blood pressures reviewed 08/29 (5) ESRD (end stage renal disease): Code(s): N18.6 - End stage renal disease Status: Chronic Assessment and Plan: End-stage renal disease on dialysis, Sunday, Sunday, Sunday, Appreciate nephrology consultation Intermittent hyperkalemia noted, mild, monitor (6) Atrial fibrillation with RVR: Code(s): I48.91 - Unspecified atrial fibrillation Status: Acute Assessment and Plan: Went into afib with rvr after extra fluid taken off during HD 08/28, given metoprolol succinate 25 mg po x 1, cardio consulted Plan DVT prophylaxis: Heparin SQ Stress ulcer prophylaxis: Protonix Nutrition: Renal diet with thickened liquids Code status DNR Subjective Date/time seen: 08/29/22 11:23 Interval history: 87 y/o F with PMH significant for ESRD p/w shortness of breath, weakness, increased O2 requirement, pneumonia, acute exacerbation of COPD, hypercapnic respiratory failure requiring BiPAP, now weaned to hi-bree. 08/27: Patient weaned to 12 L high-flow, satting 95% on this. She states she feels much better than yesterday. Good po intake. 08/28: 94% on 4 L high-flow nc. Went into afib RVR, appears to be asymptomatic. No overnight events. Doing well otherwise, states her breathing feels better. 08/29: 96% on 4 L high-flow nasal cannula, will attempt to weaned to regular nasal cannula. Sinus rhythm on telemetry today. Patient states she continues to feel better. A little stronger each day. Good p.o. intake. Denies nausea, vomiting or diarrhea. No fevers or overnight events noted. Review of Systems Review of Systems: 12 point review of systems was assessed and was negative except as noted in the HPI Exam Narrative: General: Elderly female in no acute distress, unsure of baseline HEENT:? Pupils are reactive, sclera is clear, on hi bree Respiratory:?Coarse BS throughout, diminished at bases, improved air entry Cardiac:? S1-S2 is normal, regular rate and rhythm Abdomen:? Soft, nontender, nondistended, + BS Extremities:? No edema, normal to inspection Neuro:? Patient is awake, alert, oriented to her name and place. Follows simple commands in all extremities Psych:? Withdrawn affect, irritable Objective Data Vital Signs Vital Signs: Vital Signs - 24 hr 08/28/22
[2022-08-29 12:51] LABS: Glucose Point of Care 192 mg/dl (65-105)
--- NOTE | 2022-08-29 13:47 | PC.NURSE ---
Patient c/o dizziness on transfer to chair. Patient returned to bed. Dr. Pro notified.
[2022-08-29 17:15] LABS: Glucose Point of Care 158 mg/dl (65-105)
[2022-08-29 17:21] LABS: Hepatitis B Core Ab Total Nonreactive (Nonreactive)
[2022-08-29 18:15] LABS: Mycoplasma IgM Antibody Titer 118 U/mL (<770)
[2022-08-29] MEDS: ATORVASTATIN 20 MG TABLET PO (21:02)
[2022-08-29] MEDS: LATANOPROST 0.005% OP SOLN 2.5 ML BTL 1 DROP EACH EYE (21:03)
[2022-08-29 23:49] LABS: Glucose Point of Care 215 mg/dl (65-105)
[2022-08-29] MEDS: INSULIN ASPART (*BKC) 100 UNITS/ML SUB-Q (23:49)
--- NOTE | 2022-08-29 23:58 | PC.NURSE ---
This patient, Sofía Contreras, was transferred to [room 305-2 ] on 08/29/22 at 2358. Personal belongings sent with patient. Report given to [SARBJIT Beaulieu ]. Appropriate documentation sent with patient.
[2022-08-30] VITALS (24 sets, daily range): BP systolic 101–151; BP diastolic 35–57; PULSE 49–95; RESP 18–24; TEMP 36–36.7; O2SAT 94–100
[2022-08-30] MEDS: PIPERACILLIN/TAZ 2.25G/NS 50ML 2.25 GM/50 ML BAG IVPB ×3 (05:44→22:30)
[2022-08-30] MEDS: LEVOTHYROXINE SODIUM 100 MCG TABLET PO (05:44)
[2022-08-30 06:14] LABS: Alanine Aminotransferase 11 U/L (6-35); Alkaline Phosphatase 59 U/L (38-126); Anion Gap 8 mmol/L (8-16); Aspartate Amino Transferase 13 U/L (14-36); Bilirubin,Total 0.4 mg/dL (0.2-1.3); Blood Urea Nitrogen 72 mg/dL (7-17); Calcium 7.6 mg/dL (8.4-10.2); Carbon Dioxide 35 mmol/L (22-30); Chloride 91 mmol/L (98-107); Estimated CRCL calculation 7 ml/min; Estimated Glomerular Filt Rate 8; Glucose 105 mg/dL (65-110); Potassium 4.3 mmol/L (3.4-5.0); Sodium 134 mmol/L (137-145)
[2022-08-30 06:17] LABS: Vancomycin Random 17.8 ug/mL (10-20)
[2022-08-30 06:24] LABS: Basophils Percent Auto 0.1 % (0.2-1.2); Eosinophils Percent Auto 0.1 % (0-4.4); Hematocrit 33.6 % (37.0-47.0); Hemoglobin 10.2 g/dL (12.0-15.0); Immature Granulocyte Absolute 0.73 K/mm3 (0.00-0.031); Immature Granulocyte Percent A 9.1 % (0-0.5); Lymphocytes Absolute Auto 0.69 K/mm3 (0.9-3.2); Lymphocytes Percent Auto 8.6 % (18.3-44.2); Mean Corpuscular HGB Conc 30.4 g/dl (32-36); Mean Corpuscular Hemoglobin 28.7 pg (26-34); Mean Corpuscular Volume 94.4 fl (80-100); Mean Platelet Volume 10.2 fl (7.4-10.4); Monocytes Percent Auto 12.8 % (2.6-8.5); Neutrophils Absolute Auto 5.6 K/mm3 (1.3-6.7); Neutrophils Percent Auto 69.3 % (45.5-73.1); Nucleated Red Blood Cells Perc 0.2 % (0.0-0.2); Platelet Count Result 251 k/mm3 (150-375); Red Blood Count 3.56 M/mm3 (4.2-5.4); Red Cell Distribution Width 17.7 % (11.5-14.5); White Blood Count 8.1 K/mm3 (4.5-10.0)
--- NOTE | 2022-08-30 06:31 | PCRCNOTE ---
Window of time for administration has passed. See next scheduled administration.
[2022-08-30] MEDS: IPRATROPIUM BR 0.02% INH SOLN 0.5 MG/2.5 ML VIAL INHALATION ×3 (07:35→19:43)
[2022-08-30] MEDS: ALBUTEROL SULFATE NEB 2.5 MG/3 ML INH INHALATION ×3 (07:35→19:43)
[2022-08-30 08:19] LABS: Platelet Estimate Adequate (Adequate); Schistocytes None Seen (NORMAL)
[2022-08-30 08:20] LABS: Anisocytosis 1+ (NORMAL); Hypochromasia 1+ (NORMAL); Poikilocytosis 1+ (NORMAL)
[2022-08-30] MEDS: lisinopriL 20 MG TABLET PO (08:31)
[2022-08-30] MEDS: predniSONE 20 MG TABLET 60 MG PO (08:31)
[2022-08-30] MEDS: amLODIPine BESYLATE 5 MG TABLET 10 MG PO (08:31)
[2022-08-30] MEDS: busPIRone HCL 5 MG TABLET PO ×2 (08:32→17:27)
[2022-08-30] MEDS: busPIRone HCL 2.5 MG TABLET PO ×2 (08:32→17:27)
[2022-08-30] MEDS: FERROUS SULFATE 324 MG TABLET PO ×2 (08:32→17:27)
[2022-08-30] MEDS: SPIRONOLACTONE 12.5 MG TABLET PO (08:32)
[2022-08-30] MEDS: PANTOPRAZOLE SODIUM IV 40 MG VIAL IV PUSH (08:32)
[2022-08-30] MEDS: DOCUSATE SODIUM 100 MG CAPSULE PO ×2 (08:32→21:00)
[2022-08-30] MEDS: HEPARIN SODIUM 5,000 UNITS/ML VIAL 5000 UNITS SUB-Q ×2 (08:32→21:00)
[2022-08-30] MEDS: cloNIDine HCL 0.1 MG TABLET PO ×2 (08:34→21:00)
[2022-08-30] MEDS: BENZONATATE 100 MG CAPSULE 200 MG PO ×3 (08:34→17:27)
[2022-08-30 11:49] LABS: Glucose Point of Care 107 mg/dl (65-105)
[2022-08-30 12:13] LABS: Glucose Point of Care 137 mg/dl (65-105)
--- NOTE | 2022-08-30 13:36 | PM.IMPN ---
Progress Note: A&P Assessment and Plan (1) Acute respiratory failure with hypoxia and hypercarbia: Code(s): J96.01 - Acute respiratory failure with hypoxia; J96.02 - Acute respiratory failure with hypercapnia Status: Acute Assessment and Plan: Acute respiratory failure likely due to COPD, pneumonia, CHF Data: Echo from 04/25 showed an EF of 60-65% with grade 1 diastolic dysfunction, mild valvular disease and moderate pulm HTN Sputum culture 08/25 negative Blood cultures 08/25 NGTD Weaned to 4 L high-flow 08/28, improving, continue nebulizers and antibiotics CXR 08/27 showed worsening pneumonia, but clinically improving PCT 08/28 2.3 CRP improving from 17.5 08/27 to 6.8 08/28 Abx/steroids: Vanc + zosyn + solumedrol started 08/25 Levaquin given 08/25, 08/27, cont vanc + zosyn + levaquin 08/28 Blood cultures 08/25 NGTD Weaned solumedrol to prednisone 60 mg daily 08/28. Treat with Prednisone for 5 days. Plan for IV abx to complete a 7 days course which will be tomorrow. (2) Pneumonia: Code(s): J18.9 - Pneumonia, unspecified organism Status: Acute Assessment and Plan: As above for details (3) Hypothyroidism: Code(s): E03.9 - Hypothyroidism, unspecified Status: Acute Assessment and Plan: TSH was 3.62 on 08/26/22 Cont levothyroxine 100 mcg home dose (4) Hypertension: Code(s): I10 - Essential (primary) hypertension Status: Chronic Assessment and Plan: Patient's blood pressure was reviewed on 08/30 Blood pressure remains well controlled. Will continue current medications. (5) ESRD (end stage renal disease): Code(s): N18.6 - End stage renal disease Status: Chronic Assessment and Plan: ESRD on dialysis, Sunday, Sunday, Sunday, Appreciate nephrology consultation (6) Atrial fibrillation with RVR: Code(s): I48.91 - Unspecified atrial fibrillation Status: Acute Assessment and Plan: Concern that the patient went into Afib with rvr after extra fluid taken off during HD 08/28. She was given metoprolol succinate 25 mg po x 1. Cardiology consulted. Cardiology did not feel patient had AFib. Plan DVT prophylaxis: Heparin SQ Nutrition: Renal diet with thickened liquids Code status DNR Subjective Date/time seen: 08/30/22 13:36 Interval history: 87yo female with ESRD p/w shortness of breath, weakness and hypoxia and found to have pneumonia, acute exacerbation of COPD, hypercapnic respiratory failure requiring BiPAP. She does have chronic resp failure on 3L O2 at home. Assuming care. Chart reviewed. Patient currently undergoing dialysis. Slept well last night. Minimal shortness of breath. No chest pain. Exam Narrative: AF 97.6 139/50 70 18 96% 4L Gen - NARD lying semi-recumbent in bed undergoing HD Chest - mild coarse BS anteriorly and in the flanks CV - RRR S1/S2 Abd - Soft, NT/ND, Positive BS Ext - No pedal edema. LUE accessed for HD Neuro - Alert and appropriate. DIOMEDE Psych - Nml mood and affect Skin - Warm and dry Objective Data Vital Signs Vital Signs: Vital Signs - 24 hr 08/29/22 14:00 08/29/22 15:42 08/29/22 16:00 Temperature Pulse Rate 108 H 77 80 Respiratory Rate 21 H 22 H Blood Pressure Pulse Oximetry Oxygen Delivery Oxygen Flow Rate Fraction of Inspired Oxygen 08/29/22 16:00 08/29/22 16:00 08/29/22 16:00 Temperature 98.8 F Pulse Rate 79 79 Respiratory Rate 25 H Blood Pressure 144/50 H Pulse Oximetry 95 95 Oxygen Delivery Nasal Cannula Oxygen Flow Rate 4 Fraction of Inspired Oxygen 08/29/22 20:43 08/29/22 20:46 08/29/22 20:59 Temperature Pulse Rate 81 84 88 Respiratory Rate 24 H 26 H 24 H Blood Pressure Pulse Oximetry 94 Oxygen Delivery Venturi Mask Oxygen Flow Rate 9 Fraction of Inspired Oxygen 35 08/29/22 20:00 08/29/22 20:00 08/29/22 23:43 Temperature 98.4 F Pulse Rate 83 79 Re
--- NOTE | 2022-08-30 13:42 | PM.PNNEP ---
Progress Note: A&P Assessment and Plan (1) End stage renal disease: Code(s): N18.6 - End stage renal disease Status: Chronic Assessment and Plan: HD today continue M/W/F dialysis schedule while hospitalized follow electrolytes, volume status, and clearance (2) Acute respiratory failure with hypoxia and hypercarbia: Code(s): J96.01 - Acute respiratory failure with hypoxia; J96.02 - Acute respiratory failure with hypercapnia Status: Acute Assessment and Plan: slow/steady improvement noted multifactorial etiology: COPD pneumonia volume overload pulmonary HTN on BiPAP therapy PRN empiric antibiotics, bronchodilators, and steroids fluid removal with dialysis wean supplemental oxygen as tolerated follow respiratory status (3) Pneumonia: Code(s): J18.9 - Pneumonia, unspecified organism Status: Acute Assessment and Plan: as suggestive by CXR follow culture data on antibiotics continue supportive therapy (4) Hypertension: Code(s): I10 - Essential (primary) hypertension Status: Chronic Assessment and Plan: reasonable control continue home medications follow trend of hemodynamics (5) Anemia: Code(s): D64.9 - Anemia, unspecified Status: Chronic Assessment and Plan: due to ESRD Epogen with HD follow H/H (6) Diabetes: Code(s): E11.9 - Type 2 diabetes mellitus without complications Status: Chronic Assessment and Plan: follow accuchecks glycemic control per hospitalists Will continue to follow. Subjective Date/time seen: 08/30/22 13:42 Tolerating dialysis treatment at the time of my visit (seen on HD at ~ 1:30PM); no apparent distress voiced; no other acute complaints to report; breathing/respiratory status seems stable; no other issues/events ovenright or earlier this morning. Exam Narrative: General: elderly chronically ill-appearing female in NAD Heart: normal S1 and S2; no rub Lungs: coarse breath sounds throughout Abdomen: soft, nondistended, positive bowel sounds Extremities: no cyanosis or clubbing; no edema Skin: warm and intact Objective Data Vital Signs Vital Signs: Vital Signs 08/29/22 16:00 08/29/22 16:00 08/29/22 16:00 Temperature 98.8 F Pulse Rate 80 79 Respiratory Rate 22 H 25 H Blood Pressure 144/50 H Pulse Oximetry 95 95 Oxygen Delivery Nasal Cannula Oxygen Flow Rate 4 Fraction of Inspired Oxygen 08/29/22 16:00 08/29/22 20:43 08/29/22 20:46 Temperature Pulse Rate 79 81 84 Respiratory Rate 24 H 26 H Blood Pressure Pulse Oximetry 94 Oxygen Delivery Venturi Mask Oxygen Flow Rate 9 Fraction of Inspired Oxygen 35 08/29/22 20:59 08/29/22 20:00 08/29/22 20:00 Temperature 98.4 F Pulse Rate 88 83 Respiratory Rate 24 H 22 H Blood Pressure 133/70 Pulse Oximetry 97 94 Oxygen Delivery Venturi Mask Oxygen Flow Rate 9 Fraction of Inspired Oxygen 35 08/29/22 23:43 08/29/22 23:58 08/30/22 00:00 Temperature 97.6 F Pulse Rate 79 81 81 Respiratory Rate 25 H 24 H 18 Blood Pressure 125/52 L Pulse Oximetry 94 Oxygen Delivery Oxygen Flow Rate Fraction of Inspired Oxygen 08/30/22 05:47 08/30/22 07:37 08/30/22 07:37 Temperature 97.6 F Pulse Rate 71 70 70 Respiratory Rate 24 H 18 18 Blood Pressure 139/50 L Pulse Oximetry 100 98 Oxygen Delivery Nasal Cannula Oxygen Flow Rate 4 Fraction of Inspired Oxygen 36 08/30/22 08:00 08/30/22 09:25 08/30/22 13:52 Temperature Pulse Rate Respiratory Rate Blood Pressure Pulse Oximetry 94 96 97 Oxygen Delivery Nasal Cannula Nasal Cannula Nasal Cannula Oxygen Flow Rate 3 3 2 Fraction of Inspired Oxygen 08/30/22 13:00 08/30/22 13:03 08/30/22 13:20 Temperature Pulse Rate 70 69 Respiratory Rate Blood Pressure 129/46 L 133/57 L Pulse Oximetry Oxygen Delivery Oxy
--- NOTE | 2022-08-30 13:42 | P.PNNP_ITS ---
Progress Note: A&P Assessment and Plan (1) End stage renal disease: Code(s): N18.6 - End stage renal disease Status: Chronic Assessment and Plan: * HD today * continue M/W/F dialysis schedule while hospitalized * follow electrolytes, volume status, and clearance (2) Acute respiratory failure with hypoxia and hypercarbia: Code(s): J96.01 - Acute respiratory failure with hypoxia; J96.02 - Acute respiratory failure with hypercapnia Status: Acute Assessment and Plan: * slow/steady improvement noted * multifactorial etiology: * COPD * pneumonia * volume overload * pulmonary HTN * on BiPAP therapy PRN * empiric antibiotics, bronchodilators, and steroids * fluid removal with dialysis * wean supplemental oxygen as tolerated * follow respiratory status (3) Pneumonia: Code(s): J18.9 - Pneumonia, unspecified organism Status: Acute Assessment and Plan: * as suggestive by CXR * follow culture data * on antibiotics * continue supportive therapy (4) Hypertension: Code(s): I10 - Essential (primary) hypertension Status: Chronic Assessment and Plan: * reasonable control * continue home medications * follow trend of hemodynamics (5) Anemia: Code(s): D64.9 - Anemia, unspecified Status: Chronic Assessment and Plan: * due to ESRD * Epogen with HD * follow H/H (6) Diabetes: Code(s): E11.9 - Type 2 diabetes mellitus without complications Status: Chronic Assessment and Plan: * follow accuchecks * glycemic control per hospitalists Will continue to follow. Subjective Date/time seen: 08/30/22 13:42 Tolerating dialysis treatment at the time of my visit (seen on HD at ~ 1:30PM); no apparent distress voiced; no other acute complaints to report; breathing/respiratory status seems stable; no other issues/events ovenright or earlier this morning. Exam Narrative: General: elderly chronically ill-appearing female in NAD Heart: normal S1 and S2; no rub Lungs: coarse breath sounds throughout Abdomen: soft, nondistended, positive bowel sounds Extremities: no cyanosis or clubbing; no edema Skin: warm and intact Objective Data Vital Signs Vital Signs: Vital Signs 08/29/22 16:00 08/29/22 16:00 08/29/22 16:00 Temperature 98.8 F Pulse Rate 80 79 Respiratory Rate 22 H 25 H Blood Pressure 144/50 H Pulse Oximetry 95 95 Oxygen Delivery Nasal Cannula Oxygen Flow Rate 4 Fraction of Inspired Oxygen 08/29/22 16:00 08/29/22 20:43 08/29/22 20:46 Temperature Pulse Rate 79 81 84 Respiratory Rate 24 H 26 H Blood Pressure Pulse Oximetry 94 Oxygen Delivery Venturi Mask Oxygen Flow Rate 9 Fraction of Inspired Oxygen 35 08/29/22 20:59 08/29/22 20:00 08/29/22 20:00 Temperature 98.4 F Pulse Rate 88 83 Respiratory Rate 24 H 22 H Blood Pressure 133/70 Pulse Oximetry 97 94 Oxygen Delivery Venturi Mask Oxygen Flow Rate 9 Fraction of Inspired Oxygen 35 08/29/22 23:43 08/29/22 23:58 08/30/22 00:00
[2022-08-30 16:36] LABS: Glucose Point of Care 151 mg/dl (65-105)
[2022-08-30] MEDS: SODIUM CHLORIDE 0.9% IV 1,000 ML 999 ML IV CONT (17:34)
[2022-08-30] MEDS: HEPARIN SODIUM 1,000 UNITS/ML VIAL 1000 UNITS (17:36)
[2022-08-30] MEDS: ATORVASTATIN 20 MG TABLET PO (21:00)
[2022-08-30] MEDS: LATANOPROST 0.005% OP SOLN 2.5 ML BTL 1 DROP EACH EYE (21:00)
[2022-08-31] VITALS (11 sets, daily range): BP systolic 118–130; BP diastolic 44–46; PULSE 58–80; RESP 16–22; TEMP 36.1–36.6; O2SAT 94–99
[2022-08-31 00:07] LABS: Glucose Point of Care 178 mg/dl (65-105)
[2022-08-31] MEDS: ALBUTEROL SULFATE NEB 2.5 MG/3 ML INH INHALATION ×5 (00:41→19:45)
[2022-08-31] MEDS: IPRATROPIUM BR 0.02% INH SOLN 0.5 MG/2.5 ML VIAL INHALATION ×5 (00:41→19:46)
[2022-08-31] MEDS: PIPERACILLIN/TAZ 2.25G/NS 50ML 2.25 GM/50 ML BAG IVPB ×2 (06:02→13:05)
[2022-08-31] MEDS: LEVOTHYROXINE SODIUM 100 MCG TABLET PO (06:03)
[2022-08-31 06:29] LABS: Basophils Absolute Auto 0.1 K/mm3 (0.0-0.1); Basophils Percent Auto 0.8 % (0.2-1.2); Eosinophils Percent Auto 0.1 % (0-4.4); Hematocrit 35.7 % (37.0-47.0); Hemoglobin 10.6 g/dL (12.0-15.0); Immature Granulocyte Absolute 0.65 K/mm3 (0.00-0.031); Immature Granulocyte Percent A 6.9 % (0-0.5); Lymphocytes Absolute Auto 0.67 K/mm3 (0.9-3.2); Lymphocytes Percent Auto 7.1 % (18.3-44.2); Mean Corpuscular HGB Conc 29.7 g/dl (32-36); Mean Corpuscular Hemoglobin 28.9 pg (26-34); Mean Corpuscular Volume 97.3 fl (80-100); Mean Platelet Volume 10.3 fl (7.4-10.4); Monocytes Absolute Auto 0.7 K/mm3 (0.1-0.6); Monocytes Percent Auto 7.7 % (2.6-8.5); Neutrophils Absolute Auto 7.3 K/mm3 (1.3-6.7); Neutrophils Percent Auto 77.4 % (45.5-73.1); Platelet Count Result 222 k/mm3 (150-375); Red Blood Count 3.67 M/mm3 (4.2-5.4); Red Cell Distribution Width 17.9 % (11.5-14.5); White Blood Count 9.5 K/mm3 (4.5-10.0)
[2022-08-31 06:43] LABS: Glucose Point of Care 92 mg/dl (65-105)
[2022-08-31 06:44] LABS: Alanine Aminotransferase 10 U/L (6-35); Albumin Level 3.2 g/dL (3.5-5.1); Alkaline Phosphatase 60 U/L (38-126); Anion Gap 6 mmol/L (8-16); Aspartate Amino Transferase 13 U/L (14-36); Bilirubin,Total 0.4 mg/dL (0.2-1.3); Blood Urea Nitrogen 36 mg/dL (7-17); Carbon Dioxide 32 mmol/L (22-30); Chloride 100 mmol/L (98-107); Estimated CRCL calculation 10 ml/min; Estimated Glomerular Filt Rate 12; Glucose 95 mg/dL (65-110); Potassium 4.2 mmol/L (3.4-5.0); Sodium 138 mmol/L (137-145)
[2022-08-31 06:59] LABS: Platelet Estimate Adequate (Adequate); Schistocytes None Seen (NORMAL)
[2022-08-31 07:00] LABS: Poikilocytosis 1+ (NORMAL); Tear Drop Cells 1+ (NORMAL)
[2022-08-31 07:38] LABS: Glucose Point of Care 90 mg/dl (65-105)
[2022-08-31] MEDS: busPIRone HCL 2.5 MG TABLET PO ×2 (08:47→18:01)
[2022-08-31] MEDS: predniSONE 20 MG TABLET 40 MG PO (08:47)
[2022-08-31] MEDS: BENZONATATE 100 MG CAPSULE 200 MG PO ×3 (08:47→18:01)
[2022-08-31] MEDS: busPIRone HCL 5 MG TABLET PO ×2 (08:48→18:01)
[2022-08-31] MEDS: FERROUS SULFATE 324 MG TABLET PO ×2 (08:48→18:01)
[2022-08-31] MEDS: cloNIDine HCL 0.1 MG TABLET PO ×2 (08:48→21:05)
[2022-08-31] MEDS: amLODIPine BESYLATE 5 MG TABLET 10 MG PO (08:48)
[2022-08-31] MEDS: DOCUSATE SODIUM 100 MG CAPSULE PO ×2 (08:48→21:05)
[2022-08-31] MEDS: MUPIROCIN 2% OINT 22 GM TUBE 1 APPLIC EACH NARE (08:49)
[2022-08-31] MEDS: SPIRONOLACTONE 12.5 MG TABLET PO (08:49)
[2022-08-31] MEDS: lisinopriL 20 MG TABLET PO (08:49)
[2022-08-31] MEDS: PANTOPRAZOLE SODIUM IV 40 MG VIAL IV PUSH (08:49)
[2022-08-31] MEDS: HEPARIN SODIUM 5,000 UNITS/ML VIAL 5000 UNITS SUB-Q ×2 (08:49→21:06)
[2022-08-31] MEDS: levoFLOXacin 500 MG/D5W 100 ML 500 MG/100 ML BAG 100 MG IVPB (08:51)
--- NOTE | 2022-08-31 10:31 | PCCCNOTE ---
On 08/31/22, the student, [Marti Lemon], provided care and completed [facility] documentation on this patient. I have reviewed the student's documentation and agree with the findings.
[2022-08-31 11:27] LABS: Glucose Point of Care 168 mg/dl (65-105)
--- NOTE | 2022-08-31 12:10 | P.PNNP_ITS ---
Progress Note: A&P Assessment and Plan (1) End stage renal disease: Code(s): N18.6 - End stage renal disease Status: Chronic Assessment and Plan: * HD tomorrow * continue M/W/F dialysis schedule while hospitalized * follow electrolytes, volume status, and clearance (2) Acute respiratory failure with hypoxia and hypercarbia: Code(s): J96.01 - Acute respiratory failure with hypoxia; J96.02 - Acute respiratory failure with hypercapnia Status: Acute Assessment and Plan: * slow/steady improvement noted * multifactorial etiology: * COPD * pneumonia * volume overload * pulmonary HTN * on BiPAP therapy PRN * empiric antibiotics, bronchodilators, and steroids * fluid removal with dialysis * wean supplemental oxygen as tolerated * follow respiratory status (3) Pneumonia: Code(s): J18.9 - Pneumonia, unspecified organism Status: Acute Assessment and Plan: * as suggestive by CXR * follow culture data * on antibiotics * continue supportive therapy (4) Hypertension: Code(s): I10 - Essential (primary) hypertension Status: Chronic Assessment and Plan: * reasonable control * continue home medications * follow trend of hemodynamics (5) Anemia: Code(s): D64.9 - Anemia, unspecified Status: Chronic Assessment and Plan: * due to ESRD * Epogen with HD * follow H/H (6) Diabetes: Code(s): E11.9 - Type 2 diabetes mellitus without complications Status: Chronic Assessment and Plan: * follow accuchecks * glycemic control per hospitalists Will continue to follow. Subjective Date/time seen: 08/31/22 12:10 Tolerated dialysis treatment yesterday without any issues or problems; respiratory status seems stable if not better; no apparent distress noted on my visit. Exam Narrative: General: elderly chronically ill-appearing female in NAD Heart: normal S1 and S2; no rub Lungs: coarse breath sounds noted Abdomen: soft, nondistended, positive bowel sounds Extremities: no cyanosis or clubbing; no edema Skin: no rash or nodules Objective Data Vital Signs Vital Signs: Vital Signs Temp Pulse Resp BP Pulse Ox O2 Del Method O2 Flow Rate 08/31/22 11:19 16 08/31/22 11:02 68 16 08/31/22 07:55 58 L 16 08/31/22 07:49 99 Nasal Cannula 3 08/31/22 07:43 62 16 08/31/22 05:36 98 F 71 22 H 129/44 L 98 08/31/22 00:43 80 18 08/30/22 22:00 98 F 55 L 24 H 148/41 H 96 08/30/22 19:48 84 22 H 95 Nasal Cannula 3 08/30/22 19:47 95 18 08/30/22 16:40 98.1 F 56 L 20 136/45 L 08/30/22 16:35 63 134/52 L 08/30/22 16:20 65 115/43 L 08/30/22 16:00 70 126/48 L 08/30/22 15:40 69 108/42 L 08/30/22 15:20 66 127/42 L Intake/Output Intake/Output: Intake & Output 08/28/22 08/29/22 08/30/22 08/31/22 23:59 23:59 23:59 23:59 Intake Total 1300 1690 1540 1320 Output Total 2510 30 2515 15 Balance -1210 1660 -975 1305 Meds/Results Medications: Active Medications Generic
--- NOTE | 2022-08-31 12:10 | PM.PNNEP ---
Progress Note: A&P Assessment and Plan (1) End stage renal disease: Code(s): N18.6 - End stage renal disease Status: Chronic Assessment and Plan: HD tomorrow continue M/W/F dialysis schedule while hospitalized follow electrolytes, volume status, and clearance (2) Acute respiratory failure with hypoxia and hypercarbia: Code(s): J96.01 - Acute respiratory failure with hypoxia; J96.02 - Acute respiratory failure with hypercapnia Status: Acute Assessment and Plan: slow/steady improvement noted multifactorial etiology: COPD pneumonia volume overload pulmonary HTN on BiPAP therapy PRN empiric antibiotics, bronchodilators, and steroids fluid removal with dialysis wean supplemental oxygen as tolerated follow respiratory status (3) Pneumonia: Code(s): J18.9 - Pneumonia, unspecified organism Status: Acute Assessment and Plan: as suggestive by CXR follow culture data on antibiotics continue supportive therapy (4) Hypertension: Code(s): I10 - Essential (primary) hypertension Status: Chronic Assessment and Plan: reasonable control continue home medications follow trend of hemodynamics (5) Anemia: Code(s): D64.9 - Anemia, unspecified Status: Chronic Assessment and Plan: due to ESRD Epogen with HD follow H/H (6) Diabetes: Code(s): E11.9 - Type 2 diabetes mellitus without complications Status: Chronic Assessment and Plan: follow accuchecks glycemic control per hospitalists Will continue to follow. Subjective Date/time seen: 08/31/22 12:10 Tolerated dialysis treatment yesterday without any issues or problems; respiratory status seems stable if not better; no apparent distress noted on my visit. Exam Narrative: General: elderly chronically ill-appearing female in NAD Heart: normal S1 and S2; no rub Lungs: coarse breath sounds noted Abdomen: soft, nondistended, positive bowel sounds Extremities: no cyanosis or clubbing; no edema Skin: no rash or nodules Objective Data Vital Signs Vital Signs: Vital Signs Temp Pulse Resp BP Pulse Ox O2 Del Method O2 Flow Rate 08/31/22 11:19 16 08/31/22 11:02 68 16 08/31/22 07:55 58 L 16 08/31/22 07:49 99 Nasal Cannula 3 08/31/22 07:43 62 16 08/31/22 05:36 98 F 71 22 H 129/44 L 98 08/31/22 00:43 80 18 08/30/22 22:00 98 F 55 L 24 H 148/41 H 96 08/30/22 19:48 84 22 H 95 Nasal Cannula 3 08/30/22 19:47 95 18 08/30/22 16:40 98.1 F 56 L 20 136/45 L 08/30/22 16:35 63 134/52 L 08/30/22 16:20 65 115/43 L 08/30/22 16:00 70 126/48 L 08/30/22 15:40 69 108/42 L 08/30/22 15:20 66 127/42 L Intake/Output Intake/Output: Intake & Output 08/28/22 08/29/22 08/30/22 08/31/22 23:59 23:59 23:59 23:59 Intake Total 1300 1690 1540 1320 Output Total 2510 30 2515 15 Balance -1210 1660 -975 1305 Meds/Results Medications: Active Medications Generic Name Dose Route Start Last Admin Trade Name Freq PRN Reason Stop Dose Admin Albuterol 2.5 mg 08/25/22 16:00 08/31/22 11:00 Albuterol Sulfate Neb 2.5 Mg/3 Ml Inh INHALATION 2.5 mg Q4HRT LAUREN Administration Albuterol 2.5 mg 08/26/22 18:33 08/26/22 20:03 Albuterol Sulfate Neb 2.5 Mg/3 Ml Inh INHALATION 2.5 mg Q2HRT PRN Administration Shortness Of Breath Amlodipine Besylate 10 mg 08/27/22 13:00 08/31/22 08:48 Amlodipine Besylate 5 Mg Tablet PO 10 mg QAM LAUREN Administration Atorvastatin Calcium 20 mg 08/27/22 21:00 08/30/22 21:00 Atorvastatin 20 Mg Tablet PO 20 mg HS LAUREN Administration Benzonatate 200 mg 08/26/22 21:00 08/31/22 13:04 Benzonatate 100 Mg Capsule PO 200 mg TID LAUREN Administration Buspirone HCl 5 mg 08/27/22 17:00 08/31/22 08:48 Buspirone Hcl 5 Mg Tablet PO 5 mg BI
--- NOTE | 2022-08-31 13:02 | PM.DS ---
DS: Admitting Diagnosis Discharge Date 08/31/22 Admitting Diagnosis Shortness of breath DS: Discharge Diagnosis Discharge Diagnosis (1) Acute respiratory failure with hypoxia and hypercarbia: Code(s): J96.01 - Acute respiratory failure with hypoxia; J96.02 - Acute respiratory failure with hypercapnia Status: Acute (2) Pneumonia: Code(s): J18.9 - Pneumonia, unspecified organism Status: Acute (3) Hypothyroidism: Code(s): E03.9 - Hypothyroidism, unspecified Status: Acute (4) Hypertension: Code(s): I10 - Essential (primary) hypertension Status: Chronic (5) ESRD (end stage renal disease): Code(s): N18.6 - End stage renal disease Status: Chronic (6) CHF exacerbation: Code(s): I50.9 - Heart failure, unspecified Status: Acute DS: Summary Hospital Course Reason for hospitalization: 87yo female with ESRD p/w shortness of breath, weakness and hypoxia and found to have pneumonia, acute exacerbation of COPD, hypercapnic respiratory failure requiring BiPAP. She does have chronic resp failure on 3L O2 at home. Please see H&P for details. Hospital Course: Patient presents with complaints of shortness of breath and found to have acute respiratory failure. Chest x-ray showed cardiomegaly with pulmonary vascular congestion mild pulmonary edema. She also had a dense airspace opacities right mid and lower lung concerning for pneumonia. [place] that her respiratory failure was related to acute diastolic CHF and right lower lobe and right middle lobe pneumonia. She also was felt to have a COPD exacerbation. She was treated with broad-spectrum IV antibiotics and completed 7 day course of this. She was started on Solu-Medrol and has been transitioned to prednisone. She has significant hypoxia but this has improved and she has been weaned down to her baseline 3 L oxygen requirement. Nephrology was consulted and we continued dialysis to control her fluid status. She was briefly in the ICU. Cardiology did see her as well for possible atrial fibrillation by social worker clinical did not feel this was the case. Repeat chest x-ray showed improvement in the pulmonary edema without significant change in the right lung base airspace disease. Blood cultures were negative. Urine culture was negative. Sputum cultures negative. MRSA nasal swab was positive. She was treated with 7 days IV vancomycin which should cover for this. Will do Bactroban to the nares to decrease colonization. Patient overall did well and was able be discharged back to the senior living on 08/31/2022. Status at Discharge Cognitive/behavioral status at discharge: stable Time Spent with Patient Time attestation: Total time spent providing and/or coordinating discharge services: 35 minutes Exam Narrative: AF 98.0 129/44 68 16 99% 3L Gen - NARD lying semi-recumbent in bed Chest - right base inspiratory crackles o/w distant clear BS, nml RR CV - RRR S1/S2 with occasional extra beat Abd - Soft, ND, +BS, mild epigastric pain but no guarding or rebound Ext - No pedal edema. LUE thrill and bruit Psych - Nml mood and affect Skin - Warm and dry DS: Data Data Completed and Pending Labs on day of discharge: Labs from last 24 hours 08/31/22 08/31/22 08/31/22 11:10 07:24 06:41 WBC RBC Hgb Hct MCV MCH MCHC RDW Plt Count MPV Immature Gran % (Auto) Neut % (Auto) Lymph % (Auto) Dixon % (Auto) Eos % (Auto) Baso % (Auto) Lymph # (Auto) Dixon # (Auto) Eos # (Auto) Baso # (Auto) Abs Immat Gran (auto) Absolute Neuts (auto) Absolute Nucleated RBC Nucleated RBC % Platelet Estimate Poikilocytosis Tear Drop Cells Schistocytes Sodium Potassium Chloride Carbon Dioxide Anion Gap BUN Creatinine Estim Creat Clear Calc Estimated GFR Glucose POC Capillary Glucose 168 H 90
[2022-08-31 14:42] LABS: EDCOVIDSCREEN Negative (Negative)
[2022-08-31 16:18] LABS: Glucose Point of Care 215 mg/dl (65-105)
[2022-08-31] MEDS: INSULIN ASPART (*BKC) 100 UNITS/ML SUB-Q (18:02)
[2022-08-31] MEDS: ATORVASTATIN 20 MG TABLET PO (21:06)
== END 2022-08-31 21:45 | DRG 193 ==
LOC: ANHED 11:24 → ANHICU 12:42 → ANH3MEDSUR 08-30 00:11
PROVIDERS: Internal Medicine; Internal Medicine Nephrology; Internal Medicine Pulmonary Disease; Physician Assistant; Specialist; Student in an Organized Health Care Education/Training Program; Admitting Provider Internal Medicine; Emergency Provider Physician Assistant; PCP Internal Medicine; Visit Provider Internal Medicine
DX: J18.9 Pneumonia, unspecified organism (principal); I50.33 Acute on chronic diastolic (congestive) heart failure; J96.21 Acute and chronic respiratory failure with hypoxia; N18.6 End stage renal disease; J96.22 Acute and chronic respiratory failure with hypercapnia; I13.2 Hypertensive heart and chronic kidney disease with heart failure and with stage 5 chronic kidney disease, or end stage renal disease; J44.0 Chronic obstructive pulmonary disease with (acute) lower respiratory infection; J44.1 Chronic obstructive pulmonary disease with (acute) exacerbation; Z20.822 Contact with and (suspected) exposure to COVID-19; E03.9 Hypothyroidism, unspecified; F03.90 Unspecified dementia, unspecified severity, without behavioral disturbance, psychotic disturbance, mood disturbance, and anxiety; K21.9 Gastro-esophageal reflux disease without esophagitis; M19.90 Unspecified osteoarthritis, unspecified site; D63.1 Anemia in chronic kidney disease; N25.0 Renal osteodystrophy; Z22.322 Carrier or suspected carrier of Methicillin resistant Staphylococcus aureus; E78.5 Hyperlipidemia, unspecified; H40.9 Unspecified glaucoma; Z66 Do not resuscitate; Z99.2 Dependence on renal dialysis; Z86.16 Personal history of COVID-19; Z87.891 Personal history of nicotine dependence; Z99.81 Dependence on supplemental oxygen
CPT/HCPCS: 36415; 36569; 36600; 71045; 80048; 80053; 80069; 80076; 80202; 81001; 82375; 82805; 82948; 83036; 83050; 83605; 83735; 83880; 84100; 84145; 84443; 84484; 85025; 85610; 85730; 86140; 86704; 86706; 86738; 87040; 87070; 87081; 87086; 87205; 87340; 87426; 93005; 94002; 94640; 94667; 96365; 96375; 99285; A9270; C1751; C9113; C9803; G0257; J0360; J1644; J1815; J1956; J2543; J2920; J2930; J3370; J7030; J7512; Q5105; U0003; U0005

== ENCOUNTER 2022-10-25 15:33 | Observation (INO) | payer MEDICARE, MEDICAID, SELFPAY ==
[2022-10-25] VITALS (26 sets, daily range): BP systolic 97–167; BP diastolic 34–83; PULSE 65–79; RESP 16–26; TEMP 35.7–36.6; O2SAT 92–100
--- NOTE | ~2022-10-25 | XR_ITS ---
EXAMINATION: XR chest 1V portable DATE: 10/28/2022 08:55 INDICATION: Shortness of breath. TECHNIQUE: A single frontal view of the chest was obtained. COMPARISON: Chest single view 10/25/2022, CT abdomen and pelvis 06/14/2022 FINDINGS: The patient is rotated to her right. There are airspace opacities in right mid and lower deisy ng zones. There is a small right pleural effusion. No pneumothorax. Cardiomegaly is noted. IMPRESSION: 1. Stable airspace opacities in right mid and lower lung zones, consistent with atelectasis versus pn eumonia. 2. Stable small right pleural effusion. 3. Cardiomegaly. Reviewed, dictated and finalized at location A. IMPRESSION: 1. Stable airspace opacities in right mid and lower lung zones, consistent with atelectasis versus pneumonia. 2. Stable small right pleural effusion. 3. Cardiomegaly.
--- NOTE | ~2022-10-25 | XR_ITS ---
EXAMINATION: XR chest 1V portable DATE: 10/25/2022 16:27 INDICATION: Shortness of breath TECHNIQUE: frontal view of the chest was obtained. COMPARISON: Chest radiograph dated 08/27/2022 FINDINGS: Skinfold projects over the lateral right lower lung zone. Again seen is pulmonary vascular congestion with mild increased interstitial pattern at the lung bases consistent with mild pulmonary edema, dec reased since the prior study. Blunting at the right costophrenic angle consistent with small right pl eural effusion. No pneumothorax. Cardiomegaly. Atherosclerotic thoracic aorta. Metallic clip in the r egion of the proximal stomach. IMPRESSION: 1. Pulmonary vascular congestion and increased interstitial pattern at the bilateral lower lung zones and would favor congestive heart failure related mild pulmonary edema over pneumonia. 2. Small right pleural effusion. 3. Cardiomegaly. Reviewed, dictated and finalized at location A. IMPRESSION: 1. Pulmonary vascular congestion and increased interstitial pattern at the bila teral lower lung zones and would favor congestive heart failure related mild pu lmonary edema over pneumonia. 2. Small right pleural effusion. 3. Cardiomegaly.
--- NOTE | ~2022-10-25 | XR_ITS ---
EXAMINATION: XR small bowel follow through DATE: 10/27/2022 15:51 INDICATION: Anemia TECHNIQUE: Laundry Washer radiograph(s) of the abdomen was/were obtained. Oral contrast was administered, and sequential radiographs of the abdomen were obtained until oral contrast was noted to be in the proxi mal colon. 8 overhead radiographs and 18 fluoroscopic spot images of the small bowel were obtained. F luoroscopy exposure time was 0.5 minutes. COMPARISON: None. FINDINGS: Again seen is a small calcified nodule projecting over the right lower quadrant. Scattered atheroscle rotic calcifications along the aorta and bilateral renal and iliac arteries. Internal fixation at the visual is proximal right femur. Transit time from the stomach to proximal colon was approximately 1 hour and 45 minutes. There is normal caliber and mucosal fold pattern throughout the small bowel. Te rminal ileum is normal. No tethering or abnormal mass effect observed upon the small bowel with real -time fluoroscopy. IMPRESSION: 1. Unremarkable small bowel follow-through. Reviewed, dictated and finalized at location A.
--- NOTE | 2022-10-25 16:05 | ECG_ITS ---
Measurements Intervals [place] Rate: 74 P: -65 NM: 184 QRS: -25 QRSD: 126 T: 115 QT: 411 QTc: 456 Interpretive Statements SINUS RHYTHM ATRIAL PREMATURE COMPLEXES INTRAVENTRICULAR CONDUCTION DELAY LEFT VENTRICULAR HYPERTROPHY AND ST-T CHANGE BASELINE ARTIFACT- I, II, III, AVR, AVL, V5 BORDERLINE ECG COMPARED TO ECG 08/28/2022 12:23:31 SINUS RHYTHM NOW PRESENT Electronically Signed On 10-25-2022 16:06:38 CDT by Kendrick Frances D.O.
--- NOTE | 2022-10-25 16:12 | PC.NURSE ---
pts son daniela keyelke contacted and made aware of pts status. requests to be contacted when all results back. [facility] contacted to obtain records. states will fax info
[2022-10-25 16:46] LABS: Basophils Percent Auto 0.6 % (0.2-1.2); Eosinophils Absolute Auto 0.6 K/mm3 (0-0.3); Eosinophils Percent Auto 8.8 % (0-4.4); Hematocrit 23.5 % (37.0-47.0); Immature Granulocyte Absolute 0.05 K/mm3 (0.00-0.031); Immature Granulocyte Percent A 0.7 % (0-0.5); Lymphocytes Absolute Auto 0.88 K/mm3 (0.9-3.2); Lymphocytes Percent Auto 13.1 % (18.3-44.2); Mean Corpuscular HGB Conc 29.4 g/dl (32-36); Mean Corpuscular Hemoglobin 30.5 pg (26-34); Mean Platelet Volume 10.5 fl (7.4-10.4); Monocytes Absolute Auto 0.7 K/mm3 (0.1-0.6); Neutrophils Absolute Auto 4.5 K/mm3 (1.3-6.7); Neutrophils Percent Auto 66.8 % (45.5-73.1); Platelet Count Result 207 k/mm3 (150-375); Red Blood Count 2.26 M/mm3 (4.2-5.4); White Blood Count 6.7 K/mm3 (4.5-10.0)
[2022-10-25 16:59] LABS: Alanine Aminotransferase 10 U/L (6-35); Alkaline Phosphatase 69 U/L (38-126); Anion Gap 4 mmol/L (8-16); Aspartate Amino Transferase 17 U/L (14-36); Bilirubin,Total 0.3 mg/dL (0.2-1.3); Blood Urea Nitrogen 18 mg/dL (7-17); Calcium 7.9 mg/dL (8.4-10.2); Carbon Dioxide 38 mmol/L (22-30); Chloride 93 mmol/L (98-107); Estimated CRCL calculation 15 ml/min; Estimated Glomerular Filt Rate 21; Glucose 105 mg/dL (65-110); Potassium 3.7 mmol/L (3.4-5.0); Sodium 135 mmol/L (137-145)
[2022-10-25 17:01] LABS: Hemoglobin 6.9 g/dL (12.0-15.0)
[2022-10-25 17:02] LABS: Platelet Estimate Adequate (Adequate)
[2022-10-25 17:03] LABS: Anisocytosis 2+ (NORMAL); Hypochromasia 1+ (NORMAL); Schistocytes None Seen (NORMAL)
[2022-10-25 17:04] LABS: Microcytosis 1+ (NORMAL)
--- NOTE | 2022-10-25 17:17 | ED.SOB ---
HPI - SOB/Dyspnea General Chief Complaint: Shortness of Breath/Dyspnea <Yamel Gaines PA-C - Last Filed: 10/26/22 00:33> Stated Complaint: sob <Yamel Gaines PA-C - Last Filed: 10/26/22 00:33> Time Seen by Provider: 10/25/22 16:54 <Yamel Gaines PA-C - Last Filed: 10/26/22 00:33> History of Present Illness HPI Narrative: 87-year-old female with a history of ESRD, chronic hypoxemic respiratory failure on 2 to 3 L nasal cannula here for evaluation of acute on chronic shortness of breath after finishing her dialysis treatment today. According to [facility] staff they had a hard time keeping her O2 sats above 90. She received a duo-neb treatment en route and her dyspnea has improved slightly. Patient states that she currently just feels fatigued but her shortness of breath has improved after receiving nebulizer treatment. Currently on 4 L nasal cannula. In the past, patient has been admitted to the setting of anemia with Hemoccult positive stools, has underwent numerous EGDs and colonoscopies that have never showed a GI source. EGD from Jul showed Schatzki's rings, gastric polyps, duodenal polyps, and hiatal hernia without evidence of bleeding.?Colonoscopy from May showed diverticulosis without active bleeding. <Yamel Gaines PA-C - Last Filed: 10/26/22 00:33> Related Data Home Medications: Home Medications Medication Instructions Recorded Confirmed atorvastatin 20 mg tablet 20 mg PO HS 06/22/21 08/25/22 ergocalciferol (vitamin D2) 1,250 50,000 unit PO WEEKLY 06/22/21 08/25/22 mcg (50,000 unit) capsule latanoprost 0.005 % eye drops 1 drp EACH EYE HS 06/22/21 08/25/22 spironolactone 25 mg tablet 12.5 mg PO DAILY 06/22/21 08/25/22 acetaminophen 650 mg tablet 650 mg PO Q6H PRN Pain (Scale 07/21/22 08/25/22 Score 1-3) buspirone 7.5 mg tablet 7.5 mg PO BID 07/21/22 08/25/22 omeprazole 20 mg capsule,delayed 20 mg PO DAILY 07/21/22 08/25/22 release <Yamel Gaines PA-C - Last Filed: 10/26/22 00:33> Allergies/Adverse Reactions: Allergies Allergy/AdvReac Type Severity Reaction Status Date / Time adhesive tape Allergy Unknown PLASTIC Verified 08/27/22 11:36 TAPE hydrochlorothiazide Allergy Unknown Verified 07/21/22 11:04 latex Allergy Rash Verified 05/04/22 07:47 <Yamel Gaines PA-C - Last Filed: 10/26/22 00:33> Review of Systems Review of Systems: Gen: Reports weakness Eyes: Denies eye pain or visual change ENT: Denies congestion Respiratory: Denies shortness of breath or cough CV: Denies chest pain or palpitations GI: Denies abdominal pain nausea, emesis or diarrhea : denies burning, urgency, frequency or hematuria Musculoskeletal: Denies back pain or muscle pain Neuro: Denies numbness, tingling, weakness or focal weakness Skin: Denies rash Except as documented, all other systems reviewed and negative <Yamel Gaines PA-C - Last Filed: 10/26/22 00:33> [facility] Past Medical History Medical History: Medical History Chronic anemia Chronic obstructive pulmonary disease Chronic respiratory failure with hypoxia On 2 to 3 liters nasal cannula. COVID-19 (06/2021) Diastolic dysfunction End-stage renal disease on hemodialysis Erythropoietin deficiency anemia Gastroesophageal reflux disease Glaucoma Hyperlipidemia Hypertension Hypothyroidism Osteoarthritis Pulmonary hypertension Renal osteodystrophy Type 2 diabetes mellitus Vitamin D deficiency <Yamel Gaines PA-C - Last Filed: 10/26/22 00:33> Surgical History Surgical History: Surgical History Status post creation of arteriovenous fistula Left upper extremity. <Yamel Gaines PA-C - Last Filed: 10/26/22 00:33> Family History Family History: Family History (Reviewed 08/25/22 @ 13:43 by Amanda Myles
[2022-10-25 19:07] LABS: NT Pro B Type Natriuretic Pept 7930 pg/mL (19.9-100)
--- NOTE | 2022-10-25 19:53 | PM.IMHP ---
H&P: HPI History of Present Illness Date/Time: 10/25/22 19:53 Chief Complaint: 87 years old female with past medical history of ESRD chronic respiratory failure hypertension patient has worsening shortness of breath after finishing her dialysis treatment today patient is poor historian history was taken from the ER records patient has chronic respiratory failure on 2 L of oxygen currently on 4 L of oxygen chest x-ray shows congestion/ pulmonary edema mild hemoglobin was 6.8 occult blood was positive had multiple EGDs in the past showed Schatzki ring gastric polyp duodenal polyp hiatus hernia without evidence bleeding GI was consulted nephrology was consulted patient was started on IV diuresis monitor H&H telemonitor transfuse to keep hemoglobin above 7 Review of Systems Review of Systems: history limited [facility] Past Medical History Medical History Chronic anemia Chronic obstructive pulmonary disease Chronic respiratory failure with hypoxia On 2 to 3 liters nasal cannula. COVID-19 (06/2021) Diastolic dysfunction End-stage renal disease on hemodialysis Erythropoietin deficiency anemia Gastroesophageal reflux disease Glaucoma Hyperlipidemia Hypertension Hypothyroidism Osteoarthritis Pulmonary hypertension Renal osteodystrophy Type 2 diabetes mellitus Vitamin D deficiency Surgical History Surgical History Status post creation of arteriovenous fistula Left upper extremity. Family History Family History Other Diabetes mellitus Hypertension Social History Social History Social History: Surrogate decision maker: Amy Contreras, son. Code status: Do not resuscitate. 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 Spiritual care concerns: No Meds Home Medications and Allergies Home Medications Medication Instructions Recorded Confirmed Type atorvastatin 20 mg tablet 20 mg PO HS 06/22/21 08/25/22 History ergocalciferol (vitamin D2) 1,250 50,000 unit PO WEEKLY 06/22/21 08/25/22 History mcg (50,000 unit) capsule latanoprost 0.005 % eye drops 1 drp EACH EYE HS 06/22/21 08/25/22 History spironolactone 25 mg tablet 12.5 mg PO DAILY 06/22/21 08/25/22 History amlodipine 5 mg tablet (Norvasc) 10 mg PO QAM 30 days #60 tabs 03/24/22 08/25/22 Rx ferrous sulfate 325 mg (65 mg 324 mg PO BIDWM #60 tabs 04/11/22 08/25/22 Rx iron) tablet levothyroxine 100 mcg tablet 100 mcg PO DAILY@0630 #30 tabs 04/11/22 08/25/22 Rx (Synthroid) lisinopril 20 mg tablet 20 mg PO QAM #30 tabs 04/11/22 08/25/22 Rx docusate sodium 100 mg capsule 100 mg PO Q12HR #60 caps 05/11/22 08/25/22 Rx polyethylene glycol 3350 17 gram 17 g PO DAILY PRN constipation #14 05/11/22 08/25/22 Rx oral powder packet (Miralax) ea albuterol sulfate 2.5 mg/3 mL 2.5 mg (3 mL) inhalation Q6HRT PRN 06/16/22 08/25/22 Rx (0.083 %) solution for nebulization shortness of breath #7 mL acetaminophen 650 mg tablet 650 mg PO Q6H PRN Pain (Scale 07/21/22 08/25/22 History Score 1-3) buspirone 7.5 mg tablet 7.5 mg PO BID 07/21/22 08/25/22 History omeprazole 20 mg capsule,delayed 20 mg PO DAILY 07/21/22 08/25/22 H
[2022-10-25 20:07] LABS: CRP < 0.5 mg/dL (<1.0)
[2022-10-25 20:07] LABS: Immature Reticulocyte Fraction 22.4 % (3.0-15.9); Reticulocyte Hemoglobin Conten 29.9 pg (28.2-35.7); Reticulocyte Percent 5.64 % (0.7-4.3); Reticulocytes Absolute 0.12 M/mm3 (0.02-0.1)
[2022-10-25 20:11] LABS: Hematocrit 21.9 % (37.0-47.0)
[2022-10-25 20:13] LABS: Hemoglobin 6.4 g/dL (12.0-15.0)
[2022-10-25 20:15] LABS: Lactate Dehydrogenase 126 U/L (120-246)
[2022-10-25 20:16] LABS: Troponin I 0.021 ng/mL (0.000-0.034)
[2022-10-25] MEDS: PANTOPRAZOLE SODIUM IV 40 MG VIAL IV PUSH (20:17)
[2022-10-25 20:24] LABS: Iron 57 ug/dL (37-170)
[2022-10-25 20:33] LABS: Percent Iron Saturation 22 % (20-50)
--- NOTE | 2022-10-25 21:00 | ADMGEN ---
This patient, Sofía Contreras, was admitted to [facility] Surg Room 301-01. Patient/family oriented to hospital policies and general routines including ID bracelet, bed and alarms, visiting hours, pain management, procedures, bathroom and other care routines, personal items, smoking policy, room service/diet, and visiting hours. Information on how to activate the Rapid Response Team has been discussed. Patient/Family are encouraged to report perceived risks to care and to ask questions if they do not understand what they are told or what they should do.
[2022-10-25 21:23] LABS: Folic Acid 3.6 ng/mL (2.76->20)
[2022-10-25] MEDS: SODIUM CHLORIDE 0.9% IV 250 ML 30 ML IV CONT (21:33)
[2022-10-26] VITALS (32 sets, daily range): BP systolic 109–163; BP diastolic 34–54; PULSE 60–75; RESP 16–24; TEMP 35.7–37; O2SAT 90–100; BMI 23.6
[2022-10-26 02:35] LABS: Basophils Percent Auto 0.5 % (0.2-1.2); Eosinophils Absolute Auto 0.6 K/mm3 (0-0.3); Eosinophils Percent Auto 10.9 % (0-4.4); Hematocrit 24.4 % (37.0-47.0); Hemoglobin 7.4 g/dL (12.0-15.0); Immature Granulocyte Absolute 0.05 K/mm3 (0.00-0.031); Immature Granulocyte Percent A 0.9 % (0-0.5); Lymphocytes Absolute Auto 0.76 K/mm3 (0.9-3.2); Lymphocytes Percent Auto 13.9 % (18.3-44.2); Mean Corpuscular HGB Conc 30.3 g/dl (32-36); Mean Corpuscular Hemoglobin 30.7 pg (26-34); Mean Corpuscular Volume 101.2 fl (80-100); Mean Platelet Volume 10.4 fl (7.4-10.4); Monocytes Absolute Auto 0.5 K/mm3 (0.1-0.6); Monocytes Percent Auto 9.9 % (2.6-8.5); Neutrophils Absolute Auto 3.5 K/mm3 (1.3-6.7); Neutrophils Percent Auto 63.9 % (45.5-73.1); Platelet Count Result 192 k/mm3 (150-375); Red Blood Count 2.41 M/mm3 (4.2-5.4); Red Cell Distribution Width 17.5 % (11.5-14.5); White Blood Count 5.5 K/mm3 (4.5-10.0)
[2022-10-26 06:58] LABS: Troponin I 0.032 ng/mL (0.000-0.034)
[2022-10-26 06:59] LABS: Alanine Aminotransferase 9 U/L (6-35); Albumin Level 3.4 g/dL (3.5-5.1); Alkaline Phosphatase 56 U/L (38-126); Anion Gap 5 mmol/L (8-16); Aspartate Amino Transferase 20 U/L (14-36); Bilirubin,Total 0.3 mg/dL (0.2-1.3); Blood Urea Nitrogen 24 mg/dL (7-17); Calcium 8.1 mg/dL (8.4-10.2); Carbon Dioxide 38 mmol/L (22-30); Chloride 92 mmol/L (98-107); Estimated CRCL calculation 14 ml/min; Estimated Glomerular Filt Rate 17; Glucose 89 mg/dL (65-110); Potassium 4.2 mmol/L (3.4-5.0); Sodium 135 mmol/L (137-145)
[2022-10-26 07:40] LABS: Glucose Point of Care 77 mg/dl (65-105)
[2022-10-26 08:22] LABS: Hepatitis B Surface Anti Res Negative
[2022-10-26 09:49] LABS: Hepatitis B Surface Antigen Negative (Negative)
[2022-10-26] MEDS: guaiFENesin 12 HR 600 MG TABCR PO ×2 (09:50→19:59)
[2022-10-26] MEDS: PANTOPRAZOLE SODIUM IV 40 MG VIAL IV PUSH ×2 (09:50→17:24)
--- NOTE | 2022-10-26 11:40 | PM.CNNEP ---
Assessment and Plan Assessment and plan (1) End stage renal disease: Assessment and Plan: HD tomorrow and continue M/W/F dialysis schedule while hospitalized follow electrolytes, volume status, and clearance (2) Acute on chronic respiratory failure with hypoxia: Code(s): J96.21 - Acute and chronic respiratory failure with hypoxia Status: Acute Assessment and Plan: multifactorial etiology: known hx of COPD volume overload pulmonary HTN anemia on supplemental oxygen continue bronchodilators DUF (dry ultrafiltration) today for fluid removal follow respiratory status (3) Anemia: Code(s): D64.9 - Anemia, unspecified Status: Chronic Assessment and Plan: chronic issue/problem partly related to ESRD Epogen with HD PRBC transfusion per protocol GI consultation numerous EGD + colonoscopies in the past follow trend H/H (4) Hypertension: Assessment and Plan: reasonable control resume home medications follow trend of hemodynamics (5) Diabetes: Assessment and Plan: follow accuchecks glycemic control per hospitalists Will continue to follow. History of Present Illness Reason for Consult Consult date: 10/26/22 Reason for consult: end stage renal disease Chief Complaint Chief complaint: Anemia/ESRD/CHF History of Present Illness Narrative: The patient has 87-year-old female with a past medical history as outlined below who presented to [facility] Emergency room for further evaluation of shortness of breath. Most of the information have obtained is from review of the electronic medical record, my personal experience taking care of the patient, and discussion with ER physician as well as nurses involved her the care as the patient is a poor historian making to get a full and complete history somewhat difficult. The patient received her regularly scheduled dialysis yesterday but following the treatment, she became more acutely short of breath than baseline and her supplemental oxygen had to be increased from 2 L to 4 L in effort to improve her respiratory complaints. She was subsequently transferred to the emergency room for further assessment. Workup and evaluation in emergency room demonstrated the patient to be hemodynamically stable but her respiratory status was clearly not at baseline. Routine blood test demonstrated labs consistent with her known history of end-stage renal disease without any critical electrolyte abnormalitiesBut it was noted that her hemoglobin/hematocrit was quite low. Furthermore, her chest x-ray showed evidence of pulmonary vascular congestion and pleural effusions consistent with mild volume overload as well. The patient has a known history of anemia requiring multiple EGDs and colonoscopies in the past without a definitive etiology to her anemia other than perhaps maybe her known and advanced chronic kidney disease. Given her symptoms and the laboratory/imaging findings, she was typed and crossed and transfused 1 unit packed red blood cells overnight following her subsequent admission to the hospital for further evaluation and therapy. Since her admission, her hemoglobin and hematocrit have incurred meant it appropriately following the unit of packed red blood cells transfusion but her respiratory status still does not appear to be back to baseline. Renal consultation was requested due to her end-stage renal disease. The patient normally does dialysis on a Sunday, Sunday, and Sunday dialysis schedule under the care of Dr. Hayden Waite at [facility]. She received her scheduled dialysis treatment on yesterday (10/25/22) at her outpatient dialysis unit without any issues other than the over mentioned mild respiratory distress/hypoxia following conclusion of the treatment. The patient is somewhat familiar to me as I have taking care of her before on [facility]
[2022-10-26] MEDS: EPOETIN ALFA-EPBX 10,000 UNITS/ML VIAL 10000 UNITS IV PUSH (11:41)
--- NOTE | 2022-10-26 11:51 | WPDGICN ---
Assessment and Plan Assessment and plan (1) Anemia: Code(s): D64.9 - Anemia, unspecified Status: Chronic Assessment and Plan: Patient has a chronic anemia attributed to chronic kidney disease. She has had intermittent decline in hemoglobin of uncertain nature. Because of occult blood in stool an EGD will be performed today. Previous GI workup has been unremarkable. Small bowel capsule study has been unable to be obtained today. Plan for small-bowel follow-through if not yet done. Reconsider small-bowel capsule study which typically can be done as outpatient. at present no need to repeat colonoscopy at this stage. (2) Atrial fibrillation with RVR: Code(s): I48.91 - Unspecified atrial fibrillation Status: Acute Assessment and Plan: Anticoagulation should be held because of anemia and occult blood in stool. (3) End stage renal disease: Code(s): N18.6 - End stage renal disease Status: Chronic Assessment and Plan: Patient requires dialysis. (4) Diabetes: Code(s): E11.9 - Type 2 diabetes mellitus without complications Status: Chronic (5) Insulin dependent type 2 diabetes mellitus: Code(s): E11.9 - Type 2 diabetes mellitus without complications; Z79.4 - FDC (current) use of insulin Status: Chronic GI Consult Note Consult date/time: 10/26/22 11:51 Reason for consult: Anemia with occult blood in stool HPI: Sofía Contreras is a 87 year old female I am asked to see the patient in Dr. Appiah's absence. Emergency room physician and hospitalist request GI consult. Patient has a history of chronic anemia. She has had extensive workup over the last couple years. Patient has baseline anemia attributed to chronic kidney disease. Patient is on dialysis. Occasionally receives Epogen. Intermittently has had a decline in hemoglobin. Noted to have a hemoglobin is 6.5 yesterday. Stool Hemoccult was confirmed to be positive in the emergency room. Previous GI workup over the last year has revealed gastric and duodenal polyps. Colonoscopy with diverticular disease but no overt bleeding. Patient was scheduled for small-bowel capsule study which has not been accomplished. Patient is relatively poor historian. She is listed as having dementia but is pleasant and alert history is difficult to obtain from her however. Family history is noncontributory. Review of Systems Review of Systems: Review of systems noncontributory. PMFSH Past Medical History Medical History Chronic anemia Chronic obstructive pulmonary disease Chronic respiratory failure with hypoxia On 2 to 3 liters nasal cannula. COVID-19 (06/2021) Diastolic dysfunction End-stage renal disease on hemodialysis Erythropoietin deficiency anemia Gastroesophageal reflux disease Glaucoma Hyperlipidemia Hypertension Hypothyroidism Osteoarthritis Pulmonary hypertension Renal osteodystrophy Type 2 diabetes mellitus Vitamin D deficiency Surgical History Surgical History Status post creation of arteriovenous fistula Left upper extremity. Family History Family History Other Diabetes mellitus Hypertension Social History Social History Social History: Surrogate decision maker: Amy Contreras, son. Code status: Do not resuscitate. Smoking packs per day: 1 Smoking cigarettes per day: 20.0 Years smoked: 34 Smoking pack-years: 34.00 Smoking status: Unknown if ever smoked Tobacco type: cigarettes Second hand tobacco smoke exposure: No Alcohol intake: unknown Substance use: unknown Substance use type: does not use Lack of Transportation: No Lack of Food: Never True Current Housing: I Have Housing
--- NOTE | 2022-10-26 12:32 | PC.NURSE ---
Was instructed by dialysis nurse to hold diuretic meds this AM before dialysis. Will give patient meds after dialysis. Diuretic meds will be late.
[2022-10-26 12:48] LABS: Glucose Point of Care 85 mg/dl (65-105)
--- NOTE | 2022-10-26 13:21 | PM.IMPN ---
Progress Note: A&P Assessment and Plan (1) CHF exacerbation: Code(s): I50.9 - Heart failure, unspecified Status: Acute Assessment and Plan: Acute on top of chronic diastolic CHF exacerbation most likely related to fluid overload most likely related to ESRD IV diuresis dialysis per Nephrology Troponin trending down, likely elevated due to ESRD Echocardiogram pending BNP 7930. It is to note that this is the lowest BNP the patient has had At [facility]. (2) Anemia: Code(s): D64.9 - Anemia, unspecified Status: Chronic Assessment and Plan: Acute on top of chronic blood loss anemia. Patient has history of anemia due to GI bleeds requiring transfusions. Patient required transfusion of 1 unit of PRBCs for hemoglobin of 6.4 on 10/25/2022 IV Protonix monitor H&H transfusion if hemoglobin is less than 7 tele monitor GI consulted and appreciate recommendations. Patient planned to get small bowel follow-through (3) Acute respiratory failure with hypoxia and hypercarbia: Code(s): J96.01 - Acute respiratory failure with hypoxia; J96.02 - Acute respiratory failure with hypercapnia Status: Acute Assessment and Plan: Most likely related to pulmonary edema IV Lasix dialysis per Nephrology telemonitor Patient requiring increased oxygen demand and wearing 4 L currently. She typically wears 2 L at home. (4) Type 2 diabetes mellitus: Code(s): E11.9 - Type 2 diabetes mellitus without complications Status: Chronic Assessment and Plan: insulin sliding scale pending home medication reconciliation (5) HTN (hypertension): Qualifiers: Hypertension type: primary hypertension Qualified Code(s): I10 - Essential (primary) hypertension Code(s): I10 - Essential (primary) hypertension Status: Chronic Assessment and Plan: patient at home on amlodipine and clonidine pending home medication reconciliation p.r.n. IV hydralazine added (6) COPD (chronic obstructive pulmonary disease): Code(s): J44.9 - Chronic obstructive pulmonary disease, unspecified Status: Acute Assessment and Plan: stable inhaler treatment as needed pending home medication reconciliation (7) End stage renal disease: Code(s): N18.6 - End stage renal disease Status: Chronic Assessment and Plan: nephrology consulted Subjective Date/time seen: 10/26/22 13:21 Interval history: Patient is poor historian. She denies chest pain, shortness a breath, heart palpitations, dizziness, nausea and vomiting. Review of Systems Review of Systems: All systems reviewed & are unremarkable except as noted in HPI and below Exam Narrative: GENERAL: Comfortable, no acute distress HENMT: moist mucous membranes EYES: EOM intact b/l NECK: no lymphadenopathy RESPIRATORY: clear to auscultation CARDIO: RRR GI: soft, nontender, bowel sounds present SKIN: no rashes EXTREMITIES: no edema, redness or tenderness Objective Data Vital Signs Vital Signs: Vital Signs - 24 hr 10/25/22 15:32 10/25/22 15:44 10/25/22 15:44 Temperature 98 F Pulse Rate 79 73 Respiratory Rate 18 Blood Pressure 144/48 H Pulse Oximetry 96 94 Oxygen Delivery Nasal Cannula Nasal Cannula Oxygen Flow Rate 4 4 10/25/22 15:45 10/25/22 15:47 10/25/22 16:00 Temperature Pulse Rate 73 72 66 Respiratory Rate 23 H 26 H 18 Blood Pressure 134/68 Pulse Oximetry Oxygen Delivery Oxygen Flow Rate 10/25/22 16:02 10/25/22 16:15 10/25/22 16:17 Temperature Pulse Rate 69 68 Respiratory Rate 16 22 H 21 H Blood Pressure 124/38 L 127/41 L Pulse Oximetry Oxygen Delivery Oxygen Flow Rate 10/25/22 16:30 10/25/22 16:46 10/25/22 17:03 Temperature Pulse Rate 73 69 68 Respiratory Rate 26 H 18 23 H Blood Pressure Pulse Oximetry Oxygen Delivery Oxygen Flow Rate 10/25/22 17:15 05
[2022-10-26 14:49] LABS: Glucose Point of Care 80 mg/dl (65-105)
[2022-10-26] MEDS: SODIUM CHLORIDE 0.9% IV 500 ML 10 ML IV CONT (14:54)
--- NOTE | 2022-10-26 14:54 | WPDANESEPPF ---
Anes - Initial Pre Proc Eval Procedure: Operation Date: 10/26/22 12:30 Proposed Procedures p Esophagogastroduodenoscopy - Sameer Guerra MD Date/Time: 10/26/22 14:54 Surgeon: Guadalupe Galvan MD Pre Op Diagnosis: Anemia/ESRD/CHF Patient Data Age: 87 Gender: F Height: 1.73 m Weight: 70.5 kg Last Vital Signs Temp 97.4 F L 10/26/22 14:51 Pulse 68 10/26/22 14:51 Resp 20 10/26/22 14:51 BP 148/48 H 10/26/22 14:51 Pulse Ox 96 10/26/22 14:51 O2 Del Method Nasal Cannula 10/26/22 14:51 O2 Flow Rate 3 10/26/22 14:51 Allergies Allergy/AdvReac Type Severity Reaction Status Date / Time adhesive tape Allergy Unknown PLASTIC Verified 10/26/22 14:48 TAPE hydrochlorothiazide Allergy Unknown Verified 10/26/22 14:48 latex Allergy Rash Verified 10/26/22 14:48 Home Medications Medication Instructions Recorded Confirmed Type atorvastatin 20 mg tablet 20 mg PO HS 06/22/21 10/26/22 History ergocalciferol (vitamin D2) 1,250 50,000 unit PO WEEKLY 06/22/21 10/26/22 History mcg (50,000 unit) capsule latanoprost 0.005 % eye drops 1 drp EACH EYE HS 06/22/21 10/26/22 History spironolactone 25 mg tablet 12.5 mg PO DAILY 06/22/21 10/26/22 History amlodipine 5 mg tablet (Norvasc) 10 mg PO QAM 30 days #60 tabs 03/24/22 10/26/22 Rx ferrous sulfate 325 mg (65 mg 324 mg PO BIDWM #60 tabs 04/11/22 10/26/22 Rx iron) tablet levothyroxine 100 mcg tablet 100 mcg PO DAILY@0630 #30 tabs 04/11/22 10/26/22 Rx (Synthroid) lisinopril 20 mg tablet 20 mg PO QAM #30 tabs 04/11/22 10/26/22 Rx docusate sodium 100 mg capsule 100 mg PO Q12HR #60 caps 05/11/22 10/26/22 Rx polyethylene glycol 3350 17 gram 17 g PO DAILY PRN constipation #14 05/11/22 10/26/22 Rx oral powder packet (Miralax) ea albuterol sulfate 2.5 mg/3 mL 2.5 mg (3 mL) inhalation Q6HRT PRN 06/16/22 10/26/22 Rx (0.083 %) solution for nebulization shortness of breath #7 mL acetaminophen 650 mg tablet 650 mg PO Q6H PRN Pain (Scale 07/21/22 10/26/22 History Score 1-3) buspirone 7.5 mg tablet 7.5 mg PO BID 07/21/22 10/26/22 History omeprazole 20 mg capsule,delayed 20 mg PO DAILY 07/21/22 10/26/22 History release clonidine HCl 0.1 mg tablet 0.1 mg PO Q12HR #60 tabs 08/31/22 10/26/22 Rx Laboratory Tests 10/25/22 10/25/22 10/25/22 16:40 18:38 20:01 WBC 6.7 K/mm3 (4.5-10.0) RBC 2.26 L M/mm3 (4.2-5.4) Hgb 6.9 L* D g/dL (12.0-15.0) Hct 23.5 L % (37.0-47.0) MCV 104.0 H fl (80-100) MCH 30.5 pg (26-34) MCHC 29.4 L g/dl (32-36) RDW 18.0 H % (11.5-14.5) Plt Count 207 k/mm3 (150-375) MPV 10.5 H fl (7.4-10.4) Immature Gran % (Auto) 0.7 H % (0-0.5) Neut % (Auto) 66.8 % (45.5-73.1) Lymph % (Auto) 13.1 L % (18.3-44.2) [place] % (Auto) 10.0 H % (2.6-8.5) Eos % (Auto) 8.8 H % (0-4.4) Baso % (Auto) 0.6 % (0.2-1.2) Lymph # (Auto) 0.88 L K/mm3 (0.9-3.2) [place] # (Auto) 0.7 H K/mm3 (0.1-0.6) Eos # (Auto) 0.6 H K/mm3 (0-0.3) Baso # (Auto) 0.0 K/mm3 (0.0-0.1) Abs Immat Gran (auto) 0.05 H K/mm3 (0.00-0.031) Absolute Neuts (auto) 4.5 K/mm3 (1.3-6.7) Absolute Nucleated RBC 0.0 K/mm3 (0.0-0.012) Nucleated RBC % 0.0 % (0.0-0.2) Platelet Estimate Adequate (Adequate) Hypochromasia 1+ (NORMAL) Anisocytosis 2+ (NORMAL) Microcytosis 1+ (NORMAL) Schistocytes None seen (NORMAL) Absolute Retic 0.12 H M/mm3 (0.02-0.1) Percent Retic 5.64 H % (0.7-4.3) Immature Retic Fraction 22.4 H % (3.0-15.9) Retic Hgb Content 29.9 pg (28.2-35.7) Haptoglobin Sodium 135 L mmol/L (137-145) Potassium 3.7 mmol/L (3.4-5.0) Chloride 93 L mmol/L (98-107)
[2022-10-26] MEDS: SIMETHICONE ORAL SUSPENSION 20 MG/0.3 ML 30 ML BOTTLE 0.6 ML PO (15:12)
[2022-10-26 16:56] LABS: Glucose Point of Care 95 mg/dl (65-105)
[2022-10-26] MEDS: FUROSEMIDE INJ 40 MG/4 ML VIAL IV PUSH (17:24)
[2022-10-26] MEDS: ACETAMINOPHEN 325 MG TABLET 650 MG PO (17:57)
--- NOTE | 2022-10-26 19:49 | ECHO_ITS ---
Patient Info Name: Sofía Contreras Age: 87 years : 1935 Gender: Female Ht: 65 in Wt: 155 lbs BSA: 1.81 m2 HR: 78 bpm BP: 149 / 34 mmHg Heart Rhythm: Sinus Rhythm Technical Quality: Fair Exam Date: 10/26/2022 8:59 AM Exam Location: [facility] Pulmonary Exam Room: 301 Patient Status: Inpatient Admit Date: 10/25/2022 Staff Ordering Physician: Guadalupe Galvan M.A., MD Wire Rigger: Rosanna Moncada RDCS Attending Provider: Guadalupe Galvan M.A., MD Referring Physician: Neftali TORREZ; Exam Type: CA echo doppler color flow Study Info Indications - SYNCOPE Complete two-dimensional, color flow and Doppler transthoracic echocardiogram is performed. Summary 1. Complete two-dimensional, color flow and Doppler transthoracic echocardiogram is performed. 2. Left ventricular chamber dimension is normal. 3. Left ventricular systolic function is normal, estimated at 65-70%. 4. There is mildly increased left ventricular wall thickness. 5. Right ventricular systolic function is normal. 6. Left atrial chamber dimension is severely enlarged. 7. Right atrial chamber dimension is mildly enlarged. 8. The mitral valve annulus is severely calcified. 9. The mitral valve has thickened leaflets. 10. There is mild mitral valve regurgitation. 11. There is mild tricuspid valve regurgitation. Left Ventricle Left ventricular chamber dimension is normal. Left ventricular systolic function is normal, estimated at 65-70%. There is mildly increased left ventricular wall thickness. Right Ventricle Right ventricular chamber dimension is normal. Right ventricular systolic function is normal. Left Atria Left atrial chamber dimension is severely enlarged. Right Atria Right atrial chamber dimension is mildly enlarged. Atrial Septum Intact interatrial septum visualized by color flow imaging. Aortic Valve There is no aortic valve stenosis. There is no aortic valve regurgitation. There is mild aortic valve calcification. Pulmonic Valve The pulmonic valve is not well visualized. Mitral Valve The mitral valve has thickened leaflets. There is mild mitral valve regurgitation. The mitral valve annulus is severely calcified. Tricuspid Valve There is mild tricuspid valve regurgitation. Pericardium/Pleural There is no pericardial effusion. Inferior Vena Cava Inferior vena cava is not well visualized. Aorta The aortic root size at the sinus of Valsalva is normal. Left Ventricular Outflow Tract Name Value Normal LVOT 2D LVOT Diameter 2.0 cm LVOT Doppler LVOT Peak Gradient 8 mmHg LVOT Mean Gradient 5 mmHg LVOT VTI 36 cm LVOT VTI/AV VTI Ratio 0.6 LVOT Stroke Volume 108 ml LVOT CO 19.6 l/min LVOT CI 10.9 l/min/m2 Pulmonic Valve Name Value Normal PV Doppler
[2022-10-26 20:22] LABS: Glucose Point of Care 134 mg/dl (65-105)
[2022-10-26 21:12] LABS: Hematocrit 27.7 % (37.0-47.0); Hemoglobin 8.1 g/dL (12.0-15.0)
[2022-10-27] VITALS (25 sets, daily range): BP systolic 96–195; BP diastolic 41–91; PULSE 64–78; RESP 16–20; TEMP 35.7–36.6; O2SAT 95–100
[2022-10-27 05:32] LABS: Basophils Absolute Auto 0.1 K/mm3 (0.0-0.1); Basophils Percent Auto 0.8 % (0.2-1.2); Eosinophils Absolute Auto 0.7 K/mm3 (0-0.3); Hematocrit 28.5 % (37.0-47.0); Hemoglobin 8.7 g/dL (12.0-15.0); Immature Granulocyte Absolute 0.06 K/mm3 (0.00-0.031); Immature Granulocyte Percent A 0.8 % (0-0.5); Lymphocytes Absolute Auto 0.82 K/mm3 (0.9-3.2); Lymphocytes Percent Auto 10.7 % (18.3-44.2); Mean Corpuscular HGB Conc 30.5 g/dl (32-36); Mean Corpuscular Hemoglobin 30.7 pg (26-34); Mean Corpuscular Volume 100.7 fl (80-100); Mean Platelet Volume 10.9 fl (7.4-10.4); Monocytes Absolute Auto 0.7 K/mm3 (0.1-0.6); Monocytes Percent Auto 8.5 % (2.6-8.5); Neutrophils Absolute Auto 5.4 K/mm3 (1.3-6.7); Neutrophils Percent Auto 70.2 % (45.5-73.1); Platelet Count Result 212 k/mm3 (150-375); Red Blood Count 2.83 M/mm3 (4.2-5.4); Red Cell Distribution Width 17.1 % (11.5-14.5); White Blood Count 7.6 K/mm3 (4.5-10.0)
[2022-10-27 05:48] LABS: Alanine Aminotransferase 10 U/L (6-35); Albumin Level 3.9 g/dL (3.5-5.1); Alkaline Phosphatase 64 U/L (38-126); Anion Gap 7 mmol/L (8-16); Aspartate Amino Transferase 20 U/L (14-36); Bilirubin,Total 0.5 mg/dL (0.2-1.3); Blood Urea Nitrogen 40 mg/dL (7-17); Calcium 8.4 mg/dL (8.4-10.2); Carbon Dioxide 35 mmol/L (22-30); Chloride 92 mmol/L (98-107); Estimated CRCL calculation 9 ml/min; Estimated Glomerular Filt Rate 10; Glucose 108 mg/dL (65-110); Potassium 4.2 mmol/L (3.4-5.0); Sodium 134 mmol/L (137-145)
[2022-10-27 07:58] LABS: Glucose Point of Care 82 mg/dl (65-105)
[2022-10-27] MEDS: guaiFENesin 12 HR 600 MG TABCR PO ×2 (08:22→20:11)
[2022-10-27] MEDS: PANTOPRAZOLE SODIUM IV 40 MG VIAL IV PUSH ×2 (08:25→16:48)
--- NOTE | 2022-10-27 09:56 | PM.PNNEP ---
Progress Note: A&P Assessment and Plan (1) End stage renal disease: Code(s): N18.6 - End stage renal disease Status: Chronic Assessment and Plan: HD today continue M/W/F dialysis schedule while hospitalized follow electrolytes, volume status, and clearance (2) Acute on chronic respiratory failure with hypoxia: Code(s): J96.21 - Acute and chronic respiratory failure with hypoxia Status: Acute Assessment and Plan: multifactorial etiology: known hx of COPD volume overload pulmonary HTN anemia on supplemental oxygen continue bronchodilators DUF (dry ultrafiltration) yesterday (10/26/22) for more fluid removal follow respiratory status (3) Anemia: Code(s): D64.9 - Anemia, unspecified Status: Chronic Assessment and Plan: chronic issue/problem partly related to ESRD Epogen with HD PRBC transfusion per protocol s/p EGD yesterday (10/26/22) -- polyps noted but no active bleeding found follow trend H/H (4) Hypertension: Code(s): I10 - Essential (primary) hypertension Status: Chronic Assessment and Plan: reasonable control continue home medications follow trend of hemodynamics (5) Diabetes: Code(s): E11.9 - Type 2 diabetes mellitus without complications Status: Chronic Assessment and Plan: follow accuchecks glycemic control per hospitalists Will continue to follow. Subjective Date/time seen: 10/27/22 09:56 Interval history: Follow-up for end stage renal disease on hemodialysis. Tolerated DUF (dry ultrafiltration) treatment yesterday and tolerating hemodialysis treatment currently (seen on HD at 9:45AM) without any issues or problems; H/H stable if not better by AM labs; s/p EGD yesterday with findings noted (no evidence of active bleeding) and she tolerated this interventions reasonably well; no other acute issues/events noted. Exam Narrative: General: elderly chronically ill-appearing female in NAD Heart: normal S1 and S2; no rub Lungs: coarse breath sounds noted Abdomen: soft, nondistended, positive bowel sounds Extremities: no cyanosis or clubbing; no edema Skin: warm and dry Objective Data Vital Signs Vital Signs: Vital Signs Temp Pulse Resp BP Pulse Ox O2 Del Method O2 Flow Rate 10/27/22 09:40 73 177/68 H 10/27/22 09:19 97.8 F 73 18 183/66 H 10/27/22 09:34 73 174/63 H 10/27/22 08:00 72 10/27/22 05:36 96.2 F L 72 16 162/46 H 95 10/27/22 04:00 73 10/27/22 00:00 77 10/26/22 20:00 71 10/26/22 21:42 91 Nasal Cannula 4 10/26/22 22:00 96.5 F L 74 18 163/43 H 94 10/26/22 20:00 71 24 H 91 Nasal Cannula 4 10/26/22 16:00 71 10/26/22 15:37 72 24 H 139/36 L 91 Nasal Cannula 3 10/26/22 15:27 75 22 H 141/40 H 93 Nasal Cannula 4 10/26/22 15:17 73 20 144/40 H 93 Nasal Cannula 6 10/26/22 14:51 97.4 F L 68 20 148/48 H 96 Nasal Cannula 3 Intake/Output Intake/Output: Intake & Output 10/24/22 10/25/22 10/26/22 10/27/22 23:59 23:59 23:59 23:59 Intake Total 0 760 50 Output Total 2400 Balance 0 -1640 50 Meds/Results Medications: Active Medications Generic Name Dose Route Start Last Admin Trade Name Freq PRN Reason Stop Dose Admin Acetaminophen 650 mg 10/25/22 19:49 10/27/22 11:30 Acetaminophen 325 Mg Tablet PO 650 mg Q6H PRN Administration Mild Pain (1-3) Albuterol 2.5 mg 10/25/22 19:49 Albuterol Sulfate Neb 2.5 Mg/3 Ml Inh INHALATION Q6HRT PRN Shortness Of Breath Dextrose 12.5 gm 10/25/22 19:59 Dextrose 50% 25 Gm/50 Ml Syringe IV PUSH PRN PRN Hypoglycemia Protocol Furosemide 40 mg 10/26/22 09:00 10/27/22 08:25 Furosemide Inj 40 Mg/4 Ml Vial IV PUSH Not Given BID LAUREN Glucagon 1 mg 10/25/22 19:59 Glucagon For Inj 1 Mg Vial IM PRN PRN Hypog
[2022-10-27] MEDS: EPOETIN ALFA-EPBX 10,000 UNITS/ML VIAL 10000 UNITS IV PUSH (10:10)
[2022-10-27] MEDS: SODIUM CHLORIDE 0.9% IV 1,000 ML 999 ML IV CONT ×2 (10:11)
--- NOTE | 2022-10-27 11:12 | WPDGIPROGNO ---
Progress Note: A&P Assessment and Plan (1) Anemia: Code(s): D64.9 - Anemia, unspecified Status: Chronic Assessment and Plan: although she has a chronic anemia, she intermittently has an acute drop in her hemoglobin. At times is associated with heme-positive stool. Last March her stool was heme negative at that time. She never however has had any overt evidence of bleeding, black tarry stools etc. Extensive workup, here and elsewhere has failed to show any definite source for gastrointestinal bleeding. She has had gastric polyps secondary to long-term PPI therapy. small-bowel series to be done today (2) End stage renal disease: Code(s): N18.6 - End stage renal disease Status: Chronic Assessment and Plan: She is on dialysis 3 times a week. Is usually after dialysis treatment that her hemoglobin, For some reason seems to drop. (3) Atrial fibrillation with RVR: Code(s): I48.91 - Unspecified atrial fibrillation Status: Acute Assessment and Plan: She is no longer anticoagulated. Due to recurrent drop in hemoglobin it was felt that she would be better off without anticoagulation. Plan At this time no further gastrointestinal investigation is indicated. Capsule endoscopy had been ordered but not yet done. Subjective Date/time seen: 10/27/22 11:12 She has no complaints today. She states again that she has never seen blood in her stools. She is fairly certain she did not have dark tarry stools. She cannot recall precisely but it appears that she had an EGD somewhere else in the past year because of the finding of an Endoclip in the which was not there last year. She states she is tired. Does not have any other complaints today. Schedule for small-bowel series today. Exam Const: General: alert and other ( Tired appearing) Orientation/consciousness: patient oriented x3 HENMT: Ears: hearing grossly impaired Resp: Auscultation: clear to auscultation bilaterally Cardio: Rhythm: regular rhythm GI: Inspection: normal to inspection GI Palp: Yes Soft to palpation, No Tenderness to palpation present (GI) and Yes No hepatosplenomegaly present Auscultation: normal bowel sounds Neuro: General: patient oriented x3 Objective Data Vital Signs Vital Signs: Vital Signs - 24 hr 10/26/22 11:20 10/26/22 11:40 10/26/22 12:00 Temperature Pulse Rate 63 63 62 Respiratory Rate Blood Pressure 135/45 L 130/44 L 115/38 L Pulse Oximetry Oxygen Delivery Oxygen Flow Rate 10/26/22 12:20 10/26/22 12:40 10/26/22 13:00 Temperature Pulse Rate 60 63 64 Respiratory Rate Blood Pressure 129/46 L 143/53 H 137/46 L Pulse Oximetry Oxygen Delivery Oxygen Flow Rate 10/26/22 14:51 10/26/22 15:17 10/26/22 15:27 Temperature 36.3 C L Pulse Rate 68 73 75 Respiratory Rate 20 20 22 H Blood Pressure 148/48 H 144/40 H 141/40 H Pulse Oximetry 96 93 93 Oxygen Delivery Nasal Cannula Nasal Cannula Nasal Cannula Oxygen Flow Rate 3 6 4 10/26/22 15:37 10/26/22 13:20 10/26/22 13:23 Temperature Pulse Rate 72 64 62 Respiratory Rate 24 H Blood Pressure 139/36 L 121/41 L 129/44 L Pulse Oximetry 91 Oxygen Delivery Nasal Cannula Oxygen Flow Rate 3 10/26/22 13:30 10/26/22 13:40 10/26/22 13:52 Temperature Pulse Rate 62 63 65 Respiratory Rate Blood Pressure 114/46 L 109/42 L 133/44 L Pulse Oximetry Oxygen Delivery Oxygen Flow Rate 10/26/22 13:58 10/26/22 12:00 10/26/22 14:00 Temperature 36.7 C 36.2 C L Pulse Rate 63 62 68 Respiratory Rate 20 16 Blood Pressure 140/44 L 130/50 L Pulse Oximetry 93 90 Oxygen Delivery Oxygen Flow Rate 10/26/22 16:00 10/26/22 20:00 10/26/22 22:00 Temperature 35.8 C L Pulse Rate 71 71 74 Respiratory Rate 24 H 18 Blood Pressure 163/43 H Pulse Oximetry 91 94 Oxygen Delivery Nasal Cannula Oxygen Flow Rate 4 10/26/22 21:42 10/26/22 20:00 05/
[2022-10-27] MEDS: ACETAMINOPHEN 325 MG TABLET 650 MG PO (11:30)
[2022-10-27 11:33] LABS: Glucose Point of Care 81 mg/dl (65-105)
--- NOTE | 2022-10-27 15:24 | PM.IMPN ---
Progress Note: A&P Assessment and Plan (1) CHF exacerbation: Code(s): I50.9 - Heart failure, unspecified Status: Acute Assessment and Plan: Acute on top of chronic diastolic CHF exacerbation most likely related to fluid overload most likely related to ESRD IV diuresis dialysis per Nephrology Troponin trending down, likely elevated due to ESRD Echocardiogram showing EF of 65-70%, severely enlarged right atrial chamber, mitral valve severely calcified has thickened leaflets and mild for regurg. BNP 7930. It is to note that this is the lowest BNP the patient has had At [facility]. (2) Anemia: Code(s): D64.9 - Anemia, unspecified Status: Chronic Assessment and Plan: Acute on top of chronic blood loss anemia. Patient has history of anemia due to GI bleeds requiring transfusions. Patient required transfusion of 1 unit of PRBCs for hemoglobin of 6.4 on 10/25/2022 IV Protonix monitor H&H transfusion if hemoglobin is less than 7 tele monitor GI consulted and appreciate recommendations. EGD performed revealing non bleeding gastric and duodenal polyps Patient planned to get small bowel follow-through (3) Acute respiratory failure with hypoxia and hypercarbia: Code(s): J96.01 - Acute respiratory failure with hypoxia; J96.02 - Acute respiratory failure with hypercapnia Status: Acute Assessment and Plan: Most likely related to pulmonary edema IV Lasix dialysis per Nephrology telemonitor Patient requiring increased oxygen demand and wearing 4 L currently. She typically wears 2 L at home. (4) Type 2 diabetes mellitus: Code(s): E11.9 - Type 2 diabetes mellitus without complications Status: Chronic Assessment and Plan: insulin sliding scale pending home medication reconciliation (5) HTN (hypertension): Qualifiers: Hypertension type: primary hypertension Qualified Code(s): I10 - Essential (primary) hypertension Code(s): I10 - Essential (primary) hypertension Status: Chronic Assessment and Plan: patient at home on amlodipine and clonidine pending home medication reconciliation p.r.n. IV hydralazine added (6) COPD (chronic obstructive pulmonary disease): Code(s): J44.9 - Chronic obstructive pulmonary disease, unspecified Status: Acute Assessment and Plan: stable inhaler treatment as needed pending home medication reconciliation (7) End stage renal disease: Code(s): N18.6 - End stage renal disease Status: Chronic Assessment and Plan: nephrology consulted Subjective Date/time seen: 10/27/22 15:24 Interval history: Patient seen while getting dialysis today. She states that she is still having some epigastric pain but otherwise doing well. She denies dizziness, lightheadedness, shortness of breath, chest pain, nausea and vomiting. Review of Systems Review of Systems: All systems reviewed & are unremarkable except as noted in HPI and below Exam Narrative: GENERAL: Comfortable, no acute distress HENMT: moist mucous membranes EYES: EOM intact b/l NECK: no lymphadenopathy RESPIRATORY: clear to auscultation CARDIO: RRR GI: soft, nontender, bowel sounds present SKIN: no rashes EXTREMITIES: no edema, redness or tenderness Objective Data Vital Signs Vital Signs: Vital Signs - 24 hr 10/26/22 15:27 10/26/22 15:37 10/26/22 16:00 Temperature Pulse Rate 75 72 71 Respiratory Rate 22 H 24 H Blood Pressure 141/40 H 139/36 L Pulse Oximetry 93 91 Oxygen Delivery Nasal Cannula Nasal Cannula Oxygen Flow Rate 4 3 10/26/22 20:00 10/26/22 22:00 10/26/22 21:42 Temperature 96.5 F L Pulse Rate 71 74 Respiratory Rate 24 H 18 Blood Pressure 163/43 H Pulse Oximetry 91 94 91 Oxygen Delivery Nasal Cannula Nasal Cannula Oxygen Flow Rate 4 4 10/26/22 20:00 10/27/22 00:00 10/27/22 04:00 Temperature Pulse Rate 71 7
[2022-10-27 16:23] LABS: Glucose Point of Care 89 mg/dl (65-105)
[2022-10-27] MEDS: FUROSEMIDE INJ 40 MG/4 ML VIAL IV PUSH (16:48)
[2022-10-27 20:14] LABS: Hematocrit 28.4 % (37.0-47.0); Hemoglobin 8.6 g/dL (12.0-15.0)
[2022-10-27] MEDS: hydrALAZINE HCL 20 MG/ML VIAL 10 MG IV PUSH (21:25)
[2022-10-27 21:29] LABS: Glucose Point of Care 93 mg/dl (65-105)
[2022-10-28] VITALS (8 sets, daily range): BP systolic 148–174; BP diastolic 42–51; PULSE 74–84; RESP 16–20; TEMP 36.1–36.2; O2SAT 94–99
[2022-10-28 06:30] LABS: Basophils Absolute Auto 0.1 K/mm3 (0.0-0.1); Basophils Percent Auto 0.7 % (0.2-1.2); Eosinophils Absolute Auto 0.8 K/mm3 (0-0.3); Eosinophils Percent Auto 9.5 % (0-4.4); Hematocrit 28.1 % (37.0-47.0); Hemoglobin 8.6 g/dL (12.0-15.0); Immature Granulocyte Percent A 1.2 % (0-0.5); Lymphocytes Absolute Auto 1.02 K/mm3 (0.9-3.2); Lymphocytes Percent Auto 12.6 % (18.3-44.2); Mean Corpuscular HGB Conc 30.6 g/dl (32-36); Mean Corpuscular Hemoglobin 30.7 pg (26-34); Mean Corpuscular Volume 100.4 fl (80-100); Mean Platelet Volume 11.1 fl (7.4-10.4); Monocytes Absolute Auto 0.8 K/mm3 (0.1-0.6); Monocytes Percent Auto 9.7 % (2.6-8.5); Neutrophils Absolute Auto 5.3 K/mm3 (1.3-6.7); Neutrophils Percent Auto 66.3 % (45.5-73.1); Platelet Count Result 205 k/mm3 (150-375); Red Cell Distribution Width 16.5 % (11.5-14.5); White Blood Count 8.1 K/mm3 (4.5-10.0)
[2022-10-28 07:15] LABS: Alanine Aminotransferase 8 U/L (6-35); Albumin Level 3.7 g/dL (3.5-5.1); Alkaline Phosphatase 69 U/L (38-126); Anion Gap 6 mmol/L (8-16); Aspartate Amino Transferase 17 U/L (14-36); Bilirubin,Total 0.5 mg/dL (0.2-1.3); Blood Urea Nitrogen 21 mg/dL (7-17); Calcium 8.8 mg/dL (8.4-10.2); Carbon Dioxide 29 mmol/L (22-30); Chloride 99 mmol/L (98-107); Estimated CRCL calculation 12 ml/min; Estimated Glomerular Filt Rate 14; Glucose 92 mg/dL (65-110); Potassium 4.2 mmol/L (3.4-5.0); Sodium 134 mmol/L (137-145)
[2022-10-28 07:50] LABS: Glucose Point of Care 90 mg/dl (65-105)
[2022-10-28] MEDS: guaiFENesin 12 HR 600 MG TABCR PO (08:34)
[2022-10-28] MEDS: FUROSEMIDE INJ 40 MG/4 ML VIAL IV PUSH ×2 (08:34→16:23)
[2022-10-28] MEDS: PANTOPRAZOLE SODIUM IV 40 MG VIAL IV PUSH ×2 (08:34→16:23)
--- NOTE | 2022-10-28 09:33 | WPDGIPROGNO ---
Progress Note: A&P Assessment and Plan (1) Anemia: Code(s): D64.9 - Anemia, unspecified Status: Chronic Assessment and Plan: Patient with chronic anemia. This likely related to her chronic kidney disease. Patient has had some fluctuation in her hemoglobin. Intermittent bleeding has not been excluded as she has had occasional Hemoccult positive stools. EGD revealed duodenal polyp that appeared benign. Final histology pending. Would continue PPI acid suppression. Advance diet. Hemoglobin should be monitored is an outpatient. Disposition per primary care service. (2) Atrial fibrillation with RVR: Code(s): I48.91 - Unspecified atrial fibrillation Status: Acute Assessment and Plan: Anticoagulation is on hold because of ongoing anemia question of blood loss. (3) CHF exacerbation: Code(s): I50.9 - Heart failure, unspecified Status: Acute (4) Type 2 diabetes mellitus: Code(s): E11.9 - Type 2 diabetes mellitus without complications Status: Chronic (5) End-stage renal disease on hemodialysis: Code(s): N18.6 - End stage renal disease; Z99.2 - Dependence on renal dialysis Status: Acute Subjective Date/time seen: 10/28/22 09:33 Interval history: Patient comfortable at rest this morning. Poor historian. offers no specific complaints. Review of Systems Review of Systems: ROS unobtainable: Yes unobtainable due to mental status Exam Narrative: Physical exam reveals patient be alert comfortable at rest. Vital signs stable. Lungs are clear. Heart without murmur. Abdomen benign. Objective Data Vital Signs Vital Signs: Vital Signs - 24 hr 10/27/22 09:34 10/27/22 10:20 10/27/22 12:20 Temperature Pulse Rate 73 74 74 Respiratory Rate Blood Pressure 174/63 H 163/59 H 146/52 H Pulse Oximetry Oxygen Delivery Oxygen Flow Rate 10/27/22 12:40 10/27/22 09:40 10/27/22 10:00 Temperature Pulse Rate 73 73 68 Respiratory Rate Blood Pressure 130/46 L 177/68 H 195/91 H Pulse Oximetry Oxygen Delivery Oxygen Flow Rate 10/27/22 10:40 10/27/22 12:00 10/27/22 11:40 Temperature Pulse Rate 78 72 71 Respiratory Rate Blood Pressure 137/52 L 146/51 H 135/57 L Pulse Oximetry Oxygen Delivery Oxygen Flow Rate 10/27/22 11:30 10/27/22 11:20 10/27/22 11:17 Temperature Pulse Rate 74 77 76 Respiratory Rate Blood Pressure 123/52 L 114/46 L 99/51 L Pulse Oximetry Oxygen Delivery Oxygen Flow Rate 10/27/22 11:09 10/27/22 11:00 10/27/22 14:00 Temperature 97.0 F L Pulse Rate 75 76 66 Respiratory Rate 18 Blood Pressure 96/45 L 145/59 H 126/41 L Pulse Oximetry 100 Oxygen Delivery Oxygen Flow Rate 10/27/22 12:48 10/27/22 13:00 10/27/22 12:00 Temperature 97.8 F Pulse Rate 70 64 72 Respiratory Rate 18 Blood Pressure 127/50 L 132/56 L Pulse Oximetry Oxygen Delivery Oxygen Flow Rate 10/27/22 19:40 10/27/22 21:38 10/28/22 00:00 Temperature 97.6 F Pulse Rate 66 76 84 Respiratory Rate 18 20 Blood Pressure 173/54 H Pulse Oximetry 100 97 Oxygen Delivery Nasal Cannula Oxygen Flow Rate 4 10/28/22 04:00 10/28/22 06:00 10/28/22 08:30 Temperature 97.1 F L Pulse Rate 78 78 Respiratory Rate 20 Blood Pressure 174/51 H Pulse Oximetry 94 98 Oxygen Delivery Nasal Cannula Oxygen Flow Rate 3 10/28/22 08:40 10/28/22 08:00 10/28/22 08:00 Temperature Pulse Rate 77 77 80 Respiratory Rate 16 16 Blood Pressure Pulse Oximetry 99 99 Oxygen Delivery Nasal Cannula Oxygen Flow Rate 3 Intake/Output Intake/Output: Intake & Output 10/25/22 10/26/22 10/27/22 10/28/22 23:59 23:59 23:59 23:59 Intake Total 0 760 530 400 Output Total 2400 1999 Balance 0 -7754 -1450 400 Meds/Results Medications: Active Medications Generic Name Dose Route Start Last Admin Trade Name Freq PRN Reason Stop
--- NOTE | 2022-10-28 10:33 | P.PNNP_ITS ---
Progress Note: A&P Assessment and Plan (1) End stage renal disease: Code(s): N18.6 - End stage renal disease Status: Chronic Assessment and Plan: * HD yesterday -- next treatment due on Sunday * continue M/W/F dialysis schedule while hospitalized * follow electrolytes, volume status, and clearance (2) Acute on chronic respiratory failure with hypoxia: Code(s): J96.21 - Acute and chronic respiratory failure with hypoxia Status: Acute Assessment and Plan: * multifactorial etiology: * known hx of COPD * volume overload * pulmonary HTN * anemia * on supplemental oxygen at baseline * continue bronchodilators * DUF (dry ultrafiltration) on (10/26/22) and HD yesterday to maximize fluid removal * follow respiratory status (3) Anemia: Code(s): D64.9 - Anemia, unspecified Status: Chronic Assessment and Plan: * chronic issue/problem * partly related to ESRD * Epogen with HD * PRBC transfusion per protocol * s/p EGD yesterday (10/26/22) -- polyps noted but no active bleeding found * follow trend H/H (4) Hypertension: Code(s): I10 - Essential (primary) hypertension Status: Chronic Assessment and Plan: * reasonable control * continue home medications * follow trend of hemodynamics (5) Diabetes: Code(s): E11.9 - Type 2 diabetes mellitus without complications Status: Chronic Assessment and Plan: * follow accuchecks * glycemic control per hospitalists Will continue to follow. Subjective Date/time seen: 10/28/22 10:33 Interval history: Follow-up for end stage renal disease on hemodialysis. Tolerated hemodialysis treatment yesterday without any issues or problems; H/H stable if not better at this time; breathing/respiratory status seems closer to baseline currently; no other acute issues/events overnight or earlier this morning. Exam Narrative: General: elderly chronically ill-appearing female in NAD Heart: normal S1 and S2; no rub Lungs: coarse breath sounds noted Abdomen: soft, nondistended, positive bowel sounds Extremities: no cyanosis or clubbing; no edema Skin: warm and intact Objective Data Vital Signs Vital Signs: Vital Signs Temp Pulse Resp BP Pulse Ox O2 Del Method O2 Flow Rate 10/28/22 08:00 80 10/28/22 08:00 77 16 99 Nasal Cannula 3 10/28/22 08:40 77 16 99 10/28/22 08:30 98 Nasal Cannula 3 10/28/22 06:00 97.1 F L 78 20 174/51 H 94 10/28/22 04:00 78 10/28/22 00:00 84 10/27/22 21:38 97.6 F 76 20 173/54 H 97 10/27/22 19:40 66 18 100 Nasal Cannula 4 Intake/Output Intake/Output: Intake & Output 10/25/22 10/26/22 10/27/22 10/28/22 23:59 23:59 23:59 23:59 Intake Total 0 760 530 640 Output Total 2400 2000 Balance 0 -8737 -0854 640 Meds/Results Medications: Active Medications Generic Name Dose Route Start Last Admin Trade Name Orvilleq PRN Reason Stop Dose Admin Acetaminophen 650 mg 10/25/22 19:49 10/27/22 11:30 Acetaminophen 325 Mg Tablet PO 650 mg Q6H PRN Administration Mild Pain (1-3)
--- NOTE | 2022-10-28 10:33 | PM.PNNEP ---
Progress Note: A&P Assessment and Plan (1) End stage renal disease: Code(s): N18.6 - End stage renal disease Status: Chronic Assessment and Plan: HD yesterday -- next treatment due on Sunday continue M/W/ dialysis schedule while hospitalized follow electrolytes, volume status, and clearance (2) Acute on chronic respiratory failure with hypoxia: Code(s): J96.21 - Acute and chronic respiratory failure with hypoxia Status: Acute Assessment and Plan: multifactorial etiology: known hx of COPD volume overload pulmonary HTN anemia on supplemental oxygen at baseline continue bronchodilators DUF (dry ultrafiltration) on (10/26/22) and HD yesterday to maximize fluid removal follow respiratory status (3) Anemia: Code(s): D64.9 - Anemia, unspecified Status: Chronic Assessment and Plan: chronic issue/problem partly related to ESRD Epogen with HD PRBC transfusion per protocol s/p EGD yesterday (10/26/22) -- polyps noted but no active bleeding found follow trend H/H (4) Hypertension: Code(s): I10 - Essential (primary) hypertension Status: Chronic Assessment and Plan: reasonable control continue home medications follow trend of hemodynamics (5) Diabetes: Code(s): E11.9 - Type 2 diabetes mellitus without complications Status: Chronic Assessment and Plan: follow accuchecks glycemic control per hospitalists Will continue to follow. Subjective Date/time seen: 10/28/22 10:33 Interval history: Follow-up for end stage renal disease on hemodialysis. Tolerated hemodialysis treatment yesterday without any issues or problems; H/H stable if not better at this time; breathing/respiratory status seems closer to baseline currently; no other acute issues/events overnight or earlier this morning. Exam Narrative: General: elderly chronically ill-appearing female in NAD Heart: normal S1 and S2; no rub Lungs: coarse breath sounds noted Abdomen: soft, nondistended, positive bowel sounds Extremities: no cyanosis or clubbing; no edema Skin: warm and intact Objective Data Vital Signs Vital Signs: Vital Signs Temp Pulse Resp BP Pulse Ox O2 Del Method O2 Flow Rate 10/28/22 08:00 80 10/28/22 08:00 77 16 99 Nasal Cannula 3 10/28/22 08:40 77 16 99 10/28/22 08:30 98 Nasal Cannula 3 10/28/22 06:00 97.1 F L 78 20 174/51 H 94 10/28/22 04:00 78 10/28/22 00:00 84 10/27/22 21:38 97.6 F 76 20 173/54 H 97 10/27/22 19:40 66 18 100 Nasal Cannula 4 Intake/Output Intake/Output: Intake & Output 10/25/22 10/26/22 10/27/22 10/28/22 23:59 23:59 23:59 23:59 Intake Total 0 760 530 640 Output Total 2400 2000 Balance 0 1640 -1470 640 Meds/Results Medications: Active Medications Generic Name Dose Route Start Last Admin Trade Name Freq PRN Reason Stop Dose Admin Acetaminophen 650 mg 10/25/22 19:49 10/27/22 11:30 Acetaminophen 325 Mg Tablet PO 650 mg Q6H PRN Administration Mild Pain (1-3) Albuterol 2.5 mg 10/25/22 19:49 Albuterol Sulfate Neb 2.5 Mg/3 Ml Inh INHALATION Q6HRT PRN Shortness Of Breath Dextrose 12.5 gm 10/25/22 19:59 Dextrose 50% 25 Gm/50 Ml Syringe IV PUSH PRN PRN Hypoglycemia Protocol Furosemide 40 mg 10/26/22 09:00 10/28/22 16:23 Furosemide Inj 40 Mg/4 Ml Vial IV PUSH 40 mg BID LAUREN Administration Glucagon 1 mg 10/25/22 19:59 Glucagon For Inj 1 Mg Vial IM PRN PRN Hypoglycemia Protocol Glucose 15 gm 10/25/22 19:59 Glucose Oral Gel 15 Gm Of Glucse In 37.5 Gm Tube PO PRN PRN Hypoglycemia Protocol Guaifenesin 600 mg 10/25/22 21:00 10/28/22 08:34 Guaifenesin 12 Hr 600 Mg Tabcr PO 600 mg Q12HR LAUREN Administration Hydralazine HCl 10 mg 10/25/22 19:59 10/27/22 21:25 Hydralazine Hcl
--- NOTE | 2022-10-28 11:35 | PM.DS ---
DS: Admitting Diagnosis Discharge Date 10/28/22 Admitting Diagnosis ESRD, anemia, occult blood positive. DS: Discharge Diagnosis Discharge Diagnosis (1) CHF exacerbation: Code(s): I50.9 - Heart failure, unspecified Status: Acute Assessment and Plan: Acute on top of chronic diastolic CHF exacerbation most likely related to fluid overload most likely related to ESRD IV diuresis dialysis per Nephrology Troponin trending down, likely elevated due to ESRD Echocardiogram showing EF of 65-70%, severely enlarged right atrial chamber, mitral valve severely calcified has thickened leaflets and mild for regurg. BNP 7930. It is to note that this is the lowest BNP the patient has had At [facility]. (2) Anemia: Code(s): D64.9 - Anemia, unspecified Status: Chronic Assessment and Plan: Acute on top of chronic blood loss anemia. Patient has history of anemia due to GI bleeds requiring transfusions. Patient required transfusion of 1 unit of PRBCs for hemoglobin of 6.4 on 10/25/2022 IV Protonix monitor H&H transfusion if hemoglobin is less than 7 tele monitor GI consulted and appreciate recommendations. EGD performed revealing non bleeding gastric and duodenal polyps Small-bowel follow-through normal. (3) Acute respiratory failure with hypoxia and hypercarbia: Code(s): J96.01 - Acute respiratory failure with hypoxia; J96.02 - Acute respiratory failure with hypercapnia Status: Acute Assessment and Plan: Most likely related to pulmonary edema IV Lasix dialysis per Nephrology telemonitor Patient able to be weaned O2 home O2 settings. (4) Type 2 diabetes mellitus: Code(s): E11.9 - Type 2 diabetes mellitus without complications Status: Chronic Assessment and Plan: insulin sliding scale pending home medication reconciliation (5) HTN (hypertension): Qualifiers: Hypertension type: primary hypertension Qualified Code(s): I10 - Essential (primary) hypertension Code(s): I10 - Essential (primary) hypertension Status: Chronic Assessment and Plan: patient at home on amlodipine and clonidine p.r.n. IV hydralazine added (6) COPD (chronic obstructive pulmonary disease): Code(s): J44.9 - Chronic obstructive pulmonary disease, unspecified Status: Acute Assessment and Plan: stable inhaler treatment as needed pending home medication reconciliation (7) End stage renal disease: Code(s): N18.6 - End stage renal disease Status: Chronic Assessment and Plan: nephrology consulted DS: Summary Hospital Course Hospital Course: This is an 87-year-old female with past medical history of ESRD, chronic respiratory failure, hypertension the presented to the ED on 10/25/2022 with worsening shortness of breath after finishing dialysis. Patient chronically wears 2-3 L of oxygen at home. Patient required 4 L in the ED due to stabbing in that 80s. X-ray showing pulmonary congestion/ pulmonary edema. Patient's hemoglobin found to be 6.8 and occult blood positive. Patient received 1 unit of PRBCs in the ED. Patient has a history of GI bleeds and has had multiple EGDs in the past. GI consulted an EGD performed that did not reveal active bleeding but did show some duodenal and gastric polyps. Small-bowel follow-through performed and was normal. Patient has never had a over evidence of bleeding, black tarry stools, bright red blood per rectum, etc. Nephrology consulted for dialysis. Patient gets dialysis on Sunday. Active source of bleeding was not found. Patient's anemia likely related to end-stage renal disease. serial H&Hs remained stable after transfusion. Patient shortness of breath resolved during hospital stay. Patient was able to return to home O2 settings. Is advised that patient follow-up with Nephrology as an outpatient. Hemoglobin should also be monito
[2022-10-28 11:40] LABS: Glucose Point of Care 165 mg/dl (65-105)
[2022-10-28 16:46] LABS: Glucose Point of Care 70 mg/dl (65-105)
[2022-10-30 13:46] LABS: Haptoglobin 98 mg/dL (43-212)
== END 2022-10-28 17:30 ==
LOC: ANHED 19:37 → ANH3MEDSUR 10-26 07:47
PROVIDERS: Emergency Medicine; Internal Medicine Gastroenterology; Internal Medicine Nephrology; Admitting Provider Internal Medicine; Emergency Provider Physician Assistant; PCP Internal Medicine; Visit Provider Internal Medicine
PROC: 0DJ08ZZ Inspection of Upper Intestinal Tract, Via Natural or Artificial Opening Endoscopic (ICD-10-PCS; CPT 43235; principal; 2022-10-26 12:30)
DX: K31.7 Polyp of stomach and duodenum (principal); D13.2 Benign neoplasm of duodenum; I13.0 Hypertensive heart and chronic kidney disease with heart failure and stage 1 through stage 4 chronic kidney disease, or unspecified chronic kidney disease; E11.22 Type 2 diabetes mellitus with diabetic chronic kidney disease; N18.6 End stage renal disease; D63.1 Anemia in chronic kidney disease; Z99.2 Dependence on renal dialysis; J96.01 Acute respiratory failure with hypoxia; J96.21 Acute and chronic respiratory failure with hypoxia; I48.91 Unspecified atrial fibrillation; J44.9 Chronic obstructive pulmonary disease, unspecified; R19.5 Other fecal abnormalities; J90 Pleural effusion, not elsewhere classified; I08.1 Rheumatic disorders of both mitral and tricuspid valves; H40.9 Unspecified glaucoma; E78.5 Hyperlipidemia, unspecified; E03.9 Hypothyroidism, unspecified; I27.20 Pulmonary hypertension, unspecified; M19.90 Unspecified osteoarthritis, unspecified site; E63.9 Nutritional deficiency, unspecified; Z79.51 Long term (current) use of inhaled steroids; Z79.1 Long term (current) use of non-steroidal anti-inflammatories (NSAID); Z79.899 Other long term (current) drug therapy
CPT/HCPCS: 43239; 43251; 36415; 36430; 71045; 74250; 80053; 82607; 82728; 82746; 82948; 83010; 83540; 83550; 83615; 83880; 84484; 85014; 85018; 85025; 85046; 86140; 86706; 86850; 86900; 86901; 86923; 87081; 87340; 88305; 93005; 93306; 96374; 96375; 99285; A9270; C9113; G0257; G0378; J0360; J1644; J1940; J2704; J7030; J7040; J7050; P9016; Q5105

== ENCOUNTER 2022-11-14 21:29 | Inpatient (IN) | payer MEDICARE, MEDICAID, SELFPAY ==
--- NOTE | ~2022-11-14 | XR_ITS ---
EXAMINATION: XR chest 2V Exam Date/Time: 11/14/2022 22:15 CDT HISTORY: shortness of breath Comparison: 10/28/2022 and 05/03/2022. RESULT: Lines, tubes, and devices: Surgical clip over the stomach. Lungs and pleura: Diffuse reticular opacities. Hazy opacity in the right lung base. Mild right later al costophrenic angle blunting. Cardiomediastinal silhouette: Stable. Other: No acute osseous or upper abdominal finding. IMPRESSION: Interstitial edema. Small right pleural effusion. Right lower lung airspace disease may represent ate lectasis or superimposed pneumonia. Reviewed, dictated and finalized at location K. IMPRESSION: Interstitial edema. Small right pleural effusion. Right lower lung airspace dis ease may represent atelectasis or superimposed pneumonia.
--- NOTE | ~2022-11-14 | XR_ITS ---
EXAMINATION: XR barium swallow modified DATE: 11/15/2022 INDICATION: Dysphagia. TECHNIQUE: The patient was given barium-containing material of multiple consistencies to swallow by t he speech pathologist while I performed fluoroscopy. Fluoroscopy exposure time was 1.5 minutes. The n umber of fluoroscopy images saved to the PACS was 1. Dose-area product was 1.092 Gy-cm^2. FINDINGS: There is reduced laryngeal elevation and reduced tongue base retraction. There is laryngeal penetrati on with uncontrolled thin liquids. IMPRESSION: 1. Laryngeal penetration with uncontrolled thin liquids. 2. Please refer to the speech therapy report for recommendations. Reviewed, dictated and finalized at location A.
--- NOTE | ~2022-11-14 | XR_ITS ---
EXAMINATION: XR chest 2V DATE: 11/15/2022 23:21 INDICATION: Pneumonia, unspecified TECHNIQUE: AP and lateral views of the chest are obtained. COMPARISON: 11/14/2022 FINDINGS: There are bibasilar airspace opacities with interval worsening. There is a stable, mild dif fuse interstitial pattern. A small stable right pleural effusion is present. There is no pneumothorax . The cardiomediastinal silhouette is stable. A small amount of enteric contrast is seen from recent modified barium swallow. No pleural effusion or pneumothorax. The cardiomediastinal silhouette is nor mal. There is moderate thoracic spondylosis. IMPRESSION: 1. Bibasilar airspace opacities with increase, consistent with atelectasis versus pneumonia. 2. Small right pleural effusion. 3. Mild pulmonary edema, stable. Reviewed, dictated and finalized at location A. IMPRESSION: 1. Bibasilar airspace opacities with increase, consistent with atelectasis vers us pneumonia. 2. Small right pleural effusion. 3. Mild pulmonary edema, stable.
[2022-11-14 21:29] VITALS: BP 149/42; PULSE 80; RESP 24; TEMP 36.5; O2SAT 90
--- NOTE | 2022-11-14 21:34 | ECG_ITS ---
Measurements Intervals [place] Rate: 81 P: 113 SC: 208 QRS: -18 QRSD: 122 T: 119 QT: 378 QTc: 440 Interpretive Statements SINUS RHYTHM LEFT VENTRICULAR HYPERTROPHY AND ST-T CHANGE [VOLTAGE CRITERIA PLUS ST/T ABNORMALITY] COMPARED TO ECG 10/25/2022 15:45:46 NO SIGNIFICANT CHANGES Electronically Signed On 11-15-2022 9:09:26 CDT by Zoe Horne M.D.
[2022-11-14 21:50] VITALS: O2SAT 93
[2022-11-14 21:54] LABS: Basophils Absolute Auto 0.1 K/mm3 (0.0-0.1); Basophils Percent Auto 0.7 % (0.2-1.2); Eosinophils Absolute Auto 0.4 K/mm3 (0-0.3); Eosinophils Percent Auto 5.4 % (0-4.4); Hematocrit 24.7 % (37.0-47.0); Hemoglobin 7.1 g/dL (12.0-15.0); Immature Granulocyte Percent A 1.4 % (0-0.5); Lymphocytes Percent Auto 15.7 % (18.3-44.2); Mean Corpuscular HGB Conc 28.7 g/dl (32-36); Mean Corpuscular Hemoglobin 29.6 pg (26-34); Mean Corpuscular Volume 102.9 fl (80-100); Monocytes Absolute Auto 0.7 K/mm3 (0.1-0.6); Monocytes Percent Auto 10.6 % (2.6-8.5); Neutrophils Absolute Auto 4.6 K/mm3 (1.3-6.7); Neutrophils Percent Auto 66.2 % (45.5-73.1); Platelet Count Result 218 k/mm3 (150-375); Red Cell Distribution Width 14.9 % (11.5-14.5)
[2022-11-14 22:08] LABS: Alanine Aminotransferase 8 U/L (6-35); Albumin Level 3.5 g/dL (3.5-5.1); Alkaline Phosphatase 47 U/L (38-126); Anion Gap 6 mmol/L (8-16); Aspartate Amino Transferase 17 U/L (14-36); Bilirubin,Total 0.3 mg/dL (0.2-1.3); Blood Urea Nitrogen 50 mg/dL (7-17); Calcium 7.2 mg/dL (8.4-10.2); Carbon Dioxide 35 mmol/L (22-30); Chloride 97 mmol/L (98-107); Estimated CRCL calculation 10 ml/min; Estimated Glomerular Filt Rate 11; Glucose 103 mg/dL (65-110); Potassium 4.3 mmol/L (3.4-5.0); Sodium 138 mmol/L (137-145)
--- NOTE | 2022-11-14 22:11 | PC.NURSE ---
Attempted to straight cath pt but did not get any urine d/t does dialysis
[2022-11-14 22:14] LABS: Platelet Estimate Adequate (Adequate)
[2022-11-14 22:15] LABS: Hypochromasia 1+ (NORMAL); Ovalocytes 1+ (NORMAL); Schistocytes None Seen (NORMAL)
[2022-11-14] MEDS: IPRATROPIUM BR 0.02% INH SOLN 0.5 MG/2.5 ML VIAL INHALATION (22:30)
[2022-11-14 22:31] VITALS: PULSE 83; RESP 24
[2022-11-14] MEDS: ALBUTEROL SULFATE NEB 2.5 MG/3 ML INH INHALATION (22:31)
[2022-11-14 22:56] LABS: Lipase 300 U/L (23-300); Magnesium 2.1 mg/dL (1.6-2.3)
[2022-11-14 22:57] LABS: Lactic Acid Reflex 0.9 mmol/L (0.7-2.0)
[2022-11-14 23:09] LABS: NT Pro B Type Natriuretic Pept 17800 pg/mL (19.9-100)
[2022-11-14 23:18] LABS: Prothrombin Time 13.5 Seconds (11.1-14.7)
[2022-11-14 23:19] LABS: Partial Thromboplastin Time 28.8 SECONDS (22.3-36.8)
[2022-11-14 23:27] LABS: Influenza A QL RT-PCR Negative (Negative); Influenza B QL RT-PCR Negative (Negative); SARS-CoV-2 RNA PCR Negative (Negative)
[2022-11-15 00:09] LABS: Procalcitonin 1.3 ng/mL
[2022-11-15 12:10] LABS: Glucose Point of Care 80 mg/dl (65-105)
--- NOTE | 2022-11-15 12:27 | CONS_ITS ---
REPORT TITLE Renal Consultation. BODY AFTER REPORT TITLE HISTORY OF PRESENT ILLNESS The patient is a very pleasant 87-year-old lady, who has multiple medical problems including end-stage renal disease on dialysis 3 times a week, senile dementia of the Alzheimer's type, anemia of chronic kidney disease, renal osteodystrophy. ?The patient lives in a nursing facility. ?She was found to be more short of breath yesterday and she had a cough. ?The patient was sent over to the ER. ?She was evaluated in the ER and found to be anemic and short of breath. ?The patient received supportive care. ?She was tested for Covid and the flu and these were negative. ?The patient was admitted to the floor. The patient is coughing. ?She has some shortness of breath with her coughing, but does not seem to have shortness of breath between times. ?She has no chest pain, no belly pain. ?No nausea, vomiting, diarrhea, or constipation. ?No ENT or neurologic issues other than her chronic dementia. ?No endocrine or psychiatric issues. ?No skin rash, joint pains, or swelling. ?She does not make much urine, but no urologic issues besides that. ? PAST HISTORY As above. SOCIAL HISTORY She does not smoke or drink. ?She lives in a retirement. PHYSICAL EXAMINATION GENERAL: ?She is a well-developed, well-nourished female, coughing frequently, but otherwise in no acute distress. ? VITAL SIGNS: ?Blood pressure 142/42, respiratory rate 24, pulse 83, temperature is 97.7. SKIN: ?Warm and dry. ?No rash. ?No subcu nodules. ? HEAD: ?Normocephalic, atraumatic. ? EYES: ?Normal sclerae and conjunctivae. MOUTH: ?Normal lips and gums. NECK: ?No nodes. ?No thyromegaly. BACK: ?No CVA tenderness. LUNGS: ?Symmetric and mildly coarse at both bases. ? HEART: ?Regular rate and rhythm. ?No rub or gallop. ? ABDOMEN: ?Bowel sounds are positive. ?Soft, nontender. ?No HSM. ?No masses. ?No bruits. ? EXTREMITIES: ?Show no cyanosis, clubbing, or edema. ? PSYCH: ?The patient is calm and comfortable. ?Not anxious or depressed. ?She is a bit confused. ? NEURO: ?She is a bit confused. ?Motor is 5/5. ?Cranial nerves II through XII intact. ?Reflexes 2+ and equal in the biceps, patellar tendons. Cerebellar, normal rapid alternating movements. LABORATORY DATA White count 7, hemoglobin 7.1, platelet count 318, calcium 7.2, sodium 138, potassium 4.3, chloride 97, CO2 of 35, glucose 103, BUN 50, creatinine 3.8. IMPRESSION The patient has end-stage renal disease. ?She is due for dialysis today. ?Volume status seems okay. ?We will try removing 1-2 L as tolerated. ?The potassium is okay, so we will use a 3K bath.? The patient has a cough and shortness of breath. ?She is getting antibiotics. ?Hospitalists are managing this.? The patient has anemia. ?Hemoglobin is 7.1. ?She does have a past history of bleeding. ?She is getting another hemoglobin today.? Renal osteodystrophy. ?We will check a phosphorus level tomorrow. ? ? Thank you very much. [place]
[2022-11-15 12:37] LABS: Glucose Point of Care 104 mg/dl (65-105)
[2022-11-15 17:03] LABS: Glucose Point of Care 83 mg/dl (65-105)
[2022-11-15 19:01] LABS: Hematocrit 24.8 % (37.0-47.0); Hemoglobin 7.6 g/dL (12.0-15.0)
[2022-11-15 20:00] VITALS: PULSE 77
[2022-11-15 22:00] VITALS: BP 189/48; PULSE 87; RESP 18; TEMP 36.4; O2SAT 95
[2022-11-15] MEDS: cloNIDine HCL 0.1 MG TABLET PO (22:27)
[2022-11-15] MEDS: busPIRone HCL 2.5 MG, busPIRone HCL 5 MG 7.5 MG PO (22:27)
[2022-11-15 22:28] LABS: Glucose Point of Care 93 mg/dl (65-105)
[2022-11-15 23:28] VITALS: O2SAT 95
--- NOTE | 2022-11-15 23:39 | PC.NURSE ---
Paper documentation exists on this patient due to [employer] downtime on 11/15/22 from 0030 to [1930] .
[2022-11-16] VITALS (17 sets, daily range): BP systolic 137–166; BP diastolic 43–54; PULSE 67–89; RESP 16–20; TEMP 36.1–36.4; O2SAT 92–100
[2022-11-16 05:59] LABS: Hemoglobin 7.8 g/dL (12.0-15.0); Mean Corpuscular Hemoglobin 30.5 pg (26-34); Mean Corpuscular Volume 101.6 fl (80-100); Platelet Count Result 228 k/mm3 (150-375); Red Blood Count 2.56 M/mm3 (4.2-5.4); Red Cell Distribution Width 15.3 % (11.5-14.5); White Blood Count 7.1 K/mm3 (4.5-10.0)
[2022-11-16] MEDS: LEVOTHYROXINE SODIUM 100 MCG TABLET PO (06:01)
[2022-11-16] MEDS: VANCOMYCIN 1,000 MG/NS 250 ML 1,000 MG/250 ML BAG 250 MG IVPB (06:01)
[2022-11-16 06:25] LABS: Anion Gap 5 mmol/L (8-16); Blood Urea Nitrogen 34 mg/dL (7-17); Calcium 8.1 mg/dL (8.4-10.2); Carbon Dioxide 35 mmol/L (22-30); Chloride 98 mmol/L (98-107); Estimated CRCL calculation 13 ml/min; Estimated Glomerular Filt Rate 15; Glucose 85 mg/dL (65-110); Sodium 138 mmol/L (137-145)
--- NOTE | 2022-11-16 06:30 | CONS_ITS ---
DATE OF CONSULTATION: 11/15/2022 HISTORY OF PRESENT ILLNESS: This is an 87-year-old white female patient, I am asked to see because of anemia. The patient admitted to the hospital with volume overload, felt to be in congestive heart failure. She has end-stage renal disease, currently on dialysis 3 days a week. The patient has an extensive history of ongoing anemia. On previous admissions was also found to have Hemoccult-positive stools. The patient underwent and an EGD when last admitted to the hospital in October of 2022, at that time, duodenal polyp was identified. There was evidence of a clip in the body of the stomach, suggesting she has had an endoscopy recently. This is presumed to have been at [facility] in [place]. The patient also had colonoscopy in March of 2023 at that time, diverticular disease was identified. Stools have been occult positive on multiple occasions. In general, hemoglobin is low, felt to be secondary to chronic kidney disease, but she has had occult blood noted in previous stools. PHYSICAL EXAMINATION: GENERAL: The patient is alert, but not oriented. HEENT: Reveals no icterus. LUNGS: Clear with occasional rhonchi. HEART: Without murmur. ABDOMEN: Bowel sounds present. Soft and nontender. EXTREMITIES: She has no pedal edema. LABORATORY TEST: Revealed an elevated BNP over 17,000. BUN of 50, creatinine 3.8. H and H with a hemoglobin of 7.1, hematocrit 24.7, and MCV 102. IMPRESSION: This patient has chronic anemia. She does have occult blood in stool that is chronic. End-stage renal disease with volume overload. At the present time, would monitor hemoglobin, transfuse as necessary. Stool Hemoccult will be obtained to further evaluate the status of blood loss. Would not plan repeat invasive testing at this time in this elderly lady with multiple comorbid diseases. LYNDA JONES M.D. EMBROIDERY SUPERVISOR EMBROIDERY SUPERVISOR D Sheri MT: Yuliana
[2022-11-16 07:27] LABS: Red Blood Count 2.17 M/mm3 (4.2-5.4); White Blood Count 6.6 K/mm3 (4.5-10.0)
[2022-11-16 07:28] LABS: Hematocrit 22.1 % (37.0-47.0); Hemoglobin 6.6 g/dL (12.0-15.0); Mean Corpuscular Volume 101.8 fl (80-100)
[2022-11-16 07:29] LABS: Eosinophils Percent Auto 2.9 % (0-4.4); Immature Granulocyte Percent A 1.2 % (0-0.5); Lymphocytes Percent Auto 12.9 % (18.3-44.2); Mean Corpuscular HGB Conc 29.9 g/dl (32-36); Mean Corpuscular Hemoglobin 30.4 pg (26-34); Neutrophils Percent Auto 73.4 % (45.5-73.1); Platelet Count Result 211 k/mm3 (150-375); Red Cell Distribution Width 14.8 % (11.5-14.5)
[2022-11-16 07:37] LABS: Basophils Percent Auto 0.6 % (0.2-1.2); Immature Granulocyte Absolute 0.08 K/mm3 (0.00-0.031); Neutrophils Absolute Auto 4.8 K/mm3 (1.3-6.7)
[2022-11-16 07:38] LABS: Chloride 93 mmol/L (98-107); Eosinophils Absolute Auto 0.2 K/mm3 (0-0.3); Lymphocytes Absolute Auto 0.85 K/mm3 (0.9-3.2); Monocytes Absolute Auto 0.6 K/mm3 (0.1-0.6); Potassium 4.5 mmol/L (3.4-5.0); Sodium 139 mmol/L (137-145)
[2022-11-16 07:39] LABS: Anion Gap 7 mmol/L (8-16); Blood Urea Nitrogen 60 mg/dL (7-17); Calcium 8.1 mg/dL (8.4-10.2); Carbon Dioxide 39 mmol/L (22-30); Estimated CRCL calculation 7 ml/min; Estimated Glomerular Filt Rate 8; Glucose 72 mg/dL (65-110); NT Pro B Type Natriuretic Pept 23600 pg/mL (19.9-100)
[2022-11-16] MEDS: hydrALAZINE HCL 20 MG/ML VIAL 10 MG IV PUSH (07:40)
[2022-11-16 07:54] LABS: Glucose Point of Care 77 mg/dl (65-105)
[2022-11-16] MEDS: amLODIPine BESYLATE 5 MG TABLET PO (08:59)
[2022-11-16] MEDS: lisinopriL 20 MG TABLET PO (08:59)
[2022-11-16] MEDS: DOCUSATE SODIUM 100 MG CAPSULE PO ×2 (08:59→20:44)
[2022-11-16] MEDS: FERROUS SULFATE 324 MG TABLET PO ×2 (08:59→17:29)
[2022-11-16] MEDS: PANTOPRAZOLE SODIUM IV 40 MG VIAL IV PUSH (08:59)
[2022-11-16] MEDS: SPIRONOLACTONE 12.5 MG TABLET PO (08:59)
[2022-11-16] MEDS: busPIRone HCL 2.5 MG, busPIRone HCL 5 MG 7.5 MG PO ×2 (09:00→20:44)
[2022-11-16] MEDS: cloNIDine HCL 0.1 MG TABLET PO ×2 (09:01→20:44)
[2022-11-16] MEDS: IPRATROPIUM BR 0.02% INH SOLN 0.5 MG/2.5 ML VIAL INHALATION ×3 (09:13→19:59)
--- NOTE | 2022-11-16 10:53 | PM.IMPN ---
Progress Note: A&P Assessment and Plan (1) CHF exacerbation: Code(s): I50.9 - Heart failure, unspecified Status: Acute Assessment and Plan: Complicated by end-stage renal disease. Hemodialysis per Nephrology. Monitor labs and volume status. Respiratory status has improved today Continue cardiac medications. (2) Type 2 diabetes mellitus: Code(s): E11.9 - Type 2 diabetes mellitus without complications Status: Chronic Assessment and Plan: Sliding scale insulin as needed. (3) HTN (hypertension): Qualifiers: Hypertension type: primary hypertension Qualified Code(s): I10 - Essential (primary) hypertension Code(s): I10 - Essential (primary) hypertension Status: Chronic Assessment and Plan: Monitor blood pressure (4) Anemia: Code(s): D64.9 - Anemia, unspecified Status: Chronic Assessment and Plan: History GI bleed. Transfuse as needed. Appreciate GI input. (5) GI bleed: Code(s): K92.2 - Gastrointestinal hemorrhage, unspecified Status: Acute Assessment and Plan: No plan from GI. (6) End stage renal disease: Code(s): N18.6 - End stage renal disease Status: Chronic Assessment and Plan: Hemodialysis (7) Gastroesophageal reflux disease: Code(s): K21.9 - Gastro-esophageal reflux disease without esophagitis Status: Acute Assessment and Plan: PPI (8) Hyperlipidemia: Code(s): E78.5 - Hyperlipidemia, unspecified Status: Acute Subjective Date/time seen: 11/16/22 10:53 Interval history: Doing okay today. No new complaints Review of Systems Review of Systems: 10 point ROS negative except as stated in HPI / Subjective Exam Narrative: General: alert and oriented Psych: appropriate mood nad affect Eyes: PERRLA Neck: Trachea midline, no new lesions Skin: no changes Lungs: CTA Cardiac: Normal S1,S2, no MGR ABD: soft, nd, nt, nbs Ext: no new lesions, no cce Vasc: Pulses intact Objective Data Vital Signs Vital Signs: Vital Signs - 24 hr 11/15/22 23:28 11/15/22 22:00 11/16/22 00:30 Temperature 97.5 F L Pulse Rate 87 Respiratory Rate 18 Blood Pressure 189/48 H 137/54 L Pulse Oximetry 95 95 Oxygen Delivery Nasal Cannula Oxygen Flow Rate 4 11/15/22 20:00 11/16/22 00:00 11/16/22 04:00 Temperature Pulse Rate 77 67 78 Respiratory Rate Blood Pressure Pulse Oximetry Oxygen Delivery Oxygen Flow Rate 11/16/22 06:00 11/16/22 09:10 11/16/22 09:10 Temperature 97.5 F L Pulse Rate 81 78 78 Respiratory Rate 20 20 20 Blood Pressure 159/50 H Pulse Oximetry 100 92 Oxygen Delivery Nasal Cannula Oxygen Flow Rate 4 11/16/22 09:18 Temperature Pulse Rate 80 Respiratory Rate 20 Blood Pressure Pulse Oximetry Oxygen Delivery Oxygen Flow Rate Intake/Output Intake/Output: Intake & Output 11/13/22 11/14/22 11/15/22 11/16/22 23:59 23:59 23:59 23:59 Intake Total 100 Balance 100 Meds/Results Medications: Active Medications Generic Name Dose Route Start Last Admin Trade Name Freq PRN Reason Stop Dose Admin Albuterol 2.5 mg 11/15/22 19:50 Albuterol Sulfate Neb 2.5 Mg/0.5 Ml Inh INHALATION Q6HRT PRN Shortness Of Breath Amlodipine Besylate 5 mg 11/16/22 09:00 11/16/22 08:59 Amlodipine Besylate 5 Mg Tablet PO 5 mg DAILY LAUREN Administration Buspirone HCl 2.5 mg/ 7.5 mg 11/15/22 21:00 11/16/22 09:00 Buspirone HCl 5 mg PO 7.5 mg Q12HR LAUREN Administration Clonidine HCl 0.1 mg 11/15/22 21:00 11/16/22 09:01 Clonidine Hcl 0.1 Mg Tablet PO 0.1 mg Q12HR LAUREN Administration Dextrose 12.5 gm 11/15/22 17:52 Dextrose 50% 25 Gm/50 Ml Syringe IV PUSH PRN PRN Hypoglycemia Protocol Docusate Sodium 100 mg 11/15/22 21:00 11/16/22 08:59 Docusate Sodium 100 Mg Capsule PO 100 mg Q12HR LAUREN Administration Ep
[2022-11-16 11:16] LABS: Glucose Point of Care 108 mg/dl (65-105)
--- NOTE | 2022-11-16 11:21 | PM.PNNEP ---
Progress Note: A&P Assessment and Plan (1) ESRD (end stage renal disease): Code(s): N18.6 - End stage renal disease Status: Chronic Assessment and Plan: the patient has end-stage renal disease. Probably due to hypertension and diabetes. Volum She had dialysis yesterday and did well. She is due for dialysis tomorrow. Potassium looks okay. (2) Shortness of breath: Code(s): R06.02 - Shortness of breath Status: Acute Assessment and Plan: The patient has shortness of breath. There was a question of possible aspiration yesterday as well. So she is on thickened liquids. will get more fluid off tomorrow as volume may be an issue. She is more comfortable today though after dialysis. (3) Insulin dependent type 2 diabetes mellitus: Code(s): E11.9 - Type 2 diabetes mellitus without complications; Z79.4 - termite control representative (current) use of insulin Status: Chronic Assessment and Plan: On Accu-Cheks and sliding-scale insulin (4) HTN (hypertension): Qualifiers: Hypertension type: primary hypertension Qualified Code(s): I10 - Essential (primary) hypertension Code(s): I10 - Essential (primary) hypertension Status: Chronic Assessment and Plan: blood pressure is up and down. Removing fluid tomorrow should help. She is on amlodipine, clonidine, lisinopril, Aldactone. Will increase lisinopril (5) Erythropoietin deficiency anemia: Code(s): D63.1 - Anemia in chronic kidney disease Status: Chronic Assessment and Plan: on Epogen (6) Renal osteodystrophy: Code(s): N25.0 - Renal osteodystrophy Status: Acute Assessment and Plan: will check a phosphorus level in the morning Subjective Date/time seen: 11/16/22 11:21 Interval history: Patient is feeling better today. She had dialysis yesterday afternoon. She is a little calmer. She still has a cough Review of Systems Cardiovascular: Cardiovascular: Reports no additional cardiovascular complaints Respiratory: Respiratory: Reports no additional respiratory complaints Gastrointestinal: Gastrointestinal: Reports no additional gastrointestinal complaints Genitourinary: Genitourinary: Reports no additional female genitourinary complaints Exam Narrative: WDWN in NAD skin no rash head ncat lungs course with some rhonchi bilaterally cor reg no rub abd BS+ nontender and soft ext no edema. Objective Data Vital Signs Vital Signs: Vital Signs - 24 hr 11/15/22 23:28 11/15/22 22:00 11/16/22 00:30 Temperature 97.5 F L Pulse Rate 87 Respiratory Rate 18 Blood Pressure 189/48 H 137/54 L Pulse Oximetry 95 95 Oxygen Delivery Nasal Cannula Oxygen Flow Rate 4 11/15/22 20:00 11/16/22 00:00 11/16/22 04:00 Temperature Pulse Rate 77 67 78 Respiratory Rate Blood Pressure Pulse Oximetry Oxygen Delivery Oxygen Flow Rate 11/16/22 06:00 11/16/22 09:10 11/16/22 09:10 Temperature 97.5 F L Pulse Rate 81 78 78 Respiratory Rate 20 20 20 Blood Pressure 159/50 H Pulse Oximetry 100 92 Oxygen Delivery Nasal Cannula Oxygen Flow Rate 4 11/16/22 09:18 Temperature Pulse Rate 80 Respiratory Rate 20 Blood Pressure Pulse Oximetry Oxygen Delivery Oxygen Flow Rate Intake/Output Intake/Output: Intake & Output 11/13/22 11/14/22 11/15/22 11/16/22 23:59 23:59 23:59 23:59 Intake Total 100 Balance 100 Meds/Results Medications: Active Medications Generic Name Dose Route Start Last Admin Trade Name Freq PRN Reason Stop Dose Admin Albuterol 2.5 mg 11/15/22 19:50 Albuterol Sulfate Neb 2.5 Mg/0.5 Ml Inh INHALATION Q6HRT PRN Shortness Of Breath Amlodipine Besylate 5 mg 11/16/22 09:00 11/16/22 08:59 Amlodipine Besylate 5 Mg Tablet PO 5 mg DAILY LAUREN Administration Buspirone HCl 2.5 mg/ 7.5 mg 11/15/22 21:00 11/16/22 09:00
[2022-11-16 16:31] LABS: Glucose Point of Care 88 mg/dl (65-105)
[2022-11-16] MEDS: methylPREDNISolone SOD SUCC 40 MG VIAL IV PUSH (17:30)
[2022-11-16] MEDS: ALBUTEROL SULFATE NEB 2.5 MG/0.5 ML INH INHALATION (19:59)
[2022-11-16 20:13] LABS: Glucose Point of Care 121 mg/dl (65-105)
[2022-11-17] VITALS (33 sets, daily range): BP systolic 107–161; BP diastolic 38–62; PULSE 70–91; RESP 15–20; TEMP 36.4–37; O2SAT 92–100
[2022-11-17] MEDS: IPRATROPIUM BR 0.02% INH SOLN 0.5 MG/2.5 ML VIAL INHALATION ×4 (01:40→20:24)
[2022-11-17] MEDS: ALBUTEROL SULFATE NEB 2.5 MG/0.5 ML INH INHALATION ×3 (01:40→12:52)
[2022-11-17] MEDS: LEVOTHYROXINE SODIUM 100 MCG TABLET PO (05:27)
[2022-11-17 05:54] LABS: Hematocrit 21.6 % (37.0-47.0); Mean Corpuscular HGB Conc 29.6 g/dl (32-36); Mean Corpuscular Hemoglobin 29.6 pg (26-34); Mean Platelet Volume 10.8 fl (7.4-10.4); Platelet Count Result 240 k/mm3 (150-375); Red Blood Count 2.16 M/mm3 (4.2-5.4); Red Cell Distribution Width 15.3 % (11.5-14.5); White Blood Count 6.9 K/mm3 (4.5-10.0)
[2022-11-17 05:56] LABS: Hemoglobin 6.4 g/dL (12.0-15.0)
[2022-11-17 06:10] LABS: Albumin Level 3.5 g/dL (3.5-5.1); Anion Gap 8 mmol/L (8-16); Blood Urea Nitrogen 54 mg/dL (7-17); Calcium 8.4 mg/dL (8.4-10.2); Carbon Dioxide 32 mmol/L (22-30); Chloride 96 mmol/L (98-107); Estimated CRCL calculation 9 ml/min; Estimated Glomerular Filt Rate 10; Glucose 90 mg/dL (65-110); Phosphorus 5.1 mg/dL (2.5-4.5); Potassium 5.9 mmol/L (3.4-5.0); Sodium 136 mmol/L (137-145)
[2022-11-17 08:14] LABS: Glucose Point of Care 72 mg/dl (65-105)
--- NOTE | 2022-11-17 08:34 | WPDGIPROGNO ---
Progress Note: A&P Assessment and Plan (1) Anemia: Code(s): D64.9 - Anemia, unspecified Status: Chronic Assessment and Plan: Patient with anemia on presentation. Patient has a chronic anemia with GI workup recently. Recent EGD revealed several benign polyps both in the stomach and duodenum. recent colonoscopy revealed diverticulosis. Patient has anemia most likely on the basis of chronic kidney disease. Stool Hemoccult previously positive. Plan to repeat stool Hemoccult at this time. This is pending. Suggest continuing to monitor hemoglobin transfuse as necessary. Endoscopy only advised for any signs of active GI bleeding. Continue PPI therapy for empirically. (2) End stage renal disease: Code(s): N18.6 - End stage renal disease Status: Chronic Assessment and Plan: Chronic kidney disease likely etiology for ongoing anemia. Nephrology service following. Patient on Epogen at present. (3) Insulin dependent type 2 diabetes mellitus: Code(s): E11.9 - Type 2 diabetes mellitus without complications; Z79.4 - director long term care (current) use of insulin Status: Chronic (4) CHF exacerbation: Code(s): I50.9 - Heart failure, unspecified Status: Acute Assessment and Plan: Patient admitted with volume overload felt to be secondary congestive heart failure. Subjective Date/time seen: 11/17/22 08:34 Interval history: 87-year-old patient. Remains comfortable at rest. Dark stools were described previously. She has had only 1 bowel movement a day since admission. No active bleeding described. Contacted today by primary care service because of mild decline in hemoglobin. Hemoglobin 6.4 this morning. Stool Hemoccult remains pending. No abdominal pain per patient. Review of Systems Review of Systems: Review of systems noncontributory. Exam Narrative: Physical exam reveals patient to be alert. Vital signs stable. HEENT exam reveals no icterus. Lungs are clear. Heart without murmur. Abdomen bowel sounds present soft nontender. Objective Data Vital Signs Vital Signs: Vital Signs - 24 hr 11/16/22 09:10 11/16/22 09:10 11/16/22 09:18 Temperature Pulse Rate 78 78 80 Respiratory Rate 20 20 20 Blood Pressure Pulse Oximetry 92 Oxygen Delivery Nasal Cannula Oxygen Flow Rate 4 11/16/22 13:56 11/16/22 15:10 11/16/22 15:18 Temperature 97.2 F L Pulse Rate 73 74 78 Respiratory Rate 17 20 20 Blood Pressure 155/43 H Pulse Oximetry 97 Oxygen Delivery Oxygen Flow Rate 11/16/22 12:00 11/16/22 16:00 11/16/22 19:59 Temperature Pulse Rate 69 74 76 Respiratory Rate 20 Blood Pressure Pulse Oximetry Oxygen Delivery Oxygen Flow Rate 11/16/22 20:14 11/16/22 20:15 11/16/22 20:43 Temperature 97 F L Pulse Rate 78 80 Respiratory Rate 20 16 Blood Pressure 166/48 H Pulse Oximetry 93 100 Oxygen Delivery Nasal Cannula Oxygen Flow Rate 3 11/16/22 20:00 11/17/22 01:40 11/17/22 01:54 Temperature Pulse Rate 77 79 Respiratory Rate 20 20 Blood Pressure Pulse Oximetry 93 Oxygen Delivery Nasal Cannula Oxygen Flow Rate 3 11/16/22 20:00 11/17/22 00:00 11/17/22 04:00 Temperature Pulse Rate 89 86 77 Respiratory Rate Blood Pressure Pulse Oximetry Oxygen Delivery Oxygen Flow Rate 11/17/22 06:00 Temperature 98.1 F Pulse Rate 76 Respiratory Rate 16 Blood Pressure 153/50 H Pulse Oximetry 98 Oxygen Delivery Oxygen Flow Rate Intake/Output Intake/Output: Intake & Output 11/14/22 11/15/22 11/16/22 11/17/22 23:59 23:59 23:59 23:59 Intake Total 720 587 Balance 720 587 Meds/Results Medications: Active Medications Generic Name Dose Route Start Last Admin Trade Name Freq PRN Reason Stop Dose Admin Albuterol 2.5 mg 11/16/22 20:00 11/17/22 01:40 Albuterol Sulfate Neb 2.5 Mg/0.5 Ml Inh INHALATION 2.5 mg Q6HRT [facility] Ad
[2022-11-17] MEDS: amLODIPine BESYLATE 5 MG TABLET PO (08:43)
[2022-11-17] MEDS: DOCUSATE SODIUM 100 MG CAPSULE PO ×2 (08:43→21:21)
[2022-11-17] MEDS: cloNIDine HCL 0.1 MG TABLET PO ×2 (08:43→21:21)
[2022-11-17] MEDS: busPIRone HCL 2.5 MG, busPIRone HCL 5 MG 7.5 MG PO ×2 (08:44→21:21)
[2022-11-17] MEDS: SPIRONOLACTONE 12.5 MG TABLET PO (08:44)
[2022-11-17] MEDS: lisinopriL 20 MG TABLET 40 MG PO (08:44)
[2022-11-17] MEDS: PANTOPRAZOLE SODIUM IV 40 MG VIAL IV PUSH (08:44)
[2022-11-17] MEDS: methylPREDNISolone SOD SUCC 40 MG VIAL IV PUSH (08:44)
[2022-11-17] MEDS: FERROUS SULFATE 324 MG TABLET PO ×2 (08:44→17:30)
[2022-11-17] MEDS: SODIUM CHLORIDE 0.9% IV 250 ML 30 ML IV CONT (09:50)
[2022-11-17 10:04] LABS: Immature Reticulocyte Fraction 35.1 % (3.0-15.9); Reticulocyte Hemoglobin Conten 28.7 pg (28.2-35.7); Reticulocyte Percent 3.36 % (0.7-4.3); Reticulocytes Absolute 0.07 M/mm3 (0.02-0.1)
--- NOTE | 2022-11-17 11:10 | PM.PNNEP ---
Progress Note: A&P Assessment and Plan (1) ESRD (end stage renal disease): Code(s): N18.6 - End stage renal disease Status: Chronic Assessment and Plan: the patient has end-stage renal disease. Probably due to hypertension and diabetes. chest x-ray shows some fluid. She is due for dialysis today. Will remove fluid. (2) Shortness of breath: Code(s): R06.02 - Shortness of breath Status: Acute Assessment and Plan: The patient has had shortness of breath. She seems more comfortable today. There was a question of possible aspiration yesterday as well. So she is on thickened liquids. Will also remove more fluid today. (3) Insulin dependent type 2 diabetes mellitus: Code(s): E11.9 - Type 2 diabetes mellitus without complications; Z79.4 - residential (current) use of insulin Status: Chronic Assessment and Plan: On Accu-Cheks and sliding-scale insulin (4) HTN (hypertension): Qualifiers: Hypertension type: primary hypertension Qualified Code(s): I10 - Essential (primary) hypertension Code(s): I10 - Essential (primary) hypertension Status: Chronic Assessment and Plan: Systolic running 140s to 160s. She is on amlodipine, clonidine, lisinopril, Aldactone. Remove fluid today and see how her blood pressure is tomorrow (5) Erythropoietin deficiency anemia: Code(s): D63.1 - Anemia in chronic kidney disease Status: Chronic Assessment and Plan: on Epogen (6) Renal osteodystrophy: Code(s): N25.0 - Renal osteodystrophy Status: Acute Assessment and Plan: phosphorus is target at 5.1 Subjective Date/time seen: 11/17/22 11:10 Interval history: Patient is feeling better today. Mental status much better today. She is doing word find problems now. She is hungry for lunch. Exam Narrative: WDWN in NAD skin no rash head ncat lungs course with some rhonchi bilaterally. Decreased breath sounds at the bases. This seems improved. cor reg no rub abd BS+ nontender and soft ext no edema. Objective Data Vital Signs Vital Signs: Vital Signs - 24 hr 11/16/22 13:56 11/16/22 15:10 11/16/22 15:18 Temperature 97.2 F L Pulse Rate 73 74 78 Respiratory Rate 17 20 20 Blood Pressure 155/43 H Pulse Oximetry 97 Oxygen Delivery Oxygen Flow Rate 11/16/22 12:00 11/16/22 16:00 11/16/22 19:59 Temperature Pulse Rate 69 74 76 Respiratory Rate 20 Blood Pressure Pulse Oximetry Oxygen Delivery Oxygen Flow Rate 11/16/22 20:14 11/16/22 20:15 11/16/22 20:43 Temperature 97 F L Pulse Rate 78 80 Respiratory Rate 20 16 Blood Pressure 166/48 H Pulse Oximetry 93 100 Oxygen Delivery Nasal Cannula Oxygen Flow Rate 3 11/16/22 20:00 11/17/22 01:40 11/17/22 01:54 Temperature Pulse Rate 77 79 Respiratory Rate 20 20 Blood Pressure Pulse Oximetry 93 Oxygen Delivery Nasal Cannula Oxygen Flow Rate 3 11/16/22 20:00 11/17/22 00:00 11/17/22 04:00 Temperature Pulse Rate 89 86 77 Respiratory Rate Blood Pressure Pulse Oximetry Oxygen Delivery Oxygen Flow Rate 11/17/22 06:00 11/17/22 09:08 11/17/22 09:08 Temperature 98.1 F Pulse Rate 76 72 Respiratory Rate 16 20 Blood Pressure 153/50 H Pulse Oximetry 98 93 Oxygen Delivery Nasal Cannula Oxygen Flow Rate 3 11/17/22 09:47 11/17/22 10:05 Temperature 97.8 F 98.0 F Pulse Rate 75 74 Respiratory Rate 18 18 Blood Pressure 161/50 H 148/42 H Pulse Oximetry 99 99 Oxygen Delivery Oxygen Flow Rate Intake/Output Intake/Output: Intake & Output 11/14/22 11/15/22 11/16/22 11/17/22 23:59 23:59 23:59 23:59 Intake Total 720 587 Balance 720 587 Meds/Results Medications: Active Medications Generic Name Dose Route Start Last Admin Trade Name Freq PRN Reason Stop Dose Admin Albuterol 2.5 mg 11/16/22
[2022-11-17 11:32] LABS: Glucose Point of Care 116 mg/dl (65-105)
--- NOTE | 2022-11-17 11:35 | PM.IMPN ---
Progress Note: A&P Assessment and Plan (1) CHF exacerbation: Code(s): I50.9 - Heart failure, unspecified Status: Acute Assessment and Plan: Complicated by end-stage renal disease. Hemodialysis per Nephrology. Monitor labs and volume status. Respiratory status has improved today Continue cardiac medications. (2) Type 2 diabetes mellitus: Code(s): E11.9 - Type 2 diabetes mellitus without complications Status: Chronic Assessment and Plan: Sliding scale insulin as needed. (3) HTN (hypertension): Qualifiers: Hypertension type: primary hypertension Qualified Code(s): I10 - Essential (primary) hypertension Code(s): I10 - Essential (primary) hypertension Status: Chronic Assessment and Plan: Monitor blood pressure (4) Anemia: Code(s): D64.9 - Anemia, unspecified Status: Chronic Assessment and Plan: History GI bleed. Transfuse as needed. Appreciate GI input. (5) GI bleed: Code(s): K92.2 - Gastrointestinal hemorrhage, unspecified Status: Acute Assessment and Plan: No plan from GI. (6) End stage renal disease: Code(s): N18.6 - End stage renal disease Status: Chronic Assessment and Plan: Hemodialysis (7) Gastroesophageal reflux disease: Code(s): K21.9 - Gastro-esophageal reflux disease without esophagitis Status: Acute Assessment and Plan: PPI (8) Hyperlipidemia: Code(s): E78.5 - Hyperlipidemia, unspecified Status: Acute Subjective Date/time seen: 11/17/22 11:35 Interval history: No complaints Exam Narrative: General: alert and oriented Psych: appropriate mood nad affect Eyes: PERRLA Neck: Trachea midline, no new lesions Skin: no changes Lungs: CTA Cardiac: Normal S1,S2, no MGR ABD: soft, nd, nt, nbs Ext: no new lesions, no cce Vasc: Pulses intact Objective Data Vital Signs Vital Signs: Vital Signs - 24 hr 11/16/22 13:56 11/16/22 15:10 11/16/22 15:18 Temperature 97.2 F L Pulse Rate 73 74 78 Respiratory Rate 17 20 20 Blood Pressure 155/43 H Pulse Oximetry 97 Oxygen Delivery Oxygen Flow Rate 11/16/22 12:00 11/16/22 16:00 11/16/22 19:59 Temperature Pulse Rate 69 74 76 Respiratory Rate 20 Blood Pressure Pulse Oximetry Oxygen Delivery Oxygen Flow Rate 06/15/23 20:14 11/16/22 20:15 11/16/22 20:43 Temperature 97 F L Pulse Rate 78 80 Respiratory Rate 20 16 Blood Pressure 166/48 H Pulse Oximetry 93 100 Oxygen Delivery Nasal Cannula Oxygen Flow Rate 3 11/16/22 20:00 11/17/22 01:40 11/17/22 01:54 Temperature Pulse Rate 77 79 Respiratory Rate 20 20 Blood Pressure Pulse Oximetry 93 Oxygen Delivery Nasal Cannula Oxygen Flow Rate 3 11/16/22 20:00 11/17/22 00:00 11/17/22 04:00 Temperature Pulse Rate 89 86 77 Respiratory Rate Blood Pressure Pulse Oximetry Oxygen Delivery Oxygen Flow Rate 11/17/22 06:00 11/17/22 09:08 11/17/22 09:08 Temperature 98.1 F Pulse Rate 76 72 Respiratory Rate 16 20 Blood Pressure 153/50 H Pulse Oximetry 98 93 Oxygen Delivery Nasal Cannula Oxygen Flow Rate 3 11/17/22 09:47 11/17/22 10:05 Temperature 97.8 F 98.0 F Pulse Rate 75 74 Respiratory Rate 18 18 Blood Pressure 161/50 H 148/42 H Pulse Oximetry 99 99 Oxygen Delivery Oxygen Flow Rate Intake/Output Intake/Output: Intake & Output 11/14/22 11/15/22 11/16/22 11/17/22 23:59 23:59 23:59 23:59 Intake Total 720 587 Balance 720 587 Meds/Results Medications: Active Medications Generic Name Dose Route Start Last Admin Trade Name Freq PRN Reason Stop Dose Admin Albuterol 2.5 mg 11/16/22 20:00 11/17/22 09:11 Albuterol Sulfate Neb 2.5 Mg/0.5 Ml Inh INHALATION 2.5 mg Q6HRT LAUREN Administration Amlodipine Besylate 5 mg 11/16/22 09:00 11/17/22 08:43 Amlodipine Besylate 5 Mg Tablet PO 5 mg TYREL
[2022-11-17 12:15] LABS: Iron < 10 ug/dL (37-170)
[2022-11-17 12:25] LABS: Percent Iron Saturation 4 % (20-50)
[2022-11-17 13:20] LABS: Folic Acid 6.3 ng/mL (2.76->20)
--- NOTE | 2022-11-17 13:30 | PCCCNOTE ---
On 11/17/22, the student, [Roma Lemon], provided care and completed [facility] documentation on this patient. I have reviewed the student's documentation and agree with the findings.
[2022-11-17 14:41] LABS: IFOB Positive Control Positive; Immunochemical Fecal Occult Bl Negative (N)
[2022-11-17 15:56] LABS: Hematocrit 25.2 % (37.0-47.0); Hemoglobin 7.9 g/dL (12.0-15.0)
[2022-11-17 16:41] LABS: Glucose Point of Care 143 mg/dl (65-105)
[2022-11-17] MEDS: EPOETIN ALFA-EPBX 10,000 UNITS/ML VIAL 10000 UNITS IV PUSH (16:53)
[2022-11-17 21:23] LABS: Glucose Point of Care 131 mg/dl (65-105)
[2022-11-18] VITALS (19 sets, daily range): BP systolic 142–158; BP diastolic 37–48; PULSE 67–84; RESP 16–20; TEMP 35.9–36.9; O2SAT 95–100
[2022-11-18] MEDS: ALBUTEROL SULFATE NEB 2.5 MG/3 ML INH INHALATION ×4 (01:57→20:11)
[2022-11-18] MEDS: IPRATROPIUM BR 0.02% INH SOLN 0.5 MG/2.5 ML VIAL INHALATION ×4 (01:57→20:09)
[2022-11-18] MEDS: LEVOTHYROXINE SODIUM 100 MCG TABLET PO (05:48)
[2022-11-18 06:24] LABS: Albumin Level 3.5 g/dL (3.5-5.1); Anion Gap 5 mmol/L (8-16); Blood Urea Nitrogen 25 mg/dL (7-17); Calcium 8.3 mg/dL (8.4-10.2); Carbon Dioxide 38 mmol/L (22-30); Chloride 94 mmol/L (98-107); Estimated CRCL calculation 15 ml/min; Estimated Glomerular Filt Rate 18; Glucose 83 mg/dL (65-110); Phosphorus 3.7 mg/dL (2.5-4.5); Sodium 137 mmol/L (137-145)
[2022-11-18 08:02] LABS: Glucose Point of Care 85 mg/dl (65-105)
[2022-11-18 08:10] LABS: Hematocrit 25.5 % (37.0-47.0); Hemoglobin 7.7 g/dL (12.0-15.0)
[2022-11-18] MEDS: busPIRone HCL 2.5 MG, busPIRone HCL 5 MG 7.5 MG PO ×2 (08:23→20:29)
[2022-11-18] MEDS: methylPREDNISolone SOD SUCC 40 MG VIAL IV PUSH (08:23)
[2022-11-18] MEDS: FERROUS SULFATE 324 MG TABLET PO ×2 (08:23→16:46)
[2022-11-18] MEDS: cloNIDine HCL 0.1 MG TABLET PO ×2 (08:23→20:29)
[2022-11-18] MEDS: amLODIPine BESYLATE 5 MG TABLET PO (08:23)
[2022-11-18] MEDS: DOCUSATE SODIUM 100 MG CAPSULE PO ×2 (08:23→20:29)
[2022-11-18] MEDS: lisinopriL 20 MG TABLET 40 MG PO (08:24)
[2022-11-18] MEDS: PANTOPRAZOLE SODIUM IV 40 MG VIAL IV PUSH (08:24)
[2022-11-18] MEDS: SPIRONOLACTONE 12.5 MG TABLET PO (08:25)
--- NOTE | 2022-11-18 10:11 | PM.PNNEP ---
Progress Note: A&P Assessment and Plan (1) ESRD (end stage renal disease): Code(s): N18.6 - End stage renal disease Status: Chronic Assessment and Plan: the patient has end-stage renal disease. Probably due to hypertension and diabetes. she had HD yesterday some fluid removed; 3500cc (2) Shortness of breath: Code(s): R06.02 - Shortness of breath Status: Acute Assessment and Plan: The patient has had shortness of breath. She seems more comfortable today. There was a question of possible aspiration earlier in the hospital stay. due to encephalopathy? she is better now with mental status. on thickened liquids. (3) Insulin dependent type 2 diabetes mellitus: Code(s): E11.9 - Type 2 diabetes mellitus without complications; Z79.4 - purchasing agent (current) use of insulin Status: Chronic Assessment and Plan: On Accu-Cheks and sliding-scale insulin (4) HTN (hypertension): Qualifiers: Hypertension type: primary hypertension Qualified Code(s): I10 - Essential (primary) hypertension Code(s): I10 - Essential (primary) hypertension Status: Chronic Assessment and Plan: Systolic running 110s to 150s. She is on amlodipine, clonidine, lisinopril, Aldactone. 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 sitting up at the side of the bed taking her meds. cough is gradually better. Exam Narrative: WDWN in NAD skin no rash or sq nodules head ncat lungs course with some rhonchi bilaterally. stable exam cor reg no rub or gallop abd BS+ nontender and soft ext no edema. Objective Data Vital Signs Vital Signs: Vital Signs - 24 hr 11/17/22 12:05 11/17/22 12:54 11/17/22 13:12 Temperature 97.5 F L Pulse Rate 70 80 82 Respiratory Rate 18 18 18 Blood Pressure 158/50 H Pulse Oximetry 95 Oxygen Delivery Oxygen Flow Rate 11/17/22 13:00 11/17/22 14:00 11/17/22 12:00 Temperature 97.8 F 98.4 F Pulse Rate 73 76 79 Respiratory Rate 18 19 Blood Pressure 156/50 H 150/44 H Pulse Oximetry 100 95 Oxygen Delivery Oxygen Flow Rate 11/17/22 14:35 11/17/22 14:35 11/17/22 14:45 Temperature 97.6 F Pulse Rate 72 80 Respiratory Rate 16 Blood Pressure 143/53 H 157/59 H Pulse Oximetry Oxygen Delivery Oxygen Flow Rate 3 11/17/22 15:00 11/17/22 15:20 11/17/22 15:40 Temperature Pulse Rate 84 86 86 Respiratory Rate Blood Pressure 155/59 H 149/62 H 161/57 H Pulse Oximetry Oxygen Delivery Oxygen Flow Rate 11/17/22 16:00 11/17/22 16:20 11/17/22 16:40 Temperature Pulse Rate 89 88 87 Respiratory Rate Blood Pressure 155/55 H 142/57 H 137/54 L Pulse Oximetry Oxygen Delivery Oxygen Flow Rate 11/17/22 17:00 11/17/22 17:20 11/17/22 17:40 Temperature Pulse Rate 88 91 90 Respiratory Rate Blood Pressure 123/57 L 155/58 H 111/50 L Pulse Oximetry Oxygen Delivery Oxygen Flow Rate 11/17/22 18:00 11/17/22 18:17 11/17/22 16:00 Temperature Pulse Rate 80 84 88 Respiratory Rate Blood Pressure 107/52 L 133/56 L Pulse Oximetry Oxygen Delivery Oxygen Flow Rate 11/17/22 18:45 11/17/22 20:20 11/17/22 20:20 Temperature 98.0 F Pulse Rate 82 86 86 Respiratory Rate 15 20 Blood Pressure 115/55 L Pulse Oximetry 95 94 Oxygen Delivery Nasal Cannula Oxygen Flow Rate 4 11/17/22 20:39 11/17/22 20:00 11/17/22 21:52 Temperature 97.9 F Pulse Rate 84 77 Respiratory Rate 20 16 Bloo
--- NOTE | 2022-11-18 10:27 | PM.IMPN ---
Progress Note: A&P Assessment and Plan (1) CHF exacerbation: Code(s): I50.9 - Heart failure, unspecified Status: Acute Assessment and Plan: Complicated by end-stage renal disease. Hemodialysis per Nephrology. Monitor labs and volume status. Respiratory status has improved today Continue cardiac medications. (2) Type 2 diabetes mellitus: Code(s): E11.9 - Type 2 diabetes mellitus without complications Status: Chronic Assessment and Plan: Sliding scale insulin as needed. (3) HTN (hypertension): Qualifiers: Hypertension type: primary hypertension Qualified Code(s): I10 - Essential (primary) hypertension Code(s): I10 - Essential (primary) hypertension Status: Chronic Assessment and Plan: Monitor blood pressure (4) Anemia: Code(s): D64.9 - Anemia, unspecified Status: Chronic Assessment and Plan: History GI bleed. Transfuse as needed. Appreciate GI input. Monitor hemoglobin 1-2 more days. If stable can likely be discharged (5) GI bleed: Code(s): K92.2 - Gastrointestinal hemorrhage, unspecified Status: Acute Assessment and Plan: No plan from GI. (6) End stage renal disease: Code(s): N18.6 - End stage renal disease Status: Chronic Assessment and Plan: Hemodialysis (7) Gastroesophageal reflux disease: Code(s): K21.9 - Gastro-esophageal reflux disease without esophagitis Status: Acute Assessment and Plan: PPI (8) Hyperlipidemia: Code(s): E78.5 - Hyperlipidemia, unspecified Status: Acute Subjective Date/time seen: 11/18/22 10:27 Interval history: Feeling better Exam Narrative: General: alert and oriented Psych: appropriate mood nad affect Eyes: PERRLA Neck: Trachea midline, no new lesions Skin: no changes Lungs: CTA Cardiac: Normal S1,S2, no MGR ABD: soft, nd, nt, nbs Ext: no new lesions, no cce Vasc: Pulses intact Objective Data Vital Signs Vital Signs: Vital Signs - 24 hr 11/17/22 12:05 11/17/22 12:54 11/17/22 13:12 Temperature 97.5 F L Pulse Rate 70 80 82 Respiratory Rate 18 18 18 Blood Pressure 158/50 H Pulse Oximetry 95 Oxygen Delivery Oxygen Flow Rate 11/17/22 13:00 11/17/22 14:00 11/17/22 12:00 Temperature 97.8 F 98.4 F Pulse Rate 73 76 79 Respiratory Rate 18 19 Blood Pressure 156/50 H 150/44 H Pulse Oximetry 100 95 Oxygen Delivery Oxygen Flow Rate 11/17/22 14:35 11/17/22 14:35 11/17/22 14:45 Temperature 97.6 F Pulse Rate 72 80 Respiratory Rate 16 Blood Pressure 143/53 H 157/59 H Pulse Oximetry Oxygen Delivery Oxygen Flow Rate 3 11/17/22 15:00 11/17/22 15:20 11/17/22 15:40 Temperature Pulse Rate 84 86 86 Respiratory Rate Blood Pressure 155/59 H 149/62 H 161/57 H Pulse Oximetry Oxygen Delivery Oxygen Flow Rate 11/17/22 16:00 11/17/22 16:20 11/17/22 16:40 Temperature Pulse Rate 89 88 87 Respiratory Rate Blood Pressure 155/55 H 142/57 H 137/54 L Pulse Oximetry Oxygen Delivery Oxygen Flow Rate 11/17/22 17:00 11/17/22 17:20 11/17/22 17:40 Temperature Pulse Rate 88 91 90 Respiratory Rate Blood Pressure 123/57 L 155/58 H 111/50 L Pulse Oximetry Oxygen Delivery Oxygen Flow Rate 11/17/22 18:00 11/17/22 18:17 11/17/22 16:00 Temperature Pulse Rate 80 84 88 Respiratory Rate Blood Pressure 107/52 L 133/56 L Pulse Oximetry Oxygen Delivery Oxygen Flow Rate 11/17/22 18:45 11/17/22 20:20 11/17/22 20:20 Temperature 98.0 F Pulse Rate 82 86 86 Respiratory Rate 15 20 Blood Pressure 115/55 L Pulse Oximetry 95 94 Oxygen Delivery Nasal Cannula Oxygen Flow Rate 4 11/17/22 20:39 11/17/22 20:00 11/17/22 21:52 Temperature 97.9 F Pulse Rate 84 77 Respiratory Rate 20 16 Blood Pressure 143/38 H Pulse Oximetry 94 92 Oxygen Delivery Nasal Cannula Oxygen Flow Rate
[2022-11-18 12:07] LABS: Glucose Point of Care 129 mg/dl (65-105)
[2022-11-18 16:40] LABS: Glucose Point of Care 152 mg/dl (65-105)
[2022-11-18 20:13] LABS: Glucose Point of Care 138 mg/dl (65-105)
[2022-11-19] VITALS (25 sets, daily range): BP systolic 120–157; BP diastolic 50–86; PULSE 64–76; RESP 15–18; TEMP 36–36.7; O2SAT 94–100
[2022-11-19] MEDS: ALBUTEROL SULFATE NEB 2.5 MG/3 ML INH INHALATION ×4 (01:51→19:38)
[2022-11-19] MEDS: IPRATROPIUM BR 0.02% INH SOLN 0.5 MG/2.5 ML VIAL INHALATION ×4 (01:53→19:38)
[2022-11-19 05:56] LABS: Basophils Percent Auto 0.6 % (0.2-1.2); Eosinophils Absolute Auto 0.2 K/mm3 (0-0.3); Eosinophils Percent Auto 3.2 % (0-4.4); Hematocrit 23.6 % (37.0-47.0); Hemoglobin 7.1 g/dL (12.0-15.0); Immature Granulocyte Absolute 0.09 K/mm3 (0.00-0.031); Immature Granulocyte Percent A 1.2 % (0-0.5); Lymphocytes Absolute Auto 1.12 K/mm3 (0.9-3.2); Lymphocytes Percent Auto 15.5 % (18.3-44.2); Mean Corpuscular HGB Conc 30.1 g/dl (32-36); Mean Corpuscular Hemoglobin 30.1 pg (26-34); Mean Platelet Volume 10.4 fl (7.4-10.4); Monocytes Absolute Auto 0.9 K/mm3 (0.1-0.6); Monocytes Percent Auto 12.6 % (2.6-8.5); Neutrophils Absolute Auto 4.8 K/mm3 (1.3-6.7); Neutrophils Percent Auto 66.9 % (45.5-73.1); Platelet Count Result 216 k/mm3 (150-375); Red Blood Count 2.36 M/mm3 (4.2-5.4); Red Cell Distribution Width 15.4 % (11.5-14.5); White Blood Count 7.2 K/mm3 (4.5-10.0)
[2022-11-19] MEDS: LEVOTHYROXINE SODIUM 100 MCG TABLET PO (05:56)
[2022-11-19 06:11] LABS: Albumin Level 3.2 g/dL (3.5-5.1); Anion Gap 5 mmol/L (8-16); Blood Urea Nitrogen 44 mg/dL (7-17); Calcium 7.7 mg/dL (8.4-10.2); Carbon Dioxide 36 mmol/L (22-30); Chloride 94 mmol/L (98-107); Estimated CRCL calculation 9 ml/min; Estimated Glomerular Filt Rate 10; Glucose 84 mg/dL (65-110); Phosphorus 4.7 mg/dL (2.5-4.5); Potassium 4.3 mmol/L (3.4-5.0); Sodium 135 mmol/L (137-145)
[2022-11-19 07:33] LABS: Glucose Point of Care 99 mg/dl (65-105)
[2022-11-19] MEDS: methylPREDNISolone SOD SUCC 40 MG VIAL IV PUSH (08:29)
[2022-11-19] MEDS: PANTOPRAZOLE SODIUM IV 40 MG VIAL IV PUSH (08:29)
[2022-11-19] MEDS: FERROUS SULFATE 324 MG TABLET PO ×2 (08:30→16:51)
[2022-11-19] MEDS: busPIRone HCL 2.5 MG, busPIRone HCL 5 MG 7.5 MG PO ×2 (08:30→20:35)
[2022-11-19] MEDS: amLODIPine BESYLATE 5 MG TABLET PO (08:30)
[2022-11-19] MEDS: lisinopriL 20 MG TABLET 40 MG PO (08:30)
[2022-11-19] MEDS: DOCUSATE SODIUM 100 MG CAPSULE PO ×2 (08:32→20:35)
[2022-11-19] MEDS: cloNIDine HCL 0.1 MG TABLET PO ×2 (08:32→20:35)
[2022-11-19] MEDS: SPIRONOLACTONE 12.5 MG TABLET PO (08:35)
--- NOTE | 2022-11-19 09:59 | PM.PNNEP ---
Progress Note: A&P Assessment and Plan (1) ESRD (end stage renal disease): Code(s): N18.6 - End stage renal disease Status: Chronic Assessment and Plan: the patient has end-stage renal disease. Probably due to hypertension and diabetes. she had HD Sunday. He is due tomorrow. Potassium is okay fluid status looks pretty good (2) Shortness of breath: Code(s): R06.02 - Shortness of breath Status: Acute Assessment and Plan: The patient has had shortness of breath. She seems more comfortable today. probably due to fluid at 1st and aspiration as well. (3) Insulin dependent type 2 diabetes mellitus: Code(s): E11.9 - Type 2 diabetes mellitus without complications; Z79.4 - buttermaker (current) use of insulin Status: Chronic Assessment and Plan: On Accu-Cheks and sliding-scale insulin (4) HTN (hypertension): Qualifiers: Hypertension type: primary hypertension Qualified Code(s): I10 - Essential (primary) hypertension Code(s): I10 - Essential (primary) hypertension Status: Chronic Assessment and Plan: Systolic running Mostly in the 130-160 range today. She is on amlodipine, clonidine, lisinopril, Aldactone. Will change lisinopril to take in the evening. 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 sitting up at the side of the bed doing word search puzzles. Cough is much better. She denies shortness of breath Exam Narrative: WDWN in NAD skin no rash or sq nodules head ncat lungs mildly coarse at the right base there is a pleural rub. Left lung sounds pretty good. Mildly increased expiratory phase throughout both lungs. cor reg no rub or gallop abd BS+ nontender and soft ext no edema. Objective Data Vital Signs Vital Signs: Vital Signs - 24 hr 11/18/22 12:00 11/18/22 13:39 11/18/22 14:21 Temperature 97.6 F Pulse Rate 76 77 78 Respiratory Rate 16 20 Blood Pressure 142/48 H Pulse Oximetry 100 Oxygen Delivery Oxygen Flow Rate 11/18/22 14:38 11/18/22 16:00 11/18/22 20:11 Temperature Pulse Rate 80 77 Respiratory Rate 20 Blood Pressure Pulse Oximetry 96 Oxygen Delivery Nasal Cannula Oxygen Flow Rate 4 11/18/22 20:12 11/18/22 22:00 11/18/22 20:00 Temperature 98.5 F Pulse Rate 74 78 75 Respiratory Rate 18 16 Blood Pressure 158/40 H Pulse Oximetry 99 Oxygen Delivery Oxygen Flow Rate 11/18/22 20:25 11/19/22 01:53 11/19/22 02:07 Temperature Pulse Rate 76 71 74 Respiratory Rate 18 18 18 Blood Pressure Pulse Oximetry Oxygen Delivery Oxygen Flow Rate 11/19/22 00:00 11/19/22 04:00 11/19/22 06:00 Temperature 98.1 F Pulse Rate 67 72 67 Respiratory Rate 18 Blood Pressure 157/55 H Pulse Oximetry 98 Oxygen Delivery Oxygen Flow Rate 11/19/22 07:50 11/19/22 07:50 11/19/22 08:03 Temperature Pulse Rate 76 64 Respiratory Rate 18 18 Blood Pressure Pulse Oximetry 96 Oxygen Delivery Nasal Cannula Oxygen Flow Rate 4 Intake/Output Intake/Output: Intake & Output 11/16/22 11/17/22 11/18/22 11/19/22 23:59 23:59 23:59 23:59 Intake Total 720 1377 1440 570 Output Total 3500 Balance 720 -0733 1440 570 Meds/Results Medications: Active Medications Generic Name Dose Route Start Last Admin Trade Name Freq PRN Reason Stop Dose Admin Albuterol 2.5 mg 11/18/22 02:00 11/19/22 07:48 Albuterol Sulfate Neb 2.5 Mg/3 Ml Inh INHALATION 2.5
--- NOTE | 2022-11-19 10:38 | PM.IMPN ---
Progress Note: A&P Assessment and Plan (1) CHF exacerbation: Code(s): I50.9 - Heart failure, unspecified Status: Acute Assessment and Plan: Complicated by end-stage renal disease. Hemodialysis per Nephrology. Monitor labs and volume status. Respiratory status has improved today Continue cardiac medications. (2) Type 2 diabetes mellitus: Code(s): E11.9 - Type 2 diabetes mellitus without complications Status: Chronic Assessment and Plan: Sliding scale insulin as needed. (3) HTN (hypertension): Qualifiers: Hypertension type: primary hypertension Qualified Code(s): I10 - Essential (primary) hypertension Code(s): I10 - Essential (primary) hypertension Status: Chronic Assessment and Plan: Monitor blood pressure (4) Anemia: Code(s): D64.9 - Anemia, unspecified Status: Chronic Assessment and Plan: History GI bleed. Transfuse as needed. Appreciate GI input. Monitor hemoglobin 1-2 more days. If stable can likely be discharged (5) GI bleed: Code(s): K92.2 - Gastrointestinal hemorrhage, unspecified Status: Acute Assessment and Plan: No plan from GI. (6) End stage renal disease: Code(s): N18.6 - End stage renal disease Status: Chronic Assessment and Plan: Hemodialysis (7) Gastroesophageal reflux disease: Code(s): K21.9 - Gastro-esophageal reflux disease without esophagitis Status: Acute Assessment and Plan: PPI (8) Hyperlipidemia: Code(s): E78.5 - Hyperlipidemia, unspecified Status: Acute Subjective Date/time seen: 11/19/22 10:38 Interval history: No complaints Exam Narrative: General: alert and oriented Psych: appropriate mood nad affect Eyes: PERRLA Neck: Trachea midline, no new lesions Skin: no changes Lungs: CTA Cardiac: Normal S1,S2, no MGR ABD: soft, nd, nt, nbs Ext: no new lesions, no cce Vasc: Pulses intact Objective Data Vital Signs Vital Signs: Vital Signs - 24 hr 11/18/22 12:00 11/18/22 13:39 11/18/22 14:21 Temperature 97.6 F Pulse Rate 76 77 78 Respiratory Rate 16 20 Blood Pressure 142/48 H Pulse Oximetry 100 Oxygen Delivery Oxygen Flow Rate 11/18/22 14:38 11/18/22 16:00 11/18/22 20:11 Temperature Pulse Rate 80 77 Respiratory Rate 20 Blood Pressure Pulse Oximetry 96 Oxygen Delivery Nasal Cannula Oxygen Flow Rate 4 11/18/22 20:12 11/18/22 22:00 11/18/22 20:00 Temperature 98.5 F Pulse Rate 74 78 75 Respiratory Rate 18 16 Blood Pressure 158/40 H Pulse Oximetry 99 Oxygen Delivery Oxygen Flow Rate 11/18/22 20:25 11/19/22 01:53 11/19/22 02:07 Temperature Pulse Rate 76 71 74 Respiratory Rate 18 18 18 Blood Pressure Pulse Oximetry Oxygen Delivery Oxygen Flow Rate 11/19/22 00:00 11/19/22 04:00 11/19/22 06:00 Temperature 98.1 F Pulse Rate 67 72 67 Respiratory Rate 18 Blood Pressure 157/55 H Pulse Oximetry 98 Oxygen Delivery Oxygen Flow Rate 11/19/22 07:50 11/19/22 07:50 11/19/22 08:03 Temperature Pulse Rate 76 64 Respiratory Rate 18 18 Blood Pressure Pulse Oximetry 96 Oxygen Delivery Nasal Cannula Oxygen Flow Rate 4 Intake/Output Intake/Output: Intake & Output 11/16/22 11/17/22 11/18/22 11/19/22 23:59 23:59 23:59 23:59 Intake Total 720 1377 1440 570 Output Total 3500 Balance 720 -7403 1440 570 Meds/Results Medications: Active Medications Generic Name Dose Route Start Last Admin Trade Name Freq PRN Reason Stop Dose Admin Albuterol 2.5 mg 11/18/22 02:00 11/19/22 07:48 Albuterol Sulfate Neb 2.5 Mg/3 Ml Inh INHALATION 2.5 mg Q6HRT LAUREN Administration Amlodipine Besylate 5 mg 11/16/22 09:00 11/19/22 08:30 Amlodipine Besylate 5 Mg Tablet PO 5 mg DAILY LAUREN Administration Buspirone HCl 2.5 mg/ 7.5 mg 11/15/22 21:00 11/19/22 08:30 Buspirone HCl 5 m
[2022-11-19 12:06] LABS: Glucose Point of Care 155 mg/dl (65-105)
[2022-11-19] MEDS: SODIUM CHLORIDE 0.9% IV 250 ML 30 ML IV CONT (14:03)
[2022-11-19] MEDS: TUBING, BLOOD PLUM PUMP TUBING 1 EACH XX (14:03)
[2022-11-19 18:11] LABS: Glucose Point of Care 192 mg/dl (65-105)
[2022-11-19 20:15] LABS: Glucose Point of Care 158 mg/dl (65-105)
[2022-11-20] VITALS (27 sets, daily range): BP systolic 143–176; BP diastolic 50–69; PULSE 65–83; RESP 16–18; TEMP 36–37.3; O2SAT 94–97
[2022-11-20] MEDS: IPRATROPIUM BR 0.02% INH SOLN 0.5 MG/2.5 ML VIAL INHALATION ×3 (01:22→15:40)
[2022-11-20] MEDS: ALBUTEROL SULFATE NEB 2.5 MG/3 ML INH INHALATION ×3 (01:22→15:40)
[2022-11-20] MEDS: LEVOTHYROXINE SODIUM 100 MCG TABLET PO (06:11)
[2022-11-20 07:37] LABS: Albumin Level 3.5 g/dL (3.5-5.1); Anion Gap 8 mmol/L (8-16); Blood Urea Nitrogen 59 mg/dL (7-17); Calcium 7.5 mg/dL (8.4-10.2); Carbon Dioxide 33 mmol/L (22-30); Chloride 92 mmol/L (98-107); Estimated CRCL calculation 8 ml/min; Estimated Glomerular Filt Rate 7; Glucose 87 mg/dL (65-110); Phosphorus 5.7 mg/dL (2.5-4.5); Potassium 4.7 mmol/L (3.4-5.0); Sodium 133 mmol/L (137-145)
[2022-11-20 07:42] LABS: Glucose Point of Care 81 mg/dl (65-105)
[2022-11-20 07:52] LABS: Hematocrit 28.1 % (37.0-47.0); Hemoglobin 8.7 g/dL (12.0-15.0)
[2022-11-20] MEDS: busPIRone HCL 2.5 MG, busPIRone HCL 5 MG 7.5 MG PO (08:18)
[2022-11-20] MEDS: DOCUSATE SODIUM 100 MG CAPSULE PO (08:18)
[2022-11-20] MEDS: PANTOPRAZOLE SODIUM IV 40 MG VIAL IV PUSH (08:19)
[2022-11-20] MEDS: FERROUS SULFATE 324 MG TABLET PO (08:19)
[2022-11-20] MEDS: methylPREDNISolone SOD SUCC 40 MG VIAL IV PUSH (08:19)
--- NOTE | 2022-11-20 10:23 | P.CDI_ITS ---
acute on chronic combines (systolic/diastolic) CDI Query Clarification Request Elevated BNP on 11/14/22 & 11/15/22 lab work. CHF noted on the assessment and raymundo. Pulmonary edema noted on the 11/16/22 chest xray. Please specify type and acuity of heart failure if known. * Acute * Chronic * Acute on Chronic * Unknown * Systolic * Diastolic * Combined Systolic and Diastolic * Unknown
--- NOTE | 2022-11-20 10:23 | WPDCDIQUERY2 ---
CDI Query Clarification Request Elevated BNP on 11/14/22 & 11/15/22 lab work. CHF noted on the assessment and raymundo. Pulmonary edema noted on the 11/16/22 chest xray. Please specify type and acuity of heart failure if known. Acute Chronic Acute on Chronic Unknown Systolic Diastolic Combined Systolic and Diastolic Unknown
--- NOTE | 2022-11-20 11:11 | PM.DS ---
DS: Admitting Diagnosis Discharge Date November 20, 2022 Admitting Diagnosis Volume overload, end-stage renal disease DS: Discharge Diagnosis Discharge Diagnosis (1) CHF exacerbation: Code(s): I50.9 - Heart failure, unspecified Status: Acute Assessment and Plan: Complicated by end-stage renal disease. Hemodialysis per Nephrology. Monitor labs and volume status. Respiratory status has improved today Continue cardiac medications. (2) Type 2 diabetes mellitus: Code(s): E11.9 - Type 2 diabetes mellitus without complications Status: Chronic Assessment and Plan: Sliding scale insulin as needed. (3) HTN (hypertension): Qualifiers: Hypertension type: primary hypertension Qualified Code(s): I10 - Essential (primary) hypertension Code(s): I10 - Essential (primary) hypertension Status: Chronic Assessment and Plan: Monitor blood pressure (4) Anemia: Code(s): D64.9 - Anemia, unspecified Status: Chronic Assessment and Plan: History GI bleed. Transfuse as needed. Appreciate GI input. Monitor hemoglobin 1-2 more days. If stable can likely be discharged (5) GI bleed: Code(s): K92.2 - Gastrointestinal hemorrhage, unspecified Status: Acute Assessment and Plan: No plan from GI. (6) End stage renal disease: Code(s): N18.6 - End stage renal disease Status: Chronic Assessment and Plan: Hemodialysis (7) Gastroesophageal reflux disease: Code(s): K21.9 - Gastro-esophageal reflux disease without esophagitis Status: Acute Assessment and Plan: PPI (8) Hyperlipidemia: Code(s): E78.5 - Hyperlipidemia, unspecified Status: Acute DS: Summary Hospital Course Hospital Course: Patient is an 87-year-old female who came in with multiple medical problems and volume overload and CHF exacerbation. This was likely related to end-stage renal disease. Nephrology was consulted patient received several dialysis treatments and subsequently improved medically. She is otherwise stable vitals are stable and she is doing her normal activities she can be discharged. Time Spent with Patient Time attestation: Total time spent providing and/or coordinating discharge services: Exam Narrative: General: alert and oriented Psych: appropriate mood nad affect Eyes: PERRLA Neck: Trachea midline, no new lesions Skin: no changes Lungs: CTA Cardiac: Normal S1,S2, no MGR ABD: soft, nd, nt, nbs Ext: no new lesions, no cce Vasc: Pulses intact DS: Data Data Completed and Pending Labs on day of discharge: Labs from last 24 hours 11/20/22 11/20/22 11/19/22 07:33 06:32 20:13 Hgb 8.7 L Hct 28.1 L Sodium 133 L Potassium 4.7 Chloride 92 L Carbon Dioxide 33 H Anion Gap 8 BUN 59 H D Creatinine 5.60 H Estim Creat Clear Calc 8 Estimated GFR 7 L Glucose 87 POC Capillary Glucose 81 158 H Calcium 7.5 L Phosphorus 5.7 H Albumin 3.5 Blood Type Antibody Screen Crossmatch 11/19/22 11/19/22 11/19/22 16:38 11:34 08:24 Hgb Hct Sodium Potassium Chloride Carbon Dioxide Anion Gap BUN Creatinine Estim Creat Clear Calc Estimated GFR Glucose POC Capillary Glucose 192 H 155 H Calcium Phosphorus Albumin Blood Type A Positive Antibody Screen Negative Crossmatch See Detail 11/15/22 12:30 Hgb Hct Sodium Potassium Chloride Carbon Dioxide Anion Gap BUN Creatinine Estim Creat Clear Calc Estimated GFR Glucose POC Capillary Glucose Calcium Phosphorus Albumin Blood Type Antibody Screen Crossmatch See Detail Preliminary micro results at discharge 11/14/22 22:42 Blood Culture - Preliminary Blood Staphylococcus capitis Discharge Plan Discharge Attending physician on discharge: Jose Cruz Hodgson Consulting providers: [facility]
[2022-11-20] MEDS: EPOETIN ALFA-EPBX 10,000 UNITS/ML VIAL 10000 UNITS IV PUSH ×2 (11:19→11:21)
[2022-11-20 11:36] LABS: Glucose Point of Care 107 mg/dl (65-105)
--- NOTE | 2022-11-20 12:04 | PM.PNNEP ---
Progress Note: A&P Assessment and Plan (1) ESRD (end stage renal disease): Code(s): N18.6 - End stage renal disease Status: Chronic Assessment and Plan: the patient has end-stage renal disease. Probably due to hypertension and diabetes. she had HD Sunday. she will be getting dialysis today Potassium is okay fluid status looks pretty good (2) Shortness of breath: Code(s): R06.02 - Shortness of breath Status: Acute Assessment and Plan: The patient has had shortness of breath. She seems more comfortable today. probably due to fluid at 1st and aspiration as well. (3) Insulin dependent type 2 diabetes mellitus: Code(s): E11.9 - Type 2 diabetes mellitus without complications; Z79.4 - termination clerk (current) use of insulin Status: Chronic Assessment and Plan: On Accu-Cheks and sliding-scale insulin (4) HTN (hypertension): Qualifiers: Hypertension type: primary hypertension Qualified Code(s): I10 - Essential (primary) hypertension Code(s): I10 - Essential (primary) hypertension Status: Chronic Assessment and Plan: Systolic still running mostly in the 130-160 range today. She is on amlodipine, clonidine, lisinopril, Aldactone. further adjustments at HD center (5) Erythropoietin deficiency anemia: Code(s): D63.1 - Anemia in chronic kidney disease Status: Chronic Assessment and Plan: on Epogen with dialysis (6) Renal osteodystrophy: Code(s): N25.0 - Renal osteodystrophy Status: Acute Assessment and Plan: phosphorus is mildly higher but still target at 4.7 Subjective Date/time seen: 11/20/22 12:04 Interval history: Patient is feeling better today. Eating some breakfast. No chest pain or shortness of breath Exam Narrative: WDWN in N head ncat lungs mildly coarse at the right base there is a pleural rub. Left lung sounds pretty good. Mildly increased expiratory phase throughout both lungs. cor reg no rub or gallop abd BS+ nontender ext no edema. Objective Data Vital Signs Vital Signs: Vital Signs - 24 hr 11/19/22 13:24 11/19/22 13:39 11/19/22 14:01 Temperature 97.9 F Pulse Rate 69 70 67 Respiratory Rate 18 18 16 Blood Pressure 120/86 Pulse Oximetry 100 Oxygen Delivery Oxygen Flow Rate 11/19/22 14:00 11/19/22 16:00 11/19/22 14:17 Temperature 97.9 F 97.8 F Pulse Rate 67 67 70 Respiratory Rate 16 15 Blood Pressure 120/86 124/76 Pulse Oximetry 100 100 Oxygen Delivery Oxygen Flow Rate 11/19/22 15:17 11/19/22 16:17 11/19/22 17:17 Temperature 96.8 F L 97.3 F L 97.1 F L Pulse Rate 71 75 73 Respiratory Rate 16 17 15 Blood Pressure 126/50 L 144/55 H 130/66 Pulse Oximetry 98 98 100 Oxygen Delivery Oxygen Flow Rate 11/19/22 19:07 11/19/22 19:38 11/19/22 19:39 Temperature 97.1 F L Pulse Rate 73 71 Respiratory Rate 15 18 Blood Pressure 130/66 Pulse Oximetry 100 96 Oxygen Delivery Nasal Cannula Oxygen Flow Rate 4 11/19/22 19:48 11/19/22 20:00 11/19/22 22:00 Temperature 97.2 F L Pulse Rate 74 74 70 Respiratory Rate 18 18 18 Blood Pressure 149/50 H Pulse Oximetry 96 98 Oxygen Delivery Nasal Cannula Oxygen Flow Rate 4 11/20/22 00:00 11/20/22 01:22 11/20/22 01:29 Temperature Pulse Rate 71 68 70 Respiratory Rate 18 18 Blood Pressure Pulse Oximetry Oxygen Delivery Oxygen Flow Rate 11/20/22 04:00 11/20/22 06:00 11/20/22 07:57 Temperature 97.0 F L Pulse Rate 72 72 75 Respiratory Rate 16 16 Blood Pressure 170/53 H Pulse Oximetry 97 Oxygen Delivery Oxygen Flow Rate 11/20/22 08:00 11/20/22 08:09 11/20/22 08:00 Temperature Pulse Rate 68 74 Respiratory Rate 16 Blood Pressure Pulse Oximetry 94 Oxygen Delivery Nasal Cannula Oxygen Flow Rate 4 11/20/22 09:20 11/20/22 09:36 11/20/22 09:36 [facility]
[2022-11-20 12:26] LABS: EDCOVIDSCREEN Negative (Negative)
--- NOTE | 2022-11-20 14:00 | PCRCNOTE ---
HOME O2 EVAL NOT REQUIRED, PT GOING TO [facility].
--- NOTE | 2022-11-30 16:09 | PM.IMHP ---
H&P: HPI History of Present Illness Date/Time: 11/15/22 16:09 Chief Complaint: The patient is a very pleasant 87-year-old lady, who has multiple medical problems including end-stage renal disease on dialysis 3 times a week, senile dementia of the Alzheimer's type, anemia of chronic kidney disease, renal osteodystrophy. ?The patient lives in a nursing facility. ?She was found to be more short of breath yesterday and she had a cough. ?The patient was sent over to the ER. ?She was evaluated in the ER and found to be anemic and short of breath. ?The patient received supportive care. ?She was tested for Covid and the flu and these were negative. ?The patient was admitted to the floor. The patient is coughing. ?She has some shortness of breath with her coughing, but does not seem to have shortness of breath between times. ?She has no chest pain, no belly pain. ?No nausea, vomiting, diarrhea, or constipation. ?No ENT or neurologic issues other than her chronic dementia. ?No endocrine or psychiatric issues. ?No skin rash, joint pains, or swelling. ?She does not make much urine, but no urologic issues besides that. [facility] Past Medical History Medical History Chronic anemia Chronic obstructive pulmonary disease Chronic respiratory failure with hypoxia On 2 to 3 liters nasal cannula. COVID-19 (06/2021) Diastolic dysfunction End-stage renal disease on hemodialysis Erythropoietin deficiency anemia Gastroesophageal reflux disease Glaucoma Hyperlipidemia Hypertension Hypothyroidism Osteoarthritis Pulmonary hypertension Renal osteodystrophy Type 2 diabetes mellitus Vitamin D deficiency Surgical History Surgical History Status post creation of arteriovenous fistula Left upper extremity. Family History Family History Other Diabetes mellitus Hypertension Social History Social History Social History: Surrogate decision maker: Amy Contreras, roman. Code status: Do not resuscitate. 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 Spiritual care concerns: No Meds Home Medications and Allergies Home Medications Medication Instructions Recorded Confirmed Type atorvastatin 20 mg tablet 20 mg PO HS 06/22/21 10/26/22 History ergocalciferol (vitamin D2) 1,250 50,000 unit PO WEEKLY 06/22/21 10/26/22 History mcg (50,000 unit) capsule latanoprost 0.005 % eye drops 1 drp EACH EYE HS 06/22/21 10/26/22 History spironolactone 25 mg tablet 12.5 mg PO DAILY 06/22/21 10/26/22 History amlodipine 5 mg tablet (Norvasc) 10 mg PO QAM 30 days #60 tabs 03/24/22 10/26/22 Rx ferrous sulfate 325 mg (65 mg 324 mg PO BIDWM #60 tabs 04/11/22 10/26/22 Rx iron) tablet levothyroxine 100 mcg tablet 100 mcg PO DAILY@0630 #30 tabs 04/11/22 10/26/22 Rx (Synthroid) lisinopril 20 mg tablet 20 mg PO QAM #30 tabs 04/11/22 10/26/22 Rx docusate sodium 100 mg capsule 100 mg PO Q12HR #60 caps 05/11/22 10/26/22 Rx polyethylene glycol 3350 17 gram 17 g PO DAILY PRN constipation #14 05/11/22 10/26/22 Rx oral powder packet (Miralax) ea albuterol sulfate 2.5 mg/3 mL 2.5 mg (3 mL) inhalation Q6HRT PRN 06/16/22 10/26/22 Rx (
--- NOTE | 2022-12-08 00:53 | ED.GENADULT ---
HPI - General Adult General Chief complaint: Shortness of Breath/Dyspnea Stated complaint: sob Time Seen by Provider: 11/14/22 21:46 History of Present Illness HPI narrative: Patient 87-year-old female that presents the emergency department with chief complaint of shortness of breath. Patient is a resident of a local nursing facility and has history of end-stage renal disease on dialysis and came into the emergency department with shortness of breath. Related Data Home Medications Medication Instructions Recorded Confirmed atorvastatin 20 mg tablet 20 mg PO HS 06/22/21 10/26/22 ergocalciferol (vitamin D2) 1,250 50,000 unit PO WEEKLY 06/22/21 10/26/22 mcg (50,000 unit) capsule latanoprost 0.005 % eye drops 1 drp EACH EYE HS 06/22/21 10/26/22 spironolactone 25 mg tablet 12.5 mg PO DAILY 06/22/21 10/26/22 acetaminophen 650 mg tablet 650 mg PO Q6H PRN Pain (Scale 07/21/22 10/26/22 Score 1-3) buspirone 7.5 mg tablet 7.5 mg PO BID 07/21/22 10/26/22 omeprazole 20 mg capsule,delayed 20 mg PO DAILY 07/21/22 10/26/22 release Allergies Allergy/AdvReac Type Severity Reaction Status Date / Time adhesive tape Allergy Unknown PLASTIC Verified 12/01/22 17:34 TAPE hydrochlorothiazide Allergy Unknown Verified 12/01/22 17:34 latex Allergy Rash Verified 12/01/22 17:34 Review of Systems Review of Systems: A 10 system review of systems was completed on the patient and is negative except for what is stated in the HPI. Nursing and ancillary documentation was reviewed. [facility] Past Medical History Medical History Chronic anemia Chronic obstructive pulmonary disease Chronic respiratory failure with hypoxia On 2 to 3 liters nasal cannula. COVID-19 (06/2021) Diastolic dysfunction End-stage renal disease on hemodialysis Erythropoietin deficiency anemia Gastroesophageal reflux disease Glaucoma Hyperlipidemia Hypertension Hypothyroidism Osteoarthritis Pulmonary hypertension Renal osteodystrophy Type 2 diabetes mellitus Vitamin D deficiency Surgical History Surgical History Status post creation of arteriovenous fistula Left upper extremity. Family History Family History Other Diabetes mellitus Hypertension Social History Social History Social History: Surrogate decision maker: Amy Contreras, roman. Code status: Do not resuscitate. 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 Spiritual care concerns: No Exam Narrative: GENERAL: Well-appearing, well-nourished, and in no acute distress. HEAD: Normocephalic, atraumatic. EYES: PERRLA and EOMI. ENT: Nares clear, no rhinorrhea or epistaxis. Mucous membranes moist. NECK: Supple. CHEST: Clear to auscultation. No respiratory distress. HEART: Regular rate and rhythm. No murmur heard. Normal peripheral pulses. ABDOMEN: Soft, nontender, nondistended, normal active bowel sounds. EXTREMITIES: Normal range of motion. No edema. SKIN: Warm, dry, no rash. NEURO: No focal deficits. Alert and oriented x3. PSYCH: Normal mood and affect. Course Vital Signs Vital signs: Vital Signs
== END 2022-11-20 16:00 | DRG 291 ==
LOC: ANHED 11-15 17:09 → ANH3MEDSUR 11-15 23:49
PROVIDERS: Internal Medicine Gastroenterology; Internal Medicine Nephrology; Admitting Provider Internal Medicine; Emergency Provider Emergency Medicine; PCP Internal Medicine; Visit Provider Chiropractor
DX: I13.2 Hypertensive heart and chronic kidney disease with heart failure and with stage 5 chronic kidney disease, or end stage renal disease (principal); I50.43 Acute on chronic combined systolic (congestive) and diastolic (congestive) heart failure; N18.6 End stage renal disease; E11.22 Type 2 diabetes mellitus with diabetic chronic kidney disease; K21.9 Gastro-esophageal reflux disease without esophagitis; E78.5 Hyperlipidemia, unspecified; Z20.822 Contact with and (suspected) exposure to COVID-19; D63.1 Anemia in chronic kidney disease; D50.0 Iron deficiency anemia secondary to blood loss (chronic); G30.1 Alzheimer's disease with late onset; F02.80 Dementia in other diseases classified elsewhere, unspecified severity, without behavioral disturbance, psychotic disturbance, mood disturbance, and anxiety; K57.90 Diverticulosis of intestine, part unspecified, without perforation or abscess without bleeding; N25.0 Renal osteodystrophy; Z79.4 Long term (current) use of insulin
CPT/HCPCS: 36415; 36430; 71046; 80048; 80053; 80069; 82274; 82607; 82728; 82746; 82948; 83540; 83550; 83605; 83690; 83735; 83880; 84145; 84484; 85014; 85018; 85025; 85027; 85046; 85610; 85730; 86850; 86900; 86901; 86923; 87040; 87147; 87181; 87186; 87426; 87636; 92611; 93005; 94640; 96374; 96375; 99285; A9270; C9113; C9803; G0257; G0378; J0360; J1644; J2920; J3370; J3480; J7030; J7040; J7050; P9016; Q5105

== ENCOUNTER 2022-11-22 14:44 | Emergency (ER) | payer MEDICARE, MEDICAID, SELFPAY ==
--- NOTE | ~2022-11-22 | XR_ITS ---
XR chest 2V 11/22/2022 15:14 Indication: Shortness of breath. Procedure: AP and lateral views of the chest Comparison: 11/15/2022 and 11/14/2022 Findings: Cardiomegaly. Mild interstitial edema. Small pleural effusions. No pneumothorax. Impression: 1: Cardiomegaly with mild interstitial edema. 2: Small pleural effusions. Reviewed, dictated and finalized at location [] Impression: 1: Cardiomegaly with mild interstitial edema. 2: Small pleural effusions.
[2022-11-22 14:43] VITALS: BP 132/47; PULSE 67; RESP 22; O2SAT 87
[2022-11-22 14:50] VITALS: O2SAT 94
--- NOTE | 2022-11-22 14:50 | ECG_ITS ---
Measurements Intervals [place] Rate: 66 P: -47 [place]: 157 QRS: 4 QRSD: 112 T: 48 QT: 424 QTc: 447 Interpretive Statements SINUS RHYTHM LEFT VENTRICULAR HYPERTROPHY AND ST-T CHANGE [VOLTAGE CRITERIA PLUS ST/T ABNORMALITY] COMPARED TO ECG 11/14/2022 21:34:16 NO SIGNIFICANT CHANGES Electronically Signed On 11-22-2022 19:58:25 CDT by Nirali Mcpherson M.D.
[2022-11-22 14:51] VITALS: O2SAT 94
[2022-11-22 15:15] LABS: Basophils Absolute Auto 0.1 K/mm3 (0.0-0.1); Basophils Percent Auto 0.6 % (0.2-1.2); Eosinophils Absolute Auto 0.7 K/mm3 (0-0.3); Eosinophils Percent Auto 9.4 % (0-4.4); Hematocrit 31.4 % (37.0-47.0); Hemoglobin 9.2 g/dL (12.0-15.0); Immature Granulocyte Absolute 0.15 K/mm3 (0.00-0.031); Immature Granulocyte Percent A 1.9 % (0-0.5); Lymphocytes Absolute Auto 0.59 K/mm3 (0.9-3.2); Lymphocytes Percent Auto 7.6 % (18.3-44.2); Mean Corpuscular HGB Conc 29.3 g/dl (32-36); Mean Corpuscular Hemoglobin 30.2 pg (26-34); Mean Platelet Volume 10.7 fl (7.4-10.4); Monocytes Percent Auto 12.4 % (2.6-8.5); Neutrophils Absolute Auto 5.3 K/mm3 (1.3-6.7); Neutrophils Percent Auto 68.1 % (45.5-73.1); Platelet Count Result 282 k/mm3 (150-375); Red Blood Count 3.05 M/mm3 (4.2-5.4); Red Cell Distribution Width 16.7 % (11.5-14.5); White Blood Count 7.8 K/mm3 (4.5-10.0)
[2022-11-22 15:37] LABS: Alanine Aminotransferase 9 U/L (6-35); Albumin Level 3.6 g/dL (3.5-5.1); Alkaline Phosphatase 62 U/L (38-126); Aspartate Amino Transferase 18 U/L (14-36); Bilirubin,Total 0.3 mg/dL (0.2-1.3); Blood Urea Nitrogen 30 mg/dL (7-17); Calcium 7.4 mg/dL (8.4-10.2); Carbon Dioxide > 40 mmol/L (22-30); Chloride 98 mmol/L (98-107); Estimated Glomerular Filt Rate 15; Glucose 92 mg/dL (65-110); Lipase 141 U/L (23-300); Potassium 4.3 mmol/L (3.4-5.0); Sodium 139 mmol/L (137-145)
[2022-11-22 15:48] LABS: NT Pro B Type Natriuretic Pept > 30000 pg/mL (19.9-100); Troponin I 0.053 ng/mL (0.000-0.034)
[2022-11-22 15:52] LABS: INR 0.9; Prothrombin Time 12.7 Seconds (11.1-14.7)
[2022-11-22 15:53] LABS: Partial Thromboplastin Time 30.9 SECONDS (22.3-36.8)
[2022-11-22 16:00] LABS: Platelet Estimate Adequate (Adequate)
[2022-11-22 16:02] LABS: Anisocytosis 3+ (NORMAL); Hypochromasia 1+ (NORMAL); Schistocytes Rare (NORMAL)
--- NOTE | 2022-11-22 16:05 | ED.SOB ---
HPI - SOB/Dyspnea General Chief Complaint: Shortness of Breath/Dyspnea Stated Complaint: SOB History of Present Illness HPI Narrative: Patient is an 87-year-old female with a history of ESRD on dialysis Sunday presenting with shortness of breath. Patient was at dialysis when she became short of breath. Patient is supposed to be on 2 to 4 L of O2 at baseline and was reportedly not on oxygen. She states that she does not know why dialysis staff does not place her on oxygen. EMS was called and placed her on 3 L with subsequent saturations in the upper 90s. Currently, the patient denies any complaints. No pain. She is A&O x2 which is her baseline. Related Data Home Medications Medication Instructions Recorded Confirmed atorvastatin 20 mg tablet 20 mg PO HS 06/22/21 10/26/22 ergocalciferol (vitamin D2) 1,250 50,000 unit PO WEEKLY 06/22/21 10/26/22 mcg (50,000 unit) capsule latanoprost 0.005 % eye drops 1 drp EACH EYE HS 06/22/21 10/26/22 spironolactone 25 mg tablet 12.5 mg PO DAILY 06/22/21 10/26/22 acetaminophen 650 mg tablet 650 mg PO Q6H PRN Pain (Scale 07/21/22 10/26/22 Score 1-3) buspirone 7.5 mg tablet 7.5 mg PO BID 07/21/22 10/26/22 omeprazole 20 mg capsule,delayed 20 mg PO DAILY 07/21/22 10/26/22 release Allergies Allergy/AdvReac Type Severity Reaction Status Date / Time adhesive tape Allergy Unknown PLASTIC Verified 10/26/22 14:48 TAPE hydrochlorothiazide Allergy Unknown Verified 10/26/22 14:48 latex Allergy Rash Verified 10/26/22 14:48 Review of Systems Review of Systems: All systems reviewed & are unremarkable except as noted in HPI and below PMFSH Past Medical History Medical History Chronic anemia Chronic obstructive pulmonary disease Chronic respiratory failure with hypoxia On 2 to 3 liters nasal cannula. COVID-19 (06/2021) Diastolic dysfunction End-stage renal disease on hemodialysis Erythropoietin deficiency anemia Gastroesophageal reflux disease Glaucoma Hyperlipidemia Hypertension Hypothyroidism Osteoarthritis Pulmonary hypertension Renal osteodystrophy Type 2 diabetes mellitus Vitamin D deficiency Surgical History Surgical History Status post creation of arteriovenous fistula Left upper extremity. Family History Family History Other Diabetes mellitus Hypertension Social History Social History Social History: Surrogate decision maker: Amy Contreras, son. Code status: Do not resuscitate. 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 Spiritual care concerns: No Exam Narrative: GENERAL: Chronically ill-appearing female sitting in bed in no acute distress HEAD: Normocephalic, atraumatic. EYES: PERRLA and EOMI. ENT: Nares clear, no rhinorrhea or epistaxis. Mucous membranes moist. NECK: Supple. CHEST: Diminished bilaterally, no respiratory distress. Saturating 94 to 97% on her baseline 3 L nasal cannula HEART: Regular rate and rhythm. No murmur heard. Normal peripheral pulses. ABDOMEN: Soft, nontender, nondistended EXTREMITIES: Normal range of motion. No edema. AV fistula left upper arm wi
[2022-11-22 16:09] LABS: Influenza A QL RT-PCR Negative (Negative); Influenza B QL RT-PCR Negative (Negative); SARS-CoV-2 RNA PCR Negative (Negative)
[2022-11-22 16:24] VITALS: BP 142/49; PULSE 69; RESP 22; O2SAT 99
[2022-11-22 17:30] VITALS: BP 163/49; PULSE 71; RESP 20; O2SAT 100
[2022-11-22 18:36] VITALS: BP 154/59; PULSE 72; RESP 20; O2SAT 99
[2022-11-22 19:08] LABS: Troponin I 0.047 ng/mL (0.000-0.034)
== END 2022-11-22 21:01 ==
PROVIDERS: Emergency Provider Emergency Medicine; PCP Internal Medicine
DX: J96.11 Chronic respiratory failure with hypoxia (principal); N18.6 End stage renal disease; I13.2 Hypertensive heart and chronic kidney disease with heart failure and with stage 5 chronic kidney disease, or end stage renal disease; I50.9 Heart failure, unspecified; Z99.2 Dependence on renal dialysis; Z20.822 Contact with and (suspected) exposure to COVID-19; E11.22 Type 2 diabetes mellitus with diabetic chronic kidney disease; D63.1 Anemia in chronic kidney disease; N25.0 Renal osteodystrophy; J44.9 Chronic obstructive pulmonary disease, unspecified; E11.39 Type 2 diabetes mellitus with other diabetic ophthalmic complication; H42 Glaucoma in diseases classified elsewhere; E78.5 Hyperlipidemia, unspecified; E03.9 Hypothyroidism, unspecified; E55.9 Vitamin D deficiency, unspecified; M19.90 Unspecified osteoarthritis, unspecified site; Z66 Do not resuscitate; I51.7 Cardiomegaly; J81.1 Chronic pulmonary edema
CPT/HCPCS: 36415; 71046; 80053; 83690; 83735; 83880; 84484; 85025; 85610; 85730; 87636; 93005; 99284

== ENCOUNTER 2022-12-01 17:19 | Emergency (ER) | payer MEDICARE, MEDICAID, SELFPAY ==
[2022-12-01] VITALS (32 sets, daily range): BP systolic 152–166; BP diastolic 40–63; PULSE 61–73; RESP 15–27; TEMP 36.2–36.6; O2SAT 93–100
--- NOTE | ~2022-12-01 | XR_ITS ---
EXAMINATION: XR chest 1V portable Exam Date/Time: 12/01/2022 20:05 CDT HISTORY: poss aspiration, SOB Comparison: 11/22/2022. RESULT: Exam limited by significant rotation. Lines, tubes, and devices: None. Lungs and pleura: Indistinct vessels and diffuse reticular opacities, similar to the prior study. No focal consolidation. Right basilar graded opacity. Mild right costophrenic angle blunting. Cardiomediastinal silhouette: Stable. Other: No acute osseous or upper abdominal finding. IMPRESSION: Rotation limited examination. Right basilar atelectasis with small right pleural effusion, infection not excluded. Mild interstitial edema. Reviewed, dictated and finalized at location K. IMPRESSION: Rotation limited examination. Right basilar atelectasis with small right pleura l effusion, infection not excluded. Mild interstitial edema.
--- NOTE | ~2022-12-01 | CT_ITS ---
EXAMINATION: CT abdomen pelvis wo con DATE: 12/01/2022 18:56 INDICATION: LUQ/epigastric pain TECHNIQUE: Computed tomography (CT) of the abdomen and pelvis was performed without intravenous contr ast. Automated exposure control and iterative reconstruction technique were employed. The dose-length product was 1030.98 mGy-cm. COMPARISON: 06/14/2022. FINDINGS: Lower thorax: Cardiomegaly. Aortic valve, coronary artery, and mitral calcification. Small right effu osmel. Atelectasis/consolidation in the right dependent lung. Right lower lobe airway debris. Liver: Hepatomegaly. Simple left lobe cyst Biliary/Gallbladder: Gallbladder is normal. No bile duct dilation. Pancreas: No mass or duct dilation. Spleen: Normal. Adrenals:No mass. Kidneys: Bilateral atrophy, greater on the right. Simple left inferior pole and right mid pole cysts and multiple nonobstructing calculi most of which appear to be vascular, in the renal hilum. No suspi cious mass. GI tract: The rectum is dilated to 7.4 cm by formed stool, without significant wall thickening or samuel rounding inflammatory change No small bowel dilation. Normal appendix. Mild diverticulosis without di verticulitis. Mesentery/Peritoneum: No ascites, mass, or free air. Coarse calcification in the right lower quadrant mesentery. Retroperitoneum: No mass. Atherosclerotic abdominal aortic and/or arterial calcifications. 2.9 cm fus iform infrarenal abdominal aortic aneurysm. Pelvis: Pelvic organs are within normal limits. Soft Tissues: Soft tissues and body wall unremarkable. Bones: No acute osseous finding. Uncomplicated appearing partially visualized right femoral hardware IMPRESSION: Right basilar atelectasis/consolidation, with likely component of aspiration. Small right effusion, s lightly improved. Fecal impaction. No other acute abdominopelvic process detected. Chronic and incide ntal findings detailed above. Reviewed, dictated and finalized at location K. IMPRESSION: Right basilar atelectasis/consolidation, with likely component of aspiration. S mall right effusion, slightly improved. Fecal impaction. No other acute abdomin opelvic process detected. Chronic and incidental findings detailed above.
--- NOTE | 2022-12-01 19:06 | ED.RECABL ---
HPI - Recheck/Abnormal Lab/Rx General Chief Complaint: Recheck/Abnormal Lab/Rx <Tigist Farmer MD - Last Filed: 12/02/22 12:04> Stated Complaint: abd pain <Tigist Farmer MD - Last Filed: 12/02/22 12:04> Time Seen by Provider: 12/01/22 17:45 <Tigist Farmer MD - Last Filed: 12/02/22 12:04> History of Present Illness HPI narrative: Patient is an 87-year-old female with a history of ESRD on dialysis, hyperlipidemia, hypertension, chronic anemia presenting for possible low hemoglobin. Patient is coming from a nursing facility. Reportedly her CBC was checked and her hemoglobin was low. Patient is A&O x2 at baseline. She is not able to provide much history. She states that she has been having some epigastric pain for the last 2 days. Denies chest pain or shortness of breath. Denies leg swelling, numbness or weakness, fevers, vomiting, diarrhea. States that she does still make urine and denies dysuria. <Tigist Farmer MD - Last Filed: 12/02/22 12:04> Related Data Home Medications: Home Medications Medication Instructions Recorded Confirmed atorvastatin 20 mg tablet 20 mg PO HS 06/22/21 10/26/22 ergocalciferol (vitamin D2) 1,250 50,000 unit PO WEEKLY 06/22/21 10/26/22 mcg (50,000 unit) capsule latanoprost 0.005 % eye drops 1 drp EACH EYE HS 06/22/21 10/26/22 spironolactone 25 mg tablet 12.5 mg PO DAILY 06/22/21 10/26/22 acetaminophen 650 mg tablet 650 mg PO Q6H PRN Pain (Scale 07/21/22 10/26/22 Score 1-3) buspirone 7.5 mg tablet 7.5 mg PO BID 07/21/22 10/26/22 omeprazole 20 mg capsule,delayed 20 mg PO DAILY 07/21/22 10/26/22 release <Tigist Farmer MD - Last Filed: 12/02/22 12:04> Allergies/Adverse Reactions: Allergies Allergy/AdvReac Type Severity Reaction Status Date / Time adhesive tape Allergy Unknown PLASTIC Verified 12/01/22 17:34 TAPE hydrochlorothiazide Allergy Unknown Verified 12/01/22 17:34 latex Allergy Rash Verified 12/01/22 17:34 <Tigist Farmer MD - Last Filed: 12/02/22 12:04> Review of Systems Review of Systems: All systems reviewed & are unremarkable except as noted in HPI and below <Tigist Farmer MD - Last Filed: 12/02/22 12:04> PMFSH Past Medical History Medical History: Medical History Chronic anemia Chronic obstructive pulmonary disease Chronic respiratory failure with hypoxia On 2 to 3 liters nasal cannula. COVID-19 (06/2021) Diastolic dysfunction End-stage renal disease on hemodialysis Erythropoietin deficiency anemia Gastroesophageal reflux disease Glaucoma Hyperlipidemia Hypertension Hypothyroidism Osteoarthritis Pulmonary hypertension Renal osteodystrophy Type 2 diabetes mellitus Vitamin D deficiency <Tigist Farmer MD - Last Filed: 12/02/22 12:04> Surgical History Surgical History: Surgical History Status post creation of arteriovenous fistula Left upper extremity. <Tigist Farmer MD - Last Filed: 12/02/22 12:04> Family History Family History: Family History Other Diabetes mellitus Hypertension <Tigist Farmer MD - Last Filed: 12/02/22 12:04> Social History Social History: Social History Social History: Surrogate decision maker: Amy Contreras, son. Code status: Do not resuscitate. Smoking packs per day: 1 Smoking cigarettes per day: 20.0 Years smoked: 34 Smoking pack-years: 34.00 Smoking status: Unknown if ever smoked Tobacco type: cigarettes Second hand tobacco smoke exposure: No Alcohol intake: unknown Substance use: unknown Substance use type: does not use Lack of Transportation: No Lack of Food: Never True Current Housing: I Have Housing Concerned About Future Housing: No Diffi
[2022-12-01 19:21] LABS: Basophils Absolute Auto 0.1 K/mm3 (0.0-0.1); Basophils Percent Auto 0.7 % (0.2-1.2); Eosinophils Absolute Auto 0.5 K/mm3 (0-0.3); Eosinophils Percent Auto 7.2 % (0-4.4); Hematocrit 22.4 % (37.0-47.0); Immature Granulocyte Absolute 0.08 K/mm3 (0.00-0.031); Immature Granulocyte Percent A 1.1 % (0-0.5); Lymphocytes Absolute Auto 0.96 K/mm3 (0.9-3.2); Lymphocytes Percent Auto 13.6 % (18.3-44.2); Mean Corpuscular Hemoglobin 29.7 pg (26-34); Mean Corpuscular Volume 102.3 fl (80-100); Mean Platelet Volume 10.6 fl (7.4-10.4); Monocytes Absolute Auto 0.7 K/mm3 (0.1-0.6); Monocytes Percent Auto 10.1 % (2.6-8.5); Neutrophils Absolute Auto 4.7 K/mm3 (1.3-6.7); Neutrophils Percent Auto 67.3 % (45.5-73.1); Platelet Count Result 273 k/mm3 (150-375); Red Blood Count 2.19 M/mm3 (4.2-5.4); Red Cell Distribution Width 16.1 % (11.5-14.5)
[2022-12-01 19:30] LABS: Alanine Aminotransferase 8 U/L (6-35); Albumin Level 3.6 g/dL (3.5-5.1); Alkaline Phosphatase 61 U/L (38-126); Anion Gap 5 mmol/L (8-16); Aspartate Amino Transferase 16 U/L (14-36); Bilirubin,Total 0.2 mg/dL (0.2-1.3); Blood Urea Nitrogen 47 mg/dL (7-17); Carbon Dioxide 37 mmol/L (22-30); Chloride 97 mmol/L (98-107); Estimated Glomerular Filt Rate 8; Glucose 87 mg/dL (65-110); Lipase 147 U/L (23-300); Potassium 4.8 mmol/L (3.4-5.0); Sodium 139 mmol/L (137-145)
[2022-12-01 19:47] LABS: Hemoglobin 6.5 g/dL (12.0-15.0); Hypochromasia 2+ (NORMAL); Platelet Estimate Adequate (Adequate); Schistocytes None Seen (NORMAL)
[2022-12-01 19:48] LABS: Poikilocytosis 1+ (NORMAL)
[2022-12-01] MEDS: SODIUM CHLORIDE 0.9% IV 250 ML 30 ML IV CONT (22:48)
[2022-12-01] MEDS: TUBING, BLOOD PLUM PUMP TUBING 1 EACH XX (22:48)
[2022-12-02 01:47] VITALS: BP 171/51; PULSE 69; RESP 27; O2SAT 100
== END 2022-12-02 02:09 ==
PROVIDERS: Emergency Provider Emergency Medicine; PCP Internal Medicine
DX: E11.22 Type 2 diabetes mellitus with diabetic chronic kidney disease (principal); I12.0 Hypertensive chronic kidney disease with stage 5 chronic kidney disease or end stage renal disease; N18.6 End stage renal disease; D63.1 Anemia in chronic kidney disease; E78.5 Hyperlipidemia, unspecified; E03.9 Hypothyroidism, unspecified; J44.9 Chronic obstructive pulmonary disease, unspecified; F17.210 Nicotine dependence, cigarettes, uncomplicated; Z99.2 Dependence on renal dialysis
CPT/HCPCS: 36415; 36430; 71045; 74176; 80053; 83690; 85025; 86850; 86900; 86901; 86923; 99285; J7050; P9016

== ENCOUNTER 2023-01-19 13:48 | Inpatient (IN) | payer MEDICARE, MEDICAID, SELFPAY ==
[2023-01-19] VITALS (14 sets, daily range): BP systolic 111–152; BP diastolic 43–69; PULSE 79–97; RESP 16–28; TEMP 36.6–37.1; O2SAT 86–100; BMI 29.2
--- NOTE | ~2023-01-19 | XR_ITS ---
XR_KUBGTUBINS_CR DATE: 01/28/2023 12:53 INDICATION: NG tube placement TECHNIQUE: Portable AP view on 01/28/2023 at 1251 hours COMPARISON: None FINDINGS: An NG tube is present in the body of the stomach, the proximal side-port approximately 2.8 cm distal to the diaphragmatic hiatus. There are bibasilar infiltrates and/atelectasis and mild bilat eral pleural effusions. Bilateral hyperinflation, suggesting obstructive airways disease. Aortic calcification. Diffuse osteopenia. Degenerative spurring of the thoracic spine. Osteopenia. IMPRESSION: NG tube in body of stomach Reviewed, dictated and finalized at [facility]. Reviewed, dictated and finalized at location A. IMPRESSION: NG tube in body of stomach
--- NOTE | ~2023-01-19 | CT_ITS ---
EXAMINATION: CT chest abdomen pelvis wo con DATE: 01/20/2023 15:52 INDICATION: Abdominal pain and distention, cough TECHNIQUE: Transaxial computed tomographic images of the chest, abdomen, and pelvis were obtained wit hout intravenous contrast. The dose-length product (DLP) was 1441.89 mGy-cm. Automated exposure contr ol and iterative reconstruction technique were employed. COMPARISON: 01/19/2023 FINDINGS: CHEST CT: Respiratory motion artifact limits evaluation of the chest. There is mild emphysema. There are small pleural effusions with loculation on the right and fluid in the major fissure. There are airspace opa cities and mucous plugging of the lower lobes. There is no pneumothorax. Cardiomegaly is noted. There is a 5 mm nodule of the right lung apex. There are no pathologically enlarged thoracic lymph nodes. There is severe thoracic spondylosis. ABDOMEN/PELVIS CT: Cysts of the liver measure up to 1.9 cm in the right hepatic lobe. The spleen, pancreas, and adrenal glands are normal. There is mild gallbladder distention, likely due to fasting state. There is mild a trophy of the kidneys. There is an 11 mm cyst of the left kidney lower pole. There is calcified ather osclerosis of the aorta and many of the other arteries. No pathologically enlarged abdominal or pelvi c lymph nodes are identified. No free intraperitoneal gas or evidence of bowel obstruction. Again not ed is a compression deformity of L3. There is antegrade intramedullary james and interlocking intratroc hanteric screw fixation of the right femur. IMPRESSION: 1. Airspace opacities of the lower lobes, likely combination of pneumonia and atelectasis. 2. Small pleural effusions with areas of loculation on the right. 3. No acute findings of the abdomen or pelvis. Reviewed, dictated and finalized at location [facility]. IMPRESSION: 1. Airspace opacities of the lower lobes, likely combination of pneumonia and a telectasis. 2. Small pleural effusions with areas of loculation on the right. 3. No acute findings of the abdomen or pelvis.
--- NOTE | ~2023-01-19 | XR_ITS ---
MODIFIED ESOPHAGRAM HISTORY: Aspiration pneumonia TECHNIQUE: Modified barium esophagram was performed on 01/31/2023. I administered fluoroscopy and perf ormed the exam with speech pathologist. Patient was seated for lateral fluoroscopic imaging for ashleigh stion of thin liquids, pudding, solids and quantified amounts, followed by thin liquids in uncontroll ed amounts. This was recorded on tape. A single fluoroscopic spot image was also recorded. The DAP fo r this procedure was 2.135 Gycm2. The amount of fluoroscopy time used during this procedure was 3.4 m inutes. FINDINGS: Oral stage: Adequate function. Pharyngeal stage: Mild vallecular residue. No evident laryngeal penetration or aspiration. Cervical/esophageal stage: Adequate function. IMPRESSION: Minimal pharyngeal dysphagia with no laryngeal penetration or aspiration. Please correla te with speech pathologist findings and specific feeding recommendations. Reviewed, dictated and finalized at location A. IMPRESSION: Minimal pharyngeal dysphagia with no laryngeal penetration or aspir ation. Please correlate with speech pathologist findings and specific feeding recommendations.
--- NOTE | ~2023-01-19 | XR_ITS ---
MODIFIED ESOPHAGRAM HISTORY: Concern for aspiration TECHNIQUE: Modified barium esophagram was performed on 01/27/2023. I administered fluoroscopy and perf ormed the exam with speech pathologist. Patient was seated for lateral fluoroscopic imaging for ashleigh stion of thin liquids, pudding, solids and quantified amounts, followed by thin liquids in uncontroll ed amounts. This was recorded on tape. A single fluoroscopic spot image was also recorded. The DAP fo r this procedure was 2.256 Gycm2. The amount of fluoroscopy time used during this procedure was 3.5 m inutes. FINDINGS: Oral stage: Adequate function. Pharyngeal stage: Reduced laryngeal elevation and tongue base retraction with increased residue in th e vallecula and piriform sinus. There was laryngeal penetration and trace amount of silent aspiration . Cervical/esophageal stage: Adequate function. IMPRESSION: Pharyngeal dysphagia with small amount of laryngeal penetration and silent aspiration. P lease correlate with speech pathologist findings and specific feeding recommendations. Reviewed, dictated and finalized at location A. IMPRESSION: Pharyngeal dysphagia with small amount of laryngeal penetration and silent aspiration. Please correlate with speech pathologist findings and spec [facility] feeding recommendations.
--- NOTE | ~2023-01-19 | XR_ITS ---
EXAMINATION: XR_KUBGTUBPOS_CR DATE: 01/28/2023 15:49 INDICATION: Nasogastric tube placement TECHNIQUE: AP view of the abdomen was obtained for assessment of nasogastric tube placement COMPARISON: 01/28/2023 FINDINGS: Line nasogastric tube tip in proximal side port in the body of the stomach. Persistent surg ical clip at the proximal gastric body. Retained oral contrast material throughout the colon includin g within a few colonic diverticula. Opacities at the bilateral lung bases with blunting at costophren ic angles consistent with small bilateral pleural effusions and associated atelectasis or pneumonia. Cardiomegaly. IMPRESSION: 1. Nasogastric tube in stomach. 2. Small bilateral pleural effusions with bibasilar atelectasis versus less likely pneumonia. 3. Cardiomegaly. Reviewed, dictated and finalized at location A. IMPRESSION: 1. Nasogastric tube in stomach. 2. Small bilateral pleural effusions with bibasilar atelectasis versus less lik arnaud pneumonia. 3. Cardiomegaly.
--- NOTE | ~2023-01-19 | XR_ITS ---
EXAMINATION: XR chest 1V portable DATE: 01/26/2023 15:46 INDICATION: Aspiration TECHNIQUE: frontal view of the chest was obtained. COMPARISON: Chest radiograph dated 01/25/[address] dated 01/20/23 FINDINGS: Cardiomegaly with pulmonary vascular congestion. Diffuse bilateral increased interstitial pattern con sistent with mild pulmonary edema. Small right pleural effusion which tracks along the fissure. Small more patchy airspace opacities in the left mid and lower lung zones. No pneumothorax or definitive l eft pleural effusion. IMPRESSION: 1. Likely congestive heart failure with cardiomegaly, pulmonary vascular congestion and diffuse pulmo nary edema. 2. Small right pleural effusion. 3. Small patchy airspace opacity left mid and lower lung zones which could represent more focal pulmo nary edema, atelectasis, pneumonia or aspiration. Reviewed, dictated and finalized at location A. IMPRESSION: 1. Likely congestive heart failure with cardiomegaly, pulmonary vascular conges tion and diffuse pulmonary edema. 2. Small right pleural effusion. 3. Small patchy airspace opacity left mid and lower lung zones which could repr esent more focal pulmonary edema, atelectasis, pneumonia or aspiration.
--- NOTE | ~2023-01-19 | XR_ITS ---
EXAMINATION: XR barium swallow modified DATE: 01/22/2023 14:48 INDICATION: Dysphagia. TECHNIQUE: The patient was given barium-containing material of multiple consistencies to swallow by t he speech pathologist while I performed fluoroscopy. Fluoroscopy exposure time was 2.1 minutes. The n umber of fluoroscopy images saved to the PACS was 1. Dose-area product was 1.425 Gy-cm^2. FINDINGS: There is reduced laryngeal elevation, reduced tongue base retraction, reduced pharyngeal squeeze, and laryngeal penetration. IMPRESSION: 1. Laryngeal penetration. No aspiration. 2. Please refer to the speech therapy report for recommendations. Reviewed, dictated and finalized at location A.
--- NOTE | ~2023-01-19 | XR_ITS ---
EXAMINATION: XR chest 1V portable DATE: 01/19/2023 14:46 INDICATION: Shortness of breath TECHNIQUE: frontal view of the chest was obtained. COMPARISON: Chest radiograph an CT abdomen and pelvis dated 12/01/2022 FINDINGS: Patient is rotated towards the right. Ultimately with right atrial enlargement. Opacities in the righ t mid to lower and left lower lung zones. This includes a likely small right pleural effusion with bl unting at the right costophrenic angle. No pneumothorax. There are bridging osteophytes at multiple l evels in the spine, consistent with diffuse idiopathic skeletal hyperostosis (DISH). IMPRESSION: 1. Opacities in the right mid to lower and left lower lung zones most likely mild pulmonary edema and atelectasis although differential includes pneumonia. 2. Small right pleural effusion. 3. Cardiomegaly with right atrial enlargement. Reviewed, dictated and finalized at location A. IMPRESSION: 1. Opacities in the right mid to lower and left lower lung zones most likely mi ld pulmonary edema and atelectasis although differential includes pneumonia. 2. Small right pleural effusion. 3. Cardiomegaly with right atrial enlargement.
--- NOTE | ~2023-01-19 | CT_ITS ---
EXAMINATION: CT abdomen pelvis wo con DATE: 01/19/2023 15:21 INDICATION: abdominal pain TECHNIQUE: Computed tomography (CT) of the abdomen and pelvis was performed without intravenous contr ast. Automated exposure control and iterative reconstruction technique were employed. The dose-length product was 1242.20 mGy-cm. COMPARISON: 3023. FINDINGS: Lower thorax: Aortic valve and mitral calcification. Coronary artery calcification. Mild cardiomegaly . Senescent and emphysematous changes in the lungs. Bilateral atelectasis or scar. Scattered tree-in- bud opacities, most evident in the left lower lobe. Trace pleural effusions. Scattered airway debris. Liver: Hepatomegaly. Simple right liver lobe cysts. Biliary/Gallbladder: Gallbladder is normal. No bile duct dilation. Pancreas: No mass or duct dilation. Spleen: Normal. Adrenals:No mass. Kidneys: Bilateral simple cysts. Subcentimeter exophytic right lower pole lesion, likely proteinaceou s or hemorrhagic cyst. Bilateral atrophy, worse on the right. No hydronephrosis. No obstructing calci fication. GI tract: The rectum is dilated up to 7.9 cm by formed stool. No significant wall thickening or surro unding inflammatory change. No small bowel dilation. Appendix not confidently visualized. Mild divert iculosis without diverticulitis. Mesentery/Peritoneum: No ascites, mass, or free air. Stable coarse calcification in the right lower q uadrant mesentery. Retroperitoneum: No mass. Atherosclerotic abdominal aortic and/or arterial calcifications. 2.9 cm inf rarenal abdominal aortic aneurysm. Pelvis: Pelvic organs are within normal limits. Soft Tissues: Mild diffuse body wall edema. Bones: No acute osseous finding. Partially visualized uncomplicated appearing right proximal femoral hardware. Stable compression deformity at L3. IMPRESSION: Likely atypical infection/aspiration noted in the lung bases. Small bilateral pleural effusions. Fecal impaction. No other acute abdominopelvic process detected. Reviewed, dictated and finalized at location K. IMPRESSION: Likely atypical infection/aspiration noted in the lung bases. Small bilateral p leural effusions. Fecal impaction. No other acute abdominopelvic process detected.
--- NOTE | ~2023-01-19 | XR_ITS ---
XR_KUBGTUBINS_CR DATE: 01/28/2023 14:06 INDICATION: NG placement; previous tube was pulled out TECHNIQUE: Portable AP view on 01/28/2023 at 1401 hours COMPARISON: 01/28/2023 portable AP view at 1251 hours FINDINGS: The nasogastric tube is present in the upper body of the stomach, the proximal side port ap proximately 4 cm distal to the diaphragmatic hiatus. Again noted is prominent bibasilar infiltrate and/or atelectasis and small bilateral pleural effusion s. IMPRESSION: NG tube in upper body of stomach Reviewed, dictated and finalized at [facility]. Reviewed, dictated and finalized at location A.
--- NOTE | ~2023-01-19 | XR_ITS ---
EXAMINATION: XR chest 1V portable DATE: 01/25/2023 06:44 INDICATION: Aspiration pneumonia. TECHNIQUE: A single frontal view of the chest was obtained. COMPARISON: Chest single view 01/19/2023, chest CT 01/20/2023 FINDINGS: The patient is rotated to her right. There are airspace opacities at right lung base. There is a small right pleural effusion. No pneumothorax. Cardiomegaly is noted. IMPRESSION: 1. Stable small right pleural effusion. 2. Stable airspace opacities at right lung base, consistent with atelectasis versus pneumonia. 3. Cardiomegaly. Reviewed, dictated and finalized at location A. IMPRESSION: 1. Stable small right pleural effusion. 2. Stable airspace opacities at right lung base, consistent with atelectasis ve rsus pneumonia. 3. Cardiomegaly.
--- NOTE | 2023-01-19 14:16 | ECG_ITS ---
Measurements Intervals [place] Rate: 84 P: 260 [place]: 84 QRS: -22 QRSD: 133 T: 128 QT: 389 QTc: 461 Interpretive Statements SINUS RHYTHM WITH PACS BORDERLINE LEFT AXIS DEVIATION [QRS AXIS < -20] INTRAVENTRICULAR CONDUCTION DELAY [130+ ms QRS DURATION] LEFT VENTRICULAR HYPERTROPHY AND ST-T CHANGE [VOLTAGE CRITERIA PLUS ST/T ABNORMALITY] COMPARED TO ECG 11/22/2022 14:52:22 ATRIAL ECTOPIC ACTIVITY IS NOW PRESENT NO OTHER SIGNIFICANT CHANGE Electronically Signed On 01-19-2023 16:13:09 CDT by Jose Cruz Oliver M.D.
[2023-01-19 14:38] LABS: Alveolar/Arterial O2 Gradient 85.5 mmHg; Carboxyhemoglobin 1.3 % THb (0-2.0); Fractional Inspired Oxygen 28 %; HCO3 ABG 28.6 mEq/l (22.0-26.0); Methemoglobin ABG 0.5 %THb (0-1.5); Oxygen Content ABG 7.3 %vol (16.0-22.0); Oxygen Saturation ABG 92.7 % (95.0-100.0); PCO2 ABG 43.4 mmHg (35.0-45.0); PO2 ABG 62.9 mmHg (80.0-100.0); PO2 FiO2 Ratio Arterial Blood 2.25 %; Reduced Hemoglobin 10.2 %THb (0-5.0); pH ABG 7.436 (7.350-7.450)
[2023-01-19 14:39] LABS: Device NASAL CANNULA; Site Drawn RIGHT BRACHIAL; Total Hemoglobin 5.8 g/dL (12.0-18.0)
[2023-01-19 15:21] LABS: Basophils Percent Auto 0.3 % (0.2-1.2); Eosinophils Absolute Auto 0.3 K/mm3 (0-0.3); Eosinophils Percent Auto 4.7 % (0-4.4); Immature Granulocyte Absolute 0.08 K/mm3 (0.00-0.031); Immature Granulocyte Percent A 1.4 % (0-0.5); Lymphocytes Absolute Auto 0.22 K/mm3 (0.9-3.2); Lymphocytes Percent Auto 3.8 % (18.3-44.2); Mean Corpuscular HGB Conc 30.6 g/dl (32-36); Mean Corpuscular Hemoglobin 30.3 pg (26-34); Mean Corpuscular Volume 98.9 fl (80-100); Mean Platelet Volume 11.4 fl (7.4-10.4); Monocytes Absolute Auto 0.6 K/mm3 (0.1-0.6); Monocytes Percent Auto 9.7 % (2.6-8.5); Neutrophils Absolute Auto 4.6 K/mm3 (1.3-6.7); Neutrophils Percent Auto 80.1 % (45.5-73.1); Platelet Count Result 221 k/mm3 (150-375); Red Blood Count 1.75 M/mm3 (4.2-5.4); Red Cell Distribution Width 15.9 % (11.5-14.5); White Blood Count 5.8 K/mm3 (4.5-10.0)
[2023-01-19 15:31] LABS: Alanine Aminotransferase 9 U/L (6-35); Albumin Level 3.6 g/dL (3.5-5.1); Alkaline Phosphatase 57 U/L (38-126); Anion Gap 9 mmol/L (8-16); Aspartate Amino Transferase 17 U/L (14-36); Bilirubin,Total 0.5 mg/dL (0.2-1.3); Blood Urea Nitrogen 72 mg/dL (7-17); Calcium 7.7 mg/dL (8.4-10.2); Carbon Dioxide 34 mmol/L (22-30); Chloride 93 mmol/L (98-107); Estimated CRCL calculation 9 ml/min; Estimated Glomerular Filt Rate 8; Glucose 150 mg/dL (65-110); Lipase 85 U/L (23-300); Potassium 3.9 mmol/L (3.4-5.0); Sodium 136 mmol/L (137-145)
--- NOTE | 2023-01-19 15:31 | ED.SOB ---
HPI - SOB/Dyspnea General Chief Complaint: Shortness of Breath/Dyspnea Stated Complaint: SOB Time Seen by Provider: 01/19/23 14:05 Source: patient, EMS and RN notes reviewed Mode of arrival: EMS Limitations: dementia History of Present Illness HPI Narrative: This is an 87 year old female with history of chronic respiratory failure on 3 L NC , ESRD on dialysis, hypertension, GI bleeding, anemia who presents from dialysis for evaluation of shortness of breath. PAtient is poor historian. She states she does not know why she is here but she reports she has abdominal pain. She is unable to describe her pain or the location. She unable to tell me when pain started. EMS reports patient only completed part of her treatment on Sunday and today she completed 1.5 hours. She was complaining about shortness of breath during dialysis. She denies chest pain, nausea, vomiting. Related Data Home Medications Medication Instructions Recorded Confirmed atorvastatin 20 mg tablet 20 mg PO HS 06/22/21 01/19/23 ergocalciferol (vitamin D2) 1,250 50,000 unit PO WEEKLY 06/22/21 01/19/23 mcg (50,000 unit) capsule latanoprost 0.005 % eye drops 1 drp EACH EYE HS 06/22/21 01/19/23 spironolactone 25 mg tablet 25 mg PO DAILY 06/22/21 01/19/23 acetaminophen 650 mg tablet 650 mg PO Q6H PRN Pain (Scale 07/21/22 01/19/23 Score 1-3) buspirone 7.5 mg tablet 7.5 mg PO BID 07/21/22 01/19/23 omeprazole 20 mg capsule,delayed 20 mg PO DAILY 07/21/22 01/19/23 release clonidine HCl 0.1 mg tablet 0.1 mg PO TID 01/19/23 01/19/23 sevelamer carbonate 0.8 gram oral 0.8 g PO TID 01/19/23 01/19/23 powder packet (Renvela) Allergies Allergy/AdvReac Type Severity Reaction Status Date / Time adhesive tape Allergy Unknown PLASTIC Verified 12/01/22 17:34 TAPE hydrochlorothiazide Allergy Unknown Verified 12/01/22 17:34 latex Allergy Rash Verified 12/01/22 17:34 Review of Systems Review of Systems: ROS unobtainable: Yes unobtainable due to medical condition PMFSH Past Medical History Medical History (Updated 01/19/23 @ 19:38 by Elvi Caal MD) Chronic anemia Chronic obstructive pulmonary disease Chronic respiratory failure with hypoxia On 2 to 3 liters nasal cannula. COVID-19 (06/2021) Diastolic dysfunction End-stage renal disease on hemodialysis Erythropoietin deficiency anemia Gastroesophageal reflux disease Glaucoma Hyperlipidemia Hypertension Hypothyroidism Osteoarthritis Pulmonary hypertension Renal osteodystrophy Type 2 diabetes mellitus Diet-controlled. Vitamin D deficiency Surgical History Surgical History Status post creation of arteriovenous fistula Left upper extremity. Family History Family History Other Diabetes mellitus Hypertension Social History Social History Social History: Surrogate decision maker: Amy Contreras, roman. Code status: Do not resuscitate. 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 Spiritual care concerns: No Exam Const: General: no acute distress and alert Other: oriented to place and name. She is at baseline HENMT: Head: normal to inspection Eyes: EOM: EOMs intact bilaterally Chest: Chest palp
[2023-01-19 15:33] LABS: Lactic Acid Reflex 1.4 mmol/L (0.7-2.0)
[2023-01-19 15:37] LABS: Partial Thromboplastin Time 35.9 SECONDS (22.3-36.8)
[2023-01-19 15:48] LABS: NT Pro B Type Natriuretic Pept 18200 pg/mL (19.9-100); Troponin I 0.045 ng/mL (0.000-0.034)
[2023-01-19 16:08] LABS: Hematocrit 17.3 % (37.0-47.0); Hemoglobin 5.3 g/dL (12.0-15.0)
[2023-01-19] MEDS: SODIUM CHLORIDE 0.9% IV 250 ML 30 ML IV CONT (16:43)
[2023-01-19] MEDS: PANTOPRAZOLE SODIUM IV 40 MG VIAL IV PUSH (16:43)
--- NOTE | 2023-01-19 16:47 | PM.IMHP ---
H&P: HPI History of Present Illness Date/Time: 01/19/23 16:45 Chief Complaint: Shortness of breath. Narrative: This is an 87-year-old female with end-stage renal disease on hemodialysis, chronic respiratory failure on 2 to 3 L nasal cannula, chronic obstructive pulmonary disease, pulmonary hypertension, diastolic dysfunction, hypertension, chronic anemia, diet-controlled diabetes, and dementia who presented to the emergency department for evaluation of shortness of breath. The patient provides the following history however it is somewhat limited by her significant hearing loss and underlying dementia. She missed dialysis this past Sunday for unclear reasons and today she only completed 1.5 hours of dialysis before dialysis staff members called EMS after she began complaining of shortness of breath. Upon arrival to the ED she was unable to say why she was brought in. She did mention vague abdominal discomfort and a CT of the abdomen and pelvis showed fecal impaction and likely atypical infection or aspiration in the lung bases with small bilateral pleural effusions. Labs were significant for hemoglobin and hematocrit of 5.3 and 17.3% respectively, sodium 136, potassium 3.9, troponin 0.045, proBNP 8200. EKG was negative for acute ST segment elevations and depressions and no significant changes were noted from previous tracings. Stool was Hemoccult positive according to the ED physician. The patient has been previously evaluated by GI with no obvious source of bleeding. She is being admitted in this setting for blood transfusion and close monitoring. At the time my evaluation her main complaint is that of fatigue. She has not noticed any obvious blood loss. She denies chest pain, pleuritic pain, palpitations, cough, nausea, vomiting, diarrhea, dysphagia, and concerns for aspiration. Review of Systems Review of Systems: Twelve systems were reviewed and are negative except for as per HPI. [facility] Past Medical History Medical History Chronic anemia Chronic obstructive pulmonary disease Chronic respiratory failure with hypoxia On 2 to 3 liters nasal cannula. COVID-19 (06/2021) Diastolic dysfunction End-stage renal disease on hemodialysis Erythropoietin deficiency anemia Gastroesophageal reflux disease Glaucoma Hyperlipidemia Hypertension Hypothyroidism Osteoarthritis Pulmonary hypertension Renal osteodystrophy Type 2 diabetes mellitus Diet-controlled. Vitamin D deficiency Surgical History Surgical History Status post creation of arteriovenous fistula Left upper extremity. Family History Family History Other Diabetes mellitus Hypertension Social History Social History Social History: Surrogate decision maker: Amy Contreras, son. Code status: Do not resuscitate. 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 Spiritual care concerns: No Meds Home Medications and Allergies Home Medications Medication Instructions Recorded Confirmed Type atorvastatin 20 mg tablet 20 mg PO HS 06/22/21 01/19/23 History ergocalciferol (vitamin D2) 1,250 50,000 unit PO WEEKLY 06/22/21 01/19/23 History mcg (50
[2023-01-19] MEDS: TUBING, BLOOD PLUM PUMP TUBING 1 EACH XX (16:53)
[2023-01-19 16:58] LABS: Influenza A QL RT-PCR Negative (Negative); Influenza B QL RT-PCR Negative (Negative); SARS-CoV-2 RNA PCR Negative (Negative)
--- NOTE | 2023-01-19 17:44 | PC.NURSE ---
Dialysis clamps taken off by Dr Caal and patient removed dressing herself. Patient continues to yell for help from her room and when someone goes to check on patient and ask what she needs, she states I dont know .
--- NOTE | 2023-01-19 18:28 | ADMGEN ---
This patient, Sofía Contreras, was admitted to IMU Room 206-02. Patient/family oriented to hospital policies and general routines including ID bracelet, bed and alarms, visiting hours, pain management, procedures, bathroom and other care routines, personal items, smoking policy, room service/diet, and visiting hours. Information on how to activate the Rapid Response Team has been discussed. Patient/Family are encouraged to report perceived risks to care and to ask questions if they do not understand what they are told or what they should do.
[2023-01-19 21:28] LABS: Troponin I 0.047 ng/mL (0.000-0.034)
[2023-01-19] MEDS: ATORVASTATIN 20 MG TABLET PO (21:57)
[2023-01-19] MEDS: LATANOPROST 0.005% OP SOLN 2.5 ML BTL 1 DROP EACH EYE (21:57)
[2023-01-19] MEDS: DOCUSATE SODIUM 100 MG CAPSULE PO (21:57)
[2023-01-19] MEDS: ALBUTEROL SULFATE NEB 2.5 MG/3 ML INH INHALATION (22:15)
[2023-01-20] VITALS (38 sets, daily range): BP systolic 86–162; BP diastolic 30–60; PULSE 54–88; RESP 16–22; TEMP 36.4–37.4; O2SAT 90–100
[2023-01-20] MEDS: FUROSEMIDE INJ 40 MG/4 ML VIAL 20 MG IV PUSH
[2023-01-20 00:27] LABS: Troponin I 0.046 ng/mL (0.000-0.034)
[2023-01-20] MEDS: ONDANSETRON INJ 4 MG/2 ML VIAL IV PUSH (01:24)
[2023-01-20 02:37] LABS: Basophils Percent Auto 0.4 % (0.2-1.2); Eosinophils Absolute Auto 0.4 K/mm3 (0-0.3); Eosinophils Percent Auto 7.7 % (0-4.4); Immature Granulocyte Absolute 0.07 K/mm3 (0.00-0.031); Immature Granulocyte Percent A 1.4 % (0-0.5); Lymphocytes Absolute Auto 0.52 K/mm3 (0.9-3.2); Lymphocytes Percent Auto 10.3 % (18.3-44.2); Mean Corpuscular HGB Conc 30.7 g/dl (32-36); Mean Corpuscular Hemoglobin 29.5 pg (26-34); Mean Corpuscular Volume 96.2 fl (80-100); Mean Platelet Volume 11.2 fl (7.4-10.4); Monocytes Absolute Auto 0.7 K/mm3 (0.1-0.6); Monocytes Percent Auto 13.6 % (2.6-8.5); Neutrophils Absolute Auto 3.4 K/mm3 (1.3-6.7); Neutrophils Percent Auto 66.6 % (45.5-73.1); Platelet Count Result 200 k/mm3 (150-375); Red Blood Count 1.83 M/mm3 (4.2-5.4); Red Cell Distribution Width 16.7 % (11.5-14.5); White Blood Count 5.1 K/mm3 (4.5-10.0)
[2023-01-20 02:51] LABS: Potassium 4.5 mmol/L (3.4-5.0)
[2023-01-20 02:54] LABS: Hemoglobin 5.4 g/dL (12.0-15.0)
[2023-01-20 02:55] LABS: Hematocrit 17.6 % (37.0-47.0)
[2023-01-20 03:07] LABS: Alanine Aminotransferase 7 U/L (6-35); Albumin Level 2.9 g/dL (3.5-5.1); Alkaline Phosphatase 45 U/L (38-126); Anion Gap 7 mmol/L (8-16); Aspartate Amino Transferase 21 U/L (14-36); Bilirubin,Total 0.5 mg/dL (0.2-1.3); Blood Urea Nitrogen 94 mg/dL (7-17); Calcium 7.4 mg/dL (8.4-10.2); Carbon Dioxide 31 mmol/L (22-30); Chloride 93 mmol/L (98-107); Estimated CRCL calculation 7 ml/min; Estimated Glomerular Filt Rate 7; Glucose 86 mg/dL (65-110); Magnesium 2.2 mg/dL (1.6-2.3); Sodium 131 mmol/L (137-145)
[2023-01-20 03:49] LABS: Troponin I 0.051 ng/mL (0.000-0.034)
[2023-01-20] MEDS: SODIUM CHLORIDE 0.9% IV 250 ML 30 ML (04:08)
[2023-01-20] MEDS: TUBING, BLOOD PLUM PUMP TUBING 1 EACH XX ×2 (04:09→21:48)
[2023-01-20] MEDS: LEVOTHYROXINE SODIUM 100 MCG TABLET PO (06:06)
[2023-01-20 08:30] LABS: Hematocrit 19.9 % (37.0-47.0); Hemoglobin 6.3 g/dL (12.0-15.0)
--- NOTE | 2023-01-20 09:30 | PM.IMPN ---
Progress Note: A&P Assessment and Plan (1) Symptomatic anemia: Code(s): D64.9 - Anemia, unspecified Status: Acute (2) End-stage renal disease on hemodialysis: Code(s): N18.6 - End stage renal disease; Z99.2 - Dependence on renal dialysis Status: Acute (3) Hypertension: Code(s): I10 - Essential (primary) hypertension Status: Chronic (4) Hypothyroidism: Code(s): E03.9 - Hypothyroidism, unspecified Status: Acute (5) Acute on chronic blood loss anemia: Code(s): D62 - Acute posthemorrhagic anemia Status: Acute Plan Symptomatic anemia Profound anemia associated with short of breath Patient has chronic anemia, likely secondary to acute renal failure but the patient needs repeated blood transfusion, possible acute on chronic blood-loss anemia she has had Hemoccult-positive stools previously, including today. Upper endoscopy in October [address] Guerra showed gastric and duodenal polyps without evidence of bleeding. 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 This is likely elevated in the setting of her renal disease and profound anemia. Essential hypertension her blood pressures were reviewed and they are stable. Acquired hypothyroidism continue levothyroxine. End-stage renal disease on dialysis nephrology consulted for dialysis. Subjective Date/time seen: 01/20/23 09:30 Interval history: I saw and examined patient today, patient complains short of breath, patient has a cough scant phlegm. Patient received 2 pack RBC. Repeated hemoglobin 6.3 patient is afebrile, blood pressure stable, patient has hypoxemia pulse ox 90 on 3 L nasal cannula Exam Narrative: General:?Hard of hearing. Chronically ill-appearing female. Weight: 90 kg. BMI: 29.3. HEENT:???PERRL, EOMI. Sclera anicteric. Changes of prior cataract surgery with lens implants. Tacky mucous membranes. Neck:??Supple. Some jugular venous distension. Respiratory:? Tachypnea, crackles bilateral lungs, prominent bilateral lower bases Cardiovascular:??Regular rate and rhythm with S1-S2. Soft systolic murmur at the upper sternal border. Gastrointestinal:??Abdomen is soft, nontender, and nondistended with positive bowel sounds. Skin:??Warm and dry.? No rash or lesions on limited exam. Extremities:??No cyanosis or clubbing. 1+ bilateral lower extremity edema, left greater than right. Left upper extremity AV fistula with palpable thrill and bruit. Neurological:??Alert.? Cranial nerves 2-12 are grossly intact. No gross focal deficits to casual conversation. Psychiatric:??Cooperative with appropriate mood and affect. Objective Data Vital Signs Vital Signs: Vital Signs - 24 hr 01/19/23 13:49 01/19/23 16:05 01/19/23 16:46 Temperature 98 F Pulse Rate 80 88 85 Respiratory Rate 16 22 H 28 H Blood Pressure 131/61 122/60 129/43 L Pulse Oximetry 93 94 98 Oxygen Delivery Nasal Cannula Oxygen Flow Rate 2 Fraction of Inspired Oxygen 01/19/23 17:03 01/19/23 18:00 01/19/23 18:30 Temperature 98 F 98.7 F Pulse Rate 88 82 86 Respiratory Rate 22 H 24 H 18 Blood Pressure 111/69 135/52 L 119/49 L Pulse Oximetry 95 97 97 Oxygen Delivery Oxygen Flow Rate Fraction of Inspired Oxygen 01/19/23 18:03 01/19/23 19:03 01/19/23 20:00 Temperature 98.7 F 98.5 F 97.8 F Pulse Rate 79 88 92 Respiratory Rate 24 H 24 H 18 Blood Pressure 135/52 L 152/43 H 143/43
[2023-01-20 09:33] LABS: Hepatitis B Surface Antigen Negative (Negative)
[2023-01-20 09:39] LABS: HAV RESULT Negative (Negative); Hepatitis B Core IgM Result Negative (Negative)
[2023-01-20] MEDS: busPIRone HCL 2.5 MG TABLET 7.5 MG PO (09:40)
[2023-01-20] MEDS: FERROUS SULFATE 325 MG TABLET DR PO (09:40)
[2023-01-20] MEDS: SPIRONOLACTONE 25 MG TABLET PO (09:41)
[2023-01-20] MEDS: cloNIDine HCL 0.1 MG TABLET PO (09:41)
[2023-01-20] MEDS: DOCUSATE SODIUM 100 MG CAPSULE PO (09:41)
[2023-01-20] MEDS: PANTOPRAZOLE 40 MG TABLET PO (09:41)
[2023-01-20] MEDS: SEVELAMER CARBONATE 800 MG TABLET PO (09:41)
[2023-01-20 09:51] LABS: Hepatitis C Virus Antibody Negative (Negative)
--- NOTE | 2023-01-20 12:54 | PCSTNOTE ---
Orders for modified barium swallow study received. Per radiology nursing said patient cannot have MBS today due to gastric issues that will need to be addressed first.
--- NOTE | 2023-01-20 14:58 | PM.CNNEP ---
Assessment and Plan Assessment and plan (1) End stage renal disease on dialysis: Code(s): N18.6 - End stage renal disease; Z99.2 - Dependence on renal dialysis Status: Acute Assessment and Plan: patient has end-stage renal disease. This is likely due to her diabetes and hypertension. Vascular disease may be playing a role as well. She gets dialysis 3 times a week. She missed dialysis on Sunday and only had a short dialysis yesterday. She does have fluid overload by chest x-ray and also has a little bit of swelling. Her potassium is okay. Will treat her today and remove some fluid. She is anemic so she is going to get some Epogen. She will also get a unit of blood while on the machine. (2) Shortness of breath: Code(s): R06.02 - Shortness of breath Status: Acute Assessment and Plan: The patient has shortness of breath . This is probably related to volume overload she has not had a good dialysis since Sunday. However anemia may be playing a role as well. (3) Symptomatic anemia: Code(s): D64.9 - Anemia, unspecified Status: Acute Assessment and Plan: The patient has anemia. She had a liquid stool. Will get a stool guaiac. She may have a GI bleed since her hemoglobin is so low. For this reason I will not give her heparin on dialysis. She is going to get a blood transfusion (4) Pulmonary edema: Code(s): J81.1 - Chronic pulmonary edema Status: Acute Assessment and Plan: this is probably because she missed dialysis. With the anemia this can lead to some pulmonary edema as well. (5) Type 2 diabetes mellitus: Code(s): E11.9 - Type 2 diabetes mellitus without complications Status: Chronic Assessment and Plan: On Accu-Cheks and sliding-scale insulin. Hospitalists some to manage this. (6) HTN (hypertension): Qualifiers: Hypertension type: primary hypertension Qualified Code(s): I10 - Essential (primary) hypertension Code(s): I10 - Essential (primary) hypertension Status: Chronic Assessment and Plan: Systolic running in the 120s and 130s for the most part. (7) Renal osteodystrophy: Code(s): N25.0 - Renal osteodystrophy Status: Acute Assessment and Plan: Check a phosphorus level in the morning (8) Abdominal pain: Code(s): R10.9 - Unspecified abdominal pain Status: Acute Assessment and Plan: she is getting a CT of the abdomen today. She could have some GI bleeding. Since she has the abdominal discomfort this suggests something like an ulcer. She is on IV pantoprazole. Ischemic bowel is always in the differential as well. Will see what the CAT scan shows. History of Present Illness Reason for Consult Consult date: 01/20/23 Chief Complaint Chief complaint: Symptomatic Anemia/ESRD on Dialysis/Dyspnea History of Present Illness Narrative: Sofía is a very pleasant 87-year-old lady who has multiple medical problems including end-stage renal disease on dialysis 3 times a week, hypertension, diastolic dysfunction, pulmonary hypertension, diabetes, arthritis, hypothyroidism, hyperlipidemia, GERD, anemia of chronic kidney disease, renal osteodystrophy, COPD, and dementia. The patient came in the hospital because of shortness of breath. the patient did not go to dialysis on Sunday. On Sunday she did go to dialysis but only completed about an hour and a half of treatments because she started getting short of breath. they sent her to the ER. She was seen in the emergency room. She was examined and found to be mildly volume overloaded. She had a CT of the abdomen and was found to have fecal impaction, bilateral pleural effusions. She was very anemic. She had a unit of blood and was admitted. Today she is complaining of abdominal pain for the last couple of hours. Not severe. She had some diarrhea. She has no nausea
[2023-01-20] MEDS: MORPHINE SULFATE (*CRX) 2 MG/ML INJ IV PUSH (18:00)
[2023-01-20] MEDS: EPOETIN ALFA 10,000 UNITS/ML VIAL 20000 UNITS IV PUSH (19:30)
[2023-01-20 22:17] LABS: IFOB Positive Control Positive; Immunochemical Fecal Occult Bl Positive (N)
[2023-01-21] VITALS (23 sets, daily range): BP systolic 121–143; BP diastolic 28–48; PULSE 60–88; RESP 18–24; TEMP 36.3–37.1; O2SAT 94–99
[2023-01-21] MEDS: LEVOTHYROXINE SODIUM 100 MCG TABLET PO (06:01)
[2023-01-21 06:05] LABS: Albumin Level 3.1 g/dL (3.5-5.1); Anion Gap 6 mmol/L (8-16); Blood Urea Nitrogen 56 mg/dL (7-17); Calcium 7.6 mg/dL (8.4-10.2); Carbon Dioxide 32 mmol/L (22-30); Chloride 101 mmol/L (98-107); Estimated CRCL calculation 12 ml/min; Estimated Glomerular Filt Rate 12; Glucose 70 mg/dL (65-110); Potassium 4.5 mmol/L (3.4-5.0); Sodium 139 mmol/L (137-145)
--- NOTE | 2023-01-21 09:10 | PM.IMPN ---
Progress Note: A&P Assessment and Plan (1) Symptomatic anemia: Code(s): D64.9 - Anemia, unspecified Status: Acute (2) End-stage renal disease on hemodialysis: Code(s): N18.6 - End stage renal disease; Z99.2 - Dependence on renal dialysis Status: Acute (3) Hypertension: Code(s): I10 - Essential (primary) hypertension Status: Chronic (4) Hypothyroidism: Code(s): E03.9 - Hypothyroidism, unspecified Status: Acute (5) Acute on chronic blood loss anemia: Code(s): D62 - Acute posthemorrhagic anemia Status: Acute Plan Symptomatic anemia Profound anemia associated with short of breath Patient has chronic anemia, likely secondary to acute renal failure but the patient needs repeated blood transfusion, possible acute on chronic blood-loss anemia she has had Hemoccult-positive stools previously, including today. Upper endoscopy in October [address] Guerra showed gastric and duodenal polyps without evidence of bleeding. 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 This is likely elevated in the setting of her renal disease and profound anemia. Essential hypertension her blood pressures were reviewed and they are stable. Acquired hypothyroidism continue levothyroxine. End-stage renal disease on dialysis nephrology consulted for dialysis. Dialysis yesterday, dyspnea is improving Subjective Date/time seen: 01/21/23 09:10 Interval history: I saw and examined patient today, patient underwent dialysis yesterday, patient feels shortness breath is improving, still has a cough. Repeated hemoglobin 6.7 Exam Narrative: General:?Hard of hearing. Chronically ill-appearing female. Weight: 90 kg. BMI: 29.3. HEENT:???PERRL, EOMI. Sclera anicteric. Changes of prior cataract surgery with lens implants. Tacky mucous membranes. Neck:??Supple. Some jugular venous distension. Respiratory:? Tachypnea, crackles bilateral lungs, prominent bilateral lower bases, improving Cardiovascular:??Regular rate and rhythm with S1-S2. Soft systolic murmur at the upper sternal border. Gastrointestinal:??Abdomen is soft, nontender, and nondistended with positive bowel sounds. Skin:??Warm and dry.? No rash or lesions on limited exam. Extremities:??No cyanosis or clubbing. 1+ bilateral lower extremity edema, left greater than right. Left upper extremity AV fistula with palpable thrill and bruit. Neurological:??Alert.? Cranial nerves 2-12 are grossly intact. No gross focal deficits to casual conversation. Psychiatric:??Cooperative with appropriate mood and affect. Objective Data Vital Signs Vital Signs: Vital Signs - 24 hr 01/20/23 10:00 01/20/23 12:00 01/20/23 12:00 Temperature 97.9 F Pulse Rate 73 72 71 Respiratory Rate 17 Blood Pressure 123/32 L Pulse Oximetry 90 Oxygen Delivery Oxygen Flow Rate Fraction of Inspired Oxygen 01/20/23 14:00 01/20/23 12:00 01/20/23 17:00 Temperature 98.0 F Pulse Rate 70 70 68 Respiratory Rate 17 16 Blood Pressure 126/42 L Pulse Oximetry 90 Oxygen Delivery Nasal Cannula Oxygen Flow Rate 3 Fraction of Inspired Oxygen 01/20/23 16:00 01/20/23 16:00 01/20/23 18:00 Temperature Pulse Rate 69 76 Respiratory Rate Blood Pressure Pulse Oximetry 97 Oxygen Delivery Venturi Mask Oxygen Flow Rate 15 Fraction of Inspired Oxygen 01/20
[2023-01-21] MEDS: FERROUS SULFATE 325 MG TABLET DR PO ×2 (09:25→18:04)
[2023-01-21] MEDS: lisinopriL 20 MG TABLET PO (09:25)
[2023-01-21] MEDS: PANTOPRAZOLE 40 MG TABLET PO (09:25)
[2023-01-21] MEDS: cloNIDine HCL 0.1 MG TABLET PO ×2 (09:26→13:24)
[2023-01-21] MEDS: busPIRone HCL 2.5 MG TABLET 7.5 MG PO ×2 (09:26→18:04)
[2023-01-21] MEDS: DOCUSATE SODIUM 100 MG CAPSULE PO (09:26)
[2023-01-21] MEDS: amLODIPine BESYLATE 5 MG TABLET 10 MG PO (09:26)
[2023-01-21] MEDS: SPIRONOLACTONE 25 MG TABLET PO (09:26)
[2023-01-21] MEDS: SEVELAMER CARBONATE 800 MG TABLET PO ×2 (09:26→18:04)
[2023-01-21 09:57] LABS: Basophils Percent Auto 0.9 % (0.2-1.2); Eosinophils Absolute Auto 0.2 K/mm3 (0-0.3); Eosinophils Percent Auto 3.9 % (0-4.4); Immature Granulocyte Absolute 0.09 K/mm3 (0.00-0.031); Immature Granulocyte Percent A 2.1 % (0-0.5); Lymphocytes Percent Auto 13.7 % (18.3-44.2); Mean Corpuscular HGB Conc 30.5 g/dl (32-36); Mean Corpuscular Volume 95.2 fl (80-100); Mean Platelet Volume 11.7 fl (7.4-10.4); Monocytes Absolute Auto 0.6 K/mm3 (0.1-0.6); Monocytes Percent Auto 13.7 % (2.6-8.5); Neutrophils Absolute Auto 2.9 K/mm3 (1.3-6.7); Neutrophils Percent Auto 65.7 % (45.5-73.1); Platelet Count Result 218 k/mm3 (150-375); Red Blood Count 2.31 M/mm3 (4.2-5.4); White Blood Count 4.4 K/mm3 (4.5-10.0)
[2023-01-21 10:03] LABS: Hemoglobin 6.7 g/dL (12.0-15.0)
--- NOTE | 2023-01-21 11:53 | PCSTNOTE ---
Order for modified barium swallow in place, patient unable to go to radiology at this time due to requiring personal care. Called Dr. Randall to inform him and he agreed that it can be done tomorrow.
[2023-01-21] MEDS: ACETAMINOPHEN 325 MG TABLET 650 MG PO (13:24)
[2023-01-21] MEDS: FUROSEMIDE INJ 100 MG/10 ML VIAL 80 MG IV PUSH (13:25)
[2023-01-21] MEDS: SODIUM CHLORIDE 0.9% IV 250 ML 30 ML IV CONT (13:26)
--- NOTE | 2023-01-21 13:56 | PM.PNNEP ---
Progress Note: A&P Assessment and Plan (1) End stage renal disease on dialysis: Code(s): N18.6 - End stage renal disease; Z99.2 - Dependence on renal dialysis Status: Acute Assessment and Plan: patient has end-stage renal disease. This is likely due to her diabetes and hypertension. Vascular disease may be playing a role as well. She gets dialysis 3 times a week. She had a good dialysis yesterday. We tried to take fluid off but her blood pressure went into the 80s and so we only got about 2L off. She does have fluid overload by chest x-ray and also has a little bit of swelling. However it is difficult to get her fluid off. Will stop her clonidine and give her p.r.n. midodrine if the blood pressure is low again tomorrow. Her potassium is okay. She is going to get a unit of blood today. The blood already started. We can not dialyze her today however because there is an emergency elsewhere in the hospital. I talked with the nurse at length. She will start with a half a unit of the blood. If she looks great then she can have the other half otherwise she will stop that. (2) Shortness of breath: Code(s): R06.02 - Shortness of breath Status: Acute Assessment and Plan: The patient has shortness of breath . This may be multifactorial. This could be related to volume, anemia, or even reversible airways disease. (3) Symptomatic anemia: Code(s): D64.9 - Anemia, unspecified Status: Acute Assessment and Plan: The patient has anemia. She had a liquid stool. Stool guaiac is positive. She is on pantoprazole. Consider GI consult? (4) Pulmonary edema: Code(s): J81.1 - Chronic pulmonary edema Status: Acute Assessment and Plan: this is probably because she missed dialysis. It was difficult to remove fluid yesterday. Will stop the clonidine and see if that helps with her blood pressure. Will leave the clonidine as a p.r.n. measure. (5) Type 2 diabetes mellitus: Code(s): E11.9 - Type 2 diabetes mellitus without complications Status: Chronic Assessment and Plan: On Accu-Cheks and sliding-scale insulin. Hospitalists some to manage this. (6) HTN (hypertension): Qualifiers: Hypertension type: primary hypertension Qualified Code(s): I10 - Essential (primary) hypertension Code(s): I10 - Essential (primary) hypertension Status: Chronic Assessment and Plan: Systolic running in the 120s and 130s for the most part. (7) Renal osteodystrophy: Code(s): N25.0 - Renal osteodystrophy Status: Acute Assessment and Plan: Phosphorus level okay. (8) Abdominal pain: Code(s): R10.9 - Unspecified abdominal pain Status: Acute Assessment and Plan: CT abdomen did not show anything. This did not show fluid overload is much is atelectasis or possible pneumonia Stools are guaiac positive. Consider GI consult. Subjective Date/time seen: 01/21/23 13:56 Interval history: The patient is feeling about the same. She still has belly discomfort. She is a little short of breath. She is on 2L of oxygen. Review of Systems Cardiovascular: Cardiovascular: Reports no additional cardiovascular complaints Respiratory: Respiratory: Reports no additional respiratory complaints Gastrointestinal: Gastrointestinal: Reports no additional gastrointestinal complaints Genitourinary: Genitourinary: Reports no additional female genitourinary complaints Exam Narrative: WDWN in NAD skin no rash head ncat lungs mildly coarse with decreased breath sounds at the bases. cor reg no rub or gallop abd BS+ nontender and soft ext trace edema. Objective Data Vital Signs Vital Signs: Vital Signs - 24 hr 01/20/23 14:00 01/20/23 17:00 01/20/23 16:00 Temperature 98.0 F Pulse Rate 70 68 Respiratory Rate 16 Blood Pressure 126/42 L Pulse Oxim
[2023-01-21] MEDS: ATORVASTATIN 20 MG TABLET PO (20:40)
[2023-01-21] MEDS: LATANOPROST 0.005% OP SOLN 2.5 ML BTL 1 DROP EACH EYE (20:40)
[2023-01-22] VITALS (27 sets, daily range): BP systolic 106–158; BP diastolic 31–64; PULSE 64–88; RESP 18–22; TEMP 36.2–37; O2SAT 92–98
[2023-01-22] MEDS: LEVOTHYROXINE SODIUM 100 MCG TABLET PO (06:26)
[2023-01-22 06:32] LABS: Albumin Level 2.9 g/dL (3.5-5.1); Anion Gap 5 mmol/L (8-16); Blood Urea Nitrogen 73 mg/dL (7-17); Calcium 7.5 mg/dL (8.4-10.2); Carbon Dioxide 28 mmol/L (22-30); Chloride 98 mmol/L (98-107); Estimated CRCL calculation 9 ml/min; Estimated Glomerular Filt Rate 8; Glucose 75 mg/dL (65-110); Phosphorus 6.8 mg/dL (2.5-4.5); Potassium 4.5 mmol/L (3.4-5.0); Sodium 131 mmol/L (137-145)
[2023-01-22 07:20] LABS: Hematocrit 24.5 % (37.0-47.0); Hemoglobin 7.6 g/dL (12.0-15.0); Mean Corpuscular Hemoglobin 29.7 pg (26-34); Mean Corpuscular Volume 95.7 fl (80-100); Mean Platelet Volume 11.6 fl (7.4-10.4); Platelet Count Result 209 k/mm3 (150-375); Red Blood Count 2.56 M/mm3 (4.2-5.4); Red Cell Distribution Width 16.7 % (11.5-14.5); White Blood Count 4.9 K/mm3 (4.5-10.0)
--- NOTE | 2023-01-22 09:48 | P.PNNP_ITS ---
Progress Note: A&P Assessment and Plan (1) End stage renal disease: Code(s): N18.6 - End stage renal disease Status: Chronic Assessment and Plan: * HD today * continue M/W/F dialysis schedule while hospitalized * follow electrolytes, volume status, and clearance (2) Acute on chronic respiratory failure with hypoxia: Code(s): J96.21 - Acute and chronic respiratory failure with hypoxia Status: Acute Assessment and Plan: * multifactorial etiology: * known hx of COPD * volume overload * pneumonia(?) * pulmonary HTN * significant anemia * on supplemental oxygen at baseline * fluid removal with dialysis as tolerated * PRBC transfusion per protocol * need antibiotics for pneumonia(?) * follow respiratory status (3) Anemia: Code(s): D64.9 - Anemia, unspecified Status: Chronic Assessment and Plan: * chronic issue/problem * partly related to ESRD but acute blood loss a concern (guaiac + stools) * Epogen with HD * PRBC transfusion per protocol * GI consult (?) * follow trend H/H (4) Hypertension: Code(s): I10 - Essential (primary) hypertension Status: Chronic Assessment and Plan: * reasonable control * continue home medications - clonidine changed to PRN * follow trend of hemodynamics (5) Diabetes: Code(s): E11.9 - Type 2 diabetes mellitus without complications Status: Chronic Assessment and Plan: * follow accuchecks * glycemic control per hospitalists Will continue to follow. Subjective Date/time seen: 01/22/23 09:48 Interval history: Follow-up for end stage renal disease on hemodialysis. Tolerating hemodialysis treatment at the time of my visit (seen on HD at 9:35AM); complaining the she is thirsty and wants to sit up on the side of the bed; H/H better following PRBC transfusions. Exam Narrative: General: elderly and chronically ill-appearing female in NAD Heart: normal S1 and S2; no rub Lungs: coarse breath sounds with bibasilar crackles Abdomen: soft, nondistended, positive bowel sounds Extremities: no cyanosis or clubbing; 1+ edema Skin: warm and dry Objective Data Vital Signs Vital Signs: Vital Signs Temp Pulse Resp BP Pulse Ox O2 Del Method O2 Flow Rate 01/22/23 08:50 2 01/22/23 08:00 97.7 F 65 20 149/35 H 97 01/22/23 08:00 67 01/22/23 08:00 98 Nasal Cannula 2 01/22/23 06:00 67 01/22/23 04:00 98 Nasal Cannula 2 01/22/23 04:00 65 01/22/23 04:00 97.8 F 64 18 125/40 L 96 01/22/23 02:00 74 01/21/23 22:00 65 01/22/23 00:00 97 Nasal Cannula 2 01/22/23 00:00 64 01/21/23 23:49 97.6 F 60 20 142/40 H 96 01/21/23 20:00 98 Nasal Cannula 2 01/21/23 20:00 62 01/21/23 20:00 97.5 F L 62 18 132/40 L 98 01/21/23 18:00 66 01/21/23 16:00 61 01/21/23 16:00 99 Nasal Cannula 2 01/21/23 17:04 97.9 F 61 20 122/34 L 99 01/21/23 17:03 98.0 F 66 18 139/34 L 97 01/21/23 15:53 97.4 F L 61 18 132/34 L 99 01/21/23 14:53 98.5 F 64 18 123/29 L 98 01/21/23 14:00 68 01/21/23 12:00 68
--- NOTE | 2023-01-22 09:48 | PM.PNNEP ---
Progress Note: A&P Assessment and Plan (1) End stage renal disease: Code(s): N18.6 - End stage renal disease Status: Chronic Assessment and Plan: HD today continue M/W/F dialysis schedule while hospitalized follow electrolytes, volume status, and clearance (2) Acute on chronic respiratory failure with hypoxia: Code(s): J96.21 - Acute and chronic respiratory failure with hypoxia Status: Acute Assessment and Plan: multifactorial etiology: known hx of COPD volume overload pneumonia(?) pulmonary HTN significant anemia on supplemental oxygen at baseline fluid removal with dialysis as tolerated PRBC transfusion per protocol need antibiotics for pneumonia(?) follow respiratory status (3) Anemia: Code(s): D64.9 - Anemia, unspecified Status: Chronic Assessment and Plan: chronic issue/problem partly related to ESRD but acute blood loss a concern (guaiac + stools) Epogen with HD PRBC transfusion per protocol GI consult (?) follow trend H/H (4) Hypertension: Code(s): I10 - Essential (primary) hypertension Status: Chronic Assessment and Plan: reasonable control continue home medications - clonidine changed to PRN follow trend of hemodynamics (5) Diabetes: Code(s): E11.9 - Type 2 diabetes mellitus without complications Status: Chronic Assessment and Plan: follow accuchecks glycemic control per hospitalists Will continue to follow. Subjective Date/time seen: 01/22/23 09:48 Interval history: Follow-up for end stage renal disease on hemodialysis. Tolerating hemodialysis treatment at the time of my visit (seen on HD at 9:35AM); complaining the she is thirsty and wants to sit up on the side of the bed; H/H better following PRBC transfusions. Exam Narrative: General: elderly and chronically ill-appearing female in NAD Heart: normal S1 and S2; no rub Lungs: coarse breath sounds with bibasilar crackles Abdomen: soft, nondistended, positive bowel sounds Extremities: no cyanosis or clubbing; 1+ edema Skin: warm and dry Objective Data Vital Signs Vital Signs: Vital Signs Temp Pulse Resp BP Pulse Ox O2 Del Method O2 Flow Rate 01/22/23 08:50 2 01/22/23 08:00 97.7 F 65 20 149/35 H 97 01/22/23 08:00 67 01/22/23 08:00 98 Nasal Cannula 2 01/22/23 06:00 67 01/22/23 04:00 98 Nasal Cannula 2 01/22/23 04:00 65 01/22/23 04:00 97.8 F 64 18 125/40 L 96 01/22/23 02:00 74 01/21/23 22:00 65 01/22/23 00:00 97 Nasal Cannula 2 01/22/23 00:00 64 01/21/23 23:49 97.6 F 60 20 142/40 H 96 01/21/23 20:00 98 Nasal Cannula 2 01/21/23 20:00 62 01/21/23 20:00 97.5 F L 62 18 132/40 L 98 01/21/23 18:00 66 01/21/23 16:00 61 01/21/23 16:00 99 Nasal Cannula 2 01/21/23 17:04 97.9 F 61 20 122/34 L 99 01/21/23 17:03 98.0 F 66 18 139/34 L 97 01/21/23 15:53 97.4 F L 61 18 132/34 L 99 01/21/23 14:53 98.5 F 64 18 123/29 L 98 01/21/23 14:00 68 01/21/23 12:00 68 01/21/23 13:53 97.7 F 66 20 123/28 L 98 01/21/23 12:00 96 Nasal Cannula 2 01/21/23 13:35 98.7 F 67 24 H 121/37 L 96 01/21/23 12:46 98.7 F 67 24 H 121/37 L 96 Intake/Output Intake/Output: Intake & Output 01/19/23 01/20/23 01/21/23 01/22/23 23:59 23:59 23:59 23:59 Intake Total 872 303 7621 100 Output Total 2000 Balance 350 -1040 1700 100 Meds/Results Medications: Active Medications Generic Name Dose Route Start Last Admin Trade Name Terrell PRN Reason Stop Dose Admin Acetaminophen 650 mg 01/19/23 20:33 01/21/23 13:24 Acetaminophen 325 Mg Tablet PO 650 mg Q6H PRN Administration Pain (Scale Score 1-3) Albuterol 2.5 mg 01/22/23 10:19 01/22/23 10:36 Albuterol Sulfate Neb 2.5 Mg/
[2023-01-22] MEDS: ALBUTEROL SULFATE NEB 2.5 MG/3 ML INH INHALATION (10:36)
[2023-01-22] MEDS: EPOETIN ALFA 20,000 UNITS/ML VIAL 20000 UNITS IV PUSH (11:04)
--- NOTE | 2023-01-22 14:38 | PM.IMPN ---
Progress Note: A&P Assessment and Plan (1) Symptomatic anemia: Code(s): D64.9 - Anemia, unspecified Status: Acute (2) End-stage renal disease on hemodialysis: Code(s): N18.6 - End stage renal disease; Z99.2 - Dependence on renal dialysis Status: Acute (3) Hypertension: Code(s): I10 - Essential (primary) hypertension Status: Chronic (4) Hypothyroidism: Code(s): E03.9 - Hypothyroidism, unspecified Status: Acute (5) Acute on chronic blood loss anemia: Code(s): D62 - Acute posthemorrhagic anemia Status: Acute Plan Symptomatic anemia Profound anemia associated with short of breath Patient has chronic anemia, likely secondary to acute renal failure but the patient needs repeated blood transfusion, possible acute on chronic blood-loss anemia she has had Hemoccult-positive stools previously, including today. Upper endoscopy in October [address] Guerra showed gastric and duodenal polyps without evidence of bleeding. 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 This is likely elevated in the setting of her renal disease and profound anemia. Essential hypertension her blood pressures were reviewed and they are stable. Acquired hypothyroidism continue levothyroxine. End-stage renal disease on dialysis nephrology consulted for dialysis. Dialysis yesterday, dyspnea is improving Subjective Date/time seen: 01/22/23 14:38 Interval history: I saw on exam patient today, patient hemodialysis, has some shortness breath, patient denies chest pain, abdomen pain Exam Narrative: General:?Hard of hearing. Chronically ill-appearing female. Weight: 90 kg. BMI: 29.3. HEENT:???PERRL, EOMI. Sclera anicteric. Changes of prior cataract surgery with lens implants. Tacky mucous membranes. Neck:??Supple. Some jugular venous distension. Respiratory:? Tachypnea, crackles bilateral lungs, reduced significantly. Cardiovascular:??Regular rate and rhythm with S1-S2. Soft systolic murmur at the upper sternal border. Gastrointestinal:??Abdomen is soft, nontender, and nondistended with positive bowel sounds. Skin:??Warm and dry.? No rash or lesions on limited exam. Extremities:??No cyanosis or clubbing. 1+ bilateral lower extremity edema, left greater than right. Left upper extremity AV fistula with palpable thrill and bruit. Neurological:??Alert.? Cranial nerves 2-12 are grossly intact. No gross focal deficits to casual conversation. Psychiatric:??Cooperative with appropriate mood and affect. Objective Data Vital Signs Vital Signs: Vital Signs - 24 hr 01/21/23 14:53 01/21/23 15:53 01/21/23 17:03 Temperature 98.5 F 97.4 F L 98.0 F Pulse Rate 64 61 66 Respiratory Rate 18 18 18 Blood Pressure 123/29 L 132/34 L 139/34 L Pulse Oximetry 98 99 97 Oxygen Delivery Oxygen Flow Rate 01/21/23 17:04 01/21/23 16:00 01/21/23 16:00 Temperature 97.9 F Pulse Rate 61 61 Respiratory Rate 20 Blood Pressure 122/34 L Pulse Oximetry 99 99 Oxygen Delivery Nasal Cannula Oxygen Flow Rate 2 01/21/23 18:00 01/21/23 20:00 01/21/23 20:00 Temperature 97.5 F L Pulse Rate 66 62 62 Respiratory Rate 18 Blood Pressure 132/40 L Pulse Oximetry 98 Oxygen Delivery Oxygen Flow Rate 01/21/23 20:00 01/21/23 23:49 01/22/23 00:00 Temperature 97.6 F Pulse Rate 60 64 Resp
[2023-01-22] MEDS: busPIRone HCL 2.5 MG TABLET 7.5 MG PO ×2 (14:52→17:54)
[2023-01-22] MEDS: FERROUS SULFATE 325 MG TABLET DR PO ×2 (14:54→17:54)
[2023-01-22] MEDS: amLODIPine BESYLATE 5 MG TABLET 10 MG PO (14:55)
[2023-01-22] MEDS: PANTOPRAZOLE 40 MG TABLET PO (14:56)
[2023-01-22] MEDS: DOCUSATE SODIUM 100 MG CAPSULE PO ×2 (14:56→20:50)
[2023-01-22] MEDS: SPIRONOLACTONE 25 MG TABLET PO (14:57)
[2023-01-22] MEDS: SEVELAMER CARBONATE 800 MG TABLET PO ×3 (14:57→19:24)
--- NOTE | 2023-01-22 16:05 | WPDGICN ---
Assessment and Plan Assessment and plan (1) Acute on chronic anemia: Code(s): D64.9 - Anemia, unspecified Status: Acute Assessment and Plan: she has been anemic for quite a while. On to the last 3 times that she was tested she was Hemoccult negative. It seems that sometimes her this anemia develops acutely after she has had dialysis. (2) Anemia in ESRD (end-stage renal disease): Code(s): N18.6 - End stage renal disease; D63.1 - Anemia in chronic kidney disease Status: Acute Assessment and Plan: Her hemoglobin was as high as 9.2 earlier this year. He was 6.5 when last checked on December 01. Now on admission is 5.3 and then 7.6 today following transfusion with 2 units of blood. She has had elevated MCV which would be unusual if her anemia was due to chronic gastrointestinal blood loss. She in fact had an elevated ferritin of 377 last time it was checked. (3) Chronic obstructive pulmonary disease: Code(s): J44.9 - Chronic obstructive pulmonary disease, unspecified Status: Acute (4) Heme positive stool: Code(s): R19.5 - Other fecal abnormalities Status: Acute Assessment and Plan: Stools Hemoccult positive this time but last time he was checked was negative. Plan After review of her chart and discussion with other gastroenterologists involved with her care, we do not feel that there is any point for further gastrointestinal investigation at this time. There is no evidence that she is losing blood through her gastrointestinal tract and multiple endoscopic procedures have not found a source of bleeding. She has never had an overt bleed but sometimes does drop her counts following dialysis suggesting that may be a factor. GI Consult Note Consult date/time: 01/22/23 16:05 HPI: Sofía Contreras is a 87 year old female Who was admitted at this time again with severe anemia. She has had numerous hospitalizations and numerous investigations for this. Her stools are Hemoccult positive today. There were negative however which was hospitalized last year and again this November when she was hospitalized with severe anemia. She had an EGD performed by Dr. Guerra a couple of months ago and he found gastric polyps and duodenal polyps but no sign of bleeding. He had also noted that there was a resolution clip in the body of the stomach. She had apparently had been admitted to another hospital a month or so prior to that and had endoscopy at that time. She was readmitted in November again with anemia and seen again by Dr. Guerra. no further investigations were performed. She cannot give any history of bleeding. She is hard of hearing but she tells me that her stools have not been bloody and have not been black her only complaint is that she has lower abdominal discomfort. She did have a colonoscopy about 2 years ago which was unremarkable. She does have end-stage renal disease and is on dialysis 3 times a week. She also has congestive heart failure. Review of Systems Review of Systems: All systems reviewed & are unremarkable except as noted in HPI and below PMFSH Past Medical History Medical History Chronic anemia Chronic obstructive pulmonary disease Chronic respiratory failure with hypoxia On 2 to 3 liters nasal cannula. COVID-19 (06/2021) Diastolic dysfunction End-stage renal disease on hemodialysis Erythropoietin deficiency anemia Gastroesophageal reflux disease Glaucoma Hyperlipidemia Hypertension Hypothyroidism Osteoarthritis Pulmonary hypertension Renal osteodystrophy Type 2 diabetes mellitus Diet-controlled. Vitamin D deficiency Surgical History Surgical History Status post creation of arteriovenous fistula Left upper extremity. Family History Family History Other Diabetes mellitus
--- NOTE | 2023-01-22 16:22 | PCSTNOTE ---
Please refer to the Modified Barium Swallow Evaluation in the EMR.
[2023-01-22] MEDS: ERGOCALCIFEROL 50,000 UNITS CAPSULE 50000 UNITS PO (19:24)
[2023-01-22] MEDS: ATORVASTATIN 20 MG TABLET PO (20:50)
[2023-01-22] MEDS: LATANOPROST 0.005% OP SOLN 2.5 ML BTL 1 DROP EACH EYE (20:50)
[2023-01-23] VITALS (15 sets, daily range): BP systolic 129–159; BP diastolic 37–60; PULSE 63–80; RESP 18–20; TEMP 36.2–36.7; O2SAT 86–99
[2023-01-23] MEDS: LEVOTHYROXINE SODIUM 100 MCG TABLET PO (05:58)
[2023-01-23] MEDS: busPIRone HCL 2.5 MG TABLET 7.5 MG PO ×2 (10:14→17:58)
[2023-01-23] MEDS: lisinopriL 20 MG TABLET PO (10:14)
[2023-01-23] MEDS: FERROUS SULFATE 325 MG TABLET DR PO ×2 (10:14→17:58)
[2023-01-23] MEDS: SPIRONOLACTONE 25 MG TABLET PO (10:14)
[2023-01-23] MEDS: SEVELAMER CARBONATE 800 MG TABLET PO ×3 (10:14→17:58)
[2023-01-23] MEDS: amLODIPine BESYLATE 5 MG TABLET 10 MG PO (10:15)
[2023-01-23] MEDS: DOCUSATE SODIUM 100 MG CAPSULE PO ×2 (10:15→20:30)
[2023-01-23] MEDS: PANTOPRAZOLE 40 MG TABLET PO (10:15)
--- NOTE | 2023-01-23 10:20 | P.PNNP_ITS ---
Progress Note: A&P Assessment and Plan (1) End stage renal disease: Code(s): N18.6 - End stage renal disease Status: Chronic Assessment and Plan: * HD tomorrow * continue M/W/F dialysis schedule while hospitalized * follow electrolytes, volume status, and clearance (2) Acute on chronic respiratory failure with hypoxia: Code(s): J96.21 - Acute and chronic respiratory failure with hypoxia Status: Acute Assessment and Plan: * multifactorial etiology: * known hx of COPD * volume overload * pneumonia(?) * pulmonary HTN * significant anemia * on supplemental oxygen at baseline * fluid removal with dialysis as tolerated * PRBC transfusion per protocol * need antibiotics for pneumonia(?) * follow respiratory status (3) Anemia: Code(s): D64.9 - Anemia, unspecified Status: Chronic Assessment and Plan: * chronic issue/problem * partly related to ESRD but acute blood loss a concern (guaiac + stools) * Epogen with HD * PRBC transfusion per protocol * GI recommendations noted -- no further endoscopy procedures planned * follow trend H/H (4) Hypertension: Code(s): I10 - Essential (primary) hypertension Status: Chronic Assessment and Plan: * reasonable control * continue home medications - clonidine changed to PRN * follow trend of hemodynamics (5) Diabetes: Code(s): E11.9 - Type 2 diabetes mellitus without complications Status: Chronic Assessment and Plan: * follow accuchecks * glycemic control per hospitalists Will continue to follow. Subjective Date/time seen: 01/23/23 10:20 Interval history: Follow-up for end stage renal disease on hemodialysis. Tolerated dialysis treatment yesterday without any issues or problems; H/H still low but better following PRBC transfusions; no apparent distress noted at the time other than some shortness of breath. Exam Narrative: General: elderly and chronically ill-appearing female in NAD Heart: normal S1 and S2; no rub Lungs: coarse breath sounds with bibasilar crackles Abdomen: soft, nondistended, positive bowel sounds Extremities: no cyanosis or clubbing; 1+ edema Skin: warm and intact Objective Data Vital Signs Vital Signs: Vital Signs Temp Pulse Resp BP Pulse Ox O2 Del Method O2 Flow Rate 01/23/23 08:00 97.2 F L 78 20 141/46 H 97 01/23/23 06:00 76 01/23/23 04:00 77 01/23/23 04:00 97.8 F 78 20 150/60 H 96 01/23/23 03:00 86 L Nasal Cannula 2 01/23/23 04:30 97 Nasal Cannula 3 01/23/23 02:00 78 01/22/23 21:00 95 Nasal Cannula 2 01/23/23 00:00 94 Nasal Cannula 2 01/23/23 00:00 72 01/22/23 23:28 97.8 F 73 20 147/40 H 96 01/22/23 22:00 73 01/22/23 20:00 73 01/22/23 20:00 94 Nasal Cannula 2 01/22/23 20:00 97.8 F 75 20 136/64 93 01/22/23 16:00 92 Nasal Cannula 2 01/22/23 18:00 75 01/22/23 16:00 75 01/22/23 14:00 80 01/22/23 16:00 97.2 F L 74 22 H 151/41 H 93 01/22/23 12:45 97.4 F L 74 22 H 113/38 L 96 Intake/Output Intake/Output: Intake & Output
--- NOTE | 2023-01-23 10:20 | PM.PNNEP ---
Progress Note: A&P Assessment and Plan (1) End stage renal disease: Code(s): N18.6 - End stage renal disease Status: Chronic Assessment and Plan: HD tomorrow continue M/W/F dialysis schedule while hospitalized follow electrolytes, volume status, and clearance (2) Acute on chronic respiratory failure with hypoxia: Code(s): J96.21 - Acute and chronic respiratory failure with hypoxia Status: Acute Assessment and Plan: multifactorial etiology: known hx of COPD volume overload pneumonia(?) pulmonary HTN significant anemia on supplemental oxygen at baseline fluid removal with dialysis as tolerated PRBC transfusion per protocol need antibiotics for pneumonia(?) follow respiratory status (3) Anemia: Code(s): D64.9 - Anemia, unspecified Status: Chronic Assessment and Plan: chronic issue/problem partly related to ESRD but acute blood loss a concern (guaiac + stools) Epogen with HD PRBC transfusion per protocol GI recommendations noted -- no further endoscopy procedures planned follow trend H/H (4) Hypertension: Code(s): I10 - Essential (primary) hypertension Status: Chronic Assessment and Plan: reasonable control continue home medications - clonidine changed to PRN follow trend of hemodynamics (5) Diabetes: Code(s): E11.9 - Type 2 diabetes mellitus without complications Status: Chronic Assessment and Plan: follow accuchecks glycemic control per hospitalists Will continue to follow. Subjective Date/time seen: 01/23/23 10:20 Interval history: Follow-up for end stage renal disease on hemodialysis. Tolerated dialysis treatment yesterday without any issues or problems; H/H still low but better following PRBC transfusions; no apparent distress noted at the time other than some shortness of breath. Exam Narrative: General: elderly and chronically ill-appearing female in NAD Heart: normal S1 and S2; no rub Lungs: coarse breath sounds with bibasilar crackles Abdomen: soft, nondistended, positive bowel sounds Extremities: no cyanosis or clubbing; 1+ edema Skin: warm and intact Objective Data Vital Signs Vital Signs: Vital Signs Temp Pulse Resp BP Pulse Ox O2 Del Method O2 Flow Rate 01/23/23 08:00 97.2 F L 78 20 141/46 H 97 01/23/23 06:00 76 01/23/23 04:00 77 01/23/23 04:00 97.8 F 78 20 150/60 H 96 01/23/23 03:00 86 L Nasal Cannula 2 01/23/23 04:30 97 Nasal Cannula 3 01/23/23 02:00 78 01/22/23 21:00 95 Nasal Cannula 2 01/23/23 00:00 94 Nasal Cannula 2 01/23/23 00:00 72 01/22/23 23:28 97.8 F 73 20 147/40 H 96 01/22/23 22:00 73 01/22/23 20:00 73 01/22/23 20:00 94 Nasal Cannula 2 01/22/23 20:00 97.8 F 75 20 136/64 93 01/22/23 16:00 92 Nasal Cannula 2 01/22/23 18:00 75 01/22/23 16:00 75 01/22/23 14:00 80 01/22/23 16:00 97.2 F L 74 22 H 151/41 H 93 01/22/23 12:45 97.4 F L 74 22 H 113/38 L 96 Intake/Output Intake/Output: Intake & Output 01/20/23 01/21/23 01/22/23 01/23/23 23:59 23:59 23:59 23:59 Intake Total 960 1700 1020 340 Output Total 2000 3000 Balance -1040 1700 -1980 340 Meds/Results Medications: Active Medications Generic Name Dose Route Start Last Admin Trade Name Freq PRN Reason Stop Dose Admin Acetaminophen 650 mg 01/19/23 20:33 01/21/23 13:24 Acetaminophen 325 Mg Tablet PO 650 mg Q6H PRN Administration Pain (Scale Score 1-3) Albuterol 2.5 mg 01/22/23 10:19 01/22/23 10:36 Albuterol Sulfate Neb 2.5 Mg/3 Ml Inh INHALATION 2.5 mg Q4HRT PRN Administration Shortness Of Breath Amlodipine Besylate 10 mg 01/20/23 09:00 01/23/23 10:15 Amlodipine Besylate 5 Mg Tablet PO 10 mg QAM LAUREN Administration Atorvastatin Calcium 20 mg 01/19
--- NOTE | 2023-01-23 15:20 | PM.IMPN ---
Progress Note: A&P Assessment and Plan (1) Symptomatic anemia: Code(s): D64.9 - Anemia, unspecified Status: Acute (2) End-stage renal disease on hemodialysis: Code(s): N18.6 - End stage renal disease; Z99.2 - Dependence on renal dialysis Status: Acute (3) Hypertension: Code(s): I10 - Essential (primary) hypertension Status: Chronic (4) Hypothyroidism: Code(s): E03.9 - Hypothyroidism, unspecified Status: Acute (5) Acute on chronic blood loss anemia: Code(s): D62 - Acute posthemorrhagic anemia Status: Acute Plan Symptomatic anemia Profound anemia associated with short of breath Patient has chronic anemia, likely secondary to acute renal failure but the patient needs repeated blood transfusion, possible acute on chronic blood-loss anemia she has had Hemoccult-positive stools previously, including today. Upper endoscopy in October [address] Guerra showed gastric and duodenal polyps without evidence of bleeding. GI consult because hemoglobin continues to drop repeat cbc , transfuse venofer x3 hb less than 7.5 fecal impaction per ED physician, no stool was appreciated in the rectal vault Start MiraLax, and enema Acute on chronic heart failure fluid overload, October 26 echocardiogram reveals normal EF CT 65 to 70% Pulmonary congestion on chest x-ray Consult collision repairer for dialysis Patient is on dialysis today Acute respiratory failure Hypoxemia, pulse ox 90% on 3 L oxygen, likely secondary to fluid overload and acute on chronic heart failure Emergent dialysis Continue O2 therapy Troponin is mildly elevated not having any chest pain EKG shows no acute changes. This is likely elevated in the setting of her renal disease and profound anemia. Essential hypertension her blood pressures were reviewed and they are stable. Acquired hypothyroidism continue levothyroxine. End-stage renal disease on dialysis nephrology consulted for dialysis. Dialysis in hospital Subjective Date/time seen: 01/23/23 15:20 Interval history: I saw on exam patient today, patient hemodialysis, has some shortness breath, patient denies chest pain, abdomen pain, pt labs still change low hb, pt seen by nephrology today Review of Systems Review of Systems: no specfic compliants Exam Narrative: General:?Hard of hearing. Chronically ill-appearing female. Weight: 90 kg. BMI: 29.3. HEENT:???PERRL, EOMI. Sclera anicteric. Changes of prior cataract surgery with lens implants. Tacky mucous membranes. Neck:??Supple. Some jugular venous distension. Respiratory:? Tachypnea, crackles bilateral lungs, reduced significantly. Cardiovascular:??Regular rate and rhythm with S1-S2. Soft systolic murmur at the upper sternal border. Gastrointestinal:??Abdomen is soft, nontender, and nondistended with positive bowel sounds. Skin:??Warm and dry.? No rash or lesions on limited exam. Extremities:??No cyanosis or clubbing. 1+ bilateral lower extremity edema, left greater than right. Left upper extremity AV fistula with palpable thrill and bruit. Neurological:??Alert.? Cranial nerves 2-12 are grossly intact. No gross focal deficits to casual conversation. Psychiatric:??Cooperative with appropriate mood and affect. Objective Data Vital Signs Vital Signs: Vital Signs - 24 hr 01/22/23 16:00 01/22/23 16:00 01/22/23 18:00 Temperature 36.2 C L Pulse Rate 74 75 75 Respiratory Rate 22 H Blood Pressure 151/41 H Pulse Oximetry 93 Oxygen Delivery Oxygen Flow Rate Fraction of Inspired Oxygen 01/22/23 16:00 01/22/23 20:00 01/22/23 20:00 Temperature 36.6 C Pulse Rate 75 Respiratory Rate 20 Blood Pressure 136/64 Pulse Oximetry 92 93 94 Oxygen Delivery Nasal Cannula Nasal Cannula Oxygen Flow Rate 2 2 Fraction of Inspired Oxygen 28 01/22/23 20:00 01/22/23 22:00 01/22/23 23:28 Temperature 36.6 C Pulse Rate 73 73 73 Respiratory Rate 20 Blood Pre
[2023-01-23] MEDS: ATORVASTATIN 20 MG TABLET PO (20:31)
[2023-01-23] MEDS: LATANOPROST 0.005% OP SOLN 2.5 ML BTL 1 DROP EACH EYE (20:44)
[2023-01-24] VITALS (20 sets, daily range): BP systolic 110–169; BP diastolic 36–71; PULSE 62–128; RESP 14–24; TEMP 36–37.1; O2SAT 92–100
[2023-01-24] MEDS: LEVOTHYROXINE SODIUM 100 MCG TABLET PO (06:28)
[2023-01-24 07:09] LABS: Hematocrit 28.1 % (37.0-47.0); Hemoglobin 8.6 g/dL (12.0-15.0); Mean Corpuscular HGB Conc 30.6 g/dl (32-36); Mean Corpuscular Volume 94.6 fl (80-100); Mean Platelet Volume 10.4 fl (7.4-10.4); Platelet Count Result 254 k/mm3 (150-375); Red Blood Count 2.97 M/mm3 (4.2-5.4); Red Cell Distribution Width 15.6 % (11.5-14.5)
[2023-01-24] MEDS: SODIUM CHLORIDE 0.9% IV 1,000 ML 999 ML IV CONT (07:10)
[2023-01-24 07:20] LABS: Anion Gap 6 mmol/L (8-16); Blood Urea Nitrogen 44 mg/dL (7-17); Calcium 8.2 mg/dL (8.4-10.2); Carbon Dioxide 33 mmol/L (22-30); Chloride 97 mmol/L (98-107); Estimated CRCL calculation 8 ml/min; Estimated Glomerular Filt Rate 7; Glucose 84 mg/dL (65-110); Potassium 4.4 mmol/L (3.4-5.0); Sodium 136 mmol/L (137-145)
[2023-01-24] MEDS: EPOETIN ALFA 20,000 UNITS/ML VIAL 20000 UNITS IV PUSH (10:42)
[2023-01-24] MEDS: ALBUTEROL SULFATE NEB 2.5 MG/3 ML INH INHALATION (11:08)
--- NOTE | 2023-01-24 11:13 | PM.PNNEP ---
Progress Note: A&P Assessment and Plan (1) End stage renal disease: Code(s): N18.6 - End stage renal disease Status: Chronic Assessment and Plan: HD today continue M/W/F dialysis schedule while hospitalized follow electrolytes, volume status, and clearance (2) Acute on chronic respiratory failure with hypoxia: Code(s): J96.21 - Acute and chronic respiratory failure with hypoxia Status: Acute Assessment and Plan: multifactorial etiology: known hx of COPD volume overload pneumonia(?) pulmonary HTN significant anemia on supplemental oxygen at baseline fluid removal with dialysis as tolerated PRBC transfusion per protocol need antibiotics for pneumonia(?) follow respiratory status (3) Anemia: Code(s): D64.9 - Anemia, unspecified Status: Chronic Assessment and Plan: chronic issue/problem partly related to ESRD but acute blood loss a concern (guaiac + stools) Epogen with HD PRBC transfusion per protocol GI recommendations noted -- no further endoscopy procedures planned follow trend H/H (4) Hypertension: Code(s): I10 - Essential (primary) hypertension Status: Chronic Assessment and Plan: reasonable control continue home medications - clonidine changed to PRN follow trend of hemodynamics (5) Diabetes: Code(s): E11.9 - Type 2 diabetes mellitus without complications Status: Chronic Assessment and Plan: follow accuchecks glycemic control per hospitalists Will continue to follow. Subjective Date/time seen: 01/24/23 11:13 Interval history: Follow-up for end stage renal disease on hemodialysis. Tolerating dialysis treatment at time of my visit (seen at 11:00AM) but extremely restless and continuing to complaint of shortness of breath (despite adequate oxygen saturations); supplemental oxygen and breathing treatments did not help and then started screaming for help and not being cooperative with HD treatment so treatment ended early. Exam Narrative: General: elderly and chronically ill-appearing female; quite restless/anxious Heart: normal S1 and S2; no rub Lungs: coarse breath sounds with bibasilar crackles Abdomen: soft, nondistended, positive bowel sounds Extremities: no cyanosis or clubbing; 1+ edema Skin: no rash Objective Data Vital Signs Vital Signs: Vital Signs Temp Pulse Resp BP Pulse Ox O2 Del Method O2 Flow Rate 01/24/23 11:10 97.6 F 69 18 126/49 L 100 01/24/23 11:05 64 110/58 L 01/24/23 11:08 73 24 H 98 Nasal Cannula 5 01/24/23 10:40 62 110/60 01/24/23 10:30 71 121/53 L 01/24/23 10:20 68 124/54 L 01/24/23 10:00 68 133/53 L 01/24/23 09:40 68 135/53 L 01/24/23 09:20 67 130/43 L 01/24/23 09:00 75 143/58 H 01/24/23 08:40 68 146/59 H 01/24/23 08:20 67 153/68 H 01/24/23 08:08 98.5 F 67 18 163/71 H 01/24/23 08:08 3 01/24/23 08:00 98.4 F 85 14 169/47 H 93 01/24/23 04:00 73 01/24/23 04:00 97 Nasal Cannula 3 01/24/23 04:00 98.1 F 70 18 125/58 L 97 01/24/23 00:00 76 01/24/23 00:00 96 Nasal Cannula 3 01/23/23 23:53 97.5 F L 75 18 129/51 L 96 01/23/23 20:00 73 01/23/23 21:17 76 91 Nasal Cannula 3 01/23/23 20:00 97.9 F 63 18 129/43 L 98 01/23/23 16:00 98 Nasal Cannula 2 01/23/23 18:00 80 01/23/23 16:00 75 01/23/23 14:00 72 01/23/23 16:00 98.1 F 77 18 157/40 H 98 Intake/Output Intake/Output: Intake & Output 01/21/23 01/22/23 01/23/23 01/24/23 23:59 23:59 23:59 23:59 Intake Total 1700 1020 1180 Output Total 3000 2196 Balance 1700 -1979 1180 -2196 Meds/Results Medications: Active Medications Generic Name Dose Route Start Last Admin Trade Name Orvilleq PRN Reason Stop Dose Admin Acetaminophen 650 mg 01/19/23
--- NOTE | 2023-01-24 11:13 | P.PNNP_ITS ---
Progress Note: A&P Assessment and Plan (1) End stage renal disease: Code(s): N18.6 - End stage renal disease Status: Chronic Assessment and Plan: * HD today * continue M/W/F dialysis schedule while hospitalized * follow electrolytes, volume status, and clearance (2) Acute on chronic respiratory failure with hypoxia: Code(s): J96.21 - Acute and chronic respiratory failure with hypoxia Status: Acute Assessment and Plan: * multifactorial etiology: * known hx of COPD * volume overload * pneumonia(?) * pulmonary HTN * significant anemia * on supplemental oxygen at baseline * fluid removal with dialysis as tolerated * PRBC transfusion per protocol * need antibiotics for pneumonia(?) * follow respiratory status (3) Anemia: Code(s): D64.9 - Anemia, unspecified Status: Chronic Assessment and Plan: * chronic issue/problem * partly related to ESRD but acute blood loss a concern (guaiac + stools) * Epogen with HD * PRBC transfusion per protocol * GI recommendations noted -- no further endoscopy procedures planned * follow trend H/H (4) Hypertension: Code(s): I10 - Essential (primary) hypertension Status: Chronic Assessment and Plan: * reasonable control * continue home medications - clonidine changed to PRN * follow trend of hemodynamics (5) Diabetes: Code(s): E11.9 - Type 2 diabetes mellitus without complications Status: Chronic Assessment and Plan: * follow accuchecks * glycemic control per hospitalists Will continue to follow. Subjective Date/time seen: 01/24/23 11:13 Interval history: Follow-up for end stage renal disease on hemodialysis. Tolerating dialysis treatment at time of my visit (seen at 11:00AM) but extremely restless and continuing to complaint of shortness of breath (despite adequate oxygen saturations); supplemental oxygen and breathing treatments did n ot help and then started screaming for help and not being cooperative with HD treatment so treatment ended early. Exam Narrative: General: elderly and chronically ill-appearing female; quite restless/anxious Heart: normal S1 and S2; no rub Lungs: coarse breath sounds with bibasilar crackles Abdomen: soft, nondistended, positive bowel sounds Extremities: no cyanosis or clubbing; 1+ edema Skin: no rash Objective Data Vital Signs Vital Signs: Vital Signs Temp Pulse Resp BP Pulse Ox O2 Del Method O2 Flow Rate 01/24/23 11:10 97.6 F 69 18 126/49 L 100 01/24/23 11:05 64 110/58 L 01/24/23 11:08 73 24 H 98 Nasal Cannula 5 01/24/23 10:40 62 110/60 01/24/23 10:30 71 121/53 L 01/24/23 10:20 68 124/54 L 01/24/23 10:00 68 133/53 L 01/24/23 09:40 68 135/53 L 01/24/23 09:20 67 130/43 L 01/24/23 09:00 75 143/58 H 01/24/23 08:40 68 146/59 H 01/24/23 08:20 67 153/68 H 01/24/23 08:08 98.5 F 67 18 163/71 H 01/24/23 08:08 3 01/24/23 08:00 98.4 F 85 14 169/47 H 93 01/24/23 04:00 73 01/24/23 04:00 97 Nasal Cannula 3 01/24/23 04:00 98.1 F 70 18 125/58 L 97 01/24/23 00:00 76 01/24/23 00:00 96 Nasal Cannula 3
[2023-01-24] MEDS: busPIRone HCL 2.5 MG TABLET 7.5 MG PO ×2 (11:41→18:34)
[2023-01-24] MEDS: SEVELAMER CARBONATE 800 MG TABLET PO ×2 (11:41→18:33)
[2023-01-24] MEDS: PANTOPRAZOLE 40 MG TABLET PO (11:42)
[2023-01-24] MEDS: DOCUSATE SODIUM 100 MG CAPSULE PO ×2 (11:42→20:37)
[2023-01-24] MEDS: amLODIPine BESYLATE 5 MG TABLET 10 MG PO (11:42)
[2023-01-24] MEDS: FERROUS SULFATE 325 MG TABLET DR PO ×2 (11:42→18:34)
[2023-01-24] MEDS: SPIRONOLACTONE 25 MG TABLET PO (11:42)
[2023-01-24] MEDS: IRON SUCROSE COMPLEX 100 MG in SODIUM CHLORIDE 0.9% IV 50 ML 220 MG IVPB (11:42)
[2023-01-24] MEDS: lisinopriL 20 MG TABLET PO (11:42)
--- NOTE | 2023-01-24 17:11 | PM.IMPN ---
Progress Note: A&P Assessment and Plan (1) Symptomatic anemia: Code(s): D64.9 - Anemia, unspecified Status: Acute (2) End-stage renal disease on hemodialysis: Code(s): N18.6 - End stage renal disease; Z99.2 - Dependence on renal dialysis Status: Acute (3) Hypertension: Code(s): I10 - Essential (primary) hypertension Status: Chronic (4) Hypothyroidism: Code(s): E03.9 - Hypothyroidism, unspecified Status: Acute (5) Acute on chronic blood loss anemia: Code(s): D62 - Acute posthemorrhagic anemia Status: Acute Plan Symptomatic anemia Profound anemia associated with short of breath Patient has chronic anemia, likely secondary to acute renal failure but the patient needs repeated blood transfusion, possible acute on chronic blood-loss anemia she has had Hemoccult-positive stools previously, including today. Upper endoscopy in October [address] Guerra showed gastric and duodenal polyps without evidence of bleeding. GI consult because hemoglobin continues to drop repeat cbc , transfuse venofer x3 hb less than 7.5 fecal impaction per ED physician, no stool was appreciated in the rectal vault Start MiraLax, and enema Acute on chronic heart failure fluid overload, October 26 echocardiogram reveals normal EF CT 65 to 70% Pulmonary congestion on chest x-ray Consult department operations manager for dialysis Patient is on dialysis today CXr erik AM NPO today Acute respiratory failure Hypoxemia, pulse ox 90% on 3 L oxygen, likely secondary to fluid overload and acute on chronic heart failure Emergent dialysis Continue O2 therapy Troponin is mildly elevated not having any chest pain EKG shows no acute changes. This is likely elevated in the setting of her renal disease and profound anemia. Essential hypertension her blood pressures were reviewed and they are stable. Acquired hypothyroidism continue levothyroxine. End-stage renal disease on dialysis nephrology consulted for dialysis. Dialysis in hospital Subjective Date/time seen: 01/24/23 17:11 Interval history: Follow-up for end stage renal disease on hemodialysis. Tolerating dialysis treatment at time of my visit (seen at 11:00AM) but extremely restless and continuing to complaint of shortness of breath (despite adequate oxygen saturations); supplemental oxygen and breathing treatments did not help and then started screaming for help and not being cooperative with HD treatment so treatment ended early. Sp dialysis today severe cough order cxr to check for aspiration keep npo tonite Review of Systems Review of Systems: no specfic compliants Exam Narrative: General:?Hard of hearing. Chronically ill-appearing female. Weight: 90 kg. BMI: 29.3. HEENT:???PERRL, EOMI. Sclera anicteric. Changes of prior cataract surgery with lens implants. Tacky mucous membranes. Neck:??Supple. Some jugular venous distension. Respiratory:? Tachypnea, crackles bilateral lungs, reduced significantly. Cardiovascular:??Regular rate and rhythm with S1-S2. Soft systolic murmur at the upper sternal border. Gastrointestinal:??Abdomen is soft, nontender, and nondistended with positive bowel sounds. Skin:??Warm and dry.? No rash or lesions on limited exam. Extremities:??No cyanosis or clubbing. 1+ bilateral lower extremity edema, left greater than right. Left upper extremity AV fistula with palpable thrill and bruit. Neurological:??Alert.? Cranial nerves 2-12 are grossly intact. No gross focal deficits to casual conversation. Psychiatric:??Cooperative with appropriate mood and affect. Objective Data Vital Signs Vital Signs: Vital Signs - 24 hr 01/23/23 18:00 01/23/23 20:00 01/23/23 21:17 Temperature 36.6 C Pulse Rate 80 63 76 Respiratory Rate 18 Blood Pressure 129/43 L Pulse Oximetry 98 91 Oxygen Delivery Nasal Cannula Oxygen Flow Rate 3 Fraction of Inspired Oxygen 32 01/23/23 20:00 01/23/23 23:53 01/24/23
[2023-01-24] MEDS: LATANOPROST 0.005% OP SOLN 2.5 ML BTL 1 DROP EACH EYE (20:36)
[2023-01-24] MEDS: ATORVASTATIN 20 MG TABLET PO (20:36)
--- NOTE | 2023-01-24 21:37 | PC.NURSE ---
This patient, Sofía Contreras, was transferred to [facility] on 01/24/23 at 2137. Personal belongings sent with patient. Report given to SARBJIT Thornton. Appropriate documentation sent with patient.
--- NOTE | 2023-01-24 22:27 | PC.NURSE ---
At 2150 Pt arived to room 223 from [facility].
[2023-01-25] VITALS (7 sets, daily range): BP systolic 138–153; BP diastolic 42–46; PULSE 63–71; RESP 18–20; TEMP 36–37; O2SAT 94–96
[2023-01-25 05:27] LABS: Hematocrit 30.1 % (37.0-47.0); Hemoglobin 8.9 g/dL (12.0-15.0); Mean Corpuscular HGB Conc 29.6 g/dl (32-36); Mean Platelet Volume 10.6 fl (7.4-10.4); Platelet Count Result 293 k/mm3 (150-375); Red Blood Count 3.07 M/mm3 (4.2-5.4); Red Cell Distribution Width 15.9 % (11.5-14.5); White Blood Count 7.6 K/mm3 (4.5-10.0)
[2023-01-25 05:44] LABS: Anion Gap 5 mmol/L (8-16); Blood Urea Nitrogen 22 mg/dL (7-17); Calcium 8.4 mg/dL (8.4-10.2); Carbon Dioxide 29 mmol/L (22-30); Chloride 101 mmol/L (98-107); Estimated CRCL calculation 10 ml/min; Estimated Glomerular Filt Rate 11; Glucose 75 mg/dL (65-110); Potassium 4.2 mmol/L (3.4-5.0); Sodium 135 mmol/L (137-145)
[2023-01-25] MEDS: LEVOTHYROXINE SODIUM 100 MCG TABLET PO (05:47)
[2023-01-25] MEDS: FERROUS SULFATE 325 MG TABLET DR PO ×2 (08:28→17:10)
[2023-01-25] MEDS: busPIRone HCL 2.5 MG TABLET 7.5 MG PO ×2 (08:28→17:10)
[2023-01-25] MEDS: amLODIPine BESYLATE 5 MG TABLET 10 MG PO (08:28)
[2023-01-25] MEDS: DOCUSATE SODIUM 100 MG CAPSULE PO ×2 (08:28→21:42)
[2023-01-25] MEDS: PANTOPRAZOLE 40 MG TABLET PO (08:29)
[2023-01-25] MEDS: lisinopriL 20 MG TABLET PO (08:29)
[2023-01-25] MEDS: SPIRONOLACTONE 25 MG TABLET PO (08:29)
[2023-01-25] MEDS: SEVELAMER CARBONATE 800 MG TABLET PO ×3 (08:29→17:10)
[2023-01-25] MEDS: IRON SUCROSE COMPLEX 100 MG in SODIUM CHLORIDE 0.9% IV 50 ML IVPB (08:39)
--- NOTE | 2023-01-25 11:39 | PM.IMPN ---
Progress Note: A&P Assessment and Plan (1) Symptomatic anemia: Code(s): D64.9 - Anemia, unspecified Status: Acute (2) End-stage renal disease on hemodialysis: Code(s): N18.6 - End stage renal disease; Z99.2 - Dependence on renal dialysis Status: Acute (3) Hypertension: Code(s): I10 - Essential (primary) hypertension Status: Chronic (4) Hypothyroidism: Code(s): E03.9 - Hypothyroidism, unspecified Status: Acute (5) Acute on chronic blood loss anemia: Code(s): D62 - Acute posthemorrhagic anemia Status: Acute Plan Symptomatic anemia Profound anemia associated with short of breath Patient has chronic anemia, likely secondary to acute renal failure but the patient needs repeated blood transfusion, possible acute on chronic blood-loss anemia she has had Hemoccult-positive stools previously, including today. Upper endoscopy in October [address] Guerra showed gastric and duodenal polyps without evidence of bleeding. GI consult because hemoglobin continues to drop repeat cbc , transfuse venofer x3 rpt hb erik AM hopeful dc by Sunday fecal impaction per ED physician, no stool was appreciated in the rectal vault Start MiraLax, and enema prn watch bowel movements Acute on chronic heart failure fluid overload, October 26 echocardiogram reveals normal EF CT 65 to 70% Pulmonary congestion on chest x-ray Consult bit sharpener for dialysis Patient is on dialysis today CXr erik AM restart diet as per swallow recommendations Acute respiratory failure Hypoxemia, pulse ox 90% on 3 L oxygen, likely secondary to fluid overload and acute on chronic heart failure Emergent dialysis pt on 3 liters of oxygen Troponin is mildly elevated not having any chest pain EKG shows no acute changes. This is likely elevated in the setting of her renal disease and profound anemia. Essential hypertension her blood pressures were reviewed and they are stable. Acquired hypothyroidism continue levothyroxine. End-stage renal disease on dialysis nephrology consulted for dialysis. Dialysis in hospital Subjective Date/time seen: 01/25/23 11:39 Interval history: Tolerating dialysis treatment at time of my visit (seen at 11:00AM) but extremely restless and continuing to complaint of shortness of breath (despite adequate oxygen saturations); supplemental oxygen and breathing treatments did not help and then started screaming for help and not being cooperative with HD treatment so treatment ended early. Sp dialysis yesterday did well unfortunately started having a severe cough order cxr to check for aspiration Pt had cxr showing - 1. Stable small right pleural effusion. 2. Stable airspace opacities at right lung base, consistent with atelectasis versus pneumonia. 3. Cardiomegaly. Pt must sit up to eat her food 45degree Pt had MBS already on 01/22 ok to continue these recommendations Review of Systems Review of Systems: Poor historian no cough today Exam Narrative: General:?Hard of hearing. Chronically ill-appearing female Neck:??Supple. Some jugular venous distension. Respiratory:? Tachypnea, crackles bilateral lungs, reduced significantly. Cardiovascular:??Regular rate and rhythm with S1-S2. Soft systolic murmur at the upper sternal border. Gastrointestinal:??Abdomen is soft, nontender, and nondistended with positive bowel sounds. Skin:??Warm and dry.? No rash or lesions on limited exam. Extremities:??No cyanosis or clubbing. 1+ bilateral lower extremity edema, left greater than right. Left upper extremity AV fistula with palpable thrill and bruit. Neurological:??Alert.? Cranial nerves 2-12 are grossly intact. No gross focal deficits to casual conversation. Psychiatric:??Cooperative with appropriate mood and affect. Objective Data Vital Signs Vital Signs: Vital Signs - 24 hr 01/24/23 12:00 01/24/23 16:00 01/24/23 12:00 Temperature 37.1 C Pulse Rate 128 H
--- NOTE | 2023-01-25 13:20 | PM.PNNEP ---
Progress Note: A&P Assessment and Plan (1) End stage renal disease: Code(s): N18.6 - End stage renal disease Status: Chronic Assessment and Plan: HD tomorrow continue M/W/F dialysis schedule while hospitalized follow electrolytes, volume status, and clearance (2) Acute on chronic respiratory failure with hypoxia: Code(s): J96.21 - Acute and chronic respiratory failure with hypoxia Status: Acute Assessment and Plan: multifactorial etiology: known hx of COPD volume overload pneumonia(?) pulmonary HTN significant anemia on admission on supplemental oxygen at baseline fluid removal with dialysis as tolerated PRBC transfusion per protocol need antibiotics for pneumonia(?) follow respiratory status (3) Anemia: Code(s): D64.9 - Anemia, unspecified Status: Chronic Assessment and Plan: chronic issue/problem partly related to ESRD but acute blood loss a concern (guaiac + stools) Epogen with HD PRBC transfusion per protocol GI recommendations noted -- no further endoscopy procedures planned follow trend H/H (4) Hypertension: Code(s): I10 - Essential (primary) hypertension Status: Chronic Assessment and Plan: reasonable control continue home medications - clonidine changed to PRN follow trend of hemodynamics (5) Diabetes: Code(s): E11.9 - Type 2 diabetes mellitus without complications Status: Chronic Assessment and Plan: follow accuchecks glycemic control per hospitalists Will continue to follow. Subjective Date/time seen: 01/25/23 13:20 Interval history: Follow-up for end stage renal disease on hemodialysis. Ended dialysis treatment early yesterday due to complaints of shortness of breath (lungs sounded with but stable oxygen saturations) and frequently yelling out for help in association with anxiety/restlessness -- seems a bit better at the time of my visit; quite hard of hearing which limits conversation with her; no apparent distress currently. Exam Narrative: General: elderly and chronically ill-appearing female in NAD Heart: normal S1 and S2; no rub Lungs: coarse breath sounds with bibasilar crackles Abdomen: soft, nondistended, positive bowel sounds Extremities: no cyanosis or clubbing; 1+ edema Skin: no nodules Objective Data Vital Signs Vital Signs: Vital Signs Temp Pulse Resp BP Pulse Ox O2 Del Method O2 Flow Rate 01/25/23 13:15 98.6 F 67 20 138/42 L 96 01/25/23 08:00 96 Nasal Cannula 3 01/25/23 05:24 96.8 F L 65 18 153/42 H 94 01/25/23 00:00 98.4 F 63 20 148/42 H 94 01/24/23 20:00 96 Nasal Cannula 3 01/24/23 20:00 97 F L 90 16 118/36 L 96 Intake/Output Intake/Output: Intake & Output 01/22/23 01/23/23 01/24/23 01/25/23 23:59 23:59 23:59 23:59 Intake Total 1020 1180 205 655 Output Total 3000 2196 0 -1979 1179 -1990 655 Meds/Results Medications: Active Medications Generic Name Dose Route Start Last Admin Trade Name Freq PRN Reason Stop Dose Admin Acetaminophen 650 mg 01/19/23 20:33 01/21/23 13:24 Acetaminophen 325 Mg Tablet PO 650 mg Q6H PRN Administration Pain (Scale Score 1-3) Albuterol 2.5 mg 01/22/23 10:19 01/24/23 11:08 Albuterol Sulfate Neb 2.5 Mg/3 Ml Inh INHALATION 2.5 mg Q4HRT PRN Administration Shortness Of Breath Amlodipine Besylate 10 mg 01/20/23 09:00 01/25/23 08:28 Amlodipine Besylate 5 Mg Tablet PO 10 mg QAM LAUREN Administration Atorvastatin Calcium 20 mg 01/19/23 21:00 01/24/23 20:36 Atorvastatin 20 Mg Tablet PO 20 mg HS LAUREN Administration Buspirone HCl 7.5 mg 01/20/23 09:00 01/25/23 17:10 Buspirone Hcl 2.5 Mg Tablet PO 02/19/23 08:59 7.5 mg BID LAUREN Administration Clonidine HCl 0.1 mg 01/21/23 14:04 Clonidine Hcl 0.1 Mg Tablet PO Q8H PRN systolic above 160 Docusate S
--- NOTE | 2023-01-25 13:20 | P.PNNP_ITS ---
Progress Note: A&P Assessment and Plan (1) End stage renal disease: Code(s): N18.6 - End stage renal disease Status: Chronic Assessment and Plan: * HD tomorrow * continue M/W/F dialysis schedule while hospitalized * follow electrolytes, volume status, and clearance (2) Acute on chronic respiratory failure with hypoxia: Code(s): J96.21 - Acute and chronic respiratory failure with hypoxia Status: Acute Assessment and Plan: * multifactorial etiology: * known hx of COPD * volume overload * pneumonia(?) * pulmonary HTN * significant anemia on admission * on supplemental oxygen at baseline * fluid removal with dialysis as tolerated * PRBC transfusion per protocol * need antibiotics for pneumonia(?) * follow respiratory status (3) Anemia: Code(s): D64.9 - Anemia, unspecified Status: Chronic Assessment and Plan: * chronic issue/problem * partly related to ESRD but acute blood loss a concern (guaiac + stools) * Epogen with HD * PRBC transfusion per protocol * GI recommendations noted -- no further endoscopy procedures planned * follow trend H/H (4) Hypertension: Code(s): I10 - Essential (primary) hypertension Status: Chronic Assessment and Plan: * reasonable control * continue home medications - clonidine changed to PRN * follow trend of hemodynamics (5) Diabetes: Code(s): E11.9 - Type 2 diabetes mellitus without complications Status: Chronic Assessment and Plan: * follow accuchecks * glycemic control per hospitalists Will continue to follow. Subjective Date/time seen: 01/25/23 13:20 Interval history: Follow-up for end stage renal disease on hemodialysis. Ended dialysis treatment early yesterday due to complaints of shortness of breath (lungs sounded with but stable oxygen saturations) and frequently yelling out for help in association with anxiety/restlessness -- seems a bit better at the time of my visit; quite hard of hearing which limits conversation with her; no apparent distress currently. Exam Narrative: General: elderly and chronically ill-appearing female in NAD Heart: normal S1 and S2; no rub Lungs: coarse breath sounds with bibasilar crackles Abdomen: soft, nondistended, positive bowel sounds Extremities: no cyanosis or clubbing; 1+ edema Skin: no nodules Objective Data Vital Signs Vital Signs: Vital Signs Temp Pulse Resp BP Pulse Ox O2 Del Method O2 Flow Rate 01/25/23 13:15 98.6 F 67 20 138/42 L 96 01/25/23 08:00 96 Nasal Cannula 3 01/25/23 05:24 96.8 F L 65 18 153/42 H 94 01/25/23 00:00 98.4 F 63 20 148/42 H 94 01/24/23 20:00 96 Nasal Cannula 3 01/24/23 20:00 97 F L 90 16 118/36 L 96 Intake/Output Intake/Output: Intake & Output 01/22/23 01/23/23 01/24/23 01/25/23 23:59 23:59 23:59 23:59 Intake Total 1020 1180 205 655 Output Total 3000 2196 0 -1979 1179 -1990 655 Meds/Results Medications: Active Medications Generic Name Dose Route Start Last Admin Trade Name Freq PRN Reason Stop Dose Admin Acetaminophen 650 mg 01/19/23 20:33 01/21/23 13:24 Ac
[2023-01-25] MEDS: ATORVASTATIN 20 MG TABLET PO (21:42)
[2023-01-25] MEDS: LATANOPROST 0.005% OP SOLN 2.5 ML BTL 1 DROP EACH EYE (21:43)
[2023-01-26] VITALS (24 sets, daily range): BP systolic 107–155; BP diastolic 39–66; PULSE 67–78; RESP 16–20; TEMP 36–36.8; O2SAT 94–99
[2023-01-26] MEDS: ALBUTEROL SULFATE NEB 2.5 MG/3 ML INH INHALATION ×2 (00:11→22:25)
[2023-01-26 05:48] LABS: Hematocrit 29.1 % (37.0-47.0); Hemoglobin 8.6 g/dL (12.0-15.0); Mean Corpuscular HGB Conc 29.6 g/dl (32-36); Mean Corpuscular Hemoglobin 29.7 pg (26-34); Mean Corpuscular Volume 100.3 fl (80-100); Mean Platelet Volume 10.9 fl (7.4-10.4); Platelet Count Result 311 k/mm3 (150-375); Red Cell Distribution Width 16.1 % (11.5-14.5); White Blood Count 9.4 K/mm3 (4.5-10.0)
[2023-01-26 06:06] LABS: Alanine Aminotransferase 8 U/L (6-35); Albumin Level 3.4 g/dL (3.5-5.1); Alkaline Phosphatase 60 U/L (38-126); Anion Gap 7 mmol/L (8-16); Aspartate Amino Transferase 17 U/L (14-36); Bilirubin,Total 0.3 mg/dL (0.2-1.3); Blood Urea Nitrogen 35 mg/dL (7-17); Calcium 8.2 mg/dL (8.4-10.2); Carbon Dioxide 30 mmol/L (22-30); Chloride 101 mmol/L (98-107); Estimated CRCL calculation 7 ml/min; Estimated Glomerular Filt Rate 7; Glucose 85 mg/dL (65-110); Phosphorus 4.9 mg/dL (2.5-4.5); Potassium 4.6 mmol/L (3.4-5.0); Sodium 138 mmol/L (137-145)
[2023-01-26] MEDS: LEVOTHYROXINE SODIUM 100 MCG TABLET PO (07:03)
--- NOTE | 2023-01-26 07:12 | PM.IMPN ---
Progress Note: A&P Assessment and Plan (1) End-stage renal disease on hemodialysis: Code(s): N18.6 - End stage renal disease; Z99.2 - Dependence on renal dialysis Status: Acute Assessment and Plan: M/W/F HD nephrology consulted (2) Hypertension: Code(s): I10 - Essential (primary) hypertension Status: Chronic Assessment and Plan: Blood pressures reviewed, stable SBP 150-154 mm hg, HR 70's Continue with home anti-hypertensives with amlodipine, lisinopril, and spironolactone (3) Hypothyroidism: Code(s): E03.9 - Hypothyroidism, unspecified Status: Acute Assessment and Plan: Continue levothyroxine (4) Chronic anemia: Code(s): D64.9 - Anemia, unspecified Status: Acute Assessment and Plan: chronic issue/problem partly related to ESRD but acute blood loss a concern (guaiac + stools) Epogen with HD PRBC transfusion per protocol GI recommendations noted -- no further endoscopy procedures planned follow trend H/H (5) Aspiration of food: Code(s): T17.928A - Food in respiratory tract, part unspecified causing other injury, initial encounter Status: Acute Assessment and Plan: Concerns for aspiration with eating. NPO now Speech on board and recommends modified barium swallow tomorrow Congested cough this morning that patient says she usually does not have Chest XR ordered Subjective Date/time seen: 01/26/23 07:12 Interval history: This is an 87-year-old female with end-stage renal disease on hemodialysis, chronic respiratory failure on 2 to 3 L nasal cannula, chronic obstructive pulmonary disease, pulmonary hypertension, diastolic dysfunction, hypertension, chronic anemia, diet-controlled diabetes, and dementia who presented to the emergency department for evaluation of shortness of breath. The patient provides the following history however it is somewhat limited by her significant hearing loss and underlying dementia. She missed dialysis this past Sunday for unclear reasons and today she only completed 1.5 hours of dialysis before dialysis staff members called EMS after she began complaining of shortness of breath. Upon arrival to the ED she was unable to say why she was brought in. She did mention vague abdominal discomfort and a CT of the abdomen and pelvis showed fecal impaction and likely atypical infection or aspiration in the lung bases with small bilateral pleural effusions. Labs were significant for hemoglobin and hematocrit of 5.3 and 17.3% respectively, sodium 136, potassium 3.9, troponin 0.045, proBNP 8200. EKG was negative for acute ST segment elevations and depressions and no significant changes were noted from previous tracings. Stool was Hemoccult positive according to the ED physician. The patient has been previously evaluated by GI with no obvious source of bleeding. She is being admitted in this setting for blood transfusion and close monitoring. At the time my evaluation her main complaint is that of fatigue. She has not noticed any obvious blood loss. She denies chest pain, pleuritic pain, palpitations, cough, nausea, vomiting, diarrhea, dysphagia, and concerns for aspiration. Interval history: 01/26: Patient seen reading a book at bedside. She is extremely hard of hearing his this makes my assessment difficult. She is alert and oriented to person, place, and year. She denies chest pain and shortness of breath. She does have a notable congested cough. She says that this is not normal for her. Later in the day I received a message from speech therapy saying that increased coughing has been noticed between meals. Speech recommends NPO now and a repeat of a modified barium swallow tomorrow. Will obtain a chest x-ray. She is supposed to go for HD today. Review of Systems Review of Systems: All systems reviewed & are unremarkable except as noted in HPI and below Exam Narrative: General: thin and chronically i
[2023-01-26] MEDS: amLODIPine BESYLATE 5 MG TABLET 10 MG PO (08:53)
[2023-01-26] MEDS: busPIRone HCL 2.5 MG TABLET 7.5 MG PO (08:53)
[2023-01-26] MEDS: FERROUS SULFATE 325 MG TABLET DR PO (08:53)
[2023-01-26] MEDS: IRON SUCROSE COMPLEX 100 MG in SODIUM CHLORIDE 0.9% IV 50 ML 220 MG IVPB (08:54)
[2023-01-26] MEDS: DOCUSATE SODIUM 100 MG CAPSULE PO ×2 (08:54→21:22)
[2023-01-26] MEDS: PANTOPRAZOLE 40 MG TABLET PO (08:55)
[2023-01-26] MEDS: SEVELAMER CARBONATE 800 MG TABLET PO ×2 (08:55→13:10)
[2023-01-26] MEDS: lisinopriL 20 MG TABLET PO (08:55)
[2023-01-26] MEDS: SPIRONOLACTONE 25 MG TABLET PO (08:56)
--- NOTE | 2023-01-26 09:24 | PCNWS ---
Weekly nutritional screen. Patient is tolerating current diet Renal diet with level 3 moderately thick liquids with adequate intake, 100% intakes all meals yesterday. Refusing meals the previous day. All other intakes 75-100% throughout stay. No weight loss reported. No nutritional needs at this time.
--- NOTE | 2023-01-26 13:11 | P.PNNP_ITS ---
Progress Note: A&P Assessment and Plan (1) End stage renal disease: Code(s): N18.6 - End stage renal disease Status: Chronic Assessment and Plan: * HD today * continue M/W/F dialysis schedule while hospitalized * follow electrolytes, volume status, and clearance (2) Acute on chronic respiratory failure with hypoxia: Code(s): J96.21 - Acute and chronic respiratory failure with hypoxia Status: Acute Assessment and Plan: * multifactorial etiology: * known hx of COPD * volume overload * pneumonia(?) * pulmonary HTN * significant anemia on admission * on supplemental oxygen at baseline * fluid removal with dialysis as tolerated * PRBC transfusion per protocol * need antibiotics for pneumonia(?) * follow respiratory status (3) Anemia: Code(s): D64.9 - Anemia, unspecified Status: Chronic Assessment and Plan: * chronic issue/problem * partly related to ESRD but acute blood loss a concern (guaiac + stools) * Epogen with HD * PRBC transfusion per protocol * GI recommendations noted -- no further endoscopy procedures planned * follow trend H/H (4) Hypertension: Code(s): I10 - Essential (primary) hypertension Status: Chronic Assessment and Plan: * reasonable control * continue home medications - clonidine changed to PRN * follow trend of hemodynamics (5) Diabetes: Code(s): E11.9 - Type 2 diabetes mellitus without complications Status: Chronic Assessment and Plan: * follow accuchecks * glycemic control per hospitalists Will continue to follow. Subjective Date/time seen: 01/26/23 13:11 Interval history: Follow-up for end stage renal disease on hemodialysis. Seems a bit more relaxed/calm today at the time of my visit; breathing/respiratory status seems relatively stable although there is an apparent concern that she may be aspirating as she is seen coughing quite a bit in-between meals; scheduled to receive dialysis today. Exam Narrative: General: elderly and chronically ill-appearing female in NAD Heart: normal S1 and S2; no rub Lungs: coarse breath sounds with bibasilar crackles Abdomen: soft, nondistended, positive bowel sounds Extremities: no cyanosis or clubbing; 1+ edema Skin: warm and dry Objective Data Vital Signs Vital Signs: Vital Signs Temp Pulse Resp BP Pulse Ox O2 Del Method O2 Flow Rate 01/26/23 13:00 98.3 F 70 18 154/40 H 99 01/26/23 08:50 95 Nasal Cannula 3 01/26/23 07:52 95 Nasal Cannula 3 01/26/23 04:09 97.7 F 71 20 150/52 H 94 01/26/23 00:29 75 20 01/26/23 00:15 70 20 01/26/23 00:14 96 Nasal Cannula 3 01/26/23 00:00 97.8 F 70 20 140/52 L 96 01/25/23 20:30 71 20 94 Nasal Cannula 3 01/25/23 20:04 97.8 F 71 20 143/46 H 94 Intake/Output Intake/Output: Intake & Output 01/23/23 01/24/23 01/25/23 01/26/23 23:59 23:59 23:59 23:59 Intake Total 3359 396 0141 600 Output Total 2196 0 0 Balance 1179 -1990 1095 600 Meds/Results Medications: Active Medications Generic Name Dose Route Start Last Admin Trade Name Terrell PRN Re
--- NOTE | 2023-01-26 13:11 | PM.PNNEP ---
Progress Note: A&P Assessment and Plan (1) End stage renal disease: Code(s): N18.6 - End stage renal disease Status: Chronic Assessment and Plan: HD today continue M/W/F dialysis schedule while hospitalized follow electrolytes, volume status, and clearance (2) Acute on chronic respiratory failure with hypoxia: Code(s): J96.21 - Acute and chronic respiratory failure with hypoxia Status: Acute Assessment and Plan: multifactorial etiology: known hx of COPD volume overload pneumonia(?) pulmonary HTN significant anemia on admission on supplemental oxygen at baseline fluid removal with dialysis as tolerated PRBC transfusion per protocol need antibiotics for pneumonia(?) follow respiratory status (3) Anemia: Code(s): D64.9 - Anemia, unspecified Status: Chronic Assessment and Plan: chronic issue/problem partly related to ESRD but acute blood loss a concern (guaiac + stools) Epogen with HD PRBC transfusion per protocol GI recommendations noted -- no further endoscopy procedures planned follow trend H/H (4) Hypertension: Code(s): I10 - Essential (primary) hypertension Status: Chronic Assessment and Plan: reasonable control continue home medications - clonidine changed to PRN follow trend of hemodynamics (5) Diabetes: Code(s): E11.9 - Type 2 diabetes mellitus without complications Status: Chronic Assessment and Plan: follow accuchecks glycemic control per hospitalists Will continue to follow. Subjective Date/time seen: 01/26/23 13:11 Interval history: Follow-up for end stage renal disease on hemodialysis. Seems a bit more relaxed/calm today at the time of my visit; breathing/respiratory status seems relatively stable although there is an apparent concern that she may be aspirating as she is seen coughing quite a bit in-between meals; scheduled to receive dialysis today. Exam Narrative: General: elderly and chronically ill-appearing female in NAD Heart: normal S1 and S2; no rub Lungs: coarse breath sounds with bibasilar crackles Abdomen: soft, nondistended, positive bowel sounds Extremities: no cyanosis or clubbing; 1+ edema Skin: warm and dry Objective Data Vital Signs Vital Signs: Vital Signs Temp Pulse Resp BP Pulse Ox O2 Del Method O2 Flow Rate 01/26/23 13:00 98.3 F 70 18 154/40 H 99 01/26/23 08:50 95 Nasal Cannula 3 01/26/23 07:52 95 Nasal Cannula 3 01/26/23 04:09 97.7 F 71 20 150/52 H 94 01/26/23 00:29 75 20 01/26/23 00:15 70 20 01/26/23 00:14 96 Nasal Cannula 3 01/26/23 00:00 97.8 F 70 20 140/52 L 96 01/25/23 20:30 71 20 94 Nasal Cannula 3 01/25/23 20:04 97.8 F 71 20 143/46 H 94 Intake/Output Intake/Output: Intake & Output 01/23/23 01/24/23 01/25/23 01/26/23 23:59 23:59 23:59 23:59 Intake Total 5572 860 5019 600 Output Total 2196 0 0 Balance 1179 -1990 1095 600 Meds/Results Medications: Active Medications Generic Name Dose Route Start Last Admin Trade Name Freq PRN Reason Stop Dose Admin Acetaminophen 650 mg 01/19/23 20:33 01/21/23 13:24 Acetaminophen 325 Mg Tablet PO 650 mg Q6H PRN Administration Pain (Scale Score 1-3) Albuterol 2.5 mg 01/22/23 10:19 01/26/23 00:11 Albuterol Sulfate Neb 2.5 Mg/3 Ml Inh INHALATION 2.5 mg Q4HRT PRN Administration Shortness Of Breath Amlodipine Besylate 10 mg 01/20/23 09:00 01/26/23 08:53 Amlodipine Besylate 5 Mg Tablet PO 10 mg QAM LAUREN Administration Atorvastatin Calcium 20 mg 01/19/23 21:00 01/25/23 21:42 Atorvastatin 20 Mg Tablet PO 20 mg HS LAUREN Administration Buspirone HCl 7.5 mg 01/20/23 09:00 01/26/23 08:53 Buspirone Hcl 2.5 Mg Tablet PO 02/19/23 08:59 7.5 mg BID LAUREN Administration Clonidine HCl 0.1 mg 01/21/23 14:04 Clonidine Hcl 0.1
--- NOTE | 2023-01-26 14:04 | PCSTNOTE ---
Spoke with RN, Nica, concerning that patient has been coughing more frequently both during and in between meals. [place] recommends NPO overnight and then repeat Modified Barium Swallow study tomorrow to determine if dysphagia has exacerbated or if coughing is unrelated to swallowing. Katherin notified this therapist her understanding and agreement with recommendations.
[2023-01-26] MEDS: ATORVASTATIN 20 MG TABLET PO (21:22)
[2023-01-26] MEDS: ONDANSETRON INJ 4 MG/2 ML VIAL IV PUSH (21:22)
[2023-01-26] MEDS: LATANOPROST 0.005% OP SOLN 2.5 ML BTL 1 DROP EACH EYE (21:22)
[2023-01-26] MEDS: EPOETIN ALFA 20,000 UNITS/ML VIAL 20000 UNITS IV PUSH (22:38)
[2023-01-27] VITALS (8 sets, daily range): BP systolic 90–130; BP diastolic 32–52; PULSE 70–79; RESP 17–20; TEMP 36–36.5; O2SAT 92–100
[2023-01-27 05:32] LABS: Basophils Absolute Auto 0.1 K/mm3 (0.0-0.1); Basophils Percent Auto 0.7 % (0.2-1.2); Eosinophils Absolute Auto 0.5 K/mm3 (0-0.3); Eosinophils Percent Auto 6.4 % (0-4.4); Hematocrit 29.2 % (37.0-47.0); Hemoglobin 8.5 g/dL (12.0-15.0); Immature Granulocyte Absolute 0.16 K/mm3 (0.00-0.031); Lymphocytes Percent Auto 6.2 % (18.3-44.2); Mean Corpuscular HGB Conc 29.1 g/dl (32-36); Mean Corpuscular Hemoglobin 29.1 pg (26-34); Mean Platelet Volume 10.6 fl (7.4-10.4); Monocytes Absolute Auto 0.8 K/mm3 (0.1-0.6); Monocytes Percent Auto 9.8 % (2.6-8.5); Neutrophils Absolute Auto 6.1 K/mm3 (1.3-6.7); Neutrophils Percent Auto 74.9 % (45.5-73.1); Platelet Count Result 270 k/mm3 (150-375); Red Blood Count 2.92 M/mm3 (4.2-5.4); Red Cell Distribution Width 16.1 % (11.5-14.5); White Blood Count 8.1 K/mm3 (4.5-10.0)
[2023-01-27 06:04] LABS: Alanine Aminotransferase 7 U/L (6-35); Albumin Level 3.3 g/dL (3.5-5.1); Alkaline Phosphatase 61 U/L (38-126); Anion Gap 3 mmol/L (8-16); Aspartate Amino Transferase 27 U/L (14-36); Bilirubin,Total 0.2 mg/dL (0.2-1.3); Blood Urea Nitrogen 17 mg/dL (7-17); Calcium 8.1 mg/dL (8.4-10.2); Carbon Dioxide 30 mmol/L (22-30); Chloride 102 mmol/L (98-107); Estimated CRCL calculation 11 ml/min; Estimated Glomerular Filt Rate 12; Glucose 74 mg/dL (65-110); Potassium 4.2 mmol/L (3.4-5.0); Sodium 135 mmol/L (137-145)
[2023-01-27 06:47] LABS: Hypochromasia 1+ (NORMAL); Platelet Estimate Adequate (Adequate)
[2023-01-27 06:48] LABS: Anisocytosis 1+ (NORMAL); Macrocytosis 1+ (NORMAL); Ovalocytes 1+ (NORMAL); Poikilocytosis 1+ (NORMAL); Schistocytes None Seen (NORMAL)
--- NOTE | 2023-01-27 07:19 | PM.IMPN ---
Progress Note: A&P Assessment and Plan (1) End-stage renal disease on hemodialysis: Code(s): N18.6 - End stage renal disease; Z99.2 - Dependence on renal dialysis Status: Acute Assessment and Plan: M/W/F HD nephrology consulted (2) Hypertension: Code(s): I10 - Essential (primary) hypertension Status: Chronic Assessment and Plan: Blood pressures reviewed, stable SBP 150-154 mm hg, HR 70's Continue with home anti-hypertensives with amlodipine, lisinopril, and spironolactone (3) Hypothyroidism: Code(s): E03.9 - Hypothyroidism, unspecified Status: Acute Assessment and Plan: Continue levothyroxine (4) Chronic anemia: Code(s): D64.9 - Anemia, unspecified Status: Acute Assessment and Plan: chronic issue/problem partly related to ESRD but acute blood loss a concern (guaiac + stools) Epogen with HD PRBC transfusion per protocol GI recommendations noted -- no further endoscopy procedures planned follow trend H/H (5) Aspiration of food: Code(s): T17.928A - Food in respiratory tract, part unspecified causing other injury, initial encounter Status: Acute Assessment and Plan: Concerns for aspiration with eating. NPO now. Slow IVF D5NS at 45 ml per hour given no nutrition currently Medications changed to IV as appropriate and holding remaining PO medications. Speech on board, failed modified barium swallow. Congested cough this morning that patient says she usually does not have Chest XR ordered shows left middle and lower lobe infiltrate consistent with aspiration concerns Empirically placed on Rocephin and Flagyl Sputum ordered Subjective Date/time seen: 01/27/23 07:19 Interval history: This is an 87-year-old female with end-stage renal disease on hemodialysis, chronic respiratory failure on 2 to 3 L nasal cannula, chronic obstructive pulmonary disease, pulmonary hypertension, diastolic dysfunction, hypertension, chronic anemia, diet-controlled diabetes, and dementia who presented to the emergency department for evaluation of shortness of breath. The patient provides the following history however it is somewhat limited by her significant hearing loss and underlying dementia. She missed dialysis this past Sunday for unclear reasons and today she only completed 1.5 hours of dialysis before dialysis staff members called EMS after she began complaining of shortness of breath. Upon arrival to the ED she was unable to say why she was brought in. She did mention vague abdominal discomfort and a CT of the abdomen and pelvis showed fecal impaction and likely atypical infection or aspiration in the lung bases with small bilateral pleural effusions. Labs were significant for hemoglobin and hematocrit of 5.3 and 17.3% respectively, sodium 136, potassium 3.9, troponin 0.045, proBNP 8200. EKG was negative for acute ST segment elevations and depressions and no significant changes were noted from previous tracings. Stool was Hemoccult positive according to the ED physician. The patient has been previously evaluated by GI with no obvious source of bleeding. She is being admitted in this setting for blood transfusion and close monitoring. At the time my evaluation her main complaint is that of fatigue. She has not noticed any obvious blood loss. She denies chest pain, pleuritic pain, palpitations, cough, nausea, vomiting, diarrhea, dysphagia, and concerns for aspiration. Interval history: 01/26: Patient seen reading a book at bedside. She is extremely hard of hearing his this makes my assessment difficult. She is alert and oriented to person, place, and year. She denies chest pain and shortness of breath. She does have a notable congested cough. She says that this is not normal for her. Later in the day I received a message from speech therapy saying that increased coughing has been noticed between meals. Speech recommends NPO now and a repeat of a mo
[2023-01-27] MEDS: metroNIDAZOLE 500 MG/ISO 100ML 500 MG/100 ML BAG 100 MG IVPB ×2 (09:22→15:02)
--- NOTE | 2023-01-27 10:57 | PCSTNOTE ---
Please refer to the Modified Barium Swallow Evaluation in the EMR.
--- NOTE | 2023-01-27 11:01 | PM.PNNEP ---
Progress Note: A&P Assessment and Plan (1) End stage renal disease: Code(s): N18.6 - End stage renal disease Status: Chronic Assessment and Plan: HD yesterday continue M/W/ dialysis schedule while hospitalized follow electrolytes, volume status, and clearance (2) Acute on chronic respiratory failure with hypoxia: Code(s): J96.21 - Acute and chronic respiratory failure with hypoxia Status: Acute Assessment and Plan: multifactorial etiology: known hx of COPD volume overload aspiration pneumonia pulmonary HTN significant anemia on admission on supplemental oxygen at baseline fluid removal with dialysis as tolerated PRBC transfusion per protocol andtibiotics for pneumonia follow respiratory status (3) Anemia: Code(s): D64.9 - Anemia, unspecified Status: Chronic Assessment and Plan: chronic issue/problem partly related to ESRD but acute blood loss a concern (guaiac + stools) Epogen with HD PRBC transfusion per protocol GI recommendations noted -- no further endoscopy procedures planned follow trend H/H (4) Hypertension: Code(s): I10 - Essential (primary) hypertension Status: Chronic Assessment and Plan: reasonable control continue home medications - clonidine changed to PRN follow trend of hemodynamics (5) Diabetes: Code(s): E11.9 - Type 2 diabetes mellitus without complications Status: Chronic Assessment and Plan: follow accuchecks glycemic control per hospitalists Will continue to follow. Subjective Date/time seen: 01/27/23 11:01 Interval history: Follow-up for end stage renal disease on hemodialysis. Tolerated dialysis treatment yesterday evening without any issues or problems; started on antibiotics for possible aspiration pneumonia given frequent noted after meals in association with modified barium swallow and CXR findings; currently NPO until repeat MBS; no apparent distress noted. Exam Narrative: General: elderly and chronically ill-appearing female in NAD Heart: normal S1 and S2; no rub Lungs: coarse breath sounds with bibasilar crackles Abdomen: soft, nondistended, positive bowel sounds Extremities: no cyanosis or clubbing; 1+ edema Skin: warm and intact Objective Data Vital Signs Vital Signs: Vital Signs Temp Pulse Resp BP Pulse Ox O2 Del Method O2 Flow Rate 01/27/23 07:53 92 Nasal Cannula 3 01/27/23 08:46 92 Nasal Cannula 3 01/26/23 22:36 78 20 01/26/23 22:25 77 20 01/27/23 04:46 97.7 F 73 18 129/52 L 97 01/26/23 23:20 98.0 F 71 16 107/39 L 01/26/23 23:09 68 112/45 L 01/26/23 22:40 67 121/46 L 01/26/23 22:20 70 128/42 L 01/26/23 22:00 70 129/45 L 01/26/23 21:40 69 126/50 L 01/26/23 21:20 70 135/52 L 01/26/23 21:00 72 127/51 L 01/26/23 20:40 70 130/50 L 01/26/23 20:20 69 154/66 H 01/26/23 20:08 71 145/64 H 01/27/23 00:00 96.8 F L 71 18 90/52 L 93 01/26/23 19:55 98.2 F 71 16 153/66 H 01/26/23 19:55 2 01/26/23 20:00 70 18 96 Nasal Cannula 2 01/26/23 20:07 97.2 F L 73 20 155/46 H 97 Intake/Output Intake/Output: Intake & Output 01/24/23 01/25/23 01/26/23 01/27/23 23:59 23:59 23:59 23:59 Intake Total 205 1095 805 150 Output Total 2196 0 2000 0 1095 -1195 150 Meds/Results Medications: Active Medications Generic Name Dose Route Start Last Admin Trade Name Terrell PRN Reason Stop Dose Admin Acetaminophen 650 mg 01/19/23 20:33 01/21/23 13:24 Acetaminophen 325 Mg Tablet PO 650 mg Q6H PRN Administration Pain (Scale Score 1-3) Albuterol 2.5 mg 01/22/23 10:19 01/26/23 22:25 Albuterol Sulfate Neb 2.5 Mg/3 Ml Inh INHALATION 2.5 mg Q4HRT PRN Administration Shortness Of Breath Amlodipine Besylate 10 mg 01/20/23 09:00
--- NOTE | 2023-01-27 11:01 | P.PNNP_ITS ---
Progress Note: A&P Assessment and Plan (1) End stage renal disease: Code(s): N18.6 - End stage renal disease Status: Chronic Assessment and Plan: * HD yesterday * continue M/W/F dialysis schedule while hospitalized * follow electrolytes, volume status, and clearance (2) Acute on chronic respiratory failure with hypoxia: Code(s): J96.21 - Acute and chronic respiratory failure with hypoxia Status: Acute Assessment and Plan: * multifactorial etiology: * known hx of COPD * volume overload * aspiration pneumonia * pulmonary HTN * significant anemia on admission * on supplemental oxygen at baseline * fluid removal with dialysis as tolerated * PRBC transfusion per protocol * andtibiotics for pneumonia * follow respiratory status (3) Anemia: Code(s): D64.9 - Anemia, unspecified Status: Chronic Assessment and Plan: * chronic issue/problem * partly related to ESRD but acute blood loss a concern (guaiac + stools) * Epogen with HD * PRBC transfusion per protocol * GI recommendations noted -- no further endoscopy procedures planned * follow trend H/H (4) Hypertension: Code(s): I10 - Essential (primary) hypertension Status: Chronic Assessment and Plan: * reasonable control * continue home medications - clonidine changed to PRN * follow trend of hemodynamics (5) Diabetes: Code(s): E11.9 - Type 2 diabetes mellitus without complications Status: Chronic Assessment and Plan: * follow accuchecks * glycemic control per hospitalists Will continue to follow. Subjective Date/time seen: 01/27/23 11:01 Interval history: Follow-up for end stage renal disease on hemodialysis. Tolerated dialysis treatment yesterday evening without any issues or problems; started on antibiotics for possible aspiration pneumonia given frequent noted after meals in association with modified barium swallow and CXR findings; currently NPO until repeat MBS; no apparent distress noted. Exam Narrative: General: elderly and chronically ill-appearing female in NAD Heart: normal S1 and S2; no rub Lungs: coarse breath sounds with bibasilar crackles Abdomen: soft, nondistended, positive bowel sounds Extremities: no cyanosis or clubbing; 1+ edema Skin: warm and intact Objective Data Vital Signs Vital Signs: Vital Signs Temp Pulse Resp BP Pulse Ox O2 Del Method O2 Flow Rate 01/27/23 07:53 92 Nasal Cannula 3 01/27/23 08:46 92 Nasal Cannula 3 01/26/23 22:36 78 20 01/26/23 22:25 77 20 01/27/23 04:46 97.7 F 73 18 129/52 L 97 01/26/23 23:20 98.0 F 71 16 107/39 L 01/26/23 23:09 68 112/45 L 01/26/23 22:40 67 121/46 L 01/26/23 22:20 70 128/42 L 01/26/23 22:00 70 129/45 L 01/26/23 21:40 69 126/50 L 01/26/23 21:20 70 135/52 L 01/26/23 21:00 72 127/51 L 01/26/23 20:40 70 130/50 L 01/26/23 20:20 69 154/66 H 01/26/23 20:08 71 145/64 H 01/27/23 00:00 96.8 F L 71 18 90/52 L 93 01/26/23 19:55 98.2 F 71 16 153/66 H 01/26/23 19:55 2 01/26/23 20:00 70 18 96 Nasal Cannula 2 01/26/23 20:07 97.2 F L 73 20 155/46
[2023-01-27 11:43] LABS: Procalcitonin 1.6 ng/mL
[2023-01-27] MEDS: DEXTROSE 5%/0.9% SOD CHL 1,000 ML 45 ML IV CONT (16:04)
[2023-01-27] MEDS: LATANOPROST 0.005% OP SOLN 2.5 ML BTL 1 DROP EACH EYE (20:03)
[2023-01-27] MEDS: ALBUTEROL SULFATE NEB 2.5 MG/3 ML INH INHALATION (20:14)
[2023-01-28] VITALS (13 sets, daily range): BP systolic 128–150; BP diastolic 32–40; PULSE 66–83; RESP 15–20; TEMP 36.5–36.9; O2SAT 90–100
[2023-01-28 04:59] LABS: Basophils Absolute Auto 0.1 K/mm3 (0.0-0.1); Basophils Percent Auto 0.8 % (0.2-1.2); Eosinophils Absolute Auto 0.4 K/mm3 (0-0.3); Eosinophils Percent Auto 5.6 % (0-4.4); Hematocrit 28.8 % (37.0-47.0); Hemoglobin 8.3 g/dL (12.0-15.0); Immature Granulocyte Absolute 0.11 K/mm3 (0.00-0.031); Immature Granulocyte Percent A 1.4 % (0-0.5); Lymphocytes Absolute Auto 0.55 K/mm3 (0.9-3.2); Mean Corpuscular HGB Conc 28.8 g/dl (32-36); Mean Corpuscular Hemoglobin 29.5 pg (26-34); Mean Corpuscular Volume 102.5 fl (80-100); Mean Platelet Volume 10.5 fl (7.4-10.4); Monocytes Absolute Auto 0.8 K/mm3 (0.1-0.6); Monocytes Percent Auto 10.3 % (2.6-8.5); Neutrophils Absolute Auto 5.9 K/mm3 (1.3-6.7); Neutrophils Percent Auto 74.9 % (45.5-73.1); Platelet Count Result 278 k/mm3 (150-375); Red Blood Count 2.81 M/mm3 (4.2-5.4); Red Cell Distribution Width 16.7 % (11.5-14.5); White Blood Count 7.9 K/mm3 (4.5-10.0)
[2023-01-28 05:12] LABS: Anion Gap 8 mmol/L (8-16); Blood Urea Nitrogen 25 mg/dL (7-17); Carbon Dioxide 29 mmol/L (22-30); Chloride 103 mmol/L (98-107); Estimated CRCL calculation 7 ml/min; Estimated Glomerular Filt Rate 7; Glucose 69 mg/dL (65-110); Magnesium 2.1 mg/dL (1.6-2.3); Phosphorus 5.7 mg/dL (2.5-4.5); Potassium 4.5 mmol/L (3.4-5.0); Sodium 140 mmol/L (137-145)
[2023-01-28 05:20] LABS: Anisocytosis 1+ (NORMAL); Platelet Estimate Adequate (Adequate); Schistocytes None Seen (NORMAL)
--- NOTE | 2023-01-28 06:16 | PM.IMPN ---
Progress Note: A&P Assessment and Plan (1) End-stage renal disease on hemodialysis: Code(s): N18.6 - End stage renal disease; Z99.2 - Dependence on renal dialysis Status: Acute Assessment and Plan: M/W/F HD nephrology consulted (2) Hypertension: Code(s): I10 - Essential (primary) hypertension Status: Chronic Assessment and Plan: Blood pressures reviewed, stable SBP 150-154 mm hg, HR 70's Continue with home anti-hypertensives with amlodipine, lisinopril, and spironolactone Oral medications are hold for now due to dysphagia. IVP PRN medications ordered. (3) Hypothyroidism: Code(s): E03.9 - Hypothyroidism, unspecified Status: Acute Assessment and Plan: Continue levothyroxine (4) Chronic anemia: Code(s): D64.9 - Anemia, unspecified Status: Acute Assessment and Plan: chronic issue/problem partly related to ESRD but acute blood loss a concern (guaiac + stools) Epogen with HD PRBC transfusion per protocol GI recommendations noted -- no further endoscopy procedures planned follow trend H/H (5) Aspiration of food: Code(s): T17.928A - Food in respiratory tract, part unspecified causing other injury, initial encounter Status: Acute Assessment and Plan: Concerns for aspiration with eating. NPO now. Slow IVF D5NS at 45 ml per hour given no nutrition currently Medications changed to IV as appropriate and holding remaining PO medications. Speech on board, failed modified barium swallow. Congested cough this morning that patient says she usually does not have Chest XR ordered shows left middle and lower lobe infiltrate consistent with aspiration concerns Empirically placed on Rocephin and Flagyl Sputum ordered Loss of IV access yesterday and vascular community service specialist unable to obtain access. Will speak with speech today to see if she can take her medications crushed in pudding or applesauce vs placement of NG tube. Subjective Date/time seen: 01/28/23 06:16 Interval history: This is an 87-year-old female with end-stage renal disease on hemodialysis, chronic respiratory failure on 2 to 3 L nasal cannula, chronic obstructive pulmonary disease, pulmonary hypertension, diastolic dysfunction, hypertension, chronic anemia, diet-controlled diabetes, and dementia who presented to the emergency department for evaluation of shortness of breath. The patient provides the following history however it is somewhat limited by her significant hearing loss and underlying dementia. She missed dialysis this past Sunday for unclear reasons and today she only completed 1.5 hours of dialysis before dialysis staff members called EMS after she began complaining of shortness of breath. Upon arrival to the ED she was unable to say why she was brought in. She did mention vague abdominal discomfort and a CT of the abdomen and pelvis showed fecal impaction and likely atypical infection or aspiration in the lung bases with small bilateral pleural effusions. Labs were significant for hemoglobin and hematocrit of 5.3 and 17.3% respectively, sodium 136, potassium 3.9, troponin 0.045, proBNP 8200. EKG was negative for acute ST segment elevations and depressions and no significant changes were noted from previous tracings. Stool was Hemoccult positive according to the ED physician. The patient has been previously evaluated by GI with no obvious source of bleeding. She is being admitted in this setting for blood transfusion and close monitoring. At the time my evaluation her main complaint is that of fatigue. She has not noticed any obvious blood loss. She denies chest pain, pleuritic pain, palpitations, cough, nausea, vomiting, diarrhea, dysphagia, and concerns for aspiration. Interval history: 01/26: Patient seen reading a book at bedside. She is extremely hard of hearing his this makes my assessment difficult. She is alert and oriented to person, place, and year. She
--- NOTE | 2023-01-28 12:16 | PM.PNNEP ---
Progress Note: A&P Assessment and Plan (1) End stage renal disease: Code(s): N18.6 - End stage renal disease Status: Chronic Assessment and Plan: HD tomorrow continue M/W/F dialysis schedule while hospitalized follow electrolytes, volume status, and clearance (2) Acute on chronic respiratory failure with hypoxia: Code(s): J96.21 - Acute and chronic respiratory failure with hypoxia Status: Acute Assessment and Plan: multifactorial etiology: known hx of COPD volume overload aspiration pneumonia pulmonary HTN significant anemia on admission on supplemental oxygen at baseline fluid removal with dialysis as tolerated PRBC transfusion per protocol andtibiotics for pneumonia follow respiratory status (3) Anemia: Code(s): D64.9 - Anemia, unspecified Status: Chronic Assessment and Plan: chronic issue/problem partly related to ESRD but acute blood loss a concern (guaiac + stools) Epogen with HD PRBC transfusion per protocol GI recommendations noted -- no further endoscopy procedures planned follow trend H/H (4) Hypertension: Code(s): I10 - Essential (primary) hypertension Status: Chronic Assessment and Plan: reasonable control continue home medications - clonidine changed to PRN follow trend of hemodynamics (5) Diabetes: Code(s): E11.9 - Type 2 diabetes mellitus without complications Status: Chronic Assessment and Plan: follow accuchecks glycemic control per hospitalists Will continue to follow. Subjective Date/time seen: 01/28/23 12:16 Interval history: Follow-up for end stage renal disease on hemodialysis. Lost IV access so unable to receive any further IV fluids or IV medications; mentation seems to be doing pretty good at the time of my visit; nursing informs me that tentative plan is to place NG tube for medications as she is not safe for any type of oral intake based on speech therapy recommendations. Exam Narrative: General: elderly and chronically ill-appearing female in NAD Heart: normal S1 and S2; no rub Lungs: coarse breath sounds with bibasilar crackles Abdomen: soft, nondistended, positive bowel sounds Extremities: no cyanosis or clubbing; trace edema Skin: no rash Objective Data Vital Signs Vital Signs: Vital Signs Temp Pulse Resp BP Pulse Ox O2 Del Method O2 Flow Rate 01/28/23 12:05 98.4 F 72 20 150/35 H 97 01/28/23 08:12 91 Nasal Cannula 3 08/27/23 04:18 98 F 66 15 128/32 L 91 01/27/23 20:00 72 18 93 Nasal Cannula 3 01/27/23 20:24 97.6 F 70 17 130/32 L 100 01/27/23 20:14 79 20 Intake/Output Intake/Output: Intake & Output 01/25/23 01/26/23 01/27/23 01/28/23 23:59 23:59 23:59 23:59 Intake Total 1095 805 250 Output Total 0 2000 0 Balance 1095 -1195 250 Meds/Results Medications: Active Medications Generic Name Dose Route Start Last Admin Trade Name Freq PRN Reason Stop Dose Admin Acetaminophen 650 mg 01/28/23 13:12 Acetaminophen 325 Mg Tablet FEED TUBE Q6H PRN Pain (Scale Score 1-3) Albuterol 2.5 mg 01/22/23 10:19 01/27/23 20:14 Albuterol Sulfate Neb 2.5 Mg/3 Ml Inh INHALATION 2.5 mg Q4HRT PRN Administration Shortness Of Breath Amlodipine Besylate 10 mg 01/29/23 09:00 Amlodipine Besylate 5 Mg Tablet FEED TUBE QAM LAUREN Atorvastatin Calcium 20 mg 01/28/23 21:00 Atorvastatin 20 Mg Tablet FEED TUBE HS LAUREN Buspirone HCl 7.5 mg 01/20/23 09:00 01/27/23 10:30 Buspirone Hcl 2.5 Mg Tablet PO 02/19/23 08:59 Not Given BID LAUREN Clonidine HCl 0.1 mg 01/28/23 13:02 Clonidine Hcl 0.1 Mg Tablet FEED TUBE Q8H PRN systolic above 160 Docusate Sodium 100 mg 01/28/23 21:00 Docusate Sodium Liq 100 Mg/10 Ml Udc FEED TUBE Q12HR LAUREN Ergocalciferol 50,000 units 01/29/23 09:00 Ergocalciferol 50
--- NOTE | 2023-01-28 12:16 | P.PNNP_ITS ---
Progress Note: A&P Assessment and Plan (1) End stage renal disease: Code(s): N18.6 - End stage renal disease Status: Chronic Assessment and Plan: * HD tomorrow * continue M/W/F dialysis schedule while hospitalized * follow electrolytes, volume status, and clearance (2) Acute on chronic respiratory failure with hypoxia: Code(s): J96.21 - Acute and chronic respiratory failure with hypoxia Status: Acute Assessment and Plan: * multifactorial etiology: * known hx of COPD * volume overload * aspiration pneumonia * pulmonary HTN * significant anemia on admission * on supplemental oxygen at baseline * fluid removal with dialysis as tolerated * PRBC transfusion per protocol * andtibiotics for pneumonia * follow respiratory status (3) Anemia: Code(s): D64.9 - Anemia, unspecified Status: Chronic Assessment and Plan: * chronic issue/problem * partly related to ESRD but acute blood loss a concern (guaiac + stools) * Epogen with HD * PRBC transfusion per protocol * GI recommendations noted -- no further endoscopy procedures planned * follow trend H/H (4) Hypertension: Code(s): I10 - Essential (primary) hypertension Status: Chronic Assessment and Plan: * reasonable control * continue home medications - clonidine changed to PRN * follow trend of hemodynamics (5) Diabetes: Code(s): E11.9 - Type 2 diabetes mellitus without complications Status: Chronic Assessment and Plan: * follow accuchecks * glycemic control per hospitalists Will continue to follow. Subjective Date/time seen: 01/28/23 12:16 Interval history: Follow-up for end stage renal disease on hemodialysis. Lost IV access so unable to receive any further IV fluids or IV medications; mentation seems to be doing pretty good at the time of my visit; nursing informs me that tentative plan is to place NG tube for medications as she is not safe for any type of oral intake based on speech therapy recommendations. Exam Narrative: General: elderly and chronically ill-appearing female in NAD Heart: normal S1 and S2; no rub Lungs: coarse breath sounds with bibasilar crackles Abdomen: soft, nondistended, positive bowel sounds Extremities: no cyanosis or clubbing; trace edema Skin: no rash Objective Data Vital Signs Vital Signs: Vital Signs Temp Pulse Resp BP Pulse Ox O2 Del Method O2 Flow Rate 01/28/23 12:05 98.4 F 72 20 150/35 H 97 08/27/23 08:12 91 Nasal Cannula 3 01/28/23 04:18 98 F 66 15 128/32 L 91 01/27/23 20:00 72 18 93 Nasal Cannula 3 01/27/23 20:24 97.6 F 70 17 130/32 L 100 01/27/23 20:14 79 20 Intake/Output Intake/Output: Intake & Output 01/25/23 01/26/23 01/27/23 01/28/23 23:59 23:59 23:59 23:59 Intake Total 1095 805 250 Output Total 0 2000 0 Balance 1095 -1195 250 Meds/Results Medications: Active Medications Generic Name Dose Route Start Last Admin Trade Name Freq PRN Reason Stop Dose Admin Acetaminophen 650 mg 01/28/23 13:12 Acetaminophen 325 Mg Tablet FEED TUBE Q6H PRN Pain (Scale Score 1-
--- NOTE | 2023-01-28 13:26 | PC.NURSE ---
After placement of NG tube, patient oxygen saturation noted to be 64%. Patient stating, I can't breathe. Non-rebreather applied and provider notified. Provider came to bedside and patient was weaned back to original setting of 3LNC with saturation of 98%.
[2023-01-28] MEDS: ACETYLCYSTEINE 20% INHAL SOLN 800 MG/4 ML VIAL 200 MG INHALATION ×2 (19:16→23:42)
[2023-01-28] MEDS: ALBUTEROL SULFATE NEB 2.5 MG/3 ML INH INHALATION ×2 (19:17→22:48)
[2023-01-28] MEDS: LATANOPROST 0.005% OP SOLN 2.5 ML BTL 1 DROP EACH EYE (20:37)
[2023-01-28] MEDS: FAMOTIDINE 20 MG TABLET FEED TUBE (20:39)
--- NOTE | 2023-01-28 23:06 | P.PNCROSS_ITS ---
Event Note Event Note Event Note: Patient having increased cough and increased oxygen demand. Previous night grant ent was on 3 liters/minute, today she was on 4 liters/minute and tonight it has been increased to 6 liters/minute. IV access has been lost and was not able to be reestablished after countless tries. For this reason IV antibiotics were discontinued. Patient has NG tube in place but no antibiotics by NG tube noted on profile. Patient NPO due to aspiration, not on tube feeds and no access for IV fluids. RN requested additional Mucomyst nebs as this helped to loosen secretions earlier tonight but it was a one time order. I assessed patient and she was experiencing mild respiratory difficulty on 6 liters/minute nasal cannula. She was coughing but not bringing much up. I established IV saline lock in left foot on second attempt and orders were placed for Mucomyst nebs, IV fluids D5NS at 45 mL/hr, IV Synthroid and restarted IV Rocephin and Flagyl.
[2023-01-28] MEDS: DEXTROSE 5%/0.9% SOD CHL 1,000 ML 45 ML IV CONT (23:33)
[2023-01-28] MEDS: metroNIDAZOLE 500 MG/ISO 100ML 500 MG/100 ML BAG 100 MG IVPB (23:33)
[2023-01-28] MEDS: WATER FOR IRRIGATION, STERILE 1,000 ML BOTTLE 1000 ML (23:33)
[2023-01-29] VITALS (38 sets, daily range): BP systolic 108–161; BP diastolic 23–95; PULSE 61–83; RESP 18–24; TEMP 35.9–37.2; O2SAT 94–100; BMI 25.4
[2023-01-29] MEDS: ACETYLCYSTEINE 20% INHAL SOLN 800 MG/4 ML VIAL 200 MG INHALATION ×4 (02:28→20:07)
[2023-01-29] MEDS: ALBUTEROL SULFATE NEB 2.5 MG/3 ML INH INHALATION ×2 (02:28→20:07)
[2023-01-29 05:59] LABS: Basophils Absolute Auto 0.1 K/mm3 (0.0-0.1); Basophils Percent Auto 0.7 % (0.2-1.2); Eosinophils Absolute Auto 0.3 K/mm3 (0-0.3); Eosinophils Percent Auto 4.7 % (0-4.4); Hematocrit 28.8 % (37.0-47.0); Hemoglobin 8.4 g/dL (12.0-15.0); Immature Granulocyte Percent A 1.4 % (0-0.5); Lymphocytes Absolute Auto 0.47 K/mm3 (0.9-3.2); Lymphocytes Percent Auto 6.5 % (18.3-44.2); Mean Corpuscular HGB Conc 29.2 g/dl (32-36); Mean Corpuscular Hemoglobin 29.5 pg (26-34); Mean Corpuscular Volume 101.1 fl (80-100); Mean Platelet Volume 10.6 fl (7.4-10.4); Monocytes Absolute Auto 0.7 K/mm3 (0.1-0.6); Monocytes Percent Auto 9.5 % (2.6-8.5); Neutrophils Absolute Auto 5.6 K/mm3 (1.3-6.7); Neutrophils Percent Auto 77.2 % (45.5-73.1); Platelet Count Result 311 k/mm3 (150-375); Red Blood Count 2.85 M/mm3 (4.2-5.4); Red Cell Distribution Width 16.5 % (11.5-14.5); White Blood Count 7.3 K/mm3 (4.5-10.0)
[2023-01-29] MEDS: metroNIDAZOLE 500 MG/ISO 100ML 500 MG/100 ML BAG 100 MG IVPB ×2 (06:11→12:44)
[2023-01-29] MEDS: LEVOTHYROXINE SODIUM INJ 100 MCG/5 ML VIAL 50 MCG IV PUSH (06:11)
[2023-01-29 06:17] LABS: Anion Gap 11 mmol/L (8-16); Blood Urea Nitrogen 39 mg/dL (7-17); Calcium 7.8 mg/dL (8.4-10.2); Carbon Dioxide 27 mmol/L (22-30); Chloride 102 mmol/L (98-107); Estimated CRCL calculation 5 ml/min; Estimated Glomerular Filt Rate 5; Glucose 80 mg/dL (65-110); Magnesium 2.2 mg/dL (1.6-2.3); Potassium 4.8 mmol/L (3.4-5.0); Sodium 140 mmol/L (137-145)
[2023-01-29 06:50] LABS: Hypochromasia 2+ (NORMAL); Microcytosis 2+ (NORMAL); Ovalocytes 1+ (NORMAL); Platelet Estimate Adequate (Adequate); Schistocytes None Seen (NORMAL); Tear Drop Cells 1+ (NORMAL)
--- NOTE | 2023-01-29 07:23 | PM.IMPN ---
Progress Note: A&P Assessment and Plan (1) End-stage renal disease on hemodialysis: Code(s): N18.6 - End stage renal disease; Z99.2 - Dependence on renal dialysis Status: Acute Assessment and Plan: M/W/F HD nephrology consulted (2) Hypertension: Code(s): I10 - Essential (primary) hypertension Status: Chronic Assessment and Plan: Blood pressures reviewed, stable SBP 150-154 mm hg, HR 70's Continue with home anti-hypertensives with amlodipine, lisinopril, and spironolactone Oral medications are hold for now due to dysphagia. IVP PRN medications ordered. (3) Hypothyroidism: Code(s): E03.9 - Hypothyroidism, unspecified Status: Acute Assessment and Plan: Continue levothyroxine (4) Chronic anemia: Code(s): D64.9 - Anemia, unspecified Status: Acute Assessment and Plan: chronic issue/problem partly related to ESRD but acute blood loss a concern (guaiac + stools) Epogen with HD PRBC transfusion per protocol GI recommendations noted -- no further endoscopy procedures planned follow trend H/H (5) Aspiration of food: Code(s): T17.928A - Food in respiratory tract, part unspecified causing other injury, initial encounter Status: Acute Assessment and Plan: Concerns for aspiration with eating. NPO now. Slow IVF D5NS at 45 ml per hour given no nutrition currently Medications changed to IV as appropriate and holding remaining PO medications. Speech on board, failed modified barium swallow. Congested cough this morning that patient says she usually does not have Chest XR ordered shows left middle and lower lobe infiltrate consistent with aspiration concerns Empirically placed on Rocephin and Flagyl Sputum ordered and pending IV access was re-established last night after increased oxygen requirements of up to 6 L NC, now back to 3 L NC. IV antibiotics resumes, IV fluids D5NS at 45 ml per hour. Plan Feeding:NPO, IV dextrose Analgesia:Tylenol Thromboembolic prophylaxis: SCDs Ulcer prophylaxis: Protonix Glycemic control: N/A Bowel regimen: Miralax on hold due to NPO Lines: PIV lower leg Antibiotics: Flagyl and Rocephin Subjective Date/time seen: 01/29/23 07:23 Interval history: This is an 87-year-old female with end-stage renal disease on hemodialysis, chronic respiratory failure on 2 to 3 L nasal cannula, chronic obstructive pulmonary disease, pulmonary hypertension, diastolic dysfunction, hypertension, chronic anemia, diet-controlled diabetes, and dementia who presented to the emergency department for evaluation of shortness of breath. The patient provides the following history however it is somewhat limited by her significant hearing loss and underlying dementia. She missed dialysis this past Sunday for unclear reasons and today she only completed 1.5 hours of dialysis before dialysis staff members called EMS after she began complaining of shortness of breath. Upon arrival to the ED she was unable to say why she was brought in. She did mention vague abdominal discomfort and a CT of the abdomen and pelvis showed fecal impaction and likely atypical infection or aspiration in the lung bases with small bilateral pleural effusions. Labs were significant for hemoglobin and hematocrit of 5.3 and 17.3% respectively, sodium 136, potassium 3.9, troponin 0.045, proBNP 8200. EKG was negative for acute ST segment elevations and depressions and no significant changes were noted from previous tracings. Stool was Hemoccult positive according to the ED physician. The patient has been previously evaluated by GI with no obvious source of bleeding. She is being admitted in this setting for blood transfusion and close monitoring. At the time my evaluation her main complaint is that of fatigue. She has not noticed any obvious blood loss. She denies chest pain, pleuritic pain, palpitations, cough, nausea, vomiting, diarrhea, dysphagia, and concerns for
--- NOTE | 2023-01-29 14:05 | PC.NURSE ---
Report called to lab rn.
--- NOTE | 2023-01-29 14:30 | PC.NURSE ---
To dialysis via bed. Oxygen on high bree nasal canula 3 liters.
--- NOTE | 2023-01-29 14:46 | PC.NURSE ---
Nursing assessments by Neo Heller/student nurse/[facility] reviewed. Patient has been taken to hemodialysis via bed at this time in stable condition. Neo will continue purposeful rounding and will report to assigned RN at end of clinical day.
--- NOTE | 2023-01-29 15:45 | PM.PNNEP ---
Progress Note: A&P Assessment and Plan (1) End stage renal disease: Code(s): N18.6 - End stage renal disease Status: Chronic Assessment and Plan: HD today continue M/W/F dialysis schedule while hospitalized follow electrolytes, volume status, and clearance (2) Acute on chronic respiratory failure with hypoxia: Code(s): J96.21 - Acute and chronic respiratory failure with hypoxia Status: Acute Assessment and Plan: fluctuating multifactorial etiology: known hx of COPD volume overload aspiration pneumonia pulmonary HTN significant anemia on admission on supplemental oxygen at baseline fluid removal with dialysis as tolerated PRBC transfusion per protocol antibiotics for pneumonia follow respiratory status (3) Anemia: Code(s): D64.9 - Anemia, unspecified Status: Chronic Assessment and Plan: chronic issue/problem partly related to ESRD but acute blood loss a concern (guaiac + stools) Epogen with HD PRBC transfusion per protocol GI recommendations noted -- no further endoscopy procedures planned follow trend H/H (4) Hypertension: Code(s): I10 - Essential (primary) hypertension Status: Chronic Assessment and Plan: reasonable control continue home medications - clonidine changed to PRN follow trend of hemodynamics (5) Diabetes: Code(s): E11.9 - Type 2 diabetes mellitus without complications Status: Chronic Assessment and Plan: follow accuchecks glycemic control per hospitalists Will continue to follow. Subjective Date/time seen: 01/29/23 15:45 Interval history: Follow-up for end stage renal disease on hemodialysis. Tolerating dialysis treatment at the time of my visit (seen on HD at 3:35PM);events/issues overnight noted -- worsening hypoxia and IV access re-established in her lower extremity with subsequent re-institution of IVFs and IV antibiotics; oxygen needs back to baseline and otherwise without complaint currently. Exam Narrative: General: elderly and chronically ill-appearing female in NAD Heart: normal S1 and S2; no rub Lungs: coarse breath sounds with a few bibasilar crackles Abdomen: soft, nondistended, positive bowel sounds Extremities: no cyanosis or clubbing; trace edema Skin: no nodules Objective Data Vital Signs Vital Signs: Vital Signs Temp Pulse Resp BP Pulse Ox O2 Del Method O2 Flow Rate 01/29/23 15:40 66 148/51 H 01/29/23 15:20 62 150/50 H 01/29/23 15:00 66 155/56 H 01/29/23 14:56 67 158/54 H 01/29/23 14:40 98.5 F 67 18 156/58 H 01/29/23 14:40 3 01/29/23 13:18 75 20 01/29/23 13:14 69 20 01/29/23 12:00 71 01/29/23 08:03 69 01/29/23 08:59 66 20 98 High Flow Therapy with Na 3 01/29/23 07:15 98.9 F 67 24 H 137/23 L 98 01/29/23 08:08 20 94 High Flow Therapy with Na 3 01/29/23 07:58 78 20 01/29/23 07:54 72 20 01/29/23 07:54 72 20 94 Nasal Cannula 3 01/29/23 06:00 96.9 F L 76 18 139/35 L 99 01/29/23 04:00 73 01/29/23 00:00 77 01/29/23 02:38 78 18 01/29/23 02:29 76 18 01/28/23 23:49 81 18 01/28/23 23:43 80 18 01/28/23 23:07 72 20 148/40 H 100 01/28/23 22:55 95 High Flow Nasal Cannula 6 01/28/23 22:55 78 18 01/28/23 22:45 83 18 01/28/23 20:00 72 18 90 Nasal Cannula 4 01/28/23 20:00 72 01/28/23 20:14 97.7 F 75 16 144/35 H 90 01/28/23 19:30 80 18 01/28/23 19:19 75 18 Intake/Output Intake/Output: Intake & Output 01/26/23 01/27/23 01/28/23 01/29/23 23:59 23:59 23:59 23:59 Intake Total 805 250 0 250 Output Total 2000 0 0 Balance -1195 250 0 250 Meds/Results Medications: Active Medications Generic Name Dose Route Start Last Admin Trade Name Freq PRN Reason Stop Dos
--- NOTE | 2023-01-29 15:45 | P.PNNP_ITS ---
Progress Note: A&P Assessment and Plan (1) End stage renal disease: Code(s): N18.6 - End stage renal disease Status: Chronic Assessment and Plan: * HD today * continue M/W/F dialysis schedule while hospitalized * follow electrolytes, volume status, and clearance (2) Acute on chronic respiratory failure with hypoxia: Code(s): J96.21 - Acute and chronic respiratory failure with hypoxia Status: Acute Assessment and Plan: * fluctuating * multifactorial etiology: * known hx of COPD * volume overload * aspiration pneumonia * pulmonary HTN * significant anemia on admission * on supplemental oxygen at baseline * fluid removal with dialysis as tolerated * PRBC transfusion per protocol * antibiotics for pneumonia * follow respiratory status (3) Anemia: Code(s): D64.9 - Anemia, unspecified Status: Chronic Assessment and Plan: * chronic issue/problem * partly related to ESRD but acute blood loss a concern (guaiac + stools) * Epogen with HD * PRBC transfusion per protocol * GI recommendations noted -- no further endoscopy procedures planned * follow trend H/H (4) Hypertension: Code(s): I10 - Essential (primary) hypertension Status: Chronic Assessment and Plan: * reasonable control * continue home medications - clonidine changed to PRN * follow trend of hemodynamics (5) Diabetes: Code(s): E11.9 - Type 2 diabetes mellitus without complications Status: Chronic Assessment and Plan: * follow accuchecks * glycemic control per hospitalists Will continue to follow. Subjective Date/time seen: 01/29/23 15:45 Interval history: Follow-up for end stage renal disease on hemodialysis. Tolerating dialysis treatment at the time of my visit (seen on HD at 3:35PM);events/issues overnight noted -- worsening hypoxia and IV access re- established in her lower extremity with subsequent re-institution of IVFs and IV antibiotics; oxygen needs back to baseline and otherwise without complaint curr ently. Exam Narrative: General: elderly and chronically ill-appearing female in NAD Heart: normal S1 and S2; no rub Lungs: coarse breath sounds with a few bibasilar crackles Abdomen: soft, nondistended, positive bowel sounds Extremities: no cyanosis or clubbing; trace edema Skin: no nodules Objective Data Vital Signs Vital Signs: Vital Signs Temp Pulse Resp BP Pulse Ox O2 Del Method O2 Flow Rate 01/29/23 15:40 66 148/51 H 01/29/23 15:20 62 150/50 H 01/29/23 15:00 66 155/56 H 01/29/23 14:56 67 158/54 H 01/29/23 14:40 98.5 F 67 18 156/58 H 01/29/23 14:40 3 01/29/23 13:18 75 20 01/29/23 13:14 69 20 01/29/23 12:00 71 01/29/23 08:03 69 01/29/23 08:59 66 20 98 High Flow Therapy with Na 3 01/29/23 07:15 98.9 F 67 24 H 137/23 L 98 01/29/23 08:08 20 94 High Flow Therapy with Na 3 01/29/23 07:58 78 20 01/29/23 07:54 72 20 01/29/23 07:54 72 20 94 Nasal Cannula 3 01/29/23 06:00 96.9 F L 76 18 139/35 L 99 01/29/23 04:00 73 01/29/23 00:00 77 01/29/23 02:38 78 18 01/29/23 02:29 76 18
[2023-01-29] MEDS: EPOETIN ALFA 10,000 UNITS/ML VIAL 10000 UNITS IV PUSH (15:50)
--- NOTE | 2023-01-29 18:40 | PC.NURSE ---
Returned from dialysis via bed.
[2023-01-29] MEDS: LATANOPROST 0.005% OP SOLN 2.5 ML BTL 1 DROP EACH EYE (21:19)
[2023-01-30] VITALS (17 sets, daily range): BP systolic 110–151; BP diastolic 38–94; PULSE 65–88; RESP 16–20; TEMP 36.5–36.8; O2SAT 92–99
[2023-01-30] MEDS: ACETYLCYSTEINE 20% INHAL SOLN 800 MG/4 ML VIAL 200 MG INHALATION ×4 (02:00→20:12)
[2023-01-30] MEDS: ALBUTEROL SULFATE NEB 2.5 MG/3 ML INH INHALATION ×4 (02:00→20:11)
--- NOTE | 2023-01-30 06:56 | PC.NURSE ---
Documentation for night 01/29 by Kana Lopes reviewed by this nurse.
--- NOTE | 2023-01-30 06:57 | PM.IMPN ---
Progress Note: A&P Assessment and Plan (1) End-stage renal disease on hemodialysis: Code(s): N18.6 - End stage renal disease; Z99.2 - Dependence on renal dialysis Status: Acute Assessment and Plan: M/W/F HD nephrology consulted (2) Hypertension: Code(s): I10 - Essential (primary) hypertension Status: Chronic Assessment and Plan: Blood pressures reviewed, stable SBP 150-154 mm hg, HR 70's Continue with home anti-hypertensives with amlodipine, lisinopril, and spironolactone Oral medications are hold for now due to dysphagia. IVP PRN medications ordered. (3) Hypothyroidism: Code(s): E03.9 - Hypothyroidism, unspecified Status: Acute Assessment and Plan: Continue levothyroxine (4) Chronic anemia: Code(s): D64.9 - Anemia, unspecified Status: Acute Assessment and Plan: chronic issue/problem partly related to ESRD but acute blood loss a concern (guaiac + stools) Epogen with HD PRBC transfusion per protocol GI recommendations noted -- no further endoscopy procedures planned follow trend H/H (5) Aspiration of food: Code(s): T17.928A - Food in respiratory tract, part unspecified causing other injury, initial encounter Status: Acute Assessment and Plan: Concerns for aspiration with eating. NPO now. Slow IVF D5NS at 45 ml per hour given no nutrition currently Medications changed to IV as appropriate and holding remaining PO medications. Speech on board, failed modified barium swallow. Congested cough this morning that patient says she usually does not have Chest XR ordered shows left middle and lower lobe infiltrate consistent with aspiration concerns Empirically placed on Rocephin and Flagyl Sputum ordered and pending Patient's son said she has had episodes of aspiration pna prior to this admission. Wondering if a PEG tube would be a better option for her. IV access was re-established last night after increased oxygen requirements of up to 6 L NC, now back to 3 L NC. IV antibiotics resumes, IV fluids D5NS at 45 ml per hour. Plan Feeding:NPO, IV dextrose Analgesia:Tylenol Thromboembolic prophylaxis: SCDs Ulcer prophylaxis: Protonix Glycemic control: N/A Bowel regimen: Miralax on hold due to NPO Lines: PIV lower leg Antibiotics: Flagyl and Rocephin Subjective Date/time seen: 01/30/23 06:57 Interval history: This is an 87-year-old female with end-stage renal disease on hemodialysis, chronic respiratory failure on 2 to 3 L nasal cannula, chronic obstructive pulmonary disease, pulmonary hypertension, diastolic dysfunction, hypertension, chronic anemia, diet-controlled diabetes, and dementia who presented to the emergency department for evaluation of shortness of breath. The patient provides the following history however it is somewhat limited by her significant hearing loss and underlying dementia. She missed dialysis this past Sunday for unclear reasons and today she only completed 1.5 hours of dialysis before dialysis staff members called EMS after she began complaining of shortness of breath. Upon arrival to the ED she was unable to say why she was brought in. She did mention vague abdominal discomfort and a CT of the abdomen and pelvis showed fecal impaction and likely atypical infection or aspiration in the lung bases with small bilateral pleural effusions. Labs were significant for hemoglobin and hematocrit of 5.3 and 17.3% respectively, sodium 136, potassium 3.9, troponin 0.045, proBNP 8200. EKG was negative for acute ST segment elevations and depressions and no significant changes were noted from previous tracings. Stool was Hemoccult positive according to the ED physician. The patient has been previously evaluated by GI with no obvious source of bleeding. She is being admitted in this setting for blood transfusion and close monitoring. At the time my evaluation her main complaint is that of fatigue. She has not notic
[2023-01-30 07:11] LABS: Basophils Percent Auto 0.7 % (0.2-1.2); Eosinophils Absolute Auto 0.5 K/mm3 (0-0.3); Hematocrit 29.3 % (37.0-47.0); Hemoglobin 8.4 g/dL (12.0-15.0); Immature Granulocyte Absolute 0.05 K/mm3 (0.00-0.031); Immature Granulocyte Percent A 0.8 % (0-0.5); Lymphocytes Absolute Auto 0.43 K/mm3 (0.9-3.2); Lymphocytes Percent Auto 7.2 % (18.3-44.2); Mean Corpuscular HGB Conc 28.7 g/dl (32-36); Mean Corpuscular Hemoglobin 29.2 pg (26-34); Mean Corpuscular Volume 101.7 fl (80-100); Mean Platelet Volume 10.1 fl (7.4-10.4); Monocytes Absolute Auto 0.5 K/mm3 (0.1-0.6); Neutrophils Absolute Auto 4.5 K/mm3 (1.3-6.7); Neutrophils Percent Auto 74.3 % (45.5-73.1); Platelet Count Result 263 k/mm3 (150-375); Red Blood Count 2.88 M/mm3 (4.2-5.4); Red Cell Distribution Width 16.6 % (11.5-14.5)
[2023-01-30 07:24] LABS: Alanine Aminotransferase 7 U/L (6-35); Albumin Level 3.3 g/dL (3.5-5.1); Alkaline Phosphatase 66 U/L (38-126); Anion Gap 7 mmol/L (8-16); Aspartate Amino Transferase 16 U/L (14-36); Bilirubin,Total 0.3 mg/dL (0.2-1.3); Blood Urea Nitrogen 15 mg/dL (7-17); Carbon Dioxide 30 mmol/L (22-30); Chloride 105 mmol/L (98-107); Estimated CRCL calculation 9 ml/min; Estimated Glomerular Filt Rate 10; Glucose 67 mg/dL (65-110); Magnesium 2.1 mg/dL (1.6-2.3); Phosphorus 4.7 mg/dL (2.5-4.5); Potassium 4.4 mmol/L (3.4-5.0); Sodium 142 mmol/L (137-145)
[2023-01-30] MEDS: PANTOPRAZOLE SODIUM IV 40 MG VIAL IV PUSH (08:07)
--- NOTE | 2023-01-30 12:05 | P.PNNP_ITS ---
Progress Note: A&P Assessment and Plan (1) End stage renal disease: Code(s): N18.6 - End stage renal disease Status: Chronic Assessment and Plan: * HD tomorrow * continue M/W/F dialysis schedule while hospitalized * follow electrolytes, volume status, and clearance (2) Acute on chronic respiratory failure with hypoxia: Code(s): J96.21 - Acute and chronic respiratory failure with hypoxia Status: Acute Assessment and Plan: * improving if not stable * multifactorial etiology: * known hx of COPD * volume overload * aspiration pneumonia * pulmonary HTN * significant anemia on admission * on supplemental oxygen at baseline * fluid removal with dialysis as tolerated * PRBC transfusion per protocol * antibiotics for pneumonia * follow respiratory status (3) Anemia: Code(s): D64.9 - Anemia, unspecified Status: Chronic Assessment and Plan: * chronic issue/problem * partly related to ESRD but acute blood loss a concern (guaiac + stools) * Epogen with HD * PRBC transfusion per protocol * GI recommendations noted -- no further endoscopy procedures planned * follow trend H/H (4) Hypertension: Code(s): I10 - Essential (primary) hypertension Status: Chronic Assessment and Plan: * reasonable control * continue home medications - clonidine changed to PRN * follow trend of hemodynamics (5) Diabetes: Code(s): E11.9 - Type 2 diabetes mellitus without complications Status: Chronic Assessment and Plan: * follow accuchecks * glycemic control per hospitalists Will continue to follow. Subjective Date/time seen: 01/30/23 12:05 Interval history: Follow-up for end stage renal disease on hemodialysis. Tolerated dialysis treatment yesterday without any issues or problems; mentation seems stable/at baseline at the time of my visit; remains NPO due to concerns for aspiration; noted plans for repeat modified barium swallow test tomorrow -- if she fails, next intervention maybe placement of a G-tube. Exam Narrative: General: elderly and chronically ill-appearing female in NAD Heart: normal S1 and S2; no rub Lungs: coarse breath sounds with a few bibasilar crackles Abdomen: soft, nondistended, positive bowel sounds Extremities: no cyanosis or clubbing; trace edema Skin: no rash Objective Data Vital Signs Vital Signs: Vital Signs Temp Pulse Resp BP Pulse Ox O2 Del Method O2 Flow Rate 01/30/23 08:07 18 92 Nasal Cannula 2 01/30/23 08:04 71 01/30/23 08:35 77 18 01/30/23 08:29 95 Nasal Cannula 2 01/30/23 08:18 72 18 01/30/23 04:00 70 01/30/23 03:54 98.3 F 65 18 138/38 L 94 01/29/23 21:35 96 Nasal Cannula 2 01/30/23 02:10 73 20 01/30/23 02:00 77 20 01/30/23 00:00 71 01/29/23 20:01 67 01/29/23 20:00 99 Nasal Cannula 3 01/29/23 20:21 69 20 01/29/23 20:12 66 99 Nasal Cannula 4 01/29/23 20:08 66 20 01/29/23 19:59 96.7 F L 68 18 135/38 L 100 01/29/23 18:56 97.2 F L 64 18 137/35 L 99 01/29/23 18:11 64 124/74 01/29/23 18:00 65 143/81 H 01/29/23 17:40 61 137/35 L
--- NOTE | 2023-01-30 12:05 | PM.PNNEP ---
Progress Note: A&P Assessment and Plan (1) End stage renal disease: Code(s): N18.6 - End stage renal disease Status: Chronic Assessment and Plan: HD tomorrow continue M/W/F dialysis schedule while hospitalized follow electrolytes, volume status, and clearance (2) Acute on chronic respiratory failure with hypoxia: Code(s): J96.21 - Acute and chronic respiratory failure with hypoxia Status: Acute Assessment and Plan: improving if not stable multifactorial etiology: known hx of COPD volume overload aspiration pneumonia pulmonary HTN significant anemia on admission on supplemental oxygen at baseline fluid removal with dialysis as tolerated PRBC transfusion per protocol antibiotics for pneumonia follow respiratory status (3) Anemia: Code(s): D64.9 - Anemia, unspecified Status: Chronic Assessment and Plan: chronic issue/problem partly related to ESRD but acute blood loss a concern (guaiac + stools) Epogen with HD PRBC transfusion per protocol GI recommendations noted -- no further endoscopy procedures planned follow trend H/H (4) Hypertension: Code(s): I10 - Essential (primary) hypertension Status: Chronic Assessment and Plan: reasonable control continue home medications - clonidine changed to PRN follow trend of hemodynamics (5) Diabetes: Code(s): E11.9 - Type 2 diabetes mellitus without complications Status: Chronic Assessment and Plan: follow accuchecks glycemic control per hospitalists Will continue to follow. Subjective Date/time seen: 01/30/23 12:05 Interval history: Follow-up for end stage renal disease on hemodialysis. Tolerated dialysis treatment yesterday without any issues or problems; mentation seems stable/at baseline at the time of my visit; remains NPO due to concerns for aspiration; noted plans for repeat modified barium swallow test tomorrow -- if she fails, next intervention maybe placement of a G-tube. Exam Narrative: General: elderly and chronically ill-appearing female in NAD Heart: normal S1 and S2; no rub Lungs: coarse breath sounds with a few bibasilar crackles Abdomen: soft, nondistended, positive bowel sounds Extremities: no cyanosis or clubbing; trace edema Skin: no rash Objective Data Vital Signs Vital Signs: Vital Signs Temp Pulse Resp BP Pulse Ox O2 Del Method O2 Flow Rate 01/30/23 08:07 18 92 Nasal Cannula 2 01/30/23 08:04 71 01/30/23 08:35 77 18 01/30/23 08:29 95 Nasal Cannula 2 01/30/23 08:18 72 18 01/30/23 04:00 70 01/30/23 03:54 98.3 F 65 18 138/38 L 94 01/29/23 21:35 96 Nasal Cannula 2 01/30/23 02:10 73 20 01/30/23 02:00 77 20 01/30/23 00:00 71 01/29/23 20:01 67 01/29/23 20:00 99 Nasal Cannula 3 01/29/23 20:21 69 20 01/29/23 20:12 66 99 Nasal Cannula 4 01/29/23 20:08 66 20 01/29/23 19:59 96.7 F L 68 18 135/38 L 100 01/29/23 18:56 97.2 F L 64 18 137/35 L 99 01/29/23 18:11 64 124/74 01/29/23 18:00 65 143/81 H 01/29/23 17:40 61 137/35 L 01/29/23 17:20 83 117/59 L 01/29/23 18:20 98.1 F 70 18 108/95 H 01/29/23 17:00 61 122/44 L 01/29/23 16:40 66 152/55 H 01/29/23 16:20 62 140/52 L 01/29/23 16:03 66 01/29/23 16:00 64 161/54 H 01/29/23 15:40 66 148/51 H 01/29/23 15:20 62 150/50 H 01/29/23 15:00 66 155/56 H 01/29/23 14:56 67 158/54 H 01/29/23 14:40 98.5 F 67 18 156/58 H 01/29/23 14:40 3 Intake/Output Intake/Output: Intake & Output 01/27/23 01/28/23 01/29/23 01/30/23 23:59 23:59 23:59 23:59 Intake Total 250 0 878 0 Output Total 0 1481 Balance 250 0 -603 0 Meds/Results Medications: Active Medications Generic Name Dose Route S
--- NOTE | 2023-01-30 13:15 | PCSTNOTE ---
Repeat Modified Barium Swallow study ordered for tomorrow to assess any improvements in the swallow that will lend toward returning to oral feedings.
[2023-01-30] MEDS: metroNIDAZOLE 500 MG/ISO 100ML 500 MG/100 ML BAG 100 MG IVPB ×2 (13:54→21:30)
[2023-01-30] MEDS: DEXTROSE 5%/0.9% SOD CHL 1,000 ML 45 ML IV CONT (22:29)
[2023-01-31] VITALS (24 sets, daily range): BP systolic 106–170; BP diastolic 41–61; PULSE 59–86; RESP 17–20; TEMP 36.2–36.6; O2SAT 95–97
[2023-01-31] MEDS: ALBUTEROL SULFATE NEB 2.5 MG/3 ML INH INHALATION ×4 (01:51→20:52)
[2023-01-31] MEDS: ACETYLCYSTEINE 20% INHAL SOLN 800 MG/4 ML VIAL 200 MG INHALATION ×4 (01:52→20:52)
--- NOTE | 2023-01-31 05:21 | PC.NURSE ---
Documentation for night 01/30 by Kana Lopes reviewed by this nurse.
[2023-01-31] MEDS: LEVOTHYROXINE SODIUM INJ 100 MCG/5 ML VIAL 50 MCG IV PUSH (05:25)
[2023-01-31] MEDS: metroNIDAZOLE 500 MG/ISO 100ML 500 MG/100 ML BAG 100 MG IVPB ×3 (05:25→22:22)
[2023-01-31 05:59] LABS: Basophils Absolute Auto 0.1 K/mm3 (0.0-0.1); Basophils Percent Auto 0.9 % (0.2-1.2); Eosinophils Absolute Auto 0.5 K/mm3 (0-0.3); Eosinophils Percent Auto 8.5 % (0-4.4); Hematocrit 28.5 % (37.0-47.0); Hemoglobin 8.1 g/dL (12.0-15.0); Immature Granulocyte Absolute 0.04 K/mm3 (0.00-0.031); Immature Granulocyte Percent A 0.7 % (0-0.5); Lymphocytes Absolute Auto 0.51 K/mm3 (0.9-3.2); Lymphocytes Percent Auto 9.4 % (18.3-44.2); Mean Corpuscular HGB Conc 28.4 g/dl (32-36); Mean Corpuscular Hemoglobin 29.2 pg (26-34); Mean Corpuscular Volume 102.9 fl (80-100); Mean Platelet Volume 10.6 fl (7.4-10.4); Monocytes Absolute Auto 0.6 K/mm3 (0.1-0.6); Monocytes Percent Auto 11.6 % (2.6-8.5); Neutrophils Absolute Auto 3.7 K/mm3 (1.3-6.7); Neutrophils Percent Auto 68.9 % (45.5-73.1); Platelet Count Result 302 k/mm3 (150-375); Red Blood Count 2.77 M/mm3 (4.2-5.4); Red Cell Distribution Width 16.1 % (11.5-14.5); White Blood Count 5.4 K/mm3 (4.5-10.0)
[2023-01-31 06:08] LABS: Alanine Aminotransferase 6 U/L (6-35); Albumin Level 3.3 g/dL (3.5-5.1); Alkaline Phosphatase 64 U/L (38-126); Anion Gap 13 mmol/L (8-16); Aspartate Amino Transferase 16 U/L (14-36); Bilirubin,Total 0.4 mg/dL (0.2-1.3); Blood Urea Nitrogen 20 mg/dL (7-17); Calcium 7.8 mg/dL (8.4-10.2); Carbon Dioxide 25 mmol/L (22-30); Chloride 105 mmol/L (98-107); Estimated CRCL calculation 6 ml/min; Estimated Glomerular Filt Rate 6; Glucose 65 mg/dL (65-110); Magnesium 2.1 mg/dL (1.6-2.3); Phosphorus 5.7 mg/dL (2.5-4.5); Potassium 4.3 mmol/L (3.4-5.0); Sodium 143 mmol/L (137-145)
--- NOTE | 2023-01-31 06:40 | WPDGIPROGNO ---
Progress Note: A&P Assessment and Plan (1) Acute on chronic anemia: Code(s): D64.9 - Anemia, unspecified Status: Acute Assessment and Plan: she has been anemic for quite a while. On to the last 3 times that she was tested she was Hemoccult negative. It seems that sometimes her this anemia develops acutely after she has had dialysis. (2) Anemia in ESRD (end-stage renal disease): Code(s): N18.6 - End stage renal disease; D63.1 - Anemia in chronic kidney disease Status: Acute Assessment and Plan: Her hemoglobin was as high as 9.2 earlier this year. He was 6.5 when last checked on December 01. Now on admission is 5.3 and then 7.6 today following transfusion with 2 units of blood. She has had elevated MCV which would be unusual if her anemia was due to chronic gastrointestinal blood loss. She in fact had an elevated ferritin of 377 last time it was checked. (3) Chronic obstructive pulmonary disease: Code(s): J44.9 - Chronic obstructive pulmonary disease, unspecified Status: Acute (4) Heme positive stool: Code(s): R19.5 - Other fecal abnormalities Status: Acute Assessment and Plan: Stools Hemoccult positive this time but last time he was checked was negative. (5) Aspiration of food: Code(s): T17.928A - Food in respiratory tract, part unspecified causing other injury, initial encounter Status: Acute Assessment and Plan: Because of aspiration, she may need G-tube placement. I briefly discussed this with her. She said that it had not been brought up to her so far. Plan Possible G-tube placement. Subjective Date/time seen: 01/31/23 06:40 Patient has had episodes of aspiration. NG tube has been placed. A modified barium swallow showed Pharyngeal dysphagia with small amount of laryngeal penetration and silent aspiration. modified barium swallow was scheduled for today. Patient states that she does choke at times at home when eating but is accustomed to that. Exam Const: General: cooperative, tired appearing and overweight Nutritional Appearance: overweight Orientation/consciousness: patient oriented x3 HENMT: Head: normal to inspection Ears: hearing grossly impaired Mouth: Yes Normal oral and palatal mucosa present Eyes: General: appearance normal, both eyes and all related structures Neck: Neck: normal visual inspection Chest: Chest palpation & inspection: normal inspection of the chest Resp: Effort & Inspection: normal respiratory effort Auscultation: clear to auscultation bilaterally Cardio: Rate: regular rate Rhythm: regular rhythm GI: Inspection: normal to inspection Auscultation: normal bowel sounds Skin: General skin exam: no jaundice and pallor Neuro: General: patient oriented x3 Speech: normal speech Objective Data Vital Signs Vital Signs: Vital Signs - 24 hr 01/30/23 08:18 01/30/23 08:29 01/30/23 08:35 Temperature Pulse Rate 72 77 Respiratory Rate 18 18 Blood Pressure Pulse Oximetry 95 Oxygen Delivery Nasal Cannula Oxygen Flow Rate 2 01/30/23 08:04 01/30/23 08:07 01/30/23 13:44 Temperature Pulse Rate 71 72 Respiratory Rate 18 18 Blood Pressure Pulse Oximetry 92 Oxygen Delivery Nasal Cannula Oxygen Flow Rate 2 01/30/23 13:58 01/30/23 14:00 01/30/23 20:16 Temperature 36.5 C Pulse Rate 74 70 88 Respiratory Rate 18 16 18 Blood Pressure 151/58 H Pulse Oximetry 95 Oxygen Delivery Oxygen Flow Rate 01/30/23 20:25 01/30/23 20:26 01/30/23 20:26 Temperature 36.8 C Pulse Rate 83 88 88 Respiratory Rate 18 18 Blood Pressure 110/94 H Pulse Oximetry 99 99 Oxygen Delivery Nasal Cannula Oxygen Flow Rate 2 01/30/23 20:00 01/31/23 01:53 01/31/23 02:04 Temperature Pulse Rate 67 68 Respiratory Rate 18 18 Blood Pressure Pulse Oximetry 99 Oxygen Delivery Nasal Cannula Oxygen Flow Rate 2 01/31/23 04:49 Tem
[2023-01-31 07:02] LABS: Platelet Estimate Adequate (Adequate)
[2023-01-31 07:03] LABS: Anisocytosis 2+ (NORMAL)
[2023-01-31 07:04] LABS: Ovalocytes 1+ (NORMAL); Poikilocytosis 2+ (NORMAL); Schistocytes None Seen (NORMAL)
[2023-01-31] MEDS: PANTOPRAZOLE SODIUM IV 40 MG VIAL IV PUSH (08:32)
--- NOTE | 2023-01-31 11:19 | PM.IMPN ---
Progress Note: A&P Assessment and Plan (1) Aspiration of food: Code(s): T17.928A - Food in respiratory tract, part unspecified causing other injury, initial encounter Status: Acute Assessment and Plan: Concerns for aspiration with eating. NPO now. Slow IVF D5NS at 45 ml per hour given no nutrition currently Medications changed to IV as appropriate and holding remaining PO medications. Speech on board, failed modified barium swallow. Congested cough this morning that patient says she usually does not have Chest XR ordered shows left middle and lower lobe infiltrate consistent with aspiration concerns Empirically placed on Rocephin and Flagyl Sputum ordered and pending Patient's son said she has had episodes of aspiration pna prior to this admission. Wondering if a PEG tube would be a better option for her. IV access was re-established last night after increased oxygen requirements of up to 6 L NC, now back to 3 L NC. IV antibiotics resumes, IV fluids D5NS at 45 ml per hour. 01/31: Repeat barium swallow to be done today. IV fluids D5 NS at 45 mL/hr through right forearm. (2) Chronic anemia: Code(s): D64.9 - Anemia, unspecified Status: Acute Assessment and Plan: chronic issue/problem partly related to ESRD but acute blood loss a concern (guaiac + stools) Epogen with HD PRBC transfusion per protocol GI recommendations noted -- no further endoscopy procedures planned follow trend H/H (3) Hypothyroidism: Code(s): E03.9 - Hypothyroidism, unspecified Status: Acute Assessment and Plan: Continue levothyroxine (4) End stage renal disease: Code(s): N18.6 - End stage renal disease Status: Chronic Assessment and Plan: HD tomorrow continue M/W/F dialysis schedule while hospitalized follow electrolytes, volume status, and clearance (5) Acute on chronic respiratory failure with hypoxia: Code(s): J96.21 - Acute and chronic respiratory failure with hypoxia Status: Acute Assessment and Plan: improving if not stable multifactorial etiology: known hx of COPD volume overload aspiration pneumonia pulmonary HTN significant anemia on admission on supplemental oxygen at baseline fluid removal with dialysis as tolerated PRBC transfusion per protocol antibiotics for pneumonia follow respiratory status (6) Anemia: Code(s): D64.9 - Anemia, unspecified Status: Chronic Assessment and Plan: chronic issue/problem partly related to ESRD but acute blood loss a concern (guaiac + stools) Epogen with HD PRBC transfusion per protocol GI recommendations noted -- no further endoscopy procedures planned follow trend H/H (7) Diabetes: Code(s): E11.9 - Type 2 diabetes mellitus without complications Status: Chronic Assessment and Plan: follow accuchecks glycemic control per hospitalists Will continue to follow. Plan Feeding:NPO, IV dextrose Analgesia:Tylenol Thromboembolic prophylaxis: SCDs Ulcer prophylaxis: Protonix Glycemic control: N/A Bowel regimen: Miralax on hold due to NPO Lines: PIV right forearm Antibiotics: Flagyl and Rocephin Time Spent With Patient Time with patient: 25 - 35 minutes Subjective Date/time seen: 01/31/23 11:19 Interval history: This is an 87-year-old female with end-stage renal disease on hemodialysis, chronic respiratory failure on 2 to 3 L nasal cannula, chronic obstructive pulmonary disease, pulmonary hypertension, diastolic dysfunction, hypertension, chronic anemia, diet-controlled diabetes, and dementia who presented to the emergency department for evaluation of shortness of breath. The patient provides the following history however it is somewhat limited by her significant hearing loss and underlying dementia. She missed dialysis this past Sunday for unclear reasons and today she only completed 1.5 hours of dialysis before dialysi
--- NOTE | 2023-01-31 13:57 | PCSTNOTE ---
Please refer to the Modified Barium Swallow Evaluation in the EMR.
--- NOTE | 2023-01-31 16:12 | PM.PNNEP ---
Progress Note: A&P Assessment and Plan (1) End stage renal disease: Code(s): N18.6 - End stage renal disease Status: Chronic Assessment and Plan: HD today continue M/W/F dialysis schedule while hospitalized follow electrolytes, volume status, and clearance (2) Acute on chronic respiratory failure with hypoxia: Code(s): J96.21 - Acute and chronic respiratory failure with hypoxia Status: Acute Assessment and Plan: improving if not stable multifactorial etiology: known hx of COPD volume overload aspiration pneumonia pulmonary HTN significant anemia on admission on supplemental oxygen at baseline fluid removal with dialysis as tolerated PRBC transfusion per protocol antibiotics for pneumonia follow respiratory status (3) Anemia: Code(s): D64.9 - Anemia, unspecified Status: Chronic Assessment and Plan: chronic issue/problem partly related to ESRD but acute blood loss a concern (guaiac + stools) Epogen with HD PRBC transfusion per protocol GI recommendations noted -- no further endoscopy procedures planned follow trend H/H (4) Hypertension: Code(s): I10 - Essential (primary) hypertension Status: Chronic Assessment and Plan: reasonable control continue home medications - clonidine changed to PRN follow trend of hemodynamics (5) Diabetes: Code(s): E11.9 - Type 2 diabetes mellitus without complications Status: Chronic Assessment and Plan: follow accuchecks glycemic control per hospitalists Will continue to follow. Subjective Date/time seen: 01/31/23 16:12 Interval history: Follow-up for end stage renal disease on hemodialysis. Tolerating hemodialysis treatment at the time of my visit (seen on HD at 4:00pm); MBS done earlier today with results noted; started on thickened liquid diet; no other apparent issues/problems voiced currently; no events overnight or earlier this morning. Exam Narrative: General: elderly and chronically ill-appearing female in NAD Heart: normal S1 and S2; no rub Lungs: coarse breath sounds with a few bibasilar crackles Abdomen: soft, nondistended, positive bowel sounds Extremities: no cyanosis or clubbing; trace edema Skin: no nodules Objective Data Vital Signs Vital Signs: Vital Signs Temp Pulse Resp BP Pulse Ox O2 Del Method O2 Flow Rate 01/31/23 16:00 67 141/54 H 01/31/23 15:54 70 170/58 H 01/31/23 15:43 97.1 F L 71 18 141/48 H 01/31/23 15:43 3 01/31/23 14:43 83 18 01/31/23 14:30 80 18 01/31/23 08:31 85 18 01/31/23 08:00 86 18 01/31/23 08:00 86 18 96 Nasal Cannula 2 01/31/23 04:49 97.9 F 70 20 158/45 H 96 01/31/23 02:04 68 18 01/31/23 01:53 67 18 01/30/23 20:00 99 Nasal Cannula 2 01/30/23 20:26 98.2 F 88 18 110/94 H 99 01/30/23 20:26 88 99 Nasal Cannula 2 01/30/23 20:25 83 18 01/30/23 20:16 88 18 Intake/Output Intake/Output: Intake & Output 01/28/23 01/29/23 01/30/23 01/31/23 23:59 23:59 23:59 23:59 Intake Total 0 878 250 100 Output Total 1481 0 Balance 0 -603 250 100 Meds/Results Medications: Active Medications Generic Name Dose Route Start Last Admin Trade Name Freq PRN Reason Stop Dose Admin Acetaminophen 650 mg 01/28/23 13:12 Acetaminophen 325 Mg Tablet FEED TUBE Q6H PRN Pain (Scale Score 1-3) Acetylcysteine 200 mg 01/29/23 02:00 01/31/23 14:35 Acetylcysteine 20% Inhal Soln 800 Mg/4 Ml Vial INHALATION 200 mg Q6HRT LAUREN Administration Albuterol 2.5 mg 01/22/23 10:19 01/31/23 14:34 Albuterol Sulfate Neb 2.5 Mg/3 Ml Inh INHALATION 2.5 mg Q4HRT PRN Administration Shortness Of Breath Amlodipine Besylate 10 mg 02/01/23 09:00 Amlodipine Besylate 5 Mg Tablet PO QAM LAUREN Atorvastatin Calcium 20 mg 01/31/23 21:
--- NOTE | 2023-01-31 16:12 | P.PNNP_ITS ---
Progress Note: A&P Assessment and Plan (1) End stage renal disease: Code(s): N18.6 - End stage renal disease Status: Chronic Assessment and Plan: * HD today * continue M/W/F dialysis schedule while hospitalized * follow electrolytes, volume status, and clearance (2) Acute on chronic respiratory failure with hypoxia: Code(s): J96.21 - Acute and chronic respiratory failure with hypoxia Status: Acute Assessment and Plan: * improving if not stable * multifactorial etiology: * known hx of COPD * volume overload * aspiration pneumonia * pulmonary HTN * significant anemia on admission * on supplemental oxygen at baseline * fluid removal with dialysis as tolerated * PRBC transfusion per protocol * antibiotics for pneumonia * follow respiratory status (3) Anemia: Code(s): D64.9 - Anemia, unspecified Status: Chronic Assessment and Plan: * chronic issue/problem * partly related to ESRD but acute blood loss a concern (guaiac + stools) * Epogen with HD * PRBC transfusion per protocol * GI recommendations noted -- no further endoscopy procedures planned * follow trend H/H (4) Hypertension: Code(s): I10 - Essential (primary) hypertension Status: Chronic Assessment and Plan: * reasonable control * continue home medications - clonidine changed to PRN * follow trend of hemodynamics (5) Diabetes: Code(s): E11.9 - Type 2 diabetes mellitus without complications Status: Chronic Assessment and Plan: * follow accuchecks * glycemic control per hospitalists Will continue to follow. Subjective Date/time seen: 01/31/23 16:12 Interval history: Follow-up for end stage renal disease on hemodialysis. Tolerating hemodialysis treatment at the time of my visit (seen on HD at 4:00pm); MBS done earlier today with results noted; started on thickened liquid diet; no other apparent issues/problems voiced currently; no events overnight or earlier this morning. Exam Narrative: General: elderly and chronically ill-appearing female in NAD Heart: normal S1 and S2; no rub Lungs: coarse breath sounds with a few bibasilar crackles Abdomen: soft, nondistended, positive bowel sounds Extremities: no cyanosis or clubbing; trace edema Skin: no nodules Objective Data Vital Signs Vital Signs: Vital Signs Temp Pulse Resp BP Pulse Ox O2 Del Method O2 Flow Rate 01/31/23 16:00 67 141/54 H 08/30/23 15:54 70 170/58 H 01/31/23 15:43 97.1 F L 71 18 141/48 H 01/31/23 15:43 3 01/31/23 14:43 83 18 01/31/23 14:30 80 18 01/31/23 08:31 85 18 01/31/23 08:00 86 18 01/31/23 08:00 86 18 96 Nasal Cannula 2 01/31/23 04:49 97.9 F 70 20 158/45 H 96 01/31/23 02:04 68 18 01/31/23 01:53 67 18 01/30/23 20:00 99 Nasal Cannula 2 01/30/23 20:26 98.2 F 88 18 110/94 H 99 01/30/23 20:26 88 99 Nasal Cannula 2 01/30/23 20:25 83 18 01/30/23 20:16 88 18 Intake/Output Intake/Output: Intake & Output 01/28/23 01/29/23 01/30/23 01/31/23 23:59 23:59 23:59 23:59 Intake Total 0 878 250
[2023-01-31] MEDS: EPOETIN ALFA-EPBX 20,000 UNITS/ML VIAL 20000 UNITS IV PUSH (17:20)
[2023-01-31] MEDS: busPIRone HCL 2.5 MG TABLET 7.5 MG PO (19:57)
[2023-01-31] MEDS: ATORVASTATIN 20 MG TABLET PO (19:58)
[2023-01-31] MEDS: LATANOPROST 0.005% OP SOLN 2.5 ML BTL 1 DROP EACH EYE (19:58)
[2023-01-31] MEDS: DOCUSATE SODIUM 100 MG CAPSULE PO (19:58)
[2023-02-01] VITALS (13 sets, daily range): BP systolic 125–143; BP diastolic 30–62; PULSE 68–87; RESP 17–22; TEMP 36.4–37; O2SAT 94–97
[2023-02-01] MEDS: ALBUTEROL SULFATE NEB 2.5 MG/3 ML INH INHALATION ×4 (02:48→19:52)
[2023-02-01] MEDS: ACETYLCYSTEINE 20% INHAL SOLN 800 MG/4 ML VIAL 200 MG INHALATION ×4 (02:48→19:52)
[2023-02-01 05:42] LABS: Basophils Percent Auto 0.6 % (0.2-1.2); Eosinophils Absolute Auto 0.5 K/mm3 (0-0.3); Eosinophils Percent Auto 7.7 % (0-4.4); Hematocrit 27.4 % (37.0-47.0); Hemoglobin 8.2 g/dL (12.0-15.0); Immature Granulocyte Absolute 0.03 K/mm3 (0.00-0.031); Immature Granulocyte Percent A 0.5 % (0-0.5); Lymphocytes Absolute Auto 0.51 K/mm3 (0.9-3.2); Mean Corpuscular HGB Conc 29.9 g/dl (32-36); Mean Corpuscular Hemoglobin 29.2 pg (26-34); Mean Corpuscular Volume 97.5 fl (80-100); Mean Platelet Volume 10.3 fl (7.4-10.4); Monocytes Absolute Auto 0.8 K/mm3 (0.1-0.6); Monocytes Percent Auto 12.4 % (2.6-8.5); Neutrophils Absolute Auto 4.5 K/mm3 (1.3-6.7); Neutrophils Percent Auto 70.8 % (45.5-73.1); Platelet Count Result 281 k/mm3 (150-375); Red Blood Count 2.81 M/mm3 (4.2-5.4); Red Cell Distribution Width 15.9 % (11.5-14.5); White Blood Count 6.4 K/mm3 (4.5-10.0)
[2023-02-01] MEDS: LEVOTHYROXINE SODIUM 100 MCG TABLET PO (05:44)
[2023-02-01 05:56] LABS: Alanine Aminotransferase 6 U/L (6-35); Albumin Level 3.4 g/dL (3.5-5.1); Alkaline Phosphatase 70 U/L (38-126); Anion Gap 4 mmol/L (8-16); Aspartate Amino Transferase 18 U/L (14-36); Bilirubin,Total 0.4 mg/dL (0.2-1.3); Blood Urea Nitrogen 9 mg/dL (7-17); Calcium 7.8 mg/dL (8.4-10.2); Carbon Dioxide 35 mmol/L (22-30); Chloride 98 mmol/L (98-107); Estimated CRCL calculation 11 ml/min; Estimated Glomerular Filt Rate 12; Glucose 76 mg/dL (65-110); Potassium 3.6 mmol/L (3.4-5.0); Sodium 137 mmol/L (137-145)
--- NOTE | 2023-02-01 05:56 | PC.NURSE ---
PT IV IS NO LONGER WORKING. LEFT MESSAGE WITH VASCULAR ACCESS NURSE TO COME ASSESS THE PT. PT IVS FREQUENTLY GOING BAD AND PT IS KNOWN TO BE A HARD STICK. LAST IV WAS PLACED USING US BY VASCULAR ACCESS NURSE. PT FLUIDS PLACED ON HOLD AND 0600 ANTIBIOTIC WAS NOT ABLE TO BE GIVEN.
--- NOTE | 2023-02-01 05:59 | PC.NURSE ---
Documentation for night 01/31 by Kana Lopes reviewed by this nurse
[2023-02-01 06:06] LABS: Anisocytosis 1+ (NORMAL); Hypochromasia 1+ (NORMAL); Platelet Estimate Adequate (Adequate); Schistocytes None Seen (NORMAL)
[2023-02-01] MEDS: metroNIDAZOLE 500 MG/ISO 100ML 500 MG/100 ML BAG 100 MG IVPB (07:09)
[2023-02-01] MEDS: amLODIPine BESYLATE 5 MG TABLET 10 MG PO (08:37)
[2023-02-01] MEDS: DOCUSATE SODIUM 100 MG CAPSULE PO ×2 (08:38→20:48)
[2023-02-01] MEDS: PANTOPRAZOLE 40 MG TABLET PO (08:38)
[2023-02-01] MEDS: busPIRone HCL 2.5 MG TABLET 7.5 MG PO ×2 (08:38→16:56)
[2023-02-01] MEDS: lisinopriL 20 MG TABLET PO (08:38)
--- NOTE | 2023-02-01 09:35 | PM.IMPN ---
Progress Note: A&P Assessment and Plan (1) Aspiration of food: Code(s): T17.928A - Food in respiratory tract, part unspecified causing other injury, initial encounter Status: Acute Assessment and Plan: Concerns for aspiration with eating. NPO now. Slow IVF D5NS at 45 ml per hour given no nutrition currently Medications changed to IV as appropriate and holding remaining PO medications. Speech on board, failed modified barium swallow. Congested cough this morning that patient says she usually does not have Chest XR ordered shows left middle and lower lobe infiltrate consistent with aspiration concerns Empirically placed on Rocephin and Flagyl Sputum ordered and pending Patient's son said she has had episodes of aspiration pna prior to this admission. Wondering if a PEG tube would be a better option for her. IV access was re-established last night after increased oxygen requirements of up to 6 L NC, now back to 3 L NC. IV antibiotics resumes, IV fluids D5NS at 45 ml per hour. 01/31: Repeat barium swallow to be done today. IV fluids D5 NS at 45 mL/hr through right forearm. 02/01: Patient tolerated and passed barium swallow. She is eating and drinking okay. (2) Chronic anemia: Code(s): D64.9 - Anemia, unspecified Status: Acute Assessment and Plan: chronic issue/problem partly related to ESRD but acute blood loss a concern (guaiac + stools) Epogen with HD PRBC transfusion per protocol GI recommendations noted -- no further endoscopy procedures planned follow trend H/H (3) Hypothyroidism: Code(s): E03.9 - Hypothyroidism, unspecified Status: Acute Assessment and Plan: Continue levothyroxine (4) End stage renal disease: Code(s): N18.6 - End stage renal disease Status: Chronic Assessment and Plan: HD tomorrow continue M/W/F dialysis schedule while hospitalized follow electrolytes, volume status, and clearance (5) Acute on chronic respiratory failure with hypoxia: Code(s): J96.21 - Acute and chronic respiratory failure with hypoxia Status: Acute Assessment and Plan: improving if not stable multifactorial etiology: known hx of COPD volume overload aspiration pneumonia pulmonary HTN significant anemia on admission on supplemental oxygen at baseline fluid removal with dialysis as tolerated PRBC transfusion per protocol antibiotics for pneumonia follow respiratory status (6) Anemia: Code(s): D64.9 - Anemia, unspecified Status: Chronic Assessment and Plan: chronic issue/problem partly related to ESRD but acute blood loss a concern (guaiac + stools) Epogen with HD PRBC transfusion per protocol GI recommendations noted -- no further endoscopy procedures planned follow trend H/H (7) Diabetes: Code(s): E11.9 - Type 2 diabetes mellitus without complications Status: Chronic Assessment and Plan: follow accuchecks glycemic control per hospitalists Will continue to follow. Plan Feeding: Renal diet level 5 minced and moist, thickened liquids level 2 mildly thick, IV dextrose Analgesia:Tylenol Thromboembolic prophylaxis: SCDs Ulcer prophylaxis: Protonix Glycemic control: N/A Bowel regimen: Miralax Lines: PIV right forearm Antibiotics: Flagyl and Rocephin, changed to oral antibiotics today Time Spent With Patient Time with patient: 25 - 35 minutes Subjective Date/time seen: 02/01/23 09:35 Interval history: This is an 87-year-old female with end-stage renal disease on hemodialysis, chronic respiratory failure on 2 to 3 L nasal cannula, chronic obstructive pulmonary disease, pulmonary hypertension, diastolic dysfunction, hypertension, chronic anemia, diet-controlled diabetes, and dementia who presented to the emergency department for evaluation of shortness of breath. The patient provides the following history however it is somewhat limited by her s
--- NOTE | 2023-02-01 11:54 | PCNFU ---
Nutrition Follow-Up Complete: swallowing difficulties as related to failed MBS as evidenced by NPO. goal: Meet estimated nutritional needs Patient is progressing towards goal. We will continue current goal. Pt current nutrition is Minced and Moist, Level 5/Renal diet with Moderately thick liquids, Level 2. Last recorded weight is 74.3 kg,down from 78 kg on admit. Bowel Motility:+BM reported 01/23 Labs Reviewed:Cr 3.7,GFR 12, Alb 3.4 Meds Noted:Miralax,Protonix, Synthroid. Skin:WNL Additional Notes:MBS on 01/31. Patient diet order has advanced with intakes of 75-100% of meals. Diet supplement of Nepro shake BID sent for additional 420 kcals and 19 gms protein. Agree with diet orders. Will monitor weight, labs, diet, skin every 5 days.
[2023-02-01] MEDS: SPIRONOLACTONE 12.5 MG TABLET PO (12:31)
--- NOTE | 2023-02-01 13:31 | PM.PNNEP ---
Progress Note: A&P Assessment and Plan (1) End stage renal disease: Code(s): N18.6 - End stage renal disease Status: Chronic Assessment and Plan: HD tomorrow continue M/W/F dialysis schedule while hospitalized follow electrolytes, volume status, and clearance (2) Acute on chronic respiratory failure with hypoxia: Code(s): J96.21 - Acute and chronic respiratory failure with hypoxia Status: Acute Assessment and Plan: improving if not stable multifactorial etiology: known hx of COPD volume overload aspiration pneumonia pulmonary HTN significant anemia on admission on supplemental oxygen at baseline fluid removal with dialysis as tolerated PRBC transfusion per protocol antibiotics for pneumonia follow respiratory status (3) Anemia: Code(s): D64.9 - Anemia, unspecified Status: Chronic Assessment and Plan: chronic issue/problem partly related to ESRD but acute blood loss a concern (guaiac + stools) Epogen with HD PRBC transfusion per protocol GI recommendations noted -- no further endoscopy procedures planned follow trend H/H (4) Hypertension: Code(s): I10 - Essential (primary) hypertension Status: Chronic Assessment and Plan: reasonable control continue home medications - clonidine changed to PRN follow trend of hemodynamics (5) Diabetes: Code(s): E11.9 - Type 2 diabetes mellitus without complications Status: Chronic Assessment and Plan: follow accuchecks glycemic control per hospitalists Will continue to follow. Subjective Date/time seen: 02/01/23 13:31 Interval history: Follow-up for end stage renal disease on hemodialysis. Tolerated hemodialysis treatment yesterday without any issues or problems; passed MBS and has since been restarted on oral feedings/intake; no apparent distress noted at the time of my visit; no issues/events overnight. Exam Narrative: General: elderly and chronically ill-appearing female in NAD Heart: normal S1 and S2; no rub Lungs: coarse breath sounds with a few bibasilar crackles Abdomen: soft, nondistended, positive bowel sounds Extremities: no cyanosis or clubbing; trace edema Skin: warm and dry Objective Data Vital Signs Vital Signs: Vital Signs Temp Pulse Resp BP Pulse Ox O2 Del Method O2 Flow Rate 02/01/23 13:05 74 20 02/01/23 08:20 79 18 02/01/23 09:40 97 Nasal Cannula 2 02/01/23 08:10 77 20 02/01/23 08:10 77 20 94 Nasal Cannula 2 02/01/23 05:21 97.6 F 70 17 141/50 H 96 02/01/23 03:00 87 18 02/01/23 02:50 85 18 01/31/23 21:24 97.8 F 75 17 111/52 L 95 01/31/23 20:56 81 18 95 Nasal Cannula 2 01/31/23 20:52 80 18 01/31/23 20:00 97 Nasal Cannula 2 01/31/23 18:50 76 112/51 L 01/31/23 18:40 86 129/52 L 01/31/23 18:20 59 L 106/50 L 01/31/23 19:33 97.4 F L 75 18 134/56 L 01/31/23 18:00 80 110/57 L 01/31/23 15:43 97.1 F L 71 18 141/48 H 97 01/31/23 17:40 71 115/52 L 01/31/23 17:20 67 130/46 L 01/31/23 17:00 70 148/61 H 01/31/23 16:40 72 147/56 H 01/31/23 16:20 71 114/41 L 01/31/23 16:00 67 141/54 H 01/31/23 15:54 70 170/58 H 01/31/23 15:43 97.1 F L 71 18 141/48 H 01/31/23 15:43 3 Intake/Output Intake/Output: Intake & Output 01/29/23 01/30/23 01/31/23 02/01/23 23:59 23:59 23:59 23:59 Intake Total 878 250 661 780 Output Total 1481 0 1364 0 Balance -603 250 -703 780 Meds/Results Medications: Active Medications Generic Name Dose Route Start Last Admin Trade Name Freq PRN Reason Stop Dose Admin Acetaminophen 650 mg 01/28/23 13:12 Acetaminophen 325 Mg Tablet FEED TUBE Q6H PRN Pain (Scale Score 1-3) Acetylcysteine 200 mg 01/29/23 02:00 02/01/23 13:42 Acetylcysteine 20%
--- NOTE | 2023-02-01 13:31 | P.PNNP_ITS ---
Progress Note: A&P Assessment and Plan (1) End stage renal disease: Code(s): N18.6 - End stage renal disease Status: Chronic Assessment and Plan: * HD tomorrow * continue M/W/F dialysis schedule while hospitalized * follow electrolytes, volume status, and clearance (2) Acute on chronic respiratory failure with hypoxia: Code(s): J96.21 - Acute and chronic respiratory failure with hypoxia Status: Acute Assessment and Plan: * improving if not stable * multifactorial etiology: * known hx of COPD * volume overload * aspiration pneumonia * pulmonary HTN * significant anemia on admission * on supplemental oxygen at baseline * fluid removal with dialysis as tolerated * PRBC transfusion per protocol * antibiotics for pneumonia * follow respiratory status (3) Anemia: Code(s): D64.9 - Anemia, unspecified Status: Chronic Assessment and Plan: * chronic issue/problem * partly related to ESRD but acute blood loss a concern (guaiac + stools) * Epogen with HD * PRBC transfusion per protocol * GI recommendations noted -- no further endoscopy procedures planned * follow trend H/H (4) Hypertension: Code(s): I10 - Essential (primary) hypertension Status: Chronic Assessment and Plan: * reasonable control * continue home medications - clonidine changed to PRN * follow trend of hemodynamics (5) Diabetes: Code(s): E11.9 - Type 2 diabetes mellitus without complications Status: Chronic Assessment and Plan: * follow accuchecks * glycemic control per hospitalists Will continue to follow. Subjective Date/time seen: 02/01/23 13:31 Interval history: Follow-up for end stage renal disease on hemodialysis. Tolerated hemodialysis treatment yesterday without any issues or problems; passed MBS and has since been restarted on oral feedings/intake; no apparent distress noted at the time of my visit; no issues/events overnight. Exam Narrative: General: elderly and chronically ill-appearing female in NAD Heart: normal S1 and S2; no rub Lungs: coarse breath sounds with a few bibasilar crackles Abdomen: soft, nondistended, positive bowel sounds Extremities: no cyanosis or clubbing; trace edema Skin: warm and dry Objective Data Vital Signs Vital Signs: Vital Signs Temp Pulse Resp BP Pulse Ox O2 Del Method O2 Flow Rate 02/01/23 13:05 74 20 02/01/23 08:20 79 18 02/01/23 09:40 97 Nasal Cannula 2 02/01/23 08:10 77 20 02/01/23 08:10 77 20 94 Nasal Cannula 2 02/01/23 05:21 97.6 F 70 17 141/50 H 96 02/01/23 03:00 87 18 02/01/23 02:50 85 18 01/31/23 21:24 97.8 F 75 17 111/52 L 95 01/31/23 20:56 81 18 95 Nasal Cannula 2 01/31/23 20:52 80 18 01/31/23 20:00 97 Nasal Cannula 2 01/31/23 18:50 76 112/51 L 01/31/23 18:40 86 129/52 L 01/31/23 18:20 59 L 106/50 L 01/31/23 19:33 97.4 F L 75 18 134/56 L 01/31/23 18:00 80 110/57 L 01/31/23 15:43 97.1 F L 71 18 141/48 H 97 01/31/23 17:40 71 115/52 L 01/31/23 17:20 67 130/46 L 01/31/23 17:00 70 148/61 H 01/31/23 16:40 72 147/
--- NOTE | 2023-02-01 13:43 | PC.NURSE ---
On 02/01/23, the student, [Hamlet Guillory], provided care and completed [facility] documentation on this patient. I have reviewed the student's documentation and agree with the findings.
[2023-02-01] MEDS: DEXTROSE 5%/0.9% SOD CHL 1,000 ML 45 ML IV CONT (15:14)
[2023-02-01] MEDS: AMOXICILLIN/CLAVULANATE K 500-125 MG TAB 1 TABLET PO (20:47)
[2023-02-01] MEDS: ATORVASTATIN 20 MG TABLET PO (20:48)
[2023-02-01] MEDS: LATANOPROST 0.005% OP SOLN 2.5 ML BTL 1 DROP EACH EYE (23:30)
[2023-02-02] VITALS (22 sets, daily range): BP systolic 102–154; BP diastolic 32–57; PULSE 56–79; RESP 17–22; TEMP 36–36.7; O2SAT 96–100
[2023-02-02] MEDS: ALBUTEROL SULFATE NEB 2.5 MG/3 ML INH INHALATION ×2 (01:28→07:04)
[2023-02-02] MEDS: ACETYLCYSTEINE 20% INHAL SOLN 800 MG/4 ML VIAL 200 MG INHALATION ×3 (01:28→13:37)
[2023-02-02 04:20] LABS: Basophils Percent Auto 0.5 % (0.2-1.2); Eosinophils Absolute Auto 0.5 K/mm3 (0-0.3); Eosinophils Percent Auto 7.7 % (0-4.4); Hemoglobin 7.9 g/dL (12.0-15.0); Immature Granulocyte Absolute 0.07 K/mm3 (0.00-0.031); Immature Granulocyte Percent A 1.2 % (0-0.5); Lymphocytes Absolute Auto 0.66 K/mm3 (0.9-3.2); Mean Corpuscular HGB Conc 29.3 g/dl (32-36); Mean Corpuscular Hemoglobin 28.8 pg (26-34); Mean Corpuscular Volume 98.5 fl (80-100); Mean Platelet Volume 10.1 fl (7.4-10.4); Monocytes Absolute Auto 0.8 K/mm3 (0.1-0.6); Monocytes Percent Auto 13.3 % (2.6-8.5); Neutrophils Percent Auto 66.3 % (45.5-73.1); Platelet Count Result 266 k/mm3 (150-375); Red Blood Count 2.74 M/mm3 (4.2-5.4); Red Cell Distribution Width 16.3 % (11.5-14.5)
[2023-02-02 04:36] LABS: Alanine Aminotransferase 6 U/L (6-35); Alkaline Phosphatase 59 U/L (38-126); Anion Gap 6 mmol/L (8-16); Aspartate Amino Transferase 17 U/L (14-36); Bilirubin,Total 0.3 mg/dL (0.2-1.3); Blood Urea Nitrogen 17 mg/dL (7-17); Calcium 7.7 mg/dL (8.4-10.2); Carbon Dioxide 33 mmol/L (22-30); Chloride 100 mmol/L (98-107); Estimated CRCL calculation 8 ml/min; Estimated Glomerular Filt Rate 8; Glucose 102 mg/dL (65-110); Potassium 3.5 mmol/L (3.4-5.0); Sodium 139 mmol/L (137-145)
[2023-02-02 05:50] LABS: Platelet Estimate Adequate (Adequate)
[2023-02-02 05:56] LABS: Anisocytosis 2+ (NORMAL); Hypochromasia 2+ (NORMAL); Schistocytes Rare (NORMAL)
[2023-02-02] MEDS: LEVOTHYROXINE SODIUM 100 MCG TABLET PO (06:02)
[2023-02-02] MEDS: HEPARIN SODIUM 1,000 UNITS/ML VIAL 5000 UNITS (08:37)
--- NOTE | 2023-02-02 09:25 | P.PNNP_ITS ---
Progress Note: A&P Assessment and Plan (1) End stage renal disease: Code(s): N18.6 - End stage renal disease Status: Chronic Assessment and Plan: * HD today * continue M/W/F dialysis schedule while hospitalized * follow electrolytes, volume status, and clearance (2) Acute on chronic respiratory failure with hypoxia: Code(s): J96.21 - Acute and chronic respiratory failure with hypoxia Status: Acute Assessment and Plan: * improving if not stable * multifactorial etiology: * known hx of COPD * volume overload * aspiration pneumonia * pulmonary HTN * significant anemia on admission * on supplemental oxygen at baseline * fluid removal with dialysis as tolerated * PRBC transfusion per protocol * antibiotics for pneumonia * follow respiratory status (3) Anemia: Code(s): D64.9 - Anemia, unspecified Status: Chronic Assessment and Plan: * chronic issue/problem * partly related to ESRD but acute blood loss a concern (guaiac + stools) * Epogen with HD * PRBC transfusion per protocol * GI recommendations noted -- no further endoscopy procedures planned * follow trend H/H (4) Hypertension: Code(s): I10 - Essential (primary) hypertension Status: Chronic Assessment and Plan: * reasonable control * continue home medications - clonidine changed to PRN * follow trend of hemodynamics (5) Diabetes: Code(s): E11.9 - Type 2 diabetes mellitus without complications Status: Chronic Assessment and Plan: * follow accuchecks * glycemic control per hospitalists Not opposed to discharge from renal perspective if otherwise medically stable. Will continue to follow. Subjective Date/time seen: 02/02/23 09:25 Interval history: Follow-up for end stage renal disease on hemodialysis. Tolerating hemodialysis treatment at the time of my visit (seen on HD at 9:15AM); no new concerns voiced at this time; breathing/respiratory status seems stable; no issues/events overnight or earlier this morning; no apparent distress noted. Exam Narrative: General: elderly and chronically ill-appearing female in NAD Heart: normal S1 and S2; no rub Lungs: coarse breath sounds with a few bibasilar crackles Abdomen: soft, nondistended, positive bowel sounds Extremities: no cyanosis or clubbing; trace edema Skin: warm and intact Objective Data Vital Signs Vital Signs: Vital Signs Temp Pulse Resp BP Pulse Ox O2 Del Method O2 Flow Rate 02/02/23 09:20 72 122/51 L 02/02/23 09:10 73 130/42 L 02/02/23 09:01 98.1 F 72 18 154/48 H 02/02/23 09:01 2 02/02/23 07:10 61 18 02/02/23 07:00 56 L 18 02/02/23 07:00 56 L 18 97 Nasal Cannula 2 02/02/23 05:22 98.0 F 64 17 122/33 L 96 02/02/23 01:50 79 22 H 02/02/23 01:31 73 22 H 02/01/23 20:00 96 Nasal Cannula 2 02/01/23 19:40 98.3 F 73 18 143/40 H 97 02/01/23 20:03 72 22 H 02/01/23 19:55 74 22 H 02/01/23 19:55 74 22 H 96 Nasal Cannula 2 02/01/23 14:58 128/62 02/01/23 14:50 98.6 F 68 18 125/30 L 94 02/01/23 13:45 74 20 Intake/Output Intake/Output:
--- NOTE | 2023-02-02 09:25 | PM.PNNEP ---
Progress Note: A&P Assessment and Plan (1) End stage renal disease: Code(s): N18.6 - End stage renal disease Status: Chronic Assessment and Plan: HD today continue M/W/F dialysis schedule while hospitalized follow electrolytes, volume status, and clearance (2) Acute on chronic respiratory failure with hypoxia: Code(s): J96.21 - Acute and chronic respiratory failure with hypoxia Status: Acute Assessment and Plan: improving if not stable multifactorial etiology: known hx of COPD volume overload aspiration pneumonia pulmonary HTN significant anemia on admission on supplemental oxygen at baseline fluid removal with dialysis as tolerated PRBC transfusion per protocol antibiotics for pneumonia follow respiratory status (3) Anemia: Code(s): D64.9 - Anemia, unspecified Status: Chronic Assessment and Plan: chronic issue/problem partly related to ESRD but acute blood loss a concern (guaiac + stools) Epogen with HD PRBC transfusion per protocol GI recommendations noted -- no further endoscopy procedures planned follow trend H/H (4) Hypertension: Code(s): I10 - Essential (primary) hypertension Status: Chronic Assessment and Plan: reasonable control continue home medications - clonidine changed to PRN follow trend of hemodynamics (5) Diabetes: Code(s): E11.9 - Type 2 diabetes mellitus without complications Status: Chronic Assessment and Plan: follow accuchecks glycemic control per hospitalists Not opposed to discharge from renal perspective if otherwise medically stable. Will continue to follow. Subjective Date/time seen: 02/02/23 09:25 Interval history: Follow-up for end stage renal disease on hemodialysis. Tolerating hemodialysis treatment at the time of my visit (seen on HD at 9:15AM); no new concerns voiced at this time; breathing/respiratory status seems stable; no issues/events overnight or earlier this morning; no apparent distress noted. Exam Narrative: General: elderly and chronically ill-appearing female in NAD Heart: normal S1 and S2; no rub Lungs: coarse breath sounds with a few bibasilar crackles Abdomen: soft, nondistended, positive bowel sounds Extremities: no cyanosis or clubbing; trace edema Skin: warm and intact Objective Data Vital Signs Vital Signs: Vital Signs Temp Pulse Resp BP Pulse Ox O2 Del Method O2 Flow Rate 02/02/23 09:20 72 122/51 L 02/02/23 09:10 73 130/42 L 02/02/23 09:01 98.1 F 72 18 154/48 H 02/02/23 09:01 2 02/02/23 07:10 61 18 02/02/23 07:00 56 L 18 02/02/23 07:00 56 L 18 97 Nasal Cannula 2 02/02/23 05:22 98.0 F 64 17 122/33 L 96 02/02/23 01:50 79 22 H 02/02/23 01:31 73 22 H 02/01/23 20:00 96 Nasal Cannula 2 02/01/23 19:40 98.3 F 73 18 143/40 H 97 02/01/23 20:03 72 22 H 02/01/23 19:55 74 22 H 02/01/23 19:55 74 22 H 96 Nasal Cannula 2 02/01/23 14:58 128/62 02/01/23 14:50 98.6 F 68 18 125/30 L 94 02/01/23 13:45 74 20 Intake/Output Intake/Output: Intake & Output 01/30/23 01/31/23 02/01/23 02/02/23 23:59 23:59 23:59 23:59 Intake Total 668 941 4698 240 Output Total 0 1364 0 0 Balance 250 -703 2100 240 Meds/Results Medications: Active Medications Generic Name Dose Route Start Last Admin Trade Name Terrell PRN Reason Stop Dose Admin Acetaminophen 650 mg 01/28/23 13:12 Acetaminophen 325 Mg Tablet FEED TUBE Q6H PRN Pain (Scale Score 1-3) Acetylcysteine 200 mg 01/29/23 02:00 02/02/23 07:04 Acetylcysteine 20% Inhal Soln 800 Mg/4 Ml Vial INHALATION 200 mg Q6HRT LAUREN Administration Albuterol 2.5 mg 01/22/23 10:19 02/02/23 07:04 Albuterol Sulfate Neb 2.5 Mg/3 Ml Inh INHALATION 2.5 mg Q4HRT PRN Administration Shortness Of Breath
--- NOTE | 2023-02-02 09:30 | PM.DS ---
DS: Admitting Diagnosis Discharge Date 02/02/2023 Admitting Diagnosis Symptomatic anemia End-stage renal disease on hemodialysis Hypertension Hypothyroidism DS: Discharge Diagnosis Discharge Diagnosis (1) Aspiration of food: Code(s): T17.928A - Food in respiratory tract, part unspecified causing other injury, initial encounter Status: Acute (2) Pneumonia: Code(s): J18.9 - Pneumonia, unspecified organism Status: Acute (3) Chronic anemia: Code(s): D64.9 - Anemia, unspecified Status: Acute (4) Hypothyroidism: Code(s): E03.9 - Hypothyroidism, unspecified Status: Acute (5) End stage renal disease on dialysis: Code(s): N18.6 - End stage renal disease; Z99.2 - Dependence on renal dialysis Status: Acute (6) Acute on chronic respiratory failure with hypoxia: Code(s): J96.21 - Acute and chronic respiratory failure with hypoxia Status: Acute (7) Anemia: Code(s): D64.9 - Anemia, unspecified Status: Chronic (8) Diabetes: Code(s): E11.9 - Type 2 diabetes mellitus without complications Status: Chronic DS: Summary Hospital Course Reason for hospitalization: Patient was admitted to the hospital for symptomatic anemia and shortness of breath intolerance at hemodialysis Hospital Course: Patient had Hemoccult-positive stools but no obvious GI bleeding. She received transfusions of total of 4 units PRBCs throughout the 1st couple days of admission. Patient noted to become hypoxemic and chest x-ray suggestive aspiration pneumonia. Swallow study completed showing the patient was aspirating. She was a very difficult IV stick and had times nobody was able to maintain access or receive care IV. NG tube was in place for little while for medications and to start tube feeds but she kept pulling it out and these were members started. Patient received IV dextrose normal saline for most of her. Repeat barium swallow study showed was able to swallow she was placed moist diet with mildly thickened liquids, level 5 diet, level 2 thickening. Today patient tolerated hemodialysis and she received hemodialysis Sunday while in the hospital. She will return to residential care at [facility] today on supplemental oxygenation which is chronic for her. Antibiotics will continue until night dose of 02/04. Status at Discharge Cognitive/behavioral status at discharge: Awake and alert, baseline dementia. Functional status at discharge: bed bound Overall status at discharge: patient is progressing back to baseline Time Spent with Patient Time attestation: Total time spent providing and/or coordinating discharge services: Time spent: Greater than 30 minutes Exam Narrative: General: thin and chronically ill 87-year-old female, sitting up in bed, comfortable, NARD Neuro: awake, alert and oriented x 3, speech clear, no focal neuro deficits noted HEENMT: normocephalic, [place], atraumatic, EOMI, sclerae anicteric, moist oral mucosa Respiratory: Rhonchi auscultation bilaterally with scant crackles, congested productive cough, nonlabored breathing, on oxygen 2 L nc. Cardio: regular rate, regular rhythm with S1-S2 Abdomen: nondistended, normoactive bowel sounds, soft, nontender to palpation Extremities: no edema, erythema, or tenderness to palpation, DP pulses 2+ bilaterally Skin: no rashes or lesions, warm and dry Psych: appropriate mood and affect DS: Data Data Completed and Pending Completed studies during hospitalization: Chest x-ray, abdomen/pelvis CT, chest abdomen pelvis CT, modified barium swallow, chest x-ray, chest x-ray, modified barium swallow, abdomen x-ray, abdomen x-ray common abdomen x-ray, abdomen x-ray, modified barium swallow Labs on day of discharge: Labs from last 24 hours 02/02/23 04:10 WBC 6.0 RBC 2.74 L Hgb 7.9 L Hct 27.0 L MCV 98.5 MCH 28.8 MCHC 29.3 L RDW 16.3 H Plt Count 266 MPV 10.1 Im
[2023-02-02] MEDS: EPOETIN ALFA 10,000 UNITS/ML VIAL 10000 UNITS IV PUSH (10:02)
--- NOTE | 2023-02-02 10:11 | PCSTNOTE ---
Therapist attempted to see patient this morning and patient is in dialysis. RN reports patient is tolerating oral diet well at this time.
[2023-02-02] MEDS: amLODIPine BESYLATE 5 MG TABLET 10 MG PO (13:51)
[2023-02-02] MEDS: SPIRONOLACTONE 12.5 MG TABLET PO (13:52)
[2023-02-02] MEDS: lisinopriL 20 MG TABLET PO (13:52)
[2023-02-02] MEDS: AMOXICILLIN/CLAVULANATE K 500-125 MG TAB 1 TABLET PO (13:52)
[2023-02-02] MEDS: DOCUSATE SODIUM 100 MG CAPSULE PO (13:52)
[2023-02-02 14:37] LABS: SARS-CoV-2 RNA PCR Negative (Negative)
== END 2023-02-02 16:18 | DRG 291 ==
LOC: ANHED 14:47 → ANHIMU 18:17 → ANH2MED 01-24 22:10
PROVIDERS: Family Medicine; Hospitalist; Internal Medicine; Internal Medicine Nephrology; Nurse Practitioner Acute Care; Physician Assistant; Admitting Provider Hospitalist; Emergency Provider General Practice; PCP Internal Medicine; Visit Provider Nurse Practitioner
DX: I13.2 Hypertensive heart and chronic kidney disease with heart failure and with stage 5 chronic kidney disease, or end stage renal disease (principal); I50.33 Acute on chronic diastolic (congestive) heart failure; J96.21 Acute and chronic respiratory failure with hypoxia; N18.6 End stage renal disease; J69.0 Pneumonitis due to inhalation of food and vomit; D62 Acute posthemorrhagic anemia; D63.1 Anemia in chronic kidney disease; R19.5 Other fecal abnormalities; T17.928A Food in respiratory tract, part unspecified causing other injury, initial encounter; Z20.822 Contact with and (suspected) exposure to COVID-19; E03.9 Hypothyroidism, unspecified; E11.22 Type 2 diabetes mellitus with diabetic chronic kidney disease; E78.5 Hyperlipidemia, unspecified; N25.0 Renal osteodystrophy; J44.9 Chronic obstructive pulmonary disease, unspecified; F03.90 Unspecified dementia, unspecified severity, without behavioral disturbance, psychotic disturbance, mood disturbance, and anxiety; K56.41 Fecal impaction; M19.90 Unspecified osteoarthritis, unspecified site; H40.9 Unspecified glaucoma; Z66 Do not resuscitate; Z86.16 Personal history of COVID-19; Z99.2 Dependence on renal dialysis; Z99.81 Dependence on supplemental oxygen
CPT/HCPCS: 36415; 36430; 36600; 71045; 71250; 74176; 80048; 80053; 80069; 80074; 82274; 82375; 82805; 83050; 83605; 83690; 83735; 83880; 84100; 84145; 84484; 85014; 85018; 85025; 85027; 85610; 85730; 86850; 86900; 86901; 86923; 87070; 87205; 87340; 87635; 87636; 92526; 92610; 92611; 93005; 94640; 96374; 99285; A9270; C9113; G0257; J0696; J1644; J1756; J1836; J1940; J2270; J2405; J7030; J7042; J7050; P9016; Q4081; Q5106

== ENCOUNTER 2023-03-19 13:06 | Inpatient (IN) | payer MEDICARE, MEDICAID, SELFPAY ==
[2023-03-19] VITALS (18 sets, daily range): BP systolic 128–175; BP diastolic 47–52; PULSE 70–76; RESP 17–26; TEMP 35.9; O2SAT 90–100; BMI 25.9
--- NOTE | ~2023-03-19 | US_ITS ---
EXAMINATION: US venous doppler [facility] DATE: 03/19/2023 19:55 INDICATION: Lower limb swelling. TECHNIQUE: Grayscale ultrasound images without and with compression and Doppler ultrasound images of the bilateral lower extremity veins were obtained. COMPARISON: Ultrasound 07/21/2022 FINDINGS: The visualized portions of right common femoral vein, profunda (deep) femoral vein, femoral vein, pop liteal vein, peroneal veins, posterior tibial veins, and greater saphenous vein outflow are patent. The visualized portions of left common femoral vein, profunda femoral vein, femoral vein, popliteal v ein, peroneal veins, posterior tibial veins, and greater saphenous vein outflow are patent. IMPRESSION: 1. No deep venous thrombosis. Reviewed, dictated and finalized at location E.
--- NOTE | ~2023-03-19 | NM_ITS ---
EXAMINATION: NM lung vent and perfusion DATE: 03/20/2023 13:03 INDICATION: Shortness of breath TECHNIQUE: 22.6 mCi xenon-133 by inhalation and 5 mCi Tc-99m MAA by intravenous route. Scintigraphic images of the chest were obtained. COMPARISON: Chest radiograph dated 03/19/2023 FINDINGS: There is matched decreased activity in the bilateral lower lungs on the posterior ventilation and per fusion images. There is delayed washout suggesting some degree of obstructive pulmonary disease. Obli que bandlike perfusion defect along the course of the left major fissure consistent with small pleura l effusion as seen on the prior radiograph. Moderate-sized perfusion defect involving the lateral seg ment of the right middle lobe. Additional large perfusion defect involving the right lower lobe. IMPRESSION: 1. Intermediate probability for pulmonary embolism. Reviewed, dictated and finalized at location A.
--- NOTE | ~2023-03-19 | XR_ITS ---
Portable chest x-ray Comparison: 01/26/2023 Clinical History: Shortness of breath Findings: There is minimal left basilar haziness. Probable minimal left pleural effusion. Right lung clear. Cardiomediastinal silhouette is stable. Bones and soft tissues are unremarkable. Impression: Probable minimal left pleural effusion with minimal left basilar pulmonary edema versus infection. Co rrelate clinically. Reviewed, dictated and finalized at [facility]. Impression: Probable minimal left pleural effusion with minimal left basilar pulmonary gabriela a versus infection. Correlate clinically.
--- NOTE | ~2023-03-19 | CT_ITS ---
EXAMINATION: CTA chest PE protocol DATE: 03/20/2023 19:07 INDICATION: Shortness of breath. TECHNIQUE: Computed tomography angiography (CTA) of the chest was performed with 100 mL Omnipaque-350 intravenous contrast timed to evaluate the pulmonary arteries. Coronal maximum intensity projection 3D-reconstructions were created by the technologist. Automated exposure control and iterative reconst ruction technique were employed. The dose-length product was 728.86 mGy-cm. COMPARISON: Chest CT 01/20/2023 FINDINGS: There are small right and moderate-sized left pleural effusions. There is dependent atelect asis bilaterally. Cardiomegaly is noted. There are coronary artery calcifications. No pericardial eff usion. There is calcified atherosclerosis of the aorta and many of the other arteries. There are brid ging endplate osteophytes at multiple levels in the spine, consistent with diffuse idiopathic skeleta l hyperostosis (DISH). There is severe cervical spondylosis. IMPRESSION: 1. No pulmonary embolus. 2. Small right and moderate-sized left pleural effusions. Reviewed, dictated and finalized at location E.
--- NOTE | 2023-03-19 13:10 | ECG_ITS ---
Measurements Intervals [place] Rate: 72 P: 229 DC: 230 QRS: -27 QRSD: 132 T: 71 QT: 430 QTc: 471 Interpretive Statements SINUS RHYTHM WITH FIRST-DEGREE AV BLOCK WITH OCCASIONAL SUPRAVENTRICULAR PREMATURE COMPLEXES INTRAVENTRICULAR CONDUCTION DELAY [130+ ms QRS DURATION] LEFT VENTRICULAR HYPERTROPHY AND ST-T CHANGE [VOLTAGE CRITERIA PLUS ST/T ABNORMALITY] BORDERLINE ECG COMPARED TO ECG 01/19/2023 14:59:35 NO SIGNIFICANT CHANGES Electronically Signed On 03-19-2023 17:10:00 CDT by Darío Milan M.D.
[2023-03-19 14:35] LABS: Basophils Absolute Auto 0.1 K/mm3 (0.0-0.1); Basophils Percent Auto 0.8 % (0.2-1.2); Eosinophils Absolute Auto 0.7 K/mm3 (0-0.3); Eosinophils Percent Auto 9.5 % (0-4.4); Hematocrit 25.1 % (37.0-47.0); Hemoglobin 7.4 g/dL (12.0-15.0); Immature Granulocyte Absolute 0.06 K/mm3 (0.00-0.031); Immature Granulocyte Percent A 0.8 % (0-0.5); Lymphocytes Absolute Auto 0.59 K/mm3 (0.9-3.2); Mean Corpuscular HGB Conc 29.5 g/dl (32-36); Mean Corpuscular Hemoglobin 28.9 pg (26-34); Mean Platelet Volume 11.5 fl (7.4-10.4); Monocytes Absolute Auto 0.8 K/mm3 (0.1-0.6); Monocytes Percent Auto 10.6 % (2.6-8.5); Neutrophils Absolute Auto 5.2 K/mm3 (1.3-6.7); Neutrophils Percent Auto 70.3 % (45.5-73.1); Platelet Count Result 244 k/mm3 (150-375); Red Blood Count 2.56 M/mm3 (4.2-5.4); Red Cell Distribution Width 16.2 % (11.5-14.5); White Blood Count 7.4 K/mm3 (4.5-10.0)
[2023-03-19 14:45] LABS: Prothrombin Time 13.2 Seconds (11.1-14.7)
[2023-03-19 14:46] LABS: Partial Thromboplastin Time 29.2 SECONDS (22.3-36.8)
[2023-03-19 14:47] LABS: Alanine Aminotransferase 8 U/L (6-35); Albumin Level 3.8 g/dL (3.5-5.1); Alkaline Phosphatase 59 U/L (38-126); Anion Gap 7 mmol/L (8-16); Aspartate Amino Transferase 17 U/L (14-36); Bilirubin,Total 0.4 mg/dL (0.2-1.3); Blood Urea Nitrogen 39 mg/dL (7-17); Calcium 7.9 mg/dL (8.4-10.2); Carbon Dioxide 37 mmol/L (22-30); Chloride 92 mmol/L (98-107); Estimated CRCL calculation 9 ml/min; Estimated Glomerular Filt Rate 9; Glucose 108 mg/dL (65-110); Magnesium 2.2 mg/dL (1.6-2.3); Potassium 4.1 mmol/L (3.4-5.0); Sodium 136 mmol/L (137-145)
[2023-03-19 14:59] LABS: NT Pro B Type Natriuretic Pept 10100 pg/mL (19.9-100); Troponin I 0.024 ng/mL (0.000-0.034)
[2023-03-19 15:01] LABS: D Dimer 3.19 ug/mL (<0.48)
[2023-03-19 15:08] LABS: Platelet Estimate Adequate (Adequate); Schistocytes None Seen (NORMAL)
[2023-03-19 15:09] LABS: Anisocytosis 2+ (NORMAL); Hypochromasia 1+ (NORMAL)
--- NOTE | 2023-03-19 18:15 | ED.SOB ---
HPI - SOB/Dyspnea General Chief Complaint: Shortness of Breath/Dyspnea Stated Complaint: SOB Time Seen by Provider: 03/19/23 13:33 History of Present Illness HPI Narrative: Patient is an 87-year-old female with history of end-stage renal disease who presents ER with shortness of breath. Patient was at dialysis when she was reporting her shortness of breath and was sent here for further evaluation. Patient is chronically O2 dependent on 4 L. She denies any chest pain or chest pressure. She has a hard time communicating due to being hard of hearing. She does report that she is persistently short of breath. Related Data Home Medications Medication Instructions Recorded Confirmed atorvastatin 20 mg tablet 20 mg PO HS 06/22/21 01/19/23 ergocalciferol (vitamin D2) 1,250 50,000 unit PO WEEKLY 06/22/21 01/19/23 mcg (50,000 unit) capsule latanoprost 0.005 % eye drops 1 drp EACH EYE HS 06/22/21 01/19/23 spironolactone 25 mg tablet 12.5 mg PO DAILY 06/22/21 02/01/23 acetaminophen 650 mg tablet 650 mg PO Q6H PRN Pain (Scale 07/21/22 01/19/23 Score 1-3) buspirone 7.5 mg tablet 7.5 mg PO BID 07/21/22 01/19/23 sevelamer carbonate 0.8 gram oral 0.8 g PO TID 01/19/23 01/19/23 powder packet (Renvela) Allergies Allergy/AdvReac Type Severity Reaction Status Date / Time adhesive tape Allergy Unknown PLASTIC Verified 03/19/23 13:15 TAPE hydrochlorothiazide Allergy Unknown Verified 03/19/23 13:15 latex Allergy Rash Verified 03/19/23 13:15 Review of Systems Review of Systems: ROS unobtainable: Yes other (Hard of hearing) Constitutional: Constitutional: Denies chills and Denies fever(s) Cardiovascular: Cardiovascular: Denies chest pain, Denies rapid heart rate and Denies radiating jaw, neck or arm pain Respiratory: Respiratory: Denies cough, Reports dyspnea and Denies wheezing Gastrointestinal: Gastrointestinal: Reports no additional gastrointestinal complaints PMFSH Past Medical History Medical History Chronic anemia Chronic obstructive pulmonary disease Chronic respiratory failure with hypoxia On 2 to 3 liters nasal cannula. COVID-19 (06/2021) Diastolic dysfunction End-stage renal disease on hemodialysis Erythropoietin deficiency anemia Gastroesophageal reflux disease Glaucoma Hyperlipidemia Hypertension Hypothyroidism Osteoarthritis Pulmonary hypertension Renal osteodystrophy Type 2 diabetes mellitus Diet-controlled. Vitamin D deficiency Surgical History Surgical History Status post creation of arteriovenous fistula Left upper extremity. Family History Family History Other Diabetes mellitus Hypertension Social History Social History Social History: Surrogate decision maker: Amy Contreras, roman. Code status: Do not resuscitate. 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 Spiritual care concerns: No Exam Narrative: GENERAL: Chronically ill-appearing, well-nourished, and in no acute distress. HEAD: Normocephalic, atraumatic. ENT: Mucous membranes moist. NECK: Supple. CHEST: Bibasilar crackles. No respiratory distress. HEART: Regular rate and rhythm. Normal peripheral pulses.
--- NOTE | 2023-03-19 18:28 | PC.NURSE ---
Pt was provided a turkey sandwich, chips, and a soda.
[2023-03-19] MEDS: FUROSEMIDE INJ 40 MG/4 ML VIAL IV PUSH ×2 (18:49→21:12)
--- NOTE | 2023-03-19 19:16 | PC.NURSE ---
Assumed care of pt from SARBJIT Sanchez at this time. Pt c/o SOB and requesting water. Pt satting at 100%. Admitting provider aware. Resp to be coming to do neb.
--- NOTE | 2023-03-19 19:48 | PM.IMHP ---
H&P: HPI History of Present Illness Date/Time: 03/19/23 19:00 Chief Complaint: Shortness of breath. Narrative: This is an 87-year-old female with end-stage renal disease on hemodialysis, chronic respiratory failure on 2 to 3 L nasal cannula, chronic obstructive pulmonary disease, pulmonary hypertension, diastolic dysfunction, hypertension, chronic anemia, diet-controlled diabetes, dementia presented to the emergency department via EMS for evaluation of shortness of breath. The patient provides the following history. She had dialysis today and reports completing her session. Towards the end of her treatment she began to feel short of breath and dialysis staff called 911 to bring her in for evaluation. According to the patient, is not necessarily unusual for her to have shortness of breath however it seemed to be worse today. She has otherwise been feeling okay and denies sinus congestion, sore throat, cough, chest pain, pleuritic pain, palpitations, nausea, vomiting, and sweats. It is noted that she was recently in the hospital at which time a swallow study showed concerns for aspiration and she was placed on a moist diet with mildly thickened liquids. She denies concerns for aspiration today. She was afebrile on arrival to the ED. Blood pressures have been stable. SpO2 at the time my evaluation is 100% on her usual 3 L. Labs were significant for a hemoglobin of 7.4 (she has had blood transfusions recently with Hemoccult-positive stools requiring transfusion; she did not have endoscopy during that visit for evaluation), sodium 136, potassium 4.1, creatinine 4.60, proBNP 33215, troponin 0.024. Lower extremity venous Doppler ultrasounds were negative for DVT. Chest x-ray showed probable minimal left pleural effusion with mild left basilar pulmonary edema versus infection. V/Q scan was ordered to rule out DVT as her D-dimer is elevated however nuclear medicine did not have the appropriate medications and she is being admitted in this setting for close monitoring overnight and V/Q scan tomorrow. She has no current complaints. Review of Systems Review of Systems: Twelve systems were reviewed and are negative except for as per HPI. [facility] Past Medical History Medical History Chronic anemia Chronic obstructive pulmonary disease Chronic respiratory failure with hypoxia On 2 to 3 liters nasal cannula. COVID-19 (06/2021) Diastolic dysfunction End-stage renal disease on hemodialysis Erythropoietin deficiency anemia Gastroesophageal reflux disease Glaucoma Hyperlipidemia Hypertension Hypothyroidism Osteoarthritis Pulmonary hypertension Renal osteodystrophy Type 2 diabetes mellitus Diet-controlled. Vitamin D deficiency Surgical History Surgical History Status post creation of arteriovenous fistula Left upper extremity. Family History Family History Other Diabetes mellitus Hypertension Social History Social History Social History: Surrogate decision maker: Amy Contreras, son. Code status: Do not resuscitate. 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 Spiritual care concerns: No Meds Home Medications a
[2023-03-19] MEDS: IPRATROPIUM BR 0.02% INH SOLN 0.5 MG/2.5 ML VIAL INHALATION (20:18)
[2023-03-19] MEDS: ALBUTEROL SULFATE NEB 2.5 MG/3 ML INH INHALATION (20:19)
--- NOTE | 2023-03-19 21:23 | ADMGEN ---
This patient, Sofía Contreras, was admitted to [facility] Surg Room 306-02 at 2054. Patient/family oriented to hospital policies and general routines including ID bracelet, bed and alarms, visiting hours, pain management, procedures, bathroom and other care routines, personal items, smoking policy, room service/diet, and visiting hours. Information on how to activate the Rapid Response Team has been discussed. Patient/Family are encouraged to report perceived risks to care and to ask questions if they do not understand what they are told or what they should do.
[2023-03-19 22:18] LABS: Glucose Point of Care 173 mg/dl (65-105)
[2023-03-20] VITALS (17 sets, daily range): BP systolic 143–147; BP diastolic 41–46; PULSE 60–76; RESP 18; TEMP 35.8–36.4; O2SAT 93–100
[2023-03-20] MEDS: LEVOTHYROXINE SODIUM 100 MCG TABLET PO (06:28)
[2023-03-20 07:17] LABS: Hematocrit 25.1 % (37.0-47.0); Hemoglobin 7.1 g/dL (12.0-15.0); Mean Corpuscular HGB Conc 28.3 g/dl (32-36); Mean Corpuscular Volume 98.8 fl (80-100); Mean Platelet Volume 11.3 fl (7.4-10.4); Platelet Count Result 241 k/mm3 (150-375); Red Blood Count 2.54 M/mm3 (4.2-5.4); Red Cell Distribution Width 16.2 % (11.5-14.5); White Blood Count 6.8 K/mm3 (4.5-10.0)
[2023-03-20 07:20] LABS: Anion Gap 6 mmol/L (8-16); Blood Urea Nitrogen 46 mg/dL (7-17); Carbon Dioxide 38 mmol/L (22-30); Chloride 94 mmol/L (98-107); Estimated CRCL calculation 7 ml/min; Estimated Glomerular Filt Rate 7; Glucose 65 mg/dL (65-110); Magnesium 2.3 mg/dL (1.6-2.3); Phosphorus 6.3 mg/dL (2.5-4.5); Potassium 4.6 mmol/L (3.4-5.0); Sodium 138 mmol/L (137-145)
--- NOTE | 2023-03-20 10:32 | PM.IMPN ---
Progress Note: A&P Assessment and Plan (1) Shortness of breath: Code(s): R06.02 - Shortness of breath Status: Acute Assessment and Plan: The patient presented to the emergency department from dialysis for evaluation of shortness of breath. Patient reports completing her dialysis treatment. CXR shows small left effusion and minimal left base airspace disease. She has a history of aspiration. LLL aspiration PNA? No cough, fever or elevated WBC to suggest no PNA D-dimer is elevated: LE venous doppler negative fo DVT. V/Q scan has been ordered Some of her shortness of breath may be related to the anemia. No wheezing to suggest COPD She is at her baseline oxygen requirement. Follow (2) Chronic anemia: Code(s): D64.9 - Anemia, unspecified Status: Acute Assessment and Plan: Patient with chronic anemia. Baseline hemoglobin probably in the 7-9 range. Hemoglobin 7.4 on admission and has dropped to 7.1. Patient noted be iron deficient in November. Folate normal in November. B12 level was 246. MMA last year was 1120. She was guaiac positive and January. EGD in October showed multiple gastric and duodenal polyps. Pathology was benign. She is on iron on admission. Will repeat iron studies. Repeat B12 level but will replace B12. (3) End stage renal disease on dialysis: Code(s): N18.6 - End stage renal disease; Z99.2 - Dependence on renal dialysis Status: Acute Assessment and Plan: Stable. She is compliant with her regimen. Potassium normal. Serum bicarb normal. Does not appear to be fluid overloaded. Continue hemodialysis. Nephrology on consult for hemodialysis schedule. (4) Chronic respiratory failure with hypoxia: Code(s): J96.11 - Chronic respiratory failure with hypoxia Status: Chronic Assessment and Plan: Patient with chronic respiratory failure on 3 L O2 nasal cannula. She is stable on her 3 L. she is not on chronic inhalers. She has albuterol available as needed. Continue to follow. (5) Chronic obstructive pulmonary disease: Code(s): J44.9 - Chronic obstructive pulmonary disease, unspecified Status: Acute Assessment and Plan: Stable. Not on chronic inhalers. Not wheezing. Continue to follow. (6) Hypertension: Code(s): I10 - Essential (primary) hypertension Status: Chronic Assessment and Plan: Patient's blood pressure was reviewed on 03/20 Blood pressure remains mildly elevated at times but overall well controlled. Will continue current medications. (7) Hypothyroidism: Code(s): E03.9 - Hypothyroidism, unspecified Status: Acute Assessment and Plan: TSH okay in August. Continue Synthroid Subjective Date/time seen: 03/20/23 10:32 Interval history: 87yo female with ESRD, chronic respiratory failure on 3L NC and DM here for shortness of breath. She complains of abdominal pain. Awoke with the pain. Ate well this morning without change in the character or severity of abdominal pain. Has had this abdominal pain for a few days. Not sure when her last BM was. no CP or SOB. She is alert but mildly confused so hx is somewhat unreliable. Exam Narrative: AF 96.8 147/43 70 18 99% 3L Gen - NARD Chest - R>L bibasilar inspiratory crackles o/w clear. nml RR CV - RRR S1/S2. Tele showing PACs and PVCs Abd - Soft, ND, Positive BS, mild diffuse tenderness but not consistent exam findings Ext - trace pedal edema. Thrill and bruit LUE Neuro - Alert and oriented to hosp (not the name) but not month, year or Genie name. Psych - Nml mood and affect Skin - Warm and dry Objective Data Vital Signs Vital Signs: Vital Signs - 24 hr 03/19/23 13:04 03/19/23 13:14 03/19/23 13:49 Temperature Pulse Rate 73 70 Respiratory Rate 26 H 26 H Blood Pressure 128/50 L Pulse Oximetry 100 100 100 Oxygen Delivery Nasal Cannula Nasal Cannula Oxygen Flow Rate 4 4 03/19/23
[2023-03-20] MEDS: amLODIPine BESYLATE 5 MG TABLET 10 MG PO (11:09)
[2023-03-20] MEDS: busPIRone HCL 2.5 MG TABLET PO ×2 (11:09→21:06)
[2023-03-20] MEDS: PANTOPRAZOLE 40 MG TABLET PO (11:10)
[2023-03-20] MEDS: busPIRone HCL 5 MG TABLET PO ×2 (11:10→21:06)
[2023-03-20] MEDS: FERROUS SULFATE 325 MG TABLET DR PO ×2 (11:10→17:55)
[2023-03-20] MEDS: SEVELAMER CARBONATE 800 MG TABLET PO ×3 (11:10→17:55)
[2023-03-20] MEDS: SPIRONOLACTONE 12.5 MG TABLET PO (11:11)
[2023-03-20] MEDS: HEPARIN SODIUM 5,000 UNITS/ML VIAL 5000 UNITS SUB-Q ×2 (11:11→21:06)
[2023-03-20] MEDS: lisinopriL 20 MG TABLET PO (11:11)
[2023-03-20] MEDS: DOCUSATE SODIUM 100 MG CAPSULE PO ×2 (11:11→21:06)
--- NOTE | 2023-03-20 11:30 | PM.CNNEP ---
Assessment and Plan Assessment and plan (1) End stage renal disease: Code(s): N18.6 - End stage renal disease Status: Chronic Assessment and Plan: HD tomorrow continue M/W/F dialysis schedule while hospitalized follow electrolytes, volume status, and clearance (2) Acute on chronic respiratory failure with hypoxia: Code(s): J96.21 - Acute and chronic respiratory failure with hypoxia Status: Acute Assessment and Plan: improving if not stable multifactorial etiology: known hx of COPD volume overload pulmonary HTN chronic anemia on supplemental oxygen at baseline fluid removal with dialysis as tolerated PRBC transfusion per protocol follow respiratory status (3) Anemia: Code(s): D64.9 - Anemia, unspecified Status: Chronic Assessment and Plan: chronic issue/problem partly related to ESRD but acute blood loss a concern Epogen with HD PRBC transfusion per protocol GI recommendations noted on last admission -- no further endoscopy procedures planned follow trend H/H (4) Hypertension: Code(s): I10 - Essential (primary) hypertension Status: Chronic Assessment and Plan: reasonable control continue home medications follow trend of hemodynamics (5) Diabetes: Code(s): E11.9 - Type 2 diabetes mellitus without complications Status: Chronic Assessment and Plan: follow accuchecks glycemic control per hospitalists I will continue to follow the patient with you while she remains hospitalized and make further recommendations as needed. Thank you for allowing me to participate in the care of this patient. History of Present Illness Reason for Consult Consult date: 03/20/23 Reason for consult: end stage renal disease Chief Complaint Chief complaint: CHF Exacerbation/Anemia History of Present Illness Narrative: The patient is an 87-year-old female with an extensive past medical history as outlined below who presented to [facility] Emergency room via EMS for further evaluation of shortness of breath. The patient apparently had dialysis on the day of presentation and reports completing her session successfully but at the end of the dialysis treatment, she began to feel more short of breath than usual. The dialysis staff called 911 and EMS arrived and subsequently brought her to the emergency room for further assessment. The patient has chronic shortness of breath at baseline but this seemed to be somewhat worse than usual. She reports no other symptoms other than the shortness of breath with regard to sinus congestion, sore throat, chest pain, palpitations, nausea, vomiting, or diaphoresis. Workup and evaluation emergency room demonstrated the patient be hemodynamically stable and her oxygen saturations were 100% on her baseline 3 L. Routine blood test demonstrated labs consistent with her known history of end-stage renal disease as well as her chronic anemia with a hemoglobin of 7.4. Her proBNP was elevated and her lower extremity Dopplers were negative for a DVT although she still had an elevated D-dimer. Her chest x-ray showed probable minimal left pleural effusion and mild left basilar pulmonary edema versus infection. A V/Q scan was ordered but was unable to be done at this time with a tentative plan for her to be done today With regard to her anemia. She has had a fairly extensive workup and evaluation in the past and by previous notes from Gastroenterology here at [facility], no further testing was to be performed as previous EGDs and colonoscopies never found or discovered a source of bleeding to explain her anemia. She was subsequently admitted to the hospital for further evaluation and therapy. Renal consultation was requested due to her end-stage renal disease. The patient normally does dialysis on a Sunday, Sunday, and Sunday dialysis schedule under the care of Dr. Galaviz
[2023-03-20 11:43] LABS: Iron 68 ug/dL (37-170)
[2023-03-20 11:53] LABS: Percent Iron Saturation 26 % (20-50)
[2023-03-20] MEDS: ALBUTEROL SULFATE NEB 2.5 MG/3 ML INH INHALATION ×3 (11:55→21:30)
[2023-03-20 14:13] LABS: Hematocrit 27.3 % (37.0-47.0); Hemoglobin 7.7 g/dL (12.0-15.0)
--- NOTE | 2023-03-20 16:35 | PCSTNOTE ---
Please refer to the Bedside Swallow Evaluation in the EMR. Please note, silent aspiration cannot be ruled out at bedside.
--- NOTE | 2023-03-20 19:57 | PC.NURSE ---
on 03/20/23 Ana Marrero provided care and assessments for this patient. I have reviewed the assessments and agree with her charting
[2023-03-20 20:19] LABS: Glucose Point of Care 85 mg/dl (65-105)
[2023-03-20] MEDS: LATANOPROST 0.005% OP SOLN 2.5 ML BTL 1 DROP EACH EYE (21:06)
[2023-03-20] MEDS: ATORVASTATIN 20 MG TABLET PO (21:06)
[2023-03-20] MEDS: ALPRAZolam (*CRX) 0.125 MG TABLET PO (22:59)
[2023-03-21] VITALS (33 sets, daily range): BP systolic 99–167; BP diastolic 41–62; PULSE 60–81; RESP 16–26; TEMP 36.2–37.1; O2SAT 96–100
[2023-03-21 01:56] LABS: Alveolar/Arterial O2 Gradient 151.2 mmHg; Base Excess ABG 2.7 mEq/l (+/-2.0); HCO3 ABG 28.9 mEq/l (22.0-26.0); Oxygen Content ABG 10.9 %vol (16.0-22.0); Oxygen Saturation ABG 93.6 % (95.0-100.0); Oxyhemoglobin 91.5 % THb (90.0-100.0); PCO2 ABG 53.5 mmHg (35.0-45.0); PO2 ABG 72.5 mmHg (80.0-100.0); PO2 FiO2 Ratio Arterial Blood 1.81 %; Total Hemoglobin 8.4 g/dL (12.0-18.0)
[2023-03-21 01:58] LABS: Modified Allen's Test Pass; Site Drawn LEFT RADIAL
[2023-03-21 01:59] LABS: Device VENTURI MASK; Fractional Inspired Oxygen 35 %
[2023-03-21] MEDS: QUEtiapine FUMARATE 12.5 MG TABLET PO (02:26)
[2023-03-21] MEDS: LEVOTHYROXINE SODIUM 100 MCG TABLET PO (05:48)
[2023-03-21 06:03] LABS: Hematocrit 23.9 % (37.0-47.0); Mean Corpuscular HGB Conc 28.9 g/dl (32-36); Mean Corpuscular Hemoglobin 28.3 pg (26-34); Mean Platelet Volume 11.4 fl (7.4-10.4); Platelet Count Result 219 k/mm3 (150-375); Red Blood Count 2.44 M/mm3 (4.2-5.4); Red Cell Distribution Width 16.8 % (11.5-14.5); White Blood Count 7.3 K/mm3 (4.5-10.0)
[2023-03-21 06:04] LABS: Hemoglobin 6.9 g/dL (12.0-15.0)
[2023-03-21 06:21] LABS: Albumin Level 3.6 g/dL (3.5-5.1); Anion Gap 7 mmol/L (8-16); Blood Urea Nitrogen 57 mg/dL (7-17); Calcium 7.5 mg/dL (8.4-10.2); Carbon Dioxide 33 mmol/L (22-30); Chloride 91 mmol/L (98-107); Estimated CRCL calculation 6 ml/min; Estimated Glomerular Filt Rate 5; Glucose 77 mg/dL (65-110); Phosphorus 6.9 mg/dL (2.5-4.5); Potassium 4.8 mmol/L (3.4-5.0); Sodium 131 mmol/L (137-145)
[2023-03-21 07:05] LABS: Hepatitis B Surface Antigen Negative (Negative)
[2023-03-21 07:22] LABS: Hepatitis B Surface Anti Res Negative
[2023-03-21 07:49] LABS: Glucose Point of Care 66 mg/dl (65-105)
[2023-03-21 08:16] LABS: Glucose Point of Care 76 mg/dl (65-105)
[2023-03-21] MEDS: busPIRone HCL 2.5 MG TABLET PO ×2 (09:17→20:13)
[2023-03-21] MEDS: FERROUS SULFATE 325 MG TABLET DR PO ×2 (09:17→18:17)
[2023-03-21] MEDS: DOCUSATE SODIUM 100 MG CAPSULE PO ×2 (09:18→20:13)
[2023-03-21] MEDS: amLODIPine BESYLATE 5 MG TABLET 10 MG PO (09:18)
[2023-03-21] MEDS: lisinopriL 20 MG TABLET PO (09:18)
[2023-03-21] MEDS: SPIRONOLACTONE 12.5 MG TABLET PO (09:18)
[2023-03-21] MEDS: PANTOPRAZOLE 40 MG TABLET PO (09:19)
[2023-03-21] MEDS: busPIRone HCL 5 MG TABLET PO ×2 (09:19→20:13)
[2023-03-21] MEDS: SEVELAMER CARBONATE 800 MG TABLET PO ×3 (09:19→18:17)
[2023-03-21] MEDS: SODIUM CHLORIDE 0.9% IV 250 ML 30 ML IV CONT (09:59)
[2023-03-21] MEDS: EPOETIN ALFA-EPBX 10,000 UNITS/ML VIAL 10000 UNITS IV PUSH (10:53)
[2023-03-21] MEDS: ALBUTEROL SULFATE NEB 2.5 MG/3 ML INH INHALATION ×3 (11:25→22:20)
--- NOTE | 2023-03-21 11:52 | PC.NURSE ---
On 03/21/23, the student, [Margoth Prater ], provided care and completed [facility] documentation on this patient. I have reviewed the student's documentation and agree with the findings.
--- NOTE | 2023-03-21 12:05 | PM.PNNEP ---
Progress Note: A&P Assessment and Plan (1) End stage renal disease: Code(s): N18.6 - End stage renal disease Status: Chronic Assessment and Plan: HD today continue M/W/F dialysis schedule while hospitalized follow electrolytes, volume status, and clearance (2) Acute on chronic respiratory failure with hypoxia: Code(s): J96.21 - Acute and chronic respiratory failure with hypoxia Status: Acute Assessment and Plan: improving if not stable multifactorial etiology: known hx of COPD volume overload pulmonary HTN chronic anemia on supplemental oxygen at baseline fluid removal with dialysis as tolerated PRBC transfusion per protocol CTA of chest negative for PE follow respiratory status (3) Anemia: Code(s): D64.9 - Anemia, unspecified Status: Chronic Assessment and Plan: chronic issue/problem partly related to ESRD but acute blood loss a concern Epogen with HD PRBC transfusion per protocol GI recommendations noted on last admission -- no further endoscopy procedures planned follow trend H/H (4) Hypertension: Code(s): I10 - Essential (primary) hypertension Status: Chronic Assessment and Plan: reasonable control continue home medications follow trend of hemodynamics (5) Diabetes: Code(s): E11.9 - Type 2 diabetes mellitus without complications Status: Chronic Assessment and Plan: follow accuchecks glycemic control per hospitalists Not opposed to discharge from renal perspective when otherwise medically stable. Will continue to follow. Subjective Date/time seen: 03/21/23 12:05 Interval history: Follow-up for end stage renal disease on hemodialysis. Tolerating hemodialysis treatment at the time of my visit (seen on HD at 11:45AM); breathing/respiratory status seems stable; no issues/events overnight or earlier this morning; no apparent distress noted. Exam Narrative: General: elderly and chronically ill-appearing female in NAD Heart: normal S1 and S2; no rub Lungs: coarse breath sounds with a few bibasilar crackles Abdomen: soft, nondistended, positive bowel sounds Extremities: no cyanosis or clubbing; trace edema Skin: warm and dry Objective Data Vital Signs Vital Signs: Vital Signs Temp Pulse Resp BP Pulse Ox O2 Del Method O2 Flow Rate 03/21/23 12:00 67 118/51 L 03/21/23 11:45 64 99/49 L 03/21/23 11:30 77 118/49 L 03/21/23 11:35 75 18 03/21/23 11:15 79 123/53 L 03/21/23 11:00 68 117/54 L 03/21/23 10:45 69 104/50 L 03/21/23 10:30 72 126/54 L 03/21/23 09:45 5 03/21/23 09:35 97.6 F 66 20 167/60 H 03/21/23 10:26 98.1 F 72 22 H 126/54 L 99 03/21/23 10:14 67 142/59 H 03/21/23 10:00 65 146/57 H 03/21/23 09:45 65 151/62 H 03/21/23 10:14 98.2 F 67 20 142/59 H 99 03/21/23 09:55 97.6 F 66 16 160/60 H 99 03/21/23 09:26 97.2 F L 64 16 152/54 H 100 03/21/23 04:52 98.8 F 70 16 146/44 H 100 03/21/23 04:00 71 03/21/23 00:00 75 03/20/23 20:00 71 03/20/23 22:00 72 18 03/20/23 21:30 71 18 03/20/23 20:00 98 Nasal Cannula 5 03/20/23 20:29 97.6 F 72 18 143/46 H 93 Intake/Output Intake/Output: Intake & Output 03/18/23 03/19/23 03/20/23 03/21/23 23:59 23:59 23:59 23:59 Intake Total 600 650 Output Total 2200 Balance 600 -1550 Meds/Results Medications: Active Medications Generic Name Dose Route Start Last Admin Trade Name Freq PRN Reason Stop Dose Admin Albuterol 2.5 mg 03/20/23 00:04 03/21/23 11:25 Albuterol Sulfate Neb 2.5 Mg/3 Ml Inh INHALATION 2.5 mg Q6HRT PRN Administration shortness of breath Amlodipine Besylate 10 mg 03/20/23 09:00 03/21/23 09:18 Amlodipine Besylate 5 Mg Tablet PO 10 mg QAM LAUREN Administration
--- NOTE | 2023-03-21 12:05 | P.PNNP_ITS ---
Progress Note: A&P Assessment and Plan (1) End stage renal disease: Code(s): N18.6 - End stage renal disease Status: Chronic Assessment and Plan: * HD today * continue M/W/F dialysis schedule while hospitalized * follow electrolytes, volume status, and clearance (2) Acute on chronic respiratory failure with hypoxia: Code(s): J96.21 - Acute and chronic respiratory failure with hypoxia Status: Acute Assessment and Plan: * improving if not stable * multifactorial etiology: * known hx of COPD * volume overload * pulmonary HTN * chronic anemia * on supplemental oxygen at baseline * fluid removal with dialysis as tolerated * PRBC transfusion per protocol * CTA of chest negative for PE * follow respiratory status (3) Anemia: Code(s): D64.9 - Anemia, unspecified Status: Chronic Assessment and Plan: * chronic issue/problem * partly related to ESRD but acute blood loss a concern * Epogen with HD * PRBC transfusion per protocol * GI recommendations noted on last admission -- no further endoscopy procedures planned * follow trend H/H (4) Hypertension: Code(s): I10 - Essential (primary) hypertension Status: Chronic Assessment and Plan: * reasonable control * continue home medications * follow trend of hemodynamics (5) Diabetes: Code(s): E11.9 - Type 2 diabetes mellitus without complications Status: Chronic Assessment and Plan: * follow accuchecks * glycemic control per hospitalists Not opposed to discharge from renal perspective when otherwise medically stable. Will continue to follow. Subjective Date/time seen: 03/21/23 12:05 Interval history: Follow-up for end stage renal disease on hemodialysis. Tolerating hemodialysis treatment at the time of my visit (seen on HD at 1 1:45AM); breathing/respiratory status seems stable; no issues/events overnight or earlier this morning; no apparent distress noted. Exam Narrative: General: elderly and chronically ill-appearing female in NAD Heart: normal S1 and S2; no rub Lungs: coarse breath sounds with a few bibasilar crackles Abdomen: soft, nondistended, positive bowel sounds Extremities: no cyanosis or clubbing; trace edema Skin: warm and dry Objective Data Vital Signs Vital Signs: Vital Signs Temp Pulse Resp BP Pulse Ox O2 Del Method O2 Flow Rate 03/21/23 12:00 67 118/51 L 03/21/23 11:45 64 99/49 L 03/21/23 11:30 77 118/49 L 03/21/23 11:35 75 18 03/21/23 11:15 79 123/53 L 03/21/23 11:00 68 117/54 L 03/21/23 10:45 69 104/50 L 03/21/23 10:30 72 126/54 L 03/21/23 09:45 5 03/21/23 09:35 97.6 F 66 20 167/60 H 03/21/23 10:26 98.1 F 72 22 H 126/54 L 99 03/21/23 10:14 67 142/59 H 03/21/23 10:00 65 146/57 H 03/21/23 09:45 65 151/62 H 03/21/23 10:14 98.2 F 67 20 142/59 H 99 03/21/23 09:55 97.6 F 66 16 160/60 H 99 03/21/23 09:26 97.2 F L 64 16 152/54 H 100 03/21/23 04:52 98.8 F 70 16 146/44 H 100 03/21/23 04:00 71 03/21/23 00:00 75 03/20/23 20:00 71 03/20/23 22:00 72 18
[2023-03-21] MEDS: HEPARIN SODIUM 5,000 UNITS/ML VIAL 5000 UNITS SUB-Q ×2 (14:39→20:13)
--- NOTE | 2023-03-21 15:06 | PM.IMPN ---
Progress Note: A&P Assessment and Plan (1) Shortness of breath: Code(s): R06.02 - Shortness of breath Status: Acute Assessment and Plan: The patient presented to the emergency department from dialysis for evaluation of shortness of breath. Patient reports completing her dialysis treatment. CXR shows small left effusion and minimal left base airspace disease. She has a history of aspiration. LLL aspiration PNA? No cough, fever or elevated WBC to suggest no PNA D-dimer is elevated: LE venous doppler negative fo DVT. V/Q scan has been ordered Some of her shortness of breath may be related to the anemia. No wheezing to suggest COPD She is at her baseline oxygen requirement. Follow (2) Chronic anemia: Code(s): D64.9 - Anemia, unspecified Status: Acute Assessment and Plan: Patient with chronic anemia. Baseline hemoglobin probably in the 7-9 range. Hemoglobin 7.4 on admission and has dropped to 7.1. Patient noted be iron deficient in November. Folate normal in November. B12 level was 246. MMA last year was 1120. She was guaiac positive and January. EGD in October showed multiple gastric and duodenal polyps. Pathology was benign. She is on iron on admission. Will repeat iron studies. Repeat B12 level but will replace B12. (3) End stage renal disease on dialysis: Code(s): N18.6 - End stage renal disease; Z99.2 - Dependence on renal dialysis Status: Acute Assessment and Plan: Stable. She is compliant with her regimen. Potassium normal. Serum bicarb normal. Does not appear to be fluid overloaded. Continue hemodialysis. Nephrology on consult for hemodialysis schedule. (4) Chronic respiratory failure with hypoxia: Code(s): J96.11 - Chronic respiratory failure with hypoxia Status: Chronic Assessment and Plan: Patient with chronic respiratory failure on 3 L O2 nasal cannula. She is stable on her 3 L. she is not on chronic inhalers. She has albuterol available as needed. Continue to follow. (5) Chronic obstructive pulmonary disease: Code(s): J44.9 - Chronic obstructive pulmonary disease, unspecified Status: Acute Assessment and Plan: Stable. Not on chronic inhalers. Not wheezing. Continue to follow. (6) Hypertension: Code(s): I10 - Essential (primary) hypertension Status: Chronic Assessment and Plan: Patient's blood pressure was reviewed on 03/21 Blood pressure remains mildly elevated at times but overall well controlled. Will continue current medications. (7) Hypothyroidism: Code(s): E03.9 - Hypothyroidism, unspecified Status: Acute Assessment and Plan: TSH okay in August. Continue Synthroid Subjective Date/time seen: 03/21/23 15:06 Interval history: 87yo female with ESRD, chronic respiratory failure on 3L NC and DM here for shortness of breath. No overnight events noted. No chest pain or shortness of breath. No nausea, vomiting or diarrhea. No fevers or chills. Patient states she feels a little weak today, but otherwise much better than yesterday. Review of Systems Review of Systems: 12 point review of systems was assessed and was negative except as noted in the HPI Exam Narrative: General: No acute distress, alert and oriented per baseline HEENT: Atraumatic, normocephalic, mucous membranes moist CV: Regular rate and rhythm, S1, S2 Lungs: No wheezes, scattered bibasilar crackles noted Abdomen: Soft, nontender, nondistended Extremities: Normal to inspection, trace nonpitting edema bilaterally Skin: No rashes noted, no lesions or wounds seen Psych: Euthymic, normal affect Objective Data Vital Signs Vital Signs: Vital Signs - 24 hr 03/20/23 16:53 03/20/23 17:01 03/20/23 16:00 Temperature Pulse Rate 67 68 70 Respiratory Rate 18 18 Blood Pressure Pulse Oximetry Oxygen Delivery Oxygen Flow Rate 03/20/23 20:29
[2023-03-21 18:24] LABS: Glucose Point of Care 94 mg/dl (65-105)
--- NOTE | 2023-03-21 18:41 | PC.NURSE ---
Ana Marrero provided care for this patient on 03/21/23. I agreed with her assessments and charting.
[2023-03-21] MEDS: ATORVASTATIN 20 MG TABLET PO (20:13)
[2023-03-21] MEDS: LATANOPROST 0.005% OP SOLN 2.5 ML BTL 1 DROP EACH EYE (20:13)
[2023-03-22] VITALS: PULSE 69
[2023-03-22 01:15] LABS: Glucose Point of Care 101 mg/dl (65-105)
[2023-03-22 02:30] VITALS: O2SAT 92
[2023-03-22 04:00] VITALS: PULSE 71
[2023-03-22 06:00] VITALS: BP 136/51; PULSE 66; RESP 24; TEMP 36.1; O2SAT 91
[2023-03-22 06:26] LABS: Glucose Point of Care 79 mg/dl (65-105)
[2023-03-22] MEDS: LEVOTHYROXINE SODIUM 100 MCG TABLET PO (06:33)
[2023-03-22 08:00] VITALS: PULSE 65; O2SAT 99
[2023-03-22] MEDS: lisinopriL 20 MG TABLET PO (08:53)
[2023-03-22] MEDS: DOCUSATE SODIUM 100 MG CAPSULE PO (08:53)
[2023-03-22] MEDS: FERROUS SULFATE 325 MG TABLET DR PO (08:53)
[2023-03-22] MEDS: SEVELAMER CARBONATE 800 MG TABLET PO ×2 (08:53→11:33)
[2023-03-22] MEDS: busPIRone HCL 5 MG TABLET PO (08:53)
[2023-03-22] MEDS: SPIRONOLACTONE 12.5 MG TABLET PO (08:54)
[2023-03-22] MEDS: PANTOPRAZOLE 40 MG TABLET PO (08:54)
[2023-03-22] MEDS: HEPARIN SODIUM 5,000 UNITS/ML VIAL 5000 UNITS SUB-Q (08:54)
[2023-03-22] MEDS: busPIRone HCL 2.5 MG TABLET PO (08:54)
[2023-03-22] MEDS: amLODIPine BESYLATE 5 MG TABLET 10 MG PO (08:54)
--- NOTE | 2023-03-22 10:48 | PM.DS ---
DS: Admitting Diagnosis Discharge Date 03/22/23 Admitting Diagnosis Shortness of breath DS: Discharge Diagnosis Discharge Diagnosis (1) Shortness of breath: Code(s): R06.02 - Shortness of breath Status: Acute Assessment and Plan: The patient presented to the emergency department from dialysis for evaluation of shortness of breath. Patient reports completing her dialysis treatment. CXR shows small left effusion and minimal left base airspace disease. She has a history of aspiration. LLL aspiration PNA? No cough, fever or elevated WBC to suggest no PNA D-dimer is elevated: LE venous doppler negative fo DVT. V/Q scan has been ordered Some of her shortness of breath may be related to the anemia. No wheezing to suggest COPD She is at her baseline oxygen requirement. Follow (2) Chronic anemia: Code(s): D64.9 - Anemia, unspecified Status: Acute Assessment and Plan: Patient with chronic anemia. Baseline hemoglobin probably in the 7-9 range. Hemoglobin 7.4 on admission and has dropped to 7.1. Patient noted be iron deficient in November. Folate normal in November. B12 level was 246. MMA last year was 1120. She was guaiac positive and January. EGD in October showed multiple gastric and duodenal polyps. Pathology was benign. She is on iron on admission. Will repeat iron studies. Repeat B12 level but will replace B12. (3) End stage renal disease on dialysis: Code(s): N18.6 - End stage renal disease; Z99.2 - Dependence on renal dialysis Status: Acute Assessment and Plan: Stable. She is compliant with her regimen. Potassium normal. Serum bicarb normal. Does not appear to be fluid overloaded. Continue hemodialysis. Nephrology on consult for hemodialysis schedule. (4) Chronic respiratory failure with hypoxia: Code(s): J96.11 - Chronic respiratory failure with hypoxia Status: Chronic Assessment and Plan: Patient with chronic respiratory failure on 3 L O2 nasal cannula. She is stable on her 3 L. she is not on chronic inhalers. She has albuterol available as needed. Continue to follow. (5) Chronic obstructive pulmonary disease: Code(s): J44.9 - Chronic obstructive pulmonary disease, unspecified Status: Acute Assessment and Plan: Stable. Not on chronic inhalers. Not wheezing. Continue to follow. (6) Hypertension: Code(s): I10 - Essential (primary) hypertension Status: Chronic Assessment and Plan: Patient's blood pressure was reviewed on 03/21 Blood pressure remains mildly elevated at times but overall well controlled. Will continue current medications. (7) Hypothyroidism: Code(s): E03.9 - Hypothyroidism, unspecified Status: Acute Assessment and Plan: TSH okay in August. Continue Synthroid DS: Summary Hospital Course Hospital Course: 87yo female with ESRD, chronic respiratory failure on 3L NC and DM here for shortness of breath. The patient presented to the emergency department from dialysis for evaluation of shortness of breath. Patient reports completing her dialysis treatment. CXR shows small left effusion and minimal left base airspace disease. She has a history of aspiration. LLL aspiration PNA? No cough, fever or elevated WBC to suggest no PNA D-dimer is elevated: LE venous doppler negative fo DVT. V/Q scan has been ordered Some of her shortness of breath may be related to the anemia. No wheezing to suggest COPD She is at her baseline oxygen requirement. Stable.? She is compliant with her regimen.? Potassium normal.? Serum bicarb normal.? Does not appear to be fluid overloaded. Continue hemodialysis.? Nephrology on consult for hemodialysis schedule. All symptoms resolved. She was discharged in stable condition with close outpatient follow-up. No signs of PE or DVT noted. Please see above and med rec for details. Time Spent with Patient Time attestation: Total time spen
[2023-03-22 12:00] VITALS: PULSE 65
[2023-03-22 12:23] LABS: SARS-CoV-2 RNA PCR Negative (Negative)
[2023-03-27 11:50] LABS: Methylmalonic Acid 2136 nmol/L (87-318)
== END 2023-03-22 13:35 | DRG 682 ==
LOC: ANHED 14:26 → ANH3MEDSUR 19:50
PROVIDERS: Internal Medicine; Internal Medicine Nephrology; Physician Assistant; Admitting Provider Hospitalist; Emergency Provider Emergency Medicine; PCP Internal Medicine; Visit Provider Student in an Organized Health Care Education/Training Program
DX: I12.0 Hypertensive chronic kidney disease with stage 5 chronic kidney disease or end stage renal disease (principal); J96.21 Acute and chronic respiratory failure with hypoxia; N18.6 End stage renal disease; D63.1 Anemia in chronic kidney disease; E11.22 Type 2 diabetes mellitus with diabetic chronic kidney disease; E55.9 Vitamin D deficiency, unspecified; E03.9 Hypothyroidism, unspecified; E78.5 Hyperlipidemia, unspecified; H91.90 Unspecified hearing loss, unspecified ear; I27.20 Pulmonary hypertension, unspecified; J44.9 Chronic obstructive pulmonary disease, unspecified; K21.9 Gastro-esophageal reflux disease without esophagitis; M19.90 Unspecified osteoarthritis, unspecified site; Z66 Do not resuscitate; Z99.2 Dependence on renal dialysis; Z99.81 Dependence on supplemental oxygen; Z20.822 Contact with and (suspected) exposure to COVID-19; Z86.16 Personal history of COVID-19
CPT/HCPCS: 36415; 36430; 36600; 71045; 71275; 78582; 80048; 80053; 80069; 82607; 82728; 82805; 82948; 83540; 83550; 83735; 83880; 83921; 84100; 84484; 85014; 85018; 85025; 85027; 85380; 85610; 85730; 86706; 86850; 86900; 86901; 86923; 87340; 87635; 92610; 93005; 93970; 94002; 94640; 96374; 99285; A9270; A9540; A9558; G0257; G0378; J1644; J1940; J7050; P9016; Q5105; Q9967

== ENCOUNTER 2023-03-28 13:53 | Emergency (ER) | payer MEDICARE, MEDICAID, SELFPAY ==
--- NOTE | ~2023-03-28 | XR_ITS ---
XR chest 2V 03/28/2023 14:17 Indication: Shortness of breath and cough Procedure: 2 view chest Comparison: AP and lateral views of the chest Findings: Moderate left pleural effusion. Cardiomegaly. Bibasilar airspace disease. The lungs are hyp erinflated which is consistent with, but not diagnostic of chronic obstructive pulmonary disease. No acute osseous abnormality. Impression: 1: Bibasilar airspace disease may represent pneumonia and/or atelectasis. 2: Moderate left pleural effusion. Reviewed, dictated and finalized at location B. Impression: 1: Bibasilar airspace disease may represent pneumonia and/or atelectasis. 2: Moderate left pleural effusion.
[2023-03-28 13:51] VITALS: BP 121/45; PULSE 80; RESP 16; TEMP 35.9; O2SAT 98
--- NOTE | 2023-03-28 13:58 | ECG_ITS ---
Measurements Intervals [place] Rate: 75 P: 37 DC: 202 QRS: -24 QRSD: 127 T: 109 QT: 407 QTc: 456 Interpretive Statements SINUS RHYTHM WITH OCCASIONAL SUPRAVENTRICULAR PREMATURE COMPLEXES LEFT VENTRICULAR HYPERTROPHY AND ST-T CHANGE [VOLTAGE CRITERIA PLUS ST/T ABNORMALITY] COMPARED TO ECG 03/19/2023 13:12:53 NO SIGNIFICANT CHANGES Electronically Signed On 03-28-2023 20:32:11 CDT by Nirali Mcpherson M.D.
[2023-03-28 14:05] VITALS: O2SAT 98
[2023-03-28 14:10] LABS: Basophils Absolute Auto 0.1 K/mm3 (0.0-0.1); Eosinophils Absolute Auto 0.7 K/mm3 (0-0.3); Eosinophils Percent Auto 9.3 % (0-4.4); Hematocrit 26.1 % (37.0-47.0); Hemoglobin 7.6 g/dL (12.0-15.0); Immature Granulocyte Absolute 0.09 K/mm3 (0.00-0.031); Immature Granulocyte Percent A 1.3 % (0-0.5); Lymphocytes Absolute Auto 0.47 K/mm3 (0.9-3.2); Lymphocytes Percent Auto 6.8 % (18.3-44.2); Mean Corpuscular HGB Conc 29.1 g/dl (32-36); Mean Corpuscular Hemoglobin 28.6 pg (26-34); Mean Corpuscular Volume 98.1 fl (80-100); Mean Platelet Volume 10.7 fl (7.4-10.4); Monocytes Absolute Auto 0.6 K/mm3 (0.1-0.6); Monocytes Percent Auto 8.6 % (2.6-8.5); Neutrophils Absolute Auto 5.1 K/mm3 (1.3-6.7); Platelet Count Result 259 k/mm3 (150-375); Red Blood Count 2.66 M/mm3 (4.2-5.4); Red Cell Distribution Width 15.9 % (11.5-14.5)
[2023-03-28 14:20] LABS: Alanine Aminotransferase 9 U/L (6-35); Albumin Level 3.8 g/dL (3.5-5.1); Alkaline Phosphatase 65 U/L (38-126); Anion Gap 6 mmol/L (8-16); Aspartate Amino Transferase 15 U/L (14-36); Bilirubin,Total 0.3 mg/dL (0.2-1.3); Blood Urea Nitrogen 28 mg/dL (7-17); Calcium 8.3 mg/dL (8.4-10.2); Carbon Dioxide 35 mmol/L (22-30); Chloride 97 mmol/L (98-107); Estimated CRCL calculation 11 ml/min; Estimated Glomerular Filt Rate 12; Glucose 155 mg/dL (65-110); Potassium 4.3 mmol/L (3.4-5.0); Sodium 138 mmol/L (137-145)
[2023-03-28 15:00] VITALS: BP 147/70; PULSE 76; RESP 23; O2SAT 97
[2023-03-28] MEDS: AZITHROMYCIN 250 MG TABLET 500 MG PO (15:13)
--- NOTE | 2023-03-28 15:13 | ED.SOB ---
HPI - SOB/Dyspnea General Chief Complaint: Shortness of Breath/Dyspnea Stated Complaint: dyspnea from dialysis Time Seen by Provider: 03/28/23 14:07 History of Present Illness HPI Narrative: Patient was at dialysis when she started feeling like she could not breathe, she does have chronic dyspnea and is on 3 L oxygen at baseline, and had been taken to 2 L while at dialysis. She is currently denying any complaints. Related Data Home Medications Medication Instructions Recorded Confirmed atorvastatin 20 mg tablet 20 mg PO HS 06/22/21 03/19/23 ergocalciferol (vitamin D2) 1,250 50,000 unit PO WEEKLY 06/22/21 03/19/23 mcg (50,000 unit) capsule latanoprost 0.005 % eye drops 1 drp EACH EYE HS 06/22/21 03/19/23 spironolactone 25 mg tablet 12.5 mg PO DAILY 06/22/21 03/19/23 acetaminophen 650 mg tablet 650 mg PO Q6H PRN Pain (Scale 07/21/22 03/19/23 Score 1-3) buspirone 7.5 mg tablet 7.5 mg PO BID 07/21/22 03/19/23 sevelamer carbonate 0.8 gram oral 0.8 g PO TID 01/19/23 03/19/23 powder packet (Renvela) Allergies Allergy/AdvReac Type Severity Reaction Status Date / Time adhesive tape Allergy Unknown PLASTIC Verified 03/19/23 13:15 TAPE hydrochlorothiazide Allergy Unknown Verified 03/19/23 13:15 latex Allergy Rash Verified 03/19/23 13:15 Review of Systems Review of Systems: CONST: No fever. HEENT: No sore throat C/V: No chest pain RESP: No cough GI: No abdominal pain : No dysuria. M/S: No joint pain. SKIN: No rash. NEURO: [No headache or focal numbness or weakness] PSYCH: [No depression] [facility] Past Medical History Medical History Chronic anemia Chronic obstructive pulmonary disease Chronic respiratory failure with hypoxia On 2 to 3 liters nasal cannula. COVID-19 (06/2021) Diastolic dysfunction End-stage renal disease on hemodialysis Erythropoietin deficiency anemia Gastroesophageal reflux disease Glaucoma Hyperlipidemia Hypertension Hypothyroidism Osteoarthritis Pulmonary hypertension Renal osteodystrophy Type 2 diabetes mellitus Diet-controlled. Vitamin D deficiency Surgical History Surgical History Status post creation of arteriovenous fistula Left upper extremity. Family History Family History Other Diabetes mellitus Hypertension Social History Social History Social History: Surrogate decision maker: Amy Contreras, roman. Code status: Do not resuscitate. 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 Spiritual care concerns: No Exam Narrative: EXAMINATION OF ORGAN SYSTEMS/BODY AREAS: Constitutional: Vital signs per nursing GENERAL:[No acute distress, non-toxic appearing.] HEAD: Normal with no signs of head trauma. EYES: EOMI, conjunctiva normal ENT: Hearing grossly intact LUNGS: Nonlabored breathing. Slight crackles left side HEART: [Regular rate and rhythm] ABD: [Soft], [nontender to palpation] EXT: Normal range of motion SKIN: [No rashes or lesions.] NEURO: [Alert. No gross focal sensory or strength deficits.] PSYCH: Normal affect Course Vital Signs Vital signs: Vital Signs Temperature 96.6 F L 03/28/23 13:51 Pulse
== END 2023-03-28 16:31 ==
PROVIDERS: Emergency Medicine; Emergency Provider Emergency Medicine; PCP Internal Medicine
DX: J90 Pleural effusion, not elsewhere classified (principal); D64.9 Anemia, unspecified; I12.0 Hypertensive chronic kidney disease with stage 5 chronic kidney disease or end stage renal disease; E11.22 Type 2 diabetes mellitus with diabetic chronic kidney disease; N18.6 End stage renal disease; Z99.2 Dependence on renal dialysis; J96.11 Chronic respiratory failure with hypoxia; Z99.81 Dependence on supplemental oxygen; E03.9 Hypothyroidism, unspecified; M19.90 Unspecified osteoarthritis, unspecified site
CPT/HCPCS: 36415; 71046; 80053; 85025; 93005; 96365; 99284; A9270; J0696

== ENCOUNTER 2023-04-09 16:00 | Inpatient (IN) | payer MEDICARE, MEDICAID, SELFPAY ==
[2023-04-09] VITALS (33 sets, daily range): BP systolic 122–163; BP diastolic 37–80; PULSE 65–86; RESP 16–25; TEMP 36.5–37.1; O2SAT 87–100; BMI 24.7
--- NOTE | ~2023-04-09 | XR_ITS ---
EXAMINATION: XR chest 1V portable Exam Date/Time: 04/10/2023 17:20 GOVERNMENT PROGRAM MANAGER HISTORY: shortness of breath Comparison: Same date at 9:50 AM. RESULT: Lines, tubes, and devices: G-tube anchor over the GE junction. Lungs and pleura: Significant rightward rotation. Bilateral costophrenic angle blunting. Hazy left m id and lower lung opacity. Cardiomediastinal silhouette: Stable. Other: No acute osseous or upper abdominal finding. IMPRESSION: Left mid/lower lung atelectasis/pneumonia. Bibasilar atelectasis/scar. Moderate left and small right effusions. Reviewed, dictated and finalized at location K. RNMENT PROGRAM MANAGER
--- NOTE | ~2023-04-09 | XR_ITS ---
EXAMINATION: XR chest 1V portable INDICATION: Shortness of breath and hypoxia TECHNIQUE: Portable AP chest at 0950 hours COMPARISON: 04/09/2023 FINDINGS: There are small pleural effusions with interval improvement on the left. There are airspace opacities of the mid and lower lung zones. The cardiomediastinal silhouette is stable. Cardiomegaly is noted. There is no pneumothorax. IMPRESSION: 1. Small pleural effusions with improvement on the left. 2. Airspace opacities of the mid and lower lung zones, consistent with atelectasis versus pneumonia. Reviewed, dictated and finalized at location L. DIRECTOR IMPRESSION: 1. Small pleural effusions with improvement on the left. 2. Airspace opacities of the mid and lower lung zones, consistent with atelecta sis versus pneumonia.
--- NOTE | ~2023-04-09 | XR_ITS ---
EXAMINATION: XR chest 1V portable DATE: 04/12/2023 14:36 INDICATION: Hypoxia. TECHNIQUE: A single frontal view of the chest was obtained. COMPARISON: Chest single view 04/10/2023, chest CT 03/20/2023 FINDINGS: There are small right and moderate-sized left pleural effusions. There are airspace opaciti es at the lung bases. No pneumothorax. Cardiomegaly is noted. IMPRESSION: 1. Stable small right and moderate-sized left pleural effusions. 2. Stable airspace opacities at the lung bases, consistent with atelectasis versus pneumonia. 3. Cardiomegaly. Reviewed, dictated and finalized at location E. F TESTER IMPRESSION: 1. Stable small right and moderate-sized left pleural effusions. 2. Stable airspace opacities at the lung bases, consistent with atelectasis ghada myra pneumonia. 3. Cardiomegaly.
--- NOTE | ~2023-04-09 | XR_ITS ---
EXAMINATION: XR chest 2V DATE: 04/09/2023 16:32 INDICATION: Shortness of breath TECHNIQUE: Frontal and lateral views of the chest are obtained COMPARISON: 03/28/2023 FINDINGS: There are small stable pleural effusions, left greater than right. There is no pneumothorax . There are stable airspace opacities of the lung bases. Cardiomegaly is noted. There is mild thoraci c spondylosis. IMPRESSION: 1. Small stable pleural effusions. 2. Bibasilar airspace opacities, consistent with atelectasis versus pneumonia. Reviewed, dictated and finalized at location B. OR STAFF ACCOUNTANT
--- NOTE | ~2023-04-09 | US_ITS ---
EXAMINATION: US venous doppler [facility] DATE: 04/12/2023 20:32 INDICATION: Lower limb pain. TECHNIQUE: Grayscale ultrasound images without and with compression and Doppler ultrasound images of the bilateral lower extremity veins were obtained. COMPARISON: Ultrasound 03/19/2023 FINDINGS: The visualized portions of right common femoral vein, profunda (deep) femoral vein, femoral vein, pop liteal vein, peroneal veins, posterior tibial veins, and greater saphenous vein outflow are patent. The visualized portions of left common femoral vein, profunda femoral vein, femoral vein, popliteal v ein, peroneal veins, posterior tibial veins, and greater saphenous vein outflow are patent. IMPRESSION: 1. No deep venous thrombosis. Reviewed, dictated and finalized at location E. CIATE WEB DEVELOPER
[2023-04-09 16:34] LABS: Basophils Absolute Auto 0.1 K/mm3 (0.0-0.1); Basophils Percent Auto 0.7 % (0.2-1.2); Eosinophils Absolute Auto 0.6 K/mm3 (0-0.3); Eosinophils Percent Auto 8.7 % (0-4.4); Hematocrit 22.7 % (37.0-47.0); Immature Granulocyte Absolute 0.05 K/mm3 (0.00-0.031); Immature Granulocyte Percent A 0.7 % (0-0.5); Lymphocytes Absolute Auto 0.48 K/mm3 (0.9-3.2); Lymphocytes Percent Auto 6.9 % (18.3-44.2); Mean Corpuscular HGB Conc 29.1 g/dl (32-36); Mean Corpuscular Hemoglobin 28.1 pg (26-34); Mean Corpuscular Volume 96.6 fl (80-100); Mean Platelet Volume 11.1 fl (7.4-10.4); Monocytes Absolute Auto 0.9 K/mm3 (0.1-0.6); Monocytes Percent Auto 12.8 % (2.6-8.5); Neutrophils Absolute Auto 4.9 K/mm3 (1.3-6.7); Neutrophils Percent Auto 70.2 % (45.5-73.1); Platelet Count Result 286 k/mm3 (150-375); Red Blood Count 2.35 M/mm3 (4.2-5.4); Red Cell Distribution Width 15.9 % (11.5-14.5); White Blood Count 6.9 K/mm3 (4.5-10.0)
[2023-04-09 16:51] LABS: Hemoglobin 6.6 g/dL (12.0-15.0)
--- NOTE | 2023-04-09 16:52 | ED.RECABL ---
HPI - Recheck/Abnormal Lab/Rx General Chief Complaint: Recheck/Abnormal Lab/Rx Stated Complaint: abn labs Time Seen by Provider: 04/09/23 16:05 History of Present Illness HPI narrative: Patient is an 88-year-old female who presents ER with reports of low oxygen and low hemoglobin from [facility] dialysis. Patient is alert and oriented x2. She is a poor historian and cannot give the name of her doctors. She denies any symptoms at this time. Patient has been admitted in the past for fluid overload with increased hypoxia. She typically wears 4 L of nasal cannula oxygen. She is currently requiring 6 L. Related Data Home Medications Medication Instructions Recorded Confirmed atorvastatin 20 mg tablet 20 mg PO HS 06/22/21 03/19/23 ergocalciferol (vitamin D2) 1,250 50,000 unit PO WEEKLY 06/22/21 03/19/23 mcg (50,000 unit) capsule latanoprost 0.005 % eye drops 1 drp EACH EYE HS 06/22/21 03/19/23 spironolactone 25 mg tablet 12.5 mg PO DAILY 06/22/21 03/19/23 acetaminophen 650 mg tablet 650 mg PO Q6H PRN Pain (Scale 07/21/22 03/19/23 Score 1-3) buspirone 7.5 mg tablet 7.5 mg PO BID 07/21/22 03/19/23 sevelamer carbonate 0.8 gram oral 0.8 g PO TID 01/19/23 03/19/23 powder packet (Renvela) Allergies Allergy/AdvReac Type Severity Reaction Status Date / Time adhesive tape Allergy Unknown PLASTIC Verified 04/09/23 16:12 TAPE hydrochlorothiazide Allergy Unknown Verified 04/09/23 16:12 latex Allergy Rash Verified 04/09/23 16:12 Review of Systems Review of Systems: ROS unobtainable: Yes unobtainable due to medical condition PMFSH Past Medical History Medical History Chronic anemia Chronic obstructive pulmonary disease Chronic respiratory failure with hypoxia On 2 to 3 liters nasal cannula. COVID-19 (06/2021) Diastolic dysfunction End-stage renal disease on hemodialysis Erythropoietin deficiency anemia Gastroesophageal reflux disease Glaucoma Hyperlipidemia Hypertension Hypothyroidism Osteoarthritis Pulmonary hypertension Renal osteodystrophy Type 2 diabetes mellitus Diet-controlled. Vitamin D deficiency Surgical History Surgical History Status post creation of arteriovenous fistula Left upper extremity. Family History Family History Other Diabetes mellitus Hypertension Social History Social History Social History: Surrogate decision maker: Amy Contreras, roman. Code status: Do not resuscitate. 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 Spiritual care concerns: No Exam Narrative: GENERAL: Chronically ill-appearing, well-nourished, and in no acute distress. HEAD: Normocephalic, atraumatic. ENT: Mucous membranes moist. NECK: Supple. CHEST: Clear to auscultation. No respiratory distress. HEART: Regular rate and rhythm. Normal peripheral pulses. ABDOMEN: Soft, nontender, nondistended. EXTREMITIES: Normal range of motion. No edema. SKIN: Warm, dry, no rash. NEURO: Hard of hearing. Heart alert and oriented x2. PSYCH: Normal mood and affect. Course Course Emergency Course: Patient resting comfortably. Blood ordered for transfusion. Will require observation i
[2023-04-09 16:53] LABS: INR 0.9; Prothrombin Time 12.2 Seconds (11.1-14.7)
[2023-04-09 16:54] LABS: Partial Thromboplastin Time 27.8 SECONDS (22.3-36.8)
[2023-04-09 16:55] LABS: Hypochromasia 1+ (NORMAL); Platelet Estimate Adequate (Adequate); Schistocytes None Seen (NORMAL)
[2023-04-09 16:56] LABS: Anisocytosis 2+ (NORMAL)
[2023-04-09 17:02] LABS: Alanine Aminotransferase 9 U/L (6-35); Albumin Level 4.1 g/dL (3.5-5.1); Alkaline Phosphatase 72 U/L (38-126); Anion Gap 5 mmol/L (8-16); Aspartate Amino Transferase 25 U/L (14-36); Bilirubin,Total 0.4 mg/dL (0.2-1.3); Blood Urea Nitrogen 20 mg/dL (7-17); Calcium 8.6 mg/dL (8.4-10.2); Carbon Dioxide 39 mmol/L (22-30); Chloride 93 mmol/L (98-107); Estimated Glomerular Filt Rate 20; Glucose 121 mg/dL (65-110); Potassium 3.9 mmol/L (3.4-5.0); Sodium 137 mmol/L (137-145)
[2023-04-09] MEDS: SODIUM CHLORIDE 0.9% IV 250 ML 30 ML IV CONT (18:04)
[2023-04-09] MEDS: TUBING, BLOOD SET 1 EACH XX (18:10)
--- NOTE | 2023-04-09 18:11 | PC.NURSE ---
Consent signed for blood transfusion in pts chart
--- NOTE | 2023-04-09 19:15 | PC.NURSE ---
Assumed care of pt. at this time. Report from SARBJIT Sanchez
--- NOTE | 2023-04-09 20:57 | PM.IMHP ---
H&P: HPI History of Present Illness Date/Time: 04/09/23 20:30 Chief Complaint: Hypoxia and abnormal labs. Narrative: This is an 88-year-old female with end-stage renal disease on hemodialysis, chronic respiratory failure on 2 to 3 L nasal cannula, chronic obstructive pulmonary disease, pulmonary hypertension, diastolic dysfunction, hypertension, chronic anemia, diet-controlled diabetes, dementia presented to the emergency department via EMS for evaluation of hypoxia and abnormal labs.?The patient provides the following history. She was at dialysis today (she reports that she completed her session though that has not been confirmed) and she was sent to the ED for evaluation as she had increasing oxygen requirements (typically on 4 L but requiring 6 L) and a hemoglobin of 6.3 on labs drawn yesterday. Aside from mild shortness of breath, which she states is chronic, she has no other complaints. She specifically denies fever, chills, sweats, chest pain, shortness a breath, pleuritic pain, nausea, vomiting, diarrhea, melena, and hematochezia. In the ED: Blood pressures were stable on arrival. Labs were significant for hemoglobin and hematocrit of 6.6 and 22.7% respectively, BUN 20, creatinine 2.30, sodium, 137, potassium 3.9. Chest x-ray showed small stable pleural effusions and bibasilar airspace opacities consistent with atelectasis versus pneumonia. She is being admitted in this setting for blood transfusion. Review of Systems Review of Systems: Twelve systems were reviewed and are negative except for as per HPI. [facility] Past Medical History Medical History Chronic anemia Chronic obstructive pulmonary disease Chronic respiratory failure with hypoxia On 2 to 3 liters nasal cannula. COVID-19 (06/2021) Diastolic dysfunction End-stage renal disease on hemodialysis Erythropoietin deficiency anemia Gastroesophageal reflux disease Glaucoma Hyperlipidemia Hypertension Hypothyroidism Osteoarthritis Pulmonary hypertension Renal osteodystrophy Type 2 diabetes mellitus Diet-controlled. Vitamin D deficiency Surgical History Surgical History Status post creation of arteriovenous fistula Left upper extremity. Family History Family History Other Diabetes mellitus Hypertension Social History Social History Social History: Surrogate decision maker: Amy Contreras, son. Code status: Do not resuscitate. 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 Spiritual care concerns: No Meds Home Medications and Allergies Home Medications Medication Instructions Recorded Confirmed Type atorvastatin 20 mg tablet 20 mg PO HS 06/22/21 04/10/23 History ergocalciferol (vitamin D2) 1,250 50,000 unit PO WEEKLY 06/22/21 04/10/23 History mcg (50,000 unit) capsule latanoprost 0.005 % eye drops 1 drp EACH EYE HS 06/22/21 04/10/23 History spironolactone 25 mg tablet 12.5 mg PO DAILY 06/22/21 04/10/23 History amlodipine 5 mg tablet (Norvasc) 10 mg PO QAM 30 days #60 tabs 03/24/22 04/10/23 Rx ferrous sulfate 325 mg (65 mg 324 mg PO BIDWM #60 tabs 04/11/22 04/10/23 Rx iron) tablet levothyroxine 100 mcg tablet 100 mcg PO DAILY@0630
--- NOTE | 2023-04-09 22:28 | ADMGEN ---
This patient, Sofía Contreras, was admitted to Medical Room 245-. Patient/family oriented to hospital policies and general routines including ID bracelet, bed and alarms, visiting hours, pain management, procedures, bathroom and other care routines, personal items, smoking policy, room service/diet, and visiting hours. Information on how to activate the Rapid Response Team has been discussed. Patient/Family are encouraged to report perceived risks to care and to ask questions if they do not understand what they are told or what they should do.
[2023-04-10] VITALS (34 sets, daily range): BP systolic 133–157; BP diastolic 36–63; PULSE 65–74; RESP 14–20; TEMP 36.4–37.1; O2SAT 85–100; BMI 25.2
[2023-04-10] MEDS: LEVOTHYROXINE SODIUM 100 MCG TABLET PO (05:32)
[2023-04-10 06:17] LABS: Hematocrit 27.4 % (37.0-47.0); Hemoglobin 8.3 g/dL (12.0-15.0); Mean Corpuscular HGB Conc 30.3 g/dl (32-36); Mean Corpuscular Hemoglobin 28.2 pg (26-34); Mean Corpuscular Volume 93.2 fl (80-100); Mean Platelet Volume 11.2 fl (7.4-10.4); Platelet Count Result 231 k/mm3 (150-375); Red Blood Count 2.94 M/mm3 (4.2-5.4); Red Cell Distribution Width 17.7 % (11.5-14.5); White Blood Count 7.1 K/mm3 (4.5-10.0)
[2023-04-10 06:38] LABS: Anion Gap 4 mmol/L (8-16); Blood Urea Nitrogen 32 mg/dL (7-17); Calcium 8.5 mg/dL (8.4-10.2); Carbon Dioxide 36 mmol/L (22-30); Chloride 96 mmol/L (98-107); Estimated CRCL calculation 12 ml/min; Estimated Glomerular Filt Rate 13; Glucose 78 mg/dL (65-110); Sodium 136 mmol/L (137-145)
[2023-04-10] MEDS: FUROSEMIDE INJ 40 MG/4 ML VIAL 10 MG IV PUSH (06:54)
[2023-04-10 07:51] LABS: Glucose Point of Care 71 mg/dl (65-105)
[2023-04-10] MEDS: SPIRONOLACTONE 12.5 MG TABLET PO (10:19)
[2023-04-10] MEDS: busPIRone HCL 10 MG TABLET PO ×2 (10:19→18:09)
[2023-04-10] MEDS: DOCUSATE SODIUM 100 MG CAPSULE PO ×2 (10:19→21:49)
[2023-04-10] MEDS: SEVELAMER CARBONATE 800 MG TABLET PO ×3 (10:20→18:09)
[2023-04-10] MEDS: ESCITALOPRAM OXALATE 10 MG TABLET PO (10:20)
[2023-04-10] MEDS: lisinopriL 20 MG TABLET PO (10:20)
[2023-04-10] MEDS: PANTOPRAZOLE 40 MG TABLET PO (10:20)
[2023-04-10] MEDS: amLODIPine BESYLATE 5 MG TABLET 10 MG PO (10:27)
--- NOTE | 2023-04-10 11:08 | PM.IMPN ---
Progress Note: A&P Assessment and Plan (1) Shortness of breath: Code(s): R06.02 - Shortness of breath Status: Acute Assessment and Plan: Likely secondary to severe anemia, multifactorial with h/o COPD, however, reassess after transfusion (2) Profound anemia: Code(s): D64.9 - Anemia, unspecified Status: Acute Assessment and Plan: Currently being transfused, reassess symptoms after Monitor hemoglobin closely Check stool occult Extensive history of anemia workup with GI and Hematology (3) End-stage renal disease on hemodialysis: Code(s): N18.6 - End stage renal disease; Z99.2 - Dependence on renal dialysis Status: Acute Assessment and Plan: Nephrology consult for dialysis (4) Chronic respiratory failure with hypoxia: Code(s): J96.11 - Chronic respiratory failure with hypoxia Status: Chronic (5) Chronic obstructive pulmonary disease: Code(s): J44.9 - Chronic obstructive pulmonary disease, unspecified Status: Acute Assessment and Plan: Does not appear to be in acute exacerbation (6) Hypertension: Code(s): I10 - Essential (primary) hypertension Status: Chronic Assessment and Plan: Blood pressure reviewed 04/10 (7) Hypothyroidism: Code(s): E03.9 - Hypothyroidism, unspecified Status: Acute Assessment and Plan: Check TSH, cont levothyroxine Plan DVT prophylaxis with SCDs GI prophylaxis with PPI Code status DNR Subjective Date/time seen: 04/10/23 11:08 Interval history: 88-year-old female with end-stage renal disease on hemodialysis, chronic respiratory failure on 2 to 3 L nasal cannula, chronic obstructive pulmonary disease, pulmonary hypertension, diastolic dysfunction, hypertension, chronic anemia, diet-controlled diabetes, dementia presented to the emergency department via EMS for evaluation of hypoxia and low hgb and is being transfused. No overnight events noted. No fevers. Exam Narrative: in dialysis Objective Data Vital Signs Vital Signs: Vital Signs - 24 hr 04/09/23 16:13 04/09/23 16:14 04/09/23 16:14 Temperature Pulse Rate 72 Respiratory Rate 20 Blood Pressure 124/39 L Pulse Oximetry 88 L 88 L 90 Oxygen Delivery Nasal Cannula Nasal Cannula Oxygen Flow Rate 3 5 Fraction of Inspired Oxygen 04/09/23 16:15 04/09/23 16:15 04/09/23 16:14 Temperature Pulse Rate Respiratory Rate Blood Pressure 122/40 L Pulse Oximetry 93 87 L Oxygen Delivery Nasal Cannula Nasal Cannula Oxygen Flow Rate 6 4 Fraction of Inspired Oxygen 04/09/23 18:05 04/09/23 18:14 04/09/23 18:17 Temperature 98.3 F Pulse Rate 70 Respiratory Rate 20 Blood Pressure 132/41 L Pulse Oximetry 100 100 100 Oxygen Delivery Nasal Cannula Nasal Cannula Oxygen Flow Rate 4 3 Fraction of Inspired Oxygen 04/09/23 18:22 04/09/23 18:22 04/09/23 17:46 Temperature 98.3 F 98.3 F Pulse Rate 69 69 86 Respiratory Rate 18 18 25 H Blood Pressure 126/42 L 126/42 L Pulse Oximetry 100 100 Oxygen Delivery Oxygen Flow Rate Fraction of Inspired Oxygen 04/09/23 18:00 04/09/23 18:01 04/09/23 18:16 Temperature Pulse Rate 69 69 75 Respiratory Rate 21 H 21 H 22 H Blood Pressure 132/41 L Pulse Oximetry Oxygen Delivery Oxygen Flow Rate Fraction of Inspired Oxygen 04/09/23 18:17 04/09/23 18:18 04/09/23 18:35 Temperature Pulse Rate 69 73 71 Respiratory Rate 20 20 22 H Blood Pressure 126/37 L Pulse Oximetry Oxygen Delivery Oxygen Flow Rate Fraction of Inspired Oxygen 04/09/23 19:15 04/09/23 20:06 04/09/23 19:15 Temperature 98.1 F 98.7 F 97.7 F Pulse Rate 79 73 65 Respiratory Rate 21 H 18 18 Blood Pressure 132/51 L 148/57 H 145/80 H Pulse Oximetry 95 98 99 Oxygen Delivery Oxygen Flow Rate Fraction of Inspired Oxygen 04/09/23 20:20 04/09/23 21:20 04/09/23 19:
[2023-04-10 11:25] LABS: Hepatitis B Surface Antigen Negative (Negative)
[2023-04-10 11:43] LABS: Hepatitis B Surface Anti Res Negative
[2023-04-10 11:52] LABS: Glucose Point of Care 95 mg/dl (65-105)
[2023-04-10] MEDS: FERROUS SULFATE 325 MG TABLET DR PO ×2 (12:55→18:09)
--- NOTE | 2023-04-10 13:10 | PM.CNNEP ---
Assessment and Plan Assessment and plan (1) End stage renal disease: Code(s): N18.6 - End stage renal disease Status: Chronic Assessment and Plan: HD tomorrow continue M/W/F dialysis schedule while hospitalized follow electrolytes, volume status, and clearance (2) Acute on chronic respiratory failure with hypoxia: Code(s): J96.21 - Acute and chronic respiratory failure with hypoxia Status: Acute Assessment and Plan: increase work of breathing noted multifactorial etiology: known hx of COPD volume overload pulmonary HTN chronic anemia on supplemental oxygen at baseline plan DUF today for fluid removal PRBC transfusion per protocol follow respiratory status (3) Anemia: Code(s): D64.9 - Anemia, unspecified Status: Chronic Assessment and Plan: chronic issue/problem partly related to ESRD but acute blood loss a concern Epogen with HD PRBC transfusion per protocol GI recommendations noted on previous admissions -- no further endoscopy procedures planned follow trend H/H (4) Hypertension: Code(s): I10 - Essential (primary) hypertension Status: Chronic Assessment and Plan: reasonable control continue home medications follow trend of hemodynamics (5) Diabetes: Code(s): E11.9 - Type 2 diabetes mellitus without complications Status: Chronic Assessment and Plan: follow accuchecks glycemic control per hospitalists I will continue to follow the patient with you while she remains hospitalized and make further recommendations as needed. Thank you for allowing me to participate in the care of this patient. History of Present Illness Reason for Consult Consult date: 04/10/23 Reason for consult: end stage renal disease Chief Complaint Chief complaint: Anemia, Increased O2 Requirement History of Present Illness Narrative: The patient is an 88-year-old female with a past medical history as outlined below who was transferred from her dialysis facility via EMS for further evaluation of shortness of breath, hypoxia, and abnormal labs. The patient apparently completed her dialysis treatment but complained of shortness of breath once that she treatment concluded. she is on chronic supplemental oxygen therapy and this was increased given her complaints of shortness of breath but this did not seem to improve her symptoms. This was further complicated by the fact that she had labs drawn recently at dialysis did demonstrate a hemoglobin of 6.3. Given these issues, she was transported to the emergency room for further assessment. Workup and evaluation emergency room demonstrated the patient be hemodynamically stable although she was still requiring 6 L of oxygen to maintain her oxygen saturations when normally she is on 3-4 L at baseline. Repeat labs once again confirmed her anemia with a hemoglobin of 6.6 and hematocrit 22.7 and chemistry panel demonstrated labs consistent with her known history of end-stage renal disease. Her chest x-ray showed small stable pleural effusions and bibasilar air space opacities consistent with atelectasis versus pneumonia. It was felt that some of her shortness of breath / hypoxia may be related to her anemia so she was typed and crossed and admitted for packed red blood cell transfusion and further evaluation and therapy Since her admission, she received the packed red blood cell transfusions overnight but there was concern now that she may have some mild volume overload from the packed red blood cell transfusion as she is even more hypoxic and requiring more significant oxygen therapy at this time. Renal consultation was requested due to her end-stage renal disease. The patient normally does dialysis on a Sunday, Sunday, and Sunday dialysis schedule under the care of Dr. Hayden Waite at [facility]. I believe she received her scheduled dialysis daisy
[2023-04-10] MEDS: ALBUTEROL SULFATE NEB 2.5 MG/3 ML INH INHALATION (16:51)
[2023-04-10 17:06] LABS: Glucose Point of Care 91 mg/dl (65-105)
[2023-04-10 17:44] LABS: Alveolar/Arterial O2 Gradient 111.8 mmHg; Base Excess ABG 7.6 mEq/l (+/-2.0); Fractional Inspired Oxygen 35 %; HCO3 ABG 33.1 mEq/l (22.0-26.0); Oxygen Content ABG 12.8 %vol (16.0-22.0); Oxygen Saturation ABG 95.4 % (95.0-100.0); PCO2 ABG 52.4 mmHg (35.0-45.0); PO2 ABG 76.8 mmHg (80.0-100.0); PO2 FiO2 Ratio Arterial Blood 2.19 %; Total Hemoglobin 9.6 g/dL (12.0-18.0); pH ABG 7.419 (7.350-7.450)
[2023-04-10 17:46] LABS: Device VENTURI MASK; Modified Allen's Test Pass; Site Drawn RIGHT RADIAL
--- NOTE | 2023-04-10 17:54 | PCRCNOTE ---
Addendum entered by Adelia Ramirez, DATA COLLECTION ASSOCIATE 04/10/23 17:58: Patient breathing with her mouth open. Original Note: RN notified this RT stating Patient's SpO2 is 85% on 6L NC. RT assessed patient. PRN breathing tx given. After breathing tx, patient SpO2 remained 86-87% on 6L NC. RT placed patient on Venturi Mask 12L 40%. Patient SpO2 99% on 12L 40% Venturi Mask. RT titrated patient to keep SpO2 >92%. Patient is currently on Venturi Mask 6L 30%. RN aware.
[2023-04-10] MEDS: MAG HYDROX/AL HYDROX/SIMETH 30 ML UDC PO (20:26)
[2023-04-10] MEDS: ALPRAZolam (*CRX) 0.5 MG TABLET PO (21:49)
[2023-04-10] MEDS: ATORVASTATIN 20 MG TABLET PO (21:49)
[2023-04-10] MEDS: LATANOPROST 0.005% OP SOLN 2.5 ML BTL 1 DROP EACH EYE (21:50)
[2023-04-11] VITALS (23 sets, daily range): BP systolic 92–140; BP diastolic 28–65; PULSE 57–70; RESP 18–20; TEMP 36.1–37; O2SAT 86–100
[2023-04-11 05:28] LABS: Basophils Absolute Auto 0.1 K/mm3 (0.0-0.1); Eosinophils Absolute Auto 0.6 K/mm3 (0-0.3); Eosinophils Percent Auto 9.2 % (0-4.4); Hematocrit 27.7 % (37.0-47.0); Hemoglobin 8.1 g/dL (12.0-15.0); Immature Granulocyte Absolute 0.07 K/mm3 (0.00-0.031); Immature Granulocyte Percent A 1.1 % (0-0.5); Lymphocytes Absolute Auto 0.64 K/mm3 (0.9-3.2); Lymphocytes Percent Auto 10.2 % (18.3-44.2); Mean Corpuscular HGB Conc 29.2 g/dl (32-36); Mean Corpuscular Hemoglobin 27.6 pg (26-34); Mean Corpuscular Volume 94.5 fl (80-100); Mean Platelet Volume 11.4 fl (7.4-10.4); Monocytes Absolute Auto 0.8 K/mm3 (0.1-0.6); Monocytes Percent Auto 12.6 % (2.6-8.5); Neutrophils Absolute Auto 4.1 K/mm3 (1.3-6.7); Neutrophils Percent Auto 65.9 % (45.5-73.1); Platelet Count Result 252 k/mm3 (150-375); Red Blood Count 2.93 M/mm3 (4.2-5.4); Red Cell Distribution Width 17.1 % (11.5-14.5); White Blood Count 6.3 K/mm3 (4.5-10.0)
[2023-04-11 05:43] LABS: Alanine Aminotransferase 7 U/L (6-35); Albumin Level 3.5 g/dL (3.5-5.1); Alkaline Phosphatase 60 U/L (38-126); Anion Gap 6 mmol/L (8-16); Aspartate Amino Transferase 18 U/L (14-36); Bilirubin,Total 0.4 mg/dL (0.2-1.3); Blood Urea Nitrogen 51 mg/dL (7-17); Calcium 8.5 mg/dL (8.4-10.2); Carbon Dioxide 35 mmol/L (22-30); Chloride 93 mmol/L (98-107); Estimated CRCL calculation 9 ml/min; Estimated Glomerular Filt Rate 9; Glucose 82 mg/dL (65-110); Potassium 4.2 mmol/L (3.4-5.0); Sodium 134 mmol/L (137-145)
[2023-04-11] MEDS: LEVOTHYROXINE SODIUM 100 MCG TABLET PO (06:15)
[2023-04-11 07:06] LABS: Platelet Estimate Adequate (Adequate)
[2023-04-11 07:07] LABS: Ovalocytes 1+ (NORMAL); Poikilocytosis 1+ (NORMAL)
[2023-04-11 07:08] LABS: Large Platelets Present; Schistocytes None Seen (NORMAL)
[2023-04-11 07:11] LABS: Hypochromasia 1+ (NORMAL)
[2023-04-11 07:57] LABS: Glucose Point of Care 81 mg/dl (65-105)
[2023-04-11] MEDS: DOCUSATE SODIUM 100 MG CAPSULE PO ×2 (08:26→22:10)
[2023-04-11] MEDS: ESCITALOPRAM OXALATE 10 MG TABLET PO (08:26)
[2023-04-11] MEDS: SEVELAMER CARBONATE 800 MG TABLET PO ×3 (08:26→16:22)
[2023-04-11] MEDS: PANTOPRAZOLE 40 MG TABLET PO (08:26)
[2023-04-11] MEDS: busPIRone HCL 10 MG TABLET PO ×2 (08:26→16:19)
--- NOTE | 2023-04-11 08:27 | PC.NURSE ---
Holding patient blood pressure PO medication until patient returns from dialysis this AM
--- NOTE | 2023-04-11 10:05 | PM.PNNEP ---
Progress Note: A&P Assessment and Plan (1) End stage renal disease: Code(s): N18.6 - End stage renal disease Status: Chronic Assessment and Plan: HD today continue M/W/F dialysis schedule while hospitalized follow electrolytes, volume status, and clearance (2) Acute on chronic respiratory failure with hypoxia: Code(s): J96.21 - Acute and chronic respiratory failure with hypoxia Status: Acute Assessment and Plan: increase work of breathing noted multifactorial etiology: known hx of COPD volume overload pulmonary HTN chronic anemia on supplemental oxygen at baseline s/p DUF yesterday for fluid removal PRBC transfusion per protocol follow respiratory status (3) Anemia: Code(s): D64.9 - Anemia, unspecified Status: Chronic Assessment and Plan: chronic issue/problem partly related to ESRD but acute blood loss always a concern Epogen with HD PRBC transfusion per protocol GI recommendations noted on previous admissions -- no further endoscopy procedures planned follow trend H/H (4) Hypertension: Code(s): I10 - Essential (primary) hypertension Status: Chronic Assessment and Plan: reasonable control continue home medications follow trend of hemodynamics (5) Diabetes: Code(s): E11.9 - Type 2 diabetes mellitus without complications Status: Chronic Assessment and Plan: follow accuchecks glycemic control per hospitalists Will continue to follow. Subjective Date/time seen: 04/11/23 10:05 Interval history: Follow-up for end stage renal disease on hemodialysis. Tolerating hemodialysis treatment at the time of my visit (seen on HD at 9:55AM); tolerated dry ultrafiltration session yesterday with 2.5L fluid removal; breathing seems stable if not a bit better; no other issues/events overnight or earlier this morning. Exam Narrative: General: elderly and chronically ill-appearing female in NAD Heart: normal S1 and S2; no rub Lungs: coarse breath sounds; decreased at basese Abdomen: soft, nondistended, positive bowel sounds Extremities: no cyanosis or clubbing; trace edema Skin: warm and dry Objective Data Vital Signs Vital Signs: Vital Signs Temp Pulse Resp BP Pulse Ox O2 Del Method O2 Flow Rate 04/11/23 09:45 57 L 112/39 L 04/11/23 09:37 60 117/44 L 04/11/23 09:27 98.1 F 62 18 126/44 L 04/11/23 09:27 3 04/11/23 08:53 96 Nasal Cannula 3 04/11/23 08:38 100 Nasal Cannula 5 04/11/23 04:00 70 04/11/23 00:00 67 04/10/23 20:00 70 04/11/23 03:49 98.2 F 67 20 140/46 L 96 04/10/23 20:30 High Flow Nasal Cannula 5 04/10/23 21:13 97.6 F 68 20 139/37 L 99 04/10/23 19:58 65 93 Nasal Cannula 5 04/10/23 18:59 93 High Flow Therapy with Na 6 04/10/23 16:00 67 04/10/23 17:53 93 Venturi Mask 6 04/10/23 17:36 95 Venturi Mask 9 04/10/23 17:13 99 Venturi Mask 12 04/10/23 16:51 88 L Nasal Cannula 6 04/10/23 16:58 65 20 04/10/23 16:51 66 20 04/10/23 16:35 97.9 F 66 20 146/36 H 85 L 04/10/23 15:31 66 141/58 H 04/10/23 15:15 65 133/48 L 04/10/23 15:00 65 134/48 L 04/10/23 15:40 98.2 F 67 16 144/51 H 04/10/23 14:45 65 136/50 L 04/10/23 14:30 68 143/51 H 04/10/23 14:15 66 147/54 H 04/10/23 14:00 67 142/56 H 04/10/23 13:45 67 136/53 L 04/10/23 13:30 67 140/54 L 04/10/23 13:15 71 157/59 H 04/10/23 13:00 66 137/63 04/10/23 12:45 67 143/56 H 04/10/23 12:29 67 151/58 H 04/10/23 12:20 98.7 F 68 16 142/56 H 04/10/23 12:20 6 04/10/23 12:00 69 04/10/23 10:19 92 Nasal Cannula 6 04/10/23 10:26 68 14 144/50 H 92 Intake/Output Intake/Output: Intake & Output 04/08/23 11
--- NOTE | 2023-04-11 10:05 | P.PNNP_ITS ---
Progress Note: A&P Assessment and Plan (1) End stage renal disease: Code(s): N18.6 - End stage renal disease Status: Chronic Assessment and Plan: * HD today * continue M/W/F dialysis schedule while hospitalized * follow electrolytes, volume status, and clearance (2) Acute on chronic respiratory failure with hypoxia: Code(s): J96.21 - Acute and chronic respiratory failure with hypoxia Status: Acute Assessment and Plan: * increase work of breathing noted * multifactorial etiology: * known hx of COPD * volume overload * pulmonary HTN * chronic anemia * on supplemental oxygen at baseline * s/p DUF yesterday for fluid removal * PRBC transfusion per protocol * follow respiratory status (3) Anemia: Code(s): D64.9 - Anemia, unspecified Status: Chronic Assessment and Plan: * chronic issue/problem * partly related to ESRD but acute blood loss always a concern * Epogen with HD * PRBC transfusion per protocol * GI recommendations noted on previous admissions -- no further endoscopy procedures planned * follow trend H/H (4) Hypertension: Code(s): I10 - Essential (primary) hypertension Status: Chronic Assessment and Plan: * reasonable control * continue home medications * follow trend of hemodynamics (5) Diabetes: Code(s): E11.9 - Type 2 diabetes mellitus without complications Status: Chronic Assessment and Plan: * follow accuchecks * glycemic control per hospitalists Will continue to follow. Subjective Date/time seen: 04/11/23 10:05 Interval history: Follow-up for end stage renal disease on hemodialysis. Tolerating hemodialysis treatment at the time of my visit (seen on HD at 9:55AM); tolerated dry ultrafiltration session yesterday with 2.5L fluid removal; breathing seems stable if not a bit better; no other issues/events overnight or earlier this morning. Exam Narrative: General: elderly and chronically ill-appearing female in NAD Heart: normal S1 and S2; no rub Lungs: coarse breath sounds; decreased at basese Abdomen: soft, nondistended, positive bowel sounds Extremities: no cyanosis or clubbing; trace edema Skin: warm and dry Objective Data Vital Signs Vital Signs: Vital Signs Temp Pulse Resp BP Pulse Ox O2 Del Method O2 Flow Rate 04/11/23 09:45 57 L 112/39 L 04/11/23 09:37 60 117/44 L 04/11/23 09:27 98.1 F 62 18 126/44 L 04/11/23 09:27 3 04/11/23 08:53 96 Nasal Cannula 3 04/11/23 08:38 100 Nasal Cannula 5 04/11/23 04:00 70 04/11/23 00:00 67 04/10/23 20:00 70 04/11/23 03:49 98.2 F 67 20 140/46 L 96 04/10/23 20:30 High Flow Nasal Cannula 5 04/10/23 21:13 97.6 F 68 20 139/37 L 99 04/10/23 19:58 65 93 Nasal Cannula 5 04/10/23 18:59 93 High Flow Therapy with Na 6 04/10/23 16:00 67 04/10/23 17:53 93 Venturi Mask 6 04/10/23 17:36 95 Venturi Mask 9 04/10/23 17:13 99 Venturi Mask 12 04/10/23 16:51 88 L Nasal Cannula 6 04/10/23 16:58 65 20 04/10/23 16:51 66 20 04/10/23 16:35 97.9 F 66 20 146/36 H 85 L 04/10/23 15:
[2023-04-11] MEDS: ALBUMIN HUMAN 25% 12.5 GM/50ML 50 ML IVPB ×2 (10:22→10:40)
[2023-04-11] MEDS: EPOETIN ALFA 20,000 UNITS/ML VIAL 20000 UNITS IV PUSH (10:43)
[2023-04-11] MEDS: FERROUS SULFATE 325 MG TABLET DR PO ×2 (12:46→16:19)
[2023-04-11] MEDS: lisinopriL 20 MG TABLET PO (12:46)
[2023-04-11] MEDS: amLODIPine BESYLATE 5 MG TABLET 10 MG PO (12:47)
[2023-04-11] MEDS: SPIRONOLACTONE 12.5 MG TABLET PO (12:47)
--- NOTE | 2023-04-11 12:48 | PC.NURSE ---
Patient back from dialysis. Caught patient up on missed AM blood pressure medications lisinopril, amlodipine, hydrochlorothiazide.
[2023-04-11 12:50] LABS: Glucose Point of Care 96 mg/dl (65-105)
--- NOTE | 2023-04-11 18:00 | PM.IMPN ---
Progress Note: A&P Assessment and Plan (1) Shortness of breath: Code(s): R06.02 - Shortness of breath Status: Acute Assessment and Plan: CXR also showing effusions and lower lung zone airspace disease. SOB likely multifactorial secondary to severe anemia, COPD, and fluid overload. On her chronic 2-3L currently and appears stable. Was here last month with similar findings with CTA negative for PE and dopple negative for DVT. Follow. HD to control fluid status. (2) Profound anemia: Code(s): D64.9 - Anemia, unspecified Status: Acute Assessment and Plan: Hgb 6.6 on admission. She received 2U PRBC. Hgb improved to 8 range and stable. Patient with chronic anemia.? Baseline hemoglobin probably in the 7-9 range.? Patient noted be iron deficient in November but not in March.? Folate normal in November.? B12 level was 269 and MMA was 2136 in March (MMA elevated due to ESRD) She was guaiac positive in January. EGD in October showed multiple gastric and duodenal polyps.? Pathology was benign. She is on iron on admission.? Extensive history of anemia workup with GI and Hematology. Resume B12 (3) End-stage renal disease on hemodialysis: Code(s): N18.6 - End stage renal disease; Z99.2 - Dependence on renal dialysis Status: Acute Assessment and Plan: Nephrology consult for dialysis. Plan to repeat HD tomorrow. Home after HD (4) Chronic respiratory failure with hypoxia: Code(s): J96.11 - Chronic respiratory failure with hypoxia Status: Chronic Assessment and Plan: Patient with chronic respiratory failure on 3 L O2 nasal cannula.? She is stable on her 3 L. Continue to follow. (5) Chronic obstructive pulmonary disease: Code(s): J44.9 - Chronic obstructive pulmonary disease, unspecified Status: Acute Assessment and Plan: Stable Does not appear to be in acute exacerbation (6) Hypertension: Code(s): I10 - Essential (primary) hypertension Status: Chronic Assessment and Plan: Patient's blood pressure was reviewed on 04/11 Blood pressure remains well controlled; soft at time during dialysis Will continue to monitor (7) Hypothyroidism: Code(s): E03.9 - Hypothyroidism, unspecified Status: Acute Assessment and Plan: TSH 20. Advance levothyroxine Plan DVT prophylaxis with SCDs GI prophylaxis with PPI Code status DNR Subjective Date/time seen: 04/11/23 18:00 Interval history: 88-year-old female with ESRD on hemodialysis, chronic respiratory failure on 2 to 3 L nasal cannula, COPD, pulmonary hypertension, diastolic dysfunction, hypertension, chronic anemia, diet-controlled diabetes, dementia presented to the emergency department via EMS for evaluation of hypoxia and low hgb and is being transfused. Assuming care. Chart reviewed. She feels SOB today. She denies CP. No n/v. Had only partial HD today due to machine malfunction. Exam Narrative: AF 98.6 132/40 68 20 91% 3L Gen - NARD Chest - coarse BS diffusely. CV - RRR S1/S2 Abd - Soft, NT/ND, Positive BS Ext - No pedal edema. Thrill and bruit to the LUE Psych - Nml mood and affect Skin - Warm and dry Objective Data Vital Signs Vital Signs: Vital Signs - 24 hr 04/10/23 18:59 04/10/23 19:58 04/10/23 21:13 Temperature 97.6 F Pulse Rate 65 68 Respiratory Rate 20 Blood Pressure 139/37 L Pulse Oximetry 93 93 99 Oxygen Delivery High Flow Therapy with Na Nasal Cannula Oxygen Flow Rate 6 5 Fraction of Inspired Oxygen 04/10/23 20:30 04/11/23 03:49 04/10/23 20:00 Temperature 98.2 F Pulse Rate 67 70 Respiratory Rate 20 Blood Pressure 140/46 L Pulse Oximetry 96 Oxygen Delivery High Flow Nasal Cannula Oxygen Flow Rate 5 Fraction of Inspired Oxygen 04/11/23 00:00 04/11/23 04:00 04/11/23 08:38 Temperature Pulse Rate 67 70 Respiratory Rate Blood Pressure Pulse Ox
[2023-04-11] MEDS: CYANOCOBALAMIN INJ 1,000 MCG/ML VIAL 1000 MCG IM (18:17)
[2023-04-11] MEDS: ALBUTEROL SULFATE NEB 2.5 MG/3 ML INH INHALATION (21:23)
[2023-04-11] MEDS: ATORVASTATIN 20 MG TABLET PO (22:10)
[2023-04-11] MEDS: LATANOPROST 0.005% OP SOLN 2.5 ML BTL 1 DROP EACH EYE (22:11)
[2023-04-12] VITALS (32 sets, daily range): BP systolic 86–147; BP diastolic 34–68; PULSE 59–78; RESP 2–20; TEMP 36.3–37; O2SAT 89–100
[2023-04-12 05:09] LABS: Basophils Absolute Auto 0.1 K/mm3 (0.0-0.1); Basophils Percent Auto 0.7 % (0.2-1.2); Eosinophils Absolute Auto 0.5 K/mm3 (0-0.3); Eosinophils Percent Auto 7.3 % (0-4.4); Hematocrit 26.6 % (37.0-47.0); Hemoglobin 7.6 g/dL (12.0-15.0); Immature Granulocyte Absolute 0.07 K/mm3 (0.00-0.031); Lymphocytes Absolute Auto 0.68 K/mm3 (0.9-3.2); Lymphocytes Percent Auto 9.8 % (18.3-44.2); Mean Corpuscular HGB Conc 28.6 g/dl (32-36); Mean Corpuscular Hemoglobin 27.6 pg (26-34); Mean Corpuscular Volume 96.7 fl (80-100); Mean Platelet Volume 11.3 fl (7.4-10.4); Monocytes Absolute Auto 0.8 K/mm3 (0.1-0.6); Monocytes Percent Auto 11.5 % (2.6-8.5); Neutrophils Absolute Auto 4.8 K/mm3 (1.3-6.7); Neutrophils Percent Auto 69.7 % (45.5-73.1); Platelet Count Result 232 k/mm3 (150-375); Red Blood Count 2.75 M/mm3 (4.2-5.4); Red Cell Distribution Width 16.3 % (11.5-14.5); White Blood Count 6.9 K/mm3 (4.5-10.0)
[2023-04-12 05:15] LABS: Alanine Aminotransferase 7 U/L (6-35); Albumin Level 3.8 g/dL (3.5-5.1); Alkaline Phosphatase 60 U/L (38-126); Anion Gap 4 mmol/L (8-16); Aspartate Amino Transferase 15 U/L (14-36); Bilirubin,Total 0.3 mg/dL (0.2-1.3); Blood Urea Nitrogen 47 mg/dL (7-17); Carbon Dioxide 34 mmol/L (22-30); Chloride 95 mmol/L (98-107); Estimated CRCL calculation 9 ml/min; Estimated Glomerular Filt Rate 10; Glucose 86 mg/dL (65-110); Potassium 4.3 mmol/L (3.4-5.0); Sodium 133 mmol/L (137-145)
[2023-04-12] MEDS: LEVOTHYROXINE SODIUM 125 MCG TABLET PO (05:44)
[2023-04-12 05:47] LABS: Anisocytosis 2+ (NORMAL); Basophilic Stippling 1+ (NORMAL); Hypochromasia 1+ (NORMAL); Platelet Estimate Adequate (Adequate); Poikilocytosis 1+ (NORMAL); Polychromasia 1+ (NORMAL)
[2023-04-12 05:48] LABS: Schistocytes Rare (NORMAL)
--- NOTE | 2023-04-12 07:45 | PC.NURSE ---
Report called to Jamir SCHAFFER in Dialysis.
--- NOTE | 2023-04-12 07:50 | PC.NURSE ---
To dialysis via bed.
--- NOTE | 2023-04-12 10:30 | P.PNNP_ITS ---
Progress Note: A&P Assessment and Plan (1) End stage renal disease: Code(s): N18.6 - End stage renal disease Status: Chronic Assessment and Plan: * HD today (since did not get a full treatment yesterday) * likely plan HD again tomorrow to maintain/continue M/W/F dialysis schedule while hospitalized * follow electrolytes, volume status, and clearance (2) Acute on chronic respiratory failure with hypoxia: Code(s): J96.21 - Acute and chronic respiratory failure with hypoxia Status: Acute Assessment and Plan: * fluctuates but noted increased oxygen requirements * multifactorial etiology: * known hx of COPD * volume overload * pulmonary HTN * chronic anemia * on supplemental oxygen at baseline * s/p DUF yesterday for fluid removal * PRBC transfusion per protocol * follow respiratory status (3) Anemia: Code(s): D64.9 - Anemia, unspecified Status: Chronic Assessment and Plan: * chronic issue/problem * partly related to ESRD but acute blood loss always a concern * Epogen with HD * PRBC transfusion per protocol * GI recommendations noted on previous admissions -- no further endoscopy procedures planned * follow trend H/H (4) Hypertension: Code(s): I10 - Essential (primary) hypertension Status: Chronic Assessment and Plan: * reasonable control * continue home medications * follow trend of hemodynamics (5) Diabetes: Code(s): E11.9 - Type 2 diabetes mellitus without complications Status: Chronic Assessment and Plan: * follow accuchecks * glycemic control per hospitalists Will continue to follow. Subjective Date/time seen: 04/12/23 10:30 Interval history: Follow-up for end stage renal disease on hemodialysis. Unable to get full dialysis treatment yesterday due to mechanical issues with dialysis machine yesterday; tolerating dialysis treatment at the time of my visit (seen on HD at 10:20AM) although fluid removal is challenging as her blood pressure is not tolerating this intervention despite IV albumin use; more hypoxic overnight with subsequent increase in supplemental oxygen currently; she also states she feels more short of breath. Exam Narrative: General: elderly and chronically ill-appearing female in NAD Heart: normal S1 and S2; no rub Lungs: coarse breath sounds; decreased at basese Abdomen: soft, nondistended, positive bowel sounds Extremities: no cyanosis or clubbing; trace edema Skin: warm and dry Objective Data Vital Signs Vital Signs: Vital Signs Temp Pulse Resp BP Pulse Ox O2 Del Method O2 Flow Rate 04/12/23 10:30 59 L 110/59 L 04/12/23 10:15 60 104/38 L 04/12/23 10:00 61 94/38 L 04/12/23 09:45 61 104/42 L 04/12/23 09:38 63 98/38 L 04/12/23 09:30 63 86/68 L 04/12/23 09:15 60 100/41 L 04/12/23 08:17 5 04/12/23 08:02 98.1 F 63 20 147/53 H 04/12/23 09:00 75 120/45 L 04/12/23 08:45 63 122/46 L 04/12/23 08:30 60 119/44 L 04/12/23 08:17 62 138/52 L 04/12/23 04:00 64 04/12/23 06:00 98.1 F 66 18 136/35 L 100 04/12/23 00:00 66 04/11/23 20:00 65 04/11/23 21:15 89 L Nasal Cannula 5
--- NOTE | 2023-04-12 10:30 | PM.PNNEP ---
Progress Note: A&P Assessment and Plan (1) End stage renal disease: Code(s): N18.6 - End stage renal disease Status: Chronic Assessment and Plan: HD today (since did not get a full treatment yesterday) likely plan HD again tomorrow to maintain/continue M/W/F dialysis schedule while hospitalized follow electrolytes, volume status, and clearance (2) Acute on chronic respiratory failure with hypoxia: Code(s): J96.21 - Acute and chronic respiratory failure with hypoxia Status: Acute Assessment and Plan: fluctuates but noted increased oxygen requirements multifactorial etiology: known hx of COPD volume overload pulmonary HTN chronic anemia on supplemental oxygen at baseline s/p DUF yesterday for fluid removal PRBC transfusion per protocol follow respiratory status (3) Anemia: Code(s): D64.9 - Anemia, unspecified Status: Chronic Assessment and Plan: chronic issue/problem partly related to ESRD but acute blood loss always a concern Epogen with HD PRBC transfusion per protocol GI recommendations noted on previous admissions -- no further endoscopy procedures planned follow trend H/H (4) Hypertension: Code(s): I10 - Essential (primary) hypertension Status: Chronic Assessment and Plan: reasonable control continue home medications follow trend of hemodynamics (5) Diabetes: Code(s): E11.9 - Type 2 diabetes mellitus without complications Status: Chronic Assessment and Plan: follow accuchecks glycemic control per hospitalists Will continue to follow. Subjective Date/time seen: 04/12/23 10:30 Interval history: Follow-up for end stage renal disease on hemodialysis. Unable to get full dialysis treatment yesterday due to mechanical issues with dialysis machine yesterday; tolerating dialysis treatment at the time of my visit (seen on HD at 10:20AM) although fluid removal is challenging as her blood pressure is not tolerating this intervention despite IV albumin use; more hypoxic overnight with subsequent increase in supplemental oxygen currently; she also states she feels more short of breath. Exam Narrative: General: elderly and chronically ill-appearing female in NAD Heart: normal S1 and S2; no rub Lungs: coarse breath sounds; decreased at basese Abdomen: soft, nondistended, positive bowel sounds Extremities: no cyanosis or clubbing; trace edema Skin: warm and dry Objective Data Vital Signs Vital Signs: Vital Signs Temp Pulse Resp BP Pulse Ox O2 Del Method O2 Flow Rate 04/12/23 10:30 59 L 110/59 L 04/12/23 10:15 60 104/38 L 04/12/23 10:00 61 94/38 L 04/12/23 09:45 61 104/42 L 04/12/23 09:38 63 98/38 L 04/12/23 09:30 63 86/68 L 04/12/23 09:15 60 100/41 L 04/12/23 08:17 5 04/12/23 08:02 98.1 F 63 20 147/53 H 04/12/23 09:00 75 120/45 L 04/12/23 08:45 63 122/46 L 04/12/23 08:30 60 119/44 L 04/12/23 08:17 62 138/52 L 04/12/23 04:00 64 04/12/23 06:00 98.1 F 66 18 136/35 L 100 04/12/23 00:00 66 04/11/23 20:00 65 04/11/23 21:15 89 L Nasal Cannula 5 04/11/23 21:25 64 20 04/11/23 21:27 86 L Nasal Cannula 3 04/11/23 19:52 98.3 F 65 18 124/28 L 90 04/11/23 16:00 68 04/11/23 14:00 98.6 F 65 20 132/40 L 91 Intake/Output Intake/Output: Intake & Output 04/09/23 04/10/23 04/11/23 04/12/23 23:59 23:59 23:59 23:59 Intake Total 677 168 6332 Output Total 2500 496 Balance 950 -1670 614 Meds/Results Medications: Active Medications Generic Name Dose Route Start Last Admin Trade Name Freq PRN Reason Stop Dose Admin Acetaminophen 650 mg 04/09/23 17:58 Acetaminophen 325 Mg Tablet PO Q4H PRN Mild Pain (1-3) or Fever Hydrocodone Bitart/Acetaminophen 1 tab
[2023-04-12] MEDS: EPOETIN ALFA 20,000 UNITS/ML VIAL 20000 UNITS IV PUSH (10:39)
--- NOTE | 2023-04-12 12:00 | PC.NURSE ---
Returned from Dialysis via bed.
[2023-04-12] MEDS: busPIRone HCL 10 MG TABLET PO ×2 (12:03→17:08)
[2023-04-12] MEDS: lisinopriL 20 MG TABLET PO (12:04)
[2023-04-12] MEDS: SPIRONOLACTONE 12.5 MG TABLET PO (12:04)
[2023-04-12] MEDS: SEVELAMER CARBONATE 800 MG TABLET PO ×2 (12:04→17:08)
[2023-04-12] MEDS: CYANOCOBALAMIN 1,000 MCG TABLET 1000 MCG PO (12:04)
[2023-04-12] MEDS: ESCITALOPRAM OXALATE 10 MG TABLET PO (12:04)
[2023-04-12] MEDS: amLODIPine BESYLATE 5 MG TABLET 10 MG PO (12:04)
[2023-04-12] MEDS: DOCUSATE SODIUM 100 MG CAPSULE PO ×2 (12:04→21:16)
[2023-04-12] MEDS: PANTOPRAZOLE 40 MG TABLET PO (12:04)
[2023-04-12] MEDS: FERROUS SULFATE 325 MG TABLET DR PO ×2 (12:09→17:08)
--- NOTE | 2023-04-12 14:05 | PM.IMPN ---
Progress Note: A&P Assessment and Plan (1) Shortness of breath: Code(s): R06.02 - Shortness of breath Status: Acute Assessment and Plan: CXR showing effusions and lower lung zone airspace disease. SOB likely multifactorial secondary to severe anemia, COPD, and fluid overload. has chornic respiratory failure on 2-3L. Was here last month with similar findings with CTA negative for PE and doppler negative for DVT. More hypoxic last night. Check CXR. Check dopplers. Check ABG. WeanO2 as toelrated Follow. HD to control fluid status. (2) Profound anemia: Code(s): D64.9 - Anemia, unspecified Status: Acute Assessment and Plan: Hgb 6.6 on admission. She received 2U PRBC. Hgb improved to 7-8 range and stable. Patient with chronic anemia.? Baseline hemoglobin probably in the 7-9 range.? Patient noted be iron deficient in November but not in March.? B12 level was 269 and MMA was 2136 in March (MMA elevated due to ESRD) She was guaiac positive in January. EGD in October showed multiple gastric and duodenal polyps.? Pathology was benign. She is on iron on admission.? Rpo given Extensive history of anemia workup with GI and Hematology. Contnue B12. Follow HH (3) End-stage renal disease on hemodialysis: Code(s): N18.6 - End stage renal disease; Z99.2 - Dependence on renal dialysis Status: Acute Assessment and Plan: Nephrology consult for dialysis. Not able to get much fluid off today due to soft BP. Apprecaite nephrology input. (4) Chronic respiratory failure with hypoxia: Code(s): J96.11 - Chronic respiratory failure with hypoxia Status: Chronic Assessment and Plan: Patient with chronic respiratory failure on 3 L O2 nasal cannula.? As above Continue to follow. (5) Chronic obstructive pulmonary disease: Code(s): J44.9 - Chronic obstructive pulmonary disease, unspecified Status: Acute Assessment and Plan: Stable Does not appear to be in acute exacerbation (6) Hypertension: Code(s): I10 - Essential (primary) hypertension Status: Chronic Assessment and Plan: Patient's blood pressure was reviewed on 04/12 Blood pressure remains well controlled; soft at time during dialysis Will continue to monitor (7) Hypothyroidism: Code(s): E03.9 - Hypothyroidism, unspecified Status: Acute Assessment and Plan: TSH 20. Levothyroxine advanced Plan DVT prophylaxis with SCDs GI prophylaxis with PPI Code status DNR Subjective Date/time seen: 04/12/23 14:05 Interval history: 88-year-old female with ESRD on hemodialysis, chronic respiratory failure on 2 to 3 L nasal cannula, COPD, pulmonary hypertension, diastolic dysfunction, hypertension, chronic anemia, diet-controlled diabetes, dementia presented to the emergency department via EMS for evaluation of hypoxia and low hgb and is being transfused. Patieint required increasing O2 overnight up to 5L HFNC. No CP. She feels SOB. No calf pain. No pleuritic CP. Exam Narrative: AF 97.3 132/45 63 18 95% 5L Gen - NARD currently undergoing HD Chest - inspiratory crackles apprecaited in the flanks. CV - RRR S1/S2 Abd - Soft, NT/ND, Positive BS Ext - No pedal edema. LUE fistula is accessed. +Homans sign Psych - Nml mood and affect Skin - Warm and dry Objective Data Vital Signs Vital Signs: Vital Signs - 24 hr 04/11/23 16:00 04/11/23 19:52 04/11/23 21:27 Temperature 98.3 F Pulse Rate 68 65 Respiratory Rate 18 Blood Pressure 124/28 L Pulse Oximetry 90 86 L Oxygen Delivery Nasal Cannula Oxygen Flow Rate 3 04/11/23 21:25 04/11/23 21:15 04/11/23 20:00 Temperature Pulse Rate 64 65 Respiratory Rate 20 Blood Pressure Pulse Oximetry 89 L Oxygen Delivery Nasal Cannula Oxygen Flow Rate 5 04/12/23 00:00 04/12/23 06:00 04/12/23 04:00 Temperature 98.1 F Pulse Rate 66 66 64 Respiratory
--- NOTE | 2023-04-12 15:05 | PC.NURSE ---
On 04/12/23, the student, [Jacy Salvador], provided care and completed [facility] documentation on this patient. I have reviewed the student's documentation and agree with the findings.
[2023-04-12 15:13] LABS: Alveolar/Arterial O2 Gradient 92.2 mmHg; Base Excess ABG 3.2 mEq/l (+/-2.0); Device NASAL CANNULA; Fractional Inspired Oxygen 40 %; HCO3 ABG 29.5 mEq/l (22.0-26.0); Modified Allen's Test Pass; Oxygen Content ABG 11.5 %vol (16.0-22.0); Oxygen Saturation ABG 98.4 % (95.0-100.0); PCO2 ABG 55.6 mmHg (35.0-45.0); PO2 ABG 129.1 mmHg (80.0-100.0); PO2 FiO2 Ratio Arterial Blood 3.23 %; Site Drawn RIGHT RADIAL; Total Hemoglobin 8.2 g/dL (12.0-18.0); pH ABG 7.343 (7.350-7.450)
[2023-04-12] MEDS: ALPRAZolam (*CRX) 0.5 MG TABLET PO (21:16)
[2023-04-12] MEDS: ATORVASTATIN 20 MG TABLET PO (21:16)
[2023-04-12] MEDS: LATANOPROST 0.005% OP SOLN 2.5 ML BTL 1 DROP EACH EYE (21:18)
[2023-04-12 21:34] LABS: IFOB Positive Control Positive; Immunochemical Fecal Occult Bl Negative (N)
[2023-04-13] VITALS (24 sets, daily range): BP systolic 99–148; BP diastolic 33–63; PULSE 55–68; RESP 14–20; TEMP 36.3–37; O2SAT 94–98
[2023-04-13] MEDS: LEVOTHYROXINE SODIUM 125 MCG TABLET PO (05:20)
[2023-04-13 05:49] LABS: Basophils Absolute Auto 0.1 K/mm3 (0.0-0.1); Basophils Percent Auto 0.8 % (0.2-1.2); Eosinophils Absolute Auto 0.7 K/mm3 (0-0.3); Eosinophils Percent Auto 9.4 % (0-4.4); Hematocrit 26.5 % (37.0-47.0); Hemoglobin 7.6 g/dL (12.0-15.0); Immature Granulocyte Percent A 1.3 % (0-0.5); Lymphocytes Absolute Auto 0.72 K/mm3 (0.9-3.2); Lymphocytes Percent Auto 9.1 % (18.3-44.2); Mean Corpuscular HGB Conc 28.7 g/dl (32-36); Mean Corpuscular Hemoglobin 28.5 pg (26-34); Mean Corpuscular Volume 99.3 fl (80-100); Monocytes Percent Auto 12.6 % (2.6-8.5); Neutrophils Absolute Auto 5.3 K/mm3 (1.3-6.7); Neutrophils Percent Auto 66.8 % (45.5-73.1); Nucleated Red Blood Cells Perc 0.3 % (0.0-0.2); Platelet Count Result 265 k/mm3 (150-375); Red Blood Count 2.67 M/mm3 (4.2-5.4); Red Cell Distribution Width 16.3 % (11.5-14.5); White Blood Count 7.9 K/mm3 (4.5-10.0)
[2023-04-13 06:01] LABS: Alanine Aminotransferase 7 U/L (6-35); Albumin Level 3.8 g/dL (3.5-5.1); Alkaline Phosphatase 63 U/L (38-126); Anion Gap 9 mmol/L (8-16); Aspartate Amino Transferase 16 U/L (14-36); Bilirubin,Total 0.3 mg/dL (0.2-1.3); Blood Urea Nitrogen 34 mg/dL (7-17); Carbon Dioxide 28 mmol/L (22-30); Chloride 101 mmol/L (98-107); Estimated CRCL calculation 11 ml/min; Estimated Glomerular Filt Rate 13; Glucose 82 mg/dL (65-110); Potassium 4.9 mmol/L (3.4-5.0); Sodium 138 mmol/L (137-145)
[2023-04-13 06:16] LABS: Anisocytosis 1+ (NORMAL); Large Platelets Present; Platelet Estimate Adequate (Adequate)
[2023-04-13 06:17] LABS: Ovalocytes 1+ (NORMAL); Schistocytes None Seen (NORMAL)
[2023-04-13 06:18] LABS: Hypochromasia 1+ (NORMAL)
[2023-04-13] MEDS: amLODIPine BESYLATE 5 MG TABLET 10 MG PO (09:00)
[2023-04-13] MEDS: SEVELAMER CARBONATE 800 MG TABLET PO ×2 (09:00→16:08)
[2023-04-13] MEDS: ESCITALOPRAM OXALATE 10 MG TABLET PO (09:01)
[2023-04-13] MEDS: lisinopriL 20 MG TABLET PO (09:01)
[2023-04-13] MEDS: SPIRONOLACTONE 12.5 MG TABLET PO (09:01)
[2023-04-13] MEDS: PANTOPRAZOLE 40 MG TABLET PO (09:01)
[2023-04-13] MEDS: busPIRone HCL 10 MG TABLET PO ×2 (09:01→16:08)
[2023-04-13] MEDS: DOCUSATE SODIUM 100 MG CAPSULE PO ×2 (09:01→20:40)
[2023-04-13] MEDS: CYANOCOBALAMIN 1,000 MCG TABLET 1000 MCG PO (09:01)
--- NOTE | 2023-04-13 12:37 | PM.PNNEP ---
Progress Note: A&P Assessment and Plan (1) End stage renal disease: Code(s): N18.6 - End stage renal disease Status: Chronic Assessment and Plan: HD today continue M/W/F dialysis schedule while hospitalized follow electrolytes, volume status, and clearance (2) Acute on chronic respiratory failure with hypoxia: Code(s): J96.21 - Acute and chronic respiratory failure with hypoxia Status: Acute Assessment and Plan: appears bck to baseline multifactorial etiology: known hx of COPD volume overload pulmonary HTN chronic anemia on supplemental oxygen at baseline PRBC transfusion per protocol follow respiratory status (3) Anemia: Code(s): D64.9 - Anemia, unspecified Status: Chronic Assessment and Plan: chronic issue/problem partly related to ESRD but acute blood loss always a concern Epogen with HD PRBC transfusion per protocol GI recommendations noted on previous admissions -- no further endoscopy procedures planned follow trend H/H (4) Hypertension: Code(s): I10 - Essential (primary) hypertension Status: Chronic Assessment and Plan: reasonable control continue home medications follow trend of hemodynamics (5) Diabetes: Code(s): E11.9 - Type 2 diabetes mellitus without complications Status: Chronic Assessment and Plan: follow accuchecks glycemic control per hospitalists Will continue to follow. Subjective Date/time seen: 04/13/23 12:37 Interval history: Follow-up for end stage renal disease on hemodialysis. Tolerating hemodialysis treatment at the time of my visit (seen on HD at 12:25PM); breathing/respiratory status seems stable currently; no issues/events overnight or earlier this morning; no apparent distress noted. Exam Narrative: General: elderly and chronically ill-appearing female in NAD Heart: normal S1 and S2; no rub Lungs: coarse breath sounds; decreased at bases Abdomen: soft, nondistended, positive bowel sounds Extremities: no cyanosis or clubbing; trace edema Skin: warm and intact Objective Data Vital Signs Vital Signs: Vital Signs Temp Pulse Resp BP Pulse Ox O2 Del Method O2 Flow Rate 04/13/23 12:30 59 L 120/44 L 04/13/23 12:03 2 04/13/23 11:55 98.1 F 61 20 136/51 L 04/13/23 12:15 61 129/49 L 04/13/23 12:06 60 137/52 L 04/13/23 09:05 94 Nasal Cannula 2 04/13/23 04:00 65 04/12/23 22:35 96 High Flow Nasal Cannula 2 04/13/23 04:27 97.7 F 67 20 140/38 L 98 04/13/23 02:40 94 High Flow Nasal Cannula 2 04/13/23 00:00 68 04/12/23 20:00 62 04/12/23 23:19 96 Nasal Cannula 2 04/12/23 20:00 100 Nasal Cannula 3 04/12/23 19:52 98.3 F 63 18 122/40 L 100 04/12/23 16:00 63 Intake/Output Intake/Output: Intake & Output 04/10/23 04/11/23 04/12/23 04/13/23 23:59 23:59 23:59 23:59 Intake Total 830 1110 1948 360 Output Total 2500 496 1000 0 Balance -1670 614 948 360 Meds/Results Medications: Active Medications Generic Name Dose Route Start Last Admin Trade Name Freq PRN Reason Stop Dose Admin Acetaminophen 650 mg 04/09/23 17:58 Acetaminophen 325 Mg Tablet PO Q4H PRN Mild Pain (1-3) or Fever Hydrocodone Bitart/Acetaminophen 1 tab 04/09/23 17:58 Hydrocodone/Acetaminophen (*Crx) 5-325 Mg Tablet PO Q4H PRN Pain Rated 4-6 Albuterol 2.5 mg 04/10/23 00:42 04/11/23 21:23 Albuterol Sulfate Neb 2.5 Mg/3 Ml Inh INHALATION 2.5 mg Q6HRT PRN Administration shortness of breath Alprazolam 0.5 mg 04/10/23 00:42 04/12/23 21:16 Alprazolam (*Crx) 0.5 Mg Tablet PO 0.5 mg BID PRN Administration Anxiety Amlodipine Besylate 10 mg 04/10/23 09:00 04/13/23 09:00 Amlodipine Besylate 5 Mg Tablet PO 10 mg QAM LAUREN Administration Atorvastatin Calcium 20 mg 1
--- NOTE | 2023-04-13 12:37 | P.PNNP_ITS ---
Progress Note: A&P Assessment and Plan (1) End stage renal disease: Code(s): N18.6 - End stage renal disease Status: Chronic Assessment and Plan: * HD today * continue M/W/F dialysis schedule while hospitalized * follow electrolytes, volume status, and clearance (2) Acute on chronic respiratory failure with hypoxia: Code(s): J96.21 - Acute and chronic respiratory failure with hypoxia Status: Acute Assessment and Plan: * appears bck to baseline * multifactorial etiology: * known hx of COPD * volume overload * pulmonary HTN * chronic anemia * on supplemental oxygen at baseline * PRBC transfusion per protocol * follow respiratory status (3) Anemia: Code(s): D64.9 - Anemia, unspecified Status: Chronic Assessment and Plan: * chronic issue/problem * partly related to ESRD but acute blood loss always a concern * Epogen with HD * PRBC transfusion per protocol * GI recommendations noted on previous admissions -- no further endoscopy procedures planned * follow trend H/H (4) Hypertension: Code(s): I10 - Essential (primary) hypertension Status: Chronic Assessment and Plan: * reasonable control * continue home medications * follow trend of hemodynamics (5) Diabetes: Code(s): E11.9 - Type 2 diabetes mellitus without complications Status: Chronic Assessment and Plan: * follow accuchecks * glycemic control per hospitalists Will continue to follow. Subjective Date/time seen: 04/13/23 12:37 Interval history: Follow-up for end stage renal disease on hemodialysis. Tolerating hemodialysis treatment at the time of my visit (seen on HD at 12:25PM); breathing/respiratory status seems stable currently; no issues/events overnight or earlier this morning; no apparent distress noted. Exam Narrative: General: elderly and chronically ill-appearing female in NAD Heart: normal S1 and S2; no rub Lungs: coarse breath sounds; decreased at bases Abdomen: soft, nondistended, positive bowel sounds Extremities: no cyanosis or clubbing; trace edema Skin: warm and intact Objective Data Vital Signs Vital Signs: Vital Signs Temp Pulse Resp BP Pulse Ox O2 Del Method O2 Flow Rate 04/13/23 12:30 59 L 120/44 L 04/13/23 12:03 2 04/13/23 11:55 98.1 F 61 20 136/51 L 04/13/23 12:15 61 129/49 L 04/13/23 12:06 60 137/52 L 04/13/23 09:05 94 Nasal Cannula 2 04/13/23 04:00 65 04/12/23 22:35 96 High Flow Nasal Cannula 2 04/13/23 04:27 97.7 F 67 20 140/38 L 98 04/13/23 02:40 94 High Flow Nasal Cannula 2 04/13/23 00:00 68 04/12/23 20:00 62 04/12/23 23:19 96 Nasal Cannula 2 04/12/23 20:00 100 Nasal Cannula 3 04/12/23 19:52 98.3 F 63 18 122/40 L 100 04/12/23 16:00 63 Intake/Output Intake/Output: Intake & Output 04/10/23 04/11/23 04/12/23 04/13/23 23:59 23:59 23:59 23:59 Intake Total 830 1110 1948 360 Output Total 2500 496 1000 0 Balance -1670 614 948 360 Meds/Results Medications: Active Medi
[2023-04-13] MEDS: EPOETIN ALFA 20,000 UNITS/ML VIAL 20000 UNITS IV PUSH (13:40)
--- NOTE | 2023-04-13 14:12 | PC.NURSE ---
On 04/13/23, the student, [Jacy Salvador], provided care and completed [facility] documentation on this patient. I have reviewed the student's documentation and agree with the findings.
--- NOTE | 2023-04-13 15:20 | PM.DS ---
DS: Admitting Diagnosis Discharge Date 04/13/23 Admitting Diagnosis Hypoxia and abnormal labs. DS: Discharge Diagnosis Discharge Diagnosis (1) Shortness of breath: Code(s): R06.02 - Shortness of breath Status: Acute (2) Profound anemia: Code(s): D64.9 - Anemia, unspecified Status: Acute (3) End-stage renal disease on hemodialysis: Code(s): N18.6 - End stage renal disease; Z99.2 - Dependence on renal dialysis Status: Acute (4) Chronic respiratory failure with hypoxia: Code(s): J96.11 - Chronic respiratory failure with hypoxia Status: Chronic (5) Chronic obstructive pulmonary disease: Code(s): J44.9 - Chronic obstructive pulmonary disease, unspecified Status: Acute (6) Hypertension: Code(s): I10 - Essential (primary) hypertension Status: Chronic (7) Hypothyroidism: Code(s): E03.9 - Hypothyroidism, unspecified Status: Acute DS: Summary Hospital Course Reason for hospitalization: 88-year-old female with ESRD on hemodialysis, chronic respiratory failure on 2 to 3 L nasal cannula, COPD, pulmonary hypertension, diastolic dysfunction, hypertension, chronic anemia, diet-controlled diabetes, dementia presented to the emergency department via EMS for evaluation of hypoxia and low hgb and is being transfused. Please see H&P for details. Hospital Course: Patient presents with SOB. CXR showing effusions and lower lung zone airspace disease. She has chronic respiratory failure on 2-3L. Was here last month with similar findings with CTA negative for PE and doppler negative for DVT. Repeat dopplers here were negative. Hgb 6.6 on admission. She received 2U PRBC. Hgb improved to 7-8 range and stable. Patient with chronic anemia with baseline hemoglobin probably in the 7-9 range.Patient noted be iron deficient in November but not in March.?B12 level was 269 and MMA was 2136 elevated due to ESRD. She was guaiac positive in January. EGD in October showed multiple gastric and duodenal polyps.? Pathology was benign. She is on iron on admission.? Epo given here. She has a history of anemia with extensive workup with GI and Hematology. We continued B12 and iron supplements. Nephrology consulted for dialysis. She had HD on the day of discharge to put her back on schedule. Appreciate nephrology input. TSH 20. Levothyroxine advanced. SOB likely multifactorial secondary to severe anemia, COPD, and fluid overload. She did well overall and able to be discharged on 04/13/23. Status at Discharge Cognitive/behavioral status at discharge: stable Time Spent with Patient Time attestation: Total time spent providing and/or coordinating discharge services: 35 minutes Time spent: Greater than 30 minutes Exam Narrative: AF 97.9 135/48 58 20 94% 2L Gen - NARD Chest - inspiratory crackles bibasilar CV - RRR S1/S2 Abd - Soft, NT/ND, Positive BS Ext - No pedal edema. LUE fistula thrill and bruit Psych - Nml mood and affect Skin - Warm and dry DS: Data Data Completed and Pending Labs on day of discharge: Labs from last 24 hours 04/13/23 04/13/23 04/12/23 05:25 05:24 21:13 WBC 7.9 RBC 2.67 L Hgb 7.6 L Hct 26.5 L MCV 99.3 MCH 28.5 MCHC 28.7 L RDW 16.3 H Plt Count 265 MPV 11.0 H Immature Gran % (Auto) 1.3 H Neut % (Auto) 66.8 Lymph % (Auto) 9.1 L [place] % (Auto) 12.6 H Eos % (Auto) 9.4 H Baso % (Auto) 0.8 Lymph # (Auto) 0.72 L [place] # (Auto) 1.0 H Eos # (Auto) 0.7 H Baso # (Auto) 0.1 Abs Immat Gran (auto) 0.10 H Absolute Neuts (auto) 5.3 Absolute Nucleated RBC 0.0 Nucleated RBC % 0.3 H Platelet Estimate Adequate Large Platelets Present Hypochromasia 1+ Anisocytosis 1+ Ovalocytes 1+ Schistocytes None seen Sodium 138 Potassium 4.9 Chloride 101 Carbon Dioxide 28 Anion Gap 9 BUN 34 H D Creatinine 3.40 H Estim Creat Clear Calc 11
[2023-04-13] MEDS: FERROUS SULFATE 325 MG TABLET DR PO (16:08)
[2023-04-13 16:49] LABS: SARS-CoV-2 RNA PCR Negative (Negative)
[2023-04-13] MEDS: ALPRAZolam (*CRX) 0.5 MG TABLET PO (20:40)
[2023-04-13] MEDS: ATORVASTATIN 20 MG TABLET PO (20:40)
[2023-04-13] MEDS: LATANOPROST 0.005% OP SOLN 2.5 ML BTL 1 DROP EACH EYE (20:43)
== END 2023-04-13 21:35 | DRG 811 ==
LOC: ANHED 17:41 → ANH2MED 21:15
PROVIDERS: Internal Medicine Nephrology; Physician Assistant; Student in an Organized Health Care Education/Training Program; Admitting Provider Internal Medicine; Emergency Provider Emergency Medicine; PCP Internal Medicine; Visit Provider Internal Medicine
DX: D64.9 Anemia, unspecified (principal); N18.6 End stage renal disease; I12.0 Hypertensive chronic kidney disease with stage 5 chronic kidney disease or end stage renal disease; J96.11 Chronic respiratory failure with hypoxia; I27.20 Pulmonary hypertension, unspecified; J44.9 Chronic obstructive pulmonary disease, unspecified; D63.1 Anemia in chronic kidney disease; E11.22 Type 2 diabetes mellitus with diabetic chronic kidney disease; E78.5 Hyperlipidemia, unspecified; E55.9 Vitamin D deficiency, unspecified; E03.9 Hypothyroidism, unspecified; K21.9 Gastro-esophageal reflux disease without esophagitis; M19.90 Unspecified osteoarthritis, unspecified site; N25.0 Renal osteodystrophy; H40.9 Unspecified glaucoma; F03.90 Unspecified dementia, unspecified severity, without behavioral disturbance, psychotic disturbance, mood disturbance, and anxiety; Z99.81 Dependence on supplemental oxygen; Z11.52 Encounter for screening for COVID-19; Z99.2 Dependence on renal dialysis
CPT/HCPCS: 36415; 36430; 36600; 71045; 71046; 80048; 80053; 82274; 82805; 82948; 84443; 85025; 85027; 85610; 85730; 86706; 86850; 86900; 86901; 86923; 87040; 87340; 87635; 93970; 94640; 96361; 96372; 96374; 96375; 99285; A9270; G0257; G0378; J1940; J2405; J3420; J7030; J7050; P9016; P9047; Q4081

== ENCOUNTER 2023-04-30 13:30 | Inpatient (IN) | payer MEDICARE, MEDICAID, SELFPAY ==
[2023-04-30] VITALS (20 sets, daily range): BP systolic 119–171; BP diastolic 33–48; PULSE 65–74; RESP 15–24; TEMP 36.4–36.8; O2SAT 98–100; BMI 27.6
--- NOTE | ~2023-04-30 | XR_ITS ---
Portable chest x-ray Comparison: 04/12/2023 Clinical History: Shortness of breath Findings: Small bilateral pleural effusions are present. There is mild central congestive change. C ardiomediastinal silhouette is stable. Bones and soft tissues are unremarkable. Impression: Small bilateral pleural effusions with mild central congestive change. Stable cardiomegaly. Reviewed, dictated and finalized at location . [facility] Impression: Small bilateral pleural effusions with mild central congestive change. Stable cardiomegaly.
--- NOTE | 2023-04-30 13:34 | ECG_ITS ---
Measurements Intervals [place] Rate: 74 P: 240 RI: 92 QRS: -16 QRSD: 130 T: 85 QT: 437 QTc: 485 Interpretive Statements SINUS RHYTHM WITH SHORT RI INTERVAL ATRIAL PREMATURE COMPLEXES INTRAVENTRICULAR CONDUCTION DELAY LEFT VENTRICULAR HYPERTROPHY AND ST-T CHANGE BASELINE ARTIFACT- II, III, AVF, V1, V6 BORDERLINE ECG COMPARED TO ECG 03/28/2023 14:01:19 NO SIGNIFICANT CHANGES Electronically Signed On 04-30-2023 13:41:28 [employer] by Kendrick Frances D.O.
[2023-04-30 14:10] LABS: Basophils Percent Auto 0.5 % (0.2-1.2); Eosinophils Absolute Auto 0.5 K/mm3 (0-0.3); Hematocrit 22.2 % (37.0-47.0); Immature Granulocyte Absolute 0.06 K/mm3 (0.00-0.031); Immature Granulocyte Percent A 0.8 % (0-0.5); Lymphocytes Absolute Auto 0.38 K/mm3 (0.9-3.2); Lymphocytes Percent Auto 5.1 % (18.3-44.2); Mean Corpuscular HGB Conc 27.5 g/dl (32-36); Mean Corpuscular Hemoglobin 27.6 pg (26-34); Mean Corpuscular Volume 100.5 fl (80-100); Mean Platelet Volume 10.5 fl (7.4-10.4); Monocytes Absolute Auto 0.7 K/mm3 (0.1-0.6); Monocytes Percent Auto 8.9 % (2.6-8.5); Neutrophils Absolute Auto 5.7 K/mm3 (1.3-6.7); Neutrophils Percent Auto 77.7 % (45.5-73.1); Platelet Count Result 300 k/mm3 (150-375); Red Blood Count 2.21 M/mm3 (4.2-5.4); Red Cell Distribution Width 16.3 % (11.5-14.5); White Blood Count 7.4 K/mm3 (4.5-10.0)
[2023-04-30 14:21] LABS: Alanine Aminotransferase 8 U/L (6-35); Albumin Level 3.5 g/dL (3.5-5.1); Alkaline Phosphatase 65 U/L (38-126); Anion Gap 6 mmol/L (8-16); Aspartate Amino Transferase 20 U/L (14-36); Bilirubin,Total 0.3 mg/dL (0.2-1.3); Blood Urea Nitrogen 32 mg/dL (7-17); Calcium 7.8 mg/dL (8.4-10.2); Carbon Dioxide 37 mmol/L (22-30); Chloride 93 mmol/L (98-107); Estimated CRCL calculation 9 ml/min; Estimated Glomerular Filt Rate 11; Glucose 130 mg/dL (65-110); Potassium 3.9 mmol/L (3.4-5.0); Sodium 136 mmol/L (137-145)
[2023-04-30 14:23] LABS: Hemoglobin 6.1 g/dL (12.0-15.0)
[2023-04-30 14:24] LABS: Hypochromasia 1+ (NORMAL); Ovalocytes 1+ (NORMAL); Platelet Estimate Adequate (Adequate); Schistocytes None Seen (NORMAL)
[2023-04-30] MEDS: PANTOPRAZOLE SODIUM IV 40 MG VIAL 80 MG IV PUSH (15:54)
[2023-04-30 15:57] LABS: Prothrombin Time 13.5 Seconds (11.1-14.7)
[2023-04-30 15:58] LABS: Partial Thromboplastin Time 32.6 SECONDS (22.3-36.8)
--- NOTE | 2023-04-30 16:43 | ED.GENADULT ---
HPI - General Adult General Chief complaint: Shortness of Breath/Dyspnea Stated complaint: sob/low o2 Time Seen by Provider: 04/30/23 15:04 History of Present Illness HPI narrative: 88-year-old female presents to the emergency department for evaluation of shortness of breath. patient was at dialysis and dialysis had to be stopped due to her symptoms. Upon arrival to the emergency department patient was on 4 L and saturating at 98-99%. Patient denies any complaints. Related Data Home Medications Medication Instructions Recorded Confirmed atorvastatin 20 mg tablet 20 mg PO HS 06/22/21 04/30/23 ergocalciferol (vitamin D2) 1,250 50,000 unit PO WEEKLY 06/22/21 04/30/23 mcg (50,000 unit) capsule latanoprost 0.005 % eye drops 1 drp EACH EYE HS 06/22/21 04/30/23 spironolactone 25 mg tablet 12.5 mg PO DAILY 06/22/21 04/30/23 acetaminophen 650 mg tablet 650 mg PO Q6H PRN Pain (Scale 07/21/22 04/30/23 Score 1-3) buspirone 7.5 mg tablet 10 mg PO BID 07/21/22 04/30/23 sevelamer carbonate 0.8 gram oral 0.8 g PO TID 01/19/23 04/30/23 powder packet (Renvela) escitalopram oxalate 10 mg tablet 10 mg PO DAILY 04/10/23 04/30/23 levothyroxine 125 mcg tablet 175 mcg PO DAILY@0630 04/30/23 04/30/23 (Synthroid) meclizine 25 mg tablet 25 mg PO Q8H PRN dizziness 04/30/23 04/30/23 Allergies Allergy/AdvReac Type Severity Reaction Status Date / Time adhesive tape Allergy Unknown PLASTIC Verified 04/09/23 16:12 TAPE hydrochlorothiazide Allergy Unknown Verified 04/09/23 16:12 latex Allergy Rash Verified 04/09/23 16:12 Review of Systems Review of Systems: All systems reviewed & are unremarkable except as noted in HPI and below PMFSH Past Medical History Medical History (Updated 04/30/23 @ 16:46 by Ming Posadas MD) Anxiety Chronic anemia Chronic obstructive pulmonary disease Chronic respiratory failure with hypoxia On 2 to 3 liters nasal cannula. COVID-19 (06/2021) Diastolic dysfunction End-stage renal disease on hemodialysis Erythropoietin deficiency anemia Gastroesophageal reflux disease Glaucoma Hyperlipidemia Hypertension Hypothyroidism Osteoarthritis Pulmonary hypertension Renal osteodystrophy Type 2 diabetes mellitus Diet-controlled. Vitamin D deficiency Surgical History Surgical History Status post creation of arteriovenous fistula Left upper extremity. Family History Family History Other Diabetes mellitus Hypertension Social History Social History Social History: Surrogate decision maker: Amy Contreras, roman. Code status: Do not resuscitate. 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 Spiritual care concerns: No Exam Narrative: APPEARANCE: Well appearing, no pain, no distress, well-nourished. HEAD: normocephalic, atraumatic. EYES: PERRLA/EOMI, conjunctivae clear. NOSE: Normal no drainage EARS:TMS clear with good light reflex. THROAT: Pharynx clear, no exudate. NECK: Supple. No adenopathy, no masses. RESPIRATORY: Airway patent, respirations nonlabored. Clear to auscultation bilaterally, no rales, rhonchi, wheezing. CARDIOVASCULAR: Regular rate and rhythm without murmurs rubs or gallops. ABDOMINAL: Soft, nontender, nondistend
[2023-04-30] MEDS: SODIUM CHLORIDE 0.9% IV 250 ML 30 ML IV CONT (17:06)
[2023-04-30] MEDS: TUBING, BLOOD PLUM PUMP TUBING 1 EACH XX (17:06)
--- NOTE | 2023-04-30 18:07 | ADMGEN ---
This patient, Sofía Contreras, was admitted to 2 Medical Room 243-01. Patient/family oriented to hospital policies and general routines including ID bracelet, bed and alarms, visiting hours, pain management, procedures, bathroom and other care routines, personal items, smoking policy, room service/diet, and visiting hours. Information on how to activate the Rapid Response Team has been discussed. Patient/Family are encouraged to report perceived risks to care and to ask questions if they do not understand what they are told or what they should do.
[2023-04-30] MEDS: SODIUM CHLORIDE 0.9% IV 250 ML 30 ML (20:34)
--- NOTE | 2023-04-30 23:14 | PM.IMHP ---
H&P: HPI History of Present Illness Date/Time: 04/30/23 22:00 Chief Complaint: Shortness of breath. Narrative: This is an 88-year-old female with end-stage renal disease on hemodialysis, chronic respiratory failure on 2 to 3 L nasal cannula, chronic obstructive pulmonary disease, pulmonary hypertension, diastolic dysfunction, hypertension, chronic anemia, diet-controlled diabetes, dementia presented to the emergency department via EMS from dialysis for evaluation of shortness of breath. The patient provides the following history. She is known to myself and the hospitalist service from multiple admissions the last couple of months. She was most recently discharged on 04/13/2023 at which time she was admitted with hypoxia and anemia. Hemoglobin at that time was 6.6 and she received 2 units packed red blood cells. She is on iron and received EPO at times with dialysis. It is noted that she had a guaiac-positive stool in January an EGD in October which showed multiple gastric and duodenal polyps. In any event, during dialysis she began complaining of shortness of breath and was found to have an SpO2 of 78% on her usual 3 L and she was brought in for evaluation. Vital signs have been stable. Hemoglobin was once again low at 6.1 and her stool was Hemoccult positive and she is being admitted in this setting for blood transfusion and close monitoring and further workup. With further questioning she thinks her stool has been dark however she is on iron. She does have intermittent epigastric/low chest discomfort that she has a difficult time describing. She denies bloating, belching, and heartburn. She denies fever, chills, sweats, chest pain, shortness a breath, and cough. Review of Systems Review of Systems: Twelve systems were reviewed and are negative except for as per HPI. [facility] Past Medical History Medical History Anxiety Chronic anemia Chronic obstructive pulmonary disease Chronic respiratory failure with hypoxia On 2 to 3 liters nasal cannula. COVID-19 (06/2021) Diastolic dysfunction End-stage renal disease on hemodialysis Erythropoietin deficiency anemia Gastroesophageal reflux disease Glaucoma Hyperlipidemia Hypertension Hypothyroidism Osteoarthritis Pulmonary hypertension Renal osteodystrophy Type 2 diabetes mellitus Diet-controlled. Vitamin D deficiency Surgical History Surgical History Status post creation of arteriovenous fistula Left upper extremity. Family History Family History Other Diabetes mellitus Hypertension Social History Social History Social History: Surrogate decision maker: Amy Contreras, son. Code status: Do not resuscitate. 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 Spiritual care concerns: No Meds Home Medications and Allergies Home Medications Medication Instructions Recorded Confirmed Type atorvastatin 20 mg tablet 20 mg PO HS 06/22/21 04/30/23 History ergocalciferol (vitamin D2) 1,250 50,000 unit PO WEEKLY 06/22/21 04/30/23 History mcg (50,000 unit) capsule latanoprost 0.005 % eye drops 1 drp EACH EYE HS 06/22/21 04/30/23 History spironolactone 25 mg tablet 12.5 mg
[2023-05-01] VITALS (29 sets, daily range): BP systolic 124–167; BP diastolic 40–67; PULSE 58–72; RESP 18–20; TEMP 0–37.4; O2SAT 96–100; BMI 27.6
[2023-05-01] MEDS: ATORVASTATIN 20 MG TABLET PO ×2 (00:22→21:25)
[2023-05-01] MEDS: LATANOPROST 0.005% OP SOLN 2.5 ML BTL 1 DROP EACH EYE ×2 (00:22→21:25)
[2023-05-01] MEDS: LEVOTHYROXINE SODIUM 100 MCG TABLET PO (05:45)
[2023-05-01] MEDS: LEVOTHYROXINE SODIUM 75 MCG TABLET PO (05:45)
[2023-05-01 06:03] LABS: Mean Corpuscular HGB Conc 29.6 g/dl (32-36); Mean Corpuscular Hemoglobin 27.8 pg (26-34); Mean Corpuscular Volume 93.8 fl (80-100); Mean Platelet Volume 11.2 fl (7.4-10.4); Platelet Count Result 266 k/mm3 (150-375); Red Blood Count 2.88 M/mm3 (4.2-5.4); Red Cell Distribution Width 17.6 % (11.5-14.5); White Blood Count 6.3 K/mm3 (4.5-10.0)
[2023-05-01 06:29] LABS: Anion Gap 10 mmol/L (8-16); Blood Urea Nitrogen 38 mg/dL (7-17); Calcium 7.7 mg/dL (8.4-10.2); Carbon Dioxide 31 mmol/L (22-30); Chloride 95 mmol/L (98-107); Estimated CRCL calculation 8 ml/min; Estimated Glomerular Filt Rate 9; Glucose 70 mg/dL (65-110); Magnesium 2.4 mg/dL (1.6-2.3); Potassium 4.3 mmol/L (3.4-5.0); Sodium 136 mmol/L (137-145)
[2023-05-01 07:13] LABS: Hepatitis B Surface Antigen Negative (Negative)
[2023-05-01 07:30] LABS: Hepatitis B Surface Anti Res Negative
--- NOTE | 2023-05-01 10:10 | PM.CNNEP ---
Assessment and Plan Assessment and plan (1) End stage renal disease: Code(s): N18.6 - End stage renal disease Status: Chronic Assessment and Plan: HD tomorrow continue M/W/F dialysis schedule while hospitalized follow electrolytes, volume status, and clearance (2) Anemia: Code(s): D64.9 - Anemia, unspecified Status: Chronic Assessment and Plan: chronic issue/problem partly related to ESRD but acute blood loss a concern guaiac positive stools noted Epogen with HD PRBC transfusion per protocol GI consulted follow trend H/H (3) Chronic respiratory failure with hypoxia: Code(s): J96.11 - Chronic respiratory failure with hypoxia Status: Chronic Assessment and Plan: multifactorial etiology: known hx of COPD mild volume overload pulmonary HTN chronic anemia on supplemental oxygen at baseline plan DUF today for fluid removal PRBC transfusion per protocol follow respiratory status (4) Hypertension: Code(s): I10 - Essential (primary) hypertension Status: Chronic Assessment and Plan: reasonable control continue home medications follow trend of hemodynamics (5) Diabetes: Code(s): E11.9 - Type 2 diabetes mellitus without complications Status: Chronic Assessment and Plan: follow accuchecks glycemic control per hospitalists I will continue to follow the patient with you while she remains hospitalized and make further recommendations as needed. Thank you for allowing me to participate in the care of this patient. History of Present Illness Reason for Consult Consult date: 05/01/23 Reason for consult: end stage renal disease Chief Complaint Chief complaint: GI Bleed History of Present Illness Narrative: The patient is an 88-year-old female with a past medical history as outlined below who was transferred from her dialysis facility via EMS for further evaluation of shortness of breath. Apparently, during her dialysis treatment yesterday, she started having increasing complaints of shortness of breath and was found to be hypoxic at 78% on her usual 3 L of supplemental oxygen. As the symptoms continued to progress and the patient apparently felt symptomatic, her dialysis treatment was aborted and EMS was called and she was subsequently transported to the emergency room for further assessment. Workup and evaluation emergency room demonstrated the patient being hemodynamically stable and her oxygen saturations were doing better by the time of her arrival to the emergency room. Routine blood tests were done which showed labs consistent with her known history of end-stage renal disease but also showed a hemoglobin of 6.1. Her stool was heme occult positive as well. She was typed and cross for a packed red blood cell transfusion and was subsequently admitted to [facility] for further evaluation and therapy. Since her admission, she tolerated the packed red blood cell transfusion with improvement in her hemoglobin/hematocrit as noted by her a.m. labs. Renal consultation was requested due to her end-stage renal disease. The patient normally does dialysis on a Sunday, Sunday, and Sunday dialysis schedule under the care of Dr. Hayden Waite at [facility]. She received her scheduled dialysis treatment yesterday (04/30/23) at her outpatient dialysis unit but she only receive about 1/2 of treatment before being transported to the ER. The patient is somewhat familiar to me as I have taking care of her before on previous hospitalizations here [facility]. She has been hospitalized multiple times for numerous medical issues and problems including shortness of breath related to her COPD, volume overload, acute on chronic anemia as well as altered mental status and generalized weakness/ fatigue. Currently, at the time of my visit, she is receiving a session of dry ultrafiltr
--- NOTE | 2023-05-01 10:34 | PCSTNOTE ---
Modified Barium Swallow on hold this morning secondary to patient in dialysis. Will try for later today or tomorrow morning.
--- NOTE | 2023-05-01 10:40 | PCSTNOTE ---
Therapist spoke with [facility] Hospitalist, concerning patient's current status, and that patient has already had multiple Modified Barium Swallow studies in the past indicating dysphagia. At this time, the current MBS order will be discontinued, patient will be placed on Pureed Diet and Moderately Thick Liquids, and will be monitored for her response to modified diet.
[2023-05-01] MEDS: EPOETIN ALFA 20,000 UNITS/ML VIAL 20000 UNITS IV PUSH (11:47)
--- NOTE | 2023-05-01 14:18 | PM.IMPN ---
Progress Note: A&P Assessment and Plan (1) Profound anemia: Code(s): D64.9 - Anemia, unspecified Status: Chronic Assessment and Plan: hemoglobin is low at 6.1 in her stool was Hemoccult positive s/p 2 units PRBC, up to 8.0 today, will continue to monitor (2) Heme positive stool: Code(s): R19.5 - Other fecal abnormalities Status: Acute Assessment and Plan: hemoglobin is low at 6.1 in her stool was Hemoccult positive GI consulted, EGD scheduled for tomorrow (3) Chronic respiratory failure with hypoxia: Code(s): J96.11 - Chronic respiratory failure with hypoxia Status: Chronic Assessment and Plan: CXR showed pulmonary edema DUF per nephrology on her home baseline of oxygen, satting 98% (4) End-stage renal disease on hemodialysis: Code(s): N18.6 - End stage renal disease; Z99.2 - Dependence on renal dialysis Status: Chronic Assessment and Plan: Nephrology following continue M/W/F dialysis follow electrolytes, volume status, and clearance Plan continue home regimen for diabetes: AccuCheck, hypoglycemia protocol and home insulin continue home meds Subjective Date/time seen: 05/01/23 14:18 Interval history: Patient is an 88 YO female with PMH of end-stage renal disease on hemodialysis, chronic respiratory failure on 2 to 3 L nasal cannula, chronic obstructive pulmonary disease, pulmonary hypertension, diastolic dysfunction, hypertension, chronic anemia, diet-controlled diabetes, dementia admitted from the ER from dialysis for evaluation of shortness of breath. She is known to the hospitalist service from multiple admissions the last couple of months. She was most recently discharged on 04/13/2023 at which time she was admitted with hypoxia and anemia. Hemoglobin at that time was 6.6 and she received 2 units packed red blood cells. She is on iron and received EPO at times with dialysis. During dialysis she began complaining of shortness of breath and was found to have an SpO2 of 78% on her usual 3 L and she was brought in for evaluation. Vital signs have been stable. Hemoglobin was once again low at 6.1, she received 2 units of PRBC and is now Hem of 8.0 and her stool was Hemoccult positive. She denies bloating, belching, and heartburn. She denies fever, chills, sweats, chest pain, shortness a breath, and cough. GI consulted and will do an EGD tomorrow. Patient received the rest of her dialysis treatment today. Nephrology on board and will follow their recommendations while inpatient. Speech recommended pureed/moderate thick diet as the patient has had 3 previous barium swallows here and has remained unchanged. Speech will continue to monitor how she does with this diet, may need to consider tube feeding in the future. Review of Systems Review of Systems: Twelve systems were reviewed and are negative except for as per HPI. Exam Narrative: General:?Hard of hearing. Chronically ill-appearing female. Weight: 75.2 kg. BMI: 27.6. HEENT:???PERRL, EOMI. Sclera anicteric. Moist mucous membranes. Neck:??Supple. No obvious jugular venous distension. Respiratory:?Respirations are nonlabored. Lung sounds are a bit diminished at the bases but are otherwise clear to auscultation. Cardiovascular:??RRR with S1-S2. Soft systolic murmur at the upper sternal border. Gastrointestinal:??Abdomen is soft and nondistended with positive bowel sounds. She is a bit tender to deeper palpation epigastric region. Skin:??Warm and dry.? No rash or lesions on limited exam. Extremities:??No cyanosis or clubbing. Trace lower extremity edema.. Left upper extremity AV fistula with palpable thrill and bruit. Neurological:??Alert.? Cranial nerves 2-12 are grossly intact. No gross focal deficits to casual conversation. Psychiatric:??Cooperative with appropriate mood and affect. Objective Data Vital Signs Vital Signs: Vital Signs - 24 hr 04/30/23 14:20 04/30/23 14:30
--- NOTE | 2023-05-01 15:44 | WPDGICN ---
Assessment and Plan Assessment and plan (1) Melena: Code(s): K92.1 - Melena Status: Acute Assessment and Plan: this has been investigated in the past but ER physician noted dark stools will schedule EGD for tomorrow to assess if ulcer, esophagitis, etc she already had colonoscopy (2) Heme positive stool: Code(s): R19.5 - Other fecal abnormalities Status: Acute Assessment and Plan: will monitor (3) Acute on chronic anemia: Code(s): D64.9 - Anemia, unspecified Status: Acute Assessment and Plan: multifactorial, probably from esrd (4) Chronic kidney disease with end stage renal failure on dialysis: Code(s): N18.6 - End stage renal disease; Z99.2 - Dependence on renal dialysis Status: Acute Assessment and Plan: will get dialysis (5) HTN (hypertension): Qualifiers: Hypertension type: primary hypertension Qualified Code(s): I10 - Essential (primary) hypertension Code(s): I10 - Essential (primary) hypertension Status: Chronic (6) COPD (chronic obstructive pulmonary disease): Code(s): J44.9 - Chronic obstructive pulmonary disease, unspecified Status: Acute GI Consult Note Consult date/time: 05/01/23 15:44 Reason for consult: acute on chronic anemia, esrd HPI: Sofía Contreras is a 88 year old female with end-stage renal disease on hemodialysis, chronic respiratory failure on 2 to 3 L nasal cannula, chronic obstructive pulmonary disease, pulmonary hypertension, diastolic dysfunction, hypertension, chronic anemia, diet-controlled diabetes, dementia presented to the emergency department via EMS from dialysis for evaluation of shortness of breath, in fact dialysis was discontinued since she became more symptomatic. ?She has had numerous hospitalizations and numerous investigations because of anemia by Dr Appiah and Dr Guerra, had EGD performed by Dr. Guerra? earlier this year found gastric polyps and duodenal polyps but no sign of bleeding.? He had also noted that there was a resolution clip in the body of the stomach.? Had colonoscopy about 2 years ago. She has required blood transfusion in the past. Repeat hgb again 6.1 but this time ER physician also noted dark tarry stool with + FOBT. Patient is poor historian. Apparently also takes iron at home. Review of Systems Constitutional: Constitutional: Reports fatigue Eyes: Eyes: Denies blurry vision ENT: Reports Normal hearing present Cardiovascular: Cardiovascular: Denies chest pain Respiratory: Respiratory: Reports dyspnea on exertion Gastrointestinal: Gastrointestinal: Denies abdominal pain Genitourinary: Comments: on dialysis Musculoskeletal: Musculoskeletal: Denies neck pain Integumentary/Breasts: Skin/Breast: Denies rash Neurologic: Denies Abnormal speech present [facility] Past Medical History Medical History (Updated 05/01/23 @ 15:52 by Home Dominguez MD) Anxiety Chronic anemia Chronic obstructive pulmonary disease Chronic respiratory failure with hypoxia On 2 to 3 liters nasal cannula. COVID-19 (06/2021) Diastolic dysfunction End-stage renal disease on hemodialysis Erythropoietin deficiency anemia Gastroesophageal reflux disease Glaucoma Hyperlipidemia Hypertension Hypothyroidism Melena Osteoarthritis Pulmonary hypertension Renal osteodystrophy Type 2 diabetes mellitus Diet-controlled. Vitamin D deficiency Surgical History Surgical History Status post creation of arteriovenous fistula Left upper extremity. Family History Family History Other Diabetes mellitus Hypertension Social History Social History Social History: Surrogate decision maker: Amy Contreras, son. Code status: Do not resuscitate. Smoking packs per day:
[2023-05-01] MEDS: SEVELAMER CARBONATE 800 MG TABLET PO (17:07)
[2023-05-01] MEDS: FERROUS SULFATE 325 MG TABLET DR BY MOUTH (17:07)
[2023-05-01] MEDS: DOCUSATE SODIUM 100 MG CAPSULE PO (21:25)
[2023-05-01] MEDS: busPIRone HCL 5 MG TABLET 10 MG PO (21:26)
[2023-05-01] MEDS: ALBUTEROL SULFATE NEB 2.5 MG/3 ML INH INHALATION (22:27)
[2023-05-02] VITALS (31 sets, daily range): BP systolic 102–156; BP diastolic 31–71; PULSE 62–89; RESP 17–23; TEMP 36.2–37.4; O2SAT 95–100
[2023-05-02 05:19] LABS: Basophils Absolute Auto 0.1 K/mm3 (0.0-0.1); Basophils Percent Auto 0.9 % (0.2-1.2); Eosinophils Absolute Auto 0.5 K/mm3 (0-0.3); Eosinophils Percent Auto 6.9 % (0-4.4); Hematocrit 27.8 % (37.0-47.0); Hemoglobin 8.2 g/dL (12.0-15.0); Immature Granulocyte Absolute 0.09 K/mm3 (0.00-0.031); Immature Granulocyte Percent A 1.3 % (0-0.5); Lymphocytes Absolute Auto 0.71 K/mm3 (0.9-3.2); Lymphocytes Percent Auto 10.4 % (18.3-44.2); Mean Corpuscular HGB Conc 29.5 g/dl (32-36); Mean Corpuscular Hemoglobin 28.1 pg (26-34); Mean Corpuscular Volume 95.2 fl (80-100); Mean Platelet Volume 10.6 fl (7.4-10.4); Monocytes Absolute Auto 0.9 K/mm3 (0.1-0.6); Neutrophils Absolute Auto 4.6 K/mm3 (1.3-6.7); Neutrophils Percent Auto 67.5 % (45.5-73.1); Platelet Count Result 264 k/mm3 (150-375); Red Blood Count 2.92 M/mm3 (4.2-5.4); Red Cell Distribution Width 16.9 % (11.5-14.5); White Blood Count 6.8 K/mm3 (4.5-10.0)
[2023-05-02 05:36] LABS: Albumin Level 3.5 g/dL (3.5-5.1); Anion Gap 10 mmol/L (8-16); Blood Urea Nitrogen 53 mg/dL (7-17); Calcium 7.7 mg/dL (8.4-10.2); Carbon Dioxide 31 mmol/L (22-30); Chloride 95 mmol/L (98-107); Estimated CRCL calculation 6 ml/min; Estimated Glomerular Filt Rate 6; Glucose 78 mg/dL (65-110); Phosphorus 5.9 mg/dL (2.5-4.5); Potassium 5.1 mmol/L (3.4-5.0); Sodium 136 mmol/L (137-145)
[2023-05-02 06:49] LABS: Hypochromasia 2+ (NORMAL); Platelet Estimate Adequate (Adequate)
[2023-05-02 06:50] LABS: Poikilocytosis 1+ (NORMAL); Schistocytes None Seen (NORMAL)
--- NOTE | 2023-05-02 07:12 | PM.IMPN ---
Progress Note: A&P Assessment and Plan (1) Profound anemia: Code(s): D64.9 - Anemia, unspecified Status: Chronic Assessment and Plan: hemoglobin is low at 6.1 in her stool was Hemoccult positive s/p 2 units PRBC, up to 8.0 today, will continue to monitor 05/02: Hgb 8.2/ Hct 27.8. On ferrous sulfate 324 mg PO BID. Last Iron panel in 03/2023 was normal as well as vitamin B12. (2) Heme positive stool: Code(s): R19.5 - Other fecal abnormalities Status: Acute Assessment and Plan: hemoglobin is low at 6.1 in her stool was Hemoccult positive GI consulted, EGD scheduled for tomorrow 05/02: Going for EGD today. No acute bleeding found. (3) Chronic respiratory failure with hypoxia: Code(s): J96.11 - Chronic respiratory failure with hypoxia Status: Chronic Assessment and Plan: CXR showed pulmonary edema DUF per nephrology on her home baseline of oxygen, satting 98% 05/02: Will received HD today. DUF from Sunday removed 2 L. (4) End-stage renal disease on hemodialysis: Code(s): N18.6 - End stage renal disease; Z99.2 - Dependence on renal dialysis Status: Chronic Assessment and Plan: Nephrology following continue M/W/F dialysis follow electrolytes, volume status, and clearance On telemetry 05/02: K+ 5.1. Going for HD today. Plan Feeding:NPO for EGD Analgesia: Tylenol Thromboembolic prophylaxis: SCD Ulcer prophylaxis: PPI Glycemic control: na Bowel regimen: miralax prn Lines: PIV Antibiotics: na Disposition: [facility] Subjective Date/time seen: 05/02/23 07:12 Interval history: HPI obtained from chart, Patient is an 88 YO female with PMH of end-stage renal disease on hemodialysis, chronic respiratory failure on 2 to 3 L nasal cannula, chronic obstructive pulmonary disease, pulmonary hypertension, diastolic dysfunction, hypertension, chronic anemia, diet-controlled diabetes, dementia admitted from the ER from dialysis for evaluation of shortness of breath. She is known to the hospitalist service from multiple admissions the last couple of months. She was most recently discharged on 04/13/2023 at which time she was admitted with hypoxia and anemia. Hemoglobin at that time was 6.6 and she received 2 units packed red blood cells. She is on iron and received EPO at times with dialysis. During dialysis she began complaining of shortness of breath and was found to have an SpO2 of 78% on her usual 3 L and she was brought in for evaluation. 05/01: Vital signs have been stable. Hemoglobin was once again low at 6.1, she received 2 units of PRBC and is now Hem of 8.0 and her stool was Hemoccult positive. She denies bloating, belching, and heartburn. She denies fever, chills, sweats, chest pain, shortness a breath, and cough. GI consulted and will do an EGD tomorrow. Patient received the rest of her dialysis treatment today. Nephrology on board and will follow their recommendations while inpatient. Speech recommended pureed/moderate thick diet as the patient has had 3 previous barium swallows here and has remained unchanged. Speech will continue to monitor how she does with this diet, may need to consider tube feeding in the future. 05/02: Mrs Contreras is seen this evening, 1645 after having her EGD and HD sessions today. EGD findings include esophageal ring which was dilated, hiatal hernia, gastric polyps which were biopsied, and a single non-bleeding AVM which was ablated. She had 1400 ml of fluid removed at HD. She denies SOB or chest pain at this time. She is on her home oxygen dose of 3 L NC. Her hemoglobin today was 9.1. Plan to d/c tomorrow most likely if hemoglobin remains stable. Review of Systems Review of Systems: All systems reviewed & are unremarkable except as noted in HPI and below Exam Narrative: General: well appearing, well developed, thin, appears stated age. HEENT: normocephalic, atraumatic. Mucous membranes moist
[2023-05-02] MEDS: EPOETIN ALFA-EPBX 10,000 UNITS/ML VIAL 10000 UNITS IV PUSH (11:06)
--- NOTE | 2023-05-02 11:55 | PM.PNNEP ---
Progress Note: A&P Assessment and Plan (1) End stage renal disease: Code(s): N18.6 - End stage renal disease Status: Chronic Assessment and Plan: HD today continue M/W/F dialysis schedule while hospitalized follow electrolytes, volume status, and clearance (2) Anemia: Code(s): D64.9 - Anemia, unspecified Status: Chronic Assessment and Plan: chronic issue/problem partly related to ESRD but acute blood loss a concern guaiac positive stools noted Epogen with HD PRBC transfusion per protocol GI following - EGD today follow trend H/H (3) Chronic respiratory failure with hypoxia: Code(s): J96.11 - Chronic respiratory failure with hypoxia Status: Chronic Assessment and Plan: multifactorial etiology: known hx of COPD mild volume overload pulmonary HTN chronic anemia on supplemental oxygen at baseline PRBC transfusion per protocol follow respiratory status (4) Hypertension: Code(s): I10 - Essential (primary) hypertension Status: Chronic Assessment and Plan: reasonable control continue home medications follow trend of hemodynamics (5) Diabetes: Code(s): E11.9 - Type 2 diabetes mellitus without complications Status: Chronic Assessment and Plan: follow accuchecks glycemic control per hospitalists . Will continue to follow. Subjective Date/time seen: 05/02/23 11:55 Interval history: Follow-up for end stage renal disease on hemodialysis. Tolerating hemodialysis treatment at the time of my visit (seen on HD at 11:45AM); tolerated DUF session yesterday as well; H/H relatively stable since PRBC transfusion; noted plans for EGD later this afternoon. Exam Narrative: General: elderly and chronically ill-appearing female in NAD Heart: normal S1 and S2; no rub Lungs: coarse breath sounds; decreased at bases Abdomen: soft, nondistended, positive bowel sounds Extremities: no cyanosis or clubbing; trace edema Skin: warm and dry Objective Data Vital Signs Vital Signs: Vital Signs Temp Pulse Resp BP Pulse Ox O2 Del Method O2 Flow Rate 05/02/23 11:45 68 123/45 L 05/02/23 11:30 70 102/34 L 05/02/23 11:15 65 117/44 L 05/02/23 11:00 68 122/40 L 05/02/23 10:00 65 105/40 L 05/02/23 09:30 68 114/46 L 05/02/23 09:15 67 128/47 L 05/02/23 09:00 68 122/46 L 05/02/23 08:47 68 143/50 H 05/02/23 09:45 65 112/48 L 05/02/23 08:39 3 05/02/23 08:22 98.3 F 75 20 144/55 H 05/02/23 08:39 71 133/71 05/02/23 06:00 97.9 F 74 18 150/35 H 98 05/02/23 04:00 72 05/02/23 00:00 69 05/01/23 20:00 60 05/01/23 21:15 99 Nasal Cannula 4 05/01/23 22:34 67 20 05/01/23 22:31 99 Nasal Cannula 4 05/01/23 22:28 64 20 05/01/23 22:00 98.1 F 65 18 124/40 L 100 05/01/23 16:00 61 Intake/Output Intake/Output: Intake & Output 04/29/23 04/30/23 05/01/23 05/02/23 23:59 23:59 23:59 23:59 Intake Total 700 850 50 Output Total 2000 Balance 700 -1150 50 Meds/Results Medications: Active Medications Generic Name Dose Route Start Last Admin Trade Name Freq PRN Reason Stop Dose Admin Acetaminophen 650 mg 04/30/23 23:21 Acetaminophen 325 Mg Tablet PO Q6H PRN Mild Pain (1-3) or Fever Albuterol 2.5 mg 04/30/23 23:22 05/01/23 22:27 Albuterol Sulfate Neb 2.5 Mg/3 Ml Inh INHALATION 2.5 mg Q6HRT PRN Administration shortness of breath Alprazolam 0.5 mg 04/30/23 23:22 Alprazolam (*Crx) 0.5 Mg Tablet PO BID PRN Anxiety Amlodipine Besylate 10 mg 05/01/23 09:00 05/02/23 09:45 Amlodipine Besylate 5 Mg Tablet PO Not Given QAM LAUREN Atorvastatin Calcium 20 mg 04/30/23 23:35 05/01/23 21:25 Atorvastatin 20 Mg Tablet PO 20 mg HS LAUREN Administration Buspirone HC
--- NOTE | 2023-05-02 11:55 | P.PNNP_ITS ---
Progress Note: A&P Assessment and Plan (1) End stage renal disease: Code(s): N18.6 - End stage renal disease Status: Chronic Assessment and Plan: * HD today * continue M/W/F dialysis schedule while hospitalized * follow electrolytes, volume status, and clearance (2) Anemia: Code(s): D64.9 - Anemia, unspecified Status: Chronic Assessment and Plan: * chronic issue/problem * partly related to ESRD but acute blood loss a concern * guaiac positive stools noted * Epogen with HD * PRBC transfusion per protocol * GI following - EGD today * follow trend H/H (3) Chronic respiratory failure with hypoxia: Code(s): J96.11 - Chronic respiratory failure with hypoxia Status: Chronic Assessment and Plan: * multifactorial etiology: * known hx of COPD * mild volume overload * pulmonary HTN * chronic anemia * on supplemental oxygen at baseline * PRBC transfusion per protocol * follow respiratory status (4) Hypertension: Code(s): I10 - Essential (primary) hypertension Status: Chronic Assessment and Plan: * reasonable control * continue home medications * follow trend of hemodynamics (5) Diabetes: Code(s): E11.9 - Type 2 diabetes mellitus without complications Status: Chronic Assessment and Plan: * follow accuchecks * glycemic control per hospitalists . Will continue to follow. Subjective Date/time seen: 05/02/23 11:55 Interval history: Follow-up for end stage renal disease on hemodialysis. Tolerating hemodialysis treatment at the time of my visit (seen on HD at 11:45AM); tolerated DUF session yesterday as well; H/H relatively stable since PRBC transfusion; noted plans for EGD later this afternoon. Exam Narrative: General: elderly and chronically ill-appearing female in NAD Heart: normal S1 and S2; no rub Lungs: coarse breath sounds; decreased at bases Abdomen: soft, nondistended, positive bowel sounds Extremities: no cyanosis or clubbing; trace edema Skin: warm and dry Objective Data Vital Signs Vital Signs: Vital Signs Temp Pulse Resp BP Pulse Ox O2 Del Method O2 Flow Rate 05/02/23 11:45 68 123/45 L 05/02/23 11:30 70 102/34 L 05/02/23 11:15 65 117/44 L 05/02/23 11:00 68 122/40 L 05/02/23 10:00 65 105/40 L 05/02/23 09:30 68 114/46 L 05/02/23 09:15 67 128/47 L 05/02/23 09:00 68 122/46 L 05/02/23 08:47 68 143/50 H 05/02/23 09:45 65 112/48 L 05/02/23 08:39 3 05/02/23 08:22 98.3 F 75 20 144/55 H 05/02/23 08:39 71 133/71 05/02/23 06:00 97.9 F 74 18 150/35 H 98 05/02/23 04:00 72 05/02/23 00:00 69 05/01/23 20:00 60 05/01/23 21:15 99 Nasal Cannula 4 05/01/23 22:34 67 20 05/01/23 22:31 99 Nasal Cannula 4 05/01/23 22:28 64 20 05/01/23 22:00 98.1 F 65 18 124/40 L 100 05/01/23 16:00 61 Intake/Output Intake/Output: Intake & Output 04/29/23 04/30/23 05/01/23 05/02/23 23:59 23:59 23:59 23:59 Intake Total 700 850 50 Output
[2023-05-02 13:25] LABS: Hematocrit 31.2 % (37.0-47.0); Hemoglobin 9.1 g/dL (12.0-15.0); Mean Corpuscular HGB Conc 29.2 g/dl (32-36); Mean Corpuscular Hemoglobin 28.1 pg (26-34); Mean Corpuscular Volume 96.3 fl (80-100); Mean Platelet Volume 10.2 fl (7.4-10.4); Platelet Count Result 261 k/mm3 (150-375); Red Blood Count 3.24 M/mm3 (4.2-5.4); Red Cell Distribution Width 16.8 % (11.5-14.5); White Blood Count 6.5 K/mm3 (4.5-10.0)
[2023-05-02 13:37] LABS: Anion Gap 9 mmol/L (8-16); Blood Urea Nitrogen 12 mg/dL (7-17); Calcium 10.1 mg/dL (8.4-10.2); Carbon Dioxide 28 mmol/L (22-30); Chloride 102 mmol/L (98-107); Estimated CRCL calculation 16 ml/min; Estimated Glomerular Filt Rate 20; Glucose 85 mg/dL (65-110); Potassium 4.3 mmol/L (3.4-5.0); Sodium 139 mmol/L (137-145)
[2023-05-02] MEDS: SODIUM CHLORIDE 0.9% IV 500 ML 10 ML IV CONT (13:58)
--- NOTE | 2023-05-02 14:03 | WPDANESEPPF ---
Anes - Initial Pre Proc Eval Procedure: Operation Date: 05/02/23 15:00 Proposed Procedures p Esophagogastroduodenoscopy - Home Dominguez MD Date/Time: 05/02/23 14:03 Surgeon: José Randall MD Pre Op Diagnosis: GI Bleed Patient Data Age: 88 Gender: F Height: 1.65 m Weight: 74.9 kg Last Vital Signs Temp 97.1 F L 05/02/23 13:55 Pulse 76 05/02/23 13:55 Resp 18 05/02/23 13:55 BP 156/43 H 05/02/23 13:55 Pulse Ox 100 05/02/23 13:55 O2 Del Method Nasal Cannula 05/02/23 13:55 O2 Flow Rate 4 05/02/23 13:55 FiO2 36 05/01/23 22:31 Allergies Allergy/AdvReac Type Severity Reaction Status Date / Time adhesive tape Allergy Unknown PLASTIC Verified 05/02/23 13:54 TAPE hydrochlorothiazide Allergy Unknown Verified 05/02/23 13:54 latex Allergy Rash Verified 05/02/23 13:54 Home Medications Medication Instructions Recorded Confirmed Type atorvastatin 20 mg tablet 20 mg PO HS 06/22/21 04/30/23 History ergocalciferol (vitamin D2) 1,250 50,000 unit PO WEEKLY 06/22/21 04/30/23 History mcg (50,000 unit) capsule latanoprost 0.005 % eye drops 1 drp EACH EYE HS 06/22/21 04/30/23 History spironolactone 25 mg tablet 12.5 mg PO DAILY 06/22/21 04/30/23 History amlodipine 5 mg tablet (Norvasc) 10 mg PO QAM 30 days #60 tabs 03/24/22 04/30/23 Rx ferrous sulfate 325 mg (65 mg 324 mg PO BIDWM #60 tabs 04/11/22 04/30/23 Rx iron) tablet lisinopril 20 mg tablet 20 mg PO QAM #30 tabs 04/11/22 04/30/23 Rx docusate sodium 100 mg capsule 100 mg PO Q12HR #60 caps 05/11/22 04/30/23 Rx polyethylene glycol 3350 17 gram 17 g PO DAILY PRN constipation #14 05/11/22 04/30/23 Rx oral powder packet (Miralax) ea albuterol sulfate 2.5 mg/3 mL 2.5 mg (3 mL) inhalation Q6HRT PRN 06/16/22 04/30/23 Rx (0.083 %) solution for nebulization shortness of breath #7 mL acetaminophen 650 mg tablet 650 mg PO Q6H PRN Pain (Scale 07/21/22 04/30/23 History Score 1-3) buspirone 7.5 mg tablet 10 mg PO BID 07/21/22 04/30/23 History sevelamer carbonate 0.8 gram oral 0.8 g PO TID 01/19/23 04/30/23 History powder packet (Renvela) pantoprazole 40 mg tablet,delayed 40 mg PO QAM #0 tabs 02/02/23 04/30/23 Rx release escitalopram oxalate 10 mg tablet 10 mg PO DAILY 04/10/23 04/30/23 History alprazolam 0.5 mg tablet 0.5 mg PO BID PRN Anxiety #8 tabs 04/13/23 04/30/23 Rx cyanocobalamin (vitamin B-12) 1,000 mcg PO QAM #30 tabs 04/13/23 04/30/23 Rx 1,000 mcg tablet (Vitamin B-12) levothyroxine 125 mcg tablet 175 mcg PO DAILY@0630 04/30/23 04/30/23 History (Synthroid) meclizine 25 mg tablet 25 mg PO Q8H PRN dizziness 04/30/23 04/30/23 History Laboratory Tests 05/02/23 05/02/23 04:53 13:21 WBC 6.8 K/mm3 6.5 K/mm3 (4.5-10.0) (4.5-10.0) RBC 2.92 L M/mm3 3.24 L M/mm3 (4.2-5.4) (4.2-5.4) Hgb 8.2 L g/dL 9.1 L g/dL (12.0-15.0) (12.0-15.0) Hct 27.8 L % 31.2 L % (37.0-47.0) (37.0-47.0) MCV 95.2 fl 96.3 fl (80-100) (80-100) MCH 28.1 pg 28.1 pg (26-34) (26-34) MCHC 29.5 L g/dl 29.2 L g/dl (32-36) (32-36) RDW 16.9 H % 16.8 H % (11.5-14.5) (11.5-14.5) Plt Count 264 k/mm3 261 k/mm3 (150-375) (150-375) MPV 10.6 H fl 10.2 fl (7.4-10.4) (7.4-10.4) Immature Gran % (Auto) 1.3 H % (0-0.5) Neut % (Auto) 67.5 % (45.5-73.1) Lymph % (Auto) 10.4 L % (18.3-44.2) [place] % (Auto) 13.0 H % (2.6-8.5) Eos % (Auto) 6.9 H % (0-4.4) Baso % (Auto) 0.9 % (0.2-1.2) Lymph # (Auto) 0.71 L K/mm3 (0.9-3.2) [place] # (Auto) 0.9 H K/mm3 (0.1-0.6) Eos # (Auto) 0.5 H K/mm3 (0-0.3) Baso # (Auto) 0.1 K/mm3 (0.0-0.1) Abs Immat Gran (auto) 0.09 H K/mm3 (0.00-0.031) Absolute Neuts (auto) 4.6 K/mm3 (1.3-6.7) Absolute Nucleated RBC 0.0 K/mm3 (0.0-0.012) Nucleated RBC % 0.0 % (0.0-0.2) Platelet Estimate Adequate (Adequate) Hypochromasia 2+
[2023-05-02] MEDS: SEVELAMER CARBONATE 800 MG TABLET PO (18:00)
[2023-05-02] MEDS: FERROUS SULFATE 325 MG TABLET DR BY MOUTH (18:00)
[2023-05-02] MEDS: DOCUSATE SODIUM 100 MG CAPSULE PO (21:04)
[2023-05-02] MEDS: ATORVASTATIN 20 MG TABLET PO (21:04)
[2023-05-02] MEDS: busPIRone HCL 5 MG TABLET 10 MG PO (21:04)
[2023-05-02] MEDS: LATANOPROST 0.005% OP SOLN 2.5 ML BTL 1 DROP EACH EYE (21:05)
[2023-05-03] VITALS: PULSE 63
[2023-05-03 04:00] VITALS: PULSE 66
[2023-05-03 05:22] VITALS: BP 152/53; PULSE 70; RESP 17; TEMP 37; O2SAT 98
[2023-05-03 06:18] LABS: Basophils Absolute Auto 0.1 K/mm3 (0.0-0.1); Basophils Percent Auto 1.4 % (0.2-1.2); Eosinophils Absolute Auto 0.5 K/mm3 (0-0.3); Eosinophils Percent Auto 7.7 % (0-4.4); Hemoglobin 8.6 g/dL (12.0-15.0); Immature Granulocyte Absolute 0.09 K/mm3 (0.00-0.031); Immature Granulocyte Percent A 1.4 % (0-0.5); Lymphocytes Absolute Auto 0.73 K/mm3 (0.9-3.2); Lymphocytes Percent Auto 11.5 % (18.3-44.2); Mean Corpuscular HGB Conc 28.7 g/dl (32-36); Mean Corpuscular Hemoglobin 27.9 pg (26-34); Mean Corpuscular Volume 97.4 fl (80-100); Mean Platelet Volume 10.6 fl (7.4-10.4); Monocytes Absolute Auto 0.8 K/mm3 (0.1-0.6); Monocytes Percent Auto 13.3 % (2.6-8.5); Neutrophils Absolute Auto 4.1 K/mm3 (1.3-6.7); Neutrophils Percent Auto 64.7 % (45.5-73.1); Platelet Count Result 255 k/mm3 (150-375); Red Blood Count 3.08 M/mm3 (4.2-5.4); Red Cell Distribution Width 16.2 % (11.5-14.5); White Blood Count 6.3 K/mm3 (4.5-10.0)
[2023-05-03 06:30] LABS: Alanine Aminotransferase 6 U/L (6-35); Albumin Level 3.4 g/dL (3.5-5.1); Alkaline Phosphatase 71 U/L (38-126); Anion Gap 8 mmol/L (8-16); Aspartate Amino Transferase 15 U/L (14-36); Bilirubin,Total 0.4 mg/dL (0.2-1.3); Blood Urea Nitrogen 19 mg/dL (7-17); Calcium 8.9 mg/dL (8.4-10.2); Carbon Dioxide 27 mmol/L (22-30); Chloride 103 mmol/L (98-107); Estimated CRCL calculation 10 ml/min; Estimated Glomerular Filt Rate 11; Glucose 79 mg/dL (65-110); Potassium 4.5 mmol/L (3.4-5.0); Sodium 138 mmol/L (137-145)
[2023-05-03] MEDS: LEVOTHYROXINE SODIUM 100 MCG TABLET PO (06:40)
[2023-05-03] MEDS: LEVOTHYROXINE SODIUM 75 MCG TABLET PO (06:40)
[2023-05-03 07:04] LABS: Hypochromasia 1+ (NORMAL); Ovalocytes 1+ (NORMAL); Platelet Estimate Adequate (Adequate); Poikilocytosis 1+ (NORMAL)
[2023-05-03 07:05] LABS: Anisocytosis 1+ (NORMAL); Schistocytes None Seen (NORMAL)
--- NOTE | 2023-05-03 07:07 | PM.DS ---
DS: Admitting Diagnosis Discharge Date 05/03 Admitting Diagnosis hypoxia, low hemoglobin DS: Discharge Diagnosis Discharge Diagnosis (1) Profound anemia: Code(s): D64.9 - Anemia, unspecified Status: Chronic Assessment and Plan: hemoglobin is low at 6.1 in her stool was Hemoccult positive s/p 2 units PRBC, up to 8.0 today, will continue to monitor 05/02: Hgb 8.2/ Hct 27.8. On ferrous sulfate 324 mg PO BID. Last Iron panel in 03/2023 was normal as well as vitamin B12. (2) Heme positive stool: Code(s): R19.5 - Other fecal abnormalities Status: Acute Assessment and Plan: hemoglobin is low at 6.1 in her stool was Hemoccult positive GI consulted, EGD scheduled for tomorrow 05/02: Going for EGD today. No acute bleeding found. (3) Chronic respiratory failure with hypoxia: Code(s): J96.11 - Chronic respiratory failure with hypoxia Status: Chronic Assessment and Plan: CXR showed pulmonary edema DUF per nephrology on her home baseline of oxygen, satting 98% 05/02: Will received HD today. DUF from Sunday removed 2 L. (4) End-stage renal disease on hemodialysis: Code(s): N18.6 - End stage renal disease; Z99.2 - Dependence on renal dialysis Status: Chronic Assessment and Plan: Nephrology following continue M/W/F dialysis follow electrolytes, volume status, and clearance On telemetry 05/02: K+ 5.1. Going for HD today. Plan Feeding:NPO for EGD Analgesia: Tylenol Thromboembolic prophylaxis: SCD Ulcer prophylaxis: PPI Glycemic control: na Bowel regimen: miralax prn Lines: PIV Antibiotics: na Disposition: [facility] DS: Summary Hospital Course Hospital Course: Patient is an 88 YO female with PMH of end-stage renal disease on hemodialysis, chronic respiratory failure on 2 to 3 L nasal cannula, chronic obstructive pulmonary disease, pulmonary hypertension, diastolic dysfunction, hypertension, chronic anemia, diet-controlled diabetes, dementia admitted from the ER from dialysis for evaluation of shortness of breath. She is known to the hospitalist service from multiple admissions the last couple of months. She was most recently discharged on 04/13/2023 at which time she was admitted with hypoxia and anemia. Hemoglobin at that time was 6.6 and she received 2 units packed red blood cells. She is on iron and received EPO at times with dialysis. During dialysis she began complaining of shortness of breath and was found to have an SpO2 of 78% on her usual 3 L and she was brought in for evaluation. 05/01: Vital signs have been stable. Hemoglobin was once again low at 6.1, she received 2 units of PRBC and is now Hem of 8.0 and her stool was Hemoccult positive. She denies bloating, belching, and heartburn. She denies fever, chills, sweats, chest pain, shortness a breath, and cough. GI consulted and will do an EGD tomorrow. Patient received the rest of her dialysis treatment today. Nephrology on board and will follow their recommendations while inpatient. Speech recommended pureed/moderate thick diet as the patient has had 3 previous barium swallows here and has remained unchanged. Speech will continue to monitor how she does with this diet, may need to consider tube feeding in the future. 05/02: Mrs Contreras is seen this evening, 1645 after having her EGD and HD sessions today. EGD findings include esophageal ring which was dilated, hiatal hernia, gastric polyps which were biopsied, and a single non-bleeding AVM which was ablated. She had 1400 ml of fluid removed at HD. She denies SOB or chest pain at this time. She is on her home oxygen dose of 3 L NC. Her hemoglobin today was 9.1. Plan to d/c tomorrow most likely if hemoglobin remains stable. Status at Discharge Cognitive/behavioral status at discharge: baseline Time Spent with Patient Time attestation: Total time spent providing and/or coordinating discharge services:45 Exam Narrative:
[2023-05-03 08:00] VITALS: PULSE 68; O2SAT 98
[2023-05-03] MEDS: busPIRone HCL 5 MG TABLET 10 MG PO (08:40)
[2023-05-03] MEDS: CYANOCOBALAMIN 1,000 MCG TABLET 1000 MCG PO (08:41)
[2023-05-03] MEDS: SEVELAMER CARBONATE 800 MG TABLET PO ×2 (08:41→12:36)
[2023-05-03] MEDS: DOCUSATE SODIUM 100 MG CAPSULE PO (08:41)
[2023-05-03] MEDS: lisinopriL 20 MG TABLET PO (08:41)
[2023-05-03] MEDS: amLODIPine BESYLATE 5 MG TABLET 10 MG PO (08:41)
[2023-05-03] MEDS: FERROUS SULFATE 325 MG TABLET DR BY MOUTH (08:41)
[2023-05-03] MEDS: ESCITALOPRAM OXALATE 10 MG TABLET PO (08:42)
[2023-05-03] MEDS: SPIRONOLACTONE 12.5 MG TABLET PO (08:42)
[2023-05-03] MEDS: PANTOPRAZOLE 40 MG TABLET PO (08:42)
[2023-05-03 09:50] VITALS: PULSE 70; RESP 17; O2SAT 98
--- NOTE | 2023-05-03 11:00 | PC.NURSE ---
On 05/03/23, the student, [Hamlet Guillory], provided care and completed [facility] documentation on this patient. I have reviewed the student's documentation and agree with the findings.
--- NOTE | 2023-05-03 11:26 | PC.NURSE ---
On 05/03/23, the student, [Hamlet Guillory], provided care and completed [facility] documentation on this patient. I have reviewed the student's documentation and agree with the findings.
== END 2023-05-03 13:25 | DRG 377 ==
LOC: ANHED 16:46 → ANH2MED 17:13
PROVIDERS: Anesthesiology; Internal Medicine Gastroenterology; Internal Medicine Nephrology; Nurse Practitioner; Physician Assistant; Student in an Organized Health Care Education/Training Program; Admitting Provider Hospitalist; Emergency Provider Emergency Medicine; PCP Internal Medicine; Visit Provider Hospitalist
PROC: 0DJ08ZZ Inspection of Upper Intestinal Tract, Via Natural or Artificial Opening Endoscopic (ICD-10-PCS; CPT 43235; principal; 2023-05-02 15:00)
DX: K31.811 Angiodysplasia of stomach and duodenum with bleeding (principal); N18.6 End stage renal disease; I13.11 Hypertensive heart and chronic kidney disease without heart failure, with stage 5 chronic kidney disease, or end stage renal disease; J96.11 Chronic respiratory failure with hypoxia; K92.1 Melena; K22.2 Esophageal obstruction; K44.9 Diaphragmatic hernia without obstruction or gangrene; K31.7 Polyp of stomach and duodenum; D63.1 Anemia in chronic kidney disease; E78.5 Hyperlipidemia, unspecified; E55.9 Vitamin D deficiency, unspecified; E03.9 Hypothyroidism, unspecified; E11.22 Type 2 diabetes mellitus with diabetic chronic kidney disease; F03.90 Unspecified dementia, unspecified severity, without behavioral disturbance, psychotic disturbance, mood disturbance, and anxiety; F41.9 Anxiety disorder, unspecified; H40.9 Unspecified glaucoma; I27.20 Pulmonary hypertension, unspecified; J44.9 Chronic obstructive pulmonary disease, unspecified; K21.9 Gastro-esophageal reflux disease without esophagitis; N25.0 Renal osteodystrophy; Z66 Do not resuscitate; Z87.891 Personal history of nicotine dependence; Z99.2 Dependence on renal dialysis; Z86.16 Personal history of COVID-19; Z99.81 Dependence on supplemental oxygen; Z97.8 Presence of other specified devices
CPT/HCPCS: 36415; 36430; 71045; 80048; 80053; 80069; 83735; 84100; 85025; 85027; 85610; 85730; 86706; 86850; 86900; 86901; 86923; 87040; 87340; 93005; 94640; 96374; 99285; P9038; A9270; C1726; C9113; G0257; J2704; J7030; J7040; J7050; P9016; Q4081; Q5105

== ENCOUNTER 2023-06-07 12:02 | Emergency (ER) | payer MEDICARE, MEDICAID, SELFPAY ==
--- NOTE | ~2023-06-07 | CT_ITS ---
EXAMINATION: CT cervical spine wo con DATE: 06/07/2023 12:38 INDICATION: Fall with head injury TECHNIQUE: Computed tomography (CT) of the cervical spine was performed without intravenous contrast. Automated exposure control and iterative reconstruction technique were employed. The dose-length pro duct was 314.55 mGy-cm. COMPARISON: None FINDINGS: Bone alignment is normal. Vertebral body heights are normal. No fracture. Bridging anterior osteophyt es as well as osseous fusion across the posterior elements bilaterally extending from T2 through at l east T6. There is additional solid osseous fusion across the bilateral C3-C4 facet and uncovertebral joints. No acute fracture. Severe disc height loss with severe bilateral uncovertebral osteoarthritis and posterior disc osteophyte complexes at C5-C6 and C6-C7. Disc continues to mild central canal antoine nosis at both levels and mild to moderate neural foraminal stenosis on the right at C5-C6 and on the left at C6-C7. There is additional mild neural foraminal stenosis bilaterally at C3-C4. Multilevel ce rvical facet osteoarthritis, severe on the left and moderate on the right at C4-C5 and mild to modera te at the remaining cervical levels. Atherosclerotic calcifications at the bilateral carotid bulbs. C ervical soft tissues are otherwise unremarkable. Small posterior layering left pleural effusion. IMPRESSION: 1. Severe cervical spondylosis. No acute osseous abnormality. 2. Anterior and posterior osseous fusion from T3 through at least T6 consistent with diffuse idiopath ic skeletal hyperostosis (DISH). 3. Small left pleural effusion. Reviewed, dictated and finalized at location A. Y MACHINE OPERATOR IMPRESSION: 1. Severe cervical spondylosis. No acute osseous abnormality. 2. Anterior and posterior osseous fusion from T3 through at least T6 consistent with diffuse idiopathic skeletal hyperostosis (DISH). 3. Small left pleural effusion.
--- NOTE | ~2023-06-07 | CT_ITS ---
EXAMINATION: CT brain wo con DATE: 06/07/2023 12:38 INDICATION: Fall with head injury TECHNIQUE: Computed tomography (CT) of the head was performed without intravenous contrast. Sagittal and coronal reconstructions were performed. The mA was adjusted according to patient size. Iterative reconstruction technique was employed. The dose-length product was 681.00 mGy-cm. COMPARISON: head CT dated 07/21/2022 FINDINGS: No calvarial or maxillofacial fractures. 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 No acute intracranial hemorrhage, acute infarction or abnormal extra axial fluid collection. There is mild scattered white matter hypoattenuation consistent with chronic small vessel ischemic d isease. Symmetric prominence of the sulci consistent with mild age-appropriate diffuse cerebral volum e loss. Ventricles are normal and symmetric. No mass/mass effect. Changes of bilateral intraocular l ens replacement. And mild mucosal thickening the bilateral ethmoid sinuses and small amount of depend ently layering fluid in the left maxillary sinus, potentially blood in the setting of epistaxis. Mast oid air cells and middle ear cavities are clear. IMPRESSION: 1. No fracture or acute intracranial process. 2. Age-related changes in the brain and small lacunar infarct at the left subinsular white matter. Reviewed, dictated and finalized at location A. ACE CHARGING MACHINE OPERATOR IMPRESSION: 1. No fracture or acute intracranial process. 2. Age-related changes in the brain and small lacunar infarct at the left rafi sular white matter.
[2023-06-07 12:02] VITALS: BP 147/43; PULSE 69; RESP 22; TEMP 36.3; O2SAT 97
--- NOTE | 2023-06-07 12:25 | ED.FALL ---
HPI - Fall General Chief Complaint: Fall Stated Complaint: fall-lac Time Seen by Provider: 06/07/23 12:04 History of Present Illness HPI Narrative: Patient is 88-year-old female presenting after a fall. Patient resides in a nursing facility. She was reportedly using the bathroom when she tried to get up with assistance. Her nonslip sock fell off and she fell forward striking her head. Unclear if she lost consciousness. Patient complains of pain all over especially her forehead and neck. She is on her baseline oxygen. Further history limited secondary to baseline dementia. Related Data Home Medications Medication Instructions Recorded Confirmed atorvastatin 20 mg tablet 20 mg PO HS 06/22/21 04/30/23 ergocalciferol (vitamin D2) 1,250 50,000 unit PO WEEKLY 06/22/21 04/30/23 mcg (50,000 unit) capsule latanoprost 0.005 % eye drops 1 drp EACH EYE HS 06/22/21 04/30/23 spironolactone 25 mg tablet 12.5 mg PO DAILY 06/22/21 04/30/23 acetaminophen 650 mg tablet 650 mg PO Q6H PRN Pain (Scale 07/21/22 04/30/23 Score 1-3) buspirone 7.5 mg tablet 10 mg PO BID 07/21/22 04/30/23 sevelamer carbonate 0.8 gram oral 0.8 g PO TID 01/19/23 04/30/23 powder packet (Renvela) escitalopram oxalate 10 mg tablet 10 mg PO DAILY 04/10/23 04/30/23 levothyroxine 125 mcg tablet 175 mcg PO DAILY@0630 04/30/23 04/30/23 (Synthroid) meclizine 25 mg tablet 25 mg PO Q8H PRN dizziness 04/30/23 04/30/23 Allergies Allergy/AdvReac Type Severity Reaction Status Date / Time adhesive tape Allergy Unknown PLASTIC Verified 05/02/23 13:54 TAPE hydrochlorothiazide Allergy Unknown Verified 05/02/23 13:54 latex Allergy Rash Verified 05/02/23 13:54 Review of Systems Review of Systems: All systems reviewed & are unremarkable except as noted in HPI and below PMFSH Past Medical History Medical History Anxiety Chronic anemia Chronic obstructive pulmonary disease Chronic respiratory failure with hypoxia On 2 to 3 liters nasal cannula. COVID-19 (06/2021) Diastolic dysfunction End-stage renal disease on hemodialysis Erythropoietin deficiency anemia Gastroesophageal reflux disease Glaucoma Hyperlipidemia Hypertension Hypothyroidism Melena Osteoarthritis Pulmonary hypertension Renal osteodystrophy Type 2 diabetes mellitus Diet-controlled. Vitamin D deficiency Surgical History Surgical History Status post creation of arteriovenous fistula Left upper extremity. Family History Family History Other Diabetes mellitus Hypertension Social History Social History Social History: Surrogate decision maker: Amy Contreras, roman. Code status: Do not resuscitate. 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 Spiritual care concerns: No Exam Narrative: GENERAL: Elderly female sitting up in bed with C-collar in place, gauze wrapped around head HEAD: Normocephalic, 2-3cm laceration to mid forehead EYES: PERRLA and EOMI. ENT: Nares clear, no rhinorrhea or epistaxis. Mucous membranes moist. NECK: Supple. C-collar in place CHEST: Clear to auscultation. No respiratory distress. on 3L NC HEART: Regular rate and rhythm ABDOMEN: So
[2023-06-07] MEDS: LIDO 1%/EPINEPHRINE 1:100,000 20 ML VIAL 10 ML INFILTRATE (13:25)
[2023-06-07 14:46] VITALS: BP 157/50; PULSE 70; RESP 22; O2SAT 97
== END 2023-06-07 16:41 ==
PROVIDERS: Emergency Provider Emergency Medicine; PCP Internal Medicine
DX: S01.81XA Laceration without foreign body of other part of head, initial encounter (principal); F03.90 Unspecified dementia, unspecified severity, without behavioral disturbance, psychotic disturbance, mood disturbance, and anxiety; I12.0 Hypertensive chronic kidney disease with stage 5 chronic kidney disease or end stage renal disease; E11.22 Type 2 diabetes mellitus with diabetic chronic kidney disease; N18.6 End stage renal disease; D63.1 Anemia in chronic kidney disease; N25.0 Renal osteodystrophy; J44.9 Chronic obstructive pulmonary disease, unspecified; J96.11 Chronic respiratory failure with hypoxia; D64.9 Anemia, unspecified; E11.39 Type 2 diabetes mellitus with other diabetic ophthalmic complication; H42 Glaucoma in diseases classified elsewhere; E78.5 Hyperlipidemia, unspecified; E03.9 Hypothyroidism, unspecified; E55.9 Vitamin D deficiency, unspecified; I27.20 Pulmonary hypertension, unspecified; M19.90 Unspecified osteoarthritis, unspecified site; K21.9 Gastro-esophageal reflux disease without esophagitis; F41.9 Anxiety disorder, unspecified; Z99.81 Dependence on supplemental oxygen; Z86.16 Personal history of COVID-19; Z87.891 Personal history of nicotine dependence; M43.24 Fusion of spine, thoracic region; M47.812 Spondylosis without myelopathy or radiculopathy, cervical region; W01.0XXA Fall on same level from slipping, tripping and stumbling without subsequent striking against object, initial encounter
CPT/HCPCS: 12011; 70450; 72125; 99284

== ENCOUNTER 2023-07-04 13:52 | Inpatient (IN) | payer MEDICARE, MEDICAID, SELFPAY ==
[2023-07-04] VITALS (28 sets, daily range): BP systolic 106–154; BP diastolic 35–85; PULSE 55–86; RESP 16–23; TEMP 36.3–37.1; O2SAT 91–100; BMI 26.1
--- NOTE | ~2023-07-04 | XR_ITS ---
EXAMINATION: XR chest 1V portable DATE: 07/04/2023 15:10 INDICATION: Shortness of breath TECHNIQUE: frontal view of the chest was obtained. COMPARISON: Chest radiograph dated 05/01/2023 FINDINGS: Cardiomegaly. Diffuse increased interstitial pattern and bronchial cuffing consistent with likely con gestive heart failure related mild pulmonary edema. Opacities at bilateral lung bases consistent with small bilateral pleural effusions and associated atelectasis or pneumonia. No pneumothorax. IMPRESSION: 1. Likely congestive heart failure with cardiomegaly, mild pulmonary edema in small bilateral pleural effusions. 2. Bibasilar opacities most likely atelectasis although differential includes pneumonia. Reviewed, dictated and finalized at location A. S AGENT PEST CONTROL SERVICE IMPRESSION: 1. Likely congestive heart failure with cardiomegaly, mild pulmonary edema in s mall bilateral pleural effusions. 2. Bibasilar opacities most likely atelectasis although differential includes p neumonia.
[2023-07-04 14:28] LABS: Basophils Percent Auto 0.7 % (0.2-1.2); Eosinophils Absolute Auto 0.1 K/mm3 (0-0.3); Eosinophils Percent Auto 2.5 % (0-4.4); Hematocrit 23.7 % (37.0-47.0); Immature Granulocyte Absolute 0.08 K/mm3 (0.00-0.031); Immature Granulocyte Percent A 1.4 % (0-0.5); Lymphocytes Absolute Auto 0.51 K/mm3 (0.9-3.2); Lymphocytes Percent Auto 9.2 % (18.3-44.2); Mean Corpuscular HGB Conc 28.3 g/dl (32-36); Mean Corpuscular Hemoglobin 26.4 pg (26-34); Mean Corpuscular Volume 93.3 fl (80-100); Mean Platelet Volume 11.2 fl (7.4-10.4); Monocytes Absolute Auto 0.7 K/mm3 (0.1-0.6); Monocytes Percent Auto 12.7 % (2.6-8.5); Neutrophils Absolute Auto 4.1 K/mm3 (1.3-6.7); Neutrophils Percent Auto 73.5 % (45.5-73.1); Platelet Count Result 219 k/mm3 (150-375); Red Blood Count 2.54 M/mm3 (4.2-5.4); White Blood Count 5.5 K/mm3 (4.5-10.0)
--- NOTE | 2023-07-04 14:30 | PC.NURSE ---
monitor alarming for low sats. to pt bedside to find pt with pulse ox 78 % on 2 l o2 via nc. pt sleeping. aroused easily. oxygen increased with pulse ox not increasing. pt placed on 15 l nrb with pulse ox increasing to high 90's. edp notified and cpap ordered
[2023-07-04 14:40] LABS: Hemoglobin 6.7 g/dL (12.0-15.0); Prothrombin Time 13.6 Seconds (11.1-14.7)
[2023-07-04 14:41] LABS: Partial Thromboplastin Time 35.1 SECONDS (22.3-36.8)
[2023-07-04 14:42] LABS: Hypochromasia 1+ (NORMAL); Platelet Estimate Adequate (Adequate); Schistocytes None Seen (NORMAL)
[2023-07-04 14:43] LABS: Anisocytosis 2+ (NORMAL)
[2023-07-04 14:46] LABS: Alanine Aminotransferase 6 U/L (6-35); Albumin Level 3.5 g/dL (3.5-5.1); Alkaline Phosphatase 76 U/L (38-126); Anion Gap 5 mmol/L (8-16); Aspartate Amino Transferase 22 U/L (14-36); Bilirubin,Total 0.4 mg/dL (0.2-1.3); Blood Urea Nitrogen 27 mg/dL (7-17); Calcium 8.3 mg/dL (8.4-10.2); Carbon Dioxide 36 mmol/L (22-30); Chloride 96 mmol/L (98-107); Estimated CRCL calculation 11 ml/min; Estimated Glomerular Filt Rate 14; Glucose 73 mg/dL (65-110); Potassium 3.6 mmol/L (3.4-5.0); Sodium 137 mmol/L (137-145)
--- NOTE | 2023-07-04 15:47 | ED.GENADULT ---
HPI - General Adult General Chief complaint: Recheck/Abnormal Lab/Rx Stated complaint: low H&H Time Seen by Provider: 07/04/23 14:04 History of Present Illness HPI narrative: Patient is an 88-year-old female who presents ER with a low H and H in dialysis. Patient received 3 hours of dialysis. She has dementia and cannot provide a history. Patient with history of COPD as well as CHF and end-stage renal disease. She has no reports of pain at this time. She does have some coarse lung sounds post through. Initial oxygen saturation was normal on home O2 however it acutely deteriorated after arrival. She was placed on BiPAP. Related Data Home Medications Medication Instructions Recorded Confirmed atorvastatin 20 mg tablet 20 mg PO HS 06/22/21 04/30/23 ergocalciferol (vitamin D2) 1,250 50,000 unit PO WEEKLY 06/22/21 04/30/23 mcg (50,000 unit) capsule latanoprost 0.005 % eye drops 1 drp EACH EYE HS 06/22/21 04/30/23 spironolactone 25 mg tablet 12.5 mg PO DAILY 06/22/21 04/30/23 acetaminophen 650 mg tablet 650 mg PO Q6H PRN Pain (Scale 07/21/22 04/30/23 Score 1-3) buspirone 7.5 mg tablet 10 mg PO BID 07/21/22 04/30/23 sevelamer carbonate 0.8 gram oral 0.8 g PO TID 01/19/23 04/30/23 powder packet (Renvela) escitalopram oxalate 10 mg tablet 10 mg PO DAILY 04/10/23 04/30/23 levothyroxine 125 mcg tablet 175 mcg PO DAILY@0630 04/30/23 04/30/23 (Synthroid) meclizine 25 mg tablet 25 mg PO Q8H PRN dizziness 04/30/23 04/30/23 Allergies Allergy/AdvReac Type Severity Reaction Status Date / Time adhesive tape Allergy Unknown PLASTIC Verified 07/04/23 14:00 TAPE hydrochlorothiazide Allergy Unknown Verified 07/04/23 14:00 latex Allergy Rash Verified 07/04/23 14:00 Review of Systems Review of Systems: ROS unobtainable: Yes unobtainable due to mental status PMFSH Past Medical History Medical History Anxiety Chronic anemia Chronic obstructive pulmonary disease Chronic respiratory failure with hypoxia On 2 to 3 liters nasal cannula. COVID-19 (06/2021) Diastolic dysfunction End-stage renal disease on hemodialysis Erythropoietin deficiency anemia Gastroesophageal reflux disease Glaucoma Hyperlipidemia Hypertension Hypothyroidism Melena Osteoarthritis Pulmonary hypertension Renal osteodystrophy Type 2 diabetes mellitus Diet-controlled. Vitamin D deficiency Surgical History Surgical History Status post creation of arteriovenous fistula Left upper extremity. Family History Family History Other Diabetes mellitus Hypertension Social History Social History Social History: Surrogate decision maker: Amy Contreras, roman. Code status: Do not resuscitate. 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 Spiritual care concerns: No Exam Narrative: GENERAL: Chronically ill-appearing, well-nourished, and in no acute distress. HEAD: Normocephalic, scabbed a forehead. ENT: Mucous membranes moist. NECK: Supple. CHEST: coarse rales bilaterally. No respiratory distress. HEART: Regular rate and rhythm. Normal peripheral pulses. ABDOMEN: Soft, nontender, nondistended. EXTREMITIES: Normal range of juan antonio
[2023-07-04] MEDS: FUROSEMIDE INJ 40 MG/4 ML VIAL IV PUSH (15:54)
--- NOTE | 2023-07-04 18:39 | PM.IMHP ---
H&P: HPI History of Present Illness Date/Time: 07/04/23 16:30 Chief Complaint: Low hemoglobin. Narrative: This is an 88-year-old female with end-stage renal disease on hemodialysis, chronic respiratory failure on 2 to 3 L nasal cannula, chronic obstructive pulmonary disease, pulmonary hypertension, diastolic dysfunction, hypertension, chronic anemia, diet-controlled diabetes, and dementia who presented to the emergency department via EMS from dialysis for evaluation of a low hemoglobin. The patient is not a great historian and majority of the following is obtained via a review of her EMR. She is known to myself and the hospitalist service from multiple admissions over the past 6 months or so. Is my understanding that she went to dialysis today and was 3 hours into her treatment when it was apparently decided that she should come to the ER for a low hemoglobin level obtained on labs that time. She was reportedly on her usual home oxygen setting while at dialysis however when EMS arrived she acutely decompensated and she was placed on BiPAP on arrival to the ED. She is tolerating the BiPAP without issue and seems comfortable at the time my evaluation. She is unable to voice any specific complaints but continues to say ?help me.? Blood pressures have been stable since arrival. Labs were significant for a hemoglobin and hematocrit of 6.7 and 23.7% respectively. There were no significant electrolyte abnormalities noted. Chest x-ray showed likely congestive heart failure with cardiomegaly, mild pulmonary edema, and small pleural effusions. She is being admitted in this setting for blood transfusion and acute on chronic respiratory failure felt to be related to volume overload. Of note she has had ongoing issues with anemia and EGD last fall showed esophageal ring which was dilated, hiatal hernia, gastric polyps, and a single nonbleeding AVM which was ablated. Review of Systems Review of Systems: Review of systems was limited given her underlying dementia. She was unable to voice any complaints as per HPI and she stated no to every question asked of her. [facility] Past Medical History Medical History Anxiety Chronic anemia Chronic obstructive pulmonary disease Chronic respiratory failure with hypoxia On 2 to 3 liters nasal cannula. COVID-19 (06/2021) Diastolic dysfunction Diet-controlled type 2 diabetes mellitus End-stage renal disease on hemodialysis Erythropoietin deficiency anemia Gastroesophageal reflux disease Glaucoma Hyperlipidemia Hypertension Hypothyroidism Melena Osteoarthritis Pulmonary hypertension Renal osteodystrophy Vitamin D deficiency Surgical History Surgical History Status post creation of arteriovenous fistula Left upper extremity. Family History Family History Other Diabetes mellitus Hypertension Social History Social History Social History: Surrogate decision maker: Amy Contreras, roman. Code status: Do not resuscitate. 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 Spiritual care concerns: No Meds Home Medications and Allergies Home Medications Medication Instructions Recorded Confirmed
--- NOTE | 2023-07-04 18:42 | ADMGEN ---
This patient, Sofía Contreras, was admitted to IMU Room 203-01 from ED with BIPAP on 05/09 rate 16 -40%.SPO2 94-96%. Blood infusing right wreist site - site WNL pt alert oriented to self/place- pt has hard time understanding due to BIPAP. oriented to hospital policies and general routines including ID bracelet, bed and alarms, visiting hours, pain management, procedures, bathroom and other care routines, personal items, smoking policy, room service/diet, and visiting hours.Monitor on Patienty are encouraged to report perceived risks to care and to ask questions if they do not understand what they are told or what they should do.
[2023-07-04 22:26] LABS: MRSA (PCR) NOT DETECTED (NOT DETECTE)
[2023-07-04] MEDS: ATORVASTATIN 20 MG TABLET PO (23:19)
[2023-07-04] MEDS: cloNIDine HCL 0.1 MG TABLET PO (23:19)
[2023-07-04] MEDS: busPIRone HCL 10 MG TABLET PO (23:19)
[2023-07-04 23:29] LABS: Glucose Point of Care 70 mg/dl (65-105)
[2023-07-05] VITALS (35 sets, daily range): BP systolic 105–145; BP diastolic 29–51; PULSE 48–70; RESP 15–26; TEMP 36.2–37.2; O2SAT 93–100
[2023-07-05 00:55] LABS: Glucose Point of Care 111 mg/dl (65-105)
[2023-07-05 05:36] LABS: Hematocrit 28.1 % (37.0-47.0); Hemoglobin 8.2 g/dL (12.0-15.0); Mean Corpuscular HGB Conc 29.2 g/dl (32-36); Mean Corpuscular Hemoglobin 27.2 pg (26-34); Mean Platelet Volume 11.4 fl (7.4-10.4); Platelet Count Result 212 k/mm3 (150-375); Red Blood Count 3.02 M/mm3 (4.2-5.4); Red Cell Distribution Width 15.9 % (11.5-14.5); White Blood Count 4.9 K/mm3 (4.5-10.0)
[2023-07-05] MEDS: cloNIDine HCL 0.1 MG TABLET PO (05:44)
[2023-07-05] MEDS: LEVOTHYROXINE SODIUM 75 MCG TABLET PO (05:44)
[2023-07-05] MEDS: LEVOTHYROXINE SODIUM 100 MCG TABLET PO (05:45)
[2023-07-05 05:58] LABS: Anion Gap 8 mmol/L (8-16); Blood Urea Nitrogen 35 mg/dL (7-17); Calcium 8.1 mg/dL (8.4-10.2); Carbon Dioxide 34 mmol/L (22-30); Chloride 96 mmol/L (98-107); Estimated CRCL calculation 8 ml/min; Estimated Glomerular Filt Rate 10; Glucose 69 mg/dL (65-110); Magnesium 2.6 mg/dL (1.6-2.3); Phosphorus 4.6 mg/dL (2.5-4.5); Potassium 3.9 mmol/L (3.4-5.0); Sodium 138 mmol/L (137-145)
[2023-07-05 07:35] LABS: Hepatitis B Surface Antigen Negative (Negative)
[2023-07-05 07:53] LABS: Hepatitis B Surface Anti Res Negative
[2023-07-05 08:05] LABS: Glucose Point of Care 73 mg/dl (65-105)
[2023-07-05] MEDS: EPOETIN ALFA-EPBX 10,000 UNITS/ML VIAL 10000 UNITS IV PUSH (10:58)
[2023-07-05] MEDS: SODIUM CHLORIDE 0.9% IV 1,000 ML 999 ML IV CONT (11:07)
--- NOTE | 2023-07-05 11:18 | PM.CNNEP ---
Assessment and Plan Assessment and plan (1) End stage renal disease: Code(s): N18.6 - End stage renal disease Status: Chronic Assessment and Plan: DUF today and HD tomorrow continue M/W/F dialysis schedule while hospitalized follow electrolytes, volume status, and clearance (2) Acute and chronic respiratory failure: Code(s): J96.20 - Acute and chronic respiratory failure, unspecified whether with hypoxia or hypercapnia Status: Acute Assessment and Plan: multifactorial etiology: known hx of COPD volume overload pulmonary HTN chronic anemia on supplemental oxygen at baseline plan DUF today for fluid removal PRBC transfusion per protocol follow respiratory status (3) Anemia: Code(s): D64.9 - Anemia, unspecified Status: Chronic Assessment and Plan: chronic issue/problem partly related to ESRD but acute blood loss a concern (see previous EGD report) Epogen with HD PRBC transfusion per protocol follow trend H/H (4) Hypertension: Code(s): I10 - Essential (primary) hypertension Status: Chronic Assessment and Plan: reasonable control continue home medications follow trend of hemodynamics (5) Diabetes: Code(s): E11.9 - Type 2 diabetes mellitus without complications Status: Chronic Assessment and Plan: follow accuchecks glycemic control per hospitalists I will continue to follow the patient with you while she remains hospitalized and make further recommendations as needed. Thank you for allowing me to participate in the care of this patient. History of Present Illness Reason for Consult Consult date: 07/05/23 Reason for consult: end stage renal disease Chief Complaint Chief complaint: ACUTE RESPIRATORY FAILURE,CHF EXACERBATION,ANEMIA, History of Present Illness Narrative: A great majority of the information I have obtained is from review of the electronic medical record as well as my personal experience taking care of this patient in the past as well as discussion with the physicians/nurses involved in the patient's care as it is difficult to get a full and complete history from the patient due to her hardness of hearing and being a poor historian. The patient is an 88-year-old female with multiple medical problems as outlined below who presented to [facility] Emergency Room for further evaluation of a low hemoglobin. The patient presented to her outpatient dialysis clinic for her regular scheduled dialysis session which was initiated but then apparently, 3 hours into her treatment, it was felt that she should come to the emergency room for further assessment of a low hemoglobin that was done by outpatient dialysis labs. Upon EMS arrival to the dialysis unit, the patient became more acutely short of breath and more choir an increase in her supplemental oxygen. As far as I am aware, when she presented to the outpatient dialysis unit, her respiratory status was relatively stable. Upon arrival to the emergency room, the patient's respiratory status seem to have further decompensated and route and she was instituted on BiPAP therapy which seem to improve her respiratory status greatly. Unfortunately, the patient cannot give any further history in terms of any other complaints or problems at their arrival in the emergency room and both nursing and physicians told me she kept saying help me while in the ER. Subsequent workup and evaluation emergency room demonstrated her abnormal blood count with a hemoglobin and hematocrit of 6.7 and 23.7, respectively. In spite of her end-stage renal disease status, she had no critical electrolyte abnormalities however her chest x-ray did demonstrate evidence of pulmonary vascular congestion, pleural effusions, and fluid overload despite the fact that she received 3 hours of dialysis prior to her presentation. she was typed and crossed for packed red blood alcides
[2023-07-05 12:27] LABS: Glucose Point of Care 78 mg/dl (65-105)
[2023-07-05] MEDS: LATANOPROST 0.005% OP SOLN 2.5 ML BTL 1 DROP EACH EYE (13:06)
[2023-07-05] MEDS: PANTOPRAZOLE 40 MG TABLET PO (13:06)
[2023-07-05] MEDS: busPIRone HCL 10 MG TABLET PO ×2 (13:06→17:30)
[2023-07-05] MEDS: ESCITALOPRAM OXALATE 10 MG TABLET PO (13:06)
[2023-07-05] MEDS: Non-Formulary (sevelamer carbonate 0.8 gram ORAL powder in packet) 1 EACH PO ×2 (13:07→17:31)
--- NOTE | 2023-07-05 14:17 | PC.NURSE ---
On 07/05/23, the student, [ Dana Morales], provided care and completed [facility] documentation on this patient. I have reviewed the student's documentation and agree with the findings.
[2023-07-05 16:28] LABS: Glucose Point of Care 92 mg/dl (65-105)
--- NOTE | 2023-07-05 16:40 | PM.IMPN ---
Progress Note: A&P Assessment and Plan (1) Acute on chronic respiratory failure with hypoxia: Code(s): J96.21 - Acute and chronic respiratory failure with hypoxia Status: Acute Assessment and Plan: The patient presented to the ED from dialysis for evaluation of a low hemoglobin but enroute to the hospital, she developed sSOB and hypoxia. No ABG. CXR showing pulmonary edema with CMG, and small bilateral pleural effusions and bibasilar opacities. WBC was normal. Hgb 6.7. MRSA nasal swab negative. BCx NGTD. Abx held. [place] respiratory failure related to anemia and probably high output failure. Control fluid status with HD. Wean O2 to baseline. (2) Acute on chronic anemia: Code(s): D64.9 - Anemia, unspecified Status: Acute Assessment and Plan: Hgb 6.7 on admission. Iron and TSat normal in March. B12 low end of normal with markedly elevated MMA (2135). EGD in Apr 2023 showing esophageal ring, hiatal hernia, gastric polyp and duodenal AVM. Colonoscopy March 2022 showing diverticulosis. No anemia lab work up done here. She received 2U PRBC. Hgb up to 8.2 today. Suspect patient acute chronic anemia. Acute blood loss could be related to occult GI bleed from AVM. Replace B12. Monitor and transfuse as needed (3) Volume overload: Code(s): E87.70 - Fluid overload, unspecified Status: Acute Assessment and Plan: As above (4) End-stage renal disease on hemodialysis: Code(s): N18.6 - End stage renal disease; Z99.2 - Dependence on renal dialysis Status: Chronic Assessment and Plan: Patient with ESRD being followed by nephrology here. HD today with 2.5L removed. Continue HD per their recommendation. (5) Diet-controlled type 2 diabetes mellitus: Code(s): E11.9 - Type 2 diabetes mellitus without complications Status: Acute Assessment and Plan: The patient's blood glucose was reviewed on 07/05 Glucose remains well controlled. Continue to monitor (6) Hypertension: Code(s): I10 - Essential (primary) hypertension Status: Chronic Assessment and Plan: Patient's blood pressure was reviewed on 07/05 Blood pressure remains soft, especially with low diastolic BP. Will monitor closely. May need to back off on anti-HTN meds (7) Hypothyroidism: Code(s): E03.9 - Hypothyroidism, unspecified Status: Acute Assessment and Plan: TSH normal in August. Continue levothyroxine. Plan DVT prophylaxis - SCDs Code status - DNR Subjective Date/time seen: 07/05/23 16:40 Interval history: 88yo female with ESRD, DM and HTN here for low Hgb. Patient is awake but bipap in place and she seems confused. She was sleeping upon entering the room. After waking her, she states that she feels SOB. No CP. No n/v. Has a dry cough. She states she wears the mask at home. Was able to eat some today. Exam Narrative: AF 97.3 126/32 57 26 99% bipap Gen - NARD resting comfortably with bipap Chest - decreased BS in the right base and left base crackles. CV - RRR S1/S2. Tele showing PVCs Abd - Soft, NT/ND, Positive BS Ext - thrill and bruit LUE Neuro - Alert but confused. Hx difficult with bipap in place. no focal weakness Skin - Warm and dry Objective Data Vital Signs Vital Signs: Vital Signs - 24 hr 07/04/23 16:41 07/04/23 16:45 07/04/23 17:00 Temperature 97.6 F 97.5 F L Pulse Rate 65 64 64 Respiratory Rate 23 H 21 H 17 Blood Pressure 119/38 L 111/36 L 113/36 L Pulse Oximetry 99 99 100 Oxygen Delivery Oxygen Flow Rate Fraction of Inspired Oxygen 07/04/23 17:30 07/04/23 17:59 07/04/23 18:00 Temperature 97.5 F L Pulse Rate 67 71 71 Respiratory Rate 18 16 16 Blood Pressure 133/41 L 130/62 130/62 Pulse Oximetry 100 100 Oxygen Delivery Oxygen Flow Rate Fraction of Inspired Oxygen 07/04/23 19:00 07/04/23 19:25 07/04/23 19:43 Temperature 97.
[2023-07-05] MEDS: FERROUS SULFATE 325 MG TABLET DR 324 MG PO (17:30)
[2023-07-05] MEDS: DOCUSATE SODIUM 100 MG CAPSULE PO (17:30)
[2023-07-05] MEDS: CYANOCOBALAMIN INJ 1,000 MCG/ML VIAL 1000 MCG IM (17:39)
[2023-07-05 20:06] LABS: Glucose Point of Care 86 mg/dl (65-105)
[2023-07-05] MEDS: ATORVASTATIN 20 MG TABLET PO (20:11)
[2023-07-06] VITALS (30 sets, daily range): BP systolic 104–149; BP diastolic 26–52; PULSE 51–66; RESP 18–24; TEMP 35.9–37; O2SAT 92–100
[2023-07-06] MEDS: ALPRAZolam (*CRX) 0.5 MG TABLET PO ×2 (04:25→21:51)
[2023-07-06 04:40] LABS: Hemoglobin 8.5 g/dL (12.0-15.0); Mean Corpuscular HGB Conc 29.3 g/dl (32-36); Mean Corpuscular Hemoglobin 27.3 pg (26-34); Mean Corpuscular Volume 93.2 fl (80-100); Mean Platelet Volume 10.8 fl (7.4-10.4); Platelet Count Result 257 k/mm3 (150-375); Red Blood Count 3.11 M/mm3 (4.2-5.4); Red Cell Distribution Width 16.2 % (11.5-14.5); White Blood Count 6.5 K/mm3 (4.5-10.0)
[2023-07-06 05:14] LABS: Albumin Level 3.5 g/dL (3.5-5.1); Anion Gap 7 mmol/L (8-16); Blood Urea Nitrogen 43 mg/dL (7-17); Calcium 8.4 mg/dL (8.4-10.2); Carbon Dioxide 36 mmol/L (22-30); Chloride 95 mmol/L (98-107); Estimated CRCL calculation 6 ml/min; Estimated Glomerular Filt Rate 7; Glucose 73 mg/dL (65-110); Magnesium 2.4 mg/dL (1.6-2.3); Phosphorus 3.6 mg/dL (2.5-4.5); Sodium 138 mmol/L (137-145)
[2023-07-06 05:28] LABS: Potassium 4.4 mmol/L (3.4-5.0)
[2023-07-06 06:22] LABS: Free T4 Free Thyroxine Reflex 1.35 ng/dL (0.78-2.19)
[2023-07-06] MEDS: LEVOTHYROXINE SODIUM 75 MCG TABLET PO (06:33)
[2023-07-06] MEDS: LEVOTHYROXINE SODIUM 100 MCG TABLET PO (06:33)
[2023-07-06 07:18] LABS: Total Triiodothyronine (T3) 0.57 NG/ML (0.97-1.69)
[2023-07-06] MEDS: busPIRone HCL 10 MG TABLET PO ×2 (08:27→16:32)
[2023-07-06] MEDS: FERROUS SULFATE 325 MG TABLET DR 324 MG PO ×2 (08:27→16:32)
[2023-07-06] MEDS: PANTOPRAZOLE 40 MG TABLET PO (08:27)
[2023-07-06] MEDS: ESCITALOPRAM OXALATE 10 MG TABLET PO (08:27)
[2023-07-06] MEDS: CYANOCOBALAMIN 1,000 MCG TABLET 1000 MCG PO (08:27)
[2023-07-06] MEDS: DOCUSATE SODIUM 100 MG CAPSULE PO ×2 (08:27→16:32)
[2023-07-06] MEDS: LATANOPROST 0.005% OP SOLN 2.5 ML BTL 1 DROP EACH EYE (08:28)
[2023-07-06 08:30] LABS: Glucose Point of Care 72 mg/dl (65-105)
--- NOTE | 2023-07-06 10:12 | PM.PNNEP ---
Progress Note: A&P Assessment and Plan (1) End stage renal disease: Code(s): N18.6 - End stage renal disease Status: Chronic Assessment and Plan: HD today continue M/W/F dialysis schedule while hospitalized follow electrolytes, volume status, and clearance (2) Acute and chronic respiratory failure: Code(s): J96.20 - Acute and chronic respiratory failure, unspecified whether with hypoxia or hypercapnia Status: Acute Assessment and Plan: multifactorial etiology: known hx of COPD volume overload pulmonary HTN chronic anemia on supplemental oxygen at baseline DUF yesterday and HD today for fluid removal PRBC transfusion per protocol follow respiratory status (3) Anemia: Code(s): D64.9 - Anemia, unspecified Status: Chronic Assessment and Plan: chronic issue/problem partly related to ESRD but acute blood loss a concern (see previous EGD report) Epogen with HD PRBC transfusion per protocol follow trend H/H (4) Hypertension: Code(s): I10 - Essential (primary) hypertension Status: Chronic Assessment and Plan: reasonable control a bit on the soft continue home medications but adjust/holding parameters instituted follow trend of hemodynamics (5) Diabetes: Code(s): E11.9 - Type 2 diabetes mellitus without complications Status: Chronic Assessment and Plan: follow accuchecks glycemic control per hospitalists Will continue to follow. Subjective Date/time seen: 07/06/23 10:12 Interval history: Follow-up for end stage renal disease on hemodialysis. Tolerating hemodialysis treatment at the time of my visit (seen on HD at 10:00AM); tolerated DUF session yesterday as well; respiratory status/breathing appears to have improved as off BiPAP but requiring high flow supplemental oxygen; remains confused but in no apparent distress; no issues/events overnight or earlier this morning. Exam Narrative: General: elderly and chronically ill-appearing female in NAD Heart: normal S1 and S2; no rub Lungs: coarse breath sounds; decreased at bases; few bibasilar crackles Abdomen: soft, nondistended, positive bowel sounds Extremities: no cyanosis or clubbing; trace edema Skin: warm and dry Objective Data Vital Signs Vital Signs: Vital Signs Temp Pulse Resp BP Pulse Ox O2 Del Method O2 Flow Rate 07/06/23 10:00 51 L 149/45 H 07/06/23 09:40 56 L 121/47 L 07/06/23 12:30 97.7 F 54 L 24 H 122/43 L 100 07/06/23 10:40 57 L 125/47 L 07/06/23 09:20 58 L 135/51 L 07/06/23 09:00 57 L 130/49 L 07/06/23 09:12 95 High Flow Nasal Cannula 5 07/06/23 08:20 98 High Flow Nasal Cannula 6 07/06/23 08:53 57 L 141/49 H 07/06/23 08:53 5 07/06/23 08:43 97.3 F L 57 L 24 H 125/52 L 07/06/23 08:00 97.3 F L 59 L 22 H 137/29 L 99 07/06/23 06:00 59 L 07/06/23 04:53 97.6 F 62 22 H 128/40 L 96 07/06/23 01:00 58 L 22 H 98 BiPAP 07/06/23 04:00 98 BiPAP 07/06/23 04:00 65 07/06/23 02:00 60 07/06/23 00:00 66 07/05/23 22:00 54 L 07/06/23 00:00 98 BiPAP 07/05/23 23:31 97.8 F 59 L 25 H 132/41 L 98 07/05/23 20:00 70 07/05/23 21:15 61 22 H 97 BiPAP 07/05/23 20:00 96 BiPAP 07/05/23 19:56 97.1 F L 64 21 H 136/38 L 96 07/05/23 18:00 59 L 07/05/23 17:22 98 High Flow Nasal Cannula 7 Intake/Output Intake/Output: Intake & Output 07/03/23 07/04/23 07/05/23 07/06/23 23:59 23:59 23:59 23:59 Intake Total 350 660 120 Output Total 2500 Balance 350 -1840 120 Meds/Results Medications: Active Medications Generic Name Dose Route Start Last Admin Trade Name Freq PRN Reason Stop Dose Admin Acetaminophen 650 mg 07/04/23 15:43 Acetaminophen 325 Mg Tablet PO Q4H PRN Mild Pain (1
[2023-07-06] MEDS: EPOETIN ALFA-EPBX 10,000 UNITS/ML VIAL 10000 UNITS IV PUSH (10:25)
--- NOTE | 2023-07-06 12:08 | PCPTNOTE ---
Attempted PT evaluation, pt in dialysis. Will follow.
--- NOTE | 2023-07-06 12:11 | PCOTNOTE ---
Addendum entered by Shweta Shirley, OT 07/06/23 14:00: 14:00-Pt is back from dialysis but declines working with therapy at this time. Will continue to follow. Original Note: Pt is currently out of the room at dialysis. Will continue to follow for OT evaluation.
[2023-07-06 13:49] LABS: Glucose Point of Care 78 mg/dl (65-105)
--- NOTE | 2023-07-06 14:40 | PM.IMPN ---
Progress Note: A&P Assessment and Plan (1) Acute on chronic respiratory failure with hypoxia: Code(s): J96.21 - Acute and chronic respiratory failure with hypoxia Status: Acute Assessment and Plan: The patient presented to the ED from dialysis for evaluation of a low hemoglobin but enroute to the hospital, she developed SOB and hypoxia. No ABG. CXR showing pulmonary edema with CMG, and small bilateral pleural effusions and bibasilar opacities. WBC was normal. Hgb 6.7. MRSA nasal swab negative. BCx NGTD. Abx held. [place] respiratory failure related to anemia and probably high output failure. Doing much better. Off bipap. Control fluid status with HD. Wean O2 to baseline 2-3L. (2) Acute on chronic anemia: Code(s): D64.9 - Anemia, unspecified Status: Acute Assessment and Plan: Hgb 6.7 on admission. Iron and TSat normal in March. B12 low end of normal with markedly elevated MMA (2135). EGD in Apr 2023 showing esophageal ring, hiatal hernia, gastric polyp and duodenal AVM. Colonoscopy March 2022 showing diverticulosis. No anemia lab work up done here. She received 2U PRBC. Hgb up to 8 range. Suspect patient acute chronic anemia. Acute blood loss could be related to occult GI bleed from AVM. Replace B12. Monitor and transfuse as needed (3) Volume overload: Code(s): E87.70 - Fluid overload, unspecified Status: Acute Assessment and Plan: As above (4) End-stage renal disease on hemodialysis: Code(s): N18.6 - End stage renal disease; Z99.2 - Dependence on renal dialysis Status: Chronic Assessment and Plan: Patient with ESRD being followed by nephrology here. HD yesterday and today Continue HD per their recommendation. (5) Diet-controlled type 2 diabetes mellitus: Code(s): E11.9 - Type 2 diabetes mellitus without complications Status: Acute Assessment and Plan: The patient's blood glucose was reviewed on 2 Glucose remains well controlled. Continue to monitor (6) Hypertension: Code(s): I10 - Essential (primary) hypertension Status: Chronic Assessment and Plan: Patient's blood pressure was reviewed on 22 Blood pressure remains soft, especially with low diastolic BP. Norvasc continued but clonidine and spironolactone Will monitor closely. (7) Hypothyroidism: Code(s): E03.9 - Hypothyroidism, unspecified Status: Acute Assessment and Plan: TSH normal in August. Continue levothyroxine. Plan DVT prophylaxis - SCDs Code status - DNR Subjective Date/time seen: 07/06/23 14:40 Interval history: 88yo female with chronic respiratory failure, ESRD, DM and HTN here for low Hgb. Patient alert but confused so hx unreliable. She is back from HD. Able to be weaned off bipap Review of Systems Review of Systems: ROS unobtainable: Yes unobtainable due to medical condition Exam Narrative: AF 97.7 119/28 54 24 100% 5L HFNC Gen - NARD Chest - mild inspiratory crackles anteriorly and in the flanks, nml RR CV - RRR S1/S2. Tele showing PVCs Abd - Soft, NT/ND, Positive BS Ext - thrill and bruit LUE Neuro - Alert but confused. Skin - Warm and dry Objective Data Vital Signs Vital Signs: Vital Signs - 24 hr 07/05/23 15:49 07/05/23 16:00 07/05/23 16:00 Temperature 97.3 F L Pulse Rate 56 L 57 L Respiratory Rate 26 H Blood Pressure 126/32 L Pulse Oximetry 99 99 Oxygen Delivery BiPAP Oxygen Flow Rate Fraction of Inspired Oxygen 40 07/05/23 17:22 07/05/23 18:00 07/05/23 19:56 Temperature 97.1 F L Pulse Rate 59 L 64 Respiratory Rate 21 H Blood Pressure 136/38 L Pulse Oximetry 98 96 Oxygen Delivery High Flow Nasal Cannula Oxygen Flow Rate 7 Fraction of Inspired Oxygen 07/05/23 20:00 07/05/23 21:15 07/05/23 20:00 Temperature Pulse Rate 61 70 Respiratory Rate 22 H Blood Pressure
[2023-07-06 16:21] LABS: Glucose Point of Care 78 mg/dl (65-105)
[2023-07-06] MEDS: Non-Formulary (sevelamer carbonate 0.8 gram ORAL powder in packet) 1 EACH PO (16:33)
[2023-07-06] MEDS: ACETAMINOPHEN 325 MG TABLET 650 MG PO ×2 (17:10→21:51)
--- NOTE | 2023-07-06 18:21 | PC.NURSE ---
Pt. arrived from IMU room 203 into room 307-2 via bed at 18:20.
--- NOTE | 2023-07-06 18:56 | PC.NURSE ---
This patient, Sofía Contreras, was transferred to [facility] on 07/06/23 at 1856. Personal belongings sent with patient. Report given to Jen SCHAFFER. Appropriate documentation sent with patient.
[2023-07-06] MEDS: ATORVASTATIN 20 MG TABLET PO (20:13)
[2023-07-06 20:20] LABS: Glucose Point of Care 111 mg/dl (65-105)
[2023-07-07] VITALS (12 sets, daily range): BP systolic 122–139; BP diastolic 33–96; PULSE 54–70; RESP 16–24; TEMP 36–36.8; O2SAT 92–100
[2023-07-07] MEDS: LEVOTHYROXINE SODIUM 75 MCG TABLET PO (06:17)
[2023-07-07] MEDS: LEVOTHYROXINE SODIUM 100 MCG TABLET PO (06:17)
[2023-07-07 07:23] LABS: Hematocrit 34.2 % (37.0-47.0); Hemoglobin 9.6 g/dL (12.0-15.0); Mean Corpuscular HGB Conc 28.1 g/dl (32-36); Mean Corpuscular Hemoglobin 27.1 pg (26-34); Mean Corpuscular Volume 96.6 fl (80-100); Mean Platelet Volume 10.6 fl (7.4-10.4); Platelet Count Result 268 k/mm3 (150-375); Red Blood Count 3.54 M/mm3 (4.2-5.4); Red Cell Distribution Width 15.9 % (11.5-14.5); White Blood Count 5.7 K/mm3 (4.5-10.0)
[2023-07-07 07:41] LABS: Albumin Level 3.5 g/dL (3.5-5.1); Anion Gap 6 mmol/L (8-16); Blood Urea Nitrogen 16 mg/dL (7-17); Calcium 8.9 mg/dL (8.4-10.2); Carbon Dioxide 31 mmol/L (22-30); Chloride 102 mmol/L (98-107); Estimated CRCL calculation 9 ml/min; Estimated Glomerular Filt Rate 12; Glucose 75 mg/dL (65-110); Phosphorus 3.1 mg/dL (2.5-4.5); Potassium 4.1 mmol/L (3.4-5.0); Sodium 139 mmol/L (137-145)
[2023-07-07] MEDS: CYANOCOBALAMIN 1,000 MCG TABLET 1000 MCG PO (07:56)
[2023-07-07] MEDS: PANTOPRAZOLE 40 MG TABLET PO (07:56)
[2023-07-07] MEDS: ESCITALOPRAM OXALATE 10 MG TABLET PO (07:56)
[2023-07-07] MEDS: busPIRone HCL 10 MG TABLET PO ×2 (07:56→16:25)
[2023-07-07] MEDS: FERROUS SULFATE 325 MG TABLET DR 324 MG PO ×2 (07:56→16:25)
[2023-07-07] MEDS: DOCUSATE SODIUM 100 MG CAPSULE PO ×2 (07:56→16:25)
[2023-07-07 07:58] LABS: Glucose Point of Care 67 mg/dl (65-105)
[2023-07-07 08:16] LABS: Glucose Point of Care 74 mg/dl (65-105)
--- NOTE | 2023-07-07 09:35 | PCOTNOTE ---
Attempted OT eval, pt. refused stating that she is out of it and too tired. Will follow.
--- NOTE | 2023-07-07 10:18 | PCPTNOTE ---
pt eating breakfast and not seen at 830; refused PT eval at 935;
[2023-07-07] MEDS: Non-Formulary (sevelamer carbonate 0.8 gram ORAL powder in packet) 1 EACH PO ×2 (11:03→16:25)
[2023-07-07] MEDS: LATANOPROST 0.005% OP SOLN 2.5 ML BTL 1 DROP EACH EYE (11:03)
[2023-07-07 11:13] LABS: Glucose Point of Care 138 mg/dl (65-105)
--- NOTE | 2023-07-07 11:50 | P.PNNP_ITS ---
Progress Note: A&P Assessment and Plan (1) End stage renal disease: Code(s): N18.6 - End stage renal disease Status: Chronic Assessment and Plan: * HD done yesterday. * Next treatment will be done on Sunday * volume status seems okay right now. * Potassium and CO2 are okay today. (2) Acute and chronic respiratory failure: Code(s): J96.20 - Acute and chronic respiratory failure, unspecified whether with hypoxia or hypercapnia Status: Acute Assessment and Plan: * multifactorial etiology: * known hx of COPD * volume overload * pulmonary HTN * chronic anemia * on supplemental oxygen at baseline * Fluid removed on dialysis and Sunday. * Seems at baseline now (3) Anemia: Code(s): D64.9 - Anemia, unspecified Status: Chronic Assessment and Plan: * chronic issue/problem * partly related to ESRD but acute blood loss a concern (see previous EGD report) * Epogen with HD * hemoglobin seems to be pretty good right now at 9.6. (4) Hypertension: Code(s): I10 - Essential (primary) hypertension Status: Chronic Assessment and Plan: * Systolic 110-140 in the last 24hours. * continue home medications but adjust/holding parameters instituted * follow trend of hemodynamics (5) Diabetes: Code(s): E11.9 - Type 2 diabetes mellitus without complications Status: Chronic Assessment and Plan: * follow accuchecks * glycemic control per hospitalists Subjective Date/time seen: 07/07/23 11:50 Interval history: patient is lying flat in bed comfortably. She is a bit confused. Exam Narrative: General: elderly and chronically ill-appearing female in NAD Heart: normal S1 and S2; no rub Lungs: coarse breath sounds; decreased at bases; few bibasilar crackles Abdomen: soft, nondistended, positive bowel sounds Extremities: no cyanosis or clubbing; trace edema Skin: No rash Objective Data Vital Signs Vital Signs: Vital Signs - 24 hr 07/06/23 12:30 07/06/23 12:00 07/06/23 12:15 Temperature 97.7 F Pulse Rate 54 L 51 L 55 L Respiratory Rate 24 H Blood Pressure 122/43 L 108/48 L 112/41 L Pulse Oximetry 100 Oxygen Delivery Oxygen Flow Rate Fraction of Inspired Oxygen 07/06/23 12:23 07/06/23 14:30 07/06/23 15:56 Temperature 97.3 F L Pulse Rate 59 L 60 Respiratory Rate 20 Blood Pressure 114/38 L 119/28 L 129/29 L Pulse Oximetry 96 Oxygen Delivery Oxygen Flow Rate Fraction of Inspired Oxygen 07/06/23 12:00 07/06/23 14:00 07/06/23 18:27 Temperature Pulse Rate 58 L 59 L Respiratory Rate Blood Pressure Pulse Oximetry 92 Oxygen Delivery Nasal Cannula Oxygen Flow Rate 5 Fraction of Inspired Oxygen 07/06/23 20:00 07/06/23 20:00 07/07/23 00:00 Temperature 96.7 F L 97.8 F Pulse Rate 62 54 L Respiratory Rate 18 22 H Blood Pressure 126/35 L 125/33 L Pulse Oximetry 95 95 97 Oxygen Delivery Nasal Cannula Oxygen Flow Rate 5 Fraction of Inspired Oxygen
--- NOTE | 2023-07-07 11:50 | PM.PNNEP ---
Progress Note: A&P Assessment and Plan (1) End stage renal disease: Code(s): N18.6 - End stage renal disease Status: Chronic Assessment and Plan: HD done yesterday. Next treatment will be done on Sunday volume status seems okay right now. Potassium and CO2 are okay today. (2) Acute and chronic respiratory failure: Code(s): J96.20 - Acute and chronic respiratory failure, unspecified whether with hypoxia or hypercapnia Status: Acute Assessment and Plan: multifactorial etiology: known hx of COPD volume overload pulmonary HTN chronic anemia on supplemental oxygen at baseline Fluid removed on dialysis and Sunday. Seems at baseline now (3) Anemia: Code(s): D64.9 - Anemia, unspecified Status: Chronic Assessment and Plan: chronic issue/problem partly related to ESRD but acute blood loss a concern (see previous EGD report) Epogen with HD hemoglobin seems to be pretty good right now at 9.6. (4) Hypertension: Code(s): I10 - Essential (primary) hypertension Status: Chronic Assessment and Plan: Systolic 110-140 in the last 24hours. continue home medications but adjust/holding parameters instituted follow trend of hemodynamics (5) Diabetes: Code(s): E11.9 - Type 2 diabetes mellitus without complications Status: Chronic Assessment and Plan: follow accuchecks glycemic control per hospitalists Subjective Date/time seen: 07/07/23 11:50 Interval history: patient is lying flat in bed comfortably. She is a bit confused. Exam Narrative: General: elderly and chronically ill-appearing female in NAD Heart: normal S1 and S2; no rub Lungs: coarse breath sounds; decreased at bases; few bibasilar crackles Abdomen: soft, nondistended, positive bowel sounds Extremities: no cyanosis or clubbing; trace edema Skin: No rash Objective Data Vital Signs Vital Signs: Vital Signs - 24 hr 07/06/23 12:30 07/06/23 12:00 07/06/23 12:15 Temperature 97.7 F Pulse Rate 54 L 51 L 55 L Respiratory Rate 24 H Blood Pressure 122/43 L 108/48 L 112/41 L Pulse Oximetry 100 Oxygen Delivery Oxygen Flow Rate Fraction of Inspired Oxygen 07/06/23 12:23 07/06/23 14:30 07/06/23 15:56 Temperature 97.3 F L Pulse Rate 59 L 60 Respiratory Rate 20 Blood Pressure 114/38 L 119/28 L 129/29 L Pulse Oximetry 96 Oxygen Delivery Oxygen Flow Rate Fraction of Inspired Oxygen 07/06/23 12:00 07/06/23 14:00 07/06/23 18:27 Temperature Pulse Rate 58 L 59 L Respiratory Rate Blood Pressure Pulse Oximetry 92 Oxygen Delivery Nasal Cannula Oxygen Flow Rate 5 Fraction of Inspired Oxygen 07/06/23 20:00 07/06/23 20:00 07/07/23 00:00 Temperature 96.7 F L 97.8 F Pulse Rate 62 54 L Respiratory Rate 18 22 H Blood Pressure 126/35 L 125/33 L Pulse Oximetry 95 95 97 Oxygen Delivery Nasal Cannula Oxygen Flow Rate 5 Fraction of Inspired Oxygen 07/07/23 00:06 07/07/23 03:30 07/07/23 04:00 Temperature 98.2 F Pulse Rate 63 60 60 Respiratory Rate 22 H 24 H 16 Blood Pressure 127/33 L Pulse Oximetry 97 97 98 Oxygen Delivery BiPAP BiPAP Oxygen Flow Rate Fraction of Inspired Oxygen 07/07/23 08:20 07/07/23 08:48 07/07/23 08:00 Temperature Pulse Rate Respiratory Rate Blood Pressure Pulse Oximetry 98 98 94 Oxygen Delivery Nasal Cannula Nasal Cannula Nasal Cannula Oxygen Flow Rate 5 3 5 Fraction of Inspired Oxygen 40 32 07/07/23 09:00 07/07/23 08:00 Temperature 97.8 F Pulse Rate 65 Respiratory Rate 20 Blood Pressure 139/36 L Pulse Oximetry 98 92 Oxygen Delivery Nasal Cannula Oxygen Flow Rate 3 Fraction of Inspired Oxygen Intake/Output Intake/Output: Intake & Output 07/04/23 07/05/23 07/06/23 07/07/23 23:59 23:59 23:59 23:59 Intake Total 350 660 490 698 Output Total 25
[2023-07-07 16:17] LABS: Glucose Point of Care 97 mg/dl (65-105)
--- NOTE | 2023-07-07 16:30 | PM.IMPN ---
Progress Note: A&P Assessment and Plan (1) Acute on chronic respiratory failure with hypoxia: Code(s): J96.21 - Acute and chronic respiratory failure with hypoxia Status: Acute Assessment and Plan: The patient presented to the ED from dialysis for evaluation of a low hemoglobin but enroute to the hospital, she developed SOB and hypoxia. No ABG. CXR showing pulmonary edema with CMG, and small bilateral pleural effusions and bibasilar opacities. WBC was normal. Hgb 6.7. MRSA nasal swab negative. BCx NGTD. Abx held. [place] respiratory failure related to anemia and probably high output failure. Patient transfused and fluid status better controlled with HD. Patient now only has BiPAP at night and down to 2L (baseline) during the day. Control fluid status with HD. (2) Acute on chronic anemia: Code(s): D64.9 - Anemia, unspecified Status: Acute Assessment and Plan: Hgb 6.7 on admission. Iron and TSat normal in March. B12 low end of normal with markedly elevated MMA (6). EGD in Apr 2023 showing esophageal ring, hiatal hernia, gastric polyp and duodenal AVM. Colonoscopy March 2022 showing diverticulosis. No anemia lab work up done here. She received 2U PRBC. Hgb up to 8-9 range. Suspect patient acute chronic anemia. Acute blood loss could be related to occult GI bleed from AVM. B12 replacement ordered. Monitor and transfuse as needed (3) Volume overload: Code(s): E87.70 - Fluid overload, unspecified Status: Acute Assessment and Plan: As above (4) End-stage renal disease on hemodialysis: Code(s): N18.6 - End stage renal disease; Z99.2 - Dependence on renal dialysis Status: Chronic Assessment and Plan: Patient with ESRD being followed by nephrology here. HD yesterday Continue HD per their recommendation. (5) Diet-controlled type 2 diabetes mellitus: Code(s): E11.9 - Type 2 diabetes mellitus without complications Status: Acute Assessment and Plan: The patient's blood glucose was reviewed on 2/3 Glucose remains well controlled. Continue to monitor (6) Hypertension: Code(s): I10 - Essential (primary) hypertension Status: Chronic Assessment and Plan: Patient's blood pressure was reviewed on 2/3 Blood pressure remains well controlled but with low diastolic BP. Norvasc continued but clonidine and spironolactone held Will monitor closely. (7) Hypothyroidism: Code(s): E03.9 - Hypothyroidism, unspecified Status: Acute Assessment and Plan: TSH normal in August. Continue levothyroxine. Plan DVT prophylaxis - SCDs Code status - DNR Disposition - okay to discharge if facility arranged Subjective Date/time seen: 07/07/23 16:30 Interval history: 88yo female with chronic respiratory failure, ESRD, DM and HTN here for low Hgb. Patient alert but confused so hx unreliable. Patient able to tolerate the BiPAP overnight. Review of Systems Review of Systems: ROS unobtainable: Yes unobtainable due to mental status Exam Narrative: AF 97.7 133/43 70 20 100% 2L HFNC Gen - NARD Chest - scattered faint rhonchi anteriorly. nml RR CV - RRR S1/S2 Abd - Soft, NT/ND, Positive BS Ext - thrill and bruit LUE. no pedal edema Neuro - Alert but confused. Skin - Warm and dry. left forehead dried eschar Objective Data Vital Signs Vital Signs: Vital Signs - 24 hr 07/06/23 18:27 07/06/23 20:00 07/06/23 20:00 Temperature 96.7 F L Pulse Rate 62 Respiratory Rate 18 Blood Pressure 126/35 L Pulse Oximetry 92 95 95 Oxygen Delivery Nasal Cannula Nasal Cannula Oxygen Flow Rate 5 5 Fraction of Inspired Oxygen 07/07/23 00:00 07/07/23 00:06 07/07/23 03:30 Temperature 97.8 F Pulse Rate 54 L 63 60 Respiratory Rate 22 H 22 H 24 H Blood Pressure 125/33 L Pulse Oximetry 97 97 97 Oxygen Delivery BiPAP BiPAP Oxygen Flow Rate
--- NOTE | 2023-07-07 17:04 | PM.DS ---
DS: Admitting Diagnosis Discharge Date 07/07/23 Admitting Diagnosis Low hemoglobin and hypoxia DS: Discharge Diagnosis Discharge Diagnosis (1) Acute on chronic respiratory failure with hypoxia: Code(s): J96.21 - Acute and chronic respiratory failure with hypoxia Status: Acute (2) Acute on chronic anemia: Code(s): D64.9 - Anemia, unspecified Status: Acute (3) Volume overload: Code(s): E87.70 - Fluid overload, unspecified Status: Acute (4) End-stage renal disease on hemodialysis: Code(s): N18.6 - End stage renal disease; Z99.2 - Dependence on renal dialysis Status: Chronic (5) Diet-controlled type 2 diabetes mellitus: Code(s): E11.9 - Type 2 diabetes mellitus without complications Status: Acute (6) Hypertension: Code(s): I10 - Essential (primary) hypertension Status: Chronic (7) Hypothyroidism: Code(s): E03.9 - Hypothyroidism, unspecified Status: Acute DS: Summary Hospital Course Reason for hospitalization: 88yo female with chronic respiratory failure, ESRD, DM and HTN here for low Hgb and hypoxia. Please see H&P for details. Hospital Course: The patient presented to the ED from dialysis for evaluation of a low hemoglobin but enroute to the hospital, she developed SOB and hypoxia. No ABG. CXR showing pulmonary edema with CMG, and small bilateral pleural effusions and bibasilar opacities. WBC was normal. Hgb 6.7. MRSA nasal swab negative. BCx NGTD. Abx were held. [place] respiratory failure related to anemia and probably high output failure. Patient transfused and fluid status better controlled with HD. Patient now only has BiPAP at night and down to 2L (baseline) during the day. Iron and TSat normal in March. B12 low end of normal with markedly elevated MMA (6). EGD in Apr 2023 showing esophageal ring, hiatal hernia, gastric polyp and duodenal AVM. Colonoscopy March 2022 showing diverticulosis. Son was told patient probably has distal AVMs that can not be reached. She received 2U PRBC. Hgb up to 8-9 range and stable. Suspect patient acute chronic anemia.? Acute blood loss could be related to occult GI bleed from AVM. B12 replacement ordered. Patient with ESRD being followed by nephrology here. She underwent HD here per nephrology recommendation. Patient's blood pressure was monitored closely, Blood pressure remained well controlled but with low diastolic BP.?We held her Norvasc, clonidine and spironolactone. Patient did well and was able to weaned down to her 2L O2 at baseline. Spoke with son about hospice and he stated that they try to arrange this before but that she does not qualify yet. He was agreeable to re-consult hospice at the facility. She overall did well and was able to be discharged on 07/07/23 Status at Discharge Cognitive/behavioral status at discharge: stable Time Spent with Patient Time attestation: Total time spent providing and/or coordinating discharge services: 35 minutes Time spent: Greater than 30 minutes Exam Narrative: AF 97.7 133/43 70 20 100% 2L HFNC Gen - NARD Chest - scattered faint rhonchi anteriorly. nml RR CV - RRR S1/S2 Abd - Soft, NT/ND, Positive BS Ext - thrill and bruit LUE. no pedal edema Neuro - Alert but confused. Skin - Warm and dry. left forehead dried eschar DS: Data Data Completed and Pending Labs on day of discharge: Labs from last 24 hours 07/07/23 07/07/23 07/07/23 16:14 11:08 08:14 WBC RBC Hgb Hct MCV MCH MCHC RDW Plt Count MPV Sodium Potassium Chloride Carbon Dioxide Anion Gap BUN Creatinine Estim Creat Clear Calc Estimated GFR Glucose POC Capillary Glucose 97 138 H 74 Calcium Phosphorus Albumin 07/07/23 07/07/23 07/06/23 07:55 06:30 20:15 WBC 5.7 RBC 3.54 L Hgb 9.6 L Hct 34.2 L MCV 96.6 MCH 27.1 MCHC 28.1 L RDW 15.9 H Plt C
[2023-07-07] MEDS: ACETAMINOPHEN 325 MG TABLET 650 MG PO (19:51)
[2023-07-07] MEDS: ALPRAZolam (*CRX) 0.5 MG TABLET PO (19:52)
[2023-07-07] MEDS: ATORVASTATIN 20 MG TABLET PO (19:52)
[2023-07-07 20:17] LABS: Glucose Point of Care 176 mg/dl (65-105)
== END 2023-07-07 20:20 | DRG 811 ==
LOC: ANHED 15:51 → ANH3MEDSUR 16:39 → ANHIMU 17:47 → ANH3MEDSUR 07-06 18:20
PROVIDERS: Internal Medicine Nephrology; Physician Assistant; Admitting Provider General Practice; Emergency Provider Emergency Medicine; Visit Provider Internal Medicine
DX: D62 Acute posthemorrhagic anemia (principal); J96.21 Acute and chronic respiratory failure with hypoxia; N18.6 End stage renal disease; K55.21 Angiodysplasia of colon with hemorrhage; I13.2 Hypertensive heart and chronic kidney disease with heart failure and with stage 5 chronic kidney disease, or end stage renal disease; E87.70 Fluid overload, unspecified; I50.9 Heart failure, unspecified; E11.22 Type 2 diabetes mellitus with diabetic chronic kidney disease; E03.9 Hypothyroidism, unspecified; J44.9 Chronic obstructive pulmonary disease, unspecified; F03.90 Unspecified dementia, unspecified severity, without behavioral disturbance, psychotic disturbance, mood disturbance, and anxiety; D63.1 Anemia in chronic kidney disease; K21.9 Gastro-esophageal reflux disease without esophagitis; Z66 Do not resuscitate; H40.9 Unspecified glaucoma; E78.5 Hyperlipidemia, unspecified; M19.90 Unspecified osteoarthritis, unspecified site; N25.0 Renal osteodystrophy; Z99.2 Dependence on renal dialysis; Z87.891 Personal history of nicotine dependence; Z86.16 Personal history of COVID-19; Z99.81 Dependence on supplemental oxygen
CPT/HCPCS: 36415; 36430; 71045; 80048; 80053; 80069; 82948; 83735; 84100; 84439; 84443; 84480; 85025; 85027; 85610; 85730; 86706; 86850; 86900; 86901; 86923; 87040; 87340; 87641; 94002; 94003; 96374; 97161; 97165; 99291; A9270; G0257; G0378; J1940; J3420; J7030; P9016; P9047; Q5105

== ENCOUNTER 2023-11-16 17:07 | Observation (INO) | payer MEDICARE, MEDICAID, SELFPAY ==
--- NOTE | ~2023-11-16 | XR_ITS ---
XR knee RT min 4V Ordering provider: Yamel Levin PA-C History: . knee pain, fall . Comparison: None. FINDINGS: BONES: No acute fracture or dislocation. Osteopenia of the bones. JOINT SPACES: Mild osteoarthritic changes. SOFT TISSUES: Normal. IMPRESSION: No acute osseous abnormality right knee. Reviewed, dictated and finalized at location A.
--- NOTE | ~2023-11-16 | XR_ITS ---
XR hip RT 2V w AP pelvis Ordering provider: Yamel Levin PA-C History: . right hip pain, fall . Comparison: July 21, 2022 FINDINGS: BONES: No acute fracture or dislocation. Fixation of the right femoral neck by plate and screws is no ben. HIP JOINT SPACES: Severe left hip osteoarthritic changes. SACROILIAC JOINT SPACES/LUMBAR SPINE: The sacroiliac joint spaces are normal. Mild degenerative alejandra es of the visualized lower lumbar spine. PUBIC SYMPHYSIS: Pubic symphysitis. SOFT TISSUES: Normal. IMPRESSION: No acute osseous abnormality pelvis and right hip. Reviewed, dictated and finalized at location A.
--- NOTE | ~2023-11-16 | XR_ITS ---
XR chest 1V Ordering provider: Yamel Levin PA-C History: 88 years Female with . fall . Comparison: July 04, 2023 FINDINGS: MEDIASTINUM: The cardiac silhouette is not enlarged. Prominent pacheco. Right paraspinal calcification s een which is most likely from the aorta. LUNGS: No infiltrates, effusions or pneumothorax. Prominent markings bilaterally. OTHER: No free air under the diaphragm. Degenerative the spine. IMPRESSION: No acute cardiopulmonary pathology with no change from previous examination. Reviewed, dictated and finalized at location A.
--- NOTE | ~2023-11-16 | XR_ITS ---
XR chest 1V portable Ordering provider: Yamel Levin PA-C History: 88 years Female with . SOB . Comparison: November 16, 2023 FINDINGS: MEDIASTINUM: The cardiac silhouette is not enlarged. LUNGS: No effusions or pneumothorax. Prominent markings bilaterally. Interstitial changes are noted s uggestive of fibrotic changes. Pneumonitis cannot be excluded. OTHER: No free air under the diaphragm. Degenerative the spine. IMPRESSION: Prominent markings bilaterally. Interstitial changes are noted suggestive of fibrotic changes. Pneumo nitis cannot be excluded. Reviewed, dictated and finalized at location A. IMPRESSION: Prominent markings bilaterally. Interstitial changes are noted suggestive of fi brotic changes. Pneumonitis cannot be excluded.
--- NOTE | ~2023-11-16 | CT_ITS ---
CT lumbar spine wo con Ordering provider: Yamel Levin PA-C History: 88 years Female with . low back pain, fall . Comparison: None. Technique: CT lumbar spine without contrast. Radiation reduction technique utilized. DLP 1023.1mGy. FINDINGS: VERTEBRAE: Highly suggestive compression fracture of the superior endplate of L3. Follow-up advised. Minimal subluxation at the level of L3-L4. No other fractures seen. Osteopenia of the bones. . DISC SPACES: Narrowing of the disc L2-L3, L3-L4 and L5-S1. Multilevel facet joint disease. T12-L1: No stenosis. L1-L2: No stenosis. L2-L3: No stenosis. L3-L4: Mild stenosis caused by osteophytes. Right narrowing of the foramina with root compression. L4-L5: Diffuse disc bulge with bilateral narrowing of the foramina and the root compression. Mild antoine nosis. L5-S1: No stenosis. PARASPINOUS SOFT TISSUES: Mild atheromatous disease of the abdominal aorta. Bilateral sacroiliacs. IMPRESSION: Possible compression fracture of the superior endplate of L3. Multilevel degenerative disc disease with variable degrees of intervertebral foraminal narrowing. Reviewed, dictated and finalized at location A. IMPRESSION: Possible compression fracture of the superior endplate of L3. Multilevel degenerative disc disease with variable degrees of intervertebral fo raminal narrowing.
--- NOTE | ~2023-11-16 | CT_ITS ---
CT brain wo con Ordering provider: Yamel Levin PA-C History: 88 years Female with . fall . Comparison: June 07, 2023 Technique: CT of the head without contrast. Radiation reduction technique utilized. DLP 605.3mGy. FINDINGS: BRAIN PARENCHYMA AND CSF SPACES: Hypodensity in the left insula which may a chronic infarct. Unchange d from previous examination. No midline shift, mass effect or hemorrhage. The brain parenchyma and C SF spaces are otherwise normal. VISUALIZED PARANASAL SINUSES: Right sphenoid sinus disease. MASTOIDS: Well aerated. BONES: The bones appear intact. SOFT TISSUES: Visualized nasopharynx is normal. Superficial soft tissues are normal. IMPRESSION: No acute intracranial findings. Right sphenoid sinusitis. Reviewed, dictated and finalized at location A.
--- NOTE | ~2023-11-16 | CT_ITS ---
CT cervical spine wo con Ordering provider: Yamel Levin PA-C History: . fall . Comparison: June 07, 2023 Technique: CT of the cervical spine was performed without contrast. Sagittal and coronal reformatted images were also obtained and reviewed. Radiation reduction technique utilized. DLP 174.3 mGy. FINDINGS: VERTEBRAE: Healing fracture in C1 is noted. Minimal subluxation at the atlantodental occipital joint with no change from previous examination. Loss of bone is seen in the posterior arch of C1 inferiorly and the superior aspect of the posterior arch of C2 which is most likely post frictional change. The occipital condyles are intact. DISC SPACES: Narrowing of the disc C5-C6 and C6-C7. Multilevel facet degenerative disease. Multilevel uncovertebral joint osteoarthritic changes.Multilevel intervertebral foraminal narrowing. PARASPINOUS SOFT TISSUES: Vascular calcifications. IMPRESSION: No definite acute osseous abnormality cervical spine. Healing fracture of C1. Minimal subluxation of the occipital atlantoaxial joint unchanged from previous examination. Reviewed, dictated and finalized at location A. IMPRESSION: No definite acute osseous abnormality cervical spine. Healing fracture of C1. M inimal subluxation of the occipital atlantoaxial joint unchanged from previous examination.
[2023-11-16 17:10] VITALS: BP 159/46; PULSE 73; RESP 19; TEMP 36.7; O2SAT 98
--- NOTE | 2023-11-16 17:29 | ECG_ITS ---
Test Date: 2023-11-16 18:36:20 Measurements Intervals [place] Rate: 74 P: 261 CO: 108 QRS: -37 QRSD: 136 T: 110 QT: 429 QTc: 478 Interpretive Statements sinus rhythm MARKED LEFT AXIS DEVIATION [QRS AXIS < -30] INTRAVENTRICULAR CONDUCTION DELAY [130+ ms QRS DURATION] LEFT VENTRICULAR HYPERTROPHY AND ST-T CHANGE [VOLTAGE CRITERIA PLUS ST/T ABNORMALITY] POSSIBLE SEPTAL MYOCARDIAL INFARCTION , PROBABLY OLD [30 ms Q WAVE IN V1/V2] No previous ECG available for comparison Electronically Signed On 11-18-2023 12:51:24 CDT by Drake Khan M.D.
--- NOTE | 2023-11-16 18:04 | ED.FALL ---
HPI - Fall General Chief Complaint: Fall Stated Complaint: fall Time Seen by Provider: 11/16/23 17:10 Source: patient Mode of arrival: EMS Limitations: dementia History of Present Illness HPI Narrative: This is an 88-year-old female that presents to the emergency department after a fall today. Reportedly patient fell transferring from her bed to a wheelchair at facility. Patient hit her head. She does not believe she lost consciousness. Reports pain all over. She is not on anticoagulation. Denies chest pain, shortness of breath, or vomiting. Related Data Home Medications Medication Instructions Recorded Confirmed atorvastatin 20 mg tablet 20 mg PO HS 06/22/21 11/16/23 latanoprost 0.005 % eye drops 1 drp EACH EYE HS 06/22/21 11/16/23 spironolactone 25 mg tablet 25 mg PO DAILY 06/22/21 11/16/23 acetaminophen 650 mg tablet 650 mg PO Q6H PRN Pain (Scale 07/21/22 11/16/23 Score 1-3) buspirone 7.5 mg tablet 5 mg PO BID 07/21/22 11/16/23 sevelamer carbonate 0.8 gram oral 0.8 g PO TID 01/19/23 11/16/23 powder packet (Renvela) escitalopram oxalate 10 mg tablet 10 mg PO DAILY 04/10/23 11/16/23 levothyroxine 125 mcg tablet 175 mcg PO DAILY@0630 04/30/23 11/16/23 (Synthroid) docusate sodium 100 mg capsule 100 mg PO BID 07/04/23 11/16/23 ferrous sulfate 325 mg (65 mg 324 mg PO BID 07/04/23 11/16/23 iron) tablet meclizine 25 mg tablet 25 mg PO QID PRN Dizziness Or 11/16/23 11/16/23 Vertigo melatonin 3 mg tablet 3 mg PO HS 11/16/23 11/16/23 menthol-zinc oxide 0.2 %-20 % 1 applic topical BID PRN Skin 11/16/23 11/16/23 topical paste (Remedy Calazime Irritation Protect Paste) pantoprazole 40 mg tablet,delayed 40 mg PO DAILY 11/16/23 11/17/23 release amlodipine 5 mg tablet (Norvasc) 10 mg PO DAILY 06/15/24 06/14/24 cyanocobalamin (vitamin B-12) 1,000 mcg PO DAILY 11/17/23 11/16/23 1,000 mcg tablet (Vitamin B-12) lisinopril 20 mg tablet 20 mg PO DAILY 11/17/23 11/16/23 Allergies Allergy/AdvReac Type Severity Reaction Status Date / Time adhesive tape Allergy Unknown PLASTIC Verified 11/16/23 17:14 TAPE hydrochlorothiazide Allergy Unknown Verified 11/16/23 17:14 latex Allergy Rash Verified 11/16/23 17:14 Review of Systems Review of Systems: ROS unobtainable: Yes unobtainable due to medical condition PMFSH Past Medical History Medical History Anxiety Chronic anemia Chronic obstructive pulmonary disease Chronic respiratory failure with hypoxia On 2 to 3 liters nasal cannula. COVID-19 (06/2021) Diastolic dysfunction Diet-controlled type 2 diabetes mellitus End-stage renal disease on hemodialysis Erythropoietin deficiency anemia Gastroesophageal reflux disease Glaucoma Hyperlipidemia Hypertension Hypothyroidism [place] Osteoarthritis Pulmonary hypertension Renal osteodystrophy Vitamin D deficiency Surgical History Surgical History Status post creation of arteriovenous fistula Left upper extremity. Family History Family History Other Diabetes mellitus Hypertension Social History Social History Social History: Surrogate decision maker: Amy Contreras, son. Code status: Do not resuscitate. Smoking packs per day: 1 Smoking cigarettes per day: 20.0 Years smoked: 34 Smoking pack-years: 34.00 Smoking status: Former smoker Second hand tobacco smoke exposure: No Alcohol intake: never Substance use: never Substance use type: does not use Lack of Transportation: No Lack of Food: Never True Current Housing: I Have Housing Concerned About Future Housing: No Difficulty Paying Gas/Electric Bills: No Difficulty Paying for Meds: No Currently Unemployed: No Education: Grade School Difficulty w/ Childcare or Family Care: No Addit
[2023-11-16 18:46] LABS: Basophils Percent Auto 0.6 % (0.2-1.2); Eosinophils Absolute Auto 0.5 K/mm3 (0-0.3); Eosinophils Percent Auto 7.2 % (0-4.4); Hemoglobin 11.8 g/dL (12.0-15.0); Immature Granulocyte Absolute 0.12 K/mm3 (0.00-0.031); Immature Granulocyte Percent A 1.8 % (0-0.5); Lymphocytes Absolute Auto 0.57 K/mm3 (0.9-3.2); Lymphocytes Percent Auto 8.3 % (18.3-44.2); Mean Corpuscular HGB Conc 30.3 g/dl (32-36); Mean Corpuscular Hemoglobin 28.1 pg (26-34); Mean Corpuscular Volume 92.9 fl (80-100); Mean Platelet Volume 10.3 fl (7.4-10.4); Monocytes Absolute Auto 0.6 K/mm3 (0.1-0.6); Monocytes Percent Auto 9.4 % (2.6-8.5); Neutrophils Percent Auto 72.7 % (45.5-73.1); Platelet Count Result 248 k/mm3 (150-375); Red Cell Distribution Width 18.6 % (11.5-14.5); White Blood Count 6.8 K/mm3 (4.5-10.0)
[2023-11-16 19:02] LABS: Alanine Aminotransferase 9 U/L (6-35); Albumin Level 4.2 g/dL (3.5-5.1); Alkaline Phosphatase 106 U/L (38-126); Anion Gap 9 mmol/L (4-12); Aspartate Amino Transferase 20 U/L (14-36); Bilirubin,Total 0.4 mg/dL (0.2-1.3); Blood Urea Nitrogen 15 mg/dL (7-17); Calcium 8.6 mg/dL (8.4-10.2); Carbon Dioxide 36 mmol/L (22-30); Chloride 96 mmol/L (98-107); Estimated CRCL calculation 13 ml/min; Estimated Glomerular Filt Rate 15; Glucose 101 mg/dL (65-110); Potassium 3.6 mmol/L (3.4-5.0); Sodium 141 mmol/L (137-145)
[2023-11-16 19:03] LABS: Alveolar/Arterial O2 Gradient 106.3 mmHg; Carboxyhemoglobin 0.8 % THb (0-2.0); Fractional Inspired Oxygen 32 %; Methemoglobin ABG 0.3 %THb (0-1.5); Oxygen Content ABG 15.5 %vol (16.0-22.0); Oxygen Saturation ABG 90.8 % (95.0-100.0); Oxyhemoglobin 88.6 % THb (90.0-100.0); PCO2 ABG 53.3 mmHg (35.0-45.0); PO2 ABG 59.5 mmHg (80.0-100.0); PO2 FiO2 Ratio Arterial Blood 1.86 %; Reduced Hemoglobin 10.3 %THb (0-5.0); Total Hemoglobin 12.4 g/dL (12.0-18.0); pH ABG 7.422 (7.350-7.450)
[2023-11-16 19:04] LABS: Device NASAL CANNULA; Modified Allen's Test Pass; Site Drawn RIGHT RADIAL
[2023-11-16] MEDS: FUROSEMIDE INJ 40 MG/4 ML VIAL IV PUSH (19:21)
[2023-11-16 19:33] VITALS: BP 156/46; PULSE 80; RESP 15; O2SAT 98
[2023-11-16 21:10] VITALS: PULSE 76; RESP 22; O2SAT 100
[2023-11-16] MEDS: IPRATROPIUM 0.5 MG/ALBUTEROL SULFATE 2.5 MG AMPUL.NEB 3 ML INHALATION (21:13)
[2023-11-16 21:36] VITALS: BP 152/46; PULSE 86; RESP 15; O2SAT 97
--- NOTE | 2023-11-16 21:46 | PM.IMHP ---
H&P: HPI History of Present Illness Date/Time: 11/16/23 21:46 Chief Complaint: sob Narrative: This is an 88-year-old female with past medical history significant for chronic anemia, chronic obstructive pulmonary disease, chronic respiratory failure with hypoxia, diastolic dysfunction, end-stage renal disease on hemodialysis, GERD, hyperlipidemia, hypertension. patient resides at a half-way was brought for evaluation due to a fall. while in the emergency room patient developed this respiratory distress with low pulse oxygenation requiring supplemental oxygen by nasal cannula with no improvement required BiPAP. History taking is limited due to patient's respiratory distress currently on BiPAP. CT brain wo con Ordering provider: Yamel Levin PA-C History: 88 years Female with . fall . Comparison: June 07, 2023 Technique: CT of the head without contrast. Radiation reduction technique utilized. DLP 605.3mGy. FINDINGS: BRAIN PARENCHYMA AND CSF SPACES: Hypodensity in the left insula which may a chronic infarct. Unchanged from previous examination. No midline shift, mass effect or hemorrhage. The brain parenchyma and CSF spaces are otherwise normal. VISUALIZED PARANASAL SINUSES: Right sphenoid sinus disease. MASTOIDS: Well aerated. BONES: The bones appear intact. SOFT TISSUES: Visualized nasopharynx is normal. Superficial soft tissues are normal. IMPRESSION: No acute intracranial findings. Right sphenoid sinusitis. XR chest 1V portable Ordering provider: Yamel Levin PA-C History: 88 years Female with . SOB . Comparison: November 16, 2023 FINDINGS: MEDIASTINUM: The cardiac silhouette is not enlarged. LUNGS: No effusions or pneumothorax. Prominent markings bilaterally. Interstitial changes are noted suggestive of fibrotic changes. Pneumonitis cannot be excluded. OTHER: No free air under the diaphragm. Degenerative the spine. IMPRESSION: Prominent markings bilaterally. Interstitial changes are noted suggestive of fibrotic changes. Pneumonitis cannot be excluded. Review of Systems Review of Systems: ROS unobtainable: Yes unobtainable due to medical condition ( respiratory distress on BiPAP) [facility] Past Medical History Medical History Anxiety Chronic anemia Chronic obstructive pulmonary disease Chronic respiratory failure with hypoxia On 2 to 3 liters nasal cannula. COVID-19 (06/2021) Diastolic dysfunction Diet-controlled type 2 diabetes mellitus End-stage renal disease on hemodialysis Erythropoietin deficiency anemia Gastroesophageal reflux disease Glaucoma Hyperlipidemia Hypertension Hypothyroidism Melena Osteoarthritis Pulmonary hypertension Renal osteodystrophy Vitamin D deficiency Surgical History Surgical History Status post creation of arteriovenous fistula Left upper extremity. Family History Family History Other Diabetes mellitus Hypertension Social History Social History Social History: Surrogate decision maker: Amy Contreras, roman. Code status: Do not resuscitate. 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
[2023-11-16 23:20] VITALS: PULSE 87; RESP 29; O2SAT 95
[2023-11-16 23:30] VITALS: BP 168/48; PULSE 87; RESP 30; TEMP 36.3; O2SAT 97
[2023-11-17] VITALS (12 sets, daily range): BP systolic 157–165; BP diastolic 44–45; PULSE 68–90; RESP 14–25; TEMP 36.1–36.7; O2SAT 95–100; BMI 22.3
--- NOTE | 2023-11-17 00:04 | ADMGEN ---
This patient, Sofía Contreras, was admitted to IMU Room 201-01. Patient/family oriented to hospital policies and general routines including ID bracelet, bed and alarms, visiting hours, pain management, procedures, bathroom and other care routines, personal items, smoking policy, room service/diet, and visiting hours. Information on how to activate the Rapid Response Team has been discussed. Patient/Family are encouraged to report perceived risks to care and to ask questions if they do not understand what they are told or what they should do.
[2023-11-17] MEDS: AZITHROMYCIN 500 MG/NS 250 ML 500 MG/250 ML BAG 250 MG IVPB (00:09)
[2023-11-17] MEDS: cefTRIAXone 2 GM/NS 100 ML 2 GM/100 ML BAG IVPB (00:09)
[2023-11-17] MEDS: methylPREDNISolone SOD SUCC 125 MG VIAL 60 MG IV PUSH ×2 (00:10→06:04)
[2023-11-17] MEDS: LEVOTHYROXINE SODIUM 75 MCG TABLET PO (06:04)
[2023-11-17] MEDS: LEVOTHYROXINE SODIUM 100 MCG TABLET PO (06:04)
--- NOTE | 2023-11-17 09:07 | PM.IMPN ---
Progress Note: A&P Assessment and Plan (1) Acute and chronic respiratory failure: Code(s): J96.20 - Acute and chronic respiratory failure, unspecified whether with hypoxia or hypercapnia Status: Acute Assessment and Plan: admit to IMU currently on continuous BiPAP supportive care (2) Acute exacerbation of chronic obstructive pulmonary disease: Code(s): J44.1 - Chronic obstructive pulmonary disease with (acute) exacerbation Status: Acute Assessment and Plan: breathing treatments systemic steroids Rocephin and Zithromax (3) ESRD (end stage renal disease) on dialysis: Code(s): N18.6 - End stage renal disease; Z99.2 - Dependence on renal dialysis Status: Acute Assessment and Plan: continue hemodialysis (4) Fall: Code(s): W19.XXXA - Unspecified fall, initial encounter Status: Acute Plan Feeding: Analgesia: Thromboembolic prophylaxis: Ulcer prophylaxis: Glycemic control: Bowel regimen: Lines: Antibiotics: Disposition: Subjective Date/time seen: 11/17/23 09:07 Interval history: This is an 88-year-old female with end-stage renal disease on hemodialysis, chronic respiratory failure on 2 to 3 L nasal cannula, chronic obstructive pulmonary disease, pulmonary hypertension, diastolic dysfunction, hypertension, chronic anemia, diet-controlled diabetes, and dementia who presented to the emergency department after suffering a fall at her half-way. She reported falling when transferring from her bed to her wheelchair, striking her head. In the ED she became hypoxic requiring BiPAP. She was admitted in this setting to IMU for further workup of acute on chronic hypoxic respiratory failure. 11/16: She is seen on 2 L nc which she says is her baseline oxygen. She denies dyspnea. She does say that she fell when trying to transfer to her wheelchair and hit her head. She is not sure if she had LOC. It is unclear why she Review of Systems Review of Systems: All systems reviewed & are unremarkable except as noted in HPI and below Exam Narrative: General: well appearing, appears stated age. HEENT: normocephalic, atraumatic. Mucous membranes moist. EOMI, PERRLA, bilateral sclera anicteric, no conjunctival injection. Neck supple without JVD, lymphadenopathy, or bruit. Respiratory: clear to auscultation bilaterally. No rales/rhonic/wheezes. Cardiovascular: Regular rate and rhythm, normal S1-S2 upon auscultation. No murmurs, rubs, or clicks. PMI is nondisplaced, capillary refill less than 3 second. Abdomen: Soft, round, no pulsatile masses, nondistended and nontender. No rebound, no guarding. No CVA tenderness, no hepatosplenomegaly. Bowel sounds present to all four quadrants. No high pitch or tinkling sounds, resonant to percussion. Extremities: No cyanosis, clubbing, or edema present. Pulses are palpable 2/2. Active ROM to all four extremities. Neuro: Alert and orientated x 4. PERRLA. Cranial nerves 2-12 intact without focal deficit. Skin: Warm, dry, and intact, without rash, erythema, or lesion. Lines: Incisions: Psych: pleasant, cooperative, normal speech, normal affect, no hallucinations, no dysarthria Objective Data Vital Signs Vital Signs: Vital Signs - 24 hr 11/16/23 17:10 11/16/23 19:33 11/16/23 21:36 Temperature 98.1 F Pulse Rate 73 80 86 Respiratory Rate 19 15 15 Blood Pressure 159/46 H 156/46 H 152/46 H Pulse Oximetry 98 98 97 Oxygen Delivery Room Air 11/16/23 21:10 11/16/23 23:20 11/16/23 23:30 Temperature 97.4 F L Pulse Rate 76 87 87 Respiratory Rate 22 H 29 H 30 H Blood Pressure 168/48 H Pulse Oximetry 100 95 97 Oxygen Delivery BiPAP BiPAP 11/17/23 00:00 11/17/23 00:00 11/17/23 02:00 Temperature Pulse Rate 77 73 Respiratory Rate Blood Pressure Pulse Oximetry 97 Oxygen Delivery BiPAP 11/17/23 03:54 11/17/23 02:15 11/17/23 04:00 Temperature 97.0 F L Pulse Rate 71 74 Respira
[2023-11-17 09:22] LABS: Basophils Percent Auto 0.2 % (0.2-1.2); Hematocrit 40.5 % (37.0-47.0); Immature Granulocyte Absolute 0.04 K/mm3 (0.00-0.031); Immature Granulocyte Percent A 0.8 % (0-0.5); Lymphocytes Absolute Auto 0.28 K/mm3 (0.9-3.2); Lymphocytes Percent Auto 5.3 % (18.3-44.2); Mean Corpuscular HGB Conc 29.6 g/dl (32-36); Mean Corpuscular Hemoglobin 28.2 pg (26-34); Mean Corpuscular Volume 95.1 fl (80-100); Mean Platelet Volume 11.5 fl (7.4-10.4); Monocytes Percent Auto 0.8 % (2.6-8.5); Neutrophils Absolute Auto 4.9 K/mm3 (1.3-6.7); Neutrophils Percent Auto 92.9 % (45.5-73.1); Platelet Count Result 244 k/mm3 (150-375); Red Blood Count 4.26 M/mm3 (4.2-5.4); Red Cell Distribution Width 18.7 % (11.5-14.5); White Blood Count 5.3 K/mm3 (4.5-10.0)
[2023-11-17 09:25] LABS: Alanine Aminotransferase 12 U/L (6-35); Albumin Level 4.3 g/dL (3.5-5.1); Alkaline Phosphatase 95 U/L (38-126); Anion Gap 11 mmol/L (4-12); Aspartate Amino Transferase 21 U/L (14-36); Bilirubin,Total 0.5 mg/dL (0.2-1.3); Blood Urea Nitrogen 24 mg/dL (7-17); Calcium 8.8 mg/dL (8.4-10.2); Carbon Dioxide 33 mmol/L (22-30); Chloride 97 mmol/L (98-107); Estimated CRCL calculation 9 ml/min; Estimated Glomerular Filt Rate 10; Glucose 146 mg/dL (65-110); Magnesium 2.2 mg/dL (1.6-2.3); Potassium 3.9 mmol/L (3.4-5.0); Sodium 141 mmol/L (137-145)
[2023-11-17 09:33] LABS: NT Pro B Type Natriuretic Pept 9440 pg/mL (19.9-100)
[2023-11-17] MEDS: amLODIPine BESYLATE 5 MG TABLET 10 MG PO (09:44)
[2023-11-17] MEDS: SEVELAMER CARBONATE 800 MG TABLET PO (09:44)
[2023-11-17] MEDS: PANTOPRAZOLE 40 MG TABLET PO (09:45)
[2023-11-17] MEDS: SPIRONOLACTONE 25 MG TABLET PO (09:45)
[2023-11-17] MEDS: CYANOCOBALAMIN 1,000 MCG TABLET 1000 MCG PO (09:45)
[2023-11-17] MEDS: FERROUS SULFATE 325 MG TABLET DR BY MOUTH (09:45)
[2023-11-17] MEDS: ESCITALOPRAM OXALATE 10 MG TABLET PO (09:45)
[2023-11-17] MEDS: DOCUSATE SODIUM 100 MG CAPSULE PO (09:45)
[2023-11-17] MEDS: lisinopriL 20 MG TABLET PO (09:45)
[2023-11-17 09:54] LABS: Hepatitis B Surface Antigen Negative (Negative)
[2023-11-17 09:55] LABS: Hypochromasia 1+; Platelet Estimate Adequate (Adequate); Schistocytes None Seen
[2023-11-17 10:34] LABS: Influenza A QL RT-PCR Negative (Negative); Influenza B QL RT-PCR Negative (Negative); RSV RNA, RT-PCR Negative (Negative); SARS-CoV-2 RNA PCR Negative (Negative)
[2023-11-17] MEDS: busPIRone HCL 5 MG TABLET PO (10:40)
[2023-11-17 11:09] LABS: MRSA (PCR) NOT DETECTED (NOT DETECTE)
--- NOTE | 2023-11-18 15:53 | PM.DS ---
DS: Admitting Diagnosis Discharge Date 11/17/23 Admitting Diagnosis Fall DS: Discharge Diagnosis Discharge Diagnosis (1) Acute and chronic respiratory failure: Code(s): J96.20 - Acute and chronic respiratory failure, unspecified whether with hypoxia or hypercapnia Status: Acute Assessment and Plan: admit to IMU currently on continuous BiPAP supportive care (2) Acute exacerbation of chronic obstructive pulmonary disease: Code(s): J44.1 - Chronic obstructive pulmonary disease with (acute) exacerbation Status: Acute Assessment and Plan: breathing treatments systemic steroids Rocephin and Zithromax (3) ESRD (end stage renal disease) on dialysis: Code(s): N18.6 - End stage renal disease; Z99.2 - Dependence on renal dialysis Status: Acute Assessment and Plan: continue hemodialysis (4) Fall: Code(s): W19.XXXA - Unspecified fall, initial encounter Status: Acute Plan Feeding: Analgesia: Thromboembolic prophylaxis: Ulcer prophylaxis: Glycemic control: Bowel regimen: Lines: Antibiotics: Disposition: DS: Summary Hospital Course Hospital Course: This is an 88-year-old female with a past medical history of end-stage renal disease, hypertension, hyperlipidemia, depression, anxiety, chronic anemia, chronic respiratory failure with hypoxia on 2 L nasal cannula baseline, and CHF who presented to the emergency room after she fell at her intermediate transferring from bed to wheelchair. The patient hit her head but did not lose consciousness. She was seen in the ER and received raymundo scan right knee x-ray which was negative, right hip and pelvis x-ray negative, chest x-ray negative, CT cervical spine showed healing fracture of C1, and lumbar spine CT showed compression fracture of L3. ER provider spoke with Dr. Mcleod who reviewed patient's imaging and did not believe there is any acute fracture in the cervical spine. When the patient was returning from CT scan she apparently had hypoxia and was placed on BiPAP for ABG of pH-some 0.42, pCO2 53.3, PO2 59.5, HC03 34. Patient was started on treatment for COPD exacerbation with antibiotics and steroids. White count was 6.8, hemoglobin 11.8, and neutrophils 72.7. When I saw her this morning she is on her 2 L nasal cannula satting greater than 95% in no acute distress. She denies shortness of breath, increased sputum production, fever, chills, or cough. Her blood pressures are stable and labs have been reviewed. She does not have a recent to remain inpatient so I will discharge her home back to her facility at this time. She will need to resume her dialysis on Sunday. Time Spent with Patient Time attestation: Total time spent providing and/or coordinating discharge services: Sixty-three Exam Narrative: General: Appear s elderly, appears stated age. HEEN T: normocephalic, atraumatic. Mucous membranes moist. EOMI, PERRLA, bila teral sclera anict colin, no conjuncti michelle injection. Nec k supple without J VD, lymphadenopath y, or bruit. Resp iratory: clear to auscultation bilat erally. Diminishe d lung sounds. No rales/rhonic/whee zes. Cardiovascul ar: Regular rate a nd rhythm, normal S1-S2 upon auscult ation. No murmurs, rubs, or clicks. PMI is nondisplace d, capillary refil l less than [address] Abdomen: Soft , round, no pulsat ile masses, nondis tended and nontend er. No rebound, no guarding. No CVA tenderness, no hep atosplenomegaly. Bowel sounds prese nt to all four kristy drants. No high pi tch or tinkling so unds, resonant to percussion. Extre mities: No cyanosi s, clubbing, or ed gulshan present. Pulse s are palpable 2/2 . Active ROM to a ll four extremitie s. Neuro: Alert a nd orientated x 3. PERRLA. Cranial n erves 2-12 intact without focal defi cit. Skin: Warm, dry, and intact, w ithout rash, eryth gulshan, or lesion. L catherine: Incisions
== END 2023-11-17 12:05 ==
LOC: ANHED 17:37 → ANHIMU 11-17 04:49
PROVIDERS: Internal Medicine Nephrology; Nurse Practitioner Acute Care; Admitting Provider Internal Medicine; Emergency Provider Physician Assistant; PCP Internal Medicine; Visit Provider General Practice
DX: S32.030A Wedge compression fracture of third lumbar vertebra, initial encounter for closed fracture (principal); W17.89XA Other fall from one level to another, initial encounter; J96.21 Acute and chronic respiratory failure with hypoxia; J96.22 Acute and chronic respiratory failure with hypercapnia; J44.1 Chronic obstructive pulmonary disease with (acute) exacerbation; Z99.81 Dependence on supplemental oxygen; I13.11 Hypertensive heart and chronic kidney disease without heart failure, with stage 5 chronic kidney disease, or end stage renal disease; E11.22 Type 2 diabetes mellitus with diabetic chronic kidney disease; N18.6 End stage renal disease; Z99.2 Dependence on renal dialysis; J32.3 Chronic sphenoidal sinusitis; E78.5 Hyperlipidemia, unspecified; E03.9 Hypothyroidism, unspecified; I27.20 Pulmonary hypertension, unspecified; Z11.52 Encounter for screening for COVID-19; K21.9 Gastro-esophageal reflux disease without esophagitis; D63.1 Anemia in chronic kidney disease; N25.0 Renal osteodystrophy; E55.9 Vitamin D deficiency, unspecified; F41.9 Anxiety disorder, unspecified; H40.9 Unspecified glaucoma; Z87.891 Personal history of nicotine dependence; Z79.51 Long term (current) use of inhaled steroids
CPT/HCPCS: 36415; 36600; 70450; 71045; 72125; 72131; 73502; 73564; 80053; 82375; 82805; 83050; 83735; 83880; 85025; 87040; 87340; 87637; 87641; 93005; 94002; 94003; 96365; 96368; 96375; 96376; 99285; A9270; G0378; J0456; J0696; J1940; J2919

== ENCOUNTER 2024-01-25 10:13 | Inpatient (IN) | payer MEDICARE, MEDICAID, SELFPAY ==
[2024-01-25] VITALS (34 sets, daily range): BP systolic 97–162; BP diastolic 33–77; PULSE 65–86; RESP 16–20; TEMP 36.2–37; O2SAT 73–100; BMI 23.4
--- NOTE | ~2024-01-25 | CT_ITS ---
EXAMINATION: CT abdomen pelvis wo con DATE: 01/25/2024 11:40 INDICATION: Abdominal pain. Rectal bleeding. TECHNIQUE: Computed tomography (CT) of the abdomen and pelvis was performed without intravenous contr ast. Automated exposure control and iterative reconstruction technique were employed. The dose-length product was 892.86 mGy-cm. COMPARISON: CT abdomen and pelvis 01/20/23 FINDINGS: The visualized portions of the lung bases demonstrate bilateral pleural thickening. There i s a trace right pleural effusion. There is chronic widespread peripheral septal thickening in the tish gs. There are chronic peripheral airspace opacities in the lungs bilaterally, consistent with rounded atelectasis. Cardiomegaly is noted. There are coronary artery calcifications. No pericardial effusio n. There are cysts in the liver measuring up to 14 mm. The gallbladder is normal size. The spleen, pa ncreas, and adrenal glands are normal. There are widespread arterial calcifications. There is mild at rophy of the kidneys. There are cysts in the kidneys measuring up to 2.0 cm on the left. Stool disten ds the rectum. There is mild wall thickening of the rectum, consistent with stercoral colitis. There is diverticulosis of the colon without evidence of diverticulitis. The appendix is not visualized. Th ere are no pathologically enlarged lymph nodes. There is no free intraperitoneal fluid. There is subc utaneous fat stranding with a posterior predominance, likely edema. There is internal fixation of pro ximal right femur. There are healing insufficiency fractures of right superior and inferior pubic minna i and right sacral ala. There is a chronic compression fracture of L3. There are bridging endplate os teophytes at multiple levels in the spine, consistent with diffuse idiopathic skeletal hyperostosis ( DISH). There is severe lumbar spondylosis. IMPRESSION: 1. Stercoral colitis. Reviewed, dictated and finalized at location A. IMPRESSION: 1. Stercoral colitis.
--- NOTE | ~2024-01-25 | XR_ITS ---
EXAMINATION: XR chest 2V DATE: 01/25/2024 14:57 INDICATION: Hypoxia with increased supplemental oxygen requirement TECHNIQUE: frontal and lateral views of the chest were obtained. COMPARISON: Chest radiograph dated 11/16/2023 FINDINGS: Increased interstitial and airspace opacities throughout both lungs most prominent at the lateral lef t mid to lower lung zone and at the right lung base. Chronic blunting of the costophrenic angles and posterior sulci consistent with pleural parenchymal scarring and/or very small bilateral pleural effu sions. No pneumothorax. Cardiomegaly. IMPRESSION: 1. Increasing interstitial and airspace opacities throughout both lungs which represent mild to moder ate pulmonary edema and/or pneumonia. 2. Possible very small bilateral pleural effusions. 3. Cardiomegaly. Reviewed, dictated and finalized at location A. IMPRESSION: 1. Increasing interstitial and airspace opacities throughout both lungs which r epresent mild to moderate pulmonary edema and/or pneumonia. 2. Possible very small bilateral pleural effusions. 3. Cardiomegaly.
[2024-01-25 10:35] LABS: Basophils Percent Auto 0.5 % (0.2-1.2); Eosinophils Absolute Auto 0.3 K/mm3 (0-0.3); Eosinophils Percent Auto 5.7 % (0-4.4); Hematocrit 21.4 % (37.0-47.0); Immature Granulocyte Absolute 0.05 K/mm3 (0.00-0.031); Immature Granulocyte Percent A 0.9 % (0-0.5); Lymphocytes Absolute Auto 0.47 K/mm3 (0.9-3.2); Lymphocytes Percent Auto 8.1 % (18.3-44.2); Mean Corpuscular HGB Conc 28.5 g/dl (32-36); Mean Corpuscular Hemoglobin 27.4 pg (26-34); Mean Platelet Volume 10.6 fl (7.4-10.4); Monocytes Absolute Auto 0.7 K/mm3 (0.1-0.6); Monocytes Percent Auto 11.2 % (2.6-8.5); Neutrophils Absolute Auto 4.3 K/mm3 (1.3-6.7); Neutrophils Percent Auto 73.6 % (45.5-73.1); Platelet Count Result 303 k/mm3 (150-375); Red Blood Count 2.23 M/mm3 (4.2-5.4); Red Cell Distribution Width 18.8 % (11.5-14.5); White Blood Count 5.8 K/mm3 (4.5-10.0)
[2024-01-25 10:44] LABS: Hemoglobin 6.1 g/dL (12.0-15.0)
[2024-01-25 10:47] LABS: INR 1.1; Prothrombin Time 14.4 Seconds (11.1-14.7)
[2024-01-25 10:48] LABS: Partial Thromboplastin Time 30.4 Seconds (22.3-36.8)
[2024-01-25 10:54] LABS: Anisocytosis 2+; Hypochromasia 2+; Platelet Estimate Adequate (Adequate); Schistocytes None Seen
[2024-01-25 10:57] LABS: Lactic Acid Reflex 1.4 mmol/L (0.7-2.0)
[2024-01-25 10:58] LABS: Alanine Aminotransferase 8 U/L (6-35); Albumin Level 3.6 g/dL (3.5-5.1); Alkaline Phosphatase 90 U/L (38-126); Anion Gap 11 mmol/L (4-12); Aspartate Amino Transferase 15 U/L (14-36); Bilirubin,Total 0.2 mg/dL (0.2-1.3); Blood Urea Nitrogen 24 mg/dL (7-17); Calcium 8.2 mg/dL (8.4-10.2); Carbon Dioxide 35 mmol/L (22-30); Chloride 90 mmol/L (98-107); Estimated CRCL calculation 9 ml/min; Estimated Glomerular Filt Rate 10; Glucose 120 mg/dL (65-110); Potassium 3.5 mmol/L (3.4-5.0); Sodium 136 mmol/L (137-145)
--- NOTE | 2024-01-25 11:27 | ED.RECABL ---
HPI - Recheck/Abnormal Lab/Rx General Chief Complaint: Recheck/Abnormal Lab/Rx <Safia Ken PA-C - Last Filed: 01/25/24 19:19> Stated Complaint: Abnormal Labs <Safia eKn PA-C - Last Filed: 01/25/24 19:19> Time Seen by Provider: 01/25/24 10:21 <ANETA Ty Last Filed: 01/25/24 19:19> Source: patient and old records reviewed <ANETA Ty Last Filed: 01/25/24 19:19> Mode of arrival: EMS <ANETA Ty Last Filed: 01/25/24 19:19> Limitations: no limitations <ANETA Ty Last Filed: 01/25/24 19:19> History of Present Illness HPI narrative: Patient is an 88-year-old female, with past medical history of ESRD on hemodialysis MWF, CHF, HTN, chronic hypoxic resp failure on 2L, chronic anemia on Epogen, who presents to the ED via EMS with report of abnormal labs. Patient is a resident of [facility]. per nursing report, patient had labs drawn on Sunday which showed an abnormally low hemoglobin. She was then sent here today for further evaluation. shelter did not report any recent rectal bleeding or melena. Patient complains of nausea and lower abdominal pain currently. Denies any other concerns. No known fevers. <ANETA Ty Last Filed: 01/25/24 19:19> Related Data Home Medications: Home Medications Medication Instructions Recorded Confirmed atorvastatin 20 mg tablet 20 mg PO HS 06/22/21 01/25/24 latanoprost 0.005 % eye drops 1 drp EACH EYE HS 06/22/21 01/25/24 spironolactone 25 mg tablet 25 mg PO DAILY 06/22/21 01/25/24 acetaminophen 650 mg tablet 650 mg PO Q6H PRN Pain (Scale 07/21/22 01/25/24 Score 1-3) buspirone 7.5 mg tablet 5 mg PO BID 07/21/22 01/25/24 sevelamer carbonate 0.8 gram oral 0.8 g PO TID 01/19/23 01/25/24 powder packet (Renvela) escitalopram oxalate 10 mg tablet 10 mg PO DAILY 04/10/23 01/25/24 levothyroxine 125 mcg tablet 175 mcg PO DAILY@0630 04/30/23 01/25/24 (Synthroid) docusate sodium 100 mg capsule 100 mg PO BID 07/04/23 01/25/24 ferrous sulfate 325 mg (65 mg 324 mg PO BID 07/04/23 01/25/24 iron) tablet meclizine 25 mg tablet 25 mg PO QID PRN Dizziness Or 11/16/23 01/25/24 Vertigo melatonin 3 mg tablet 3 mg PO HS 11/16/23 01/25/24 menthol-zinc oxide 0.2 %-20 % 1 applic topical BID PRN Skin 11/16/23 01/25/24 topical paste (Remedy Calazime Irritation Protect Paste) pantoprazole 40 mg tablet,delayed 40 mg PO DAILY 11/16/23 01/25/24 release amlodipine 5 mg tablet (Norvasc) 10 mg PO DAILY 11/17/23 01/25/24 cyanocobalamin (vitamin B-12) 1,000 mcg PO DAILY 11/17/23 01/25/24 1,000 mcg tablet (Vitamin B-12) lisinopril 20 mg tablet 20 mg PO DAILY 11/17/23 01/25/24 <Safia Ken PA-C - Last Filed: 01/25/24 19:19> Allergies/Adverse Reactions: Allergies Allergy/AdvReac Type Severity Reaction Status Date / Time adhesive tape Allergy Unknown PLASTIC Verified 01/25/24 11:14 TAPE hydrochlorothiazide Allergy Unknown Verified 01/25/24 11:14 latex Allergy Rash Verified 01/25/24 11:14 <ANETA Ty Last Filed: 01/25/24 19:19> Review of Systems Review of Systems: All systems reviewed & are unremarkable except as noted in HPI. <ANETA Ty Last Filed: 01/25/24 19:19> All systems reviewed & are unremarkable except as noted in HPI and below <ANETA Ty Last Filed: 01/25/24 19:19> [facility] Past Medical History Medical History: Medical History Anxiety Chronic anemia Chronic obstructive pulmonary disease Chronic respiratory failure with hypoxia On 2 to 3 liters nasal cannula. COVID-19 (06/2021) Diastolic dysfunction Diet-controlled type 2 diabetes mellitus End-stage renal disease on hemodialysis Erythropoietin deficiency anemia Gastroesophageal reflux disease Glaucoma Hyperlipidemia Hypertensio
[2024-01-25] MEDS: SODIUM CHLORIDE 0.9% IV 250 ML 30 ML IV CONT (11:48)
[2024-01-25] MEDS: ONDANSETRON INJ 4 MG/2 ML VIAL IV PUSH (11:48)
[2024-01-25] MEDS: TUBING, BLOOD SET 1 EACH XX (12:07)
--- NOTE | 2024-01-25 13:29 | PM.IMHP ---
H&P: HPI History of Present Illness Date/Time: 01/25/24 13:29 Chief Complaint: Abnormal Labs Narrative: 88 y/o F presents here with anemia with PMH of ESRD on HD (MWF), CHF, HTN, chronic hypoxic respiratory failure on 2L NC, HTN, HC LD, hypothyroidism, GI bleed, erythropoietin deficiency anemia, COPD, pulmonary hypertension, and renal osteodystrophy. The patient presents here from [facility] for further evaluation of abnormal labs. Patient was scheduled for dialysis this morning, however was unable to receive treatment due to low hemoglobin. Patient had labs drawn on Sunday, 01/22, which showed significant anemia. OR did not report EMS any rectal bleeding or melena, patient unable to endorse/deny. She has however reporting nausea and lower abdominal pain to the ED provider, none reported at time of exam. Patient is reporting fatigue, unsure when it started. Last episode of anemia requiring transfusion on 07/04/2023. Currently A/Ox2 (self, type of place) and unable to contribute further to HPI. Initial VS at presentation: 97.3? F, HR 71, RR 18, 150/33, and 100% on RA. ED workup showed: No leukocytosis, hemoglobin 6.1, normal coags, creatinine 4.2 and GFR 10, glucose 120. CT of the abdomen pelvis showed stercoral colitis. Review of Systems Review of Systems: ROS unobtainable: Yes unobtainable due to mental status (limited) [facility] Past Medical History Medical History Anxiety Chronic anemia Chronic obstructive pulmonary disease Chronic respiratory failure with hypoxia On 2 to 3 liters nasal cannula. COVID-19 (06/2021) Diastolic dysfunction Diet-controlled type 2 diabetes mellitus End-stage renal disease on hemodialysis Erythropoietin deficiency anemia Gastroesophageal reflux disease Glaucoma Hyperlipidemia Hypertension Hypothyroidism Melena Osteoarthritis Pulmonary hypertension Renal osteodystrophy Vitamin D deficiency Surgical History Surgical History Status post creation of arteriovenous fistula Left upper extremity. Family History Family History Other Diabetes mellitus Hypertension Social History Social History Social History: Surrogate decision maker: Amy Contreras, son. Code status: Do not resuscitate. 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 Spiritual care concerns: No Meds Home Medications and Allergies Home Medications Medication Instructions Recorded Confirmed Type atorvastatin 20 mg tablet 20 mg PO HS 06/22/21 01/25/24 History latanoprost 0.005 % eye drops 1 drp EACH EYE HS 06/22/21 01/25/24 History spironolactone 25 mg tablet 25 mg PO DAILY 06/22/21 01/25/24 History polyethylene glycol 3350 17 gram 17 g PO DAILY PRN constipation #14 05/11/22 01/25/24 Rx oral powder packet (Miralax) ea albuterol sulfate 2.5 mg/3 mL 2.5 mg (3 mL) inhalation Q6HRT PRN 06/16/22 01/25/24 Rx (0.083 %) solution for nebulization shortness of breath #7 mL acetaminophen 650 mg tablet 650 mg PO Q6H PRN Pain (Scale 07/21/22 01/25/24 History Score 1-3) buspirone 7.5 mg tablet 5 mg PO BID 07/21/22 01/25/24 History sevelamer carbonate 0.8 gram ora
--- NOTE | 2024-01-25 13:30 | PC.NURSE ---
Pt arrived at 1340 to the floor RN wasn't able to get admission at this time due to pt being ANO to self only RN called POA but was unable to reach POA.
--- NOTE | 2024-01-25 14:39 | PC.NURSE ---
RN Spoke with channel development manager and was informed that she can't do dialysis until hep B labs were done and resulted. RN called lab at 1510 to get that done. Dialysis Nurse states that since the pt is needing her last unit of blood that she will do the unit of blood when she comes down to dialysis.
--- NOTE | 2024-01-25 16:00 | PC.NURSE ---
RN took pt to dialysis
--- NOTE | 2024-01-25 16:02 | PC.NURSE ---
Pt is currently on dialysis. RN tried to chart the 1600 tele but since pt was in dialysis still the box wouldn't register on the monitor. RN will chart a tele when pt arrives back to the unit.
--- NOTE | 2024-01-25 16:25 | P.CONNP_ITS ---
Assessment and Plan Assessment and plan (1) End stage renal disease: Code(s): N18.6 - End stage renal disease Status: Chronic Assessment and Plan: * DUF today and HD tomorrow * continue M/W/F dialysis schedule while hospitalized * follow electrolytes, volume status, and clearance (2) Acute on chronic anemia: Code(s): D64.9 - Anemia, unspecified Status: Acute Assessment and Plan: * Hgb 6.7 on admission * acute on chronic issue * EGD (on 04/2023): Nonobstructive esophageal ring with TTS balloon dilation performed, small hiatal hernia phone at the GE junction, multiple small polyps observed in the fundus and in the body of the stomach that appeared benign, no gastritis, no ulcers, 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 * colonoscopy (on 03/2022): A few diverticula were present in the sigmoid colon without perforation, abscess, or bleeding, some retained stools in the cecum and in the rectum. * known history of of acute blood loss related to occult GI bleed from AVM Not amenable to fixation via colonoscopy or EGD and not appropriate surgical candidate. Has previously received transfusions without surgical/procedural intervention * PRBC transfusion per protocol * high dose Epogen with dialysis * GI consulted (3) Chronic respiratory failure with hypoxia: Code(s): J96.11 - Chronic respiratory failure with hypoxia Status: Chronic Assessment and Plan: * at baseline * on supplemental oxygen by nasal cannula (4L) * acute worsening due to anemia and mild fluid overload * CXR with increasing interstitial and airspace opacities throughout both lungs which represent mild to moderate pulmonary edema and/or pneumonia; possible very small bilateral pleural effusions and cardiomegaly * low suspicion for pneumonia - no cough, fever, chills, or leukocytosis * PRBC transfusion and fluid removal with HD (4) Anemia: Code(s): D64.9 - Anemia, unspecified Status: Chronic Assessment and Plan: * chronic issue/problem * partly related to ESRD but acute blood loss a concern * Epogen with HD * PRBC transfusion per protocol * follow trend H/H (5) Hypertension: Code(s): I10 - Essential (primary) hypertension Status: Chronic Assessment and Plan: * reasonable control * continue home medications * follow trend of hemodynamics (6) Diabetes: Qualifiers: Diabetes mellitus type: type 2 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 insulin use: without longterm use Diabetes mellitus complication status: with kidney complications Diabetes mellitus complication detail: with chronic kidney disease Chronic kidney disease stage: on chronic dialysis Qualified Code(s): E11.22 - Type 2 diabetes mellitus with diabetic chronic kidney disease; N18.6 - End stage renal disease; Z99.2 - Dependence on renal dialysis Code(s): E11.9 - Type 2 diabetes mellitus without complications Status: Chronic Assessment and Plan: * follow accuchecks * glycemic control per hospitalists I will continue to follow the patient with you while she remains hospitalized and make further recommendations as needed. Thank you for allowing me to participate in the care of this patient. History of Present Illness Reason for Consult Consult date: 01/25/24 Reason for consult: end stage renal disease Chief Complaint Chief complaint: GIB/Anemia/Stercoral Colitis/ESRD on HD History of Present Illness Narrative: A great majority o
--- NOTE | 2024-01-25 16:25 | PM.CNNEP ---
Assessment and Plan Assessment and plan (1) End stage renal disease: Code(s): N18.6 - End stage renal disease Status: Chronic Assessment and Plan: DUF today and HD tomorrow continue M/W/F dialysis schedule while hospitalized follow electrolytes, volume status, and clearance (2) Acute on chronic anemia: Code(s): D64.9 - Anemia, unspecified Status: Acute Assessment and Plan: Hgb 6.7 on admission acute on chronic issue EGD (on 04/2023): Nonobstructive esophageal ring with TTS balloon dilation performed, small hiatal hernia phone at the GE junction, multiple small polyps observed in the fundus and in the body of the stomach that appeared benign, no gastritis, no ulcers, 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 colonoscopy (on 03/2022): A few diverticula were present in the sigmoid colon without perforation, abscess, or bleeding, some retained stools in the cecum and in the rectum. known history of of acute blood loss related to occult GI bleed from AVM Not amenable to fixation via colonoscopy or EGD and not appropriate surgical candidate. Has previously received transfusions without surgical/procedural intervention PRBC transfusion per protocol high dose Epogen with dialysis GI consulted (3) Chronic respiratory failure with hypoxia: Code(s): J96.11 - Chronic respiratory failure with hypoxia Status: Chronic Assessment and Plan: at baseline on supplemental oxygen by nasal cannula (4L) acute worsening due to anemia and mild fluid overload CXR with increasing interstitial and airspace opacities throughout both lungs which represent mild to moderate pulmonary edema and/or pneumonia; possible very small bilateral pleural effusions and cardiomegaly low suspicion for pneumonia - no cough, fever, chills, or leukocytosis PRBC transfusion and fluid removal with HD (4) Anemia: Code(s): D64.9 - Anemia, unspecified Status: Chronic Assessment and Plan: chronic issue/problem partly related to ESRD but acute blood loss a concern Epogen with HD PRBC transfusion per protocol follow trend H/H (5) Hypertension: Code(s): I10 - Essential (primary) hypertension Status: Chronic Assessment and Plan: reasonable control continue home medications follow trend of hemodynamics (6) Diabetes: Qualifiers: Diabetes mellitus type: type 2 Diabetes mellitus halfway insulin use: without terminal system operator use Diabetes mellitus complication status: with kidney complications Diabetes mellitus complication detail: with chronic kidney disease Chronic kidney disease stage: on chronic dialysis Qualified Code(s): E11.22 - Type 2 diabetes mellitus with diabetic chronic kidney disease; N18.6 - End stage renal disease; Z99.2 - Dependence on renal dialysis Code(s): E11.9 - Type 2 diabetes mellitus without complications Status: Chronic Assessment and Plan: follow accuchecks glycemic control per hospitalists I will continue to follow the patient with you while she remains hospitalized and make further recommendations as needed. Thank you for allowing me to participate in the care of this patient. History of Present Illness Reason for Consult Consult date: 01/25/24 Reason for consult: end stage renal disease Chief Complaint Chief complaint: GIB/Anemia/Stercoral Colitis/ESRD on HD History of Present Illness Narrative: A great majority of the information I have obtained is from review of the electronic medical record as well as my personal experience taking care of this patient in the past as well as discussion with the physicians/nurses involved in the patient's care as it is difficult to get a full and complete history from the patient due to her hardness of hearing and being a poor historian. The patient is an 88-year-old female with multiple medical problems a
[2024-01-25 16:39] LABS: Iron 43 ug/dL (37-170)
[2024-01-25 16:49] LABS: Percent Iron Saturation 20 % (20-50)
[2024-01-25 17:11] LABS: Hepatitis B Surface Antigen Negative (Negative)
--- NOTE | 2024-01-25 17:26 | PC.NURSE ---
This patient, Sofía Contreras, was admitted to [facility] Surg Room 323-01. Patient/family oriented to hospital policies and general routines including ID bracelet, bed and alarms, visiting hours, pain management, procedures, bathroom and other care routines, personal items, smoking policy, room service/diet, and visiting hours. Information on how to activate the Rapid Response Team has been discussed. Patient/Family are encouraged to report perceived risks to care and to ask questions if they do not understand what they are told or what they should do.
[2024-01-25 17:28] LABS: Hepatitis B Surface Anti Res Negative
[2024-01-25] MEDS: EPOETIN ALFA-EPBX 10,000 UNITS/ML VIAL 10000 UNITS IV PUSH (17:29)
[2024-01-25 17:52] LABS: Folic Acid 6.3 ng/mL (2.76->20); Vitamin B12 > 1000.0 pg/mL (239-931)
[2024-01-25 18:41] LABS: Glucose Point of Care 97 mg/dl (65-105)
[2024-01-25 20:29] LABS: Glucose Point of Care 106 mg/dl (65-105)
[2024-01-25 20:50] LABS: Hematocrit 29.9 % (37.0-47.0); Hemoglobin 8.9 g/dL (12.0-15.0)
[2024-01-25] MEDS: ATORVASTATIN 20 MG TABLET PO (21:43)
[2024-01-25] MEDS: busPIRone HCL 5 MG TABLET PO (21:43)
[2024-01-25] MEDS: MELATONIN 3 MG TABLET PO (21:43)
[2024-01-26] VITALS (14 sets, daily range): BP systolic 122–137; BP diastolic 34–47; PULSE 63–98; RESP 16–20; TEMP 35.8–36.8; O2SAT 90–99
[2024-01-26] MEDS: ALBUTEROL SULFATE NEB 2.5 MG/3 ML INH INHALATION ×2 (00:28→06:25)
[2024-01-26 00:31] LABS: Hematocrit 29.7 % (37.0-47.0); Hemoglobin 8.9 g/dL (12.0-15.0)
[2024-01-26] MEDS: LEVOTHYROXINE SODIUM 75 MCG TABLET PO (06:09)
[2024-01-26] MEDS: LEVOTHYROXINE SODIUM 100 MCG TABLET PO (06:09)
[2024-01-26 07:18] LABS: Hematocrit 29.5 % (37.0-47.0); Hemoglobin 8.6 g/dL (12.0-15.0)
[2024-01-26 07:45] LABS: Glucose Point of Care 80 mg/dl (65-105)
[2024-01-26 09:24] LABS: Alanine Aminotransferase 8 U/L (6-35); Albumin Level 3.4 g/dL (3.5-5.1); Alkaline Phosphatase 105 U/L (38-126); Anion Gap 7 mmol/L (4-12); Aspartate Amino Transferase 19 U/L (14-36); Bilirubin,Total 0.3 mg/dL (0.2-1.3); Blood Urea Nitrogen 9 mg/dL (7-17); Calcium 8.9 mg/dL (8.4-10.2); Carbon Dioxide 29 mmol/L (22-30); Chloride 102 mmol/L (98-107); Estimated CRCL calculation 14 ml/min; Estimated Glomerular Filt Rate 16; Glucose 79 mg/dL (65-110); Phosphorus 3.5 mg/dL (2.5-4.5); Potassium 3.7 mmol/L (3.4-5.0); Sodium 138 mmol/L (137-145)
--- NOTE | 2024-01-26 09:37 | PM.IMPN ---
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 She is a resident of [facility]. Patient had labs drawn on Sunday which showed an abnormally low hemoglobin and was sent here for further evaluation. Patient denied any recent rectal bleeding or melena. See did report nausea and lower abdominal pain. On ED evaluation her vitals were stable. Hemoglobin was 6.1 in the outside lab. Grossly melanotic stool on examination stool was guaiac positive as well. No new history of GI bleed related to AVM that are not amenable to fixation via colonoscopy or EGD. Not a surgical candidate either. Had been requiring blood transfusion p.r.n. related to this in the past. Laboratory evaluation in the hospital showed hemoglobin of 6.1 creatinine of 4.2 related to her end-stage renal disease. INR was 1.1 PTT 30.4 LFTs were normal. Abdominal CT showed stercoral colitis. 2 units of packed red blood cells were ordered and transfused. Post transfusion hemoglobin adequate at 8. GI has been consulted for further recommendations. Patient continued on PPI. 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 Colonoscopy 03/25 with few diverticula present in sigmoid colon without perforation abscess or bleeding some retained stools in the cecum and rectum. The EGD with push enteroscopy planned on Sunday. End-stage renal disease on hemodialysis Sunday nephrology on board Congestive heart failure Hypertension Chronic hypoxic respiratory failure on oxygen nasal cannula. Chest x-ray showed increasing interstitial and airspace opacities throughout both lungs which with represent mild to moderate pulmonary edema and/or pneumonia. Possible very small bilateral pleural effusions. Cardiomegaly. Hyperlipidemia Hypothyroidism History of GI bleed related to AVMs COPD Chronic anemia Pulmonary hypertension Renal osteodystrophy Osteoarthritis GERD COPD Anxiety depression Type 2 diabetes on diet control Code status do not resuscitate DVT prophylaxis SCDs pharmacologic prophylaxis contraindicated due to anemia. Subjective Date/time seen: 01/26/24 09:37 Interval history: Chart reviewed. Received 2 units of packed red blood cell transfusion. Vitals stable. Labs reviewed. Review of Systems Review of Systems: All systems reviewed & are unremarkable except as noted in HPI and below Exam Narrative: GENERAL: Elderly, non
[2024-01-26] MEDS: busPIRone HCL 5 MG TABLET PO ×2 (09:55→17:26)
[2024-01-26] MEDS: DOCUSATE SODIUM 100 MG CAPSULE PO ×2 (09:55→17:26)
[2024-01-26] MEDS: amLODIPine BESYLATE 10 MG TABLET PO (09:55)
[2024-01-26] MEDS: CYANOCOBALAMIN 1,000 MCG TABLET 1000 MCG PO (09:55)
[2024-01-26] MEDS: FERROUS SULFATE 325 MG TABLET DR 324 MG PO ×2 (09:55→17:26)
[2024-01-26] MEDS: ESCITALOPRAM OXALATE 10 MG TABLET PO (09:55)
[2024-01-26] MEDS: SPIRONOLACTONE 25 MG TABLET PO (09:56)
[2024-01-26] MEDS: PANTOPRAZOLE 40 MG TABLET PO (09:56)
[2024-01-26] MEDS: lisinopriL 20 MG TABLET PO (09:56)
[2024-01-26] MEDS: Non-Formulary (sevelamer carbonate 0.8 gram ORAL powder in packet) 1 EACH PO ×2 (10:00→17:27)
--- NOTE | 2024-01-26 10:43 | P.PNNP_ITS ---
Progress Note: A&P Assessment and Plan (1) End stage renal disease: Code(s): N18.6 - End stage renal disease Status: Chronic Assessment and Plan: * DUF today and HD tomorrow * continue M/W/F dialysis schedule while hospitalized * follow electrolytes, volume status, and clearance (2) Acute on chronic anemia: Code(s): D64.9 - Anemia, unspecified Status: Acute Assessment and Plan: * Hgb 6.7 on admission * acute on chronic issue * EGD (on 04/2023): Nonobstructive esophageal ring with TTS balloon dilation performed, small hiatal hernia phone at the GE junction, multiple small polyps observed in the fundus and in the body of the stomach that appeared benign, no gastritis, no ulcers, 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 * colonoscopy (on 03/2022): A few diverticula were present in the sigmoid colon without perforation, abscess, or bleeding, some retained stools in the cecum and in the rectum. * known history of of acute blood loss related to occult GI bleed from AVM Not amenable to fixation via colonoscopy or EGD and not appropriate surgical candidate. Has previously received transfusions without surgical/procedural intervention * PRBC transfusion per protocol * high dose Epogen with dialysis * GI consulted (3) Chronic respiratory failure with hypoxia: Code(s): J96.11 - Chronic respiratory failure with hypoxia Status: Chronic Assessment and Plan: * at baseline * on supplemental oxygen by nasal cannula (4L) * acute worsening due to anemia and mild fluid overload * CXR with increasing interstitial and airspace opacities throughout both lungs which represent mild to moderate pulmonary edema and/or pneumonia; possible very small bilateral pleural effusions and cardiomegaly * low suspicion for pneumonia - no cough, fever, chills, or leukocytosis * PRBC transfusion and fluid removal with HD (4) Anemia: Code(s): D64.9 - Anemia, unspecified Status: Chronic Assessment and Plan: * chronic issue/problem * partly related to ESRD but acute blood loss a concern * Epogen with HD * PRBC transfusion per protocol * follow trend H/H (5) Hypertension: Code(s): I10 - Essential (primary) hypertension Status: Chronic Assessment and Plan: * reasonable control * continue home medications * follow trend of hemodynamics (6) Diabetes: Qualifiers: Diabetes mellitus type: type 2 Diabetes mellitus longterm insulin use: without termite control service representative use Diabetes mellitus complication status: with kidney complications Diabetes mellitus complication detail: with chronic kidney disease Chronic kidney disease stage: on chronic dialysis Qualified Code(s): E11.22 - Type 2 diabetes mellitus with diabetic chronic kidney disease; N18.6 - End stage renal disease; Z99.2 - Dependence on renal dialysis Code(s): E11.9 - Type 2 diabetes mellitus without complications Status: Chronic Assessment and Plan: * follow accuchecks * glycemic control per hospitalists Will continue to follow. Subjective Date/time seen: 01/26/24 10:43 Interval history: Follow-up for end stage renal disease on hemodialysis. Tolerated dialysis treatment yesterday afternoon as well PRBC transfusion (1st unit given on the floor, 2nd unit given with dialysis); improvement/appropriate incrementation in H/H noted; no apparent distress voiced on my visit; no issues/events overnight or earlier this AM. Exam
--- NOTE | 2024-01-26 10:43 | PM.PNNEP ---
Progress Note: A&P Assessment and Plan (1) End stage renal disease: Code(s): N18.6 - End stage renal disease Status: Chronic Assessment and Plan: DUF today and HD tomorrow continue M/W/F dialysis schedule while hospitalized follow electrolytes, volume status, and clearance (2) Acute on chronic anemia: Code(s): D64.9 - Anemia, unspecified Status: Acute Assessment and Plan: Hgb 6.7 on admission acute on chronic issue EGD (on 04/2023): Nonobstructive esophageal ring with TTS balloon dilation performed, small hiatal hernia phone at the GE junction, multiple small polyps observed in the fundus and in the body of the stomach that appeared benign, no gastritis, no ulcers, 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 colonoscopy (on 03/2022): A few diverticula were present in the sigmoid colon without perforation, abscess, or bleeding, some retained stools in the cecum and in the rectum. known history of of acute blood loss related to occult GI bleed from AVM Not amenable to fixation via colonoscopy or EGD and not appropriate surgical candidate. Has previously received transfusions without surgical/procedural intervention PRBC transfusion per protocol high dose Epogen with dialysis GI consulted (3) Chronic respiratory failure with hypoxia: Code(s): J96.11 - Chronic respiratory failure with hypoxia Status: Chronic Assessment and Plan: at baseline on supplemental oxygen by nasal cannula (4L) acute worsening due to anemia and mild fluid overload CXR with increasing interstitial and airspace opacities throughout both lungs which represent mild to moderate pulmonary edema and/or pneumonia; possible very small bilateral pleural effusions and cardiomegaly low suspicion for pneumonia - no cough, fever, chills, or leukocytosis PRBC transfusion and fluid removal with HD (4) Anemia: Code(s): D64.9 - Anemia, unspecified Status: Chronic Assessment and Plan: chronic issue/problem partly related to ESRD but acute blood loss a concern Epogen with HD PRBC transfusion per protocol follow trend H/H (5) Hypertension: Code(s): I10 - Essential (primary) hypertension Status: Chronic Assessment and Plan: reasonable control continue home medications follow trend of hemodynamics (6) Diabetes: Qualifiers: Diabetes mellitus type: type 2 Diabetes mellitus prison insulin use: without meterman use Diabetes mellitus complication status: with kidney complications Diabetes mellitus complication detail: with chronic kidney disease Chronic kidney disease stage: on chronic dialysis Qualified Code(s): E11.22 - Type 2 diabetes mellitus with diabetic chronic kidney disease; N18.6 - End stage renal disease; Z99.2 - Dependence on renal dialysis Code(s): E11.9 - Type 2 diabetes mellitus without complications Status: Chronic Assessment and Plan: follow accuchecks glycemic control per hospitalists Will continue to follow. Subjective Date/time seen: 01/26/24 10:43 Interval history: Follow-up for end stage renal disease on hemodialysis. Tolerated dialysis treatment yesterday afternoon as well PRBC transfusion (1st unit given on the floor, 2nd unit given with dialysis); improvement/appropriate incrementation in H/H noted; no apparent distress voiced on my visit; no issues/events overnight or earlier this AM. Exam Narrative: General: elderly and chronically ill-appearing female in NAD Heart: normal S1 and S2; no rub Lungs: coarse breath sounds; decreased at bases Abdomen: soft, nondistended, positive bowel sounds Extremities: no cyanosis or clubbing; trace edema Skin: warm and dry Objective Data Vital Signs Vital Signs: Vital Signs Temp Pulse Resp BP Pulse Ox O2 Del Method O2 Flow Rate 01/26/24 09:50 98 Nasal Cannula 3
--- NOTE | 2024-01-26 10:56 | WPDGICN ---
Assessment and Plan Assessment and plan (1) Heme positive stool: Code(s): R19.5 - Other fecal abnormalities Status: Acute Assessment and Plan: she has chronic anemia given ESRD but last hgb 11/2023 was 12 we can investigate with EGD again on Sunday since she had AVM in duodenum last time, probably this time we can use push enteroscopy to reach jejunum (2) GI (gastrointestinal bleed): Qualifiers: GI bleed type/associated pathology: melena Qualified Code(s): K92.1 - Melena Code(s): K92.2 - Gastrointestinal hemorrhage, unspecified Status: Acute Assessment and Plan: iv protonix (3) Acute on chronic anemia: Code(s): D64.9 - Anemia, unspecified Status: Acute Assessment and Plan: multifactorial consider egd evaluation sunday (4) Stercoral colitis: Code(s): K52.89 - Other specified noninfective gastroenteritis and colitis Status: Acute Assessment and Plan: bowel regimen (5) ESRD (end stage renal disease) on dialysis: Code(s): N18.6 - End stage renal disease; Z99.2 - Dependence on renal dialysis Status: Acute Assessment and Plan: by needle grinder (6) Chronic hypoxemic respiratory failure: Code(s): J96.11 - Chronic respiratory failure with hypoxia Status: Acute GI Consult Note Consult date/time: 01/26/24 10:56 Reason for consult: FOBT+, acute on chronic anemia HPI: Sofía Contreras is a 88 year old female with end-stage renal disease on hemodialysis, chronic respiratory failure on 2 to 3 L nasal cannula, chronic obstructive pulmonary disease, pulmonary hypertension, diastolic dysfunction, hypertension, chronic anemia, dementia presented with previous hospitalization for worsening anemia- she has had numerous hospitalizations and numerous investigations because of anemia by Dr Appiah and Dr Guerra, had EGD performed by Dr. Guerra? earlier 2022 found gastric polyps and duodenal polyps but no sign of bleeding, also noted that there was a resolution clip in the body of the stomach.? Had colonoscopy 2020. I repeated her EGD 04/2023, found esophageal ring and non bleeding AVM in duodenum treated with APC. She is poor historian and was brought here from [facility] for further evaluation of abnormal labs, she was scheduled for dialysis but unable to receive treatment due to low hemoglobin ~ 6. ER evaluation revealed + FOBT. More labs no leukocytosis, hemoglobin 6.1, normal coags, creatinine 4.2 and GFR 10, glucose 120. CT of the abdomen pelvis showed stercoral colitis. She is comfortable now. Review of Systems Review of Systems: ROS unobtainable: Yes unobtainable due to mental status [facility] Past Medical History Medical History Anxiety Chronic anemia Chronic obstructive pulmonary disease Chronic respiratory failure with hypoxia On 2 to 3 liters nasal cannula. COVID-19 (06/2021) Diastolic dysfunction Diet-controlled type 2 diabetes mellitus End-stage renal disease on hemodialysis Erythropoietin deficiency anemia Gastroesophageal reflux disease Glaucoma Hyperlipidemia Hypertension Hypothyroidism Melena Osteoarthritis Pulmonary hypertension Renal osteodystrophy Vitamin D deficiency Surgical History Surgical History Status post creation of arteriovenous fistula Left upper extremity. Family History Family History Other Diabetes mellitus Hypertension Social History Social History Social History: Surrogate decision maker: Amy Contreras, son. Code status: Do not resuscitate. Smoking packs per day: 1 Smoking cigarettes per day: 20.0 Years smoked: 56 Smoking pack-years: 56.00 Smoking status: Former smoker Tobacco type: cigarettes Second hand to
[2024-01-26 11:32] LABS: Glucose Point of Care 146 mg/dl (65-105)
[2024-01-26 14:20] LABS: Basophils Absolute Auto 0.1 K/mm3 (0.0-0.1); Basophils Percent Auto 0.7 % (0.2-1.2); Eosinophils Absolute Auto 0.2 K/mm3 (0-0.3); Eosinophils Percent Auto 2.7 % (0-4.4); Hematocrit 29.3 % (37.0-47.0); Hemoglobin 8.6 g/dL (12.0-15.0); Immature Granulocyte Absolute 0.11 K/mm3 (0.00-0.031); Immature Granulocyte Percent A 1.5 % (0-0.5); Lymphocytes Absolute Auto 0.43 K/mm3 (0.9-3.2); Lymphocytes Percent Auto 5.7 % (18.3-44.2); Mean Corpuscular HGB Conc 29.4 g/dl (32-36); Mean Corpuscular Hemoglobin 28.7 pg (26-34); Mean Corpuscular Volume 97.7 fl (80-100); Mean Platelet Volume 10.9 fl (7.4-10.4); Monocytes Absolute Auto 0.9 K/mm3 (0.1-0.6); Monocytes Percent Auto 11.4 % (2.6-8.5); Neutrophils Absolute Auto 5.8 K/mm3 (1.3-6.7); Nucleated Red Blood Cells Perc 0.4 % (0.0-0.2); Platelet Count Result 301 k/mm3 (150-375); Red Cell Distribution Width 18.4 % (11.5-14.5); White Blood Count 7.5 K/mm3 (4.5-10.0)
[2024-01-26 15:05] LABS: Platelet Estimate Adequate (Adequate)
[2024-01-26 15:06] LABS: Anisocytosis 1+; Burr Cells 1+; Schistocytes None Seen
[2024-01-26 16:33] LABS: Glucose Point of Care 106 mg/dl (65-105)
[2024-01-26 20:15] LABS: Glucose Point of Care 98 mg/dl (65-105)
[2024-01-26] MEDS: ATORVASTATIN 20 MG TABLET PO (20:46)
[2024-01-26] MEDS: MELATONIN 3 MG TABLET PO (20:49)
[2024-01-26] MEDS: LATANOPROST 0.005% OP SOLN 2.5 ML BTL 1 DROP EACH EYE (20:49)
[2024-01-26] MEDS: PANTOPRAZOLE SODIUM IV 40 MG VIAL IV PUSH (20:49)
[2024-01-27] VITALS (10 sets, daily range): BP systolic 124–143; BP diastolic 41–50; PULSE 65–77; RESP 16–20; TEMP 35.8–36.8; O2SAT 94–98
[2024-01-27] MEDS: LEVOTHYROXINE SODIUM 100 MCG TABLET PO (06:07)
[2024-01-27] MEDS: LEVOTHYROXINE SODIUM 75 MCG TABLET PO (06:07)
[2024-01-27 07:18] LABS: Basophils Absolute Auto 0.1 K/mm3 (0.0-0.1); Basophils Percent Auto 0.8 % (0.2-1.2); Eosinophils Absolute Auto 0.4 K/mm3 (0-0.3); Eosinophils Percent Auto 5.8 % (0-4.4); Hemoglobin 9.1 g/dL (12.0-15.0); Immature Granulocyte Absolute 0.16 K/mm3 (0.00-0.031); Immature Granulocyte Percent A 2.1 % (0-0.5); Lymphocytes Absolute Auto 0.45 K/mm3 (0.9-3.2); Mean Corpuscular HGB Conc 28.4 g/dl (32-36); Mean Corpuscular Volume 98.5 fl (80-100); Mean Platelet Volume 10.7 fl (7.4-10.4); Monocytes Absolute Auto 0.9 K/mm3 (0.1-0.6); Monocytes Percent Auto 12.2 % (2.6-8.5); Neutrophils Absolute Auto 5.5 K/mm3 (1.3-6.7); Neutrophils Percent Auto 73.1 % (45.5-73.1); Platelet Count Result 283 k/mm3 (150-375); Red Blood Count 3.25 M/mm3 (4.2-5.4); Red Cell Distribution Width 18.3 % (11.5-14.5); White Blood Count 7.6 K/mm3 (4.5-10.0)
[2024-01-27 07:29] LABS: Alanine Aminotransferase 6 U/L (6-35); Albumin Level 3.6 g/dL (3.5-5.1); Alkaline Phosphatase 104 U/L (38-126); Anion Gap 11 mmol/L (4-12); Aspartate Amino Transferase 18 U/L (14-36); Bilirubin,Total 0.4 mg/dL (0.2-1.3); Blood Urea Nitrogen 17 mg/dL (7-17); Calcium 8.8 mg/dL (8.4-10.2); Carbon Dioxide 24 mmol/L (22-30); Chloride 98 mmol/L (98-107); Estimated CRCL calculation 11 ml/min; Estimated Glomerular Filt Rate 12; Glucose 75 mg/dL (65-110); Magnesium 2.2 mg/dL (1.6-2.3); Potassium 4.3 mmol/L (3.4-5.0); Sodium 133 mmol/L (137-145)
[2024-01-27 08:34] LABS: Glucose Point of Care 69 mg/dl (65-105)
[2024-01-27 08:44] LABS: Anisocytosis 1+; Hypochromasia 1+; Platelet Estimate Adequate (Adequate); Schistocytes None Seen
[2024-01-27 08:52] LABS: Glucose Point of Care 109 mg/dl (65-105)
[2024-01-27] MEDS: busPIRone HCL 5 MG TABLET PO ×2 (10:09→17:28)
[2024-01-27] MEDS: CYANOCOBALAMIN 1,000 MCG TABLET 1000 MCG PO (10:09)
[2024-01-27] MEDS: DOCUSATE SODIUM 100 MG CAPSULE PO ×2 (10:09→17:27)
[2024-01-27] MEDS: lisinopriL 20 MG TABLET PO (10:09)
[2024-01-27] MEDS: FERROUS SULFATE 325 MG TABLET DR 324 MG PO (10:09)
[2024-01-27] MEDS: amLODIPine BESYLATE 10 MG TABLET PO (10:09)
[2024-01-27] MEDS: ESCITALOPRAM OXALATE 10 MG TABLET PO (10:09)
[2024-01-27] MEDS: SPIRONOLACTONE 25 MG TABLET PO (10:09)
[2024-01-27] MEDS: PANTOPRAZOLE SODIUM IV 40 MG VIAL IV PUSH ×2 (10:10→21:48)
[2024-01-27] MEDS: Non-Formulary (sevelamer carbonate 0.8 gram ORAL powder in packet) 1 EACH PO ×3 (10:11→17:28)
--- NOTE | 2024-01-27 11:37 | PM.IMPN ---
Progress Note: A&P Assessment and Plan (1) Acute on chronic anemia: Code(s): D64.9 - Anemia, unspecified Status: Acute (2) End-stage renal disease on hemodialysis: Code(s): N18.6 - End stage renal disease; Z99.2 - Dependence on renal dialysis Status: Chronic (3) Chronic respiratory failure with hypoxia: Code(s): J96.11 - Chronic respiratory failure with hypoxia Status: Chronic (4) Diabetes: Qualifiers: Diabetes mellitus type: type 2 Diabetes mellitus termination clerk insulin use: without skilled nursing use Diabetes mellitus complication status: with kidney complications Diabetes mellitus complication detail: with chronic kidney disease Chronic kidney disease stage: on chronic dialysis Qualified Code(s): E11.22 - Type 2 diabetes mellitus with diabetic chronic kidney disease; N18.6 - End stage renal disease; Z99.2 - Dependence on renal dialysis Code(s): E11.9 - Type 2 diabetes mellitus without complications Status: Chronic (5) HTN (hypertension): Qualifiers: Hypertension type: primary hypertension Qualified Code(s): I10 - Essential (primary) hypertension Code(s): I10 - Essential (primary) hypertension Status: Chronic Plan This is an 88-year-old female who presents to the ED via EMS with report of abnormal labs. She is a resident of [facility]. Patient had labs drawn on Sunday which showed an abnormally low hemoglobin and was sent here for further evaluation. Patient denied any recent rectal bleeding or melena. See did report nausea and lower abdominal pain. On ED evaluation her vitals were stable. Hemoglobin was 6.1 in the outside lab. Grossly melanotic stool on examination stool was guaiac positive as well. No new history of GI bleed related to AVM that are not amenable to fixation via colonoscopy or EGD. Not a surgical candidate either. Had been requiring blood transfusion p.r.n. related to this in the past. Laboratory evaluation in the hospital showed hemoglobin of 6.1 creatinine of 4.2 related to her end-stage renal disease. INR was 1.1 PTT 30.4 LFTs were normal. Abdominal CT showed stercoral colitis. 2 units of packed red blood cells were ordered and transfused. Post transfusion hemoglobin adequate at 8. GI has been consulted for further recommendations. Patient continued on PPI. 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 Colonoscopy 03/25 with few diverticula present in sigmoid colon without perforation abscess or bleeding some retained stools in the cecum and rectum. The EGD with push enteroscopy planned on Sunday. H&H remained stable post transfusion. End-stage renal disease on hemodialysis Sunday nephrology on board Congestive heart failure Hypertension Chronic hypoxic respiratory failure on oxygen nasal cannula. Chest x-ray showed increasing interstitial and airspace opacities throughout both lungs which with represent mild to moderate pulmonary edema and/or pneumonia. Possible very small bilateral pleural effusions. Cardiomegaly. Hyperlipidemia Hypothyroidism History of GI bleed related to AVMs COPD Chronic anemia Pulmonary hypertension Renal osteodystrophy Osteoarthritis GERD COPD Anxiety depression Type 2 diabetes on diet control Code status do not resuscitate DVT prophylaxis SCDs pharmacologic prophylaxis contraindicated due to anemia. Subjective Date/time seen: 01/27/24 11:37 Interval history: no overnight events, patient reports she is not doing okay but no specific symptoms. No further melena noted Review of Systems Review of Systems: All systems reviewed & are unremarkable except as noted in HPI and below
[2024-01-27 11:56] LABS: Glucose Point of Care 129 mg/dl (65-105)
--- NOTE | 2024-01-27 14:01 | WPDGIPROGNO ---
Progress Note: A&P Assessment and Plan (1) Heme positive stool: Code(s): R19.5 - Other fecal abnormalities Status: Acute Assessment and Plan: known h/o AVM in duodenum no overt gib but here again with worsening anemia tomorrow EGD with push enteroscopy to see if any more AVM or source of blood loss (2) Acute on chronic anemia: Code(s): D64.9 - Anemia, unspecified Status: Acute Assessment and Plan: hgb up to 9 after prbc (3) Stercoral colitis: Code(s): K52.89 - Other specified noninfective gastroenteritis and colitis Status: Acute Assessment and Plan: bowel regimen (4) Melena: Code(s): K92.1 - Melena Status: Acute (5) ESRD (end stage renal disease) on dialysis: Code(s): N18.6 - End stage renal disease; Z99.2 - Dependence on renal dialysis Status: Acute (6) Confusion: Code(s): R41.0 - Disorientation, unspecified Status: Inactive Subjective Date/time seen: 01/27/24 14:01 Interval history: no changes, no signs of active bleeding pleasantly confused Review of Systems Review of Systems: All systems reviewed & are unremarkable except as noted in HPI and below Exam Const: Other: chronically ill but no distress HENMT: Face/Nose/Sinus: Normal nares present Eyes: Sclera: sclerae normal Neck: Neck: supple Resp: Effort & Inspection: normal respiratory effort Cardio: Rate: regular rate GI: GI Palp: Yes Soft to palpation and No Tenderness to palpation present (GI) Auscultation: normal bowel sounds Skin: Other: pallor Neuro: Speech: normal speech Other: confused Extrem: General: normal to inspection Other: av shunt in left arm Psych: Affect: normal affect Objective Data Vital Signs Vital Signs: Vital Signs - 24 hr 01/26/24 16:02 01/26/24 21:28 01/26/24 20:00 Temperature 96.4 F L Pulse Rate 63 98 Respiratory Rate 16 Blood Pressure 122/34 L Pulse Oximetry 92 92 Oxygen Delivery Nasal Cannula Oxygen Flow Rate 3 01/26/24 20:00 01/27/24 00:00 01/27/24 04:00 Temperature Pulse Rate 70 70 77 Respiratory Rate Blood Pressure Pulse Oximetry Oxygen Delivery Oxygen Flow Rate 01/27/24 05:36 01/27/24 09:36 Temperature 96.4 F L Pulse Rate 74 Respiratory Rate 18 Blood Pressure 143/46 H Pulse Oximetry 97 95 Oxygen Delivery Nasal Cannula Oxygen Flow Rate 3 Intake/Output Intake/Output: Intake & Output 01/24/24 01/25/24 01/26/24 01/27/24 23:59 23:59 23:59 23:59 Intake Total 950 820 240 Output Total 3012 Balance -2062 820 240 Meds/Results Medications: Active Medications Generic Name Dose Route Start Last Admin Trade Name Freq PRN Reason Stop Dose Admin Acetaminophen 650 mg 01/25/24 12:23 Acetaminophen 325 Mg Tablet PO Q4H PRN Mild Pain (1-3) or Fever Albuterol 2.5 mg 01/25/24 20:39 01/26/24 06:25 Albuterol Sulfate Neb 2.5 Mg/3 Ml Inh INHALATION 2.5 mg Q6HRT PRN Administration shortness of breath Amlodipine Besylate 10 mg 01/26/24 09:00 01/27/24 10:09 Amlodipine Besylate 10 Mg Tablet PO 10 mg DAILY LAUREN Administration Atorvastatin Calcium 20 mg 01/25/24 21:00 01/26/24 20:46 Atorvastatin 20 Mg Tablet PO 20 mg HS LAUREN Administration Buspirone HCl 5 mg 01/25/24 21:05 01/27/24 10:09 Buspirone Hcl 5 Mg Tablet PO 5 mg BID LAUREN Administration Cyanocobalamin 1,000 mcg 01/26/24 09:00 01/27/24 10:09 Cyanocobalamin 1,000 Mcg Tablet PO 1,000 mcg DAILY LAUREN Administration Dextrose 12.5 gm 01/25/24 13:46 Dextrose 50% 25 Gm/50 Ml Syringe IV PUSH PRN PRN Hypoglycemia Protocol Docusate Sodium 100 mg 01/26/24 09:00 01/27/24 10:09 Docusate Sodium 100 Mg Capsule PO 100 mg BID LAUREN Administration Escitalopram Oxalate 10 mg 01/26/24 09:00 01/27/24 10:09 Escitalopram Oxalate 10 Mg Tablet PO 10 mg DAILY LAUREN A
--- NOTE | 2024-01-27 14:31 | PM.PNNEP ---
Progress Note: A&P Assessment and Plan (1) End stage renal disease: Code(s): N18.6 - End stage renal disease Status: Chronic Assessment and Plan: HD tomorrow continue M/W/F dialysis schedule while hospitalized follow electrolytes, volume status, and clearance (2) Acute on chronic anemia: Code(s): D64.9 - Anemia, unspecified Status: Acute Assessment and Plan: Hgb 6.7 on admission acute on chronic issue EGD (on 04/2023): Nonobstructive esophageal ring with TTS balloon dilation performed, small hiatal hernia phone at the GE junction, multiple small polyps observed in the fundus and in the body of the stomach that appeared benign, no gastritis, no ulcers, 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 colonoscopy (on 03/2022): A few diverticula were present in the sigmoid colon without perforation, abscess, or bleeding, some retained stools in the cecum and in the rectum. known history of of acute blood loss related to occult GI bleed from AVM Not amenable to fixation via colonoscopy or EGD and not appropriate surgical candidate. Has previously received transfusions without surgical/procedural intervention PRBC transfusion per protocol high dose Epogen with dialysis GI consulted (3) Chronic respiratory failure with hypoxia: Code(s): J96.11 - Chronic respiratory failure with hypoxia Status: Chronic Assessment and Plan: at baseline on supplemental oxygen by nasal cannula (4L) acute worsening due to anemia and mild fluid overload CXR with increasing interstitial and airspace opacities throughout both lungs which represent mild to moderate pulmonary edema and/or pneumonia; possible very small bilateral pleural effusions and cardiomegaly low suspicion for pneumonia - no cough, fever, chills, or leukocytosis (4) Anemia: Code(s): D64.9 - Anemia, unspecified Status: Chronic Assessment and Plan: chronic issue/problem partly related to ESRD but acute blood loss a concern Epogen with HD PRBC transfusion per protocol follow trend H/H (5) Hypertension: Code(s): I10 - Essential (primary) hypertension Status: Chronic Assessment and Plan: reasonable control continue home medications follow trend of hemodynamics (6) Diabetes: Qualifiers: Diabetes mellitus type: type 2 Diabetes mellitus termination clerk insulin use: without termination clerk use Diabetes mellitus complication status: with kidney complications Diabetes mellitus complication detail: with chronic kidney disease Chronic kidney disease stage: on chronic dialysis Qualified Code(s): E11.22 - Type 2 diabetes mellitus with diabetic chronic kidney disease; N18.6 - End stage renal disease; Z99.2 - Dependence on renal dialysis Code(s): E11.9 - Type 2 diabetes mellitus without complications Status: Chronic Assessment and Plan: follow accuchecks glycemic control per hospitalists Will continue to follow. Subjective Date/time seen: 01/27/24 14:31 Interval history: Follow-up for end stage renal disease on hemodialysis. Reports to me that she is not feeling well but she is unable to elaborate any further than this; H/H has been relatively stable since PRBC transfusion; noted plans for EGD and possible push enteroscopy given her history of AVMs; no other issues/events overnight or earlier this morning. Exam Narrative: General: elderly and chronically ill-appearing female in NAD Heart: normal S1 and S2; no rub Lungs: coarse breath sounds; decreased at bases Abdomen: soft, nondistended, positive bowel sounds Extremities: no cyanosis or clubbing; trace edema Skin: warm and intact Objective Data Vital Signs Vital Signs: Vital Signs - 24 hr 01/26/24 21:28 01/26/24 20:00 01/26/24 20:00 Temperature 96.4 F L Pulse Rate 98 70 Respiratory Rate 16 Blood Pressure 122/34 L
--- NOTE | 2024-01-27 14:31 | P.PNNP_ITS ---
Progress Note: A&P Assessment and Plan (1) End stage renal disease: Code(s): N18.6 - End stage renal disease Status: Chronic Assessment and Plan: * HD tomorrow * continue M/W/F dialysis schedule while hospitalized * follow electrolytes, volume status, and clearance (2) Acute on chronic anemia: Code(s): D64.9 - Anemia, unspecified Status: Acute Assessment and Plan: * Hgb 6.7 on admission * acute on chronic issue * EGD (on 04/2023): Nonobstructive esophageal ring with TTS balloon dilation performed, small hiatal hernia phone at the GE junction, multiple small polyps observed in the fundus and in the body of the stomach that appeared benign, no gastritis, no ulcers, 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 * colonoscopy (on 03/2022): A few diverticula were present in the sigmoid colon without perforation, abscess, or bleeding, some retained stools in the cecum and in the rectum. * known history of of acute blood loss related to occult GI bleed from AVM Not amenable to fixation via colonoscopy or EGD and not appropriate surgical candidate. Has previously received transfusions without surgical/procedural intervention * PRBC transfusion per protocol * high dose Epogen with dialysis * GI consulted (3) Chronic respiratory failure with hypoxia: Code(s): J96.11 - Chronic respiratory failure with hypoxia Status: Chronic Assessment and Plan: * at baseline * on supplemental oxygen by nasal cannula (4L) * acute worsening due to anemia and mild fluid overload * CXR with increasing interstitial and airspace opacities throughout both lungs which represent mild to moderate pulmonary edema and/or pneumonia; possible very small bilateral pleural effusions and cardiomegaly * low suspicion for pneumonia - no cough, fever, chills, or leukocytosis (4) Anemia: Code(s): D64.9 - Anemia, unspecified Status: Chronic Assessment and Plan: * chronic issue/problem * partly related to ESRD but acute blood loss a concern * Epogen with HD * PRBC transfusion per protocol * follow trend H/H (5) Hypertension: Code(s): I10 - Essential (primary) hypertension Status: Chronic Assessment and Plan: * reasonable control * continue home medications * follow trend of hemodynamics (6) Diabetes: Qualifiers: Diabetes mellitus type: type 2 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 Subjective Date/time seen: 01/27/24 14:31 Interval history: Follow-up for end stage renal disease on hemodialysis. Reports to me that she is not feeling well but she is unable to elaborate any further than this; H/H has been relatively stable since PRBC transfusion; noted plans for EGD and possible push enteroscopy given her history of AVMs; no other issues/events overnight or earlier this morning. Exam Narrative: General: elderly and
[2024-01-27] MEDS: FERROUS SULFATE 325 MG TABLET DR PO (17:30)
[2024-01-27 17:49] LABS: Glucose Point of Care 96 mg/dl (65-105)
[2024-01-27] MEDS: MELATONIN 3 MG TABLET PO (21:48)
[2024-01-27] MEDS: ATORVASTATIN 20 MG TABLET PO (21:48)
[2024-01-27] MEDS: LATANOPROST 0.005% OP SOLN 2.5 ML BTL 1 DROP EACH EYE (21:51)
[2024-01-28] VITALS (29 sets, daily range): BP systolic 99–156; BP diastolic 25–86; PULSE 64–84; RESP 18–24; TEMP 36.4–37; O2SAT 3–100
[2024-01-28 00:36] LABS: Glucose Point of Care 103 mg/dl (65-105)
[2024-01-28] MEDS: LEVOTHYROXINE SODIUM 100 MCG TABLET PO (05:42)
[2024-01-28] MEDS: LEVOTHYROXINE SODIUM 75 MCG TABLET PO (05:43)
[2024-01-28 07:59] LABS: Hematocrit 28.9 % (37.0-47.0); Hemoglobin 8.6 g/dL (12.0-15.0); Mean Corpuscular HGB Conc 29.8 g/dl (32-36); Mean Corpuscular Hemoglobin 28.6 pg (26-34); Mean Platelet Volume 10.4 fl (7.4-10.4); Platelet Count Result 313 k/mm3 (150-375); Red Blood Count 3.01 M/mm3 (4.2-5.4); Red Cell Distribution Width 17.8 % (11.5-14.5); White Blood Count 8.3 K/mm3 (4.5-10.0)
[2024-01-28 08:20] LABS: Alanine Aminotransferase 6 U/L (6-35); Albumin Level 3.4 g/dL (3.5-5.1); Alkaline Phosphatase 104 U/L (38-126); Anion Gap 10 mmol/L (4-12); Aspartate Amino Transferase 16 U/L (14-36); Bilirubin,Total 0.4 mg/dL (0.2-1.3); Blood Urea Nitrogen 24 mg/dL (7-17); Calcium 8.4 mg/dL (8.4-10.2); Carbon Dioxide 26 mmol/L (22-30); Chloride 94 mmol/L (98-107); Estimated CRCL calculation 9 ml/min; Estimated Glomerular Filt Rate 9; Glucose 85 mg/dL (65-110); Magnesium 2.1 mg/dL (1.6-2.3); Potassium 4.3 mmol/L (3.4-5.0); Sodium 130 mmol/L (137-145)
[2024-01-28 08:23] LABS: Glucose Point of Care 81 mg/dl (65-105)
[2024-01-28 08:56] LABS: Hypochromasia 1+; Platelet Estimate Adequate (Adequate)
[2024-01-28] MEDS: SODIUM CHLORIDE 0.9% IV 1,000 ML 999 ML IV CONT (09:00)
[2024-01-28 09:44] LABS: Schistocytes None Seen
[2024-01-28] MEDS: FERROUS SULFATE 325 MG TABLET DR PO ×2 (10:56→17:20)
[2024-01-28] MEDS: CYANOCOBALAMIN 1,000 MCG TABLET 1000 MCG PO (10:57)
[2024-01-28] MEDS: DOCUSATE SODIUM 100 MG CAPSULE PO ×2 (10:57→17:20)
[2024-01-28] MEDS: busPIRone HCL 5 MG TABLET PO ×2 (10:57→17:20)
[2024-01-28] MEDS: ESCITALOPRAM OXALATE 10 MG TABLET PO (10:57)
[2024-01-28] MEDS: SPIRONOLACTONE 25 MG TABLET PO (10:57)
--- NOTE | 2024-01-28 11:15 | P.CDI_ITS ---
CDI Query Clarification Request Please specify type and acuity of heart failure if known. Clinical Indicators:increased o2 needs, hx of CHF documented. Treatment: none * Acute * Chronic * Acute on Chronic * Unknown * Systolic * Diastolic * Combined Systolic and Diastolic * Unknown <Luz Yost RN - Last Filed: 01/28/24 11:17> Provider Comments Chronic diastolic congestive heart failure <Julián Cabrera MD - Last Filed: 01/28/24 18:55>
--- NOTE | 2024-01-28 11:15 | WPDCDIQUERY2 ---
CDI Query Clarification Request Please specify type and acuity of heart failure if known. Clinical Indicators:increased o2 needs, hx of CHF documented. Treatment: none Acute Chronic Acute on Chronic Unknown Systolic Diastolic Combined Systolic and Diastolic Unknown <Luz Yost RN - Last Filed: 01/28/24 11:17> Provider Comments Chronic diastolic congestive heart failure <Julián Cabrera MD - Last Filed: 01/28/24 18:55>
--- NOTE | 2024-01-28 11:30 | PM.PNNEP ---
Progress Note: A&P Assessment and Plan (1) End stage renal disease: Code(s): N18.6 - End stage renal disease Status: Chronic Assessment and Plan: HD today continue M/W/F dialysis schedule while hospitalized follow electrolytes, volume status, and clearance (2) Acute on chronic anemia: Code(s): D64.9 - Anemia, unspecified Status: Acute Assessment and Plan: Hgb 6.7 on admission acute on chronic issue EGD (on 04/2023): Nonobstructive esophageal ring with TTS balloon dilation performed, small hiatal hernia phone at the GE junction, multiple small polyps observed in the fundus and in the body of the stomach that appeared benign, no gastritis, no ulcers, 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 colonoscopy (on 03/2022): A few diverticula were present in the sigmoid colon without perforation, abscess, or bleeding, some retained stools in the cecum and in the rectum. known history of of acute blood loss related to occult GI bleed from AVM Not amenable to fixation via colonoscopy or EGD and not appropriate surgical candidate. Has previously received transfusions without surgical/procedural intervention PRBC transfusion per protocol high dose Epogen with dialysis GI following - plan repeat EGD and possible push enteroscopy tomorrow (3) Chronic respiratory failure with hypoxia: Code(s): J96.11 - Chronic respiratory failure with hypoxia Status: Chronic Assessment and Plan: at baseline on supplemental oxygen by nasal cannula (4L) acute worsening due to anemia and mild fluid overload CXR with increasing interstitial and airspace opacities throughout both lungs which represent mild to moderate pulmonary edema and/or pneumonia; possible very small bilateral pleural effusions and cardiomegaly low suspicion for pneumonia - no cough, fever, chills, or leukocytosis (4) Anemia: Code(s): D64.9 - Anemia, unspecified Status: Chronic Assessment and Plan: chronic issue/problem partly related to ESRD but acute blood loss a concern Epogen with HD PRBC transfusion per protocol follow trend H/H (5) Hypertension: Code(s): I10 - Essential (primary) hypertension Status: Chronic Assessment and Plan: reasonable control continue home medications follow trend of hemodynamics (6) Diabetes: Qualifiers: Diabetes mellitus type: type 2 Diabetes mellitus intermodal truck driver insulin use: without intermodal truck driver use Diabetes mellitus complication status: with kidney complications Diabetes mellitus complication detail: with chronic kidney disease Chronic kidney disease stage: on chronic dialysis Qualified Code(s): E11.22 - Type 2 diabetes mellitus with diabetic chronic kidney disease; N18.6 - End stage renal disease; Z99.2 - Dependence on renal dialysis Code(s): E11.9 - Type 2 diabetes mellitus without complications Status: Chronic Assessment and Plan: follow accuchecks glycemic control per hospitalists Will continue to follow. Subjective Date/time seen: 01/28/24 11:30 Interval history: Follow-up for end stage renal disease on hemodialysis. Tolerating dialysis treatment at the time of my visit (seen on HD at 11:20AM); no apparent distress noted; tentatively scheduled for EGD with possible push enteroscopy later today given her anemia and known history of AVMs; no other issues/events overnight or earlier this morning; H/H remains relatively stable. Exam Narrative: General: elderly and chronically ill-appearing female in NAD Heart: normal S1 and S2; no rub Lungs: coarse breath sounds; decreased at bases Abdomen: soft, nondistended, positive bowel sounds Extremities: no cyanosis or clubbing; trace edema Skin: warm and intact Objective Data Vital Signs Vital Signs: Vital Signs Temp Pulse Resp BP Pulse Ox O2 Del Method O2 Flow Rate
--- NOTE | 2024-01-28 11:30 | P.PNNP_ITS ---
Progress Note: A&P Assessment and Plan (1) End stage renal disease: Code(s): N18.6 - End stage renal disease Status: Chronic Assessment and Plan: * HD today * continue M/W/F dialysis schedule while hospitalized * follow electrolytes, volume status, and clearance (2) Acute on chronic anemia: Code(s): D64.9 - Anemia, unspecified Status: Acute Assessment and Plan: * Hgb 6.7 on admission * acute on chronic issue * EGD (on 04/2023): Nonobstructive esophageal ring with TTS balloon dilation performed, small hiatal hernia phone at the GE junction, multiple small polyps observed in the fundus and in the body of the stomach that appeared benign, no gastritis, no ulcers, 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 * colonoscopy (on 03/2022): A few diverticula were present in the sigmoid colon without perforation, abscess, or bleeding, some retained stools in the cecum and in the rectum. * known history of of acute blood loss related to occult GI bleed from AVM Not amenable to fixation via colonoscopy or EGD and not appropriate surgical candidate. Has previously received transfusions without surgical/procedural i ntervention * PRBC transfusion per protocol * high dose Epogen with dialysis * GI following - plan repeat EGD and possible push enteroscopy tomorrow (3) Chronic respiratory failure with hypoxia: Code(s): J96.11 - Chronic respiratory failure with hypoxia Status: Chronic Assessment and Plan: * at baseline * on supplemental oxygen by nasal cannula (4L) * acute worsening due to anemia and mild fluid overload * CXR with increasing interstitial and airspace opacities throughout both lungs which represent mild to moderate pulmonary edema and/or pneumonia; possible very small bilateral pleural effusions and cardiomegaly * low suspicion for pneumonia - no cough, fever, chills, or leukocytosis (4) Anemia: Code(s): D64.9 - Anemia, unspecified Status: Chronic Assessment and Plan: * chronic issue/problem * partly related to ESRD but acute blood loss a concern * Epogen with HD * PRBC transfusion per protocol * follow trend H/H (5) Hypertension: Code(s): I10 - Essential (primary) hypertension Status: Chronic Assessment and Plan: * reasonable control * continue home medications * follow trend of hemodynamics (6) Diabetes: Qualifiers: Diabetes mellitus type: type 2 Diabetes mellitus long term care social worker insulin use: without long term care social worker use Diabetes mellitus complication status: with kidney complications Diabetes mellitus complication detail: with chronic kidney disease Chronic kidney disease stage: on chronic dialysis Qualified Code(s): E11.22 - Type 2 diabetes mellitus with diabetic chronic kidney disease; N18.6 - End stage renal disease; Z99.2 - Dependence on renal dialysis Code(s): E11.9 - Type 2 diabetes mellitus without complications Status: Chronic Assessment and Plan: * follow accuchecks * glycemic control per hospitalists Will continue to follow. Subjective Date/time seen: 01/28/24 11:30 Interval history: Follow-up for end stage renal disease on hemodialysis. Tolerating dialysis treatment at the time of my visit (seen on HD at 11:20AM); no apparent distress noted; tentatively scheduled for EGD with possible push enteroscopy later today given her anemia and known history of AVMs; no other issues/events overnight or earlier this morning; H/H remains relatively stable
[2024-01-28] MEDS: EPOETIN ALFA-EPBX 10,000 UNITS/ML VIAL 10000 UNITS IV PUSH (12:07)
--- NOTE | 2024-01-28 12:53 | PM.IMPN ---
Progress Note: A&P Assessment and Plan (1) Acute on chronic anemia: Code(s): D64.9 - Anemia, unspecified Status: Acute (2) End-stage renal disease on hemodialysis: Code(s): N18.6 - End stage renal disease; Z99.2 - Dependence on renal dialysis Status: Chronic (3) Chronic respiratory failure with hypoxia: Code(s): J96.11 - Chronic respiratory failure with hypoxia Status: Chronic (4) Diabetes: Qualifiers: Diabetes mellitus type: type 2 Diabetes mellitus meterman insulin use: without assisted use Diabetes mellitus complication status: with kidney complications Diabetes mellitus complication detail: with chronic kidney disease Chronic kidney disease stage: on chronic dialysis Qualified Code(s): E11.22 - Type 2 diabetes mellitus with diabetic chronic kidney disease; N18.6 - End stage renal disease; Z99.2 - Dependence on renal dialysis Code(s): E11.9 - Type 2 diabetes mellitus without complications Status: Chronic (5) HTN (hypertension): Qualifiers: Hypertension type: primary hypertension Qualified Code(s): I10 - Essential (primary) hypertension Code(s): I10 - Essential (primary) hypertension Status: Chronic Plan This is an 88-year-old female who presents to the ED via EMS with report of abnormal labs. She is a resident of [facility]. Patient had labs drawn on Sunday which showed an abnormally low hemoglobin and was sent here for further evaluation. Patient denied any recent rectal bleeding or melena. See did report nausea and lower abdominal pain. On ED evaluation her vitals were stable. Hemoglobin was 6.1 in the outside lab. Grossly melanotic stool on examination stool was guaiac positive as well. No new history of GI bleed related to AVM that are not amenable to fixation via colonoscopy or EGD. Not a surgical candidate either. Had been requiring blood transfusion p.r.n. related to this in the past. Laboratory evaluation in the hospital showed hemoglobin of 6.1 creatinine of 4.2 related to her end-stage renal disease. INR was 1.1 PTT 30.4 LFTs were normal. Abdominal CT showed stercoral colitis. 2 units of packed red blood cells were ordered and transfused. Post transfusion hemoglobin adequate at 8. GI has been consulted for further recommendations. Patient continued on PPI. 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 Colonoscopy 03/25 with few diverticula present in sigmoid colon without perforation abscess or bleeding some retained stools in the cecum and rectum. The EGD with push enteroscopy planned today. H&H remained stable post transfusion. End-stage renal disease on hemodialysis Sunday nephrology on board Congestive heart failure Hypertension Chronic hypoxic respiratory failure on oxygen nasal cannula. Chest x-ray showed increasing interstitial and airspace opacities throughout both lungs which with represent mild to moderate pulmonary edema and/or pneumonia. Possible very small bilateral pleural effusions. Cardiomegaly. Hyperlipidemia Hypothyroidism History of GI bleed related to AVMs COPD Chronic anemia Pulmonary hypertension Renal osteodystrophy Osteoarthritis GERD COPD Anxiety depression Type 2 diabetes on diet control Code status do not resuscitate DVT prophylaxis SCDs pharmacologic prophylaxis contraindicated due to anemia. Subjective Date/time seen: 01/28/24 12:53 Interval history: No overnight events. Labs reviewed. Going for EGD today. Wants to go home. Review of Systems Review of Systems: All systems reviewed & are unremarkable except as noted in HPI and below Exam Narrative: GENERAL: Eld
--- NOTE | 2024-01-28 12:57 | PCPTNOTE ---
On 01/28/24, the student, [Rosina Pacheco], provided care and completed [facility] documentation on this patient. I have reviewed the student's documentation and agree with the findings.
[2024-01-28 13:49] LABS: Glucose Point of Care 58 mg/dl (65-105)
[2024-01-28] MEDS: SODIUM CHLORIDE 0.9% IV 500 ML 10 ML IV CONT (13:52)
[2024-01-28] MEDS: DEXTROSE 50% 25 GM/50 ML SYRINGE IV PUSH (13:54)
--- NOTE | 2024-01-28 14:07 | WPDANESEPPF ---
Anes - Initial Pre Proc Eval Procedure: Operation Date: 01/28/24 16:30 Proposed Procedures p Esophagogastroduodenoscopy - Home Dominguez MD Date/Time: 01/28/24 14:07 Surgeon: Carlitos Rodriguez MD Pre Op Diagnosis: GIB/Anemia/Stercoral Colitis/ESRD on HD Patient Data Age: 88 Gender: F Height: 1.78 m Weight: 73.5 kg Last Vital Signs Temp 97.6 F 01/28/24 14:00 Pulse 72 01/28/24 14:00 Resp 20 01/28/24 14:00 BP 147/46 H 01/28/24 14:00 Pulse Ox 3 L 01/28/24 14:00 O2 Del Method Nasal Cannula 01/28/24 14:00 O2 Flow Rate 3 01/28/24 14:00 FiO2 100 01/28/24 09:07 Allergies Allergy/AdvReac Type Severity Reaction Status Date / Time adhesive tape Allergy Unknown PLASTIC Verified 01/28/24 13:56 TAPE hydrochlorothiazide Allergy Unknown Verified 01/28/24 13:56 latex Allergy Rash Verified 01/28/24 13:56 Home Medications Medication Instructions Recorded Confirmed Type atorvastatin 20 mg tablet 20 mg PO HS 06/22/21 01/25/24 History latanoprost 0.005 % eye drops 1 drp EACH EYE HS 06/22/21 01/25/24 History spironolactone 25 mg tablet 25 mg PO DAILY 06/22/21 01/25/24 History polyethylene glycol 3350 17 gram 17 g PO DAILY PRN constipation #14 05/11/22 01/25/24 Rx oral powder packet (Miralax) ea albuterol sulfate 2.5 mg/3 mL 2.5 mg (3 mL) inhalation Q6HRT PRN 06/16/22 01/25/24 Rx (0.083 %) solution for nebulization shortness of breath #7 mL acetaminophen 650 mg tablet 650 mg PO Q6H PRN Pain (Scale 07/21/22 01/25/24 History Score 1-3) buspirone 7.5 mg tablet 5 mg PO BID 07/21/22 01/25/24 History sevelamer carbonate 0.8 gram oral 0.8 g PO TID 01/19/23 01/25/24 History powder packet (Renvela) escitalopram oxalate 10 mg tablet 10 mg PO DAILY 04/10/23 01/25/24 History levothyroxine 125 mcg tablet 175 mcg PO DAILY@0630 04/30/23 01/25/24 History (Synthroid) epoetin violetta 4,000 unit/mL 4,000 unit subcut 3XW #10 mL 05/03/23 01/25/24 Rx injection solution (Epogen) docusate sodium 100 mg capsule 100 mg PO BID 07/04/23 01/25/24 History ferrous sulfate 325 mg (65 mg 324 mg PO BID 07/04/23 01/25/24 History iron) tablet meclizine 25 mg tablet 25 mg PO QID PRN Dizziness Or 11/16/23 01/25/24 History Vertigo melatonin 3 mg tablet 3 mg PO HS 11/16/23 01/25/24 History menthol-zinc oxide 0.2 %-20 % 1 applic topical BID PRN Skin 11/16/23 01/25/24 History topical paste (Remedy Calazime Irritation Protect Paste) pantoprazole 40 mg tablet,delayed 40 mg PO DAILY 11/16/23 01/25/24 History release amlodipine 5 mg tablet (Norvasc) 10 mg PO DAILY 11/17/23 01/25/24 History cyanocobalamin (vitamin B-12) 1,000 mcg PO DAILY 11/17/23 01/25/24 History 1,000 mcg tablet (Vitamin B-12) lisinopril 20 mg tablet 20 mg PO DAILY 11/17/23 01/25/24 History Laboratory Tests 01/27/24 01/27/24 01/28/24 17:38 20:42 07:39 WBC 8.3 K/mm3 (4.5-10.0) RBC 3.01 L M/mm3 (4.2-5.4) Hgb 8.6 L g/dL (12.0-15.0) Hct 28.9 L % (37.0-47.0) MCV 96.0 fl (80-100) MCH 28.6 pg (26-34) MCHC 29.8 L g/dl (32-36) RDW 17.8 H % (11.5-14.5) Plt Count 313 k/mm3 (150-375) MPV 10.4 fl (7.4-10.4) Immature Gran % (Auto) Not Reportable Neut % (Auto) Not Reportable Lymph % (Auto) Not Reportable Grady % (Auto) Not Reportable Eos % (Auto) Not Reportable Baso % (Auto) Not Reportable Lymph # (Auto) Not Reportable Grady # (Auto) Not Reportable Eos # (Auto) Not Reportable Baso # (Auto) Not Reportable Abs Immat Gran (auto) Not Reportable Absolute Neuts (auto) Not Reportable Absolute Nucleated RBC Not Reportable Nucleated RBC % Not Reportable Abs Neuts (Manual) 85.00 H K/mm3 (1.7-7.2) Abs Lymphs (Manual) 3.00 K/mm3 (1.1
[2024-01-28 14:24] LABS: Glucose Point of Care 94 mg/dl (65-105)
[2024-01-28] MEDS: ONDANSETRON INJ 4 MG/2 ML VIAL IV PUSH (14:45)
[2024-01-28 14:59] LABS: Glucose Point of Care 89 mg/dl (65-105)
[2024-01-28] MEDS: amLODIPine BESYLATE 10 MG TABLET PO (15:35)
[2024-01-28] MEDS: PANTOPRAZOLE SODIUM IV 40 MG VIAL IV PUSH ×2 (15:35→21:43)
[2024-01-28] MEDS: lisinopriL 20 MG TABLET PO (15:35)
[2024-01-28] MEDS: Non-Formulary (sevelamer carbonate 0.8 gram ORAL powder in packet) 1 EACH PO (17:21)
[2024-01-28 17:45] LABS: Glucose Point of Care 93 mg/dl (65-105)
[2024-01-28] MEDS: MELATONIN 3 MG TABLET PO (21:43)
[2024-01-28] MEDS: ATORVASTATIN 20 MG TABLET PO (21:43)
[2024-01-28] MEDS: LATANOPROST 0.005% OP SOLN 2.5 ML BTL 1 DROP EACH EYE (21:52)
[2024-01-29] VITALS (8 sets, daily range): BP systolic 108–115; BP diastolic 30–52; PULSE 57–75; RESP 14–16; TEMP 36.1–36.6; O2SAT 94–97
[2024-01-29 00:53] LABS: Glucose Point of Care 84 mg/dl (65-105)
[2024-01-29] MEDS: LEVOTHYROXINE SODIUM 75 MCG TABLET PO (05:39)
[2024-01-29] MEDS: LEVOTHYROXINE SODIUM 100 MCG TABLET PO (05:39)
[2024-01-29 07:45] LABS: Glucose Point of Care 67 mg/dl (65-105)
[2024-01-29 08:19] LABS: Glucose Point of Care 70 mg/dl (65-105)
[2024-01-29] MEDS: busPIRone HCL 5 MG TABLET PO ×2 (09:13→16:07)
[2024-01-29] MEDS: PANTOPRAZOLE SODIUM IV 40 MG VIAL IV PUSH (09:13)
[2024-01-29] MEDS: CYANOCOBALAMIN 1,000 MCG TABLET 1000 MCG PO (09:13)
[2024-01-29] MEDS: amLODIPine BESYLATE 10 MG TABLET PO (09:13)
[2024-01-29] MEDS: DOCUSATE SODIUM 100 MG CAPSULE PO ×2 (09:13→16:07)
[2024-01-29] MEDS: SPIRONOLACTONE 25 MG TABLET PO (09:13)
[2024-01-29] MEDS: lisinopriL 20 MG TABLET PO (09:13)
[2024-01-29] MEDS: ESCITALOPRAM OXALATE 10 MG TABLET PO (09:13)
[2024-01-29] MEDS: FERROUS SULFATE 325 MG TABLET DR PO ×2 (09:13→16:07)
[2024-01-29] MEDS: Non-Formulary (sevelamer carbonate 0.8 gram ORAL powder in packet) 1 EACH PO ×3 (09:14→16:07)
[2024-01-29 10:40] LABS: Basophils Absolute Auto 0.1 K/mm3 (0.0-0.1); Basophils Percent Auto 0.8 % (0.2-1.2); Eosinophils Absolute Auto 0.3 K/mm3 (0-0.3); Eosinophils Percent Auto 5.1 % (0-4.4); Hematocrit 29.2 % (37.0-47.0); Hemoglobin 8.5 g/dL (12.0-15.0); Immature Granulocyte Percent A 1.5 % (0-0.5); Lymphocytes Absolute Auto 0.28 K/mm3 (0.9-3.2); Lymphocytes Percent Auto 4.3 % (18.3-44.2); Mean Corpuscular HGB Conc 29.1 g/dl (32-36); Mean Corpuscular Hemoglobin 28.6 pg (26-34); Mean Corpuscular Volume 98.3 fl (80-100); Mean Platelet Volume 10.4 fl (7.4-10.4); Monocytes Absolute Auto 0.6 K/mm3 (0.1-0.6); Monocytes Percent Auto 9.6 % (2.6-8.5); Neutrophils Absolute Auto 5.1 K/mm3 (1.3-6.7); Neutrophils Percent Auto 78.7 % (45.5-73.1); Platelet Count Result 266 k/mm3 (150-375); Red Blood Count 2.97 M/mm3 (4.2-5.4); Red Cell Distribution Width 18.6 % (11.5-14.5); White Blood Count 6.5 K/mm3 (4.5-10.0)
[2024-01-29 10:58] LABS: Alanine Aminotransferase 7 U/L (6-35); Albumin Level 3.2 g/dL (3.5-5.1); Alkaline Phosphatase 87 U/L (38-126); Anion Gap 10 mmol/L (4-12); Aspartate Amino Transferase 16 U/L (14-36); Bilirubin,Total 0.3 mg/dL (0.2-1.3); Blood Urea Nitrogen 17 mg/dL (7-17); Calcium 8.2 mg/dL (8.4-10.2); Carbon Dioxide 27 mmol/L (22-30); Chloride 97 mmol/L (98-107); Estimated CRCL calculation 11 ml/min; Estimated Glomerular Filt Rate 12; Glucose 141 mg/dL (65-110); Magnesium 2.1 mg/dL (1.6-2.3); Potassium 3.7 mmol/L (3.4-5.0); Sodium 134 mmol/L (137-145)
[2024-01-29 11:03] LABS: Anisocytosis 1+; Hypochromasia 1+; Platelet Estimate Adequate (Adequate)
[2024-01-29 11:04] LABS: Schistocytes None Seen
--- NOTE | 2024-01-29 11:09 | P.PNNP_ITS ---
Progress Note: A&P Assessment and Plan (1) End stage renal disease: Code(s): N18.6 - End stage renal disease Status: Chronic Assessment and Plan: * HD tomorrow * continue M/W/F dialysis schedule while hospitalized * follow electrolytes, volume status, and clearance (2) Acute on chronic anemia: Code(s): D64.9 - Anemia, unspecified Status: Acute Assessment and Plan: * Hgb 6.7 on admission * acute on chronic issue * EGD (on 04/2023): Nonobstructive esophageal ring with TTS balloon dilation performed, small hiatal hernia phone at the GE junction, multiple small polyps observed in the fundus and in the body of the stomach that appeared benign, no gastritis, no ulcers, 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 * colonoscopy (on 03/2022): A few diverticula were present in the sigmoid colon without perforation, abscess, or bleeding, some retained stools in the cecum and in the rectum. * known history of of acute blood loss related to occult GI bleed from AVM Not amenable to fixation via colonoscopy or EGD and not appropriate surgical candidate. Has previously received transfusions without surgical/procedural intervention * PRBC transfusion per protocol * high dose Epogen with dialysis * GI following - repeat EGD with dudodenal AVM but no active bleeding. (3) Chronic respiratory failure with hypoxia: Code(s): J96.11 - Chronic respiratory failure with hypoxia Status: Chronic Assessment and Plan: * at baseline * on supplemental oxygen by nasal cannula (4L) * acute worsening due to anemia and mild fluid overload * CXR with increasing interstitial and airspace opacities throughout both lungs which represent mild to moderate pulmonary edema and/or pneumonia; possible very small bilateral pleural effusions and cardiomegaly * low suspicion for pneumonia - no cough, fever, chills, or leukocytosis (4) Anemia: Code(s): D64.9 - Anemia, unspecified Status: Chronic Assessment and Plan: * chronic issue/problem * partly related to ESRD but acute blood loss a concern * Epogen with HD * PRBC transfusion per protocol * follow trend H/H (5) Hypertension: Code(s): I10 - Essential (primary) hypertension Status: Chronic Assessment and Plan: * reasonable control * continue home medications * follow trend of hemodynamics (6) Diabetes: Qualifiers: Diabetes mellitus type: type 2 Diabetes mellitus halfway insulin use: without halfway use Diabetes mellitus complication status: with kidney complications Diabetes mellitus complication detail: with chronic kidney disease Chronic kidney disease stage: on chronic dialysis Qualified Code(s): E11.22 - Type 2 diabetes mellitus with diabetic chronic kidney disease; N18.6 - End stage renal disease; Z99.2 - Dependence on renal dialysis Code(s): E11.9 - Type 2 diabetes mellitus without complications Status: Chronic Assessment and Plan: * follow accuchecks * glycemic control per hospitalists Not opposed to discharge from renal perspective if otherwise medically stable; her primary supervisor concrete stone fabricating can follow-up with her at her outpatient dialysis center. Will continue to follow. Subjective Date/time seen: 01/29/24 11:09 Interval history: Follow-up for end stage renal disease on hemodialysis. Tolerated dialysis treatment yesterday morning without any issues or problems; s/p EGD yesterday with findings noted; H/H remains relati
--- NOTE | 2024-01-29 11:09 | PM.PNNEP ---
Progress Note: A&P Assessment and Plan (1) End stage renal disease: Code(s): N18.6 - End stage renal disease Status: Chronic Assessment and Plan: HD tomorrow continue M/W/F dialysis schedule while hospitalized follow electrolytes, volume status, and clearance (2) Acute on chronic anemia: Code(s): D64.9 - Anemia, unspecified Status: Acute Assessment and Plan: Hgb 6.7 on admission acute on chronic issue EGD (on 04/2023): Nonobstructive esophageal ring with TTS balloon dilation performed, small hiatal hernia phone at the GE junction, multiple small polyps observed in the fundus and in the body of the stomach that appeared benign, no gastritis, no ulcers, 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 colonoscopy (on 03/2022): A few diverticula were present in the sigmoid colon without perforation, abscess, or bleeding, some retained stools in the cecum and in the rectum. known history of of acute blood loss related to occult GI bleed from AVM Not amenable to fixation via colonoscopy or EGD and not appropriate surgical candidate. Has previously received transfusions without surgical/procedural intervention PRBC transfusion per protocol high dose Epogen with dialysis GI following - repeat EGD with dudodenal AVM but no active bleeding. (3) Chronic respiratory failure with hypoxia: Code(s): J96.11 - Chronic respiratory failure with hypoxia Status: Chronic Assessment and Plan: at baseline on supplemental oxygen by nasal cannula (4L) acute worsening due to anemia and mild fluid overload CXR with increasing interstitial and airspace opacities throughout both lungs which represent mild to moderate pulmonary edema and/or pneumonia; possible very small bilateral pleural effusions and cardiomegaly low suspicion for pneumonia - no cough, fever, chills, or leukocytosis (4) Anemia: Code(s): D64.9 - Anemia, unspecified Status: Chronic Assessment and Plan: chronic issue/problem partly related to ESRD but acute blood loss a concern Epogen with HD PRBC transfusion per protocol follow trend H/H (5) Hypertension: Code(s): I10 - Essential (primary) hypertension Status: Chronic Assessment and Plan: reasonable control continue home medications follow trend of hemodynamics (6) Diabetes: Qualifiers: Diabetes mellitus type: type 2 Diabetes mellitus assistant director of admissions insulin use: without long-term use Diabetes mellitus complication status: with kidney complications Diabetes mellitus complication detail: with chronic kidney disease Chronic kidney disease stage: on chronic dialysis Qualified Code(s): E11.22 - Type 2 diabetes mellitus with diabetic chronic kidney disease; N18.6 - End stage renal disease; Z99.2 - Dependence on renal dialysis Code(s): E11.9 - Type 2 diabetes mellitus without complications Status: Chronic Assessment and Plan: follow accuchecks glycemic control per hospitalists Not opposed to discharge from renal perspective if otherwise medically stable; her primary log chipper can follow-up with her at her outpatient dialysis center. Will continue to follow. Subjective Date/time seen: 01/29/24 11:09 Interval history: Follow-up for end stage renal disease on hemodialysis. Tolerated dialysis treatment yesterday morning without any issues or problems; s/p EGD yesterday with findings noted; H/H remains relatively stable at this time; no acute issues/events overnight or earlier this morning. Exam Narrative: General: elderly and chronically ill-appearing female in NAD Heart: normal S1 and S2; no rub Lungs: coarse breath sounds; decreased at bases Abdomen: soft, nondistended, positive bowel sounds Extremities: no cyanosis or clubbing; trace edema Skin: no rash Objective Data Vital Signs Vital Signs: Vital Signs
[2024-01-29] MEDS: ONDANSETRON INJ 4 MG/2 ML VIAL IV PUSH (11:16)
[2024-01-29] MEDS: MECLIZINE HCL 25 MG TABLET PO (11:16)
[2024-01-29 11:34] LABS: Glucose Point of Care 150 mg/dl (65-105)
--- NOTE | 2024-01-29 13:30 | PM.DS ---
DS: Admitting Diagnosis Discharge Date 01/29/2024 Admitting Diagnosis Melena DS: Discharge Diagnosis Discharge Diagnosis (1) Acute on chronic anemia: Code(s): D64.9 - Anemia, unspecified Status: Acute (2) End-stage renal disease on hemodialysis: Code(s): N18.6 - End stage renal disease; Z99.2 - Dependence on renal dialysis Status: Chronic (3) Chronic respiratory failure with hypoxia: Code(s): J96.11 - Chronic respiratory failure with hypoxia Status: Chronic (4) Diabetes: Qualifiers: Diabetes mellitus type: type 2 Diabetes mellitus penitentiary insulin use: without buttermaker helper use Diabetes mellitus complication status: with kidney complications Diabetes mellitus complication detail: with chronic kidney disease Chronic kidney disease stage: on chronic dialysis Qualified Code(s): E11.22 - Type 2 diabetes mellitus with diabetic chronic kidney disease; N18.6 - End stage renal disease; Z99.2 - Dependence on renal dialysis Code(s): E11.9 - Type 2 diabetes mellitus without complications Status: Chronic (5) HTN (hypertension): Qualifiers: Hypertension type: primary hypertension Qualified Code(s): I10 - Essential (primary) hypertension Code(s): I10 - Essential (primary) hypertension Status: Chronic DS: Summary Hospital Course Hospital Course: This is an 88-year-old female who presents to the ED via EMS with report of abnormal labs. She is a resident of [facility]. Patient had labs drawn on Sunday which showed an abnormally low hemoglobin and was sent here for further evaluation. Patient denied any recent rectal bleeding or melena. See did report nausea and lower abdominal pain. On ED evaluation her vitals were stable. Hemoglobin was 6.1 in the outside lab. Grossly melanotic stool on examination stool was guaiac positive as well. No new history of GI bleed related to AVM that are not amenable to fixation via colonoscopy or EGD. Not a surgical candidate either. Had been requiring blood transfusion p.r.n. related to this in the past. Laboratory evaluation in the hospital showed hemoglobin of 6.1 creatinine of 4.2 related to her end-stage renal disease. INR was 1.1 PTT 30.4 LFTs were normal. Abdominal CT showed stercoral colitis. 2 units of packed red blood cells were ordered and transfused. Post transfusion hemoglobin adequate at 8. GI has been consulted for further recommendations. Patient continued on PPI. 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 Colonoscopy 03/25 with few diverticula present in sigmoid colon without perforation abscess or bleeding some retained stools in the cecum and rectum. The EGD with push enteroscopy performed 01/28/2024 which showed findings of gastritis and duodenal AVM. AVMs were not actively bleeding. The lesion in the 2nd part of duodenum was ablated with APC. Unable to advance the jejunum to look for more a AVMs. H&H remained stable post transfusion. Hemodynamically stable and will be discharged home to follow-up as an outpatient basis End-stage renal disease on hemodialysis Sunday nephrology on board Congestive heart failure Hypertension Chronic hypoxic respiratory failure on oxygen nasal cannula. Chest x-ray showed increasing interstitial and airspace opacities throughout both lungs which with represent mild to moderate pulmonary edema and/or pneumonia. Possible very small bilateral pleural effusions. Cardiomegaly. Hyperlipidemia Hypothyroidism History of GI bleed related to AVMs COPD Chronic anemia Pulmonary hypertension Renal osteodystrophy Osteoarthritis GERD COPD Anxiety depression Type 2 diabetes
--- NOTE | 2024-01-29 14:02 | WPDANESPN ---
Anes - Prog Note Post-Op Date/Time: 01/29/24 14:02 Vital Signs: Last Vital Signs Temp 36.6 C 01/29/24 06:00 Pulse 61 01/29/24 12:00 Resp 16 01/29/24 06:00 BP 115/52 L 01/29/24 06:00 Pulse Ox 97 01/29/24 09:13 O2 Del Method Nasal Cannula 01/29/24 09:13 O2 Flow Rate 3 01/29/24 09:13 FiO2 32 01/29/24 08:23 Pain Score (VAS): 0 I/O: Intake & Output 01/28/24 01/29/24 01/29/24 23:59 07:59 15:59 Intake Total 120 358 Balance 120 358 Laboratory Tests 01/29/24 10:19 01/29/24 10:19 01/28/24 01/28/24 01/28/24 14:21 14:56 17:18 WBC RBC Hgb Hct MCV MCH MCHC RDW Plt Count MPV Immature Gran % (Auto) Neut % (Auto) Lymph % (Auto) [place] % (Auto) Eos % (Auto) Baso % (Auto) Lymph # (Auto) [place] # (Auto) Eos # (Auto) Baso # (Auto) Abs Immat Gran (auto) Absolute Neuts (auto) Absolute Nucleated RBC Nucleated RBC % Platelet Estimate Hypochromasia Anisocytosis Schistocytes Sodium Potassium Chloride Carbon Dioxide Anion Gap BUN Creatinine Estim Creat Clear Calc Estimated GFR Glucose POC Capillary Glucose 94 89 93 Calcium Magnesium Total Bilirubin AST ALT Alkaline Phosphatase Total Protein Albumin 01/28/24 01/29/24 01/29/24 23:47 07:43 08:10 WBC RBC Hgb Hct MCV MCH MCHC RDW Plt Count MPV Immature Gran % (Auto) Neut % (Auto) Lymph % (Auto) [place] % (Auto) Eos % (Auto) Baso % (Auto) Lymph # (Auto) [place] # (Auto) Eos # (Auto) Baso # (Auto) Abs Immat Gran (auto) Absolute Neuts (auto) Absolute Nucleated RBC Nucleated RBC % Platelet Estimate Hypochromasia Anisocytosis Schistocytes Sodium Potassium Chloride Carbon Dioxide Anion Gap BUN Creatinine Estim Creat Clear Calc Estimated GFR Glucose POC Capillary Glucose 84 67 70 Calcium Magnesium Total Bilirubin AST ALT Alkaline Phosphatase Total Protein Albumin 01/29/24 01/29/24 10:19 11:31 WBC 6.5 RBC 2.97 L Hgb 8.5 L Hct 29.2 L MCV 98.3 MCH 28.6 MCHC 29.1 L RDW 18.6 H Plt Count 266 MPV 10.4 Immature Gran % (Auto) 1.5 H Neut % (Auto) 78.7 H Lymph % (Auto) 4.3 L [place] % (Auto) 9.6 H Eos % (Auto) 5.1 H Baso % (Auto) 0.8 Lymph # (Auto) 0.28 L [place] # (Auto) 0.6 Eos # (Auto) 0.3 Baso # (Auto) 0.1 Abs Immat Gran (auto) 0.10 H Absolute Neuts (auto) 5.1 Absolute Nucleated RBC 0.000 Nucleated RBC % 0.0 Platelet Estimate Adequate Hypochromasia 1+ Anisocytosis 1+ Schistocytes None seen Sodium 134 L Potassium 3.7 Chloride 97 L Carbon Dioxide 27 Anion Gap 10 BUN 17 Creatinine 3.50 H Estim Creat Clear Calc 11 Estimated GFR 12 L Glucose 141 H POC Capillary Glucose 150 H Calcium 8.2 L Magnesium 2.1 Total Bilirubin 0.3 AST 16 ALT 7 Alkaline Phosphatase 87 Total Protein 6.0 L Albumin 3.2 L Patient Feedback: Patient satisfied with anesthetic care.
[2024-01-29 16:16] LABS: Glucose Point of Care 77 mg/dl (65-105)
== END 2024-01-29 16:50 | DRG 811 ==
LOC: ANHED 10:30 → ANH3MEDSUR 13:27
PROVIDERS: Internal Medicine Gastroenterology; Internal Medicine Nephrology; Student in an Organized Health Care Education/Training Program; Admitting Provider Family Medicine; Emergency Provider Physician Assistant; PCP Internal Medicine; Visit Provider Internal Medicine
PROC: 0DJ08ZZ Inspection of Upper Intestinal Tract, Via Natural or Artificial Opening Endoscopic (ICD-10-PCS; CPT 43235; principal; 2024-01-28 16:30)
DX: D62 Acute posthemorrhagic anemia (principal); N18.6 End stage renal disease; I13.2 Hypertensive heart and chronic kidney disease with heart failure and with stage 5 chronic kidney disease, or end stage renal disease; J96.11 Chronic respiratory failure with hypoxia; I50.32 Chronic diastolic (congestive) heart failure; K92.1 Melena; K29.70 Gastritis, unspecified, without bleeding; K31.819 Angiodysplasia of stomach and duodenum without bleeding; E11.22 Type 2 diabetes mellitus with diabetic chronic kidney disease; J44.9 Chronic obstructive pulmonary disease, unspecified; K52.89 Other specified noninfective gastroenteritis and colitis; E03.9 Hypothyroidism, unspecified; H40.9 Unspecified glaucoma; E78.5 Hyperlipidemia, unspecified; M19.90 Unspecified osteoarthritis, unspecified site; D63.1 Anemia in chronic kidney disease; N25.0 Renal osteodystrophy; E55.9 Vitamin D deficiency, unspecified; K21.9 Gastro-esophageal reflux disease without esophagitis; F41.8 Other specified anxiety disorders; Z66 Do not resuscitate; Z99.2 Dependence on renal dialysis; Z99.81 Dependence on supplemental oxygen; Z86.16 Personal history of COVID-19; Z87.891 Personal history of nicotine dependence
CPT/HCPCS: 36415; 36430; 71046; 74176; 80053; 82607; 82728; 82746; 82948; 83540; 83550; 83605; 83735; 84100; 85014; 85018; 85025; 85610; 85730; 86706; 86850; 86900; 86901; 86923; 87340; 94640; 96361; 96374; 97161; 99285; A9270; G0257; G0378; J2003; J2405; J2470; J2704; J7030; J7040; J7050; P9016; Q5105

== ENCOUNTER 2024-01-29 20:14 | Inpatient (IN) | payer MEDICARE, MEDICAID, SELFPAY ==
[2024-01-29] VITALS (26 sets, daily range): BP systolic 113–135; BP diastolic 36–104; PULSE 57–92; RESP 14–24; TEMP 36.6–36.9; O2SAT 80–100
--- NOTE | ~2024-01-29 | XR_ITS ---
EXAMINATION: XR chest 1V portable DATE: 01/29/2024 21:52 INDICATION: Shortness of breath. TECHNIQUE: A single frontal view of the chest was obtained. COMPARISON: Chest 2 views 01/25/2024, CT abdomen and pelvis 01/25/2024, chest CT 03/20/2023 FINDINGS: There is a diffuse interstitial pattern in the lungs. There are airspace opacities in all l eft lung zones. There are small pleural effusions. No pneumothorax. Cardiomegaly is noted. IMPRESSION: 1. Stable diffuse lung disease, likely a combination of mild pulmonary edema and chronic left lung di sease. 2. Small pleural effusions. 3. Cardiomegaly. Reviewed, dictated and finalized at location A. IMPRESSION: 1. Stable diffuse lung disease, likely a combination of mild pulmonary edema an d chronic left lung disease. 2. Small pleural effusions. 3. Cardiomegaly.
--- NOTE | ~2024-01-29 | XR_ITS ---
Portable chest x-ray Comparison: 01/29/2024 Clinical History: Fluid overload Findings: There is probable mild alveolar and interstitial pulmonary edema versus chronic interstiti al disease. Small right pleural effusion noted. Cardiomediastinal silhouette is stable. Bones and sof t tissues are unremarkable. Impression: Probable mild pulmonary edema versus chronic interstitial disease. Small right pleural effusion. Stable cardiomegaly. Reviewed, dictated and finalized at [facility]. Impression: Probable mild pulmonary edema versus chronic interstitial disease. Small right pleural effusion. Stable cardiomegaly.
--- NOTE | ~2024-01-29 | NM_ITS ---
EXAMINATION: NM pulmonary perfusion DATE: 01/30/2024 15:25 INDICATION: Hypoxia. TECHNIQUE: 5.1 mCi Tc-99m MAA was administered intravenously for perfusion images. Scintigraphic carlee ges of the chest were obtained. COMPARISON: Chest single view 01/29/2024, VQ scan 03/20/2023 FINDINGS: There are large defects in the lower lobes matched with chest radiograph abnormalities. IMPRESSION: 1. Nondiagnostic (intermediate probability for pulmonary embolism). Reviewed, dictated and finalized at location A.
--- NOTE | 2024-01-29 20:27 | ECG_ITS ---
Test Date: 2024-01-29 20:20:25 Measurements Intervals [place] Rate: 73 P: 28 KS: 190 QRS: -20 QRSD: 136 T: 132 QT: 412 QTc: 455 Interpretive Statements SINUS RHYTHM WITH OCCASIONAL VENTRICULAR PREMATURE COMPLEXES INTRAVENTRICULAR CONDUCTION DELAY [130+ ms QRS DURATION] LEFT VENTRICULAR HYPERTROPHY AND ST-T CHANGE [VOLTAGE CRITERIA PLUS ST/T ABNORMALITY] ABNORMAL ECG Compared to ECG 11/16/2023 18:36:20 NO DIFFERENCE Electronically Signed On 01-31-2024 12:55:06 CDT by Jose Cruz Oliver M.D.
[2024-01-29 20:39] LABS: Basophils Absolute Auto 0.1 K/mm3 (0.0-0.1); Basophils Percent Auto 0.9 % (0.2-1.2); Eosinophils Absolute Auto 0.4 K/mm3 (0-0.3); Eosinophils Percent Auto 6.3 % (0-4.4); Hematocrit 26.5 % (37.0-47.0); Hemoglobin 7.8 g/dL (12.0-15.0); Immature Granulocyte Absolute 0.07 K/mm3 (0.00-0.031); Lymphocytes Absolute Auto 0.47 K/mm3 (0.9-3.2); Lymphocytes Percent Auto 6.7 % (18.3-44.2); Mean Corpuscular HGB Conc 29.4 g/dl (32-36); Mean Corpuscular Hemoglobin 28.5 pg (26-34); Mean Corpuscular Volume 96.7 fl (80-100); Mean Platelet Volume 10.4 fl (7.4-10.4); Monocytes Absolute Auto 0.9 K/mm3 (0.1-0.6); Monocytes Percent Auto 12.3 % (2.6-8.5); Neutrophils Absolute Auto 5.1 K/mm3 (1.3-6.7); Neutrophils Percent Auto 72.8 % (45.5-73.1); Platelet Count Result 282 k/mm3 (150-375); Red Blood Count 2.74 M/mm3 (4.2-5.4); Red Cell Distribution Width 18.6 % (11.5-14.5)
[2024-01-29 20:49] LABS: Alanine Aminotransferase 6 U/L (6-35); Albumin Level 3.1 g/dL (3.5-5.1); Alkaline Phosphatase 90 U/L (38-126); Anion Gap 10 mmol/L (4-12); Aspartate Amino Transferase 28 U/L (14-36); Bilirubin,Total 0.4 mg/dL (0.2-1.3); Blood Urea Nitrogen 22 mg/dL (7-17); Calcium 8.1 mg/dL (8.4-10.2); Carbon Dioxide 27 mmol/L (22-30); Chloride 96 mmol/L (98-107); Estimated Glomerular Filt Rate 11; Glucose 75 mg/dL (65-110); Lactic Acid Reflex 0.5 mmol/L (0.7-2.0); Potassium 4.1 mmol/L (3.4-5.0); Sodium 133 mmol/L (137-145)
[2024-01-29 20:52] LABS: Alveolar/Arterial O2 Gradient 103.9 mmHg; Base Excess ABG 0.8 mEq/l (+/-2.0); Carboxyhemoglobin 1.5 % THb (0-2.0); Fractional Inspired Oxygen 36 %; HCO3 ABG 28.8 mEq/l (22.0-26.0); Methemoglobin ABG 0.3 %THb (0-1.5); Oxygen Content ABG 11.8 %vol (16.0-22.0); Oxygen Saturation ABG 92.3 % (95.0-100.0); Oxyhemoglobin 92.4 % THb (90.0-100.0); PO2 ABG 74.9 mmHg (80.0-100.0); PO2 FiO2 Ratio Arterial Blood 2.08 %; Reduced Hemoglobin 5.8 %THb (0-5.0)
[2024-01-29 20:52] LABS: Anisocytosis 1+; Hypochromasia 1+; Platelet Estimate Adequate (Adequate); Schistocytes None Seen
[2024-01-29 20:55] LABS: pH ABG 7.251 (7.350-7.450)
[2024-01-29 20:56] LABS: Device NASAL CANNULA; Modified Allen's Test Pass; PCO2 ABG 67.1 mmHg (35.0-45.0); Site Drawn RIGHT RADIAL
--- NOTE | 2024-01-29 21:03 | ED.SOB ---
HPI - SOB/Dyspnea General Chief Complaint: Shortness of Breath/Dyspnea <ANETA Ty Last Filed: 01/30/24 03:11> Stated Complaint: sob <ANETA Ty Last Filed: 01/30/24 03:11> Time Seen by Provider: 01/29/24 20:29 <ANETA Ty Last Filed: 01/30/24 03:11> Source: patient and old records reviewed <ANETA Ty Last Filed: 01/30/24 03:11> Mode of arrival: EMS <ANETA Ty Last Filed: 01/30/24 03:11> Limitations: clinical condition <ANETA Ty Last Filed: 01/30/24 03:11> History of Present Illness HPI Narrative: Patient is an 88 y/o female, with PMH of ESRD on hemodialysis MWF, CHF, HTN, COPD, chronic hypoxic resp failure on 3L, chronic anemia on Epogen, who presents to the ED via EMS with report of SOB. Patient was recently admitted to the hospital here on 01/24, discharged from hospital today back to [facility]. [facility] and was noted to have oxygen saturations in the mid 70s on her normal NC. sent here for further evaluation. EMS administered a nebulizer treatment EN route and place patient on non-rebreather mask with improvement of oxygen saturations. Oxygen on arrival 80% on 4 L nasal cannula. Patient obtunded, difficulty staying awake. <ANETA Ty Last Filed: 01/30/24 03:11> Related Data Home Medications: Home Medications Medication Instructions Recorded Confirmed atorvastatin 20 mg tablet 20 mg PO HS 06/22/21 01/29/24 latanoprost 0.005 % eye drops 1 drp EACH EYE HS 06/22/21 01/29/24 spironolactone 25 mg tablet 25 mg PO DAILY 06/22/21 01/29/24 acetaminophen 650 mg tablet 650 mg PO Q6H PRN Pain (Scale 07/21/22 01/29/24 Score 1-3) buspirone 7.5 mg tablet 5 mg PO BID 07/21/22 01/29/24 sevelamer carbonate 0.8 gram oral 0.8 g PO TID 01/19/23 01/29/24 powder packet (Renvela) escitalopram oxalate 10 mg tablet 10 mg PO DAILY 04/10/23 01/29/24 levothyroxine 125 mcg tablet 175 mcg PO DAILY@0630 04/30/23 01/29/24 (Synthroid) docusate sodium 100 mg capsule 100 mg PO BID 07/04/23 01/29/24 ferrous sulfate 325 mg (65 mg 324 mg PO BID 07/04/23 01/29/24 iron) tablet meclizine 25 mg tablet 25 mg PO QID PRN Dizziness Or 11/16/23 01/29/24 Vertigo melatonin 3 mg tablet 3 mg PO HS 11/16/23 01/29/24 menthol-zinc oxide 0.2 %-20 % 1 applic topical BID PRN Skin 11/16/23 01/29/24 topical paste (Remedy Calryime Irritation Protect Paste) pantoprazole 40 mg tablet,delayed 40 mg PO DAILY 11/16/23 01/29/24 release amlodipine 5 mg tablet (Norvasc) 10 mg PO DAILY 11/17/23 01/29/24 cyanocobalamin (vitamin B-12) 1,000 mcg PO DAILY 11/17/23 01/29/24 1,000 mcg tablet (Vitamin B-12) lisinopril 20 mg tablet 20 mg PO DAILY 11/17/23 01/29/24 <Safia Ken PA-C - Last Filed: 01/30/24 03:11> Allergies/Adverse Reactions: Allergies Allergy/AdvReac Type Severity Reaction Status Date / Time adhesive tape Allergy Unknown PLASTIC Verified 01/29/24 22:38 TAPE hydrochlorothiazide Allergy Unknown Verified 01/29/24 22:38 latex Allergy Rash Verified 01/29/24 22:38 <ANETA Ty Last Filed: 01/30/24 03:11> Review of Systems Review of Systems: ROS unobtainable: Yes unobtainable due to mental status <ANETA Ty Last Filed: 01/30/24 03:11> PMF Past Medical History Medical History: Medical History Anxiety Chronic anemia Chronic obstructive pulmonary disease Chronic respiratory failure with hypoxia On 2 to 3 liters nasal cannula. COVID-19 (06/2021) Diastolic dysfunction Diet-controlled type 2 diabetes mellitus End-stage renal disease on hemodialysis Erythropoietin deficiency anemia Gastroesophageal reflux disease Glaucoma Hyperlipidemia Hypertension Hypothyroidism Melena Osteoarthritis Pulmonary h
[2024-01-29 21:09] LABS: NT Pro B Type Natriuretic Pept > 30000 pg/mL (19.9-100); Troponin I 0.049 ng/mL (0.000-0.034)
[2024-01-29 21:21] LABS: Influenza A QL RT-PCR Negative (Negative); Influenza B QL RT-PCR Negative (Negative); RSV RNA, RT-PCR Negative (Negative); SARS-CoV-2 RNA PCR Negative (Negative)
[2024-01-29 22:57] LABS: Alveolar/Arterial O2 Gradient 127.2 mmHg; Base Excess ABG 0.2 mEq/l (+/-2.0); Carboxyhemoglobin 1.5 % THb (0-2.0); Fractional Inspired Oxygen 40 %; HCO3 ABG 28.2 mEq/l (22.0-26.0); Methemoglobin ABG 0.3 %THb (0-1.5); Oxygen Content ABG 11.5 %vol (16.0-22.0); Oxygen Saturation ABG 93.6 % (95.0-100.0); Oxyhemoglobin 93.4 % THb (90.0-100.0); PO2 ABG 80.8 mmHg (80.0-100.0); PO2 FiO2 Ratio Arterial Blood 2.02 %; Reduced Hemoglobin 4.8 %THb (0-5.0); Total Hemoglobin 8.7 g/dL (12.0-18.0)
[2024-01-29 22:58] LABS: pH ABG 7.241 (7.350-7.450)
[2024-01-29 22:59] LABS: Device BIPAP; Modified Allen's Test Pass; PCO2 ABG 67.1 mmHg (35.0-45.0); Site Drawn RIGHT RADIAL
[2024-01-29 23:00] LABS: Expiratory Pressure 6 cmH2O; Inspiratory Pressure 12 cmH2O
[2024-01-30] VITALS (53 sets, daily range): BP systolic 97–144; BP diastolic 30–95; PULSE 54–92; RESP 14–30; TEMP 36.2–37; O2SAT 93–100; BMI 24.6
--- NOTE | 2024-01-30 00:14 | PM.IMHP ---
H&P: HPI History of Present Illness Date/Time: 01/30/24 00:14 Chief Complaint: ams Narrative: This is an 88-year-old female with past medical history significant for end-stage renal disease on hemodialysis, chronic respiratory failure, with hypoxia hypercapnia, hypothyroidism, hypertension, GERD, anemia chronic disease. Patient was brought to the emergency room due to altered mental status and low oxygen saturation and shortness of breath with oxygen saturation in the 70%. In the emergency room patient was found to have oxygen saturation of 80% on oxygen by nasal cannula, obtunded. Patient was placed on BiPAP admitted for further evaluation management and treatment. EXAMINATION: XR chest 1V portable DATE: 01/29/2024 21:52 INDICATION: Shortness of breath. TECHNIQUE: A single frontal view of the chest was obtained. COMPARISON: Chest 2 views 01/25/2024, CT abdomen and pelvis 01/25/2024, chest CT 03/20/2023 FINDINGS: There is a diffuse interstitial pattern in the lungs. There are airspace opacities in all left lung zones. There are small pleural effusions. No pneumothorax. Cardiomegaly is noted. IMPRESSION: 1. Stable diffuse lung disease, likely a combination of mild pulmonary edema and chronic left lung disease. 2. Small pleural effusions. 3. Cardiomegaly. Review of Systems Review of Systems: ROS unobtainable: Yes unobtainable due to medical condition (On BiPAP) PMFSH Past Medical History Medical History Anxiety Chronic anemia Chronic obstructive pulmonary disease Chronic respiratory failure with hypoxia On 2 to 3 liters nasal cannula. COVID-19 (06/2021) Diastolic dysfunction Diet-controlled type 2 diabetes mellitus End-stage renal disease on hemodialysis Erythropoietin deficiency anemia Gastroesophageal reflux disease Glaucoma Hyperlipidemia Hypertension Hypothyroidism Melena Osteoarthritis Pulmonary hypertension Renal osteodystrophy Vitamin D deficiency Surgical History Surgical History Status post creation of arteriovenous fistula Left upper extremity. Family History Family History Other Diabetes mellitus Hypertension Social History Social History Social History: Surrogate decision maker: Amy Contreras, son. Code status: Do not resuscitate. 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 Spiritual care concerns: No Meds Home Medications and Allergies Home Medications Medication Instructions Recorded Confirmed Type atorvastatin 20 mg tablet 20 mg PO HS 06/22/21 01/29/24 History latanoprost 0.005 % eye drops 1 drp EACH EYE HS 06/22/21 01/29/24 History spironolactone 25 mg tablet 25 mg PO DAILY 06/22/21 01/29/24 History polyethylene glycol 3350 17 gram 17 g PO DAILY PRN constipation #14 05/11/22 01/29/24 Rx oral powder packet (Miralax) ea albuterol sulfate 2.5 mg/3 mL 2.5 mg (3 mL) inhalation Q6HRT PRN 06/16/22 01/29/24 Rx (0.083 %) solution for nebulization shortness of breath #7 mL acetaminophen 650 mg tablet 650 mg PO Q6H PRN Pain (Scale 07/21/22 01/29/24 History Score 1-3) buspirone 7.5 mg tablet 5 mg PO BID 07/05
[2024-01-30 00:29] LABS: Troponin I 0.054 ng/mL (0.000-0.034)
--- NOTE | 2024-01-30 03:00 | ADMGEN ---
This patient, Sofía Contreras, was admitted to IMU Room 206-01. Patient/family oriented to hospital policies and general routines including ID bracelet, bed and alarms, visiting hours, pain management, procedures, bathroom and other care routines, personal items, smoking policy, room service/diet, and visiting hours. Information on how to activate the Rapid Response Team has been discussed. Patient/Family are encouraged to report perceived risks to care and to ask questions if they do not understand what they are told or what they should do.
[2024-01-30 04:50] LABS: Hematocrit 28.3 % (37.0-47.0); Hemoglobin 8.3 g/dL (12.0-15.0)
[2024-01-30 05:09] LABS: Troponin I 0.055 ng/mL (0.000-0.034)
[2024-01-30 07:15] LABS: Hematocrit 27.6 % (37.0-47.0); Hemoglobin 8.1 g/dL (12.0-15.0)
[2024-01-30 09:12] LABS: Alveolar/Arterial O2 Gradient 117.3 mmHg; Base Excess ABG -2.9 mEq/l (+/-2.0); Fractional Inspired Oxygen 40 %; HCO3 ABG 25.3 mEq/l (22.0-26.0); Oxygen Content ABG 11.8 %vol (16.0-22.0); Oxygen Saturation ABG 95.5 % (95.0-100.0); Oxyhemoglobin 95.1 % THb (90.0-100.0); PO2 ABG 94.3 mmHg (80.0-100.0); PO2 FiO2 Ratio Arterial Blood 2.36 %; Total Hemoglobin 8.7 g/dL (12.0-18.0)
[2024-01-30 09:18] LABS: Device BIPAP; Modified Allen's Test Pass; Site Drawn RIGHT RADIAL; pH ABG 7.214 (7.350-7.450)
[2024-01-30 09:19] LABS: Expiratory Pressure 6 cmH2O; Inspiratory Pressure 18 cmH2O
[2024-01-30 10:23] LABS: Alanine Aminotransferase 6 U/L (6-35); Albumin Level 3.3 g/dL (3.5-5.1); Alkaline Phosphatase 96 U/L (38-126); Anion Gap 13 mmol/L (4-12); Aspartate Amino Transferase 13 U/L (14-36); Bilirubin,Total 0.3 mg/dL (0.2-1.3); Blood Urea Nitrogen 22 mg/dL (7-17); Calcium 8.4 mg/dL (8.4-10.2); Carbon Dioxide 25 mmol/L (22-30); Chloride 97 mmol/L (98-107); Estimated CRCL calculation 8 ml/min; Estimated Glomerular Filt Rate 9; Glucose 64 mg/dL (65-110); Potassium 3.8 mmol/L (3.4-5.0); Sodium 135 mmol/L (137-145)
--- NOTE | 2024-01-30 10:42 | PC.NURSE ---
Attempted to wean patient off the Bi-pap per order from [facility]. Pt placed on 3 L. maintained saturations in the 90s for a few minutes. She began to desaturate to 58%. RN was at bedside. Increased O2 up to 10 L. O2 saturations remained at 60% Placed pt on non-rebreather and called respiratory. Pt was placed back on Bi-pap and now at 100% O2. Provider notified. Unable to attend hemodialysis at this time due to the Bi-pap.
--- NOTE | 2024-01-30 11:11 | PM.CNPUL ---
Assessment and Plan Assessment and plan (1) COPD (chronic obstructive pulmonary disease): Code(s): J44.9 - Chronic obstructive pulmonary disease, unspecified Status: Acute Assessment and Plan: Patient with a 34 pack year tobacco history. She carries a diagnosis of COPD and is on albuterol p.r.n.. I have no PFTs. She had no emphysema on her CT scan of the chest from 03/20/2023. 01/30/2024: Patient has no wheezing on exam currently. Plan: I will treat the patient with nebulized albuterol and ipratropium q.6 hours. I do not feel she has having an active COPD exacerbation and I will not start inhaled or systemic steroids. I do not feel the patient has an active pneumonia at this time. Discussed with Jodee Ricci, will follow with you. (2) Acute on chronic respiratory failure with hypoxia and hypercapnia: Code(s): J96.21 - Acute and chronic respiratory failure with hypoxia; J96.22 - Acute and chronic respiratory failure with hypercapnia Status: Acute Assessment and Plan: Patient with acute on chronic hypercarbic and hypoxemic respiratory failure. Prior etiologies felt to be COPD, congestive heart failure, end-stage renal disease with fluid overload. Currently the patient Has congestion on her chest x-ray, cardiomegaly, small pleural effusions, BNP is greater than 30,000. currently she is on BiPAP rate of 20, pressures 18/6 with 40% FiO2 and a blood gas of 7.21/64/94. 01/30/24: I have changed the patient to noninvasive ventilation mode with the AVAPS mode and adjusted settings to comfort resulting in a rate of 20, tidal volume 500, EPAP 5, minimal inspiratory pressure 6, maximal inspiratory pressure 25, inspiratory time 1.0, rise of 3 and 30%. Patient appears to be tolerating these settings. Plan: Patient is scheduled for emergent dialysis later today. Agree with as aggressive fluid removal as tolerated by her cardiac and renal systems per Nephrology and hospitalist team. I will continue the noninvasive ventilation with the AVAPS mode as above. These are maximal settings and the patient is do not intubate. I will check a blood gas in the morning. I will check an ABG in the morning. History of Present Illness History of Present Illness Consult date: 01/30/24 Chief complaint: Acute hypoxic resp failure, Esrd on HD, Elevated t Narrative: 01/30/2024: This is a new pulmonary consult for hypercarbic and hypoxic respiratory failure. Patient is followed in the Pulmonary Clinic in last seen on 07/03/2023: here is a copy of the note This 88-year-old woman visited the Pulmonary Clinic for a consultation regarding potential COPD. She has multiple health issues and has been frequently admitted to the hospital over the past year. Her medical history includes severe left ventricular diastolic dysfunction, atrial fibrillation, secondary pulmonary hypertension, chronic kidney insufficiency requiring hemodialysis three times weekly, chronic anemia, diabetes mellitus, and mild dementia. She had her last hemodialysis session yesterday. She also has a diagnosis of COPD, but there are no prior pulmonary function test results available. Currently living in a mcc, she was accompanied to the clinic by her caregiver. She uses supplemental oxygen at 2 liters/minute due to chronic hypoxemia. As she has mild dementia and is not a reliable source of information, this report is based on her medical records and details provided by her caregiver. Over the past year, she has been hospitalized several times for hypoxemic hypercapnic failure. Chest imaging and other diagnostic tests reveal that these episodes of hypercapnic respiratory failure coincide with pulmonary edema and bilateral pleural effusions. Her pleural effusions have been chronic and their size has varied, as shown in chest imaging studies. An echocardiogram performed in October of 2022 revealed left ventricular diastolic dysfunction, significant e
--- NOTE | 2024-01-30 13:28 | PCSTNOTE ---
Bedside Swallow Evaluation not completed today 01/29 due to BiPap; not able to complete BSE today. Will attempt tomorrow 01/29.
--- NOTE | 2024-01-30 14:26 | PM.CNNEP ---
Assessment and Plan Assessment and plan (1) End stage renal disease: Code(s): N18.6 - End stage renal disease Status: Chronic Assessment and Plan: HD today continue M/W/F dialysis schedule while hospitalized follow electrolytes, volume status, and clearance (2) Acute on chronic respiratory failure with hypoxia and hypercapnia: Code(s): J96.21 - Acute and chronic respiratory failure with hypoxia; J96.22 - Acute and chronic respiratory failure with hypercapnia Status: Acute Assessment and Plan: suspect due to a combination of CHF, volume overload, and COPD chest x-ray with cardiomegaly and small pleural effusions BNP is greater than 30,000 on BiPAP support fluid removal with HD as tolerated follow respiratory status (3) Anemia: Code(s): D64.9 - Anemia, unspecified Status: Chronic Assessment and Plan: chronic issue/problem partly related to ESRD Epogen with HD PRBC transfusion per protocol follow trend H/H (4) Hypertension: Code(s): I10 - Essential (primary) hypertension Status: Chronic Assessment and Plan: reasonable control continue home medications follow trend of hemodynamics (5) Diabetes: Qualifiers: Diabetes mellitus type: type 2 Diabetes mellitus rn long term care insulin use: without rn long term care use Diabetes mellitus complication status: with kidney complications Diabetes mellitus complication detail: with chronic kidney disease Chronic kidney disease stage: on chronic dialysis Qualified Code(s): E11.22 - Type 2 diabetes mellitus with diabetic chronic kidney disease; N18.6 - End stage renal disease; Z99.2 - Dependence on renal dialysis Code(s): E11.9 - Type 2 diabetes mellitus without complications Status: Chronic Assessment and Plan: follow accuchecks glycemic control per hospitalists I will continue to follow the patient with you while she remains hospitalized and make further recommendations as needed. Thank you for allowing me to participate in the care of this patient. History of Present Illness Reason for Consult Consult date: 01/30/24 Reason for consult: end stage renal disease Chief Complaint Chief complaint: Acute hypoxic resp failure, Esrd on HD, Elevated t History of Present Illness Narrative: A great majority of the information I have obtained is from review of the electronic medical record as well as my personal experience taking care of this patient in the past as well as discussion with the physicians/nurses involved in the patient's care as it is difficult to get a full and complete history from the patient's altered mentation. The patient is an 88-year-old female with multiple medical problems as outlined below who presented to [facility] Emergency Room for further evaluation of shortness of breath. The patient was just recently admitted here for issues related to anemia which required packed red blood cell transfusion and further assessment by GI and was just discharged in the hospital yesterday back to her nursing facility. Apparently, upon return to her nursing facility, her oxygen saturations were in the mid 70s on her normal baseline oxygen requirements. Despite conservative efforts to try improve her oxygenation, this did not seem to work and hence EMS was called with subsequent transport to the emergency room for further assessment. Apparently, EMS admission of nebulizer treatment en route to the ER and the patient required a non-rebreather mask to improve her oxygen saturations. by the time of her arrival to the emergency room, she was still 80% on 4 L of supplemental oxygen. Non-rebreather mask was applied once again with improvement her oxygen saturations but she remained quite lethargic and somnolent with concern for airway protection. An ABG was done which was significant for evidence of CO2 retention. The patient's m[facility] paperwork
--- NOTE | 2024-01-30 14:48 | PCRCNOTE ---
RT attempted to give pt 1400tx, pt not in room, pt is currently in dialysis. Will start treatments at 1999.
[2024-01-30 15:44] LABS: Hematocrit 26.6 % (37.0-47.0); Hemoglobin 7.8 g/dL (12.0-15.0)
--- NOTE | 2024-01-30 16:14 | P.PNCROSS_ITS ---
Event Note Event Note Event Note: Patient seen and assessed by previous provider same day. I followed up with ankit causey who was mildly agitated with the Bipap at time of assessment. Patient had remained on Bipap all night was attempting to transition back NC withe failed attempt. F/U ABG with minimal improvement was scheduled for emergent dialysis for fluid removal, HX of ESRD and dialysis MTF. Patient has had multiple admissions secondary acute on chronic respiratory failure with hypoxia and hypercapnia. Patient is noncompliant with medication and continues to follow with speech therapy due to dysphagia. Saturations in the mid 70s on her normal nasal cannula oxygen at 3 L POA . EMS administered a nebulizer and patient was placed on a non-rebreather mask. In the emergency room saturations on 4 L nasal cannula was 80%. White blood cell count 7.0, hemoglobin 7.8, creatinine 3.90, serum bicarb 27. Eosinophil 6.3%. BNP greater than 30,000, troponin 0.049, influenza, RSV and COVID RT PCR negative. ABG on 4 L nasal cannula 7.25//75. Chest x-ray showed congestion, small pleural effusions and cardiomegaly. Pulmonology was consulted further evaluation recommendations. Care coordination was consulted and after discussion with patient's family they are requesting hospice care, hospice care meeting scheduled tomorrow 01/30 11:00 a.m.. Will resume patient's previous minced and moist renal diet following speech therapy recommendations. Pulmonology switch patient over to AVAPS and plan for follow-up ABG in a.m.
[2024-01-30] MEDS: SODIUM CHLORIDE 0.9% IV 1,000 ML 999 ML IV CONT (16:19)
[2024-01-30] MEDS: EPOETIN ALFA-EPBX 20,000 UNITS/ML VIAL 20000 UNITS IV PUSH (16:23)
[2024-01-30] MEDS: IPRATROPIUM 0.5 MG/ALBUTEROL SULFATE 2.5 MG AMPUL.NEB 3 ML INHALATION (20:35)
[2024-01-30] MEDS: LATANOPROST 0.005% OP SOLN 2.5 ML BTL 1 DROP EACH EYE (22:08)
[2024-01-31] VITALS (29 sets, daily range): BP systolic 105–123; BP diastolic 26–67; PULSE 62–87; RESP 18–27; TEMP 36.4–36.7; O2SAT 91–100
[2024-01-31] MEDS: IPRATROPIUM 0.5 MG/ALBUTEROL SULFATE 2.5 MG AMPUL.NEB 3 ML INHALATION ×4 (02:07→20:01)
[2024-01-31 04:56] LABS: Hematocrit 29.9 % (37.0-47.0); Hemoglobin 8.6 g/dL (12.0-15.0); Mean Corpuscular HGB Conc 28.8 g/dl (32-36); Mean Corpuscular Volume 97.4 fl (80-100); Mean Platelet Volume 10.3 fl (7.4-10.4); Platelet Count Result 282 k/mm3 (150-375); Red Blood Count 3.07 M/mm3 (4.2-5.4); Red Cell Distribution Width 18.6 % (11.5-14.5); White Blood Count 5.6 K/mm3 (4.5-10.0)
[2024-01-31 05:25] LABS: Alanine Aminotransferase 6 U/L (6-35); Albumin Level 3.4 g/dL (3.5-5.1); Alkaline Phosphatase 110 U/L (38-126); Anion Gap 9 mmol/L (4-12); Aspartate Amino Transferase 17 U/L (14-36); Bilirubin,Total 0.3 mg/dL (0.2-1.3); Blood Urea Nitrogen 8 mg/dL (7-17); Calcium 8.6 mg/dL (8.4-10.2); Carbon Dioxide 30 mmol/L (22-30); Chloride 99 mmol/L (98-107); Estimated CRCL calculation 13 ml/min; Estimated Glomerular Filt Rate 16; Glucose 65 mg/dL (65-110); Potassium 3.8 mmol/L (3.4-5.0); Sodium 138 mmol/L (137-145)
[2024-01-31] MEDS: LEVOTHYROXINE SODIUM 100 MCG TABLET PO (06:07)
[2024-01-31] MEDS: LEVOTHYROXINE SODIUM 75 MCG TABLET PO (06:07)
--- NOTE | 2024-01-31 09:07 | PCSTNOTE ---
Please refer to the Bedside Swallow Evaluation in the EMR. Please note, silent aspiration cannot be ruled out at bedside.
[2024-01-31] MEDS: ESCITALOPRAM OXALATE 10 MG TABLET PO (10:01)
[2024-01-31] MEDS: DOCUSATE SODIUM 100 MG CAPSULE PO (10:01)
[2024-01-31] MEDS: amLODIPine BESYLATE 10 MG TABLET PO (10:01)
[2024-01-31] MEDS: MELATONIN 3 MG TABLET PO ×2 (10:01→20:33)
[2024-01-31] MEDS: ATORVASTATIN 20 MG TABLET PO ×2 (10:01→20:32)
[2024-01-31] MEDS: SPIRONOLACTONE 25 MG TABLET PO (10:01)
[2024-01-31] MEDS: busPIRone HCL 5 MG TABLET PO ×2 (10:02→20:33)
[2024-01-31] MEDS: CYANOCOBALAMIN 1,000 MCG TABLET 1000 MCG PO (10:02)
[2024-01-31] MEDS: PANTOPRAZOLE 40 MG TABLET PO (10:02)
[2024-01-31] MEDS: FERROUS SULFATE 325 MG TABLET DR BY MOUTH (10:02)
[2024-01-31] MEDS: lisinopriL 20 MG TABLET PO (10:03)
--- NOTE | 2024-01-31 13:31 | P.PNIM_ITS ---
Progress Note: A&P Assessment and Plan (1) ESRD (end stage renal disease) on dialysis: Code(s): N18.6 - End stage renal disease; Z99.2 - Dependence on renal dialysis Status: Acute Assessment and Plan: * Nephrology consulted * Continue with dialysis MWF * Monitor and replenish electrolytes * Continues cardiac monitoring * Avoid nephrotoxic medications * Pharmacy to dose antibiotics (2) Chronic respiratory failure with hypoxia: Code(s): J96.11 - Chronic respiratory failure with hypoxia Status: Chronic Assessment and Plan: Acute on chronic respiratory failure with hypoxia * Secondary to pulmonary congestion * Chest x-ray: Probable mild pulmonary edema versus chronic interstitial disease. * Health Evaluator consulted * Desaturation in the 60s weaned up BiPAP and then placed on AVAPS * 4L NC post dialysis * supplemental oxygen therapy to maintain oxygen 92% * V/Q intermediate may need CTA prior to dialysis (3) Gastroesophageal reflux disease: Code(s): K21.9 - Gastro-esophageal reflux disease without esophagitis Status: Acute Assessment and Plan: * PPI (4) Compression fx, lumbar spine: Qualifiers: Encounter type: initial encounter Lumbar vertebra fracture level: L3 Qualified Code(s): S32.030A - Wedge compression fracture of third lumbar vertebra, initial encounter for closed fracture Code(s): S32.000A - Wedge compression fracture of unspecified lumbar vertebra, initial encounter for closed fracture Status: Acute Assessment and Plan: * Scott bautista * PT/OT (5) Anemia: Code(s): D64.9 - Anemia, unspecified Status: Acute Assessment and Plan: * Secondary to ESRD * 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 Time Spent With Patient Time with patient: 15 - 25 minutes Subjective Date/time seen: 01/31/24 13:31 Interval history: Admission: Medical Chart This is an 88-year-old female with past medical history significant for end- stage renal disease on hemodialysis, chronic respiratory failure, with hypoxia hypercapnia, hypothyroidism, hypertension, GERD, anemia chronic disease. Patient was brought to the emergency room due to altered mental status and low oxygen saturation and shortness of breath with oxygen saturation in the 70%. In the emergency room patient was found to have oxygen saturation of 80% on oxygen by nasal cannula, obtunded. Patient was placed on BiPAP admitted for further evaluation management and treatment. 01/30/24: Assumed Care Patient seen and assessed by previous provider same day. I followed up with patient who was mildly agitated with the Bipap at time of assessment. Patient had remained on Bipap
--- NOTE | 2024-01-31 13:31 | PM.IMPN ---
Progress Note: A&P Assessment and Plan (1) ESRD (end stage renal disease) on dialysis: Code(s): N18.6 - End stage renal disease; Z99.2 - Dependence on renal dialysis Status: Acute Assessment and Plan: Nephrology consulted Continue with dialysis MWF Monitor and replenish electrolytes Continues cardiac monitoring Avoid nephrotoxic medications Pharmacy to dose antibiotics (2) Chronic respiratory failure with hypoxia: Code(s): J96.11 - Chronic respiratory failure with hypoxia Status: Chronic Assessment and Plan: Acute on chronic respiratory failure with hypoxia Secondary to pulmonary congestion Chest x-ray: Probable mild pulmonary edema versus chronic interstitial disease. Qa Test Lead consulted Desaturation in the 60s weaned up BiPAP and then placed on AVAPS 4L NC post dialysis supplemental oxygen therapy to maintain oxygen 92% V/Q intermediate may need CTA prior to dialysis (3) Gastroesophageal reflux disease: Code(s): K21.9 - Gastro-esophageal reflux disease without esophagitis Status: Acute Assessment and Plan: PPI (4) Compression fx, lumbar spine: Qualifiers: Encounter type: initial encounter Lumbar vertebra fracture level: L3 Qualified Code(s): S32.030A - Wedge compression fracture of third lumbar vertebra, initial encounter for closed fracture Code(s): S32.000A - Wedge compression fracture of unspecified lumbar vertebra, initial encounter for closed fracture Status: Acute Assessment and Plan: Tylenol p.r.n. 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 Time Spent With Patient Time with patient: 15 - 25 minutes Subjective Date/time seen: 01/31/24 13:31 Interval history: Admission: Medical Chart This is an 88-year-old female with past medical history significant for end-stage renal disease on hemodialysis, chronic respiratory failure, with hypoxia hypercapnia, hypothyroidism, hypertension, GERD, anemia chronic disease. Patient was brought to the emergency room due to altered mental status and low oxygen saturation and shortness of breath with oxygen saturation in the 70%. In the emergency room patient was found to have oxygen saturation of 80% on oxygen by nasal cannula, obtunded. Patient was placed on BiPAP admitted for further evaluation management and treatment. 01/30/24: Assumed Care Patient seen and assessed by previous provider same day. I followed up with patient who was mildly agitated with the Bipap at time of assessment. Patient had remained on Bipap all night was attempting to transition back NC withe failed attempt. F/U ABG with minimal improvement was scheduled for emergent dialysis for fluid removal, HX of ESRD and dialysis MTF. Patient has had multiple admissions secondary acute on chronic respiratory failure with hypoxia and hypercapnia. Patient is noncompliant with medication and continues to follow with speech therapy due to dysphagia. Saturations in the mid 70s on her normal nasal cannula oxygen at 3 L POA . EMS administered a nebulizer and patient was placed on a non-rebreather mask. In the emergency room saturations on 4 L nasal cannula was 80%. White blood cell count 7.0, hemoglobin 7.8, creatinine 3.90, serum bicarb 27. Eosinophil 6.3%. BNP greater than 30,000, troponin 0.049, influenza, RSV and COVID RT PCR negative. ABG on 4 L nasal cannula 7.25/67/75. Chest x-ray showed congestion, small pleural effusions and cardiomegaly. Pulmonology was consulted further evaluation recommendations. Nemo vallecilloo
[2024-02-01] VITALS (16 sets, daily range): BP systolic 123–140; BP diastolic 29–36; PULSE 64–74; RESP 16–20; TEMP 36–36.6; O2SAT 97–100
[2024-02-01] MEDS: IPRATROPIUM 0.5 MG/ALBUTEROL SULFATE 2.5 MG AMPUL.NEB 3 ML INHALATION ×3 (02:06→13:38)
[2024-02-01] MEDS: ACETAMINOPHEN 325 MG TABLET 650 MG PO (03:41)
[2024-02-01 04:36] LABS: Hematocrit 29.3 % (37.0-47.0); Hemoglobin 8.5 g/dL (12.0-15.0); Mean Corpuscular Hemoglobin 28.2 pg (26-34); Mean Corpuscular Volume 97.3 fl (80-100); Mean Platelet Volume 10.3 fl (7.4-10.4); Platelet Count Result 281 k/mm3 (150-375); Red Blood Count 3.01 M/mm3 (4.2-5.4); Red Cell Distribution Width 18.4 % (11.5-14.5); White Blood Count 7.6 K/mm3 (4.5-10.0)
[2024-02-01 04:43] LABS: Alanine Aminotransferase 6 U/L (6-35); Albumin Level 3.3 g/dL (3.5-5.1); Alkaline Phosphatase 98 U/L (38-126); Anion Gap 10 mmol/L (4-12); Aspartate Amino Transferase 16 U/L (14-36); Bilirubin,Total 0.3 mg/dL (0.2-1.3); Blood Urea Nitrogen 27 mg/dL (7-17); Calcium 8.8 mg/dL (8.4-10.2); Carbon Dioxide 28 mmol/L (22-30); Chloride 97 mmol/L (98-107); Estimated CRCL calculation 9 ml/min; Estimated Glomerular Filt Rate 11; Glucose 97 mg/dL (65-110); Potassium 4.3 mmol/L (3.4-5.0); Sodium 135 mmol/L (137-145)
[2024-02-01] MEDS: ESCITALOPRAM OXALATE 10 MG TABLET PO (09:17)
[2024-02-01] MEDS: FERROUS SULFATE 325 MG TABLET DR BY MOUTH (09:17)
[2024-02-01] MEDS: PANTOPRAZOLE 40 MG TABLET PO (09:18)
[2024-02-01] MEDS: lisinopriL 20 MG TABLET PO (09:18)
[2024-02-01] MEDS: amLODIPine BESYLATE 10 MG TABLET PO (09:18)
[2024-02-01] MEDS: SPIRONOLACTONE 25 MG TABLET PO (09:18)
[2024-02-01] MEDS: busPIRone HCL 5 MG TABLET PO (09:18)
[2024-02-01] MEDS: CYANOCOBALAMIN 1,000 MCG TABLET 1000 MCG PO (09:18)
[2024-02-01] MEDS: DOCUSATE SODIUM 100 MG CAPSULE PO (09:19)
--- NOTE | 2024-02-01 12:41 | P.DS_ITS ---
DS: Admitting Diagnosis Discharge Date 02/01/2024 Admitting Diagnosis Acute respiratory failure with hypoxia and hypercapnia/ESRD DS: Discharge Diagnosis Discharge Diagnosis (1) ESRD (end stage renal disease) on dialysis: Code(s): N18.6 - End stage renal disease; Z99.2 - Dependence on renal dialysis Status: Acute Assessment and Plan: * Nephrology consulted * Continue with dialysis MWF * Monitor and replenish electrolytes * Continues cardiac monitoring * Avoid nephrotoxic medications * Pharmacy to dose antibiotics (2) Chronic respiratory failure with hypoxia: Code(s): J96.11 - Chronic respiratory failure with hypoxia Status: Chronic Assessment and Plan: Acute on chronic respiratory failure with hypoxia * Secondary to pulmonary congestion * Chest x-ray: Probable mild pulmonary edema versus chronic interstitial disease. * St[employer]down To[employer] Former consulted * Desaturation in the 60s weaned up BiPAP and then placed on AVAPS * 4L NC post dialysis * supplemental oxygen therapy to maintain oxygen 92% * V/Q intermediate may need CTA prior to dialysis (3) Gastroesophageal reflux disease: Code(s): K21.9 - Gastro-esophageal reflux disease without esophagitis Status: Acute Assessment and Plan: * PPI (4) Compression fx, lumbar spine: Qualifiers: Encounter type: initial encounter Lumbar vertebra fracture level: L3 Qualified Code(s): S32.030A - Wedge compression fracture of third lumbar vertebra, initial encounter for closed fracture Code(s): S32.000A - Wedge compression fracture of unspecified lumbar vertebra, initial encounter for closed fracture Status: Acute Assessment and Plan: * Scott bautista * PT/OT (5) Anemia: Code(s): D64.9 - Anemia, unspecified Status: Acute Assessment and Plan: * Secondary to ESRD * 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 DS: Summary Hospital Course Reason for hospitalization: Acute respiratory failure with hypoxia and hypercapnia/ESRD Hospital Course: Admission: Medical Chart This is an 88-year-old female with past medical history significant for end- stage renal disease on hemodialysis, chronic respiratory failure, with hypoxia hypercapnia, hypothyroidism, hypertension, GERD, anemia chronic disease. Patient was brought to the emergency room due to altered mental status and low oxygen saturation and shortness of breath with oxygen saturation in the 70%. In the emergency room patient was found to have oxygen saturation of 80% on oxygen by nasal cannula, obtunded. Patient was placed on BiPAP admitted for further evaluation management and treatment. 01/30/24: Assumed Care
--- NOTE | 2024-02-01 12:41 | PM.DS ---
DS: Admitting Diagnosis Discharge Date 02/01/2024 Admitting Diagnosis Acute respiratory failure with hypoxia and hypercapnia/ESRD DS: Discharge Diagnosis Discharge Diagnosis (1) ESRD (end stage renal disease) on dialysis: Code(s): N18.6 - End stage renal disease; Z99.2 - Dependence on renal dialysis Status: Acute Assessment and Plan: Nephrology consulted Continue with dialysis MWF Monitor and replenish electrolytes Continues cardiac monitoring Avoid nephrotoxic medications Pharmacy to dose antibiotics (2) Chronic respiratory failure with hypoxia: Code(s): J96.11 - Chronic respiratory failure with hypoxia Status: Chronic Assessment and Plan: Acute on chronic respiratory failure with hypoxia Secondary to pulmonary congestion Chest x-ray: Probable mild pulmonary edema versus chronic interstitial disease. Patternator consulted Desaturation in the 60s weaned up BiPAP and then placed on AVAPS 4L NC post dialysis supplemental oxygen therapy to maintain oxygen 92% V/Q intermediate may need CTA prior to dialysis (3) Gastroesophageal reflux disease: Code(s): K21.9 - Gastro-esophageal reflux disease without esophagitis Status: Acute Assessment and Plan: PPI (4) Compression fx, lumbar spine: Qualifiers: Encounter type: initial encounter Lumbar vertebra fracture level: L3 Qualified Code(s): S32.030A - Wedge compression fracture of third lumbar vertebra, initial encounter for closed fracture Code(s): S32.000A - Wedge compression fracture of unspecified lumbar vertebra, initial encounter for closed fracture Status: Acute Assessment and Plan: Tylenol p.r.n. 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 DS: Summary Hospital Course Reason for hospitalization: Acute respiratory failure with hypoxia and hypercapnia/ESRD Hospital Course: Admission: Medical Chart This is an 88-year-old female with past medical history significant for end-stage renal disease on hemodialysis, chronic respiratory failure, with hypoxia hypercapnia, hypothyroidism, hypertension, GERD, anemia chronic disease. Patient was brought to the emergency room due to altered mental status and low oxygen saturation and shortness of breath with oxygen saturation in the 70%. In the emergency room patient was found to have oxygen saturation of 80% on oxygen by nasal cannula, obtunded. Patient was placed on BiPAP admitted for further evaluation management and treatment. 01/30/24: Assumed Care Patient seen and assessed by previous provider same day. I followed up with patient who was mildly agitated with the Bipap at time of assessment. Patient had remained on Bipap all night was attempting to transition back NC withe failed attempt. F/U ABG with minimal improvement was scheduled for emergent dialysis for fluid removal, HX of ESRD and dialysis MTF. Patient has had multiple admissions secondary acute on chronic respiratory failure with hypoxia and hypercapnia. Patient is noncompliant with medication and continues to follow with speech therapy due to dysphagia. Saturations in the mid 70s on her normal nasal cannula oxygen at 3 L POA . EMS administered a nebulizer and patient was placed on a non-rebreather mask. In the emergency room saturations on 4 L nasal cannula was 80%. White blood cell count 7.0, hemoglobin 7.8, creatinine 3.90, serum bicarb 27. Eosinophil 6.3%. BNP greater than 30,000, troponin 0.049, influenza, RSV and COVID RT PCR negative. ABG on 4 L nasal cannula 7.
--- NOTE | 2024-02-01 12:48 | PC.NURSE ---
attempted to call report to [facility], nurse is on lunch break and will return call
--- NOTE | 2024-02-01 14:03 | PC.NURSE ---
report called to chantelle at [facility], will call back with an ambo eta when available
--- NOTE | 2024-02-01 14:39 | PC.NURSE ---
iv removed intact
== END 2024-02-01 15:18 | disposition hospice, home (50) | DRG 291 ==
LOC: ANHED 20:49 → ANHIMU 22:33
PROVIDERS: Emergency Medicine; Internal Medicine Pulmonary Disease; Admitting Provider Internal Medicine; Emergency Provider Physician Assistant; PCP Internal Medicine; Visit Provider Nurse Practitioner Family
DX: I13.2 Hypertensive heart and chronic kidney disease with heart failure and with stage 5 chronic kidney disease, or end stage renal disease (principal); J96.21 Acute and chronic respiratory failure with hypoxia; N18.6 End stage renal disease; J96.22 Acute and chronic respiratory failure with hypercapnia; I50.9 Heart failure, unspecified; I27.20 Pulmonary hypertension, unspecified; J44.9 Chronic obstructive pulmonary disease, unspecified; N25.0 Renal osteodystrophy; D63.1 Anemia in chronic kidney disease; E78.5 Hyperlipidemia, unspecified; E03.9 Hypothyroidism, unspecified; E55.9 Vitamin D deficiency, unspecified; M19.90 Unspecified osteoarthritis, unspecified site; K21.9 Gastro-esophageal reflux disease without esophagitis; H40.9 Unspecified glaucoma; F41.9 Anxiety disorder, unspecified; F17.210 Nicotine dependence, cigarettes, uncomplicated; Z20.822 Contact with and (suspected) exposure to COVID-19; Z99.2 Dependence on renal dialysis; Z99.81 Dependence on supplemental oxygen; Z51.5 Encounter for palliative care
CPT/HCPCS: 36415; 36430; 36600; 71045; 71046; 74176; 78580; 80053; 82104; 82375; 82607; 82728; 82746; 82805; 82948; 83050; 83540; 83550; 83605; 83735; 83880; 84100; 84484; 85014; 85018; 85025; 85027; 85610; 85730; 86706; 86850; 86900; 86901; 86923; 87040; 87340; 87637; 92610; 93005; 94002; 94003; 94640; 96361; 96374; 97161; 99285; A9270; A9540; G0257; G0378; J2003; J2405; J2470; J2704; J7030; J7040; J7050; P9016; Q5105